=== PATIENT | male | born 1945 | race Caucasian/White ===

== ENCOUNTER 2022-11-05 20:01 | Emergency (ER) | payer MEDICARE, SELFPAY ==
[2022-11-05 20:06] VITALS: PULSE 82; RESP 18; TEMP 36.8; O2SAT 96; BMI 30.2
[2022-11-05 20:11] VITALS: BP 173/97; PULSE 68; RESP 18; O2SAT 99
[2022-11-05 20:16] VITALS: O2SAT 98
--- NOTE | 2022-11-05 20:16 | ECG_ITS ---
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
--- NOTE | 2022-11-05 20:23 | ED_ITS ---
Documented by User: RANDI Cotton 11/05/22 21:02 HPI - General Adult General Chief complaint: Abdominal Pain Stated complaint: INTESTINAL BLOCKAGE Time Seen by Provider: 11/05/22 20:11 Source: patient Mode of arrival: walk-in Limitations: no limitations History of Present Illness HPI narrative: Patient is a 77-year-old male presents to the Emergency Room with abrupt onset abdominal pain. 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 patient notes pain started tonight around 6:50pm lower abdomen similar to prior episodes. States he was able to have a small bowel movement. He has had nausea but no vomiting since. He denies any chest pain or shortness of breath. Related Data Allergies Allergy/AdvReac Type Severity Reaction Status Date / Time ketorolac [From Toradol] Allergy Verified 11/05/22 20:15 piperacillin [From Zosyn] Allergy turns Verified 11/05/22 20:15 purple tazobactam [From Zosyn] Allergy turns Verified 11/05/22 20:15 purple Review of Systems ROS Constitutional Denies: fever or chills Eyes Denies: change in vision or blurry vision Ears, nose, mouth, and throat Denies: throat pain Cardiovascular Denies: shortness of breath when lying down Respiratory Denies: shortness of breath Gastrointestinal Reports: abdominal pain, nausea and belching; Denies: vomiting or coffee grounds in vomit Genitourinary Denies: painful urination, urinary frequency or blood in urine Musculoskeletal Denies: back pain Integumentary/Breast Denies: rash Neurological Denies: headache Psychiatric Denies: anxiety Allergic/Immunologic Denies: hives Exam Narrative Exam Narrative: Nurses notes and vital signs reviewed and patient is not hypoxic. General: The patient appears well and in no apparent distress. noting pain lower abdomen. Skin: Warm, dry, no pallor noted.no evidence of rash, mild nonpitting edema in the lower legs Head: Normocephalic, atraumatic Neck: Supple, trachea mid-line, no tenderness, no lymphadenopathy Eye: Pupils are equal, round and reactive to light, EOMI Ears, Nose, Mouth, and Throat: external exam unremarkable Cardiovascular: Regular Rate and Rhythm Respiratory: Patient is in no distress, no accessory muscle use, lungs are clear to auscultation, no wheezing, rales or rhonchi. Chest Wall: no tenderness Back: non-tender, no CVA tenderness Musculoskeletal: normal ROM, no tenderness, no swelling GI: slightly hyperactive bowel sounds, tenderness lower abdomen, midline surgical incision well-healed with no obvious palpable hernia, no tenderness to palpationin the epigastric area no midline prominent pulsations., no masses appreciated. No rebound, guarding, or rigidity noted. Neurological: A&O x4 Psychiatric: Cooperative Constitutional Vital Signs - 24 hr 11/05/22 20:06 11/05/22 20:16 11/05/22 22:35 Temperature 98.2 F Pulse Rate Pulse Rate [Monitor] 82 Respiratory Rate 18 Blood Pressure Pulse Oximetry 96 98 98 Oxygen Delivery Method Room Air Room Air Room Air 11/05/22 20:11 Temperature Pulse Rate 68 Pulse Rate [Monitor] Respiratory Rate 18 Blood Pressure 173/97 H Pulse Oximetry 99 Oxygen Delivery Method Course Vital Signs Vital signs: Vital Signs Temperature 98.2 F 11/05/22 20:06 Pulse Rate 82 11/05/22 20:06 Respiratory Rate 18 11/05/22 20:06 Pulse Oximetry 96 11/05/22 20:06 Oxygen Delivery Method Room Air 11/05/22 20:06 Temperature 98.2 F 11/05/22 20:06 Pulse Rate 68 11/05/22 20:11 Respiratory Rate 18 11/05/22 20:11 Blood Pressure 173/97 H 11/05/22 20:11 Pulse Oximetry 98 11/05/22 22:35 Oxygen Delivery Method Room Air 11/05/22 22:35 Medical Decision Making MDM Narrative Medical decision making narrative: history of abdominal bowel resection and intermittent obstruction/ileus. Patient presents with acute onset symptoms this evening. Denies fevers or chills. States if he can relax his bowel symptoms sometimes resolve spontaneously. Patient medicated with Valium 2.5 mg, fentanyl 50 mg, Zofran 4 mg IV. Laboratory studies pending and plain-film x-rays obtained. Lab Data Labs: Lab Results 11/05/22 Range/Units 21:07 WBC 8.8 (4.0-11.0) 10^3/uL RBC 3.61 L (4.70-6.10) 10^6/uL Hgb 12.0 L (14.0-18.0) g/dL Hct 34.2 L (42.0-54.0) % MCV 94.7 H (80.0-94.0) fL MCH 33.2 (25.9-34.0) pg MCHC 35.1 (29.9-35.2) g/dL RDW 12.5 (11.0-15.0) % Plt Count 158 (150-450) 10^3/uL MPV 8.7 L (9.5-13.5) fL Neut % (Auto) 82.0 H (43.0-75.0) % Lymph % (Auto) 10.5 L (20.5-60.0) % [place] % (Auto) 5.1 (1.7-12.0) % Eos % (Auto) 1.7 (0.9-7.0) % Baso % (Auto) 0.2 (0.2-2.0) % Neut # (Auto) 7.2 H (1.4-6.5) 10^3/uL Lymph # (Auto) 0.9 L (1.2-3.8) 10^3/uL [place] # (Auto) 0.5 (0.3-0.8) 10^3/uL Eos # (Auto) 0.2 (0.0-0.7) 10^3/uL Baso # (Auto) 0.0 (0.0-0.1) 10^3/uL Sodium 140 (136-145) mmol/L Potassium 4.4 (3.5-5.1) mmol/L Chloride 107 (98-107) mmol/L Carbon Dioxide 21.4 (21.0-32.0) mmol/L Anion Gap 16.0 BUN 41.0 H (7.0-18.0) mg/dL Creatinine 3.18 H (0.70-1.30) mg/dL Est GFR ( Amer) 23 L (>=60) Est GFR (Non-Af Amer) 19 L (>=60) BUN/Creatinine Ratio 12.9 Glucose 178 H (74-106) mg/dL Lactate 1.4 (0.4-2.0) mmol/L Calcium 8.8 (8.5-10.1) mg/dL Total Bilirubin 0.4 (0.2-1.0) mg/dL AST 15 (15-37) U/L ALT 26 (16-63) U/L Troponin I High Sens 8.2 (4.0-76.1) pg/mL Total Protein 6.8 (6.4-8.2) g/dL Albumin 3.6 (3.4-5.0) g/dL Globulin 3.2 g/dL Albumin/Globulin Ratio 1.1 Lipase 47.0 L (73.0-393.0) U/L Discharge Plan Discharge Chief Complaint: Abdominal Pain Clinical Impression: Abdominal pain Instructions: Abdominal Pain (ED) Stand Alone Forms: Portal Instructions Referrals: TAURUS CHANG [Primary Care Provider] - 1 week Follow Up Appointments: follow up with your family doctor in next 2-3 days Documented by User: Paul Blas MD 11/05/22 23:33 HPI - General Adult General Chief complaint: Abdominal Pain Stated complaint: INTESTINAL BLOCKAGE Time Seen by Provider: 11/05/22 20:11 Related Data Allergies Allergy/AdvReac Type Severity Reaction Status Date / Time ketorolac [From Toradol] Allergy Verified 11/05/22 20:15 piperacillin [From Zosyn] Allergy turns Verified 11/05/22 20:15 purple tazobactam [From Zosyn] Allergy turns Verified 11/05/22 20:15 purple Exam Constitutional Vital Signs - 24 hr 11/05/22 20:06 11/05/22 20:16 11/05/22 22:35 Temperature 98.2 F Pulse Rate Pulse Rate [Monitor] 82 Respiratory Rate 18 Blood Pressure Pulse Oximetry 96 98 98 Oxygen Delivery Method Room Air Room Air Room Air 11/05/22 20:11 Temperature Pulse Rate 68 Pulse Rate [Monitor] Respiratory Rate 18 Blood Pressure 173/97 H Pulse Oximetry 99 Oxygen Delivery Method Course Vital Signs Vital signs: Vital Signs Temperature 98.2 F 11/05/22 20:06 Pulse Rate 82 11/05/22 20:06 Respiratory Rate 18 11/05/22 20:06 Pulse Oximetry 96 11/05/22 20:06 Oxygen Delivery Method Room Air 11/05/22 20:06 Temperature 98.2 F 11/05/22 20:06 Pulse Rate 68 11/05/22 20:11 Respiratory Rate 18 11/05/22 20:11 Blood Pressure 173/97 H 11/05/22 20:11 Pulse Oximetry 98 11/05/22 22:35 Oxygen Delivery Method Room Air 11/05/22 22:35 Medical Decision Making Medical Records Medical records narrative: care transferred at change of shift. Patient presented with abdominal pain. CT returned with findings of early vs partial SBO. Patient is feeling better at this time. he is passing gas and no longer has abdominal pain. His abdominal exam is normal and nontender. The problem seems to have resolved during his time in the department. He is discharged home to follow up with his doctor Lab Data Labs: Lab Results 11/05/22 Range/Units 21:07 WBC 8.8 (4.0-11.0) 10^3/uL RBC 3.61 L (4.70-6.10) 10^6/uL Hgb 12.0 L (14.0-18.0) g/dL Hct 34.2 L (42.0-54.0) % MCV 94.7 H (80.0-94.0) fL MCH 33.2 (25.9-34.0) pg MCHC 35.1 (29.9-35.2) g/dL RDW 12.5 (11.0-15.0) % Plt Count 158 (150-450) 10^3/uL MPV 8.7 L (9.5-13.5) fL Neut % (Auto) 82.0 H (43.0-75.0) % Lymph % (Auto) 10.5 L (20.5-60.0) % [place] % (Auto) 5.1 (1.7-12.0) % Eos % (Auto) 1.7 (0.9-7.0) % Baso % (Auto) 0.2 (0.2-2.0) % Neut # (Auto) 7.2 H (1.4-6.5) 10^3/uL Lymph # (Auto) 0.9 L (1.2-3.8) 10^3/uL [place] # (Auto) 0.5 (0.3-0.8) 10^3/uL Eos # (Auto) 0.2 (0.0-0.7) 10^3/uL Baso # (Auto) 0.0 (0.0-0.1) 10^3/uL Sodium 140 (136-145) mmol/L Potassium 4.4 (3.5-5.1) mmol/L Chloride 107 (98-107) mmol/L Carbon Dioxide 21.4 (21.0-32.0) mmol/L Anion Gap 16.0 BUN 41.0 H (7.0-18.0) mg/dL Creatinine 3.18 H (0.70-1.30) mg/dL Est GFR ( Amer) 23 L (>=60) Est GFR (Non-Af Amer) 19 L (>=60) BUN/Creatinine Ratio 12.9 Glucose 178 H (74-106) mg/dL Lactate 1.4 (0.4-2.0) mmol/L Calcium 8.8 (8.5-10.1) mg/dL Total Bilirubin 0.4 (0.2-1.0) mg/dL AST 15 (15-37) U/L ALT 26 (16-63) U/L Troponin I High Sens 8.2 (4.0-76.1) pg/mL Total Protein 6.8 (6.4-8.2) g/dL Albumin 3.6 (3.4-5.0) g/dL Globulin 3.2 g/dL Albumin/Globulin Ratio 1.1 Lipase 47.0 L (73.0-393.0) U/L Discharge Plan Discharge Chief Complaint: Abdominal Pain Clinical Impression: Abdominal pain Instructions: Abdominal Pain (ED) Stand Alone Forms: Portal Instructions Referrals: TAURUS CHANG [Primary Care Provider] - 1 week Follow Up Appointments: follow up with your family doctor in next 2-3 days
--- NOTE | 2022-11-05 21:06 | CT_ITS ---
The [address] [address] Patient Name: EUGENIO CREWS MRN: [id number] date: 1945 Sex: M Assigned Patient Location: ER Current Patient Location: .MAIN Accession/Order Number: [id number] Exam Date: 11/05/2022 21:30 Report Date: 11/05/2022 23:20 At the request of: POPEYE DE JESUS Procedure: CT abdomen pelvis wo con CT abdomen pelvis wo con: 11/05/2022 9:30 PM EDT CLINICAL HISTORY: 77 years old Male with abominable pain history of obstructions. TECHNIQUE: Axial CT images through the abdomen and pelvis are obtained without the intravenous administration of contrast. Coronal and sagittal reformations are also obtained. Dose reduction techniques were achieved by using automated exposure control and/or adjustment of mA and/or kV according to patient size and/or use of iterative reconstruction technique. COMPARISON: CT abdomen pelvis 05/10/2020. FINDINGS: The lung bases are clear with no dependent infiltrate or effusion. Without the use of IV or oral contrast the study is limited by incomplete evaluation of the blood vessels, solid visceral organs and bowel. The spleen and bilateral adrenal glands are unremarkable. Cholecystectomy clips are present with the gallbladder surgically absent. Mild dilatation of the common bile duct is again present 1.1 cm. Atrophic appearance of the pancreas with calcifications at the uncinate process persists, compatible with chronic pancreatitis. The bilateral kidneys are unremarkable with no renal calculi or hydronephrosis. Simple cyst of the right kidney measures 3.6 x 5.7 cm. The bilateral ureters demonstrate no gross abnormality or obstruction. The stomach is incompletely distended and grossly unremarkable. Small bowel anastomoses at the left upper abdomen is present with denervation dilatation with air-fluid leveling. The proximal small bowel demonstrates air-fluid leveling becoming abnormally dilated at the ileum measuring up to 3.7 cm. There is gradual tapering at the right abdomen with nondistention of the distal and terminal ileum. The appendix is visualized without inflammatory change. Colonic anastomoses at the transverse colon is present with mild denervation dilatation. Numerous diverticula of the sigmoid colon are present without focal inflammatory change. Trace free fluid is present in the pelvis. No free air. Fat-containing ventral abdominal wall hernia defect measuring 2 cm in transverse diameter. The bladder appears unremarkable. There is no evidence of aortic aneurysm. No enlarged lymph nodes are seen. The prostate gland is mildly enlarged at 3.5 x 5.4 cm in AP and transverse diameter. No acute compression fracture deformity or suspicious osseous abnormality. Discogenic degenerative change throughout the lumbar spine is present with numerous spinal canal or neural foraminal narrowings as well as facet arthropathy. Posterior disc herniation with severe narrowing at L4-L5 is of concern. Senescent changes of the hips are present with marginal spurrings. IMPRESSION: 1. Gradual abnormal distention of small bowel with air-fluid leveling measuring up to 3.7 cm with tapering at the mid to distal ileum in the right abdomen with nondistended distal and terminal ileum with similar distribution to the prior study, likely early complete versus partial small bowel obstruction. Trace free fluid, no free air. 2. Diverticulosis. 3. Small fat containing ventral hernia. 4. Simple renal cyst on the right. 5. Mild prostamegaly. Correlation with PSA is recommended. 6. Sequela of chronic pancreatitis with calcifications at the uncinate process. 7. Mild dilatation of the common bile duct unchanged likely secondary to cholecystectomy status. 8. Multilevel discogenic degenerative change of the spine with numerous neural foraminal and spinal canal narrowing with concern for herniation L4-L5 with severe spinal canal narrowing. Electronically authenticated by: KADIE KATHLEEN Date: 11/05/2022 23:20
[2022-11-05] MEDS: FENTANYL CITRATE/PF 100 MCG/2 ML VIAL 50 MCG IV (21:11)
[2022-11-05] MEDS: DICYCLOMINE HCL 20 MG/2 ML VIAL IM (21:12)
[2022-11-05] MEDS: ONDANSETRON PF 4 MG/2 ML VIAL IV (21:12)
[2022-11-05] MEDS: DIAZEPAM 5 MG/ML - 2 ML INJ SYRINGE 2.5 MG IV (21:12)
[2022-11-05] MEDS: 0.9 % SODIUM CHLORIDE 500 ML 999 ML IV (21:13)
[2022-11-05 21:17] LABS: Basophils Percent Auto 0.2 % (0.2-2.0); Eosinophils Absolute Auto 0.2 10^3/uL (0.0-0.7); Eosinophils Percent Auto 1.7 % (0.9-7.0); Hematocrit 34.2 % (42.0-54.0); Immature Granulocytes Abs Auto 0.04 10^3/uL (0.00-0.03); Immature Granulocytes Pct Auto 0.5 % (0.0-0.5); Lymphocytes Absolute Auto 0.9 10^3/uL (1.2-3.8); Lymphocytes Percent Auto 10.5 % (20.5-60.0); Mean Corpuscular HGB Conc 35.1 g/dL (29.9-35.2); Mean Corpuscular Hemoglobin 33.2 pg (25.9-34.0); Mean Corpuscular Volume 94.7 fL (80.0-94.0); Mean Platelet Volume 8.7 fL (9.5-13.5); Monocytes Absolute Auto 0.5 10^3/uL (0.3-0.8); Monocytes Percent Auto 5.1 % (1.7-12.0); Neutrophils Absolute Auto 7.2 10^3/uL (1.4-6.5); Platelet Count 158 10^3/uL (150-450); Red Blood Count 3.61 10^6/uL (4.70-6.10); Red Cell Distribution Width 12.5 % (11.0-15.0); White Blood Count 8.8 10^3/uL (4.0-11.0)
[2022-11-05 21:46] LABS: Lactate/Lactic Acid 1.4 mmol/L (0.4-2.0)
[2022-11-05 21:53] LABS: Alanine Aminotransferase 26 U/L (16-63); Albumin Globulin Ratio 1.1; Albumin Level 3.6 g/dL (3.4-5.0); Alkaline Phosphatase 111 U/L (46-116); Aspartate Amino Transferase 15 U/L (15-37); BUN Creatinine Ratio 12.9; Bilirubin Total 0.4 mg/dL (0.2-1.0); Calcium 8.8 mg/dL (8.5-10.1); Carbon Dioxide 21.4 mmol/L (21.0-32.0); Chloride 107 mmol/L (98-107); Estimated GFR (African America 23 (>=60); Estimated GFR (Non-African Ame 19 (>=60); Globulin 3.2 g/dL; Glucose 178 mg/dL (74-106); Potassium 4.4 mmol/L (3.5-5.1); Sodium 140 mmol/L (136-145); Total Protein 6.8 g/dL (6.4-8.2); Troponin I High Sensitivity 8.2 pg/mL (4.0-76.1)
[2022-11-05 22:35] VITALS: O2SAT 98
[2022-11-06] MEDS: HEPARIN SODIUM (PORCINE) PF LOCK FLUSH 500 UNIT/5 ML SYRINGE IV (00:15)
[2022-11-06 00:27] VITALS: O2SAT 99
--- NOTE | 2022-11-06 00:29 | PC.NURSE ---
Flushed with heparin before discontinued
[2022-11-06 00:30] VITALS: PULSE 76; RESP 16; O2SAT 99
== END 2022-11-06 00:32 | disposition home or self-care (01) ==
PROVIDERS: Personal Emergency Response Attendant; Emergency Provider Internal Medicine; PCP Internal Medicine
DX: R10.30 Lower abdominal pain, unspecified (principal)
CPT/HCPCS: 36415; 74176; 80053; 81001; 83605; 83690; 84484; 85025; 93005; 96372; 96374; 96375; 99285; J0500

== ENCOUNTER 2022-11-29 07:26 | Outpatient (OUT) | payer MEDICARE, SELFPAY ==
[2022-11-29 07:51] VITALS: BP 145/80; PULSE 80; RESP 20; TEMP 36.6; O2SAT 97
[2022-11-29] MEDS: HEPARIN SODIUM (PORCINE) PF LOCK FLUSH 500 UNIT/5 ML SYRINGE IV (08:20)
--- NOTE | 2022-11-29 08:51 | PC.NURSE ---
0751: Pt. to [facility] amb. per self. Seated in recliner. VSS. Using sterile technique, #19 gauge Flaherty needle used to access left ant. chest port. Flushes easily without redness or edema. Unable to aspirate blood after multiple saline flushes. 1 ml Heparin used and instilled into port. Allowed to dwell for approximately 3minutes. Unable to aspirate blood. Flaherty needle removed, port de-accessed. Using sterile technique, another #19 gauge Flaherty needle used to access port. Flushes easily, unable to aspirate blood. Pt. to supine position, left arm raised, head turned and instructed pt. to cough. No blood return with aspiration. Re-positioned needle under skin, no blood return with aspiration. Port de-accessed. No bleeding to site. Pt. relays leaving for vacation and will come back to try again in several weeks. Port site without edema. Slight bleeding to site. Covered with sterile 2x2. 0811: Pt d/c'd amb to home
== END 2022-11-29 07:27 | disposition home or self-care (01) ==
LOC: INF 07:28
PROVIDERS: PCP Internal Medicine; Visit Provider Internal Medicine
DX: Z45.2 Encounter for adjustment and management of vascular access device (principal)
CPT/HCPCS: G0463

== ENCOUNTER 2022-12-13 15:55 | Outpatient (OUT) | payer MEDICARE, SELFPAY ==
[2022-12-13] MEDS: HEPARIN SODIUM (PORCINE) PF LOCK FLUSH 500 UNIT/5 ML SYRINGE IV (16:00)
--- NOTE | 2022-12-13 16:23 | PC.NURSE ---
1553: Pt. to [facility] amb. for unscheduled port flush. Seated in recliner. Using sterile technique, #19 gauge Flaherty needle used to access left ant. chest port. Flushes easily with no visible edema, unable to aspirate blood after multiple flushes and re-positioning of Flaherty. Port de-accessed. Using sterile technique, #20 gauge Flaherty needle used to access port. Flushes easily, but unable to aspirate blood. 200 units Hepain instilled into port and allowed to dwell for 10minutes. 1615: Unable to aspirate blood. Port de-accessed. Trace bleeding from site. Covered with cottonball and tape. Pt. tolerated with minimal c/o. Informed pt. this RN will notify Dr. Chacon situation, pt relays understanding. Pt. d/c'd to home amb. 1616: Dr. Chacon's office notified of unable to aspirate from patient's port, speaker relays she will inform Dr. Chacon.
== END 2022-12-13 15:56 | disposition home or self-care (01) ==
LOC: INF 15:58
PROVIDERS: PCP Internal Medicine; Visit Provider Internal Medicine
DX: Z45.2 Encounter for adjustment and management of vascular access device (principal)
CPT/HCPCS: G0463

== ENCOUNTER 2023-03-02 10:50 | Outpatient (OUT) | payer MEDICARE, SELFPAY ==
[2023-03-02 11:11] LABS: SARS-CoV-2 Ag NEGATIVE (NEGATIVE)
[2023-03-02 15:54] LABS: SARS-CoV-2 NAA DETECTED (NOT DETECTE)
== END 2023-03-02 10:51 | disposition home or self-care (01) ==
LOC: LAB 10:53
PROVIDERS: PCP Internal Medicine; Visit Provider Internal Medicine
DX: U07.1 COVID-19 (principal)
CPT/HCPCS: 87635; 87811; U0003

== ENCOUNTER 2023-03-28 06:58 | Outpatient (OUT) | payer MEDICARE, SELFPAY ==
[2023-03-28 07:15] LABS: Basophils Percent Auto 0.3 % (0.2-2.0); Eosinophils Absolute Auto 0.2 10^3/uL (0.0-0.7); Eosinophils Percent Auto 2.8 % (0.9-7.0); Hematocrit 33.5 % (42.0-54.0); Hemoglobin 11.5 g/dL (14.0-18.0); Immature Granulocytes Abs Auto 0.02 10^3/uL (0.00-0.03); Immature Granulocytes Pct Auto 0.3 % (0.0-0.5); Lymphocytes Absolute Auto 1.2 10^3/uL (1.2-3.8); Lymphocytes Percent Auto 20.3 % (20.5-60.0); Mean Corpuscular HGB Conc 34.3 g/dL (29.9-35.2); Mean Corpuscular Hemoglobin 32.7 pg (25.9-34.0); Mean Corpuscular Volume 95.2 fL (80.0-94.0); Mean Platelet Volume 9.2 fL (9.5-13.5); Monocytes Absolute Auto 0.5 10^3/uL (0.3-0.8); Monocytes Percent Auto 9.2 % (1.7-12.0); Neutrophils Absolute Auto 3.9 10^3/uL (1.4-6.5); Neutrophils Percent Auto 67.1 % (43.0-75.0); Platelet Count 146 10^3/uL (150-450); Red Blood Count 3.52 10^6/uL (4.70-6.10); Red Cell Distribution Width 12.5 % (11.0-15.0); White Blood Count 5.8 10^3/uL (4.0-11.0)
[2023-03-28 08:09] LABS: Estimated Average Glucose 157 mg/dL; Glycohemoglobin A1C 7.1 % (4.5-6.2)
[2023-03-28 08:13] LABS: Anion Gap 15.9; BUN Creatinine Ratio 13.9; Calcium 8.1 mg/dL (8.5-10.1); Carbon Dioxide 21.2 mmol/L (21.0-32.0); Chloride 106 mmol/L (98-107); Chol HDL Ratio 3.1; Cholesterol 119 mg/dL (<=200); Estimated GFR (African America 24 (>=60); Estimated GFR (Non-African Ame 20 (>=60); Glucose 134 mg/dL (74-106); HDL Cholesterol 39 mg/dL (40-60); Potassium 4.1 mmol/L (3.5-5.1); Sodium 139 mmol/L (136-145); Triglycerides 165 mg/dL (<=150)
[2023-03-28 08:28] LABS: Prostate Specific Antigen Scrn 2.64 ng/mL (<=4.00)
== END 2023-03-28 06:59 | disposition home or self-care (01) ==
LOC: LAB 07:00
PROVIDERS: PCP Internal Medicine; Visit Provider Internal Medicine
DX: E78.2 Mixed hyperlipidemia (principal); I10 Essential (primary) hypertension; Z12.5 Encounter for screening for malignant neoplasm of prostate; D51.0 Vitamin B12 deficiency anemia due to intrinsic factor deficiency; E11.65 Type 2 diabetes mellitus with hyperglycemia
CPT/HCPCS: 36415; 80048; 80061; 83036; 85025; G0103

== ENCOUNTER 2023-08-06 08:00 | Outpatient (OUT) | payer MEDICARE, SELFPAY ==
--- OUTSIDE RECORDS SUMMARY | 2023-08-06 08:04 | XMS_ITS | CCD ---
Author Name Unknown Address [address] [place] [address] Organization [facility] Care Team Providers Care Clinical Transformation Specialist Name Role Phone Gerry Barton DO Primary Care Provider MARYJO KIDD Referring Unavailable GERRY BARTON Primary Care Unavailable KENDALL HONEYCUTT Attending Unavailable KINGS JOHNS Referring Unavailable GERRY BARTON Primary Care Unavailable YOLY DAVID Referring Unavailable GERRY BARTON Primary Care Unavailable GERRY BARTON Primary Care Physician [phone] MD Jenaro GUEVARA Attending Unavailable Ball, Gerry Unavailable BERNARDO, DR CONDON Primary Care Unavailable BALL, DR CONDON Consulting Unavailable BALL, DR CONDON Admitting Unavailable BALL, DR CONDON Attending Unavailable GRILLIS ., DR BLADIMIR Mann Attending Unavaila ble GRILLIS ., DR BLADIMIR Mann Admitting Unavaila ble GRILLIS ., DR BLADIMIR Mann Consulting Unavaila ble BALL, DR CONDON Primary Care Unavailable [place], DR ALONZO Hernandez Consulting Unavailable BALL, DR CONDON Primary Care Unavailable REQUEST, DR CHICAS LISTED Attending Unavaila ble BALL, DR CONDON Consulting Unavailable REQUEST, DR CHICAS LISTED Admitting Unavaila ble BALL, DR CONDON Consulting Unavailable BALL, DR CONDON Attending Unavailable BALL, DR CONDON Admitting Unavailable BALL, DR CONDON Primary Care Unavailable BALL, DR CONDON Consulting Unavailable BALL, DR CONDON Attending Unavailable BALL, DR CONDON Admitting Unavailable BALL, DR CONDON Primary Care Unavailable GRILLIS ., DR BLADIMIR Mann Attending Unavaila ble GRILLIS ., DR BLADIMIR Mann Admitting Unavaila ble BALL, DR CONDON Primary Care Unavailable BALL, DR CONDON Consulting Unavailable BALL, DR CONDON Admitting Unavailable BALL, DR CONDON Primary Care Unavailable BALL, DR CONDON Attending Unavailable BALL, DR CONDON Consulting Unavailable BALL, DR CONDON Admitting Unavailable BALL, DR CONDON Primary Care Unavailable BALL, DR CONDON Attending Unavailable BALL, DR CONDON Primary Care Unavailable BALL, DR CONDON Consulting Unavailable BALL, DR CONDON Admitting Unavailable BALL, DR CONDON Attending Unavailable BALL, DR CONDON Primary Care Unavailable GUEVARA ., DR DUCKWORTH Consulting Unavailable GUEVARA ., DR DUCKWORTH Attending Unavailable GUEVARA ., DR DUCKWORTH Admitting Unavailable BALL, DR CONDON Primary Care Unavailable WEST, DR ALONZO Hernandez Consulting Unavailable OLIVEROS, DR ALEXX Mann Attending Unavailable OLIVEROS, DR ALEXX Mann Admitting Unavailable OLIVEROS, DR ALEXX Mann Consulting Unavailable BALL, DR CONDON Consulting Unavailable BALL, DR CONDON Admitting Unavailable BALL, DR CONDON Attending Unavailable BALL, DR CONDON Primary Care Unavailable WEST, DR ALONZO Hernandez Consulting Unavailable HIGHLANDER, MARCELLA Araya Attending Unavailable HIGHLANDER, MARCELLA Araya Admitting Unavailable BALL, DR CONDON Primary Care Unavailable HIGHLANDER, MARCELLA Araya Consulting Unavailable BALL, DR CONDON Consulting Unavailable BALL, DR CONDON Attending Unavailable BALL, DR CONDON Admitting Unavailable BALL, DR CONDON Primary Care Unavailable GRILLIS ., DR BLADIMIR Mann Attending Unavaila ble GRILLIS ., DR BLADIMIR Mann Admitting Unavaila ble GRILLIS ., DR BLADIMIR Mann Consulting Unavaila ble BALL, DR CONDON Primary Care Unavailable MCCORNACK, QUIRINO Consulting Unavailable BALL, DR CONDON Consulting Unavailable BALL, DR CONDON Attending Unavailable BALL, DR CONDON Admitting Unavailable BALL, DR CONDON Primary Care Unavailable BALL, DR CONDON Admitting Unavailable BALL, DR CONDON Attending Unavailable BALL, DR CONDON Primary Care Unavailable BALL, DR CONDON Consulting Unavailable BALL, DR CONDON Attending Unavailable BALL, DR CONDON Admitting Unavailable BALL, DR CONDON Primary Care Unavailable BALL, DR CONDON Consulting Unavailable BALL, DR CONDON Admitting Unavailable BALL, DR CONDON Attending Unavailable BALL, DR CONDON Primary Care Unavailable PETITTTALIB Centeno Attending Unavailable DAVID, ROCKY Mann Attending Unavailable Allergies Allergy Classification Reported Allergen(s) Allergy Type Date of Onset Reaction(s) Facility (6 sources) Ketorolac; Translations: [KETOROLAC] Drug Allergy 09-24-19 21 Unknown, Unknown (qualifier value) [facility] (13 sources) Piperacillin / tazobactam; Translations: [PIPERACILLIN-TA ZOBACTAM] Drug Allergy 09-15-19 10 Rash [facility] (2 sources) Vorinostat; Translations: [vorinostat] Drug Allergy Unknown (qualifier value) [facility] (2 sources) Ketorolac; Translations: [Toradol] Drug Allergy [facility] Repository (1 source) Piperacillin / tazobactam Drug Allergy 01-15-20 16 [facility] (1 source) tazobactam Drug Allergy [facility] (3 sources) patient allergy list reviewed by nurse or physicia Propensity to adverse reactions 12-26-19 19 Comment:Done Takeacoder Other (3 sources) Allergies Reconciled Propensity to adverse reactions Unknown Takeacoder Other Medications Current Medications Medication Drug Class(es) Dates Sig (Normalized) Sig (Original) Aspir-81 81 MG (14 sources) take 1 tablet by mouth three times weekly Aspir-81 81 MG 1 tablet Orally THREE TIMES A WEEK for 30 day(s) Active aspirin 81 mg delayed release oral tablet (6 sources) Platelet Aggregation Inhibitor, Nonsteroidal Anti-inflammatory Drug Start: 07-25-2023 take 81 mg by mouth three times weekly Aspirin Active 81 MG PO 3 Times a week July 25, 2023 12:00am Start: 11-27-2019 aspirin Refill s(s) 0 Start Date: 11/27/19 Status: Ordered take 1 tablet by gonzalo once daily, then take 1 tablet by mouth every other day aspirin, enteric coated (ASPIRIN, ENTERIC COATED) 81 mg EC tablet Take 81 mg by mouth once daily. Takes every other day 0 Active Comment on above: Take 81 mg by mouth once daily. Takes every other day atorvastatin 10 mg oral tablet (15 sources) HMG-CoA Reductase Inhibitor Start: take 10 mg by mouth once daily at bedtime Atorvastatin Active 10 MG PO Daily at bedtime July 25, 2023 12:00am Start: 11-27-2019 atorvastatin O ral, Daily, Refills(s) 0 Start Date: 11/27/19 Status: Ordered Atorvastatin Stefan cium 10 MG TAKE 1 (ONE) TABLET DAILY IN EVENING Active Comment on above: Take 10 mg by mouth once daily. carvedilol 6.25 mg oral tablet (15 sources) alpha-Adrenergic Luli, beta-Adrenergic Luli Start: 07-25-2023 take 6.25 mg by mouth twice daily Carvedilol Active 6.25 MG PO Twice daily July 25, 2023 12:00am Start: 11-27-2019 carvedilol Ora l, Refills(s) 0 Start Date: 11/27/19 Status: Ordered Start: 06-15-2014 take 1 tablet by gonzalo th twice daily at mealtime carvedilol (COREG) 6.25 mg tablet Take 6.25 mg by mouth twice daily with meals. 0 06/15/2014 Active Comment on above: Take 6.25 mg by mout h twice daily with meals. Contour Next Test - (14 sources) Contour Next Charlee t - USE 1 STRIP TO TEST BLOOD SUGAR AT HOME 3 TIMES A DAY for 30 Active dutasteride 0.5 mg oral capsule (11 sources) 5-alpha Reductase Inhibitor take 1 capsule by mouth every twenty-four hours Avodart 0.5 MG 1 capsule Orally Once a day for 30 day(s) Active glimepiride 4 mg oral tablet (20 sources) Sulfonylurea Start: 4 take 4 mg by mouth once daily Glimepiride Active 4 MG PO Daily July 25, 2023 12:00am Start: 11-27-2019 glimepiride Or al, Daily, Refills(s) 0 Start Date: 11/27/19 Status: Ordered Start: 06-19-2012 take 1 tablet by gonzalo th twice daily at mealtime GLIMEPIRIDE 4 mg tablet Take 4 mg by mouth twice daily with meals. 0 06/19/2012 Active take 1 tablet by gonzalo th every twenty-four hours Glimepiride 4 MG 1 tablet Orally Once a day Active Glimepiride 4 MG TAKE 2 TABLETS BY MOUTH EVERY MORNING 30 MINUTES PRIOR TO BREAKFAST for 90 Active Comment on above: Take 4 mg by mouth t wice daily with meals. 3 ml insulin detemir 100 unt/ml pen injector (17 sources) Insulin Analog Start: 07-07-2022 Levemir FlexPen 100 UNIT/ML 12 units Subcutaneous Once daily Jul, Active Start: 11-27-2019 Levemir SubCut aneous, Refills(s) 0 Start Date: 11/27/19 Status: Ordered Start: 09-07-2015 LEVEMIR FLEXTO UCH 100 unit/mL (3 mL) inpn injection 12 Units. 0 09/07/2015 Active Comment on above: 12 Units. Levemir FlexPen 100 UNIT/ML (2 sources) Start: 3 Levemir FlexPen 100 UNIT/ML 12 units Subcutaneous Once daily for 90 days Jul, Active linagliptin 5 mg oral tablet (12 sources) Dipeptidyl Peptidase 4 Inhibitor Start: 4 take 1 tablet by mouth once daily Linagliptin (Tradjenta) 5 mg tablet Active 5 MG PO Daily July 25, 2023 12:00am Start: 11-27-2019 take 1 mg by mouth once daily Tradjenta mg, Oral, Daily, Refills(s) 0 Start Date: 11/27/19 Status: Ordered Start: 06-15-2013 take 1 tablet by gonzalo th once daily Tradjenta 5 mg oral tablet 30 EA, TAKE 1 TABLET BY MOUTH EVERY DAY, Refills(s) 0 Start Date: 04/03/22 Status: Ordered Comment on above: 5 mg once daily. lisinopril 2.5 mg oral tablet (15 sources) Angiotensin Converting Enzyme Inhibitor Start: 07-25-2023 take 2.5 mg by mouth once daily Lisinopril Active 2.5 MG PO Daily July 25, 2023 12:00am Start: 11-27-2019 lisinopril Ora l, Daily, Refills(s) 0 Start Date: 11/27/19 Status: Ordered take 1 tablet by gonzalo th once daily Lisinopril 2.5 MG TAKE 1 TABLET BY MOUTH EVERY DAY Active Comment on above: Take 2.5 mg by mouth once daily. Metformin & Diet Manage Prod 500 MG (11 sources) Metformin & Diet Manage Prod 500 MG as directed Orally TWICE DAILY Active molnupiravir 200 MG Oral Capsule [Lagevrio] (2 sources) Start: 3 take 4 capsules by mouth every twelve hours Molnupiravir 200 MG 4 capsules Orally every 12 hrs for 5 days Feb, Active Completed/Discontinued Medications Medication Drug Class(es) Dates Sig (Normalized) Sig (Original) B-12 - up to 1000 mcg (20 sources) Start: 07-03-2023 B-12 - up to 1000 mcg Jun, 1000 mcg Start: 03-13-2023 B-12 - up to 1 000 mcg Mar, 1000 mcg Start: 02-06-2023 B-12 - up to 1 000 mcg Feb, 1000 mcg Start: 01-01-2023 B-12 - up to 1 000 mcg Dec, 1000 mcg Start: 11-27-2022 B-12 - up to 1 000 mcg Nov, 1000 mcg Start: 08-28-2022 B-12 - up to 1 000 mcg Aug, 1000 mcg Start: 07-27-2022 B-12 - up to 1 000 mcg Jul, 1000 mcg Start: 06-26-2022 B-12 - up to 1 000 mcg Jun, 1000 mcg Problems Active Problems Problem Classification Problem Date Documented Date Episodic/Chronic Acquired foot deformities (8 sources) Acquired hammer toe of left foot; Translations: [Other hammer toe(s) (acquired), left foot] Chronic Acquired foot deformities (3 sources) Talipes planus; Translations: [Flat foot [pes 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), left foot] Episodic Acute bronchitis (4 sources) Acute bronchitis; Translations: [Acute bronchitis, unspecified] Onset: 02-23-2015 Episodic Anxiety disorders (6 sources) Posttraumatic stress disorder; Translations: [Posttraumatic stress disorder] Onset: 01-08-2017 Chronic Chronic kidney disease (7 sources) Chronic kidney disease, unspecified; Translations: [Chronic kidney disease stage 3] Onset: 12-17-2015 Chronic Chronic ulcer of skin (12 sources) Non-pressure chronic ulcer of unspecified part of right lower leg limited to breakdown of skin; Translations: [Chronic ulcer of foot] Onset: 09-09-2018 Resolved: 05-24-2020 Chronic Coagulation and hemorrhagic disorders (1 source) Blood coagulation disorder 12-01-2019 Chronic Complication of device; implant or graft (4 sources) Other specified complication of vascular prosthetic devices, implants and grafts, initial encounter; Translations: [OTH COMP VASC PROSTH DEV GRAFT INIT] Onset: 03-03-2022 Chronic Complication of device; implant or graft (6 sources) Blocked central line; Translations: [Other mechanical complication of infusion catheter, initial encounter] Onset: 02-21-2022 Episodic Deficiency and other anemia (4 sources) Acquired pancytopenia; Translations: [Other drug-induced pancytopenia] Onset: 09-07-2009 Chronic Deficiency and other anemia (16 sources) Pernicious anemia; Translations: [Vitamin B12 deficiency anemia due to intrinsic factor deficiency] 07-25-2023 Episodic Deficiency and other anemia (10 sources) Vitamin B12 deficiency anemia due to intrinsic factor deficiency; Translations: [Pernicious anemia] Episodic Diabetes mellitus with complications (20 sources) Type 2 diabetes mellitus with diabetic chronic kidney disease; Translations: [Hyperglycemia due to type 2 diabetes mellitus] Onset: 06-26-2016 Chronic Diabetes mellitus without complication (13 sources) Diabetes mellitus; Translations: [Type 2 diabetes mellitus without complications] Onset: 05-02-2019 05-05-2019 Chronic Diabetes mellitus without complication (1 source) Glycosuria 12-01-2019 Episodic Diseases of white blood cells (4 sources) Neutropenia; Translations: [Neutropenia, unspecified] Onset: 09-07-2009 Chronic Disorders of lipid metabolism (19 sources) Mixed hyperlipidemia; Translations: [Hyperlipidemia, unspecified] Onset: 11-23-2021 Chronic Essential hypertension (18 sources) Essential (primary) hypertension; Translations: [Essential hypertension] Onset: 11-23-2021 Chronic Genitourinary symptoms and ill-defined conditions (1 source) Proteinuria 12-01-2019 Episodic Hyperplasia of prostate (17 sources) Benign prostatic hyperplasia; Translations: [Benign prostatic hyperplasia without lower urinary tract symptoms] Onset: 09-21-2009 Chronic Hypertension with complications and secondary hypertension (1 source) Hypertensive chronic kidney disease with stage 1 through stage 4 chronic kidney disease, or unspecified chronic kidney disease; Translations: [HTN CKD W/STAGE 1-4 CKD/UNS CKD] Onset: 04-10-2022 Chronic Immunizations and screening for infectious disease (3 sources) Vaccination given; Translations: [Encounter for immunization] Episodic Intestinal obstruction without hernia (12 sources) Intestinal adhesions [bands], unspecified as to partial versus complete obstruction; Translations: [Intestinal adhesions [bands], with partial obstruction] Onset: 10-20-2016 Episodic Nausea and vomiting (9 sources) Nausea and vomiting; Translations: [Nausea & vomiting] Episodic Non-Hodgkin`s lymphoma (13 sources) Non-Hodgkin's lymphoma (clinical); Translations: [Non-Hodgkin lymphoma, unspecified, unspecified site] Onset: 08-27-2009 Chronic Osteoarthritis (7 sources) Arthritis; Translations: [Osteoarthritis] 12-01-2019 Chronic Other aftercare (5 sources) Encounter for adjustment and management of vascular access device; Translations: [ENC ADJUSTMENT AND MANAGEMENT VAD] Onset: 02-28-2022 Episodic Other aftercare (2 sources) Other machine long goods helper (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; Translations: [OTH SENIOR LIVING CURRENT DRUG THERAPY] Onset: 04-10-2022 Episodic Other aftercare (3 sources) Long-term current use of 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; Translations: [Other half-way (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] Episodic Other aftercare (4 sources) H/O: high risk medication; Translations: [Other machine long goods helper (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] Episodic Other connective tissue disease (1 source) Presence of unspecified orthopedic joint implant; Translations: [Presence of unspecified orthopedic joint implant] Chronic Other connective tissue disease (3 sources) H/O: musculoskeletal disease; Translations: [Personal history of other diseases of the musculoskeletal system and connective tissue] Episodic Other connective tissue disease (5 sources) History of osteomyelitis; Translations: [Personal history of other diseases of the musculoskeletal system and connective tissue] Episodic Other diseases of kidney and ureters (3 sources) Disorder of kidney and/or ureter; Translations: [Disorder of kidney and ureter, unspecified] Episodic Other diseases of veins and lymphatics (3 sources) Venous ulcer of lower extremity due to chronic peripheral venous hypertension; Translations: [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] Chronic Other diseases of veins and lymphatics (8 sources) Peripheral venous insufficiency; Translations: [Venous insufficiency (chronic) (peripheral)] 07-25-2023 Episodic Other diseases of veins and lymphatics (3 sources) Venous insufficiency (chronic) (peripheral); Translations: [Venous (peripheral) insufficiency, unspecified] Episodic Other injuries and conditions due to external causes (3 sources) History of fall; Translations: [History of falling] Episodic Other non-epithelial cancer of skin (20 sources) Basal cell carcinoma of skin of other part of trunk; Translations: [Carcinoma in situ of skin of scalp and neck] Onset: 11-23-2021 Episodic Other non-traumatic joint disorders (4 sources) Charcot's joint, left ankle and foot; Translations: [CHARCOTS JOINT LEFT ANKLE AND FO] Onset: 11-09-2021 Chronic Other non-traumatic joint disorders (11 sources) Arthropathy associated with a neurological disorder; Translations: [Charcot's joint, unspecified ankle and foot] Chronic Other nutritional; endocrine; and metabolic disorders (3 sources) Obese class I; Translations: [Body mass index 33.0-33.9, adult] Onset: 06-04-1959 Chronic Other nutritional; endocrine; and metabolic disorders (3 sources) Simple obesity ; Translations: [Other obesity due to excess calories] Onset: 06-04-1959 Chronic Other nutritional; endocrine; and metabolic disorders (3 sources) Obesity; Translations: [Obesity, unspecified] Chronic Other nutritional; endocrine; and metabolic disorders (10 sources) Body mass index 30+ - obesity; Translations: [Body mass index 30.0-30.9, adult] Onset: 06-04-1959 07-25-2023 Chronic Other nutritional; endocrine; and metabolic disorders (4 sources) Obesity caused by energy imbalance; Translations: [Other obesity due to excess calories] 07-25-2023 Chronic Other nutritional; endocrine; and metabolic disorders (1 source) Other obesity due to excess calories Chronic Other nutritional; endocrine; and metabolic disorders (1 source) Body mass index (BMI) 30.0-30.9, adult Chronic Other screening for suspected conditions (not mental disorders or infectious disease) (16 sources) Raised prostate specific antigen; Translations: [Elevated prostate specific antigen [PSA]] Onset: 03-03-2022 Episodic Other skin disorders (5 sources) Localized swelling, mass and lump, trunk; Translations: [LOCALIZD SWELLING MASS AND LUMP TRUNK] Onset: 02-07-2022 Episodic Other skin disorders (3 sources) Localized swelling, mass and lump, trunk; Translations: [Localized swelling, mass and lump, trunk] Episodic Other skin disorders (4 sources) Chest swelling; Translations: [Localized swelling, mass and lump, trunk] Episodic Peripheral and visceral atherosclerosis (3 sources) 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; Translations: [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, unspecified] Chronic Residual codes; unclassified (1 source) Other transplanted organ and tissue status; Translations: [OTH TRANSPLANTED ORGAN AND TISSUE STS] Onset: 05-18-2022 Chronic Residual codes; unclassified (1 source) Bone marrow transplant status; Translations: [BONE MARROW TRANSPLANT STATUS] Onset: 11-18-2021 Chronic Residual codes; unclassified (3 sources) Preventive procedure; Translations: [Encounter for other specified prophylactic measures] Episodic Unclassified (1 source) Asymptomatic microscopic hematuria 03-28-2021 Unclassified (3 sources) Long-term current use of 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; Translations: [Long-term (current) use of other medications] Onset: 12-06-2015 Past or Other Problems Problem Classification Problem Date Documented Da te Episodic/Chronic Deficiency and other anemia (3 sources) Anemia; Translations: [Anemia, unspecified] Resolved: 12-02-2019 Episodic Fever of unknown origin (4 sources) Fever; Translations: [Fever, unspecified] Onset: 09-07-2009 Episodic Neoplasms of unspecified nature or uncertain behavior (3 sources) Neoplasm of uncertain behavior of skin; Translations: [Neoplasm of uncertain behavior of skin] Onset: 12-25-2018 Episodic Non-Hodgkin`s lymphoma (4 sources) Personal history of non-Hodgkin lymphomas; Translations: [History of malignant lymphoma] Onset: 06-26-2016 Episodic Open wounds of head; neck; and trunk (3 sources) Laceration with foreign body of scalp, subsequent encounter; Translations: [Laceration with foreign body of scalp, subsequent encounter] Onset: 02-01-2018 Episodic Other aftercare (1 source) snf (current) use of oral hypoglycemic drugs; Translations: [WORKDAY MANAGER USE ORAL HYPOGLYCEMIC DX] Onset: 11-23-2021 Episodic Other connective tissue disease (3 sources) Pain in left foot; Translations: [Pain in left foot] Resolved: 05-24-2020 Episodic Other connective tissue disease (3 sources) Tear of right rotator cuff; Translations: [Unspecified rotator cuff tear or rupture of right shoulder, not specified as traumatic] Onset: 02-20-2017 Episodic Other eye disorders (3 sources) Vitreous degeneration; Translations: [Vitreous degeneration, unspecified eye] Resolved: 11-03-2020 Chronic Other non-traumatic joint disorders (3 sources) Arthralgia of the ankle and/or foot; Translations: [Pain in left ankle and joints of left foot] Resolved: 05-24-2020 Episodic Other non-traumatic joint disorders (3 sources) Shoulder joint pain; Translations: [Pain in joint, shoulder region] Onset: 02-09-2017 Episodic Other skin disorders (3 sources) Disorder of the skin and subcutaneous tissue, unspecified; Translations: [DISORDER SKIN AND SUBQ TISSUE UNS] Onset: 11-16-2021 Episodic Other upper respiratory infections (3 sources) Acute sinusitis; Translations: [Acute sinusitis, unspecified] Onset: 02-23-2015 Episodic Residual codes; unclassified (1 source) Acquired absence of other specified parts of digestive tract; Translations: [ACQ ABSENCE OTH PART DIGESTV TRACT] Onset: 11-23-2021 Episodic Viral infection (5 sources) COVID-19; Translations: [COVID-19] Onset: 05-17-2022 Results Test Name Value Interpretation Reference Range Facility [facility] 04-09-2022 Lab Reports [id number] Normal [facility] CBC AUTO DIFFon 04-05-2022 BASO # 0.0 103/ul Normal 0.0-0.[address] [facility] Comment on above: Performed By: #### C BC #### [facility] [address] [address] [address] Dave Duffy Basophils/100 WBC (Bld) 0.2 % Normal 0.2-2.[address] [facility] Comment on above: Performed By: #### C BC #### [facility] [address] [address] [address] Dave Duffy EO # 0.2 103/ul Normal 0.0-0.[address] [facility] Comment on above: Performed By: #### C BC #### [facility] [address] [address] [address] Dave Duffy Eosinophils/100 WBC (Bld) 2.5 % Normal 0.9-7.[address] [facility] Comment on above: Performed By: #### C BC #### [facility] [address] [address] [address] Dave Duffy Erythrocyte distribution width (RBC) [Ratio] 12.3 % Normal 11.0-15.[address] [facility] Comment on above: Performed By: #### C BC #### [facility] [address] [address] [address] Dave Duffy Hematocrit (Bld) [Volume fraction] 32.8 % Critically low 42.0-54.[address] [facility] Comment on above: Performed By: #### C BC #### [facility] [address] [address] [address] Dave Duffy Hemoglobin (Bld) [Mass/Vol] 11.4 g/dL Critically low 14.0-18.[address] [facility] Comment on above: Performed By: #### C BC #### [facility] [address] [place] [address] Dr. Dave Duffy IG # 0.03 10e3/ul Normal 0.00-0.[address] [facility] Comment on above: Performed By: #### C BC #### [facility] [address] [place] [address] Dr. Dave Duffy IG % 0.5 % Normal 0.0-0.[address] [facility] Comment on above: Performed By: #### C BC #### [facility] [address] [place] [address] Dr. Dave Duffy LYMPH # 1.2 103/ul Normal 1.2-3.[address] [facility] Comment on above: Performed By: #### C BC #### [facility] [facility] [address] [place] [address] Dr. Dave Duffy Lymphocytes/100 WBC (Bld) 18.9 % Critically low 20.5-60.[address] [facility] Comment on above: Performed By: #### C BC #### [facility] [address] [place] [address] Dr. Dave Duffy MANUAL DIFF REQ NO Normal [facility] Comment on above: Performed By: #### C BC #### [facility] [address] [place] [address] Dr. Dave Duffy MCH (RBC) [Entitic mass] 32.8 pg Normal 25.9-34.[address] [facility] Comment on above: Performed By: #### C BC #### [facility] [address] [place] [address] Dr. Dave Duffy MCHC (RBC) [Mass/Vol] 34.8 g/dL Normal 29.9-35.[address] [facility] Comment on above: Performed By: #### C BC #### [facility] [address] [place] [address] Dr. Dave Duffy MCV (RBC) [Entitic vol] 94.3 fL Critically high 80.0-94.[address] [facility] Comment on above: Performed By: #### C BC #### [facility] [address] [address] [address] Dave Duffy MONO # 0.5 103/ul Normal 0.3-0.8 [facility] Comment on above: Performed By: #### C BC #### [facility] [address] [address] [address] Dave Duffy Monocytes/100 WBC (Bld) 8.9 % Normal 1.7-12.[address] [facility] Comment on above: Performed By: #### C BC #### [facility] [address] [address] [address] Dave Duffy NEUT # 4.2 103/ul Normal 1.4-6.[address] [facility] Comment on above: Performed By: #### C BC #### [facility] [address] [address] [address] Dave Duffy Neutrophils/100 WBC (Bld) 69.0 % Normal 43.0-75.[address] [facility] Comment on above: Performed By: #### C BC #### [facility] [address] [address] [address] Dave Duffy Platelet mean volume (Bld) [Entitic vol] 8.7 fL Critically low 9.5-13.[address] [facility] Comment on above: Performed By: #### C BC #### [facility] [address] [address] [address] Dave Duffy PLT 166 103/ul Normal 150-450 [facility] Comment on above: Performed By: #### C BC #### [facility] [address] [address] [address] Dave Duffy RBC 3.48 106/ul Critically low 4.70-6.10 [facility] Comment on above: Performed By: #### C BC #### [facility] [address] [address] [address] Dave Duffy WBC 6.1 103/ul Normal 4.0-11.0 [facility] Comment on above: Performed By: #### C BC #### [facility] [address] [address] [address] Dave Duffy LIPID PROFILEon 04-05-2022 CHOL-HDL RATIO NORM SEE BELOW Normal [facility] Comment on above: Result Comment: 3.3 - 4.4 LOW RISK 4.4 - 7.1 AVERAGE RISK 7.1 - 11.0 MODERATE RISK >11.0 HIGH RISK Performed By: #### C MP, LIPID #### [facility] [address] [address] [address] Dave Duffy Cholesterol [Mass/Vol] 106 mg/dL Normal <=[address] [facility] Comment on above: Performed By: #### C MP, LIPID #### [facility] [address] [place] [address] Dr. Dave Duffy Cholesterol in HDL [Mass/Vol] 36 mg/dL Critically low 40-[address] [facility] Comment on above: Performed By: #### C MP, LIPID #### [facility] [address] [place] [address] Dr. Dave Duffy Cholesterol in LDL [Mass/Vol] 43.4 mg/dL Normal [facility] Comment on above: Performed By: #### C MP, LIPID #### [facility] [address] [place] [address] Dr. Dave Duffy Cholesterol.total/Cho lesterol in HDL [Mass ratio] 2.9 {ratio} Normal [facility] Comment on above: Performed By: #### C MP, LIPID #### [facility] [address] [place] [address] Dr. Dave Duffy HDL NORMAL > or = 60 mg/dl - LOW CARDIOVASCULAR RISK <40 mg/dl - HIGH CARDIOVASCULAR RISK Normal [facility] Comment on above: Performed By: #### C MP, LIPID #### [facility] [address] [place] [address] Dr. Dave Duffy LDL CALC NORMAL SEE BELOW Normal [facility] Comment on above: Result Comment: <100 mg/dl OPTIMAL 100 - 129 mg/dl NEAR OR ABOVE OPTIMAL 130 - 159 mg/dl BORDERLINE HIGH 160 - 189 mg/dl HIGH >190 mg/dl VERY HIGH Performed By: #### C MP, LIPID #### [facility] [address] [address] [address] Dave Duffy Triglyceride [Mass/Vol] 133 mg/dL Normal <=[address] [facility] Comment on above: Performed By: #### C MP, LIPID #### [facility] [address] [address] [address] Dave Duffy VLDL CALC 26.6 mg/dL Normal [facility] Comment on above: Performed By: #### C MP, LIPID #### [facility] [address] [place] [address] Dr. Dave Duffy MICROALBUMIN, RAND URon 11 mALB 19.6 mg/L Normal <=30.[address] [facility] Comment on above: Performed By: #### M ALBR #### [facility] [address] [place] [address] Dr. Dave Duffy PROF 14(COMP METB)on 022 Albumin [Mass/Vol] 3.6 g/dL Normal 3.4-5.0 [facility] Comment on above: Performed By: #### C MP, LIPID #### [facility] [address] [place] [address] Dr. Dave Duffy Albumin/Globulin [Mass ratio] 1.2 {ratio} Normal [facility] Comment on above: Performed By: #### C MP, LIPID #### [facility] [address] [place] [address] Dr. Dave Duffy ALP [Catalytic activity/Vol] 102 U/L Normal 46-[address] [facility] Comment on above: Performed By: #### C MP, LIPID #### [facility] [address] [place] [address] Dr. Dave Duffy ALT [Catalytic activity/Vol] 22 U/L Normal 16-[address] [facility] Comment on above: Performed By: #### C MP, LIPID #### [facility] [address] [place] [address] Dr. Dave Duffy Anion gap [Moles/Vol] 10.8 mmol/L Normal [facility] Comment on above: Performed By: #### C MP, LIPID #### [facility] [address] [address] [address] Dave Duffy AST [Catalytic activity/Vol] 13 U/L Critically low 15-[address] [facility] Comment on above: Performed By: #### C MP, LIPID #### [facility] [address] [address] [address] Dave Duffy Bilirubin [Mass/Vol] 0.5 mg/dL Normal 0.2-1.[address] [facility] Comment on above: Performed By: #### C MP, LIPID #### [facility] [address] [address] [address] Dave Duffy Calcium [Mass/Vol] 8.6 mg/dL Normal 8.5-10.1 [facility] Comment on above: Performed By: #### C MP, LIPID #### [facility] [address] [address] [address] Dave Duffy Chloride [Moles/Vol] 107 mmol/L Normal 98-[address] [facility] Comment on above: Performed By: #### C MP, LIPID #### [facility] [address] [address] [address] Dave Duffy CO2 [Moles/Vol] 25.7 mmol/L Normal 21.0-32.0 [facility] Comment on above: Performed By: #### C MP, LIPID #### [facility] [address] [address] [address] Dave Duffy Creatinine [Mass/Vol] 2.99 mg/dL Critically high 0.70-1.[address] [facility] Comment on above: Performed By: #### C MP, LIPID #### [facility] [address] [address] [address] Dave Duffy EGFR-AF TURKISH 25 mL/min/1.73m2 Critically low >=[address] [facility] Comment on above: Performed By: #### C MP, LIPID #### [facility] [address] [address] [address] Dave Duffy EGFR-NON AF TURKISH 21 mL/min/1.73m2 Critically low >=[address] [facility] Comment on above: Performed By: #### C MP, LIPID #### [facility] [address] [address] [address] Dave Duffy Globulin (S) [Mass/Vol] 3.1 g/dL Normal [facility] Comment on above: Performed By: #### C MP, LIPID #### [facility] [address] [address] [address] Dave Duffy Glucose [Mass/Vol] 106 mg/dL Normal 74-106 [facility] Comment on above: Performed By: #### C MP, LIPID #### [facility] [address] [address] [address] Dave Duffy Potassium [Moles/Vol] 4.5 mmol/L Normal 3.5-5.[address] [facility] Comment on above: Performed By: #### C MP, LIPID #### [facility] [address] [address] [address] Dave Duffy Protein [Mass/Vol] 6.7 g/dL Normal 6.4-8.2 [facility] Comment on above: Performed By: #### C MP, LIPID #### [facility] [address] [address] [address] Dave Duffy Sodium [Moles/Vol] 139 mmol/L Normal 136-145 [facility] Comment on above: Performed By: #### C MP, LIPID #### [facility] [address] [address] [address] Dave Duffy Urea nitrogen [Mass/Vol] 43.0 mg/dL Critically high 7.0-18.[address] [facility] Comment on above: Performed By: #### C MP, LIPID #### [facility] [address] [address] [address] Dave Duffy Urea nitrogen/Creatinine [Mass ratio] 14.4 mg/mg Normal [facility] Comment on above: Performed By: #### C MP, LIPID #### [facility] [address] [address] [address] Dave Duffy Ambulatory Visit Summaryon 1 Ambulatory Visit Summary EUGENIO CREWS :1945 Visit Date:04/03/2022 Ambulatory Visit Instructions Your Diagnosis BPH with urinary obstruction Elevated PSA Tests Performed Urnls Dip Stick Auto w/o Microscopy POC 71076 Your Care Team Attending Physician - Jenaro GUEVARA MD Primary Care Physician - GERYR BARTON DO This Is Your Medications List Contact prescribing physician if questions or concerns aspirin atorvastatin carvedilol glimepiride insulin detemir (Levemir) linagliptin (Tradjenta 5 mg oral tablet) linagliptin (Tradjenta) lisinopril Procedures Performed Cystoscopy (06/15/2014), Urodynamics (06/26/2012), Cystoscopy (06/14/2012), Cholecystectomy (2011), Colonoscopy, EGD - Esophagogastroduoden oscopy, Laparoscopy, Partial resection of colon, Total knee arthroplasty, Transurethral biopsy prostate, TURP - Transurethral resection of prostate. Discharge Vitals Heart Rate (Peripheral) 76 Respiratory Rate 16 Blood Pressure 140/82 Height 187 cm Height 74 in Weight 108 kg Weight 237.6 lb BMI 30.88 What to do next You Need to Schedule the Following Appointments Follow Up with JADE DOYLE, Jenaro Roberto, BERRY When: Only if needed Where: [facility] [address], [place] [address]- [phone] Medications What How Much When Instructions Unchanged aspirin Contact prescribing physician if questions or concerns Unchanged atorvastatin Every day Contact prescribing physician if questions or concerns Unchanged carvedilol Contact prescribing physician if questions or concerns Unchanged glimepiride Every day Contact prescribing physician if questions or concerns Unchanged insulin detemir (Levemir) Contact prescribing physician if questions or concerns Unchanged linagliptin (Tradjenta 5 mg oral tablet) 30 EA, TAKE 1 TABLET BY MOUTH EVERY DAY Contact prescribing physician if questions or concerns Unchanged linagliptin (Tradjenta) Every day Contact prescribing physician if questions or concerns Unchanged lisinopril Every day Contact prescribing physician if questions or concerns Test Results Urnls Dip Stick Auto w/o Microscopy POC 88512 (04/03/2022) Bilirubin Urine Dipstick - Negative Blood Urine Dipstick - Trace-intact Glucose Urine Dipstick - 2+ 500 mg/dl Ketones Urine Dipstick - Trace - 5 mg/dl Leukocytes Urine Dipstick - Negative Nitrite Urine Dipstick - Negative Protein Urine Dipstick - 2+ (100 mg/dl) Specific [place] Urine Dipstick - >=1.030 Urine Appearance Urine Dipstick - Clear Urine Color Urine Dipstick - Yellow Urobilinogen Urine Dipstick - Normal 0.2-1 EU/dl pH Urine Dipstick - 5 Allergies Toradol (Unknown) Zolinza (Unknown) Problems Ongoing - Any problem that you are currently receiving treatment for. Arthritis Asymptomatic microscopic hematuria Bleeding disorder BPH with urinary obstruction Diabetes Elevated PSA Glucosuria Lymphoma Protein in urine Education Materials Prostate-Specific Antigen Test Why am I having this test? The prostate-specific antigen (PSA) test is a screening test for prostate cancer. It can identify early signs of prostate cancer, which may allow for more effective treatment. Your health care provider may recommend that you have a PSA test starting at age 40 or that you have one earlier or later, depending on your risk factors for prostate cancer. You may also have a PSA test: ? To monitor treatment of prostate cancer. ? To check whether prostate cancer has returned after treatment. ? If you have signs of other conditions that can affect PSA levels, such as: ? An enlarged prostate that is not caused by cancer (benign prostatic hyperplasia, BPH). This condition is very common in older men. ? A prostate infection. What is being tested? This test measures the amount of PSA in your blood. PSA is a protein that is made in the prostate. The prostate naturally produces more PSA as you age, but very high levels may be a sign of a medical condition. What kind of sample is taken? A blood sample is required for this test. It is usually collected by inserting a needle into a blood vessel or by sticking a finger with a small needle. Blood for this test should be drawn before having an exam of the prostate. How do I prepare for this test? Do not ejaculate starting 24 hours before your test, or as long as told by your health care provider. Tell a health care provider about: ? Any allergies you have. ? All medicines you are taking, including vitamins, herbs, eye drops, creams, and yahl-vhu-bkyovnu medicines. This also includes: ? Medicines to assist with hair growth, such as finasteride. ? Any recent exposure to a medicine called diethylstilbestrol. ? Any blood disorders you have. ? Any recent procedures you have had, especially any procedures involving the prostate or rectum. ? Any medical conditions you have. ? An (more content not included)... Normal [facility] Patient Educationon 04-03-20 22 Patient Education Oncology Prostate-Specific Antigen Test Why am I having this test? The prostate-specific antigen (PSA) test is a screening test for prostate cancer. It can identify early signs of prostate cancer, which may allow for more effective treatment. Your health care provider may recommend that you have a PSA test starting at age 40 or that you have one earlier or later, depending on your risk factors for prostate cancer. You may also have a PSA test: ? To monitor treatment of prostate cancer. ? To check whether prostate cancer has returned after treatment. ? If you have signs of other conditions that can affect PSA levels, such as: ? An enlarged prostate that is not caused by cancer (benign prostatic hyperplasia, BPH). This condition is very common in older men. ? A prostate infection. What is being tested? This test measures the amount of PSA in your blood. PSA is a protein that is made in the prostate. The prostate naturally produces more PSA as you age, but very high levels may be a sign of a medical condition. What kind of sample is taken? A blood sample is required for this test. It is usually collected by inserting a needle into a blood vessel or by sticking a finger with a small needle. Blood for this test should be drawn before having an exam of the prostate. How do I prepare for this test? Do not ejaculate starting 24 hours before your test, or as long as told by your health care provider. Tell a health care provider about: ? Any allergies you have. ? All medicines you are taking, including vitamins, herbs, eye drops, creams, and ainz-tno-iokqvjg medicines. This also includes: ? Medicines to assist with hair growth, such as finasteride. ? Any recent exposure to a medicine called diethylstilbestrol. ? Any blood disorders you have. ? Any recent procedures you have had, especially any procedures involving the prostate or rectum. ? Any medical conditions you have. ? Any recent urinary tract infections (UTIs) you have had. How are the results reported? Your test results will be reported as a value that indicates how much PSA is in your blood. This will be given as nanograms of PSA per milliliter of blood (ng/mL). Your health care provider will compare your results to normal ranges that were established after testing a large group of people (reference ranges). Reference ranges may vary among labs and hospitals. PSA levels vary from person to person and generally increase with age. Because of this variation, there is no single PSA value that is considered normal for everyone. Instead, PSA reference ranges are used to describe whether your PSA levels are considered low or high (elevated). Common reference ranges are: ? Low: 0?2.5 ng/mL. ? Slightly to moderately elevated: 2.6?10.0 ng/mL. ? Moderately elevated: 10.0?19.9 ng/mL. ? Significantly elevated: 20 ng/mL or greater. Sometimes, the test results may report that a condition is present when it is not present (false-positive result). What do the results mean? A test result that is higher than 4 ng/mL may mean that you are at an increased risk for prostate cancer. However, a PSA test by itself is not enough to diagnose prostate cancer. High PSA levels may also be caused by the natural aging process, prostate infection, or BPH. PSA screening cannot tell you if your PSA is high due to cancer or a different cause. A prostate biopsy is the only way to diagnose prostate cancer. A risk of having the PSA test is diagnosing and treating prostate cancer that would never have caused any symptoms or problems (overdiagnosis and overtreatment). Talk with your health care provider about what your results mean. Questions to ask your health care provider Ask your health care provider, or the department that is doing the test: ? When will my results be ready? ? How will I get my results? ? What are my treatment options? ? What other tests do I need? ? What are my next steps? Summary ? The prostate-specific antigen (PSA) test is a screening test for prostate cancer. ? Your health care provider may recommend that you have a PSA test starting at age 40 or that you have one earlier or later, depending on your risk factors for prostate cancer. ? A test result that is higher than 4 ng/mL may mean that you are at an increased risk for prostate cancer. However, elevated levels can be caused by a number of conditions other than prostate cancer. ? Talk with your health care provider about what your results mean. This information is not intended to replace advice given to you by your health care provider. Make sure you discuss any questions you have with your health care provider. Document Released: 06/23/2005 Document Revised: 05/03/2018 Document Reviewed: 02/25/2018 [employer] Patient Education ? 2019 [employer]. 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 S/P TURP 08/2012 & NEG TRUS/BX in 2008. Current PSA done 03/03/22 is 2.93Pt denies all urinary complaints. Does get up at 2:30am every night to void. History of Present Illness reviewed medical history, UA, PSA no associated fever, chills, pain or blood. Review of Systems PHQ Score Initial Depression Screen Score: 0 ROS - Provider Constitutional: denies weight loss, denies hot flashes. Eyes: denies eye problems. Gastrointestinal: denies nausea, denies vomiting. Cardiovascular: denies chest pain or angina. Integumentary: no dryness Musculoskeletal: denies musculoskeletal symptoms. ENMT: denies otolaryngeal symptoms. Respiratory: no shortness of breath. Heme/Lymph: denies easy bleeding tendency, denies easy bruising tendency. Psychiatric: no confusion, no anxiety. Genitourinary: denies dysuria, denies hematuria, denies discharge, denies urinary frequency, denies urinary hesitancy, denies nocturia, denies incontinence, denies genital sores, denies decreased libido, and denies erectile dysfunction. Physical Exam Vitals & Measurements HR: 76(Peripheral) RR: 16 BP: 140/82 HT: 74 in HT: 187 cm WT: 108 kg WT: 237.6 lb BMI: 30.88 General Appearance: alert, no distress, well nourished, well developed male. Genitourinary: normal scrotum, normal testes, normal urethra, normal epididymis, normal vas deferens/spermatic cord. Flank Pain: none. Bladder: nonpalpable. Assessment/Plan 1. 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 Patient gets up 1x per night. good urinary stream and he's voiding well. Patient not currently on any BPH medications at this time. 2. Elevated PSA (R97.20: Elevated prostate specific antigen [PSA]) TRUS with biopsy negative done in 2008. Most recent PSA done 03-03-2022 2.93 Previous level of 2.02 done 02/04/21. Discussed with patient stopping annual PSA checks due to age and stability, Patient is in agreement with this plan. Patient will return PRN. Follow-up With When Contact Information JADE DOYLE, Jenaro Roberto, URL Only if needed [facility] [address], [place] [address] [phone] Additional Instructions: Patient Education Prostate-Specific Antigen Test I, Temi Cervantes, personally scribed for Dr. Guevara on 04/03/2022 13:31:35. . Documentation recorded by the scribe, Temi Cervantes, accurately reflects the services(s) I performed and decisions made by me. Authenticated by Dr. Guevara on 04/03/2022 13:39:59. Problem List/Past Medical History Ongoing Arthritis Asymptomatic microscopic hematuria Bleeding disorder BPH with urinary obstruction Diabetes Elevated PSA Glucosuria Lymphoma Protein in urine Historical No qualifying data Procedure/Surgical History Cystoscopy (06/15/2014), Urodynamics (06/26/2012), Cystoscopy (06/14/2012), Cholecystectomy (2011), Colonoscopy, EGD - Esophagogastroduoden oscopy, Laparoscopy, Partial resection of colon, Total knee arthroplasty, Transurethral biopsy prostate, TURP - Transurethral resection of prostate. Medications aspirin atorvastatin, Oral, Daily carvedilol, Oral glimepiride, Oral, Daily Levemir, SubCutaneous lisinopril, Oral, Daily Tradjenta, Oral, Daily Tradjenta 5 mg oral tablet Allergies Toradol (Unknown) Zolinza (Unknown) Social History Alcohol - Denies Alcohol Use, 11/27/2019 Tobacco - Denies Tobacco Use, 11/27/2019 Never (less than 100 in lifetime) Tobacco Use:. Cigarettes, 04/03/2022 Family History Diabetes mellitus type 2: Mother. Heart disease: Mother and Father. Liver disease: Father. Lab Results Ambulatory Point of Care Results Bilirubin Urine Dipstick: Negative (04/03/22 12:35:00) Blood Urine Dipstick: Trace-intact (04/03/22 12:35:00) Glucose Urine Dipstick: 2+ 500 mg/dl (04/03/22 12:35:00) Ketones Urine Dipstick: Trace - 5 mg/dl (04/03/22 12:35:00) Leukocytes Urine Dipstick: Negative (04/03/22 12:35:00) Nitrite Urine Dipstick: Negative (04/03/22 12:35:00) Protein Urine Dipstick: 2+ (100 mg/dl) (04/03/22 12:35:00) Specific [place] Urine Dipstick: >=1.030 (04/03/22 12:35:00) Urine Appearance Urine Dipstick: Clear (04/03/22 12:35:00) Urine Color Urine Dipstick: Yellow (04/03/22 12:35:00) Urobilinogen Urine Dipstick: Normal 0.2-1 EU/dl (04/03/22 12:35:00) pH Urine Dipstick: 5 (04/03/22 12:35:00) Normal [facility] Comment on above: Result Comment: Elec tronically Signed By: Jenaro GUEVARA MD\.br\Date and Time Signed: 04/03/22 13:40 EDT\.br\Electronically Co-Signed By: Temi Cervantes\.br\Date and Time Co-Signed: 04/03/22 13:31 EDT XR FLUORO < 1 HRon 2 XR FLUORO < 1 HR EXAMINATION: XR FLUORO < 1 HR HISTORY: Disorder of cardiovascular prostheses and implants COMPARISON: No relevant comparison available. FLUOROSCOPY TIME: Fluoro time measures 1.1 minutes of fluoroscopy and 5 images were obtained. TECHNIQUE: Standard level fluoroscopic mode of operation utilized. FINDINGS: Injection into the left Port-A-Cath demonstrates patency. There is slight irregularity of the lumen of the tubing just below the level of the clavicle as seen on image #6. Additional contrast was injected and images demonstrated small amount of contrast leakage site of the tubing at the site. IMPRESSION: Failure of the Port-A-Cath tubing just below the level of the clavicle Electronically authenticated by: ALONZO MADRIGAL Date: 2022-03-05 11:[address] [facility] CNPNon 02-24-2022 CNPN Telephone (HEMASA) EUGENIO CREWS ([id number]) 1945 TRN Date Time Provider Department 02/24/22 ROSELYN PAGE During your visit today, we recorded the following information about you: ARIELLE Fuentes 02/24/2022 12:09 PM Signed Patient appears on the First Time Treatment List for a non-oncology treatment. No psychosocial assessment is indicated. CAROLINA Fuentes Allergies As of Date: 02/24/2022 Noted Allergy Reaction PIPERACILLIN-TAZOBAC QUINN 09/14/2009 2 - Rash Comments: Pt developed severe rash after zosyn initiated KETOROLAC 09/23/2020 16 - Unknown Comments: kidney killer Date Reviewed: 02/24/2022 Reviewed by: Yoly David PA-C - Fully Assessed Reason for Visit: Social Work Services [507] Prescriptions as of 02/24/2022 - atorvastatin (LIPITOR) 10 mg tablet Take 10 mg by mouth once daily. - LEVEMIR FLEXTOUCH 100 unit/mL (3 mL) inpn injection 12 Units. - lisinopril 2.5 mg tablet Take 2.5 mg by mouth once daily. - aspirin, enteric coated (ASPIRIN, ENTERIC COATED) 81 mg EC tablet Take 81 mg by mouth once daily. Takes every other day - carvedilol (COREG) 6.25 mg tablet Take 6.25 mg by mouth twice daily with meals. - TRADJENTA 5 mg tab 5 mg once daily. - GLIMEPIRIDE 4 mg tablet Take 4 mg by mouth twice daily with meals. Meds Comments as of 09/01/2009: Patient states the dosage is 25 mg for the Thorazine. 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] 09/07/2009 Fever [R50.9] 09/07/2009 BPH (Benign Prostatic Hyperplasia) [N40.0] 09/21/2009 SBO (small bowel obstruction) (HCC) [K56.609] 05/02/2019 05/05/2019 Diabetes mellitus (HCC) [E11.9] 05/02/2019 Small bowel obstruction (HCC) [K56.609] 05/02/2019 05/05/2019 Central line clotted (HCC) [T82.594A] 02/21/2022 Encounter Status:Closed by ROSELYN PAGE on 02/24/22 [facility] Tele[facility] (HEMTSA) EUGENIO CREWS ([id number]) 1945 M TRN Date Time Provider Department 02/23/22 EAMON BUSTAMANTE During your visit today, we recorded the following information about you: Eamon Bustamante RN 02/23/2022 4:42 PM Signed Patient of Dr Kidd who is scheduled for cath vernell 02/27/22 per prior phone encounter, can you please place orders. Thanks! DARELL Parker PA-C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 11-27-2022 Nursing evaluation o f patient and report Gerry Barton [facility] Start: 10-18-2022 End: 10-18-[address] GERRY BARTON Facility:[facility] Start: 09-06-2022 End: 09-06-[address] GERRY BARTON Facility:[facility] Start: 09-04-2022 End: 09-04-2022 ambulatory Gerry Barton Other [employer] Other Start: 09-04-2022 Telephone encounter Gerry Bernardo [facility] Start: 08-28-2022 End: 08-28-2022 ambulatory Gerry Barton Other [employer] Other Start: 08-28-2022 Nursing evaluation o f patient and report Gerry Barton [facility] Start: 07-27-2022 End: 07-27-2022 ambulatory Gerry Barton Other [employer] Other Start: 07-27-2022 Nursing evaluation o f patient and report Gerry Barton [facility] Start: 07-26-2022 End: 07-26-[address] GERRY BARTON Facility:[facility] Start: 07-07-2022 End: 07-07-2022 ambulatory Gerry Barton Other [employer] Other Start: 07-07-2022 Telephone encounter Gerry Barton [facility] Start: 06-26-2022 End: 06-26-2022 ambulatory Gerry Barton Other [employer] Other Start: 06-26-2022 Nursing evaluation o f patient and report Gerry Barton [facility] Start: 06-14-2022 End: 06-14-[address] GERRY BARTON Facility:[facility] Start: 05-17-2022 End: 05-17-[address] GERRY BARTON Facility:[facility] Start: 05-03-2022 End: 05-03-[address] GERRY BARTON Facility:[facility] Start: 04-05-2022 End: 04-06-[address] GRERY BARTON Facility:[facility] Start: 04-03-2022 End: 04-04-2022 ambulatory MD Jenaro GUEVARA Facility:[facility] Start: 04-03-2022 End: 04-03-2022 Patient encounter procedure Jenaro GUEVARA [facility] Start: 03-27-2022 Adult health examination Gerry Barton Other [employer] Other Start: 03-27-2022 Pre-procedure evaluation check Gerry Barton Other [employer] Other Start: 03-22-[address] GERRY BARTON Facili ty:[facility] Start: 03-13-2022 Telephone encounter Kendall Alston gwendolyn [employer] Work Phone: Hematology/Oncology Comment on above: Lab Orders Start: 03-03-2022 End: 03-04-[address] BLADIMIR REYES . Facility:[facility] Start: 03-03-2022 End: 03-04-[address] GERRY BARTON Facility:[facility] Start: 02-27-2022 End: 02-28-2022 ambulatory Chair Ivory Morales Work Phone: Hematology/Oncology Comment on above: Obstruction of centr al line, initial encounter (HCC) (Primary Dx); Follicular lymphoma, unspecified follicular lymphoma type, unspecified body region (HCC) Start: 02-23-2022 Telephone encounter Eamon Bustamante RN Hematology/Oncology Comment on above: Treatment Planning Start: 02-21-2022 Telephone encounter Aileen Jenkins RN Hematology/Oncology Comment on above: port issues Start: 02-07-2022 End: 02-08-[address] GERRY BARTON Facility:[facility] Start: 02-07-2022 End: 02-09-[address] GERRY BARTON Facility:[facility] Start: 12-27-2021 End: 12-27-[address] GERRY BARTON Facility:[facility] Start: 11-17-2021 End: 11-17-[address] GERRY BARTON Facility:[facility] Start: 11-16-2021 End: 11-16-[address] BLADIMIR REYES . Facility:[facility] Start: 11-15-2021 End: 11-15-[address] GERRY BARTON Facility:[facility] Start: 11-12-[address] BLADIMIR ALEJANDRO . Facility:[facility] Start: 11-09-2021 End: 11-10-[address] ALONZO MADRIGAL Facility:[facility] Start: 03-23-2021 End: 03-23-2021 ambulatory [facility] Procedures Date Procedure Procedure Detail Performing Clinician Start: 03-03-[address] GERRY BARTON Comment on above: Performed By: #### PSAD #### [facility] [address] [place] [address] Dr. Dave Duffy Start: 11-25-2020 Adult depression screening assessment Aileen Jenkins RN Start: 09-23-2020 Colonoscopy Aileen Jenkins RN Start: 06-15-2014 Cystoscopy Jenarorussell GUEVARA Start: 06-26-2012 Urodynamic studies Jenaro GUEVARA Start: 06-14-2012 Cystoscopy Jenaro GUEVARA Start: 06-04-2011 Cholecystectomy Jenaro GUEVARA Colonoscopy Jenaro GUEVARA Depression screening Harjinderami n Bernardo Other Esophagogastroduodenoscopy P kaley GUEVARA H/O: artificial joint Benjam in [facility] Other H/O: artificial joint [facility] Other Laparoscopy Jenaro GUEVARA Partial resection of colon P atripuneet JADE Total knee replacement Zulay GUEVARA Transurethral biopsy prostate Jenarorussell GUEVARA Transurethral prostatectomy Jenarorussell GUEVARA Plan of Treatment Date Care Activity Detail Author Start: 03-23-2022 COLORECTAL CANCER SCREENING COLORECTAL CANCER SCREENING [facility] Start: 03-23-2022 FECAL OCCULT BLOOD FECAL OCCULT BLOO D [facility] Start: 03-13-2022 End: 05-13-2022 CBC W Auto Differential panel - Blood CBC + DIFF Lab Routine Non-Hodgkin's lymphoma, unspecified body region, unspecified non-Hodgkin lymphoma type (HCC) Expected: 03/13/2022, Expires: 05/13/2022 [facility] Work Phone: Comment on above: Expected: 03/13/2022 , Expires: 05/13/2022 Start: 03-13-2022 End: 05-13-2022 Comprehensive metabolic 2000 panel - Serum or Plasma COMP METABOLIC PANEL Lab Routine Non-Hodgkin's lymphoma, unspecified body region, unspecified non-Hodgkin lymphoma type (HCC) Expected: 03/13/2022, Expires: 05/13/2022 [facility] Work Phone: Comment on above: Expected: 03/13/2022 , Expires: 05/13/2022 Start: 03-13-2022 End: 05-13-2022 Lactate dehydrogenase [Enzymatic activity/volume] in Serum or Plasma LD LACTATE DEHYDRO Lab Routine Non-Hodgkin's lymphoma, unspecified body region, unspecified non-Hodgkin lymphoma type (HCC) Expected: 03/13/2022, Expires: 05/13/2022 [facility] Work Phone: Comment on above: Expected: 03/13/2022 , Expires: 05/13/2022 Start: 02-02-2022 Influenza vaccination INFLUENZA (#1) [facility] Start: 11-25-2021 Adult depression screening assessment DEPRESSION SCREENING [facility] Start: 09-23-2021 Colonoscopy COLONOSCOPY [facility] Start: 06-04-2021 ADVANCE DIRECTIVE DISCUSSION ADVANCE DIRECTIVE DISCUSSION [facility] Start: 06-04-2021 DEPRESSION ASSESSMENT DEPRESSION ASS ESSMENT [facility] Start: 04-11-2021 COVID-19 VACCINE (4 - Booster for Pfizer series) COVID-19 VACCINE (4 - Booster for Pfizer series) [facility] Start: 1992 COLOGUARD (FIT-DNA) COLOGUARD (FIT-D NA) [facility] Start: [address] COLONOGRAPHY [facility] Start: 1992 SIGMOIDOSCOPY SIGMOIDOSCOPY [facility] Start: 1966 Urine microalbumin profile DTAP,TDAP,TD (1 - Tdap) [facility] Start: 1965 ANNUAL PCP TEAM STUDENT SERVICES DEAN ALETHA DISEASE VISIT ANNUAL PCP TEAM CHRONIC DISEASE VISIT [facility] Start: 1965 Hepatitis B surface antibody level LDL CHOLESTEROL [facility] Start: 1965 HEPATITIS C SCREENING HEPATITIS C SC REENING [facility] Start: 1957 3 comp foot exam completed DIABETIC FOOT EXAM [facility] Start: 1957 Hepatitis C antibody , confirmatory test DILATED RETINAL EXAM [facility] Start: 1953 PNEUMOCOCCAL: 65+ (1 - PCV) PNEUMOCOCCAL: 65+ (1 - PCV) [facility] Start: 1952 Hemoglobin A1c/Hemoglobin.total in Blood HBA1C [facility] Immunizations Immunization Date Immunization Notes Care Provider Jose whalen 03-13-2023 COVID-19 Vaccine Pfi zer - Documentation Purposes Only Gerry Barton Other [facility] 03-13-2023 influenza virus vaccine, unspecified formulation [facility] 03-13-2023 influenza, high dose seasonal, preservative-free Gerry Barton Other [facility] [employer] Other 02-23-2022 influenza virus vaccine, split virus (incl. purified surface antigen) Gerry Barton Other [facility] [employer] Other 02-23-2022 influenza virus vaccine, unspecified formulation [facility] 02-25-2021 influenza virus vaccine, split virus (incl. purified surface antigen) Gerry Barton Other [facility] [employer] Other 02-25-2021 influenza virus vaccine, unspecified formulation [facility] 02-25-2021 Seasonal trivalent influenza vaccine, adjuvanted, preservative free Aileen Jenkins RN [facility] 07-28-2020 COVID-19 Vaccine Pfi zer - Documentation Purposes Only Gerry Barton Other [facility] 07-07-2020 COVID-19 Vaccine Pfi zer - Documentation Purposes Only Gerry Barton Other [facility] 02-05-2020 influenza, high-dose , quadrivalent vaccine (FLUZONE HIGH DOSE QUADRIVALENT) Aileen Jenkins RN [facility] 08-17-2019 zoster vaccine recombinant Aileen Jenkins RN [facility] 06-01-2019 zoster vaccine recombinant Aileen Jenkins RN [facility] 03-12-2019 influenza virus vaccine, split virus (incl. purified surface antigen) Gerry Barton Other [facility] [employer] Other 03-12-2019 influenza virus vaccine, unspecified formulation [facility] 03-26-2018 influenza virus vaccine, split virus (incl. purified surface antigen) Gerry Barton Other [facility] [employer] Other 03-26-2018 influenza virus vaccine, unspecified formulation [facility] 03-26-2018 Seasonal trivalent influenza vaccine, adjuvanted, preservative free Aileen Jenkins RN [facility] 11-16-2017 diphtheria, tetanus toxoids and acellular pertussis vaccine, unspecified formulation Gerry Barton Other [facility] 04-12-2017 influenza virus vaccine, split virus (incl. purified surface antigen) Gerry Barton Other [facility] [employer] Other 04-12-2017 influenza virus vaccine, unspecified formulation [facility] 04-12-2017 influenza, high dose seasonal, preservative-free Aileen Jenkins RN [facility] 03-15-2016 influenza virus vaccine, split virus (incl. purified surface antigen) Gerry Barton Other [facility] [employer] Other 03-15-2016 influenza virus vaccine, unspecified formulation [facility] 03-15-2016 influenza, high dose seasonal, preservative-free Aileen Jenkins RN [facility] 04-09-2015 pneumococcal conjuga te vaccine, 13 valent Gerry Barton Other [facility] 04-06-2015 influenza virus vaccine, split virus (incl. purified surface antigen) Gerry Barton Other [facility] [employer] Other 04-06-2015 influenza virus vaccine, unspecified formulation [facility] 04-06-2015 influenza, high dose seasonal, preservative-free Aileen Jenkins RN [facility] 03-16-2014 pneumococcal Conjuga te, unspecified formulation; Translations: [Need for prophylactic vaccination against Streptococcus pneumoniae (pneumococcus)] Gerry Barton Other [facility] [employer] Other 03-16-2014 pneumococcal polysaccharide vaccine, 23 valent Gerry Barton Other [facility] 03-16-2014 tetanus and diphther ia toxoids, adsorbed, preservative free, for adult use (5 Lf of tetanus toxoid and 2 Lf of diphtheria toxoid) Gerry Barton Other [facility] 04-10-2013 zoster vaccine, live Aileen Calvo [facility] 03-26-2002 diphtheria, tetanus toxoids and acellular pertussis vaccine, unspecified formulation Gerry Barton Other [facility] Payers Date Payer Category Payer Private Health Insurance [facility] SUPPLEMENT [id number] 2013-Present [phone] [address] [place] [address] Indemnity [id number] 2004 Medicare [id number] 1959 Medicare [id number] 1959 Self-pay 1959 Unknown [id number] 1947 Unknown [id number] 2.16.840.1.351765.3.579.2. 727 1947 Unknown [id number] 2.16.840.1.046324.3.579.2. 593 1947 Unknown [id number] 2.16.840.1.535897.3.579.2. 593 1947 Unknown [id number] 2.16.840.1.815999.3.579.2. 593 1947 Unknown [id number] 2.16.840.1.523306.3.579.2. 593 1947 Unknown [id number] 2.16.840.1.976916.3.579.2. 593 1947 Unknown [id number] 2.16.840.1.085909.3.579.2. 593 1947 Unknown [id number] 2.16.840.1.352571.3.579.2. 593 1947 Unknown [id number] 2.16.840.1.730038.3.579.2. 593 1947 Unknown [id number] 2.16.840.1.627945.3.579.2. 593 1947 Unknown [id number] 2.16.840.1.907504.3.579.2. 593 1947 Unknown [id number] 2.16.840.1.427215.3.579.2. 593 1947 Unknown [id number] 2.16.840.1.707840.3.579.2. 593 1947 Unknown [id number] 2.16.840.1.656330.3.579.2. 593 1947 Unknown [id number] 2.16.840.1.949281.3.579.2. 593 1947 Unknown [id number] 2.16.840.1.118855.3.579.2. 593 1947 Unknown [id number] 2.16.840.1.670288.3.579.2. 593 1947 Unknown [id number] 2.16.840.1.940520.3.579.2. 593 1947 Unknown [id number] 2.16.840.1.643548.3.579.2. 593 1947 Unknown [id number] 2.16.840.1.775607.3.579.2. 1259 1947 Unknown [id number] 2.16.840.1.781628.3.579.2. 1259 Medicare Medicare Outpatient [id number] Private Health Insurance [facility] [id number] Unknown [id number] 2.16.840.1.253282.3.579.2. 593 Social History Date Type Detail Facility Start: 07-15-2012 End: 07-25-2023 Tobacco smoking status NMIS Never smoked tobacco [facility] Start: 07-15-2012 Tobacco use and exposure Smokeless tobacco non-user [facility] Start: 03-23-2021 Alcohol intake Current non-dr rubber process hand of alcohol (finding) [facility] Start: 1945 Sex Assigned At Not on file [facility] Start: 02-11-2022 End: 02-27-2022 Exposure to SARS-CoV-2 (event) Not sure [facility] Sex Assigned At Male [facility] Start: 1945 Sex Assigned At Male [facility] Functional Status Date Assessment Result Facility 04-03-2022 Functional Status N/A [facility] Clinical Notes 05-02-2019 to 07-03-2023 Note Date & Type Note Facility 07-03-2023 Evaluation note Encounter Date Diagnosis Assessment Notes Jun, Pernicious anemia (ICD-10 - D51.0) [employer] Other 10-24-2023 Evaluation note* Encounter Date Diagnosis Assessment Notes Treatment Notes Treatment Clinical Notes Mar, Medicare annual wellness visit, subsequent (ICD-10 - Z00.00) Personalized health advice was given to the beneficiary including a written plan for screenings discussed and provided. Advanced care planning reviewed and/or information given as requested. Additional counseling was provided here today in regards to, [ ]. The above visit was performed by [ ], under direct supervision of [ ]. Document reviewed and amended by provider signed below. Mar, Type 2 diabetes mellitus with hyperglycemia, without long-term current use of insulin (ICD-10 - E11.65) This patient is following a comprehensive diabetic treatment plan. They are checking their feet daily for calluses and nonhealing ulcers. They are being seen for yearly dilated eye examinations. Goals: SBP less than 130, LDL less than 100, FBS less than 140, A1C less than 7%. They are checking their BS daily, will which are reviewed at the office visit. Continue regular routine monitoring of A1C,] Microalbumin, Dilated eye exam and Foot exam Mar, Type 2 diabetes mellitus with diabetic polyneuropathy (ICD-10 - E11.42) Inspect feet daily for cuts and calluses.Recommend diabetic shoes and inserts to prevent callus formation.Fall precautions. Mar, Primary hypertension (ICD-10 - I10) Mar, Hyperlipidemia, mixed (ICD-10 - E78.2) Instructed on diet and exercise with continued statin therapy.Discussed the beneficial effects of lowering cholesterol in reducing the risk for cerebrovascular and cardiovascular disease. Mar, Chronic venous insufficiency (ICD-10 - I87.2) Avoid salt and elevate lower extremities, support stockings, inspect legs and feet daily for blisters and ulcerations. Mar, Pernicious anemia (ICD-10 - D51.0) Continue replacement injections monthly Mar, Screening PSA (prostate specific antigen) (ICD-10 - Z12.5) Yearly PSA No change in symptoms, deferred MARIA INES Mar, Other obesity due to excess calories (ICD-10 - E66.09) This patient has been instructed on a low-fat, high-fiber diet. They are instructed to reduce calories, portion sizes and snacks. It is recommended that they exercise for 30 minutes, 3-5 times weekly. Mar, Body mass index [BMI] 30.0-30.9, adult (ICD-10 - Z68.30) [facility] Other 09-29-2023 Evaluation note* Encounter Date Diagnosis Assessment Notes Treatment Notes Treatment Clinical Notes Feb, Acute bronchitis due to other specified organisms (ICD-10 - J20.8) Instructed to use Robitussin or Mucinex for cough, saline or Flonase NS for congestion, Tylenol for pain and fever. Feb, COVID (ICD-10 - U07.1) Self isolate at home. - Cannot work - avoid contact with others - avoid pets - wipe counters, door knobs if touched - if can't avoid leaving home, must wear mask to protect others - need to stay isolated for 10 days from onset of symptoms - to discontinue isolation must be 5 days AND must be without fever for 24 hours AND symptoms must be improving. Always wear a mask in public places for complete 10 days [facility] Other 09-05-2023 Evaluation note* Encounter Date Diagnosis Assessment Notes Treatment Notes Treatment Clinical Notes Feb, Pernicious anemia (ICD-10 - D51.0) [facility] Other 07-31-2023 Evaluation note* Encounter Date Diagnosis Assessment Notes Treatment Notes Treatment Clinical Notes Dec, Pernicious anemia (ICD-10 - D51.0) [facility] Other 06-26-2023 Evaluation note* Encounter Date Diagnosis Assessment Notes Treatment Notes Treatment Clinical Notes Nov, Pernicious anemia (ICD-10 - D51.0) [employer] Other 03-27-2023 Evaluation note* Encounter Date Diagnosis Assessment Notes Treatment Notes Treatment Clinical Notes Aug, Pernicious anemia (ICD-10 - D51.0) [employer] Other 02-23-2023 Evaluation note* Encounter Date Diagnosis Assessment Notes Treatment Notes Treatment Clinical Notes Jul, Pernicious anemia (ICD-10 - D51.0) [employer] Other 01-23-2023 Evaluation note* Encounter Date Diagnosis Assessment Notes Treatment Notes Treatment Clinical Notes Jun, Pernicious anemia (ICD-10 - D51.0) [employer] Other 10-31-2022 Hospital Discharge instructions Patient Education 04/03/2022 13:28:44 Prostate-Specific Antigen Test Prostate-Specific Antigen Test Why am I having this test? The prostate-specific antigen (PSA) test is a screening test for prostate cancer. It can identify early signs of prostate cancer, which may allow for more effective treatment. Your health care provider may recommend that you have a PSA test starting at age 40 or that you have one earlier or later, depending on your risk factors for prostate cancer. You may also have a PSA test: To monitor treatment of prostate cancer. To check whether prostate cancer has returned after treatment. If you have signs of other conditions that can affect PSA levels, such as: ?An enlarged prostate that is not caused by cancer (benign prostatic hyperplasia, BPH). This condition is very common in older men. ?A prostate infection. What is being tested? This test measures the amount of PSA in your blood. PSA is a protein that is made in the prostate. The prostate naturally produces more PSA as you age, but very high levels may be a sign of a medicalcondition. What kind of sample is taken? A blood sample is required for this test. It is usually collected by inserting a needle into a blood vessel or by sticking a finger with a small needle. Blood for this test should be drawn before having an exam of the prostate. How do I prepare for this test? Do not ejaculate starting 24 hours before your test, or as long as told by your health care provider. Tell a health care provider about: Any allergies you have. All medicines you are taking, including vitamins, herbs, eye drops, creams, and ivhj-cgy-jlmboee medicines. This also includes: ?Medicines to assist with hair growth, such as finasteride. ?Any recent exposure to a medicine called diethylstilbestrol. Any blood disorders you have. Any recent procedures you have had, especially any procedures involving the prostate or rectum. Any medical conditions you have. Any recent urinary tract infections (UTIs) you have had. How are the results reported? Your test results will be reported as a value that indicates how much PSA is in your blood. This will be given as nanograms of PSA per milliliter of blood (ng/mL). Your health care provider will compare your results to normal ranges that were established after testing a large group of people (reference ranges). Reference ranges may vary among labs and hospitals. PSA levels vary from person to person and generally increase with age. Because of this variation, there is no single PSA value that is considered normal for everyone. Instead, PSA reference ranges are used to describe whether your PSA levels are considered low or high (elevated). Common reference ranges are: Low: 0 2.5 ng/mL. Slightly to moderately elevated: 2.6 10.0 ng/mL. Moderately elevated: 10.0 19.9 ng/mL. Significantly elevated: 20 ng/mL or greater. Sometimes, the test results may report that a condition is present when it is not present (false-positive result). What do the results mean? A test result that is higher than 4 ng/mL may mean that you are at an increased risk for prostate cancer. However, a PSA test by itself is not enough to diagnose prostate cancer. High PSA levels may also be caused by the natural aging process, prostate infection, or BPH. PSA screening cannot tell you if your PSA is high due to cancer or a different cause. A prostate biopsy is the only way to diagnose prostate cancer. A risk of having the PSA test is diagnosing and treating prostate cancer that would never have caused any symptoms or problems (overdiagnosis and overtreatment). Talk with your health care provider about what your results mean. Questions to ask your health care provider Ask your health care provider, or the department that is doing the test: When will my results be ready? How will I get my results? What are my treatment options? What other tests do I need? What are my next steps? Summary The prostate-specific antigen (PSA) test is a screening test for prostate cancer. Your health care provider may recommend that you have a PSA test starting at age 40 or that you have one earlier or later, depending on your risk factors for prostate cancer. A test result that is higher than 4 ng/mL may mean that you are at an increased risk for prostate cancer. However, elevated levels can be caused by a number of conditions other than prostate cancer. Talk with your health care provider about what your results mean. This information is not intended to replace advice given to you by your health care provider. Make sure you discuss any questions you have with your health care provider. Document Released: 06/23/2005 Document Revised: 05/03/2018 Document Reviewed: 02/25/2018 [employer] Patient Education 2020 [employer] Follow Up Care 03/28/2021 16:51:27 With:JADE DOYLE, Jenaro Roberto, URL Address: [facility] [address], [place] [address]- [phone] When: only if needed [facility] Kaylyn 10-10-2022 Miscellaneous Notes* Telephone Encounter - Irena Cabrera - 03/13/2022 2:48 PM EDT Per last note 03/2021 follow up with labs. Please add lab orders for Sunday03/22/22. Thanks. Irena Cabrera MA documented in this encounterUniversity Hospitals Geaug[facility]09-27-2022 NoteHNO ID: [id number] Author: Iona Cabrera RN Service: ? Author Type: Registered Nurse Type: Progress Notes Filed: 02/28/2022 2:28 PM Note Text: Report of findings called to Trisha VIDAL at Dr. Jasso' office. She states she will let Dr. Reyes know. Elisabeth Cabrera RNMemorial Health System09-26-2022 NoteHNO ID: [id number] Author: Iona Cabrera RN Service: ? Author Type: Registered Nurse Type: Progress Notes Filed: 02/27/2022 1:07 PM Note Text: Patient arrived at infusion center for possible activase for port without blood return. Upon access of port when flush with NS swelling noted above the port site. Patient denies any pain or burning with flush but visible swelling with flush above port site. Area where swelling appears marked with a marker so that patient can see where it is and Dr. Reyes can also evaluate when he sees the patient on Sunday03/01/22. Explained to patient why we could not proceed with activase due to port leaking, patient verbalized understanding will follow up with Dr. Reyes as scheduled on 03/01/22. Elisabeth Cabrera RNMemorial Health System09-26-2022 History of Present illness Narrative* Iona Cabrera RN - 02/27/2022 10:40 AM EDT Patient arrived at infusion center for possible activase for port without blood return. Upon accessof port when flush with NS swelling noted above the port site. Patient denies any pain or burning with flush but visible swelling with flush above port site. Area where swelling appears marked with amarker so that patient can see where it is and Dr. Reyes can also evaluate when he sees the patient on Sunday03/01/22. Explained to patient why we could not proceed with activase due to port leaking, patient verbalized understanding will follow up with Dr. Reyes as scheduled on 03/01/22. Elisabeth Cabrera RN documented in this encounterUniversity Hospitals Geauga [facility] Center09-23-2022 Miscellaneous Notes* Telephone Encounter - Yoly David PA-C - 02/24/2022 8:21 AM EDT Done Yoly David PA-C * Telephone Encounter - Eamon Bustamante RN - 02/23/2022 4:40 PM EDT Patient of Dr Kidd who is scheduled for cath vernell 02/27/22 per prior phone encounter, can you please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 ERCP 2011 Left Foot Surgery 2012 Cystoscopy/TURP 2012, Problem Status : Inactive, Surgical History 1: Problem Title : s urgical procedures, hx of, Problem Description : surgical procedures, hx of, Problem Comment : Tonsillectomy Left Knee Arthroscopy 1994 Right Knee Arthroscopy 2997 Left TKA 2002 Right TKA 2009 Laporoscopy 2005 Colonoscopy Surgical History 2: 2005, 2008, 2010 (repeat 2020) EGD 2008, 2010 Bowel Resection 2008 ERCP 2011 Left Foot Surgery 2011 Cystoscopy/TURP 2012 Left Hallux Longus Tendonopathy, Capsulotomy 08/2013 Cholecystecomty 2011 Manipulation under Anesthesia, Right Shoulder Surgical History 3: 06/2017 Debridemen t Left Foot Ulcer 09/2108, Problem Status : Active, [employer] Other History general Narrative - Reported* Type Description Date Medical History Presence of unspecified orthoped ic joint implant Medical History Charcots joint of foot, unspecif ied laterality Medical History History of osteomyelitis Medical History Squamous cell carcinoma of left upper extremity Medical History Pernicious anemia Medical History High risk medication use Medical History Benign prostatic hyp erplasia with lower urinary tract symptoms Medical History Charcot's joint arth ropathy in type 2 diabetes mellitus Medical History 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 Medical History Essential hypertension Medical History Hyperlipidemia, mixed Medical History Chest swelling Medical History Hammer toe of left foot Medical History Basal cell carcinoma of right lo wer extremity Medical History Chronic venous insufficiency Medical History Basal cell carcinoma of nose Surgical History COLONOSCOPY 09/23/2020 Surgical History HAMMERTOE REPAIR : left 2nd toe Surgical History Knee arthroscopy [id number] Surgical History OSTECTOMY OF TARSAL COALITION O F LEFT FOOT Surgical History Resection of Large Bowel Surgical History Debridement Left Foot Ulcer 2018 Hospitalization History see surgical history [employer] Other Progress note No data available for this section [facility] [place] Advance Directives Documents on File Type Date Recorded Patient Tomographic Tech Expl anation Advance Directive(s) 09/10/2009 10:04 PM Advance Directive Response Recorded Date/ Time Advance Directives No June 23, 2023 1:43pm Summary Purpose Family History Relationship Condition Age at Onset Recorded Date/T diogo Not Specified Heart disease Unknown sister Malignant neoplasm Unknown Chief Complaint and Reason for Visit Chief Complaint 4 Month Follow Up Reason for Visit Chronic venous insuf ficiency Diabetes mellitus with hyperglycemia Hyperlipidemia, mixed Pernicious anemia Primary hypertension Type 2 diabetes mellitus with diabetic polyneuropathy Additional Source Comments Source Comments (unrecognize d section and content) In the event this informatio n is protected by the Federal Confidentiality of Alcohol and Drug Abuse Patient Records regulations: The Federal rules restrict any use of the information to criminally investigate or prosecute any alcohol or drug abuse patient.[facility] the event this information is protected by the Federal Confidentiality of Alcohol and Drug Abuse Patient Records regulations: The Federal rules restrict any use of the information to criminally investigate or prosecute any alcohol or drug abuse patient.[facility] the event this information is protected by the [facility] Confidentiality of Alcohol and Drug Abuse Patient Records regulations: The Federal rules restrict any use of the information to criminally investigate or prosecute any alcohol or drug abuse patient.[facility] the event this information is protected by the Federal Confidentiality of Alcohol and Drug Abuse Patient Records regulations: The Federal rules restrict any use of the information to criminally investigate or prosecute any alcohol or drug abuse patient.[facility] Reason for Visit (unrecogniz ed section and content) Reason Comments port issues Reason Comments Treatment Planning Reason Comments Lab Orders Care Teams (unrecognized sec tion and content) Clinical Transformation Specialist Relationship Specialty Start Date End Date Gerry Barton, DO [address] [place] [id number] PCP - General 09/07/09 Clinical Transformation Specialist Relationship Specialty Start Date End Date Gerry Barton, DO [address] [place] [facility] [place] [address] PCP - General 09/07/09 Clinical Transformation Specialist Relationship Specialty Start Date End Date Gerry Barton, DO [address] [place] [address] PCP - General 09/07/09 Clinical Transformation Specialist Relationship Specialty Start Date End Date Gerry BartonDO [address] [place] [address] PCP - General 09/07/09 Team Status: Active Member Role Status Dates Gerry Barton DO Primary Care Provider Active Team Status: Active Member Role Status Dates Gerry Barton DO Primary Care Provide r, Attending Provider Active Start: July 27, 2023 Team Status: Inactive Member Role Status Dates Gerry Barton , Primary Care Provide r, Attending Provider Active Start: July 30, 2023 End: July 30, 2023 (unrecognized sect ion and content) No Status Records FoundNo Status Records FoundNo Status Records FoundNo Status Records Found INFORMATION SOURCE (unrecogn ized section and content) DATE CREATED AUTHOR 03/05/2022 [facility] DATE CREATED AUTHOR AUTHOR'S ORGANIZ ATION 04/09/2022 [facility] DATE CREATED AUTHOR AUTHOR'S ORGANIZ ATION 10/18/2022 [facility] DATE CREATED AUTHOR AUTHOR'S ORGANIZ ATION 08/01/2023 [facility] EPIC Goals (unrecognized section and content) Goals may be documented in a n alternate section FOR RECORDS PERTAINING TO PATIENTS WHO ARE OR HAVE BEEN ENROLLED IN A CHEMICAL DEPENDENCY/SUBSTANCEABUSE PROGRAM, SOME INFORMATION MAY BE OMITTED. This clinical summary was aggregated from multiple sources. Caution should be exercised in using it in the provision of clinical care. This summary normalizes information from multiple sources, and as a consequence, information in this document may materially change the coding, format and clinical context of patient data. In addition, data may be omitted in some cases. CLINICAL DECISIONS SHOULD BE BASED ON THE PRIMARY CLINICAL RECORDS. [facility] [employer] [facility]. provides no warranty or guarantee of the accuracy or completeness of information in this document.
[2023-08-06 10:09] LABS: Glycohemoglobin A1C 7.3 % (4.5-6.2)
[2023-08-06 10:10] LABS: Estimated Average Glucose 163 mg/dL
== END 2023-08-06 08:01 | disposition home or self-care (01) ==
LOC: LAB 08:02
PROVIDERS: PCP Internal Medicine; Visit Provider Internal Medicine
DX: Z79.4 Long term (current) use of insulin (principal); E11.42 Type 2 diabetes mellitus with diabetic polyneuropathy; E11.65 Type 2 diabetes mellitus with hyperglycemia
CPT/HCPCS: 36415; 83036

== ENCOUNTER 2023-12-19 07:14 | Outpatient (OUT) | payer MEDICARE, SELFPAY ==
--- OUTSIDE RECORDS SUMMARY | 2023-12-19 07:18 | XMS_ITS | CCD ---
Author Organization [facility] Care Team Providers Care Outpatient Admitting Clerk Name Role Phone Bernardo Gerry Primary Care Provider MARYJO KIDD Referring Unavailable GERRY BARTON Primary Care Unavailable KENDALL HONEYCUTT Attending Unavailable KINGS JOHNS Referring Unavailable GERRY BARTON Primary Care Unavailable YOLY DAVID Referring Unavailable GERRY BARTON Primary Care Unavailable GERRY BARTON Primary Care Physician [phone] MD Jenaro GUEVARA Attending Unavailable Bernardo, Gerry Unavailable BERNARDO, DR GARRETT Primary Care Unavailable BALL, DR GARRETT Consulting Unavailable BALL, DR GARRETT Admitting Unavailable BALL, DR GARRETT Attending Unavailable GRILLIS ., DR BLADIMIR Mann Attending Unavaila ble GRILLIS ., DR BLADIMIR Mann Admitting Unavaila ble GRILLIS ., DR BLADIMIR Mann Consulting Unavaila ble BALL, DR GARRETT Primary Care Unavailable COLLINS, DR ALONZO Hernandez Consulting Unavailable BALL, DR GARRETT Primary Care Unavailable REQUEST, DR CHICAS LISTED Attending Unavaila ble BALL, DR GARRETT Consulting Unavailable REQUEST, DR CHICAS LISTED Admitting Unavaila ble BALL, DR GARRETT Consulting Unavailable BALL, DR GARRETT Attending Unavailable BALL, DR GARRETT Admitting Unavailable BALL, DR GARRETT Primary Care Unavailable BALL, DR GARRETT Consulting Unavailable BALL, DR GARRETT Attending Unavailable BALL, DR GARRETT Admitting Unavailable BALL, DR GARRETT Primary Care Unavailable GRILLIS ., DR BLADIMIR Mann Attending Unavaila ble GRILLIS ., DR BLADIMIR Mann Admitting Unavaila ble BALL, DR GARRETT Primary Care Unavailable BALL, DR GARRETT Consulting Unavailable BALL, DR GARRETT Admitting Unavailable BALL, DR GARRETT Primary Care Unavailable BALL, DR GARRETT Attending Unavailable BALL, DR GARRETT Consulting Unavailable BALL, DR GARRETT Admitting Unavailable BALL, DR GARRETT Primary Care Unavailable BALL, DR GARRETT Attending Unavailable BALL, DR GARRETT Primary Care Unavailable BALL, DR GARRETT Consulting Unavailable BALL, DR GARRETT Admitting Unavailable BALL, DR GARRETT Attending Unavailable BALL, DR GARRETT Primary Care Unavailable GUEVARA ., DR DUCKWORTH Consulting Unavailable GUEVARA ., DR DUCKWORTH Attending Unavailable GUEVARA ., DR DUCKWORTH Admitting Unavailable BALL, DR GARRETT Primary Care Unavailable WEST, DR ALONZO Hernandez Consulting Unavailable OLIVEROS, DR ALEXX Mann Attending Unavailable OLIVEROS, DR ALEXX Mann Admitting Unavailable OLIVEROS, DR ALEXX Mann Consulting Unavailable BALL, DR GARRETT Consulting Unavailable BALL, DR GARRETT Admitting Unavailable BALL, DR GARRETT Attending Unavailable BALL, DR GARRETT Primary Care Unavailable WEST, DR ALONZO Hernandez Consulting Unavailable HIGHLANDER, MARCELLA Araya Attending Unavailable HIGHLANDER, MARCELLA Araya Admitting Unavailable BALL, DR GARRETT Primary Care Unavailable HIGHLANDER, MARCELLA Araya Consulting Unavailable BALL, DR GARRETT Consulting Unavailable BALL, DR GARRETT Attending Unavailable BALL, DR GARRETT Admitting Unavailable BALL, DR GARRETT Primary Care Unavailable GRILLIS ., DR BLADIMIR Mann Attending Unavaila ble GRILLIS ., DR BLADIMIR Mann Admitting Unavaila ble GRILLIS ., DR BLADIMIR Mann Consulting Unavaila ble BALL, DR GARRETT Primary Care Unavailable MCCORNACK, QUIRINO Consulting Unavailable BALL, DR GARRETT Consulting Unavailable BALL, DR GARRETT Attending Unavailable BALL, DR GARRETT Admitting Unavailable BALL, DR GARRETT Primary Care Unavailable BALL, DR GARRETT Admitting Unavailable BALL, DR GARRETT Attending Unavailable BALL, DR GARRETT Primary Care Unavailable BALL, DR GARRETT Consulting Unavailable BALL, DR GARRETT Attending Unavailable BALL, DR GARRETT Admitting Unavailable BALL, DR GARRETT Primary Care Unavailable BALL, DR GARRETT Consulting Unavailable BALL, DR GARRETT Admitting Unavailable BALL, DR GARRETT Attending Unavailable BALL, DR GARRETT Primary Care Unavailable Ball, DO Garrett Primary Care Provider Murcek, DO Garrett Attending Provider [phone] Murjorge, Gerry Attending Unavailable Ball, Gerry Primary Care Unavailable Murcek, Gerry Admitting Unavailable Murcek, Gerry Admitting Unavailable Murcek, Gerry Attending Unavailable Ball, Gerry Primary Care Unavailable PETITTI, TALIB Leon Attending Unavailable MURCEK, GERRY Booker Attending Unavailable PETITTI, TALIB A Referring Unavailable MURCEK, GERRY Booker Attending Unavailable MURCEK, GERRY Booker Attending Unavailable BALL, GERRY E Referring Unavailable MURCEK, GERRY Booker Attending Unavailable PETITTI, TALIB A Referring Unavailable MURCEK, GERRY Booker Attending Unavailable HERNANDEZ, ROCKY Mann Attending Unavailable Allergies Allergy Classification Reported Allergen(s) Allergy Type Date of Onset Reaction(s) Facility (6 sources) Ketorolac; Translations: [KETOROLAC] Drug Allergy 09-24-19 21 Unknown, Unknown (qualifier value) [facility] (13 sources) Piperacillin / tazobactam; Translations: [PIPERACILLIN-TA ZOBACTAM] Drug Allergy 09-15-19 10 Rash [facility] (2 sources) Vorinostat; Translations: [vorinostat] Drug Allergy Unknown (qualifier value) [facility] (2 sources) Ketorolac; Translations: [Toradol] Drug Allergy [facility] (1 source) Piperacillin / tazobactam Drug Allergy 01-15-20 16 [facility] (1 source) tazobactam Drug Allergy [facility] (3 sources) patient allergy list reviewed by nurse or physicia Propensity to adverse reactions 12-26-19 Comment:Done [facility] Other (3 sources) Allergies Reconciled Propensity to adverse reactions Unknown [facility] Other (1 source) Piperacillin Drug Allergy 08-22-19 24 [facility] Repository Medications Current Medications Medication Drug Class(es) Dates Sig (Normalized) Sig (Original) Aspir-81 81 MG (14 sources) take 1 tablet by mouth three times weekly Aspir-81 81 MG 1 tablet Orally THREE TIMES A WEEK for 30 day(s) Active aspirin 81 mg delayed release oral tablet (11 sources) Platelet Aggregation Inhibitor, Nonsteroidal Anti-inflammatory Drug Start: 07-25-2023 take 81 mg by mouth three times weekly Aspirin Active 81 MG PO 3 Times a week July 25, 2023 1:00am On Hold: Resume on 09/01/23. Start: 11-27-2019 aspirin Refill s(s) 0 Start Date: 11/27/19 Status: Ordered take 1 tablet by gonzalo th once daily, then take 1 tablet by mouth every other day aspirin, enteric coated (ASPIRIN, ENTERIC COATED) 81 mg EC tablet Take 81 mg by mouth once daily. Takes every other day 0 Active Comment on above: Take 81 mg by mouth once daily. Takes every other day atorvastatin 10 mg oral tablet (20 sources) HMG-CoA Reductase Inhibitor Start: take 1 tablet by mouth once daily in the evening Atorvastatin Active 0 .ROUTE .COMPLEX 90 October 17, 2023 1:21pm TAKE 1 TABLET BY MOUTH EVERY EVENING Start: 07-25-2023 End: 10-17-2023 take 10 mg by mouth once daily at bedtime Atorvastatin Discontinued 10 MG PO Daily at bedtime July 25, 2023 1:00am October 17, 2023 1:21pm Start: 11-27-2019 atorvastatin O ral, Daily, Refills(s) 0 Start Date: 11/27/19 Status: Ordered Atorvastatin Stefan cium 10 MG TAKE 1 (ONE) TABLET DAILY IN EVENING Active Comment on above: Take 10 mg by mouth once daily. carvedilol 6.25 mg oral tablet (20 sources) alpha-Adrenergic Luli, beta-Adrenergic Luli Start: 11-15-2023 take 1 tablet by mouth twice daily Carvedilol Active 0 .ROUTE .COMPLEX 180 November 15, 2023 12:59pm TAKE 1 TABLET BY MOUTH TWICE A DAY Start: 07-25-2023 End: 11-15-2023 take 6.25 mg by mouth twice daily Carvedilol Discontinued 6.25 MG PO Twice daily July 25, 2023 1:00am November 15, 2023 1:00pm Start: 11-27-2019 carvedilol Ora l, Refills(s) 0 [...] mg oral tablet (20 sources) Sulfonylurea Start: take 2 tablets by mouth once daily in the morning Glimepiride Active 0 .ROUTE .COMPLEX 180 November 19, 2023 12:44pm TAKE 2 TABLETS BY MOUTH EVERY MORNING 30 MINUTES PRIOR TO BREAKFAST Start: 07-25-2023 End: 11-19-2023 take 4 mg by mouth twice daily Glimepiride Discontinue d 4 MG PO Twice daily July 25, 2023 1:00am November 19, 2023 12:44pm Start: 07-25-2023 take 4 mg by mouth once daily [...] 09/07/2015 Active Comment on above: 12 Units. Insulin Detemir U-100 (Levemir Flexpen) 100 unit/mL (3 mL) insulin pen (5 sources) Start: 08-22-2023 Insulin Detemi r U-100 (Levemir Flexpen) 100 unit/mL (3 mL) insulin pen Active 12 UNIT SUBCUT Daily at bedtime August 22, 2023 12:00am Start: 08-22-2023 inject 10 [IU] by wisdom bcutaneous injection once daily at bedtime Insulin Detemir U-100 (Levemir Flexpen) 100 unit/mL (3 mL) insulin pen Active 10 UNIT SUBCUT Daily at bedtime August 22, 2023 12:00am Levemir FlexPen 100 UNIT/ML (2 sources) Start: 07-07-2022 Levemir FlexPe n 100 UNIT/ML 12 units Subcutaneous Once daily for 90 days Jul, Active linagliptin 5 mg oral tablet (17 sources) Dipeptidyl Peptidase 4 Inhibitor Start: 07-25-2023 take 1 tablet by mouth once daily in the morning Linagliptin (Tradjenta) 5 mg tablet Active 5 MG PO Every morning July 25, 2023 1:00am Start: 11-27-2019 take 1 mg by mouth once daily Tradjenta mg, Oral, Daily, Refills(s) 0 Start Date: 11/27/19 Status: Ordered Start: 06-15-2013 take 1 tablet by gonzalo th once daily Tradjenta 5 mg oral tablet 30 EA, TAKE 1 TABLET BY MOUTH EVERY DAY, Refills(s) 0 Start Date: 04/03/22 Status: Ordered Comment on above: 5 mg once daily. lisinopril 2.5 mg oral tablet (20 sources) Angiotensin Converting Enzyme Inhibitor Start: 09-18-2023 take 1 tablet by mouth once daily Lisinopril Active 0 .ROUTE .COMPLEX 90 September 18, 2023 1:24pm TAKE 1 TABLET BY MOUTH EVERY DAY Start: 07-25-2023 End: 09-18-2023 take 2.5 mg by mouth once daily at bedtime Lisinopril Discontinued 2.5 MG PO Daily at bedtime July 25, 2023 1:00am September 18, 2023 1:24pm Start: 11-27-2019 lisinopril Ora l, Daily, Refills(s) [...] 12 hrs for 5 days Feb, Active traMADol hydrochloride 50 mg oral tablet (3 sources) Opioid Agonist Start: 4 End: 4 take 50 mg by mouth twice daily Tramadol Active 50 MG PO Twice daily November 23, 2023 4:25pm Start: 11-15-2023 End: 11-22-2023 take 50 mg by mouth once daily at bedtime Tramadol Discontinued 50 MG PO Daily at bedtime 12 08November 15, 2023 12:00am November 22, 2023 6:10pm Completed/Discontinued Medications Medication Drug Class(es) Dates Sig [...] to 1 000 mcg Jun, 1000 mcg valACYclovir 1000 mg oral tablet (2 sources) Herpesvirus Nucleoside Analog DNA Polymerase Inhibitor, Herpes Simplex Virus Nucleoside Analog DNA Polymerase Inhibitor, Herpes Zoster Virus Nucleoside Analog DNA Polymerase Inhibitor Start: 11-02-2023 End: 11-28-2023 take 1000 mg by mouth three times daily Valacyclovir Discontinued 1000 MG PO Three times daily 22 12November 02, 2023 12:00am November 28, 2023 8:54am Problems Active Problems Problem Classification Problem Date [...] Onset: 09-07-2009 Chronic Deficiency and other anemia (20 sources) Pernicious anemia; Translations: [Vitamin B12 deficiency anemia due to intrinsic factor deficiency] 07-25-2023 Episodic Deficiency and other anemia (14 sources) Vitamin B12 deficiency anemia due to intrinsic factor deficiency; Translations: [Pernicious anemia] Episodic Diabetes mellitus with complications (20 sources) Type 2 diabetes mellitus with diabetic chronic kidney disease; Translations: [Hyperglycemia due to type 2 diabetes mellitus] Onset: 06-26-2016 Chronic Diabetes mellitus without complication (17 sources) Diabetes mellitus; Translations: [Type 2 diabetes mellitus without complications] Onset: 05-02-2019 05-05-2019 Chronic Diabetes mellitus without complication (1 source) Glycosuria 12-01-2019 Episodic Diseases of white blood cells (4 sources) Neutropenia; Translations: [Neutropenia, unspecified] Onset: 09-07-2009 Chronic Disorders of lipid metabolism (20 sources) Mixed hyperlipidemia; Translations: [Hyperlipidemia, unspecified] Onset: 11-23-2021 Chronic Essential hypertension (20 sources) Essential (primary) hypertension; Translations: [Essential hypertension] [...] 02-28-2022 Episodic Other aftercare (2 sources) 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; Translations: [OTH BRANCH MANAGER TRAINEE CURRENT DRUG THERAPY] Onset: 04-10-2022 Episodic Other aftercare (3 sources) Long-term current use of 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; Translations: [Other senior care (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] Episodic Other aftercare (4 sources) H/O: high risk medication; Translations: [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] Episodic Other connective tissue [...] Chronic Other diseases of veins and lymphatics (13 sources) Peripheral venous insufficiency; Translations: [Venous insufficiency (chronic) (peripheral)] 07-25-2023 Episodic Other diseases of veins and lymphatics (7 sources) Venous insufficiency (chronic) (peripheral); Translations: [Venous [...] Chronic Other nutritional; endocrine; and metabolic disorders (15 sources) Body mass index 30+ - obesity; Translations: [Body mass index 30.0-30.9, adult] Onset: 06-04-1957 07-25-2023 Chronic Other nutritional; endocrine; and metabolic disorders (9 sources) Obesity caused by energy imbalance; Translations: [...] and visceral atherosclerosis (3 sources) 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; Translations: [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, unspecified] Chronic Residual [...] (current) use of other medications] Onset: 12-06-2015 Viral infection (2 sources) Herpes zoster; Translations: [Zoster without complications] 11-02-2023 Episodic Past or Other Problems Problem Classification Problem [...] Onset: 02-01-2018 Episodic Other aftercare (1 source) 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 Glucose of more than 200 mg/dL in a nonstressed, ambulatory subject supports the diagnosis of Diabetes Mellitus. Glucose Poct Glucometerson 0 08-28-2023 Glucose [Mass/Vol] 101 mg/dL Normal [facility] Comment on above: Result Comment: [place] Glucose Reference Range is dependent on time and content of last meal. Glucose of more than 200 mg/dL in a nonstressed, ambulatory subject supports the diagnosis of Diabetes Mellitus. PERFORMED BY: [facility] [address] [place] [address] PATHOLOGIST SEAL MIXER AMANDA ZAMORA M.D. Performed By: #### G LULS #### Point of Care testing , Commemt1 Glu2: Cleaned Meter Normal [facility] Comment on above: Result Comment: PERF ORMED BY: [facility] [address] [place] [address] PATHOLOGIST SEAL MIXER AMANDA ZAMORA M.D. Performed By: #### G LULS #### Point of Care testing , Glucose [Mass/Vol] 147 mg/dL Normal [facility] Comment on above: Result Comment: [place] Glucose Reference Range is dependent on time and content of last meal. Glucose of more than 200 mg/dL in a nonstressed, ambulatory subject supports the diagnosis of Diabetes Mellitus. Performed By: #### G LULS #### Point of Care testing , Von 08-28-2023 L Specimen: Received: 08/28/23 Status: MANJIT Montiel Num: [id number] Spec Type: Surgical Subm Dr: Gerry Nelson DO Tissues: A Skin-Other than Cyst, tag, debridement or plastic repair (SCALP) Procedures: HE/7, Gross/Micro L4, Frozen Section, Froz Sec, Add/4, FS HE/10 Age/ Patient Sex Location Account Attending Physician Eugenio Crews 78/M [place] [id number] Gerry Nelson DO SPEC NUM: [id number] RECD: 08/28/23 STATUS: MANJIT MONTIEL NUM: [id number] ANJALI: 08/28/[address]: Gerry Nelson DO ENTERED: 08/28/23 [facility] DR: SPEC TYPE: Surgical DEPT: S ORDERED: HE/7, Gross/Micro L4, Frozen Section, Froz Sec, Add/4, FS HE/10 ORDERED: HE/7, Gross/Micro L4, Frozen Section, Lu Moulton, Add/4, FS Pathological Diagnosis Skin Lesion, Scalp, Excision: Squamous Cell Carcinoma, Moderately Differentiated. - Surgical Margins Are Negative For Malignancy. Clinical Information Skin cancer, margins only, knows it is squamous cell, 12:00 anterior equals long, 3:00 right lateral equals short Gross Description Received fresh labeled with the patient's name, date of and recurrent squamous cell carcinoma of scalp is a 3.2 x 3.0 x 0.7 cm circular excision of vega-white, hairbearing skin with a central 1.0 x 0.8 cm vega, crusted lesion. There is a long suture designating 12:00 anterior and a short suture designating 3:00 right lateral. The 12-3 o'clock margin is inked black, the 3-6 o'clock margin is inked yellow, the 6-9 o'clock margin is inked orange and the 9-12 o'clock margin is inked blue. The 12 the 3:00 margin is submitted en face for frozen section evaluation as FS A1. The 3-6 o'clock margin is submitted for frozen section evaluation en face as FS A2. The 6-9 o'clock margin is submitted for frozen section en face as FS A3. A central transverse section through the lesion is submitted for frozen section evaluation as FS A4. The 9-12 o'clock margin is submitted for frozen section evaluation as FSA 5. The remainder of the specimen is sectioned transversely from 12:00 to 6:00. Entirely submitted in 7 cassettes as follows: A1 - Frozen section remnant?FS A1 A2 - Frozen section remnant?FSA 2 Specimen: [id number] Received: 08/28/23 Status: MANJIT Montiel Num: [id number] Spec Type: Surgical Subm Dr: Gerry Nelson,DO Tissues: A Skin-Other than Cyst, tag, debridement or plastic repair (SCALP) Procedures: , Gross/Micro L4, Frozen Section, Froz Sec, Add, FS Patient: Eugenio Crews [id number] (Continued) Specimen: [id number] Received: 08/28/23 (Continued) Gross Description (Continued) Signed (signatur e on file) Mel Proctor MD 08/29/23 1356 Specimen: [id number] Received: 08/28/23 Status: MANJIT Montiel Num: [id number] Spec Type: Surgical Subm Dr: Gerry Nelson DO Tissues: A Skin-Other than Cyst, tag, debridement or plastic repair (SCALP) Procedures: , Gross/Micro L4, Frozen Section, Froz Sec, Add, FS Patient: Eugenio Crews [id number] (Continued) Specimen: [id number] Received: 08/28/23 (Continued) Gross Description (Continued) A3 - Frozen section remnant?FSA 3 A4 - Frozen section remnant?FSA 4 A5 - Frozen section remnant?FSA 5 A6 - 12:00 half of specimen A7 - 6:00 half of specimen Intraoperative Diagnosis A. Recurrent squamous cell carcinoma of scalp: - Margins are negative for malignancy. Reported by Dr. Proctor at 2:05 PM 08/28/2023 CPT Codes 28584, 57039, [id number] Specimen: [id number] Received: 08/28/23 Status: MANJIT Montiel Num: [id number] Spec Type: Surgical Subm Dr: Gerry Nelson,DO Tissues: A Skin-Other than Cyst, tag, debridement or plastic repair (SCALP) Procedures: HE/, Gross/Micro L4, Frozen Section, Lu Moulton, Add/, FS Patient: Eugenio Crews [id number] (Continued) Signed (signatur e on file)___ (more content not included)... Normal [facility] No Panel InformationOrdered By: Gerry Nelson on 08-28-2023 Bedside Glucose Comment Glu2: cleaned meter [facility] Basic Metabolic Panelon 08-03 Anion gap [Moles/Vol] 12.7 mmol/L Normal 6.0-15.0 [facility] Comment on above: Performed By: #### B MP, CBC #### [facility] [address] Calcium [Mass/Vol] 8.7 mg/dL Normal 8.6-10.3 [facility] Comment on above: Result Comment: PERF ORMED BY: [facility] [address] [place] [address] PATHOLOGIST SEAL MIXER AMANDA ZAMORA M.D. Performed By: #### B MP, CBC #### [facility] [address] [place] [id number] [place] Chloride [Moles/Vol] 109 mmol/L High 98-107 [facility] Comment on above: Performed By: #### B MP, CBC #### [facility] [address] [place] [address] [place] CO2 [Moles/Vol] 22.0 mmol/L Normal 21.0-31.0 [facility] Comment on above: Performed By: #### B MP, CBC #### [facility] [address] [place] [address] [place] Creatinine [Mass/Vol] 2.90 mg/dL High 0.70-1.30 [facility] Comment on above: Performed By: #### B MP, CBC #### [facility] [address] [place] [address] [place] GFR/1.73 sq M.predicted MDRD (S/P/Bld) [Vol rate/Area] 21.738 mL/min/{1.73_m2} Normal [facility] Comment on above: Performed By: #### B MP, CBC #### [facility] [address] [place] [address] [place] Glucose [Mass/Vol] 227 mg/dL High 70-100 [facility] Comment on above: Result Comment: [place] Glucose Reference Range is dependent on time and content of last meal. Glucose of more than 200 mg/dL in a nonstressed, ambulatory subject supports the diagnosis of Diabetes Mellitus. ADA recommended reference range Performed By: #### B MP, CBC #### [facility] [address] [place] [id number] [place] Potassium [Moles/Vol] 4.7 mmol/L Normal 3.5-5.1 [facility] Comment on above: Performed By: #### B MP, CBC #### [facility] [address] [place] [address] [place] Sodium [Moles/Vol] 139 mmol/L Normal 136-145 [facility] Comment on above: Performed By: #### B MP, CBC #### [facility] [address] [place] [address] [place] Urea nitrogen [Mass/Vol] 43 mg/dL High 7-25 [facility] Comment on above: Performed By: #### B MP, CBC #### [facility] [address] Basophils Auto (Bld) [#/Vol] Ordered By: Gerry Nelson on 08-22-2023 Basophils (Bld) [#/Vol] 0.0 10*3/uL 0.0-0.2 [facility] Basophils/100 WBC Auto (Bld) Ordered By: Gerry Nelson on 08-22-2023 Basophils/100 WBC (Bld) 0.4 % . F [facility] Calcium [Mass/volume] in Ser um or PlasmaOrdered By: Gerry Nelson on 08-22-2023 Calcium [Mass/Vol] 8.7 mg/dL 8.6-10.3 [facility] Carbon dioxide, total [Moles /volume] in Serum or PlasmaOrdered By: Gerry Nelson on 08-22-2023 CO2 [Moles/Vol] 22.0 mmol/L 21.0-31.0 [facility] Chloride [Moles/volume] in S hai or PlasmaOrdered By: Gerry Nelson on 08-22-2023 Chloride [Moles/Vol] 109 mmol/L 98-107 [facility] Complete Blood Count Auto Di ffon 08-22-2023 Basophils (Bld) [#/Vol] 0.0 10*3/uL Normal 0.0-0.2 [facility] Comment on above: Result Comment: PERF ORMED BY: [facility] [address] [place] [address] PATHOLOGIST SEAL MIXER AMANDA ZAMORA M.D. Performed By: #### B MP, CBC #### [facility] [address] Basophils/100 WBC (Bld) 0.4 % Normal . [facility] Comment on above: Performed By: #### B MP, CBC #### [facility] [address] [place] [address] [place] Eosinophils (Bld) [#/Vol] 0.1 10*3/uL Normal 0.0-0.45 [facility] Comment on above: Performed By: #### B MP, CBC #### [address] Eosinophils/100 WBC (Bld) 2.4 % Normal . [facility] Comment on above: Performed By: #### B MP, CBC #### [address] Erythrocyte distribution width (RBC) [Ratio] 12.7 % Normal 12.0-14.8 [facility] Comment on above: Performed By: #### B MP, CBC #### [address] Hematocrit (Bld) [Volume fraction] 33.6 % Low 38.8-50.0 [facility] Comment on above: Performed By: #### B MP, CBC #### [address] Hemoglobin (Bld) [Mass/Vol] 11.4 g/dL Low 13.0-17.0 [facility] Comment on above: Performed By: #### B MP, CBC #### [address] Lymphocytes (Bld) [#/Vol] 0.9 10*3/uL Low 1.00-4.8 [facility] Comment on above: Performed By: #### B MP, CBC #### [place] [address] [place] Lymphocytes/100 WBC (Bld) 14.3 % Normal . [facility] Comment on above: Performed By: #### B MP, CBC #### [address] MCH (RBC) [Entitic mass] 32.7 pg Normal 27.5-35.2 [facility] Comment on above: Performed By: #### B MP, CBC #### [address] MCV (RBC) [Entitic vol] 96.1 fL Normal 83.5-101 F [facility] Comment on above: Performed By: #### B MP, CBC #### [facility] [address] Mean Corpuscular HGB Conc 34.0 g/dL Normal 32.5-35.6 [facility] Comment on above: Performed By: #### B MP, CBC #### [place] [facility] [address] [place] [address] [place] Monocytes (Bld) [#/Vol] 0.5 10*3/uL Normal 0.0-0.8 [facility] Comment on above: Performed By: #### B MP, CBC #### [facility] [address] Monocytes/100 WBC (Bld) 7.4 % Normal . [facility] Comment on above: Performed By: #### B MP, CBC #### [facility] [address] Neutrophils (Bld) [#/Vol] 4.7 10*3/uL Normal 1.8-7.7 [facility] Comment on above: Performed By: #### B MP, CBC #### [facility] [address] Neutrophils/100 WBC (Bld) 75.5 % Normal . [facility] Comment on above: Performed By: #### B MP, CBC #### [facility] [address] [place] [address] [place] NRBC% 0.0 /100{WBC} Normal 0-0.5 [facility] Comment on above: Performed By: #### B MP, CBC #### [facility] [address] [place] [address] [place] Platelet mean volume (Bld) [Entitic vol] 7.2 fL Normal 6.6-10.1 [facility] Comment on above: Performed By: #### B MP, CBC #### [facility] [address] [place] [address] [place] Platelets (Bld) [#/Vol] 165 10*3/uL Normal 150-450 [facility] Comment on above: Performed By: #### B MP, CBC #### [facility] [address] RBC (Bld) [#/Vol] 3.50 10*6/uL Low 3.90-5.60 [facility] Comment on above: Performed By: #### B MP, CBC #### [facility] [address] WBC (Bld) [#/Vol] 6.2 10*3/uL Normal 4.1-10.5 [facility] Comment on above: Performed By: #### B MP, CBC #### [facility] [address] Creatinine [Mass/volume] in Serum or PlasmaOrdered By: Gerry Nelson on 08-22-2023 Creatinine [Mass/Vol] 2.90 mg/dL 0.70-1.30 [facility] ECG 12 lead ECGon 08-22-2023 ECG 12 lead ECG [facility] [address] [place] [address] [place] [address] Electrocardiograph Report Signed Patient: Eugenio Crews MR#: [id number] : 1945 Acct:[id number] Age/Sex: 78 / M ADM Date: 08/22/23 Loc: Room: Type: [facility] Attending Dr: Gerry Nelson DO Ordering Provider: Gerry Nelson DO Date of Service: 08/22/23 ECG/ECG 12 lead ECG: pst Copies to: Test Reason : Blood Pressure : / mmHG Vent. Rate : 074 BPM Atrial Rate : 074 BPM P-R Int : 236 ms QRS Dur : 102 ms QT Int : 370 ms P-R-T Axes : 070 -22 051 degrees QTc Int : 410 ms Sinus rhythm with 1st degree AV block Low voltage QRS Septal infarct , age undetermined Abnormal ECG No previous ECGs available Confirmed by Joni Marrero ([id number]) on 08/23/2023 11:21:57 AM Referred By: NOHEMI Electronically Signed By:Joni Marrero Transcribed By: MUS Signed By Joni Marrero MD 08/23/23 1122 Normal [facility] Eosinophils Auto (Bld) [#/Vo l]Ordered By: Gerry Nelson on 08-22-2023 Eosinophils (Bld) [#/Vol] 0.1 10*3/uL 0.0-0.45 [facility] Eosinophils/100 WBC Auto (Bl d)Ordered By: Gerry Nelson on 08-22-2023 Eosinophils/100 WBC (Bld) 2.4 % . [facility] Erythrocyte distribution wid th Auto (RBC) [Ratio]Ordered By: Gerry Nelson on 08-22-2023 Erythrocyte distribution width (RBC) [Ratio] 12.7 % 12.0-14.8 [facility] Glucose [Mass/volume] in Ser um or PlasmaOrdered By: Gerry Nelson on 08-22-2023 Glucose [Mass/Vol] 227 mg/dL 70-100 [facility] Comment on above: ADA recommended refe rence rangeRandom Glucose Reference Range is dependent on time and content of last meal. Glucose of more than 200 mg/dL in a nonstressed, ambulatory subject supports the diagnosis of Diabetes Mellitus. Hematocrit Auto (Bld) [Volum e fraction]Ordered By: Gerry Nelson on 08-22-2023 Hematocrit (Bld) [Volume fraction] 33.6 % 38.8-50.0 [facility] Hemoglobin [Mass/volume] in BloodOrdered By: Gerry Nelson on 08-22-2023 Hemoglobin (Bld) [Mass/Vol] 11.4 g/dL 13.0-17.0 [facility] Leukocytes [#/volume] correc yoseph for nucleated erythrocytes in Blood by Automated counOrdered By: Gerry Nelson on 08-22-2023 WBC corrected for nucl RBC Auto (Bld) [#/Vol] 6.2 10*3/uL 4.1-10.5 [facility] Lymphocytes Auto (Bld) [#/Vo l]Ordered By: Gerry Nelson on 08-22-2023 Lymphocytes (Bld) [#/Vol] 0.9 10*3/uL 1.00-4.8 [facility] Lymphocytes/100 WBC Auto (Bl d)Ordered By: Gerry Nelson on 08-22-2023 Lymphocytes/100 WBC (Bld) 14.3 % . [facility] MCH Auto (RBC) [Entitic mass ]Ordered By: Gerry Nelson on 08-22-2023 MCH (RBC) [Entitic mass] 32.7 pg 27.5-35.2 [facility] MCHC Auto (RBC) [Mass/Vol]Or dered By: Gerry Nelson on 08-22-2023 MCHC (RBC) [Mass/Vol] 34.0 g/dL 32.5-35.6 [facility] MCV Auto (RBC) [Entitic vol] Ordered By: Gerry Nelson on 08-22-2023 MCV (RBC) [Entitic vol] 96.1 fL 83.5-101 [facility] Monocytes Auto (Bld) [#/Vol] Ordered By: Gerry Nelson on 08-22-2023 Monocytes (Bld) [#/Vol] 0.5 10*3/uL 0.0-0.8 [facility] Monocytes/100 WBC Auto (Bld) Ordered By: Gerry Nelson on 08-22-2023 Monocytes/100 WBC (Bld) 7.4 % . [facility] Neutrophils Auto (Bld) [#/Vo l]Ordered By: Gerry Nelson on 08-22-2023 Neutrophils (Bld) [#/Vol] 4.7 10*3/uL 1.8-7.7 [facility] Neutrophils/100 WBC Auto (Bl d)Ordered By: Gerry Nelson on 08-22-2023 Neutrophils/100 WBC (Bld) 75.5 % . [facility] No Panel InformationOrdered By: Gerry Nelson on 08-22-2023 Estimated GFR (CKD-EPI) 21.738 mL/Min [facility] Creatinine Clearance (Chem N/A [facility] Nucleated erythrocytes [Pres ence] in Blood by Automated countOrdered By: Gerry Nelson on 08-22-2023 Nucleated RBC Auto Ql (Bld) 0.0 /100{WBC} 0-0.5 [facility] Platelet mean volume Auto (B ld) [Entitic vol]Ordered By: Gerry Nelson on 08-22-2023 Platelet mean volume (Bld) [Entitic vol] 7.2 fL 6.6-10.1 [facility] Platelets Auto (Bld) [#/Vol] Ordered By: Gerry Nelson on 08-22-2023 Platelets (Bld) [#/Vol] 165 10*3/uL 150-450 [facility] Potassium [Moles/volume] in Serum or PlasmaOrdered By: Gerry Nelson on 08-22-2023 Potassium [Moles/Vol] 4.7 mmol/L 3.5-5.1 [facility] RBC Auto (Bld) [#/Vol]Ordere d By: Gerry Nelson on 08-22-2023 RBC (Bld) [#/Vol] 3.50 10*6/uL 3.90-5.60 [facility] Serum or plasma anion gap de terminationOrdered By: Gerry Nelson on 08-22-2023 Anion gap [Moles/Vol] 12.7 mmol/L 6.0-15.0 [facility] Sodium [Moles/volume] in Ser um or PlasmaOrdered By: Gerry Nelson on 08-22-2023 Sodium [Moles/Vol] 139 mmol/L 136-145 [facility] Urea nitrogen [Mass/volume] in Serum or PlasmaOrdered By: Gerry Nelson on 08-22-2023 Urea nitrogen [Mass/Vol] 43 mg/dL 7-25 [facility] WBC Auto (Bld) [#/Vol]Ordere d By: Gerry Nelson on 08-22-2023 WBC (Bld) [#/Vol] 6.2 10*3/uL 4.1-10.5 [facility] Glucose mean value [Mass/vol ume] in Blood Estimated from glycated hemoglobinon 08-06-2023 Average glucose Estimated from glycated hemoglobin (Bld) [Mass/Vol] 163 mg/dL [facility] Laboratory - Hematology and Cell countson 08-06-2023 HbA1c (Bld) [Mass fraction] 7.3 % 4.5-6.2 [facility] Comment on above: ADA RECOMMENDED LIMI T 4.0 - 6.0ADA THERAPEUTIC TARGET < 7.0ACTION SUGGESTED> 7.0 Lab Reportson 04-09-2022 Lab Reports [id number] Normal [facility] CBC AUTO DIFFon 04-05-2022 BASO # 0.0 103/ul Normal 0.0-0.1 [facility] Comment on above: Performed By: #### C BC #### [facility] [address] [address] [address] Dave Duffy Basophils/100 WBC (Bld) 0.2 % Normal 0.2-2.0 [facility] Comment on above: Performed By: #### C BC #### [facility] [address] [place] [address] Dr. Dave Duffy EO # 0.2 103/ul Normal 0.0-0.7 [facility] Comment on above: Performed By: #### C BC #### [facility] [address] [place] [address] Dr. Dave Duffy Eosinophils/100 WBC (Bld) 2.5 % Normal 0.9-7.0 [facility] Comment on above: Performed By: #### C BC #### [facility] [address] [place] [address] Dr. Dave Duffy Erythrocyte distribution width (RBC) [Ratio] 12.3 % Normal 11.0-15.0 [facility] Comment on above: Performed By: #### C BC #### [facility] [address] [place] [address] Dr. Dave Duffy Hematocrit (Bld) [Volume fraction] 32.8 % Critically low 42.0-54.0 [facility] Comment on above: Performed By: #### C BC #### [facility] [address] [place] [address] Dr. Dave Duffy Hemoglobin (Bld) [Mass/Vol] 11.4 g/dL Critically low 14.0-18.0 [facility] Comment on above: Performed By: #### C BC #### [facility] [address] [place] [address] Dr. Dave Duffy IG # 0.03 10e3/ul Normal 0.00-0.03 [facility] Comment on above: Performed By: #### C BC #### [facility] [address] [place] [address] Dr. Dave Duffy IG % 0.5 % Normal 0.0-0.5 [facility] Comment on above: Performed By: #### C BC #### [facility] [address] [place] [address] Dr. Dave Duffy LYMPH # 1.2 103/ul Normal 1.2-3.8 [facility] Comment on above: Performed By: #### C BC #### [facility] [address] [place] [address] Dr. Dave Duffy Lymphocytes/100 WBC (Bld) 18.9 % Critically low 20.5-60.0 [facility] Comment on above: Performed By: #### C BC #### [facility] [address] [place] [address] Dr. Dave Duffy MANUAL DIFF REQ NO Normal [facility] Comment on above: Performed By: #### C BC #### [facility] [address] [place] [address] Dr. Dave Duffy MCH (RBC) [Entitic mass] 32.8 pg Normal 25.9-34.0 [facility] Comment on above: Performed By: #### C BC #### [facility] [address] [place] [address] Dr. Dave Duffy MCHC (RBC) [Mass/Vol] 34.8 g/dL Normal 29.9-35.2 [facility] Comment on above: Performed By: #### C BC #### [facility] [address] [place] [address] Dr. Dave Duffy MCV (RBC) [Entitic vol] 94.3 fL Critically high 80.0-94 .0 [facility] Comment on above: Performed By: #### C BC #### [facility] [address] [place] [address] Dr. Dave Duffy MONO # 0.5 103/ul Normal 0.3-0.8 [facility] Comment on above: Performed By: #### C BC #### [facility] [address] [place] [address] Dr. Dave Duffy Monocytes/100 WBC (Bld) 8.9 % Normal 1.7-12.0 [facility] Comment on above: Performed By: #### C BC #### [facility] [address] [address] [address] Dave Duffy NEUT # 4.2 103/ul Normal 1.4-6.5 [facility] Comment on above: Performed By: #### C BC #### [facility] [address] [place] [address] Dr. Dave Duffy Neutrophils/100 WBC (Bld) 69.0 % Normal 43.0-75.0 [facility] Comment on above: Performed By: #### C BC #### [facility] [address] [place] [address] Dr. Dave Duffy Platelet mean volume (Bld) [Entitic vol] 8.7 fL Critically low 9.5-13.5 [facility] Comment on above: Performed By: #### C BC #### [facility] [address] [place] [address] Dr. Dave Duffy PLT 166 103/ul Normal 150-450 [facility] Comment on above: Performed By: #### C BC #### [facility] [address] [place] [address] Dr. Dave Duffy RBC 3.48 106/ul Critically low 4.70-6.10 [facility] Comment on above: Performed By: #### C BC #### [facility] [address] [place] [address] Dr. Dave Duffy WBC 6.1 103/ul Normal 4.0-11.0 [facility] Comment on above: Performed By: #### C BC #### [facility] [address] [place] [address] Dr. Dave Duffy LIPID PROFILEon 04-05-2022 CHOL-HDL RATIO NORM SEE BELOW Normal [facility] Comment on above: Result Comment: 3.3 - 4.4 LOW RISK 4.4 - 7.1 AVERAGE RISK 7.1 - 11.0 MODERATE RISK >11.0 HIGH RISK Performed By: #### C MP, LIPID #### [facility] [address] [address] [address] Dave Duffy Cholesterol [Mass/Vol] 106 mg/dL Normal <=200 Th [facility] Comment on above: Performed By: #### C MP, LIPID #### [facility] [address] [address] [address] Dave Duffy Cholesterol in HDL [Mass/Vol] 36 mg/dL Critically low 40-60 [facility] Comment on above: Performed By: #### C MP, LIPID #### [facility] [address] [address] [address] Dave Duffy Cholesterol in LDL [Mass/Vol] 43.4 mg/dL Normal [facility] Comment on above: Performed By: #### C MP, LIPID #### [facility] [address] [address] [address] Dave Duffy Cholesterol.total/Choles terol in HDL [Mass ratio] 2.9 {ratio} Normal [facility] Comment on above: Performed By: #### C MP, LIPID #### [facility] [address] [address] [address] Dave Duffy HDL NORMAL > or = 60 mg/dl - LOW CARDIOVASCULAR RISK <40 mg/dl - HIGH CARDIOVASCULAR RISK Normal [facility] Comment on above: Performed By: #### C MP, LIPID #### [facility] [address] [address] [address] Dave Duffy LDL CALC NORMAL SEE BELOW Normal [facility] Comment on above: Result Comment: <100 mg/dl OPTIMAL 100 - 129 mg/dl NEAR OR ABOVE OPTIMAL 130 - 159 mg/dl BORDERLINE HIGH 160 - 189 mg/dl HIGH >190 mg/dl VERY HIGH Performed By: #### C MP, LIPID #### [facility] [address] [address] [address] Dave Duffy Triglyceride [Mass/Vol] 133 mg/dL Normal <=150 T [facility] Comment on above: Performed By: #### C MP, LIPID #### [facility] [address] [place] [address] Dr. Dave Duffy VLDL CALC 26.6 mg/dL Normal [facility] Comment on above: Performed By: #### C MP, LIPID #### [facility] [address] [place] [address] Dr. Dave Duffy MICROALBUMIN, RAND URon 11-0 mALB 19.6 mg/L Normal <=30.0 [facility] Comment on above: Performed By: #### M ALBR #### [facility] [address] [place] [address] Dr. Dave Duffy PROF 14(COMP METB)on 022 Albumin [Mass/Vol] 3.6 g/dL Normal 3.4-5.0 [facility] Comment on above: Performed By: #### C MP, LIPID #### [facility] [address] [place] [address] Dr. Dave Duffy Albumin/Globulin [Mass ratio] 1.2 {ratio} Normal [facility] Comment on above: Performed By: #### C MP, LIPID #### [facility] [address] [place] [address] Dr. Dave Duffy ALP [Catalytic activity/Vol] 102 U/L Normal 46-116 [facility] Comment on above: Performed By: #### C MP, LIPID #### [facility] [address] [place] [address] Dr. Dave Duffy ALT [Catalytic activity/Vol] 22 U/L Normal 16-63 [facility] Comment on above: Performed By: #### C MP, LIPID #### [facility] [address] [place] [address] Dr. Dave Duffy Anion gap [Moles/Vol] 10.8 mmol/L Normal [facility] Comment on above: Performed By: #### C MP, LIPID #### [facility] [address] [place] [address] Dr. Dave Duffy AST [Catalytic activity/Vol] 13 U/L Critically low 15-37 [facility] Comment on above: Performed By: #### C MP, LIPID #### [facility] [address] [place] [address] Dr. Dave Duffy Bilirubin [Mass/Vol] 0.5 mg/dL Normal 0.2-1.0 [facility] Comment on above: Performed By: #### C MP, LIPID #### [facility] [address] [place] [address] Dr. Dave Duffy Calcium [Mass/Vol] 8.6 mg/dL Normal 8.5-10.1 [facility] Comment on above: Performed By: #### C MP, LIPID #### [facility] [address] [place] [address] Dr. Dave Duffy Chloride [Moles/Vol] 107 mmol/L Normal 98-107 [facility] Comment on above: Performed By: #### C MP, LIPID #### [facility] [address] [place] [address] Dr. Dave Duffy CO2 [Moles/Vol] 25.7 mmol/L Normal 21.0-32.0 [facility] Comment on above: Performed By: #### C MP, LIPID #### [facility] [address] [place] [address] Dr. Dave Duffy Creatinine [Mass/Vol] 2.99 mg/dL Critically high 0.70-1.30 [facility] Comment on above: Performed By: #### C MP, LIPID #### [facility] [address] [place] [address] Dr. Dave Duffy EGFR-AF PALAUAN 25 mL/min/1.73m2 Critically low >=60 [facility] Comment on above: Performed By: #### C MP, LIPID #### [facility] [address] [place] [address] Dr. Dave Duffy EGFR-NON AF PALAUAN 21 mL/min/1.73m2 Critically low >=60 [facility] Comment on above: Performed By: #### C MP, LIPID #### [facility] [address] [place] [address] Dr. Dave Duffy Globulin (S) [Mass/Vol] 3.1 g/dL Normal T [facility] Comment on above: Performed By: #### C MP, LIPID #### [facility] [address] [address] [address] Dave Duffy Glucose [Mass/Vol] 106 mg/dL Normal 74-106 [facility] Comment on above: Performed By: #### C MP, LIPID #### [facility] [address] [place] [address] Dr. Dave Duffy Potassium [Moles/Vol] 4.5 mmol/L Normal 3.5-5.1 [facility] Comment on above: Performed By: #### C MP, LIPID #### [facility] [address] [place] [address] Dr. Dave Duffy Protein [Mass/Vol] 6.7 g/dL Normal 6.4-8.2 [facility] Comment on above: Performed By: #### C MP, LIPID #### [facility] [address] [place] [address] Dr. Dave Duffy Sodium [Moles/Vol] 139 mmol/L Normal 136-145 [facility] Comment on above: Performed By: #### C MP, LIPID #### [facility] [address] [place] [address] Dr. Dave Duffy Urea nitrogen [Mass/Vol] 43.0 mg/dL Critically high 7.0-18 .0 [facility] Comment on above: Performed By: #### C MP, LIPID #### [facility] [address] [place] [address] Dr. Dave Duffy Urea nitrogen/Creatinine [Mass ratio] 14.4 mg/mg Normal [facility] Comment on above: Performed By: #### C MP, LIPID #### [facility] [address] [place] [address] Dr. Dave Duffy Ambulatory Visit Summaryon 1 Ambulatory Visit Summary EUGENIO CREWS :1945 Visit Date:04/03/2022 Ambulatory Visit Instructions Your Diagnosis BPH with urinary obstruction Elevated PSA Tests Performed Urnls Dip Stick Auto w/o Microscopy POC 81435 Your Care Team Attending Physician - Jenaro GUEVARA MD Primary Care Physician - GERRY BARTON DO This Is Your Medications List Contact prescribing physician if questions or concerns aspirin atorvastatin carvedilol glimepiride insulin detemir (Levemir) linagliptin (Tradjenta 5 mg oral tablet) linagliptin (Tradjenta) lisinopril Procedures Performed Cystoscopy (06/15/2014), Urodynamics (06/26/2012), Cystoscopy (06/14/2012), Cholecystectomy (2011), Colonoscopy, EGD - Esophagogastroduode noscopy, Laparoscopy, Partial resection of colon, Total knee arthroplasty, Transurethral biopsy prostate, TURP - Transurethral resection of prostate. Discharge Vitals Heart Rate (Peripheral) 76 Respiratory Rate 16 Blood Pressure 140/82 Height 187 cm Height 74 in Weight 108 kg Weight 237.6 lb BMI 30.88 What to do next You Need to Schedule the Following Appointments Follow Up with JADE DOYLE, BERRY Gaspar When: Only if needed Where: [facility] [address], [place] [address]- [phone] Medications What How Much When Instructions Unchanged [...] Urnls Dip Stick Auto w/o Microscopy POC 86594 (04/03/2022) Bilirubin Urine Dipstick - Negative Blood Urine Dipstick - Trace-intact Glucose Urine Dipstick - 2+ 500 mg/dl Ketones Urine Dipstick - Trace - 5 mg/dl Leukocytes Urine Dipstick - Negative Nitrite Urine Dipstick - Negative Protein Urine Dipstick - 2+ (100 mg/dl) Specific [place] Urine Dipstick - >=1.030 Urine Appearance Urine [...] including vitamins, herbs, eye drops, creams, and wsof-jix-rerauhq medicines. This also includes: ? Medicines to assist with hair growth, such as finasteride. ? Any recent exposure to a medicine called diethylstilbestrol. ? Any blood disorders you have. ? Any recent procedures you have had, especially any procedures involving the prostate or rectum. ? Any medical conditions you have. ? An (more content not included)... Normal [facility] Patient Educationon -31-20 22 Patient Education Oncology Prostate-Specific Antigen Test [...] including vitamins, herbs, eye drops, creams, and zgxr-api-dowfraf medicines. This also includes: ? Medicines to [...] 06/23/2005 Document Revised: 05/03/2018 Document Reviewed: 02/25/2018 [employer] Patient Education ? 2019 [employer] Christian Bhatt [facility] Urology Office/Clinic Noteon 04-03-2022 Urology [...] [facility]rology [address], [place] [address]- [phone] Additional Instructions: Patient Education Prostate-Specific Antigen Test [...] Cystoscopy (06/14/2012), Cholecystectomy (2011), Colonoscopy, EGD - Esophagogastroduode noscopy, Laparoscopy, Partial resection of colon, Total knee [...] Dipstick: 2+ (100 mg/dl) (04/03/22 12:35:00) Specific [place] Urine Dipstick: >=1.030 (04/03/22 12:35:00) Urine Appearance Urine Dipstick: Clear (04/03/22 12:35:00) Urine Color Urine Dipstick: Yellow (04/03/22 12:35:00) Urobilinogen Urine Dipstick: Normal 0.2-1 EU/dl (04/03/22 12:35:00) pH Urine Dipstick: 5 (04/03/22 12:35:00) Normal [facility] Comment on above: Result Comment: Elec tronically Signed By: Jenaro GUEVRAA MD\.br\Date and Time Signed: 04/03/22 13:40 EDT\.br\Electronically [...] by: ALONZO MADRIGAL Date: 2022-03-05 11:26 Normal [facility] 02-24-2022 [facility] Telephone ([employer]) ---- EUGENIO CREWS ([id number]) 1945 M TRN Date Time Provider Department 02/24/22 ROSELYN PAGE During your visit today, we recorded the following information about you: ARIELLE Fuentes 02/24/2022 12:09 PM Signed Patient appears on the First Time Treatment List for a non-oncology treatment. No psychosocial assessment is indicated. NATE Fuentes-Steff Allergies As of Date: 02/24/2022 Noted Allergy Reaction PIPERACILLIN-TAZOBA CTAM 09/14/2009 2 - Rash Comments: Pt developed [...] Encounter Status:Closed by ROSELYN PAGE on 02/24/22 [facility] CNPN Telephone (HEMTSA) ---- EUGENIO CREWS ([id number]) 1945 [facility] Date Time Provider Department 02/23/22 EAMON BUSTAMANTE [...] As of Date: 02/23/2022 Noted Allergy Reaction PIPERACILLIN-TAZOBA CTAM 09/14/2009 2 - Rash Comments: Pt developed [...] Encounter Status:Closed by EAMON [facility]USTAMANTE [facility]02[facility]22 [facility] EUGENIO CREWS ([id number]) 1945 M TRN Date Time Provider Department 02/21/22 AILEEN JENKINS [...] accessed 2 days in a row at [facility] and there was swelling above port site. Dr. Reyes thought perhaps the nurse missed as they use a smaller port at [place] which is where he had it placed. Informed that if we have swelling while patient is here, we would not proceed. verbalized understanding. PSS: please call patient/ to schedule on infusion schedule for possible 2 doses of activase. Jamia: Can you get an xray that was taken of the port at [facility] recently. ( states they did one) Aileen Lee 02/21/2022 1:12 PM Signed Xray report scanned. Allyssa Rueda 02/21/2022 1:52 PM Signed Patient has been scheduled for activase on Sunday, 02/27. Called and spoke with regarding this appointment. Allyssa Rueda Allergies As of Date: 02/21/2022 Noted Allergy Reaction PIPERACILLIN-TAZOBA CTAM 09/14/2009 2 - Rash Comments: Pt developed severe rash after zosyn initiated KETOROLAC 09/23/2020 16 - Unknown Comments: kidney killer Date Reviewed: 02/21/2022 Reviewed by: Yoly David PA-C - Fully Assessed Reason for Visit: port issues [Other] Visit Diagnosis:Obstructi on of central line, initial encounter ([facility]) [T82.594A] Prescriptions as of 02/21/2022 - atorvastatin [...] Status:Closed by AILEEN JENKINS on 02/21/22 Normal [facility] GLYCOHEMOGLOBIN A1Con 2021 ADA RECOMMENDATION SEE BELOW Normal [facility] Comment on above: Result Comment: ADA RECOMMENDED LIMIT 4.0 - 6.0 ADA THERAPEUTIC TARGET < 7.0 ACTION SUGGESTED > 7.0 Performed By: #### D ATA1C #### [facility] [address] [address] [address] Dave Duffy Glucose [Mass/Vol] 166 mg/dL Normal [facility] Comment on above: Performed By: #### D ATA1C #### [facility] [address] [address] [address] Dave Duffy HbA1c (Bld) [Mass fraction] 7.4 % Critically high 4.5-6.2 [facility] Comment on above: Performed By: #### D ATA1C #### [facility] [address] [address] [address] Dave Duffy XR CHEST 2 Von [...] by: ALONZO MADRIGAL Date: 2022-02-07 12:00 Normal [facility] POINT OF CARE GLUCOSEon - Glucose [Mass/Vol] 163 mg/dL Critically high 74-[address] [facility] Comment on above: Performed By: #### P OCGLUC #### [facility] [address] [place] [address] Dr. Dave Zaidi 04-26-2021 CNPN Telephone (HEMASA) ---- EUGENIO CREWS ([id number]) 1945 [facility] Date Time Provider Department 04/26/21 ELIA BAL During your visit today, we recorded the following information about you: Elia Bal RN 04/26/2021 2:52 PM Signed Received call from [facility] at Dr Barton's office stating they needed to know what pt's port is being flushed with. [facility] informed pt is getting 20cc NS followed by 5cc Heparin. [facility] verbalizes understanding and denies further needs at this time. Elia Bal RN Allergies As of Date: 04/26/2021 Noted Allergy Reaction PIPERACILLIN-TAZOBA CTAM 09/14/2009 2 - Rash Comments: Pt developed severe rash after zosyn initiated KETOROLAC 09/23/2020 16 - Unknown Comments: kidney killer Date Reviewed: 03/25/2021 Reviewed by: Kendall Honeycutt APRN.TREASURY CONSULTANT - Fully Assessed Reason for Visit: Medication Question [5834] Prescriptions as of 04/26/2021 - atorvastatin (LIPITOR) [...] Encounter Status:Closed by ELIA BAL on 04/26/21 [facility] PINOOVSRob 03-23-2021 CNOVSP Visit (SP) Office (HEMASA) ---- EUGENIO CREWS ([id number]) 1945 M TRN Date Time Provider Department 03/23/21 1:30 PM KENDALL HONEYCUTT During your visit today, we recorded the following information about you: Temperature Pulse Respiration Blood pressure 97.4 degrees 81/minute 16/minute 141/54 Weight Height 105.9 kg 1.854 m Kendall Honeycutt APRN.CNP 03/25/2021 12:42 PM Signed Patient: Eugenio Crews Location: [facility] : 1945 Attending Physician: Dr. Kings Johns [...] colonoscopy in September with Dr. Reyes in [place]. He denies fevers, chills, night sweats and [...] mouth twice daily with meals. No current facility-administer ed medications for this visit. Allergies: No Known Allergies REVIEW OF SYSTEMS: Constitutional: No recent fevers, chills or sweats. Weight and appetite stable Cardiovascular: No chest pain, dyspnea, palpitations, orthopnea, PND, ankle edema. Pulmonary: No dyspnea, unexplained cough. GI: No dysphagia/odynophag ia, problematic reflux, constipation, diarrhea, changes in stool habits, hematochezia, melena. : No new reported symptoms. Neuro: No new balance problems, peripheral weakness/paresthesi as or numbness of concern. Musculoskeletal: No new [...] contact K (more content not included)... Normal [facility] Comp Metabolic Panelon 03-23 Albumin [Mass/Vol] 3.9 g/dL Normal 3.9-4.9 [facility] ALP [Catalytic activity/Vol] 126 U/L High 38-113 [facility] ALT [Catalytic activity/Vol] 13 U/L Normal 10-54 [facility] Anion gap [Moles/Vol] 7 mmol/L Low 9-18 [facility] AST [Catalytic activity/Vol] 12 U/L Low 14-40 [facility] Bilirubin [Mass/Vol] 0.3 mg/dL Normal 0.2-1.3 [facility] Calcium [Mass/Vol] 8.9 mg/dL Normal 8.5-10.2 [facility] Chloride [Moles/Vol] 107 mmol/L High 97-105 [facility] CO2 [Moles/Vol] 20 mmol/L Low 22-30 [facility] Creatinine [Mass/Vol] 2.54 mg/dL High 0.73-1.22 [facility] eGFR- Amer. 30 Normal [facility] eGFR-All Other Races 25 . Normal [facility] Comment on above: Result Comment: eGFR (Estimated [...] GFR. Glucose [Mass/Vol] 169 mg/dL High 74-99 [facility] Comment on above: Result Comment: The [place] [employer] Association (ADA) provides guidance for cutoff [...] Standards of Medical Care in Diabetes 2016, [place] [employer]. Diabetes Care. 2016.39(Suppl 1). Potassium [Moles/Vol] 4.7 mmol/L Normal 3.7-5.1 [facility] Protein [Mass/Vol] 6.2 g/dL Low 6.3-8.0 [facility] Sodium [Moles/Vol] 134 mmol/L Low 136-144 [facility] Urea nitrogen [Mass/Vol] 29 mg/dL High 9-24 [facility] EPOon 03-23-2021 EPO 18.4 mIU/mL Normal 2.6-18.5 [facility] Comment on above: Result Comment: Test analyzed by the [employer] DxI method. Performed By: #### E PO #### [facility] [address] [place], [place] [address] Fecal Occult Bld Tston 03-23 Immuno FOB Negative Normal Negative [facility] Comment on above: Result Comment: This test was developed and its performance characteristics determined by [facility]'s [facility] Pathology and Laboratory Medicine [place] ([facility]). It has not been cleared or approved by the FDA. [facility] is regulated under CLIA as qualified to perform high complexity testing. This test is used for clinical purposes. It should not be regarded as investigational or for research. Performed By: #### I FOBT #### [facility] [address] [place], [place] [address] Ferritinon 03-23-2021 Ferritin [Mass/Vol] 294.0 ng/mL Normal 30.3-565.7 [facility] Comment on above: Performed By: #### E PO #### [facility] [address] [address] Folate, Serumon 03-23-2021 Folate [Mass/Vol] 6.6 ng/mL Normal >4.7 [facility] Comment on above: Performed By: #### E PO #### [address] [address] [place] [address] Iron and TIBCon 03-23-2021 Iron [Mass/Vol] 70 ug/dL Normal 41-186 [facility] Comment on above: Performed By: #### E PO #### [place] [address] TIBC 223 ug/dL Low 232-386 [facility] Comment on above: Performed By: #### E PO #### [address] [address] [place] [address] Transferrin Saturatn 31 % Normal 15-57 [facility] Comment on above: Performed By: #### E PO #### [address] [place] [address] [place] [address] LDon 03-23-2021 LD 192 U/L Normal 135-225 [facility] Comment on above: Performed By: #### E PO #### [address] [address] [place] [address] Protein Electrophor.on 03-23 Albumin [Mass/Vol] 3.24 g/dL Low 3.37-4.23 [facility] Comment on above: Performed By: #### F ERR, B12, SEPG, IRON, TSH, TRANSF, SERFOL ####[facility] [phone] Alpha 1 Globulin 0.28 gm/dL Normal 0.18-0.31 [facility] Comment on above: Performed By: #### F ERR, B12, SEPG, IRON, TSH, TRANSF, SERFOL ####[place] [phone] Alpha 2 Globulin 0.75 gm/dL Normal 0.52-0.97 [facility] Comment on above: Performed By: #### F ERR, B12, SEPG, IRON, TSH, TRANSF, SERFOL ####[place] [phone] Beta Globulin 0.78 gm/dL Low 0.84-1.36 [facility] Comment on above: Performed By: #### F ERR, B12, SEPG, IRON, TSH, TRANSF, SERFOL ####[place] [phone] Gamma Globulin 0.65 gm/dL Low 0.70-1.44 [facility] Comment on above: Performed By: #### F ERR, B12, SEPG, IRON, TSH, TRANSF, SERFOL ####[place] [phone] Interpretation SEE COMMENT Normal [facility] Comment on above: Result Comment: No d efinitive M protein is identified on protein electrophoresis. Hypogammaglobulinemia is present, which can be seen in the setting of monoclonal gammopathy. If clinically indicated, monoclonal protein analysis and serum free light chain analysis are suggested to evaluate further for monoclonal gammopathy. Performed By: #### F ERR, B12, SEPG, IRON, TSH, TRANSF, SERFOL ####[place] [phone] M Protein Location N/A Normal [facility] Comment on above: Performed By: #### F ERR, B12, SEPG, IRON, TSH, TRANSF, SERFOL ####[facility] [place], [place] [phone] M Petar Concentratn 0.00 gm/dL Normal 0.00 [facility] Comment on above: Performed By: #### F ERR, B12, SEPG, IRON, TSH, TRANSF, SERFOL ####[facility] [place], [place] [phone] Protein [Mass/Vol] 5.7 g/dL Low 6.3-8.0 [facility] Comment on above: Performed By: #### F ERR, B12, SEPG, IRON, TSH, TRANSF, SERFOL ####[facility] [place], [place] [phone] SPE Staff Review Reviewed by Enrrique Chowdhury M.D., PhD ([id number]) Normal [facility] Comment on above: Performed By: #### F ERR, B12, SEPG, IRON, TSH, TRANSF, SERFOL ####[facility] [place], [place] [phone] Remote CBCDIF (for [facility] use o nly)on 03-23-2021 Abs Baso <0.03 Normal <0.11 [facility] Abs Crawford 0.37 k/uL Normal <0.87 [facility] Abs Neut 3.53 k/uL Normal 1.45-7.50 [facility] Absolute nRBC <0.01 Normal <0.01 [facility] Basophils/100 WBC (Bld) 0.4 % Normal C [facility] DTYPE Auto Diff Normal [facility] Eosinophils (Bld) [#/Vol] 0.09 10*3/uL Normal <0.46 [facility] Eosinophils/100 WBC (Bld) 1.7 % Normal [facility] Erythrocyte distribution width (RBC) [Ratio] 13.4 % Normal 11.5-15.0 [facility] Hematocrit (Bld) [Volume fraction] 29.3 % Low 39.0-51.0 [facility] Hemoglobin (Bld) [Mass/Vol] 10.0 g/dL Low 13.0-17.0 [facility] Lymphocytes (Bld) [#/Vol] 1.17 10*3/uL Normal 1.00-4.00 [facility] Lymphocytes/100 WBC (Bld) 22.5 % Normal [facility] MCH 31.7 pG Normal 26.0-34.0 [facility] MCHC (RBC) [Mass/Vol] 34.1 g/dL Normal 30.5-36.0 [facility] MCV (RBC) [Entitic vol] 93.0 fL Normal 80.0-100.0 C [facility] Monocytes/100 WBC (Bld) 7.1 % Normal C [facility] Neutrophils/100 WBC (Bld) 68.3 % Normal [facility] NRBCs 0.0 /100 WBC Normal 0 [facility] Platelet mean volume (Bld) [Entitic vol] 8.5 fL Low 9.0-12.7 [facility] Platelets (Bld) [#/Vol] 162 10*3/uL Normal 150-400 [facility] RBC (Bld) [#/Vol] 3.15 10*6/uL Low 4.20-6.00 [facility] WBC (Bld) [#/Vol] 5.20 10*3/uL Normal 3.70-11.00 [facility] Reticulocyteon 03-23-2021 Abs Retic 0.044 M/uL Normal 0.0180-0.1000 [facility] Comment on above: Performed By: #### E PO #### [facility] [address] [place], [place] [address] Retic% 1.4 % Normal 0.4-2.0 [facility] Comment on above: Performed By: #### E PO #### [facility] [address] [place], [place] [address] TSHon 03-23-2021 TSH Qn 2.350 m[IU]/L Normal 0.270-4.200 [facility] Comment on above: Performed By: #### E PO #### [facility] [address] [place], [place] [address] Transferrinon 03-23-2021 Transferrin [Mass/Vol] 181 mg/dL Low 200-360 [facility] Comment on above: Performed By: #### E PO #### [facility] [address] [place], [place] [address] Vitamin B12on 03-23-2021 Cobalamin (Vitamin B12) [Mass/Vol] 654 pg/mL Normal 232-1245 [facility] Comment on above: Performed By: #### E PO #### [facility] [address] [place], [place] [address] Vital Signs Date Time Vital Sign Value Performing Clinician Facility 11-28-2023 08:37-0400 Body height 182.88 cm [facility] 11-28-2023 08:37-0400 Body mass index (BMI) [Ratio] 29.6 kg/m2 [facility] 11-28-2023 08:37-0400 Body weight 99.05 kg [facility] 11-28-2023 08:37-0400 Diastolic blood pressure 80 mm[Hg] [facility] 11-28-2023 08:37-0400 Heart rate 75 /min [facility] 11-28-2023 08:37-0400 Respiratory rate 12 /min [facility] 11-28-2023 08:37-0400 Systolic blood pressure 139 mm[Hg] [facility] 11-02-2023 11:53-0400 Body height 182.88 cm [facility] 11-02-2023 11:53-0400 Body mass index (BMI) [Ratio] 31.1 kg/m2 [facility] 11-02-2023 11:53-0400 Body weight 104.01 kg [facility] 11-02-2023 11:53-0400 Diastolic blood pressure 74 mm[Hg] [facility] 11-02-2023 11:53-0400 Heart rate 60 /min [facility] 11-02-2023 11:53-0400 Respiratory rate 12 /min [facility] 11-02-2023 11:53-0400 Systolic blood pressure 110 mm[Hg] [facility] 08-28-2023 15:35-0400 Diastolic blood pressure 63 mm[Hg] DO Gerry Ball Work Phone: [facility] 08-28-2023 15:35-0400 Heart rate 61 /min DO Gerry Ball Work Phone: [facility] 08-28-2023 15:35-0400 Respiratory rate 14 /min DO Gerry Ball Work Phone: [facility] 08-28-2023 15:35-0400 SaO2% (BldA) [Mass fraction] 97 % DO Gerry Ball Work Phone: [facility] 08-28-2023 15:35-0400 Systolic blood pressure 102 mm[Hg] DO Gerry Ball Work Phone: [facility] 08-28-2023 14:48-0400 Body temperature 98 [degF] DO Gerry Ball Work Phone: [facility] 08-28-2023 14:23-0400 Inhaled oxygen flow rate 8 L/min DO Gerry Ball Work Phone: [facility] 08-28-2023 13:02-0400 Body mass index (BMI) [Ratio] 30.4 kg/m2 DO Gerry Ball Work Phone: [facility] 08-28-2023 12:21-0400 Body height 187.96 cm DO Gerry Ball Work Phone: [facility] 08-28-2023 12:21-0400 Body weight 107.5 kg DO Gerry Ball Work Phone: [facility] 07-30-2023 08:30-0500 Body height 185.42 cm [facility] 07-30-2023 08:30-0500 Body mass index (BMI) [Ratio] 31.6 kg/m2 [facility] 07-30-2023 08:30-0500 Body weight 108.86 kg [facility] 07-30-2023 08:30-0500 Diastolic blood pressure 75 mm[Hg] [facility] 07-30-2023 08:30-0500 Heart rate 80 /min [facility] 07-30-2023 08:30-0500 Respiratory rate 16 /min [facility] 07-30-2023 08:30-0500 Systolic blood pressure 157 mm[Hg] [facility] 03-27-2023 08:30-0400 Body height 185.42 cm Gerry Ball Other [facility] Other 03-27-2023 08:30-0400 Body mass index (BMI) [Ratio] 30.13 kg/m2 Gerry Ball Other [facility] Other 03-27-2023 08:30-0400 Body weight 103.6 kg Gerry Ball Other [facility] Other 03-27-2023 08:30-0400 Diastolic blood pressure 76 mm[Hg] Gerry Ball Other [facility] Other 03-27-2023 08:30-0400 Respiratory rate 12 /min Gerry Ball Other [employer] Other 03-27-2023 08:30-0400 Systolic blood pressure 139 mm[Hg] Gerry Ball Other [facility] Other 04-03-2022 12:40-0400 Blood Pressure Location Jenaro GUEVARA [facility] 04-03-2022 12:40-0400 Diastolic blood pressure 82 mm[Hg] Jenaro GUEVARA [facility] 04-03-2022 12:40-0400 Heart rate 76 /min Jenaro GUEVARA [facility] 04-03-2022 12:40-0400 Respiratory rate 16 /min Jenaro GUEVARA [facility] 04-03-2022 12:40-0400 Systolic blood pressure 140 mm[Hg] Jenaro GUEVARA [facility] Encounters Encounter Date Encounter Type Care Provider Facility Start: 11-28-2023 End: 11-28-2023 ambulatory [facility] Work Phone: Start: 11-28-2023 End: 11-28-2023 Patient encounter [facility] Work Phone: Start: 11-02-2023 End: 11-02-2023 ambulatory DO Gerry Ball Work Phone: [facility] Work Phone: Start: 11-02-2023 End: 11-02-2023 Patient encounter procedure DO Gerry Ball Work Phone: [facility] Physician [facility] Work Phone: Start: 10-31-2023 End: 10-31-2023 ambulatory GERRY W MURCEK Not Available Start: 09-19-2023 End: 09-19-2023 ambulatory GERRY W MURCEK Not Available Start: 09-12-2023 End: 09-12-2023 ambulatory DO Gerry Ball Work Phone: [facility] Work Phone: Start: 09-12-2023 End: 09-12-2023 Patient encounter procedure DO Gerry Ball Work Phone: [facility] Physician [facility] Work Phone: Start: 09-05-2023 End: 09-05-2023 ambulatory GERRY W MURCEK Not Available Start: 08-29-2023 End: 08-29-2023 ambulatory GERRY W MURCEK Not Available Start: 08-28-2023 End: 08-28-2023 ambulatory Gerry Murcek Facility:[facility] Start: 08-28-2023 End: 08-28-2023 Admission to same day surgery center DO Gerry Barton Work Phone: [facility] [place] Start: 08-28-2023 End: 08-28-2023 ambulatory DO Gerry Barton Work Phone: [facility] Work Phone: Start: 08-22-2023 End: 08-22-2023 ambulatory Gerry Nelson Facility:[facility] Start: 08-22-2023 Encounter for preprocedural laboratory examination Gerry Nelson [facility] Start: 08-22-2023 End: 08-22-2023 ambulatory DO Gerry Barton Work Phone: [facility] Work Phone: Start: 08-22-2023 End: 08-22-2023 Patient encounter procedure DO Gerry Barton Work Phone: [facility] Work Phone: Start: 08-10-2023 End: 08-10-2023 Patient encounter procedure DO Gerry Barton Work Phone: [facility] Work Phone: Start: 08-06-2023 Non-patient / Non-visit DO Hayes Barton Work Phone: [facility] Physician [facility] Work Phone: Start: 07-30-2023 End: 07-30-2023 ambulatory [facility] Work Phone: Start: 07-30-2023 End: 07-30-2023 Patient encounter procedure [facility] Work Phone: Start: 07-27-2023 Non-patient / Non-visit [facility] Work Phone: Start: 07-25-2023 End: 07-25-2023 ambulatory TALIB FRASER Not Available Start: 07-03-2023 End: 07-03-2023 ambulatory Gerry Barton Other [employer] Other Start: 07-03-2023 Nursing evaluation o f patient and report Gerry Barton [facility] Start: 05-22-2023 End: 05-22-2023 ambulatory ROCKY HERNANDEZ Not Available Start: 03-29-2023 End: 03-29-2023 ambulatory Gerry Ball Other [employer] Other Start: 03-29-2023 Telephone encounter Gerry Ball [facility] Start: 03-27-2023 End: 03-27-2023 ambulatory Gerry Ball Other [employer] Other Start: 03-27-2023 Patient encounter procedure Gerry Ball [facility] Start: 03-02-2023 End: 03-02-2023 ambulatory Gerry Ball Other [employer] Other Start: 03-02-2023 Office outpatient vi sit 15 minutes Gerry Ball [facility] Start: 03-02-2023 Telephone encounter Gerry Ball [facility] Start: 02-06-2023 End: 02-06-2023 ambulatory Gerry Ball Other [employer] Other Start: 02-06-2023 Nursing evaluation o f patient and report Gerry Ball [facility] Start: 02-06-2023 Telephone encounter Gerry Ball [facility] Start: 01-01-2023 End: 01-01-2023 ambulatory Gerry Ball Other [employer] Other Start: 01-01-2023 Nursing evaluation o f patient and report Gerry Ball [facility] Start: 11-27-2022 End: 11-27-2022 ambulatory Gerry Ball Other [employer] Other Start: 11-27-2022 Nursing evaluation o f patient and report Gerry Ball [facility] Start: 10-18-2022 End: 10-18-[address] GERRY BARTON Facility:[facility] Start: 09-06-2022 End: 09-06-[address] GERRY BARTON Facility:[facility] Start: 09-04-2022 End: 09-04-2022 ambulatory Gerry Barton Other [employer] Other Start: 09-04-2022 Telephone encounter Gerry Barton [facility] Start: 08-28-2022 End: 08-28-2022 ambulatory Gerry Barton Other [employer] Other Start: 08-28-2022 Nursing evaluation o f patient and report Gerry Barton [facility] Start: 07-27-2022 End: 07-27-2022 ambulatory Gerry Barton Other [employer] Other Start: 07-27-2022 Nursing evaluation o f patient and report Gerry Barton [facility] Start: 07-26-2022 End: 07-26-[address] GERRY BARTON Facility:[facility] Start: 07-07-2022 End: 07-07-2022 ambulatory Gerry Barton Other [employer] Other Start: 07-07-2022 Telephone encounter Gerry Barton [facility] Start: 06-26-2022 End: 06-26-2022 ambulatory Gerry Barton Other [employer] Other Start: 06-26-2022 Nursing evaluation o f patient and report Gerry Barton [facility] Start: 06-14-2022 End: 06-14-[address] GERRY BARTON Facility:[facility] Start: 05-17-2022 End: 05-17-[address] GERRY BARTON Facility:[facility] Start: 05-03-2022 End: 05-03-[address] GERRY BARTON Facility:[facility] Start: 04-05-2022 End: 04-06-[address] GERRY BARTON Facility:[facility] Start: 04-03-2022 End: 04-04-2022 ambulatory MD Jenaro GUEVARA Facility:[facility] Start: 04-03-2022 End: 04-03-2022 Patient encounter procedure Jenaro GUEVARA [facility] Start: 03-27-2022 Adult health examination Carlitos Barton Other [facility] Other Start: 03-27-2022 Pre-procedure evalua tion check Gerry Barton Other [facility] Other Start: 03-22-[address] GERRY BARTON Facili ty:H1 Start: 03-13-2022 Telephone encounter Kendall snow APRN.CNP Work Phone: Hematology/Oncology Comment on above: Lab [...] BARTON Facility:H1 Start: 11-12-[address] BLADIMIR REYES . Facility:[facility]1 Start: 11-09-2021 End: 11-10-[address] ALONZO MADRIGAL Facility:[facility]1 Start: 03-23-2021 End: 03-23-2021 ambulatory MARYJO ISAACSPATRICIA [facility] Procedures Date Procedure Procedure Detail Performing Clinician Start: 08-28-2023 Excision of lesion of cheek DO Gerry Barton Work Phone: Start: 03-03-[address] GERRY BARTON Comment on above: Performed By: #### PSAD #### [facility] [address] [place] [address] Dr. Dave Duffy Start: 11-25-2020 Adult depression screening assessment Aileen Jenkins RN Start: 09-23-2020 Colonoscopy Aileen Jenkins RN Start: 06-15-2014 Cystoscopy Jenarorussell GUEVARA Start: 06-26-2012 Urodynamic studies Jenaro GUEVARA Start: 06-14-2012 Cystoscopy Jenaro GUEVARA Start: 06-04-2011 Cholecystectomy Jenaro GUEVARA Colonoscopy Jenaro GUEVARA Depression screening Christi bonilla Bernardo Other Esophagogastroduodenoscopy P lolypuneet GUEVARA H/O: artificial joint Benjam in [place] Other H/O: artificial joint Benjam in [place] Other Laparoscopy Jenaro GUEVARA Partial resection of colon P atripuneet GUEVARA Total knee replacement Zulay GUEVARA Transurethral biopsy prostate Jenarorussell GUEVARA Transurethral prostatectomy Jenarorussell GUEVARA Plan of Treatment Date Care Activity Detail Author Start: 08-28-2023 [facility] Start: 08-28-2023 [facility] Start: 03-23-2022 COLORECTAL CANCER SCREENING COLORECTAL CANCER SCREENING [facility] Start: 03-23-2022 FECAL OCCULT BLOOD FECAL OCCULT BLOO D [facility] Start: 03-13-2022 End: 05-13-2022 CBC W Auto Differential panel - Blood CBC + DIFF Lab Routine Non-Hodgkin's lymphoma, unspecified body region, unspecified non-Hodgkin lymphoma type (HCC) Expected: 03/13/2022, Expires: 05/13/2022 [facility] Work Phone: Comment on above: Expected: 03/13/2022 , Expires: 05/13/2022 Start: 03-13-2022 End: 05-13-2022 Comprehensive metabolic 2000 panel - Serum or Plasma COMP METABOLIC PANEL Lab Routine Non-Hodgkin's lymphoma, unspecified body region, unspecified non-Hodgkin lymphoma type (HCC) Expected: 03/13/2022, Expires: 05/13/2022 [facility] Work Phone: Comment on above: Expected: 03/13/2022 , Expires: 05/13/2022 Start: 03-13-2022 End: 05-13-2022 Lactate dehydrogenase [Enzymatic activity/volume] in Serum or Plasma LD LACTATE DEHYDRO Lab Routine Non-Hodgkin's lymphoma, unspecified body region, unspecified non-Hodgkin lymphoma type (HCC) Expected: 03/13/2022, Expires: 05/13/2022 [facility] Work Phone: Comment on above: Expected: 03/13/2022 , Expires: 05/13/2022 Start: 02-02-2022 Influenza vaccination INFLUENZA (#1) [facility] Start: 11-25-2021 Adult depression screening assessment DEPRESSION SCREENING [facility] Start: 09-23-2021 Colonoscopy COLONOSCOPY [facility] Start: 06-04-2021 ADVANCE DIRECTIVE DISCUSSION ADVANCE DIRECTIVE DISCUSSION [facility] Start: 06-04-2021 DEPRESSION ASSESSMENT DEPRESSION ASS ESSMENT [facility] Start: 04-11-2021 COVID-19 VACCINE (4 - Booster for Pfizer series) COVID-19 VACCINE (4 - Booster for Pfizer series) [facility] Start: 1992 COLOGUARD (FIT-DNA) COLOGUARD (FIT-D NA) [facility] Start: [address] COLONOGRAPHY [facility] Start: 1992 SIGMOIDOSCOPY SIGMOIDOSCOPY [facility] Start: 1966 Urine microalbumin profile DTAP,TDAP,TD (1 - Tdap) [facility] Start: 1965 ANNUAL PCP TEAM AIR TWISTER WINDER ALETHA DISEASE VISIT ANNUAL PCP TEAM CHRONIC DISEASE VISIT [facility] Start: 1965 Hepatitis B surface antibody level LDL CHOLESTEROL [facility] Start: 1965 HEPATITIS C SCREENING HEPATITIS C SC REENING [facility] Start: 1957 3 comp foot exam completed DIABETIC FOOT EXAM [facility] Start: 1957 Hepatitis C antibody , confirmatory test DILATED RETINAL EXAM [facility] Start: 1953 PNEUMOCOCCAL: 65+ (1 - PCV) PNEUMOCOCCAL: 65+ (1 - PCV) [facility] Start: 1952 Hemoglobin A1c/Hemoglobin.total in Blood HBA1C [facility] Patient referral [facility] Phone[facility] Immunizations Immunization Date Immunization Notes Care Provider Fa cili 03-13-2023 COVID-19 Vaccine Pfi zer - Documentation Purposes Only Gerry Barton Other [facility] 03-13-2023 influenza virus vaccine, unspecified formulation [facility] 03-13-2023 influenza, high dose seasonal, preservative-free Gerry Barton Other [facility] Other 02-23-2022 influenza virus vaccine, split virus (incl. purified surface antigen) Gerry Barton Other [facility] Other 02-23-2022 influenza virus vaccine, unspecified formulation [facility] 02-25-2021 influenza virus vaccine, split virus (incl. purified surface antigen) Gerry Barton Other [facility] Other 02-25-2021 influenza virus vaccine, unspecified formulation [facility] 02-25-2021 Seasonal trivalent influenza vaccine, adjuvanted, preservative free Aileen Jenkins RN [facility] 07-28-2020 COVID-19 Vaccine Pfi zer - Documentation Purposes Only Gerry Barton Other [facility] 07-07-2020 COVID-19 Vaccine Pfi zer - Documentation Purposes Only Gerry Barton Other [facility] 02-05-2020 influenza, high-dose , quadrivalent vaccine (FLUZONE HIGH DOSE QUADRIVALENT) Aileen Jenkins RN [facility] 08-17-2019 zoster vaccine recombinant Aileen Jenkins RN [facility] 06-01-2019 zoster vaccine recombinant Aileen Jenkins RN [facility] 03-12-2019 influenza virus vaccine, split virus (incl. purified surface antigen) Gerry Barton Other [facility] Other 03-12-2019 influenza virus vaccine, unspecified formulation [facility] 03-26-2018 influenza virus vaccine, split virus (incl. purified surface antigen) Gerry Barton Other [facility] Other 03-26-2018 influenza virus vaccine, unspecified formulation [facility] 03-26-2018 Seasonal trivalent influenza vaccine, adjuvanted, preservative free Aileen Jenkins RN [facility] 11-16-2017 diphtheria, tetanus toxoids and acellular pertussis vaccine, unspecified formulation Gerry Barton Other [facility] 04-12-2017 influenza virus vaccine, split virus (incl. purified surface antigen) Gerry Barton Other [facility] Other 04-12-2017 influenza virus vaccine, unspecified formulation [facility] 04-12-2017 influenza, high dose seasonal, preservative-free Aileen Jenkins RN [facility] 03-15-2016 influenza virus vaccine, split virus (incl. purified surface antigen) Gerry Barton Other [facility] Other 03-15-2016 influenza virus vaccine, unspecified formulation [facility] 03-15-2016 influenza, high dose seasonal, preservative-free Aileen Jenkins RN [facility] 04-09-2015 pneumococcal conjuga te vaccine, 13 valent Gerry Barton Other [facility] 04-06-2015 influenza virus vaccine, split virus (incl. purified surface antigen) Gerry Barton Other [facility] Other 04-06-2015 influenza virus vaccine, unspecified formulation [facility] 04-06-2015 influenza, high dose seasonal, preservative-free Aileen Jenkins RN [facility] 03-16-2014 pneumococcal Conjuga te, unspecified formulation; Translations: [Need for prophylactic vaccination against Streptococcus pneumoniae (pneumococcus)] Gerry Barton Other [facility] Other 03-16-2014 pneumococcal polysaccharide vaccine, 23 valent Gerry Barton Other [facility] 03-16-2014 tetanus and diphther ia toxoids, adsorbed, preservative free, for adult use (5 Lf of tetanus toxoid and 2 Lf of diphtheria toxoid) Gerry Barton Other [facility] 04-10-2013 zoster vaccine, live Aileen Bonilla [facility] 03-26-2002 diphtheria, tetanus toxoids and acellular pertussis vaccine, unspecified formulation Gerry Barton Other [facility] Payers Date Payer Category Payer Private Health Insurance [employer] [id number] 2013-Present [phone] [address] [place] [address] Indemnity [id number] 2004 Medicare [id number]. [id number] 1959 Medicare [id number] 1959 Self-pay 1959 Unknown [id number] 1947 Unknown [id number] 2.16.840.1.017046.3.579.2. 727 1947 Unknown [id number] 2.16.840.1.038645.3.579.2. 593 1947 Unknown [id number] 2.16.840.1.877640.3.579.2. 593 1947 Unknown [id number] 2.16.840.1.172771.3.579.2. 593 1947 Unknown [id number] 2.16.840.1.887120.3.579.2. 593 1947 Unknown [id number] 2.16.840.1.919949.3.579.2. 593 1947 Unknown [id number] 2.16.840.1.254102.3.579.2. 593 1947 Unknown [id number] 2.16.840.1.906081.3.579.2. 593 1947 Unknown [id number] 2.16.840.1.610508.3.579.2. 593 1947 Unknown [id number] 2.16.840.1.382023.3.579.2. 593 1947 Unknown [id number] 2.16.840.1.480321.3.579.2. 593 1947 Unknown [id number] 2.16.840.1.743134.3.579.2. 593 1947 Unknown [id number] 2.16.840.1.233019.3.579.2. 593 1947 Unknown [id number] 2.16.840.1.089294.3.579.2. 593 1947 Unknown [id number] 2.16.840.1.248054.3.579.2. 593 1947 Unknown [id number] 2.16.840.1.233134.3.579.2. 593 1947 Unknown [id number] 2.16.840.1.538898.3.579.2. 593 1947 Unknown [id number] 2.16.840.1.949635.3.579.2. 593 1947 Unknown [id number] 2.16.840.1.401742.3.579.2. 593 1947 Unknown [id number] 2.16.840.1.876032.3.579.2. 1259 1947 Unknown [id number] 2.16.840.1.078620.3.579.2. 1259 1947 Unknown [id number] 2.16.840.1.664549.3.579.2. 1259 1947 Unknown [id number] 2.16.840.1.061703.3.579.2. 1259 1947 Unknown [id number] 2.16.840.1.658049.3.579.2. 1259 1947 Unknown [id number] 2.16.840.1.130236.3.579.2. 1259 1947 Unknown [id number] 2.16.840.1.902099.3.579.2. 1259 Medicare Medicare Outpatient [id number] Private Health Insurance [facility] [id number] Unknown [id number] 2.16.840.1.733160.3.579.2. 593 Unknown [id number] 2.16.840.1.921983.3.579.2. 531 Unknown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
[2023-12-19 09:12] LABS: Estimated Average Glucose 169 mg/dL; Glycohemoglobin A1C 7.5 % (4.5-6.2)
== END 2023-12-19 07:15 | disposition home or self-care (01) ==
LOC: LAB 07:15
PROVIDERS: PCP Internal Medicine; Visit Provider Internal Medicine
DX: E11.65 Type 2 diabetes mellitus with hyperglycemia (principal)
CPT/HCPCS: 36415; 83036

== ENCOUNTER 2024-04-01 07:14 | Outpatient (OUT) | payer MEDICARE, SELFPAY ==
--- OUTSIDE RECORDS SUMMARY | 2024-04-01 07:20 | XMS_ITS | CCD ---
Author Organization [facility] Care Team Providers Care Jig Builder Helper Name Role Phone Bernardo Gerry Primary Care Provider MARYJO KIDD Referring Unavailable GERRY CHANG Primary Care Unavailable KENDALL HONEYCUTT Attending Unavailable KINGS JONES Referring Unavailable GERRY CHANG Primary Care Unavailable YOLY BOSS Referring Unavailable GERRY CHANG Primary Care Unavailable GERRY CHANG Primary Care Physician [phone] MD Jenaro HANSEN Attending Unavailable Bernardo, Gerry Unavailable BERNARDO, DR GARRETT Primary Care Unavailable BALL, DR GARRETT Consulting Unavailable BALL, DR GARRETT Admitting Unavailable BALL, DR GARRETT Attending Unavailable GRILLIS ., DR BLADIMIR Mann Attending Unavaila ble GRILLIS ., DR BLADIMIR Mann Admitting Unavaila ble GRILLIS ., DR BLADIMIR Mann Consulting Unavaila ble BALL, DR GARRETT Primary Care Unavailable SCANDIA, DR ALONZO Hernandez Consulting Unavailable BALL, DR [...] Unavailable BALL, DR GARRETT Primary Care Unavailable HANSEN ., DR DUCKWORTH Consulting Unavailable HANSEN ., DR DUCKWORTH Attending Unavailable HANSEN ., DR DUCKWORTH Admitting Unavailable BALL, DR [...] BALL, DR GARRETT Admitting Unavailable BALL, DR GARERTT Primary Care Unavailable BALL, DR GARRETT Admitting [...] Unavailable Ball, DO Garrett Primary Care Provider DO Gerry Nelson Attending Provider [phone] Gerry Nelson Attending Unavailable Ball, Gerry Primary Care Unavailable Murcek, Gerry Admitting Unavailable Murcek, Gerry Admitting Unavailable Murcek, Gerry Attending Unavailable Ball, Gerry Primary Care Unavailable Ball Gerry DOYLE Primary Care Provider Talib Gant MD Unavailable [phone] Gerry Nelson DO Unavailable TALIB GANT Attending Unavailable MURCEK, GERRY Booker Attending Unavailable PETITTTaryn, TALIB Leon Referring Unavailable MURCEK, GERRY Booker Attending Unavailable MURCEK, GERRY Booker Attending Unavailable BALL, GERRY Mann Referring Unavailable MURCEK, GERRY Booker Attending Unavailable PETITTI, TALIB A Referring Unavailable MURCEK, GERRY Booker Attending Unavailable HERNANDEZROCKY Attending Unavailable ASHLEY MANZANO Attending Unavailable Allergies Allergy Classification Reported Allergen(s) Allergy Type Date of Onset Reaction(s) Facility (6 sources) Ketorolac; Translations: [KETOROLAC] Drug Allergy 09-24-19 21 Unknown, Unknown (qualifier value) [facility] (13 sources) Piperacillin / tazobactam; Translations: [PIPERACILLIN-TA ZOBACTAM] Drug Allergy 09-15-19 10 Rash [facility] (2 sources) Vorinostat; Translations: [vorinostat] Drug Allergy Unknown (qualifier value) [facility] (2 sources) Ketorolac; Translations: [Toradol] Drug Allergy [facility] Repository (1 source) Piperacillin / tazobactam Drug Allergy 01-15-[address] [facility] Repository (1 source) tazobactam Drug Allergy [facility] Repository (3 sources) patient allergy list reviewed by nurse or physicia Propensity to adverse reactions 12-26-19 19 Comment:Done [employer] Other (3 sources) Allergies Reconciled Propensity to adverse reactions Unknown [facility] [email or web address] Other (1 source) Piperacillin Drug Allergy 08-22-19 24 [facility] Repository (3 sources) Ketorolac Allergy to substance 09-24-19 21 Unknown [facility] Healthcare Work Phone: (3 sources) Ketorolac trometamol Allergy to substance 07-25-19 24 Unknown [facility] Healthcare (3 sources) Piperacillin Drug Allergy 08-22-19 24 [facility] (3 sources) Piperacillin / tazobactam Drug Allergy 09-15-19 10 Rash [facility] (3 sources) Vorinostat Drug Allergy 08-22-19 24 Unknown [facility] Healthcare Work Phone: (3 sources) Piperacillin Sod-Tazobactam So Drug Intolerance 04-10-20 13 Other [facility] Healthcare Medications Current Medications Medication Drug Class(es) Dates Sig (Normalized) Sig (Original) Aspir-81 81 MG (14 sources) take 1 tablet by mouth three times weekly Aspir-81 81 MG 1 tablet Orally THREE TIMES A WEEK for 30 day(s) Active aspirin 81 mg delayed release oral tablet (17 sources) Platelet Aggregation Inhibitor, Nonsteroidal Anti-inflammatory Drug [...] tablet (20 sources) HMG-CoA Reductase Inhibitor Start: 4 take 1 tablet by [...] Refills(s) 0 Start Date: 11/27/19 Status: Ordered Comment on above: Take 10 mg by mouth once daily. benazepril hydrochloride 10 mg oral tablet (3 sources) Angiotensin Converting Enzyme Inhibitor take 1 tablet by mouth in the morning benazepril (Lotensin) 10 MG tablet Take 10 mg by mouth in the morning. Active carvedilol 6.25 mg oral tablet (20 sources) alpha-Adrenergic Luli, beta-Adrenergic Luli Start: 4 take 1 tablet by mouth twice daily Carvedilol Active 0 .ROUTE .COMPLEX 180 November 15, 2023 12:59pm TAKE 1 TABLET BY MOUTH TWICE A DAY Start: 11-27-2019 carvedilol Ora l, Refills(s) 0 Start Date: 11/27/19 Status: Ordered Start: 06-15-2014 End: 11-15-2023 take 6.25 mg by mouth twice daily Carvedilol Discontinued 6.25 MG PO Twice daily July 25, 2023 1:00am November 15, 2023 1:00pm Comment on above: Take 6.25 mg by [...] 30 MINUTES PRIOR TO BREAKFAST Start: 07-25-2023 take 4 mg by mouth once daily Glimepiride Active 4 MG PO Daily July 25, 2023 12:00am Start: 11-27-2019 glimepiride Or al, Daily, Refills(s) 0 Start Date: 11/27/19 Status: Ordered Start: 06-19-2012 End: 11-19-2023 take 4 mg by mouth twice daily Glimepiride Discontinue d 4 MG PO Twice daily July 25, 2023 1:00am November 19, 2023 12:44pm Glimepiride 4 MG TAKE 2 TABLETS BY MOUTH EVERY MORNING 30 MINUTES PRIOR TO BREAKFAST for 90 Active Comment on above: Take 4 mg by mouth t wice daily with meals. 3 ml insulin detemir 100 unt/ml pen injector (20 sources) Insulin Analog Start: 07-07-2022 Levemir FlexPen 100 UNIT/ML 12 units Subcutaneous Once daily Jul, Active Start: 11-27-2019 Levemir SubCut aneous, Refills(s) 0 Start Date: 11/27/19 Status: Ordered Start: 09-07-2015 LEVEMIR FLEXTO UCH 100 unit/mL (3 mL) inpn injection 12 Units. 0 09/07/2015 Active inject 6 [IU] by sub cutaneous injection at bedtime insulin detemir (Levemir) 100 UNIT/ML injection Inject 6 Units under the skin at bedtime Active Comment on above: 12 Units. Insulin Detemir U-100 (Levemir Flexpen) 100 unit/mL (3 mL) insulin pen (8 sources) Start: 08-22-2023 Insulin Detemi r U-100 [...] Jul, Active linagliptin 5 mg oral tablet (20 sources) Dipeptidyl Peptidase 4 Inhibitor Start: 02-28-2024 End: 03-11-2024 take 1 tablet by mouth once daily Linagliptin (Tradjenta) 5 mg tablet Active 0 .ROUTE .COMPLEX March 11, 2024 5:20pm TAKE 1 TABLET BY MOUTH EVERY DAY Start: 11-27-2019 take 1 mg by mouth once daily Tradjenta mg, Oral, Daily, Refills(s) 0 Start Date: 11/27/19 Status: Ordered Start: 06-15-2013 End: 02-28-2024 take 1 tablet by mouth once daily in the morning Linagliptin (Tradjenta) 5 mg tablet Discontinued 5 MG PO Every morning July 25, 2023 1:00am February 28, 2024 2:23pm Comment on above: 5 mg once daily. lisinopril 2.5 mg oral tablet (20 sources) Angiotensin Converting Enzyme Inhibitor Start: 09-18-2023 take 1 tablet by mouth once daily Lisinopril Active 0 .ROUTE .COMPLEX September 18, 2023 1:24pm TAKE 1 TABLET BY MOUTH EVERY DAY Start: 07-25-2023 End: 09-18-2023 take 2.5 mg by mouth once daily at bedtime Lisinopril Discontinued 2.5 MG PO Daily at bedtime July 25, 2023 1:00am September 18, 2023 1:24pm Start: 11-27-2019 lisinopril Ora l, Daily, Refills(s) 0 Start Date: 11/27/19 Status: Ordered Comment on above: Take 2.5 mg by [...] Active traMADol hydrochloride 50 mg oral tablet (12 sources) Opioid Agonist Start: End: take 50 mg by mouth twice daily [...] 1000 mcg valACYclovir 1000 mg oral tablet (5 sources) Herpesvirus Nucleoside Analog DNA Polymerase Inhibitor, [...] Date Documented Date Episodic/Chronic Acquired foot deformities (11 sources) Acquired hammer toe of left foot; Translations: [Other hammer toe(s) (acquired), left foot] Onset: 08-22-2023 08-22-2023 Chronic Acute bronchitis (4 sources) Acute bronchitis; Translations: [Acute bronchitis, unspecified] Onset: 02-23-2015 Episodic Anxiety disorders (6 sources) Posttraumatic stress disorder; Translations: [Posttraumatic stress disorder] Onset: 01-08-2017 Chronic Chronic kidney disease (9 sources) Chronic kidney disease, unspecified; Translations: [Chronic kidney disease stage 3] Onset: 12-17-2015 03-31-2024 Chronic Chronic ulcer of skin (15 sources) Non-pressure chronic ulcer of unspecified part of right lower leg limited to breakdown of skin; Translations: [Chronic ulcer of foot] Onset: 09-09-2018 Resolved: 05-24-2020 08-22-2023 Chronic Coagulation and hemorrhagic disorders (1 source) Blood coagulation disorder 12-01-2019 Chronic Complication of device; implant or graft (4 sources) Other specified complication of vascular prosthetic devices, implants and grafts, initial encounter; Translations: [OTH COMP VASC PROSTH DEV GRAFT INIT] Onset: 03-03-2022 Chronic Deficiency and other anemia (7 sources) Acquired pancytopenia; Translations: [Other drug-induced pancytopenia] Onset: 09-07-2009 08-22-2023 Chronic Deficiency and other anemia (20 sources) Pernicious anemia; Translations: [Vitamin B12 deficiency anemia due to intrinsic factor deficiency] Onset: 09-05-2023 Resolved: 09-05-2023 07-25-2023 Episodic Deficiency and other anemia (17 sources) Vitamin B12 deficiency anemia due to intrinsic factor deficiency; Translations: [Pernicious anemia] Episodic Diabetes mellitus with complications (20 sources) Type 2 diabetes mellitus with diabetic chronic kidney disease; Translations: [Hyperglycemia due to type 2 diabetes mellitus] Onset: 06-26-2016 Chronic Diabetes mellitus without complication (20 sources) Diabetes mellitus; Translations: [Type 2 diabetes mellitus without complications] Onset: 05-02-2019 05-05-2019 Chronic Diseases of white blood cells (7 sources) Neutropenia; Translations: [Neutropenia, unspecified] Onset: 09-07-2009 08-22-2023 Chronic Disorders of lipid metabolism (20 sources) Mixed hyperlipidemia; Translations: [Hyperlipidemia, unspecified] Onset: 11-23-2021 Resolved: 09-05-2023 Chronic Essential hypertension (20 sources) Essential (primary) hypertension; Translations: [Essential hypertension] Onset: 11-23-2021 Resolved: 09-05-2023 Chronic Hyperplasia of prostate (20 sources) Benign prostatic hyperplasia; Translations: [Benign prostatic [...] Translations: [Nausea & vomiting] Episodic Non-Hodgkin`s lymphoma (19 sources) Non-Hodgkin's lymphoma (clinical); Translations: [Non-Hodgkin lymphoma, unspecified, unspecified site] Onset: 08-27-2009 Chronic Osteoarthritis (10 sources) Arthritis; Translations: [Osteoarthritis] Onset: 08-22-2023 12-01-2019 Chronic Other aftercare (5 sources) Encounter for adjustment and management of vascular access device; Translations: [ENC ADJUSTMENT AND MANAGEMENT VAD] Onset: 02-28-2022 Episodic Other aftercare (2 sources) Other skilled nursing (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; Translations: [OTH SKILLED NURSING CURRENT DRUG THERAPY] Onset: 04-10-2022 Episodic Other aftercare (3 sources) Long-term current use of 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; Translations: [Other skilled nursing (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] Episodic Other aftercare (4 sources) H/O: high risk medication; Translations: [Other skilled nursing (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] Episodic Other and unspecified benign neoplasm (2 sources) Melanocytic nevus of right upper limb; Translations: [Melanocytic nevi of right upper limb, including shoulder] 03-21-2024 Episodic Other and unspecified benign neoplasm (2 sources) Melanocytic nevus of left upper limb; Translations: [Melanocytic nevi of left upper limb, including shoulder] 03-21-2024 Episodic Other circulatory disease (2 sources) Spider nevus; Translations: [Nevus, non-neoplastic] 03-21-2024 Episodic Other connective tissue disease (1 source) Presence of unspecified orthopedic joint implant; Translations: [Presence of unspecified orthopedic joint implant] Chronic Other connective tissue disease (3 sources) Artificial knee joint present; Translations: [Presence of artificial knee joint, bilateral] Onset: 08-22-2023 08-22-2023 Chronic Other connective tissue disease (3 sources) [...] Chronic Other diseases of veins and lymphatics (19 sources) Peripheral venous insufficiency; Translations: [Venous insufficiency (chronic) (peripheral)] Onset: 09-05-2023 Resolved: 09-05-2023 07-25-2023 Episodic Other diseases of veins and lymphatics (10 sources) Venous insufficiency (chronic) (peripheral); Translations: [Venous (peripheral) insufficiency, unspecified] Episodic Other injuries and conditions due to external causes (3 sources) History of fall; Translations: [History of falling] Episodic Other nervous system disorders (3 sources) Chronic pain; Translations: [Other chronic pain] Onset: 08-22-2023 08-22-2023 Chronic Other non-epithelial cancer of skin (20 sources) Basal cell carcinoma of skin of other part of trunk; Translations: [Carcinoma in situ of skin of scalp and neck] Onset: 11-23-2021 03-21-2024 Episodic Other non-traumatic joint disorders (4 sources) Charcot's joint, left ankle and foot; Translations: [CHARCOTS JOINT LEFT ANKLE AND FO] Onset: 11-09-2021 Chronic Other non-traumatic joint disorders (11 sources) Arthropathy associated with a neurological disorder; Translations: [Charcot's joint, unspecified ankle and foot] Chronic Other non-traumatic joint disorders (3 sources) Joint ankylosis of the shoulder region; Translations: [Ankylosis, right shoulder] Onset: 08-22-2023 08-22-2023 Chronic Other nutritional; endocrine; and metabolic disorders (3 sources) Obese class I; Translations: [Body mass index 33.0-33.9, adult] Onset: [birth year]04-1959 Chronic Other nutritional; endocrine; and metabolic disorders (3 sources) Simple obesity ; Translations: [Other obesity due to excess calories] Onset: 06[birth year]04-1959 Chronic Other nutritional; endocrine; and metabolic disorders (4 sources) Obesity; Translations: [Obesity, unspecified] 03-31-2024 Chronic Other nutritional; endocrine; and metabolic disorders (1 source) Other obesity due to excess calories Chronic Other nutritional; endocrine; and metabolic disorders (1 source) Body mass index (BMI) 30.0-30.9, adult Chronic Other nutritional; endocrine; and metabolic disorders (1 source) Obesity, unspecified; Translations: [Obesity, unspecified] 03-31-2024 Chronic Other screening for suspected conditions (not mental disorders or infectious disease) (20 sources) Raised prostate specific antigen; Translations: [Elevated [...] and lump, trunk] Episodic Other skin disorders (2 sources) Seborrheic keratosis; Translations: [Other seborrheic keratosis] 03-21-2024 Episodic Other skin disorders (2 sources) Actinic keratosis; Translations: [Actinic keratosis] 03-21-2024 Episodic Peripheral and visceral atherosclerosis (3 sources) 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; Translations: [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, unspecified] Chronic Residual [...] of other medications] Onset: 12-06-2015 Viral infection (6 sources) Herpes zoster; Translations: [Zoster without complications] 11-02-2023 Episodic Past or Other Problems Problem Classification Problem Date Documented Da te Episodic/Chronic Acquired foot deformities (6 sources) Talipes planus; Translations: [Flat foot [pes 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), left foot] Onset: 4 08-22-2023 Episodic Coagulation and hemorrhagic disorders (3 sources) Blood coagulation disorder; Translations: [Hemorrhagic condition, unspecified] Onset: 4 08-22-2023 Episodic Complication of device; implant or graft (9 sources) Blocked central line; Translations: [Other mechanical complication of infusion catheter, initial encounter] Onset: 2 Episodic Deficiency and other anemia (3 sources) Anemia; Translations: [Anemia, unspecified] Resolved: 0 Episodic Diabetes mellitus without complication (4 sources) Glycosuria; Translations: [Glycosuria] Onset: 4 12-01-2019 Episodic Fever of unknown origin (7 sources) Fever; Translations: [Fever, unspecified] Onset: 0 08-22-2023 Episodic Gastrointestinal hemorrhage (3 sources) Gastrointestinal hemorrhage; Translations: [Gastrointestinal hemorrhage, unspecified] Onset: 1 08-22-2023 Episodic Genitourinary symptoms and ill-defined conditions (7 sources) Proteinuria; Translations: [Asymptomatic microscopic hematuria] Onset: 4 12-01-2019 Episodic Neoplasms of unspecified nature or uncertain behavior (3 sources) Neoplasm of uncertain behavior of skin; Translations: [Neoplasm of uncertain behavior of skin] Onset: 9 Episodic Non-Hodgkin`s lymphoma (4 sources) Personal history of non-Hodgkin lymphomas; Translations: [History of malignant lymphoma] Onset: 7 Episodic Open wounds of head; neck; and trunk (3 sources) Laceration with foreign body of scalp, subsequent encounter; Translations: [Laceration with foreign body of scalp, subsequent encounter] Onset: 8 Episodic Other aftercare (1 source) 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; Translations: [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 USE ORAL HYPOGLYCEMIC DX] Onset: 2 Episodic Other connective tissue disease (3 sources) Pain in left foot; Translations: [Pain in left foot] Resolved: 0 Episodic Other connective tissue disease (3 sources) Tear of right rotator cuff; Translations: [Unspecified rotator cuff tear or rupture of right shoulder, not specified as traumatic] Onset: 7 Episodic Other eye disorders (3 sources) Vitreous degeneration; Translations: [Vitreous degeneration, unspecified eye] Resolved: 1 Chronic Other non-traumatic joint disorders (3 sources) Arthralgia of the ankle and/or foot; Translations: [Pain in left ankle and joints of left foot] Resolved: 0 Episodic Other non-traumatic joint disorders (3 sources) Shoulder joint pain; Translations: [Pain in joint, shoulder region] Onset: 7 Episodic Other non-traumatic joint disorders (3 sources) Pain in right shoulder; Translations: [Pain in joint, shoulder region] Onset: 4 08-22-2023 Episodic Other nutritional; endocrine; and metabolic disorders (20 sources) Body mass index 30+ - obesity; Translations: [Body mass index 30.0-30.9, adult] Onset: 0 Resolved: 4 07-25-2023 Chronic Other nutritional; endocrine; and metabolic disorders (14 sources) Obesity caused by energy imbalance; Translations: [Other obesity due to excess calories] Onset: 4 Resolved: 4 07-25-2023 Chronic Other skin disorders (3 sources) Disorder of the skin and subcutaneous tissue, unspecified; Translations: [DISORDER SKIN AND SUBQ TISSUE UNS] Onset: 2 Episodic Other upper respiratory infections (3 sources) Acute sinusitis; Translations: [Acute sinusitis, unspecified] Onset: 5 Episodic Residual codes; unclassified (1 source) Acquired absence of other specified parts of digestive tract; Translations: [ACQ ABSENCE OTH PART DIGESTV TRACT] Onset: 2 Episodic Viral infection (5 sources) COVID-19; Translations: [COVID-19] Onset: 2 Results Test Name Value Interpretation Reference Range Facility No Panel Informationon 03-21 [facility] Glucose mean value [Mass/vol ume] in Blood Estimated from glycated hemoglobinon 12-19-2023 Average glucose Estimated from glycated hemoglobin (Bld) [Mass/Vol] 169 mg/dL [facility] - Hematology and Cell countson 12-19-2023 HbA1c (Bld) [Mass fraction] 7.5 % High 4.5-6.2 [facility] Comment on above: ADA RECOMMENDED LIMI T 4.0 - 6.0ADA THERAPEUTIC TARGET < 7.0ACTION SUGGESTED> 7.0 Glucose Glucometer (BldC) [M ass/Vol]Ordered By: Gerry Nelson on 08-28-2023 Glucose [Mass/Vol] 101 mg/dL [facility] Comment on above: Random Glucose Refer ence Range is dependent on time and content of last meal. Glucose of more than 200 mg/dL in a nonstressed, ambulatory subject supports the diagnosis of Diabetes Mellitus. Glucose Poct Glucometerson 0 08-28-2023 Glucose [Mass/Vol] 101 mg/dL Normal [facility] Comment on above: Result Comment: [place] Glucose Reference Range is dependent on time and content of last meal. Glucose of more than 200 mg/dL in a nonstressed, ambulatory subject supports the diagnosis of Diabetes Mellitus. PERFORMED BY: [facility] [place] [address] PATHOLOGIST DENTAL MOLD MAKER AMANDA ZAMORA M.D. Performed By: #### G LUVIRGILIO #### Point of Care testing , Commemt1 Glu2: Cleaned Meter Normal [facility] Comment on above: Result Comment: PERF ORMED BY: [facility] [place] [address] PATHOLOGIST DENTAL MOLD MAKER AMANDA ZAMORA M.D. Performed By: #### G LULS #### Point of Care testing , Glucose [Mass/Vol] 147 mg/dL Normal [facility] Comment on above: Result Comment: [facility] Glucose Reference Range is dependent on time and content of last meal. Glucose of more than 200 mg/dL in a nonstressed, ambulatory subject supports the diagnosis of Diabetes Mellitus. Performed By: #### G LULS #### Point of Care testing , Von 08-28-2023 L Specimen: Received: 08/28/23 Status: MANJIT Caballero Num: [id number] Spec Type: Surgical Subm Dr: Gerry Nelson DO Tissues: A Skin-Other than Cyst, tag, debridement or plastic repair (SCALP) Procedures: HE/7, Gross/Micro L4, Frozen Section, Froz Sec, Add/4, FS HE/10 Age/ Patient Sex Location Account Attending Physician Eugenio Crews 78/M [place] [id number] Gerry Nelson DO SPEC NUM: RECD: 08/28/23 STATUS: MANJIT CABALLERO NUM: [id number] ANJALI: 08/28/[address]: Gerry Nelson DO ENTERED: 08/28/[address] [facility] [address]: SPEC TYPE: Surgical DEPT: S ORDERED: HE/7, Gross/Micro L4, Frozen Section, Froz Sec, Add/4, FS HE/10 ORDERED: HE/7, Gross/Micro L4, Frozen Section, Froz Sec, Add/4, FS HE/10 Pathological Diagnosis Skin Lesion, Scalp, Excision: Squamous [...] A2 - Frozen section remnant?FSA 2 Specimen: [id number] Received: 08/28/23 Status: MANJIT Caballero Num: [id number] Spec Type: Surgical Subm Dr: Gerry Nelson,DO Tissues: A Skin-Other than Cyst, tag, debridement or plastic repair (SCALP) Procedures: , Gross/Micro L4, Frozen Section, Lu Moulton, Add/4, FS Patient: CrewsEugenio L [id number] (Continued) Specimen: [id number] Received: 08/28/23 (Continued) Gross Description (Continued) Signed (signatur e on file) Mel Proctro MD 08/29/23 1356 Specimen: Received: 08/28/23 Status: MANJIT Caballero Num: [id number] Spec Type: Surgical Subm Dr: Gerry Nelson DO Tissues: A Skin-Other than Cyst, tag, debridement or plastic repair (SCALP) Procedures: HE/7, Gross/Micro L4, Frozen Section, Lu Moulton, Add/4, FS Patient: Eugenio Crews [id number] (Continued) Specimen: [id number] Received: 08/28/23 (Continued) Gross Description (Continued) A3 - Frozen section remnant?FSA 3 A4 - Frozen section remnant?FSA 4 A5 - Frozen section remnant?FSA 5 A6 - 12:00 half of specimen A7 - 6:00 half of specimen Intraoperative Diagnosis A. Recurrent squamous cell carcinoma of scalp: - Margins are negative for malignancy. Reported by Dr. Proctor at 2:05 PM 08/28/2023 CPT Codes 16530, [id number], [id number] Specimen: [id number] Received: 08/28/23 Status: MANJIT Caballero Num: [id number] Spec Type: Surgical Subm Dr: Gerry Nelson DO Tissues: A Skin-Other than Cyst, tag, debridement or plastic repair (SCALP) Procedures: /, Gross/Micro L4, Frozen Section, Lu Moulton, Add/, FS Patient: Eugenio Crews [id number] (Continued) Signed (signatur e on file)___ (more content not included)... Normal [facility] No Panel InformationOrdered By: Gerry Nelson on 08-28-2023 Bedside Glucose Comment Glu2: cleaned meter [facility] Basic Metabolic Panelon 08-03 Anion gap [Moles/Vol] 12.7 mmol/L Normal 6.0-15.0 [facility] Comment on above: Performed By: #### B MP, CBC #### [facility] [address] [place] [address] [place] Calcium [Mass/Vol] 8.7 mg/dL Normal 8.6-10.3 [facility] Comment on above: Result Comment: PERF ORMED BY: [facility] [address] [place], [place] [id number] PATHOLOGIST DENTAL MOLD MAKER AMANDA ZAMORA M.D. Performed By: #### B MP, CBC #### [facility] [address] [place] [address] [place] Chloride [Moles/Vol] 109 mmol/L High 98-107 [facility] Comment on above: Performed By: #### B MP, CBC #### [facility] [address] [place] [address] [place] CO2 [Moles/Vol] 22.0 mmol/L Normal 21.0-31.0 [facility] Comment on above: Performed By: #### B MP, CBC #### [facility] [address] [place] [address] [place] Creatinine [Mass/Vol] 2.90 mg/dL High 0.70-1.30 [facility] Comment on above: Performed By: #### B MP, CBC #### [facility] [address] [place] [address] [place] GFR/1.73 sq M.predicted MDRD (S/P/Bld) [Vol rate/Area] 21.738 mL/min/{1.73_m2} Normal [facility] Comment on above: Performed By: #### B MP, CBC #### [facility] [address] Glucose [Mass/Vol] 227 mg/dL High 70-100 [facility] Comment on above: Result Comment: [place] Glucose Reference Range is dependent on time and content of last meal. Glucose of more than 200 mg/dL in a nonstressed, ambulatory subject supports the diagnosis of Diabetes Mellitus. ADA recommended reference range Performed By: #### B MP, CBC #### [facility] [address] [place] [address] [place] Potassium [Moles/Vol] 4.7 mmol/L Normal 3.5-5.1 [facility] Comment on above: Performed By: #### B MP, CBC #### [facility] [address] [place] [address] [place] Sodium [Moles/Vol] 139 mmol/L Normal 136-145 [facility] Comment on above: Performed By: #### B MP, CBC #### [facility] [address] [place] [id number] [place] Urea nitrogen [Mass/Vol] 43 mg/dL High 7-25 [facility] Comment on above: Performed By: #### B MP, CBC #### [facility] [address] [place] [address] [place] Basophils Auto (Bld) [#/Vol] Ordered By: Gerry Nelson on 08-22-2023 Basophils (Bld) [#/Vol] 0.0 10*3/uL 0.0-0.2 [facility] Basophils/100 WBC Auto (Bld) Ordered By: Gerry Nelson on 08-22-2023 Basophils/100 WBC (Bld) 0.4 % . [facility] Calcium [Mass/volume] in Ser um or PlasmaOrdered By: Gerry Nelson on 08-22-2023 Calcium [Mass/Vol] 8.7 mg/dL 8.6-10.3 [facility] Carbon dioxide, total [Moles /volume] in Serum or PlasmaOrdered By: Gerry Nelson on 08-22-2023 CO2 [Moles/Vol] 22.0 mmol/L 21.0-31.0 [facility] Chloride [Moles/volume] in S hai or PlasmaOrdered By: Gerry Nelson on 08-22-2023 Chloride [Moles/Vol] 109 mmol/L 98-107 [facility] Complete Blood Count Auto Di ffon 08-22-2023 Basophils (Bld) [#/Vol] 0.0 10*3/uL Normal 0.0-0.2 [facility] Comment on above: Result Comment: PERF ORMED BY: [place] [address] PATHOLOGIST DENTAL MOLD MAKER AMANDA ZAMORA M.D. Performed By: #### B MP, CBC #### [facility] [address] [place] [address] [place] Basophils/100 WBC (Bld) 0.4 % Normal . [facility] Comment on above: Performed By: #### B MP, CBC #### [facility] [address] [place] [address] [place] Eosinophils (Bld) [#/Vol] 0.1 10*3/uL Normal 0.0-0.45 [facility] Comment on above: Performed By: #### B MP, CBC #### [facility] [address] [place] [address] [place] Eosinophils/100 WBC (Bld) 2.4 % Normal . [facility] Comment on above: Performed By: #### B MP, CBC #### [facility] [address] Erythrocyte distribution width (RBC) [Ratio] 12.7 % Normal 12.0-14.8 [facility] Comment on above: Performed By: #### B MP, CBC #### [facility] [address] Hematocrit (Bld) [Volume fraction] 33.6 % Low 38.8-50.0 [facility] Comment on above: Performed By: #### B MP, CBC #### [facility] [address] Hemoglobin (Bld) [Mass/Vol] 11.4 g/dL Low 13.0-17.0 [facility] Comment on above: Performed By: #### B MP, CBC #### [address] Lymphocytes (Bld) [#/Vol] 0.9 10*3/uL Low 1.00-4.8 [facility] Comment on above: Performed By: #### B MP, CBC #### [address] Lymphocytes/100 WBC (Bld) 14.3 % Normal . [facility] Comment on above: Performed By: #### B MP, CBC #### [address] MCH (RBC) [Entitic mass] 32.7 pg Normal 27.5-35.2 [facility] Comment on above: Performed By: #### B MP, CBC #### [facility] [address] MCV (RBC) [Entitic vol] 96.1 fL Normal 83.5-[address] [facility] Comment on above: Performed By: #### B MP, CBC #### [facility] [address] Mean Corpuscular HGB Conc 34.0 g/dL Normal 32.5-35.6 [facility] Comment on above: Performed By: #### B MP, CBC #### [address] [place] [address] [place] Monocytes (Bld) [#/Vol] 0.5 10*3/uL Normal 0.0-0.8 [facility] Comment on above: Performed By: #### B MP, CBC #### [place] [address] [place] Monocytes/100 WBC (Bld) 7.4 % Normal . [facility] Comment on above: Performed By: #### B MP, CBC #### [address] Neutrophils (Bld) [#/Vol] 4.7 10*3/uL Normal 1.8-7.7 [facility] Comment on above: Performed By: #### B MP, CBC #### [address] Neutrophils/100 WBC (Bld) 75.5 % Normal . [facility] Comment on above: Performed By: #### B MP, CBC #### [address] NRBC% 0.0 /100{WBC} Normal 0-0.5 [facility] Comment on above: Performed By: #### B MP, CBC #### [address] Platelet mean volume (Bld) [Entitic vol] 7.2 fL Normal 6.6-10.1 [facility] Comment on above: Performed By: #### B MP, CBC #### [place] [address] [place] Platelets (Bld) [#/Vol] 165 10*3/uL Normal 150-450 [facility] Comment on above: Performed By: #### B MP, CBC #### [place] [address] [place] RBC (Bld) [#/Vol] 3.50 10*6/uL Low 3.90-5.60 [facility] Comment on above: Performed By: #### B MP, CBC #### [address] [place] [address] [place] WBC (Bld) [#/Vol] 6.2 10*3/uL Normal 4.1-10.5 [facility] Comment on above: Performed By: #### B MP, CBC #### [facility] [address] [place] [address] Creatinine [Mass/volume] in Serum or PlasmaOrdered By: Gerry Nelson on 08-22-2023 Creatinine [Mass/Vol] 2.90 mg/dL 0.70-1.30 [facility] ECG 12 lead ECGon 08-22-2023 ECG 12 lead ECG [facility] [place] [address] [place] [address] Electrocardiograph Report Signed Patient: Eugenio Crews MR#: [id number] : 1945 Acct:[id number] Age/Sex: 78 / M ADM Date: 08/22/23 Loc: Room: Type: [facility] Attending Dr: Gerry Nelson DO [...] previous ECGs available Confirmed by Joni Marrero ([id number]) on 08/23/2023 11:21:57 AM Referred By: NOHEMI Electronically Signed By:Joni Marrero Transcribed By: MUS Signed By Joni Marrero MD 08/23/23 1122 Normal [facility] Eosinophils Auto (Bld) [#/Vo l]Ordered By: Gerry Nelson on 08-22-2023 Eosinophils (Bld) [#/Vol] 0.1 10*3/uL 0.0-0.45 [facility] Eosinophils/100 WBC Auto (Bl d)Ordered By: Gerry Nelson on 08-22-2023 Eosinophils/100 WBC (Bld) 2.4 % . [facility] Erythrocyte distribution wid th Auto (RBC) [Ratio]Ordered By: Gerry Nelson on 08-22-2023 Erythrocyte distribution width (RBC) [Ratio] 12.7 % 12.0-14.8 [facility] Glucose [Mass/volume] in Ser um or PlasmaOrdered By: Gerry Nelson on 08-22-2023 Glucose [Mass/Vol] 227 mg/dL 70-100 [facility] Comment on above: ADA recommended refe rence rangeRandom Glucose Reference Range is dependent on time and content of last meal. Glucose of more than 200 mg/dL in a nonstressed, ambulatory subject supports the diagnosis of Diabetes Mellitus. Hematocrit Auto (Bld) [Volum e fraction]Ordered By: Gerry Nelson on 08-22-2023 Hematocrit (Bld) [Volume fraction] 33.6 % 38.8-50.0 [facility] Hemoglobin [Mass/volume] in BloodOrdered By: Gerry Nelson on 08-22-2023 Hemoglobin (Bld) [Mass/Vol] 11.4 g/dL 13.0-17.0 [facility] Leukocytes [#/volume] correc yoseph for nucleated erythrocytes in Blood by Automated counOrdered By: Gerry Nelson on 08-22-2023 WBC corrected for nucl RBC Auto (Bld) [#/Vol] 6.2 10*3/uL 4.1-10.5 [facility] Lymphocytes Auto (Bld) [#/Vo l]Ordered By: Gerry Nelson on 08-22-2023 Lymphocytes (Bld) [#/Vol] 0.9 10*3/uL 1.00-4.8 [facility] Lymphocytes/100 WBC Auto (Bl d)Ordered By: Gerry Nelson on 08-22-2023 Lymphocytes/100 WBC (Bld) 14.3 % . [facility] MCH Auto (RBC) [Entitic mass ]Ordered By: Gerry Nelson on 08-22-2023 MCH (RBC) [Entitic mass] 32.7 pg 27.5-35.2 [facility] MCHC Auto (RBC) [Mass/Vol]Or dered By: Gerry Nelson on 08-22-2023 MCHC (RBC) [Mass/Vol] 34.0 g/dL 32.5-35.6 [facility] MCV Auto (RBC) [Entitic vol] Ordered By: Gerry Nelson on 08-22-2023 MCV (RBC) [Entitic vol] 96.1 fL 83.5-[address] [facility] Monocytes Auto (Bld) [#/Vol] Ordered By: Gerry Nelson on 08-22-2023 Monocytes (Bld) [#/Vol] 0.5 10*3/uL 0.0-0.8 [facility] Monocytes/100 WBC Auto (Bld) Ordered By: Gerry Nelson on 08-22-2023 Monocytes/100 WBC (Bld) 7.4 % . [facility] Neutrophils Auto (Bld) [#/Vo l]Ordered By: Gerry Nelson on 08-22-2023 Neutrophils (Bld) [#/Vol] 4.7 10*3/uL 1.8-7.7 [facility] Neutrophils/100 WBC Auto (Bl d)Ordered By: Gerry Nelson on 08-22-2023 Neutrophils/100 WBC (Bld) 75.5 % . [facility] No Panel InformationOrdered By: Gerry Nelson on 08-22-2023 Estimated GFR (CKD-EPI) 21.738 mL/Min [facility] Creatinine Clearance (Chem N/A [facility] Nucleated erythrocytes [Pres ence] in Blood by Automated countOrdered By: Gerry Nelson on 08-22-2023 Nucleated RBC Auto Ql (Bld) 0.0 /100{WBC} 0-0.5 [facility] Platelet mean volume Auto (B ld) [Entitic vol]Ordered By: Gerry Nelson on 08-22-2023 Platelet mean volume (Bld) [Entitic vol] 7.2 fL 6.6-10.1 [facility] Platelets Auto (Bld) [#/Vol] Ordered By: Gerry Nelson on 08-22-2023 Platelets (Bld) [#/Vol] 165 10*3/uL 150-450 [facility] Potassium [Moles/volume] in Serum or PlasmaOrdered By: Gerry Nelson on 08-22-2023 Potassium [Moles/Vol] 4.7 mmol/L 3.5-5.1 [facility] RBC Auto (Bld) [#/Vol]Ordere d By: Gerry Nelson on 08-22-2023 RBC (Bld) [#/Vol] 3.50 10*6/uL 3.90-5.60 [facility] Serum or plasma anion gap de terminationOrdered By: Gerry Nelson on 08-22-2023 Anion gap [Moles/Vol] 12.7 mmol/L 6.0-15.0 [facility] Sodium [Moles/volume] in Ser um or PlasmaOrdered By: Gerry Nelson on 08-22-2023 Sodium [Moles/Vol] 139 mmol/L 136-145 [facility] Urea nitrogen [Mass/volume] in Serum or PlasmaOrdered By: Gerry Nelson on 08-22-2023 Urea nitrogen [Mass/Vol] 43 mg/dL 7-25 [facility] WBC Auto (Bld) [#/Vol]Ordere d By: Gerry Nelson on 08-22-2023 WBC (Bld) [#/Vol] 6.2 10*3/uL 4.1-10.5 [facility] Glucose mean value [Mass/vol ume] in Blood Estimated from glycated hemoglobinon 08-06-2023 Average glucose Estimated from glycated hemoglobin (Bld) [Mass/Vol] 163 mg/dL [facility] - Hematology and Cell countson 08-06-2023 HbA1c (Bld) [Mass fraction] 7.3 % 4.5-6.2 [facility] Comment on above: ADA RECOMMENDED LIMI T 4.0 - 6.0ADA THERAPEUTIC TARGET < 7.0ACTION SUGGESTED> 7.0 [facility] Report[facility] 04-09-2022 Lab Reports [id number] Normal [facility] CBC AUTO DIFFon 04-05-2022 BASO # 0.0 103/ul Normal 0.0-0.1 [facility] Comment on above: Performed By: #### C BC #### [facility] [address] [place] [address] [address] Dave Duffy Basophils/100 WBC (Bld) 0.2 % Normal 0.2-2.0 [facility] Comment on above: Performed By: #### C BC #### [facility] [address] [place] [address] Dr. Dave Duffy EO # 0.2 103/ul Normal 0.0-0.7 [facility] Comment on above: Performed By: #### C BC #### [facility] [address] [place] [address] Dr. Dave Duffy Eosinophils/100 WBC (Bld) 2.5 % Normal 0.9-7.0 [facility] Comment on above: Performed By: #### C BC #### [facility] [address] [place] [address] Dr. Dave Duffy Erythrocyte distribution width (RBC) [Ratio] 12.3 % Normal 11.0-15.0 [facility] Comment on above: Performed By: #### C BC #### [facility] [address] [place] [address] Dr. Dave Duffy Hematocrit (Bld) [Volume fraction] 32.8 % Critically low 42.0-54.0 [facility] Comment on above: Performed By: #### C BC #### [facility] [address] [place] [address] Dr. Dave Duffy Hemoglobin (Bld) [Mass/Vol] 11.4 g/dL Critically low 14.0-18.0 [facility] Comment on above: Performed By: #### C BC #### [facility] [address] [place] [address] Dr. Dave Duffy IG # 0.03 10e3/ul Normal 0.00-0.03 [facility] Comment on above: Performed By: #### C BC #### [facility] [address] [place] [address] Dr. Dave Duffy IG % 0.5 % Normal 0.0-0.5 [facility] Comment on above: Performed By: #### C BC #### [facility] [address] [place] [address] Dr. Dave Duffy LYMPH # 1.2 103/ul Normal 1.2-3.8 [facility] Comment on above: Performed By: #### C BC #### [facility] [address] [place] [address] Dr. Dave Duffy Lymphocytes/100 WBC (Bld) 18.9 % Critically low 20.5-60.0 [facility] Comment on above: Performed By: #### C BC #### [facility] [address] [place] [address] Dr. Dave Duffy MANUAL DIFF REQ NO Normal [facility] Comment on above: Performed By: #### C BC #### [facility] [address] [place] [address] Dr. Dave Duffy MCH (RBC) [Entitic mass] 32.8 pg Normal 25.9-34.0 [facility] Comment on above: Performed By: #### C BC #### [facility] [address] [place] [address] Dr. Dave Duffy MCHC (RBC) [Mass/Vol] 34.8 g/dL Normal 29.9-35.2 [facility] Comment on above: Performed By: #### C BC #### [facility] [address] [place] [address] Dr. Dave Duffy MCV (RBC) [Entitic vol] 94.3 fL Critically high 80.0-94 .0 [facility] Comment on above: Performed By: #### C BC #### [facility] [address] [place] [address] Dr. Dave Duffy MONO # 0.5 103/ul Normal 0.3-0.8 [facility] Comment on above: Performed By: #### C BC #### [facility] [address] [place] [address] Dr. Dave Duffy Monocytes/100 WBC (Bld) 8.9 % Normal 1.7-12.0 [facility] Comment on above: Performed By: #### C BC #### [facility] [address] [place] [address] [address] Dave Duffy NEUT # 4.2 103/ul Normal 1.4-6.5 [facility] Comment on above: Performed By: #### C BC #### [facility] [id number] Dave Duffy Neutrophils/100 WBC (Bld) 69.0 % Normal 43.0-75.0 [facility] Comment on above: Performed By: #### C BC #### [facility] [address] [place] [address] [address] Dave Duffy Platelet mean volume (Bld) [Entitic vol] 8.7 fL Critically low 9.5-13.5 [facility] Comment on above: Performed By: #### C BC #### [facility] [address] [place] [address] [address] Dave Duffy PLT 166 103/ul Normal 150-450 [facility] Comment on above: Performed By: #### C BC #### [facility] [address] [place] [address] [address] Dave Duffy RBC 3.48 106/ul Critically low 4.70-6.10 [facility] Comment on above: Performed By: #### C BC #### [facility] [address] [place] [address] [address] Dave Duffy WBC 6.1 103/ul Normal 4.0-11.0 [facility] Comment on above: Performed By: #### C BC #### [facility] [address] [place] [address] [address] Dave Duffy LIPID PROFILEon 04-05-2022 CHOL-HDL RATIO NORM SEE BELOW Normal [facility] Comment on above: Result Comment: 3.3 - 4.4 LOW RISK 4.4 - 7.1 AVERAGE RISK 7.1 - 11.0 MODERATE RISK >11.0 HIGH RISK Performed By: #### C MP, LIPID #### [facility] [address] [address] [address] Dave Duffy Cholesterol [Mass/Vol] 106 mg/dL Normal <=200 Th [facility] Comment on above: Performed By: #### C MP, LIPID #### [facility] [address] [address] [address] Dave Duffy Cholesterol in HDL [Mass/Vol] 36 mg/dL Critically low 40-60 [facility] Comment on above: Performed By: #### C MP, LIPID #### [facility] [address] [address] [address] Dave Duffy Cholesterol in LDL [Mass/Vol] 43.4 mg/dL Normal [facility] Comment on above: Performed By: #### C MP, LIPID #### [facility] [address] [address] [address] Dave Duffy Cholesterol.total/Choles terol in HDL [Mass ratio] 2.9 {ratio} Normal [facility] Comment on above: Performed By: #### C MP, LIPID #### [facility] [address] [place] [address] Dr. Dave Duffy HDL NORMAL > or = 60 mg/dl - LOW CARDIOVASCULAR RISK <40 mg/dl - HIGH CARDIOVASCULAR RISK Normal [facility] Comment on above: Performed By: #### C MP, LIPID #### [facility] [address] [place] [address] Dr. Dave Duffy LDL CALC NORMAL SEE BELOW Normal [facility] Comment on above: Result Comment: <100 mg/dl OPTIMAL 100 - 129 mg/dl NEAR OR ABOVE OPTIMAL 130 - 159 mg/dl BORDERLINE HIGH 160 - 189 mg/dl HIGH >190 mg/dl VERY HIGH Performed By: #### C MP, LIPID #### [facility] [address] [place] [address] Dr. Dave Duffy Triglyceride [Mass/Vol] 133 mg/dL Normal <=150 [facility] Comment on above: Performed By: #### C MP, LIPID #### [facility] [address] [place] [address] Dr. Dave Duffy VLDL CALC 26.6 mg/dL Normal [facility] Comment on above: Performed By: #### C MP, LIPID #### [facility] [address] [place] [address] Dr. Dave Duffy MICROALBUMIN, RAND URon 11-0 mALB 19.6 mg/L Normal <=30.0 [facility] Comment on above: Performed By: #### M ALBR #### [facility] [address] [place] [address] Dr. Dave Duffy PROF 14(COMP METB)on 022 Albumin [Mass/Vol] 3.6 g/dL Normal 3.4-5.0 [facility] Comment on above: Performed By: #### C MP, LIPID #### [facility] [address] [place] [address] Dr. Dave Duffy Albumin/Globulin [Mass ratio] 1.2 {ratio} Normal [facility] Comment on above: Performed By: #### C MP, LIPID #### [facility] [address] [place] [address] Dr. Dave Duffy ALP [Catalytic activity/Vol] 102 U/L Normal 46-116 [facility] Comment on above: Performed By: #### C MP, LIPID #### [facility] [address] [place] [address] Dr. Dave Duffy ALT [Catalytic activity/Vol] 22 U/L Normal 16-63 [facility] Comment on above: Performed By: #### C MP, LIPID #### [facility] [address] [place] [address] Dr. Dave Duffy Anion gap [Moles/Vol] 10.8 mmol/L Normal [facility] Comment on above: Performed By: #### C MP, LIPID #### [facility] [address] [place] [address] Dr. Dave Duffy AST [Catalytic activity/Vol] 13 U/L Critically low 15-37 [facility] Comment on above: Performed By: #### C MP, LIPID #### [facility] [address] [place] [address] Dr. Dave Duffy Bilirubin [Mass/Vol] 0.5 mg/dL Normal 0.2-1.0 [facility] Comment on above: Performed By: #### C MP, LIPID #### [facility] [address] [address] [address] Dave Duffy Calcium [Mass/Vol] 8.6 mg/dL Normal 8.5-10.1 [facility] Comment on above: Performed By: #### C MP, LIPID #### [facility] [address] [address] [address] Dave Duffy Chloride [Moles/Vol] 107 mmol/L Normal 98-107 [facility] Comment on above: Performed By: #### C MP, LIPID #### [facility] [address] [place] [address] Dr. Dave Duffy CO2 [Moles/Vol] 25.7 mmol/L Normal 21.0-32.0 [facility] Comment on above: Performed By: #### C MP, LIPID #### [facility] [address] [place] [address] Dr. Dave Duffy Creatinine [Mass/Vol] 2.99 mg/dL Critically high 0.70-1.30 [facility] Comment on above: Performed By: #### C MP, LIPID #### [facility] [address] [place] [address] Dr. Dave Duffy EGFR-AF AUSTRALIAN 25 mL/min/1.73m2 Critically low >=60 [facility] Comment on above: Performed By: #### C MP, LIPID #### [facility] [address] [place] [address] Dr. Dave Duffy EGFR-NON AF AUSTRALIAN 21 mL/min/1.73m2 Critically low >=60 [facility] Comment on above: Performed By: #### C MP, LIPID #### [facility] [address] [place] [address] Dr. Dave Duffy Globulin (S) [Mass/Vol] 3.1 g/dL Normal [facility] Comment on above: Performed By: #### C MP, LIPID #### [facility] [address] [place] [address] Dr. Dave Duffy Glucose [Mass/Vol] 106 mg/dL Normal 74-106 [facility] Comment on above: Performed By: #### C MP, LIPID #### [facility] [address] [address] [address] Dave Duffy Potassium [Moles/Vol] 4.5 mmol/L Normal 3.5-5.1 [facility] Comment on above: Performed By: #### C MP, LIPID #### [facility] [address] [address] [address] Dave Duffy Protein [Mass/Vol] 6.7 g/dL Normal 6.4-8.2 [facility] Comment on above: Performed By: #### C MP, LIPID #### [facility] [address] [address] [address] Dave Duffy Sodium [Moles/Vol] 139 mmol/L Normal 136-145 [facility] Comment on above: Performed By: #### C MP, LIPID #### [facility] [address] [address] [address] Dave Duffy Urea nitrogen [Mass/Vol] 43.0 mg/dL Critically high 7.0-18 .0 [facility] Comment on above: Performed By: #### C MP, LIPID #### [facility] [address] [address] [address] Dave Duffy Urea nitrogen/Creatinine [Mass ratio] 14.4 mg/mg Normal [facility] Comment on above: Performed By: #### C MP, LIPID #### [facility] [address] [address] [address] Dave Duffy Ambulatory Visit Summaryon 1 Ambulatory Visit Summary EUGENIO CREWS :1945 Visit Date:04/03/2022 Ambulatory Visit Instructions Your Diagnosis BPH with urinary obstruction Elevated PSA Tests Performed Urnls Dip Stick Auto w/o Microscopy POC [id number] Your Care Team Attending Physician - JADE DOYLE, Jenaro [facility] Primary Care Physician - GERRY CHANG DO This Is Your Medications List Contact [...] [facility] [address], [place] [address] [phone] Medications What How Much When Instructions Unchanged [...] Urnls Dip Stick Auto w/o Microscopy POC 55593 (04/03/2022) Bilirubin Urine Dipstick - Negative Blood Urine Dipstick - Trace-intact Glucose Urine Dipstick - 2+ 500 mg/dl Ketones Urine Dipstick - Trace - 5 mg/dl Leukocytes Urine Dipstick - Negative Nitrite Urine Dipstick - Negative Protein Urine Dipstick - 2+ (100 mg/dl) Specific [place] Urine Dipstick - >=1.030 Urine Appearance Urine [...] including vitamins, herbs, eye drops, creams, and bcxi-wfe-qwctfhn medicines. This also includes: ? Medicines to assist with hair growth, such as finasteride. ? Any recent exposure to a medicine called diethylstilbestrol. ? Any blood disorders you have. ? Any recent procedures you have had, especially any procedures involving the prostate or rectum. ? Any medical conditions you have. ? An (more content not included)... Normal [facility] Patient Educationon 04-03-20 22 Patient Education Oncology [...] including vitamins, herbs, eye drops, creams, and vhfm-hue-pnumsrt medicines. This also includes: ? Medicines to [...] 06/23/2005 Document Revised: 05/03/2018 Document Reviewed: 02/25/2018 [employer] Patient Education ? 2019 [employer]. Christian Bhatt [facility] Urology Office/Clinic Noteon 04-03-2022 Urology Office/Clinic Note [...] with lower urinary tract symptoms) s/p turp -2012. Patient gets up 1x per night. good [...] Only if needed [facility] [address] , [place] [address] [phone] Additional Instructions: Patient Education Prostate-Specific Antigen Test I, Temi Cervantes, personally scribed for Dr. Hansen on 04/03/2022 13:31:35. . Documentation recorded by the scribe, Temi Cervantes, accurately reflects the services(s) I performed and decisions made by me. Authenticated by Dr. Hansen on 04/03/2022 13:39:59. Problem List/Past Medical History [...] Dipstick: 2+ (100 mg/dl) (04/03/22 12:35:00) Specific [place] Urine Dipstick: >=1.030 (04/03/22 12:35:00) Urine Appearance Urine Dipstick: Clear (04/03/22 12:35:00) Urine Color Urine Dipstick: Yellow (04/03/22 12:35:00) Urobilinogen Urine Dipstick: Normal 0.2-1 EU/dl (04/03/22 12:35:00) pH Urine Dipstick: 5 (04/03/22 12:35:00) Normal [facility] Comment on above: Result Comment: Elec tronically Signed By: Jenaro HANSEN MD\.br\Date and Time Signed: 04/03/22 13:40 EDT\.br\Electronically [...] by: ALONZO MADRIGAL Date: 2022-03-05 11:26 Normal [facility] Dejuan 02-24-2022 CNPN Telephone ([employer]) ---- EUGENIO CREWS ([id number]) 1945 M TRN Date Time Provider Department 02/24/22 ROSELYN PAGE During your visit today, we recorded the following information about you: ARIELLE Fuentes 02/24/2022 12:09 PM Signed Patient appears on the First Time Treatment List for a non-oncology treatment. No psychosocial assessment is indicated. NATE Fuentes-S Allergies As of Date: 02/24/2022 Noted Allergy Reaction PIPERACILLIN-TAZOBA CTAM 09/14/2009 2 - Rash Comments: Pt developed severe rash after zosyn initiated KETOROLAC 09/23/2020 16 - Unknown Comments: kidney killer Date Reviewed: 02/24/2022 Reviewed by: Yoly Boss PA-C - Fully Assessed Reason for Visit: [...] Encounter Status:Closed by RO[facility]LYN PAGE [facility] ([facility]) ---- EUGENIO CREWS ([id number]) 1945 M TRN Date Time Provider Department 02/23/22 EAMON BISWAS During your visit today, we recorded the following information about you: Eamon Biswas RN 02/23/2022 4:42 PM Signed Patient of Dr Kidd who is scheduled for cath vernell 02/27/22 per prior phone encounter, can you please place orders. Thanks! DARELL Parker PA-C 02/24/2022 8:21 AM Signed Done Yoly Boss PA-C Allergies As of Date: 02/23/2022 Noted Allergy Reaction PIPERACILLIN-TAZOBA CTAM 09/14/2009 2 - Rash Comments: Pt developed severe rash after zosyn initiated KETOROLAC 09/23/2020 16 - Unknown Comments: kidney killer Date Reviewed: 02/21/2022 Reviewed by: Yoly Boss PA-C - Fully Assessed Reason for Visit: [...] (HCC) [T82.594A] 02/21/2022 Encounter Status:Closed by EAMON BISWAS on 03/02/22 [facility] Dejuan 02-21-2022 CNPN Telephone ([place]) ---- EUGENIO CREWS ([id number]) 1945 M TRN Date Time Provider Department [...] add patient to the treatment schedule. Yoly Boss PA-C 02/21/2022 11:32 AM Signed Orders placed TIMOTEO Stanley RN 02/21/2022 12:37 PM Signed Spoke with and informed her that the orders were placed. NSG: states that it was accessed 2 days in a row at [facility] and there was swelling above port site. Dr. Reyes thought perhaps the nurse missed as they use a smaller port at [place] which is where he had it placed. Informed that if we have swelling while patient is here, we would not proceed. verbalized understanding. PSS: please call patient/ to schedule on infusion schedule for possible 2 doses of activase. Jamia: Can you get an xray that was taken of the port at [facility] recently. ( states they did [...] killer Date Reviewed: 02/21/2022 Reviewed by: Yoly Boss PA-C - Fully Assessed Reason for Visit: port issues [Other] Visit Diagnosis:Obstructi on of central line, initial encounter ([facility]) [T82.594A] Prescriptions as of 02/21/2022 [...] AILEEN JENKINS on 02/21/22 Normal [facility] GLYCOHEMOGLOBIN A1Con 2021 ADA RECOMMENDATION SEE BELOW Normal [facility] [place]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 Phone: Comment on above: Expected: 03/13/2022 , Expires: 05/13/2022 Start: 03-13-2022 End: 05-13-2022 Comprehensive metabolic 2000 panel - Serum or Plasma COMP METABOLIC PANEL Lab Routine Non-Hodgkin's lymphoma, unspecified body region, unspecified non-Hodgkin lymphoma type (HCC) Expected: 03/13/2022, Expires: 05/13/2022 [facility] Work Phone: Comment on above: Expected: 03/13/2022 , Expires: 05/13/2022 Start: 03-13-2022 End: 05-13-2022 Lactate dehydrogenase [Enzymatic activity/volume] in Serum or Plasma LD LACTATE DEHYDRO Lab Routine Non-Hodgkin's lymphoma, unspecified body region, unspecified non-Hodgkin lymphoma type (HCC) Expected: 03/13/2022, Expires: 05/13/2022 [facility] Work Phone: Comment on above: Expected: 03/13/2022 , Expires: 05/13/2022 Start: 02-02-2022 Influenza vaccination INFLUENZA (#1) [facility] Start: 11-25-2021 Adult depression screening assessment DEPRESSION SCREENING [facility] Start: 09-23-2021 Colonoscopy COLONOSCOPY [facility] Start: 06-04-2021 ADVANCE DIRECTIVE DISCUSSION ADVANCE DIRECTIVE DISCUSSION [facility] Start: 06-04-2021 DEPRESSION ASSESSMENT DEPRESSION ASS ESSMENT [facility] Start: 04-11-2021 COVID-19 VACCINE (4 - Booster for Pfizer series) COVID-19 VACCINE (4 - Booster for Pfizer series) [facility] Start: 1992 COLOGUARD (FIT-DNA) COLOGUARD (FIT-D NA) [facility] Start: [address] COLONOGRAPHY [facility] Start: 1992 SIGMOIDOSCOPY SIGMOIDOSCOPY [facility] Start: 1966 Urine microalbumin profile DTAP,TDAP,TD (1 - Tdap) [facility] Start: 1965 ANNUAL PCP TEAM STEERER ALETHA DISEASE VISIT ANNUAL PCP TEAM CHRONIC DISEASE VISIT [facility] Start: 1965 Hepatitis B surface antibody level LDL CHOLESTEROL [facility] Start: 1965 HEPATIT[facility] Start: 1957 3 comp foot exam completed DIABETIC FOOT EXAM [facility] Start: 1957 Hepatitis C antibody , confirmatory test DILATED RETINAL EXAM [facility] Start: 1953 PNEUMOCOCCAL: 65+ (1 - PCV) PNEUMOCOCCAL: 65+ (1 - PCV) [facility] Start: 1952 Hemoglobin A1c/Hemoglobin.total in Blood HBA1C [facility] Comprehensive metabo lic 2000 panel - Serum or Plasma [facility] Patient referral [facility] Work Phone: [facility] Immunizations Immunization Date Immunization Notes Care Provider Jose whalen 02-13-2024 influenza virus vaccine, unspecified formulation Ashley Manzano 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 [employer]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 Work Phone: [facility] 03-13-2023 COVID-19 Vaccine Pfi zer - Documentation Purposes Only Gerry Chang Other [facility] 03-13-2023 influenza virus vaccine, unspecified formulation [facility] 03-13-2023 Influenza, Seasonal, Quadrivalent, Adjuvanted Ashley Manzano 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 [employer]RO[employer] LO[employer]ER Work Phone: [facility] 03-13-2023 influenza, high dose seasonal, preservative-free Gerry Chang Other [facility] [email or web address] Other 02-23-2022 influenza virus vaccine, split virus (incl. purified surface antigen) Gerry Chang Other [facility] [email or web address] Other 02-23-2022 influenza virus vaccine, unspecified formulation [facility] 02-23-2022 Influenza, Seasonal, Quadrivalent, Adjuvanted Ashley Manzano 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 [employer]RO[employer] LO[employer]ER Work Phone: [facility] 02-25-2021 influenza virus vaccine, split virus (incl. purified surface antigen) Gerry Chang Other [facility] [email or web address] Other 02-25-2021 influenza virus vaccine, unspecified formulation [facility] 02-25-2021 Seasonal trivalent influenza vaccine, adjuvanted, preservative free Aileen Jenkins RN [facility] 07-28-2020 COVID-19 Vaccine Pfi zer - Documentation Purposes Only Gerry Chang Other [facility] 07-07-2020 COVID-19 Vaccine Pfi zer - Documentation Purposes Only Gerry Chang Other [facility] 02-05-2020 influenza, high-dose , quadrivalent vaccine (FLUZONE HIGH DOSE QUADRIVALENT) Aileen Jenkins RN [facility] 08-17-2019 zoster vaccine recombinant Aileen Jenkins RN [facility] 06-01-2019 zoster vaccine recombinant Aileen Jenkins RN [facility] 03-12-2019 influenza virus vaccine, split virus (incl. purified surface antigen) Gerry Chang Other [facility] [email or web address] Other 03-12-2019 influenza virus vaccine, unspecified formulation [facility] 03-26-2018 influenza virus vaccine, split virus (incl. purified surface antigen) Gerry Chang Other [facility] [email or web address] Other 03-26-2018 influenza virus vaccine, unspecified formulation [facility] 03-26-2018 Seasonal trivalent influenza vaccine, adjuvanted, preservative free Aileen Jenkins RN [facility] 11-16-2017 diphtheria, tetanus toxoids and acellular pertussis vaccine, unspecified formulation Gerry Chang Other [facility] 04-12-2017 influenza virus vaccine, split virus (incl. purified surface antigen) Gerry Chang Other [facility] [email or web address] Other 04-12-2017 influenza virus vaccine, unspecified formulation [facility] 04-12-2017 influenza, high dose seasonal, preservative-free Aileen Jenkins RN [facility] 03-15-2016 influenza virus vaccine, split virus (incl. purified surface antigen) Gerry Chang Other [employer] Other 03-15-2016 influenza virus vaccine, unspecified formulation [facility] 03-15-2016 influenza, high dose seasonal, preservative-free Aileen Long RN [facility] 04-09-2015 pneumococcal conjuga te vaccine, 13 valent Gerry Chang Other [facility] 04-06-2015 influenza virus vaccine, split virus (incl. purified surface antigen) Gerry Chang Other [facility] [email or web address] Other 04-06-2015 influenza virus vaccine, unspecified formulation [facility] 04-06-2015 influenza, high dose seasonal, preservative-free Aileen Jenkins RN [facility] 03-16-2014 pneumococcal Conjuga te, unspecified formulation; Translations: [Need for prophylactic vaccination against Streptococcus pneumoniae (pneumococcus)] Gerry Chang Other [facility] [email or web address] Other 03-16-2014 pneumococcal polysaccharide vaccine, 23 valent Gerry Chang Other [facility] 03-16-2014 tetanus and diphther ia toxoids, adsorbed, preservative free, for adult use (5 Lf of tetanus toxoid and 2 Lf of diphtheria toxoid) Gerry Chang Other [facility] 04-10-2013 zoster vaccine, live Aileen Calvo [facility] 03-26-2002 diphtheria, tetanus toxoids and acellular pertussis vaccine, unspecified formulation Gerry Chang Other [facility] Payers Date Payer Category Payer Private Health Insurance [id number] 2004 Medicare [id number] 1959 Medicare [id number] 1959 Self-pay 1959 Unknown [id number] 1947 Unknown [id number] 2.16.840.1.875967.3.579.2. 727 1947 Unknown [id number] 2.16.840.1.329448.3.579.2. 593 1947 Unknown [id number] 2.16.840.1.459276.3.579.2. 593 1947 Unknown [id number] 2.16.840.1.829169.3.579.2. 593 1947 Unknown [id number] 2.16.840.1.861420.3.579.2. 593 1947 Unknown [id number] 2.16.840.1.358115.3.579.2. 593 1947 Unknown [id number] 2.16.840.1.646642.3.579.2. 593 1947 Unknown [id number] 2.16.840.1.539014.3.579.2. 593 1947 Unknown [id number] 2.16.840.1.771540.3.579.2. 593 1947 Unknown [id number] 2.16.840.1.456491.3.579.2. 593 1947 Unknown [id number] 2.16.840.1.303575.3.579.2. 593 1947 Unknown [id number] 2.16.840.1.095943.3.579.2. 593 1947 Unknown [id number] 2.16.840.1.796326.3.579.2. 593 1947 Unknown [id number] 2.16.840.1.665396.3.579.2. 593 1947 Unknown [id number] 2.16.840.1.548306.3.579.2. 593 1947 Unknown [id number] 2.16.840.1.232946.3.579.2. 593 1947 Unknown [id number] 2.16.840.1.312471.3.579.2. 593 1947 Unknown [id number] 2.16.840.1.178777.3.579.2. 593 1947 Unknown [id number] 2.16.840.1.992856.3.579.2. 593 1947 Unknown [id number] 2.16.840.1.174660.3.579.2. 1259 1947 Unknown [id number] 2.16.840.1.389460.3.579.2. 1259 1947 Unknown [id number] 2.16.840.1.905432.3.579.2. 1259 1947 Unknown [id number] 2.16.840.1.871172.3.579.2. 1259 1947 Unknown [id number] 2.16.840.1.553511.3.579.2. 1259 1947 Unknown [id number] 2.16.840.1.480218.3.579.2. 1259 1947 Unknown [id number] 2.16.840.1.306272.3.579.2. 125 1947 Unknown [id number] 2.16.840.1.748544.3.579.2. 1259 Medicare Medicare Outpatient [id number] Private Health Insurance [facility] [id number] Unknown [id number] 2.16.840.1.027825.3.579.2. 593 Unknown [id number] 2.16.840.1.204580.3.579.2. 531 Unknown [id number] 2.16.840.1.701514.3.579.2. 531 Social History Date Type Detail Facility Start: 07-15-2012 End: 08-28-2023 Tobacco smoking status NCIS Never smoked tobacco [facility] Start: 07-15-2012 End: 05-22-2023 Tobacco use and exposure Smokeless tobacco non-user [facility] Start: 03-23-2021 Alcohol intake Current non-dr ribbon inker of alcohol (finding) [facility] Start: 1945 Sex Assigned At Not on file [facility] Start: 02-11-2022 End: 02-27-2022 Exposure to SARS-CoV-2 (event) Not sure [facility] Start: 10-31-2023 End: 03-21-2024 Sex Assigned At Male [facility] Start: 1945 Sex Assigned At Male F [facility] Start: 10-31-2023 End: 03-21-2024 Alcoholic beverage intake Current drinker of alcohol (finding) [facility] Start: 10-31-2023 End: 03-21-2024 History of Social function [facility] Start: 03-06-2023 Alcohol Comment Monthly or less [facility] Medical Equipment Procedure Code Equipment Code Equipment Original Text Equi pment Identifier Dates 1 each by Other route if needed Goals Date Patient Goal Desired Activity /State Functional Status Date Assessment Result Facility 04-03-2022 Functional Status N/A [facility] Clinical Notes 05-02-2019 to 03-21-2024 Ashley Manzano, 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 General Exam: alert, oriented to person, place, and time, normal affect, well appearing Unaccompanied A complete skin exam was offered, pt declined. Areas not examined despite medical recommendation: From the waist down and Under shirt Scalp, Examined Head, Face Examined Neck Examined Chest Not examined Back Not examined Abdomen Not examined Right arm Examined Left arm Examined Hands Examined Digits,nails: Examined Lymphatics: Not examined 1. Melanocytic nevus of right upper extremity Right Arm Scattered benign appearing, regular brown to light brown melanocytic papules and macules with similar morphology Counseled regarding these benign growths. Rarely, a nevus can develop into malignant melanoma, so any changing nevi should be promptly re-evaluated. 2. Melanocytic nevus of left upper extremity Left Arm Scattered benign appearing, regular brown to light brown melanocytic papules and macules with similar morphology Counseled regarding these benign growths. Rarely, a nevus can develop into malignant melanoma, so any changing nevi should be promptly re-evaluated. 3. Seborrheic keratosis (3) Left Arm, Right Arm, Scalp Stuck on verrucous, vega-brown papules and plaques. Patient was counseled regarding these benign growths. Removal is normally not necessary, but they may be removed if they are symptomatic or for cosmetic reasons. 4. Actinic keratosis (11) Left Dorsal Hand, Left Forearm - Posterior, Left Frontal Scalp, Left Nasal Sidewall, Left Parotid Area, Right Buccal Cheek (2), Right Forearm - Anterior (2), Right Forearm - Posterior, Right Evangelical Erythematous scaly papules Patient was counseled regarding these sun-induced growths that can develop into squamous cell carcinoma if left untreated. Discussed treatment with cryotherapy. It was emphasized that any treated lesions that fail to resolve should be re-evaluated. Cryotherapy performed today; see procedure note Diagnosis: Actinic keratosis Indication: Precancerous Location: see skin exam Consent: Verbal consent was obtained and risks were discussed, including, but not limited to risks of scarring, darker or spray gun striper pigmentary changes, recurrence, incomplete removal and infection. Method: Liquid nitrogen was used to treat the lesion(s) with two 5-10 second freeze-thaw cycles. Number of lesions treated: 11 Post-procedure instructions: Instructions were given orally and in writing. The office will be contacted if the lesion fails to resolve despite treatment, or if a side effect develops such as abnormal crusting, scabbing, redness or tenderness Cryotherapy, skin lesion - Left Dorsal Hand, Left Forearm - Posterior, Left Frontal Scalp, Left Nasal Sidewall, Left Parotid Area, Right Buccal Cheek (2), Right Forearm - Anterior (2), Right Forearm - Posterior, Right Evangelical 5. Capillary angioma (2) Left Arm, Right Arm Scattered chambers-red papule(s). The patient was informed that angiomas are benign growths on the the skin. No treatment is necessary. 6. 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 The patient was counseled that scars from excisional sites of nonmelanoma skin cancers should be monitored closely for recurrence. The patient was instructed to contact the office for any new, changing, or symptomatic moles. The patient was also instructed to contact the office for any new lesions that develop within or around the previous surgery scar. Next Visit: 1 year, skin check documented in this encounter [facility] 07-03-2023 Evaluation note Encounter Date Diagnosis Assessment Notes Jun, Pernicious anemia (ICD-10 - D51.0) [employer] Other 10-24-2023 Evaluation note* Encounter Date Diagnosis [...] index [BMI] 30.0-30.9, adult (ICD-10 - Z68.30) [employer] Other 09-29-2023 Evaluation note* Encounter Date Diagnosis [...] in public places for complete 10 days [employer] Other 09-05-2023 Evaluation note* Encounter Date Diagnosis Assessment Notes Treatment Notes Treatment Clinical Notes Feb, Pernicious anemia (ICD-10 - D51.0) [employer] Other 07-31-2023 Evaluation note* Encounter Date Diagnosis Assessment Notes Treatment Notes Treatment Clinical Notes Dec, Pernicious anemia (ICD-10 - D51.0) [employer] Other 06-26-2023 Evaluation note* Encounter Date Diagnosis Assessment Notes Treatment Notes Treatment Clinical Notes Nov, Pernicious anemia (ICD-10 - D51.0) [employer] Other 03-27-2023 Evaluation note* Encounter Date Diagnosis Assessment Notes Treatment Notes Treatment Clinical Notes Aug, Pernicious anemia (ICD-10 - D51.0) [employer] Other 02-23-2023 Evaluation note* Encounter Date Diagnosis Assessment Notes Treatment Notes Treatment Clinical Notes Jul, Pernicious anemia (ICD-10 - D51.0) [employer] Other 01-23-2023 Evaluation note* Encounter Date Diagnosis Assessment Notes Treatment Notes Treatment Clinical Notes Jun, Pernicious anemia (ICD-10 - D51.0) [employer] Other 10-31-2022 Hospital Discharge instructions Patient Education [...] including vitamins, herbs, eye drops, creams, and bthp-ptu-fkcdixo medicines. This also includes: ?Medicines to assist [...] 06/23/2005 Document Revised: 05/03/2018 Document Reviewed: 02/25/2018 [employer] Patient Education [email or web address]. Follow Up Care 03/28/2021 16:51:27 With:JADE DOYLE, Jenaro Roberto, URL Address: [facility] [address] , [place] [address]- [phone] When: only if needed [facility] 10-10-2022 Miscellaneous Notes* Telephone Encounter - Irena Cabrera - 03/13/2022 2:48 PM EDT Per last note 03/2021 follow up with labs. Please add lab orders for Sunday03/22/22. Thanks. Irena Cabrera MA [facility] NoteHNO ID: [id number] Author: Iona Cabrera RN Service: ? Author Type: Registered Nurse Type: Progress Notes Filed: 02/28/2022 2:28 PM Note Text: Report of findings called to Trisha VIDAL at Dr. Jasso' office. She states she will let Dr. Reyes know. Elisabeth Cabrera RNUniversity [facility]als [facility]09-26-2022 NoteHNO ID: [id number] Author: Iona Cabrera RN Service: ? Author [...] scheduled on 03/01/22. Elisabeth Cabrera RNUniversity [facility]als [facility]09-26-2022 History of Present illness Narrative* Iona Cabrera [...] 03/01/22. Elisabeth Cabrera RN documented in this encounter[facility]-23-[facility]22 Miscellaneous Notes* Telephone Encounter - Yoly Boss PA-C - 02/24/2022 8:21 AM EDT Done Yoly Boss PA-C * Telephone Encounter - Eamon Biswas RN - 02/23/2022 4:40 PM EDT Patient of Dr Kidd who is scheduled for cath vernell 02/27/22 per prior phone encounter, can you please place orders. Thanks! Eamon Biswas RN documented in this encounterAv[facility]-20-2022 Miscellaneous Notes* Telephone Encounter - Allyssa Rueda [...] accessed 2 days in a row at [facility] and there was swelling above port site. Dr. Reyes thought perhaps the nurse missed as they use a smaller port at [place] which is where he had it placed. Informed that if we have swelling while patient is here, we would not proceed. verbalized understanding. PSS: please call patient/ to schedule on infusion schedule for possible 2 doses of activase. Jamia: Can you get an xray that was taken of the port at [facility] recently. ( states they did one) * Telephone Encounter - Yoly Boss PA-C - 02/21/2022 11:32 AM EDT Orders placed Yoly Boss PA-C * Telephone Encounter - Aileen Jenkins [...] to the treatment schedule. documented in this encounterAv[facility]06-08-2022 NotePROCEDURE: XR FOOT LT MIN 3 VIEWS [...] Electronically authenticated by: ALONZO MADRIGAL Date: 2021-11-09 17:01[facility]10-20-2021 NoteHNO ID: [id number] Author: Kendall Honeycutt APRN.CEMENT RAILROAD CAR LOADER Service: ? Author Type: Nurse Practitioner Type: Progress Notes Filed: 03/25/2021 12:42 PM Note Text: Patient: Eugenio Crews Location: [facility] : 1945 Attending Physician: Dr. Kings Jones Date: March 23, 2021 Progress Note Chief [...] autologous transplant in 2009. Followed by Dr. Jones previously. Eugenio Crews returns for follow-up. Since [...] colonoscopy in September with Dr. Reyes in [place]. He denies fevers, chills, night sweats and signs/symptoms of infection. No palpable lumps or bumps. He is scheduled to see his PCP, Dr. Chang this Sunday. He remains on monthly B12 [...] with any questions or concerns. Kendall Honeycutt APRN.CEMENT RAILROAD CAR LOADER March 23, 2021 I spent a total of 30 minutes on the date of the service which included preparing to see the patient, [id number]-[id number] patient care, completing clinical documentation, obtaining and/or reviewing separately obta (more content not included)...[facility]11-29-2019 History of Past illness Narrative* [...] of this encounter (statuses as of 02/21/2022) [facility] History of Past illness Narrative* Problem Noted [...] of this encounter (statuses as of 02/27/2022) [facility] History of Past illness Narrative* Problem Noted [...] of this encounter (statuses as of 03/02/2022) [facility] History of Past illness Narrative* Problem Noted [...] of this encounter (statuses as of 03/13/2022) [facility] [place] [facility] Plan note No data available for this section [facility] evaluation note* Diagnosis Obstruction of central line, initial encounter (HCC) documented in this encounter [facility] note* Diagnosis Obstruction of central line, initial encounter (HCC)- Primary Follicular lymphoma, unspecified follicular lymphoma type, unspecified body region (HCC) documented in this encounter [facility] note* Diagnosis Non-Hodgkin's lymphoma, unspecified body region, unspecified non-Hodgkin lymphoma type (HCC)- Primary documented in this encounter [facility] noteNo InformationNort Authorly Other Evaluation note* Diagnosis Onset Date Resolution Status Chronic venous insufficiency acute Diabetes mellitus with hyperglycemia acute Hyperlipidemia, mixed acute Pernicious anemia acute Primary hypertension acute 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 [facility] Work Phone: Evaluation noteNo assessment information available [facility] Work Phone: Evaluation note* Diagnosis Onset Date Resolution Status Herpes zoster acute Type 2 diabetes mellitus with hyperglycemia acute Chronic venous insufficiency acute Hyperlipidemia, mixed acute Pernicious anemia acute Primary hypertension acute 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 Type 2 diabetes mellitus with hyperglycemia acute [facility] Work Phone: Evaluation note* Diagnosis Onset Date Resolution Status Chronic venous insufficiency acute Hyperlipidemia, mixed acute Pernicious anemia acute Primary hypertension acute 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 Type 2 diabetes mellitus with hyperglycemia acute [facility] Work Phone: Evaluation note* Diagnosis Melanocytic nevus of right upper extremity Melanocytic nevus of left upper extremity Seborrheic keratosis Actinic keratosis Capillary angioma Nevus, non-neoplastic History of SCC (squamous cell carcinoma) of skin Personal history of other malignant neoplasm of skin [facility] Diagnosis Onset Date Resolution Status Chronic kidney disease acute Chronic venous insufficiency acute Hyperlipidemia, mixed acute Medicare annual wellness visit, subsequent acute Obesity acute Pernicious anemia acute Primary hypertension acute Screening PSA (prostate specific antigen) acute 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 Type 2 diabetes mellitus with hyperglycemia acute [facility] Work Phone: History general Narrative - Reported* Type Description Date Surgical History Problem Title : COLONOSCOPY (51 875), Problem Status : Active, Surgical History Problem Title : DAREN ERTOE REPAIR ([id number]), Problem Comment : left 2nd toe, Problem Status : Active, Surgical History Problem Title : Knee arthroscopy, Problem Comment : multiple 0094-2230, Problem Status : Inactive, Surgical History Problem Title : OSTE CTOMY OF TARSAL COALITION OF LEFT FOOT (83788), Problem Status : Active, Surgical History Problem [...] Foot Ulcer 09/2108, Problem Status : Active, [employer] Other History general Narrative - Reported* Type [...] Sitting balance~1/1^Arises~2/2^Attempts to arise~2/2^Immediate standing balance~2/2^Standing balance~1/1^Nudged~2/2^Eyes closed~1/1^360 degree turn~1/^Sitting down~2/2, Problem Status : Active,, Medical History Problem Title : Fall assessment-Gait score, Problem Description : Fall assessment-Gait score, Problem Comment : 05/15, Problem Status : Active,, Medical History Problem Title : Fall assessment-Gait score summary, Problem Description : Fall assessment-Gait score summary, Problem Comment : Initiation of gait~1/^Step length-left~1/1^Step height-left~1/1^Step length-right~1/1^Step height-right~1/1^Step symmetry~1/1^Step continuity~1/1^Path~2/2^Trunk~2/2^Walking stance~/, Problem Status : Active,, Medical History Problem [...] : Active,, Medical History Problem Title : [facility] Annual Wellness Exam, Problem Description : Medicare Annual Wellness Exam, Problem Comment : G0439, Problem Status : Active,, Medical History Problem Title : [facility] Part B,CMOD Checklist #1, Problem Description : [...] History Problem Title : DAREN ERTOE REPAIR ([id number]), Problem Comment : left 2nd toe, Problem Status : Active, Surgical History Problem Title : Knee arthroscopy, Problem Comment : multiple 1398-7074, Problem Status : Inactive, Surgical History Problem Title : OSTE CTOMY OF TARSAL COALITION OF LEFT FOOT (98913), Problem Status : Active, Surgical History Problem [...] Foot Ulcer 09/2108, Problem Status : Active, [employer] Other History general Narrative - Reported* Type [...] left 2nd toe Surgical History Knee arthroscopy [id number] Surgical History OSTECTOMY OF TARSAL COALITION O F LEFT FOOT Surgical History Resection of Large Bowel Surgical History Debridement Left Foot Ulcer 2018 Hospitalization History see surgical history [employer] Other Hospital Discharge instructions Additional Instructions 1. Sleep on 2 pillows 2. Small amount of Vaseline to sutures twice daily 3. You may shower late tomorrow afternoon, soap and water okay on wound 4. Tylenol or Motrin for discomfort 5 take antibiotic as prescribed 6. See Dr. 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 Advance Directive(s) 09/10/2009 10:04 PM [...] polyneuropathy Type 2 diabetes mellitus with hyperglycemia Chief Complaint shingles 4 month follow up B12 Shot Reason for Visit Herpes zoster Type 2 diabetes mellitus with hyperglycemia Chronic venous insufficiency Hyperlipidemia, mixed Pernicious anemia Primary hypertension Type 2 diabetes mellitus with diabetic polyneuropathy Type 2 diabetes mellitus with hyperglycemia Chief Complaint 4 month follow up B12 Shot B12 Shot Reason for Visit Chronic venous insuf ficiency Hyperlipidemia, mixed Pernicious anemia Primary hypertension Type 2 diabetes mellitus with diabetic polyneuropathy Type 2 diabetes mellitus with hyperglycemia Chief Complaint B12 Shot wellness Reason for Visit Chronic kidney disea se Chronic venous insufficiency Hyperlipidemia, mixed Medicare annual wellness visit, subsequent Obesity Pernicious anemia Primary hypertension Screening PSA (prostate specific antigen) Type 2 diabetes mellitus with diabetic polyneuropathy Type 2 diabetes mellitus with hyperglycemia Additional Source Comments Source Comments (unrecognize d section and content) In the event this informatio n is protected by the Federal Confidentiality of Alcohol and Drug Abuse Patient Records regulations: The Federal rules restrict any use of the information to criminally investigate or prosecute any alcohol or drug abuse patient.[facility] Hospital[facility] the event this information is protected by the Federal Confidentiality of Alcohol and Drug Abuse Patient Records regulations: The Federal rules restrict any use of the information to criminally investigate or prosecute any alcohol or drug abuse patient.[facility] HospitalIn the event this information is protected by the Federal Confidentiality of Alcohol and Drug Abuse Patient Records regulations: The Federal rules restrict any use of the information to criminally investigate or prosecute any alcohol or drug abuse patient.[facility] HospitalIn the event this information is protected by the Federal Confidentiality of Alcohol and Drug Abuse Patient Records regulations: The Federal rules restrict any use of the information to criminally investigate or prosecute any alcohol or drug abuse patient.[facility] Reason for Visit (unrecogniz ed section and content) Reason Comments port issues Reason Comments Treatment Planning Reason Comments Lab Orders Reason Comments Skin Check Care Teams (unrecognized sec tion and content) Team Status: Active Member Role Status Dates Gerry Chang DO Primary Care Provider Active Team Status: Inactive Member Role Status Dates Gerry Chang DO Primary Care Provide r, Attending Provider Active Start: September 12, 2023 End: September 12, 2023 Team Status: Inactive Member Role Status Dates Gerry Chang DO Primary Care Provide r, Attending Provider Active Start: November 02, 2023 End: November 02, 2023 Team Status: Inactive Member Role Status Dates Gerry Chang DO Primary Care Provide r, Attending Provider Active Start: November 28, 2023 End: November 28, 2023 Jig Builder Helper Relationship Specialty Start Date End Date Gerry Chang, DO [address] [facility] [place] [address] PCP - General 09/07/09 Jig Builder Helper Relationship Specialty Start Date End Date Gerry Chang, DO [address] [facility] [place] [address] PCP - General 09/07/09 Jig Builder Helper Relationship Specialty Start Date End Date Gerry Chang, DO [address] [facility] [place] [address] PCP - General 09/07/09 Jig Builder Helper Relationship Specialty Start Date End Date Gerry Chang, DO [address] [facility] [place] [address] PCP - General 09/07/09 Team Status: Active Member Role Status Freddy Chang DO Primary Care Provide r, Attending Provider Active Start: July 27, 2023 Team Status: Inactive Member Role Status Freddy Chang DO Primary Care Provide r, Attending Provider Active Start: July 30, 2023 End: July 30, 2023 Team Status: Active Member Role Status Freddy Chang DO Primary Care Provide r, Attending Provider Active Start: August 06, 2023 Team Status: Inactive Member Role Status Freddy Chang DO Primary Care Provide r, Attending Provider Active Start: August 10, 2023 End: August 10, 2023 Team Status: Inactive Member Role Status Freddy Chang DO Primary Care Provider Active Start: August 22, 2023 End: August 22, 2023 Gerry Nelson DO Attending Provider Active S tart: August 22, 2023 End: August 22, 2023 Team Status: Inactive Member Role Status Freddy Chang DO Primary Care Provider Active Start: August 28, 2023 End: August 28, 2023 Gerry Nelson DO Attending Provider Active S tart: August 28, 2023 End: August 28, 2023 Team Status: Active Member Role Status Dates Gerry Chang DO Primary Care Provide r, Attending Provider Active Start: December 19, 2023 Team Status: Inactive Member Role Status Dates Gerry Chang DO Primary Care Provide r, Attending Provider Active Start: December 31, 2023 End: December 31, 2023 Team Status: Inactive Member Role Status Dates Gerry Chang DO Primary Care Provide r, Attending Provider Active Start: February 05, 2024 End: February 05, 2024 Jig Builder Helper Relationship Specialty Start Date End Date Gerry Chang MD PCP - General Internal Medicine 08/04/23 Talib Gant MD [address] [place] [address] Referring Physician Dermatology 10/31/23 Gerry Nelson DO [address] [place] [address] Otolaryngology 10/31/23 Jig Builder Helper Relationship Specialty Start Date End Date Gerry Chang MD PCP - General Internal Medicine 08/04/23 Talib Gant MD [address] [place] [address] Referring Physician Dermatology 10/31/23 Gerry Nelson DO [address] [place] [address] Otolaryngology 10/31/23 Team Status: Inactive Member Role Status Dates Gerry Chang DO Primary Care Provide r, Attending Provider Active Start: March 31, 2024 End: March 31, 2024 (unrecognized sect ion and content) No Status Records FoundNo Status Records FoundNo Status Records FoundNo Status Records FoundNo Status Records Found INFORMATION SOURCE (unrecogn ized section and content) DATE CREATED AUTHOR 03/05/2022 [facility] DATE CREATED AUTHOR AUTHOR'S ORGANIZ ATION 04/09/2022 Bhatt Danny [facility] DATE CREATED AUTHOR AUTHOR'S ORGANIZ ATION 10/18/2022 [facility] [place] [facility] DATE CREATED AUTHOR AUTHOR'S ORGANIZ ATION 09/10/2023 [facility] DATE CREATED AUTHOR AUTHOR'S ORGANIZ ATION 03/23/2024 [facility] EPIC Goals (unrecognized section [...] BE BASED ON THE PRIMARY CLINICAL RECORDS. [employer] provides no warranty or guarantee of the accuracy or completeness of information in this document.
[2024-04-01 07:49] LABS: Basophils Percent Auto 0.3 % (0.2-2.0); Eosinophils Absolute Auto 0.2 10^3/uL (0.0-0.7); Eosinophils Percent Auto 2.2 % (0.9-7.0); Hematocrit 32.2 % (42.0-54.0); Hemoglobin 11.1 g/dL (14.0-18.0); Immature Granulocytes Abs Auto 0.02 10^3/uL (0.00-0.03); Immature Granulocytes Pct Auto 0.3 % (0.0-0.5); Lymphocytes Percent Auto 13.7 % (20.5-60.0); Mean Corpuscular HGB Conc 34.5 g/dL (29.9-35.2); Mean Corpuscular Hemoglobin 33.4 pg (25.9-34.0); Monocytes Absolute Auto 0.5 10^3/uL (0.3-0.8); Monocytes Percent Auto 7.6 % (1.7-12.0); Neutrophils Absolute Auto 5.3 10^3/uL (1.4-6.5); Neutrophils Percent Auto 75.9 % (43.0-75.0); Platelet Count 141 10^3/uL (150-450); Red Blood Count 3.32 10^6/uL (4.70-6.10); White Blood Count 6.9 10^3/uL (4.0-11.0)
[2024-04-01 08:45] LABS: Alanine Aminotransferase 14 U/L (16-63); Albumin Level 3.2 g/dL (3.4-5.0); Alkaline Phosphatase 92 U/L (46-116); Anion Gap 16.8; Aspartate Amino Transferase 12 U/L (15-37); BUN Creatinine Ratio 15.2; Bilirubin Total 0.4 mg/dL (0.2-1.0); Calcium 8.4 mg/dL (8.5-10.1); Carbon Dioxide 21.1 mmol/L (21.0-32.0); Chloride 109 mmol/L (98-107); Chol HDL Ratio 2.9; Cholesterol 103 mg/dL (<=200); Estimated GFR (African America 23 (>=60 mL/min/1.73m^2); Estimated GFR (Non-African Ame 19 (>=60 mL/min/1.73m^2); Globulin 3.3 g/dL; Glucose 151 mg/dL (74-106); HDL Cholesterol 36 mg/dL (40-60); Potassium 4.9 mmol/L (3.5-5.1); Sodium 142 mmol/L (136-145); Total Protein 6.5 g/dL (6.4-8.2); Triglycerides 170 mg/dL (<=150)
[2024-04-01 08:58] LABS: Creatinine Urine Random 103.93 mg/dL (20.00-300.00); Protein Creatinine Ratio Urine 0.91; Total Protein Urine Random 94.1 mg/dL (<=11.9)
[2024-04-01 08:59] LABS: Prostate Specific Antigen Scrn 5.63 ng/mL (<=4.00)
== END 2024-04-01 07:15 | disposition home or self-care (01) ==
LOC: LAB 07:17
PROVIDERS: PCP Internal Medicine; Visit Provider Internal Medicine
DX: E11.65 Type 2 diabetes mellitus with hyperglycemia (principal); I10 Essential (primary) hypertension; E78.2 Mixed hyperlipidemia; N18.9 Chronic kidney disease, unspecified; Z12.5 Encounter for screening for malignant neoplasm of prostate
CPT/HCPCS: 36415; 80053; 80061; 82570; 84156; 85025; G0103

== ENCOUNTER 2024-04-11 06:59 | Outpatient (OUT) | payer MEDICARE, SELFPAY ==
--- NOTE | 2024-04-11 07:02 | US_ITS ---
The [address] [address] Patient Name: EUGENIO CREWS MRN: [id number] date: 1945 Sex: M Assigned Patient Location: Current Patient Location: US Accession/Order Number: [id number] Exam Date: 04/11/2024 07:25 Report Date: 04/11/2024 10:39 At the request of: TAURUS CHANG Procedure: US renal BI EXAMINATION: US renal BI HISTORY: Chronic Kidney Disease COMPARISON: CT abdomen pelvis 11/05/2022 TECHNIQUE: Ultrasound examination was performed of the kidneys and urinary bladder. FINDINGS: RIGHT KIDNEY: Large fluid-filled collection within renal hilum without convincing dilation of all the calyces; this may represent a large cyst protruding into the hilum/parapelvic cyst. Nonobstructing 5 mm stone within the kidney. No significant cortical thinning, 1.4 cm in thickness. Color Doppler demonstrates blood flow within the kidney. Kidney: 11.0 x 7.4 x 5.7 cm LEFT KIDNEY: Contains a nonobstructing 8 mm stone. Normal parenchymal echogenicity. Mild cortical thinning, 1.1 cm in thickness. Color Doppler demonstrates blood flow within the kidney. Kidney: 11.4 x 5.2 x 5.6 cm US/US renal BI IMPRESSION: 1. Comparison to prior CT study suggests large right renal parapelvic cyst rather than dilated renal pelvis. CT abdomen without and with IV contrast (kidney protocol) would help clarify this finding. 2. Bilateral nonobstructing nephrolithiasis. 3. Mild cortical thinning/atrophy of left kidney; likely age related. Electronically authenticated by: QUIRINO TODD Date: 04/11/2024 10:39
--- OUTSIDE RECORDS SUMMARY | 2024-04-11 07:05 | XMS_ITS | CCD ---
Author Organization [facility] Inform ion 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 Role Phone Gerry Barton DO Primary Care Provider MARYJO KIDD Referring Unavailable GERRY BARTON Primary Care Unavailable KENDALL HONEYCUTT Attending Unavailable KINGS JOHNS Referring Unavailable GERRY BARTON Primary Care Unavailable YOLY DAVID Referring Unavailable GERRY BARTON Primary Care Unavailable GERRY BARTON Primary Care Physician Bernardo, Gerry Unavailable BERNARDO, DR GARRETT Primary Care Unavailable BALL, DR GARRETT Consulting Unavailable BALL, DR GARRETT Admitting Unavailable BALL, DR GARRETT Attending Unavailable GRILLIS ., DR BLADIMIR Mann Attending Unavaila ble GRILLIS ., DR BLADIMIR Mann Admitting Unavaila ble GRILLIS ., DR BLADIMIR Mann Consulting Unavaila ble BALL, DR GARRETT Primary Care Unavailable SEYMOUR, DR ALONZO Hernandez Consulting Unavailable BALL, DR [...] Unavailable Ball, DO Garrett Primary Care Provider [phone] DO Gerry Nelson Attending Provider Gerry Nelson Attending Unavailable Ball, Gerry Primary Care Unavailable Murcek, Gerry Admitting Unavailable Murcek, Gerry Admitting Unavailable Murcek, Gerry Attending Unavailable Ball, Gerry Primary Care Unavailable Gerry Barton MD Primary Care Provider Talib Fraser MD Unavailable Gerry Nelson DO Unavailable [phone] TALIB FRASER Attending Unavailable MURCEK, GERRY Booker Attending Unavailable PETITTTaryn, TALIB Leon Referring Unavailable MURCEK, GERRY Booker Attending Unavailable MURCEK, GERRY Booker Attending Unavailable BALL, GERRY Mann Referring Unavailable MURCEK, GERRY Booker Attending Unavailable PETITTI, TALIB A Referring Unavailable MURCEK, GERRY Booker Attending Unavailable HERNANDEZ, ROCKY Mann Attending Unavailable FELTER, ASHLEY A Attending Unavailable Jenaro HANSEN Attending Unavailable GERRY BARTON Referring Unavailable Allergies Allergy Classification Reported Allergen(s) Allergy Type Date of Onset Reaction(s) Facility (6 sources) Ketorolac; Translations: [KETOROLAC] Drug Allergy 09-24-19 21 Unknown, Unknown (qualifier value) [facility] (13 sources) Piperacillin / tazobactam; Translations: [PIPERACILLIN-TA ZOBACTAM] Drug Allergy 09-15-[address] [facility] (2 sources) Vorinostat; Translations: [vorinostat] Drug Allergy Unknown (qualifier value) [facility] (2 sources) Ketorolac; Translations: [Toradol] Drug Allergy [facility] (1 source) Piperacillin / tazobactam Drug Allergy 01-15-20 16 [facility] (1 source) tazobactam Drug Allergy [facility] (3 sources) patient allergy list reviewed by nurse or physicia Propensity to adverse reactions 12-26-19 19 Comment:Done [facility] Other (3 sources) Allergies Reconciled Propensity to adverse reactions Unknown [facility] Other (1 source) Piperacillin Drug Allergy 08-22-19 24 [facility] (3 sources) Ketorolac Allergy to substance 09-24-19 21 Unknown [facility] Work Phone: (3 sources) Ketorolac trometamol Allergy to substance 07-25-19 24 Unknown [facility] (3 sources) Piperacillin Drug Allergy 08-22-19 24 [facility] (3 sources) Piperacillin / tazobactam Drug Allergy 09-15-19 10 Rash [facility] (3 sources) Vorinostat Drug Allergy 08-22-19 24 Unknown [facility] Healthcare Work Phone: (3 sources) Piperacillin Sod-Tazobactam So Drug Intolerance 04-10-20 13 Other [facility] Medications Current Medications Medication Drug Class(es) [...] 02-28-2022 Episodic Other aftercare (2 sources) 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; Translations: [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] Onset: 04-10-2022 Episodic Other aftercare (3 sources) Long-term current use of 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; Translations: [Other skilled nursing (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] Episodic Other aftercare (4 sources) H/O: high risk medication; Translations: [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] Episodic Other and unspecified [...] and visceral atherosclerosis (3 sources) 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; Translations: [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, unspecified] Chronic Residual [...] Onset: 8 Episodic Other aftercare (1 source) 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; Translations: [RESIDENTIAL USE ORAL HYPOGLYCEMIC DX] Onset: 2 Episodic [...] Reference Range Facility No Panel Informationon 03-21 [facility] Glucose mean value [Mass/vol ume] in Blood Estimated from glycated hemoglobinon 12-19-2023 Average glucose Estimated from glycated hemoglobin (Bld) [Mass/Vol] 169 mg/dL [facility] - Hematology and Cell countson 12-19-2023 HbA1c (Bld) [Mass fraction] 7.5 % High 4.5-6.2 [facility] Comment on above: ADA RECOMMENDED LIMI T 4.0 - 6.0ADA THERAPEUTIC TARGET < 7.0ACTION SUGGESTED> 7.0 Glucose Glucometer (BldC) [M ass/Vol]Ordered By: Gerry Nelson on 08-28-2023 Glucose [Mass/Vol] 101 mg/dL [facility] Comment on above: Random Glucose Refer ence Range is dependent on time and content of last meal. Glucose of more than 200 mg/dL in a nonstressed, ambulatory subject supports the diagnosis of Diabetes Mellitus. Glucose Poct Glucometerson 0 08-28-2023 Glucose [Mass/Vol] 101 mg/dL Normal [facility] Comment on above: Result Comment: [place] om Glucose Reference Range is dependent on time and content of last meal. Glucose of more than 200 mg/dL in a nonstressed, ambulatory subject supports the diagnosis of Diabetes Mellitus. PERFORMED BY: [facility] [address] [place] [address] PATHOLOGIST 911 TELECOMMUNICATOR AMANDA ZAMORA M.D. Performed By: #### G LULS #### Point of Care testing , Commemt1 Glu2: Cleaned Meter Normal [facility] Comment on above: Result Comment: PERF ORMED BY: [facility] [place] [address] PATHOLOGIST 911 TELECOMMUNICATOR AMANDA ZAMORA M.D. Performed By: #### G LULS #### Point of Care testing , Glucose [Mass/Vol] 147 mg/dL Normal [facility] Comment on above: Result Comment: [place] Glucose Reference Range is dependent on time and content of last meal. Glucose of more than 200 mg/dL in a nonstressed, ambulatory subject supports the diagnosis of Diabetes Mellitus. Performed By: #### G LULS #### Point of Care testing , Von 08-28-2023 Specimen: [id number] Received: 08/28/23 Status: MANJIT Montiel Num: [id number] Spec Type: Surgical Subm Dr: Gerry Nelson DO Tissues: A Skin-Other than Cyst, tag, debridement or plastic repair (SCALP) Procedures: HE/7, Gross/Micro L4, Frozen Section, Froz Sec, Add/4, FS HE/10 Age/ Patient Sex Location Account Attending Physician Eugenio Crews 78/M [place] [id number] Gerry Nelson DO SPEC NUM: [id number] RECD: 08/28/23 STATUS: MANJIT MONTIEL NUM: [id number] ANJALI: 08/28/[address]: Gerry Nelson DO ENTERED: 08/28/[address] [facility] [address]: SPEC TYPE: Surgical DEPT: [...] A2 - Frozen section remnant?FSA 2 Specimen: [id number] Received: 08/28/23 Status: MANJIT Tiana Num: [id number] Spec Type: Surgical Subm Dr: Gerry Nelson, Tissues: A Skin-Other than Cyst, tag, debridement or plastic repair (SCALP) Procedures: , Gross/Micro L4, Frozen Section, Lu [place]oul[place], Add/, FS Patient: Eugenio Crews Cydney [id number] (Continued) Specimen: [id number] Received: 08/28/23 (Continued) Gross Description (Continued) Signed (signatur e on file) Mel Proctor MD 08/29/23 1356 Specimen: Received: 08/28/23 Status: MANJIT Montiel Num: [id number] Spec Type: Surgical Subm Dr: Gerry Nelson DO Tissues: A Skin-Other than Cyst, tag, debridement or plastic repair (SCALP) Procedures: HE/7, Gross/Micro L4, Frozen Section, Lu [place]oul[place], Add/4, FS /10 Patient: Eugenio Crews [id number] (Continued) Specimen: [id number] Received: 08/28/23 (Continued) Gross Description (Continued) A3 - Frozen section remnant?FSA 3 A4 - Frozen section remnant?FSA 4 A5 - Frozen section remnant?FSA 5 A6 - 12:00 half of specimen A7 - 6:00 half of specimen Intraoperative Diagnosis A. Recurrent squamous cell carcinoma of scalp: - Margins are negative for malignancy. Reported by Dr. Proctor at 2:05 PM 08/28/2023 CPT Codes 52128, 79095, 03210a2 Specimen: [id number] Received: 08/28/23 Status: MANJIT Montiel Num: [id number] Spec Type: Surgical Subm Dr: Gerry Nelson DO Tissues: A Skin-Other than Cyst, tag, debridement or plastic repair (SCALP) Procedures: HE/, Gross/Micro L4, Frozen Section, Lu Moul[place], Add/, FS Patient: Eugenio Crews [id number] (Continued) Signed (signatur e on file)___ (more content not included)... Normal [facility] No Panel InformationOrdered By: Gerry Nelson on 08-28-2023 Bedside Glucose Comment Glu2: cleaned meter [facility] Basic Metabolic Panelon 08-03 Anion gap [Moles/Vol] 12.7 mmol/L Normal 6.0-15.0 [facility] Comment on above: Performed By: #### B MP, CBC #### [facility] [address] [place] [address] [place] Calcium [Mass/Vol] 8.7 mg/dL Normal 8.6-10.3 [facility] Comment on above: Result Comment: PERF ORMED BY: [place] [address] PATHOLOGIST 911 TELECOMMUNICATOR AMANDA ZAMORA M.D. Performed By: #### B MP, CBC #### [facility] [address] [place] [address] [place] Chloride [Moles/Vol] 109 mmol/L High 98-107 [facility] Comment on above: Performed By: #### B MP, CBC #### [facility] [address] [place] [address] [place] CO2 [Moles/Vol] 22.0 mmol/L Normal 21.0-31.0 [facility] Comment on above: Performed By: #### B MP, CBC #### [facility] [address] [place] [address] [place] Creatinine [Mass/Vol] 2.90 mg/dL High 0.70-1.30 [facility] Comment on above: Performed By: #### B MP, CBC #### [facility] [address] [place] [address] [place] GFR/1.73 sq M.predicted MDRD (S/P/Bld) [Vol rate/Area] 21.738 mL/min/{1.73_m2} Normal [facility] Comment on above: Performed By: #### B MP, CBC #### [facility] [address] Glucose [Mass/Vol] 227 mg/dL High 70-100 [facility] Comment on above: Result Comment: [place] Glucose Reference Range is dependent on time and content of last meal. Glucose of more than 200 mg/dL in a nonstressed, ambulatory subject supports the diagnosis of Diabetes Mellitus. ADA recommended reference range Performed By: #### B MP, CBC #### [facility] [address] [place] [address] [place] Potassium [Moles/Vol] 4.7 mmol/L Normal 3.5-5.1 [facility] Comment on above: Performed By: #### B MP, CBC #### [facility] [address] [place] [address] [place] Sodium [Moles/Vol] 139 mmol/L Normal 136-145 [facility] Comment on above: Performed By: #### B MP, CBC #### [facility] [address] [place] [address] [place] Urea nitrogen [Mass/Vol] 43 mg/dL High 7-25 [facility] Comment on above: Performed By: #### B MP, CBC #### [facility] [address] [place] [address] [place] Basophils Auto (Bld) [#/Vol] Ordered By: Gerry Nelson on 08-22-2023 Basophils (Bld) [#/Vol] 0.0 10*3/uL 0.0-0.2 [facility] Basophils/100 WBC Auto (Bld) Ordered By: Gerry Nelson on 08-22-2023 Basophils/100 WBC (Bld) 0.4 % . [facility] Calcium [Mass/volume] in Ser um or PlasmaOrdered By: Gerry Nelson on 08-22-2023 Calcium [Mass/Vol] 8.7 mg/dL 8.6-10.3 [facility] Carbon dioxide, total [Moles /volume] in Serum or PlasmaOrdered By: Gerry Nelson on 08-22-2023 CO2 [Moles/Vol] 22.0 mmol/L 21.0-31.0 [facility] Chloride [Moles/volume] in S hai or PlasmaOrdered By: Gerry Nelson on 08-22-2023 Chloride [Moles/Vol] 109 mmol/L 98-107 [facility] Complete Blood Count Auto Di ffon 08-22-2023 Basophils (Bld) [#/Vol] 0.0 10*3/uL Normal 0.0-0.2 [facility] Comment on above: Result Comment: PERF ORMED BY: [place] [address] PATHOLOGIST 911 TELECOMMUNICATOR AMANDA ZAMORA M.D. Performed By: #### B MP, CBC #### [facility] [address] Basophils/100 WBC (Bld) 0.4 % Normal . [facility] Comment on above: Performed By: #### B MP, CBC #### [facility] [address] [place] [address] [place] Eosinophils (Bld) [#/Vol] 0.1 10*3/uL Normal 0.0-0.45 [facility] Comment on above: Performed By: #### B MP, CBC #### [facility] [address] [place] [address] [place] Eosinophils/100 WBC (Bld) 2.4 % Normal . [facility] Comment on above: Performed By: #### B MP, CBC #### [facility] [address] Erythrocyte distribution width (RBC) [Ratio] 12.7 % Normal 12.0-14.8 [facility] Comment on above: Performed By: #### B MP, CBC #### [facility] [address] Hematocrit (Bld) [Volume fraction] 33.6 % Low 38.8-50.0 [facility] Comment on above: Performed By: #### B MP, CBC #### [address] Hemoglobin (Bld) [Mass/Vol] 11.4 g/dL Low 13.0-17.0 [facility] Comment on above: Performed By: #### B MP, CBC #### [address] Lymphocytes (Bld) [#/Vol] 0.9 10*3/uL Low 1.00-4.8 [facility] Comment on above: Performed By: #### B MP, CBC #### [address] Lymphocytes/100 WBC (Bld) 14.3 % Normal . [facility] Comment on above: Performed By: #### B MP, CBC #### [address] MCH (RBC) [Entitic mass] 32.7 pg Normal 27.5-35.2 [facility] Comment on above: Performed By: #### B MP, CBC #### [facility] [address] MCV (RBC) [Entitic vol] 96.1 fL Normal 83.5-101 [facility] Comment on above: Performed By: #### B MP, CBC #### [facility] [address] Mean Corpuscular HGB Conc 34.0 g/dL Normal 32.5-35.6 [facility] Comment on above: Performed By: #### B MP, CBC #### [facility] [address] [place] [address] [place] Monocytes (Bld) [#/Vol] 0.5 10*3/uL Normal 0.0-0.8 [facility] Comment on above: Performed By: #### B MP, CBC #### [facility] [address] Monocytes/100 WBC (Bld) 7.4 % Normal . [facility] Comment on above: Performed By: #### B MP, CBC #### [facility] [address] Neutrophils (Bld) [#/Vol] 4.7 10*3/uL Normal 1.8-7.7 [facility] Comment on above: Performed By: #### B MP, CBC #### [address] Neutrophils/100 WBC (Bld) 75.5 % Normal . [facility] Comment on above: Performed By: #### B MP, CBC #### [address] NRBC% 0.0 /100{WBC} Normal 0-0.5 [facility] Comment on above: Performed By: #### B MP, CBC #### [facility] [address] Platelet mean volume (Bld) [Entitic vol] 7.2 fL Normal 6.6-10.1 [facility] Comment on above: Performed By: #### B MP, CBC #### [facility] [address] [place] [address] [place] Platelets (Bld) [#/Vol] 165 10*3/uL Normal 150-450 [facility] Comment on above: Performed By: #### B MP, CBC #### [place] [address] [place] RBC (Bld) [#/Vol] 3.50 10*6/uL Low 3.90-5.60 [facility] Comment on above: Performed By: #### B MP, CBC #### [facility] [address] WBC (Bld) [#/Vol] 6.2 10*3/uL Normal 4.1-10.5 [facility] Comment on above: Performed By: #### B MP, CBC #### [facility] [address] [place] [address] Creatinine [Mass/volume] in Serum or PlasmaOrdered By: Gerry Nelson on 08-22-2023 Creatinine [Mass/Vol] 2.90 mg/dL 0.70-1.30 [facility] ECG 12 lead ECGon 08-22-2023 ECG 12 lead ECG [facility] [place] [address] [place] [address] Electrocardiograph Report Signed Patient: Eugenio Crews MR#: [id number] : 1945 Acct:[id number] Age/Sex: 78 / M ADM Date: 08/22/23 Loc: Room: Type: [facility] CLI Attending Dr: Gerry Nelson DO Ordering Provider: [...] previous ECGs available Confirmed by Joni Marrero ([id number]) on 08/23/2023 11:21:57 AM Referred By: NOHEMI Electronically Signed By:Joni Marrero Transcribed By: MUS Signed By Joni Marrreo MD 08/23/23 1122 Normal [facility] Eosinophils Auto (Bld) [#/Vo l]Ordered By: Gerry Nelson on 08-22-2023 Eosinophils (Bld) [#/Vol] 0.1 10*3/uL 0.0-0.45 [facility] Eosinophils/100 WBC Auto (Bl d)Ordered By: Gerry Nelson on 08-22-2023 Eosinophils/100 WBC (Bld) 2.4 % . [facility] Erythrocyte distribution wid th Auto (RBC) [Ratio]Ordered By: Gerry Nelson on 08-22-2023 Erythrocyte distribution width (RBC) [Ratio] 12.7 % 12.0-14.8 [facility] Glucose [Mass/volume] in Ser um or PlasmaOrdered By: Gerry Nelson on 08-22-2023 Glucose [Mass/Vol] 227 mg/dL 70-100 [facility] Comment on above: ADA recommended refe rence rangeRandom Glucose Reference Range is dependent on time and content of last meal. Glucose of more than 200 mg/dL in a nonstressed, ambulatory subject supports the diagnosis of Diabetes Mellitus. Hematocrit Auto (Bld) [Volum e fraction]Ordered By: Gerry Nelson on 08-22-2023 Hematocrit (Bld) [Volume fraction] 33.6 % 38.8-50.0 [facility] Hemoglobin [Mass/volume] in BloodOrdered By: Gerry Nelson on 08-22-2023 Hemoglobin (Bld) [Mass/Vol] 11.4 g/dL 13.0-17.0 [facility] Leukocytes [#/volume] correc yoseph for nucleated erythrocytes in Blood by Automated counOrdered By: Gerry Nelson on 08-22-2023 WBC corrected for nucl RBC Auto (Bld) [#/Vol] 6.2 10*3/uL 4.1-10.5 [facility] Lymphocytes Auto (Bld) [#/Vo l]Ordered By: Gerry Nelson on 08-22-2023 Lymphocytes (Bld) [#/Vol] 0.9 10*3/uL 1.00-4.8 [facility] Lymphocytes/100 WBC Auto (Bl d)Ordered By: Gerry Nelson on 08-22-2023 Lymphocytes/100 WBC (Bld) 14.3 % . [facility] MCH Auto (RBC) [Entitic mass ]Ordered By: Gerry Nelson on 08-22-2023 MCH (RBC) [Entitic mass] 32.7 pg 27.5-35.2 [facility] MCHC Auto (RBC) [Mass/Vol]Or dered By: Gerry Nelson on 08-22-2023 MCHC (RBC) [Mass/Vol] 34.0 g/dL 32.5-35.6 [facility] MCV Auto (RBC) [Entitic vol] Ordered By: Gerry Nelson on 08-22-2023 MCV (RBC) [Entitic vol] 96.1 fL 83.5-101 [facility] Monocytes Auto (Bld) [#/Vol] Ordered By: Gerry Nelson on 08-22-2023 Monocytes (Bld) [#/Vol] 0.5 10*3/uL 0.0-0.8 [facility] Monocytes/100 WBC Auto (Bld) Ordered By: Gerry Nelson on 08-22-2023 Monocytes/100 WBC (Bld) 7.4 % . [facility] Neutrophils Auto (Bld) [#/Vo l]Ordered By: Gerry Nelson on 08-22-2023 Neutrophils (Bld) [#/Vol] 4.7 10*3/uL 1.8-7.7 [facility] Neutrophils/100 WBC Auto (Bl d)Ordered By: Gerry Nelson on 08-22-2023 Neutrophils/100 WBC (Bld) 75.5 % . [facility] No Panel InformationOrdered By: Gerry Nelson on 08-22-2023 Estimated GFR (CKD-EPI) 21.738 mL/Min [facility] Creatinine Clearance (Chem N/A [facility] Nucleated erythrocytes [Pres ence] in Blood by Automated countOrdered By: Gerry Nelson on 08-22-2023 Nucleated RBC Auto Ql (Bld) 0.0 /100{WBC} 0-0.5 [facility] Platelet mean volume Auto (B ld) [Entitic vol]Ordered By: Gerry Nelson on 08-22-2023 Platelet mean volume (Bld) [Entitic vol] 7.2 fL 6.6-10.1 [facility] Platelets Auto (Bld) [#/Vol] Ordered By: Gerry Nelson on 08-22-2023 Platelets (Bld) [#/Vol] 165 10*3/uL 150-450 [facility] Potassium [Moles/volume] in Serum or PlasmaOrdered By: Gerry Nelson on 08-22-2023 Potassium [Moles/Vol] 4.7 mmol/L 3.5-5.1 [facility] RBC Auto (Bld) [#/Vol]Ordere d By: Gerry Nelson on 08-22-2023 RBC (Bld) [#/Vol] 3.50 10*6/uL 3.90-5.60 [facility] Serum or plasma anion gap de terminationOrdered By: Gerry Nelson on 08-22-2023 Anion gap [Moles/Vol] 12.7 mmol/L 6.0-15.0 [facility] Sodium [Moles/volume] in Ser um or PlasmaOrdered By: Gerry Nelson on 08-22-2023 Sodium [Moles/Vol] 139 mmol/L 136-145 [facility] Urea nitrogen [Mass/volume] in Serum or PlasmaOrdered By: Gerry Nelson on 08-22-2023 Urea nitrogen [Mass/Vol] 43 mg/dL 7-25 [facility] WBC Auto (Bld) [#/Vol]Ordere d By: Gerry Nelson on 08-22-2023 WBC (Bld) [#/Vol] 6.2 10*3/uL 4.1-10.5 [facility] Glucose mean value [Mass/vol ume] in Blood Estimated from glycated hemoglobinon 08-06-2023 Average glucose Estimated from glycated hemoglobin (Bld) [Mass/Vol] 163 mg/dL [facility] - Hematology and Cell countson 08-06-2023 HbA1c (Bld) [Mass fraction] 7.3 % 4.5-6.2 [facility] Comment on above: ADA RECOMMENDED LIMI T 4.0 - 6.0ADA THERAPEUTIC TARGET < 7.0ACTION SUGGESTED> 7.0 CBC AUTO DIFFon 04-05-2022 BASO # 0.0 103/ul Normal 0.0-0.1 [facility] Comment on above: Performed By: #### C BC #### [facility] [address] [place] [address] Dr. Dave Duffy Basophils/100 WBC (Bld) 0.2 % Normal 0.2-2.0 [facility] Comment on above: Performed By: #### C BC #### [facility] [address] [place] [address] Dr. Dave Duffy EO # 0.2 103/ul Normal 0.0-0.7 [facility] Comment on above: Performed By: #### C BC #### [facility] [address] [place] [address] Dr. Dave Duffy Eosinophils/100 WBC (Bld) 2.5 % Normal 0.9-7.0 [facility] Comment on above: Performed By: #### C BC #### [facility] [address] [place] [address] Dr. Dave Duffy Erythrocyte distribution width (RBC) [Ratio] 12.3 % Normal 11.0-15.0 [facility] Comment on above: Performed By: #### C BC #### [facility] [address] [place] [address] Dr. Dave Duffy Hematocrit (Bld) [Volume fraction] 32.8 % Critically low 42.0-54.0 [facility] Comment on above: Performed By: #### C BC #### [facility] [address] [place] [address] Dr. Dave Duffy Hemoglobin (Bld) [Mass/Vol] 11.4 g/dL Critically low 14.0-18.0 [facility] Comment on above: Performed By: #### C BC #### [facility] [address] [place] [address] Dr. Dave Duffy IG # 0.03 10e3/ul Normal 0.00-0.03 [facility] Comment on above: Performed By: #### C BC #### [facility] [address] [place] [address] Dr. Dave Duffy IG % 0.5 % Normal 0.0-0.5 [facility] Comment on above: Performed By: #### C BC #### [facility] [address] [place] [address] Dr. Dave Duffy LYMPH # 1.2 103/ul Normal 1.2-3.8 [facility] Comment on above: Performed By: #### C BC #### [facility] [address] [place] [address] Dr. Dave Duffy Lymphocytes/100 WBC (Bld) 18.9 % Critically low 20.5-60.0 [facility] Comment on above: Performed By: #### C BC #### [facility] [address] [place] [address] Dr. Dave Duffy MANUAL DIFF REQ NO Normal [facility] Comment on above: Performed By: #### C BC #### [facility] [address] [place] [address] Dr. Dave Duffy MCH (RBC) [Entitic mass] 32.8 pg Normal 25.9-34.0 [facility] Comment on above: Performed By: #### C BC #### [facility] [address] [place] [address] Dr. Dave Duffy MCHC (RBC) [Mass/Vol] 34.8 g/dL Normal 29.9-35.2 [facility] Comment on above: Performed By: #### C BC #### [facility] [address] [place] [address] Dr. Dave Duffy MCV (RBC) [Entitic vol] 94.3 fL Critically high 80.0-94 .0 [facility] Comment on above: Performed By: #### C BC #### [facility] [address] [place] [address] Dr. Dave Duffy MONO # 0.5 103/ul Normal 0.3-0.8 [facility] Comment on above: Performed By: #### C BC #### [facility] [address] [place] [address] Dr. Dave Duffy Monocytes/100 WBC (Bld) 8.9 % Normal 1.7-12.0 [facility] Comment on above: Performed By: #### C BC #### [facility] [address] [place] [address] Dr. Dave Duffy NEUT # 4.2 103/ul Normal 1.4-6.5 [facility] Comment on above: Performed By: #### C BC #### [facility] [address] [address] [address] Dave Duffy Neutrophils/100 WBC (Bld) 69.0 % Normal 43.0-75.0 [facility] Comment on above: Performed By: #### C BC #### [facility] [address] [address] [address] Dave Duffy Platelet mean volume (Bld) [Entitic vol] 8.7 fL Critically low 9.5-13.5 [facility] Comment on above: Performed By: #### C BC #### [facility] [address] [place] [address] Dr. Dave Duffy PLT 166 103/ul Normal 150-450 [facility] Comment on above: Performed By: #### C BC #### [facility] [address] [place] [address] Dr. Dave Duffy RBC 3.48 106/ul Critically low 4.70-6.10 [facility] Comment on above: Performed By: #### C BC #### [facility] [address] [place] [address] Dr. Dave Duffy WBC 6.1 103/ul Normal 4.0-11.0 [facility] Comment on above: Performed By: #### C BC #### [facility] [address] [place] [address] Dr. Dave Duffy LIPID PROFILEon 04-05-2022 CHOL-HDL RATIO NORM SEE BELOW Normal [facility] Comment on above: Result Comment: 3.3 - 4.4 LOW RISK 4.4 - 7.1 AVERAGE RISK 7.1 - 11.0 MODERATE RISK >11.0 HIGH RISK Performed By: #### C MP, LIPID #### [facility] [address] [place] [address] Dr. Dave Duffy Cholesterol [Mass/Vol] 106 mg/dL Normal <=200 [facility] Comment on above: Performed By: #### C MP, LIPID #### [facility] [address] [place] [address] Dr. Dave Duffy Cholesterol in HDL [Mass/Vol] 36 mg/dL Critically low 40-60 [facility] Comment on above: Performed By: #### C MP, LIPID #### [facility] [address] [address] [address] Dave Duffy Cholesterol in LDL [Mass/Vol] 43.4 mg/dL Normal [facility] Comment on above: Performed By: #### C MP, LIPID #### [facility] [address] [address] [address] Dave Duffy Cholesterol.total/Choles terol in HDL [Mass ratio] 2.9 {ratio} Normal [facility] Comment on above: Performed By: #### C MP, LIPID #### [facility] [address] [place] [address] Dr. Dave Duffy HDL NORMAL > or = 60 mg/dl - LOW CARDIOVASCULAR RISK <40 mg/dl - HIGH CARDIOVASCULAR RISK Normal [facility] Comment on above: Performed By: #### C MP, LIPID #### [facility] [address] [place] [address] Dr. Dave Duffy LDL CALC NORMAL SEE BELOW Normal [facility] Comment on above: Result Comment: <100 mg/dl OPTIMAL 100 - 129 mg/dl NEAR OR ABOVE OPTIMAL 130 - 159 mg/dl BORDERLINE HIGH 160 - 189 mg/dl HIGH >190 mg/dl VERY HIGH Performed By: #### C MP, LIPID #### [facility] [address] [place] [address] Dr. Dave Duffy Triglyceride [Mass/Vol] 133 mg/dL Normal <=150 [facility] Comment on above: Performed By: #### C MP, LIPID #### [facility] [address] [place] [address] Dr. Dave Duffy VLDL CALC 26.6 mg/dL Normal [facility] Comment on above: Performed By: #### C MP, LIPID #### [facility] [address] [address] [address] Dave Duffy MICROALBUMIN, RAND URon 11-0 mALB 19.6 mg/L Normal <=30.0 [facility] Comment on above: Performed By: #### M ALBR #### [facility] [address] [address] [address] Dave Duffy PROF 14(COMP METB)on 022 Albumin [Mass/Vol] 3.6 g/dL Normal 3.4-5.0 [facility] Comment on above: Performed By: #### C MP, LIPID #### [facility] [address] [place] [address] Dr. Dave Duffy Albumin/Globulin [Mass ratio] 1.2 {ratio} Normal [facility] Comment on above: Performed By: #### C MP, LIPID #### [facility] [address] [place] [address] Dr. Dave Duffy ALP [Catalytic activity/Vol] 102 U/L Normal 46-116 [facility] Comment on above: Performed By: #### C MP, LIPID #### [facility] [address] [place] [address] Dr. Dave Duffy ALT [Catalytic activity/Vol] 22 U/L Normal 16-63 [facility] Comment on above: Performed By: #### C MP, LIPID #### [facility] [address] [place] [address] Dr. Dave Duffy Anion gap [Moles/Vol] 10.8 mmol/L Normal [facility] [place] [facility] Comment on above: Performed By: #### C MP, LIPID #### [facility] [address] [place] [address] Dr. Dave Duffy AST [Catalytic activity/Vol] 13 U/L Critically low 15-37 [facility] Comment on above: Performed By: #### C MP, LIPID #### [facility] [address] [address] [address] Dave Duffy Bilirubin [Mass/Vol] 0.5 mg/dL Normal 0.2-1.0 [facility] Comment on above: Performed By: #### C MP, LIPID #### [facility] [address] [address] [address] Dave Duffy Calcium [Mass/Vol] 8.6 mg/dL Normal 8.5-10.1 [facility] Comment on above: Performed By: #### C MP, LIPID #### [facility] [address] [place] [address] Dr. Dave Duffy Chloride [Moles/Vol] 107 mmol/L Normal 98-107 [facility] Comment on above: Performed By: #### C MP, LIPID #### [facility] [address] [place] [address] Dr. Dave Duffy CO2 [Moles/Vol] 25.7 mmol/L Normal 21.0-32.0 [facility] Comment on above: Performed By: #### C MP, LIPID #### [facility] [address] [place] [address] Dr. Dave Duffy Creatinine [Mass/Vol] 2.99 mg/dL Critically high 0.70-1.30 [facility] Comment on above: Performed By: #### C MP, LIPID #### [facility] [address] [place] [address] Dr. Dave Duffy EGFR-AF THAI 25 mL/min/1.73m2 Critically low >=60 [facility] Comment on above: Performed By: #### C MP, LIPID #### [facility] [address] [place] [address] Dr. Dave Duffy EGFR-NON AF THAI 21 mL/min/1.73m2 Critically low >=60 [facility] Comment on above: Performed By: #### C MP, LIPID #### [facility] [address] [place] [address] Dr. Dave Duffy Globulin (S) [Mass/Vol] 3.1 g/dL Normal [facility] Comment on above: Performed By: #### C MP, LIPID #### [facility] [address] [place] [address] Dr. Dave Duffy Glucose [Mass/Vol] 106 mg/dL Normal 74-106 [facility] Comment on above: Performed By: #### C MP, LIPID #### [facility] [address] [place] [address] Dr. Dave Duffy Potassium [Moles/Vol] 4.5 mmol/L Normal 3.5-5.1 [facility] Comment on above: Performed By: #### C MP, LIPID #### [facility] [address] [place] [address] Dr. Dave Duffy Protein [Mass/Vol] 6.7 g/dL Normal 6.4-8.2 [facility] Comment on above: Performed By: #### C MP, LIPID #### [facility] [address] [place] [address] Dr. Dave Duffy Sodium [Moles/Vol] 139 mmol/L Normal 136-145 [facility] Comment on above: Performed By: #### C MP, LIPID #### [facility] [address] [place] [address] Dr. Dave Duffy Urea nitrogen [Mass/Vol] 43.0 mg/dL Critically high 7.0-18 .0 [facility] Comment on above: Performed By: #### C MP, LIPID #### [facility] [address] [place] [address] Dr. Dave Duffy Urea nitrogen/Creatinine [Mass ratio] 14.4 mg/mg Normal [facility] Comment on above: Performed By: #### C MP, LIPID #### [facility] [address] [place] [address] Dr. Dave Duffy XR FLUORO < 1 HRon 2 XR [...] by: ALONZO MADRIGAL Date: 2022-03-05 11:26 Normal [facility] 02-24-2022 CNPN Telephone (HEMASA) ---- EUGENIO CREWS ([id number]) 1945 M TRN Date Time Provider Department [...] Encounter Status:Closed by ROSELYN PAGE on 02/24/[address] [facility] CNPNon 02-23-2022 CNPN Telephone (HEMTSA) ---- EUGENIO CREWS ([id number]) 1945 M TRN Date Time Provider Department [...] Encounter Status:Closed by EAMON BUSTAMANTE on 03/02/[address] [facility] EUGENIO CREWS ([id number]) 1945 M TRN Date Time Provider Department [...] accessed 2 days in a row at [facility] and there was swelling above port site. Dr. Reyes thought perhaps the nurse missed as they use a smaller port at [place] which is where he had it placed. Informed that if we have swelling while patient is here, we would not proceed. verbalized understanding. PSS: please call patient/ to schedule on infusion schedule for possible 2 doses of activase. Jamia: Can you get an xray that was taken of the port at [facility] recently. ( states they did one) [...] Diagnosis:Obstructi on of central line, initial encounter ([facility]) [T82.594A] Prescriptions as of 02/21/2022 [...] Status:Closed by AILEEN JENKINS on 02/21/22 Normal [facility] GLYCOHEMOGLOBIN A1Con 2021 ADA RECOMMENDATION SEE BELOW Normal [facility] Comment on above: Result Comment: ADA RECOMMENDED LIMIT 4.0 - 6.0 ADA THERAPEUTIC TARGET < 7.0 ACTION SUGGESTED > 7.0 Performed By: #### D ATA1C #### [facility] [address] [address] [address] Dave Duffy Glucose [Mass/Vol] 166 mg/dL Normal [facility] Comment on above: Performed By: #### D ATA1C #### [facility] [address] [place], [place] [address] Dr. Dave Duffy HbA1c (Bld) [Mass fraction] 7.4 % Critically high 4.5-6.2 [facility] Comment on above: Performed By: #### D ATA1C #### [facility] [address] [place], [place] [address] Dr. Dave Duffy XR CHEST 2 Von [...] by: ALONZO MADRIGAL Date: 2022-02-07 12:00 Normal [facility] POINT OF CARE GLUCOSEon 11-02 Glucose [Mass/Vol] 163 mg/dL Critically high 74-106 [facility] Comment on above: Performed By: #### P OCGLUC #### [facility] [address] [place], [place] [address] Dr. Dave Zadii 04-26-2021 CNPN Telephone (HEMASA) ---- EUGENIO CREWS ([id number]) 1945 M TRN Date Time Provider Department 04/26/21 ELIA BAL During your visit today, we recorded the following information about you: Elia Bal RN 04/26/2021 2:52 PM Signed Received call from [facility] at Dr Barton's office stating they needed to know what pt's port is being flushed with. [facility] informed pt is getting 20cc NS followed by 5cc Heparin. [facility] verbalizes understanding and denies further needs at this time. Elia Bal RN Allergies As of Date: 04/26/2021 Noted Allergy Reaction PIPERACILLIN-TAZOBA CTAM 09/14/2009 2 - Rash Comments: Pt developed severe rash after zosyn initiated KETOROLAC 09/23/2020 16 - Unknown Comments: kidney killer Date Reviewed: 03/25/2021 Reviewed by: Kendall Honeycutt APRN.GRANITE FABRICATOR - Fully Assessed Reason for Visit: Medication Question [8203] Prescriptions as of 04/26/2021 - atorvastatin (LIPITOR) [...] Encounter Status:Closed by [facility] BAL [facility] Office (HEMASA) ---- EUGENIO CREWS ([id number]) 1945 M TRN Date Time Provider Department 03/23/21 1:30 PM KENDALL HONEYCUTT During your visit today, we recorded the following information about you: Temperature Pulse Respiration Blood pressure 97.4 degrees 81/minute 16/minute 141/54 Weight Height 105.9 kg 1.854 m Kendall Honeycutt APRN.CNP 03/25/2021 12:42 PM Signed Patient: Eugenio Crews Location: [facility] : 1945 Attending Physician: Dr. Kings Johns [...] colonoscopy in September with Dr. Reyes in [place]. He denies fevers, chills, night sweats and [...] contact K (more content not included)... Normal [facility] Comp Metabolic Panelon 03-23 Albumin [Mass/Vol] 3.9 g/dL Normal 3.9-4.9 [facility] ALP [Catalytic activity/Vol] 126 U/L High 38-113 [facility] ALT [Catalytic activity/Vol] 13 U/L Normal 10-54 [facility] Anion gap [Moles/Vol] 7 mmol/L Low 9-18 [facility] AST [Catalytic activity/Vol] 12 U/L Low 14-40 [facility] Bilirubin [Mass/Vol] 0.3 mg/dL Normal 0.2-1.3 [facility] Calcium [Mass/Vol] 8.9 mg/dL Normal 8.5-10.2 [facility] Chloride [Moles/Vol] 107 mmol/L High 97-105 [facility] CO2 [Moles/Vol] 20 mmol/L Low 22-30 [facility] Creatinine [Mass/Vol] 2.54 mg/dL High 0.73-1.22 [facility] eGFR- Amer. 30 Normal [facility] eGFR-All Other Races 25 . Normal [facility] Comment on above: Result Comment: eGFR [...] GFR. Glucose [Mass/Vol] 169 mg/dL High 74-99 [facility] Comment on above: Result Comment: The [place] Diabetes Association (ADA) provides guidance for cutoff [...] Standards of Medical Care in Diabetes 2016, [place] [employer] Association. Diabetes Care. 2016.39(Suppl 1). Potassium [Moles/Vol] 4.7 mmol/L Normal 3.7-5.1 [facility] Protein [Mass/Vol] 6.2 g/dL Low 6.3-8.0 [facility] Sodium [Moles/Vol] 134 mmol/L Low 136-144 [facility] Urea nitrogen [Mass/Vol] 29 mg/dL High 9-24 [facility] EPOon 03-23-2021 EPO 18.4 mIU/mL Normal 2.6-18.5 [facility] Comment on above: Result Comment: Test analyzed by the Berny DxI method. Performed By: #### E PO #### [facility] [address] [place], [place] [address] Fecal Occult Bld Tston 03-23 Immuno FOB Negative Normal Negative [facility] Comment on above: Result Comment: This test was developed and its performance characteristics determined by [facility] ( [facility]). It has not been cleared or approved by the FDA. [facility] is regulated under CLIA as qualified to perform high complexity testing. This test is used for clinical purposes. It should not be regarded as investigational or for research. Performed By: #### I FOBT #### [facility] [address] [address] Ferritinon 03-23-2021 Ferritin [Mass/Vol] 294.0 ng/mL Normal 30.3-565.7 [facility] Comment on above: Performed By: #### E PO #### [address] [address] Folate, Serumon 03-23-2021 Folate [Mass/Vol] 6.6 ng/mL Normal >4.7 [facility] Comment on above: Performed By: #### E PO #### [address] [address] Iron and TIBCon 03-23-2021 Iron [Mass/Vol] 70 ug/dL Normal 41-186 [facility] Comment on above: Performed By: #### E PO #### [address] [address] TIBC 223 ug/dL Low 232-386 [facility] Comment on above: Performed By: #### E PO #### [address] [address] Transferrin Saturatn 31 % Normal 15-57 [facility] Comment on above: Performed By: #### E PO #### [address] [address] LDon 03-23-2021 LD 192 U/L Normal 135-225 [facility] Comment on above: Performed By: #### E PO #### [address] [address] Protein Electrophor.on 03-23 Albumin [Mass/Vol] 3.24 g/dL Low 3.37-4.23 [facility] Comment on above: Performed By: #### F ERR, B12, SEPG, IRON, TSH, TRANSF, SERFOL ####[facility] [phone] Alpha 1 Globulin 0.28 gm/dL Normal 0.18-0.31 [facility] [place] Comment on above: Performed By: #### F ERR, B12, SEPG, IRON, TSH, TRANSF, SERFOL ####[place] [address] [address] [phone] Alpha 2 Globulin 0.75 gm/dL Normal 0.52-0.97 [facility] [place] Comment on above: Performed By: #### F ERR, B12, SEPG, IRON, TSH, TRANSF, SERFOL ####[place] [address] [address] [phone] Beta Globulin 0.78 gm/dL Low 0.84-1.36 [facility] Comment on above: Performed By: #### F ERR, B12, SEPG, IRON, TSH, TRANSF, SERFOL ####[place] [address] [address] [phone] Gamma Globulin 0.65 gm/dL Low 0.70-1.44 [facility] Comment on above: Performed By: #### F ERR, B12, SEPG, IRON, TSH, TRANSF, SERFOL ####[place] [address] [address] [phone] Interpretation SEE COMMENT Normal [facility] Comment on above: Result Comment: No d efinitive M protein is identified on protein electrophoresis. Hypogammaglobulinemia is present, which can be seen in the setting of monoclonal gammopathy. If clinically indicated, monoclonal protein analysis and serum free light chain analysis are suggested to evaluate further for monoclonal gammopathy. Performed By: #### F ERR, B12, SEPG, IRON, TSH, TRANSF, SERFOL ####[facility] [phone] M Protein Location N/A Normal [facility] Comment on above: Performed By: #### F ERR, B12, SEPG, IRON, TSH, TRANSF, SERFOL ####[facility] [place], [place] [phone] M Petar Concentratn 0.00 gm/dL Normal 0.00 [facility] Comment on above: Performed By: #### F ERR, B12, SEPG, IRON, TSH, TRANSF, SERFOL ####[facility] [place], [place] [phone] Protein [Mass/Vol] 5.7 g/dL Low 6.3-8.0 [facility] Comment on above: Performed By: #### F ERR, B12, SEPG, IRON, TSH, TRANSF, SERFOL ####[id number] [place], [place] [phone] SPE Staff Review Reviewed by Enrrique Chowdhury M.D., PhD ([id number]) Normal [facility] Comment on above: Performed By: #### F ERR, B12, SEPG, IRON, TSH, TRANSF, SERFOL ####[id number] [place], [place] [phone] Remote CBCDIF (for [facility] use o nly)on 03-23-2021 Abs Baso <0.03 Normal <0.11 [facility] Abs [place] 0.37 k/uL Normal <0.87 [facility] Abs Neut 3.53 k/uL Normal 1.45-7.50 [facility] Absolute nRBC <0.01 Normal <0.01 [facility] Basophils/100 WBC (Bld) 0.4 % Normal C [facility] DTYPE Auto Diff Normal [facility] Eosinophils (Bld) [#/Vol] 0.09 10*3/uL Normal <0.46 [facility] Eosinophils/100 WBC (Bld) 1.7 % Normal [facility] Erythrocyte distribution width (RBC) [Ratio] 13.4 % Normal 11.5-15.0 [facility] Hematocrit (Bld) [Volume fraction] 29.3 % Low 39.0-51.0 [facility] Hemoglobin (Bld) [Mass/Vol] 10.0 g/dL Low 13.0-17.0 [facility] Lymphocytes (Bld) [#/Vol] 1.17 10*3/uL Normal 1.00-4.00 [facility] Lymphocytes/100 WBC (Bld) 22.5 % Normal [facility] MCH 31.7 pG Normal 26.0-34.0 [facility] MCHC (RBC) [Mass/Vol] 34.1 g/dL Normal 30.5-36.0 [facility] MCV (RBC) [Entitic vol] 93.0 fL Normal 80.0-100.0 C [facility] Monocytes/100 WBC (Bld) 7.1 % Normal C [facility] Neutrophils/100 WBC (Bld) 68.3 % Normal [facility] NRBCs 0.0 /100 WBC Normal 0 [facility] Platelet mean volume (Bld) [Entitic vol] 8.5 fL Low 9.0-12.7 [facility] Platelets (Bld) [#/Vol] 162 10*3/uL Normal 150-400 [facility] RBC (Bld) [#/Vol] 3.15 10*6/uL Low 4.20-6.00 [facility] WBC (Bld) [#/Vol] 5.20 10*3/uL Normal 3.70-11.00 [facility] Reticulocyteon 03-23-2021 Abs Retic 0.044 M/uL Normal 0.0180-0.1000 [facility] Comment on above: Performed By: #### E PO #### [facility] [address] [place], [place] [address] Retic% 1.4 % Normal 0.4-2.0 [facility] Comment on above: Performed By: #### E PO #### [facility] [address] [place], [place] [address] TSHon 03-23-2021 TSH Qn 2.350 m[IU]/L Normal 0.270-4.200 [facility] Comment on above: Performed By: #### E PO #### [facility] [address] [place], [place] [phone] Transferrinon 03-23-2021 Transferrin [Mass/Vol] 181 mg/dL Low 200-360 [facility] Comment on above: Performed By: #### E PO #### [facility] [address] [place], [place] [phone] Vitamin B12on 03-23-2021 Cobalamin (Vitamin B12) [Mass/Vol] 654 pg/mL Normal 232-1245 [facility] Comment on above: Performed By: #### E PO #### [facility] [address] [place], [place] [phone] Vital Signs Date Time Vital Sign Value Performing Clinician Facility 03-31-2024 08:30-0400 Body height 182.88 cm [facility] 03-31-2024 08:30-0400 Body mass index (BMI) [Ratio] 30.4 kg/m2 [facility] 03-31-2024 08:30-0400 Body weight 101.66 kg [facility] 03-31-2024 08:30-0400 Diastolic blood pressure 81 mm[Hg] [facility] 03-31-2024 08:30-0400 Heart rate 80 /min [facility] 03-31-2024 08:30-0400 Respiratory rate 12 /min [facility] 03-31-2024 08:30-0400 Systolic blood pressure 140 mm[Hg] [facility] 11-28-2023 08:37-0400 Body height 182.88 cm [facility] 11-28-2023 08:37-0400 Body mass index (BMI) [Ratio] 29.6 kg/m2 [facility] 11-28-2023 08:37-0400 Body weight 99.05 kg [facility] 11-28-2023 08:37-0400 Diastolic blood pressure 80 mm[Hg] [facility] 11-28-2023 08:37-0400 Heart rate 75 /min [facility] 11-28-2023 08:37-0400 Respiratory rate 12 /min [facility] 11-28-2023 08:37-0400 Systolic blood pressure 139 mm[Hg] [facility] 11-02-2023 11:53-0400 Body height 182.88 cm [facility] 11-02-2023 11:53-0400 Body mass index (BMI) [Ratio] 31.1 kg/m2 [facility] 11-02-2023 11:53-0400 Body weight 104.01 kg [facility] 11-02-2023 11:53-0400 Diastolic blood pressure 74 mm[Hg] [facility] 11-02-2023 11:53-0400 Heart rate 60 /min [facility] 11-02-2023 11:53-0400 Respiratory rate 12 /min [facility] 11-02-2023 11:53-0400 Systolic blood pressure 110 mm[Hg] [facility] 08-28-2023 15:35-0400 Diastolic blood pressure 63 mm[Hg] DO Gerry Ball Work Phone: [facility] 08-28-2023 15:35-0400 Heart rate 61 /min DO Gerry Ball Work Phone: [facility] 08-28-2023 15:35-0400 Respiratory rate 14 /min DO Gerry Ball Work Phone: [facility] 08-28-2023 15:35-0400 SaO2% (BldA) [Mass fraction] 97 % DO Gerry Ball Work Phone: [facility] 08-28-2023 15:35-0400 Systolic blood pressure 102 mm[Hg] DO Gerry Ball Work Phone: [facility] 08-28-2023 14:48-0400 Body temperature 98 [degF] DO Gerry Ball Work Phone: [facility] 08-28-2023 14:23-0400 Inhaled oxygen flow rate 8 L/min DO Gerry Ball Work Phone: [facility] 08-28-2023 13:02-0400 Body mass index (BMI) [Ratio] 30.4 kg/m2 DO Gerry Ball Work Phone: [facility] 08-28-2023 12:21-0400 Body height 187.96 cm DO Gerry Ball Work Phone: [facility] 08-28-2023 12:21-0400 Body weight 107.5 kg DO Gerry Ball Work Phone: [facility] 07-30-2023 08:30-0500 Body height 185.42 cm [facility] 07-30-2023 08:30-0500 Body mass index (BMI) [Ratio] 31.6 kg/m2 [facility] 07-30-2023 08:30-0500 Body weight 108.86 kg [facility] 07-30-2023 08:30-0500 Diastolic blood pressure 75 mm[Hg] [facility] 07-30-2023 08:30-0500 Heart rate 80 /min [facility] 07-30-2023 08:30-0500 Respiratory rate 16 /min [facility] 07-30-2023 08:30-0500 Systolic blood pressure 157 mm[Hg] [facility] 03-27-2023 08:30-0400 Body height 185.42 cm Gerry Ball Other [facility] Other 03-27-2023 08:30-0400 Body mass index (BMI) [Ratio] 30.13 kg/m2 Gerry Ball Other [facility] Other 03-27-2023 08:30-0400 Body weight 103.6 kg Gerry Ball Other [facility] Other 03-27-2023 08:30-0400 Diastolic blood pressure 76 mm[Hg] Gerry Ball Other [facility] Other 03-27-2023 08:30-0400 Respiratory rate 12 /min Gerry Ball Other [facility] Other 03-27-2023 08:30-0400 Systolic blood pressure 139 mm[Hg] Gerry Barton Other [facility] Other 04-03-2022 12:40-0400 Blood Pressure Location Jenaro HANSEN [facility] 04-03-2022 12:40-0400 Diastolic blood pressure 82 mm[Hg] Jenaro HANSEN [facility] 04-03-2022 12:40-0400 Heart rate 76 /min Jenaro HANSEN [facility] 04-03-2022 12:40-0400 Respiratory rate 16 /min Jenaro HANSEN [facility] 04-03-2022 12:40-0400 Systolic blood pressure 140 mm[Hg] Jenaro HANSEN [facility] Encounters Encounter Date Encounter Type Care Provider Facility Start: 04-14-2024 ambulatory Jenaro HANSEN Facili ty:[facility] Start: 03-31-2024 End: 03-31-2024 ambulatory [facility] Work Phone: Start: 03-31-2024 End: 03-31-2024 [facility] Start: 03-29-2024 Patient encounter procedure [facility] Start: 03-21-2024 End: 03-21-2024 Bamboo flowsheet Ashley Carpio COPY CHIEF-GRANITE FABRICATOR Work Phone: [facility] Start: 03-21-2024 End: 03-21-2024 Bamboo flowsheet Ashley Bergmaner COPY CHIEF-GRANITE FABRICATOR Work Phone: [facility] Start: 03-21-2024 End: 03-21-2024 Office outpatient visit 15 minutes Ashley Carpio COPY CHIEF-GRANITE FABRICATOR Work Phone: [facility] Comment on above: Melanocytic nevus of right upper extremity; Melanocytic nevus of left upper extremity; Seborrheic keratosis; Actinic keratosis; Capillary angioma; History of SCC (squamous cell carcinoma) of skin Start: 03-21-2024 End: 03-21-2024 ambulatory ASHLEY CARPIO Not Available Start: 02-05-2024 End: 02-05-2024 ambulatory [facility] Work Phone: Start: 02-05-2024 End: 02-05-2024 Patient encounter procedure [facility] Work Phone: Start: 12-31-2023 End: 12-31-2023 ambulatory [facility] Work Phone: Start: 12-31-2023 End: 12-31-2023 Patient encounter procedure [facility] Work Phone: Start: 12-19-2023 Non-patient / Non-visit [facility] Physician [facility] Work Phone: Start: 11-28-2023 End: 11-28-2023 ambulatory [facility] Work Phone: Start: 11-28-2023 End: 11-28-2023 Patient encounter procedure [facility] Work Phone: Start: 11-02-2023 End: 11-02-2023 ambulatory DO Gerry Barton [facility] Work Phone: Start: 11-02-2023 End: 11-02-2023 Patient encounter procedure DO Gerry Ball Work Phone: [facility] Work Phone: Start: 10-31-2023 End: 10-31-2023 ambulatory GERRY W MURCEK Not Available Start: 09-19-2023 End: 09-19-2023 ambulatory GERRY W PAULINAK Not Available Start: 09-12-2023 End: 09-12-2023 ambulatory DO Gerry Barton Work Phone: [facility] Work Phone: Start: 09-12-2023 End: 09-12-2023 Patient encounter procedure DO Gerry Barton Work Phone: [facility] Work Phone: Start: 09-05-2023 End: 09-05-2023 ambulatory GERRY W PAULINAK Not Available Start: 08-29-2023 End: 08-29-2023 ambulatory GERRY W PAULINAK Not Available Start: 08-28-2023 End: 08-28-2023 ambulatory Gerry Nelson Facility:[facility] Start: 08-28-2023 End: 08-28-2023 Admission to same day surgery center DO Gerry Barton Work Phone: [facility] Start: 08-28-2023 End: 08-28-2023 ambulatory DO Gerry Barton Work Phone: [facility] Work Phone: Start: 08-22-2023 End: 08-22-2023 ambulatory Gerry Nelson Facility:[facility] Start: 08-22-2023 Encounter for preprocedural laboratory examination Gerry Nelson [facility] Start: 08-22-2023 End: 08-22-2023 ambulatory DO Gerry Barton Work Phone: [facility] Work Phone: Start: 08-22-2023 End: 08-22-2023 Patient encounter procedure DO Gerry Barton Work Phone: [facility] Work Phone: Start: 08-22-2023 End: 08-22-2023 ambulatory GERRY W PAULINAK Not Available Start: 08-10-2023 End: 08-10-2023 Patient encounter procedure DO Gerry Bernardo Work Phone: [facility] Physician [facility] Work Phone: Start: 08-06-2023 Non-patient / Non-visit DO Hayes Barton Work Phone: [facility] Work Phone: Start: 07-30-2023 End: 07-30-2023 ambulatory [facility] Work Phone: Start: 07-30-2023 End: 07-30-2023 Patient encounter procedure [facility] Phys[facility] Work Phone: Start: 07-27-2023 Non-patient / Non-visit [facility] Phys[facility] Work Phone: Start: 07-25-2023 End: 07-25-2023 ambulatory TALIB FRASER Not Available Start: 07-03-2023 End: 07-03-2023 ambulatory Gerry Barton Other [facility] Other Start: 07-03-2023 Nursing evaluation o f patient and report Gerry Barton [facility] Start: 05-22-2023 End: 05-22-2023 ambulatory ROCKY HERNANDEZ Not Available Start: 03-29-2023 End: 03-29-2023 ambulatory Gerry Barton Other [facility] Other Start: 03-29-2023 Telephone encounter Gerry PICHARDO [facility] Start: 03-27-2023 End: 03-27-2023 ambulatory Gerry Barton Other [facility] Other Start: 03-27-2023 Patient encounter procedure Gerry Barton [facility] Start: 03-02-2023 End: 03-02-2023 ambulatory Gerry Barton Other [facility] Other Start: 03-02-2023 Office outpatient vi sit 15 minutes Gerry Barton [facility] Start: 03-02-2023 Telephone encounter Gerry Ball [facility] Start: 02-06-2023 End: 02-06-2023 ambulatory Gerry Barton Other [facility] Other Start: 02-06-2023 Nursing evaluation o f patient and report Gerry Barton [facility] Start: 02-06-2023 Telephone encounter Gerry Barton FP [facility] Start: 01-01-2023 End: 01-01-2023 ambulatory Gerry Barton Other [facility] Other Start: 01-01-2023 Nursing evaluation o f patient and report Gerry Barton [facility] Start: 11-27-2022 End: 11-27-2022 ambulatory Gerry Barton Other [facility] Other Start: 11-27-2022 Nursing evaluation o f patient and report Gerry Barton [facility] Start: 10-18-2022 End: 10-18-[address] GERRY BARTON Facility:[facility] Start: 09-06-2022 End: 09-06-[address] GERRY BARTON Facility:[facility] Start: 09-04-2022 End: 09-04-2022 ambulatory Gerry Barton Other [facility] Other Start: 09-04-2022 Telephone encounter Gerry PICHARDO [facility] Start: 08-28-2022 End: 08-28-2022 ambulatory Gerry Barton Other [facility] Other Start: 08-28-2022 Nursing evaluation o f patient and report Gerry Barton [facility] Start: 07-27-2022 End: 07-27-2022 ambulatory Gerry Barton Other [facility] Other Start: 07-27-2022 Nursing evaluation o f patient and report Gerry Barton [facility] Start: 07-26-2022 End: 07-26-[address] GERRY BARTON Facility:[facility] Start: 07-07-2022 End: 07-07-2022 ambulatory Gerry Barton Other [facility] Other Start: 07-07-2022 Telephone encounter Gerry PICHARDO G [facility] Start: 06-26-2022 End: 06-26-2022 ambulatory Gerry Barton Other [facility] Other Start: 06-26-2022 Nursing evaluation o f patient and report Gerry Barton [facility] Start: 06-14-2022 End: 06-14-[address] GERRY BARTON Facility:[facility] Start: 05-17-2022 End: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 CampusIn the event this information is protected by the Federal Confidentiality of Alcohol and Drug Abuse Patient Records regulations: The Federal rules restrict any use of the information to criminally investigate or prosecute any alcohol or drug abuse patient.[facility] CampusIn the event this information is protected by the Federal Confidentiality of Alcohol and Drug Abuse Patient Records regulations: The Federal rules restrict any use of the information to criminally investigate or prosecute any alcohol or drug abuse patient.[facility] CampusIn the event this information is protected by the Federal Confidentiality of Alcohol and Drug Abuse Patient Records regulations: The Federal rules restrict any use of the information to criminally investigate or prosecute any alcohol or drug abuse patient.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 Start Date End Date Gerry Barton, DO [address] [place] [facility] [place] [address] PCP - General 09/07/09 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 Start Date End Date Gerry Barton, DO [address] [place] [facility] [place] [address] PCP - General 09/07/09 Team Status: Active [...] 2023 End: August 22, 2023 Gerry Nelson , DO Attending Provider [...] February 05, 2024 End: February 05, 2024 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 Start Date End Date Gerry Barton MD PCP - General Internal Medicine 08/04/23 Talib Fraser MD [address] [place] [address] Referring Physician Dermatology 10/31/23 Gerry Nelson DO [address] [place] [address] Otolaryngology 10/31/23 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 Specialty Start Date End Date Gerry Barton MD PCP - General Internal Medicine 08/04/23 Talib Fraser MD [address] [place] [address] Referring Physician Dermatology 10/31/23 Gerry Nelson DO [address] [place] [address] Otolaryngology 10/31/23 Team Status: Inactive Member Role Status Dates Gerry Barton DO Primary Care Provide r, Attending Provider Active Start: March 31, 2024 End: March 31, 2024 (unrecognized sect ion and content) No Status Records FoundNo Status Records FoundNo Status Records FoundNo Status Records FoundNo Status Records Found INFORMATION SOURCE (unrecogn ized section and content) DATE CREATED AUTHOR 03/05/2022 [facility] DATE CREATED AUTHOR AUTHOR'S ORGANIZ ATION 10/18/2022 [facility] DATE CREATED AUTHOR AUTHOR'S ORGANIZ ATION 09/10/2023 [facility] DATE CREATED AUTHOR AUTHOR'S ORGANIZ ATION 03/23/2024 [facility] DATE CREATED AUTHOR AUTHOR'S ORGANIZ ATION 04/09/2024 [facility] Goals (unrecognized section and content) Goals may [...] BE BASED ON THE PRIMARY CLINICAL RECORDS. [employer] [facility]. provides no warranty or guarantee of the accuracy or completeness of information in this document.
[2024-04-11 08:47] LABS: Creatinine Urine Random 134.54 mg/dL (20.00-300.00); Protein Creatinine Ratio Urine 0.78; Total Protein Urine Random 104.8 mg/dL (<=11.9)
[2024-04-12 06:10] LABS: HBsAg Screen Negative (Negative); Hep B Core Ab, Tot Negative (Negative); Hepatitis B Surf Ab Quant <3.5 mIU/mL (Immunity>10)
[2024-04-15 15:11] LABS: Albumin 3.7 g/dL (2.9-4.4); Alpha-1-Globulin 0.3 g/dL (0.0-0.4); Alpha-2-Globulin 0.8 g/dL (0.4-1.0); Free Kappa Lt Chains,S 74.3 mg/L (3.3-19.4); Free Lambda Lt Chains,S 56.3 mg/L (5.7-26.3); Gamma Globulin 0.7 g/dL (0.4-1.8); Immunofixation Result, Serum Comment: (.); Immunoglobulin A, Qn, Serum 226 mg/dL (61-437); Immunoglobulin G, Qn, Serum 728 mg/dL (603-1613); Immunoglobulin M, Qn, Serum 93 mg/dL (15-143); Kappa/Lambda Ratio,S 1.32 (0.26-1.65); Protein, Total 6.5 g/dL (6.0-8.5)
== END 2024-04-11 07:00 | disposition home or self-care (01) ==
LOC: US 07:00
PROVIDERS: PCP Internal Medicine; Visit Provider Internal Medicine
DX: E11.65 Type 2 diabetes mellitus with hyperglycemia (principal); Z79.4 Long term (current) use of insulin; N18.4 Chronic kidney disease, stage 4 (severe); I87.2 Venous insufficiency (chronic) (peripheral); D64.9 Anemia, unspecified; N20.0 Calculus of kidney; I12.9 Hypertensive chronic kidney disease with stage 1 through stage 4 chronic kidney disease, or unspecified chronic kidney disease
CPT/HCPCS: 36415; 76775; 82306; 82570; 82784; 83521; 84155; 84156; 84165; 86317; 86704; 87340

== ENCOUNTER 2024-07-14 07:05 | Outpatient (OUT) | payer MEDICARE, SELFPAY ==
--- OUTSIDE RECORDS SUMMARY | 2024-07-14 07:10 | XMS_ITS | CCD ---
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 Role Phone Bernardo TEJADAGerry Primary Care Provider MARYJO KIDD Referring Unavailable BERNARDO, GERRY Mann Primary Care Unavailable KENDALL HONEYCUTT Attending Unavailable KINGS JONES Referring Unavailable BERNARDO, GERRY Mann Primary Care Unavailable YOLY BOSS Referring Unavailable GERRY CHANG Primary Care Unavailable GERRY CHANG Primary Care Physician Bernardo, Gerry Unavailable BERNARDO, DR GARRETT Primary Care Unavailable BALL, DR GARRETT Consulting Unavailable BALL, DR GARRETT Admitting Unavailable BALL, DR GARRETT Attending Unavailable GRILLIS ., DR BLADIMIR Mann Attending Unavaila ble GRILLIS ., DR BLADIMIR Mann Admitting Unavaila ble GRILLIS ., DR BLADIMIR Mann Consulting Unavaila ble BALL, DR GARRETT Primary Care Unavailable [place], DR ALONZO Hernandez Consulting Unavailable BALL, DR [...] Unavailable Ball, DO Garrett Primary Care Provider [phone] DO Gerry Nelson Attending Provider [phone] Gerry Nelson Attending Unavailable Ball, Gerry Primary Care Unavailable Murcek, Gerry Admitting Unavailable Murcek, Gerry Admitting Unavailable Murcek, Gerry Attending Unavailable Ball, Gerry Primary Care Unavailable Gerry Chang MD Primary Care Provider Talib Gant MD Unavailable Gerry Nelson DO Unavailable TALIB GANT Attending Unavailable MURCEK, GERRY Booker Attending Unavailable PETITTI, TALIB Leon Referring Unavailable MURCEK, GERRY Booker Attending Unavailable MURCEK, GERRY Booker Attending Unavailable BALL, GERRY Mann Referring Unavailable MURCEK, GERRY Booker Attending Unavailable PETITTI, TALIB Leon Referring Unavailable MURCEK, GERRY Booker Attending Unavailable HERNANDEZROCKY Attending Unavailable FELTDAQUAN, ASHLEY Leon Attending Unavailable Jenaro HANSEN Attending Unavailable GERRY CHANG Referring Unavailable Jenaro HANSEN Attending Unavailable Allergies Allergy Classification Reported Allergen(s) Allergy Type Date of Onset Reaction(s) Facility (7 sources) Ketorolac; Translations: [KETOROLAC] Drug Allergy 09-24-19 21 Unknown, Unknown (qualifier value) [facility] (13 sources) Piperacillin / tazobactam; Translations: [PIPERACILLIN-TA ZOBACTAM] Drug Allergy 09-15-19 10 Rash [facility] (3 sources) Vorinostat; Translations: [vorinostat] Drug Allergy Unknown (qualifier value) [facility] (2 sources) Ketorolac; Translations: [Toradol] Drug Allergy [facility] (1 source) Piperacillin / tazobactam Drug Allergy 01-15-20 16 [facility] (1 source) tazobactam Drug Allergy [facility] (3 sources) patient allergy list reviewed by nurse or physicia Propensity to adverse reactions 12-26-19 19 Comment:Done [facility] (3 sources) Allergies Reconciled Propensity to adverse reactions Unknown [facility] Other (1 source) Piperacillin Drug Allergy 08-22-19 24 [facility] (3 sources) Ketorolac Allergy to substance 09-24-19 21 Unknown [facility] Healthcare Work Phone: (3 sources) Ketorolac trometamol Allergy to substance 07-25-19 24 Unknown [facility] (3 sources) Piperacillin Drug Allergy 08-22-19 24 [facility] Healthcare (3 sources) Piperacillin / tazobactam Drug Allergy 09-15-19 10 Rash [facility] (3 sources) Vorinostat Drug Allergy 08-22-19 24 Unknown [facility] Healthcare Work Phone: (3 sources) Piperacillin Sod-Tazobactam So Drug Intolerance 04-10-20 13 Other [facility] Healthcare Medications Current Medications Medication Drug Class(es) Dates Sig (Normalized) Sig (Original) Aspir-81 81 MG (14 sources) take 1 tablet by mouth three times weekly Aspir-81 81 MG 1 tablet Orally THREE TIMES A WEEK for 30 day(s) Active aspirin 81 mg delayed release oral tablet (19 sources) Platelet Aggregation Inhibitor, Nonsteroidal Anti-inflammatory Drug Start: 07-25-2023 take 1 tablet by mouth three times weekly Aspirin 81 mg tablet,delayed release (DR/EC) Active 81 MG PO 3 Times a week July 25, 2023 12:00am On Hold: Resume on 09/01/23. Start: 11-27-2019 [...] mouth once daily in the evening Atorvastatin 10 mg tablet Active 0 .ROUTE .COMPLEX 90 October 17, 2023 12:21pm TAKE 1 TABLET BY MOUTH EVERY EVENING Start: 07-25-2023 End: 10-17-2023 take 1 tablet by mouth once daily at bedtime Atorvastatin 10 mg tablet Discontinued 10 MG PO Daily at bedtime July 25, 2023 12:00am October 17, 2023 12:21pm Start: 11-27-2019 atorvastatin O ral, Daily, Refills(s) 0 Start Date: 11/27/19 Status: Ordered Comment on above: Take 10 mg by mouth once daily. benazepril hydrochloride 10 mg oral tablet (3 sources) Angiotensin Converting Enzyme Inhibitor take 1 tablet by mouth in the morning benazepril (Lotensin) 10 MG tablet Take 10 mg by mouth in the morning. Active calcium carbonate 1500 mg oral tablet (1 source) Start: 4 take 1 tablet by mouth once daily Calcium Carbonate 600 mg calcium (1,500 mg) tablet Active 600 MG PO Daily May 05, 2024 12:00am carvedilol 6.25 mg oral tablet (20 sources) alpha-Adrenergic Luli, beta-Adrenergic Luli Start: 4 take 1 tablet by mouth twice daily Carvedilol 6.25 mg tablet Active 0 .ROUTE .COMPLEX 180 November 15, 2023 11:59am TAKE 1 TABLET BY MOUTH TWICE A DAY Start: 11-27-2019 carvedilol Ora l, Refills(s) 0 Start Date: 11/27/19 Status: Ordered Start: 06-15-2014 End: 11-15-2023 take 1 tablet by mouth twice daily Carvedilol 6.25 mg tablet Discontinued 6.25 MG PO Twice daily July 25, 2023 12:00am November 15, 2023 12:00pm Comment on above: Take 6.25 mg by [...] mouth once daily in the morning Glimepiride 4 mg tablet Active 0 .ROUTE .COMPLEX 180 November 19, 2023 11:44am TAKE 2 TABLETS BY MOUTH EVERY MORNING 30 MINUTES PRIOR TO BREAKFAST Start: 07-25-2023 take 4 mg by mouth once daily Glimepiride Active 4 MG PO Daily July 25, 2023 12:00am Start: 11-27-2019 glimepiride Or al, Daily, Refills(s) 0 Start Date: 11/27/19 Status: Ordered Start: 06-19-2012 End: 11-19-2023 take 1 tablet by mouth twice daily Glimepiride 4 mg tablet Discontinued 4 MG PO Twice daily July 25, 2023 12:00am November 19, 2023 11:44am Glimepiride 4 MG TAKE 2 TABLETS BY [...] bedtime Active Comment on above: 12 Units. 3 ml insulin glargine 100 unt/ml pen injector (1 source) Insulin Analog Start: 03-31-20 inject 8 [IU] by subcutaneous injection once daily in the evening as needed Insulin Glargine (Lantus Solostar U-100 Insulin) 100 unit/mL (3 mL) insulin pen Active 0 SUBCUT Every evening as needed for RBS > 180 08 31March 30, 2024 11:00pm 8 units subcutaneously every evening PRN; Levemir FlexPen 100 UNIT/ML (2 sources) Start: 07-07-19 Levemir FlexPen 100 UNIT/ML 12 units Subcutaneous Once daily for 90 days Jul, Active linagliptin 5 mg oral tablet (20 sources) Dipeptidyl Peptidase 4 Inhibitor Start: 02-28-20 24 End: 03-11-20 24 take 1 tablet by mouth once daily Linagliptin (Tradjenta) 5 mg tablet Active 0 .ROUTE .COMPLEX March 11, 2024 4:20pm TAKE 1 TABLET BY MOUTH EVERY DAY Start: 11-27-2019 take 1 mg by mouth once daily Tradjenta mg, Oral, Daily, Refills(s) 0 Start Date: 11/27/19 Status: Ordered Start: 06-15-2013 End: 02-28-2024 take 1 tablet by mouth once daily in the morning Linagliptin (Tradjenta) 5 mg tablet Discontinued 5 MG PO Every morning July 25, 2023 12:00am February 28, 2024 1:23pm Comment on above: 5 mg once daily. lisinopril 2.5 mg oral tablet (20 sources) Angiotensin Converting Enzyme Inhibitor Start: 09-18-2023 take 1 tablet by mouth once daily Lisinopril 2.5 mg tablet Active 0 .ROUTE .COMPLEX September 18, 2023 12:24pm TAKE 1 TABLET BY MOUTH EVERY DAY Start: 07-25-2023 End: 09-18-2023 take 1 tablet by mouth once daily at bedtime Lisinopril 2.5 mg tablet Discontinued 2.5 MG PO Daily at bedtime July 25, 2023 12:00am September 18, 2023 12:24pm Start: 11-27-2019 lisinopril Ora l, Daily, Refills(s) [...] to 1 000 mcg Jun, 1000 mcg Insulin Detemir U-100 (Levem ir Flexpen) 100 unit/mL (3 mL) insulin pen (9 sources) Start: 08-22-2023 End: 03-31-2024 Insulin Detemir U-100 (Levem ir Flexpen) 100 unit/mL (3 mL) insulin pen Discontinued 12 UNIT SUBCUT Daily at bedtime August 21, 2023 11:00pm March 31, 2024 9:04am Start: 08-22-2023 Insulin Detemi r U-100 (Levemir Flexpen) 100 unit/mL (3 mL) insulin pen Active 12 UNIT SUBCUT Daily at bedtime August 22, 2023 12:00am Start: 08-22-2023 inject 10 [IU] by wisdom bcutaneous injection once daily at bedtime Insulin Detemir U-100 (Levemir Flexpen) 100 unit/mL (3 mL) insulin pen Active 10 UNIT SUBCUT Daily at bedtime August 22, 2023 12:00am traMADol hydrochloride 50 mg oral tablet (15 sources) Opioid Agonist Start: 11-22-2023 End: 05-05-2024 take 1 tablet by mouth twice daily Tramadol 50 mg tablet Discontinued 50 MG PO Twice daily November 23, 2023 3:25pm May 05, 2024 2:51pm Start: 11-15-2023 End: 11-22-2023 take 1 tablet by mouth once daily at bedtime Tramadol 50 mg tablet Discontinued 50 MG PO Daily at bedtime 12 08November 14, 2023 11:00pm November 22, 2023 5:10pm valACYclovir 1000 mg oral tablet (6 sources) Herpesvirus Nucleoside Analog DNA Polymerase Inhibitor, Herpes Simplex Virus Nucleoside Analog DNA Polymerase Inhibitor, Herpes Zoster Virus Nucleoside Analog DNA Polymerase Inhibitor Start: 11-02-2023 End: 11-28-2023 Valacyclovir 1 gram tablet Discontinued 1000 MG PO Three times daily 22 12November 01, 2023 11:00pm November 28, 2023 7:54am Start: 11-02-2023 End: 11-28-2023 take 1000 mg by mouth three times daily Valacyclovir Discontinued 1000 MG PO Three times daily 22 12November 02, 2023 12:00am November 28, 2023 8:54am Problems Active Problems Problem Classification Problem Date Documented Date Episodic/Chronic Acquired foot deformities (11 sources) Acquired hammer toe of left foot; Translations: [Other hammer toe(s) (acquired), left foot] Onset: 4 08-22-2023 Chronic Acute bronchitis (4 sources) Acute bronchitis; Translations: [Acute bronchitis, unspecified] Onset: 5 Episodic Anxiety disorders (6 sources) Posttraumatic stress disorder; Translations: [Posttraumatic stress disorder] Onset: 7 Chronic Calculus of urinary tract (2 sources) Kidney stone; Translations: [Calculus of kidney] Onset: 4 Episodic Chronic kidney disease (15 sources) Chronic kidney disease, unspecified; Translations: [Chronic kidney disease stage 3] Onset: 6 03-31-2024 Chronic Chronic ulcer of skin (15 sources) Non-pressure chronic ulcer of unspecified part of right lower leg limited to breakdown of skin; Translations: [Chronic ulcer of foot] Onset: 9 Resolved: 0 08-22-2023 Chronic Coagulation and hemorrhagic disorders (2 sources) Blood coagulation disorder 12-01-2019 Chronic Complication of device; implant or graft (4 sources) Other specified complication of vascular prosthetic devices, implants and grafts, initial encounter; Translations: [OTH COMP VASC PROSTH DEV GRAFT INIT] Onset: 2 Chronic Deficiency and other anemia (7 sources) Acquired pancytopenia; Translations: [Other drug-induced pancytopenia] Onset: 0 08-22-2023 Chronic Deficiency and other anemia (20 sources) Pernicious anemia; Translations: [Vitamin B12 deficiency anemia due to intrinsic factor deficiency] Onset: 4 Resolved: 4 07-25-2023 Episodic Deficiency and other anemia (18 sources) Vitamin B12 deficiency anemia due to intrinsic factor deficiency; Translations: [Pernicious anemia] Episodic Deficiency and other anemia (4 sources) Anemia; Translations: [Anemia, unspecified] Resolved: 0 04-15-2024 Episodic Diabetes mellitus with complications (20 sources) Type 2 diabetes mellitus with diabetic chronic kidney disease; Translations: [Hyperglycemia due to type 2 diabetes mellitus] Onset: 7 Chronic Diabetes mellitus without complication (20 sources) Diabetes mellitus; Translations: [Type 2 diabetes mellitus without complications] Onset: 9 05-05-2019 Chronic Diabetes mellitus without complication (5 sources) Glycosuria; Translations: [Glycosuria] Onset: 4 12-01-2019 Episodic Diseases of white blood cells (7 sources) Neutropenia; Translations: [Neutropenia, unspecified] Onset: 0 08-22-2023 Chronic Disorders of lipid metabolism (20 sources) Mixed hyperlipidemia; Translations: [Hyperlipidemia, unspecified] Onset: 2 Resolved: 4 Chronic Essential hypertension (20 sources) Essential (primary) hypertension; Translations: [Essential hypertension] Onset: 2 Resolved: 4 Chronic Genitourinary symptoms and ill-defined conditions (8 sources) Proteinuria; Translations: [Asymptomatic microscopic hematuria] Onset: 4 12-01-2019 Episodic Hyperplasia of prostate (20 sources) Benign prostatic hyperplasia; Translations: [Benign prostatic hyperplasia without lower urinary tract symptoms] Onset: 0 Chronic Hypertension with complications and secondary hypertension (3 sources) Hypertensive chronic kidney disease with stage 1 through stage 4 chronic kidney disease, or unspecified chronic kidney disease; Translations: [Chronic kidney disease due to hypertension] Onset: 2 05-05-2024 Chronic Immunizations and screening for infectious disease (3 sources) Vaccination given; Translations: [Encounter for immunization] Episodic Intestinal obstruction without hernia (12 sources) Intestinal adhesions [bands], unspecified as to partial versus complete obstruction; Translations: [Intestinal adhesions [bands], with partial obstruction] Onset: 7 Episodic Nausea and vomiting (9 sources) Nausea and vomiting; Translations: [Nausea & vomiting] Episodic Nephritis; nephrosis; renal sclerosis (1 source) Atrophy of kidney; 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)] Onset: 4 Chronic Non-Hodgkin`s lymphoma (20 sources) Non-Hodgkin's lymphoma (clinical); Translations: [Non-Hodgkin lymphoma, unspecified, unspecified site] Onset: 0 Chronic Osteoarthritis (11 sources) Arthritis; Translations: [Osteoarthritis] Onset: 4 12-01-2019 Chronic Other aftercare (5 sources) Encounter for adjustment and management of vascular access device; Translations: [ENC ADJUSTMENT AND MANAGEMENT VAD] Onset: 2 Episodic Other aftercare (2 sources) Other longterm (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; Translations: [OTH SHORTS SIFTER CURRENT DRUG THERAPY] Onset: 2 Episodic Other aftercare (3 sources) Long-term current use of 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; Translations: [Other longterm (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] Episodic Other aftercare (4 sources) H/O: high risk medication; Translations: [Other barge captain (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] Episodic Other and unspecified [...] [Presence of artificial knee joint, bilateral] Onset: 4 08-22-2023 Chronic Other connective tissue disease (3 sources) H/O: musculoskeletal disease; Translations: [Personal history of other diseases of the musculoskeletal system and connective tissue] Episodic Other connective tissue disease (5 sources) History of osteomyelitis; Translations: [Personal history of other diseases of the musculoskeletal system and connective tissue] Episodic Other diseases of kidney and ureters (1 source) Secondary hyperparathyroidism; Translations: [Secondary hyperparathyroidism of renal origin] 05-05-2024 Chronic Other diseases of kidney and ureters (1 source) Secondary hyperparathyroidism of renal origin; Translations: [Secondary hyperparathyroidism (of renal origin)] 05-05-2024 Chronic Other diseases of kidney and ureters (3 sources) Disorder of kidney and/or ureter; Translations: [Disorder of kidney and ureter, unspecified] Episodic Other diseases of kidney and ureters (1 source) Acquired renal cyst without neoplastic change; Translations: [Cyst of kidney, acquired] Onset: 4 Episodic Other diseases of kidney and ureters (1 source) Cyst of kidney 04-14-2024 Episodic Other diseases of veins and lymphatics (3 sources) Venous ulcer of lower extremity due to chronic peripheral venous hypertension; Translations: [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] Chronic Other diseases of veins and lymphatics (20 sources) Peripheral venous insufficiency; Translations: [Venous insufficiency (chronic) (peripheral)] Onset: 4 Resolved: 4 07-25-2023 Episodic Other diseases of veins and lymphatics (11 sources) Venous insufficiency (chronic) (peripheral); Translations: [Venous (peripheral) insufficiency, unspecified] Episodic Other injuries and conditions due to external causes (3 sources) History of fall; Translations: [History of falling] Episodic Other nervous system disorders (3 sources) Chronic pain; Translations: [Other chronic pain] Onset: 4 08-22-2023 Chronic Other non-epithelial cancer of skin (20 sources) Basal cell carcinoma of skin of other part of trunk; Translations: [Carcinoma in situ of skin of scalp and neck] Onset: 2 03-21-2024 Episodic Other non-traumatic joint disorders (4 sources) Charcot's joint, left ankle and foot; Translations: [CHARCOTS JOINT LEFT ANKLE AND FO] Onset: 2 Chronic Other non-traumatic joint disorders (11 sources) Arthropathy associated with a neurological disorder; Translations: [Charcot's joint, unspecified ankle and foot] Chronic Other non-traumatic joint disorders (3 sources) Joint ankylosis of the shoulder region; Translations: [Ankylosis, right shoulder] Onset: 4 08-22-2023 Chronic Other nutritional; endocrine; and metabolic disorders (3 sources) Obese class I; Translations: [Body mass index 33.0-33.9, adult] Onset: 0 Chronic Other nutritional; endocrine; and metabolic disorders (3 sources) Simple obesity ; Translations: [Other obesity due to excess calories] Onset: 0 Chronic Other nutritional; endocrine; and metabolic disorders (5 sources) Obesity; Translations: [Obesity, unspecified] 03-31-2024 Chronic Other nutritional; endocrine; and metabolic disorders (1 source) Other obesity due to excess calories Chronic Other nutritional; endocrine; and metabolic disorders (1 source) Body mass index (BMI) 30.0-30.9, adult Chronic Other nutritional; endocrine; and metabolic disorders (2 sources) Obesity, unspecified; Translations: [Obesity, unspecified] 03-31-2024 Chronic Other screening for suspected conditions (not mental disorders or infectious disease) (20 sources) Raised prostate specific antigen; Translations: [Elevated prostate specific antigen [PSA]] Onset: 2 Episodic Comment on above: PSA: 2.93 - 02/2022, 2.64 - 03/2023, 5.63- 03/2024 Other skin disorders (5 sources) Localized swelling, mass and lump, trunk; Translations: [LOCALIZD SWELLING MASS AND LUMP TRUNK] Onset: 2 Episodic Other skin disorders (3 sources) Localized [...] and visceral atherosclerosis (3 sources) Atherosclerosis of [place] arteries of the extremities; Translations: [Atherosclerosis of [place] arteries of the extremities, unspecified] Chronic Residual codes; unclassified (1 source) Other transplanted organ and tissue status; Translations: [OTH TRANSPLANTED ORGAN AND TISSUE STS] Onset: 2 Chronic Residual codes; unclassified (1 source) Bone marrow transplant status; Translations: [BONE MARROW TRANSPLANT STATUS] Onset: 2 Chronic Residual codes; unclassified (3 sources) Preventive procedure; Translations: [Encounter for other specified prophylactic measures] Episodic Unclassified (2 sources) Asymptomatic microscopic hematuria 03-28-2021 Unclassified (3 sources) Long-term current use of 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; Translations: [Long-term (current) use of other medications] Onset: 6 Unclassified (1 source) Atrophy of left kidney 04-14-2024 Viral infection (7 sources) Herpes zoster; Translations: [Zoster without complications] [...] infusion catheter, initial encounter] Onset: 2 Episodic Fever of unknown origin (7 sources) Fever; Translations: [Fever, unspecified] Onset: 0 08-22-2023 Episodic Gastrointestinal hemorrhage (3 sources) Gastrointestinal hemorrhage; Translations: [Gastrointestinal hemorrhage, unspecified] Onset: 1 08-22-2023 Episodic Neoplasms of unspecified nature or uncertain [...] Onset: 8 Episodic Other aftercare (1 source) retirement (current) use of oral hypoglycemic drugs; Translations: [CORRECTION USE ORAL HYPOGLYCEMIC DX] Onset: 2 Episodic [...] Test Name Value Interpretation Reference Range Facility Albumin [Mass/volume] in Ser um or Plasmaon 04-11-2024 Albumin [Mass/Vol] Albumin [Mass/volume ] in Serum or Plasma 2.9-4.4 [facility] Hepatitis B virus surface Ab [Presence] in Serumon 04-11-2024 HBV surface Ab Ql (S) Hepatitis B virus surface Ab [Presence] in Serum Abnormal Immunity>10 [facility] Comment on above: Status of Immunity A nti-HBs Level Inconsistent with Immunity 0.0 - 10.0Consistent with Immunity >10.0 Hepatitis B virus surface Ag [Presence] in Serum or Plasma by Immunoassayon 04-11-2024 HBV surface Ag IA Ql Hepatitis B virus surface Ag [Presence] in Serum or Plasma by Immunoassay Negative [facility] IgA [Mass/volume] in Serum o r Plasmaon 04-11-2024 IgA [Mass/Vol] IgA [Mass/volume] in Serum or Plasma [phone] [facility] IgG [Mass/volume] in Serum o r Plasmaon 04-11-2024 IgG [Mass/Vol] IgG [Mass/volume] in Serum or Plasma [id number] [facility] IgM [Mass/volume] in Serum o r Plasmaon 04-11-2024 IgM [Mass/Vol] IgM [Mass/volume] in Serum or Plasma 15-143 [facility] Immunoglobulin light chains. kappa.free [Mass/volume] in Serumon 04-11-2024 Immunoglobulin light chains.kappa.free (S) [Mass/Vol] Immunoglobulin light chains.kappa.free [Mass/volume] in Serum Abnormal 3.3-19.4 [facility] Immunoglobulin light chains. kappa.free/Immunoglobulin light chains.lambda.free [Sean 04-11-2024 Immunoglobulin light chains.kappa.free/Immun oglobulin light chains.lambda.free (S) [Mass ratio] Immunoglobulin light chains.kappa.free/Immun oglobulin light chains.lambda.free [Mass 0.26-1.65 [facility] Comment on above: Performed at: [place], [place] [id number] Director: Karel Kaye PhD, Phone: [phone] Immunoglobulin light chains. lambda.free [Mass/volume] in Serum or Plasmaon 04-11-2024 Immunoglobulin light chains.lambda.free [Mass/Vol] Immunoglobulin light chains.lambda.free [Mass/volume] in Serum or Plasma Abnormal 5.7-26.3 [facility] Laboratory - Urinalysison Protein (U) [Mass/Vol] 104.8 mg/dL High <=11.9 [facility] No Panel Informationon 04-11 25-Hydroxy Vitamin D Total 36.9 ng/mL [facility] Comment on above: <20 ng/mL Vit D defi cient20-<30 ng/mL Vit D [id number] ng/mL Vit D sufficient>100 ng/mL Potential Toxicity Hepatitis B Core Total Antibody Negative Negative [facility] Comment on above: Performed at: [place], [place] [id number] Director: Karel Kaye PhD, Phone: [phone] Protein Electrophoresis M-Petar Not Observed g/dL Not Observed [facility] Protein Electrophoresis Note Comment . [facility] Comment on above: Protein electrophore sis scan will follow via computer,mail, or meat selector delivery. Urine Random Creatinine 134.54 mg/dL 20.0 0-300.0 0 [facility] Protein [Mass/volume] in Ser um or Plasmaon 04-11-2024 Protein [Mass/Vol] Protein [Mass/volume ] in Serum or Plasma 6.0-8.5 [facility] Serum globulin measurement ( mass/volume)on 04-11-2024 Globulin (S) [Mass/Vol] Serum globulin measurement (mass/volume) 2.2-3.9 [facility] Serum or plasma albumin/glob ulin mass ratioon 04-11-2024 Albumin/Globulin [Mass ratio] Serum or plasma albumin/globulin mass ratio 0.7-1.7 [facility] Serum or plasma alpha 1 glob ulin measurement by electrophoresis (mass/volume)on 04-11-2024 Alpha 1 globulin Elph [Mass/Vol] Serum or plasma alpha 1 globulin measurement by electrophoresis (mass/volume) 0.0-0.4 [facility] Serum or plasma alpha 2 glob ulin measurement by electrophoresis (mass/volume)on 04-11-2024 Alpha 2 globulin Elph [Mass/Vol] Serum or plasma alpha 2 globulin measurement by electrophoresis (mass/volume) 0.4-1.0 [facility] Serum or plasma beta globuli n measurement by electrophoresis (mass/volume)on 04-11-2024 Beta globulin Elph [Mass/Vol] Serum or plasma beta globulin measurement by electrophoresis (mass/volume) 0.7-1.3 [facility] Serum or plasma gamma globul in measurement by electrophoresis (mass/volume)on 04-11-2024 Gamma globulin Elph [Mass/Vol] Serum or plasma gamma globulin measurement by electrophoresis (mass/volume) 0.4-1.8 [facility] Serum or plasma immunoelectr ophoresis interpretationon 04-11-2024 Interpretation IEP [Interp] Serum or plasma immunoelectrophoresis interpretation . [facility] Comment on above: Presence of monoclon al protein is unclear at this time. Suggestrepeat in 3 to 6 months if clinically indicated. Urine protein/creatinine rat ioon 04-11-2024 Protein/Creatinine (U) [Ratio] Urine protein/creatinine ratio [facility] Basophils Auto (Bld) [#/Vol] on 04-01-2024 Basophils (Bld) [#/Vol] Automated basoph il count 0.0-0.1 [facility] Basophils/100 WBC Auto (Bld) on 04-01-2024 Basophils/100 WBC (Bld) Automated basophil % 0. 2-2.0 [facility] Cholesterol in LDL Calc [Mas s/Vol]on 04-01-2024 Cholesterol in LDL [Mass/Vol] Cholesterol in LDL [Mass/volume] in Serum or Plasma by calculation [facility] Comment on above: <100 mg/dl [id number] 0-129 mg/dl NEAR OR ABOVE [id number] mg/dl BORDERLINE [id number] mg/dl HIGH>190 mg/dl VERY HIGH Cholesterol in VLDL Calc [Ma ss/Vol]on 04-01-2024 Cholesterol in VLDL [Mass/Vol] Cholesterol in VLDL [Mass/volume] in Serum or Plasma by calculation [facility] Eosinophils/100 WBC Auto (Bl d)on 04-01-2024 Eosinophils/100 WBC (Bld) Automated eosinophil % 0.9-7.0 [facility] Erythrocyte distribution wid th Auto (RBC) [Ratio]on 04-01-2024 Erythrocyte distribution width (RBC) [Ratio] Erythrocyte distribution width [Ratio] by Automated count 11.0-15.0 [facility] Estimated glomerular filtrat ion rate (GFR) non- Americanon 04-01-2024 GFR/1.73 sq M.predicted among non-blacks MDRD (S/P/Bld) [Vol rate/Area] Estimated glomerular filtration rate (GFR) non- Low >=60 mL/min/1.73 m 2 [facility] Globulin Calc (S) [Mass/Vol] on 04-01-2024 Globulin (S) [Mass/Vol] Serum globulin measurement by calculation (mass/volume) [facility] Hematocrit Auto (Bld) [Volum e fraction]on 04-01-2024 Hematocrit (Bld) [Volume fraction] Hematocrit [Volume Fraction] of Blood by Automated count Low 42.0-54.0 [facility] Hemoglobin [Mass/volume] in Bloodon 04-01-2024 Hemoglobin (Bld) [Mass/Vol] Hemoglobin [Mass/volume] in Blood Low 14.0-18.0 [facility] Laboratory - Chemistry and C hemistry - challengeon 04-01-2024 Albumin [Mass/Vol] 3.2 g/dL Low 3.4-5.0 [facility] ALP [Catalytic activity/Vol] 92 U/L 46-116 [facility] ALT [Catalytic activity/Vol] 14 U/L Low 16-63 [facility] AST [Catalytic activity/Vol] 12 U/L Low 15-37 [facility] Bilirubin [Mass/Vol] 0.4 mg/dL 0.2-1.0 [facility] Calcium [Mass/Vol] 8.4 mg/dL Low 8.5-10.1 [facility] Chloride [Moles/Vol] 109 mmol/L High 98-107 [facility] Cholesterol [Mass/Vol] 103 mg/dL <=200 [facility] Cholesterol in HDL [Mass/Vol] 36 mg/dL Low 40-60 [facility] Comment on above: > or =60 mg/dl - LOW CARDIOVASCULAR RISK<40 mg/dl - HIGH CARDIOVASCULAR RISK CO2 [Moles/Vol] 21.1 mmol/L 21.0-32.0 [facility] Creatinine [Mass/Vol] 3.15 mg/dL High 0.70-1.30 [facility] GFR/1.73 sq M.predicted MDRD (S/P/Bld) [Vol rate/Area] 23 mL/min/{1.73_m2} Low >=60 mL/min/1.73 m 2 [facility] Glucose [Mass/Vol] 151 mg/dL High 74-106 [facility] Potassium [Moles/Vol] 4.9 mmol/L 3.5-5.1 [facility] Protein [Mass/Vol] 6.5 g/dL 6.4-8.2 [facility] Sodium [Moles/Vol] 142 mmol/L 136-145 [facility] Triglyceride [Mass/Vol] 170 mg/dL High <=150 [facility] Urea nitrogen [Mass/Vol] 48.0 mg/dL High 7.0-18.0 [facility] Urea nitrogen/Creatinine [Mass ratio] 15.2 mg/mg [facility] Laboratory - Hematology and Cell countson 04-01-2024 Immature granulocytes/100 WBC (Bld) 0.3 % 0.0-0.5 [facility] Laboratory - Urinalysison Protein (U) [Mass/Vol] 94.1 mg/dL High <=11.9 [facility] Leukocytes [#/volume] correc yoseph for nucleated erythrocytes in Blood by Automated counon 04-01-2024 WBC corrected for nucl RBC Auto (Bld) [#/Vol] Leukocytes [#/volume] corrected for nucleated erythrocytes in Blood by Automated coun 4.0-11.0 [facility] Lymphocytes Auto (Bld) [#/Vo l]on 04-01-2024 Lymphocytes (Bld) [#/Vol] Lymphocytes [#/volume] in Blood by Automated count Low 1.2-3.8 [facility] Lymphocytes/100 WBC Auto (Bl d)on 04-01-2024 Lymphocytes/100 WBC (Bld) Lymphocytes/100 leukocytes in Blood by Automated count Low 20.5-60.0 [facility] MCH Auto (RBC) [Entitic mass ]on 04-01-2024 MCH (RBC) [Entitic mass] MCH [Entitic mass] by Automated count 25.9-34.0 [facility] MCHC Auto (RBC) [Mass/Vol]on 04-01-2024 MCHC (RBC) [Mass/Vol] MCHC [Mass/volume] by Automated count 29.9-35.2 [facility] MCV Auto (RBC) [Entitic vol] on 04-01-2024 MCV (RBC) [Entitic vol] MCV [Entitic vol ume] by Automated count High 80.0-94.0 [facility] Monocytes Auto (Bld) [#/Vol] on 04-01-2024 Monocytes (Bld) [#/Vol] Automated blood monocyte count 0.3-0.8 [facility] Monocytes/100 WBC Auto (Bld) on 10-29-2024 Monocytes/100 WBC (Bld) Automated monocyte % 1. 7-12.0 [facility] Neutrophils Auto (Bld) [#/Vo l]on 04-01-2024 Neutrophils (Bld) [#/Vol] Neutrophils [#/volume] in Blood by Automated count 1.4-6.5 [facility] Neutrophils/100 WBC Auto (Bl d)on 04-01-2024 Neutrophils/100 WBC (Bld) Automated neutrophil % High 43.0-75.0 [facility] No Panel Informationon 04-01 Eosinophils # (Auto) 0.2 10 3/uL 0.0-0.7 [facility] Immature Granulocyte # (Auto) 0.02 10 3/uL 0.00-0.03 [facility] Prostate Specific Antigen Screen 5.63 ng/mL High <=4.00 [facility] Urine Random Creatinine 103.93 mg/dL 20.0 0-300.0 0 [facility] Platelet mean volume Auto (B ld) [Entitic vol]on 04-01-2024 Platelet mean volume (Bld) [Entitic vol] Platelet mean volume [Entitic volume] in Blood by Automated count Low 9.5-13.5 [facility] Platelets Auto (Bld) [#/Vol] on 04-01-2024 Platelets (Bld) [#/Vol] Platelets [#/vol ume] in Blood by Automated count Low 150-450 [facility] RBC Auto (Bld) [#/Vol]on RBC (Bld) [#/Vol] Erythrocytes [#/volu me] in Blood by Automated count Low 4.70-6.10 [facility] Serum or plasma albumin/glob ulin mass ratioon 04-01-2024 Albumin/Globulin [Mass ratio] Serum or plasma albumin/globulin mass ratio [facility] Serum or plasma anion gap de terminationon 04-01-2024 Anion gap [Moles/Vol] Serum or plasma an ion gap determination [facility] Serum or plasma total choles terol/high density lipoprotein (HDL) cholesterol mass tawanna 04-01-2024 Cholesterol.total/Bertha sterol in HDL [Mass ratio] Serum or plasma total cholesterol/high density lipoprotein (HDL) cholesterol mass rat [facility] Comment on above: 3.3 - 4.4 LOW RISK4. 4 - 7.1 AVERAGE RISK7.1 - 11.0 MODERATE RISK>11.0 HIGH RISK Urine protein/creatinine rat ioon 04-01-2024 Protein/Creatinine (U) [Ratio] Urine protein/creatinine ratio [facility] No Panel Informationon 03-21 [facility] Glucose mean value [Mass/vol ume] in Blood Estimated from glycated hemoglobinon 12-19-2023 Average glucose Estimated from glycated hemoglobin (Bld) [Mass/Vol] 169 mg/dL [facility] Laboratory - Hematology and Cell countson 12-19-2023 HbA1c (Bld) [Mass fraction] 7.5 % High 4.5-6.2 [facility] Comment on above: ADA RECOMMENDED LIMI T 4.0 - 6.0ADA THERAPEUTIC TARGET < 7.0ACTION SUGGESTED> 7.0 Glucose Glucometer (BldC) [M ass/Vol]Ordered By: Gerry Nelson on 08-28-2023 Glucose [Mass/Vol] 101 mg/dL [facility] Comment on above: Random Glucose Refer ence Range is dependent on time and content of last meal. Glucose of more than 200 mg/dL in a nonstressed, ambulatory subject supports the diagnosis of Diabetes Mellitus. Glucose Poct Glucometerson 0 08-28-2023 Glucose [Mass/Vol] 101 mg/dL Normal [facility] Comment on above: Result Comment: [place] om Glucose Reference Range is dependent on time and content of last meal. Glucose of more than 200 mg/dL in a nonstressed, ambulatory subject supports the diagnosis of Diabetes Mellitus. PERFORMED BY: [facility] [address] [place] [address] PATHOLOGIST PAPER MACHINE TENDER AMANAD ZAMORA M.D. Performed By: #### G LULS #### Point of Care testing , Commemt1 Glu2: Cleaned Meter Normal [facility] Comment on above: Result Comment: PERF ORMED BY: [facility] [address] [place] [address] PATHOLOGIST PAPER MACHINE TENDER AMANDA ZAMORA M.D. Performed By: #### G LULS #### Point of Care testing , Glucose [Mass/Vol] 147 mg/dL Normal [facility] Comment on above: Result Comment: [facility] Glucose Reference Range is dependent on time and content of last meal. Glucose of more than 200 mg/dL in a nonstressed, ambulatory subject supports the diagnosis of Diabetes Mellitus. Performed By: #### G SHAMEKA #### Point of Care testing , Von 08-28-2023 L Specimen: Received: 08/28/23 Status: MANJIT Caballero Num: [id number] Spec Type: Surgical Subm Dr: Gerry Nelson DO Tissues: A Skin-Other than Cyst, tag, debridement or plastic repair (SCALP) Procedures: HE/7, Gross/Micro L4, Frozen Section, Froz Sec, Add/4, FS HE/10 Age/ Patient Sex Location Account Attending Physician Eugenio Crews 78/M ID [id number] Gerry Nelson DO SPEC NUM: [id number] RECD: 08/28/23 STATUS: MANJIT CABALLERO NUM: [id number] ANJALI: 08/28/[address]: Gerry Nelson DO ENTERED: 08/28/[address] [facility] DR: SPEC TYPE: Surgical DEPT: S [...] A2 - Frozen section remnant?FSA 2 Specimen: [id number] Received: 08/28/23 Status: MANJIT Tiana Num: [id number] Spec Type: Surgical Subm Dr: Gerry Nelson DO Tissues: A Skin-Other than Cyst, tag, debridement or plastic repair (SCALP) Procedures: , Gross/Micro L4, Frozen SectionLu, Add/4, FS Patient: Eugenio Crews [id number] (Continued) Specimen: [id number] Received: 08/28/23 (Continued) Gross Description (Continued) Signed (signature on file) Mel Proctor MD 08/29/23 1356 Specimen: [id number] Received: 08/28/23 Status: MANJIT Caballero Num: [id number] Spec Type: Surgical Subm Dr: Gerry Nelson DO Tissues: A Skin-Other than Cyst, tag, debridement or plastic repair (SCALP) Procedures: HE/, Gross/Micro L4, Frozen Section, Lu [place], Add/4, FS Patient: Eugenio Crews [id number] (Continued) Specimen: [id number] Received: 08/28/23 (Continued) Gross Description (Continued) A3 - Frozen section remnant?FSA 3 A4 - Frozen section remnant?FSA 4 A5 - Frozen section remnant?FSA 5 A6 - 12:00 half of specimen A7 - 6:00 half of specimen Intraoperative Diagnosis A. Recurrent squamous cell carcinoma of scalp: - Margins are negative for malignancy. Reported by Dr. Proctor at 2:05 PM 08/28/2023 CPT Codes 83678, 11312, [id number] Specimen: [id number] Received: 08/28/23 Status: MANJIT Caballero Num: [id number] Spec Type: Surgical Subm Dr: Gerry Nelson DO Tissues: A Skin-Other than Cyst, tag, debridement or plastic repair (SCALP) Procedures: HE/, Gross/Micro L4, Frozen Section, Lu [place], Add/4, FS /10 Patient: Eugenio Crews [id number] (Continued) Signed (signature on file)___ (more content not included)... Normal [facility] No Panel InformationOrdered By: Gerry Nelson on 08-28-2023 Bedside Glucose Comment Glu2: cleaned meter [facility] Basic Metabolic Panelon 08-03 Anion gap [Moles/Vol] 12.7 mmol/L Normal 6.0-15.0 [facility] Comment on above: Performed By: #### B MP, CBC #### [facility] [address] [place] [address] [place] Calcium [Mass/Vol] 8.7 mg/dL Normal 8.6-10.3 [facility] Comment on above: Result Comment: PERF ORMED BY: [place] [address] PATHOLOGIST PAPER MACHINE TENDER AMANDA ZAMORA M.D. Performed By: #### B MP, CBC #### [facility] [address] [place] [address] [place] Chloride [Moles/Vol] 109 mmol/L High 98-107 [facility] Comment on above: Performed By: #### B MP, CBC #### [facility] [address] [place] [address] [place] CO2 [Moles/Vol] 22.0 mmol/L Normal 21.0-31.0 [facility] Comment on above: Performed By: #### B MP, CBC #### [facility] [address] [place] [address] [place] Creatinine [Mass/Vol] 2.90 mg/dL High 0.70-1.30 [facility] Comment on above: Performed By: #### B MP, CBC #### [facility] [address] [place] [address] [place] GFR/1.73 sq M.predicted MDRD (S/P/Bld) [Vol rate/Area] 21.738 mL/min/{1.73_m2} Normal [facility] Comment on above: Performed By: #### B MP, CBC #### [facility] [address] [place] [address] [place] Glucose [Mass/Vol] 227 mg/dL High 70-100 [facility] Comment on above: Result Comment: [facility] Glucose Reference Range is dependent on time and content of last meal. Glucose of more than 200 mg/dL in a nonstressed, ambulatory subject supports the diagnosis of Diabetes Mellitus. ADA recommended reference range Performed By: #### B MP, CBC #### [facility] [address] Potassium [Moles/Vol] 4.7 mmol/L Normal 3.5-5.1 [facility] Comment on above: Performed By: #### B MP, CBC #### [facility] [address] [place] [address] [place] Sodium [Moles/Vol] 139 mmol/L Normal 136-145 [facility] Comment on above: Performed By: #### B MP, CBC #### [facility] [address] [place] [address] [place] Urea nitrogen [Mass/Vol] 43 mg/dL High 7-25 [facility] Comment on above: Performed By: #### B MP, CBC #### [facility] [address] [place] [address] [place] Basophils Auto (Bld) [#/Vol] Ordered By: Gerry Nleson on 08-22-2023 Basophils (Bld) [#/Vol] 0.0 10*3/uL 0.0-0.2 [facility] Basophils/100 WBC Auto (Bld) Ordered By: Gerry Nelson on 08-22-2023 Basophils/100 WBC (Bld) 0.4 % . [facility] Calcium [Mass/volume] in Ser um or PlasmaOrdered By: Gerry Nelson on 08-22-2023 Calcium [Mass/Vol] 8.7 mg/dL 8.6-10.3 [facility] Carbon dioxide, total [Moles /volume] in Serum or PlasmaOrdered By: Gerry Nelson on 08-22-2023 CO2 [Moles/Vol] 22.0 mmol/L 21.0-31.0 [facility] Chloride [Moles/volume] in S hai or PlasmaOrdered By: Gerry Nelson on 08-22-2023 Chloride [Moles/Vol] 109 mmol/L 98-107 [facility] Complete Blood Count Auto Di ffon 08-22-2023 Basophils (Bld) [#/Vol] 0.0 10*3/uL Normal 0.0-0.2 [facility] Comment on above: Result Comment: PERF ORMED BY: [place] [address] PATHOLOGIST PAPER MACHINE TENDER AMANDA ZAMORA M.D. Performed By: #### B MP, CBC #### [address] Basophils/100 WBC (Bld) 0.4 % Normal . [facility] Comment on above: Performed By: #### B MP, CBC #### [address] Eosinophils (Bld) [#/Vol] 0.1 10*3/uL Normal 0.0-0.45 [facility] Comment on above: Performed By: #### B MP, CBC #### [address] Eosinophils/100 WBC (Bld) 2.4 % Normal . [facility] Comment on above: Performed By: #### B MP, CBC #### [address] Erythrocyte distribution width (RBC) [Ratio] 12.7 % Normal 12.0-14.8 [facility] Comment on above: Performed By: #### B MP, CBC #### [place] [address] [place] Hematocrit (Bld) [Volume fraction] 33.6 % Low 38.8-50.0 [facility] Comment on above: Performed By: #### B MP, CBC #### [address] Hemoglobin (Bld) [Mass/Vol] 11.4 g/dL Low 13.0-17.0 [facility] Comment on above: Performed By: #### B MP, CBC #### [address] Lymphocytes (Bld) [#/Vol] 0.9 10*3/uL Low 1.00-4.8 [facility] Comment on above: Performed By: #### B MP, CBC #### [address] Lymphocytes/100 WBC (Bld) 14.3 % Normal . [facility] Comment on above: Performed By: #### B MP, CBC #### [address] MCH (RBC) [Entitic mass] 32.7 pg Normal 27.5-35.2 [facility] Comment on above: Performed By: #### B MP, CBC #### [address] MCV (RBC) [Entitic vol] 96.1 fL Normal 83.5-101 [facility] Comment on above: Performed By: #### B MP, CBC #### [address] Mean Corpuscular HGB Conc 34.0 g/dL Normal 32.5-35.6 [facility] Comment on above: Performed By: #### B MP, CBC #### [address] Monocytes (Bld) [#/Vol] 0.5 10*3/uL Normal 0.0-0.8 [facility] Comment on above: Performed By: #### B MP, CBC #### [place] [address] [place] Monocytes/100 WBC (Bld) 7.4 % Normal . [facility] Comment on above: Performed By: #### B MP, CBC #### [facility] [address] Neutrophils (Bld) [#/Vol] 4.7 10*3/uL Normal 1.8-7.7 [facility] Comment on above: Performed By: #### B MP, CBC #### [facility] [address] Neutrophils/100 WBC (Bld) 75.5 % Normal . [facility] Comment on above: Performed By: #### B MP, CBC #### [facility] [address] NRBC% 0.0 /100{WBC} Normal 0-0.5 [facility] Comment on above: Performed By: #### B MP, CBC #### [facility] [address] Platelet mean volume (Bld) [Entitic vol] 7.2 fL Normal 6.6-10.1 [facility] Comment on above: Performed By: #### B MP, CBC #### [facility] [address] [place] [address] [place] Platelets (Bld) [#/Vol] 165 10*3/uL Normal 150-450 [facility] Comment on above: Performed By: #### B MP, CBC #### [facility] [address] [place] [address] [place] RBC (Bld) [#/Vol] 3.50 10*6/uL Low 3.90-5.60 [facility] Comment on above: Performed By: #### B MP, CBC #### [facility] [address] [place] [address] [place] WBC (Bld) [#/Vol] 6.2 10*3/uL Normal 4.1-10.5 [facility] Comment on above: Performed By: #### B MP, CBC #### [facility] [address] [place] [address] [place] Creatinine [Mass/volume] in Serum or PlasmaOrdered By: Gerry Nelson on 08-22-2023 Creatinine [Mass/Vol] 2.90 mg/dL 0.70-1.30 [facility] ECG 12 lead ECGon 08-22-2023 ECG 12 lead ECG [facility] [place] [address] Electrocardiograph Report Signed Patient: Eugenio Crews MR#: [id number] : 1945 Acct:[id number] Age/Sex: 78 / M ADM Date: 08/22/23 Loc: PS Room: Type: [facility] Attending Dr: Gerry Nelson DO Ordering Provider: [...] previous ECGs available Confirmed by Joni Marrero ([id number]) on 08/23/2023 11:21:57 AM Referred By: NOHEMI Electronically Signed By:Joni Marrero Transcribed By: MUS Signed By Joni Marrero MD 08/23/23 1122 Normal [facility] Eosinophils Auto (Bld) [#/Vo l]Ordered By: Gerry Nelson on 08-22-2023 Eosinophils (Bld) [#/Vol] 0.1 10*3/uL 0.0-0.45 [facility] Eosinophils/100 WBC Auto (Bl d)Ordered By: Gerry Nelson on 08-22-2023 Eosinophils/100 WBC (Bld) 2.4 % . [facility] Erythrocyte distribution wid th Auto (RBC) [Ratio]Ordered By: Gerry Nelson on 08-22-2023 Erythrocyte distribution width (RBC) [Ratio] 12.7 % 12.0-14.8 [facility] Glucose [Mass/volume] in Ser um or PlasmaOrdered By: Gerry Nelson on 08-22-2023 Glucose [Mass/Vol] 227 mg/dL 70-100 [facility] Comment on above: ADA recommended refe rence rangeRandom Glucose Reference Range is dependent on time and content of last meal. Glucose of more than 200 mg/dL in a nonstressed, ambulatory subject supports the diagnosis of Diabetes Mellitus. Hematocrit Auto (Bld) [Volum e fraction]Ordered By: Gerry Nelson on 08-22-2023 Hematocrit (Bld) [Volume fraction] 33.6 % 38.8-50.0 [facility] Hemoglobin [Mass/volume] in BloodOrdered By: Gerry Nelson on 08-22-2023 Hemoglobin (Bld) [Mass/Vol] 11.4 g/dL 13.0-17.0 [facility] Leukocytes [#/volume] correc yoseph for nucleated erythrocytes in Blood by Automated counOrdered By: Gerry Nelson on 08-22-2023 WBC corrected for nucl RBC Auto (Bld) [#/Vol] 6.2 10*3/uL 4.1-10.5 [facility] Lymphocytes Auto (Bld) [#/Vo l]Ordered By: Gerry Nelson on 08-22-2023 Lymphocytes (Bld) [#/Vol] 0.9 10*3/uL 1.00-4.8 [facility] Lymphocytes/100 WBC Auto (Bl d)Ordered By: Gerry Nelson on 08-22-2023 Lymphocytes/100 WBC (Bld) 14.3 % . [facility] MCH Auto (RBC) [Entitic mass ]Ordered By: Gerry Nelson on 08-22-2023 MCH (RBC) [Entitic mass] 32.7 pg 27.5-35.2 [facility] MCHC Auto (RBC) [Mass/Vol]Or dered By: Gerry Nelson on 08-22-2023 MCHC (RBC) [Mass/Vol] 34.0 g/dL 32.5-35.6 [facility] MCV Auto (RBC) [Entitic vol] Ordered By: Gerry Nelson on 08-22-2023 MCV (RBC) [Entitic vol] 96.1 fL 83.5-101 [facility] Monocytes Auto (Bld) [#/Vol] Ordered By: Gerry Nelson on 08-22-2023 Monocytes (Bld) [#/Vol] 0.5 10*3/uL 0.0-0.8 [facility] Monocytes/100 WBC Auto (Bld) Ordered By: Gerry Nelson on 08-22-2023 Monocytes/100 WBC (Bld) 7.4 % . [facility] Neutrophils Auto (Bld) [#/Vo l]Ordered By: Gerry Nelson on 08-22-2023 Neutrophils (Bld) [#/Vol] 4.7 10*3/uL 1.8-7.7 [facility] Neutrophils/100 WBC Auto (Bl d)Ordered By: Gerry Nelson on 08-22-2023 Neutrophils/100 WBC (Bld) 75.5 % . [facility] No Panel InformationOrdered By: Gerry Nelson on 08-22-2023 Estimated GFR (CKD-EPI) 21.738 mL/Min [facility] Creatinine Clearance (Chem N/A [facility] Nucleated erythrocytes [Pres ence] in Blood by Automated countOrdered By: Gerry Nelson on 08-22-2023 Nucleated RBC Auto Ql (Bld) 0.0 /100{WBC} 0-0.5 [facility] Platelet mean volume Auto (B ld) [Entitic vol]Ordered By: Gerry Nelson on 08-22-2023 Platelet mean volume (Bld) [Entitic vol] 7.2 fL 6.6-10.1 [facility] Platelets Auto (Bld) [#/Vol] Ordered By: Gerry Nelson on 08-22-2023 Platelets (Bld) [#/Vol] 165 10*3/uL 150-450 [facility] Potassium [Moles/volume] in Serum or PlasmaOrdered By: Gerry Nelson on 08-22-2023 Potassium [Moles/Vol] 4.7 mmol/L 3.5-5.1 [facility] RBC Auto (Bld) [#/Vol]Ordere d By: Gerry Nelson on 08-22-2023 RBC (Bld) [#/Vol] 3.50 10*6/uL 3.90-5.60 [facility] Serum or plasma anion gap de terminationOrdered By: Gerry Nelson on 08-22-2023 Anion gap [Moles/Vol] 12.7 mmol/L 6.0-15.0 [facility] Sodium [Moles/volume] in Ser um or PlasmaOrdered By: Gerry Nelson on 08-22-2023 Sodium [Moles/Vol] 139 mmol/L 136-145 [facility] Urea nitrogen [Mass/volume] in Serum or PlasmaOrdered By: Gerry Nelson on 08-22-2023 Urea nitrogen [Mass/Vol] 43 mg/dL 7-25 [facility] WBC Auto (Bld) [#/Vol]Ordere d By: Gerry Nelson on 08-22-2023 WBC (Bld) [#/Vol] 6.2 10*3/uL 4.1-10.5 [facility] Glucose mean value [Mass/vol ume] in Blood Estimated from glycated hemoglobinon 08-06-2023 Average glucose Estimated from glycated hemoglobin (Bld) [Mass/Vol] 163 mg/dL [facility] Laboratory - Hematology and Cell countson 08-06-2023 HbA1c (Bld) [Mass fraction] 7.3 % 4.5-6.2 [facility] Comment on above: ADA RECOMMENDED LIMI T 4.0 - 6.0ADA THERAPEUTIC TARGET < 7.0ACTION SUGGESTED> 7.0 CBC AUTO DIFFon 04-05-2022 BASO # 0.0 103/ul Normal 0.0-0.1 [facility] Comment on above: Performed By: #### C BC #### [facility] [address] [address] [address] Dave Duffy Basophils/100 WBC (Bld) 0.2 % Normal 0.2-2.0 [facility] Comment on above: Performed By: #### C BC #### [facility] [address] [address] [address] Dave Duffy EO # 0.2 103/ul Normal 0.0-0.7 [facility] Comment on above: Performed By: #### C BC #### [facility] [address] [place] [address] Dr. Dave Duffy Eosinophils/100 WBC (Bld) 2.5 % Normal 0.9-7.0 [facility] Comment on above: Performed By: #### C BC #### [facility] [address] [place] [address] Dr. Dave Duffy Erythrocyte distribution width (RBC) [Ratio] 12.3 % Normal 11.0-15.0 [facility] Comment on above: Performed By: #### C BC #### [facility] [address] [place] [address] Dr. Dave Duffy Hematocrit (Bld) [Volume fraction] 32.8 % Critically low 42.0-54.0 [facility] Comment on above: Performed By: #### C BC #### [facility] [address] [place] [address] Dr. Dave Duffy Hemoglobin (Bld) [Mass/Vol] 11.4 g/dL Critically low 14.0-18.0 [facility] Comment on above: Performed By: #### C BC #### [facility] [address] [place] [address] Dr. aDve Duffy IG # 0.03 10e3/ul Normal 0.00-0.03 [facility] Comment on above: Performed By: #### C BC #### [facility] [address] [place] [address] Dr. Dave Duffy IG % 0.5 % Normal 0.0-0.5 [facility] Comment on above: Performed By: #### C BC #### [facility] [address] [place] [address] Dr. Dave Duffy LYMPH # 1.2 103/ul Normal 1.2-3.8 [facility] Comment on above: Performed By: #### C BC #### [facility] [address] [place] [address] Dr. Dave Duffy Lymphocytes/100 WBC (Bld) 18.9 % Critically low 20.5-60.0 [facility] Comment on above: Performed By: #### C BC #### [facility] [address] [place] [address] Dr. Dave Duffy MANUAL DIFF REQ NO Normal [facility] Comment on above: Performed By: #### C BC #### [facility] [address] [place] [address] Dr. Dave Duffy MCH (RBC) [Entitic mass] 32.8 pg Normal 25.9-34.0 [facility] Comment on above: Performed By: #### C BC #### [facility] [address] [place] [address] Dr. Dave Duffy MCHC (RBC) [Mass/Vol] 34.8 g/dL Normal 29.9-35.2 [facility] Comment on above: Performed By: #### C BC #### [facility] [address] [place] [address] Dr. Dave Duffy MCV (RBC) [Entitic vol] 94.3 fL Critically high 80.0-94 .0 [facility] Comment on above: Performed By: #### C BC #### [facility] [address] [place] [address] Dr. Dave Duffy MONO # 0.5 103/ul Normal 0.3-0.8 [facility] Comment on above: Performed By: #### C BC #### [facility] [address] [place] [address] Dr. Dave Duffy Monocytes/100 WBC (Bld) 8.9 % Normal 1.7-12.0 [facility] Comment on above: Performed By: #### C BC #### [facility] [address] [place] [address] Dr. Dave Duffy NEUT # 4.2 103/ul Normal 1.4-6.5 [facility] Comment on above: Performed By: #### C BC #### [facility] [address] [place] [address] Dr. Dave Duffy Neutrophils/100 WBC (Bld) 69.0 % Normal 43.0-75.0 [facility] Comment on above: Performed By: #### C BC #### [facility] [address] [address] [address] Dave Duffy Platelet mean volume (Bld) [Entitic vol] 8.7 fL Critically low 9.5-13.5 [facility] Comment on above: Performed By: #### C BC #### [facility] [address] [address] [address] Dave Duffy PLT 166 103/ul Normal 150-450 [facility] Comment on above: Performed By: #### C BC #### [facility] [address] [address] [address] Dave Duffy RBC 3.48 106/ul Critically low 4.70-6.10 [facility] Comment on above: Performed By: #### C BC #### [facility] [address] [place] [address] Dr. Dave Duffy WBC 6.1 103/ul Normal 4.0-11.0 [facility] Comment on above: Performed By: #### C BC #### [facility] [address] [place] [address] Dr. Dave Duffy LIPID PROFILEon 04-05-2022 CHOL-HDL RATIO NORM SEE BELOW Normal [facility] Comment on above: Result Comment: 3.3 - 4.4 LOW RISK 4.4 -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 BYRDER Not Available Start: 02-05-2024 End: 02-05-[address] [facility] Work Phone: Start: 02-05-2024 End: 02-05-2024 Patient encounter procedure [facility] Work Phone: Start: 12-31-2023 End: 12-31-[address] [facility] Work Phone: Start: 12-31-2023 End: 12-31-2023 Patient encounter procedure [facility] Work Phone: Start: 12-19-2023 Non-patient / Non-visit [facility] Work Phone: Start: 11-28-2023 End: 11-28-[address] [facility] Work Phone: Start: 11-28-2023 End: 11-28-2023 Patient encounter procedure [facility] Work Phone: Start: 11-02-2023 End: 11-02-2023 ambulatory DO Gerry Ball Work Phone: [facility] Work Phone: Start: 11-02-2023 End: 11-02-2023 Patient encounter procedure DO Gerry Ball Work Phone: [facility] Work Phone: Start: 10-31-2023 End: 10-31-2023 ambulatory GERRY W MURCEK Not Available Start: 09-19-2023 End: 09-19-2023 ambulatory GERRY W MURCEK Not Available Start: 09-12-2023 End: 09-12-2023 ambulatory DO Gerry Ball Work Phone: [facility] Work Phone: Start: 09-12-2023 End: 09-12-2023 Patient encounter procedure DO Gerry Ball Work Phone: [facility] Work Phone: Start: 09-05-2023 End: 09-05-2023 ambulatory GERRY W MURCEK Not Available Start: 08-29-2023 End: 08-29-2023 ambulatory GERRY W MURCEK Not Available Start: 08-28-2023 End: 08-28-2023 ambulatory Gerry Murcek Facility:[facility] Start: 08-28-2023 End: 08-28-2023 Admission to same day surgery center DO Gerry Ball Work Phone: [facility] [place] Start: 08-28-2023 End: 08-28-2023 ambulatory DO Gerry Ball Work Phone: [facility] Work Phone: Start: 08-22-2023 End: 08-22-2023 ambulatory Gerry Nelson Facility:[facility] Start: 08-22-2023 Encounter for preprocedural laboratory examination Gerry Nelson [facility] Start: 08-22-2023 End: 08-22-2023 ambulatory DO Gerry Chang Work Phone: [facility] Work Phone: Start: 08-22-2023 End: 08-22-2023 Patient encounter procedure DO Gerry Chang Work Phone: [facility] Work Phone: Start: 08-22-2023 End: 08-22-2023 ambulatory GERRY NELSON Not Available Start: 08-10-2023 End: 08-10-2023 Patient encounter procedure DO Gerry Chang Work Phone: [facility] Work Phone: Start: 08-06-2023 Non-patient / Non-visit DO Hayes Chang Work Phone: [facility] Work Phone: Start: 07-30-2023 End: 07-30-[address] [facility] Work Phone: Start: 07-30-2023 End: 07-30-2023 Patient encounter procedure [facility] Work Phone: Start: 07-27-2023 Non-patient / Non-visit [facility] Work Phone: Start: 07-25-2023 End: 07-25-2023 ambulatory TALIB Leon BRIA Not Available Start: 07-03-2023 End: 07-03-2023 ambulatory Gerry Chang Other [facility] [employer] Other Start: 07-03-2023 Nursing evaluation o f patient and report [facility] Start: 05-22-2023 End: 05-22-2023 ambulatory ROCKY HERNANDEZ Not Available Start: 03-29-2023 End: 03-29-2023 ambulatory Gerry Chang Other [employer] Other Start: 03-29-2023 Telephone encounter Gerry [facility] Start: 03-27-2023 End: 03-27-2023 ambulatory Gerry Chang Other [employer] Other Start: 03-27-2023 Patient encounter procedure Gerry Chang [facility] Start: 03-02-2023 End: 03-02-2023 ambulatory Gerry Chang Other [employer] Other Start: 03-02-2023 Office outpatient vi sit 15 minutes Gerry Chang [facility] Start: 03-02-2023 Telephone encounter Gerry Chang [facility] Start: 02-06-2023 End: 02-06-2023 ambulatory Gerry Chang Other [employer] Other Start: 02-06-2023 Nursing evaluation o f patient and report Gerry Chang [facility] Start: 02-06-2023 Telephone encounter Gerry Chang [facility] Start: 01-01-2023 End: 01-01-2023 ambulatory Gerry Chang Other [employer] Other Start: 01-01-2023 Nursing evaluation o f patient and report Gerry Chang [facility] Start: 11-27-2022 End: 11-27-2022 ambulatory Gerry Chang Other [employer] Other Start: 11-27-2022 Nursing evaluation o f patient and report Gerry Chang [facility] Start: 10-18-2022 End: 10-18-[address] GERRY CHANG Facility:[facility] Start: 09-06-2022 End: 09-06-[address] GERRY CHANG Facility:[facility] Start: 09-04-2022 End: 09-04-2022 ambulatory Gerry Chang Other [employer] Other Start: 09-04-2022 Telephone encounter Gerry Chang [facility] Start: 08-28-2022 End: 08-28-2022 ambulatory Gerry Chang Other [employer] Other Start: 08-28-2022 Nursing evaluation o f patient and report Gerry Chang [facility] Start: 07-27-2022 End: 07-27-2022 ambulatory Gerry Chang Other [employer] Other Start: 07-27-2022 Nursing evaluation o f patient and report Gerry Chang [facility] Start: 07-26-2022 End: 07-26-[address] GERRY CHANG Facility:[facility] Start: 07-07-2022 End: 07-07-2022 ambulatory Gerry Chang Other [employer] Other Start: 07-07-2022 Telephone encounter Gerry PICHARDO [facility] Start: 06-26-2022 End: 06-26-2022 ambulatory Gerry Chang Other [employer] Other Start: 06-26-2022 Nursing evaluation o f patient and report Gerry Chang [facility] Start: 06-14-2022 End: 06-14-[address] GERRY CHANG Facility:[facility] Start: 05-17-2022 End: 05-17-[address] GERRY CHANG Facility:[facility] Start: 05-03-2022 End: 05-03-[address] GERRY CHANG Facility:[facility] Start: 04-05-2022 End: 04-06-[address] GERRY CHANG Facility:[facility] Start: 04-03-2022 End: 04-03-2022 Patient encounter procedure Jenaro HANSEN [facility] Start: 03-27-2022 Adult health examination Carlitos Chang Other [employer] Other Start: 03-27-2022 Pre-procedure evalua tion check Gerry Chang Other [facility] [employer] Other Start: 03-22-[address] GERRY CHANG Facili ty:[facility] Start: 03-13-2022 Telephone encounter Kendall Alston gwendolyn MEJIAS.FULL STACK JAVA DEVELOPER Work Phone: Hematology/Oncology Comment on above: Lab [...] Start: 03-23-2021 End: 03-23-2021 ambulatory MARYJO KIDD [facility] Procedures Date Procedure Procedure Detail Performing Clinician Start: 03-21-2024 CRYOTHERAPY SKIN LESION Ashley Manzano FREIGHT INSPECTOR-FULL STACK JAVA DEVELOPER Work Phone: Start: 08-28-2023 Excision of lesion of cheek DO Gerry Chang Work Phone: Start: 03-03-[address] GERRY CHANG Comment on above: Performed By: #### PSAD #### [facility] [address] [address] [address] Dave Duffy Start: 11-25-2020 Adult depression screening assessment Aileen Jenkins RN Start: 09-23-2020 Colonoscopy Aileen Jenkins RN Start: 06-15-2014 Cystoscopy Jenaro HANSEN Start: 06-26-2012 Urodynamic studies Jenaro HANSEN Start: 06-14-2012 Cystoscopy Jenaro HANSEN Start: 06-04-2011 Cholecystectomy Jenaro HANSEN Colonoscopy Jenaro HANSEN Depression screening Christi bonilla [facility] Other Esophagogastroduodenoscopy P kaley HANSEN H/O: artificial joint [facility] [place] Other H/O: artificial joint [facility] [place] Other Laparoscopy Jenaro HANSEN Partial resection of colon P kaley HANSEN Total knee replacement Patri puneet JADE Transurethral biopsy prostate Jenaro HANSEN Transurethral prostatectomy Jenaro HANSEN Plan of Treatment Date Care Activity Detail Author Start: 04-02-2025 End: 04-02-2025 Patient encounter procedure 04/02/2025 8:30 AM EDT Office Visit [facility] [address] [place] [address] Ashley Manzano, FREIGHT INSPECTOR-FULL STACK JAVA DEVELOPER [address] [place] [address] [facility] Start: 03-21-2024 End: 03-21-2024 Patient encounter procedure 03/21/2024 8:30 AM EDT Office Visit [facility] [address] [place] [phone] Ashley Manzano, FREIGHT INSPECTOR-FULL STACK JAVA DEVELOPER [address] [place] [address] Arrived [facility] Comment on above: Arrived Start: 02-03-2024 Influenza vaccination Influenza Vacc ine (#1) [facility] Start: 08-28-2023 [facility] Start: 08-28-2023 [facility] Start: 03-23-2022 COLORECTAL CANCER SCREENING COLORECTAL CANCER SCREENING [facility] Start: 03-23-2022 FECAL OCCULT BLOOD FECAL OCCULT BLOO D [facility] Start: 03-13-2022 End: 05-13-2022 CBC W Auto Differential panel - Blood CBC + DIFF Lab Routine Non-Hodgkin's lymphoma, unspecified body region, unspecified non-Hodgkin lymphoma type (HCC) Expected: 03/13/2022, Expires: 05/13/2022 [facility] Work Phone: Comment on above: Expected: 03/13/2022 , Expires: 05/13/2022 Start: 03-13-2022 End: 05-13-2022 Comprehensive metabolic 2000 panel - Serum or Plasma COMP METABOLIC PANEL Lab Routine Non-Hodgkin's lymphoma, unspecified body region, unspecified non-Hodgkin lymphoma type (HCC) Expected: 03/13/2022, Expires: 05/13/2022 [facility] Work Phone: Comment on above: Expected: 03/13/2022 , Expires: 05/13/2022 Start: 03-13-2022 End: 05-13-2022 Lactate dehydrogenase [Enzymatic activity/volume] in Serum or Plasma LD LACTATE DEHYDRO Lab Routine Non-Hodgkin's lymphoma, unspecified body region, unspecified non-Hodgkin lymphoma type (HCC) Expected: 03/13/2022, Expires: 05/13/2022 [facility] Work Phone: Comment on above: Expected: 03/13/2022 , Expires: 05/13/2022 Start: 02-02-2022 Influenza vaccination INFLUENZA (#1) [facility] Start: 11-25-2021 Adult depression screening assessment DEPRESSION SCREENING [facility] Start: 09-23-2021 Colonoscopy COLONOSCOPY [facility] Start: 06-04-2021 ADVANCE DIRECTIVE DISCUSSION ADVANCE DIRECTIVE DISCUSSION [facility] Start: 06-04-2021 DEPRESSION ASSESSMENT DEPRESSION ASS ESSMENT [facility] Start: 04-11-2021 COVID-19 VACCINE (4 - Booster for Pfizer series) COVID-19 VACCINE (4 - Booster for Pfizer series) [facility] Start: 1992 COLOGUARD (FIT-DNA) COLOGUARD (FIT-D NA) [facility] Start: [address] COLONOGRAPHY [facility] Start: 1992 SIGMOIDOSCOPY SIGMOIDOSCOPY [facility] Start: 1966 Urine microalbumin profile DTAP,TDAP,TD (1 - Tdap) [facility] Start: 1965 ANNUAL PCP TEAM ORNAMENTAL IRONWORKER ALETHA DISEASE VISIT ANNUAL PCP TEAM CHRONIC DISEASE VISIT [facility] Start: 1965 Hepatitis B surface antibody level LDL CHOLESTEROL [facility] Start: 1965 HEPATITIS C SCREENING HEPATITIS C SC REENING [facility] Start: 1957 3 comp foot exam completed DIABETIC FOOT EXAM [facility] Start: 1957 Hepatitis C antibody , confirmatory test DILATED RETINAL EXAM [facility] Start: 1953 PNEUMOCOCCAL: 65+ (1 - PCV) PNEUMOCOCCAL: 65+ (1 - PCV) [facility] Start: 1952 Hemoglobin A1c/Hemoglobin.total in Blood HBA1C [facility] Comprehensive metabo lic 1999 panel - Serum or Plasma [facility] Patient referral [facility] Work Phone: Renal function 1999 panel - Serum or Plasma [facility] Immunizations Immunization Date Immunization Notes Care Provider Fa cility 02-13-2024 influenza virus vaccine, unspecified formulation Ashley Manzano FREIGHT INSPECTOR-FULL STACK JAVA DEVELOPER Work Phone: [facility] 03-13-2023 COVID-19 Vaccine Pfi zer - Documentation Purposes Only Gerry Chang Other [facility] 03-13-2023 influenza virus vaccine, unspecified formulation [facility] 03-13-2023 Influenza, Seasonal, Quadrivalent, Adjuvanted Ashley Manzano FREIGHT INSPECTOR-FULL STACK JAVA DEVELOPER Work Phone: [facility] 03-13-2023 influenza, high dose seasonal, preservative-free Gerry Chang Other [employer] [facility] [employer] Other 02-23-2022 influenza virus vaccine, split virus (incl. purified surface antigen) Gerry Chang Other [facility] [employer] Other 02-23-2022 influenza virus vaccine, unspecified formulation [facility] 02-23-2022 Influenza, Seasonal, Quadrivalent, Adjuvanted Ashley Manzano FREIGHT INSPECTOR-FULL STACK JAVA DEVELOPER Work Phone: [facility] 02-23-2022 SARS-CoV-2 (COVID-19 ) [id number] Jenaro HANSEN [facility] 09-13-2021 SARS-CoV-2 mRNA (coekiicvjga-whqr-fwtco se) vaccine Jenaro HANSEN [facility] 02-25-2021 influenza virus vaccine, split virus (incl. purified surface antigen) Gerry Chang Other [employer] Other 02-25-2021 influenza virus vaccine, unspecified formulation [facility] 02-25-2021 Seasonal trivalent influenza vaccine, adjuvanted, preservative free Aileen Jenkins RN [facility] 01-17-2021 SARS-CoV-2 (COVID-19 ) mRNA BNT-162b2 vax Jenaro HANSEN [facility] Comment on above: Result Comment: 2023: [id number] 07-28-2020 COVID-19 Vaccine Pfi zer - Documentation Purposes Only Gerry Chang Other [facility] Comment on above: Result Comment: 2023: [id number] 07-07-2020 COVID-19 Vaccine Pfi zer - Documentation Purposes Only Gerry Chang Other [facility] Comment on above: Result Comment: 2023: [id number] 02-05-2020 influenza virus vaccine, unspecified formulation Jenaro HANSEN [facility] 02-05-2020 influenza, high-dose , quadrivalent vaccine (FLUZONE HIGH DOSE QUADRIVALENT) Aileen Jenkins RN [facility] 08-17-2019 zoster vaccine recombinant Aileen Jenkins RN [facility] 06-01-2019 zoster vaccine recombinant Aileen Jenkins RN [facility] 03-12-2019 influenza virus vaccine, split virus (incl. purified surface antigen) Gerry Chang Other [facility] [employer] Other 03-12-2019 influenza virus vaccine, unspecified formulation [facility] 03-26-2018 influenza virus vaccine, split virus (incl. purified surface antigen) Gerry Chang Other [facility] [employer] Other 03-26-2018 influenza virus vaccine, unspecified formulation [facility] 03-26-2018 Seasonal trivalent influenza vaccine, adjuvanted, preservative free Aileen Jenkins RN [facility] 11-16-2017 diphtheria, tetanus toxoids and acellular pertussis vaccine, unspecified formulation Gerry Chang Other [facility] 04-12-2017 influenza virus vaccine, split virus (incl. purified surface antigen) Gerry Chang Other [employer] [facility] [employer] Other 04-12-2017 influenza virus vaccine, unspecified formulation [facility] 04-12-2017 influenza, high dose seasonal, preservative-free Aileen Jenkins RN [facility] 03-15-2016 influenza virus vaccine, split virus (incl. purified surface antigen) Gerry Chang Other [facility] [employer] Other 03-15-2016 influenza virus vaccine, unspecified formulation [facility] 03-15-2016 influenza, high dose seasonal, preservative-free Aileen Jenkins RN [facility] 04-09-2015 pneumococcal conjuga te vaccine, 13 valent Gerry Chang Other [facility] 04-06-2015 influenza virus vaccine, split virus (incl. purified surface antigen) Gerry Chang Other [facility] [employer] Other 04-06-2015 influenza virus vaccine, unspecified formulation [facility] 04-06-2015 influenza, high dose seasonal, preservative-free Aileen Jenkins RN [facility] 03-16-2014 pneumococcal Conjuga te, unspecified formulation; Translations: [Need for prophylactic vaccination against Streptococcus pneumoniae (pneumococcus)] Gerry Chang Other [facility] [employer] Other 03-16-2014 pneumococcal polysaccharide vaccine, 23 valent Gerry Chang Other [facility] 03-16-2014 tetanus and diphther ia toxoids, adsorbed, preservative free, for adult use (5 Lf of tetanus toxoid and 2 Lf of diphtheria toxoid) Gerry Chang Other [facility] 04-10-2013 zoster vaccine, live Aileen Bonilla [facility] 03-26-2002 diphtheria, tetanus toxoids and acellular pertussis vaccine, unspecified formulation Gerry Chang Other [facility] Payers Date Payer Category Payer Private Health Insurance [id number] 2004 Medicare [id number] 1959 Medicare [id number] 1959 Self-pay 1959 Unknown [id number] 1947 Unknown [id number] 2.16.840.1.135215.3.579.2. 593 1947 Unknown [id number] 2.16.840.1.230809.3.579.2. 593 1947 Unknown [id number] 2.16.840.1.016029.3.579.2. 593 1947 Unknown [id number] 2.16.840.1.281948.3.579.2. 593 1947 Unknown [id number] 2.16.840.1.256260.3.579.2. 593 1947 Unknown [id number] 2.16.840.1.945569.3.579.2. 593 1947 Unknown [id number] 2.16.840.1.333527.3.579.2. 593 1947 Unknown [id number] 2.16.840.1.660909.3.579.2. 593 1947 Unknown [id number] 2.16.840.1.224968.3.579.2. 593 1947 Unknown [id number] 2.16.840.1.025145.3.579.2. 593 1947 Unknown [id number] 2.16.840.1.577035.3.579.2. 593 1947 Unknown [id number] 2.16.840.1.430799.3.579.2. 593 1947 Unknown [id number] 2.16.840.1.070004.3.579.2. 593 1947 Unknown [id number] 2.16.840.1.382071.3.579.2. 593 1947 Unknown [id number] 2.16.840.1.037303.3.579.2. 593 1947 Unknown [id number] 2.16.840.1.757244.3.579.2. 593 1947 Unknown [id number] 2.16.840.1.729747.3.579.2. 593 1947 Unknown [id number] 2.16.840.1.029628.3.579.2. 593 1947 Unknown [id number] 2.16.840.1.520300.3.579.2. 1259 1947 Unknown [id number] 2.16.840.1.452272.3.579.2. 1259 1947 Unknown [id number] 2.16.840.1.026337.3.579.2. 1259 1947 Unknown [id number] 2.16.840.1.660333.3.579.2. 1259 1947 Unknown [id number] 2.16.840.1.786394.3.579.2. 1259 1947 Unknown [id number] 2.16.840.1.700196.3.579.2. 1259 1947 Unknown [id number] 2.16.840.1.309240.3.579.2. 1259 1947 Unknown [id number] 2.16.840.1.780707.3.579.2. 1259 1947 Unknown [id number] 2.16.840.1.565874.3.579.2. 727 1947 Unknown [id number] 2.16.840.1.561586.3.579.2. 727 Medicare Medicare Outpatient [id number] Private Health Insurance [facility] [id number] Unknown [id number] 2.16.840.1.589687.3.579.2. 593 Unknown [id number] 2.16.840.1.470555.3.579.2. 531 Unknown [id number] 2.16.840.1.134676.3.579.2. 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) [facility] Start: 1945 Sex Assigned At Not on file [facility] Start: 02-11-2022 End: 02-27-2022 Exposure to SARS-CoV-2 (event) Not sure [facility] Start: 10-31-2023 End: 03-21-2024 Sex Assigned At Male [facility] Start: 1945 Sex Assigned At Male [facility] Start: 10-31-2023 End: 03-21-2024 Alcoholic beverage intake Current drinker of alcohol (finding) [facility] Start: 10-31-2023 End: 03-21-2024 History of Social function [facility] Start: 03-06-2023 Alcohol Comment Monthly or less [facility] Tobacco smoking status Never [facility] Start: 06-13-2024 Sex Male (finding) [facility] [place] [facility] Equipment Procedure Code Equipment Code Equipment Original Text Equi pment Identifier Dates 1 each by Other route if needed Goals Date Patient Goal Desired Activity /State Functional Status Date Assessment Result Facility 04-14-2024 Functional Status N/A [facility] 04-03-2022 Functional Status N/A [facility] Clinical Notes 05-02-2019 to 04-14-2024 Note Date & Type Note Facility 04-14-2024 Hospital Discharge instructions Patient Education 04/14/2024 12:36:08 Prostate Cancer Screening Prostate Cancer Screening Prostate cancer screening is testing that is done to check for the presence of prostate cancer in men. The prostate gland is a walnut-sized gland that is located below the bladder and in front of the rectum in males. The function of the prostate is to add fluid to semen during ejaculation. Prostate cancer is one of the most common types of cancer in men. Who should have prostate cancer screening? Screening recommendations vary based on age and other risk factors, as well as between the professional organizations who make the recommendations. In general, screening is recommended if: You are age 50 to 70 and have an average risk for prostate cancer. You should talk with your health care provider about your need for screening and how often screening should be done. Because most prostate cancers are slow growing and will not cause , screening in this age group is generally reserved for men who have a 10- to 15-year life expectancy. You are younger than age 50, and you have these risk factors: ?Having a father, brother, or uncle who has been diagnosed with prostate cancer. The risk is higher if your family member's cancer occurred at an early age or if you have multiple family members with prostate cancer at an early age. ?Being a male who is Black or is of Grupo or sub-Saharan descent. In general, screening is not recommended if: You are younger than age 40. You are between the ages of 40 and 49 and you have no risk factors. You are 70 years of age or older. At this age, the risks that screening can cause are greater than the benefits that it may provide. If you are at high risk for prostate cancer, your health care provider may recommend that you have screenings more often or that you start screening at a younger age. How is screening for prostate cancer done? The recommended prostate cancer screening test is a blood test called the prostate-specific antigen (PSA) test. PSA is a protein that is made in the prostate. As you age, your prostate naturally produces more PSA. Abnormally high PSA levels may be caused by: Prostate cancer. An enlarged prostate that is not caused by cancer (benign prostatic hyperplasia, or BPH). This condition is very common in older men. A prostate gland infection (prostatitis) or urinary tract infection. Certain medicines such as male hormones (like testosterone) or other medicines that raise testosterone levels. A rectal exam may be done as part of prostate cancer screening to help provide information about the size of your prostate gland. When a rectal exam is performed, it should be done after the PSA level is drawn to avoid any effect on the results. Depending on the PSA results, you may need more tests, such as: A physical exam to check the size of your prostate gland, if not done as part of screening. Blood and imaging tests. A procedure to remove tissue samples from your prostate gland for testing (biopsy). This is the only way to know for certain if you have prostate cancer. What are the benefits of prostate cancer screening? Screening can help to identify cancer at an early stage, before symptoms start and when the cancer can be treated more easily. There is a small chance that screening may lower your risk of dying from prostate cancer. The chance is small because prostate cancer is a slow-growing cancer, and most men with prostate cancer from a different cause. What are the risks of prostate cancer screening? The main risk of prostate cancer screening is diagnosing and treating prostate cancer that would never have caused any symptoms or problems. This is called overdiagnosisand overtreatment. PSA screening cannot tell you if your PSA is high due to cancer or a different cause. A prostate biopsy is the only procedure to diagnose prostate cancer. Even the results of a biopsy may not tell you if your cancer needs to be treated. Slow-growing prostate cancer may not need any treatment other than monitoring, so diagnosing and treating it may cause unnecessary stress or other side effects. Questions to ask your health care provider When should I start prostate cancer screening? What is my risk for prostate cancer? How often do I need screening? What type of screening tests do I need? How do I get my test results? What do my results mean? Do I need treatment? Where to find more information The [place] [employer]: www.cancer.org [place] [employer]: www.auanet.org Contact a health care provider if: You have difficulty urinating. You have pain when you urinate or ejaculate. You have blood in your urine or semen. You have pain in your back or in the area of your prostate. Summary Prostate cancer is a common type of cancer in men. The prostate gland is located below the bladder and in front of the rectum. This gland adds fluid to semen during ejaculation. Prostate cancer screening may identify cancer at an early stage, when the cancer can be treated more easily and is less likely to have spread to other areas of the body. The prostate-specific antigen (PSA) test is the recommended screening test for prostate cancer, but it has associated risks. Discuss the risks and benefits of prostate cancer screening with your health care provider. If you are age 70 or older, the risks that screening can cause are greater than the benefits that it may provide. This information is not intended to replace advice given to you by your health care provider. Make sure you discuss any questions you have with your health care provider. Document Revised: 11/14/2021 Document Reviewed: 11/14/2021 [employer] Patient Education 2023 [employer]. Follow Up Care 04/08/2024 11:27:26 With:JADE DOYLE, Jenaro Roberto, URL Address: [facility] [address], [place] [address]- [id number] When: Unknown Comments:6 mos w/ PSA [facility] 04-14-2024 Note Urology Office/Clini c Note Chief Complaint referral HPI Staff 78 yo male re-referred by Dr. Chang for elevated PSA. Last seen 04/03/22 and was to f/up PRN. Previous dx: BPH w/ LUTS & elevated PSA. PSA: 03/28/23 - 2.64 04/01/24 - 5.63 Renal US 04/11/24 (for CKD) [facility]. CMP 04/01/24 -Cr 3.15, eGFR 19 Dysuria: denies Incomplete bladder emptying: denies Hematuria: denies Frequency: 3-4x per day Urgency: denies Nocturia: 1x per night Stream: good stream Leaking: denies Post void dripping: denies Wearing pads/ Depends: denies Urge incontinence: denies Stress incontinence: denies Incontinence without Sensory Awareness: denies Abdominal pain: denies Flank pain: denies Sexual complaints: denies History of Present Illness Tests reviewed: reviewed UA, SHUKRI, CMP, PSA I have reviewed the previous health record information and history for this patient from Dr. Hansen and external providers. I have reviewed and verified the staff HPI to be accurate for this encounter. Review of Systems PHQ Score Initial Depression Screen Score: 0 SCORE ROS - Provider Constitutional: denies weight loss, denies hot flashes. Eyes: denies eye problems. Gastrointestinal: denies nausea, denies vomiting. Cardiovascular: denies chest pain or angina. Integumentary: no dryness Musculoskeletal: denies musculoskeletal symptoms. ENMT: denies otolaryngeal symptoms. Respiratory: no shortness of breath. Heme/Lymph: denies easy bleeding tendency, denies easy bruising tendency. Psychiatric: no confusion, no anxiety. Genitourinary: See HPI. Physical Exam Vitals & Measurements HR: 86(Peripheral) RR: 16 BP: 149/86 HT: 74 in HT: 187 cm WT: 101.0 kg WT: 222.667 lb BMI: 28.88 General Appearance: alert, no distress, well nourished, well developed male. Genitourinary: normal scrotum, normal testes, normal urethra, normal epididymis, normal vas deferens/spermatic cord. Flank Pain: none. Bladder: nonpalpable. Prostate: normal prostate, estimated weight 40 gms, no hard nodule observed. Assessment/Plan Re-referred by Dr. Chang for elevated PSA. Last seen in 2021. 1. Elevated PSA (R97.20: Elevated prostate specific antigen [PSA]) PSA 02/04/21 - 3.02 03/03/22 - 2.93 03/28/23 - 2.64 04/01/24 - 5.63 TRUS/bx 2009 - neg. MARIA INES: ~40g, no nodules PSA has more than doubled in the past year. Asx for infection. Advised pt an elevated PSA could indicate prostate cancer, prostate infection, prostate inflammation without infection, prostate manipulation, or benign prostate enlargement (BPH). Discussed options of repeating PSA in a few months vs prostate MRI which could lead to a biopsy vs prostate biopsy. Pt agrees to repeat level to confirm elevation. -Repeat PSA level in 6 mos -If level is still elevated, will proceed with prostate MRI 2. Kidney stones (N20.0: Calculus of kidney) SHUKRI 04/11/24 [facility] - Nonobstructing 5mm R renal stone and 8mm L renal stone. 3. Renal cyst (N28.1: Cyst of kidney, acquired) SHUKRI 04/11/24 [facility] - Large fluid-filled collection within R renal hilum wo convincing dilation of all the calyces, may represent a large cyst protruding into the hilum/parapelvic cyst. 4. BPH with urinary obstruction (N40.1: Benign prostatic hyperplasia with lower urinary tract symptoms) S/p TURP 08/2012. UA today shows trace-intact blood (clinically neg), neg for infection. Not currently taking any BPH meds. No bother with urination. 5. 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 CMP 04/01/24 - BUN 48, Cr 3.15, GFR 19. Dr. Chang referred pt to nephrology. Follow-up With When Contact Information JADE DOYLE, Jenaro Roberto, URL [facility] [address], [place] [address] [phone] Additional Instructions: 6 mos w/ PSA Patient Education Prostate Cancer Screening I, Rochelle Hightower, personally scribed for Dr. Hansen on 04/14/2024 12:42:10. . Documentation recorded by the scribe, Rochelle Hightower, accurately reflects the services(s) I performed and decisions made by me. Authenticated by Dr. Hansen on 04/14/2024 12:43:37. Problem List/Past Medical History Ongoing Arthritis Asymptomatic microscopic hematuria Bleeding disorder BPH with urinary obstruction Diabetes Elevated PSA Glucosuria Kidney stones Lymphoma Protein in urine Renal atrophy, left Renal cyst Historical No qualifying data Procedure/Surgical History Cystoscopy (06/15/2014), Urodynamics (06/26/2012), Cystoscopy (06/14/2012), Cholecystectomy (2011), Colonoscopy, EGD - Esophagogastroduodenoscopy, Laparoscopy, Partial resection of colon, Total knee arthroplasty, Transurethral biopsy prostate, TURP - Transurethral resection of prostate. Medications aspirin atorvastatin, Oral, Daily carvedilol, Oral glimepiride, Oral, Daily Levemir, SubCutaneous, Self Directed lisinopril, Oral, Daily Tradjenta, Oral, (more content not included)... [facility] Comment on above: Result Comment: Elec tronically Signed By: Jenaro HANSEN MD\.br\Date and Time Signed: 04/14/24 12:43 EST\.br\Electronically Co-Signed By: Rochelle Hightower\.br\Date and Time Co-Signed: 04/14/24 12:42 EST 04-14-2024 Note Patient Education Oncology Prostate Cancer Screening Prostate cancer screening is testing that is done to check for the presence of prostate cancer in men. The prostate gland is a walnut-sized gland that is located below the bladder and in front of the rectum in males. The function of the prostate is to add fluid to semen during ejaculation. Prostate cancer is one of the most common types of cancer in men. Who should have prostate cancer screening? Screening recommendations vary based on age and other risk factors, as well as between the professional organizations who make the recommendations. In general, screening is recommended if: ??? You are age 50 to 70 and have an average risk for prostate cancer. You should talk with your health care provider about your need for screening and how often screening should be done. Because most prostate cancers are slow growing and will not cause , screening in this age group is generally reserved for men who have a 10- to 15-year life expectancy. ??? You are younger than age 50, and you have these risk factors: ? Having a father, brother, or uncle who has been diagnosed with prostate cancer. The risk is higher if your family member's cancer occurred at an early age or if you have multiple family members with prostate cancer at an early age. ? Being a male who is Black or is of [place]upo or sub-Saharan descent. In general, screening is not recommended if: ??? You are younger than age 40. ??? You are between the ages of 40 and 49 and you have no risk factors. ??? You are 70 years of age or older. At this age, the risks that screening can cause are greater than the benefits that it may provide. If you are at high risk for prostate cancer, your health care provider may recommend that you have screenings more often or that you start screening at a younger age. How is screening for prostate cancer done? The recommended prostate cancer screening test is a blood test called the prostate-specific antigen (PSA) test. PSA is a protein that is made in the prostate. As you age, your prostate naturally produces more PSA. Abnormally high PSA levels may be caused by: ??? Prostate cancer. ??? An enlarged prostate that is not caused by cancer (benign prostatic hyperplasia, or BPH). This condition is very common in older men. ??? A prostate gland infection (prostatitis) or urinary tract infection. ??? Certain medicines such as male hormones (like testosterone) or other medicines that raise testosterone levels. A rectal exam may be done as part of prostate cancer screening to help provide information about the size of your prostate gland. When a rectal exam is performed, it should be done after the PSA level is drawn to avoid any effect on the results. Depending on the PSA results, you may need more tests, such as: ??? A physical exam to check the size of your prostate gland, if not done as part of screening. ??? Blood and imaging tests. ??? A procedure to remove tissue samples from your prostate gland for testing (biopsy). This is the only way to know for certain if you have prostate cancer. What are the benefits of prostate cancer screening? Screening can help to identify cancer at an early stage, before symptoms start and when the cancer can be treated more easily. ??? There is a small chance that screening may lower your risk of dying from prostate cancer. The chance is small because prostate cancer is a slow-growing cancer, and most men with prostate cancer from a different cause. What are the risks of prostate cancer screening? The main risk of prostate cancer screening is diagnosing and treating prostate cancer that would never have caused any symptoms or problems. This is called overdiagnosisand overtreatment. PSA screening cannot tell you if your PSA is high due to cancer or a different cause. A prostate biopsy is the only procedure to diagnose prostate cancer. Even the results of a biopsy may not tell you if your cancer needs to be treated. Slow-growing prostate cancer may not need any treatment other than monitoring, so diagnosing and treating it may cause unnecessary stress or other side effects. Questions to ask your health care provider ??? When should I start prostate cancer screening? What is my risk for prostate cancer? How often do I need screening? What type of screening tests do I need? How do I get my test results? What do my results mean? Do I need treatment? Where to find more information ??? The [place] [employer]: www.cancer.org ??? [place] [employer]: www.auanet.org Contact a health care provider if: ??? You have difficulty urinating. ??? You have pain when you urinate or ejaculate. ??? You have blood in your urine or semen. ??? You have pain in your back or in the area of your prostate. Summary ??? Prostate cancer is a common type of cancer in men. The prostate gland (more content not included)... [facility] 03-31-2024 Evaluation note Diagnosis Onset Date Resolution Chronic kidney disease acute Oc tob2023 8:14am Chronic venous insufficiency acute March 31, 2024 8:14am Hyperlipidemia, mixed acute Oct hai 2023 8:14am Medicare annual wellness visit, subsequent acute March 31, 2024 8:14am Obesity acute March 31, 2024 8:14am Pernicious anemia acute March 31, 2024 8:14am Primary hypertension acute Octo 2023 8:14am Screening PSA (prostate specific antigen) acute March 31, 2024 8:14am 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 March 31, 2024 8:14am Type 2 diabetes mellitus with hyperglycemia acute March 31, 2024 8:14am Anemia of renal disease acute D ec2023 2:29pm CKD (chronic kidney disease) stage 4, GFR 15-29 ml/min acute May 05, 2024 2:29pm Hyperlipidemia, mixed acute Dec emb2023 2:29pm Hypertensive chronic kidney disease with stage 1 through stage 4 chronic ki acute Decem 2023 2:29pm Secondary hyperparathyroidism acute May 2:29pm Type 2 diabetes mellitus with diabetic chronic kidney disease acute May 05, 2024 2:29pm [facility] Work Phone: 1(266) 440-514510-18-2024 History of Present illness Narrative* Ashley Manzano, FREIGHT INSPECTOR-FULL STACK JAVA DEVELOPER - 03/21/2024 8:30 AM EDT Skin Check Location: Patient requests a skin [...] Anterior (2), Right Forearm - Posterior, Right Mosque Erythematous scaly papules Patient was counseled regarding these sun-induced growths that can develop into squamous cell carcinoma if left untreated. Discussed treatment with cryotherapy. It was emphasized that any treated lesions that fail to resolve should be re- evaluated. Cryotherapy performed today; see procedure note Diagnosis: Actinic keratosis Indication: Precancerous Location: see skin exam Consent: Verbal consent was obtained and risks were discussed, including, but not limited to risks of scarring, darker or extrusion press adjuster pigmentary changes, recurrence, incomplete removal and infection. [...] Anterior (2), Right Forearm - Posterior, Right Mosque 5. Capillary angioma (2) Left Arm, Right [...] 1 year, skin check documented in [facility] encounterR[facility] [id number] Evaluation note* Encounter Date Diagnosis Assessment Notes Treatment Notes Treatment Clinical Notes Jun, Pernicious anemia (ICD-10 - D51.0) [facility] 10-24-2023 Evaluation note* Encounter Date Diagnosis [...] index [BMI] 30.0-30.9, adult (ICD-10 - Z68.30) [facility] 09-29-2023 Evaluation note* Encounter Date Diagnosis [...] in public places for complete 10 days [facility] 09-05-2023 Evaluation note* Encounter Date Diagnosis Assessment Notes Treatment Notes Treatment Clinical Notes Feb, Pernicious anemia (ICD-10 - D51.0) [facility] 07-31-2023 Evaluation note* Encounter Date Diagnosis Assessment Notes Treatment Notes Treatment Clinical Notes Dec, Pernicious anemia (ICD-10 - D51.0) [facility] 06-26-2023 Evaluation note* Encounter Date Diagnosis Assessment Notes Treatment Notes Treatment Clinical Notes Nov, Pernicious anemia (ICD-10 - D51.0) [facility] 03-27-2023 Evaluation note* Encounter Date Diagnosis Assessment Notes Treatment Notes Treatment Clinical Notes Aug, Pernicious anemia (ICD-10 - D51.0) [facility] 02-23-2023 Evaluation note* Encounter Date Diagnosis Assessment Notes Treatment Notes Treatment Clinical Notes Jul, Pernicious anemia (ICD-10 - D51.0) [facility] 01-23-2023 Evaluation note* Encounter Date Diagnosis Assessment Notes Treatment Notes Treatment Clinical Notes Jun, Pernicious anemia (ICD-10 - D51.0) [facility] 10-31-2022 Hospital Discharge instructions Patient Education [...] including vitamins, herbs, eye drops, creams, and ocbf-gxr-mzlwpna medicines. This also includes: ?Medicines to assist [...] 06/23/2005 Document Revised: 05/03/2018 Document Reviewed: 02/25/2018 [employer] Patient Education 2020 [employer]. Follow Up Care 03/28/2021 16:51:27 With:JADE DOYLE, Jenaro Roberto, URL Address: [facility] [address] , [place] [address]- [phone] When: only if needed [facility] 10-10-2022 Miscellaneous Notes* Telephone Encounter - Irena Cabrera - 03/13/2022 2:48 PM EDT Per last note 03/2021 follow up with labs. Please add lab orders for Sunday03/22/22. Thanks. Irena Cabrera MA [facility] NoteHNO ID: [id number] Author: Iona Cabrera RN Service: ? Author Type: Registered Nurse Type: Progress Notes Filed: 02/28/2022 2:28 PM Note Text: Report of findings called to Trisha VIDAL at Dr. Jasso' office. She states she will let Dr. Reyes know. [facility]abeth Cab[facility] NoteHNO ID: [id number] Author: Iona Cabrera RN Service: ? Author [...] Reyes as scheduled on 03/01/22. Elisabeth Cabrera [facility]NF[facility]09-26-2022 History of Present illness Narrative* Iona [...] 03/01/22. Elisabeth Cabrera RN documented in this encounter[facility]22 Miscellaneous Notes* Telephone Encounter - Yoly Boss PA-C - 02/24/2022 8:21 AM EDT Done Yoly Boss PA-C * Telephone Encounter - Eamon Biswas RN - 02/23/2022 4:40 PM EDT Patient of Dr Kidd who is scheduled for cath vernell 02/27/22 per prior phone encounter, can you please place orders. Thanks! Eamon Biswas RN documented in this encounterM[facility]-20-2022 Miscellaneous Notes* Telephone Encounter - Allyssa Rueda - 02/21/2022 1:51 PM EDT Patient has been scheduled for activase on Sunday, 02/27. Called and spoke with regarding this appointment. Allyssa Rueda * Telephone Encounter - Aileen Fish [facility] - 02/21/2022 1:12 PM EDT Xray report scanned. * Telephone Encounter - Aileen Jenkins RN - 02/21/2022 12:24 PM EDT Spoke with and informed her that the orders were placed. NSG: states that it was accessed 2 days in a row at [facility] and there was swelling above port site. Dr. Reyes thought perhaps the nurse missed as they use a smaller port at [place] which is where he had it placed. Informed that if we have swelling while patient is here, we would not proceed. verbalized understanding. PSS: please call patient/ to schedule on infusion schedule for possible 2 doses of activase. Jamia: Can you get an xray that was taken of the port at [facility] recently. ( states they did one) [...] to the treatment schedule. documented in this encounterM[facility]06-[facility]-2022 NotePROCEDURE: XR FOOT LT MIN 3 [...] Electronically authenticated by: ALONZO MADRIGAL Date: 2021-11-09 17:01[facility]10-20-[facility]21 NoteHNO ID: [id number] Author: Kendall Honeycutt APRN.FULL STACK JAVA DEVELOPER Service: ? Author Type: Nurse Practitioner Type: Progress Notes Filed: 03/25/2021 12:42 PM Note Text: Patient: Eugenio Crews Location: [facility] : 1945 Attending Physician: Dr. Kings Jones [...] colonoscopy in September with Dr. Reyes in [place]. He denies fevers, chills, night sweats and [...] with any questions or concerns. Kendall Honeycutt APRN.FULL STACK JAVA DEVELOPER March 23, 2021 I spent a total of 30 minutes on the date of the service which included preparing to see the patient, [id number]-[id number] patient care, completing clinical documentation, obtaining and/or reviewing separately obta (more content not included)...[facility] History of Past illness Narrative* Problem [...] of this encounter (statuses as of 02/21/2022) [facility] History of Past illness Narrative* Problem [...] of this encounter (statuses as of 02/27/2022) [facility] History of Past illness Narrative* Problem [...] of this encounter (statuses as of 03/02/2022) [facility] History of Past illness Narrative* Problem [...] of this encounter (statuses as of 03/13/2022) [facility] No data available for this section [facility] evaluation + Plan note Future Appointments Appointment Date:10/06/2024 08:45:00 AM Scheduled Provider:Jenaro HANSEN MD Location:[facility] Appointment Type:URO Office Visit Diagnostic Tests Pending * PSA Total 04/14/24 [facility] evaluation note* Diagnosis Obstruction of central line, initial encounter (HCC) documented in [facility]* Diagnosis Obstruction of central line, initial encounter (HCC)- Primary Follicular lymphoma, unspecified follicular lymphoma type, unspecified body region (HCC) documented in this encounter [facility]* Diagnosis Non-Hodgkin's lymphoma, unspecified body region, unspecified non-Hodgkin lymphoma type (HCC)- Primary documented in this encounter [facility] noteNo [address] [employer] Other Evaluation note* Diagnosis Onset Date Resolution Status Chronic venous insufficiency acute Diabetes mellitus with hyperglycemia acute Hyperlipidemia, mixed acute Pernicious anemia acute Primary hypertension acute 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 [facility] Work Phone: evaluicmms noteNo assessment information available [facility] Work Phone: evaluation note* Diagnosis Onset Date Resolution Status Herpes zoster acute Type 2 diabetes mellitus with hyperglycemia acute Chronic venous insufficiency acute Hyperlipidemia, mixed acute Pernicious anemia acute Primary hypertension acute 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 Type 2 diabetes mellitus with hyperglycemia acute [facility] Work Phone: evaluation note* Diagnosis Onset Date Resolution Status Chronic venous insufficiency acute Hyperlipidemia, mixed acute Pernicious anemia acute Primary hypertension acute 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 Type 2 diabetes mellitus with hyperglycemia acute [facility] Work Phone: evaluation note* Diagnosis Melanocytic nevus of right upper extremity Melanocytic nevus of left upper extremity Seborrheic keratosis Actinic keratosis Capillary angioma Nevus, non-neoplastic History of SCC (squamous cell carcinoma) of skin Personal history of other malignant neoplasm of skin documented in this encounter [facility] HealthcareEvaluation note* Diagnosis Onset Date Resolution Status Chronic kidney disease acute Chronic venous insufficiency acute Hyperlipidemia, mixed acute Medicare annual wellness visit, subsequent acute Obesity acute Pernicious anemia acute Primary hypertension acute Screening PSA (prostate specific antigen) acute 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 Type 2 diabetes mellitus with hyperglycemia acute [facility] Work Phone: History general Narrative - Reported* Type Description Date Surgical History Problem Title : COLONOSCOPY (01 378), Problem Status : Active, Surgical History Problem Title : DAREN ERTOE REPAIR ([id number]), Problem Comment : left 2nd toe, Problem Status : Active, Surgical History Problem Title : Knee arthroscopy, Problem Comment : multiple [id number], Problem Status : Inactive, Surgical History Problem Title : OSTE CTOMY OF TARSAL COALITION OF LEFT FOOT (90208), Problem Status : Active, Surgical History Problem [...] ERCP 2012 Left Foot Surgery 2012 Cystoscopy/TURP 2012, Problem [...] Foot Ulcer 09/2108, Problem Status : Active, [facility] Other History general Narrative - Reported* Type [...] gait~1/1^Step length-left~1/1^Step height-left~1/1^Step length-right~1/1^Step height-right~1/1^Step symmetry~1/1^Step continuity~1/1^Path~2/2^Trunk~2/2^Walking stance~1/1, Problem Status : Active,, Medical History Problem [...] : Active,, Medical History Problem Title : [facility] Annual Wellness Exam, Problem Description : Medicare Annual Wellness Exam, Problem Comment : G0439, Problem Status : Active,, Medical History Problem Title : [facility] Part B,CMOD Checklist #1, Problem Description [...] History Problem Title : DAREN ERTOE REPAIR ([id number]), Problem Comment : left 2nd toe, Problem Status : Active, Surgical History Problem Title : Knee arthroscopy, Problem Comment : multiple [id number], Problem Status : Inactive, Surgical History Problem Title : OSTE CTOMY OF TARSAL COALITION OF LEFT FOOT (04073), Problem Status : Active, Surgical History Problem [...] Arthroscopy 2997 Left TKA 2002 Right TKA 2008 Laporoscopy 2005 Colonoscopy Surgical History 2: 2005, 2008, 2010 (repeat 2020) EGD 2008, 2010 Bowel Resection 2008 ERCP 2011 Left Foot Surgery 2011 Cystoscopy/TURP 2012 Left Hallux Longus Tendonopathy, Capsulotomy 08/2013 Cholecystecomty 2012 Manipulation under Anesthesia, Right Shoulder Surgical History 3: 06/2017 Debridemen t Left Foot Ulcer 09/2108, Problem Status : Active, [facility] Other History general Narrative - Reported* Type [...] left 2nd toe Surgical History Knee arthroscopy 2117-3617 Surgical History OSTECTOMY OF TARSAL COALITION O F LEFT FOOT Surgical History Resection of Large Bowel Surgical History Debridement Left Foot Ulcer 2018 Hospitalization History see surgical history [facility] Other Hospital Discharge instructions Additional Instructions 1. Sleep on 2 pillows 2. Small amount of Vaseline to sutures twice daily 3. You may shower late tomorrow afternoon, soap and water okay on wound 4. Tylenol or Motrin for discomfort 5 take antibiotic as prescribed 6. [facility] Work [facility]: Progress note No data available for this section [facility] Advance Directives Documents on File Type Date Recorded Patient Blind Hooker Expl anation Advance Directive(s) 09/10/2009 10:04 PM Advance Directive Response Recorded Date/ Time Advance Directives No June 23, 2023 1:43pm Advance Directive Response Recorded Date/ Time Advance Directives No August 21 2:39pm Advance Directive Response Recorded Date/ Time Advance Directives No August 21 1:39pm Summary Purpose Family History Relationship Condition Age [...] 2 diabetes mellitus with hyperglycemia Chief Complaint Admit Date wellness March 31, 2024 8 :14am CC Adult Risk Stratification March 9:37am RENAL CKD 4 May 05, 2024 2 :29pm B12 shot May 13, 2024 8:38am B12 June 13, 2024 1 1:00am Reason for Visit Admit Date Chronic kidney disease March 31 8:14am Chronic venous insufficiency March 8:14am Hyperlipidemia, mixed March 31, 2024 8:14am Medicare annual wellness visit, subseque nt March 31, 2024 8:14am Obesity March 31, 2024 8 :14am Pernicious anemia March 31, 2024 8 :14am Primary hypertension March 31, 2024 8:14am Screening PSA (prostate specific antigen ) March 31, 2024 8:14am Type 2 diabetes mellitus with diabetic p olyneuropathy March 31, 2024 8:14am Type 2 diabetes mellitus with hyperglyce susie March 31, 2024 8:14am Anemia of renal disease May 05 2:29pm CKD (chronic kidney disease) stage 4, GF R 15-29 ml/min May 05, 2024 2:29pm Hyperlipidemia, mixed May 05, 2024 2:29pm Hypertensive chronic kidney disease with stage 1 through stage 4 chronic ki May 05, 2024 2:29pm Secondary hyperparathyroidism May 052023 2:29pm Type 2 diabetes mellitus wit h diabetic chronic kidney disease May 05, 2024 2:29pm Additional Source Comments Source Comments (unrecognize d section and content) In the event this informatio n is protected by the Federal Confidentiality of Alcohol and Drug Abuse Patient Records regulations: The Federal rules restrict any use of the information to criminally investigate or prosecute any alcohol or drug abuse patient.[facility] HospitalIn the event this information is protected by the Federal Confidentiality of Alcohol and Drug Abuse Patient Records regulations: The Federal rules restrict any use of the information to criminally investigate or prosecute any alcohol or drug abuse patient.[facility] HospitalIn the event this information is protected by the Federal Confidentiality of Alcohol and Drug Abuse Patient Records regulations: The Federal rules restrict any use of the information to criminally investigate or prosecute any alcohol or drug abuse patient.[facility] HospitalIn the event this information is protected by the Federal Confidentiality of Alcohol and Drug Abuse Patient Records regulations: The Federal rules restrict any use of the information to criminally investigate or prosecute any alcohol or drug abuse patient.[facility] Reason for Visit (unrecogniz ed section [...] November 28, 2023 End: November 28, 2023 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 Start Date End Date Gerry Chang, DO [address] [facility] [place] [address] PCP - General 09/07/09 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 Specialty Start Date End Date Gerry Chang, DO [address] [facility] [place] [address] PCP - General 09/07/09 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 Specialty Start Date End Date Gerry Chang, DO [address] [facility] [place] [address] PCP - General 09/07/09 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 Specialty Start Date End Date Gerry Chang, DO [address] [facility] [place] [address] PCP - General 09/07/09 Team Status: Active [...] Gerry Chang DO Primary Care Provider Active Start: August 22, 2023 End: August 22, 2023 Gerry Nelson DO Attending Provider Active S tart: August 22, 2023 End: August 22, 2023 Team Status: Inactive Member Role Status Dates Gerry Chang DO Primary Care Provider Active Start: [...] February 05, 2024 End: February 05, 2024 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 Specialty Start Date End Date Gerry Chang MD PCP - General Internal Medicine 08/04/23 Talib Gant MD [address] [place] [address] Referring Physician Dermatology 10/31/23 Gerry Nelson DO [address] [place] [address] Otolaryngology 10/31/23 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 Specialty Start Date End Date Gerry Chang MD PCP - General Internal Medicine 08/04/23 Talib Gant MD [address] [place] [address] Referring Physician Dermatology 10/31/23 Gerry Nelson DO [address] [place] [address] Otolaryngology 10/31/23 Team Status: Inactive Member Role Status Dates Gerry Chang DO Primary Care Provide r, Attending Provider Active Start: March 31, 2024 End: March 31, 2024 Team Status: Active Member Role Status Dates Gerry Chang , Primary Care Provide r, Attending Provider Active Start: April 01, 2024 Team Status: Active Member Role Status Dates Gerry Chang DO Primary Care Provide r, Attending Provider Active Start: April 02, 2024 Team Status: Active Member Role Status Dates Gerry Chang DO Primary Care Provide r, Attending Provider Active Start: April 11, 2024 Team Status: Inactive Member Role Status Dates Gerry Chang DO Primary Care Provide r, Referring Provider Active Start: May 05, 2024 End: May 05, 2024 Vaishali Howell MD Attending Provider Active Start : May 05, 2024 End: May 05, 2024 Team Status: Inactive Member Role Status Dates Gerry Chang DO Primary Care Provide r, Attending Provider Active Start: May 13, 2024 End: May 13, 2024 Team Status: Inactive Member Role Status Dates Gerry Chang , DO Primary Care Provide r, Attending Provider Active Start: June 13, 2024 End: June 13, 2024 (unrecognized sect ion and content) No Status Records FoundNo Status Records FoundNo Status Records FoundNo Status Records FoundNo Status Records Found INFORMATION SOURCE (unrecogn ized section and content) DATE CREATED AUTHOR 03/05/2022 [facility] DATE CREATED AUTHOR AUTHOR'S ORGANIZ ATION 10/18/2022 [facility] DATE CREATED AUTHOR AUTHOR'S ORGANIZ ATION 09/10/2023 [facility] DATE CREATED AUTHOR AUTHOR'S ORGANIZ ATION 03/23/2024 [facility] DATE CREATED AUTHOR AUTHOR'S ORGANIZ ATION 04/15/2024 [facility] Goals (unrecognized section and content) Goals [...] BE BASED ON THE PRIMARY CLINICAL RECORDS. [facility]. provides no warranty or guarantee of the accuracy or completeness of information in this document.
[2024-07-14 07:31] LABS: Hematocrit 34.9 % (42.0-54.0); Mean Corpuscular HGB Conc 34.4 g/dL (29.9-35.2); Mean Corpuscular Hemoglobin 32.9 pg (25.9-34.0); Mean Corpuscular Volume 95.6 fL (80.0-94.0); Mean Platelet Volume 8.7 fL (9.5-13.5); Platelet Count 141 10^3/uL (150-450); Red Blood Count 3.65 10^6/uL (4.70-6.10); Red Cell Distribution Width 12.1 % (11.0-15.0); White Blood Count 5.8 10^3/uL (4.0-11.0)
[2024-07-14 07:47] LABS: Bilirubin Urine NEGATIVE (NEGATIVE); Blood Urine TRACE-I (NEGATIVE); Clarity Urine CLEAR (CLEAR); Color Urine YELLOW (YELLOW); Glucose Urine UA 500 mg/dL (NEGATIVE); Ketones Urine NEGATIVE (NEGATIVE); Leukocyte Esterase Urine NEGATIVE (NEGATIVE); Nitrite Urine NEGATIVE (NEGATIVE); Protein Urine 100 mg/dL (NEG/TRACE); Specific Gravity Urine 1.025 (1.005-1.025); Urobilinogen Urine 0.2 EU/dL (0.2-1.0)
[2024-07-14 07:58] LABS: Bacteria Urine NONE SEEN #/HPF (NONE SEEN); Mucus Urine TRACE (NONE SEEN); RBC Urine 0-2 #/HPF (0-2); Squamous Epithelial Cell Urine FEW #/LPF (NONE/RARE); WBC Urine 0-2 #/HPF (NONE SEEN)
[2024-07-14 08:09] LABS: Protein Creatinine Ratio Urine 0.78; Total Protein Urine Random 101.7 mg/dL (<=11.9)
[2024-07-14 08:12] LABS: Percent Iron Saturation 29.4 %
[2024-07-14 08:30] LABS: Albumin Level 3.6 g/dL (3.4-5.0); Anion Gap 15.2; BUN Creatinine Ratio 14.1; Calcium 8.4 mg/dL (8.5-10.1); Carbon Dioxide 25.5 mmol/L (21.0-32.0); Chloride 106 mmol/L (98-107); Estimated GFR (African America 22 (>=60 mL/min/1.73m^2); Estimated GFR (Non-African Ame 18 (>=60 mL/min/1.73m^2); Glucose 141 mg/dL (74-106); Magnesium 1.7 mg/dL (1.8-2.4); Phosphorus 3.9 mg/dL (2.6-4.7); Potassium 4.7 mmol/L (3.5-5.1); Sodium 142 mmol/L (136-145); Uric Acid 5.4 mg/dL (3.5-7.2)
[2024-07-15 13:07] LABS: PTH, Intact 175 pg/mL (15-65)
== END 2024-07-14 07:06 | disposition home or self-care (01) ==
LOC: LAB 07:07
PROVIDERS: PCP Internal Medicine; Visit Provider Internal Medicine
DX: N25.81 Secondary hyperparathyroidism of renal origin (principal); N18.9 Chronic kidney disease, unspecified; D63.1 Anemia in chronic kidney disease; I12.9 Hypertensive chronic kidney disease with stage 1 through stage 4 chronic kidney disease, or unspecified chronic kidney disease; E11.22 Type 2 diabetes mellitus with diabetic chronic kidney disease; N18.4 Chronic kidney disease, stage 4 (severe)
CPT/HCPCS: 36415; 80069; 81001; 82306; 82570; 82728; 83540; 83550; 83735; 83970; 84156; 84550; 85027

== ENCOUNTER 2024-07-21 07:30 | Outpatient (OUT) | payer MEDICARE, SELFPAY ==
--- OUTSIDE RECORDS SUMMARY | 2024-07-21 07:35 | XMS_ITS | CCD ---
Author Organization [facility] Care Team Providers Care Guidance Services Coordinator Name Role Phone Bernardo TEJADAGerry Primary Care [...] ble BALL, DR GARRETT Primary Care Unavailable [place], DR ALONZO [employer] Unavailable BALL, DR GARRETT Primary Care [...] DR GARRETT Primary Care Unavailable BALL, DR AGRRETT Attending Unavailable BALL, DR GARRETT Primary Care [...] Unavailable Ball, DO Garrett Primary Care Provider [phone] DO Gerry Nelson Attending Provider [phone] Gerry Nelson Attending Unavailable Ball, Gerry Primary [...] Referring Unavailable MURCEK, GERRY Booker Attending Unavailable HERNANDEZORCKY Attending Unavailable FELTDAQUAN, ASHLEY Leon Attending Unavailable Jenaro HANSEN Attending Unavailable GERRY CHANG Referring Unavailable Jenaro HANSEN Attending Unavailable Allergies Allergy Classification Reported Allergen(s) Allergy Type Date of Onset Reaction(s) Facility (7 sources) Ketorolac; Translations: [KETOROLAC] Drug Allergy 09-24-19 21 Unknown, Unknown (qualifier value) [facility] (13 sources) Piperacillin / tazobactam; Translations: [PIPERACILLIN-TA ZOBACTAM] Drug Allergy 09-15-19 10 Rash [facility] (3 sources) Vorinostat; Translations: [vorinostat] Drug Allergy Unknown (qualifier value) [facility] (2 sources) Ketorolac; Translations: [Toradol] Drug Allergy [facility] (1 source) Piperacillin / tazobactam Drug Allergy 01-15-20 16 [facility] (1 source) tazobactam Drug Allergy [facility] (3 sources) patient allergy list reviewed by nurse or physicia Propensity to adverse reactions 12-26-19 19 Comment:Done [employer] Other (3 sources) Allergies Reconciled Propensity to adverse reactions Unknown [employer] [facility] [employer] Other (1 source) Piperacillin Drug Allergy 08-22-19 24 [facility] Repository (3 sources) Ketorolac Allergy to substance 09-24-19 21 Unknown [facility] Healthcare Work Phone: (3 sources) Ketorolac trometamol Allergy to substance 07-25-[address] [facility] Healthcare (3 sources) Piperacillin Drug Allergy 08-22-[address] [facility] Healthcare (3 sources) Piperacillin / tazobactam Drug Allergy 09-15-19 10 Rash [facility] (3 sources) Vorinostat Drug Allergy 08-22-[address] [facility] Healthcare Work Phone: (3 sources) Piperacillin Sod-Tazobactam So Drug Intolerance 04-10-[address] 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; Translations: [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, unspecified] Chronic Residual [...] Onset: 8 Episodic Other aftercare (1 source) detention (current) use of oral hypoglycemic drugs; Translations: [LONGTERM USE ORAL HYPOGLYCEMIC DX] Onset: 2 Episodic [...] [Mass/volume ] in Serum or Plasma 2.9-4.4 [facility] Hepatitis B virus surface Ab [Presence] in Serumon 04-11-2024 HBV surface Ab Ql (S) Hepatitis B virus surface Ab [Presence] in Serum Abnormal Immunity>10 [facility] Comment on above: Status of Immunity A nti-HBs Level Inconsistent with Immunity 0.0 - 10.0Consistent with Immunity >10.0 Hepatitis B virus surface Ag [Presence] in Serum or Plasma by Immunoassayon 04-11-2024 HBV surface Ag IA Ql Hepatitis B virus surface Ag [Presence] in Serum or Plasma by Immunoassay Negative [facility] IgA [Mass/volume] in Serum o r Plasmaon 04-11-2024 IgA [Mass/Vol] IgA [Mass/volume] in Serum or Plasma 61-437 [facility] IgG [Mass/volume] in Serum o r Plasmaon 04-11-2024 IgG [Mass/Vol] IgG [Mass/volume] in Serum or Plasma 603-1613 [facility] IgM [Mass/volume] in Serum o r Plasmaon 04-11-2024 IgM [Mass/Vol] IgM [Mass/volume] in Serum or Plasma 15-143 [facility] Immunoglobulin light chains. kappa.free [Mass/volume] in Serumon 04-11-2024 Immunoglobulin light chains.kappa.free (S) [Mass/Vol] Immunoglobulin light chains.kappa.free [Mass/volume] in Serum Abnormal 3.3-19.4 [facility] Immunoglobulin light chains. kappa.free/Immunoglobulin light chains.lambda.free [Sean 04-11-2024 Immunoglobulin light chains.kappa.free/Immun oglobulin light chains.lambda.free (S) [Mass ratio] Immunoglobulin light chains.kappa.free/Immun oglobulin light chains.lambda.free [Mass 0.26-1.65 [facility] Comment on above: Performed at: [address] [place], [place] [id number] Director: Karel Kaye PhD, Phone: [phone] Immunoglobulin light chains. lambda.free [Mass/volume] in Serum or Plasmaon 04-11-2024 Immunoglobulin light chains.lambda.free [Mass/Vol] Immunoglobulin light chains.lambda.free [Mass/volume] in Serum or Plasma Abnormal 5.7-26.3 [facility] Laboratory - Urinalysison Protein (U) [Mass/Vol] 104.8 mg/dL High <=11.9 [facility] No Panel Informationon 04-11 25-Hydroxy Vitamin D Total 36.9 ng/mL [facility] Comment on above: <20 ng/mL Vit D defi cient20-<30 ng/mL Vit D coeqqwfosffg90-586 ng/mL Vit D sufficient>100 ng/mL Potential Toxicity Hepatitis B Core Total Antibody Negative Negative [facility] Comment on above: Performed at: [address] [place], [place] [id number] Director: Karel Kaye PhD, Phone: [phone] Protein Electrophoresis M-Petar Not Observed g/dL Not Observed [facility] Protein Electrophoresis Note Comment . [facility] Comment on above: Protein electrophore sis scan will follow via computer,mail, or health aide delivery. Urine Random Creatinine 134.54 mg/dL 20.0 0-300.0 0 [facility] Protein [Mass/volume] in Ser um or Plasmaon 04-11-2024 Protein [Mass/Vol] Protein [Mass/volume ] in Serum or Plasma 6.0-8.5 [facility] Serum globulin measurement ( mass/volume)on 04-11-2024 Globulin (S) [Mass/Vol] Serum globulin measurement (mass/volume) 2.2-3.9 [facility] Serum or plasma albumin/glob ulin mass ratioon 04-11-2024 Albumin/Globulin [Mass ratio] Serum or plasma albumin/globulin mass ratio 0.7-1.7 [facility] Serum or plasma alpha 1 glob ulin measurement by electrophoresis (mass/volume)on 04-11-2024 Alpha 1 globulin Elph [Mass/Vol] Serum or plasma alpha 1 globulin measurement by electrophoresis (mass/volume) 0.0-0.4 [facility] Serum or plasma alpha 2 glob ulin measurement by electrophoresis (mass/volume)on 04-11-2024 Alpha 2 globulin Elph [Mass/Vol] Serum or plasma alpha 2 globulin measurement by electrophoresis (mass/volume) 0.4-1.0 [facility] Serum or plasma beta globuli n measurement by electrophoresis (mass/volume)on 04-11-2024 Beta globulin Elph [Mass/Vol] Serum or plasma beta globulin measurement by electrophoresis (mass/volume) 0.7-1.3 [facility] Serum or plasma gamma globul in measurement by electrophoresis (mass/volume)on 04-11-2024 Gamma globulin Elph [Mass/Vol] Serum or plasma gamma globulin measurement by electrophoresis (mass/volume) 0.4-1.8 [facility] Serum or plasma immunoelectr ophoresis interpretationon 04-11-2024 Interpretation IEP [Interp] Serum or plasma immunoelectrophoresis interpretation . [facility] Comment on above: Presence of monoclon al protein is unclear at this time. Suggestrepeat in 3 to 6 months if clinically indicated. Urine protein/creatinine rat ioon 04-11-2024 Protein/Creatinine (U) [Ratio] Urine protein/creatinine ratio [facility] Basophils Auto (Bld) [#/Vol] on 04-01-2024 Basophils (Bld) [#/Vol] Automated basoph il count 0.0-0.1 [facility] Basophils/100 WBC Auto (Bld) on 04-01-2024 Basophils/100 WBC (Bld) Automated basophil % 0. 2-2.0 [facility] Cholesterol in LDL Calc [Mas s/Vol]on 04-01-2024 Cholesterol in LDL [Mass/Vol] Cholesterol in LDL [Mass/volume] in Serum or Plasma by calculation [facility] Comment on above: <100 mg/dl [id number] 0-129 mg/dl NEAR OR ABOVE [id number] mg/dl BORDERLINE [id number] mg/dl HIGH>190 mg/dl VERY HIGH Cholesterol in VLDL Calc [Ma ss/Vol]on 04-01-2024 Cholesterol in VLDL [Mass/Vol] Cholesterol in VLDL [Mass/volume] in Serum or Plasma by calculation [facility] Eosinophils/100 WBC Auto (Bl d)on 04-01-2024 Eosinophils/100 WBC (Bld) Automated eosinophil % 0.9-7.0 [facility] Erythrocyte distribution wid th Auto (RBC) [Ratio]on 04-01-2024 Erythrocyte distribution width (RBC) [Ratio] Erythrocyte distribution width [Ratio] by Automated count 11.0-15.0 [facility] Estimated glomerular filtrat ion rate (GFR) non- Americanon 04-01-2024 GFR/1.73 sq M.predicted among non-blacks MDRD (S/P/Bld) [Vol rate/Area] Estimated glomerular filtration rate (GFR) non- Low >=60 mL/min/1.73 m 2 [facility] Globulin Calc (S) [Mass/Vol] on 04-01-2024 Globulin (S) [Mass/Vol] Serum globulin measurement by calculation (mass/volume) [facility] Hematocrit Auto (Bld) [Volum e fraction]on 04-01-2024 Hematocrit (Bld) [Volume fraction] Hematocrit [Volume Fraction] of Blood by Automated count Low 42.0-54.0 [facility] Hemoglobin [Mass/volume] in Bloodon 04-01-2024 Hemoglobin (Bld) [Mass/Vol] Hemoglobin [Mass/volume] in Blood Low 14.0-18.0 [facility] Laboratory - Chemistry and C hemistry - challengeon 04-01-2024 Albumin [Mass/Vol] 3.2 g/dL Low 3.4-5.0 [facility] ALP [Catalytic activity/Vol] 92 U/L 46-116 [facility] ALT [Catalytic activity/Vol] 14 U/L Low 16-63 [facility] AST [Catalytic activity/Vol] 12 U/L Low 15-37 [facility] Bilirubin [Mass/Vol] 0.4 mg/dL 0.2-1.[address] [facility] Calcium [Mass/Vol] 8.4 mg/dL Low 8.5-10.1 [facility] Chloride [Moles/Vol] 109 mmol/L High 98-[address] [facility] Cholesterol [Mass/Vol] 103 mg/dL <=200 [facility] Cholesterol in HDL [Mass/Vol] 36 mg/dL Low 40-60 [facility] Comment on above: > or =60 mg/dl - LOW CARDIOVASCULAR RISK<40 mg/dl - HIGH CARDIOVASCULAR RISK CO2 [Moles/Vol] 21.1 mmol/L 21.0-32.0 [facility] Creatinine [Mass/Vol] 3.15 mg/dL High 0.70-1.30 [facility] GFR/1.73 sq M.predicted MDRD (S/P/Bld) [Vol rate/Area] 23 mL/min/{1.73_m2} Low >=60 mL/min/1.73 m 2 [facility] Glucose [Mass/Vol] 151 mg/dL High 74-106 [facility] Potassium [Moles/Vol] 4.9 mmol/L 3.5-5.1 [facility] Protein [Mass/Vol] 6.5 g/dL 6.4-8.2 [facility] Sodium [Moles/Vol] 142 mmol/L 136-145 [facility] Triglyceride [Mass/Vol] 170 mg/dL High <=150 [facility] Urea nitrogen [Mass/Vol] 48.0 mg/dL High 7.0-18.0 [facility] Urea nitrogen/Creatinine [Mass ratio] 15.2 mg/mg [facility] Laboratory - Hematology and Cell countson 04-01-2024 Immature granulocytes/100 WBC (Bld) 0.3 % 0.0-0.5 [facility] Laboratory - Urinalysison Protein (U) [Mass/Vol] 94.1 mg/dL High <=11.9 [facility] Leukocytes [#/volume] correc yoseph for nucleated erythrocytes in Blood by Automated counon 04-01-2024 WBC corrected for nucl RBC Auto (Bld) [#/Vol] Leukocytes [#/volume] corrected for nucleated erythrocytes in Blood by Automated coun 4.0-11.0 [facility] Lymphocytes Auto (Bld) [#/Vo l]on 04-01-2024 Lymphocytes (Bld) [#/Vol] Lymphocytes [#/volume] in Blood by Automated count Low 1.2-3.8 [facility] Lymphocytes/100 WBC Auto (Bl d)on 04-01-2024 Lymphocytes/100 WBC (Bld) Lymphocytes/100 leukocytes in Blood by Automated count Low 20.5-60.0 [facility] MCH Auto (RBC) [Entitic mass ]on 04-01-2024 MCH (RBC) [Entitic mass] MCH [Entitic mass] by Automated count 25.9-34.0 [facility] MCHC Auto (RBC) [Mass/Vol]on 04-01-2024 MCHC (RBC) [Mass/Vol] MCHC [Mass/volume] by Automated count 29.9-35.2 [facility] MCV Auto (RBC) [Entitic vol] on 04-01-2024 MCV (RBC) [Entitic vol] MCV [Entitic vol ume] by Automated count High 80.0-94.0 [facility] Monocytes Auto (Bld) [#/Vol] on 04-01-2024 Monocytes (Bld) [#/Vol] Automated blood monocyte count 0.3-0.8 [facility] Monocytes/100 WBC Auto (Bld) on 10-29-2024 Monocytes/100 WBC (Bld) Automated monocyte % 1. 7-12.0 [facility] Neutrophils Auto (Bld) [#/Vo l]on 04-01-2024 Neutrophils (Bld) [#/Vol] Neutrophils [#/volume] in Blood by Automated count 1.4-6.5 [facility] Neutrophils/100 WBC Auto (Bl d)on 04-01-2024 Neutrophils/100 WBC (Bld) Automated neutrophil % High 43.0-75.0 [facility] No Panel Informationon 04-01 Eosinophils # (Auto) 0.2 10 3/uL 0.0-0.7 [facility] Immature Granulocyte # (Auto) 0.02 10 3/uL 0.00-0.03 [facility] Prostate Specific Antigen Screen 5.63 ng/mL High <=4.00 [facility] Urine Random Creatinine 103.93 mg/dL 20.0 0-300.0 0 [facility] Platelet mean volume Auto (B ld) [Entitic vol]on 04-01-2024 Platelet mean volume (Bld) [Entitic vol] Platelet mean volume [Entitic volume] in Blood by Automated count Low 9.5-13.5 [facility] Platelets Auto (Bld) [#/Vol] on 04-01-2024 Platelets (Bld) [#/Vol] Platelets [#/vol ume] in Blood by Automated count Low 150-450 [facility] RBC Auto (Bld) [#/Vol]on RBC (Bld) [#/Vol] Erythrocytes [#/volu me] in Blood by Automated count Low 4.70-6.10 [facility] Serum or plasma albumin/glob ulin mass ratioon 04-01-2024 Albumin/Globulin [Mass ratio] Serum or plasma albumin/globulin mass ratio [facility] Serum or plasma anion gap de terminationon 04-01-2024 Anion gap [Moles/Vol] Serum or plasma an ion gap determination [facility] Serum or plasma total choles terol/high density lipoprotein (HDL) cholesterol mass tawanna 04-01-2024 Cholesterol.total/Bertha sterol in HDL [Mass ratio] Serum or plasma total cholesterol/high density lipoprotein (HDL) cholesterol mass rat [facility] Comment on above: 3.3 - 4.4 LOW RISK4. 4 - 7.1 AVERAGE RISK7.1 - 11.0 MODERATE RISK>11.0 HIGH RISK Urine protein/creatinine rat ioon 04-01-2024 Protein/Creatinine (U) [Ratio] Urine protein/creatinine ratio [facility] No Panel Informationon 03-21 [facility] Glucose mean value [Mass/vol ume] in Blood Estimated from glycated hemoglobinon 12-19-2023 Average glucose Estimated from glycated hemoglobin (Bld) [Mass/Vol] 169 mg/dL [facility] Laboratory - Hematology and Cell countson 12-19-2023 HbA1c (Bld) [Mass fraction] 7.5 % High 4.5-6.2 [facility] Comment on above: ADA RECOMMENDED LIMI T 4.0 - 6.0ADA THERAPEUTIC TARGET < 7.0ACTION SUGGESTED> 7.0 Glucose Glucometer (BldC) [M ass/Vol]Ordered By: Gerry Nelson on 08-28-2023 Glucose [Mass/Vol] 101 mg/dL [facility] Comment on above: Random Glucose Refer ence Range is dependent on time and content of last meal. Glucose of more than 200 mg/dL in a nonstressed, ambulatory subject supports the diagnosis of Diabetes Mellitus. Glucose Poct Glucometerson 0 08-28-2023 Glucose [Mass/Vol] 101 mg/dL Normal [facility] Comment on above: Result Comment: [place] om Glucose Reference Range is dependent on time and content of last meal. Glucose of more than 200 mg/dL in a nonstressed, ambulatory subject supports the diagnosis of Diabetes Mellitus. PERFORMED BY: [facility] [address] [place] [address] PATHOLOGIST REGRINDER OPERATOR AMANDA ZAMORA M.D. Performed By: #### G LULS #### Point of Care testing , Commemt1 Glu2: Cleaned Meter Normal [facility] Comment on above: Result Comment: PERF ORMED BY: [facility] [address] [place] [address] PATHOLOGIST REGRINDER OPERATOR AMANDA ZAMORA M.D. Performed By: #### G LULS #### Point of Care testing , Glucose [Mass/Vol] 147 mg/dL Normal [facility] Comment on above: Result Comment: [facility] Glucose Reference Range is dependent on time and content of last meal. Glucose of more than 200 mg/dL in a nonstressed, ambulatory subject supports the diagnosis of Diabetes Mellitus. Performed By: #### G SHAMEKA #### Point of Care testing , Von 08-28-2023 L Specimen: Received: 08/28/23 Status: MANJIT Caballero Num: [id number] Spec Type: Surgical Subm Dr: Gerry Nelson DO Tissues: A Skin-Other than Cyst, tag, debridement or plastic repair (SCALP) Procedures: HE/7, Gross/Micro L4, Frozen Section, Froz Sec, Add/4, FS HE/10 Age/ Patient Sex Location Account Attending Physician Eugenio Crews 78/M [place] [id number] Gerry Nelson DO SPEC NUM: [id number] RECD: 08/28/23 STATUS: MANJIT CABALLERO NUM: [id number] ANJALI: 08/28/[address]: Gerry Nelson DO ENTERED: 08/28/[address] [facility] [address]: SPEC TYPE: Surgical DEPT: S [...] A2 - Frozen section remnant?FSA 2 Specimen: [id number] Received: 08/28/23 Status: MANJIT Tiana Num: [id number] Spec Type: Surgical Subm Dr: Gerry Nelson DO Tissues: A Skin-Other than Cyst, tag, debridement or plastic repair (SCALP) Procedures: , Gross/Micro L4, Frozen SectionLu, Add/4, FS Patient: Eugenio Crews [id number] (Continued) Specimen: [id number] Received: 08/28/23 (Continued) Gross Description (Continued) Signed (signature on file) Mel Proctor MD 08/29/23 1356 Specimen: [id number] Received: 08/28/23 Status: MANJIT Caballero Num: [id number] Spec Type: Surgical Subm Dr: Gerry Nelson DO Tissues: A Skin-Other than Cyst, tag, debridement or plastic repair (SCALP) Procedures: HE/, Gross/Micro L4, Frozen Section, Lu Moulton, Add/4, FS Patient: Eugenio Crews [id number] (Continued) Specimen: [id number] Received: 08/28/23 (Continued) Gross Description (Continued) A3 - Frozen section remnant?FSA 3 A4 - Frozen section remnant?FSA 4 A5 - Frozen section remnant?FSA 5 A6 - 12:00 half of specimen A7 - 6:00 half of specimen Intraoperative Diagnosis A. Recurrent squamous cell carcinoma of scalp: - Margins are negative for malignancy. Reported by Dr. Proctor at 2:05 PM 08/28/2023 CPT Codes 59107, 18509, 23048t5 Specimen: [id number] Received: 08/28/23 Status: MANJIT Caballero Num: [id number] Spec Type: Surgical Subm Dr: Gerry Nelson DO Tissues: A Skin-Other than Cyst, tag, debridement or plastic repair (SCALP) Procedures: HE/, Gross/Micro L4, Frozen Section, Lu Moulton, Add/4, FS /10 Patient: Eugenio Crews [id number] (Continued) Signed (signature on file)___ (more content not included)... Normal [facility] No Panel InformationOrdered By: Gerry Nelson on 08-28-2023 Bedside Glucose Comment Glu2: cleaned meter [facility] Basic Metabolic Panelon 08-03 Anion gap [Moles/Vol] 12.7 mmol/L Normal 6.0-15.0 [facility] Comment on above: Performed By: #### B MP, CBC #### [facility] [address] [place] [address] [place] Calcium [Mass/Vol] 8.7 mg/dL Normal 8.6-10.3 [facility] Comment on above: Result Comment: PERF ORMED BY: [place] [address] PATHOLOGIST REGRINDER OPERATOR AMANDA ZAMORA M.D. Performed By: #### B MP, CBC #### [facility] [address] [place] [address] [place] Chloride [Moles/Vol] 109 mmol/L High 98-[address] [facility] Comment on above: Performed By: #### B MP, CBC #### [facility] [address] [place] [address] [place] CO2 [Moles/Vol] 22.0 mmol/L Normal 21.0-31.0 [facility] Comment on above: Performed By: #### B MP, CBC #### [facility] [address] [place] [address] [place] Creatinine [Mass/Vol] 2.90 mg/dL High 0.70-1.30 [facility] Comment on above: Performed By: #### B MP, CBC #### [facility] [address] [place] [address] [place] GFR/1.73 sq M.predicted MDRD (S/P/Bld) [Vol rate/Area] 21.738 mL/min/{1.73_m2} Normal [facility] Comment on above: Performed By: #### B MP, CBC #### [facility] [address] [place] [address] [place] Glucose [Mass/Vol] 227 mg/dL High 70-100 [facility] Comment on above: Result Comment: [facility] Glucose Reference Range is dependent on time and content of last meal. Glucose of more than 200 mg/dL in a nonstressed, ambulatory subject supports the diagnosis of Diabetes Mellitus. ADA recommended reference range Performed By: #### B MP, CBC #### [facility] [address] Potassium [Moles/Vol] 4.7 mmol/L Normal 3.5-5.1 [facility] Comment on above: Performed By: #### B MP, CBC #### [facility] [address] [place] [address] [place] Sodium [Moles/Vol] 139 mmol/L Normal 136-145 [facility] Comment on above: Performed By: #### B MP, CBC #### [facility] [address] [place] [address] [place] Urea nitrogen [Mass/Vol] 43 mg/dL High 7-25 [facility] Comment on above: Performed By: #### B MP, CBC #### [facility] [address] [place] [address] [place] Basophils Auto (Bld) [#/Vol] Ordered By: Gerry Nelson on 08-22-2023 Basophils (Bld) [#/Vol] 0.0 10*3/uL 0.0-0.2 [facility] Basophils/100 WBC Auto (Bld) Ordered By: Gerry Nelson on 08-22-2023 Basophils/100 WBC (Bld) 0.4 % . [facility] Calcium [Mass/volume] in Ser um or PlasmaOrdered By: Gerry Nelson on 08-22-2023 Calcium [Mass/Vol] 8.7 mg/dL 8.6-10.3 [facility] Carbon dioxide, total [Moles /volume] in Serum or PlasmaOrdered By: Gerry Nelson on 08-22-2023 CO2 [Moles/Vol] 22.0 mmol/L 21.0-31.0 [facility] Chloride [Moles/volume] in S hai or PlasmaOrdered By: Gerry Nelson on 08-22-2023 Chloride [Moles/Vol] 109 mmol/L 98-[address] [facility] Complete Blood Count Auto Di ffon 08-22-2023 Basophils (Bld) [#/Vol] 0.0 10*3/uL Normal 0.0-0.2 [facility] Comment on above: Result Comment: PERF ORMED BY: [place] [id number] PATHOLOGIST REGRINDER OPERATOR AMANDA ZAMORA M.D. Performed By: #### B MP, CBC #### [address] Basophils/100 WBC (Bld) 0.4 % Normal . [facility] Comment on above: Performed By: #### B MP, CBC #### [address] Eosinophils (Bld) [#/Vol] 0.1 10*3/uL Normal 0.0-0.45 [facility] Comment on above: Performed By: #### B MP, CBC #### [address] Eosinophils/100 WBC (Bld) 2.4 % Normal . [facility] Comment on above: Performed By: #### B MP, CBC #### [address] Erythrocyte distribution width (RBC) [Ratio] 12.7 % Normal 12.0-14.8 [facility] Comment on above: Performed By: #### B MP, CBC #### [place] [address] [place] Hematocrit (Bld) [Volume fraction] 33.6 % Low 38.8-50.0 [facility] Comment on above: Performed By: #### B MP, CBC #### [address] Hemoglobin (Bld) [Mass/Vol] 11.4 g/dL Low 13.0-17.0 [facility] Comment on above: Performed By: #### B MP, CBC #### [address] Lymphocytes (Bld) [#/Vol] 0.9 10*3/uL Low 1.00-4.8 [facility] Comment on above: Performed By: #### B MP, CBC #### [address] Lymphocytes/100 WBC (Bld) 14.3 % Normal . [facility] Comment on above: Performed By: #### B MP, CBC #### [address] MCH (RBC) [Entitic mass] 32.7 pg Normal 27.5-35.2 [facility] Comment on above: Performed By: #### B MP, CBC #### [address] MCV (RBC) [Entitic vol] 96.1 fL Normal 83.5-101 [facility] Comment on above: Performed By: #### B MP, CBC #### [address] Mean Corpuscular HGB Conc 34.0 g/dL Normal 32.5-35.6 [facility] Comment on above: Performed By: #### B MP, CBC #### [address] Monocytes (Bld) [#/Vol] 0.5 10*3/uL Normal 0.0-0.8 [facility] Comment on above: Performed By: #### B MP, CBC #### [place] [address] [place] Monocytes/100 WBC (Bld) 7.4 % Normal . [facility] Comment on above: Performed By: #### B MP, CBC #### [facility] [address] Neutrophils (Bld) [#/Vol] 4.7 10*3/uL Normal 1.8-7.7 [facility] Comment on above: Performed By: #### B MP, CBC #### [facility] [address] Neutrophils/100 WBC (Bld) 75.5 % Normal . [facility] Comment on above: Performed By: #### B MP, CBC #### [facility] [address] NRBC% 0.0 /100{WBC} Normal 0-0.5 [facility] Comment on above: Performed By: #### B MP, CBC #### [facility] [address] Platelet mean volume (Bld) [Entitic vol] 7.2 fL Normal 6.6-10.1 [facility] Comment on above: Performed By: #### B MP, CBC #### [facility] [address] [place] [address] [place] Platelets (Bld) [#/Vol] 165 10*3/uL Normal 150-450 [facility] Comment on above: Performed By: #### B MP, CBC #### [facility] [address] [place] [address] [place] RBC (Bld) [#/Vol] 3.50 10*6/uL Low 3.90-5.60 [facility] Comment on above: Performed By: #### B MP, CBC #### [facility] [address] [place] [address] [place] WBC (Bld) [#/Vol] 6.2 10*3/uL Normal 4.1-10.5 [facility] Comment on above: Performed By: #### B MP, CBC #### [facility] [address] [place] [address] [place] Creatinine [Mass/volume] in Serum or PlasmaOrdered By: Gerry Nelson on 08-22-2023 Creatinine [Mass/Vol] 2.90 mg/dL 0.70-1.30 [facility] ECG 12 lead ECGon 08-22-2023 ECG 12 lead ECG [facility] [place] [address] Electrocardiograph Report Signed Patient: Eugenio Crews MR#: [id number] : 1945 Acct:[id number] Age/Sex: 78 / M ADM Date: 08/22/23 Loc: PS Room: Type: [facility] Attending Dr: Gerry Nelson DO Ordering [...] previous ECGs available Confirmed by Joni Marrero ([id number]) on 08/23/2023 11:21:57 AM Referred By: NOHEMI Electronically Signed By:Joni Marrero Transcribed By: MUS Signed By Joni Marrero MD 08/23/23 1122 Normal [facility] Eosinophils Auto (Bld) [#/Vo l]Ordered By: Gerry Nelson on 08-22-2023 Eosinophils (Bld) [#/Vol] 0.1 10*3/uL 0.0-0.45 [facility] Eosinophils/100 WBC Auto (Bl d)Ordered By: Gerry Nelson on 08-22-2023 Eosinophils/100 WBC (Bld) 2.4 % . [facility] Erythrocyte distribution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 Value Performing Clinician Facility 05-05-2024 14:43-0500 Body height 182.88 cm [facility] 05-05-2024 14:43-0500 Body mass index (BMI) [Ratio] 30.4 kg/m2 [facility] 05-05-2024 14:43-0500 Body temperature 97.7 [degF] [facility] 05-05-2024 14:43-0500 Body weight 101.6 kg [facility] 05-05-2024 14:43-0500 Diastolic blood pressure 82 mm[Hg] [facility] 05-05-2024 14:43-0500 Heart rate 83 /min [facility] 05-05-2024 14:43-0500 Respiratory rate 16 /min [facility] 05-05-2024 14:43-0500 SaO2% (BldA) [Mass fraction] 100 % [facility] 05-05-2024 14:43-0500 Systolic blood pressure 126 mm[Hg] [facility] 04-14-2024 11:48-0500 Blood Pressure Location Jenaro HANSEN [facility] 04-14-2024 11:48-0500 Diastolic blood pressure 86 mm[Hg] Jenaro HANSEN [facility] 04-14-2024 11:48-0500 Heart rate 86 /min Jenaro HANSEN [facility] 04-14-2024 11:48-0500 Respiratory rate 16 /min Jenaro HANSEN [facility] 04-14-2024 11:48-0500 Systolic blood pressure 149 mm[Hg] Jenaro HANSEN [facility] 03-31-2024 08:30-0400 Body height 182.88 cm [facility] 03-31-2024 08:30-0400 Body mass index (BMI) [Ratio] 30.4 kg/m2 [facility] 03-31-2024 08:30-0400 Body weight 101.66 kg [facility] 03-31-2024 08:30-0400 Diastolic blood pressure 81 mm[Hg] [facility] 03-31-2024 08:30-0400 Heart rate 80 /min [facility] 03-31-2024 08:30-0400 Respiratory rate 12 /min [facility] 03-31-2024 08:30-0400 Systolic blood pressure 140 mm[Hg] [facility] 11-28-2023 08:37-0400 Body height 182.88 cm [facility] 11-28-2023 08:37-0400 Body mass index (BMI) [Ratio] 29.6 kg/m2 [facility] 11-28-2023 08:37-0400 Body weight 99.05 kg [facility] 11-28-2023 08:37-0400 Diastolic blood pressure 80 mm[Hg] [facility] 11-28-2023 08:37-0400 Heart rate 75 /min [facility] 11-28-2023 08:37-0400 Respiratory rate 12 /min [facility] 11-28-2023 08:37-0400 Systolic blood pressure 139 mm[Hg] [facility] 11-02-2023 11:53-0400 Body height 182.88 cm [facility] 11-02-2023 11:53-0400 Body mass index (BMI) [Ratio] 31.1 kg/m2 [facility] 11-02-2023 11:53-0400 Body weight 104.01 kg [facility] 11-02-2023 11:53-0400 Diastolic blood pressure 74 mm[Hg] [facility] 11-02-2023 11:53-0400 Heart rate 60 /min [facility] 11-02-2023 11:53-0400 Respiratory rate 12 /min [facility] 11-02-2023 11:53-0400 Systolic blood pressure 110 mm[Hg] [facility] 08-28-2023 15:35-0400 Diastolic blood pressure 63 mm[Hg] DO Gerry Ball Work Phone: [facility] 08-28-2023 15:35-0400 Heart rate 61 /min DO Gerry Ball Work Phone: [facility] 08-28-2023 15:35-0400 Respiratory rate 14 /min DO Gerry Ball Work Phone: [facility] 08-28-2023 15:35-0400 SaO2% (BldA) [Mass fraction] 97 % DO Gerry Ball Work Phone: [facility] 08-28-2023 15:35-0400 Systolic blood pressure 102 mm[Hg] DO Gerry Ball Work Phone: [facility] 08-28-2023 14:48-0400 Body temperature 98 [degF] DO Gerry Ball Work Phone: [facility] 08-28-2023 14:23-0400 Inhaled oxygen flow rate 8 L/min DO Gerry Ball Work Phone: [facility] 08-28-2023 13:02-0400 Body mass index (BMI) [Ratio] 30.4 kg/m2 DO Gerry Ball Work Phone: [facility] 08-28-2023 12:21-0400 Body height 187.96 cm DO Gerry Ball Work Phone: [facility] 08-28-2023 12:21-0400 Body weight 107.5 kg DO Gerry Ball Work Phone: [facility] 07-30-2023 08:30-0500 Body height 185.42 cm [facility] 07-30-2023 08:30-0500 Body mass index (BMI) [Ratio] 31.6 kg/m2 [facility] 07-30-2023 08:30-0500 Body weight 108.86 kg [facility] 07-30-2023 08:30-0500 Diastolic blood pressure 75 mm[Hg] [facility] 07-30-2023 08:30-0500 Heart rate 80 /min [facility] 07-30-2023 08:30-0500 Respiratory rate 16 /min [facility] 07-30-2023 08:30-0500 Systolic blood pressure 157 mm[Hg] [facility] 03-27-2023 08:30-0400 Body height 185.42 cm Gerry Ball Other [facility] [employer] Other 03-27-2023 08:30-0400 Body mass index (BMI) [Ratio] 30.13 kg/m2 Gerry Ball Other [facility] [employer] Other 03-27-2023 08:30-0400 Body weight 103.6 kg Gerry Ball Other [facility] [employer] Other 03-27-2023 08:30-0400 Diastolic blood pressure 76 mm[Hg] Gerry Ball Other [facility] [employer] Other 03-27-2023 08:30-0400 Respiratory rate 12 /min Gerry Ball Other [facility] [employer] Other 03-27-2023 08:30-0400 Systolic blood pressure 139 mm[Hg] Gerry Ball Other [employer] Other 04-03-2022 12:40-0400 Blood Pressure Location Jenaro HANSEN [facility] 04-03-2022 12:40-0400 Diastolic blood pressure 82 mm[Hg] Jenaro HANSEN [facility] 04-03-2022 12:40-0400 Heart rate 76 /min Jenaro HANSEN [facility] 04-03-2022 12:40-0400 Respiratory rate 16 /min Jenaro HANSEN [facility] 04-03-2022 12:40-0400 Systolic blood pressure 140 mm[Hg] Jenaro HANSEN [facility] Encounters Encounter Date Encounter Type Care Provider Facility Start: 10-06-2024 ambulatory Jenaro HANSEN [facility] ty:[facility] Start: 06-13-2024 End: 06-13-2024 ambulatory [facility] Work Phone: Start: 06-13-2024 End: 06-13-2024 Patient encounter procedure [facility] Physician [facility] Work Phone: Start: 05-13-2024 End: 05-13-2024 Patient encounter procedure [facility] Physician [facility] Work Phone: Start: 05-05-2024 End: 05-05-2024 Patient encounter procedure [facility] Physician [facility] Work Phone: Start: 04-14-2024 End: 04-14-2024 ambulatory GERRY BERNARDO Facility:[facility] Start: 04-14-2024 End: 04-14-2024 Patient encounter procedure Jenaro HANSEN [facility] Start: 04-11-2024 Non-patient / Non-visit [facility] Physician [facility] [employer] Work Phone: Start: 04-02-2024 Non-patient / Non-visit [facility] Physician [facility] Work Phone: Start: 04-01-2024 Non-patient / Non-visit [facility] Physician [facility] Work Phone: Start: 03-31-2024 End: 03-31-2024 ambulatory [facility] Work Phone: Start: 03-31-2024 End: 03-31-2024 Patient encounter procedure [facility] Physician [facility] Work Phone: Start: 03-29-2024 Patient encounter procedure [facility] Start: 03-21-2024 End: 03-21-2024 [employer] Ashley Leon Felter VACCINE KEY CUSTOMER LEADER-SATELLITE TV TECHNICIAN INSTALLER Work Phone: [facility] Start: 03-21-2024 End: 03-21-2024 Bamboo flowsheet Ashley Leon Felter VACCINE KEY CUSTOMER LEADER-SATELLITE TV TECHNICIAN INSTALLER Work Phone: [facility] Start: 03-21-2024 End: 03-21-2024 Office outpatient visit 15 minutes Ashley Byrder VACCINE KEY CUSTOMER LEADER-SATELLITE TV TECHNICIAN INSTALLER Work Phone: [facility] Comment on above: Melanocytic nevus of right upper extremity; Melanocytic nevus of left upper extremity; Seborrheic keratosis; Actinic keratosis; Capillary angioma; History of SCC (squamous cell carcinoma) of skin Start: 03-21-2024 End: 03-21-2024 ambulatory ASHLEY BYRDER Not Available Start: 02-05-2024 End: 02-05-2024 ambulatory [facility] Work Phone: Start: 02-05-2024 End: 02-05-2024 Patient encounter procedure [facility] Physician [facility] Work Phone: Start: 12-31-2023 End: 12-31-2023 ambulatory [facility] Work Phone: Start: 12-31-2023 End: 12-31-2023 Patient encounter procedure [facility] Physician [facility] Work Phone: Start: 12-19-2023 Non-patient / Non-visit [facility] Physician [facility] Work Phone: Start: 11-28-2023 End: 11-28-2023 ambulatory [facility] Work Phone: Start: 11-28-2023 End: 11-28-2023 Patient encounter procedure [facility] Physician [facility] Work Phone: Start: 11-02-2023 End: 11-02-2023 ambulatory DO Gerry Ball Work Phone: [facility] Work Phone: Start: 11-02-2023 End: 11-02-2023 Patient encounter procedure DO Gerry Ball Work Phone: [facility] Physician [facility] Work Phone: Start: 10-31-2023 End: 10-31-2023 ambulatory GERRY W MURCEK Not Available Start: 09-19-2023 End: 09-19-2023 ambulatory GERRY W MURCEK Not Available Start: 09-12-2023 End: 09-12-2023 ambulatory DO Gerry Ball Work Phone: [facility] Work Phone: Start: 09-12-2023 End: 09-12-2023 Patient encounter procedure DO Gerry Ball Work Phone: [facility] Physician [facility] Work Phone: Start: 09-05-2023 End: 09-05-2023 ambulatory GERRY W MURCEK Not Available Start: 08-29-2023 End: 08-29-2023 ambulatory GERRY W MURCEK Not Available Start: 08-28-2023 End: 08-28-2023 ambulatory Gerry Murcek Facility:[facility] Start: 08-28-2023 End: 08-28-2023 Admission to same day surgery center DO Gerry Ball Work Phone: [facility] [place] Start: 08-28-2023 End: 08-28-2023 ambulatory DO Gerry Ball Work Phone: [facility] Work Phone: Start: 08-22-2023 End: 08-22-2023 ambulatory Gerry Nelson Facility:[facility] Start: 08-22-2023 Encounter for preprocedural laboratory examination Gerry Nelson [facility] Start: 08-22-2023 End: 08-22-2023 ambulatory DO Gerry Chang Work Phone: [facility] Work Phone: Start: 08-22-2023 End: 08-22-2023 Patient encounter procedure DO Gerry Chang Work Phone: [facility] [employer] Work Phone: Start: 08-22-2023 End: 08-22-2023 ambulatory GERRY NELSON Not Available Start: 08-10-2023 End: 08-10-2023 Patient encounter procedure DO Gerry Chang Work Phone: [facility] Physician [facility] Work Phone: Start: 08-06-2023 Non-patient / Non-visit DO Hayes Chang Work Phone: [facility] Physician [facility] [employer] Work Phone: Start: 07-30-2023 End: 07-30-2023 ambulatory [facility] Work Phone: Start: 07-30-2023 End: 07-30-2023 Patient encounter procedure [facility] Phys[facility] Work Phone: Start: 07-27-2023 Non-patient / Non-visit [facility] Physician [facility] Work Phone: Start: 07-25-2023 End: 07-25-2023 ambulatory TALIB Leon BRIA Not Available Start: 07-03-2023 End: 07-03-2023 ambulatory Gerry Chang Other [facility] [employer] Other Start: 07-03-2023 Nursing evaluation o f patient and report [facility] Start: 05-22-2023 End: 05-22-2023 ambulatory ROCKY HERNANDEZ Not Available Start: 03-29-2023 End: 03-29-2023 ambulatory Gerry Chang Other [employer] Other Start: 03-29-2023 Telephone encounter Gerry Chang [facility] Start: 03-27-2023 End: 03-27-2023 ambulatory Gerry Chang Other [employer] Other Start: 03-27-2023 Patient encounter procedure Gerry Chang [facility] Start: 03-02-2023 End: 03-02-2023 ambulatory Gerry Chang Other [employer] Other Start: 03-02-2023 Office outpatient vi sit 15 minutes Gerry Chang [facility] Start: 03-02-2023 Telephone encounter Gerry Chang [facility] Start: 02-06-2023 End: 02-06-2023 ambulatory Gerry Chang Other [employer] Other Start: 02-06-2023 Nursing evaluation o f patient and report Gerry Chang [facility] Start: 02-06-2023 Telephone encounter Gerry Chang [facility] Start: 01-01-2023 End: 01-01-2023 ambulatory Gerry Chang Other [employer] Other Start: 01-01-2023 Nursing evaluation o f patient and report Gerry Chang [facility] Start: 11-27-2022 End: 11-27-2022 ambulatory Gerry Chang Other [employer] Other Start: 11-27-2022 Nursing evaluation o f patient and report Gerry Chang [facility] Start: 10-18-2022 End: 10-18-[address] GERRY CHANG Facility:H1 Start: 09-06-2022 End: 09-06-[address] GERRY CHANG Facility:[facility]1 Start: 09-04-2022 End: 09-04-2022 ambulatory Gerry Chang Other [employer] Other Start: 09-04-2022 Telephone encounter Gerry Chang [facility] Start: 08-28-2022 End: 08-28-2022 ambulatory Gerry Chang Other [employer] Other Start: 08-28-2022 Nursing evaluation o f patient and report Gerry Chang [facility] Start: 07-27-2022 End: 07-27-2022 ambulatory Gerry Chang Other [employer] Other Start: 07-27-2022 Nursing evaluation o f patient and report Gerry Chang [facility] Start: 07-26-2022 End: 07-26-[address] GERRY CHANG Facility:[facility]1 Start: 07-07-2022 End: 07-07-2022 ambulatory Gerry Chang Other [employer] Other Start: 07-07-2022 Telephone encounter Gerry PICHARDO [facility] Start: 06-26-2022 End: 06-26-2022 ambulatory Gerry Chang Other [employer] Other Start: 06-26-2022 Nursing evaluation o f patient and report Gerry Chang [facility] Start: 06-14-2022 End: 06-14-[address] GERRY CHANG Facility:[facility]1 Start: 05-17-2022 End: 05-17-[address] GERRY CHANG Facility:[facility]1 Start: 05-03-2022 End: 05-03-[address] GERRY CHANG Facility:[facility]1 Start: 04-05-2022 End: 04-06-[address] GERRY CHANG Facility:[facility]1 Start: 04-03-2022 End: 04-03-2022 Patient encounter procedure Jenaro HANSEN [facility] Start: 03-27-2022 Adult health examination Carlitos Chang Other [employer] Other Start: 03-27-2022 Pre-procedure evalua tion check Gerry Chang Other [facility] [employer] Other Start: 03-22-[address] GERRY CHANG Facili ty:H1 Start: 03-13-2022 Telephone encounter Kendall Alston gwendolyn MEJIAS.SATELLITE TV TECHNICIAN INSTALLER Work Phone: Hematology/Oncology Comment on above: Lab [...] Start: 03-23-2021 End: 03-23-2021 ambulatory MARYJO KIDD [facility] Procedures Date Procedure Procedure Detail Performing Clinician Start: 03-21-2024 CRYOTHERAPY SKIN LESION Ashley Manzano VACCINE KEY CUSTOMER LEADER-SATELLITE TV TECHNICIAN INSTALLER Work Phone: Start: 08-28-2023 Excision of lesion of cheek DO Gerry Chang Work Phone: Start: 03-03-[address] GERRY CHANG Comment on above: Performed By: #### PSAD #### [facility] [address] [address] [address] Dave Duffy Start: 11-25-2020 Adult depression [...] [address] [place] [address] Ashley Manzano, VACCINE KEY CUSTOMER LEADER-SATELLITE TV TECHNICIAN INSTALLER [address] [place] [address] [facility] Start: 03-21-2024 End: 03-21-2024 Patient encounter procedure 03/21/2024 8:30 AM EDT Office Visit [facility] [address] [place] [id number] Ashley Manzano, VACCINE KEY CUSTOMER LEADER-SATELLITE TV TECHNICIAN INSTALLER [address] [place] [address] Arrived [facility] Comment on above: Arrived Start: 02-03-2024 Influenza vaccination Influenza Vacc ine (#1) [facility] Start: 08-28-2023 [facility] Start: 08-28-2023 [facility] Start: 03-23-2022 COLORECTAL CANCER SCREENING COLORECTAL CANCER SCREENING [facility] Start: 03-23-2022 FECAL OCCULT BLOOD FECAL OCCULT BLOO D [facility] Start: 03-13-2022 End: 05-13-2022 CBC W Auto Differential panel - Blood CBC + DIFF Lab Routine Non-Hodgkin's lymphoma, unspecified body region, unspecified non-Hodgkin lymphoma type (HCC) Expected: 03/13/2022, Expires: 05/13/2022 [facility] Work Phone: Comment on above: Expected: 03/13/2022 , Expires: 05/13/2022 Start: 03-13-2022 End: 05-13-2022 Comprehensive metabolic 2000 panel - Serum or Plasma COMP METABOLIC PANEL Lab Routine Non-Hodgkin's lymphoma, unspecified body region, unspecified non-Hodgkin lymphoma type (HCC) Expected: 03/13/2022, Expires: 05/13/2022 [facility] Work Phone: Comment on above: Expected: 03/13/2022 , Expires: 05/13/2022 Start: 03-13-2022 End: 05-13-2022 Lactate dehydrogenase [Enzymatic activity/volume] in Serum or Plasma LD LACTATE DEHYDRO Lab Routine Non-Hodgkin's lymphoma, unspecified body region, unspecified non-Hodgkin lymphoma type (HCC) Expected: 03/13/2022, Expires: 05/13/2022 [facility] Work Phone: Comment on above: Expected: 03/13/2022 , Expires: 05/13/2022 Start: 02-02-2022 Influenza vaccination INFLUENZA (#1) [facility] Start: 11-25-2021 Adult depression screening assessment DEPRESSION SCREENING [facility] Start: 09-23-2021 Colonoscopy COLONOSCOPY [facility] Start: 06-04-2021 ADVANCE DIRECTIVE DISCUSSION ADVANCE DIRECTIVE DISCUSSION [facility] Start: 06-04-2021 DEPRESSION ASSESSMENT DEPRESSION ASS ESSMENT [facility] Start: 04-11-2021 COVID-19 VACCINE (4 - Booster for Pfizer series) COVID-19 VACCINE (4 - Booster for Pfizer series) [facility] Start: 1992 COLOGUARD (FIT-DNA) COLOGUARD (FIT-D NA) [facility] Start: [address] [facility] Start: 1992 SIGMOIDOSCOPY SIGMOIDOSCOPY [facility] Start: 1966 Urine microalbumin profile DTAP,TDAP,TD (1 - Tdap) [facility] Start: 1965 ANNUAL PCP TEAM RN CLINICAL COORDINATOR ALETHA DISEASE VISIT ANNUAL PCP TEAM CHRONIC DISEASE VISIT [facility] Start: 1965 Hepatitis B surface antibody level LDL CHOLESTEROL [facility] Start: 1965 HEPATITIS C SCREENING HEPATITIS C SC REENING [facility] Start: 1957 3 comp foot exam completed DIABETIC FOOT EXAM [facility] Start: 1957 Hepatitis C antibody , confirmatory test DILATED RETINAL EXAM [facility] Start: 1953 PNEUMOCOCCAL: 65+ (1 - PCV) PNEUMOCOCCAL: 65+ (1 - PCV) [facility] Start: 1952 Hemoglobin A1c/Hemoglobin.total in Blood HBA1C [facility] Comprehensive metabo lic 1999 panel - Serum or Plasma [facility] Patient referral [facility] Work Phone: Renal function 1999 panel - Serum or Plasma [facility] Immunizations Immunization Date Immunization Notes Care Provider Fa cility 02-13-2024 influenza virus vaccine, unspecified formulation Ashley Manzano VACCINE KEY CUSTOMER LEADER-SATELLITE TV TECHNICIAN INSTALLER Work Phone: [facility] 03-13-2023 COVID-19 Vaccine Pfi zer - Documentation Purposes Only Gerry Chang Other [facility] 03-13-2023 influenza virus vaccine, unspecified formulation [facility] 03-13-2023 Influenza, Seasonal, Quadrivalent, Adjuvanted Ashley Manzano VACCINE KEY CUSTOMER LEADER-SATELLITE TV TECHNICIAN INSTALLER Work Phone: [facility] 03-13-2023 influenza, high dose seasonal, preservative-free Gerry Chang Other [facility] [employer] Other 02-23-2022 influenza virus vaccine, split virus (incl. purified surface antigen) Gerry Chang Other [facility] [employer] Other 02-23-2022 influenza virus vaccine, unspecified formulation [facility] 02-23-2022 Influenza, Seasonal, Quadrivalent, Adjuvanted Ashley Manzano VACCINE KEY CUSTOMER LEADER-SATELLITE TV TECHNICIAN INSTALLER Work Phone: [facility] 02-23-2022 SARS-CoV-2 (COVID-19 ) [id number] Jenaro HANSEN [facility] 09-13-2021 SARS-CoV-2 mRNA (lhwszgaiava-lnax-eehfw se) vaccine Jenaro HANSEN [facility] 02-25-2021 influenza virus vaccine, split virus (incl. purified surface antigen) Geryr Chang Other [employer] Other 02-25-2021 influenza virus vaccine, unspecified formulation [facility] 02-25-2021 Seasonal trivalent influenza vaccine, adjuvanted, preservative free Aileen Jenkins RN [facility] 01-17-2021 SARS-CoV-2 (COVID-19 ) mRNA BNT-162b2 vax Jenaro HANSEN [facility] Comment on above: Result Comment: 2023: [id number] 07-28-2020 COVID-19 Vaccine Pfi zer - Documentation Purposes Only Gerry Chang Other [facility] Comment on above: Result Comment: 2023: [id number] 07-07-2020 COVID-19 Vaccine Pfi zer - Documentation Purposes Only Gerry Chang Other [facility] Comment on above: Result Comment: 2023: [id number] 02-05-2020 influenza virus vaccine, unspecified formulation Jenaro HANSEN [facility] 02-05-2020 influenza, high-dose , quadrivalent vaccine (FLUZONE HIGH DOSE QUADRIVALENT) Aileen Jenkins RN [facility] 08-17-2019 zoster vaccine recombinant Aileen Jenkins RN [facility] 06-01-2019 zoster vaccine recombinant Aileen Jenkins RN [facility] 03-12-2019 influenza virus vaccine, split virus (incl. purified surface antigen) Gerry Chang Other [facility] [employer] Other 03-12-2019 influenza virus vaccine, unspecified formulation [facility] 03-26-2018 influenza virus vaccine, split virus (incl. purified surface antigen) Gerry Chang Other [facility] [employer] Other 03-26-2018 influenza virus vaccine, unspecified formulation [facility] 03-26-2018 Seasonal trivalent influenza vaccine, adjuvanted, preservative free Aileen Jenkins RN [facility] 11-16-2017 diphtheria, tetanus toxoids and acellular pertussis vaccine, unspecified formulation Gerry Chang Other [facility] 04-12-2017 influenza virus vaccine, split virus (incl. purified surface antigen) Gerry Chang Other [facility] [employer] Other 04-12-2017 influenza virus vaccine, unspecified formulation [facility] 04-12-2017 influenza, high dose seasonal, preservative-free Aileen Jenkins RN [facility] 03-15-2016 influenza virus vaccine, split virus (incl. purified surface antigen) Gerry Chang Other [facility] [employer] Other 03-15-2016 influenza virus vaccine, unspecified formulation [facility] 03-15-2016 influenza, high dose seasonal, preservative-free Aileen Jenkins RN [facility] 04-09-2015 pneumococcal conjuga te vaccine, 13 valent Gerry Chang Other [facility] 04-06-2015 influenza virus vaccine, split virus (incl. purified surface antigen) Gerry Chang Other [facility] [employer] Other 04-06-2015 influenza virus vaccine, unspecified formulation [facility] 04-06-2015 influenza, high dose seasonal, preservative-free Aileen Jenkins RN [facility] 03-16-2014 pneumococcal Conjuga te, unspecified formulation; Translations: [Need for prophylactic vaccination against Streptococcus pneumoniae (pneumococcus)] Gerry Chang Other [facility] [employer] Other 03-16-2014 pneumococcal polysaccharide vaccine, 23 valent Gerry Chang Other [facility] 03-16-2014 tetanus and diphther ia toxoids, adsorbed, preservative free, for adult use (5 Lf of tetanus toxoid and 2 Lf of diphtheria toxoid) Gerry Chang Other [facility] 04-10-2013 zoster vaccine, live Aileen Bonilla [facility] 03-26-2002 diphtheria, tetanus toxoids and acellular pertussis vaccine, unspecified formulation Gerry Chang Other [facility] Payers Date Payer Category Payer Private Health Insurance [id number] 2004 Medicare [id number] 1959 Medicare [id number] 1959 Self-pay 1959 Unknown [id number] 1947 Unknown [id number] 2.16.840.1.690834.3.579.2. 593 1947 Unknown [id number] 2.16.840.1.047771.3.579.2. 593 1947 Unknown [id number] 2.16.840.1.974958.3.579.2. 593 1947 Unknown [id number] 2.16.840.1.484470.3.579.2. 593 1947 Unknown [id number] 2.16.840.1.514636.3.579.2. 593 1947 Unknown [id number] 2.16.840.1.528932.3.579.2. 593 1947 Unknown [id number] 2.16.840.1.465807.3.579.2. 593 1947 Unknown [id number] 2.16.840.1.328423.3.579.2. 593 1947 Unknown [id number] 2.16.840.1.778865.3.579.2. 593 1947 Unknown [id number] 2.16.840.1.971246.3.579.2. 593 1947 Unknown [id number] 2.16.840.1.838381.3.579.2. 593 1947 Unknown [id number] 2.16.840.1.944045.3.579.2. 593 1947 Unknown [id number] 2.16.840.1.825831.3.579.2. 593 1947 Unknown [id number] 2.16.840.1.166882.3.579.2. 593 1947 Unknown [id number] 2.16.840.1.288128.3.579.2. 593 1947 Unknown [id number] 2.16.840.1.957842.3.579.2. 593 1947 Unknown [id number] 2.16.840.1.245514.3.579.2. 593 1947 Unknown [id number] 2.16.840.1.895177.3.579.2. 593 1947 Unknown [id number] 2.16.840.1.901645.3.579.2. 1259 1947 Unknown [id number] 2.16.840.1.380740.3.579.2. 1259 1947 Unknown [id number] 2.16.840.1.198041.3.579.2. 1259 1947 Unknown [id number] 2.16.840.1.373568.3.579.2. 1259 1947 Unknown [id number] 2.16.840.1.087234.3.579.2. 1259 1947 Unknown [id number] 2.16.840.1.215537.3.579.2. 1259 1947 Unknown [id number] 2.16.840.1.751062.3.579.2. 1259 1947 Unknown [id number] 2.16.840.1.256193.3.579.2. 1259 1947 Unknown [id number] 2.16.840.1.490918.3.579.2. 727 1947 Unknown [id number] 2.16.840.1.718965.3.579.2. 727 Medicare Medicare Outpatient [id number] Private Health Insurance [facility] [id number] Unknown [id number] 2.16.840.1.973383.3.579.2. 593 Unknown [id number] 2.16.840.1.572030.3.579.2. 531 Unknown [id number] 2.16.840.1.369149.3.579.2. 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 Start: 03-06-2023 Alcohol Comment Monthly or less [facility] Tobacco smoking status Never [facility] Start: 06-13-2024 Sex Male (finding) [facility] Medical Equipment Procedure Code Equipment Code Equipment Original Text Equi pment Identifier Dates 1 each by Other route if needed Goals Date Patient Goal Desired Activity /State Functional Status Date Assessment Result Facility 04-14-2024 Functional Status N/A [facility] 04-03-2022 Functional Status N/A [facility] Clinical Notes 05-02-2019 to 04-14-2024 Note Date [...] treatment? Where to find more information [employer] [place] [employer]: www.cancer.org [employer]: www.auanet.org Contact a health care [...] provider. Document Revised: 11/14/2021 Document Reviewed: 11/14/2021 [employer] Patient Education 2023 Fitfully. Follow Up Care 04/08/2024 11:27:26 With:AJDE DOYLE, Jenaro Roberto, URL Address: [facility] [address], [place] [address] [phone] When: Unknown Comments:6 mos w/ PSA [facility] 04-14-2024 Note Urology Office/Clini c Note Chief [...] Urology [address], [place] [address] [phone] Additional Instructions: 6 mos w/ PSA Patient [...] Daily Tradjenta, Oral, (more content not included)... [facility] Comment on above: Result Comment: Elec tronically [...] Where to find more information ??? [employer] [place] [employer]: www.cancer.org ??? [place]: www.auanet.org Contact a health care [...] The prostate gland (more content not included)... [facility] 03-31-2024 Evaluation note Diagnosis Onset Date Resolution [...] kidney disease acute May 05, 2024 2:29pm [facility] Work Phone: [phone]) 665-693510-18-2024 History of Present illness Narrative* Ashley Manzano, VACCINE KEY CUSTOMER LEADER-SATELLITE TV TECHNICIAN INSTALLER - 03/21/2024 8:30 AM EDT Skin Check [...] Anterior (2), Right Forearm - Posterior, Right Voodoo Erythematous scaly papules Patient was counseled regarding [...] limited to risks of scarring, darker or industrial safety and health manager pigmentary changes, recurrence, incomplete removal and infection. [...] Anterior (2), Right Forearm - Posterior, Right Voodoo 5. Capillary angioma (2) Left Arm, Right [...] 1 year, skin check documented [facility] [id number] Evaluation note* Encounter Date Diagnosis Assessment Notes Treatment Notes Treatment Clinical Notes Jun, Pernicious anemia (ICD-10 - D51.0) [employer] Other 10-24-2023 Evaluation note* Encounter Date Diagnosis [...] index [BMI] 30.0-30.9, adult (ICD-10 - Z68.30) [employer] Other 09-29-2023 Evaluation note* Encounter Date Diagnosis [...] in public places for complete 10 days [employer] Other 09-05-2023 Evaluation note* Encounter Date Diagnosis Assessment Notes Treatment Notes Treatment Clinical Notes Feb, Pernicious anemia (ICD-10 - D51.0) [employer] Other 07-31-2023 Evaluation note* Encounter Date Diagnosis Assessment Notes Treatment Notes Treatment Clinical Notes Dec, Pernicious anemia (ICD-10 - D51.0) [employer] Other 06-26-2023 Evaluation note* Encounter Date Diagnosis Assessment Notes Treatment Notes Treatment Clinical Notes Nov, Pernicious anemia (ICD-10 - D51.0) [employer] Other 03-27-2023 Evaluation note* Encounter Date Diagnosis Assessment Notes Treatment Notes Treatment Clinical Notes Aug, Pernicious anemia (ICD-10 - D51.0) [employer] Other 02-23-2023 Evaluation note* Encounter Date Diagnosis Assessment Notes Treatment Notes Treatment Clinical Notes Jul, Pernicious anemia (ICD-10 - D51.0) [employer] Other 01-23-2023 Evaluation note* Encounter Date Diagnosis Assessment Notes Treatment Notes Treatment Clinical Notes Jun, Pernicious anemia (ICD-10 - D51.0) [employer] Other 10-31-2022 Hospital Discharge instructions Patient Education [...] including vitamins, herbs, eye drops, creams, and bcrb-xeh-jnkvepk medicines. This also includes: ?Medicines to assist [...] 06/23/2005 Document Revised: 05/03/2018 Document Reviewed: 02/25/2018 [employer] Patient Education 2020 Fitfully. Follow Up Care 03/28/2021 16:51:27 With:JADE DOYLE, Jenaro Roberto, URL Address: [facility] [address] [place] [address]- [phone] When: only if needed [facility] 10-10-2022 Miscellaneous Notes* Telephone Encounter - Irena Cabrera - 03/13/2022 2:48 PM EDT Per last note 03/2021 follow up with labs. Please add lab orders for Sunday03/22/22. Thanks. Irena Cabrera MA documented in [facility]-27-2022 NoteHNO ID: [id number] Author: Iona Cabrera RN Service: ? Author Type: Registered Nurse Type: Progress Notes Filed: 02/28/2022 2:28 PM Note Text: Report of findings called to Trisha VIDAL at Dr. Jasso' office. She states she will let Dr. Reyes know. Elisabeth Cabrera RN[facility]-26-2022 NoteHNO ID: [id number] Author: Iona Cabrera RN Service: ? Author [...] Reyes as scheduled on 03/01/22. Elisabeth Cabrera RN[facility]09-26-2022 History of Present illness Narrative* Iona Cabrera [...] Elisabeth Cabrera RN documented in this encounterUc Health09-23-2022 Miscellaneous Notes* Telephone Encounter - Yoly Boss PA-C - 02/24/2022 8:21 AM EDT Done Yoly Boss PA-C * Telephone Encounter - Eamon Biswas RN - 02/23/2022 4:40 PM EDT Patient of Dr Kidd who is scheduled for cath vernell 02/27/22 per prior phone encounter, can you please place orders. Thanks! Eamon Biswas RN documented in this encounterUc Health09-20-2022 Miscellaneous Notes* Telephone Encounter - Allyssa Rueda - 02/21/2022 1:51 PM EDT Patient has been scheduled for activase on Sunday, 02/27. Called and spoke with regarding this appointment. Allyssa Rueda * Telephone Encounter - Aileen Fish [facility] - 02/21/2022 1:12 PM EDT Xray report scanned. * Telephone Encounter - Aileen Jenkins RN - 02/21/2022 12:24 PM EDT Spoke with and informed her that the orders were placed. NSG: states that it was accessed 2 days in a row at [facility] and there was swelling above port site. Dr. Reyes thought perhaps the nurse missed as they use a smaller port at [place] which is where he had it placed. Informed that if we have swelling while patient is here, we would not proceed. verbalized understanding. PSS: please call patient/ to schedule on infusion schedule for possible 2 doses of activase. Jamia: Can you get an xray that was taken of the port at [facility] recently. ( states they did one) * [...] the treatment schedule. documented in this encounterUc Health06-08-2022 NotePROCEDURE: XR FOOT LT MIN 3 VIEWS [...] Electronically authenticated by: ALONZO MADRIGAL Date: 2021-11-09 17:01[facility]10-20-2021 NoteHNO ID: [id number] Author: Kendall Honeycutt APRN.SATELLITE TV TECHNICIAN INSTALLER Service: ? Author Type: Nurse Practitioner Type: Progress Notes Filed: 03/25/2021 12:42 PM Note Text: Patient: Eugenio Crews Location: [facility] : 1945 Attending Physician: Dr. Kings Jones [...] in September with Dr. Reyes in [place]. He denies fevers, chills, night sweats and [...] with any questions or concerns. Kendall Honeycutt APRN.SATELLITE TV TECHNICIAN INSTALLER March 23, 2021 I spent a total of 30 minutes on the date of the service which included preparing to see the patient, nosg-sv-yeue patient care, completing clinical documentation, obtaining and/or reviewing separately obta (more content not included)...[facility]11-[facility] History of Past illness Narrative* Problem [...] this encounter (statuses as of 02/21/2022) [facility] History of Past illness Narrative* Problem Noted [...] this encounter (statuses as of 02/27/2022) [facility] History of Past illness Narrative* Problem Noted [...] this encounter (statuses as of 03/02/2022) [facility] History of Past illness Narrative* Problem Noted [...] this encounter (statuses as of 03/13/2022) [facility] No data available for this section [facility] evaluation + Plan note Future Appointments Appointment Date:10/06/2024 08:45:00 AM Scheduled Provider:Jenaro HANSEN MD Location:[facility] Appointment Type:URO Office Visit Diagnostic Tests Pending * PSA Total 04/14/24 [facility] evaluation note* Diagnosis Obstruction of central line, initial encounter (HCC) [facility] Diagnosis Obstruction of central line, initial encounter (HCC)- Primary Follicular lymphoma, unspecified follicular lymphoma type, unspecified body region (HCC) [facility]* Diagnosis Non-Hodgkin's lymphoma, unspecified body region, unspecified non-Hodgkin lymphoma type (HCC)- Primary documented in this encounter [facility] noteNo [employer] Other Evaluation note* Diagnosis Onset Date Resolution Status Chronic venous insufficiency acute Diabetes mellitus with hyperglycemia acute Hyperlipidemia, mixed acute Pernicious anemia acute Primary hypertension acute 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 [facility] Work Phone: [email or web address] noteNo assessment information available [facility] Work Phone: evaluation note* Diagnosis Onset Date Resolution Status Herpes zoster acute Type 2 diabetes mellitus with hyperglycemia acute Chronic venous insufficiency acute Hyperlipidemia, mixed acute Pernicious anemia acute Primary hypertension acute 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 Type 2 diabetes mellitus with hyperglycemia acute [facility] Work Phone: evaluation note* Diagnosis Onset Date Resolution Status Chronic venous insufficiency acute Hyperlipidemia, mixed acute Pernicious anemia acute Primary hypertension acute 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 Type 2 diabetes mellitus with hyperglycemia acute [facility] Work Phone: evaluation note* Diagnosis Melanocytic nevus of right upper extremity Melanocytic nevus of left upper extremity Seborrheic keratosis Actinic keratosis Capillary angioma Nevus, non-neoplastic History of SCC (squamous cell carcinoma) of skin Personal history of other malignant neoplasm of skin documented in this encounter [facility] HealthcareEvaluation note* Diagnosis Onset Date Resolution Status Chronic kidney disease acute Chronic venous insufficiency acute Hyperlipidemia, mixed acute Medicare annual wellness visit, subsequent acute Obesity acute Pernicious anemia acute Primary hypertension acute Screening PSA (prostate specific antigen) acute 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 Type 2 diabetes mellitus with hyperglycemia acute [facility] Work Phone: History general Narrative - Reported* Type Description Date Surgical History Problem Title : COLONOSCOPY (81 378), Problem Status : Active, Surgical History Problem Title : DAREN ERTOE REPAIR (03020), Problem Comment : left 2nd toe, Problem Status : Active, Surgical History Problem Title : Knee arthroscopy, Problem Comment : multiple [id number], Problem Status : Inactive, Surgical History Problem Title : OSTE CTOMY OF TARSAL COALITION OF LEFT FOOT (09007), Problem Status : Active, Surgical History Problem [...] Foot Ulcer 09/2108, Problem Status : Active, [employer] Other History general Narrative - Reported* Type [...] : Active,, Medical History Problem Title : [facility] Annual Wellness Exam, Problem Description : Medicare Annual Wellness Exam, Problem Comment : G0439, Problem Status : Active,, Medical History Problem Title : [facility] Part B,CMOD Checklist #1, Problem Description : [...] History Problem Title : DAREN ERTOE REPAIR (91970), Problem Comment : left 2nd toe, Problem Status : Active, Surgical History Problem Title : Knee arthroscopy, Problem Comment : multiple [id number], Problem Status : Inactive, Surgical History Problem Title : OSTE CTOMY OF TARSAL COALITION OF LEFT FOOT (94053), Problem Status : Active, Surgical History Problem [...] Foot Ulcer 09/2108, Problem Status : Active, [employer] Other History general Narrative - Reported* Type [...] left 2nd toe Surgical History Knee arthroscopy [id number] Surgical History OSTECTOMY OF TARSAL COALITION O F LEFT FOOT Surgical History Resection of Large Bowel Surgical History Debridement Left Foot Ulcer 2018 Hospitalization History see surgical history [employer] Other Hospital Discharge instructions Additional Instructions 1. Sleep on 2 pillows 2. Small amount of Vaseline to sutures twice daily 3. You may shower late tomorrow afternoon, soap and water okay on wound 4. Tylenol or Motrin for discomfort 5 take antibiotic as prescribed 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 Advance Directive(s) 09/10/2009 10:04 PM Advance Directive Response Recorded Date/ Time Advance Directives No June 23, 2023 1:43pm Advance Directive Response Recorded Date/ Time Advance Directives No August 21 2:39pm Advance Directive Response Recorded Date/ Time Advance Directives No August 21 1:39pm Summary Purpose Family History Relationship Condition Age at Onset Recorded Date/T dioog Not Specified Heart disease Unknown sister Malignant [...] prosecute any alcohol or drug abuse patient.[facility] the event this information is protected by the Federal Confidentiality of Alcohol and Drug Abuse Patient Records regulations: The Federal rules restrict any use of the information to criminally investigate or prosecute any alcohol or drug abuse patient.[facility] the event this information is protected by the Federal Confidentiality of Alcohol and Drug Abuse Patient Records regulations: The Federal rules restrict any use of the information to criminally investigate or prosecute any alcohol or drug abuse patient.[facility] Health[facility] the event this information is protected by the Federal Confidentiality of Alcohol and Drug Abuse Patient Records regulations: The Federal rules restrict any use of the information to criminally investigate or prosecute any alcohol or drug abuse patient.[facility] Reason for Visit (unrecogniz ed section and [...] November 28, 2023 End: November 28, 2023 Guidance Services Coordinator Relationship Specialty Start Date End Date Gerry Chang, DO [address] [place] [address] PCP - General 09/07/09 Guidance Services Coordinator Relationship Specialty Start Date End Date Gerry Chang, DO [address] [place] [address] PCP - General 09/07/09 Guidance Services Coordinator Relationship Specialty Start Date End Date Gerry Chang, DO [address] [place] [address] PCP - General 09/07/09 Guidance Services Coordinator Relationship Specialty Start Date End Date Gerry Chang, DO [address] [place] [address] PCP - General 09/07/09 Team Status: Active [...] February 05, 2024 End: February 05, 2024 Guidance Services Coordinator Relationship Specialty Start Date End Date Gerry Chang MD PCP - General Internal Medicine 08/04/23 Talib Gant MD [address] [place] [address] Referring Physician Dermatology 10/31/23 Gerry Nelson DO [address] [place] [address] Otolaryngology 10/31/23 Guidance Services Coordinator Relationship Specialty Start Date End Date Gerry Chang MD PCP - General Internal Medicine 08/04/23 Talib Gant MD [address] [place] [address] Referring Physician Dermatology 10/31/23 Gerry Nelson DO [address] [place] [address] Otolaryngology 10/31/23 Team Status: Inactive Member Role [...] section and content) DATE CREATED AUTHOR 03/05/2022 [facility] DATE CREATED AUTHOR AUTHOR'S ORGANIZ ATION 10/18/2022 [facility] DATE CREATED AUTHOR AUTHOR'S ORGANIZ ATION 09/10/2023 [facility] DATE CREATED AUTHOR AUTHOR'S ORGANIZ ATION 03/23/2024 [facility] DATE CREATED AUTHOR AUTHOR'S ORGANIZ ATION 04/15/2024 [facility] Goals (unrecognized section and content) Goals may [...] BE BASED ON THE PRIMARY CLINICAL RECORDS. [facility]. provides no warranty or guarantee of the accuracy or completeness of information in this document.
[2024-07-24 16:09] LABS: Albumin 3.4 g/dL (2.9-4.4); Alpha-1-Globulin 0.3 g/dL (0.0-0.4); Alpha-2-Globulin 0.7 g/dL (0.4-1.0); Free Kappa Lt Chains,S 54.4 mg/L (3.3-19.4); Free Lambda Lt Chains,S 45.5 mg/L (5.7-26.3); Gamma Globulin 0.7 g/dL (0.4-1.8); Immunofixation Result, Serum Comment: (.); Immunoglobulin A, Qn, Serum 214 mg/dL (61-437); Immunoglobulin G, Qn, Serum 663 mg/dL (603-1613); Immunoglobulin M, Qn, Serum 80 mg/dL (15-143)
== END 2024-07-21 07:31 | disposition home or self-care (01) ==
LOC: LAB 07:32
PROVIDERS: PCP Internal Medicine; Visit Provider Internal Medicine
DX: D47.2 Monoclonal gammopathy (principal)
CPT/HCPCS: 36415; 82784; 83521; 84155; 84165

== ENCOUNTER 2024-09-29 08:14 | Outpatient (OUT) | payer MEDICARE, SELFPAY ==
[2024-09-29 10:03] LABS: Prostate Specific Antigen Dx 3.51 ng/mL (<=4.00)
== END 2024-09-29 08:15 | disposition home or self-care (01) ==
LOC: LAB 08:16
PROVIDERS: PCP Internal Medicine; Visit Provider Urology
DX: R97.20 Elevated prostate specific antigen [PSA] (principal)
CPT/HCPCS: 36415; 84153

== ENCOUNTER 2024-10-08 07:44 | Outpatient (OUT) | payer MEDICARE, SELFPAY ==
--- NOTE | 2024-10-08 08:02 | XR_ITS ---
The [address] [address] Patient Name: EUGENIO CREWS MRN: [id number] date: 1945 Sex: M Assigned Patient Location: LAB Current Patient Location: LAB Accession/Order Number: [id number] Exam Date: 10/08/2024 09:29 Report Date: 10/08/2024 09:48 At the request of: DONITA HANSEN MD Procedure: XR abdomen 1V KUB: CLINICAL INFORMATION: Kidney stone follow-up COMPARISON: Renal ultrasound 04/11/2024 FINDINGS: No suspicious urinary tract calcification. Phleboliths are seen within the pelvis. No bowel obstruction or free air. Osseous structures demonstrate degenerative change. XR/XR abdomen 1V IMPRESSION: NO SUSPICIOUS URINARY TRACT CALCULUS. Impression dictated by: Abdelrahman Barroso Jr. [email or web address] 10/08/2024 9:48 AM Dictation Location: [place] [address] Electronically authenticated by: [id number] Y Date: 10/08/2024 09:48
[2024-10-08 09:13] LABS: Prostate Specific Antigen Dx 3.01 ng/mL (<=4.00)
== END 2024-10-08 07:45 | disposition home or self-care (01) ==
PROVIDERS: PCP Internal Medicine; Visit Provider Urology
DX: N20.0 Calculus of kidney (principal); R97.20 Elevated prostate specific antigen [PSA]
CPT/HCPCS: 36415; 74018; 84153

== ENCOUNTER 2024-10-20 08:52 | Outpatient (OUT) | payer MEDICARE, SELFPAY ==
[2024-10-20 09:27] LABS: Hematocrit 34.7 % (42.0-54.0); Hemoglobin 11.9 g/dL (14.0-18.0); Mean Corpuscular HGB Conc 34.3 g/dL (29.9-35.2); Mean Corpuscular Hemoglobin 33.1 pg (25.9-34.0); Mean Corpuscular Volume 96.4 fL (80.0-94.0); Mean Platelet Volume 8.9 fL (9.5-13.5); Platelet Count 157 10^3/uL (150-450); Red Cell Distribution Width 12.1 % (11.0-15.0); White Blood Count 10.9 10^3/uL (4.0-11.0)
[2024-10-20 10:00] LABS: Creatinine Urine Random 119.43 mg/dL (20.00-300.00); Protein Creatinine Ratio Urine 1.04; Total Protein Urine Random 124.3 mg/dL (<=11.9)
[2024-10-20 10:03] LABS: Albumin Level 3.5 g/dL (3.4-5.0); Anion Gap 14.4; BUN Creatinine Ratio 13.3; Calcium 8.9 mg/dL (8.5-10.1); Carbon Dioxide 24.1 mmol/L (21.0-32.0); Chloride 105 mmol/L (98-107); Estimated GFR (African America 21 (>=60 mL/min/1.73m^2); Estimated GFR (Non-African Ame 17 (>=60 mL/min/1.73m^2); Glucose 192 mg/dL (74-106); Phosphorus 3.7 mg/dL (2.6-4.7); Potassium 5.5 mmol/L (3.5-5.1); Sodium 138 mmol/L (136-145); Uric Acid 5.2 mg/dL (3.5-7.2)
[2024-10-20 10:21] LABS: Percent Iron Saturation 22.6 %
[2024-10-21 09:09] LABS: PTH, Intact 100 pg/mL (15-65)
== END 2024-10-20 08:53 | disposition home or self-care (01) ==
LOC: LAB 08:53
PROVIDERS: PCP Internal Medicine; Visit Provider Internal Medicine
DX: E83.42 Hypomagnesemia (principal); D69.6 Thrombocytopenia, unspecified; N25.81 Secondary hyperparathyroidism of renal origin; N18.9 Chronic kidney disease, unspecified; D63.1 Anemia in chronic kidney disease; I12.9 Hypertensive chronic kidney disease with stage 1 through stage 4 chronic kidney disease, or unspecified chronic kidney disease
CPT/HCPCS: 36415; 80069; 82306; 82570; 82728; 83540; 83550; 83735; 83970; 84156; 84550; 85027

== ENCOUNTER 2024-10-24 07:13 | Outpatient (OUT) | payer MEDICARE, SELFPAY ==
--- OUTSIDE RECORDS SUMMARY | 2024-10-16 08:46 | XMS_ITS ---
Author Name Auto Generated Organization [facility] Care Team Providers [facility] Director Name Role Phone Jenaro GUEVARA Admitting Unavailable GUEVARA, Jenaro Roberto Attending Unavailable GUEVARA, Jenaro Roberto Attending Unavailable MELISSA, DIANNA Mann Attending Unavailable GUEVARA, Jenaro Roberto Attending Unavailable TAURUS BARTON Referring Unavailable GUEVARA, Jenaro Roberto Attending Unavailable GUEVARA, Jenaro Roberto Admitting Unavailable MELISSA, DIANNA Mann Admitting Unavailable MELISSA, DIANNA Mann Attending Unavailable TAURUS SONG Attending Unavailable ASHLEY CARPIO Attending Unavailable PROBLEMS No Problem Records Found PROCEDURES No Procedure Records Found RESULTS PATIENT EDUCATION Observed: 10/16/2024 10:10 AM Status: F Source: [facility] Patient Education Urology Hematuria, Adult Hematuria is blood in the urine. Blood may be visible in the urine, or it may be identified with a test. This condition can be caused by infections of the bladder, urethra, kidney, or prostate. Other possible causes include: ??? Kidney stones. ??? Cancer of the urinary tract. ??? Too much calcium in the urine. ??? Conditions that are passed from parent to child (inherited conditions). ??? Exercise that requires a lot of energy. Infections can usually be treated with medicine, and a kidney stone usually will pass through your urine. If neither of these is the cause of your hematuria, more tests may be needed to identify the cause of your symptoms. It is very important to tell your health care provider about any blood in your urine, even if it is painless or the blood stops without treatment. Blood in the urine, when it happens and then stops and then happens again, can be a symptom of a very serious condition, including cancer. There is no pain in the initial stages of many urinary cancers. Follow these instructions at home: Medicines ??? Take tvfu-upm-liueoof and prescription medicines only as told by your health care provider. ??? If you were prescribed an antibiotic medicine, take it as told by your health care provider. Do not stop taking the antibiotic even if you start to feel better. Eating and drinking ??? Drink enough fluid to keep your urine pale yellow. It is recommended that you drink 3?4 quarts (2.8?3.8 L) a day. If you have been diagnosed with an infection, drinking cranberry juice in addition to large amounts of water is recommended. ??? Avoid caffeine, tea, and carbonated beverages. These tend to irritate the bladder. ??? Avoid alcohol because it may irritate the prostate (in males). General instructions ??? If you have been diagnosed with a kidney stone, follow your health care provider's instructions about straining your urine to catch the stone. ??? Empty your bladder often. Avoid holding urine for long periods of time. ??? If you are female: ? After a bowel movement, wipe from front to back and use each piece of toilet paper only once. ? Empty your bladder before and after sex. ??? Pay attention to any changes in your symptoms. Tell your health care provider about any changes or any new symptoms. ??? It is up to you to get the results of any tests. Ask your health care provider, or the department that is doing the test, when your results will be ready. ??? Keep all follow-up visits. This is important. Contact a health care provider if: ??? You develop back pain. ??? You have a fever or chills. ??? You have nausea or vomiting. ??? Your symptoms do not improve after 3 days. ??? Your symptoms get worse. Get help right away if: ??? You develop severe vomiting and are unable to take medicine without vomiting. ??? You develop severe pain in your back or abdomen even though you are taking medicine. ??? You pass a large amount of blood in your urine. ??? You pass blood clots in your urine. ??? You feel very weak or like you might faint. ??? You faint. Summary ??? Hematuria is blood in the urine. It has many possible causes. ??? It is very important that you tell your health care provider about any blood in your urine, even if it is painless or the blood stops without treatment. ??? Take sxvf-bjg-iyxsahy and prescription medicines only as told by your health care provider. ??? Drink enough fluid to keep your urine pale yellow. This information is not intended to replace advice given to you by your health care provider. Make sure you discuss any questions you have with your health care provider. Document Revised: 01/19/2021 Document Reviewed: 01/19/2021 [employer] Patient Education ? 2023 [employer]. URINE CYTOLOGY ([facility]) Collected: 10/16/2024 8:49 A M Status: F Source: [facility] TYPE CODE TESTS RESULT OUT OF RANGE REFERENCE UNITS LAB 88741-7([facility]) MICROSCOPIC EXAM:IMP:PT:URI NE:NOM:CYTOLOGY Diagnosis Info Unknown Result Comment: A:Urine,Domi n Catch:Bladder Wash Interpretation - Adequate cellularity for evaluation. CPT 35090 MicroScopic Description - Adequacy - Gross Description Site ID:A color Yellow fixative Alcohol Specimen designated Clean Catch received in alcohol preservative and labeled with the patient???s name, consists of 80ml slightly cloudy yellow fluid. Electronically signed by : on: 10/21/2024 13:22:38 LAB CD:[id number]( [facility]) Number of Jars 1 Unknown LAB CD:[id number]( [facility]) Type of Service Technical Only Normal LAB CD:[id number]( [facility]) Method of Extraction Bladder Urine Normal LAB CD:[id number]( [facility]) Specimen Clean Catch Normal Performed By: #### [id number] #### [facility] [address] [place] [address] UROLOGY OFFICE/CLINIC NOTE Observed: 8:06 AM Status: F Source: [facility] Urology Office/Clinic Note Chief Complaint discuss UA micro results HPI Staff 79 year old male her to discuss MICRO UA reults Previous dx: BPH with urinary obstruction, elevated PSA, kidney stones, renal cyst, renal atrophy, left. * no uro meds pt is not having any urinary issues today Review of Systems PHQ Score Initial Depression Screen Score: 0 SCORE No fever, chills, malaise, myalgia. No dysuria, pain w/ ejaculation, pain w/ BM. No visible blood in urine, ejaculate, or stool. No change in urgency/frequency, straining, stream changes. No discharge, odor, or change in color of urine. No perineal pain/pressure, scrotal pain, or suprapubic pain. Physical Exam Vitals & Measurements T: 36.7 ???C(Oral) HR: 74(Peripheral) RR: 16 BP: 142/80 HT: 187 cm HT: 74 in WT: 104.3 kg WT: 229.942 lb BMI: 29.83 General: nontoxic, NAD Mouth: moist mucosa Lungs: normal respiratory effort Cardio: regular rate, good distal perfusion Abdomen: nondistended Neurologic: Grossly normal Skin: No rashes or suspicious lesions Assessment/Plan 1. Asymptomatic microscopic hematuria (R31.21: Asymptomatic microscopic hematuria) Denies gross hematuria. However, 4-20 RBCs on UA from last ov. No infection sx. Discussed options. The patient is aware that a distinct etiology of the hematuria may not be clear upon conclusion of the workup. Will initiate hematuria workup to include upper urinary tract imaging, as well as evaluation of the urinary cells with urine cytology and possible a FISH test. A cystoscopy will be scheduled to rule out lower urinary tract pathology. The rationale for this workup has been discussed, and all questions have been answered. The risks and benefits for cystoscopy have been discussed. The risks include bleeding, infection, and irritation of the bladder and urinary channel, among others. The patient, after being informed of procedural details and after questions have been answered, wishes to proceed. Full informed consent has been obtained. Will order Local anesthesia. Ordered: Body Mass Index (BMI) documented 3008F BUN Creatinine CT Urogram Current tobacco non-user 1036F Depression Screening Negative 3352F E&M of Est. Patient Moderate 30-39 Min 57142 Influenza immunization status assessed 1030F Medication list documented in medical record 1159F Most recent diastolic blood pressure 80-89 mm Hg 3079F Most recent systolic blood pressure >= 140 mm Hg 3077F Patient screen for fall risk: no falls in last year or 1 fall with no injury in last year 1101F Review of all meds by a prescribing practitioner or clinical pharmacist documented in EHR 1160F Urine Cytology ([facility]) Urnls Dip Stick Auto w/o Microscopy POC 80089 Orders: ciprofloxacin, 500 mg = 1 tab(s), Oral, Daily, Take 1 tablet the day before the procedure and 1 tablet after the procedure, # 2 tab(s), Refills(s) 0, Pharmacy: [facility]/pharmacy #[id number], 187, cm, 10/16/24 8:21:00 EDT, Height/Length Dosing, 104.3, kg, 10/16/24 8:21:00 EDT,... Follow-up With When Contact Information [facility] Additional Instructions: For procedure as scheduled. Patient Education Hematuria, Adult Problem List/Past Medical History Ongoing Arthritis Asymptomatic microscopic hematuria Basal cell carcinoma Bleeding disorder BPH with urinary obstruction Diabetes Elevated PSA Glucosuria Hyperlipidemia Hypertension Kidney stones Lymphoma Non-Hodgkin's lymphoma (clinical) Protein in urine Renal atrophy, left Renal cyst Historical No qualifying data Procedure/Surgical History Cystoscopy (06/15/2014), Urodynamics (06/26/2012), Cystoscopy (06/14/2012), Cholecystectomy (2011), Colonoscopy, EGD - Esophagogastroduodenoscopy, Laparoscopy, Partial resection of colon, Total knee arthroplasty, Transurethral biopsy prostate, TURP - Transurethral resection of prostate. Medications aspirin, 81 mg, Oral, Daily atorvastatin, 10 mg, Oral, Daily Basaglar KwikPen 100 units/mL subcutaneous solution, 8 unit(s), SubCutaneous, Daily calcitriol 0.25 mcg Cap, 0.25 mcg= 1 cap(s), Oral, Daily calcium (as carbonate) 600 mg oral tablet, 600 mg= 1 tab(s), Oral, Daily carvedilol, 6.25 mg, Oral, BID Cipro 500 mg Tab, 500 mg= 1 tab(s), Oral, Daily glimepiride, 4 mg, Oral, BID Januvia 25 mg Tab, 25 mg= 1 tab(s), Oral, Daily lisinopril, 2.5 mg, Oral, Daily magnesium oxide 400 mg Tab, 400 mg= 1 tab(s), Oral, Daily Allergies Toradol (Unknown) Zolinza (Unknown) ketorolac (Unknown, Unknown) piperacillin-tazobactam (Unknown, Eruption) tazobactam (Unknown) vorinostat (Unknown) Social History Alcohol - Denies Alcohol Use, 11/27/2019 Never., 04/09/2024 Substance Abuse Never., 04/09/2024 Tobacco - Denies Tobacco Use, 11/27/2019 Never (less than 100 in lifetime) Tobacco Use:. Never Smokeless Tobacco Use:., 10/16/2024 Family History Diabetes mellitus type 2: Mother. Heart disease: Mother and Father. Liver disease: Father. Immunizations Vaccine Date Status Comments influenza virus vaccine, inactivated 02/13/2024 Recorded influenza virus vaccine, inactivated 03/13/2023 Recorded influenza virus vaccine, inactivated 02/23/2022 Recorded SARS-CoV-2 (COVID-19) mRNAMUL.ORD![id number] 02/23/2022 Recorded SARSCoV2 mRNA(ihumaxlho-fzub-osfohy) vac 09/13/2021 Recorded influenza virus vaccine, inactivated 02/25/2021 Recorded SARS-CoV-2 (COVID-19) mRNA BNT-162b2 vax 01/17/2021 Recorded 2024-04-14: TPV70 SARS-CoV-2 (COVID-19) mRNA BNT-162b2 vax 07/28/2020 Recorded 2024-04-14: TPV70 SARS-CoV-2 (COVID-19) mRNA BNT-162b2 vax 07/07/2020 Recorded 2024-04-14: TPV70 influenza virus vaccine, inactivated 02/05/2020 Recorded zoster vaccine, inactivated 08/17/2019 Recorded zoster vaccine, inactivated 06/01/2019 Recorded influenza virus vaccine, inactivated 03/26/2018 Recorded influenza virus vaccine, inactivated 04/12/2017 Recorded influenza virus vaccine, inactivated 03/15/2016 Recorded influenza virus vaccine, inactivated 04/06/2015 Recorded zoster vaccine live 04/10/2013 Recorded Lab Results Ambulatory Point of Care Results Bilirubin Urine Dipstick: Negative (10/16/24 08:16:00) Blood Urine Dipstick: Trace-intact (10/16/24 08:16:00) Glucose Urine Dipstick: 2+ 500 mg/dl (10/16/24 08:16:00) Ketones Urine Dipstick: Negative (10/16/24 08:16:00) Leukocytes Urine Dipstick: Negative (10/16/24 08:16:00) Nitrite Urine Dipstick: Negative (10/16/24 08:16:00) Protein Urine Dipstick: 2+ (100 mg/dl) (10/16/24 08:16:00) Specific [place] Urine Dipstick: >=1.030 (10/16/24 08:16:00) Urine Appearance Urine Dipstick: Clear (10/16/24 08:16:00) Urine Color Urine Dipstick: Yellow (10/16/24 08:16:00) Urobilinogen Urine Dipstick: Normal 0.2-1 EU/dl (10/16/24 08:16:00) pH Urine Dipstick: 5.5 (10/16/24 08:16:00) Result Comment: Electronical ly Signed By: DIANNA TORRES PA-C\Date and Time Signed: 10/16/24 10:11 EDT URINALYSIS WITH MICRO Collected: 2024 10:41 AM Status: F Source: [facility] TYPE CODE TESTS RESULT OUT OF RANGE REFERENCE UNITS LAB 9194-2([facility]) CLASS:TYPE:PT: URINE COLLECTION METHOD:NOM:* Random Urine Normal LAB 26978-5([facility]) OBSERVATION:CO YUN:PT:URINE:N OM:AUTOMATED Light-Yello w Normal Yellow Result Comment: Microscopic readings are only performed on those samples that meet specific criteria set forth by [facility]. LAB 75233-7([facility]) CLARITY:TYPE:P T:URINE:NOM: Clear Normal Clear LAB 5811-5([facility]) OBSERVATION:SP GRAV:PT:URINE: SEMIQN:TEST STRIP 1.017 Unknown 1.005-1.030 LAB 5803-2([facility]) PH:LSCNC:PT:UR INE:SEMIQN:[place] T STRIP 6.0 Unknown 5.0-9.0 LAB 04419-0([facility]) PROTEIN:PRTHR: PT:URINE:ORD:T EST STRIP 1+ Abnormal Negative mg/dL LAB 95487-4([facility]) GLUCOSE:PRTHR: PT:URINE:ORD:T EST STRIP 3+ Abnormal Negative mg/dL LAB 99767-7([facility]) KETONES:PRTHR: PT:URINE:ORD:T EST STRIP.AUTOMATE D Negative Normal Negative mg/dL LAB 91662-9([facility]) BILIRUBIN:PRTH R:PT:URINE:ORD :TEST STRIP.AUTOMATE D Negative Normal Negative mg/dL LAB 46657-8([facility]) HEMOGLOBIN:MCN C:PT:URINE:BECKY IQN:TEST STRIP.AUTOMATE D Trace Abnormal Negative mg/dL LAB 40680-0([facility]) NITRITE:PRTHR: PT:URINE:ORD:T EST STRIP.AUTOMATE D Negative Normal Negative mg/dL LAB 62772-8([facility]) UROBILINOGEN:M CNC:PT:URINE:S EMIQN:TEST STRIP Negative Normal Negative mg/dL LAB 40906-4([facility]) LEUKOCYTE ESTERASE:PRTHR :PT:URINE:ORD: TEST STRIP.AUTOMATE D Negative Normal Negative CD:35322 94236 LAB 91911-1([facility]) LEUKOCYTES:FIDELIA IC:PT:URINE SED:QN:AUTOMAT ED COUNT 0-5 Normal 0-5 CD:37223 32443 LAB 01670-3([facility]) ERYTHROCYTES:P RTHR:PT:URINE SED:ORD:MICROS COPY.LIGHT 4-20 Abnormal 0-3 CD:33975 67254 LAB 17516-1([facility]) EPITHELIAL CELLS.SQUAMOUS :NARIC:PT:URIN E SED:QN:AUTOMAT ED COUNT 0-2 Unknown CD:83326 25180 LAB 74345-3(LO[facility]) MUCUS:PRTHR:PT :URINE:ORD:AUT OMATED Trace Normal Negative CD:20467 29499 Performed By: #### [id number] #### [facility] [address] [place] [address] PATIENT EDUCATION Observed: 10/06/2024 9:07 AM Status: F Source: [facility] Patient Education Urology Hematuria, Adult Hematuria is blood in the urine. Blood may be visible in the urine, or it may be identified with a test. This condition can be caused by infections of the bladder, urethra, kidney, or prostate. Other possible causes include: ??? Kidney stones. ??? Cancer of the urinary tract. ??? Too much calcium in the urine. ??? Conditions that are passed from parent to child (inherited conditions). ??? Exercise that requires a lot of energy. Infections can usually be treated with medicine, and a kidney stone usually will pass through your urine. If neither of these is the cause of your hematuria, more tests may be needed to identify the cause of your symptoms. It is very important to tell your health care provider about any blood in your urine, even if it is painless or the blood stops without treatment. Blood in the urine, when it happens and then stops and then happens again, can be a symptom of a very serious condition, including cancer. There is no pain in the initial stages of many urinary cancers. Follow these instructions at home: Medicines ??? Take kouk-geu-wiwetpi and prescription medicines only as told by your health care provider. ??? If you were prescribed an antibiotic medicine, take it as told by your health care provider. Do not stop taking the antibiotic even if you start to feel better. Eating and drinking ??? Drink enough fluid to keep your urine pale yellow. It is recommended that you drink 3?4 quarts (2.8?3.8 L) a day. If you have been diagnosed with an infection, drinking cranberry juice in addition to large amounts of water is recommended. ??? Avoid caffeine, tea, and carbonated beverages. These tend to irritate the bladder. ??? Avoid alcohol because it may irritate the prostate (in males). General instructions ??? If you have been diagnosed with a kidney stone, follow your health care provider's instructions about straining your urine to catch the stone. ??? Empty your bladder often. Avoid holding urine for long periods of time. ??? If you are female: ? After a bowel movement, wipe from front to back and use each piece of toilet paper only once. ? Empty your bladder before and after sex. ??? Pay attention to any changes in your symptoms. Tell your health care provider about any changes or any new symptoms. ??? It is up to you to get the results of any tests. Ask your health care provider, or the department that is doing the test, when your results will be ready. ??? Keep all follow-up visits. This is important. Contact a health care provider if: ??? You develop back pain. ??? You have a fever or chills. ??? You have nausea or vomiting. ??? Your symptoms do not improve after 3 days. ??? Your symptoms get worse. Get help right away if: ??? You develop severe vomiting and are unable to take medicine without vomiting. ??? You develop severe pain in your back or abdomen even though you are taking medicine. ??? You pass a large amount of blood in your urine. ??? You pass blood clots in your urine. ??? You feel very weak or like you might faint. ??? You faint. Summary ??? Hematuria is blood in the urine. It has many possible causes. ??? It is very important that you tell your health care provider about any blood in your urine, even if it is painless or the blood stops without treatment. ??? Take nhnr-hdk-ggbzoyz and prescription medicines only as told by your health care provider. ??? Drink enough fluid to keep your urine pale yellow. This information is not intended to replace advice given to you by your health care provider. Make sure you discuss any questions you have with your health care provider. Document Revised: 01/19/2021 Document Reviewed: 01/19/2021 [employer] Patient Education ? 2023 [employer]. UROLOGY OFFICE/CLINIC NOTE Observed: 10/2024 8:33 AM Status: F Source: [facility] Urology Office/Clinic Note Chief Complaint 6 month follow up with PSA HPI Staff 79 year old male patient here for a 6 month follow up with PSA. Previous dx: BPH with urinary obstruction, elevated PSA, kidney stones, renal cyst, renal atrophy, left. * no uro meds PSA: 03/28/23 - 2.64 04/01/24 - 5.63 04.28.25- 3.51 IPSS: 2 Denies any urological issues History of Present Illness Tests reviewed: reviewed UA, PSA I have reviewed the previous health record information and history for this patient from Dr. Guevara. I have reviewed and verified the staff [...] See HPI. Physical Exam Vitals & Measurements T: 36.3 ???C(Temporal Artery) HR: 73(Peripheral) RR: 16 BP: 147/68 HT: 187 cm HT: 74 in WT: 104.5 kg WT: 230.383 lb BMI: 29.88 General Appearance: alert, no distress, well nourished, well developed male. Assessment/Plan 1. Elevated PSA (R97.20: Elevated prostate specific antigen [PSA]) PSA 02/04/21 - 3.02 03/03/22 - 2.93 03/28/23 - 2.64 04/01/24 - 5.63 09/29/24 - 3.51 TRUS/bx 2008 - neg. MARIA INES: ~40g, no nodules PSA has decreased from prior. No indication for further workup. Discussed fluctuation is likely secondary to subclinical prostatitis. Will cont to monitor. -PSA in 6 mos 2. Asymptomatic microscopic hematuria (R31.21: Asymptomatic microscopic hematuria) UA today shows small blood (trace-intact on prior UAs since 2021). Denies gross hematuria. Advised pt microscopic hematuria will need confirmed with further evaluation which may require workup. -Urine sample to be sent for microscopic evaluation. Will call pt w results. If >3 RBCs, will initiate hematuria workup. -Cont sx monitoring and routine UAs. Pt knows to notify the office if he were to experience gross hematuria or clots. 3. BPH with urinary obstruction (N40.1: Benign prostatic hyperplasia with lower urinary tract symptoms) S/p TURP 08/2012. [1] IPSS 2. Not taking any BPH meds. UA today negative for infection. Not voicing any urinary habit complaints. -Cont sx monitoring 4. Kidney stones (N20.0: Calculus of kidney) SHUKRI 04/11/24 [facility] - Nonobstructing 5mm R renal stone and 8mm L renal stone. [2] -KUB in 6 mos 5. Renal cyst (N28.1: Cyst of kidney, acquired) SHUKRI 04/11/24 [facility] - Large fluid-filled collection within R renal hilum wo convincing dilation of all the calyces, may represent a large cyst protruding into the hilum/parapelvic cyst. [3] 6. 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 CMP 04/01/24 - BUN 48, Cr 3.15, GFR 19. Dr. Barton referred pt to nephrology. [4] Follow-up With When Contact Information JADE DOYLE, Jenaro Roberto, URL [facility] [address], [place] [address] [phone] Additional Instructions: 6 mos w/ PSA and KUB Patient Education Hematuria, Adult I, Rochelle Hightower, personally scribed for Dr. Guevara on 10/06/2024 09:15:29. . Documentation recorded by the scribe, Rochelle Hightower, accurately reflects the services(s) I performed and decisions made by me. Authenticated by Dr. Guevara on 10/06/2024 09:17:15. Problem List/Past Medical History Ongoing Arthritis Asymptomatic microscopic hematuria Basal cell carcinoma Bleeding disorder BPH with urinary obstruction Diabetes Elevated PSA Glucosuria Hyperlipidemia Hypertension Kidney stones Lymphoma Non-Hodgkin's lymphoma (clinical) Protein in urine Renal atrophy, left Renal cyst Historical No qualifying data Procedure/Surgical History Cystoscopy (06/15/2014), Urodynamics (06/26/2012), Cystoscopy (06/14/2012), Cholecystectomy (2011), Colonoscopy, EGD - Esophagogastroduodenoscopy, Laparoscopy, Partial resection of colon, Total knee arthroplasty, Transurethral biopsy prostate, TURP - Transurethral resection of prostate. Medications aspirin, 81 mg, Oral, Daily atorvastatin, 10 mg, Oral, Daily Basaglar KwikPen 100 units/mL subcutaneous solution, 8 unit(s), SubCutaneous, Daily calcitriol 0.25 mcg Cap, 0.25 mcg= 1 cap(s), Oral, Daily calcium (as carbonate) 600 mg oral tablet, 600 mg= 1 tab(s), Oral, Daily carvedilol, 6.25 mg, Oral, BID glimepiride, 4 mg, Oral, BID Januvia 25 mg Tab, 25 mg= 1 tab(s), Oral, Daily lisinopril, 2.5 mg, Oral, Daily magnesium oxide 400 mg Tab, 400 mg= 1 tab(s), Oral, Daily Allergies Toradol (Unknown) Zolinza (Unknown) ketorolac (Unknown, Unknown) piperacillin-tazobactam (Unknown, Eruption) tazobactam (Unknown) vorinostat (Unknown) Social History Alcohol - Denies Alcohol Use, 11/27/2019 Never., 04/09/2024 Substance Abuse Never., 04/09/2024 Tobacco - Denies Tobacco Use, 11/27/2019 Never (less than 100 in lifetime) Tobacco Use:. Never Smokeless Tobacco Use:., 10/06/2024 Family History Diabetes mellitus type 2: Mother. Heart disease: Mother and Father. Liver disease: Father. Immunizations Vaccine Date Status Comments influenza virus vaccine, inactivated 02/13/2024 Recorded influenza virus vaccine, inactivated 03/13/2023 Recorded influenza virus vaccine, inactivated 02/23/2022 Recorded SARS-CoV-2 (COVID-19) mRNAMUL.ORD![id number] 02/23/2022 Recorded SARSCoV2 mRNA(eixlwnkjw-uzea-emiznp) vac 09/13/2021 Recorded influenza virus vaccine, inactivated 02/25/2021 Recorded SARS-CoV-2 (COVID-19) mRNA BNT-162b2 vax 01/17/2021 Recorded 2024-04-14: TPV70 SARS-CoV-2 (COVID-19) mRNA BNT-162b2 vax 07/28/2020 Recorded 2024-04-14: TPV70 SARS-CoV-2 (COVID-19) mRNA BNT-162b2 vax 07/07/2020 Recorded 2024-04-14: TPV70 influenza virus vaccine, inactivated 02/05/2020 Recorded zoster vaccine, inactivated 08/17/2019 Recorded zoster vaccine, inactivated 06/01/2019 Recorded influenza virus vaccine, inactivated 03/26/2018 Recorded influenza virus vaccine, inactivated 04/12/2017 Recorded influenza virus vaccine, inactivated 03/15/2016 Recorded influenza virus vaccine, inactivated 04/06/2015 Recorded zoster vaccine live 04/10/2013 Recorded Lab Results Ambulatory Point of Care Results Bilirubin Urine Dipstick: Negative (10/06/24 08:54:00) Blood Urine Dipstick: 1+ Small (10/06/24 08:54:00) Glucose Urine Dipstick: 1+ 250 mg/dl (10/06/24 08:54:00) Ketones Urine Dipstick: Negative (10/06/24 08:54:00) Leukocytes Urine Dipstick: Negative (10/06/24 08:54:00) Nitrite Urine Dipstick: Negative (10/06/24 08:54:00) Protein Urine Dipstick: 2+ (100 mg/dl) (10/06/24 08:54:00) Specific [place] Urine Dipstick: 1.025 (10/06/24 08:54:00) Urine Appearance Urine Dipstick: Clear (10/06/24 08:54:00) Urine Color Urine Dipstick: Yellow (10/06/24 08:54:00) Urobilinogen Urine Dipstick: Normal 0.2-1 EU/dl (10/06/24 08:54:00) pH Urine Dipstick: 6 (10/06/24 08:54:00) [1] URO- Re-referral for elevated PSA; Jenaro GUEVARA MD 04/14/2024 12:41 EST [2] URO- Re-referral for elevated PSA; Jenaro GUEVARA MD 04/14/2024 12:41 EST [3] URO- Re-referral for elevated PSA; Jenaro GUEVARA MD 04/14/2024 12:41 EST [4] URO- Re-referral for elevated PSA; Jenaro GUEVARA MD 04/14/2024 12:41 EST Result Comment: Electronical ly Signed By: Jenaro GUEVARA MD\.br\Date and Time Signed: 10/06/24 09:17 EDT\.br\Electronically Co-Signed By: Rochelle Hightower.br\Date and Time Co-Signed: 10/06/24 09:16 EDT AMBULATORY VISIT SUMMARY Observed: 10/06 8:33 AM Status: F Source: [facility] Ambulatory Visit Summary MARS EUGENIO L :1945 Visit Date:10/06/2024 Ambulatory Visit Instructions Your Diagnosis Elevated PSA Asymptomatic microscopic hematuria BPH with urinary obstruction Kidney stones Renal cyst Renal atrophy, left Tests Performed XR Abdomen 1 View -- Results Pending -- Please visit your patient portal for your results or contact your primary care physician. Your Care Team Attending Physician - Jenaro GUEVARA MD Primary Care Physician - TAURUS BARTON DO This Is Your Medications List Contact prescribing physician if questions or concerns aspirin atorvastatin calcitriol (calcitriol 0.25 mcg Cap) calcium carbonate (calcium (as carbonate) 600 mg oral tablet) carvedilol glimepiride insulin glargine (Basaglar KwikPen 100 units/mL subcutaneous solution) lisinopril magnesium oxide (magnesium oxide 400 mg Tab) sitagliptin (Januvia 25 mg Tab) Procedures Performed Cystoscopy (06/15/2014), Urodynamics (06/26/2012), Cystoscopy (06/14/2012), Cholecystectomy (2011), Colonoscopy, EGD - Esophagogastroduodenoscopy, Laparoscopy, Partial resection of colon, Total knee arthroplasty, Transurethral biopsy prostate, TURP - Transurethral resection of prostate. Discharge Vitals Temperature (Temporal Artery) 36.3 ???C Heart Rate (Peripheral) 73 Respiratory Rate 16 Blood Pressure 147/68 Height 74 in Height 187 cm Weight 230.383 lb Weight 104.5 kg BMI 29.88 What to do next You Need to Schedule the Following Appointments Follow Up with JADE DOYLE, Jenaro Roberto, URL When: Where: [facility] [address] , [place] [address] [phone] Medications What How Much When Instructions Unchanged aspirin 81 Milligram By Mouth Every day Contact prescribing physician if questions or concerns Unchanged atorvastatin 10 Milligram By Mouth Every day Contact prescribing physician if questions or concerns Unchanged calcitriol (calcitriol 0.25 mcg Cap) 1 Capsules By Mouth Every day Contact prescribing physician if questions or concerns Unchanged calcium carbonate (calcium (as carbonate) 600 mg oral tablet) 1 Tablets By Mouth Every day Contact prescribing physician if questions or concerns Unchanged carvedilol 6.25 Milligram By Mouth 2 times a day Contact prescribing physician if questions or concerns Unchanged glimepiride 4 Milligram By Mouth 2 times a day Contact prescribing physician if questions or concerns Unchanged insulin glargine (Basaglar KwikPen 100 units/ mL subcutaneous solution) 8 Units Subcutaneous Every day Contact prescribing physician if questions or concerns Unchanged lisinopril 2.5 Milligram By Mouth Every day Contact prescribing physician if questions or concerns Unchanged magnesium oxide (magnesium oxide 400 mg Tab) 1 Tablets By Mouth Every day Contact prescribing physician if questions or concerns Unchanged sitagliptin (Januvia 25 mg Tab) 1 Tablets By Mouth Every day Contact prescribing physician if questions or concerns Allergies Toradol (Unknown) Zolinza (Unknown) ketorolac (Unknown, Unknown) piperacillin-tazobactam (Unknown, Eruption) tazobactam (Unknown) vorinostat (Unknown) Problems Ongoing - Any problem that you are currently receiving treatment for. Arthritis Asymptomatic microscopic hematuria Basal cell carcinoma Bleeding disorder BPH with urinary obstruction Diabetes Elevated PSA Glucosuria Hyperlipidemia Hypertension Kidney stones Lymphoma Non-Hodgkin's lymphoma (clinical) Protein in urine Renal atrophy, left Renal cyst Patient Survey You may receive a survey via text or e-mail asking about your office visit. Please share your experience with us by completing your survey. We appreciate your feedback and thank you for choosing us for your care. Education Materials Hematuria, Adult Hematuria is blood in the urine. Blood may be visible in the urine, or it may be identified with a test. This condition can be caused by infections of the bladder, urethra, kidney, or prostate. Other possible causes include: ??? Kidney stones. ??? Cancer of the urinary tract. ??? Too much calcium in the urine. ??? Conditions that are passed from parent to child (inherited conditions). ??? Exercise that requires a lot of energy. Infections can usually be treated with medicine, and a kidney stone usually will pass through your urine. If neither of these is the cause of your hematuria, more tests may be needed to identify the cause of your symptoms. It is very important to tell your health care provider about any blood in your urine, even if it is painless or the blood stops without treatment. Blood in the urine, when it happens and then stops and then happens again, can be a symptom of a very serious condition, including cancer. There is no pain in the initial stages of many urinary cancers. Follow these instructions at home: Medicines ??? Take jhuc-iax-bkvktjj and prescription medicines only as told by your health care provider. ??? If you were prescribed an antibiotic medicine, take it as told by your health care provider. Do not stop taking the antibiotic even if you start to feel better. Eating and drinking ??? Drink enough fluid to keep your urine pale yellow. It is recommended that you drink 3???4 quarts (2.8???3.8 L) a day. If you have been diagnosed with an infection, drinking cranberry juice in addition to large amounts of water is recommended. ??? Avoid caffeine, tea, and carbonated beverages. These tend to irritate the bladder. ??? Avoid alcohol because it may irritate the prostate (in males). General instructions ??? If you have been diagnosed with a kidney stone, follow your health care provider's instructions about straining your urine to catch the stone. ??? Empty your bladder often. Avoid holding urine for long periods of time. ??? If you are female: ? After a bowel movement, wipe from front to back and use each piece of toilet paper only once. ? Empty your bladder before and after sex. ??? Pay attention to any changes in your symptoms. Tell your health care provider about any changes or any new symptoms. ??? It is up to you to get the results of any tests. Ask your health care provider, or the department that is doing the test, when your results will be ready. ??? Keep all follow-up visits. This is important. Contact a health care provider if: ??? You develop back pain. ??? You have a fever or chills. ??? You have nausea or vomiting. ??? Your symptoms do not improve after 3 days. ??? Your symptoms get worse. Get help right away if: ??? You develop severe vomiting and are unable to take medicine without vomiting. ??? You develop severe pain in your back or abdomen even though you are taking medicine. ??? You pass a large amount of blood in your urine. ??? You pass blood clots in your urine. ??? You feel very weak or like you might faint. ??? You faint. Summary ??? Hematuria is blood in the urine. It has many possible causes. ??? It is very important that you tell your health care provider about any blood in your urine, even if it is painless or the blood stops without treatment. ??? Take huvf-ojf-pnllzsc and prescription medicines only as told by your health care provider. ??? Drink enough fluid to keep your urine pale yellow. This information is not intended to replace advice given to you by your health care provider. Make sure you discuss any questions you have with your health care provider. Document Revised: 01/19/2021 Document Reviewed: 01/19/2021 [employer] Patient Education ??? 2023 [employer]. UROLOGY OFFICE/CLINIC NOTE Observed: 04/2024 12:41 PM Status: F Source: [facility] Urology Office/Clinic Note Chief Complaint referral HPI Staff 78 yo male re-referred by Dr. Barton for elevated PSA. Last seen 04/03/22 and [...] and history for this patient from Dr. Guevara and external providers. I have reviewed and [...] hard nodule observed. Assessment/Plan Re-referred by Dr. Barton for elevated PSA. Last seen in 2021. 1. Elevated PSA (R97.20: Elevated prostate specific antigen [PSA]) PSA 02/04/21 - 3.02 03/03/22 - 2.93 03/28/23 - 2.64 04/01/24 - 5.63 TRUS/bx 2008 - neg. MARIA INES: ~40g, no nodules [...] BUN 48, Cr 3.15, GFR 19. Dr. Barton referred pt to nephrology. Follow-up With When Contact Information JADE DOYLE, Jenaro Roberto, URL [facility] [address] , [place] [address]- [phone] Additional Instructions: 6 mos w/ PSA Patient Education Prostate Cancer Screening I, Rochelle Hightower, personally scribed for Dr. Guevara on 04/14/2024 12:42:10. . Documentation recorded by the scribe, Rochelle Hightower, accurately reflects the services(s) I performed and decisions made by me. Authenticated by Dr. Guevara on 04/14/2024 12:43:37. Problem List/Past Medical History [...] Self Directed lisinopril, Oral, Daily Tradjenta, Oral, Daily Tradjenta 5 mg oral tablet Allergies Toradol (Unknown) Zolinza (Unknown) Social History Alcohol - Denies Alcohol Use, 11/27/2019 Never., 04/09/2024 Substance Abuse Never., 04/09/2024 Tobacco - Denies Tobacco Use, 11/27/2019 Never (less than 100 in lifetime) Tobacco Use:. Never Smokeless Tobacco Use:., 04/14/2024 Family History Diabetes mellitus type 2: Mother. Heart disease: Mother and Father. Liver disease: Father. Immunizations Vaccine Date Status Comments influenza virus vaccine, inactivated 02/13/2024 Recorded influenza virus vaccine, inactivated 03/13/2023 Recorded influenza virus vaccine, inactivated 02/23/2022 Recorded SARS-CoV-2 (COVID-19) mRNAMUL.ORD![id number] 02/23/2022 Recorded SARSCoV2 mRNA(wwesqgdno-birr-wojcig) vac 09/13/2021 Recorded influenza virus vaccine, inactivated 02/25/2021 Recorded SARS-CoV-2 (COVID-19) mRNA BNT-162b2 vax 01/17/2021 Recorded 2024-04-14: TPV70 SARS-CoV-2 (COVID-19) mRNA BNT-162b2 vax 07/28/2020 Recorded 2024-04-14: TPV70 SARS-CoV-2 (COVID-19) mRNA BNT-162b2 vax 07/07/2020 Recorded 2024-04-14: TPV70 influenza virus vaccine, inactivated 02/05/2020 Recorded zoster vaccine, inactivated 08/17/2019 Recorded zoster vaccine, inactivated 06/01/2019 Recorded influenza virus vaccine, inactivated 03/26/2018 Recorded influenza virus vaccine, inactivated 04/12/2017 Recorded influenza virus vaccine, inactivated 03/15/2016 Recorded influenza virus vaccine, inactivated 04/06/2015 Recorded zoster vaccine live 04/10/2013 Recorded Lab Results Ambulatory Point of Care Results Bilirubin Urine Dipstick: Negative (04/14/24 11:53:00) Blood Urine Dipstick: Trace-intact (04/14/24 11:53:00) Glucose Urine Dipstick: 2+ 500 mg/dl (04/14/24 11:53:00) Ketones Urine Dipstick: Negative (04/14/24 11:53:00) Leukocytes Urine Dipstick: Negative (04/14/24 11:53:00) Nitrite Urine Dipstick: Negative (04/14/24 11:53:00) Protein Urine Dipstick: 2+ (100 mg/dl) (04/14/24 11:53:00) Specific [place] Urine Dipstick: 1.025 (04/14/24 11:53:00) Urine Appearance Urine Dipstick: Clear (04/14/24 11:53:00) Urine Color Urine Dipstick: Yellow (04/14/24 11:53:00) Urobilinogen Urine Dipstick: Normal 0.2-1 EU/dl (04/14/24 11:53:00) pH Urine Dipstick: 5.5 (04/14/24 11:53:00) Result Comment: Electronical ly Signed By: Jenaro GUEVARA MD.br\Date and Time Signed: 04/14/24 12:43 EST\.br\Electronically Co-Signed By: Rochelle Hightower.br\Date and Time Co-Signed: 04/14/24 12:42 EST PATIENT EDUCATION Observed: 04/14/2024 12:36 PM Status: F Source: [facility] Patient Education Oncology Prostate Cancer Screening Prostate [...] Where to find more information ??? The [place] [employer]: www.cancer.org ??? [place] [employer]: www.auanet.org Contact a health care [...] gland adds fluid to semen during ejaculation. ??? Prostate cancer screening may identify cancer at an early stage, when the cancer can be treated more easily and is less likely to have spread to other areas of the body. ??? The prostate-specific antigen (PSA) test is the recommended screening test for prostate cancer, but it has associated risks. ??? Discuss the risks and benefits of prostate [...] provider. Document Revised: 11/14/2021 Document Reviewed: 11/14/2021 [employer] Patient Education ? 2023 [employer] ALLERGIES DATE TYPE / CODE NAME / CODE REACTION SEVERITY SOURCE 08/21/2023 PITER( SNOMED CT) vorinostat [id number] [facility] 11/04/2022 PITER( SNOMED CT) tazobactam Unknown [facility] 09/22/2020 PITER( SNOMED CT) ketorolac unknown~[id number] [facility] 09/13/2009 PITER( SNOMED CT) piperacillin-tazoba ctam [id number]~Unknown [facility] PITER( SNOMED CT) No Known Allergies [facility] PITER( SNOMED CT) Toradol [id number] [facility] PITER( SNOMED CT) Zolinza [id number] [facility] ENCOUNTERS ADMIT/DISCHARGE ACCOUNT NUMBER ADMITTING ENCOUNTER CLASS LOCATION SOURCE 10/16/2024/10/17/19 25 [id number] DIANNA TORRES [facility] [facility] 10/16/2024/05/15 [id number] Ambulatory [place]:EU [place] [facility] 10/06/2024 [id number] Jenaro GUEVARA Ambulatory [facility]:FT LAB [facility] 10/06/2024/10/07/19 [id number] Jenaro GUEVARA Ambulatory [facility]:FT LAB [facility] 10/06/2024/10/07/19 [id number] Ambulatory [place]: Exam 1 [facility] 04/14/2024/04/14/20 24 [id number] Ambulatory EU [place]: Exam 4 [facility] 03/21/2024/03/21/20 24 [id number] Ambulatory Building:NO MS SWSDERM [facility] EPIC 10/31/2023/10/31/19 24 [id number] Ambulatory Building:NO MS SH ENT [facility] EPIC PAYERS ENCOUNTER GUARANTOR PAYER SUBSCRIBER SOURCE 10/16/2024 EUGENIO TAVAREZ: ALEM HALLTel: ~~(41 (HP) Primary Insurance:MEDICARE Policy Number: [id number] Date:5640-66-39TC [address] [place] [address]RL: EUGENIO ALLEN [facility] 10/16/2024 Secondary Insurance:AARPPoli cy Number: [id number] ve Date:4859-18-64YX [address]Z, [place] [address]KX: EUGENIOKEVIN ALLEN [facility] 10/16/2024 EUGENIO TAVAREZ: ALEM Westfall: ~~(41 (HP) Primary Insurance:MEDICARE Policy Number: [id number] Date:5550-75-59OT [address]ZDBVC, [place] [address]XY: EUGENIO ALLEN [facility] 10/16/2024 Secondary Insurance:Lola cy Number: [id number] ve Date:0071-81-23QX [address], [place] [address]PF: EUGENIO ALLEN [facility] 10/06/2024 EUGENIO CREWSB: ALEM HALLTel: ~~(41 (HP) Primary Insurance:MEDICARE Policy Number: [id number] Date:3431-25-13BS[address] [address]TE: EUGENIO ALLEN [facility] 10/06/2024 Secondary Insurance:Lola cy Number: [id number] ve Date:7784-51-96WQ [address], [place] [address]YZ: EUGENIO ALLEN [facility] 10/06/2024 EUGENIO CREWSB: ALEM Westfall: ~~(41 (HP) Primary Insurance:MEDICARE Policy Number: [id number] Date:1641-09-11EQ[address] [address]JB: EUGENIO ALLEN [facility] 10/06/2024 Secondary Insurance:Lola cy Number: [id number] ve Date:8201-04-34QB [address]YLBYQP, [place] [address]YT: EUGENIO ALLEN [facility] 04/14/2024 EUGENIO CREWSB: ALEM Westfall: ~~(41 (HP) Primary Insurance:MEDICARE Policy Number: [id number] Date:4395-61-22UG [address] [place] [address]OV: EUGENIO ALLEN [facility] 04/14/2024 Secondary Insurance:Lola cy Number: [id number] ve Date:8554-75-77DN [address]BV[place], [place] [address]XN: EUGENIO ALLEN [facility] 03/21/2024 EUGENIO L[place]B: [place] [address]Vuv: (HP) Primary Insurance:MEDICARE Policy Number: [id number] Date:9882-44-57Kpi n Name:Medicare EUGENIO LAYTONB: [id number] ALEM [place], [address] [facility] 03/21/2024 Secondary Insurance:MICHAELASADwarren cy Number: [id number] ve Date:2022-06-04 EUGENIO LAYTONB: [id number] ALEM [place], [address] [facility] 10/31/2023 EUGENIO [place]AYTONB: [place] [address]Awb: (HP) Primary Insurance:MEDICARE Policy Number: [id number] ve Date:2412-83-80Bjp n Name:Medicare EUGENIO LAYTONB: [id number] ALEM [place], [place] [phone] [facility] 10/31/2023 Secondary Insurance:AARPPoli cy Number: [id number] ve Date:2022-06-04 EUGENIO LAYTONB: [id number] [place], [address] [facility] EPIC
--- OUTSIDE RECORDS SUMMARY | 2024-10-24 07:16 | XMS_ITS | Encounter Summary ---
Author Organization [employer] Address [id number] [address] [place] [address] Care Team Providers Care Sound Engineering Technician Name Role Phone Gerry Barton DO Primary Care Provider [phone] Encounter Details Date Type Department Care Team (Late st Contact Info) Description 02/07/2022 Orders Only [facility] [address] [place] [phone] Transcribe, Orders Support User Pain (Primary Dx) Social History Tobacco Use Types Packs/Day Years Used Date Smoking Tobacco: Never Smokeless Tobacco: Never Alcohol Use Standard Drinks/Week Comments No 0 (1 standard drink = 0.6 oz pur e alcohol) Childcare Answer Date Recorded Childcare Unknown 11/13/2018 Employment Answer Date Recorded Employment Unknown 11/13/2018 Purpose - Life Answer Date Recorded Purpose and direction in life Unknown Sex and Gender Information Value Date Recorded Sex Assigned at Not on file Legal Sex Male 11:21 AM EDT Gender Identity Not on file Sexual Orientation Not on file documented as of this encounter Plan of Treatment Not on file documented as of this encounter Results * X-ray chest 2 views (02/07/2022 11:25 AM EDT) us Scanning Provider External IMG DIAGNOSTIC IMAGIN G ORDERABLES Final Result MANUALLY TRANSCRIBED RESULTS documented in this encounter Visit Diagnoses Diagnosis Pain- Primary Generalized pain documented in this encounter Care Teams Sound Engineering Technician Relationship Specialty Start Date End Date Gerry Barton DO [address] [place] [address] PCP - General Internal Medicine 03/20/22 documented as of this encounter
--- OUTSIDE RECORDS SUMMARY | 2024-10-24 07:16 | XMS_ITS | Clinical Summary ---
Author Organization [facility] Address [address] [place] [address] Care Team Providers Care Rn Physician Office Name Role Phone Gerry Barton DO Primary Care Provider [phone] Allergies Active Allergy Reactions Criticality Noted Date Comments Piperacillin Sod-Tazobactam So Other (See Comments) 04/10/2013 Skin turned purple and pealed off Medications fenofibrate 160 MG tablet Take 160 mg by mouth daily. Active glimepiride (AMARYL) 4 MG tablet Take 8 mg by mouth every morning (before breakfast). Active linagliptin (TRADJENTA) 5 MG tablet Take 5 mg by mouth daily. Active benazepril (LOTENSIN) 10 MG tablet Take 10 mg by mouth daily. Active aspirin 81 MG tablet Take 81 mg by mouth three times a week. Active ascorbic acid 500 MG/ML injection Inject 500 mg as directed every 30 days. Active Active Problems Problem Noted Date Diagnosed Date Claw toe, acquired 08/14/2013 Overview (08/14/2013): Left great toe Ulcer of other part of foot 04/10/2013 Overview (04/10/2013): Left great toe Family History Medical History Relation Name Comments Emphysema Father Relation Name Status Comments Father Mother Social History Tobacco Use Types Packs/Day Years Used Date Smoking Tobacco: Never Alcohol Use Standard Drinks/Week Comments No 0 (1 standard drink = 0.6 oz pur e alcohol) Sex and Gender Information Value Date Recorded Sex Assigned at Not on file Legal Sex Male 10:07 AM EST Gender Identity Not on file Sexual Orientation Not on file Last Filed Vital Signs Vital Sign Reading Time Taken Comments Blood Pressure 126/76 09/25/2013 8:57 AM EDT Pulse 84 09/25/2013 8:57 AM EDT Temperature 35.7 C (96.3 F) 09/25/2013 8:57 AM EDT Respiratory Rate 20 09/25/2013 8:57 AM EDT Oxygen Saturation 99% 08/15/2013 8:45 AM EDT Inhaled Oxygen Concentration - - Weight 112.5 kg (248 lb) 09/25/2013 8:57 AM EDT Height 188 cm (6' 2 ) 09/25/2013 8:57 AM EDT Body Mass Index 31.84 09/25/2013 8:57 AM EDT Plan of Treatment Not on file Care Teams Rn Physician Office Relationship Specialty Start Date End Date Gerry Barton DO [address] [place] [address] PCP - General 04/08/13
--- OUTSIDE RECORDS SUMMARY | 2024-10-24 07:16 | XMS_ITS | Clinical Summary ---
Author Organization [facility] tem Address [id number] [address] 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 Active carvedilol (COREG) 6.25 mg tablet Take 1 tablet (6.25 mg total) by mouth in the morning and 1 tablet (6.25 mg total) in the evening. Take with meals. Active glimepiride (AMARYL) 4 mg tablet Take 1 tablet (4 mg total) by mouth every morning before breakfast. Active linaGLIPtin (TRADJENTA) 5 mg tablet Take 1 tablet (5 mg total) by mouth in the morning. Active atorvastatin (LIPITOR) 10 mg tablet Take 1 tablet (10 mg total) by mouth in the morning. 01/30/2023 Active CONTOUR NEXT TEST STRIPS strip 1 strip by other route 3 (three) times a day. 02/02/2023 Active Active Problems No known active problems Family History Medical History Relation Name Comments COPD Father Heart failure Father Diabetes Mother Heart disease Mother Relation Name Status Comments Brother Daughter Alive Father Mother Sister 1 Alive Sister 2 Alive Sister 3 Son Alive Social History Tobacco Use Types Packs/Day Years Used Date Smoking Tobacco: Never Smokeless Tobacco: Never Tobacco Cessation:Counseling Given: Not Answered Alcohol Use Standard Drinks/Week Comments No 0 (1 standard drink = 0.6 oz pur e alcohol) Childcare Answer Date Recorded Childcare Unknown 11/13/2018 Employment Answer Date Recorded Employment Unknown 11/13/2018 Hunger Screening Answer Date Recorded Within the past 12 months we worried whether our food would run out before we got money to buy more. Never True 02/28/2023 Food Insecurity - Inability Not on file 02/03 Purpose - Life Answer Date Recorded Purpose and direction in life Unknown Sex and Gender Information Value Date Recorded Sex Assigned at Not on file Legal Sex Male 11:21 AM EDT Gender Identity Not on file Sexual Orientation Not on file Last Filed Vital Signs Vital Sign Reading Time Taken Comments Blood Pressure 152/81 02/28/2023 8:51 AM EDT Pulse 79 02/28/2023 8:51 AM EDT Temperature 36.2 C (97.1 F) 04/21/2022 9:24 AM EST Respiratory Rate 12 04/11/2022 1:00 PM EST Oxygen Saturation 99% 04/11/2022 1:00 PM EST Inhaled Oxygen Concentration - - Weight 105.1 kg (231 lb 9.6 oz) 02/28/2023 8:51 AM EDT Height 188 cm (6' 2 ) 02/28/2023 8:51 AM EDT Body Mass Index 29.74 02/28/2023 8:51 AM EDT Plan of Treatment Health Maintenance Due Date Last Done Comments Depression Screening 1957 DTaP,Tdap and Td Vaccines (1 - Tdap) 1966 Fall Risk Screening 2012 COVID-19 Vaccine (2023-2 5 season) 2024 02/23/2022, 09/13/2021, 01/17/2021, Additional history exists Tobacco Screening 02/29/2024 02/28/2023 Influenza Vaccine 02/02/2025 02/23/2022, , 02/05/2020, Additional history exists Zoster (Shingles) Vaccine Completed 2019, 06/01/2019, 04/10/2013 Medical Devices Implanted Type Area Parachute Supervisor Device Identifier Shelf Expiration Date Model / Serial / Lot Port Powerport Mri Argd 8fr [address] [facility] [address] Intmd Kt Cecille Jostin - Sna - [id number] Implanted:Qty: 1 on 04/11/2022 by Radames Chacon DO at [facility] Port N/A: Chest [employer] Peripheral Vascular 02/01/2023 [id number] / NA / [id number] Insurance MEDICARE [facility] Care Teams Traffic Control Technician Relationship Specialty Start Date End Date Gerry Barton DO [address] [place] [address] PCP - General Internal Medicine 03/20/22
--- OUTSIDE RECORDS SUMMARY | 2024-10-24 07:16 | XMS_ITS ---
Author Organization [facility] Address [address] [place] [address] Care Team Providers Care Merchant Miller Name Role Phone Gerry Barton Primary Care Provider [phone] Active Problems Problem Noted Date Diagnosed Date Central line clotted 02/21/2022 Diabetes mellitus 05/02/2019 Overview (05/02/2019): A/p: -Q6 Accuchecks -ISS BPH (benign prostatic hyperplasia) 09/21/2009 Neutropenic 09/07/2009 Drug-induced pancytopenia 09/07/2009 Overview (09/07/2009): chemotherapy Fever 09/07/2009 NHL (non-Hodgkin's lymphoma) 08/27/2009 Overview (09/22/2009): Day: Protocol(s): Preparative regimen: Bu/Cy/FRONT OFFICE SUPERVISOR Mobilization regimen: FRONT OFFICE SUPERVISOR/G Stem cell source: PSC CD34 cell dose (x10e6/kg): 3.64 Date of transplant: 09/29/09 Current Treatment and Therapy Plans No current plan information found. Past Treatment and Therapy Plans NON-CHEMO 1 Plan Name Start Date Discontinue Date Treatment Medications Discontinue Reason Plan Provider Cycles AMB HYDRATION - ONCE 02/21/2022 12/09/2022 No medications scheduled. Other Yoly David PA-C 2 of 2 cycles started HYDRATION - ONCE 10/28/2020 01/06/2022 No medications scheduled. Other Boni, Yamilka, CLERK OF WORKS.TECHNICAL TRAINING SPECIALIST 4 of 4 cycles started CENTRAL LINE FLUSH - Weekly x 24 weeks 2 01/06/2022 No medications scheduled. Treatment Complete Yamilka Plata, MAGALIE.TECHNICAL TRAINING SPECIALIST 1 of 1 cycle started Resolved Problems Problem Noted Date Diagnosed Date Resolved Date SBO (small bowel obstruction) 05/02/2019 05/05/2019 Overview (05/02/2019): Hx: A/p: -NPO -NGT -mIVF HSQ for DVT prophylaxis Assessment & Plan (05/04/2019 9:31 AM EST): Assessment: 73 year old male with a [...] RNF, dc planning if he tolerates GIS Assessment & Plan (05/03/2019 8:37 AM EST): Assessment: 73 year old male with a PMHx of lymphoma c/b multiple SBOs PLAN: - CT confirmed pSBO Neuro: Pain control with multimodal regimen CV: Home meds resumed, lipitor, carvedilol, asa 81 Pulm: O2 if needed Heme: No clinical evidence of bleeding FEN/GI: CLD, NGT is out, PO PPI Endo: SSI 1 : UOP monitored, trend creatinine ID/Abx: None PPx: SCDs, SQH D/c planning: RNF Assessment & Plan (05/02/2019 5:40 PM EST): Assessment: 73 year old male with a PMHx of lymphoma c/b multiple SBOs PLAN: - KUB to confirm NGT position - CT abd/pel with oral contrast - IVF Neuro: Pain control with IV meds while NGT is in CV: Home meds held, PRN hydralazine available Pulm: O2 if needed Heme: No clinical evidence of bleeding FEN/GI: NPO, NGT in place, IV PPI Endo: SSI 1 : UOP monitored, trend creatinine ID/Abx: None PPx: SCDs, SQH D/c planning: RNF Small bowel obstruction 05/02/201907/2018
--- OUTSIDE RECORDS SUMMARY | 2024-10-24 07:16 | XMS_ITS | Clinical Summary ---
Author Organization [facility] Address [address] [place] [address] Care Team Providers Care Continuous Process Rotary Drum Tanner Name Role Phone Gerry Barton DO Primary Care Provider [phone] Allergies Active Allergy Reactions Criticality Noted Date Comments Ketorolac Unknown 09/23/2020 kidney killer Piperacillin-Tazobactam Rash High 09/14/2009 Pt developed severe rash after zosyn initiated Medications GLIMEPIRIDE 4 mg tablet Take 4 mg by mouth twice daily with meals. 06/19/2012 Active TRADJENTA 5 mg tab 5 mg once daily. 06/15/2013 Active carvedilol (COREG) 6.25 mg tablet Take 6.25 mg by mouth twice daily with meals. 06/15/2014 Active lisinopril 2.5 mg tablet Take 2.5 mg by mouth once daily. Active aspirin, enteric coated (ASPIRIN, ENTERIC COATED) 81 mg EC tablet Take 81 mg by mouth once daily. Takes every other day Active LEVEMIR FLEXTOUCH 100 unit/mL (3 mL) inpn injection 12 Units. 09/07/2015 Active atorvastatin (LIPITOR) 10 mg tablet Take 10 mg by mouth once daily. Active Active Problems Problem Noted Date Diagnosed Date Central line clotted 02/21/2022 Diabetes mellitus 05/02/2019 Overview (05/02/2019): A/p: -Q6 Accuchecks -ISS BPH (benign prostatic hyperplasia) 09/21/2009 Neutropenic 09/07/2009 Drug-induced pancytopenia 09/07/2009 Overview (09/07/2009): chemotherapy Fever 09/07/2009 NHL (non-Hodgkin's lymphoma) 08/27/2009 Overview (09/22/2009): Day: Protocol(s): Preparative regimen: Bu/Cy/SCHOOL LUNCH MANAGER Mobilization regimen: SCHOOL LUNCH MANAGER/G Stem cell source: PSC CD34 cell dose (x10e6/kg): 3.64 Date of transplant: 09/29/09 Resolved Problems Problem Noted Date Diagnosed Date [...] D/c planning: RNF Small bowel obstruction 05/02/201907/2018 Immunizations Immunization Administration Dates Next Due influenza (HD-IIV3) vaccine, age 65+ yr, high dose, trivalent, PF (FLUZONE HIGH-DOSE) 04/12/2017,03/15/2016,04/06/2015 influenza (HD-IIV4) vaccine, age 65+ yr, high dose, quadrivalent, PF (FLUZONE HIGH-DOSE) 02/05/2020 influenza (aIIV3) vaccine, a ge 65+ yr, trivalent, PF (FLUAD) 02/25/2021,03/26/2018 zoster (RZV) vaccine, recomb inant (SHINGRIX) 08/17/2019,06/01/2019 zoster (ZVL) vaccine, live (ZOSTAVAX) 04/10/2013 Social History Tobacco Use Types Packs/Day Years Used Date Smoking Tobacco: Never Smokeless Tobacco: Never Alcohol Use Standard Drinks/Week Comments No 0 (1 standard drink = 0.6 oz pur e alcohol) PHQ-2 Answer Date Recorded PHQ-2 score 0 11/25/2020 Area Deprivation Index Answer Date Jimmie rded National Score (1-100), lower number is lower ri sk 74 2022 State Score (1-10), lower number is lower risk N ot on file 2022 Data from: https://www.neighborhoodatlas.medicine.[facility].edu/. Last address used for calculation [address] [address]22 Sex and Gender Information Value Date Recorded Sex Assigned at Not on file Legal Sex Male 8:27 AM EST Gender Identity Not on file Sexual Orientation Not on file Last Filed Vital Signs Vital Sign Reading Time Taken Comments Blood Pressure 141/54 03/23/2021 1:05 PM EDT Pulse 81 03/23/2021 1:05 PM EDT Temperature 36.3 C (97.4 F) 03/23/2021 1:05 PM EDT Respiratory Rate 16 03/23/2021 1:05 PM EDT Oxygen Saturation 99% 03/23/2021 1:05 PM EDT Inhaled Oxygen Concentration - - Weight 105.9 kg (233 lb 6.4 oz) 03/23/2021 1:05 PM EDT Height 185.4 cm (6' 0.99 ) 03/23/2021 1:05 PM ED T Body Mass Index 30.8 03/23/2021 1:05 PM EDT Plan of Treatment Health Maintenance Due Date Last Done Comments Anxiety Screening 1963 Depression Screening 1965 Hepatitis C Screening 1963 DTaP,Tdap,Td Vaccine (1 - Tdap) 1966 Pneumococcal Vaccine: 50+ (1 of 1 - PCV) 1997 RSV Vaccine (1 - 1-dose 75+ series) 2022 Covid-19 Vaccine ( - 2023-2 5 season) 2024 02/23/2022, 09/13/2021, 01/17/2021, Additional history exists Diabetes Screening 03/23/2024 03/23/2021, 1 07/03/2018, 05/02/2019, Additional history exists Advance Directive Discussion 06/04/2024 Influenza Vaccine (Season Ended) 2025 02/23/2022, 02/25/2021, 02/05/2020, Additional history exists Shingrix Vaccine Completed 08/17/2019, , 04/10/2013 Colonoscopy Discontinued 09/23/2020 Colorectal Cancer Screening Discontinued Fecal Occult Blood Discontinued 03/23/2021 CT Colonography Discontinued Cologuard (FIT-DNA) Discontinued Sigmoidoscopy Discontinued Procedures Procedure Name Priority Date/Time Associated Diagnosis Comments IMMUNOCHEMICAL FECAL OCCULT BLOOD TEST Routine 03/23/2021 1:57 PM EDT Non-Hodgkin's lymphoma, unspecified body region, unspecified non-Hodgkin lymphoma type (HCC) Anemia, unspecified type COMPREHENSIVE METABOLIC PANEL Routine 03/23/2021 1:05 PM EDT Follicular lymphoma, unspecified follicular lymphoma type, unspecified body region (HCC) from Last 3 Months or Most Recently Relevant to Health Maintenance Results * FECAL OCCULT BLOOD TEST (03/23/2021 1:57 PM EDT) Pathologist [facility] Occult Blood, Stool Negative Negative 04/04/2021 2:57 PM EDT [facility] Comment: This test was developed and its performance characteristics determined by [facility]'s Dany Cesar [facility] Pathology and Laboratory Medicine [place] ([facility]). It has not been cleared or approved by the FDA. [facility] is regulated under CLIA as qualified to perform high complexity testing. This test is used for clinical purposes. It should not be regarded as investigational or for research. Stool Random STOOL SPECIMEN / Unknown 03/23/2021 1:57 PM EDT 04/04/2021 2:57 PM EDT Yamilka Plata WEB PRESS OPERATOR ASSISTANT.[facility] Final Re sult [facility] [address] [address] [facility] [address] [place] [address] * (ABNORMAL) COMP METABOLIC PANEL (03/23/2021 1:05 PM EDT) [facility] Protein, Total 6.2(L) 6.3 - 8.0 g/dL 03/23/2021 1:42 PM EDT [facility] Albumin 3.9 3.9 - 4.9 g/dL 03/23/2021 1:42 PM EDT [facility] Calcium 8.9 8.5 - 10.2 mg/dL 03/23/2021 1:42 PM EDT [facility] Bilirubin, Total 0.3 0.2 - 1.3 mg/dL 03/23/2021 1:42 PM EDT [facility] Alkaline Phosphatase 126(H) 38 - 113 U/L 03/23/2021 1:42 PM EDT [facility] AST 12(L) 14 - 40 U/L 03/23/2021 1:42 PM EDT [facility] Glucose 169(H) 74 - 99 mg/dL 03/23/2021 1:42 PM EDT [facility] Comment: The [place] Diabetes Association (ADA) provides guidance for cutoff [...] Standards of Medical Care in Diabetes 2016, [place] Diabetes Association. Diabetes Care. 2016.39(Suppl 1). BUN 29(H) 9 - 24 mg/dL 03/23/2021 1:42 PM EDT [facility] Creatinine 2.54(H) 0.73 - 1.22 mg/dL 03/23/2021 1:42 PM EDT [facility] Sodium 134(L) 136 - 144 mmol/L 03/23/2021 1:42 PM EDT [facility] Potassium 4.7 3.7 - 5.1 mmol/L 03/23/2021 1:42 PM EDT [facility] Chloride 107(H) 97 - 105 mmol/L 03/23/2021 1:42 PM EDT [facility] CO2 20(L) 22 - 30 mmol/L 03/23/2021 1:42 PM EDT [facility] Anion Gap 7(L) 9 - 18 mmol/L 03/23/2021 1:42 PM EDT [facility] ALT 13 10 - 54 U/L 03/23/2021 1:42 PM EDT [facility] eGFR- 30 03/23/2021 1:42 PM EDT [facility] eGFR-All Other Races 25 . 03/23/2021 1:42 PM EDT [facility] Comment: eGFR (Estimated GFR) Units of measure: [...] eGFR may not accurately reflect actual GFR. Blood BLOOD SPECIMEN / Unknown 03/23/2021 1:05 PM EDT 03/23/2021 1:06 PM EDT us Paulo Kidd MD LABORATORY Final Result [facility] [address] [address] [facility] [address] from Last 3 Months or Most Recently Relevant to Health Maintenance Insurance [facility] MEDICARE MEDICARE [employer]RO[employer] Advance Directives Documents on File Type Date Recorded Patient Buccaro Expl anation Advance Directive(s) 09/10/2009 10:04 PM Care Teams Continuous Process Rotary Drum Tanner Relationship Specialty Start Date End Date Gerry Barton DO [address] [place] [address] PCP - General 09/07/09
--- OUTSIDE RECORDS SUMMARY | 2024-10-24 07:16 | XMS_ITS | Encounter Summary ---
[facility] Organization [facility] [place] [id number] [address] [place] [address] Care Team Providers Care Credit Rating Checker Name Role Phone Mick Gerry Mackenzie TEJADA Primary Care Provider [phone] Encounter Details Date Type Department Care Team (Late st Contact Info) Description 09/22/2020 Orders Only [facility] [address] [place] [id number] Ref Prov, [place] [address] Social History Tobacco Use Types Packs/Day Years [...] on file Sexual Orientation Not on file COVID-19 Exposure Response Date Recorded In the last month, have you been in contact with someone who was confirmed or suspected to have Coronavirus / COVID-19? No / Unsure 09/23/2020 6:37 AM EDT documented as of this encounter Plan of Treatment Not on file documented as of this encounter Procedures Procedure Name Priority Date/Time Associated Diagnosis Comments COLONOSCOPY Routine 07/20/2010 documented in this encounter Results * Colonoscopy (07/20/2010) us Not In System Ref Prov GI PROCEDURE ORDERABLES F inal Result [facility] EXTERNAL NON-INTERFACED REF LAB [address] [place] [address] documented in this encounter Visit Diagnoses Not on filedocumented in this encounter Care Teams Credit Rating Checker Relationship Specialty Start Date End Date Gerry Barton DO [address] [place] [address] PCP - General Internal Medicine 03/20/22 documented as of this encounter
--- OUTSIDE RECORDS SUMMARY | 2024-10-24 07:16 | XMS_ITS | Encounter Summary ---
Author Organization [facility] Address [address] [place] [address] Care Team Providers Care Registration Manager Name Role Phone Mick Gerry Mann DO Primary Care Provider [phone] Destiny Gant MD Unavailable [phone] Gerry Nelson DO Unavailable Encounter Details Date Type Department Care Team (Late st Contact Info) Description 08/22/2023 External Result Encounter [facility] External Department Unsolicited Gerry Nelson, DO [address] [place] [address] Social History Tobacco Use Types Packs/Day Years Used Date Smoking Tobacco: Never Smokeless Tobacco: Never Alcohol Use Standard Drinks/Week Comments Yes 0 (1 standard drink = 0.6 oz pur e alcohol) Monthly or less Sex and Gender Information Value Date Recorded Sex Assigned at Not on file Legal Sex Male 7:34 PM EDT Gender Identity Not on file Sexual Orientation Not on file documented as of this encounter Plan of Treatment Upcoming Encounters Date Type Department Care Team (Late st Contact Info) Description 04/02/2025 8:30 AM EDT Office Visit [facility] [address] [facility] [address] [place] [phone] Melody Manzano APRN-HIGINIO [address] [place] [address] documented as of this encounter Procedures Procedure Name Priority Date/Time Associated Diagnosis Comments ECG 12-LEAD 08/22/2023 3:05 PM EDT documented in this encounter Results * ECG 12 lead (08/22/2023 3:05 PM EDT) 08/22/2023 3:[address] [facility] - 08/23/2023 11:22 AM EDT [facility] [address] [place] [id number] Electrocardiograph Report Signed Patient: Emanuel Regalado MR#: [id number] : 1945 Acct:[id number] Age/Sex: 78 / M ADM Date: 08/22/23 Loc: PS Room: Type: DEP CLI Attending Dr: Gerry Nelson DO Ordering [...] previous ECGs available Confirmed by Joni Marrero ([id number]) on 08/23/2023 11:21:57 AM Referred By: NOHEMI Electronically Signed By:Joni Marrero Transcribed By: MUS Signed By Joni Marrero MD 08/23/23 1122 Procedure Note Emely Marrero MD - 08/23/[address] [address] Electrocardiograph Report Signed Patient: Emanuel Regalado LMR#: [id number] : 8Acct:[id number] Age/Sex: 78 / MADM Date: 08/22/23 Loc: PS Room:Type: DEP CLI Attending Dr: Gerry Nelson DO Ordering [...] previous ECGs available Confirmed by Joni Marrero ([id number]) on 08/23/2023 11:21:57 AM Referred By: NOHEMI Electronically Signed By:Joni Marrero Transcribed By: MUS Signed By Joni Marrero MD 08/23/23 1122 us Gerry Nelson DO ECG ORDERABLES Final Resul t [facility] [address] [place] [address], documented in this encounter Visit Diagnoses Not on filedocumented in this encounter Care Teams Registration Manager Relationship Specialty Start Date End Date Gerry Barton DO PCP - General Internal Medicine 08/04/23 Destiny Gant MD [address] [place] [address] Referring Physician Dermatology 10/31/23 Gerry Nelson DO [address] [place] [address] Otolaryngology 10/31/23 documented as of this encounter
[2024-10-24 07:33] LABS: Estimated GFR (African America 23 (>=60 mL/min/1.73m^2); Estimated GFR (Non-African Ame 19 (>=60 mL/min/1.73m^2)
== END 2024-10-24 07:14 | disposition home or self-care (01) ==
LOC: LAB 07:13
PROVIDERS: PCP Internal Medicine; Visit Provider Physician Assistant
DX: R31.21 Asymptomatic microscopic hematuria (principal)
CPT/HCPCS: 36415; 82565; 84520

== ENCOUNTER 2024-10-31 07:10 | Outpatient (OUT) | payer MEDICARE, SELFPAY ==
--- NOTE | 2024-10-31 07:13 | CT_ITS ---
The [address] [address] Patient Name: EUGENIO CREWS MRN: [id number] date: 1945 Sex: M Assigned Patient Location: CT Current Patient Location: CT Accession/Order Number: [id number] Exam Date: 10/31/2024 09:14 Report Date: 10/31/2024 09:27 At the request of: DONITA HANSEN MD Procedure: CT abdomen pelvis wo con CT ABDOMEN AND PELVIS WITHOUT CONTRAST COMPARISON: Microscopic hematuria COMPARISON: 11/05/2022 Spiral images were obtained through the abdomen and pelvis without intravenous contrast. She received oral contrast. This CT exam was performed using one or more following dose reduction techniques: Automated exposure control, adjustment of the mA and/or kV according to patient size, or use of iterative reconstruction technique. Limited cuts bases show minor atelectasis or scarring. Assessment of the intra-abdominal organs is slightly limited by the absence of contrast. The gallbladder is surgically absent. The common duct remains prominent however no common duct stones are noted. No intrahepatic masses are seen. The spleen and adrenal glands are unremarkable. There are pancreatic calcifications suggesting chronic pancreatitis. Mild bilateral perinephric fibrofatty stranding is noted. There is a parapelvic right renal cyst measuring approximately 5.8 cm in size that was also visualized on the comparison. No hydronephrosis is noted. No ureteral dilatation or stones are seen. There is mild atherosclerotic plaque at the aorta, iliac and some of the visceral arteries. There are small lymph nodes. No ascites is identified. A small right supraumbilical ventral hernia containing fat is again noted. The small bowel loops are not distended. There is a tiny duodenal diverticulum. There is anastomotic suture material at the distal transverse colon as well as adjacent small bowel. There is mild colonic stool. There are multilevel degenerative changes at the spine with associated stenosis, greatest at L3-4 and L4-5. Degenerative changes are also seen at the SI joints with partial ankylosis. Images through the pelvis show nondistended small bowel loops. No appendiceal inflammation is seen. There is mild stool at the distal colon. Distal descending and sigmoid diverticula are visualized, without associated active inflammation. The prostate is mildly prominent. The urinary bladder is not well-distended and there is apparent slight wall thickening. No intraluminal abnormalities are seen. There is no ascites. Degenerative changes are visualized at the hips. CT/CT abdomen pelvis wo con IMPRESSION: NO OBSTRUCTIVE UROPATHY OR STONE DISEASE. RIGHT RENAL CYST. UNDER DISTENDED URINARY BLADDER WITH APPARENT WALL THICKENING. FINDINGS SUGGESTING CHRONIC PANCREATITIS. MILD PROSTATE HYPERTROPHY. DIVERTICULOSIS. RIGHT SUPRA UMBILICAL HERNIA CONTAINING FAT. Impression dictated by: Heather Vicente M.D. 10/31/2024 9:27 AM Dictation Location: [place] [address] Electronically authenticated by: [id number] Y Date: 10/31/2024 09:27
--- OUTSIDE RECORDS SUMMARY | 2024-10-31 07:13 | XMS_ITS | CCD ---
Author Organization [facility] Care Team Providers Care Compliance Review Specialist Name Role Phone Bernardo Gerry Primary Care Provider MARYJO KIDD Referring Unavailable BERNARDO, GERRY Mann Primary Care Unavailable KENDALL HONEYCUTT Attending Unavailable KINGS JONES Referring Unavailable BERNARDO, GERRY Mann Primary Care Unavailable YOLY BOSS Referring Unavailable GERRY CHANG Primary Care Unavailable GERRY CHANG Primary Care Physician [phone] Bernardo, Gerry Unavailable BERNARDO, DR CONDON Primary Care Unavailable BALL, DR CONDON Consulting Unavailable BALL, DR CONDON Admitting Unavailable BALL, DR CONDON Attending Unavailable GRILLIS ., DR BLADIMIR Mann Attending Unavaila ble GRILLIS ., DR BLADIMIR Mann Admitting Unavaila ble GRILLIS ., DR BLADIMIR Mann Consulting Unavaila ble BALL, DR CONDON Primary Care Unavailable BELLEVILLE, DR ALONZO Hernandez Consulting Unavailable BALL, DR [...] DR CONDON Primary Care Unavailable BALL, DR CODNON Attending Unavailable BALL, DR CONDON Primary Care Unavailable BALL, DR CONDON Consulting Unavailable BALL, DR CONDON Admitting Unavailable BALL, DR CONDON Attending Unavailable BALL, DR CONDON Primary Care Unavailable HANSEN ., DR DUCKWORTH [...] Unavailable BALL, DR CONDON Primary Care Unavailable Ball, DO Gerry Primary Care Provider DO Gerry Nelson Attending Provider [phone] Gerry Nelson Attending Unavailable Ball, Gerry Primary Care Unavailable Murcek, Gerry Admitting Unavailable Murcek, Gerry Admitting Unavailable Murcek, Gerry Attending Unavailable Ball, Gerry Primary Care Unavailable Gerry Chang MD Primary Care Provider Talib Gant MD Unavailable Murjorge DOGerry Unavailable [phone] TALIB GANT Attending Unavailable MURCEK, GERRY Booker Attending Unavailable PETITTI, TALIB Leon Referring Unavailable MURCEK, GERRY Booker Attending Unavailable MURCEK, GERRY Booker Attending Unavailable BALL, GERRY Mann Referring Unavailable MURCEK, GERRY Booker Attending Unavailable PETITTI, TALIB A Referring Unavailable MURCEK, GERRY Booker Attending Unavailable HERNANDEZ, ROCKY Mann Attending Unavailable ASHLEY MANZANO Attending Unavailable HANSEN, Jenaro R Attending Unavailable HANSEN, Jenaro R Attending Unavailable HANSEN, Jenaro R Attending Unavailable GERRY CHANG Referring Unavailable HANSEN, Jenaro R Admitting Unavailable HANSEN, Jenaro R Attending Unavailable MLEISSA, AILEEN E Attending Unavailable MELISSA, AILEEN E Admitting Unavailable HANSEN, Jenaro R Admitting Unavailable HANSEN, Jenaro R Attending Unavailable HANSEN, Jenaro R Attending Unavailable MELISSA, AILEEN Mann Attending Unavailable Allergies Allergy Classification Reported Allergen(s) Allergy Type Date of Onset Reaction(s) Facility (15 sources) Ketorolac; Translations: [KETOROLAC] Drug Allergy 09-23-19 21 Unknown, Unknown (qualifier value) [facility] (18 sources) Piperacillin / tazobactam; Translations: [PIPERACILLIN-TA ZOBACTAM] Drug Allergy 09-14-19 10 Rash, Eruption of skin (disorder) [facility] (12 sources) Vorinostat; Translations: [vorinostat] Drug Allergy 08-21-19 24 Unknown (qualifier value) [facility] (3 sources) Ketorolac; Translations: [Toradol] Drug Allergy [facility] (1 source) Piperacillin / tazobactam Drug Allergy 01-15-20 16 [facility] (3 sources) tazobactam; Translations: [tazobactam] Drug Allergy 11-05-19 23 [facility] (3 sources) patient allergy list reviewed by nurse or physicia Propensity to adverse reactions 12-26-19 19 Comment:Done [employer] Other (3 sources) Allergies Reconciled Propensity to adverse reactions Unknown [employer] Other (1 source) Piperacillin Drug Allergy 08-22-19 24 [facility] (3 sources) Ketorolac Allergy to substance 09-24-19 21 Unknown [facility] Work Phone: (3 sources) Ketorolac trometamol Allergy to substance 07-25-19 24 Unknown [facility] (3 sources) Piperacillin Drug Allergy 08-22-19 24 [facility] (3 sources) Piperacillin / tazobactam Drug Allergy 09-15-19 10 Rash [facility] (3 sources) Vorinostat Drug Allergy 08-22-19 24 Unknown [facility] Work Phone: (3 sources) Piperacillin Sod-Tazobactam So Drug Intolerance 04-10-20 13 Other [facility] (3 sources) tazobactam; Translations: [tazobactam] Drug Allergy 11-05-19 23 Unknown [facility] Medications Current Medications Medication Drug Class(es) Dates Sig (Normalized) Sig (Original) Aspir-81 81 MG (14 sources) take 1 tablet by mouth three times weekly Aspir-81 81 MG 1 tablet Orally THREE TIMES A WEEK for 30 day(s) Active aspirin 81 mg delayed release oral tablet (20 sources) Platelet Aggregation Inhibitor, Nonsteroidal Anti-inflammatory Drug Start: 07-25-2023 take 1 tablet by mouth three times weekly Aspirin 81 mg tablet,delayed release (DR/EC) Active 81 MG PO 3 Times a week July 25, 2023 12:00am Start: 11-27-2019 take 81 mg by mouth once daily aspirin 81 mg, Oral, Daily, Refills(s) 0 Start Date: 11/27/19 Status: Ordered Repeat number: 1 Start: 11-27-2019 aspirin Refill s(s) 0 Start [...] 1 TABLET BY MOUTH EVERY EVENING Start: 11-27-2019 End: 10-17-2023 take 10 mg by mouth once daily atorvastatin 10 mg, Ora l, Daily, Refills(s) 0 Start Date: 11/27/19 Status: Ordered Repeat number: 1 Start: 11-27-2019 atorvastatin O ral, Daily, Refills(s) 0 Start Date: 11/27/19 Status: Ordered Comment on above: Take 10 mg by mouth once daily. benazepril hydrochloride 10 mg oral tablet (3 sources) Angiotensin Converting Enzyme Inhibitor take 1 tablet by mouth in the morning benazepril (Lotensin) 10 MG tablet Take 10 mg by mouth in the morning. Active calcitriol 0.62913 mg oral capsule (5 sources) Vitamin D3 Analog Start: take 1 capsule by mouth once daily calcitriol 0.25 mcg Cap 0.25 mcg = 1 cap(s), Oral, Daily Start Date: 10/06/24 Status: Ordered Repeat number: 1 Start: 07-21-2024 take [address] [facility] every week Calcitriol 0.25 mcg capsule Active 0.25 MCG PO 3 Times a week July 21, 2024 12:00am administer after dialysis on dialysis days calcium carbonate 1500 mg oral tablet (6 sources) Start: 10-06-2024 take 1 tablet by mouth once daily calcium (as carbonate) 600 mg oral tablet 600 mg = 1 tab(s), Oral, Daily Start Date: 10/06/24 Status: Ordered Repeat number: 1 Start: 05-05-2024 take 1 tablet by [facility] once daily Calcium Carbonate 600 mg calcium [...] take 6.25 mg by mouth twice daily carvedilol 6.25 mg, Oral, BID, Refills(s) 0 Start Date: 11/27/19 Status: Ordered Repeat number: 1 Comment on above: Take 6.25 mg by [...] Once a day for 30 day(s) Active gabapentin 100 mg oral capsule (1 source) Anti-epileptic Agent Start: 5 take 1 capsule by mouth once daily in the evening Gabapentin 100 mg capsule Active 100 MG PO Daily July 30, 2024 12:00am Take in evening daily glimepiride 4 mg oral tablet (20 sources) Sulfonylurea Start: 4 take 2 tablets by mouth once daily [...] take 4 mg by mouth twice daily glimepiride 4 mg, Oral, BID, Refills(s) 0 Start Date: 11/27/19 Status: Ordered Repeat number: 1 Glimepiride 4 MG TAKE 2 TABLETS BY [...] ml insulin glargine 100 unt/ml pen injector (6 sources) Insulin Analog Start: 10-06-2024 inject 8 [IU] by subcutaneous injection once daily Basaglar KwikPen 100 units/mL subcutaneous solution 8 unit(s), SubCutaneous, Daily Start Date: 10/06/24 Status: Ordered Repeat number: 1 Start: 03-31-2024 inject 8 [IU] by sub cutaneous injection once daily in the evening as needed Insulin Glargine (Lantus Solostar U-100 Insulin) 100 unit/mL (3 mL) insulin pen Active 0 SUBCUT Every evening as needed for RBS > 180 3 March 30, 2024 11:00pm 8 units subcutaneously every evening PRN; Levemir FlexPen 100 UNIT/ML (2 sources) Start: 07-07-2022 Levemir FlexPe n 100 UNIT/ML 12 units Subcutaneous Once daily for 90 days Jul, Active lisinopril 2.5 mg oral tablet (20 sources) Angiotensin Converting Enzyme Inhibitor Start: 09-18-2023 take 1 tablet by mouth once daily Lisinopril 2.5 mg tablet Active 0 .ROUTE .COMPLEX September 18, 2023 12:24pm TAKE 1 TABLET BY MOUTH EVERY DAY Start: 11-27-2019 End: 09-18-2023 take 2.5 mg by mouth once daily lisinopril 2.5 mg, Ora l, Daily, Refills(s) 0 Start Date: 11/27/19 Status: Ordered Repeat number: 1 Start: 11-27-2019 lisinopril Ora l, Daily, Refills(s) 0 Start Date: 11/27/19 Status: Ordered Comment on above: Take 2.5 mg by mouth once daily. Magnesium Aspart,Citrate,Oxide 400 mg magnesium capsule (1 source) Start: 5 Magnesium Aspart,Citrate,Oxide 400 mg magnesium capsule Active MG PO July 30, 2024 12:00am magnesium oxide 400 mg oral tablet (3 sources) Start: 5 take 1 tablet by mouth once daily magnesium oxide 400 mg Tab 400 mg = 1 tab(s), Oral, Daily Start Date: 10/06/24 Status: Ordered Repeat number: 1 Metformin & Diet Manage Prod 500 MG (11 sources) Metformin & Diet Manage Prod 500 MG as directed Orally TWICE DAILY Active molnupiravir 200 MG Oral Capsule [Lagevrio] (2 sources) Start: 3 take 4 capsules by mouth every twelve hours Molnupiravir 200 MG 4 capsules Orally every 12 hrs for 5 days Feb, Active SITagliptin 25 mg oral tablet (5 sources) Dipeptidyl Peptidase 4 Inhibitor Start: take 1 tablet by mouth once daily Januvia 25 mg Tab 25 mg = 1 tab(s), Oral, Daily Start Date: 10/06/24 Status: Ordered Repeat number: 1 Start: 07-07-2024 take 1 tablet by gonzalo th once daily Sitagliptin Phosphate (Januvia) 25 mg tablet Active 25 MG PO Daily July 07, 2024 12:00am Completed/Discontinued Medications Medication Drug Class(es) Dates Sig [...] to 1 000 mcg Jun, 1000 mcg ciprofloxacin 500 mg oral tablet (2 sources) Quinolone Antimicrobial Start: 10-16-2024 take 1 tablet by mouth once daily Cipro 500 mg Tab 500 mg = 1 tab(s), Oral, Daily, Take 1 tablet the day before the procedure and 1 tablet after the procedure, # 2 tab(s), Refills(s) 0, Pharmacy: [facility]/pharmacy #[id number], 187, cm, 10/16/24 8:21:00 EDT, Height/Length Dosing, 104.3, kg, 10/16/24 8:21:00 EDT, Weight Dosing Start Date: 10/16/24 Status: Ordered Quantity: 2.0 Unit: tab(s) Repeat number: 1 Insulin Detemir U-100 (Levemir Flexpen) 100 unit/mL (3 mL) insulin pen (11 sources) Start: 08-22-2023 End: 03-31-2024 Insulin Detemir U-100 (Levemir Flexpen) 100 unit/mL [...] Daily at bedtime August 22, 2023 12:00am linagliptin 5 mg oral tablet (20 sources) Dipeptidyl Peptidase 4 Inhibitor Start: 07-21-2024 End: 07-27-2024 take 1 tablet by mouth once daily Linagliptin (Tradjenta) 5 mg tablet Discontinued 5 MG PO Daily July 21, 2024 12:00am July 27, 2024 3:40pm Start: 02-28-2024 End: 07-07-2024 take 1 tablet by mouth once daily Linagliptin (Tradjenta) 5 mg tablet Discontinued 0 .ROUTE .COMPLEX March 11, 2024 4:20pm July 07, 2024 9:21am TAKE 1 TABLET BY MOUTH EVERY DAY [...] Comment on above: 5 mg once daily. traMADol hydrochloride 50 mg oral tablet (20 sources) Opioid Agonist Start: End: 12-02-202 4 take 1 tablet by mouth twice [...] 2023 5:10pm valACYclovir 1000 mg oral tablet (8 sources) Herpesvirus Nucleoside Analog DNA Polymerase Inhibitor, [...] Onset: 7 Chronic Calculus of urinary tract (5 sources) Kidney stone; Translations: [Calculus of kidney] Onset: 4 Episodic Chronic kidney disease (20 sources) Chronic kidney disease, unspecified; Translations: [Chronic kidney disease stage 3] Onset: 6 03-31-2024 Chronic Chronic ulcer of skin (15 sources) Non-pressure chronic ulcer of unspecified part of right lower leg limited to breakdown of skin; Translations: [Chronic ulcer of foot] Onset: 9 Resolved: 0 08-22-2023 Chronic Coagulation and hemorrhagic disorders (10 sources) Blood coagulation disorder; Translations: [Thrombocytopenic disorder] 12-01-2019 Chronic Complication of device; implant or [...] 4 07-25-2023 Episodic Deficiency and other anemia (19 sources) Vitamin B12 deficiency anemia due to intrinsic factor deficiency; Translations: [Pernicious anemia] Episodic Deficiency and other anemia (5 sources) Anemia; Translations: [Anemia, unspecified] Resolved: 0 04-15-2024 Episodic Diabetes mellitus with complications (20 sources) Type 2 diabetes mellitus with diabetic chronic kidney disease; Translations: [Hyperglycemia due to type 2 diabetes mellitus] Onset: 7 Chronic Diabetes mellitus without complication (20 sources) Diabetes mellitus; Translations: [Type 2 diabetes mellitus without complications] Onset: 9 05-05-2019 Chronic Diabetes mellitus without complication (8 sources) Glycosuria; Translations: [Glycosuria] Onset: 4 12-01-2019 Episodic Diseases of white blood cells (7 sources) Neutropenia; Translations: [Neutropenia, unspecified] Onset: 0 08-22-2023 Chronic Disorders of lipid metabolism (20 sources) Mixed hyperlipidemia; Translations: [Hyperlipidemia, unspecified] Onset: 2 Resolved: 4 Chronic Essential hypertension (20 sources) Essential (primary) hypertension; Translations: [Essential hypertension] Onset: 2 Resolved: 4 Chronic Genitourinary symptoms and ill-defined conditions (12 sources) Proteinuria; Translations: [Asymptomatic microscopic hematuria] Onset: 4 12-01-2019 Episodic Hyperplasia of prostate (20 sources) Benign prostatic hyperplasia; Translations: [Benign prostatic hyperplasia without lower urinary tract symptoms] Onset: 0 Chronic Hypertension with complications and secondary hypertension (9 sources) Hypertensive chronic kidney disease with stage [...] unspecified, unspecified site] Onset: 0 Chronic Osteoarthritis (14 sources) Arthritis; Translations: [Osteoarthritis] Onset: 4 12-01-2019 Chronic Other aftercare (5 sources) Encounter for adjustment and management of vascular access device; Translations: [ENC ADJUSTMENT AND MANAGEMENT VAD] Onset: 2 Episodic Other aftercare (2 sources) Other termite control servicer (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; Translations: [OTH SENIOR CARE CURRENT DRUG THERAPY] Onset: 2 Episodic Other aftercare (3 sources) Long-term current use of 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; Translations: [Other mcfp (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] Episodic Other aftercare (4 sources) H/O: high risk medication; Translations: [Other mcfp (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] Episodic Other and unspecified [...] diseases of kidney and ureters (3 sources) Secondary hyperparathyroidism; Translations: [Secondary hyperparathyroidism of renal origin] 05-05-2024 Chronic Other diseases of kidney and ureters (5 sources) Secondary hyperparathyroidism of renal origin; Translations: [Secondary hyperparathyroidism (of renal origin)] 05-05-2024 Chronic Other diseases of kidney and ureters (3 sources) Disorder of kidney and/or ureter; Translations: [Disorder of kidney and ureter, unspecified] Episodic Other diseases of kidney and ureters (1 source) Acquired renal cyst without neoplastic change; Translations: [Cyst of kidney, acquired] Onset: 4 Episodic Other diseases of kidney and ureters (4 sources) Cyst of kidney 04-14-2024 Episodic Other diseases [...] Episodic Other diseases of veins and lymphatics (12 sources) Venous insufficiency (chronic) (peripheral); Translations: [Venous [...] Chronic Other nutritional; endocrine; and metabolic disorders (7 sources) Obesity; Translations: [Obesity, unspecified] 03-31-2024 Chronic Other nutritional; endocrine; and metabolic disorders (1 source) Other obesity due to excess calories Chronic Other nutritional; endocrine; and metabolic disorders (1 source) Body mass index (BMI) 30.0-30.9, adult Chronic Other nutritional; endocrine; and metabolic disorders (3 sources) Obesity, unspecified; Translations: [Obesity, unspecified] 03-31-2024 Chronic Other nutritional; endocrine; and metabolic disorders (2 sources) Hypomagnesemia; Translations: [Hypomagnesemia] 07-21-2024 Chronic Other nutritional; endocrine; and metabolic disorders (2 sources) Hypomagnesemia; Translations: [Disorders of magnesium metabolism] 07-21-2024 Chronic Other screening for suspected conditions (not [...] and visceral atherosclerosis (3 sources) 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; Translations: [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, unspecified] Chronic Residual codes; unclassified (1 source) Other transplanted organ and tissue status; Translations: [OTH TRANSPLANTED ORGAN AND TISSUE STS] Onset: 2 Chronic Residual codes; unclassified (1 source) Bone marrow transplant status; Translations: [BONE MARROW TRANSPLANT STATUS] Onset: 2 Chronic Residual codes; unclassified (3 sources) Preventive procedure; Translations: [Encounter for other specified prophylactic measures] Episodic Unclassified (5 sources) Asymptomatic microscopic hematuria 03-28-2021 Unclassified (3 sources) Long-term current use of 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; Translations: [Long-term (current) use of other medications] Onset: 6 Unclassified (4 sources) Atrophy of left kidney 04-14-2024 Viral infection (11 sources) Herpes zoster; Translations: [Zoster without complications] [...] Onset: 8 Episodic Other aftercare (1 source) joint terminal attack controller (current) use of oral hypoglycemic drugs; Translations: [SENIOR CARE USE ORAL HYPOGLYCEMIC DX] Onset: 2 Episodic [...] index 30.0-30.9, adult] Onset: 0 Resolved: 4 02-21-2024 Chronic Other nutritional; endocrine; and metabolic disorders [...] Test Name Value Interpretation Reference Range Facility Urine Cytology ([facility])on 10-21-2024 Microscopic exam Cytology (U) [Interp] Diagnosis Info Invalid Interpretation Code [facility] Comment on above: Result Comment: A:Ur ine,Clean Catch:Bladder Wash Interpretation - Adequate cellularity for evaluation. CPT 95895 MicroScopic Description - Adequacy - Gross Description Site ID:A color Yellow fixative Alcohol Specimen designated Clean Catch received in alcohol preservative and labeled with the patient???s name, consists of 80ml slightly cloudy yellow fluid. Electronically signed by : on: 10/21/2024 13:22:38 Performed By: #### 1 [id number] #### [facility] [address] [place] [address] Urine Cytology ([facility])on 10-16-2024 UC Method of Extraction Bladder Urine Normal [facility] Comment on above: Performed By: #### 1 [id number] #### [facility] [address] [place] [address] Number of Jars 1 Invalid Interpretation Code [facility] Comment on above: Performed By: #### 1 [id number] #### [facility] [address] [place] [address] Specimen Clean Catch Normal [facility] Comment on above: Performed By: #### 1 [id number] #### [facility] [address] [place] [address] Type of Service Technical Only Normal [facility] Comment on above: Performed By: #### 1 [id number] #### [facility] [address] [place] [address] Urology Office/Clinic Noteon 10-16-2024 Urology Office/Clinic Note Urology Office/Clinic Note Chief Complaint discuss UA [...] E&M of Est. Patient Moderate 30-39 Min 11872 Influenza immunization status assessed 1030F Medication list [...] Urnls Dip Stick Auto w/o Microscopy POC 08495 Orders: ciprofloxacin, 500 mg = 1 tab(s), Oral, Daily, Take 1 tablet the day before the procedure and 1 tablet after the procedure, # 2 tab(s), Refills(s) 0, Pharmacy: [facility]/pharmacy #[id number], 187, cm, 10/16/24 8:21:00 EDT, Height/Length Dosing, 104.3, kg, 10/16/24 8:21:00 EDT,... Follow-up With When Contact Information [facility] Additional Instructions: For procedure as scheduled. Patient [...] Cystoscopy (06/14/2012), Cholecystectomy (2011), Colonoscopy, EGD - Esophagogastroduodenosc opy, Laparoscopy, Partial resection of colon, Total knee [...] mellitus type 2: Mother. Heart disease: Mother an (more content not included)... Normal [facility] Comment on above: Result Comment: Elec tronically Signed By: AILEEN TORRES PA-C\.scarlet\Date and Time Signed: 10/16/24 10:11 EDT Ambulatory Visit Summaryon 0 10-06-2024 Ambulatory Visit Summary Ambulatory Visit Summary MARS EGUENIO L :1945 Visit Date:10/06/2024 Ambulatory Visit Instructions Your Diagnosis Elevated PSA Asymptomatic microscopic hematuria BPH with urinary obstruction Kidney stones Renal cyst Renal atrophy, left Tests Performed XR Abdomen 1 View -- Results Pending -- Please visit your patient portal for your results or contact your primary care physician. Your Care Team Attending Physician - JADE [...] Cystoscopy (06/14/2012), Cholecystectomy (2011), Colonoscopy, EGD - Esophagogastroduodenosc opy, Laparoscopy, Partial resection of colon, Total knee [...] Up with JADE DOYLE, BERRY Gaspar When: Where: [facility] [address] , [place] [address]- [id number] Medications What How Much When Instructions Unchanged [...] urinary cancers. Follow these instructions at home: Medi (more content not included)... Normal [facility] URINALYSISOrdered By: SYSTEM SYSTEM on 10-06-2024 Bilirubin Ql (U) Negative Normal Negativemg/ dL [facility] UA Auto SS Clarity (U) Clear (10/06/24 10:41 AM) Normal Clear [facility] UA Auto SS Color (U) Light-Yellow 1 (10/06/24 10:41 AM) Normal Yellow [facility] UA Auto SS Comment on above: Interpretive Data: M icroscopic readings are only performed on those samples that meet specific criteria set forth by [facility]. Epithelial cells.squamous Auto (Urine sed) [#/Area] 0-2 graded/HPF Invalid Interpretation Code [facility] UA Auto SS Glucose Ql (U) 3+ mg/dL Invalid Interpretation Code Negativemg/ dL [facility] UA Auto SS Hemoglobin Auto test strip (U) [Mass/Vol] Trace mg/dL Invalid Interpretation Code Negativemg/ dL FT UA Auto SS Ketones Auto test strip Ql (U) Negative Normal Negativemg/ dL FT UA Auto SS Leukocyte esterase Auto test strip Ql (U) Negative Normal NegativeLeu /uL FT UA Auto SS Mucus Auto Ql (U) Trace graded/LPF Normal Negati vegra ded/LPF FT UA Auto SS Nitrite Auto test strip Ql (U) Negative Normal Negativemg/ dL FT UA Auto SS pH (U) 6.0 *NA* (10/06/24 10:41 AM) Invalid Interpretation Code 5.0 - 9.0 FT UA Auto SS Protein Ql (U) 1+ mg/dL Invalid Interpretation Code Negativemg/ dL FT UA Auto SS RBC Ql (U) 4-20 graded/HPF Invalid Interpretation Code 0-3graded/H PF FT UA Auto SS Specific gravity (U) [Rel density] 1.017 *NA* (10/06/24 10:41 AM) Invalid Interpretation Code 1.005 - 1.030 [facility] UA Auto SS Urobilinogen (U) [Mass/Vol] Negative Normal Negativemg/ dL [facility] UA Auto SS WBC Auto (Urine sed) [#/Area] 0-5 graded/HPF Normal 0-5graded/H PF FT UA Auto SS URINALYSISOrdered By: James Dao on 10-06-2024 UA Spec Desc Random Urine (10/06/24 10:41 AM) Normal [facility] UA Auto SS Urinalysis with Microon Bilirubin Ql (U) Negative Normal Negative [facility] Comment on above: Performed By: #### 4 [id number] #### [facility] [address] [place] [address] Clarity (U) Clear Normal Clear [facility] Comment on above: Performed By: #### 4 [id number] #### [facility] [address] [place] [address] Color (U) Light-Yellow Normal Yellow [facility] Comment on above: Result Comment: Micr oscopic readings are only performed on those samples that meet specific criteria set forth by [facility]. Performed By: #### 4 [id number] #### [facility] [address] [place] [address] Epithelial cells.squamous Auto (Urine sed) [#/Area] 0-2 Invalid Interpretation Code [facility] Comment on above: Performed By: #### 4 [id number] #### [facility] [address] [place] [address] Glucose Ql (U) 3+ mg/dL Abnormal Negative [facility] Comment on above: Performed By: #### 4 [id number] #### [facility] [address] [place] [address] Hemoglobin Auto test strip (U) [Mass/Vol] Trace Abnormal Negative [facility] Comment on above: Performed By: #### 4 [id number] #### [facility] [address] [place] [address] Ketones Auto test strip Ql (U) Negative Normal Negative [facility] Comment on above: Performed By: #### 4 [id number] #### [facility] [address] [place] [address] Leukocyte esterase Auto test strip Ql (U) Negative Normal Negative [facility] Comment on above: Performed By: #### 4 [id number] #### [facility] [address] [place] [address] Mucus Auto Ql (U) Trace Normal Negative [facility] Comment on above: Performed By: #### 4 [id number] #### [facility] [address] [place] [address] Nitrite Auto test strip Ql (U) Negative Normal Negative [facility] Comment on above: Performed By: #### 4 [id number] #### [facility] [address] [place] [address] pH (U) 6.0 [pH] Invalid Interpretation Code 5.0-9.0 [facility] Comment on above: Performed By: #### 4 [id number] #### [facility] [address] [place] [id number] Protein Ql (U) 1+ mg/dL Abnormal Negative [facility] Comment on above: Performed By: #### 4 [id number] #### [facility] [address] [place] [id number] RBC Ql (U) 4-20 Abnormal 0-3 [facility] Comment on above: Performed By: #### 4 [id number] #### [facility] [address] [place] [id number] Specific gravity (U) [Rel density] 1.017 Invalid Interpretation Code 1.005-1.030 [facility] Comment on above: Performed By: #### 4 [id number] #### [facility] [address] [place] [id number] Urobilinogen (U) [Mass/Vol] Negative Normal Negative [facility] Comment on above: Performed By: #### 4 [id number] #### [facility] [address] [place] [id number] WBC Auto (Urine sed) [#/Area] 0-5 Normal 0-5 [facility] Comment on above: Performed By: #### 4 [id number] #### [facility] [address] [place] [id number] Type of Urine collection method Random Urine Normal [facility] Comment on above: Performed By: #### 4 [id number] #### [facility] [address] [place] [id number] Urology Office/Clinic Noteon 10-06-2024 Urology Office/Clinic Note Urology Office/Clinic Note Chief Complaint 6 month [...] and history for this patient from Dr. Hansen. I have reviewed and verified the staff [...] 19. Dr. Chang referred pt to nephrology. [4] Follow-up With When Contact Information JADE DOYLE, Jenaro Roberto, [facility] [address], [place] [phone] Additional Instructions: 6 mos w/ PSA and KUB Patient Education Hematuria, Adult I, Rochelle Hightower, personally scribed for Dr. Hansen on 10/06/2024 09:15:29. . Documentation recorded by the scribe, Rochelle Hightower, accurately reflects the services(s) I performed and decisions made by me. Authenticated by Dr. Hansen on 10/06/2024 09:17:15. Problem List/Past Medical History Ongoing Arthritis Asymptomatic microscopic hematuria Basal cell carcinoma Bleeding disorder BPH with urinary obstruction Diabetes Elevated PSA Glucosuria Hyperlipidemia Hypertension Kidney stones Lymphoma Non-Hodgkin's lymphoma (clinical) Protein in urine Renal atrophy, left Renal cyst Historical No qualifying data Procedure/Surgical History Cystoscopy (06/15/2014), Urodynamics (06/26/2012), Cystoscopy (06/14/2012), Cholecystectomy (2011), Colonoscopy, EGD - Esophagogastroduodenosc opy, Laparoscopy, Partial resection of colon, Total knee [...] mg= 1 tab(s), Oral, Daily Allergies Toradol ( (more content not included)... Normal [facility] Comment on above: Result Comment: Elec tronically Signed By: Jenaro HANSEN MD\.br\Date and Time Signed: 10/06/24 09:17 EDT\.br\Electronically Co-Signed By: Rochelle Hightower\.br\Date and Time Co-Signed: 10/06/24 09:16 EDT Albumin [Mass/volume] in Ser um or Plasmaon 07-21-2024 Albumin [Mass/Vol] Albumin [Mass/volume ] in Serum or Plasma 2.9-4.4 [facility] IgA [Mass/volume] in Serum o r Plasmaon 07-21-2024 IgA [Mass/Vol] IgA [Mass/volume] in Serum or Plasma 61-437 [facility] IgG [Mass/volume] in Serum o r Plasmaon 07-21-2024 IgG [Mass/Vol] IgG [Mass/volume] in Serum or Plasma 603-1613 [facility] IgM [Mass/volume] in Serum o r Plasmaon 07-21-2024 IgM [Mass/Vol] IgM [Mass/volume] in Serum or Plasma 15-143 [facility] Immunoglobulin light chains. kappa.free [Mass/volume] in Serumon 07-21-2024 Immunoglobulin light chains.kappa.free (S) [Mass/Vol] Immunoglobulin light chains.kappa.free [Mass/volume] in Serum Abnormal 3.3-19.4 [facility] Immunoglobulin light chains. kappa.free/Immunoglobulin light chains.lambda.free [Sean 07-21-2024 Immunoglobulin light chains.kappa.free/Immun oglobulin light chains.lambda.free (S) [Mass ratio] Immunoglobulin light chains.kappa.free/Immun oglobulin light chains.lambda.free [Mass 0.26-1.65 [facility] Comment on above: Performed at: [address] [id number] Director: Karel Kaye PhD, Phone: [phone] Immunoglobulin light chains. lambda.free [Mass/volume] in Serum or Plasmaon 07-21-2024 Immunoglobulin light chains.lambda.free [Mass/Vol] Immunoglobulin light chains.lambda.free [Mass/volume] in Serum or Plasma Abnormal 5.7-26.3 [facility] No Panel Informationon 07-21 Protein Electrophoresis M-Petar Not Observed g/dL Not Observed [facility] Protein Electrophoresis Note Comment . [facility] Comment on above: Protein electrophore sis scan will follow via computer,mail, or pulling unit operator delivery. Protein [Mass/volume] in Ser um or Plasmaon 07-21-2024 Protein [Mass/Vol] Protein [Mass/volume ] in Serum or Plasma 6.0-8.5 [facility] Serum globulin measurement ( mass/volume)on 07-21-2024 Globulin (S) [Mass/Vol] Serum globulin measurement (mass/volume) 2.2-3.9 [facility] Serum or plasma albumin/glob ulin mass ratioon 07-21-2024 Albumin/Globulin [Mass ratio] Serum or plasma albumin/globulin mass ratio 0.7-1.7 [facility] Serum or plasma alpha 1 glob ulin measurement by electrophoresis (mass/volume)on 07-21-2024 Alpha 1 globulin Elph [Mass/Vol] Serum or plasma alpha 1 globulin measurement by electrophoresis (mass/volume) 0.0-0.4 [facility] Serum or plasma alpha 2 glob ulin measurement by electrophoresis (mass/volume)on 07-21-2024 Alpha 2 globulin Elph [Mass/Vol] Serum or plasma alpha 2 globulin measurement by electrophoresis (mass/volume) 0.4-1.0 [facility] Serum or plasma beta globuli n measurement by electrophoresis (mass/volume)on 07-21-2024 Beta globulin Elph [Mass/Vol] Serum or plasma beta globulin measurement by electrophoresis (mass/volume) 0.7-1.3 [facility] Serum or plasma gamma globul in measurement by electrophoresis (mass/volume)on 07-21-2024 Gamma globulin Elph [Mass/Vol] Serum or plasma gamma globulin measurement by electrophoresis (mass/volume) 0.4-1.8 [facility] Serum or plasma immunoelectr ophoresis interpretationon 07-21-2024 Interpretation IEP [Interp] Serum or plasma immunoelectrophoresis interpretation . [facility] Comment on above: Presence of monoclon al protein is unclear at this time. Suggestrepeat in 3 to 6 months if clinically indicated. Erythrocyte distribution wid th Auto (RBC) [Ratio]on 07-14-2024 Erythrocyte distribution width (RBC) [Ratio] Erythrocyte distribution width [Ratio] by Automated count 11.0-15.0 [facility] Estimated glomerular filtrat ion rate (GFR) non- Americanon 07-14-2024 GFR/1.73 sq M.predicted among non-blacks MDRD (S/P/Bld) [Vol rate/Area] Estimated glomerular filtration rate (GFR) non- Low >=60 mL/min/1.73 m 2 [facility] Hematocrit Auto (Bld) [Volum e fraction]on 07-14-2024 Hematocrit (Bld) [Volume fraction] Hematocrit [Volume Fraction] of Blood by Automated count Low 42.0-54.0 [facility] Hemoglobin [Mass/volume] in Bloodon 07-14-2024 Hemoglobin (Bld) [Mass/Vol] Hemoglobin [Mass/volume] in Blood Low 14.0-18.0 [facility] Iron binding capacity [Mass/ volume] in Serum or Plasmaon 07-14-2024 Iron binding capacity [Mass/Vol] Iron binding capacity [Mass/volume] in Serum or Plasma 250.0-450.0 [facility] Iron saturation [Mass Fracti on] in Serum or Plasmaon 07-14-2024 Iron saturation [Mass fraction] Iron saturation [Mass Fraction] in Serum or Plasma [facility] Laboratory - Chemistry and C hemistry - challengeon 07-14-2024 Bilirubin Ql (U) Negative NEGATIVE [facility] Glucose (U) [Mass/Vol] 500 mg/dL Abnormal NEGATIVE [facility] Ketones Ql (U) Negative NEGATIVE [facility] pH (U) 6.0 [pH] 5.0-9.0 [facility] Specific gravity (U) [Rel density] 1.025 1.005-1.025 [facility] Urobilinogen Qn (U) 0.2 {Bisi'U}/dL 0.2-1.0 [facility] Albumin [Mass/Vol] 3.6 g/dL 3.4-5.0 [facility] Calcium [Mass/Vol] 8.4 mg/dL Low 8.5-10.1 [facility] Chloride [Moles/Vol] 106 mmol/L 98-107 [facility] CO2 [Moles/Vol] 25.5 mmol/L 21.0-32.0 [facility] Creatinine [Mass/Vol] 3.27 mg/dL High 0.70-1.30 [facility] Ferritin [Mass/Vol] 230.0 ng/mL 26.0-388.0 [facility] GFR/1.73 sq M.predicted MDRD (S/P/Bld) [Vol rate/Area] 22 mL/min/{1.73_m2} Low >=60 mL/min/1.73 m 2 [facility] Glucose [Mass/Vol] 141 mg/dL High 74-106 [facility] Iron [Mass/Vol] 82.0 ug/dL 65.0-175.0 [facility] Magnesium [Mass/Vol] 1.7 mg/dL Low 1.8-2.4 [facility] Potassium [Moles/Vol] 4.7 mmol/L 3.5-5.1 [facility] Sodium [Moles/Vol] 142 mmol/L 136-145 [facility] Urate [Mass/Vol] 5.4 mg/dL 3.5-7.2 [facility] Urea nitrogen [Mass/Vol] 46.0 mg/dL High 7.0-18.0 [facility] Urea nitrogen/Creatinine [Mass ratio] 14.1 mg/mg [facility] Laboratory - Specimen inform ationon 07-14-2024 Appearance (U) CLEAR CLEAR [facility] Color (U) YELLOW YELLOW [facility] Laboratory - Urinalysison Leukocyte esterase Test strip Ql (U) Negative NEGATIVE [facility] Mucus Ql (Urine sed) TRACE Abnormal NONE SEEN [facility] Nitrite Ql (U) Negative NEGATIVE [facility] Protein (U) [Mass/Vol] 101.7 mg/dL High <=11.9 [facility] Protein Ql (U) 100 mg/dL Abnormal NEG/TRACE [facility] Leukocytes [#/volume] correc yoseph for nucleated erythrocytes in Blood by Automated counon 07-14-2024 WBC corrected for nucl RBC Auto (Bld) [#/Vol] Leukocytes [#/volume] corrected for nucleated erythrocytes in Blood by Automated coun 4.0-11.0 [facility] MCH Auto (RBC) [Entitic mass ]on 07-14-2024 MCH (RBC) [Entitic mass] MCH [Entitic mass] by Automated count 25.9-34.0 [facility] MCHC Auto (RBC) [Mass/Vol]on 07-14-2024 MCHC (RBC) [Mass/Vol] MCHC [Mass/volume] by Automated count 29.9-35.2 [facility] MCV Auto (RBC) [Entitic vol] on 07-14-2024 MCV (RBC) [Entitic vol] MCV [Entitic vol ume] by Automated count High 80.0-94.0 [facility] No Panel Informationon 07-14 Urine Bacteria NONE SEEN #/HPF NONE SEEN [facility] Urine Occult Blood TRACE-I NEGATIVE [facility] Urine Random Creatinine 129.70 mg/dL 20.0 0-300.0 0 [facility] Urine RBC 0-2 #/HPF 0-2 [facility] Urine Squamous Epithelial Cells FEW #/LPF Abnormal NONE/RARE [facility] Urine WBC 0-2 #/HPF Abnormal NONE SEEN [facility] 25-Hydroxy Vitamin D Total 35.2 ng/mL [facility] Comment on above: <20 ng/mL Vit D defi cient20-<30 ng/mL Vit D [id number] ng/mL Vit D sufficient>100 ng/mL Potential Toxicity Parathyroid Hormone (Intact) 175 pg/mL Abnormal 15-65 [facility] Comment on above: Performed at: - [facility] [employer] [address] [id number] Director: Karel Kaye PhD, Phone: [phone] Phosphorus Level 3.9 mg/dL 2.6-4.7 [facility] Platelet mean volume Auto (B ld) [Entitic vol]on 07-14-2024 Platelet mean volume (Bld) [Entitic vol] Platelet mean volume [Entitic volume] in Blood by Automated count Low 9.5-13.5 [facility] Platelets Auto (Bld) [#/Vol] on 07-14-2024 Platelets (Bld) [#/Vol] Platelets [#/vol ume] in Blood by Automated count Low 150-450 [facility] RBC Auto (Bld) [#/Vol]on RBC (Bld) [#/Vol] Erythrocytes [#/volu me] in Blood by Automated count Low 4.70-6.10 [facility] Serum or plasma anion gap de terminationon 07-14-2024 Anion gap [Moles/Vol] Serum or plasma an ion gap determination [facility] Urine protein/creatinine rat ioon 07-14-2024 Protein/Creatinine (U) [Ratio] Urine protein/creatinine ratio [facility] Albumin [Mass/volume] in Ser um or Plasmaon 04-11-2024 Albumin [Mass/Vol] Albumin [Mass/volume ] in Serum or Plasma 2.9-4.4 [facility] Hepatitis B virus surface Ab [Presence] in Serumon 04-11-2024 HBV surface Ab Ql (S) Hepatitis B virus surface Ab [Presence] in Serum Abnormal Immunity>10 [facility] Comment on above: Status of Immunity A nti-HBs Level Inconsistent with Immunity 0.0 - 10.0Consistent with Immunity >10.0 Hepatitis B virus surface Ag [Presence] in Serum or Plasma by Immunoassayon 04-11-2024 HBV surface Ag IA Ql Hepatitis B virus surface Ag [Presence] in Serum or Plasma by Immunoassay Negative [facility] IgA [Mass/volume] in Serum o r Plasmaon 04-11-2024 IgA [Mass/Vol] IgA [Mass/volume] in Serum or Plasma 61-437 [facility] IgG [Mass/volume] in Serum o r Plasmaon 04-11-2024 IgG [Mass/Vol] IgG [Mass/volume] in Serum or Plasma 603-1613 [facility] IgM [Mass/volume] in Serum o r Plasmaon 04-11-2024 IgM [Mass/Vol] IgM [Mass/volume] in Serum or Plasma 15-143 [facility] Immunoglobulin light chains. kappa.free [Mass/volume] in Serumon 04-11-2024 Immunoglobulin light chains.kappa.free (S) [Mass/Vol] Immunoglobulin light chains.kappa.free [Mass/volume] in Serum Abnormal 3.3-19.4 [facility] Immunoglobulin light chains. kappa.free/Immunoglobulin light chains.lambda.free [Sean 04-11-2024 Immunoglobulin light chains.kappa.free/Immun oglobulin light chains.lambda.free (S) [Mass ratio] Immunoglobulin light chains.kappa.free/Immun oglobulin light chains.lambda.free [Mass 0.26-1.65 [facility] Comment on above: Performed at: [place] [id number] Director: Karel Kaye PhD, Phone: [phone] Immunoglobulin light chains. lambda.free [Mass/volume] in Serum or Plasmaon 04-11-2024 Immunoglobulin light chains.lambda.free [Mass/Vol] Immunoglobulin light chains.lambda.free [Mass/volume] in Serum or Plasma Abnormal 5.7-26.3 [facility] Laboratory - Urinalysison Protein (U) [Mass/Vol] 104.8 mg/dL High <=11.9 [facility] No Panel Informationon 04-11 25-Hydroxy Vitamin D Total 36.9 ng/mL [facility] Comment on above: <20 ng/mL Vit D defi cient20-<30 ng/mL Vit D [id number] ng/mL Vit D sufficient>100 ng/mL Potential Toxicity Hepatitis B Core Total Antibody Negative Negative [facility] Comment on above: Performed at: CB - [facility] [employer] [address] [id number] Director: Karel Kaye PhD, Phone: [phone] Protein Electrophoresis M-Petar Not Observed g/dL Not Observed [facility] Protein Electrophoresis Note Comment . [facility] Comment on above: Protein electrophore sis scan will follow via computer,mail, or pulling unit operator delivery. Urine Random Creatinine 134.54 mg/dL 20.0 0-300.0 0 [facility] Protein [Mass/volume] in Ser um or Plasmaon 04-11-2024 Protein [Mass/Vol] Protein [Mass/volume ] in Serum or Plasma 6.0-8.5 [facility] Serum globulin measurement ( mass/volume)on 04-11-2024 Globulin (S) [Mass/Vol] Serum globulin measurement (mass/volume) 2.2-3.9 [facility] Serum or plasma albumin/glob ulin mass ratioon 04-11-2024 Albumin/Globulin [Mass ratio] Serum or plasma albumin/globulin mass ratio 0.7-1.7 [facility] Serum or plasma alpha 1 glob ulin measurement by electrophoresis (mass/volume)on 04-11-2024 Alpha 1 globulin Elph [Mass/Vol] Serum or plasma alpha 1 globulin measurement by electrophoresis (mass/volume) 0.0-0.4 [facility] Serum or plasma alpha 2 glob ulin measurement by electrophoresis (mass/volume)on 04-11-2024 Alpha 2 globulin Elph [Mass/Vol] Serum or plasma alpha 2 globulin measurement by electrophoresis (mass/volume) 0.4-1.0 [facility] Serum or plasma beta globuli n measurement by electrophoresis (mass/volume)on 04-11-2024 Beta globulin Elph [Mass/Vol] Serum or plasma beta globulin measurement by electrophoresis (mass/volume) 0.7-1.3 [facility] Serum or plasma gamma globul in measurement by electrophoresis (mass/volume)on 04-11-2024 Gamma globulin Elph [Mass/Vol] Serum or plasma gamma globulin measurement by electrophoresis (mass/volume) 0.4-1.8 [facility] Serum or plasma immunoelectr ophoresis interpretationon 04-11-2024 Interpretation IEP [Interp] Serum or plasma immunoelectrophoresis interpretation . [facility] Comment on above: Presence of monoclon al protein is unclear at this time. Suggestrepeat in 3 to 6 months if clinically indicated. Urine protein/creatinine rat ioon 04-11-2024 Protein/Creatinine (U) [Ratio] Urine protein/creatinine ratio [facility] Basophils Auto (Bld) [#/Vol] on 04-01-2024 Basophils (Bld) [#/Vol] Automated basoph il count 0.0-0.1 [facility] Basophils/100 WBC Auto (Bld) on 04-01-2024 Basophils/100 WBC (Bld) Automated basophil % 0. 2-2.0 [facility] Cholesterol in LDL Calc [Mas s/Vol]on 04-01-2024 Cholesterol in LDL [Mass/Vol] Cholesterol in LDL [Mass/volume] in Serum or Plasma by calculation [facility] Comment on above: <100 mg/dl [id number] 0-129 mg/dl NEAR OR ABOVE [id number] mg/dl BORDERLINE [id number] mg/dl HIGH>190 mg/dl VERY HIGH Cholesterol in VLDL Calc [Ma ss/Vol]on 04-01-2024 Cholesterol in VLDL [Mass/Vol] Cholesterol in VLDL [Mass/volume] in Serum or Plasma by calculation [facility] Eosinophils/100 WBC Auto (Bl d)on 04-01-2024 Eosinophils/100 WBC (Bld) Automated eosinophil % 0.9-7.0 [facility] Erythrocyte distribution wid th Auto (RBC) [Ratio]on 04-01-2024 Erythrocyte distribution width (RBC) [Ratio] Erythrocyte distribution width [Ratio] by Automated count 11.0-15.0 [facility] Estimated glomerular filtrat ion rate (GFR) non- Americanon 04-01-2024 GFR/1.73 sq M.predicted among non-blacks MDRD (S/P/Bld) [Vol rate/Area] Estimated glomerular filtration rate (GFR) non- Low >=60 mL/min/1.73 m 2 [facility] Globulin Calc (S) [Mass/Vol] on 04-01-2024 Globulin (S) [Mass/Vol] Serum globulin measurement by calculation (mass/volume) [facility] Hematocrit Auto (Bld) [Volum e fraction]on 04-01-2024 Hematocrit (Bld) [Volume fraction] Hematocrit [Volume Fraction] of Blood by Automated count Low 42.0-54.0 [facility] Hemoglobin [Mass/volume] in Bloodon 04-01-2024 Hemoglobin (Bld) [Mass/Vol] Hemoglobin [Mass/volume] in Blood Low 14.0-18.0 [facility] Laboratory - Chemistry and C hemistry - challengeon 04-01-2024 Albumin [Mass/Vol] 3.2 g/dL Low 3.4-5.0 [facility] ALP [Catalytic activity/Vol] 92 U/L 46-116 [facility] ALT [Catalytic activity/Vol] 14 U/L Low 16-63 [facility] AST [Catalytic activity/Vol] 12 U/L Low 15-37 [facility] Bilirubin [Mass/Vol] 0.4 mg/dL 0.2-1.0 [facility] Calcium [Mass/Vol] 8.4 mg/dL Low 8.5-10.1 [facility] Chloride [Moles/Vol] 109 mmol/L High 98-107 [facility] Cholesterol [Mass/Vol] 103 mg/dL <=200 [facility] Cholesterol in HDL [Mass/Vol] 36 mg/dL Low 40-60 [facility] Comment on above: > or =60 mg/dl - LOW CARDIOVASCULAR RISK<40 mg/dl - HIGH CARDIOVASCULAR RISK CO2 [Moles/Vol] 21.1 mmol/L 21.0-32.0 [facility] Creatinine [Mass/Vol] 3.15 mg/dL High 0.70-1.30 [facility] GFR/1.73 sq M.predicted MDRD (S/P/Bld) [Vol rate/Area] 23 mL/min/{1.73_m2} Low >=60 mL/min/1.73 m 2 [facility] Glucose [Mass/Vol] 151 mg/dL High 74-106 [facility] Potassium [Moles/Vol] 4.9 mmol/L 3.5-5.1 [facility] Protein [Mass/Vol] 6.5 g/dL 6.4-8.2 [facility] Sodium [Moles/Vol] 142 mmol/L 136-145 [facility] Triglyceride [Mass/Vol] 170 mg/dL High <=150 [facility] Urea nitrogen [Mass/Vol] 48.0 mg/dL High 7.0-18.0 [facility] Urea nitrogen/Creatinine [Mass ratio] 15.2 mg/mg [facility] Laboratory - Hematology and Cell countson 04-01-2024 Immature granulocytes/100 WBC (Bld) 0.3 % 0.0-0.5 [facility] Laboratory - Urinalysison Protein (U) [Mass/Vol] 94.1 mg/dL High <=11.9 [facility] Leukocytes [#/volume] correc yoseph for nucleated erythrocytes in Blood by Automated counon 04-01-2024 WBC corrected for nucl RBC Auto (Bld) [#/Vol] Leukocytes [#/volume] corrected for nucleated erythrocytes in Blood by Automated coun 4.0-11.0 [facility] Lymphocytes Auto (Bld) [#/Vo l]on 04-01-2024 Lymphocytes (Bld) [#/Vol] Lymphocytes [#/volume] in Blood by Automated count Low 1.2-3.8 [facility] Lymphocytes/100 WBC Auto (Bl d)on 04-01-2024 Lymphocytes/100 WBC (Bld) Lymphocytes/100 leukocytes in Blood by Automated count Low 20.5-60.0 [facility] MCH Auto (RBC) [Entitic mass ]on 04-01-2024 MCH (RBC) [Entitic mass] MCH [Entitic mass] by Automated count 25.9-34.0 [facility] MCHC Auto (RBC) [Mass/Vol]on 04-01-2024 MCHC (RBC) [Mass/Vol] MCHC [Mass/volume] by Automated count 29.9-35.2 [facility] MCV Auto (RBC) [Entitic vol] on 04-01-2024 MCV (RBC) [Entitic vol] MCV [Entitic vol ume] by Automated count High 80.0-94.0 [facility] Monocytes Auto (Bld) [#/Vol] on 04-01-2024 Monocytes (Bld) [#/Vol] Automated blood monocyte count 0.3-0.8 [facility] Monocytes/100 WBC Auto (Bld) on 04-01-2024 Monocytes/100 WBC (Bld) Automated monocyte % 1. 7-12.0 [facility] Neutrophils Auto (Bld) [#/Vo l]on 04-01-2024 Neutrophils (Bld) [#/Vol] Neutrophils [#/volume] in Blood by Automated count 1.4-6.5 [facility] Neutrophils/100 WBC Auto (Bl d)on 04-01-2024 Neutrophils/100 WBC (Bld) Automated neutrophil % High 43.0-75.0 [facility] No Panel Informationon 04-01 Eosinophils # (Auto) 0.2 10 3/uL 0.0-0.7 [facility] Immature Granulocyte # (Auto) 0.02 10 3/uL 0.00-0.03 [facility] Prostate Specific Antigen Screen 5.63 ng/mL High <=4.00 [facility] Urine Random Creatinine 103.93 mg/dL 20.0 0-300.0 0 [facility] Platelet mean volume Auto (B ld) [Entitic vol]on 04-01-2024 Platelet mean volume (Bld) [Entitic vol] Platelet mean volume [Entitic volume] in Blood by Automated count Low 9.5-13.5 [facility] Platelets Auto (Bld) [#/Vol] on 04-01-2024 Platelets (Bld) [#/Vol] Platelets [#/vol ume] in Blood by Automated count Low 150-450 [facility] RBC Auto (Bld) [#/Vol]on RBC (Bld) [#/Vol] Erythrocytes [#/volu me] in Blood by Automated count Low 4.70-6.10 [facility] Serum or plasma albumin/glob ulin mass ratioon 04-01-2024 Albumin/Globulin [Mass ratio] Serum or plasma albumin/globulin mass ratio [facility] Serum or plasma anion gap de terminationon 04-01-2024 Anion gap [Moles/Vol] Serum or plasma an ion gap determination [facility] Serum or plasma total choles terol/high density lipoprotein (HDL) cholesterol mass tawanna 04-01-2024 Cholesterol.total/Bertha sterol in HDL [Mass ratio] Serum or plasma total cholesterol/high density lipoprotein (HDL) cholesterol mass rat [facility] Comment on above: 3.3 - 4.4 LOW RISK4. 4 - 7.1 AVERAGE RISK7.1 - 11.0 MODERATE RISK>11.0 HIGH RISK Urine protein/creatinine rat ioon 04-01-2024 Protein/Creatinine (U) [Ratio] Urine protein/creatinine ratio [facility] No Panel Informationon 03-21 [facility] Glucose mean value [Mass/vol ume] in Blood Estimated from glycated hemoglobinon 12-19-2023 Average glucose Estimated from glycated hemoglobin (Bld) [Mass/Vol] 169 mg/dL [facility] Laboratory - Hematology and Cell countson 12-19-2023 HbA1c (Bld) [Mass fraction] 7.5 % High 4.5-6.2 [facility] Comment on above: ADA RECOMMENDED LIMI T 4.0 - 6.0ADA THERAPEUTIC TARGET < 7.0ACTION SUGGESTED> 7.0 Glucose Glucometer (BldC) [M ass/Vol]Ordered By: Gerry Nelson on 08-28-2023 Glucose [Mass/Vol] 101 mg/dL [facility] Comment on above: Random Glucose Refer ence Range is dependent on time and content of last meal. Glucose of more than 200 mg/dL in a nonstressed, ambulatory subject supports the diagnosis of Diabetes Mellitus. Glucose Poct Glucometerson 0 08-28-2023 Glucose [Mass/Vol] 101 mg/dL Normal [facility] Comment on above: Result Comment: [place] Glucose Reference Range is dependent on time and content of last meal. Glucose of more than 200 mg/dL in a nonstressed, ambulatory subject supports the diagnosis of Diabetes Mellitus. PERFORMED BY: [facility] [address] [place] [address] PATHOLOGIST DIELECTRIC PRESS OPERATOR AMANDA ZAMORA M.D. Performed By: #### G LULS #### Point of Care testing , Commemt1 Glu2: Cleaned Meter Normal [facility] Comment on above: Result Comment: PERF ORMED BY: [facility] [place] [address] PATHOLOGIST DIELECTRIC PRESS OPERATOR AMANDA ZAMORA M.D. Performed By: #### G LULS #### Point of Care testing , Glucose [Mass/Vol] 147 mg/dL Normal [facility] Comment on above: Result Comment: [facility] Glucose Reference Range is dependent on time and content of last meal. Glucose of more than 200 mg/dL in a nonstressed, ambulatory subject supports the diagnosis of Diabetes Mellitus. Performed By: #### G LULS #### Point of Care testing , Von 08-28-2023 L Specimen: Received: 08/28/23 Status: MANJIT Caballero Num: [id number] Spec Type: Surgical Subm Dr: Gerry Nelson DO Tissues: A Skin-Other than Cyst, tag, debridement or plastic repair (SCALP) Procedures: HE/7, Gross/Micro L4, Frozen Section, Froz Sec, Add/4, FS HE/10 Age/ Patient Sex Location Account Attending Physician Eugenio Crews 78/M OR [id number] Gerry Nelson DO SPEC NUM: [id number] RECD: 08/28/23 STATUS: MANJIT CABALLERO NUM: [id number] ANJALI: 08/28/[address]: Gerry Nelson DO ENTERED: 08/28/[address] [facility] DR: SPEC TYPE: Surgical DEPT: S ORDERED: [...] A2 - Frozen section remnant?FSA 2 Specimen: [id number] Received: 08/28/23 Status: MANJIT Caballero Num: [id number] Spec Type: Surgical Subm Dr: Gerry Nelson DO Tissues: A Skin-Other than Cyst, tag, debridement or plastic repair (SCALP) Procedures: , Gross/Micro L4, Frozen Section, Lu Moul[place], Add/4, FS Patient: Eugenio Crews [id number] (Continued) Specimen: [id number] Received: 08/28/23 (Continued) Gross Description (Continued) Signed (signature on file) Mel Proctor MD 08/29/23 1356 Specimen: Received: 08/28/23 Status: MANJIT Caballero Num: [id number] Spec Type: Surgical Subm Dr: Gerry Nelson DO Tissues: A Skin-Other than Cyst, tag, debridement or plastic repair (SCALP) Procedures: HE/7, Gross/Micro L4, Frozen Section, Lu Moul[place], Add/4, FS Patient: Eugenio Crews [id number] (Continued) Specimen: [id number] Received: 08/28/23 (Continued) Gross Description (Continued) A3 - Frozen section remnant?FSA 3 A4 - Frozen section remnant?FSA 4 A5 - Frozen section remnant?FSA 5 A6 - 12:00 half of specimen A7 - 6:00 half of specimen Intraoperative Diagnosis A. Recurrent squamous cell carcinoma of scalp: - Margins are negative for malignancy. Reported by Dr. Proctor at 2:05 PM 08/28/2023 CPT Codes 51750, [id number], [id number] Specimen: [id number] Received: 08/28/23 Status: MANJIT Caballero Num: [id number] Spec Type: Surgical Subm Dr: Gerry Nelson DO Tissues: A Skin-Other than Cyst, tag, debridement or plastic repair (SCALP) Procedures: HE/, Gross/Micro L4, Frozen Section, Lu Moulton, Add/, FS Patient: Eugenio Crews [id number] (Continued) Signed (signature on file)___ (more content not included)... Normal [facility] No Panel InformationOrdered By: Gerry Nelson on 08-28-2023 Bedside Glucose Comment Glu2: cleaned meter [facility] Basic Metabolic Panelon 08-03 Anion gap [Moles/Vol] 12.7 mmol/L Normal 6.0-15.0 [facility] Comment on above: Performed By: #### B MP, CBC #### [facility] [address] [place] [address] [place] Calcium [Mass/Vol] 8.7 mg/dL Normal 8.6-10.3 [facility] Comment on above: Result Comment: PERF ORMED BY: [facility] [address] [facility] [place] [address] PATHOLOGIST DIELECTRIC PRESS OPERATOR AMANDA ZAMORA M.D. Performed By: #### B MP, CBC #### [facility] [address] [place] [address] [place] Chloride [Moles/Vol] 109 mmol/L High 98-107 [facility] Comment on above: Performed By: #### B MP, CBC #### [facility] [address] [place] [address] [place] CO2 [Moles/Vol] 22.0 mmol/L Normal 21.0-31.0 [facility] Comment on above: Performed By: #### B MP, CBC #### [facility] [address] [place] [address] [place] Creatinine [Mass/Vol] 2.90 mg/dL High 0.70-1.30 [facility] Comment on above: Performed By: #### B MP, CBC #### [facility] [address] [place] [address] [place] GFR/1.73 sq M.predicted MDRD (S/P/Bld) [Vol rate/Area] 21.738 mL/min/{1.73_m2} Normal [facility] Comment on above: Performed By: #### B MP, CBC #### [facility] [address] Glucose [Mass/Vol] 227 mg/dL High 70-100 [facility] Comment on above: Result Comment: [place] Glucose Reference Range is dependent on time and content of last meal. Glucose of more than 200 mg/dL in a nonstressed, ambulatory subject supports the diagnosis of Diabetes Mellitus. ADA recommended reference range Performed By: #### B MP, CBC #### [facility] [address] Potassium [Moles/Vol] 4.7 mmol/L Normal 3.5-5.1 [facility] Comment on above: Performed By: #### B MP, CBC #### [facility] [address] [place] [address] [place] Sodium [Moles/Vol] 139 mmol/L Normal 136-145 [facility] Comment on above: Performed By: #### B MP, CBC #### [facility] [address] [place] [address] [place] Urea nitrogen [Mass/Vol] 43 mg/dL High 7-25 [facility] Comment on above: Performed By: #### B MP, CBC #### [facility] [address] [place] [address] [place] Basophils Auto (Bld) [#/Vol] Ordered By: Gerry Nelson on 08-22-2023 Basophils (Bld) [#/Vol] 0.0 10*3/uL 0.0-0.2 [facility] Basophils/100 WBC Auto (Bld) Ordered By: Gerry Nelson on 08-22-2023 Basophils/100 WBC (Bld) 0.4 % . [facility] Calcium [Mass/volume] in Ser um or PlasmaOrdered By: Gerry Nelson on 08-22-2023 Calcium [Mass/Vol] 8.7 mg/dL 8.6-10.3 [facility] Carbon dioxide, total [Moles /volume] in Serum or PlasmaOrdered By: Gerry Nelson on 08-22-2023 CO2 [Moles/Vol] 22.0 mmol/L 21.0-31.0 [facility] Chloride [Moles/volume] in S hai or PlasmaOrdered By: Gerry Nelson on 08-22-2023 Chloride [Moles/Vol] 109 mmol/L 98-107 [facility] Complete Blood Count Auto Di ffon 08-22-2023 Basophils (Bld) [#/Vol] 0.0 10*3/uL Normal 0.0-0.2 [facility] Comment on above: Result Comment: PERF ORMED BY: [place] [address] PATHOLOGIST DIELECTRIC PRESS OPERATOR AMANDA ZAMORA M.D. Performed By: #### B MP, CBC #### [address] Basophils/100 WBC (Bld) 0.4 % Normal . [facility] Comment on above: Performed By: #### B MP, CBC #### [facility] [address] [place] [address] [place] Eosinophils (Bld) [#/Vol] 0.1 10*3/uL Normal 0.0-0.45 [facility] Comment on above: Performed By: #### B MP, CBC #### [facility] [address] [place] [address] [place] Eosinophils/100 WBC (Bld) 2.4 % Normal . [facility] Comment on above: Performed By: #### B MP, CBC #### [facility] [address] [place] [address] [place] Erythrocyte distribution width (RBC) [Ratio] 12.7 % Normal 12.0-14.8 [facility] Comment on above: Performed By: #### B MP, CBC #### [address] Hematocrit (Bld) [Volume fraction] 33.6 % Low 38.8-50.0 [facility] Comment on above: Performed By: #### B MP, CBC #### [address] Hemoglobin (Bld) [Mass/Vol] 11.4 g/dL Low 13.0-17.0 [facility] Comment on above: Performed By: #### B MP, CBC #### [address] Lymphocytes (Bld) [#/Vol] 0.9 10*3/uL Low 1.00-4.8 [facility] Comment on above: Performed By: #### B MP, CBC #### [address] Lymphocytes/100 WBC (Bld) 14.3 % Normal . [facility] Comment on above: Performed By: #### B MP, CBC #### [address] MCH (RBC) [Entitic mass] 32.7 pg Normal 27.5-35.2 [facility] Comment on above: Performed By: #### B MP, CBC #### [address] MCV (RBC) [Entitic vol] 96.1 fL Normal 83.5-101 [facility] Comment on above: Performed By: #### B MP, CBC #### [address] Mean Corpuscular HGB Conc 34.0 g/dL Normal 32.5-35.6 [facility] Comment on above: Performed By: #### B MP, CBC #### [address] Monocytes (Bld) [#/Vol] 0.5 10*3/uL Normal 0.0-0.8 [facility] Comment on above: Performed By: #### B MP, CBC #### [facility] [address] Monocytes/100 WBC (Bld) 7.4 % Normal . [facility] Comment on above: Performed By: #### B MP, CBC #### [address] Neutrophils (Bld) [#/Vol] 4.7 10*3/uL Normal 1.8-7.7 [facility] Comment on above: Performed By: #### B MP, CBC #### [address] Neutrophils/100 WBC (Bld) 75.5 % Normal . [facility] Comment on above: Performed By: #### B MP, CBC #### [address] NRBC% 0.0 /100{WBC} Normal 0-0.5 [facility] Comment on above: Performed By: #### B MP, CBC #### [address] Platelet mean volume (Bld) [Entitic vol] 7.2 fL Normal 6.6-10.1 [facility] Comment on above: Performed By: #### B MP, CBC #### [place] [address] [place] Platelets (Bld) [#/Vol] 165 10*3/uL Normal 150-450 [facility] Comment on above: Performed By: #### B MP, CBC #### [place] [address] [place] RBC (Bld) [#/Vol] 3.50 10*6/uL Low 3.90-5.60 [facility] Comment on above: Performed By: #### B MP, CBC #### [place] [address] [place] WBC (Bld) [#/Vol] 6.2 10*3/uL Normal 4.1-10.5 [facility] Comment on above: Performed By: #### B MP, CBC #### [address] Creatinine [Mass/volume] in Serum or PlasmaOrdered By: Gerry Nelson on 08-22-2023 Creatinine [Mass/Vol] 2.90 mg/dL 0.70-1.30 [facility] ECG 12 lead ECGon 08-22-2023 ECG 12 lead ECG [facility] [place] [address] [place] [address] Electrocardiograph Report Signed Patient: Eugenio Crews MR#: [id number] : 1945 Acct:[id number] Age/Sex: 78 / M ADM Date: 08/22/23 Loc: Room: Type: [facility] Attending Dr: Gerry Nelson DO Ordering [...] previous ECGs available Confirmed by Joni Marrero ([id number]) on 08/23/2023 11:21:57 AM Referred By: LESLIE Electronically Signed By:Joni Marrero Transcribed By: MUS Signed By Joni Marrero MD 08/23/23 1122 Normal [facility] Eosinophils Auto (Bld) [#/Vo l]Ordered By: Gerry Nelson on 08-22-2023 Eosinophils (Bld) [#/Vol] 0.1 10*3/uL 0.0-0.45 [facility] Eosinophils/100 WBC Auto (Bl d)Ordered By: Gerry Nelson on 08-22-2023 Eosinophils/100 WBC (Bld) 2.4 % . [facility] Erythrocyte distribution wid th Auto (RBC) [Ratio]Ordered By: Gerry Nelson on 08-22-2023 Erythrocyte distribution width (RBC) [Ratio] 12.7 % 12.0-14.8 [facility] Glucose [Mass/volume] in Ser um or PlasmaOrdered By: Gerry Nelson on 08-22-2023 Glucose [Mass/Vol] 227 mg/dL 70-100 [facility] Comment on above: ADA recommended refe rence rangeRandom Glucose Reference Range is dependent on time and content of last meal. Glucose of more than 200 mg/dL in a nonstressed, ambulatory subject supports the diagnosis of Diabetes Mellitus. Hematocrit Auto (Bld) [Volum e fraction]Ordered By: Gerry Nelson on 08-22-2023 Hematocrit (Bld) [Volume fraction] 33.6 % 38.8-50.0 [facility] Hemoglobin [Mass/volume] in BloodOrdered By: Gerry Nelson on 08-22-2023 Hemoglobin (Bld) [Mass/Vol] 11.4 g/dL 13.0-17.0 [facility] Leukocytes [#/volume] correc yoseph for nucleated erythrocytes in Blood by Automated counOrdered By: Gerry Nelson on 08-22-2023 WBC corrected for nucl RBC Auto (Bld) [#/Vol] 6.2 10*3/uL 4.1-10.5 [facility] Lymphocytes Auto (Bld) [#/Vo l]Ordered By: Gerry Nelson on 08-22-2023 Lymphocytes (Bld) [#/Vol] 0.9 10*3/uL 1.00-4.8 [facility] Lymphocytes/100 WBC Auto (Bl d)Ordered By: Gerry Nelson on 08-22-2023 Lymphocytes/100 WBC (Bld) 14.3 % . [facility] MCH Auto (RBC) [Entitic mass ]Ordered By: Gerry Nelson on 08-22-2023 MCH (RBC) [Entitic mass] 32.7 pg 27.5-35.2 [facility] MCHC Auto (RBC) [Mass/Vol]Or dered By: Gerry Nleson on 08-22-2023 MCHC (RBC) [Mass/Vol] 34.0 g/dL 32.5-35.6 [facility] MCV Auto (RBC) [Entitic vol] Ordered By: Gerry Nelson on 08-22-2023 MCV (RBC) [Entitic vol] 96.1 fL 83.5-101 [facility] Monocytes Auto (Bld) [#/Vol] Ordered By: Gerry Nelson on 08-22-2023 Monocytes (Bld) [#/Vol] 0.5 10*3/uL 0.0-0.8 [facility] Monocytes/100 WBC Auto (Bld) Ordered By: Gerry Nelson on 08-22-2023 Monocytes/100 WBC (Bld) 7.4 % . [facility] Neutrophils Auto (Bld) [#/Vo l]Ordered By: Gerry Nelson on 08-22-2023 Neutrophils (Bld) [#/Vol] 4.7 10*3/uL 1.8-7.7 [facility] Neutrophils/100 WBC Auto (Bl d)Ordered By: Gerry Nelson on 08-22-2023 Neutrophils/100 WBC (Bld) 75.5 % . [facility] No Panel InformationOrdered By: Gerry Nelson on 08-22-2023 Estimated GFR (CKD-EPI) 21.738 mL/Min [facility] Creatinine Clearance (Chem N/A [facility] Nucleated erythrocytes [Pres ence] in Blood by Automated countOrdered By: Gerry Nelson on 08-22-2023 Nucleated RBC Auto Ql (Bld) 0.0 /100{WBC} 0-0.5 [facility] Platelet mean volume Auto (B ld) [Entitic vol]Ordered By: Gerry Nelson on 08-22-2023 Platelet mean volume (Bld) [Entitic vol] 7.2 fL 6.6-10.1 [facility] Platelets Auto (Bld) [#/Vol] Ordered By: Gerry Nelson on 08-22-2023 Platelets (Bld) [#/Vol] 165 10*3/uL 150-450 [facility] Potassium [Moles/volume] in Serum or PlasmaOrdered By: Gerry Nelson on 08-22-2023 Potassium [Moles/Vol] 4.7 mmol/L 3.5-5.1 [facility] RBC Auto (Bld) [#/Vol]Ordere d By: Gerry Nelson on 08-22-2023 RBC (Bld) [#/Vol] 3.50 10*6/uL 3.90-5.60 [facility] Serum or plasma anion gap de terminationOrdered By: Gerry Nelson on 08-22-2023 Anion gap [Moles/Vol] 12.7 mmol/L 6.0-15.0 [facility] Sodium [Moles/volume] in Ser um or PlasmaOrdered By: Gerry Nelson on 08-22-2023 Sodium [Moles/Vol] 139 mmol/L 136-145 [facility] Urea nitrogen [Mass/volume] in Serum or PlasmaOrdered By: Gerry Nelson on 08-22-2023 Urea nitrogen [Mass/Vol] 43 mg/dL 7-25 [facility] WBC Auto (Bld) [#/Vol]Ordere d By: Gerry Nelson on 08-22-2023 WBC (Bld) [#/Vol] 6.2 10*3/uL 4.1-10.5 [facility] Glucose mean value [Mass/vol ume] in Blood Estimated from glycated hemoglobinon 08-06-2023 Average glucose Estimated from glycated hemoglobin (Bld) [Mass/Vol] 163 mg/dL [facility] Laboratory - Hematology and Cell countson 08-06-2023 HbA1c (Bld) [Mass fraction] 7.3 % 4.5-6.2 [facility] Comment on above: ADA RECOMMENDED LIMI T 4.0 - 6.0ADA THERAPEUTIC TARGET < 7.0ACTION SUGGESTED> 7.0 CBC AUTO DIFFon 04-05-2022 BASO # 0.0 103/ul Normal 0.0-0.1 [facility] Comment on above: Performed By: #### C BC #### [facility] [address] [place] [address] [address] Dave Duffy Basophils/100 WBC (Bld) 0.2 % Normal 0.2-2.0 [facility] Comment on above: Performed By: #### C BC #### [facility] [address] [place] [address] Dr. Dave Duffy EO # 0.2 103/ul Normal 0.0-0.7 [facility] Comment on above: Performed By: #### C BC #### [facility] [address] [place] [address] Dr. Dave Duffy Eosinophils/100 WBC (Bld) 2.5 % Normal 0.9-7.0 [facility] Comment on above: Performed By: #### C BC #### [facility] [address] [place] [address] Dr. Dave Duffy Erythrocyte distribution width (RBC) [Ratio] 12.3 % Normal 11.0-15.0 [facility] Comment on above: Performed By: #### C BC #### [facility] [address] [place] [address] Dr. Dave Duffy Hematocrit (Bld) [Volume fraction] 32.8 % Critically low 42.0-54.0 [facility] Comment on above: Performed By: #### C BC #### [facility] [address] [place] [address] Dr. Dave Duffy Hemoglobin (Bld) [Mass/Vol] 11.4 g/dL Critically low 14.0-18.0 [facility] Comment on above: Performed By: #### C BC #### [facility] [address] [place] [address] Dr. Dave Duffy IG # 0.03 10e3/ul Normal 0.00-0.03 [facility] Comment on above: Performed By: #### C BC #### [facility] [address] [place] [address] Dr. Dave Duffy IG % 0.5 % Normal 0.0-0.5 [facility] Comment on above: Performed By: #### C BC #### [facility] [address] [place] [address] Dr. Dave Duffy LYMPH # 1.2 103/ul Normal 1.2-3.8 [facility] Comment on above: Performed By: #### C BC #### [facility] [address] [place] [address] Dr. Dave Duffy Lymphocytes/100 WBC (Bld) 18.9 % Critically low 20.5-60.0 [facility] Comment on above: Performed By: #### C BC #### [facility] [address] [place] [address] Dr. Dave Duffy MANUAL DIFF REQ NO Normal [facility] Comment on above: Performed By: #### C BC #### [facility] [address] [place] [address] Dr. Dave Duffy MCH (RBC) [Entitic mass] 32.8 pg Normal 25.9-34.0 [facility] Comment on above: Performed By: #### C BC #### [facility] [address] [place] [address] Dr. Dave Duffy MCHC (RBC) [Mass/Vol] 34.8 g/dL Normal 29.9-35.2 [facility] Comment on above: Performed By: #### C BC #### [facility] [address] [place] [address] Dr. Dave Duffy MCV (RBC) [Entitic vol] 94.3 fL Critically high 80.0-94 .0 [facility] Comment on above: Performed By: #### C BC #### [facility] [address] [place] [address] Dr. Dave Duffy MONO # 0.5 103/ul Normal 0.3-0.8 [facility] Comment on above: Performed By: #### C BC #### [facility] [address] [place] [address] Dr. Dave Duffy Monocytes/100 WBC (Bld) 8.9 % Normal 1.7-12.0 [facility] Comment on above: Performed By: #### C BC #### [facility] [address] [place] [address] Dr. Dave Duffy NEUT # 4.2 103/ul Normal 1.4-6.5 [facility] Comment on above: Performed By: #### C BC #### [facility] [address] [address] [address] Dave Duffy Neutrophils/100 WBC (Bld) 69.0 % Normal 43.0-75.0 [facility] Comment on above: Performed By: #### C BC #### [facility] [address] [address] [address] Dave Duffy Platelet mean volume (Bld) [Entitic vol] 8.7 fL Critically low 9.5-13.5 [facility] Comment on above: Performed By: #### C BC #### [facility] [address] [address] [address] Dave Duffy PLT 166 103/ul Normal 150-450 [facility] Comment on above: Performed By: #### C BC #### [facility] [address] [address] [address] Dave Duffy RBC 3.48 106/ul Critically low 4.70-6.10 [facility] Comment on above: Performed By: #### C BC #### [facility] [address] [place] [address] [address] Dave Duffy WBC 6.1 103/ul Normal 4.0-11.0 [facility] Comment on above: Performed By: #### C BC #### [facility] [address] [place] [address] Dr. Dave Duffy LIPID PROFILEon 04-05-2022 CHOL-HDL RATIO NORM SEE BELOW Normal [facility] Comment on above: Result Comment: 3.3 - 4.4 LOW RISK 4.4 - 7.1 AVERAGE RISK 7.1 - 11.0 MODERATE RISK >11.0 HIGH RISK Performed By: #### C MP, LIPID #### [facility] [address] [address] [address] Dave Duffy Cholesterol [Mass/Vol] 106 mg/dL Normal <=200 [facility] Comment on above: Performed By: #### C MP, LIPID #### [facility] [address] [address] [address] Dave Duffy Cholesterol in HDL [Mass/Vol] 36 mg/dL Critically low 40-60 [facility] Comment on above: Performed By: #### C MP, LIPID #### [facility] [address] [address] [address] Dave Duffy Cholesterol in LDL [Mass/Vol] 43.4 mg/dL Normal [facility] Comment on above: Performed By: #### C MP, LIPID #### [facility] [address] [address] [address] Dave Duffy Cholesterol.total/Bertha sterol in HDL [Mass ratio] 2.9 {ratio} Normal [facility] Comment on above: Performed By: #### C MP, LIPID #### [facility] [address] [place] [address] Dr. Dave Duffy HDL NORMAL > or = 60 mg/dl - LO W CARDIOVASCULAR RISK <40 mg/dl - HIGH CARDIOVASCULAR RISK Normal [facility] Comment on above: Performed By: #### C MP, LIPID #### [facility] [address] [place] [address] Dr. Dave Duffy LDL CALC NORMAL SEE BELOW Normal [facility] Comment on above: Result Comment: <100 mg/dl OPTIMAL 100 - 129 mg/dl NEAR OR ABOVE OPTIMAL 130 - 159 mg/dl BORDERLINE HIGH 160 - 189 mg/dl HIGH >190 mg/dl VERY HIGH Performed By: #### C MP, LIPID #### [facility] [address] [place] [address] Dr. Dave Duffy Triglyceride [Mass/Vol] 133 mg/dL Normal <=150 T [facility] Comment on above: Performed By: #### C MP, LIPID #### [facility] [address] [place] [address] Dr. Dave Duffy VLDL CALC 26.6 mg/dL Normal [facility] Comment on above: Performed By: #### C MP, LIPID #### [facility] [address] [place] [address] Dr. Dave Duffy MICROALBUMIN, RAND URon 11-0 mALB 19.6 mg/L Normal <=30.0 [facility] Comment on above: Performed By: #### M ALBR #### [facility] [address] [address] [address] Dave Duffy PROF 14(COMP METB)on 022 Albumin [Mass/Vol] 3.6 g/dL Normal 3.4-5.0 [facility] Comment on above: Performed By: #### C MP, LIPID #### [facility] [address] [place] [address] Dr. Dave Duffy Albumin/Globulin [Mass ratio] 1.2 {ratio} Normal [facility] Comment on above: Performed By: #### C MP, LIPID #### [facility] [address] [place] [address] Dr. Dave Duffy ALP [Catalytic activity/Vol] 102 U/L Normal 46-116 [facility] Comment on above: Performed By: #### C MP, LIPID #### [facility] [address] [place] [address] Dr. Dave Duffy ALT [Catalytic activity/Vol] 22 U/L Normal 16-63 [facility] Comment on above: Performed By: #### C MP, LIPID #### [facility] [address] [place] [address] Dr. Dave Duffy Anion gap [Moles/Vol] 10.8 mmol/L Normal [facility] Comment on above: Performed By: #### C MP, LIPID #### [facility] [address] [place] [address] Dr. Dave Duffy AST [Catalytic activity/Vol] 13 U/L Critically low 15-37 [facility] Comment on above: Performed By: #### C MP, LIPID #### [facility] [address] [place] [address] Dr. Dave Duffy Bilirubin [Mass/Vol] 0.5 mg/dL Normal 0.2-1.0 [facility] Comment on above: Performed By: #### C MP, LIPID #### [facility] [address] [place] [address] Dr. Dave Duffy Calcium [Mass/Vol] 8.6 mg/dL Normal 8.5-10.1 [facility] Comment on above: Performed By: #### C MP, LIPID #### [facility] [address] [address] [address] Dave Duffy Chloride [Moles/Vol] 107 mmol/L Normal 98-107 [facility] Comment on above: Performed By: #### C MP, LIPID #### [facility] [address] [address] [address] Dave Duffy CO2 [Moles/Vol] 25.7 mmol/L Normal 21.0-32.0 [facility] Comment on above: Performed By: #### C MP, LIPID #### [facility] [address] [address] [address] Dave Duffy Creatinine [Mass/Vol] 2.99 mg/dL Critically high 0.70-1.30 [facility] Comment on above: Performed By: #### C MP, LIPID #### [facility] [address] [place] [address] Dr. Dave Duffy EGFR-AF CYMRO 25 mL/min/1.73m2 Critically low >=60 [facility] Comment on above: Performed By: #### C MP, LIPID #### [facility] [address] [place] [address] Dr. Dave Duffy EGFR-NON AF CYMRO 21 mL/min/1.73m2 Critically low >=60 [facility] Comment on above: Performed By: #### C MP, LIPID #### [facility] [address] [place] [address] Dr. Dave Duffy Globulin (S) [Mass/Vol] 3.1 g/dL Normal [facility] Comment on above: Performed By: #### C MP, LIPID #### [facility] [address] [place] [address] Dr. Dave Duffy Glucose [Mass/Vol] 106 mg/dL Normal 74-106 [facility] Comment on above: Performed By: #### C MP, LIPID #### [facility] [address] [address] [address] Dave Duffy Potassium [Moles/Vol] 4.5 mmol/L Normal 3.5-5.1 [facility] Comment on above: Performed By: #### C MP, LIPID #### [facility] [address] [address] [address] Dave Duffy Protein [Mass/Vol] 6.7 g/dL Normal 6.4-8.2 [facility] Comment on above: Performed By: #### C MP, LIPID #### [facility] [address] [address] [address] Dave Duffy Sodium [Moles/Vol] 139 mmol/L Normal 136-145 [facility] Comment on above: Performed By: #### C MP, LIPID #### [facility] [address] [address] [address] Dave Duffy Urea nitrogen [Mass/Vol] 43.0 mg/dL Critically high 7.0-18.0 [facility] Comment on above: Performed By: #### C MP, LIPID #### [facility] [address] [place] [address] Dr. Dave Duffy Urea nitrogen/Creatinine [Mass ratio] 14.4 mg/mg Normal [facility] Comment on above: Performed By: #### C MP, LIPID #### [facility] [address] [place] [address] Dr. Dave Duffy XR FLUORO < 1 [...] by: ALONZO MADRIGAL Date: 2022-03-05 11:26 Normal [facility] ([employer]) EUGENIO CREWS ([id number]) 1945 M TRN Date Time Provider Department [...] Encounter Status:Closed by ROSELYN PAGE on 02/24/22 [facility] 02-23-2022 CNPN Telephone (HEMTSA) EUGENIO CREWS ([id number]) 1945 [facility] Date Time Provider Department 02/23/22 EAMON [...] Encounter Status:Closed by EAMON BISWAS on 03/02/22 [facility] EUGENIO CRE[facility] ([id number]) 1945 M TRN Date Time Provider Department [...] accessed 2 days in a row at [facility] and there was swelling above port site. Dr. Reyes thought perhaps the nurse missed as they use a smaller port at [place] which is where he had it placed. Informed that if we have swelling while patient is here, we would not proceed. verbalized understanding. PSS: please call patient/ to schedule on infusion schedule for possible 2 doses of activase. Jamia: Can you get an xray that was taken of the port at [facility] recently. ( states they did one) Aileen [...] Visit Diagnosis:Obstruction of central line, initial encounter ([facility] [...] Status:Closed by AILEEN JENKINS on 02/21/22 Normal [facility] GLYCOHEMOGLOBIN A1Con 2021 ADA RECOMMENDATION SEE BELOW Normal [facility] Comment on above: Result Comment: ADA RECOMMENDED LIMIT 4.0 - 6.0 ADA THERAPEUTIC TARGET < 7.0 ACTION SUGGESTED > 7.0 Performed By: #### D ATA1C #### [facility] [address] [place] [address] Dr. Dave Duffy Glucose [Mass/Vol] 166 mg/dL Normal [facility] Comment on above: Performed By: #### D ATA1C #### [facility] [address] [address] [address] Dave Duffy HbA1c (Bld) [Mass fraction] 7.4 % Critically high 4.5-6.2 [facility] Comment on above: Performed By: #### D ATA1C #### [facility] [address] [place], [place] [address] Dr. Dave Duffy XR CHEST 2 Von [...] by: ALONZO MADRIGAL Date: 2022-02-07 12:00 Normal [facility] POINT OF CARE GLUCOSEon 11-02 Glucose [Mass/Vol] 163 mg/dL Critically high 74-106 T [facility] Comment on above: Performed By: #### P OCGLUC #### [facility] [address] [id number] [facility] C[facility]N Telephone (HEMASA) EUGENIO CREWS ([id number]) 1945 [facility] Date Time Provider Department 04/26/21 ELIA BAL During your visit today, we recorded the following information about you: Elia Bal RN 04/26/2021 2:52 PM Signed Received call from [facility] at Dr Chang's office stating they needed to know what pt's port is being flushed with. [facility] informed pt is getting 20cc NS followed by 5cc Heparin. [facility] verbalizes understanding and denies further needs at this time. Elia Bal RN Allergies As of Date: 04/26/2021 Noted Allergy Reaction PIPERACILLIN-TAZOBACTAM 09/14/2009 2 - Rash Comments: Pt developed severe rash after zosyn initiated KETOROLAC 09/23/2020 16 - Unknown Comments: kidney killer Date Reviewed: 03/25/2021 Reviewed by: Kendall Honeycutt APRN.ENGINEERING INSPECTOR - Fully Assessed Reason for Visit: Medication Question [5845] Prescriptions as of 04/26/2021 - atorvastatin (LIPITOR) [...] Encounter Status:Closed by ELIA BAL on 04/26/21 [facility] Karissa 03-23-2021 CNOVSP Visit (SP) Office ([facility]) EUGENIO CREWS ([id number]) 1945 M TRN Date Time Provider Department 03/23/21 1:30 PM KENDALL HONEYCUTT During your visit today, we recorded the following information about you: Temperature Pulse Respiration Blood pressure 97.4 degrees 81/minute 16/minute 141/54 Weight Height 105.9 kg 1.854 m Kendall Honeycutt APRN.CNP 03/25/2021 12:42 PM Signed Patient: Eugenio Crews Location: [facility] : 1945 Attending Physician: Dr. Kings Jones [...] colonoscopy in September with Dr. Reyes in [place]. He denies fevers, chills, night sweats and [...] contact K (more content not included)... Normal [facility] Comp Metabolic Panelon 03-23 Albumin [Mass/Vol] 3.9 g/dL Normal 3.9-4.9 [facility] ALP [Catalytic activity/Vol] 126 U/L High 38-113 [facility] ALT [Catalytic activity/Vol] 13 U/L Normal 10-54 [facility] Anion gap [Moles/Vol] 7 mmol/L Low 9-18 [facility] AST [Catalytic activity/Vol] 12 U/L Low 14-40 [facility] Bilirubin [Mass/Vol] 0.3 mg/dL Normal 0.2-1.3 [facility] [place] Calcium [Mass/Vol] 8.9 mg/dL Normal 8.5-10.2 [facility] Chloride [Moles/Vol] 107 mmol/L High 97-105 [facility] [place] CO2 [Moles/Vol] 20 mmol/L Low 22-30 [facility] Creatinine [Mass/Vol] 2.54 mg/dL High 0.73-1.22 [facility] eGFR- Amer. 30 Normal [facility] eGFR-All Other Races 25 . Normal [facility] [place] Comment on above: Result Comment: eGFR (Estimated [...] GFR. Glucose [Mass/Vol] 169 mg/dL High 74-99 [facility] Comment on above: Result Comment: The Stateless Diabetes Association (ADA) provides guidance for cutoff [...] Standards of Medical Care in Diabetes 2016, Stateless Diabetes Association. Diabetes Care. 2016.39(Suppl 1). Potassium [Moles/Vol] 4.7 mmol/L Normal 3.7-5.1 [facility] Protein [Mass/Vol] 6.2 g/dL Low 6.3-8.0 [facility] Sodium [Moles/Vol] 134 mmol/L Low 136-144 [facility] Urea nitrogen [Mass/Vol] 29 mg/dL High 9-24 [facility] EPOon 03-23-2021 EPO 18.4 mIU/mL Normal 2.6-18.5 [facility] Comment on above: Result Comment: Test analyzed by the Berny DxI method. Performed By: #### E PO #### [facility] [address] [phone] Fecal Occult Bld Tston 03-23 Immuno FOB Negative Normal Negative [facility] Comment on above: Result Comment: This test was developed and its performance characteristics determined by [facility]'s [facility] ( [facility]). It has not been cleared or approved by the FDA. [facility] is regulated under CLIA as qualified to perform high complexity testing. This test is used for clinical purposes. It should not be regarded as investigational or for research. Performed By: #### I FOBT #### [facility] [address] [place], [place] [address] [phone] Ferritinon 03-23-2021 Ferritin [Mass/Vol] 294.0 ng/mL Normal 30.3-565.7 [facility] [place] Comment on above: Performed By: #### E PO #### [facility] [address] [place], [place] [address] Folate, Serumon 03-23-2021 Folate [Mass/Vol] 6.6 ng/mL Normal >4.7 [facility] Comment on above: Performed By: #### E PO #### [facility] [address] [place], [place] [address] Iron and TIBCon 03-23-2021 Iron [Mass/Vol] 70 ug/dL Normal 41-186 [facility] Comment on above: Performed By: #### E PO #### [facility] [address] [place], [place] [address] TIBC 223 ug/dL Low 232-386 [facility] Comment on above: Performed By: #### E PO #### [facility] [address] [place], [place] [address] Transferrin Saturatn 31 % Normal 15-57 [facility] [place] Comment on above: Performed By: #### E PO #### [facility] [address] [place], [place] [address] LDon 03-23-2021 LD 192 U/L Normal 135-225 [facility] Comment on above: Performed By: #### E PO #### [facility] [address] [place], [place] [address] Protein Electrophor.on 03-23 Albumin [Mass/Vol] 3.24 g/dL Low 3.37-4.23 [facility] Comment on above: Performed By: #### F ERR, B12, SEPG, IRON, TSH, TRANSF, SERFOL ####[facility] [place], [place] [phone] Alpha 1 Globulin 0.28 gm/dL Normal 0.18-0.31 [facility] Comment on above: Performed By: #### F ERR, B12, SEPG, IRON, TSH, TRANSF, SERFOL ####[address] [address] [address] [place] [phone] Alpha 2 Globulin 0.75 gm/dL Normal 0.52-0.97 [facility] Comment on above: Performed By: #### F ERR, B12, SEPG, IRON, TSH, TRANSF, SERFOL ####[address] [address] [address] [address] Beta Globulin 0.78 gm/dL Low 0.84-1.36 [facility] Comment on above: Performed By: #### F ERR, B12, SEPG, IRON, TSH, TRANSF, SERFOL ####[address] [address] Gamma Globulin 0.65 gm/dL Low 0.70-1.44 [facility] Comment on above: Performed By: #### F ERR, B12, SEPG, IRON, TSH, TRANSF, SERFOL ####[address] [address] Interpretation SEE COMMENT Normal [facility] Comment on above: Result Comment: No d efinitive M protein is identified on protein electrophoresis. Hypogammaglobulinemia is present, which can be seen in the setting of monoclonal gammopathy. If clinically indicated, monoclonal protein analysis and serum free light chain analysis are suggested to evaluate further for monoclonal gammopathy. Performed By: #### F ERR, B12, SEPG, IRON, TSH, TRANSF, SERFOL ####[address] [address] M Protein Location N/A Normal [facility] Comment on above: Performed By: #### F ERR, B12, SEPG, IRON, TSH, TRANSF, SERFOL ####[id number] [place], [place] [phone] M Petar Concentratn 0.00 gm/dL Normal 0.00 [facility] Comment on above: Performed By: #### F ERR, B12, SEPG, IRON, TSH, TRANSF, SERFOL ####[id number] [place], [place] [phone] Protein [Mass/Vol] 5.7 g/dL Low 6.3-8.0 [facility] Comment on above: Performed By: #### F ERR, B12, SEPG, IRON, TSH, TRANSF, SERFOL ####[address] [phone] SPE Staff Review Reviewed by Enrrique Chowdhury M.D., PhD ([id number]) Normal [facility] Comment on above: Performed By: #### F ERR, B12, SEPG, IRON, TSH, TRANSF, SERFOL ####[address] [phone] Remote CBCDIF (for [facility] use o nly)on 03-23-2021 Abs Baso <0.03 Normal <0.11 [facility] Abs Izard 0.37 k/uL Normal <0.87 [facility] Abs Neut 3.53 k/uL Normal 1.45-7.50 [facility] Absolute nRBC <0.01 Normal <0.01 [facility] Basophils/100 WBC (Bld) 0.4 % Normal [facility] DTYPE Auto Diff Normal [facility] Eosinophils (Bld) [#/Vol] 0.09 10*3/uL Normal <0.46 [facility] Eosinophils/100 WBC (Bld) 1.7 % Normal [facility] Erythrocyte distribution width (RBC) [Ratio] 13.4 % Normal 11.5-15.0 [facility] Hematocrit (Bld) [Volume fraction] 29.3 % Low 39.0-51.0 [facility] Hemoglobin (Bld) [Mass/Vol] 10.0 g/dL Low 13.0-17.0 [facility] Lymphocytes (Bld) [#/Vol] 1.17 10*3/uL Normal 1.00-4.00 [facility] Lymphocytes/100 WBC (Bld) 22.5 % Normal [facility] MCH 31.7 pG Normal 26.0-34.0 [facility] MCHC (RBC) [Mass/Vol] 34.1 g/dL Normal 30.5-36.0 [facility] MCV (RBC) [Entitic vol] 93.0 fL Normal 80.0-100.0 [facility] Monocytes/100 WBC (Bld) 7.1 % Normal [facility] Neutrophils/100 WBC (Bld) 68.3 % Normal [facility] NRBCs 0.0 /100 WBC Normal 0 [facility] Platelet mean volume (Bld) [Entitic vol] 8.5 fL Low 9.0-12.7 [facility] Platelets (Bld) [#/Vol] 162 10*3/uL Normal 150-400 [facility] RBC (Bld) [#/Vol] 3.15 10*6/uL Low 4.20-6.00 [facility] WBC (Bld) [#/Vol] 5.20 10*3/uL Normal 3.70-11.00 [facility] Reticulocyteon 03-23-2021 Abs Retic 0.044 M/uL Normal 0.0180-0.10 00 [facility] Comment on above: Performed By: #### E PO #### [facility] [address] [place], [place] [address] Retic% 1.4 % Normal 0.4-2.0 [facility] Comment on above: Performed By: #### E PO #### [facility] [address] [place], [place] [address] TSHon 03-23-2021 TSH Qn 2.350 m[IU]/L Normal 0.270-4.200 [facility] Comment on above: Performed By: #### E PO #### [facility] [employer] [place], [place] [address] Transferrinon 03-23-2021 Transferrin [Mass/Vol] 181 mg/dL Low 200-360 [facility] Comment on above: Performed By: #### E PO #### [facility] [address] [place], [place] [address] Vitamin B12on 03-23-2021 Cobalamin (Vitamin B12) [Mass/Vol] 654 pg/mL Normal 232-1245 [facility] Comment on above: Performed By: #### E PO #### [facility] [address] [place], [place] [address] Vital Signs Date Time Vital Sign Value Performing Clinician Facility 10-16-2024 08:23-0400 Diastolic blood pressure 80 mm[Hg] AILEEN MELISSA [facility] 10-16-2024 08:23-0400 Mean blood pressure 101 mm[Hg] AILEEN MELISSA [facility] 10-16-2024 08:23-0400 Systolic blood pressure 142 mm[Hg] AILEEN MELISSA [facility] 10-16-2024 08:10-0400 Blood Pressure Location AILEEN MELISSA [facility] 10-16-2024 08:10-0400 Body temperature 98.06 [degF] AILEEN MELISSA [facility] 10-16-2024 08:10-0400 Diastolic blood pressure 86 mm[Hg] AILEEN MELISSA [facility] 10-16-2024 08:10-0400 Heart rate 74 /min AILEEN MELISSA [facility] 10-16-2024 08:10-0400 Respiratory rate 16 /min AILEEN TORRES [facility] 10-16-2024 08:10-0400 Systolic blood pressure 152 mm[Hg] AILEEN TORRES [facility] 07-30-2024 08:30-0500 Body height 187.96 cm [facility] 07-30-2024 08:30-0500 Body mass index (BMI) [Ratio] 29.1 kg/m2 [facility] 07-30-2024 08:30-0500 Body weight 102.96 kg [facility] 07-30-2024 08:30-0500 Diastolic blood pressure 89 mm[Hg] [facility] 07-30-2024 08:30-0500 Heart rate 78 /min [facility] 07-30-2024 08:30-0500 Respiratory rate 12 /min [facility] 07-30-2024 08:30-0500 Systolic blood pressure 139 mm[Hg] [facility] 07-21-2024 14:37-0500 Body height 187.96 cm [facility] 07-21-2024 14:37-0500 Body mass index (BMI) [Ratio] 29.4 kg/m2 [facility] 07-21-2024 14:37-0500 Body weight 103.87 kg [facility] 07-21-2024 14:37-0500 Diastolic blood pressure 87 mm[Hg] [facility] 07-21-2024 14:37-0500 Heart rate 76 /min [facility] 07-21-2024 14:37-0500 Respiratory rate 16 /min [facility] 07-21-2024 14:37-0500 SaO2% (BldA) [Mass fraction] 98 % [facility] 07-21-2024 14:37-0500 Systolic blood pressure 138 mm[Hg] [facility] 05-05-2024 14:43-0500 Body height 182.88 cm [facility] 05-05-2024 14:43-0500 Body mass index (BMI) [Ratio] 30.4 kg/m2 [facility] 05-05-2024 14:43-0500 Body temperature 97.7 [degF] [facility] 05-05-2024 14:43-0500 Body weight 101.6 kg [facility] 05-05-2024 14:43-0500 Diastolic blood pressure 82 mm[Hg] [facility] 05-05-2024 14:43-0500 Heart rate 83 /min [facility] 05-05-2024 14:43-0500 Respiratory rate 16 /min [facility] 05-05-2024 14:43-0500 SaO2% (BldA) [Mass fraction] 100 % [facility] 05-05-2024 14:43-0500 Systolic blood pressure 126 mm[Hg] [facility] 04-14-2024 11:48-0500 Blood Pressure Location Jenaro HANSEN [facility] 04-14-2024 11:48-0500 Diastolic blood pressure 86 mm[Hg] Jenaro HANSEN [facility] 04-14-2024 11:48-0500 Heart rate 86 /min Jenaro HANSEN [facility] 04-14-2024 11:48-0500 Respiratory rate 16 /min Jenaro HANSEN [facility] 04-14-2024 11:48-0500 Systolic blood pressure 149 mm[Hg] Jenaro HANSEN [facility] 03-31-2024 08:30-0400 Body height 182.88 cm [facility] 03-31-2024 08:30-0400 Body mass index (BMI) [Ratio] 30.4 kg/m2 [facility] 03-31-2024 08:30-0400 Body weight 101.66 kg [facility] 03-31-2024 08:30-0400 Diastolic blood pressure 81 mm[Hg] [facility] 03-31-2024 08:30-0400 Heart rate 80 /min [facility] 03-31-2024 08:30-0400 Respiratory rate 12 /min [facility] 03-31-2024 08:30-0400 Systolic blood pressure 140 mm[Hg] [facility] 11-28-2023 08:37-0400 Body height 182.88 cm [facility] 11-28-2023 08:37-0400 Body mass index (BMI) [Ratio] 29.6 kg/m2 [facility] 11-28-2023 08:37-0400 Body weight 99.05 kg [facility] 11-28-2023 08:37-0400 Diastolic blood pressure 80 mm[Hg] [facility] 11-28-2023 08:37-0400 Heart rate 75 /min [facility] 11-28-2023 08:37-0400 Respiratory rate 12 /min [facility] 11-28-2023 08:37-0400 Systolic blood pressure 139 mm[Hg] [facility] 11-02-2023 11:53-0400 Body height 182.88 cm [facility] 11-02-2023 11:53-0400 Body mass index (BMI) [Ratio] 31.1 kg/m2 [facility] 11-02-2023 11:53-0400 Body weight 104.01 kg [facility] 11-02-2023 11:53-0400 Diastolic blood pressure 74 mm[Hg] [facility] 11-02-2023 11:53-0400 Heart rate 60 /min [facility] 11-02-2023 11:53-0400 Respiratory rate 12 /min [facility] 11-02-2023 11:53-0400 Systolic blood pressure 110 mm[Hg] [facility] 08-28-2023 15:35-0400 Diastolic blood pressure 63 mm[Hg] DO Gerry Ball Work Phone: [facility] 08-28-2023 15:35-0400 Heart rate 61 /min DO Gerry Ball Work Phone: [facility] 08-28-2023 15:35-0400 Respiratory rate 14 /min DO Gerry Ball Work Phone: [facility] 08-28-2023 15:35-0400 SaO2% (BldA) [Mass fraction] 97 % DO Gerry Ball Work Phone: [facility] 08-28-2023 15:35-0400 Systolic blood pressure 102 mm[Hg] DO Gerry Ball Work Phone: [facility] 08-28-2023 14:48-0400 Body temperature 98 [degF] DO Gerry Ball Work Phone: [facility] 08-28-2023 14:23-0400 Inhaled oxygen flow rate 8 L/min DO Gerry Ball Work Phone: [facility] 08-28-2023 13:02-0400 Body mass index (BMI) [Ratio] 30.4 kg/m2 DO Gerry Ball Work Phone: [facility] 08-28-2023 12:21-0400 Body height 187.96 cm DO Gerry Ball Work Phone: [facility] 08-28-2023 12:21-0400 Body weight 107.5 kg DO Gerry Ball Work Phone: [facility] 07-30-2023 08:30-0500 Body height 185.42 cm [facility] 07-30-2023 08:30-0500 Body mass index (BMI) [Ratio] 31.6 kg/m2 [facility] 07-30-2023 08:30-0500 Body weight 108.86 kg [facility] 07-30-2023 08:30-0500 Diastolic blood pressure 75 mm[Hg] [facility] 07-30-2023 08:30-0500 Heart rate 80 /min [facility] 07-30-2023 08:30-0500 Respiratory rate 16 /min [facility] 07-30-2023 08:30-0500 Systolic blood pressure 157 mm[Hg] [facility] 03-27-2023 08:30-0400 Body height 185.42 cm Gerry Ball Other [facility] [employer] Other 03-27-2023 08:30-0400 Body mass index (BMI) [Ratio] 30.13 kg/m2 Gerry Ball Other [facility] Other 03-27-2023 08:30-0400 Body weight 103.6 kg Gerry Ball Other [facility] Other 03-27-2023 08:30-0400 Diastolic blood pressure 76 mm[Hg] Gerry Ball Other [employer] Other 03-27-2023 08:30-0400 Respiratory rate 12 /min Gerry Ball Other [employer] Other 03-27-2023 08:30-0400 Systolic blood pressure 139 mm[Hg] Gerry Ball Other [facility] Other 04-03-2022 12:40-0400 Blood Pressure Location Jenaro HANSEN [facility] 04-03-2022 12:40-0400 Diastolic blood pressure 82 mm[Hg] Jenaro HANSEN [facility] 04-03-2022 12:40-0400 Heart rate 76 /min Jenaro HANSEN [facility] 04-03-2022 12:40-0400 Respiratory rate 16 /min Jenaro HANSEN [facility] 04-03-2022 12:40-0400 Systolic blood pressure 140 mm[Hg] Jenaro HANSEN [facility] Encounters Encounter Date Encounter Type Care Provider Facility Start: 04-20-2025 ambulatory Jenaro HANSEN Facili ty:[facility] Start: 11-04-2024 ambulatory Jenaro HANSEN Facili ty:[id number] Start: 10-16-2024 End: 10-16-2024 Lab Drop off AILEEN Mackenzie TORRES [facility] Start: 10-16-2024 End: 10-16-2024 ambulatory AILEEN MATTHEWRY Facility:[facility] Start: 10-16-2024 End: 10-16-2024 Patient encounter procedure AILEEN TORRES [facility] Start: 10-06-2024 End: 10-06-2024 ambulatory Jenaro HANSEN Facility:[facility] Start: 10-06-2024 End: 10-06-2024 Lab Drop off Jenaro HANSEN [facility] Start: 10-06-2024 End: 10-06-2024 ambulatory Jenaro HANSEN Facility:[facility] Start: 07-30-2024 End: 07-30-2024 ambulatory [facility] Work Phone: Start: 07-30-2024 End: 07-30-2024 Patient encounter procedure [facility] Work Phone: Start: 07-21-2024 End: 07-21-2024 ambulatory [facility] Work Phone: Start: 07-21-2024 End: 07-21-[address] [facility] Work Phone: Start: 07-14-2024 Non-patient / Non-visit [facility] Work Phone: Start: 06-13-2024 End: 06-13-2024 ambulatory [facility] Work Phone: Start: 06-13-2024 End: 06-13-2024 Patient encounter procedure [facility] Work Phone: Start: 05-13-2024 End: 05-13-2024 Patient encounter procedure [facility] Work Phone: Start: 05-05-2024 End: 05-05-2024 Patient encounter procedure [facility] Work Phone: Start: 04-14-2024 End: 04-14-2024 ambulatory Jenaro HANSEN Facility:[facility] Start: 04-14-2024 End: 04-14-2024 Patient encounter procedure Jenaro HANSEN [facility] Start: 04-11-2024 Non-patient / Non-visit [facility] Work Phone: Start: 04-02-2024 Non-patient / Non-visit [facility] Work Phone: Start: 04-01-2024 Non-patient / Non-visit [facility] Work Phone: Start: 03-31-2024 End: 03-31-2024 ambulatory [facility] Work Phone: Start: 03-31-2024 End: 03-31-2024 Patient encounter procedure [facility] Work Phone: Start: 03-29-2024 Patient encounter procedure [facility] Start: 03-21-2024 End: 03-21-2024 Austin Manzano INSTRUCTOR BUS TROLLEY AND TAXI-ENGINEERING INSPECTOR Work Phone: [facility] Start: 03-21-2024 End: 03-21-2024 Bamboo flowsheet Ashley Manzano INSTRUCTOR BUS TROLLEY AND TAXI-ENGINEERING INSPECTOR Work Phone: [facility] Start: 03-21-2024 End: 03-21-2024 Office outpatient visit 15 minutes Ashley Manzano INSTRUCTOR BUS TROLLEY AND TAXI-ENGINEERING INSPECTOR Work Phone: [facility] Comment on above: Melanocytic nevus of right upper extremity; Melanocytic nevus of left upper extremity; Seborrheic keratosis; Actinic keratosis; Capillary angioma; History of SCC (squamous cell carcinoma) of skin Start: 03-21-2024 End: 03-21-2024 ambulatory ASHLEY MANZANO Not Available Start: 02-05-2024 End: 02-05-2024 ambulatory [facility] Work Phone: Start: 02-05-2024 End: 02-05-2024 Patient encounter procedure [facility] Work Phone: Start: 12-31-2023 End: 12-31-2023 ambulatory [facility] Work Phone: Start: 12-31-2023 End: 12-31-2023 Patient encounter procedure [facility] Work Phone: Start: 12-19-2023 Non-patient / Non-visit [facility] Work Phone: Start: 11-28-2023 End: 11-28-2023 ambulatory [facility] Work Phone: Start: 11-28-2023 End: 11-28-2023 Patient encounter procedure [facility] Work Phone: Start: 11-02-2023 End: 11-02-2023 ambulatory DO [employer] Work Phone: [facility] Work Phone: Start: 11-02-2023 End: 11-02-2023 Patient encounter procedure DO [employer] Work Phone: [facility] Work Phone: Start: 10-31-2023 End: 10-31-2023 ambulatory GERRY W MURCEK Not Available Start: 09-19-2023 End: 09-19-2023 ambulatory GERRY W MURCEK Not Available Start: 09-12-2023 End: 09-12-2023 ambulatory DO Gerry Ball Work Phone: [facility] Work Phone: Start: 09-12-2023 End: 09-12-2023 Patient encounter procedure DO Gerry Ball Work Phone: [facility] Work Phone: Start: 09-05-2023 End: 09-05-2023 ambulatory GERRY W MURCEK Not Available Start: 08-29-2023 End: 08-29-2023 ambulatory GERRY W MURCEK Not Available Start: 08-28-2023 End: 08-28-2023 ambulatory Gerry Murcrystalk Facility:[facility] Start: 08-28-2023 End: 08-28-2023 Admission to same day surgery center DO Gerry Ball Work Phone: [facility] [place] Start: 08-28-2023 End: 08-28-2023 ambulatory DO Gerry Ball Work Phone: [facility] Work Phone: Start: 08-22-2023 End: 08-22-2023 ambulatory Gerry Murcek Facility:[facility] Start: 08-22-2023 Encounter for preprocedural laboratory examination Gerry Leslie [facility] Start: 08-22-2023 End: 08-22-2023 ambulatory DO Gerry Ball Work Phone: [facility] Work Phone: Start: 08-22-2023 End: 08-22-2023 Patient encounter procedure DO Gerry Ball Work Phone: [facility]Pre[facility]Surgical Testing Work Phone: Start: 08-22-2023 End: 08-22-2023 ambulatory GERRY NELSON Not Available Start: 08-10-2023 End: 08-10-2023 Patient encounter procedure DO Gerry Chang Work Phone: [facility] Work Phone: Start: 08-06-2023 Non-patient / Non-visit DO Hayes Chang Work Phone: [facility] Work Phone: Start: 07-30-2023 End: 07-30-2023 ambulatory [facility] Work Phone: Start: 07-30-2023 End: 07-30-2023 Patient encounter procedure [facility] Work Phone: Start: 07-27-2023 Non-patient / Non-visit [facility] Work Phone: Start: 07-25-2023 End: 07-25-2023 ambulatory TALIB Leon BRIA Not Available Start: 07-03-2023 End: 07-03-2023 ambulatory Gerry Chang Other [employer] Other Start: 07-03-2023 Nursing evaluation o f patient and report Gerry Chang [facility] Start: 05-22-2023 End: 05-22-2023 ambulatory ROCKY HERNANDEZ Not Available Start: 03-29-2023 End: 03-29-2023 ambulatory Gerry Chang Other [employer] Other Start: 03-29-2023 Telephone encounter Gerry Chang FP [facility] Start: 03-27-2023 End: 03-27-2023 ambulatory Gerry Chang Other [employer] Other Start: 03-27-2023 Patient encounter procedure Gerry Chang [facility] Start: 03-02-2023 End: 03-02-2023 ambulatory Gerry Chang Other [employer] Other Start: 03-02-2023 Office outpatient vi sit 15 minutes Gerry Chang [facility] Start: 03-02-2023 Telephone encounter Gerry Chang FP [facility] Start: 02-06-2023 End: 02-06-2023 ambulatory Gerry Chang Other [employer] Other Start: 02-06-2023 Nursing evaluation o f patient and report Gerry Chang [facility] Start: 02-06-2023 Telephone encounter Gerry PICHARDO [facility] Start: 01-01-2023 End: 01-01-2023 ambulatory Gerry Chang Other [employer] Other Start: 01-01-2023 Nursing evaluation o f patient and report Gerry Chang [facility] Start: 11-27-2022 End: 11-27-2022 ambulatory Gerry Chang Other [employer] Other Start: 11-27-2022 Nursing evaluation o f patient and report Gerry Chang [facility] Start: 10-18-2022 End: 10-18-[address] GERRY CHANG Facility:[facility] Start: 09-06-2022 End: 09-06-[address] GERRY CHANG Facility:[facility] Start: 09-04-2022 End: 09-04-2022 ambulatory Gerry Chang Other [employer] Other Start: 09-04-2022 Telephone encounter Gerry Chang FP [facility] Start: 08-28-2022 End: 08-28-2022 ambulatory Gerry Chang Other [employer] Other Start: 08-28-2022 Nursing evaluation o f patient and report Gerry Chang [facility] Start: 07-27-2022 End: 07-27-2022 ambulatory Gerry Chang Other [employer] Other Start: 07-27-2022 Nursing evaluation o f patient and report Gerry Chang [facility] Start: 07-26-2022 End: 07-26-[address] GERRY CHANG Facility:[facility] Start: 07-07-2022 End: 07-07-2022 ambulatory Gerry Chang Other [employer] Other Start: 07-07-2022 Telephone encounter Gerry PICHARDO G [facility] Start: 06-26-2022 End: 06-26-2022 ambulatory Gerry Chang Other [employer] Other Start: 06-26-2022 Nursing evaluation o f patient and report Gerry Chang [facility] Start: 06-14-2022 End: 06-14-[address] GERRY CHANG Facility:[facility] Start: 05-17-2022 End: 05-17-[address] GERRY CHANG Facility:[facility] Start: 05-03-2022 End: 05-03-[address] GERRY CHANG Facility:[facility] Start: 04-05-2022 End: 04-06-[address] GERRY CHANG Facility:[facility] Start: 04-03-2022 End: 04-03-2022 Patient encounter procedure Jenaro HANSEN [facility] Start: 03-27-2022 Adult health examination Carlitos Chang Other [employer] Other Start: 03-27-2022 Pre-procedure evalua tion check Gerry Chang Other [employer] Other Start: 03-22-[address] GERRY CHANG [...] Facility:[facility] Start: 02-07-2022 End: 02-09-[address] EGRRY CHANG Facility:[facility] Start: 12-27-2021 End: 12-27-[address] GERRY CHANG Facility:[facility] Start: 11-17-2021 End: 11-17-[address] GERRY CHANG Facility:[facility] Start: 11-16-2021 End: 11-16-[address] BLADIMIR REYES . Facility:[facility] Start: 11-15-2021 End: 11-15-[address] GERRY CHANG Facility:[facility] Start: 11-12-[address] BLADIMIR RYEES . Facility:[facility] Start: 11-09-2021 End: 11-10-[address] ALONZO MADRIGAL Facility:[facility] Start: 03-23-2021 End: 03-23-2021 [facility] Procedures Date Procedure Procedure Detail Performing Clinician Start: 03-21-2024 CRYOTHERAPY SKIN LESION Ashley Edward IGLESIAS Work Phone: Start: 08-28-2023 Excision of lesion of cheek DO Gerry Chang Work Phone: Start: 03-03-[address] GERRY CHANG Comment on above: Performed By: #### PSAD #### [facility] [address] [place] [address] Dr. Dave Duffy Start: 11-25-2020 Adult depression screening assessment Aileen Jenkins RN Start: 09-23-2020 Colonoscopy Aileen Jenkins RN Start: 06-15-2014 Cystoscopy Jenaro HANSEN Start: 06-26-2012 Urodynamic studies Jenaro HANSEN Start: 06-14-2012 Cystoscopy Jenaro HANSEN Start: 06-04-2011 Cholecystectomy Jenaro HANSEN Colonoscopy Jenaro HANSEN Depression screening Benjami n Bernardo Other Esophagogastroduodenoscopy P kaley HANSEN H/O: [...] 04/02/2025 8:30 AM EDT Office Visit [facility] [address] [place] [phone] Ashley Manzano, INSTRUCTOR BUS TROLLEY AND TAXI-ENGINEERING INSPECTOR [address] [place] [address] [facility] Start: 03-21-2024 End: 03-21-2024 Patient encounter procedure 03/21/2024 8:30 AM EDT Office [facility] [address] [place] [phone] Ashley Manzano, INSTRUCTOR BUS TROLLEY AND TAXI-ENGINEERING INSPECTOR [address] [place] [address] Arrived [facility] Comment on above: Arrived Start: 02-03-2024 Influenza vaccination Influenza Vacc ine (#1) [facility] Start: 08-28-2023 [facility] Start: 08-28-2023 [facility] Start: 03-23-2022 COLORECTAL CANCER SCREENING COLORECTAL CANCER SCREENING [facility] Start: 03-23-2022 FECAL OCCULT BLOOD FECAL OCCULT BLOO D [facility] Start: 03-13-2022 End: 05-13-2022 CBC W Auto Differential panel - Blood CBC + DIFF Lab Routine Non-Hodgkin's lymphoma, unspecified body region, unspecified non-Hodgkin lymphoma type (HCC) Expected: 03/13/2022, Expires: 05/13/2022 [facility] Work Phone: Comment on above: Expected: 03/13/2022 , Expires: 05/13/2022 Start: 03-13-2022 End: 05-13-2022 Comprehensive metabolic 2000 panel - Serum or Plasma COMP METABOLIC PANEL Lab Routine Non-Hodgkin's lymphoma, unspecified body region, unspecified non-Hodgkin lymphoma type (HCC) Expected: 03/13/2022, Expires: 05/13/2022 [facility] Work Phone: Comment on above: Expected: 03/13/2022 , Expires: 05/13/2022 Start: 03-13-2022 End: 05-13-2022 Lactate dehydrogenase [Enzymatic activity/volume] in Serum or Plasma LD LACTATE DEHYDRO Lab Routine Non-Hodgkin's lymphoma, unspecified body region, unspecified non-Hodgkin lymphoma type (HCC) Expected: 03/13/2022, Expires: 05/13/2022 [facility] Work Phone: Comment on above: Expected: 03/13/2022 , Expires: 05/13/2022 Start: 02-02-2022 Influenza vaccination INFLUENZA (#1) [facility] Start: 11-25-2021 Adult depression screening assessment DEPRESSION SCREENING [facility] Start: 09-23-2021 Colonoscopy COLONOSCOPY [facility] Start: 06-04-2021 ADVANCE DIRECTIVE DISCUSSION ADVANCE DIRECTIVE DISCUSSION [facility] Start: 06-04-2021 DEPRESSION ASSESSMENT DEPRESSION ASS ESSMENT [facility] Start: 04-11-2021 COVID-19 VACCINE (4 - Booster for Pfizer series) COVID-19 VACCINE (4 - Booster for Pfizer series) [facility] Start: 1992 COLOGUARD (FIT-DNA) COLOGUARD (FIT-D NA) [facility] Start: [address] COLONOGRAPHY [facility] Start: 1992 SIGMOIDOSCOPY SIGMOIDOSCOPY [facility] Start: 1966 Urine microalbumin profile DTAP,TDAP,TD (1 - Tdap) [facility] Start: 1965 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 ALETHA DISEASE VISIT ANNUAL PCP TEAM CHRONIC DISEASE VISIT [facility] Start: 1965 Hepatitis B surface antibody level LDL CHOLESTEROL [facility] Start: 1965 HEPATITIS C SCREENING HEPATITIS C SC REENING [facility] Start: 1957 3 comp foot exam completed DIABETIC FOOT EXAM [facility] Start: 1957 Hepatitis C antibody , confirmatory test DILATED RETINAL EXAM [facility] Start: 1953 PNEUMOCOCCAL: 65+ (1 - PCV) PNEUMOCOCCAL: 65+ (1 - PCV) [facility] Start: 1952 Hemoglobin A1c/Hemoglobin.total in Blood HBA1C [facility] Comprehensive metabo lic 1999 panel - Serum or Plasma [facility] Patient referral [facility] Work Phone: Renal function 1999 panel - Serum or Plasma [facility] Renal function 1999 panel - Serum or Plasma [facility] Immunizations Immunization Date Immunization Notes Care Provider Jose whalen 02-13-2024 influenza virus vaccine, unspecified formulation Ashley 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 03-13-2023 influenza, high dose seasonal, preservative-free Gerry Chang Other [employer] Other 02-23-2022 influenza virus vaccine, split virus (incl. purified surface antigen) Gerry Bernardo Other [employer] Other 02-23-2022 influenza virus vaccine, unspecified formulation [facility] 02-23-2022 Influenza, Seasonal, Quadrivalent, Adjuvanted Ashley Manzano APRN-ENGINEERING INSPECTOR Work Phone: [facility] 02-23-2022 SARS-CoV-2 (COVID-19 ) [id number] Jenaro HANSEN [facility] 09-13-2021 SARS-CoV-2 mRNA ([id number] se) vaccine Jenaro HANSEN [facility] 02-25-2021 influenza virus vaccine, split virus (incl. purified surface antigen) Gerry Chang Other [facility] [employer] Other 02-25-2021 influenza virus vaccine, unspecified formulation [facility] 02-25-2021 Seasonal trivalent influenza vaccine, adjuvanted, preservative free Aileen Jenkins RN [facility] 01-17-2021 SARS-CoV-2 (COVID-19 ) mRNA [id number] vax Jenaro HANSEN [facility] Comment on above: Result Comment: 2023: [id number] 07-28-2020 COVID-19 Vaccine Pfi zer - Documentation Purposes Only Gerry Chang Other [facility] Comment on above: Result Comment: 2023: [id number] 07-07-2020 COVID-19 Vaccine Pfi zer - Documentation Purposes Only Gerry Chang Other [facility] Comment on above: Result Comment: 2023: [id number] 02-05-2020 influenza virus vaccine, unspecified formulation Jenaro HANSEN [facility] 02-05-2020 influenza, high-dose , quadrivalent vaccine (FLUZONE HIGH DOSE QUADRIVALENT) Aileen Jenkins RN [facility] 08-17-2019 zoster vaccine recombinant Aileen Jenkins RN [facility] 06-01-2019 zoster vaccine recombinant Aileen Jenkins RN [facility] 03-12-2019 influenza virus vaccine, split virus (incl. purified surface antigen) Gerry Chang Other [facility] Other 03-12-2019 influenza virus vaccine, unspecified formulation [facility] 03-26-2018 influenza virus vaccine, split virus (incl. purified surface antigen) Gerry Chang Other [facility] [employer] Other 03-26-2018 influenza virus vaccine, unspecified formulation [facility] 03-26-2018 Seasonal trivalent influenza vaccine, adjuvanted, preservative free Aileen Jenkins RN [facility] 11-16-2017 diphtheria, tetanus toxoids and acellular pertussis vaccine, unspecified formulation Gerry Chang Other [facility] 04-12-2017 influenza virus vaccine, split virus (incl. purified surface antigen) Gerry Chang Other [facility] [employer] Other 04-12-2017 influenza virus vaccine, unspecified formulation [facility] 04-12-2017 influenza, high dose seasonal, preservative-free Aileen Jenkins RN [facility] 03-15-2016 influenza virus vaccine, split virus (incl. purified surface antigen) Gerry Chang Other [facility] [employer] Other 03-15-2016 influenza virus vaccine, unspecified formulation [facility] 03-15-2016 influenza, high dose seasonal, preservative-free Aileen Jenkins RN [facility] 04-09-2015 pneumococcal conjuga te vaccine, 13 valent Gerry Chang Other [facility] 04-06-2015 influenza virus vaccine, split virus (incl. purified surface antigen) Gerry Chang Other [facility] Other 04-06-2015 influenza virus vaccine, unspecified formulation [facility] 04-06-2015 influenza, high dose seasonal, preservative-free Aileen Jenkins RN [facility] 03-16-2014 pneumococcal Conjuga te, unspecified formulation; Translations: [Need for prophylactic vaccination against Streptococcus pneumoniae (pneumococcus)] Gerry Chang Other [facility] Other 03-16-2014 pneumococcal polysaccharide vaccine, 23 valent Gerry Chang Other [facility] 03-16-2014 tetanus and diphther ia toxoids, adsorbed, preservative free, for adult use (5 Lf of tetanus toxoid and 2 Lf of diphtheria toxoid) Gerry Chang Other [facility] 04-10-2013 zoster vaccine, live Aileen aClvo [facility] 03-26-2002 diphtheria, tetanus toxoids and acellular pertussis vaccine, unspecified formulation Gerry Chang Other [facility] Payers Date Payer Category Payer Private Health Insurance [id number] 2004 Medicare [id number] 1959 Medicare [id number] 1959 Self-pay 1959 Unknown [id number] 1947 Unknown [id number] 2.16.840.1.847461.3.579.2. 593 1947 Unknown [id number] 2.16.840.1.426327.3.579.2. 593 1947 Unknown [id number] 2.16.840.1.846200.3.579.2. 593 1947 Unknown [id number] 2.16.840.1.270401.3.579.2. 593 1947 Unknown [id number] 2.16.840.1.826412.3.579.2. 593 1947 Unknown [id number] 2.16.840.1.554997.3.579.2. 593 1947 Unknown [id number] 2.16.840.1.214794.3.579.2. 593 1947 Unknown [id number] 2.16.840.1.488807.3.579.2. 593 1947 Unknown [id number] 2.16.840.1.619570.3.579.2. 593 1947 Unknown [id number] 2.16.840.1.994446.3.579.2. 593 1947 Unknown [id number] 2.16.840.1.822979.3.579.2. 593 1947 Unknown [id number] 2.16.840.1.711792.3.579.2. 593 1947 Unknown [id number] 2.16.840.1.360853.3.579.2. 593 1947 Unknown [id number] 2.16.840.1.832962.3.579.2. 593 1947 Unknown [id number] 2.16.840.1.979878.3.579.2. 593 1947 Unknown [id number] 2.16.840.1.502681.3.579.2. 593 1947 Unknown [id number] 2.16.840.1.625784.3.579.2. 593 1947 Unknown [id number] 2.16.840.1.123763.3.579.2. 593 1947 Unknown [id number] 2.16.840.1.748971.3.579.2. 1259 1947 Unknown [id number] 2.16.840.1.741154.3.579.2. 1258 1947 Unknown [id number] 2.16.840.1.602368.3.579.2. 1258 1947 Unknown [id number] 2.16.840.1.720059.3.579.2. 1258 1947 Unknown [id number] 2.16.840.1.826774.3.579.2. 1258 1947 Unknown [id number] 2.16.840.1.099080.3.579.2. 1258 1947 Unknown [id number] 2.16.840.1.076206.3.579.2. 1258 1947 Unknown [id number] 2.16.840.1.254567.3.579.2. 1258 1947 Unknown [id number] 2.16.840.1.240836.3.579.2. 72 1947 Unknown [id number] 2.16.840.1.681299.3.579.2. 1947 Unknown [id number] 2.16.840.1.099666.3.579.2. 1947 Unknown [id number] 2.16.840.1.402568.3.579.2. 1947 Unknown [id number] 2.16.840.1.401366.3.579.2. 1945 Unknown [id number] 2.16.840.1.025840.3.579.2. 72 Medicare Medicare Outpatient [id number] 63 [id number] Private Health Insurance [facility] [id number] Unknown [id number] 2.16.840.1.707002.3.579.2. 593 Unknown [id number] 2.16.840.1.880376.3.579.2. 531 Unknown [id number] 2.16.840.1.034671.3.579.2. 531 Unknown [id number] Social History Date Type Detail Facility Start: 07-15-2012 End: 10-16-2024 Tobacco smoking status DCIS Never smoked tobacco [facility] Start: 07-15-2012 End: 05-22-2023 Tobacco use and exposure Smokeless tobacco non-user [facility] Start: 03-23-2021 Alcohol intake Current non-dr shrinker of alcohol (finding) [facility] Start: 1945 Sex Assigned At Not on file [facility] Start: 02-11-2022 End: 02-27-2022 Exposure to SARS-CoV-2 (event) Not sure [facility] Start: 10-31-2023 End: 03-21-2024 Sex Assigned At Male [facility] Start: 1945 Sex Assigned At Male [facility] Start: 10-31-2023 End: 03-21-2024 Alcoholic beverage intake Current drinker of alcohol (finding) [facility] Start: 10-31-2023 End: 03-21-2024 History of Social function [facility] Start: 03-06-2023 Alcohol Comment Monthly or less [facility] Tobacco smoking status Never [facility] [place] Start: 09-15-2009 End: 06-13-2024 Sex Male (finding) [facility] Sexual Orientation [facility] Medical Equipment Procedure Code Equipment Code Equipment Origin al Text Equipment Identifier Dates 1 each by Other route if needed Blood Sugar Diagnostic (Contour Next Test Strips) strip Start: 06-16-2024 Blood Sugar Diagnostic (Contour Next Test Strips) strip Start: 06-16-2024 End: 06-16-2024 Blood Sugar Diagnostic (Contour Next Test Strips) strip Start: 06-16-2024 Blood Sugar Diagnostic (Contour Next Test Strips) strip Start: 06-16-2024 End: 06-16-2024 Goals Date Patient Goal Desired Activity /State Functional Status Date Assessment Result Facility 10-16-2024 Functional Status N/A [facility] 04-14-2024 Functional Status N/A [facility] 04-03-2022 Functional Status N/A [facility] Clinical Notes 05-02-2019 to 10-16-2024 Note Date & Type Note Facility 10-16-2024 Hospital Discharg e instructions Patient Education 10/16/2024 10:10:05 Hematuria, Adult Hematuria, Adult Hematuria is blood in the urine. Blood may be visible in the urine, or it may be identified with a test. This condition can be caused by infections of the bladder, urethra, kidney, or prostate. Other possible causes include: Kidney stones. Cancer of the urinary tract. Too much calcium in the urine. Conditions that are passed from parent to child (inherited conditions). Exercise that requires a lot of energy. [...] cancers. Follow these instructions at home: Medicines Take bzlo-xxd-hftrauy and prescription medicines only as told by your health care provider. If you were prescribed an antibiotic medicine, take it as told by your health care provider. Do not stop taking the antibiotic even if you start to feel better. Eating and drinking Drink enough fluid to keep your urine pale yellow. It is recommended that you drink 3 4 quarts (2.8 3.8 L) a day. If you have been diagnosed with an infection, drinking cranberry juice in addition to large amounts of water is recommended. Avoid caffeine, tea, and carbonated beverages. These tend to irritate the bladder. Avoid alcohol because it may irritate the prostate (in males). General instructions If you have been diagnosed with a kidney stone, follow your health care provider's instructions about straining your urine to catch the stone. Empty your bladder often. Avoid holding urine for long periods of time. If you are female: ?After a bowel movement, wipe from front to back and use each piece of toilet paper only once. ?Empty your bladder before and after sex. Pay attention to any changes in your symptoms. Tell your health care provider about any changes or any new symptoms. It is up to you to get the results of any tests. Ask your health care provider, or the department that is doing the test, when your results will be ready. Keep all follow-up visits. This is important. Contact a health care provider if: You develop back pain. You have a fever or chills. You have nausea or vomiting. Your symptoms do not improve after 3 days. Your symptoms get worse. Get help right away if: You develop severe vomiting and are unable to take medicine without vomiting. You develop severe pain in your back or abdomen even though you are taking medicine. You pass a large amount of blood in your urine. You pass blood clots in your urine. You feel very weak or like you might faint. You faint. Summary Hematuria is blood in the urine. It has many possible causes. It is very important that you tell your health care provider about any blood in your urine, even if it is painless or the blood stops without treatment. Take lbol-lsx-dwuszfl and prescription medicines only as told by your health care provider. Drink enough fluid to keep your urine pale yellow. This information is not intended to replace advice given to you by your health care provider. Make sure you discuss any questions you have with your health care provider. Document Revised: 01/19/2021 Document Reviewed: 01/19/2021 Trendr Patient Education 2023 [employer]. Follow Up Care 10/08/2024 16:20:15 With:[facility] Address: When: Unknown Comments:For procedure as scheduled. [facility] Note Patient Education Urology Hematuria, Adult Hematuria is [...] these instructions at home: Medicines ??? Take onni-omv-nzxtnnt and prescription medicines only as told by [...] the blood stops without treatment. ??? Take oodl-idn-jvdioax and prescription medicines only as told by your health care provider. ??? Drink enough fluid to keep your urine pale yellow. This information is not intended to replace advice given to you by your health care provider. Make sure you discuss any questions you have with your health care provider. Document Revised: 01/19/2021 Document Reviewed: 01/19/2021 Trendr Patient Education ? 2023 [employer]. [facility] 10-06-2024 Note Patient Education Urology Hematuria, Adult Hematuria is [...] these instructions at home: Medicines ??? Take viyg-gdp-ikomjpx and prescription medicines only as told by [...] the blood stops without treatment. ??? Take aalv-qtt-iwlwljt and prescription medicines only as told by your health care provider. ??? Drink enough fluid to keep your urine pale yellow. This information is not intended to replace advice given to you by your health care provider. Make sure you discuss any questions you have with your health care provider. Document Revised: 01/19/2021 Document Reviewed: 01/19/2021 [employer]rendr Patient Education ? 2023 [employer]. [facility] 05-05-2024 Evaluation note Diagnosis Onset Date Resolution Anemia of renal disease acute D ec2023 2:29pm CKD (chronic kidney disease) stage 4, GFR 15-29 ml/min acute May 05, 2024 2:29pm Hyperlipidemia, mixed acute Dec ember 2023 2:29pm Hypertensive chronic kidney disease with stage 1 through stage 4 chronic ki acute Decem armani 2023 2:29pm Secondary hyperparathyroidism acute May 2:29pm Type 2 diabetes mellitus with diabetic chronic kidney disease acute May 05, 2024 2:29pm Anemia of renal disease acute F ebruary 2024 2:34pm CKD (chronic kidney disease) stage 4, GFR 15-29 ml/min acute July 21, 2024 2:34pm Hyperlipidemia, mixed acute Feb ruary 2024 2:34pm Hypertensive chronic kidney disease with stage 1 through stage 4 chronic ki acute Febru nguyễn 2024 2:34pm Hypomagnesemia acute July 052024 2:34pm Secondary hyperparathyroidism acute July 2:34pm Thrombocytopenia acute July 21, 2024 2:34pm Type 2 diabetes mellitus with diabetic chronic kidney disease acute July 21, 2024 2:34pm [facility] Work Phone: 1(709) 430-747412-02-2024 Evaluation note* Diagnosis Onset Date Resolution Status Admit Date Anemia of renal disease acute D ec2023 2:29pm CKD (chronic kidney disease) stage 4, GFR 15-29 ml/min acute May 2:29pm Hyperlipidemia, mixed acute Dec emb2023 2:29pm Hypertensive chronic kidney disease with stage 1 through stage 4 chronic ki acute May 05 2:29pm Secondary hyperparathyroidism acute May 05, 2024 2:29pm Type 2 diabetes mellitus wit h diabetic chronic kidney disease acute May 05, 2024 2:29pm Anemia of renal disease acute F ebruary 2024 2:34pm CKD (chronic kidney disease) stage 4, GFR 15-29 ml/min acute July 2:34pm Hyperlipidemia, mixed acute Feb ruary 2024 2:34pm Hypertensive chronic kidney disease with stage 1 through stage 4 chronic ki acute July 21, 025 2:34pm Hypomagnesemia acute July 052024 2:34pm Secondary hyperparathyroidism acute July 21, 2024 2:34pm Thrombocytopenia acute July 21, 2024 2:34pm Type 2 diabetes mellitus wit h diabetic chronic kidney disease acute July 21, 2024 2:34pm Chronic kidney disease acute Fe bruary 2024 8:13am Chronic venous insufficiency acute July 30, 2024 8:13am Elevated PSA acute July 8:13am Hyperlipidemia, mixed acute Feb ruary 2024 8:13am Obesity acute July 30, 2024 8:13am Pernicious anemia acute uar 2024 8:13am Post herpetic neuralgia acute F ebruary 2024 8:13am Primary hypertension acute uary 2024 8:13am Thrombocytopenia acute July 30, 2024 8:13am Type 2 diabetes mellitus wit h diabetic polyneuropathy acute July 30, 2024 8:13am Type 2 diabetes mellitus wit h hyperglycemia acute July 30, 025 8:13am [facility] Work Phone: 1(856) 217-169011-11-2024 Hospital Discharge instructions Patient Education 04/14/2024 12:36:08 Prostate Cancer Screening Prostate Cancer Screening Prostate cancer screening is testing that is done to check for the presence of prostate cancer in men. The prostate gland is a walnut-sized gland that is located below the bladder and in front of therectum in males. The function of the prostate is to add fluid to semen during ejaculation. Prostatecancer is one of the most common types of cancer in men. Who should have prostate cancer screening? Screening recommendations vary based on age and other risk factors, as well as between the professional organizations who make the recommendations. In general, screening is recommended if: You are age 50 to 70 and have an average risk for prostate cancer. You should talk with your healthcare provider about your need for screening and [...] diagnosed with prostate cancer. The risk is higherif your family member's cancer occurred at an early age or if you have multiple family members withprostate cancer at an early age. ?Being a [...] is a blood test called the prostate-specific antigen(PSA) test. PSA is a protein that is [...] treatment? Where to find more information The [employer] Cancer Society: www.cancer.org Stateless Urological Association: www.auanet.org Contact a health care [...] the recommended screening test for prostate cancer, butit has associated risks. Discuss the risks and [...] provider. Document Revised: 11/14/2021 Document Reviewed: 11/14/2021 Trendr Patient Education 2023 [employer]. Follow Up Care 04/08/2024 11:27:26 With:JADE DOYLE, Jenaro Roberto, URL Address: [facility] [address], [place] [address] [phone] When: Unknown Comments:6 mos w/ PSA [facility] 11-11-2024 NoteUrology Office/Clinic Note Chief Complaint referral HPI Staff [...] and history for this patient from Dr. Goldstein external providers. I have reviewed and verified [...] repeating PSA in a few months vs pr ostate MRI which could lead to a biopsy [...] R renal hilum wo convincing dilation of allthe calyces, may represent a large cyst protruding into the hilum/parapelvic cyst. 4. BPH with urinary obstruction (N40.1: Benign prostatic hyperplasia with lower urinary tract symptoms) S/p TURP 08/2012. UA today shows trace-intact blood (clinically neg), neg for infection. Not currently taking any BPHmeds. No bother with urination. 5. 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 CMP 04/01/24 - BUN 48, Cr 3.15, GFR 19. Dr. Chang referred pt to nephrology. Follow-up With When Contact Information Jenaro HANSEN MD, URL [facility] [address], [place] [address] [phone] Additional Instructions: 6 mos w/ PSA Patient [...] Cystoscopy (06/15/2014), Urodynamics (06/26/2012), Cystoscopy (06/14/2012), Cholecystectomy (2011),Colonoscopy, EGD - Esophagogastroduodenoscopy, Laparoscopy, Partial resection of colon, Total knee arthroplasty, Transurethral biopsy prostate, TURP - Transurethral resection of prostate. Medications aspirin atorvastatin, Oral, Daily carvedilol, Oral glimepiride, Oral, Daily Levemir, SubCutaneous, Self Directed lisinopril, Oral, Daily Tradjenta, Oral, (more content not included)...[facility] Comment on above:Result Comment: Electronically Signed By: Jenaro HANSEN MD\.br\Date and Time Signed: 04/14/24 12:43 EST\.br\Electronically Co-Signed By: Rochelle Hightower\.br\Date and Time Co-Signed: 04/14/24 12:42 [id number] Note Patient Education Oncology Prostate Cancer Screening Prostate cancer screening is testing that is done to check for the presence of prostate cancer in men. The prostate gland is a walnut-sized gland that is located below the bladder and in front of therectum in males. The function of the prostate is to add fluid to semen during ejaculation. Prostatecancer is one of the most common types [...] is a blood test called the prostate-specific antigen(PSA) test. PSA is a protein that is [...] prostate gland for testing (biopsy). This is theonly way to know for certain if you [...] Where to find more information ??? The [employer] Cancer Society: www.cancer.org ??? Stateless Urological Association: www.auanet.org Contact a health care [...] men. The prostate gland (more content not included)...[facility]10-28-2024 Evaluation note* Diagnosis Onset Date Resolution Status Admit Date Chronic kidney disease acute Oc tob2023 8:14am Chronic venous insufficiency acute March 31, 2024 8:14am Hyperlipidemia, mixed acute Oct hai 2023 8:14am Medicare annual wellness vis it, subsequent acute March 31 8:14am Obesity acute March 31, 2024 8:14am Pernicious anemia acute March 31, 2024 8:14am Primary hypertension acute Octo armani 2023 8:14am Screening PSA (prostate spec ific antigen) acute March 31 8:14am Type 2 diabetes mellitus wit h diabetic polyneuropathy acute March 31, 2024 8:14am Type 2 diabetes mellitus wit h hyperglycemia acute March 31 8:14am Anemia of renal disease acute D ec2023 2:29pm CKD (chronic kidney disease) stage 4, GFR 15-29 ml/min acute May 2:29pm Hyperlipidemia, mixed acute Dec 2023 2:29pm Hypertensive chronic kidney disease with stage 1 through stage 4 chronic ki acute May 05 2:29pm Secondary hyperparathyroidism acute May 05, 2024 2:29pm Type 2 diabetes mellitus wit h diabetic chronic kidney disease acute May 05, 2024 2:29pm [facility] Work Phone: 1(118) 479-328510-18-2024 History of Present illness Narrative* Ashley Manzano, 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 [...] Anterior (2), Right Forearm - Posterior, Right Muslim 5. Capillary angioma (2) Left Arm, Right [...] 1 year, skin check documented in this encounterTenet [facility]. [id number] Evaluation note* Encounter Date Diagnosis Assessment Notes Treatment Notes Treatment Clinical Notes Jun, Pernicious anemia (ICD-10 - D51.0) [employer] Other 10-24-2023 Evaluation note* Encounter Date Diagnosis [...] index [BMI] 30.0-30.9, adult (ICD-10 - Z68.30) [employer] Other 09-29-2023 Evaluation note* Encounter Date Diagnosis [...] in public places for complete 10 days [employer] Other 09-05-2023 Evaluation note* Encounter Date Diagnosis Assessment Notes Treatment Notes Treatment Clinical Notes Feb, Pernicious anemia (ICD-10 - D51.0) [employer] Other 07-31-2023 Evaluation note* Encounter Date Diagnosis Assessment Notes Treatment Notes Treatment Clinical Notes Dec, Pernicious anemia (ICD-10 - D51.0) [employer] Other 06-26-2023 Evaluation note* Encounter Date Diagnosis Assessment Notes Treatment Notes Treatment Clinical Notes Nov, Pernicious anemia (ICD-10 - D51.0) [employer] Other 03-27-2023 Evaluation note* Encounter Date Diagnosis Assessment Notes Treatment Notes Treatment Clinical Notes Aug, Pernicious anemia (ICD-10 - D51.0) [employer] Other 02-23-2023 Evaluation note* Encounter Date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
== END 2024-10-31 07:11 | disposition home or self-care (01) ==
LOC: CT 07:11
PROVIDERS: PCP Internal Medicine; Visit Provider Urology
DX: R31.21 Asymptomatic microscopic hematuria (principal); N28.1 Cyst of kidney, acquired; K57.90 Diverticulosis of intestine, part unspecified, without perforation or abscess without bleeding; K42.9 Umbilical hernia without obstruction or gangrene
CPT/HCPCS: 74176

== ENCOUNTER 2025-01-19 07:13 | Outpatient (OUT) | payer MEDICARE, SELFPAY ==
--- OUTSIDE RECORDS SUMMARY | 2025-01-19 07:19 | XMS_ITS | CCD ---
Author Organization [facility] Care Team Providers Care Foundry Helper Name Role Phone Bernardo Gerry Primary Care Provider MARYJO KIDD Referring Unavailable BERNARDO, GERRY Mann Primary Care Unavailable KENDALL HONEYCUTT Attending Unavailable IKNGS JONES Referring Unavailable BERNARDO, GERRY Mann Primary Care Unavailable YOLY BOSS Referring Unavailable BERNARDO, GERRY Mann Primary Care Unavailable GERRY CHANG Primary Care Physician [phone] Bernardo, Gerry Unavailable BERNARDO, DR CONDON Primary Care Unavailable BALL, DR CONDON Consulting Unavailable BALL, DR CONDON Admitting Unavailable BALL, DR CONDON Attending Unavailable GRILLIS ., DR BLADIMIR Mann Attending Unavaila ble GRILLIS ., DR BLADIMIR Mann Admitting Unavaila ble GRILLIS ., DR BLADIMIR Mann Consulting Unavaila ble BALL, DR CONDON Primary Care Unavailable MENDOTA, DR ALONZO Hernandez Consulting Unavailable BALL, DR [...] Primary Care Unavailable GRILLIS ., DR BLADIMIR Mnan Attending Unavaila ble GRILLIS ., DR BLADIMIR [...] BALL, DR CONDON Admitting Unavailable BALL, DR CNODON Primary Care Unavailable BALL, DR CONDON Admitting [...] Care Provider DO Gerry Nelson Attending Provider Gerry Nelson Attending Unavailable Ball, Gerry Primary Care Unavailable Murcek, Gerry Admitting Unavailable Murcek, Gerry Admitting Unavailable Murcek, Gerry Attending Unavailable Ball, Gerry Primary Care Unavailable Gerry Chang MD Primary Care Provider Talib Gant MD Unavailable [phone] MurGerry patel DO Unavailable TALIB GANT Attending Unavailable MURCEK, GERRY Booker Attending Unavailable PETITTI, TALIB Leon Referring Unavailable MURCEK, GERRY Booker Attending Unavailable MURCEK, GERRY Booker Attending Unavailable BALL, GERRY Mann Referring Unavailable MURCEK, GERRY Booker Attending Unavailable PETITTI, TALIB A Referring Unavailable MURCEK, GERRY Booker Attending Unavailable HERNANDEZROCKY Attending Unavailable FELTDAQUAN, ASHLEY Leon Attending Unavailable HANSEN, Jenaro R Attending Unavailable HANSEN, Jenaro R Attending Unavailable HANSEN, Jenaro R Attending Unavailable GERRY CHANG Referring Unavailable HANSEN, Jenaro R Admitting Unavailable HANSEN, Jenaro R Attending Unavailable TIMOTEO DUKES Attending Unavailab TIMOTEO Mendoza Admitting Unavailab le HANSEN, Jenaro R Admitting Unavailable HANSEN, Jenaro R Attending Unavailable HANSEN, Jenaro R Attending Unavailable TIMOTEO DUKES Attending Unavailab le Gerry Chang DO Primary Care Provider Jenaro Hansen MD Attending Provider [phone] Vaishali Howell MD Attending Provider [phone] Aileen Dukes PA-C Attending Provider Gerry Chang DO Attending Provider [phone] Gerry Chang DO Primary Care Provider [phone] Jenaro Hansen MD Attending Provider [phone] Allergies Allergy Classification Reported Allergen(s) Allergy Type Date of Onset Reaction(s) Facility (15 sources) Ketorolac; Translations: [KETOROLAC] Drug Allergy 09-23-19 21 Unknown, Unknown (qualifier value) [facility] (18 sources) Piperacillin / tazobactam; Translations: [PIPERACILLIN-TA ZOBACTAM] Drug Allergy 09-14-19 10 Rash, Eruption of skin (disorder) [facility] (12 sources) Vorinostat; Translations: [vorinostat] Drug Allergy 08-21-19 24 Unknown (qualifier value) [facility] (3 sources) Ketorolac; Translations: [Toradol] Drug Allergy [facility] (1 source) Piperacillin / tazobactam Drug Allergy 01-15-20 16 [facility] (3 sources) tazobactam; Translations: [tazobactam] Drug Allergy 11-05-19 23 [facility] (3 sources) patient allergy list reviewed by nurse or physicia Propensity to adverse reactions 12-26-19 19 Comment:Done [employer] Other (3 sources) Allergies Reconciled Propensity to adverse reactions Unknown [employer] Other (1 source) Piperacillin Drug Allergy 08-22-19 24 [facility] (3 sources) Ketorolac Allergy to substance 09-24-19 21 Unknown [facility] Work Phone: (3 sources) Ketorolac trometamol Allergy to substance 07-25-19 24 Unknown [facility] (3 sources) Piperacillin Drug Allergy 08-22-19 24 [facility] (3 sources) Piperacillin / tazobactam Drug Allergy 09-15-19 10 Rash [facility] (3 sources) Vorinostat Drug Allergy 08-22-19 24 Unknown [facility] Work Phone: (3 sources) Piperacillin Sod-Tazobactam So Drug Intolerance 04-10-20 13 Other [facility] (3 sources) tazobactam; Translations: [tazobactam] Drug Allergy 11-05-19 23 Unknown [facility] Medications Current Medications Medication Drug Class(es) Dates Sig (Normalized) Sig (Original) Aspir-81 81 MG (14 sources) take 1 tablet by mouth three times weekly Aspir-81 81 MG 1 tablet Orally THREE TIMES A WEEK for 30 day(s) Active aspirin 81 mg delayed release oral tablet (20 sources) Platelet Aggregation Inhibitor, Nonsteroidal Anti-inflammatory Drug Start: 07-25-2023 take 1 tablet by mouth three times weekly Start: 11-27-2019 take 81 mg by mouth [...] tablet (20 sources) HMG-CoA Reductase Inhibitor Start: 10-17-2023 End: 10-02-2024 take 1 tablet by mouth once daily in the evening Start: 11-27-2019 End: 10-17-2023 take 1 tablet by mouth [...] by mouth in the morning. Active calcitriol 0.33420 mg oral capsule (9 sources) Vitamin D3 Analog Start: Start: 10-06-2024 take 1 capsule by mo uth once daily calcitriol 0.25 mcg Cap 0.25 mcg = 1 cap(s), Oral, Daily Start Date: 10/06/24 Status: Ordered Repeat number: 1 Start: 07-21-2024 End: 12-29-2024 take 1 capsule by mouth every week Calcitriol 0.25 mcg capsule Discontinued 0.25 MCG PO 3 Times a week 40 July 21, 2024 1:00am December 29, 2024 10:28am administer after dialysis on dialysis days calcium carbonate 1500 mg oral tablet (9 sources) Start: 10-06-2024 take 1 tablet by mouth once daily calcium (as carbonate) 600 mg oral tablet 600 mg = 1 tab(s), Oral, Daily Start Date: 10/06/24 Status: Ordered Repeat number: 1 Start: 05-05-2024 take 1 tablet by mouth once da arpit carvedilol 6.25 mg oral tablet (20 sources) alpha-Adrenergic Luli, beta-Adrenergic Luli Start: 11-15-2023 End: 10-30-2024 take 1 tablet by mouth twice daily Start: 11-27-2019 carvedilol Ora l, Refills(s) 0 Start Date: 11/27/19 Status: Ordered Start: 06-15-2014 End: 11-15-2023 take 1 tablet by mouth twice daily Carvedilol 6.25 mg tablet Discontinued 6.25 MG PO Twice daily July 25, 2023 1:00am November 15, 2023 1:00pm Comment on above: Take 6.25 mg by mout h twice daily with meals. Contour Next Test - (14 sources) Contour Next Test - USE 1 STRIP TO TEST BLOOD SUGAR AT HOME 3 TIMES A DAY for 30 Active dutasteride 0.5 mg oral capsule (11 sources) 5-alpha Reductase Inhibitor take 1 capsule by mouth every twenty-four hours Avodart 0.5 MG 1 capsule Orally Once a day for 30 day(s) Active gabapentin 100 mg oral capsule (7 sources) Anti-epileptic Agent Start: 07-30-2024 End: 08-28-2024 take 1 capsule by mouth once daily in the evening glimepiride 4 mg oral tablet (20 sources) Sulfonylurea Start: 11-19-2023 End: 11-23-2024 take 2 tablets by mouth once daily in the morning Start: 07-25-2023 take 4 mg by mouth [...] wice daily with meals. 3 ml insulin glargine 100 unt/ml pen injector (9 sources) Insulin Analog Start: inject 8 [IU] by subcutaneous injection once daily Basaglar KwikPen 100 units/mL subcutaneous solution 8 unit(s), SubCutaneous, Daily Start Date: 10/06/24 Status: Ordered Repeat number: 1 Start: 03-31-2024 inject 8 [IU] by sub cutaneous injection once daily in the evening as needed Levemir FlexPen 100 UNIT/ML (2 sources) Start: 07-07-2022 Levemir FlexPe n 100 UNIT/ML 12 units Subcutaneous Once daily for 90 days Jul, Active lisinopril 2.5 mg oral tablet (20 sources) Angiotensin Converting Enzyme Inhibitor Start: 09-18-2023 End: 09-07-2024 take 1 tablet by mouth once daily Start: 11-27-2019 End: 09-18-2023 take 1 tablet by mouth once daily at bedtime Lisinopril 2.5 mg tablet Discontinued 2.5 MG PO Daily at bedtime July 25, 2023 1:00am September 18, 2023 1:24pm Start: 11-27-2019 lisinopril Ora l, Daily, Refills(s) 0 Start Date: 11/27/19 Status: Ordered Comment on above: Take 2.5 mg by mouth once daily. Magnesium Aspart,Citrate,Oxide 400 mg magnesium capsule (7 sources) Start: 10-29-2024 take 1 capsule by mouth once daily Start: 10-29-2024 take 1 capsule by mo uth once daily Magnesium Aspart,Citrate,Oxide 400 mg magnesium capsule Active 400 MG PO Daily October 29, 2024 9:15am Complies with 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 Start: 10-29-2024 take 1 capsule by mo uth once daily Magnesium Aspart,Citrate,Oxide 400 mg magnesium capsule Active 400 MG PO Daily October 29, 2024 9:15am Start: 07-30-2024 End: 10-29-2024 Magnesium Aspart,Citrate,Oxi de 400 mg magnesium capsule Discontinued MG PO July 30, 2024 1:00am October 29, 2024 9:15am Start: 07-30-2024 Magnesium Aspa rt,Citrate,Oxide 400 mg magnesium capsule Active MG PO July 30, 2024 12:00am magnesium oxide 400 mg oral tablet (3 sources) Start: 10-06-2024 take 1 tablet by mouth once daily magnesium oxide 400 mg Tab 400 mg = 1 tab(s), Oral, Daily Start Date: 10/06/24 Status: Ordered Repeat number: 1 Metformin & Diet Manage Prod 500 MG (11 sources) Metformin & Diet Manage Prod 500 MG as directed Orally TWICE DAILY Active molnupiravir 200 MG Oral Capsule [Lagevrio] (2 sources) Start: 03-02-2023 take 4 capsules by mouth every twelve hours Molnupiravir 200 MG 4 capsules Orally every 12 hrs for 5 days Feb, Active SITagliptin 25 mg oral tablet (8 sources) Dipeptidyl Peptidase 4 Inhibitor Start: 07-07-2024 take 1 tablet by mouth once daily Completed/Discontinued Medications Medication Drug Class(es) Dates Sig [...] procedure, # 2 tab(s), Refills(s) 0, Pharmacy: [facility]/pharmacy #[id number], 187, cm, 10/16/24 8:21:00 EDT, Height/Length Dosing, 104.3, kg, 10/16/24 8:21:00 EDT, Weight Dosing Start Date: 10/16/24 Status: Ordered Quantity: 2.0 Unit: tab(s) Repeat number: 1 3 ml insulin detemir 100 unt/ml pen injector (20 sources) Insulin Analog Start: 08-22-2023 End: 03-31-2024 Insulin Detemir U-100 (Levemir Flexpen) 100 unit/mL (3 mL) insulin pen Discontinued 12 UNIT SUBCUT Daily at bedtime August 22, 2023 12:00am March 31, 2024 10:04am Start: 07-07-2022 Levemir FlexPe n 100 UNIT/ML [...] Flexpen) 100 unit/mL (3 mL) insulin pen (12 sources) Start: 08-22-2023 End: 03-31-2024 Insulin Detemir U-100 (Levem ir Flexpen) 100 unit/mL (3 mL) insulin pen Discontinued 12 UNIT SUBCUT Daily at bedtime August 22, 2023 12:00am March 31, 2024 10:04am Start: 08-22-2023 End: 03-31-2024 Insulin Detemir U-100 [...] 5 MG PO Daily July 21, 2024 1:00am July 27, 2024 4:40pm Start: 02-28-2024 End: 07-07-2024 take 1 tablet by mouth once daily Linagliptin (Tradjenta) 5 mg tablet Discontinued 0 .ROUTE .COMPLEX March 11, 2024 5:20pm July 07, 2024 10:21am TAKE 1 TABLET BY MOUTH EVERY DAY [...] tablet (20 sources) Opioid Agonist Start: End: take 1 tablet by mouth twice daily Tramadol 50 mg tablet Discontinued 50 MG PO Twice daily November 23, 2023 4:25pm May 05, 2024 3:51pm Start: 11-15-2023 End: 11-22-2023 take 1 tablet by mouth once daily at bedtime Tramadol 50 mg tablet Discontinued 50 MG PO Daily at bedtime 12 08November 15, 2023 12:00am November 22, 2023 6:10pm valACYclovir 1000 mg oral tablet (11 sources) Herpesvirus Nucleoside Analog DNA Polymerase Inhibitor, Herpes Simplex Virus Nucleoside Analog DNA Polymerase Inhibitor, Herpes Zoster Virus Nucleoside Analog DNA Polymerase Inhibitor Start: 11-02-2023 End: 11-28-2023 Valacyclovir 1 gram tablet Discontinued 1000 MG PO Three times daily 22 12November 02, 2023 12:00am November 28, 2023 8:54am Start: 11-02-2023 End: 11-28-2023 take 1000 mg [...] 0 08-22-2023 Chronic Coagulation and hemorrhagic disorders (12 sources) Blood coagulation disorder; Translations: [Thrombocytopenic disorder] [...] [Essential hypertension] Onset: 2 Resolved: 4 Chronic Fluid and electrolyte disorders (4 sources) Hyperkalemia; Translations: [Hyperkalemia] 10-29-2024 Episodic Genitourinary symptoms and ill-defined conditions (15 sources) Proteinuria; Translations: [Asymptomatic microscopic hematuria] Onset: 4 12-01-2019 Episodic Hyperplasia of prostate (20 sources) Benign prostatic hyperplasia; Translations: [Benign prostatic hyperplasia without lower urinary tract symptoms] Onset: 0 Chronic Hypertension with complications and secondary hypertension (15 sources) Hypertensive chronic kidney disease with stage [...] 2 Episodic Other aftercare (2 sources) Other 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 (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; Translations: [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 DRUG THERAPY] Onset: 2 Episodic Other aftercare (3 sources) Long-term current use of 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; Translations: [Other fci (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] Episodic Other aftercare (4 sources) H/O: high risk medication; Translations: [Other 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 (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] Episodic Other and unspecified [...] Episodic Other diseases of kidney and ureters (8 sources) Secondary hyperparathyroidism; Translations: [Secondary hyperparathyroidism of renal origin] 05-05-2024 Chronic Other diseases of kidney and ureters (6 sources) Secondary hyperparathyroidism of renal origin; Translations: [...] of kidney 04-14-2024 Episodic Other diseases of kidney and ureters (4 sources) Acquired renal cystic disease; Translations: [Cyst of kidney, acquired] 11-25-2024 Episodic Comment on above: CT: 5.8cm renal cyst - 10/2024 Other diseases of veins and lymphatics (3 [...] Chronic Other nutritional; endocrine; and metabolic disorders (12 sources) Obesity; Translations: [Obesity, unspecified] 03-31-2024 Chronic Other nutritional; endocrine; and metabolic disorders (1 source) Other obesity due to excess calories Chronic Other nutritional; endocrine; and metabolic disorders (1 source) Body mass index (BMI) 30.0-30.9, adult Chronic Other nutritional; endocrine; and metabolic disorders (3 sources) Obesity, unspecified; Translations: [Obesity, unspecified] 03-31-2024 Chronic Other nutritional; endocrine; and metabolic disorders (7 sources) Hypomagnesemia; Translations: [Hypomagnesemia] 07-21-2024 Chronic Other nutritional; endocrine; and metabolic disorders (3 sources) Hypomagnesemia; Translations: [Disorders of magnesium metabolism] 07-21-2024 Chronic Other screening for suspected conditions (not mental disorders or infectious disease) (20 sources) Raised prostate specific antigen; Translations: [Elevated prostate specific antigen [PSA]] Onset: 2 Episodic Comment on above: PSA: 2.93 - 02/2022, 2.64 - 03/2023, 5.63- 03/2024 PSA: 2.93 - 02/2022, 2.64 - 03/2023, 5.63- 03/2024, 3.51 - 09/2024 PSA: 2.93 - 02/2022, 2.64 - 03/2023, 5.63- 03/2024, 3.01 - 09/2024 Other skin disorders (5 sources) Localized swelling, [...] and visceral atherosclerosis (3 sources) 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2 % [facility] Estimated glomerular filtrat ion rate (GFR) non- Americanon 10-24-2024 GFR/1.73 sq M.predicted among non-blacks MDRD (S/P/Bld) [Vol rate/Area] Estimated glomerular filtration rate (GFR) non- Low >=60 mL/min/1.73 m 2 [facility] GFR/1.73 sq M.predicted among non-blacks MDRD (S/P/Bld) [Vol rate/Area] 19 mL/min/{1.73_m2} Low >=60 mL/min/1.73 m 2 [facility] Laboratory - Chemistry and C hemistry - challengeon 10-24-2024 Creatinine [Mass/Vol] 3.25 mg/dL High 0.70-1.30 [facility] GFR/1.73 sq M.predicted MDRD (S/P/Bld) [Vol rate/Area] 23 mL/min/{1.73_m2} Low >=60 mL/min/1.73 m 2 [facility] Urea nitrogen [Mass/Vol] 45.0 mg/dL High 7.0-18.0 [facility] Urine Cytology ([facility])on 10-21-2024 Microscopic exam Cytology (U) [Interp] Diagnosis Info Invalid Interpretation Code [facility] Comment on above: Result Comment: A:Ur ine,Clean Catch:Bladder Wash Interpretation - Adequate cellularity for evaluation. CPT 49309 MicroScopic Description - Adequacy - Gross Description Site ID:A color Yellow fixative Alcohol Specimen designated Clean Catch received in alcohol preservative and labeled with the patient???s name, consists of 80ml slightly cloudy yellow fluid. Electronically signed by : on: 10/21/2024 13:22:38 Performed By: #### 1 [id number] #### [facility] [address] [place] [address] Erythrocyte distribution wid th Auto (RBC) [Ratio]on 10-20-2024 Erythrocyte distribution width (RBC) [Ratio] Erythrocyte distribution width [Ratio] by Automated count 11.0-15.0 [facility] Erythrocyte distribution width (RBC) [Ratio] 12.1 % 11.0-15.0 [facility] Estimated glomerular filtrat ion rate (GFR) non- Americanon 10-20-2024 GFR/1.73 sq M.predicted among non-blacks MDRD (S/P/Bld) [Vol rate/Area] Estimated glomerular filtration rate (GFR) non- Low >=60 mL/min/1.73 m 2 [facility] GFR/1.73 sq M.predicted among non-blacks MDRD (S/P/Bld) [Vol rate/Area] 17 mL/min/{1.73_m2} Low >=60 mL/min/1.73 m 2 [facility] Hematocrit Auto (Bld) [Volum e fraction]on 10-20-2024 Hematocrit (Bld) [Volume fraction] Hematocrit [Volume Fraction] of Blood by Automated count Low 42.0-54.0 [facility] Hematocrit (Bld) [Volume fraction] 34.7 % Low 42.0-54.0 [facility] Hemoglobin [Mass/volume] in Bloodon 10-20-2024 Hemoglobin (Bld) [Mass/Vol] Hemoglobin [Mass/volume] in Blood Low 14.0-18.0 [facility] Hemoglobin (Bld) [Mass/Vol] 11.9 g/dL Low 14.0-18.0 [facility] Iron binding capacity [Mass/ volume] in Serum or Plasmaon 10-20-2024 Iron binding capacity [Mass/Vol] Iron binding capacity [Mass/volume] in Serum or Plasma 250.0-450.0 [facility] Iron binding capacity [Mass/Vol] 257.0 ug/dL 250.0-450.0 [facility] Iron saturation [Mass Fracti on] in Serum or Plasmaon 10-20-2024 Iron saturation [Mass fraction] Iron saturation [Mass Fraction] in Serum or Plasma [facility] Iron saturation [Mass fraction] 22.6 % [facility] Laboratory - Chemistry and C hemistry - challengeon 10-20-2024 Albumin [Mass/Vol] 3.5 g/dL 3.4-5.0 [facility] Calcium [Mass/Vol] 8.9 mg/dL 8.5-10.1 [facility] Chloride [Moles/Vol] 105 mmol/L 98-107 [facility] CO2 [Moles/Vol] 24.1 mmol/L 21.0-32.0 [facility] Creatinine [Mass/Vol] 3.53 mg/dL High 0.70-1.30 [facility] Ferritin [Mass/Vol] 195.0 ng/mL 26.0-388.0 [facility] GFR/1.73 sq M.predicted MDRD (S/P/Bld) [Vol rate/Area] 21 mL/min/{1.73_m2} Low >=60 mL/min/1.73 m 2 [facility] Glucose [Mass/Vol] 192 mg/dL High 74-106 [facility] Iron [Mass/Vol] 58.0 ug/dL Low 65.0-175.0 [facility] Magnesium [Mass/Vol] 2.0 mg/dL 1.8-2.4 [facility] Potassium [Moles/Vol] 5.5 mmol/L High 3.5-5.1 [facility] Sodium [Moles/Vol] 138 mmol/L 136-145 [facility] Urate [Mass/Vol] 5.2 mg/dL 3.5-7.2 [facility] Urea nitrogen [Mass/Vol] 47.0 mg/dL High 7.0-18.0 [facility] Urea nitrogen/Creatinine [Mass ratio] 13.3 mg/mg [facility] Laboratory - Urinalysison Protein (U) [Mass/Vol] 124.3 mg/dL High <=11.9 [facility] Leukocytes [#/volume] correc yoseph for nucleated erythrocytes in Blood by Automated counon 10-20-2024 WBC corrected for nucl RBC Auto (Bld) [#/Vol] Leukocytes [#/volume] corrected for nucleated erythrocytes in Blood by Automated coun 4.0-11.0 [facility] WBC corrected for nucl RBC Auto (Bld) [#/Vol] 10.9 10 3/uL 4.0-11.0 [facility] MCH Auto (RBC) [Entitic mass ]on 10-20-2024 MCH (RBC) [Entitic mass] MCH [Entitic mass] by Automated count 25.9-34.0 [facility] MCH (RBC) [Entitic mass] 33.1 pg 25.9-34.0 [facility] MCHC Auto (RBC) [Mass/Vol]on 10-20-2024 MCHC (RBC) [Mass/Vol] MCHC [Mass/volume] by Automated count 29.9-35.2 [facility] MCHC (RBC) [Mass/Vol] 34.3 g/dL 29.9-35.2 [facility] MCV Auto (RBC) [Entitic vol] on 10-20-2024 MCV (RBC) [Entitic vol] MCV [Entitic vol ume] by Automated count High 80.0-94.0 [facility] MCV (RBC) [Entitic vol] 96.4 fL High 80.0-94.0 [facility] No Panel Informationon 10-20 25-Hydroxy Vitamin D Total 43.4 ng/mL [facility] Comment on above: <20 ng/mL Vit D defi cient20-<30 ng/mL Vit D [id number] ng/mL Vit D sufficient>100 ng/mL Potential Toxicity Parathyroid Hormone (Intact) 100 pg/mL Abnormal 15-65 [facility] Comment on above: Performed at: [facility] [employer] [address] [id number] Director: Karel Kaye PhD, Phone: [phone] Phosphorus Level 3.7 mg/dL 2.6-4.7 [facility] Urine Random Creatinine 119.43 mg/dL 20.0 0-300.0 0 [facility] Platelet mean volume Auto (B ld) [Entitic vol]on 10-20-2024 Platelet mean volume (Bld) [Entitic vol] Platelet mean volume [Entitic volume] in Blood by Automated count Low 9.5-13.5 [facility] Platelet mean volume (Bld) [Entitic vol] 8.9 fL Low 9.5-13.5 [facility] Platelets Auto (Bld) [#/Vol] on 10-20-2024 Platelets (Bld) [#/Vol] Platelets [#/vol ume] in Blood by Automated count 150-450 [facility] Platelets (d) [#/Vol] 157 10 3/uL 150-450 [facility] RBC Auto (Bld) [#/Vol]on RBC (Bld) [#/Vol] Erythrocytes [#/volu me] in Blood by Automated count Low 4.70-6.10 [facility] RBC (d) [#/Vol] 3.60 10 6/uL Low 4.70-6.10 [facility] Serum or plasma anion gap de terminationon 10-20-2024 Anion gap [Moles/Vol] Serum or plasma an ion gap determination [facility] Anion gap [Moles/Vol] 14.4 mmol/L [facility] Urine protein/creatinine rat ioon 10-20-2024 Protein/Creatinine (U) [Ratio] Urine protein/creatinine ratio [facility] Protein/Creatinine (U) [Ratio] 1.04 [facility] Urine Cytology ([facility])on 0 10-16-2024 Method of Extraction Bladder Urine Normal [facility] Comment on above: Performed By: #### 1 [id number] #### [facility] [address] Number of Jars 1 Invalid Interpretation Code [facility] Comment on above: Performed By: #### 1 [id number] #### [facility] [address] Specimen Clean Catch Normal [facility] Comment on above: Performed By: #### 1 [id number] #### [facility] [address] [place] [id number] Type of Service Technical Only Normal [facility] Comment on above: Performed By: #### 1 [id number] #### [facility] [address] [place] [address] Urology Office/Clinic Noteon 10-16-2024 Urology Office/Clinic Note [...] E&M of Est. Patient Moderate 30-39 Min 73167 Influenza immunization status assessed 1030F Medication list [...] Urnls Dip Stick Auto w/o Microscopy POC 80346 Orders: ciprofloxacin, 500 mg = 1 tab(s), Oral, Daily, Take 1 tablet the day before the procedure and 1 tablet after the procedure, # 2 tab(s), Refills(s) 0, Pharmacy: [facility]/pharmacy #[id number], 187, cm, 10/16/24 8:21:00 EDT, Height/Length Dosing, 104.3, kg, 10/16/24 8:21:00 EDT,... Follow-up With When Contact Information [facility] Additional Instructions: For procedure as scheduled. [...] Mother an (more content not included)... Normal [facility] Comment on above: Result Comment: Elec tronically Signed By: AILEEN DUKES PA-C\.br\Date and Time Signed: 10/16/24 10:11 EDT No Panel Informationon 10-08 Prostate Specific Antigen Total 3.01 ng/mL <=4.00 [facility] Ambulatory Visit Summaryon 0 10-06-2024 Ambulatory Visit Summary Ambulatory Visit Summary EUGENIO CREWS :1945 Visit Date:10/06/2024 Ambulatory Visit Instructions Your Diagnosis Elevated PSA Asymptomatic microscopic hematuria BPH with urinary obstruction Kidney stones Renal cyst Renal atrophy, left Tests Performed XR Abdomen 1 View -- Results Pending -- Please visit your patient portal for your results or contact your primary care physician. Your Care Team Attending Physician - Jenaro HANSEN MD Primary Care Physician - GERRY CHANG DO [...] [facility] [address] , [place] [phone] Medications What How Much When Instructions Unchanged [...] home: Medi (more content not included)... Normal [facility] URINALYSISOrdered By: SYSTEM SYSTEM on 10-06-2024 Bilirubin Ql (U) Negative Normal Negativemg/ dL [facility] UA Auto SS Clarity (U) Clear (10/06/24 10:41 AM) Normal Clear [facility] UA Auto SS Color (U) Light-Yellow 1 (10/06/24 10:41 AM) Normal Yellow [facility] UA Auto SS Comment on above: Interpretive Data: M icroscopic readings are only performed on those samples that meet specific criteria set forth by [facility]. Epithelial cells.squamous Auto (Urine sed) [#/Area] 0-2 graded/HPF Invalid Interpretation Code [facility] UA Auto SS Glucose Ql (U) 3+ mg/dL Invalid Interpretation Code Negativemg/ dL [facility] UA Auto SS Hemoglobin Auto test strip (U) [Mass/Vol] Trace mg/dL Invalid Interpretation Code Negativemg/ dL [facility] UA Auto SS Ketones Auto test strip Ql (U) Negative Normal Negativemg/ dL [facility] UA Auto SS Leukocyte esterase Auto test strip Ql (U) Negative Normal NegativeLeu /uL [facility] UA Auto SS Mucus Auto Ql (U) Trace graded/LPF Normal Negati vegra ded/LPF [facility] Auto SS Nitrite Auto test strip Ql (U) Negative Normal Negativemg/ dL [facility] UA Auto SS pH (U) 6.0 *NA* (10/06/24 10:41 AM) Invalid Interpretation Code 5.0 - 9.0 [facility] UA Auto SS Protein Ql (U) 1+ mg/dL Invalid Interpretation Code Negativemg/ dL [facility] UA Auto SS RBC Ql (U) 4-20 graded/HPF Invalid Interpretation Code 0-3graded/H PF [facility] UA Auto SS Specific gravity (U) [Rel density] 1.017 *NA* (10/06/24 10:41 AM) Invalid Interpretation Code 1.005 - 1.030 [facility] UA Auto SS Urobilinogen (U) [Mass/Vol] Negative Normal Negativemg/ dL [facility] UA Auto SS WBC Auto (Urine sed) [#/Area] 0-5 graded/HPF Normal 0-5graded/H PF [facility] UA Auto SS URINALYSISOrdered By: James Dao on 10-06-2024 UA Spec Desc Random Urine (10/06/24 10:41 AM) Normal [facility] UA Auto SS Urinalysis with Microon Bilirubin Ql (U) Negative Normal Negative [facility] Comment on above: Performed By: #### 4 [id number] #### [facility] [address] [place] [address] Clarity (U) Clear Normal Clear [facility] Comment on above: Performed By: #### 4 [id number] #### [facility] [address] [place] [address] Color (U) Light-Yellow Normal Yellow [facility] Comment on above: Result Comment: Micr oscopic readings are only performed on those samples that meet specific criteria set forth by [facility]. Performed By: #### 4 [id number] #### [facility] [address] [place] [address] Epithelial cells.squamous Auto (Urine sed) [#/Area] 0-2 Invalid Interpretation Code [facility] Comment on above: Performed By: #### 4 [id number] #### [facility] [address] [place] [address] Glucose Ql (U) 3+ mg/dL Abnormal Negative [facility] Comment on above: Performed By: #### 4 [id number] #### [facility] [address] [place] [address] Hemoglobin Auto test strip (U) [Mass/Vol] Trace Abnormal Negative [facility] Comment on above: Performed By: #### 4 [id number] #### [facility] [address] [place] [address] Ketones Auto test strip Ql (U) Negative Normal Negative [facility] Comment on above: Performed By: #### 4 [id number] #### [facility] [address] [place] [address] Leukocyte esterase Auto test strip Ql (U) Negative Normal Negative [facility] Comment on above: Performed By: #### 4 [id number] #### [facility] [address] [place] [address] Mucus Auto Ql (U) Trace Normal Negative [facility] Comment on above: Performed By: #### 4 [id number] #### [facility] [address] [place] [address] Nitrite Auto test strip Ql (U) Negative Normal Negative [facility] Comment on above: Performed By: #### 4 [id number] #### [facility] [address] [place] [address] pH (U) 6.0 [pH] Invalid Interpretation Code 5.0-9.0 [facility] Comment on above: Performed By: #### 4 [id number] #### [facility] [address] [place] [address] Protein Ql (U) 1+ mg/dL Abnormal Negative [facility] Comment on above: Performed By: #### 4 [id number] #### [facility] [address] [place] [address] RBC Ql (U) 4-20 Abnormal 0-3 [facility] Comment on above: Performed By: #### 4 [id number] #### [facility] [address] [place] [id number] Specific gravity (U) [Rel density] 1.017 Invalid Interpretation Code 1.005-1.030 [facility] Comment on above: Performed By: #### 4 [id number] #### [facility] [address] [place] [id number] Urobilinogen (U) [Mass/Vol] Negative Normal Negative [facility] Comment on above: Performed By: #### 4 [id number] #### [facility] [address] [place] [id number] WBC Auto (Urine sed) [#/Area] 0-5 Normal 0-5 [facility] Comment on above: Performed By: #### 4 [id number] #### [facility] [address] [place] [id number] Type of Urine collection method Random Urine Normal [facility] Comment on above: Performed By: #### 4 [id number] #### [facility] [address] [place] [id number] Urology Office/Clinic Noteon 10-06-2024 Urology Office/Clinic Note [...] URL [facility] [address], [place] [address] [phone] Additional Instructions: 6 mos w/ PSA and [...] Toradol ( (more content not included)... Normal [facility] Comment on above: Result Comment: Elec tronically Signed By: Jenaro HANSEN MD\.br\Date and Time Signed: 10/06/24 09:17 EDT\.br\Electronically Co-Signed By: Rochelle Hightower\.br\Date and Time Co-Signed: 10/06/24 09:16 EDT No Panel Informationon 09-29 Prostate Specific Antigen Total 3.51 ng/mL <=4.00 [facility] Albumin [Mass/volume] in Ser um or Plasmaon 07-21-2024 Albumin [Mass/Vol] Albumin [Mass/volume ] in Serum or Plasma 2.9-4.4 [facility] IgA [Mass/volume] in Serum o r Plasmaon 07-21-2024 IgA [Mass/Vol] IgA [Mass/volume] in Serum or Plasma 61-437 [facility] IgG [Mass/volume] in Serum o r Plasmaon 07-21-2024 IgG [Mass/Vol] IgG [Mass/volume] in Serum or Plasma 603-1613 [facility] IgM [Mass/volume] in Serum o r Plasmaon 07-21-2024 IgM [Mass/Vol] IgM [Mass/volume] in Serum or Plasma 15-143 [facility] Immunoglobulin light chains. kappa.free [Mass/volume] in Serumon 07-21-2024 Immunoglobulin light chains.kappa.free (S) [Mass/Vol] Immunoglobulin light chains.kappa.free [Mass/volume] in Serum Abnormal 3.3-19.4 [facility] Immunoglobulin light chains. kappa.free/Immunoglobulin light chains.lambda.free [Sean 07-21-2024 Immunoglobulin light chains.kappa.free/Immun oglobulin light chains.lambda.free (S) [Mass ratio] Immunoglobulin light chains.kappa.free/Immun oglobulin light chains.lambda.free [Mass 0.26-1.65 [facility] Comment on above: Performed at: [facility] [id number] [place], [place] [id number] Director: Karel Kaye PhD, Phone: [phone] Immunoglobulin light chains. lambda.free [Mass/volume] in Serum or Plasmaon 07-21-2024 Immunoglobulin light chains.lambda.free [Mass/Vol] Immunoglobulin light chains.lambda.free [Mass/volume] in Serum or Plasma Abnormal 5.7-26.3 [facility] No Panel Informationon 07-21 Protein Electrophoresis M-Petar Not Observed g/dL Not Observed [facility] Protein Electrophoresis Note Comment . [facility] Comment on above: Protein electrophore sis scan will follow via computer,mail, or retail loss prevention officer delivery. Protein [Mass/volume] in Ser um or Plasmaon 07-21-2024 Protein [Mass/Vol] Protein [Mass/volume ] in Serum or Plasma 6.0-8.5 [facility] Serum globulin measurement ( mass/volume)on 07-21-2024 Globulin (S) [Mass/Vol] Serum globulin measurement (mass/volume) 2.2-3.9 [facility] Serum or plasma albumin/glob ulin mass ratioon 07-21-2024 Albumin/Globulin [Mass ratio] Serum or plasma albumin/globulin mass ratio 0.7-1.7 [facility] Serum or plasma alpha 1 glob ulin measurement by electrophoresis (mass/volume)on 07-21-2024 Alpha 1 globulin Elph [Mass/Vol] Serum or plasma alpha 1 globulin measurement by electrophoresis (mass/volume) 0.0-0.4 [facility] Serum or plasma alpha 2 glob ulin measurement by electrophoresis (mass/volume)on 07-21-2024 Alpha 2 globulin Elph [Mass/Vol] Serum or plasma alpha 2 globulin measurement by electrophoresis (mass/volume) 0.4-1.0 [facility] Serum or plasma beta globuli n measurement by electrophoresis (mass/volume)on 07-21-2024 Beta globulin Elph [Mass/Vol] Serum or plasma beta globulin measurement by electrophoresis (mass/volume) 0.7-1.3 [facility] Serum or plasma gamma globul in measurement by electrophoresis (mass/volume)on 07-21-2024 Gamma globulin Elph [Mass/Vol] Serum or plasma gamma globulin measurement by electrophoresis (mass/volume) 0.4-1.8 [facility] Serum or plasma immunoelectr ophoresis interpretationon 07-21-2024 Interpretation IEP [Interp] Serum or plasma immunoelectrophoresis interpretation . [facility] Comment on above: Presence of monoclon al protein is unclear at this time. Suggestrepeat in 3 to 6 months if clinically indicated. Erythrocyte distribution wid th Auto (RBC) [Ratio]on 07-14-2024 Erythrocyte distribution width (RBC) [Ratio] Erythrocyte distribution width [Ratio] by Automated count 11.0-15.0 [facility] Estimated glomerular filtrat ion rate (GFR) non- Americanon 07-14-2024 GFR/1.73 sq M.predicted among non-blacks MDRD (S/P/Bld) [Vol rate/Area] Estimated glomerular filtration rate (GFR) non- Low >=60 mL/min/1.73 m 2 [facility] Hematocrit Auto (Bld) [Volum e fraction]on 07-14-2024 Hematocrit (Bld) [Volume fraction] Hematocrit [Volume Fraction] of Blood by Automated count Low 42.0-54.0 [facility] Hemoglobin [Mass/volume] in Bloodon 07-14-2024 Hemoglobin (Bld) [Mass/Vol] Hemoglobin [Mass/volume] in Blood Low 14.0-18.0 [facility] Iron binding capacity [Mass/ volume] in Serum or Plasmaon 07-14-2024 Iron binding capacity [Mass/Vol] Iron binding capacity [Mass/volume] in Serum or Plasma 250.0-450.0 [facility] Iron saturation [Mass Fracti on] in Serum or Plasmaon 07-14-2024 Iron saturation [Mass fraction] Iron saturation [Mass Fraction] in Serum or Plasma [facility] Laboratory - Chemistry and C hemistry - challengeon 07-14-2024 Bilirubin Ql (U) Negative NEGATIVE [facility] Glucose (U) [Mass/Vol] 500 mg/dL Abnormal NEGATIVE [facility] Ketones Ql (U) Negative NEGATIVE [facility] pH (U) 6.0 [pH] 5.0-9.0 [facility] Specific gravity (U) [Rel density] 1.025 1.005-1.025 [facility] Urobilinogen Qn (U) 0.2 {Bisi'U}/dL 0.2-1.0 [facility] Albumin [Mass/Vol] 3.6 g/dL 3.4-5.0 [facility] Calcium [Mass/Vol] 8.4 mg/dL Low 8.5-10.1 [facility] Chloride [Moles/Vol] 106 mmol/L 98-107 [facility] CO2 [Moles/Vol] 25.5 mmol/L 21.0-32.0 [facility] Creatinine [Mass/Vol] 3.27 mg/dL High 0.70-1.30 [facility] Ferritin [Mass/Vol] 230.0 ng/mL 26.0-388.0 [facility] GFR/1.73 sq M.predicted MDRD (S/P/Bld) [Vol rate/Area] 22 mL/min/{1.73_m2} Low >=60 mL/min/1.73 m 2 [facility] Glucose [Mass/Vol] 141 mg/dL High 74-106 [facility] Iron [Mass/Vol] 82.0 ug/dL 65.0-175.0 [facility] Magnesium [Mass/Vol] 1.7 mg/dL Low 1.8-2.4 [facility] Potassium [Moles/Vol] 4.7 mmol/L 3.5-5.1 [facility] Sodium [Moles/Vol] 142 mmol/L 136-145 [facility] Urate [Mass/Vol] 5.4 mg/dL 3.5-7.2 [facility] Urea nitrogen [Mass/Vol] 46.0 mg/dL High 7.0-18.0 [facility] Urea nitrogen/Creatinine [Mass ratio] 14.1 mg/mg [facility] Laboratory - Specimen inform ationon 07-14-2024 Appearance (U) CLEAR CLEAR [facility] Color (U) YELLOW YELLOW [facility] Laboratory - Urinalysison Leukocyte esterase Test strip Ql (U) Negative NEGATIVE [facility] Mucus Ql (Urine sed) TRACE Abnormal NONE SEEN [facility] Nitrite Ql (U) Negative NEGATIVE [facility] Protein (U) [Mass/Vol] 101.7 mg/dL High <=11.9 [facility] Protein Ql (U) 100 mg/dL Abnormal NEG/TRACE [facility] Leukocytes [#/volume] correc yoseph for nucleated erythrocytes in Blood by Automated counon 07-14-2024 WBC corrected for nucl RBC Auto (Bld) [#/Vol] Leukocytes [#/volume] corrected for nucleated erythrocytes in Blood by Automated coun 4.0-11.0 [facility] MCH Auto (RBC) [Entitic mass ]on 07-14-2024 MCH (RBC) [Entitic mass] MCH [Entitic mass] by Automated count 25.9-34.0 [facility] MCHC Auto (RBC) [Mass/Vol]on 07-14-2024 MCHC (RBC) [Mass/Vol] MCHC [Mass/volume] by Automated count 29.9-35.2 [facility] MCV Auto (RBC) [Entitic vol] on 07-14-2024 MCV (RBC) [Entitic vol] MCV [Entitic vol ume] by Automated count High 80.0-94.0 [facility] No Panel Informationon 07-14 Urine Bacteria NONE SEEN #/HPF NONE SEEN [facility] Urine Occult Blood TRACE-I NEGATIVE [facility] Urine Random Creatinine 129.70 mg/dL 20.0 0-300.0 0 [facility] Urine RBC 0-2 #/HPF 0-2 [facility] Urine Squamous Epithelial Cells FEW #/LPF Abnormal NONE/RARE [facility] Urine WBC 0-2 #/HPF Abnormal NONE SEEN [facility] 25-Hydroxy Vitamin D Total 35.2 ng/mL [facility] Comment on above: <20 ng/mL Vit D defi cient20-<30 ng/mL Vit D -499 ng/mL Vit D sufficient>100 ng/mL Potential Toxicity Parathyroid Hormone (Intact) 175 pg/mL Abnormal 15-65 [facility] Comment on above: Performed at: [address] [id number] Director: Karel Kaye PhD, Phone: [phone] Phosphorus Level 3.9 mg/dL 2.6-4.7 [facility] Platelet mean volume Auto (B ld) [Entitic vol]on 07-14-2024 Platelet mean volume (Bld) [Entitic vol] Platelet mean volume [Entitic volume] in Blood by Automated count Low 9.5-13.5 [facility] Platelets Auto (Bld) [#/Vol] on 07-14-2024 Platelets (Bld) [#/Vol] Platelets [#/vol ume] in Blood by Automated count Low 150-450 [facility] RBC Auto (Bld) [#/Vol]on RBC (Bld) [#/Vol] Erythrocytes [#/volu me] in Blood by Automated count Low 4.70-6.10 [facility] Serum or plasma anion gap de terminationon 07-14-2024 Anion gap [Moles/Vol] Serum or plasma an ion gap determination [facility] Urine protein/creatinine rat ioon 07-14-2024 Protein/Creatinine (U) [Ratio] Urine protein/creatinine ratio [facility] Albumin [Mass/volume] in Ser um or Plasmaon 04-11-2024 Albumin [Mass/Vol] Albumin [Mass/volume ] in Serum or Plasma 2.9-4.4 [facility] Hepatitis B virus surface Ab [Presence] in Serumon 04-11-2024 HBV surface Ab Ql (S) Hepatitis B virus surface Ab [Presence] in Serum Abnormal Immunity>10 [facility] Comment on above: Status of Immunity A nti-HBs Level Inconsistent with Immunity 0.0 - 10.0Consistent with Immunity >10.0 Hepatitis B virus surface Ag [Presence] in Serum or Plasma by Immunoassayon 04-11-2024 HBV surface Ag IA Ql Hepatitis B virus surface Ag [Presence] in Serum or Plasma by Immunoassay Negative [facility] IgA [Mass/volume] in Serum o r Plasmaon 04-11-2024 IgA [Mass/Vol] IgA [Mass/volume] in Serum or Plasma 61-437 [facility] IgG [Mass/volume] in Serum o r Plasmaon 04-11-2024 IgG [Mass/Vol] IgG [Mass/volume] in Serum or Plasma 603-1613 [facility] IgM [Mass/volume] in Serum o r Plasmaon 04-11-2024 IgM [Mass/Vol] IgM [Mass/volume] in Serum or Plasma 15-143 [facility] Immunoglobulin light chains. kappa.free [Mass/volume] in Serumon 04-11-2024 Immunoglobulin light chains.kappa.free (S) [Mass/Vol] Immunoglobulin light chains.kappa.free [Mass/volume] in Serum Abnormal 3.3-19.4 [facility] Immunoglobulin light chains. kappa.free/Immunoglobulin light chains.lambda.free [Sean 04-11-2024 Immunoglobulin light chains.kappa.free/Immun oglobulin light chains.lambda.free (S) [Mass ratio] Immunoglobulin light chains.kappa.free/Immun oglobulin light chains.lambda.free [Mass 0.26-1.65 [facility] Comment on above: Performed at: [email or web address] [place], [place] [id number] Director: Karel Kaye PhD, Phone: [phone] Immunoglobulin light chains. lambda.free [Mass/volume] in Serum or Plasmaon 04-11-2024 Immunoglobulin light chains.lambda.free [Mass/Vol] Immunoglobulin light chains.lambda.free [Mass/volume] in Serum or Plasma Abnormal 5.7-26.3 [facility] Laboratory - Urinalysison Protein (U) [Mass/Vol] 104.8 mg/dL High <=11.9 [facility] No Panel Informationon 04-11 25-Hydroxy Vitamin D Total 36.9 ng/mL [facility] Comment on above: <20 ng/mL Vit D defi cient20-<30 ng/mL Vit D [id number] ng/mL Vit D sufficient>100 ng/mL Potential Toxicity Hepatitis B Core Total Antibody Negative Negative [facility] Comment on above: Performed at: [email or web address] [place], [place] [id number] Director: Karel Kaye PhD, Phone: [phone] Protein Electrophoresis M-Petar Not Observed g/dL Not Observed [facility] Protein Electrophoresis Note Comment . [facility] Comment on above: Protein electrophore sis scan will follow via computer,mail, or retail loss prevention officer delivery. Urine Random Creatinine 134.54 mg/dL 20.0 0-300.0 0 [facility] Protein [Mass/volume] in Ser um or Plasmaon 04-11-2024 Protein [Mass/Vol] Protein [Mass/volume ] in Serum or Plasma 6.0-8.5 [facility] Serum globulin measurement ( mass/volume)on 04-11-2024 Globulin (S) [Mass/Vol] Serum globulin measurement (mass/volume) 2.2-3.9 [facility] Serum or plasma albumin/glob ulin mass ratioon 04-11-2024 Albumin/Globulin [Mass ratio] Serum or plasma albumin/globulin mass ratio 0.7-1.7 [facility] Serum or plasma alpha 1 glob ulin measurement by electrophoresis (mass/volume)on 04-11-2024 Alpha 1 globulin Elph [Mass/Vol] Serum or plasma alpha 1 globulin measurement by electrophoresis (mass/volume) 0.0-0.4 [facility] Serum or plasma alpha 2 glob ulin measurement by electrophoresis (mass/volume)on 04-11-2024 Alpha 2 globulin Elph [Mass/Vol] Serum or plasma alpha 2 globulin measurement by electrophoresis (mass/volume) 0.4-1.0 [facility] Serum or plasma beta globuli n measurement by electrophoresis (mass/volume)on 04-11-2024 Beta globulin Elph [Mass/Vol] Serum or plasma beta globulin measurement by electrophoresis (mass/volume) 0.7-1.3 [facility] Serum or plasma gamma globul in measurement by electrophoresis (mass/volume)on 04-11-2024 Gamma globulin Elph [Mass/Vol] Serum or plasma gamma globulin measurement by electrophoresis (mass/volume) 0.4-1.8 [facility] Serum or plasma immunoelectr ophoresis interpretationon 04-11-2024 Interpretation IEP [Interp] Serum or plasma immunoelectrophoresis interpretation . [facility] Comment on above: Presence of monoclon al protein is unclear at this time. Suggestrepeat in 3 to 6 months if clinically indicated. Urine protein/creatinine rat ioon 04-11-2024 Protein/Creatinine (U) [Ratio] Urine protein/creatinine ratio [facility] Basophils Auto (Bld) [#/Vol] on 04-01-2024 Basophils (Bld) [#/Vol] Automated basoph il count 0.0-0.1 [facility] Basophils/100 WBC Auto (Bld) on 04-01-2024 Basophils/100 WBC (Bld) Automated basophil % 0. 2-2.0 [facility] Cholesterol in LDL Calc [Mas s/Vol]on 04-01-2024 Cholesterol in LDL [Mass/Vol] Cholesterol in LDL [Mass/volume] in Serum or Plasma by calculation [facility] Comment on above: <100 mg/dl [id number] 0-129 mg/dl NEAR OR ABOVE [id number] mg/dl BORDERLINE [id number] mg/dl HIGH>190 mg/dl VERY HIGH Cholesterol in VLDL Calc [Ma ss/Vol]on 04-01-2024 Cholesterol in VLDL [Mass/Vol] Cholesterol in VLDL [Mass/volume] in Serum or Plasma by calculation [facility] Eosinophils/100 WBC Auto (Bl d)on 04-01-2024 Eosinophils/100 WBC (Bld) Automated eosinophil % 0.9-7.0 [facility] Erythrocyte distribution wid th Auto (RBC) [Ratio]on 04-01-2024 Erythrocyte distribution width (RBC) [Ratio] Erythrocyte distribution width [Ratio] by Automated count 11.0-15.0 [facility] Estimated glomerular filtrat ion rate (GFR) non- Americanon 04-01-2024 GFR/1.73 sq M.predicted among non-blacks MDRD (S/P/Bld) [Vol rate/Area] Estimated glomerular filtration rate (GFR) non- Low >=60 mL/min/1.73 m 2 [facility] Globulin Calc (S) [Mass/Vol] on 04-01-2024 Globulin (S) [Mass/Vol] Serum globulin measurement by calculation (mass/volume) [facility] Hematocrit Auto (Bld) [Volum e fraction]on 04-01-2024 Hematocrit (Bld) [Volume fraction] Hematocrit [Volume Fraction] of Blood by Automated count Low 42.0-54.0 [facility] Hemoglobin [Mass/volume] in Bloodon 04-01-2024 Hemoglobin (Bld) [Mass/Vol] Hemoglobin [Mass/volume] in Blood Low 14.0-18.0 [facility] Laboratory - Chemistry and C hemistry - challengeon 04-01-2024 Albumin [Mass/Vol] 3.2 g/dL Low 3.4-5.0 [facility] ALP [Catalytic activity/Vol] 92 U/L 46-116 [facility] ALT [Catalytic activity/Vol] 14 U/L Low 16-63 [facility] AST [Catalytic activity/Vol] 12 U/L Low 15-37 [facility] Bilirubin [Mass/Vol] 0.4 mg/dL 0.2-1.0 [facility] Calcium [Mass/Vol] 8.4 mg/dL Low 8.5-10.1 [facility] Chloride [Moles/Vol] 109 mmol/L High 98-107 [facility] Cholesterol [Mass/Vol] 103 mg/dL <=200 [facility] Cholesterol in HDL [Mass/Vol] 36 mg/dL Low 40-60 [facility] Comment on above: > or =60 mg/dl - LOW CARDIOVASCULAR RISK<40 mg/dl - HIGH CARDIOVASCULAR RISK CO2 [Moles/Vol] 21.1 mmol/L 21.0-32.0 [facility] Creatinine [Mass/Vol] 3.15 mg/dL High 0.70-1.30 [facility] GFR/1.73 sq M.predicted MDRD (S/P/Bld) [Vol rate/Area] 23 mL/min/{1.73_m2} Low >=60 mL/min/1.73 m 2 [facility] Glucose [Mass/Vol] 151 mg/dL High 74-106 [facility] Potassium [Moles/Vol] 4.9 mmol/L 3.5-5.1 [facility] Protein [Mass/Vol] 6.5 g/dL 6.4-8.2 [facility] Sodium [Moles/Vol] 142 mmol/L 136-145 [facility] Triglyceride [Mass/Vol] 170 mg/dL High <=150 [facility] Urea nitrogen [Mass/Vol] 48.0 mg/dL High 7.0-18.0 [facility] Urea nitrogen/Creatinine [Mass ratio] 15.2 mg/mg [facility] Laboratory - Hematology and Cell countson 04-01-2024 Immature granulocytes/100 WBC (Bld) 0.3 % 0.0-0.5 [facility] Laboratory - Urinalysison Protein (U) [Mass/Vol] 94.1 mg/dL High <=11.9 [facility] Leukocytes [#/volume] correc yoseph for nucleated erythrocytes in Blood by Automated counon 04-01-2024 WBC corrected for nucl RBC Auto (Bld) [#/Vol] Leukocytes [#/volume] corrected for nucleated erythrocytes in Blood by Automated coun 4.0-11.0 [facility] Lymphocytes Auto (Bld) [#/Vo l]on 04-01-2024 Lymphocytes (Bld) [#/Vol] Lymphocytes [#/volume] in Blood by Automated count Low 1.2-3.8 [facility] Lymphocytes/100 WBC Auto (Bl d)on 04-01-2024 Lymphocytes/100 WBC (Bld) Lymphocytes/100 leukocytes in Blood by Automated count Low 20.5-60.0 [facility] MCH Auto (RBC) [Entitic mass ]on 04-01-2024 MCH (RBC) [Entitic mass] MCH [Entitic mass] by Automated count 25.9-34.0 [facility] MCHC Auto (RBC) [Mass/Vol]on 04-01-2024 MCHC (RBC) [Mass/Vol] MCHC [Mass/volume] by Automated count 29.9-35.2 [facility] MCV Auto (RBC) [Entitic vol] on 04-01-2024 MCV (RBC) [Entitic vol] MCV [Entitic vol ume] by Automated count High 80.0-94.0 [facility] Monocytes Auto (Bld) [#/Vol] on 04-01-2024 Monocytes (Bld) [#/Vol] Automated blood monocyte count 0.3-0.8 [facility] Monocytes/100 WBC Auto (Bld) on 04-01-2024 Monocytes/100 WBC (Bld) Automated monocyte % 1. 7-12.0 [facility] Neutrophils Auto (Bld) [#/Vo l]on 04-01-2024 Neutrophils (Bld) [#/Vol] Neutrophils [#/volume] in Blood by Automated count 1.4-6.5 [facility] Neutrophils/100 WBC Auto (Bl d)on 04-01-2024 Neutrophils/100 WBC (Bld) Automated neutrophil % High 43.0-75.0 [facility] No Panel Informationon 04-01 Eosinophils # (Auto) 0.2 10 3/uL 0.0-0.7 [facility] Immature Granulocyte # (Auto) 0.02 10 3/uL 0.00-0.03 [facility] Prostate Specific Antigen Screen 5.63 ng/mL High <=4.00 [facility] Urine Random Creatinine 103.93 mg/dL 20.0 0-300.0 0 [facility] Platelet mean volume Auto (B ld) [Entitic vol]on 04-01-2024 Platelet mean volume (Bld) [Entitic vol] Platelet mean volume [Entitic volume] in Blood by Automated count Low 9.5-13.5 [facility] Platelets Auto (Bld) [#/Vol] on 04-01-2024 Platelets (Bld) [#/Vol] Platelets [#/vol ume] in Blood by Automated count Low 150-450 [facility] RBC Auto (Bld) [#/Vol]on RBC (Bld) [#/Vol] Erythrocytes [#/volu me] in Blood by Automated count Low 4.70-6.10 [facility] Serum or plasma albumin/glob ulin mass ratioon 04-01-2024 Albumin/Globulin [Mass ratio] Serum or plasma albumin/globulin mass ratio [facility] Serum or plasma anion gap de terminationon 04-01-2024 Anion gap [Moles/Vol] Serum or plasma an ion gap determination [facility] Serum or plasma total choles terol/high density lipoprotein (HDL) cholesterol mass tawanna 04-01-2024 Cholesterol.total/Bertha sterol in HDL [Mass ratio] Serum or plasma total cholesterol/high density lipoprotein (HDL) cholesterol mass rat [facility] Comment on above: 3.3 - 4.4 LOW RISK4. 4 - 7.1 AVERAGE RISK7.1 - 11.0 MODERATE RISK>11.0 HIGH RISK Urine protein/creatinine rat ioon 04-01-2024 Protein/Creatinine (U) [Ratio] Urine protein/creatinine ratio [facility] No Panel Informationon 03-21 [facility] Glucose mean value [Mass/vol ume] in Blood Estimated from glycated hemoglobinon 12-19-2023 Average glucose Estimated from glycated hemoglobin (Bld) [Mass/Vol] 169 mg/dL [facility] Laboratory - Hematology and Cell countson 12-19-2023 HbA1c (Bld) [Mass fraction] 7.5 % High 4.5-6.2 [facility] Comment on above: ADA RECOMMENDED [...] [facility] Comment on above: Result Comment: [place] Glucose Reference Range is dependent on time and content of last meal. Glucose of more than 200 mg/dL in a nonstressed, ambulatory subject supports the diagnosis of Diabetes Mellitus. PERFORMED BY: [facility] [address] [id number] PATHOLOGIST OUTER DIAMETER [employer] AMANDA ZAMORA M.D. Performed By: #### G LULS #### Point of Care testing , Commemt1 Glu2: Cleaned Meter Normal [facility] Comment on above: Result Comment: PERF ORMED BY: [facility] [address] [id number] PATHOLOGIST OUTER DIAMETER [employer] AMANDA ZAMORA M.D. Performed By: #### G LULS #### Point of Care testing , Glucose [Mass/Vol] 147 mg/dL Normal [facility] Comment on above: Result Comment: [place] Glucose Reference Range is dependent on time and content of last meal. Glucose of more than 200 mg/dL in a nonstressed, ambulatory subject supports the diagnosis of Diabetes Mellitus. Performed By: #### G LULS #### Point of Care testing , Von 08-28-2023 L Specimen: [id number] Received: 08/28/23 Status: SOUMiller Req Num: [id number] Spec Type: Surgical Subm Dr: Gerry Nelson DO Tissues: A Skin-Other than Cyst, tag, debridement or plastic repair (SCALP) Procedures: HE/7, Gross/Micro L4, Frozen Section, Froz Sec, Add/4, FS HE/10 Age/ Patient Sex Location Account Attending Physician Eugenio Crews 78/M [place] [id number] Gerry Nelson DO SPEC NUM: [id number] RECD: 08/28/23 STATUS: MANJIT WILSON NUM: [id number] ANJALI: 08/28/[address]: Gerry Nelson DO ENTERED: 08/28/23 [facility] DR: SPEC TYPE: Surgical DEPT: S [...] A2 - Frozen section remnant?FSA 2 Specimen: [id number] Received: 08/28/23 Status: MANJIT Tiana Num: [id number] Spec Type: Surgical Subm Dr: Gerry Nelson,DO Tissues: A Skin-Other than Cyst, tag, debridement or plastic repair (SCALP) Procedures: /, Gross/Micro L4, Frozen Section, Lu [place]oul[place], Add/4, FS Patient: Eugenio Crews [id number] (Continued) Specimen: [id number] Received: 08/28/23 (Continued) Gross Description (Continued) Signed (signature on file) Mel Proctor MD 08/29/23 1356 Specimen: [id number] Received: 08/28/23 Status: MANJIT Tiana Num: [id number] Spec Type: Surgical Subm Dr: Gerry Nelson DO Tissues: A Skin-Other than Cyst, tag, debridement or plastic repair (SCALP) Procedures: HE/, Gross/Micro L4, Frozen Section, Lu [place], Add/4, FS / Patient: Eugenio Crews [id number] (Continued) Specimen: [id number] Received: 08/28/23 (Continued) Gross Description (Continued) A3 - Frozen section remnant?FSA 3 A4 - Frozen section remnant?FSA 4 A5 - Frozen section remnant?FSA 5 A6 - 12:00 half of specimen A7 - 6:00 half of specimen Intraoperative Diagnosis A. Recurrent squamous cell carcinoma of scalp: - Margins are negative for malignancy. Reported by Dr. Proctor at 2:05 PM 08/28/2023 CPT Codes 14711, 73371, [id number] Specimen: [id number] Received: 08/28/23 Status: MANJIT Montiel Num: [id number] Spec Type: Surgical Subm Dr: Gerry Nelson DO Tissues: A Skin-Other than Cyst, tag, debridement or plastic repair (SCALP) Procedures: HE/, Gross/Micro L4, Frozen Section, Lu [place]oul[place], Add/, FS / Patient: Eugenio Crews [id number] (Continued) Signed (signature on file)___ (more content not included)... Normal [facility] No Panel InformationOrdered By: Gerry Nelson on 08-28-2023 Bedside Glucose Comment Glu2: cleaned meter [facility] Basic Metabolic Panelon 08-03 Anion gap [Moles/Vol] 12.7 mmol/L Normal 6.0-15.0 [facility] Comment on above: Performed By: #### B MP, CBC #### [facility] [address] Calcium [Mass/Vol] 8.7 mg/dL Normal 8.6-10.3 [facility] Comment on above: Result Comment: PERF ORMED BY: [place] [address] PATHOLOGIST OUTER DIAMETER [employer] AMANDA ZAMORA M.D. Performed By: #### B MP, CBC #### [facility] [address] [place] [address] [place] Chloride [Moles/Vol] 109 mmol/L High 98-107 [facility] Comment on above: Performed By: #### B MP, CBC #### [facility] [address] [place] [address] [place] CO2 [Moles/Vol] 22.0 mmol/L Normal 21.0-31.0 [facility] Comment on above: Performed By: #### B MP, CBC #### [facility] [address] [place] [address] [place] Creatinine [Mass/Vol] 2.90 mg/dL High 0.70-1.30 [facility] Comment on above: Performed By: #### B MP, CBC #### [facility] [address] [place] [address] [place] GFR/1.73 sq M.predicted MDRD (S/P/Bld) [Vol rate/Area] 21.738 mL/min/{1.73_m2} Normal [facility] Comment on above: Performed By: #### B MP, CBC #### [facility] [address] Glucose [Mass/Vol] 227 mg/dL High 70-100 [facility] Comment on above: Result Comment: [facility] Glucose Reference Range is dependent on time and content of last meal. Glucose of more than 200 mg/dL in a nonstressed, ambulatory subject supports the diagnosis of Diabetes Mellitus. ADA recommended reference range Performed By: #### B MP, CBC #### [facility] [address] [place] [address] [place] Potassium [Moles/Vol] 4.7 mmol/L Normal 3.5-5.1 [facility] Comment on above: Performed By: #### B MP, CBC #### [facility] [address] [place] [address] [place] Sodium [Moles/Vol] 139 mmol/L Normal 136-145 [facility] Comment on above: Performed By: #### B MP, CBC #### [facility] [address] [place] [address] [place] Urea nitrogen [Mass/Vol] 43 mg/dL High 7-25 [facility] Comment on above: Performed By: #### B MP, CBC #### [facility] [address] [place] [address] [place] Basophils Auto (Bld) [#/Vol] Ordered By: Gerry Nelson on 08-22-2023 Basophils (Bld) [#/Vol] 0.0 10*3/uL 0.0-0.2 [facility] Basophils/100 WBC Auto (Bld) Ordered By: Gerry Nelson on 08-22-2023 Basophils/100 WBC (Bld) 0.4 % . [facility] Calcium [Mass/volume] in Ser um or PlasmaOrdered By: Gerry Nelson on 08-22-2023 Calcium [Mass/Vol] 8.7 mg/dL 8.6-10.3 [facility] Carbon dioxide, total [Moles /volume] in Serum or PlasmaOrdered By: Gerry Nelson on 08-22-2023 CO2 [Moles/Vol] 22.0 mmol/L 21.0-31.0 [facility] Chloride [Moles/volume] in S hai or PlasmaOrdered By: Gerry Nelson on 08-22-2023 Chloride [Moles/Vol] 109 mmol/L 98-107 [facility] Complete Blood Count Auto Di ffon 08-22-2023 Basophils (Bld) [#/Vol] 0.0 10*3/uL Normal 0.0-0.2 [facility] Comment on above: Result Comment: PERF ORMED BY: [facility] [address] [place] [address] PATHOLOGIST OUTER DIAM[employer] AMANDA ZAMORA M.D. Performed By: #### B MP, CBC #### [facility] [address] [place] [address] [place] Basophils/100 WBC (Bld) 0.4 % Normal . [facility] Comment on above: Performed By: #### B MP, CBC #### [facility] [address] [place] [address] [place] Eosinophils (Bld) [#/Vol] 0.1 10*3/uL Normal 0.0-0.45 [facility] Comment on above: Performed By: #### B MP, CBC #### [facility] [address] [place] [address] [place] Eosinophils/100 WBC (Bld) 2.4 % Normal . [facility] Comment on above: Performed By: #### B MP, CBC #### [facility] [address] Erythrocyte distribution width (RBC) [Ratio] 12.7 % Normal 12.0-14.8 [facility] Comment on above: Performed By: #### B MP, CBC #### [facility] [address] Hematocrit (Bld) [Volume fraction] 33.6 % Low 38.8-50.0 [facility] Comment on above: Performed By: #### B MP, CBC #### [facility] [address] Hemoglobin (Bld) [Mass/Vol] 11.4 g/dL Low 13.0-17.0 [facility] Comment on above: Performed By: #### B MP, CBC #### [facility] [address] Lymphocytes (Bld) [#/Vol] 0.9 10*3/uL Low 1.00-4.8 [facility] Comment on above: Performed By: #### B MP, CBC #### [address] Lymphocytes/100 WBC (Bld) 14.3 % Normal . [facility] Comment on above: Performed By: #### B MP, CBC #### [address] MCH (RBC) [Entitic mass] 32.7 pg Normal 27.5-35.2 [facility] Comment on above: Performed By: #### B MP, CBC #### [address] MCV (RBC) [Entitic vol] 96.1 fL Normal 83.5-101 [facility] Comment on above: Performed By: #### B MP, CBC #### [address] Mean Corpuscular HGB Conc 34.0 g/dL Normal 32.5-35.6 [facility] Comment on above: Performed By: #### B MP, CBC #### [address] Monocytes (Bld) [#/Vol] 0.5 10*3/uL Normal 0.0-0.8 [facility] Comment on above: Performed By: #### B MP, CBC #### [facility] [address] [place] [address] [place] Monocytes/100 WBC (Bld) 7.4 % Normal . [facility] Comment on above: Performed By: #### B MP, CBC #### [facility] [address] Neutrophils (Bld) [#/Vol] 4.7 10*3/uL Normal 1.8-7.7 [facility] Comment on above: Performed By: #### B MP, CBC #### [facility] [address] Neutrophils/100 WBC (Bld) 75.5 % Normal . [facility] Comment on above: Performed By: #### B MP, CBC #### [facility] [address] NRBC% 0.0 /100{WBC} Normal 0-0.5 [facility] Comment on above: Performed By: #### B MP, CBC #### [facility] [address] Platelet mean volume (Bld) [Entitic vol] 7.2 fL Normal 6.6-10.1 [facility] Comment on above: Performed By: #### B MP, CBC #### [facility] [address] [place] [address] [place] Platelets (Bld) [#/Vol] 165 10*3/uL Normal 150-450 [facility] Comment on above: Performed By: #### B MP, CBC #### [facility] [address] [place] [address] [place] RBC (Bld) [#/Vol] 3.50 10*6/uL Low 3.90-5.60 [facility] Comment on above: Performed By: #### B MP, CBC #### [facility] [address] [place] [address] [place] WBC (Bld) [#/Vol] 6.2 10*3/uL Normal 4.1-10.5 [facility] Comment on above: Performed By: #### B MP, CBC #### [facility] [address] Creatinine [Mass/volume] in Serum or PlasmaOrdered By: Gerry Nelson on 08-22-2023 Creatinine [Mass/Vol] 2.90 mg/dL 0.70-1.30 [facility] ECG 12 lead ECGon 08-22-2023 ECG 12 lead ECG [facility] [address] [place] [address] Electrocardiograph Report Signed Patient: Eugenio Crews MR#: [id number] : 1945 Acct:[id number] Age/Sex: 78 / M ADM Date: 08/22/23 Loc: Room: Type: [facility] Attending Dr: Gerry Nelson DO [...] previous ECGs available Confirmed by Joni Marrero ([id number]) on 08/23/2023 11:21:57 AM Referred By: NOHEMI Electronically Signed By:Joni Marrero Transcribed By: ERNIE Signed By Joni Marrero MD 08/23/23 1122 Normal [facility] Eosinophils Auto (Bld) [#/Vo l]Ordered By: Gerry Nelson on 08-22-2023 Eosinophils (Bld) [#/Vol] 0.1 10*3/uL 0.0-0.45 [facility] Eosinophils/100 WBC Auto (Bl d)Ordered By: Gerry Nelson on 08-22-2023 Eosinophils/100 WBC (Bld) 2.4 % . [facility] Erythrocyte distribution wid th Auto (RBC) [Ratio]Ordered By: Gerry Nelson on 08-22-2023 Erythrocyte distribution width (RBC) [Ratio] 12.7 % 12.0-14.8 [facility] Glucose [Mass/volume] in Ser um [...] Hematocrit (Bld) [Volume fraction] 33.6 % 38.8-50.0 [facility] Hemoglobin [Mass/volume] in BloodOrdered By: Gerry Nelson on 08-22-2023 Hemoglobin (Bld) [Mass/Vol] 11.4 g/dL 13.0-17.0 [facility] Leukocytes [#/volume] correc yoseph for nucleated erythrocytes in Blood by Automated counOrdered By: Gerry Nelson on 08-22-2023 WBC corrected for nucl RBC Auto (Bld) [#/Vol] 6.2 10*3/uL 4.1-10.5 [facility] Lymphocytes Auto (Bld) [#/Vo l]Ordered By: Gerry Nelson on 08-22-2023 Lymphocytes (Bld) [#/Vol] 0.9 10*3/uL 1.00-4.8 [facility] Lymphocytes/100 WBC Auto (Bl d)Ordered By: Gerry Nelson on 08-22-2023 Lymphocytes/100 WBC (Bld) 14.3 % . [facility] MCH Auto (RBC) [Entitic mass ]Ordered By: Gerry Nelson on 08-22-2023 MCH (RBC) [Entitic mass] 32.7 pg 27.5-35.2 [facility] MCHC Auto (RBC) [Mass/Vol]Or dered By: Gerry Nelson on 08-22-2023 MCHC (RBC) [Mass/Vol] 34.0 g/dL 32.5-35.6 [facility] MCV Auto (RBC) [Entitic vol] Ordered By: Gerry Nelson on 08-22-2023 MCV (RBC) [Entitic vol] 96.1 fL 83.5-101 [facility] Monocytes Auto (Bld) [#/Vol] Ordered By: Gerry Nelson on 08-22-2023 Monocytes (Bld) [#/Vol] 0.5 10*3/uL 0.0-0.8 [facility] Monocytes/100 WBC Auto (Bld) Ordered By: Gerry Nelson on 08-22-2023 Monocytes/100 WBC (Bld) 7.4 % . [facility] Neutrophils Auto (Bld) [#/Vo l]Ordered By: Gerry Nelson on 08-22-2023 Neutrophils (Bld) [#/Vol] 4.7 10*3/uL 1.8-7.7 [facility] Neutrophils/100 WBC Auto (Bl d)Ordered By: Gerry Nelson on 08-22-2023 Neutrophils/100 WBC (Bld) 75.5 % . [facility] No Panel InformationOrdered By: Gerry Nelson on 08-22-2023 Estimated GFR (CKD-EPI) 21.738 mL/Min [facility] Creatinine Clearance (Chem N/A [facility] Nucleated erythrocytes [Pres ence] in Blood by Automated countOrdered By: Gerry Nelson on 08-22-2023 Nucleated RBC Auto Ql (Bld) 0.0 /100{WBC} 0-0.5 [facility] Platelet mean volume Auto (B ld) [Entitic vol]Ordered By: Gerry Nelson on 08-22-2023 Platelet mean volume (Bld) [Entitic vol] 7.2 fL 6.6-10.1 [facility] Platelets Auto (Bld) [#/Vol] Ordered By: Gerry Nelson on 08-22-2023 Platelets (Bld) [#/Vol] 165 10*3/uL 150-450 [facility] Potassium [Moles/volume] in Serum or PlasmaOrdered By: Gerry Nelson on 08-22-2023 Potassium [Moles/Vol] 4.7 mmol/L 3.5-5.1 [facility] RBC Auto (Bld) [#/Vol]Ordere d By: Gerry Nelson on 08-22-2023 RBC (Bld) [#/Vol] 3.50 10*6/uL 3.90-5.60 [facility] Serum or plasma anion gap de terminationOrdered By: Gerry Nelson on 08-22-2023 Anion gap [Moles/Vol] 12.7 mmol/L 6.0-15.0 [facility] Sodium [Moles/volume] in Ser um or PlasmaOrdered By: Gerry Nelson on 08-22-2023 Sodium [Moles/Vol] 139 mmol/L 136-145 [facility] Urea nitrogen [Mass/volume] in Serum or PlasmaOrdered By: Gerry Nelson on 08-22-2023 Urea nitrogen [Mass/Vol] 43 mg/dL 7-25 [facility] WBC Auto (Bld) [#/Vol]Ordere d By: Gerry Nelson on 08-22-2023 WBC (Bld) [#/Vol] 6.2 10*3/uL 4.1-10.5 [facility] Glucose mean value [Mass/vol ume] in Blood Estimated from glycated hemoglobinon 08-06-2023 Average glucose Estimated from glycated hemoglobin (Bld) [Mass/Vol] 163 mg/dL [facility] Laboratory - Hematology and Cell countson 08-06-2023 HbA1c (Bld) [Mass fraction] 7.3 % 4.5-6.2 [facility] Comment on above: ADA RECOMMENDED LIMI T 4.0 - 6.0ADA THERAPEUTIC TARGET < 7.0ACTION SUGGESTED> 7.0 CBC AUTO DIFFon 04-05-2022 BASO # 0.0 103/ul Normal 0.0-0.1 [facility] Comment on above: Performed By: #### C BC #### [facility] [address] [place] [address] Dr. Dave Duffy Basophils/100 WBC (Bld) 0.2 % Normal 0.2-2.0 [facility] Comment on above: Performed By: #### C BC #### [facility] [address] [place] [address] Dr. Dave Duffy EO # 0.2 103/ul Normal 0.0-0.7 [facility] Comment on above: Performed By: #### C BC #### [facility] [address] [place] [address] Dr. Dave Duffy Eosinophils/100 WBC (Bld) 2.5 % Normal 0.9-7.0 [facility] Comment on above: Performed By: #### C BC #### [facility] [address] [place] [address] Dr. Dave Duffy Erythrocyte distribution width (RBC) [Ratio] 12.3 % Normal 11.0-15.0 [facility] Comment on above: Performed By: #### C BC #### [facility] [address] [place] [address] Dr. Dave Duffy Hematocrit (Bld) [Volume fraction] 32.8 % Critically low 42.0-54.0 [facility] Comment on above: Performed By: #### C BC #### [facility] [address] [place] [address] Dr. Dave Duffy Hemoglobin (Bld) [Mass/Vol] 11.4 g/dL Critically low 14.0-18.0 [facility] Comment on above: Performed By: #### C BC #### [facility] [address] [place] [address] Dr. Dave Duffy IG # 0.03 10e3/ul Normal 0.00-0.03 [facility] Comment on above: Performed By: #### C BC #### [facility] [address] [place] [address] Dr. Dave Duffy IG % 0.5 % Normal 0.0-0.5 [facility] Comment on above: Performed By: #### C BC #### [facility] [address] [place] [address] Dr. Dave Duffy LYMPH # 1.2 103/ul Normal 1.2-3.8 [facility] Comment on above: Performed By: #### C BC #### [facility] [address] [place] [address] Dr. Dave Duffy Lymphocytes/100 WBC (Bld) 18.9 % Critically low 20.5-60.0 [facility] Comment on above: Performed By: #### C BC #### [facility] [address] [place] [address] Dr. Dave Duffy MANUAL DIFF REQ NO Normal [facility] Comment on above: Performed By: #### C BC #### [facility] [address] [place] [address] Dr. Dave Duffy MCH (RBC) [Entitic mass] 32.8 pg Normal 25.9-34.0 [facility] Comment on above: Performed By: #### C BC #### [facility] [address] [place] [address] Dr. Dave Duffy MCHC (RBC) [Mass/Vol] 34.8 g/dL Normal 29.9-35.2 [facility] Comment on above: Performed By: #### C BC #### [facility] [address] [place] [address] Dr. Dave Duffy MCV (RBC) [Entitic vol] 94.3 fL Critically high 80.0-94 .0 [facility] Comment on above: Performed By: #### C BC #### [facility] [address] [place] [address] Dr. Dave Duffy MONO # 0.5 103/ul Normal 0.3-0.8 [facility] Comment on above: Performed By: #### C BC #### [facility] [address] [place] [address] Dr. Dave Duffy Monocytes/100 WBC (Bld) 8.9 % Normal 1.7-12.0 [facility] Comment on above: Performed By: #### C BC #### [facility] [address] [place] [address] Dr. Dave Duffy NEUT # 4.2 103/ul Normal 1.4-6.5 [facility] Comment on above: Performed By: #### C BC #### [facility] [address] [place] [address] Dr. Dave Duffy Neutrophils/100 WBC (Bld) 69.0 % Normal 43.0-75.0 [facility] Comment on above: Performed By: #### C BC #### [facility] [address] [address] [address] Dave Duffy Platelet mean volume (Bld) [Entitic vol] 8.7 fL Critically low 9.5-13.5 [facility] Comment on above: Performed By: #### C BC #### [facility] [address] [address] [address] Dave Duffy PLT 166 103/ul Normal 150-450 [facility] Comment on above: Performed By: #### C BC #### [facility] [address] [address] [address] Dave Duffy RBC 3.48 106/ul Critically low 4.70-6.10 [facility] Comment on above: Performed By: #### C BC #### [facility] [address] [place] [address] Dr. Dave Duffy WBC 6.1 103/ul Normal 4.0-11.0 [facility] Comment on above: Performed By: #### C BC #### [facility] [address] [place] [address] Dr. Dave Duffy LIPID PROFILEon 04-05-2022 CHOL-HDL RATIO NORM SEE BELOW Normal [facility] Comment on above: Result Comment: 3.3 - 4.4 LOW RISK 4.4 - 7.1 AVERAGE RISK 7.1 - 11.0 MODERATE RISK >11.0 HIGH RISK Performed By: #### C MP, LIPID #### [facility] [address] [place] [address] Dr. Dave Duffy Cholesterol [Mass/Vol] 106 mg/dL Normal <=200 Th [facility] Comment on above: Performed By: #### C MP, LIPID #### [facility] [address] [place] [address] Dr. Dave Duffy Cholesterol in HDL [Mass/Vol] 36 mg/dL Critically low 40-60 [facility] Comment on above: Performed By: #### C MP, LIPID #### [facility] [address] [place] [address] Dr. Dave Duffy Cholesterol in LDL [Mass/Vol] 43.4 mg/dL Normal [facility] Comment on above: Performed By: #### C MP, LIPID #### [facility] [address] [address] [address] Dave Duffy Cholesterol.total/Bertha sterol in HDL [Mass ratio] 2.9 {ratio} Normal [facility] Comment on above: Performed By: #### C MP, LIPID #### [facility] [address] [address] [address] Dave Duffy HDL NORMAL > or = 60 mg/dl - LO W CARDIOVASCULAR RISK <40 mg/dl - HIGH CARDIOVASCULAR RISK Normal [facility] Comment on above: Performed By: #### C MP, LIPID #### [facility] [address] [place] [address] Dr. Dave Duffy LDL CALC NORMAL SEE BELOW Normal [facility] Comment on above: Result Comment: <100 mg/dl OPTIMAL 100 - 129 mg/dl NEAR OR ABOVE OPTIMAL 130 - 159 mg/dl BORDERLINE HIGH 160 - 189 mg/dl HIGH >190 mg/dl VERY HIGH Performed By: #### C MP, LIPID #### [facility] [address] [place] [address] Dr. Dave Duffy Triglyceride [Mass/Vol] 133 mg/dL Normal <=[address] [facility] Comment on above: Performed By: #### C MP, LIPID #### [facility] [address] [address] [address] Dave Duffy VLDL CALC 26.6 mg/dL Normal [facility] Comment on above: Performed By: #### C MP, LIPID #### [facility] [address] [address] [address] Dave Duffy MICROALBUMIN, RAND URon 11- mALB 19.6 mg/L Normal <=30.0 [facility] Comment on above: Performed By: #### M ALBR #### [facility] [address] [place] [address] Dr. Dave Duffy PROF 14(COMP METB)on 022 Albumin [Mass/Vol] 3.6 g/dL Normal 3.4-5.0 [facility] Comment on above: Performed By: #### C MP, LIPID #### [facility] [address] [place] [address] Dr. Dave Duffy Albumin/Globulin [Mass ratio] 1.2 {ratio} Normal [facility] Comment on above: Performed By: #### C MP, LIPID #### [facility] [address] [address] [address] Dave Duffy ALP [Catalytic activity/Vol] 102 U/L Normal 46-116 [facility] Comment on above: Performed By: #### C MP, LIPID #### [facility] [address] [place] [address] Dr. Dave Duffy ALT [Catalytic activity/Vol] 22 U/L Normal 16-63 [facility] Comment on above: Performed By: #### C MP, LIPID #### [facility] [address] [address] [address] Dave Duffy Anion gap [Moles/Vol] 10.8 mmol/L Normal [facility] Comment on above: Performed By: #### C MP, LIPID #### [facility] [address] [place] [address] Dr. Dave Duffy AST [Catalytic activity/Vol] 13 U/L Critically low 15-37 [facility] Comment on above: Performed By: #### C MP, LIPID #### [facility] [address] [address] [address] Dave Duffy Bilirubin [Mass/Vol] 0.5 mg/dL Normal 0.2-1.0 [facility] Comment on above: Performed By: #### C MP, LIPID #### [facility] [address] [address] [address] Dave Duffy Calcium [Mass/Vol] 8.6 mg/dL Normal 8.5-10.1 [facility] Comment on above: Performed By: #### C MP, LIPID #### [facility] [address] [address] [address] Dave Duffy Chloride [Moles/Vol] 107 mmol/L Normal 98-107 [facility] Comment on above: Performed By: #### C MP, LIPID #### [facility] [address] [address] [address] Dave Duffy CO2 [Moles/Vol] 25.7 mmol/L Normal 21.0-32.0 [facility] Comment on above: Performed By: #### C MP, LIPID #### [facility] [address] [place] [address] Dr. Dave Duffy Creatinine [Mass/Vol] 2.99 mg/dL Critically high 0.70-1.30 [facility] Comment on above: Performed By: #### C MP, LIPID #### [facility] [address] [place] [address] Dr. Dave Duffy EGFR-AF UZBEK 25 mL/min/1.73m2 Critically low >=60 [facility] Comment on above: Performed By: #### C MP, LIPID #### [facility] [address] [place] [address] Dr. Dave Duffy EGFR-NON AF UZBEK 21 mL/min/1.73m2 Critically low >=60 [facility] Comment on above: Performed By: #### C MP, LIPID #### [facility] [address] [place] [address] Dr. Dave Duffy Globulin (S) [Mass/Vol] 3.1 g/dL Normal [facility] Comment on above: Performed By: #### C MP, LIPID #### [facility] [address] [place] [address] Dr. Dave Duffy Glucose [Mass/Vol] 106 mg/dL Normal 74-106 [facility] Comment on above: Performed By: #### C MP, LIPID #### [facility] [address] [place] [address] Dr. Dave Duffy Potassium [Moles/Vol] 4.5 mmol/L Normal 3.5-5.1 [facility] Comment on above: Performed By: #### C MP, LIPID #### [facility] [address] [place] [address] Dr. Dave Duffy Protein [Mass/Vol] 6.7 g/dL Normal 6.4-8.2 [facility] Comment on above: Performed By: #### C MP, LIPID #### [facility] [address] [place] [address] Dr. Dave Duffy Sodium [Moles/Vol] 139 mmol/L Normal 136-145 [facility] Comment on above: Performed By: #### C MP, LIPID #### [facility] [address] [place] [address] Dr. Dave Duffy Urea nitrogen [Mass/Vol] 43.0 mg/dL Critically high 7.0-18.0 [facility] Comment on above: Performed By: #### C MP, LIPID #### [facility] [address] [place] [address] Dr. Dave Duffy Urea nitrogen/Creatinine [Mass ratio] 14.4 mg/mg Normal [facility] Comment on above: Performed By: #### C MP, LIPID #### [facility] [address] [place] [address] Dr. Dave Duffy XR FLUORO < 1 [...] by: ALONZO MADRIGAL Date: 2022-03-05 11:26 Normal [facility] Dejuan 02-24-2022 REENA Telephone ([employer]) EUGENIO CREWS ([id number]) 1945 M TRN Date Time Provider Department [...] Encounter Status:Closed by ROSELYN PAGE on 02/24/22 [facility] 02-23-2022 CNPN Telephone (HEMTSA) EUGENIO CREWS ([id number]) 1945 M TRN Date Time Provider Department [...] Encounter Status:Closed by EAMON BISWAS on 03/02/22 [facility] Dejuan 02-21-2022 CNPN Telephone (HEMVIVA) EUGENIO CREWS ([id number]) 1945 M TRN Date Time Provider Department [...] accessed 2 days in a row at [facility] and there was swelling above port site. Dr. Reyes thought perhaps the nurse missed as they use a smaller port at [place] which is where he had it placed. Informed that if we have swelling while patient is here, we would not proceed. verbalized understanding. PSS: please call patient/ to schedule on infusion schedule for possible 2 doses of activase. Jamia: Can you get an xray that was taken of the port at [facility] recently. ( states they did one) [...] Visit Diagnosis:Obstruction of central line, initial encounter ([facility] [T82.594A] Prescriptions as of [...] AILEEN JENKINS on 02/21/22 Normal [facility] GLYCOHEMOGLOBIN A1Con 2021 ADA RECOMMENDATION SEE BELOW Normal [facility] Comment on above: Result Comment: ADA RECOMMENDED LIMIT 4.0 - 6.0 ADA THERAPEUTIC TARGET < 7.0 ACTION SUGGESTED > 7.0 Performed By: #### D ATA1C #### [facility] [address] [address] [address] Dave Duffy Glucose [Mass/Vol] 166 mg/dL Normal [facility] Comment on above: Performed By: #### D ATA1C #### [facility] [address] [address] [address] Dave Duffy HbA1c (Bld) [Mass fraction] 7.4 % Critically high 4.5-6.2 [facility] Comment on above: Performed By: #### D ATA1C #### [facility] [address] [address] [address] Dave Duffy XR CHEST 2 Von [...] by: ALONZO MADRIGAL Date: 2022-02-07 12:00 Normal [facility] POINT OF CARE GLUCOSEon - Glucose [Mass/Vol] 163 mg/dL Critically high 74-[address] [facility] Comment on above: Performed By: #### P OCGLUC #### [facility] [address] [address] [address] Dave Zaidi 04-26-2021 REENA Telephone (HEMASA) EUGENIO CREWS ([id number]) 1945 [facility] Date Time Provider Department 04/26/21 ELIA BAL During your visit today, we recorded the following information about you: Elia Bal RN 04/26/2021 2:52 PM Signed Received call from [facility] at Dr Chang's office stating they needed to know what pt's port is being flushed with. [facility] informed pt is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 CHANG Facility:[facility] Start: 05-03-2022 End: 05-03-[address] GERRY CHANG Facility:[facility] Start: 04-05-2022 End: 04-06-[address] GERRY CHANG Facility:[facility] Start: 04-03-2022 End: 04-03-2022 Patient encounter procedure Jenaro Roberto JADE [facility] Start: 03-27-2022 Adult health examination Carlitos berna Chang Other [employer] Other Start: 03-27-2022 Pre-procedure evalua tion check Gerry Chang Other [employer] Other Start: 03-22-[address] GERRY CHANG [...] Start: 03-23-2021 End: 03-23-2021 ambulatory MARYJO KIDD [facility] Procedures Date Procedure Procedure Detail Performing Clinician Start: 03-21-2024 CRYOTHERAPY SKIN LESION Ashley Manzano MARKETING PROJECT LEAD-PLASTIC SURGEON Work Phone: Start: 08-28-2023 Excision of lesion of cheek DO Gerry Chang Work Phone: Start: 03-03-[address] GERRY CHANG Comment on above: Performed By: #### PSAD #### [facility] [address] [place] [address] Dr. Dave Duffy Start: 11-25-2020 Adult depression [...] [address] [place] [id number] Ashley Manzano, MARKETING PROJECT LEAD-PLASTIC SURGEON [address] [place] [address] [facility] Start: 03-21-2024 End: 03-21-2024 Patient encounter procedure 03/21/2024 8:30 AM EDT Office Visit [facility] [address] [place] [phone] Ashley Manzano, MARKETING PROJECT LEAD-PLASTIC SURGEON [address] [place] [address] Arrived [facility] Comment on above: Arrived Start: 02-03-2024 Influenza vaccination Influenza Vacc ine (#1) [facility] Start: 08-28-2023 [facility] Start: 08-28-2023 [facility] Start: 03-23-2022 COLORECTAL CANCER SCREENING COLORECTAL CANCER SCREENING [facility] Start: 03-23-2022 FECAL OCCULT BLOOD FECAL OCCULT BLOO D [facility] Start: 03-13-2022 End: 05-13-2022 CBC W Auto Differential panel - Blood CBC + DIFF Lab Routine Non-Hodgkin's lymphoma, unspecified body region, unspecified non-Hodgkin lymphoma type (HCC) Expected: 03/13/2022, Expires: 05/13/2022 [facility] Work Phone: Comment on above: Expected: 03/13/2022 , Expires: 05/13/2022 Start: 03-13-2022 End: 05-13-2022 Comprehensive metabolic 2000 panel - Serum or Plasma COMP METABOLIC PANEL Lab Routine Non-Hodgkin's lymphoma, unspecified body region, unspecified non-Hodgkin lymphoma type (HCC) Expected: 03/13/2022, Expires: 05/13/2022 [facility] Work Phone: Comment on above: Expected: 03/13/2022 , Expires: 05/13/2022 Start: 03-13-2022 End: 05-13-2022 Lactate dehydrogenase [Enzymatic activity/volume] in Serum or Plasma LD LACTATE DEHYDRO Lab Routine Non-Hodgkin's lymphoma, unspecified body region, unspecified non-Hodgkin lymphoma type (HCC) Expected: 03/13/2022, Expires: 05/13/2022 [facility] Work Phone: Comment on above: Expected: 03/13/2022 , Expires: 05/13/2022 Start: 02-02-2022 Influenza vaccination INFLUENZA (#1) [facility] Start: 11-25-2021 Adult depression screening assessment DEPRESSION SCREENING [facility] Start: 09-23-2021 Colonoscopy COLONOSCOPY [facility] Start: 06-04-2021 ADVANCE DIRECTIVE DISCUSSION ADVANCE DIRECTIVE DISCUSSION [facility] Start: 06-04-2021 DEPRESSION ASSESSMENT DEPRESSION ASS ESSMENT [facility] Start: 04-11-2021 COVID-19 VACCINE (4 - Booster for Pfizer series) COVID-19 VACCINE (4 - Booster for Pfizer series) [facility] Start: 1992 COLOGUARD (FIT-DNA) COLOGUARD (FIT-D NA) [facility] Start: [address] COLONOGRAPHY [facility] Start: 1992 SIGMOIDOSCOPY SIGMOIDOSCOPY [facility] Start: 1966 Urine microalbumin profile DTAP,TDAP,TD (1 - Tdap) [facility] Start: 1965 ANNUAL PCP TEAM WESTERN PHILOSOPHY PROFESSOR ALETHA DISEASE VISIT ANNUAL PCP TEAM CHRONIC DISEASE VISIT [facility] Start: 1965 Hepatitis B surface antibody level LDL CHOLESTEROL [facility] Start: 1965 HEPATITIS C SCREENING HEPATITIS C SC REENING [facility] Start: 1957 3 comp foot exam completed DIABETIC FOOT EXAM [facility] Start: 1957 Hepatitis C antibody , confirmatory test DILATED RETINAL EXAM [facility] Start: 1953 PNEUMOCOCCAL: 65+ (1 - PCV) PNEUMOCOCCAL: 65+ (1 - PCV) [facility] Start: 1952 Hemoglobin A1c/Hemoglobin.total in Blood HBA1C [facility] Comprehensive metabo lic 1999 panel - Serum or Plasma [facility] Patient referral [facility] Work Phone: Renal function 1999 panel - Serum or Plasma [facility] Renal function 1999 panel - Serum or Plasma [facility] Renal function 1999 panel - Serum or Plasma [facility] Immunizations Immunization Date Immunization Notes Care Provider Fa [facility] 02-13-2024 influenza virus vaccine, unspecified formulation Ashley Manzano MARKETING PROJECT LEAD-PLASTIC SURGEON Work Phone: [facility] 03-13-2023 COVID-19 Vaccine Pfi zer - Documentation Purposes Only Gerry Chang Other [facility] 03-13-2023 influenza virus vaccine, unspecified formulation [facility] 03-13-2023 Influenza, Seasonal, Quadrivalent, Adjuvanted Ashley Manzano MARKETING PROJECT LEAD-PLASTIC SURGEON Work Phone: [facility] [employer] 03-13-2023 influenza, high dose seasonal, preservative-free Gerry Chang Other [facility] [employer] Other 02-23-2022 influenza virus vaccine, split virus (incl. purified surface antigen) Gerry Chang Other [facility] [employer] Other 02-23-2022 influenza virus vaccine, unspecified formulation [facility] 02-23-2022 Influenza, Seasonal, Quadrivalent, Adjuvanted Ashley Manzano MARKETING PROJECT LEAD-PLASTIC SURGEON Work Phone: [facility] 02-23-2022 SARS-CoV-2 (COVID-19 ) [id number] Jenaro HANSEN [facility] 09-13-2021 SARS-CoV-2 mRNA (aifxuocftrt-dskl-bvnic se) vaccine Jenaro HANSEN [facility] 02-25-2021 influenza virus vaccine, split virus (incl. purified surface antigen) Gerry Chang Other [employer] Other 02-25-2021 influenza virus vaccine, unspecified formulation [facility] 02-25-2021 Seasonal trivalent influenza vaccine, adjuvanted, preservative free Aileen Jenkins RN [facility] 01-17-2021 SARS-CoV-2 (COVID-19 ) mRNA BNT-162b2 vax Jenaro HANSEN [facility] Comment on above: Result Comment: 2023: [id number] 07-28-2020 COVID-19 Vaccine Pfi zer - Documentation Purposes Only Gerry Chang Other [facility] Comment on above: Result Comment: 2023: [id number] 07-07-2020 COVID-19 Vaccine Pfi zer - Documentation Purposes Only Gerry Chang Other [facility] Comment on above: Result Comment: 2023: [id number] 02-05-2020 influenza virus vaccine, unspecified formulation Jenaro HANSEN [facility] 02-05-2020 influenza, high-dose , quadrivalent vaccine (FLUZONE HIGH DOSE QUADRIVALENT) Aileen Jenkins RN [facility] 08-17-2019 zoster vaccine recombinant Aileen Jenkins RN [facility] 06-01-2019 zoster vaccine recombinant Aileen Jenkins RN [facility] 03-12-2019 influenza virus vaccine, split virus (incl. purified surface antigen) Gerry Chang Other [facility] [employer] Other 03-12-2019 influenza virus vaccine, unspecified formulation [facility] 03-26-2018 influenza virus vaccine, split virus (incl. purified surface antigen) Gerry Chang Other [facility] [employer] Other 03-26-2018 influenza virus vaccine, unspecified formulation [facility] 03-26-2018 Seasonal trivalent influenza vaccine, adjuvanted, preservative free Aileen Jenkins RN [facility] 11-16-2017 diphtheria, tetanus toxoids and acellular pertussis vaccine, unspecified formulation Gerry Chang Other [facility] 04-12-2017 influenza virus vaccine, split virus (incl. purified surface antigen) Gerry Chang Other [facility] [employer] Other 04-12-2017 influenza virus vaccine, unspecified formulation [facility] 04-12-2017 influenza, high dose seasonal, preservative-free Aileen Jenkins RN [facility] 03-15-2016 influenza virus vaccine, split virus (incl. purified surface antigen) Gerry Chang Other [facility] [employer] Other 03-15-2016 influenza virus vaccine, unspecified formulation [facility] 03-15-2016 influenza, high dose seasonal, preservative-free Aileen Jenkins RN [facility] 04-09-2015 pneumococcal conjuga te vaccine, 13 valent Gerry Chang Other [facility] 04-06-2015 influenza virus vaccine, split virus (incl. purified surface antigen) Gerry Chang Other [facility] [employer] Other 04-06-2015 influenza virus vaccine, unspecified formulation [facility] 04-06-2015 influenza, high dose seasonal, preservative-free Aileen Jenkins RN [facility] 03-16-2014 pneumococcal Conjuga te, unspecified formulation; Translations: [Need for prophylactic vaccination against Streptococcus pneumoniae (pneumococcus)] Gerry Chang Other [facility] [employer] Other 03-16-2014 pneumococcal polysaccharide vaccine, 23 valent Gerry Chang Other [facility] 03-16-2014 tetanus and diphther ia toxoids, adsorbed, preservative free, for adult use (5 Lf of tetanus toxoid and 2 Lf of diphtheria toxoid) Gerry Chang Other [facility] 04-10-2013 zoster vaccine, live Aileen Roberto Umesh [facility] 03-26-2002 diphtheria, tetanus toxoids and acellular pertussis vaccine, unspecified formulation Gerry Bernardo Other [facility] Payers Date Payer Category Payer Private Health Insurance [id number] 2004 Medicare [id number] 1959 Medicare [id number] 1959 Self-pay 1959 Unknown [id number] 1947 Unknown [id number] 2.16.840.1.480270.3.579.2. 593 1947 Unknown [id number] 2.16.840.1.521937.3.579.2. 593 1947 Unknown [id number] 2.16.840.1.982444.3.579.2. 593 1947 Unknown [id number] 2.16.840.1.107397.3.579.2. 593 1947 Unknown [id number] 2.16.840.1.593563.3.579.2. 593 1947 Unknown [id number] 2.16.840.1.210016.3.579.2. 593 1947 Unknown [id number] 2.16.840.1.331590.3.579.2. 593 1947 Unknown [id number] 2.16.840.1.495757.3.579.2. 593 1947 Unknown [id number] 2.16.840.1.154257.3.579.2. 593 1947 Unknown [id number] 2.16.840.1.495447.3.579.2. 593 1947 Unknown [id number] 2.16.840.1.579092.3.579.2. 593 1947 Unknown [id number] 2.16.840.1.405108.3.579.2. 593 1947 Unknown [id number] 2.16.840.1.556318.3.579.2. 593 1947 Unknown [id number] 2.16.840.1.124450.3.579.2. 593 1947 Unknown [id number] 2.16.840.1.367284.3.579.2. 593 1947 Unknown [id number] 2.16.840.1.458152.3.579.2. 593 1947 Unknown [id number] 2.16.840.1.610157.3.579.2. 593 1947 Unknown [id number] 2.16.840.1.071617.3.579.2. 593 1947 Unknown [id number] 2.16.840.1.890731.3.579.2. 1259 1947 Unknown [id number] 2.16.840.1.487756.3.579.2. 1259 1947 Unknown [id number] 2.16.840.1.953863.3.579.2. 1259 1947 Unknown [id number] 2.16.840.1.824171.3.579.2. 1259 1947 Unknown [id number] 2.16.840.1.699613.3.579.2. 1259 1947 Unknown [id number] 2.16.840.1.281024.3.579.2. 1259 1947 Unknown [id number] 2.16.840.1.296492.3.579.2. 1259 1947 Unknown [id number] 2.16.840.1.853833.3.579.2. 1259 1947 Unknown [id number] 2.16.840.1.408741.3.579.2. 727 1947 Unknown [id number] 2.16.840.1.311320.3.579.2. 727 1947 Unknown [id number] 2.16.840.1.057408.3.579.2. 727 1947 Unknown [id number] 2.16.840.1.521086.3.579.2. 727 1947 Unknown [id number] 2.16.840.1.471113.3.579.2. 727 1947 Unknown [id number] 2.16.840.1.478786.3.579.2. 727 1947 Unknown [id number] 2.16.840.1.474162.3.579.2. 727 Medicare Medicare Outpatient [id number] Private Health Insurance [facility] [id number] Unknown [id number] 2.16.840.1.291333.3.579.2. 593 Unknown [id number] 2.16.840.1.086606.3.579.2. 531 Unknown [id number] 2.16840.1.324774.3.579.2. 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 (finding) [facility] Start: 1945 Sex Assigned At Not on file C [facility] Start: 02-11-2022 End: 02-27-2022 Exposure to SARS-CoV-2 (event) Not sure [facility] Start: 10-31-2023 End: 03-21-2024 Sex Assigned At Male [facility] Start: 1945 Sex Assigned At Male F [facility] Start: 10-31-2023 End: 03-21-2024 Alcoholic beverage intake Current drinker of alcohol (finding) [facility] Start: 10-31-2023 End: 03-21-2024 History of Social function [facility] Start: 03-06-2023 Alcohol Comment Monthly or less [facility] Tobacco smoking status Never [facility] Start: 06-13-2024 End: 10-29-2024 Sex Male (finding) [facility] Sexual Orientation [facility] Medical Equipment Procedure Code Equipment Code [...] Facility 10-16-2024 Functional Status N/A [facility] 04-14-2024 Functional Status N/A [facility] 04-03-2022 Functional Status N/A [facility] Clinical Notes 05-02-2019 to 10-29-2024 Note Date & Type Note Facility 10-29-2024 Evaluation note Diagnosis Onset Date Resolution Anemia of renal disease acute M ay 2024 9:07am CKD (chronic kidney disease) stage 4, GFR 15-29 ml/min acute October 29, 2024 9:07am Hyperkalemia acute October 29 9:07am Hyperlipidemia, mixed acute October 29, 2024 9:07am Hypertensive chronic kidney disease with stage 1 through stage 4 chronic ki acute October 032024 9:07am Hypomagnesemia acute October 29, 2024 9:07am Secondary hyperparathyroidism acute October 29 9:07am Type 2 diabetes mellitus with diabetic chronic kidney disease acute October 29, 2024 9:07am Chronic kidney disease acute Ju 2024 8:04am Chronic venous insufficiency acute November 28, 2024 8:04am Elevated PSA acute November 28, 2 025 8:04am Hyperlipidemia, mixed acute Nov 8:04am Obesity acute November 28 8:04am Pernicious anemia acute November 282024 8:04am Primary hypertension acute November 28, 2024 8:04am Renal cyst, acquired, right acute November 28, 2024 8:04am 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 November 28, 2024 8:04am Type 2 diabetes mellitus with hyperglycemia acute November 28 8:04am [facility] Work Phone: 1(553) 589-182705-28-2025 Evaluation note* Diagnosis Onset Date Resolution Status Admit Date Anemia of renal disease acute M ay 2024 9:07am CKD (chronic kidney disease) stage 4, GFR 15-29 ml/min acute October 29 9:07am Hyperkalemia acute October 29 9:07am Hyperlipidemia, mixed acute October 29, 2024 9:07am Hypertensive chronic kidney disease with stage 1 through stage 4 chronic ki acute October 29, 2024 9 :07am Hypomagnesemia acute October 29, 2024 9:07am Secondary hyperparathyroidism acute October 29, 2024 9:07am Type 2 diabetes mellitus wit h diabetic chronic kidney disease acute October 29, 2024 9:07am Chronic kidney disease acute 2024 8:04am Chronic venous insufficiency acute November 28, 2024 8:04am Elevated PSA acute November 28, 025 8:04am Hyperlipidemia, mixed acute Nov 8:04am Microscopic hematuria acute Nov 8:04am Obesity acute November 28 8:04am Pernicious anemia acute November 282024 8:04am Primary hypertension acute November 28, 2024 8:04am Renal cyst, acquired, right acute November 28, 2024 8:04am Type 2 diabetes mellitus wit h diabetic polyneuropathy acute November 8:04am Type 2 diabetes mellitus wit h hyperglycemia acute November 28, 2024 8:04am [facility] Work Phone: 1(375) 793-796905-15-2025 Hospital Discharge instructions Patient Education 10/16/2024 10:10:05 Hematuria, Adult Hematuria, Adult Hematuria is blood in the urine. Blood may be visible in the urine, or it may be identified with a test. This condition can be caused by infections of the bladder, urethra, kidney, or prostate. Otherpossible causes include: Kidney stones. Cancer of the [...] blood in your urine, even if it ispainless or the blood stops without treatment. Blood in the urine, when it happens and then stops and then happens again, can be a symptom of a very serious condition, including cancer. There is no pain in the initial stages of many urinary cancers. Follow these instructions at home: Medicines Take bmel-tix-qctlhvs and prescription medicines only as told by your health care provider. If you were prescribed an antibiotic medicine, take it as told by your health care provider. Do notstop taking the antibiotic even if you start to feel better. Eating and drinking Drink enough fluid to keep your urine pale yellow. It is recommended that you drink 3 4 quarts (2.83.8 L) a day. If you have been diagnosed with an infection, drinking cranberry juice in addition tolarge amounts of water is recommended. Avoid caffeine, [...] about any blood in your urine, even ifit is painless or the blood stops without treatment. Take egqo-off-puivtti and prescription medicines only as told by your health care provider. Drink enough fluid to keep your urine pale yellow. This information is not intended to replace advice given to you by your health care provider. Make sure you discuss any questions you have with your health care provider. Document Revised: 01/19/2021 Document Reviewed: 01/19/2021 [employer] Patient Education 2023 [employer]. Follow Up Care 10/08/2024 16:20:15 With:[facility] Address: When: Unknown Comments:For procedure as scheduled. [facility] 05-15-2025 NotePatient Education Urology Hematuria, Adult Hematuria is blood in the urine. Blood may be visible in the urine, or it may be identified with a test. This condition can be caused by infections of the bladder, urethra, kidney, or prostate. Otherpossible causes include: ??? Kidney stones. ??? Cancer [...] blood in your urine, even if it ispainless or the blood stops without treatment. Blood in the urine, when it happens and then stops and then happens again, can be a symptom of a very serious condition, including cancer. There is no pain in the initial stages of many urinary cancers. Follow these instructions at home: Medicines ??? Take nonv-lxp-pwyvwtt and prescription medicines only as told by your health care provider. ??? If you were prescribed an antibiotic medicine, take it as told by your health care provider. Donot stop taking the antibiotic even if you [...] kidney stone, follow your health care provider's instructionsabout straining your urine to catch the stone. [...] Tell your health care provider about any changesor any new symptoms. ??? It is up [...] the blood stops without treatment. ??? Take ewil-amc-yzalhtr and prescription medicines only as told by your health care provider. ??? Drink enough fluid to keep your urine pale yellow. This information is not intended to replace advice given to you by your health care provider. Make sure you discuss any questions you have with your health care provider. Document Revised: 01/19/2021 Document Reviewed: 01/19/2021 [employer] Patient Education ? 2023 [employer].[facility] 10-06-2024 NotePatient Education Urology Hematuria, Adult Hematuria is blood in the urine. Blood may be visible in the urine, or it may be identified with a test. This condition can be caused by infections of the bladder, urethra, kidney, or prostate. Otherpossible causes include: ??? Kidney stones. ??? Cancer [...] blood in your urine, even if it ispainless or the blood stops without treatment. Blood in the urine, when it happens and then stops and then happens again, can be a symptom of a very serious condition, including cancer. There is no pain in the initial stages of many urinary cancers. Follow these instructions at home: Medicines ??? Take vxqc-eyx-ljauzvd and prescription medicines only as told by your health care provider. ??? If you were prescribed an antibiotic medicine, take it as told by your health care provider. Donot stop taking the antibiotic even if you [...] kidney stone, follow your health care provider's instructionsabout straining your urine to catch the stone. [...] Tell your health care provider about any changesor any new symptoms. ??? It is up [...] the blood stops without treatment. ??? Take jjkm-ncm-bxsammc and prescription medicines only as told by your health care provider. ??? Drink enough fluid to keep your urine pale yellow. This information is not intended to replace advice given to you by your health care provider. Make sure you discuss any questions you have with your health care provider. Document Revised: 01/19/2021 Document Reviewed: 01/19/2021 [employer] Patient Education ? 2023 [employer] 05-05-2024 Evaluation note* Diagnosis Onset Date Resolution Status Admit Date Anemia of renal disease acute D ec2023 2:29pm CKD (chronic kidney disease) stage 4, GFR 15-29 ml/min acute May 2:29pm Hyperlipidemia, mixed acute Dec ember 2023 [...] stage 4 chronic ki acute July 21, 2 025 2:34pm Hypomagnesemia acute July 052024 2:34pm Secondary hyperparathyroidism acute July 21, 2024 2:34pm Thrombocytopenia acute July 21, 2024 2:34pm Type 2 diabetes mellitus wit h diabetic chronic kidney disease acute July 21, 2024 2:34pm [facility] Work Phone: 1(179) 558-245612-02-2024 Evaluation note* Diagnosis Onset Date Resolution Status [...] 2:29pm [facility] of [facility] disease [facility] 2:34pm CKD (chronic kidney disease) stage 4, GFR 15-29 ml/min acute July 2:34pm Hyperlipidemia, mixed acute Feb ruary 2024 2:34pm Hypertensive chronic kidney disease with stage 1 through stage 4 chronic ki acute July 21, 2 025 2:34pm Hypomagnesemia acute July 052024 2:34pm [...] July 30, 2024 8:13am Pernicious anemia acute Februar y 2024 8:13am Post herpetic neuralgia acute F ebruary 2024 8:13am Primary hypertension acute Febr uary 2024 8:13am Thrombocytopenia acute July 30, 2024 8:13am Type 2 diabetes mellitus wit h diabetic polyneuropathy acute July 30, 2024 8:13am Type 2 diabetes mellitus wit h hyperglycemia acute July 30, 025 8:13am [facility] Work Phone: 1(846) 762-920511-11-2024 Hospital Discharge instructions Patient Education 04/14/2024 12:36:08 [...] treatment? Where to find more information [employer]: www.cancer.org [place] [employer]: www.auanet.org Contact a health care [...] provider. Document Revised: 11/14/2021 Document Reviewed: 11/14/2021 [employer] Patient Education 2023 [employer]. Follow Up Care 04/08/2024 11:27:26 With:JADE DOYLE, Jenaro Roberto, URL Address: [facility] [address] [place] [address]- [phone] When: Unknown Comments:6 mos w/ PSA [facility] 11-11-2024 NoteUrology Office/Clinic Note Chief Complaint referral [...] [facility] [address], [place] [address] [phone] Additional Instructions: 6 mos w/ PSA Patient Education Prostate Cancer Screening Rochelle Centeno, personally scribed for Dr. Hansen on 04/14/2024 12:42:10. . Documentation recorded by the scribeRochelle, accurately reflects the services(s) I performed and [...] Oral, Daily Tradjenta, Oral, (more content not included)...[facility] Comment on above:Result Comment: Electronically Signed By: Jenaro HANSEN MD\.br\Date and Time Signed: 04/14/24 12:43 EST\.br\Electronically Co-Signed By: Rochelle Hightower\.br\Date and Time Co-Signed: 04/14/24 12:42 [id number] Note Patient Education Oncology Prostate Cancer Screening [...] Where to find more information ??? [employer] [place] [employer]: www.cancer.org ??? [employer]: www.auanet.org Contact a health care [...] men. The prostate gland (more content not included)...[facility]10-28-2024 Evaluation note* Diagnosis Onset Date Resolution Status Admit Date Chronic kidney disease acute Oc tob2023 8:14am Chronic venous insufficiency acute March 31, 2024 8:14am Hyperlipidemia, mixed acute Oct hai 2023 8:14am Medicare annual wellness vis it, subsequent acute March 31 8:14am Obesity acute March 31, 2024 8:14am Pernicious anemia acute March 31, 2024 8:14am Primary hypertension acute Octo 2023 8:14am Screening PSA (prostate spec ific [...] kidney disease acute May 05, 2024 2:29pm [facility] Work Phone: 1(187) 915-791310-18-2024 History of Present illness Narrative* Ashley Manzano, MARKETING PROJECT LEAD-PLASTIC SURGEON - 03/21/2024 8:30 AM EDT Skin Check [...] Anterior (2), Right Forearm - Posterior, Right [place] Erythematous scaly papules Patient was counseled regarding [...] limited to risks of scarring, darker or shelter supervisor pigmentary changes, recurrence, incomplete removal and infection. [...] Anterior (2), Right Forearm - Posterior, Right [place] 5. Capillary angioma (2) Left Arm, Right [...] 1 year, skin check documented [facility] HospitalMeoweruawc29-30-1298 Evaluation note* Encounter Date Diagnosis Assessment Notes Treatment Notes Treatment Clinical Notes Jun, Pernicious anemia (ICD-10 - D51.0) [employer] Other 10-24-2023 Evaluation note* Encounter Date Diagnosis [...] index [BMI] 30.0-30.9, adult (ICD-10 - Z68.30) [employer] Other 09-29-2023 Evaluation note* Encounter Date Diagnosis [...] in public places for complete 10 days [employer] Other 09-05-2023 Evaluation note* Encounter Date Diagnosis Assessment Notes Treatment Notes Treatment Clinical Notes Feb, Pernicious anemia (ICD-10 - D51.0) [employer] Other 07-31-2023 Evaluation note* Encounter Date Diagnosis Assessment Notes Treatment Notes Treatment Clinical Notes Dec, Pernicious anemia (ICD-10 - D51.0) [employer] Other 06-26-2023 Evaluation note* Encounter Date Diagnosis Assessment Notes Treatment Notes Treatment Clinical Notes Nov, Pernicious anemia (ICD-10 - D51.0) [employer] Other 03-27-2023 Evaluation note* Encounter Date Diagnosis Assessment Notes Treatment Notes Treatment Clinical Notes Aug, Pernicious anemia (ICD-10 - D51.0) [employer] Other 02-23-2023 Evaluation note* Encounter Date Diagnosis Assessment Notes Treatment Notes Treatment Clinical Notes Jul, Pernicious anemia (ICD-10 - D51.0) [employer] Other 01-23-2023 Evaluation note* Encounter Date Diagnosis Assessment Notes Treatment Notes Treatment Clinical Notes Jun, Pernicious anemia (ICD-10 - D51.0) [employer] Other 10-31-2022 Hospital Discharge instructions Patient Education [...] including vitamins, herbs, eye drops, creams, and [id number] medicines. This also includes: ?Medicines to assist [...] 06/23/2005 Document Revised: 05/03/2018 Document Reviewed: 02/25/2018 [employer] Patient Education 2020 [employer] Follow Up Care 03/28/2021 16:51:27 With:JADE DOYLE, Jenaro R, URL Address: [facility] [address] [place] [address] [phone] When: only if needed [facility] [place] 10-10-2022 Miscellaneous Notes* Telephone Encounter - Irena Cabrera - 03/13/2022 2:48 PM EDT Per last note 03/2021 follow up with labs. Please add lab orders for Sunday03/22/22. Thanks. Irena Cabrera MA documented [facility]-2022 NoteHNO ID: [id number] Author: Iona Cabrera RN Service: ? Author Type: Registered Nurse Type: Progress Notes Filed: 02/28/2022 2:28 PM Note Text: Report of findings called to Trisha VIDAL at Dr. Jasso' office. She states she will let Dr. Reyes know. Elisabeth Cabrera [facility]22 NoteHNO ID: [id number] Author: Iona Cabrera RN Service: ? Author [...] scheduled on 03/01/22. Elisabeth Cabrera RNK[facility]09-26-2022 History of Present illness Narrative* Iona Cabrera [...] 03/01/22. Elisabeth Cabrera RN documented in this encounterDoctors Hospital09-23-2022 Miscellaneous Notes* Telephone Encounter - Yoly Boss PA-C - 02/24/2022 8:21 AM EDT Done Yoly Boss PA-C * Telephone Encounter - Eamon Biswas RN - 02/23/2022 4:40 PM EDT Patient of Dr Kidd who is scheduled for cath vernell 02/27/22 per prior phone encounter, can you please place orders. Thanks! Eamon Biswas RN documented in this encounterDoctors Hospital09-20-2022 Miscellaneous Notes* Telephone Encounter - Allyssa Rueda - 02/21/2022 1:51 PM EDT Patient has been scheduled for activase on Sunday, 02/27. Called and spoke with regarding this appointment. Allyssa Rueda * Telephone Encounter - Aileen Fish [facility] - 02/21/2022 1:12 PM EDT Xray report scanned. * Telephone Encounter - Aileen Jenkins RN - 02/21/2022 12:24 PM EDT Spoke with and informed her that the orders were placed. NSG: states that it was accessed 2 days in a row at [facility] and there was swelling above port site. Dr. Reyes thought perhaps the nurse missed as they use a smaller port at [place] which is where he had it placed. Informed that if we have swelling while patient is here, we would not proceed. verbalized understanding. PSS: please call patient/ to schedule on infusion schedule for possible 2 doses of activase. Jamia: Can you get an xray that was taken of the port at [facility] recently. ( states they did one) [...] to the treatment schedule. documented in this encounterDoctors Hospital06-08-2022 NotePROCEDURE: XR FOOT LT MIN 3 [...] Electronically authenticated by: ALONZO MADRIGAL Date: 2021-11-09 17:01[facility]10-20-2021 NoteHNO ID: [id number] Author: Kendall Honeycutt APRN.PLASTIC SURGEON Service: ? Author Type: Nurse Practitioner Type: Progress Notes Filed: 03/25/2021 12:42 PM Note Text: Patient: Eugenio Crews Location: [facility] : 1945 Attending Physician: Dr. Kings [...] colonoscopy in September with Dr. Reyes in [place]. He denies fevers, chills, night sweats and [...] with any questions or concerns. Kendall Honeycutt APRN.PLASTIC SURGEON March 23, 2021 I spent a total of 30 minutes on the date of the service which included preparing to see the patient, [id number] patient care, completing clinical documentation, obtaining and/or reviewing separately obta (more content not included)...[facility]11-29-2019 History of Past illness Narrative* Problem Noted [...] of this encounter (statuses as of 02/21/2022) [facility] of Past illness Narrative* Problem [...] of this encounter (statuses as of 02/27/2022) [facility] of Past illness Narrative* Problem [...] of this encounter (statuses as of 03/02/2022) [facility] of Past illness Narrative* Problem [...] of this encounter (statuses as of 03/13/2022) [facility] No data available for this section [facility] evaluation + Plan note Future Appointments Appointment Date:10/06/2024 08:45:00 AM Scheduled Provider:Jenaro HANSEN MD Location:[facility] Appointment Type:URO Office Visit Diagnostic Tests Pending * PSA Total 04/14/24 [facility] evaluation + Plan note Future Appointments Appointment Date:04/20/2025 08:45:00 AM Scheduled Provider:Jenaro HANSEN MD Location:[facility] Appointment Type:URO Office Visit [facility] evaluation + Plan note Future Appointments Appointment Date:04/20/2025 08:45:00 AM Scheduled Provider:Jenaro HANSEN MD Location:[facility] Appointment Type:URO Office Visit Diagnostic Tests Pending * Creatinine 10/16/24 * BUN 10/16/24 [facility] evaluation + Plan note Future Appointments Appointment Date:04/20/2025 08:45:00 AM Scheduled Provider:Jenaro HANSEN MD Location:[facility] Appointment Type:URO Office Visit Diagnostic Tests Pending * Urine Cytology ([facility]) 10/16/24 [facility] evaluation note* Diagnosis Obstruction of central line, initial encounter (HCC) documented in this encounter [facility] note* Diagnosis Obstruction of central line, initial encounter (HCC)- Primary Follicular lymphoma, unspecified follicular lymphoma type, unspecified body region (HCC) documented [facility] this encounter [facility]* Diagnosis Non-Hodgkin's lymphoma, unspecified body region, unspecified non-Hodgkin lymphoma type (HCC)- Primary [facility] noteNo InformationNort [employer] Other evaluation note* Diagnosis Onset Date Resolution Status Chronic venous insufficiency acute Diabetes mellitus with hyperglycemia acute Hyperlipidemia, mixed acute Pernicious anemia acute Primary hypertension acute 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 [facility] Work Phone: Evaluation noteNo assessment information available [facility] Work Phone: evalurasuj note* Diagnosis Onset Date Resolution Status Herpes zoster acute Type 2 diabetes mellitus with hyperglycemia acute Chronic venous insufficiency acute Hyperlipidemia, mixed acute Pernicious anemia acute Primary hypertension acute 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 Type 2 diabetes mellitus with hyperglycemia acute [facility] Work Phone: Evaluation note* Diagnosis Onset Date Resolution Status Chronic venous insufficiency acute Hyperlipidemia, mixed acute Pernicious anemia acute Primary hypertension acute 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 Type 2 diabetes mellitus with hyperglycemia acute [facility] Work Phone: Evaluujlcx note* Diagnosis Melanocytic nevus of right upper extremity Melanocytic nevus of left upper extremity Seborrheic keratosis Actinic keratosis Capillary angioma Nevus, non-neoplastic History of SCC (squamous cell carcinoma) of skin Personal history of other malignant neoplasm of skin [facility] Diagnosis Onset Date Resolution Status Chronic kidney disease acute Chronic venous insufficiency acute Hyperlipidemia, mixed acute Medicare annual wellness visit, subsequent acute Obesity acute Pernicious anemia acute Primary hypertension acute Screening PSA (prostate specific antigen) acute 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 Type 2 diabetes mellitus with hyperglycemia acute [facility] Work Phone: Evaluation note* Diagnosis Onset Date Resolution Status Admit Date Anemia of renal disease acute M 2024 9:07am CKD (chronic kidney disease) stage 4, GFR 15-29 ml/min acute October 29 9:07am Hyperlipidemia, mixed acute October 29, 2024 9:07am Hypertensive chronic kidney disease with stage 1 through stage 4 chronic ki acute October 29, 2024 9 :07am Hypomagnesemia acute October 29, 2024 9:07am Secondary hyperparathyroidism acute October 29, 2024 9:07am Thrombocytopenia acute October 9:07am Type 2 diabetes mellitus wit h diabetic chronic kidney disease acute October 29, 2024 9:07am [facility] Work Phone: History general Narrative - Reported* Type Description Date Surgical History Problem Title : COLONOSCOPY (70 378), Problem Status : Active, Surgical History Problem Title : DAREN ERTOE REPAIR ([id number]), Problem Comment : left 2nd toe, Problem Status : Active, Surgical History Problem Title : Knee arthroscopy, Problem Comment : multiple 5408-4124, Problem Status : Inactive, Surgical History Problem Title : OSTE CTOMY OF TARSAL COALITION OF LEFT FOOT (63460), Problem Status : Active, Surgical History Problem [...] Foot Ulcer 09/2108, Problem Status : Active, [employer] Other History general Narrative - Reported* Type [...] : Active,, Medical History Problem Title : [facility] Annual Wellness Exam, Problem Description : Medicare Annual Wellness Exam, Problem Comment : G0439, Problem Status : Active,, Medical History Problem Title : [facility] Part B,CMOD Checklist #1, Problem Description : Medicare Part B,CMOD Checklist #1, Problem Comment : Yes, Problem Status : Active,, Medical History Problem Title : Ment al Status Exam summary of all, Problem Description : Mental Status Exam summary of all, Problem Comment : Orientation to Time~10/06^Orientation to Place~10/06^Registration~3^Attention/Calculation~10/06^Recall~3 ^Language-name 2 objects~2/2^Language-repeat~06/04^Language-follow 3-step command~08/04^Language-read and follow direction~06/04^Write a sentence~06/04^Copy [...] History Problem Title : DAREN ERTOE REPAIR ([id number]), Problem Comment : left 2nd toe, Problem Status : Active, Surgical History Problem Title : Knee arthroscopy, Problem Comment : multiple 0850-1419, Problem Status : Inactive, Surgical History Problem Title : OSTE CTOMY OF TARSAL COALITION OF LEFT FOOT (99604), Problem Status : Active, Surgical History Problem [...] Foot Ulcer 09/2108, Problem Status : Active, [employer] Other History general Narrative - Reported* Type [...] left 2nd toe Surgical History Knee arthroscopy 3445-5925 Surgical History OSTECTOMY OF TARSAL COALITION O F LEFT FOOT Surgical History Resection of Large Bowel Surgical History Debridement Left Foot Ulcer 2018 Hospitalization History see surgical history [employer] Other Hospital Discharge instructions Additional Instructions 1. Sleep on 2 pillows 2. Small amount of Vaseline to sutures twice daily 3. You may shower late tomorrow afternoon, soap and water okay on wound 4. Tylenol or Motrin for discomfort 5 take antibiotic as prescribed 6. [facility] Hospital Discharge instructions No data available for this section [facility] Progress note No data available for this section [facility] [place] reason for referral (narrative)No reason for referral [facility] Work Phone: Advance Directives Documents on File Type Date Recorded Patient Barber Instructor Expl anation Advance Directive(s) 09/10/2009 10:04 PM [...] 2:29pm Anemia of renal disease July 21, 2 025 2:34pm CKD (chronic kidney disease) [...] 2:29pm Anemia of renal disease July 21, 2 025 2:34pm CKD (chronic kidney disease) [...] with hyperglyce susie July 30, 2024 8:13am Chief Complaint Admit Date renal 3 month October 29, 2024 9:07a m Reason for Visit Admit Date Anemia of renal disease October 29, 2024 9 :07am CKD (chronic kidney disease) stage 4, GF R 15-29 ml/min October 29, 2024 9:07am Hyperlipidemia, mixed October 29, 2024 9:0 7am Hypertensive chronic kidney disease with stage 1 through stage 4 chronic ki October 29, 2024 9:07am Hypomagnesemia October 29, 2024 9:07a m Secondary hyperparathyroidism October 29, 2024 9:07am Thrombocytopenia October 29, 2024 9:07a m Type 2 diabetes mellitus with diabetic c hronic kidney disease October 29, 2024 9:07am Chief Complaint Admit Date renal 3 month October 29, 2024 9:07a m 4 month f/u November 28, 2024 8:04 am Reason for Visit Admit Date Anemia of renal disease October 29, 2024 9 :07am CKD (chronic kidney disease) stage 4, GF R 15-29 ml/min October 29, 2024 9:07am Hyperkalemia October 29, 2024 9:07a m Hyperlipidemia, mixed October 29, 2024 9:0 7am Hypertensive chronic kidney disease with stage 1 through stage 4 chronic ki October 29, 2024 9:07am Hypomagnesemia October 29, 2024 9:07a m Secondary hyperparathyroidism October 29, 2024 9:07am Type 2 diabetes mellitus with diabetic c hronic kidney disease October 29, 2024 9:07am Chronic kidney disease November 28, 2024 8 :04am Chronic venous insufficiency November 28, 2024 8:04am Elevated PSA November 28, 2024 8:04 am Hyperlipidemia, mixed November 28, 2024 8: 04am Obesity November 28, 2024 8:04 am Pernicious anemia November 28, 2024 8:04 am Primary hypertension November 28, 2024 8:0 4am Renal cyst, acquired, right November 28, 2 025 8:04am Type 2 diabetes mellitus with diabetic p olyneuropathy November 28, 2024 8:04am Type 2 diabetes mellitus with hyperglyce susie November 28, 2024 8:04am Chief Complaint Admit Date renal 3 month October 29, 2024 9:07a m 4 month f/u November 28, 2024 8:04 am B12 shot January 02, 2025 1:3 6pm Reason for Visit Admit Date Anemia of renal disease October 29, 2024 9 :07am CKD (chronic kidney disease) stage 4, GF R 15-29 ml/min October 29, 2024 9:07am Hyperkalemia October 29, 2024 9:07a m Hyperlipidemia, mixed October 29, 2024 9:0 7am Hypertensive chronic kidney disease with stage 1 through stage 4 chronic ki October 29, 2024 9:07am Hypomagnesemia October 29, 2024 9:07a m Secondary hyperparathyroidism October 29, 2024 9:07am Type 2 diabetes mellitus with diabetic c hronic kidney disease October 29, 2024 9:07am Chronic kidney disease November 28, 2024 8 :04am Chronic venous insufficiency November 28, 2024 8:04am Elevated PSA November 28, 2024 8:04 am Hyperlipidemia, mixed November 28, 2024 8: 04am Microscopic hematuria November 28, 2024 8: 04am Obesity November 28, 2024 8:04 am Pernicious anemia November 28, 2024 8:04 am Primary hypertension November 28, 2024 8:0 4am Renal cyst, acquired, right November 28, 2 025 8:04am Type 2 diabetes mellitus with diabetic p olyneuropathy November 28, 2024 8:04am Type 2 diabetes mellitus with hyperglyce susie November 28, 2024 8:04am Additional Source Comments Source Comments (unrecognize d section and content) In the event this informatio n is protected by the Federal Confidentiality of Alcohol and Drug Abuse Patient Records regulations: The Federal rules restrict any use of the information to criminally investigate or prosecute any alcohol or drug abuse patient.Do[facility] HospitalIn the event this information is protected by the Federal Confidentiality of Alcohol and Drug Abuse Patient Records regulations: The Federal rules restrict any use of the information to criminally investigate or prosecute any alcohol or drug abuse patient.Doctors HospitalIn the event this information is protected by the Federal Confidentiality of Alcohol and Drug Abuse Patient Records regulations: The Federal rules restrict any use of the information to criminally investigate or prosecute any alcohol or drug abuse patient.Doctors HospitalIn the event this information is protected by the Federal Confidentiality of Alcohol and Drug Abuse Patient Records regulations: The Federal rules restrict any use of the information to criminally investigate or prosecute any alcohol or drug abuse patient.[facility] Reason for Visit (unrecogniz ed section and content) Reason Comments port issues Reason Comments Treatment Planning Reason Comments Lab Orders Reason Comments Skin Check Care Teams (unrecognized sec tion and content) Team Status: Active Member Role Status Dates Gerry Chang , DO Primary Care Provider Active Team Status: Active Member Role Status Dates Gerry Chang DO Primary Care Provider Active Start: September 29, 2024 Jenaro Hansen MD Attending Provider Active St art: September 29, 2024 Team Status: Active Member Role Status Dates Gerry Chang DO Primary Care Provider Active Start: October 08, 2024 Jenaro Hansen MD Attending Provider Active St art: October 08, 2024 Team Status: Active Member Role Status Dates Gerry Chang DO Primary Care Provider Active Start: October 20, 2024 Vaishali Howell MD Attending Provider Active Start : October 20, 2024 Team Status: Active Member Role Status Dates Gerry Chang DO Primary Care Provider Active Start: October 24, 2024 Aileen Dukes PA-C Attending Provider Active Start: October 24, 2024 Team Status: Inactive Member Role Status Dates Gerry Chang DO Primary Care Provider Active Start: October 29, 2024 End: October 29, 2024 Vaishali Howell MD Attending Provider Active Start : October 29, 2024 End: October 29, 2024 Team Status: Inactive Member Role Status [...] November 28, 2023 End: November 28, 2023 Foundry Helper Relationship Specialty Start Date End Date Gerry Chang, DO [address] [place] [address] PCP - General 09/07/09 Foundry Helper Relationship Specialty Start Date End Date Gerry Chang, DO [address] [place] [address] PCP - General 09/07/09 Foundry Helper Relationship Specialty Start Date End Date Gerry Chang, DO [address] [place] [address] PCP - General 09/07/09 Foundry Helper Relationship Specialty Start Date End Date Gerry Chang, DO [address] [place] [address] PCP - General 09/07/09 Team Status: Active [...] February 05, 2024 End: February 05, 2024 Foundry Helper Relationship Specialty Start Date End Date Gerry Chang MD PCP - General Internal Medicine 08/04/23 Talib Gant MD [address] [place] [address] Referring Physician Dermatology 10/31/23 Gerry Nelson DO [address] [place] [address] Otolaryngology 10/31/23 Foundry Helper Relationship Specialty Start Date End Date Gerry Chang MD PCP - General Internal Medicine 08/04/23 Talib Gant MD [address] [place] [address] Referring Physician Dermatology 10/31/23 Gerry Nelson DO [address] [place] [address] Otolaryngology 10/31/23 Team Status: Inactive Member Role [...] 2024 Team Status: Active Member Role Status Freddy [...] 2024 Team Status: Inactive Member Role Status Freddy Chang DO Primary Care Provide r, Attending Provider Active Start: June 13, 2024 End: June 13, 2024 Team Status: Active Member Role Status Freddy Chang DO Primary Care Provider Active Start: July 14, 2024 Vaishali Howell MD Attending Provider Active Start : July 14, 2024 Team Status: Inactive Member Role Status Freddy Chang DO Primary Care Provider Active Start: July 21, 2024 End: July 21, 2024 Vaishali Howell MD Attending Provider Active Start : July 21, 2024 End: July 21, 2024 Team Status: Inactive Member Role Status Freddy Chang DO Primary Care Provide r, Attending Provider Active Start: July 30, 2024 End: July 30, 2024 Team Status: Inactive Member Role Status Freddy Chang DO Primary Care Provider Active Start: November 28, 2024 End: November 28, 2024 Gerry Chang DO Attending Provider Active Sta rt: November 28, 2024 End: November 28, 2024 Team Status: Inactive Member Role Status Freddy Chang DO Primary Care Provider Active Start: January 02, 2025 End: January 02, 2025 Gerry Chang DO Attending Provider Active Sta rt: January 02, 2025 End: January 02, 2025 (unrecognized sect ion and content) No Status Records FoundNo Status Records FoundNo Status Records FoundNo Status Records FoundNo Status Records FoundNo Status Records FoundNo Status Records Found INFORMATION SOURCE (unrecogn ized section and content) DATE CREATED AUTHOR 03/05/2022 [facility] DATE CREATED AUTHOR AUTHOR'S ORGANIZ ATION 10/18/2022 [facility] DATE CREATED AUTHOR AUTHOR'S ORGANIZ ATION 09/10/2023 [facility] DATE CREATED AUTHOR AUTHOR'S ORGANIZ ATION 03/23/2024 [facility] DATE CREATED AUTHOR AUTHOR'S ORGANIZ ATION 10/08/2024 [facility] DATE CREATED AUTHOR AUTHOR'S ORGANIZ ATION 10/23/2024 [facility] DATE CREATED AUTHOR AUTHOR'S ORGANIZ ATION 11/14/2024 [facility] Goals (unrecognized section and content) Goals [...] BE BASED ON THE PRIMARY CLINICAL RECORDS. [employer] [facility]. provides no warranty or guarantee of the accuracy or completeness of information in this document.
[2025-01-19 07:41] LABS: Hematocrit 32.9 % (42.0-54.0); Hemoglobin 11.5 g/dL (14.0-18.0); Mean Corpuscular HGB Conc 35.0 g/dL (29.9-35.2); Mean Corpuscular Hemoglobin 33.4 pg (25.9-34.0); Mean Corpuscular Volume 95.6 fL (80.0-94.0); Platelet Count 128 10^3/uL (150-450); Red Blood Count 3.44 10^6/uL (4.70-6.10); White Blood Count 5.7 10^3/uL (4.0-11.0)
[2025-01-19 07:56] LABS: Albumin Level 3.7 g/dL (3.4-5.0); Anion Gap 15.5; Blood Urea Nitrogen 44.0 mg/dL (7.0-18.0); Calcium 8.3 mg/dL (8.5-10.1); Carbon Dioxide 22.1 mmol/L (21.0-32.0); Chloride 108 mmol/L (98-107); Estimated GFR (African America 22 (>=60 mL/min/1.73m^2); Estimated GFR (Non-African Ame 18 (>=60 mL/min/1.73m^2); Glucose 131 mg/dL (74-106); Magnesium 1.9 mg/dL (1.8-2.4); Potassium 4.6 mmol/L (3.5-5.1); Sodium 141 mmol/L (136-145); Uric Acid 5.0 mg/dL (3.5-7.2)
[2025-01-19 08:48] LABS: Glucose Urine UA 250 mg/dL (NEGATIVE)
[2025-01-19 09:01] LABS: Protein Creatinine Ratio Urine 0.85; Total Protein Urine Random 137.6 mg/dL (<=11.9)
[2025-01-19 09:07] LABS: Cast Seen? NONE SEEN #/LPF (NONE SEEN); Crystals Seen? None Seen #/HPF (None Seen)
[2025-01-19 09:35] LABS: Iron 66.0 ug/dL (65.0-175.0); Percent Iron Saturation 26.6 %; Total Iron Binding Capacity 248.0 ug/dL (250.0-450.0)
[2025-01-19 10:58] LABS: Ferritin 199.0 ng/mL (26.0-388.0)
== END 2025-01-19 07:14 | disposition home or self-care (01) ==
LOC: LAB 07:15
PROVIDERS: PCP Internal Medicine; Visit Provider Internal Medicine
DX: E83.42 Hypomagnesemia (principal); D69.6 Thrombocytopenia, unspecified; N25.81 Secondary hyperparathyroidism of renal origin; N18.9 Chronic kidney disease, unspecified; D63.1 Anemia in chronic kidney disease; I12.9 Hypertensive chronic kidney disease with stage 1 through stage 4 chronic kidney disease, or unspecified chronic kidney disease
CPT/HCPCS: 36415; 80069; 81001; 82306; 82570; 82728; 83540; 83550; 83735; 83970; 84156; 84550; 85027

== ENCOUNTER 2025-03-23 19:32 | Emergency (ER) | payer MEDICARE, SELFPAY ==
[2025-03-23] VITALS (11 sets, daily range): BP systolic 146–165; BP diastolic 79–101; PULSE 74–81; TEMP 36.6; O2SAT 97–99; BMI 28.9
--- OUTSIDE RECORDS SUMMARY | 2025-03-23 20:08 | XMS_ITS | Encounter Summary ---
[facility] [id number] [address] [place] [address] Care Team Providers Care Yard Jockey Name Role Phone Mick Gerry Mackenzie TEJADA Primary Care Provider [phone] Encounter Details Date Type Department Care Team (Late st Contact Info) Description 09/22/2020 Orders Only [facility] [address] [place] [id number] Ref Prov, [place] [address] Social History Tobacco Use Types Packs/Day Years [...] Result [facility] EXTERNAL NON-INTERFACED REF LAB [address] [facility] [place] [address] documented in this encounter Visit Diagnoses Not on filedocumented in this encounter Care Teams Yard Jockey Relationship Specialty Start Date End Date Gerry Barton DO [address] [place] [address] PCP - General Internal Medicine 03/20/22 documented as of this encounter
--- OUTSIDE RECORDS SUMMARY | 2025-03-23 20:08 | XMS_ITS | Clinical Summary ---
Author Organization [facility] tem Address [id number] [address] [place] [address] Care Team Providers Care Binder Folder Operator Name Role Phone Gerry Barton Primary Care Provider [phone] Allergies Active Allergy Reactions Criticality Noted Date [...] Date Last Done Comments Depression Screening 1959 Tobacco Screening 1957 DTaP,Tdap and Td Vaccines (1 - Tdap) 1966 Fall Risk Screening 2012 COVID-19 Vaccine (2024-2 6 season) 2025 02/23/2022, 09/13/2021, 01/17/2021, Additional history exists Influenza Vaccine 02/02/2025 02/23/2022, , 02/05/2020, Additional history exists Zoster (Shingles) Vaccine Completed 2019, 06/01/2019, 04/10/2013 Medical Devices Implanted Type Area Grain Shipper Device Identifier Shelf Expiration Date Model / Serial / Lot Port Powerport Mri Argd 8fr [address] [facility] [address] Intmd Kt Cecille Jostin - Sna - [id number] Implanted:Qty: 1 on 04/11/2022 by Radames Chacon DO at [facility] Port N/A: Chest [employer] [facility]ipheral [facility] 02/01/2023 [id number] / NA / [id number] Insurance MEDICARE [facility] Care Teams Binder Folder Operator Relationship Specialty Start Date End Date Gerry Barton DO [address] [place] [address] PCP - General Internal Medicine 03/20/22
--- OUTSIDE RECORDS SUMMARY | 2025-03-23 20:08 | XMS_ITS ---
Author Organization [facility] Address [address] [place] [address] Care Team Providers Care Buffing Line Set Up Worker Name Role Phone Gerry Barton Primary Care Provider [phone] Active Problems Problem Noted Date Diagnosed Date Central line clotted 02/21/2022 Diabetes mellitus 05/02/2019 Overview (05/02/2019): A/p: -Q6 Accuchecks -ISS BPH (benign prostatic hyperplasia) 09/21/2009 Neutropenic 09/07/2009 Drug-induced pancytopenia 09/07/2009 Overview (09/07/2009): chemotherapy Fever 09/07/2009 NHL (non-Hodgkin's lymphoma) 08/27/2009 Overview (09/22/2009): Day: Protocol(s): Preparative regimen: Bu/Cy/SAFE AND VAULT SERVICE MECHANIC Mobilization regimen: SAFE AND VAULT SERVICE MECHANIC/G Stem cell source: PSC [id number] cell dose [...] 01/06/2022 No medications scheduled. Other Boni, Yamilka, SUPERVISOR CAP AND HAT PRODUCTION.CLUTCH SPECIALIST 4 of 4 cycles started CENTRAL LINE FLUSH - Weekly x 24 weeks 2 01/06/2022 No medications scheduled. Treatment Complete Yamilka Plata, MAGALIE.CLUTCH SPECIALIST 1 of 1 cycle started Resolved [...]
--- OUTSIDE RECORDS SUMMARY | 2025-03-23 20:08 | XMS_ITS | Clinical Summary ---
Author Organization [facility] Address [address] [facility] [place] [address] Care Team Providers Care Manager Completions Name Role Phone Unavailable Primary Care Provider Unavailabl e Source Comments The following information is NOT included in Care Everywhere downloads:Psychiatric notes, ECG results, Cardiac Rehab notes, Pulmonary Function notes, data from [employer] (includes but not limited toPregnancy data,audiograms, eye exams, pre-surgical evaluation notes, well-child exam data).[facility] Allergies Active Allergy Reactions Criticality Noted Date Comments Piperacillin-Tazobactam In D5w Other 11/22 Medications No known medications Active Problems Problem Noted Date Diagnosed Date Hemorrhage of gastrointestinal tract, unspecifie d 11/24/2010 Social History Tobacco Use Types Packs/Day Years Used Date Smoking Tobacco: Never Assessed Sex and Gender Information Value Date Recorded Sex Assigned at Not on file Legal Sex Male 1:16 PM EST Gender Identity Not on file Sexual Orientation Not on file Last Filed Vital Signs Vital Sign Reading Time Taken Comments Blood Pressure 111/75 11/24/2010 11:40 AM EDT Pulse 86 11/24/2010 11:40 AM EDT Temperature 36.8 C (98.2 F) 11/24/2010 11:40 AM EDT Respiratory Rate 6 11/24/2010 11:40 AM EDT Oxygen Saturation 95% 11/24/2010 11:40 AM EDT Inhaled Oxygen Concentration - - Weight 109.8 kg (242 lb) 11/22/2010 8:23 PM EDT Height 188 cm (6' 2 ) 11/22/2010 8:23 PM EDT Body Mass Index 31.07 11/22/2010 8:23 PM EDT Plan of Treatment Health Maintenance Due Date Last Done Comments Hepatitis C Antibody 1965 Tdap Booster 1965 Hepatitis A (HAV) Vaccine (optional start 19+ years) 0 1966 Tetanus (Td or Tdap) Booster 1966 Pneumococcal Vaccine(s) (50+ yrs) (1 of 1 - PCV) 06/20 Shingles (RZV) Vaccine (1 of 2) 1997 Hepatitis B (HBV) Vaccine (optional start 60+ years) 0 2007 Annual Wellness Visit (G0438) 06/04/2011 RSV vaccine (adult) (1 - 1-dose 75+ series) 2022 COVID-19 Vaccine ( - 2023- season) 2025 Influenza Vaccine (#1) 2025 Insurance MEDICARE - [place] Advance Directives * Full Code (Latest Code Status on File) Date Activated Date Inactivated Comments 11/22/2010 7:41 PM 11/23/2010 7:01 PM
--- OUTSIDE RECORDS SUMMARY | 2025-03-23 20:08 | XMS_ITS | Clinical Summary ---
Author Organization [facility] Address [address] [place] [address] Care Team Providers Care Machine Former Name Role Phone Gerry Barton DO Primary Care Provider [phone] Allergies Active Allergy Reactions Criticality Noted Date [...] 08/27/2009 Overview (09/22/2009): Day: Protocol(s): Preparative regimen: Bu/Cy/GEOPHYSICAL LABORATORY CHIEF Mobilization regimen: GEOPHYSICAL LABORATORY CHIEF/G Stem cell source: PSC CD34 cell dose [...] N ot on file 2022 Data from: https://www.neighborhoodatlas.medicine.[facility].edu/. Last address used for calculation [address] 2022 Sex and Gender Information [...] Vaccine (1 - 1-dose 75+ series) 2022 Diabetes Screening 03/23/2024 03/23/2021, 1 07/03/2018, 05/02/2019, Additional history exists Advance Directive Discussion 06/04/2024 Covid-19 Vaccine ( - 2024-2 6 season) 2025 02/23/2022, 09/13/2021, 01/17/2021, Additional history exists Influenza Vaccine (#1) 2025 , 02/25/2021, 02/05/2020, Additional history exists Shingrix Vaccine [...] TEST (03/23/2021 1:57 PM EDT) Pathologist [facility] Occult Blood, Stool Negative Negative 04/04/2021 2:57 PM EDT [facility] Comment: This test was developed and its performance characteristics determined by [facility]'s Dany Cesar [facility] Pathology and Laboratory Medicine [place] ([facility]). It has not been cleared or approved by the FDA. [facility] is regulated under CLIA as qualified to perform high complexity testing. This test is used for clinical purposes. It should not be regarded as investigational or for research. Stool Random STOOL SPECIMEN / Unknown 03/23/2021 1:57 PM EDT 04/04/2021 2:57 PM EDT Yamilka Plata LATHE OPERATOR.[facility] Final Re sult [facility] [address] [place] [address] [facility] [address] [place] [address] * (ABNORMAL) COMP METABOLIC PANEL (03/23/2021 1:05 PM EDT) [facility] Protein, Total 6.2(L) 6.3 - 8.0 g/dL [...] EDT [facility] Comment: The [place] Diabetes Association (ADA) provides guidance for cutoff [...] Standards of Medical Care in Diabetes 2016, [place] Diabetes Association. Diabetes Care. 2016.39(Suppl 1). BUN [...] Races 25 . 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
--- OUTSIDE RECORDS SUMMARY | 2025-03-23 20:08 | XMS_ITS | Encounter Summary ---
Author Organization [facility] Address [id number] [address] [place] [address] Care Team Providers Care Shingle Sawyer Name Role Phone Gerry Barton DO Primary Care Provider [phone] Encounter Details Date Type Department Care Team (Late st Contact Info) Description 02/07/2022 Orders Only [facility] [address] [place] [id number] Transcribe, Orders Support User Pain (Primary [...] pain documented in this encounter Care Teams Shingle Sawyer Relationship Specialty Start Date End Date Gerry Barton DO [address] [place] [address] PCP - General Internal Medicine 03/20/22 documented as of this encounter
--- OUTSIDE RECORDS SUMMARY | 2025-03-23 20:08 | XMS_ITS | Clinical Summary ---
Author Organization [facility] Address [address], [address] [place] [address] Care Team Providers Care Can Line Operator Name Role Phone Gerry Barton DO Primary Care Provider [phone] Allergies Active Allergy Reactions Criticality Noted Date [...] of Treatment Not on file Care Teams Can Line Operator Relationship Specialty Start Date End Date Gerry Barton DO [address] [place] [address] PCP - General 04/08/13
--- OUTSIDE RECORDS SUMMARY | 2025-03-23 20:09 | XMS_ITS | CCD ---
Author Organization [facility] Care Team Providers Care Intercell Connector Placer Name Role Phone Bernardo Gerry Primary Care Provider MARYJO KIDD Referring Unavailable BERNARDO, GERRY Mann Primary Care Unavailable KENDALL HONEYCUTT Attending Unavailable KINGS JONES Referring Unavailable BERNARDO, GERRY Mann Primary Care Unavailable YOLY BOSS Referring Unavailable BERNARDO, GERRY Mann Primary Care Unavailable GERRY CHANG Primary Care Physician [phone] Bernardo, Gerry Unavailable BERNARDO, DR CONDON Primary Care Unavailable BALL, DR CONDON Consulting Unavailable BALL, DR CONDON Admitting Unavailable BALL, DR CONDON Attending Unavailable GRILLIS ., DR BLADIMIR Mann Attending Unavaila ble GRILLIS ., DR BLADIMIR Mann Admitting Unavaila ble GRILLIS ., DR BLADIMIR Mann Consulting Unavaila ble BALL, DR CONDON Primary Care Unavailable [place], DR ALONZO Hernandez Consulting Unavailable BALL, DR [...] BALL, DR CONDON Consulting Unavailable BALL, DR CODNON Attending Unavailable BALL, DR CONDON Admitting Unavailable [...] Unavailable Ball, DO Gerry Primary Care Provider [phone] DO Gerry Nelson Attending Provider Gerry Nelson Attending Unavailable Ball, Gerry Primary Care Unavailable Murcek, Gerry Admitting Unavailable Murcek, Gerry Admitting Unavailable Murcek, Gerry Attending Unavailable Ball, Gerry Primary Care Unavailable Gerry Chang MD Primary Care Provider Talib Gant MD Unavailable MurGerry patel DO Unavailable TALIB GANT Attending Unavailable MURCEK, GERRY Booker Attending Unavailable PETITTI, TALIB Leon Referring Unavailable MURCEK, GERRY Booker Attending Unavailable MURCEK, GERRY Booker Attending Unavailable BALL, GERRY Mann Referring Unavailable MURCEK, GERRY Booker Attending Unavailable PETITTI, TALIB A Referring Unavailable MURCEK, GERRY Booker Attending Unavailable HERNANDEZROCKY Attending Unavailable FELTDAQUAN, ASHLEY Leon Attending Unavailable TIMOTEO DUKES Attending Unavailab TIMOTEO Mendoza Admitting Unavailab le JADE, Jenaro R Admitting Unavailable HANSEN, Jenaro R Attending Unavailable HANSEN, Jenaro R Attending Unavailable TIMOTEO DUKES Attending Unavailab le Gerry Chang DO Primary Care Provider Jenaro Hansen MD Attending Provider Vaishali Howell MD Attending Provider [phone] Aileen Dukes PA-C Attending Provider Bernardo TEJADA, Gerry Attending Provider Bernardo TEJADA, Gerry Primary Care Provider Jenaro Hansen MD Attending Provider Gerry Chang DO Primary Care Provider Vaishali Howell MD Attending Provider HANSEN, Jenaro R Attending Unavailable HANSEN, Jenaro R Attending Unavailable GERRY CHANG Referring Unavailable HANSEN, Jenaro R Attending Unavailable HANSEN, Jenaro R Attending Unavailable HANSEN, Jenaro R Admitting Unavailable HANSEN, Jenaro R Attending Unavailable Gerry Chang DO Primary Care Provider Vaishali Howell MD Attending Provider [phone] Gerry Chang DO Primary Care Provider Bernardo TEJADA, Gerry Attending Provider Allergies Allergy Classification Reported Allergen(s) Allergy Type Date of Onset Reaction(s) Facility (19 sources) Ketorolac; Translations: [KETOROLAC] Drug Allergy 09-23-19 21 Unknown, Unknown (qualifier value) [facility] (19 sources) Piperacillin / tazobactam; Translations: [PIPERACILLIN-TA ZOBACTAM] Drug Allergy 09-14-19 10 Rash, Eruption of skin (disorder) [facility] (14 sources) Vorinostat; Translations: [vorinostat] Drug Allergy 08-21-19 24 Unknown (qualifier value) [facility] (4 sources) Ketorolac; Translations: [Toradol] Drug Allergy [facility] (1 source) Piperacillin / tazobactam Drug Allergy 01-15-20 16 [facility] (4 sources) tazobactam; Translations: [tazobactam] Drug Allergy 11-05-19 23 [facility] (3 sources) patient allergy list reviewed by nurse or physicia Propensity to adverse reactions 12-26-19 19 Comment:Done [facility] Other (3 sources) Allergies Reconciled Propensity to adverse reactions Unknown [facility] Other (4 sources) Piperacillin Drug Allergy 08-22-19 24 Redness of Skin [facility] Repository Comment on above: turned purple (3 sources) Ketorolac Allergy to substance 09-24-19 21 Unknown [facility] Work Phone: (3 sources) Ketorolac trometamol Allergy to substance 07-25-19 24 Unknown [facility] (3 sources) Piperacillin Drug Allergy 08-22-19 24 [facility] (3 sources) Piperacillin / tazobactam Drug Allergy 09-15-19 10 Rash [facility] (3 sources) Vorinostat Drug Allergy 08-22-19 24 Unknown [facility] Work Phone: (3 sources) Piperacillin Sod-Tazobactam So Drug Intolerance 04-10-20 13 Other [facility] (3 sources) tazobactam; Translations: [tazobactam] Drug Allergy 11-05-19 23 Unknown [facility] Medications Current Medications Medication Drug Class(es) Dates [...] 11/27/19 Status: Ordered take 1 tablet by [facility] once daily, then take 1 tablet by [...] by mouth in the morning. Active calcitriol 0.81294 mg oral capsule (18 sources) Vitamin D3 Analog Start: take 1 capsule by mouth three times weekly Start: 12-29-2024 End: 01-26-2025 Calcitriol 0.25 mcg capsule Discontinued 0 .ROUTE .COMPLEX 36 December 29, 2024 10:27am January 26, 2025 1:39pm TAKE 1 CAPSLUE 3 TIMES A WEEK. ADMINISTER AFTER DIALYSIS ON DIALYSIS DAYS Start: 10-06-2024 take 1 capsule by [facility] once daily calcitriol 0.25 mcg Cap 0.25 [...] days calcium carbonate 1500 mg oral tablet (12 sources) Start: 10-06-2024 take 1 tablet by mouth once daily calcium (as carbonate) 600 mg oral tablet 600 mg = 1 tab(s), Oral, Daily Start Date: 10/06/24 Status: Ordered Repeat number: 1 Start: 05-05-2024 take 1 tablet by mouth once da arpit carvedilol 6.25 mg oral tablet (20 sources) alpha-Adrenergic Luli, beta-Adrenergic Luli Start: 01-26-2025 take 1 tablet by mouth twice daily Start: 11-15-2023 End: 01-26-2025 take 1 tablet by mouth twice daily Carvedilol 6.25 mg tablet Discontinued 0 .ROUTE .COMPLEX 180 3 October 30, 2024 7:23am January 26, 2025 1:39pm TAKE 1 TABLET BY MOUTH TWICE A [...] day(s) Active gabapentin 100 mg oral capsule (14 sources) Anti-epileptic Agent Start: 02-08-2025 take 1 capsule by mouth once daily in the evening Start: 07-30-2024 End: 02-08-2025 take 1 capsule by mouth once daily in the evening Gabapentin 100 mg capsule Discontinued 100 MG PO Daily August 28, 2024 5:03pm February 08, 2025 8:37am Take in evening daily glimepiride 4 mg oral tablet (20 sources) Sulfonylurea Start: 01-26-2025 take 1 tablet by gonzalo th twice daily Start: 11-19-2023 End: 01-26-2025 take 2 tablets by mouth once daily in the morning Glimepiride 4 mg tablet Discontinued 0 .ROUTE .COMPLEX 180 3 November 23, 2024 5:12pm January 26, 2025 1:39pm TAKE 2 TABLETS BY MOUTH EVERY MORNING [...] ml insulin glargine 100 unt/ml pen injector (12 sources) Insulin Analog Start: inject 8 [IU] [...] (20 sources) Angiotensin Converting Enzyme Inhibitor Start: 01-26-2025 take 1 tablet by mouth once daily Start: 09-18-2023 End: 01-26-2025 take 1 tablet by mouth once daily Lisinopril 2.5 mg tablet Discontinued 0 .ROUTE .COMPLEX 90 3 September 07, 2024 2:55pm January 26, 2025 1:39pm TAKE 1 TABLET BY MOUTH EVERY DAY Start: 11-27-2019 End: 09-18-2023 take 1 tablet by mouth once daily at bedtime Lisinopril 2.5 mg tablet Discontinued 2.5 MG PO Daily at bedtime July 25, 2023 1:00am September 18, 2023 1:24pm Start: 11-27-2019 lisinopril Ora l, Daily, Refills(s) 0 Start Date: 11/27/19 Status: Ordered Comment on above: Take 2.5 mg by mouth once daily. Magnesium Aspart,Citrate,Oxide 400 mg magnesium capsule (13 sources) Start: 10-29-2024 take 1 capsule by mouth once daily Start: 10-29-2024 take 1 capsule by mo ut once daily Magnesium Aspart,Citrate,Oxide 400 mg magnesium [...] Feb, Active SITagliptin 25 mg oral tablet (13 sources) Dipeptidyl Peptidase 4 Inhibitor Start: 02-02-2025 take 1 tablet by mouth once daily Start: 07-07-2024 End: 02-02-2025 take 1 tablet by mouth once daily Sitagliptin Phosphate (Januvia) 25 mg tablet Discontinued 25 MG PO Daily 30 30 5 July 07, 2024 1:00am February 02, 2025 4:35pm Completed/Discontinued Medications Medication Drug Class(es) Dates Sig [...] procedure, # 2 tab(s), Refills(s) 0, Pharmacy: [facility]/pharmacy #[id number], 187, cm, 10/16/24 8:21:00 EDT, Height/Length [...] 5 mg tablet Discontinued 0 .ROUTE .COMPLEX 30 March 11, 2024 5:20pm July 07, 2024 [...] tablet Discontinued 50 MG PO Twice daily 28 14 0 November 23, 2023 4:25pm May 05, 2024 3:51pm Herpes zoster Zoster with other complications Start: 11-15-2023 End: 11-22-2023 take 1 tablet by mouth once daily at bedtime Tramadol 50 mg tablet Discontinued 50 MG PO Daily at bedtime 7 7 0 November 15, 2023 12:00am November 22, 2023 6:10pm Herpes zoster Zoster with other complications valACYclovir 1000 mg oral tablet (14 sources) Herpesvirus Nucleoside Analog DNA Polymerase Inhibitor, Herpes Simplex Virus Nucleoside Analog DNA Polymerase Inhibitor, Herpes Zoster Virus Nucleoside Analog DNA Polymerase Inhibitor Start: 11-02-2023 End: 11-28-2023 Valacyclovir 1 gram tablet Discontinued 1000 MG PO Three times daily 21 7 0 November 02, 2023 12:00am November 28, 2023 8:54am Start: 11-02-2023 End: 11-28-2023 take 1000 mg by mouth three times daily Valacyclovir Discontinued 1000 MG PO Three times daily 21 7 November 02, 2023 12:00am November 28, 2023 8:54am [...] Resolved: 4 Chronic Fluid and electrolyte disorders (11 sources) Hyperkalemia; Translations: [Hyperkalemia] 10-29-2024 Episodic Genitourinary symptoms and ill-defined conditions (20 sources) Proteinuria; Translations: [Asymptomatic microscopic hematuria] Onset: 4 12-01-2019 Episodic Hyperplasia of prostate (20 sources) Benign prostatic hyperplasia; Translations: [Benign prostatic hyperplasia without lower urinary tract symptoms] Onset: 0 Chronic Hypertension with complications and secondary hypertension (20 sources) Hypertensive chronic kidney disease with stage [...] 2 Episodic Other aftercare (2 sources) Other [facility] (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; Translations: [OTH BAGGING SALVAGER CURRENT DRUG THERAPY] Onset: 2 Episodic Other aftercare (3 sources) Long-term current use of 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; Translations: [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] Episodic Other aftercare (4 sources) H/O: high risk medication; Translations: [Other [facility] (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] Episodic Other and unspecified [...] Episodic Other diseases of kidney and ureters (15 sources) Secondary hyperparathyroidism; Translations: [Secondary hyperparathyroidism of [...] Episodic Other diseases of kidney and ureters (9 sources) Acquired renal cystic disease; Translations: [Cyst [...] Chronic Other nutritional; endocrine; and metabolic disorders (17 sources) Obesity; Translations: [Obesity, unspecified] 03-31-2024 Chronic Other nutritional; endocrine; and metabolic disorders (1 source) Other obesity due to excess calories Chronic Other nutritional; endocrine; and metabolic disorders (1 source) Body mass index (BMI) 30.0-30.9, adult Chronic Other nutritional; endocrine; and metabolic disorders (3 sources) Obesity, unspecified; Translations: [Obesity, unspecified] 03-31-2024 Chronic Other nutritional; endocrine; and metabolic disorders (14 sources) Hypomagnesemia; Translations: [Hypomagnesemia] 07-21-2024 Chronic Other [...] and visceral atherosclerosis (3 sources) 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; Translations: [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, unspecified] Chronic Residual [...] Atrophy of left kidney 04-14-2024 Viral infection (20 sources) Herpes zoster; Translations: [Zoster without complications] [...] Onset: 8 Episodic Other aftercare (1 source) senior care (current) use of oral hypoglycemic drugs; Translations: [LONG-TERM USE ORAL HYPOGLYCEMIC DX] Onset: 2 Episodic [...] Test Name Value Interpretation Reference Range Facility Erythrocyte distribution wid th Auto (RBC) [Ratio]Ordered By: Vaishali Howell on 01-19-2025 Erythrocyte distribution width (RBC) [Ratio] 12.6 % 11.0-15.0 [facility] Glomerular filtration rate ( GFR) estimation in non- AmericanOrdered By: Vaishali Howell on 01-19-2025 GFR/1.73 sq M.predicted among non-blacks MDRD (S/P/Bld) [Vol rate/Area] 18 mL/min/{1.73_m2} Low >=60 mL/min/1.73 m 2 [facility] Hematocrit Auto (Bld) [Volum e fraction]Ordered By: Vaishali Howell on 01-19-2025 Hematocrit (Bld) [Volume fraction] 32.9 % Low 42.0-54.0 [facility] Hemoglobin [Mass/volume] in BloodOrdered By: Vaishali Howell on 01-19-2025 Hemoglobin (Bld) [Mass/Vol] 11.5 g/dL Low 14.0-18.0 [facility] Iron binding capacity [Mass/ volume] in Serum or PlasmaOrdered By: Vaishali Howell on 01-19-2025 Iron binding capacity [Mass/Vol] 248.0 ug/dL Low 250.0-450.0 [facility] Iron saturation [Mass Fracti on] in Serum or PlasmaOrdered By: Vaishali Howell on 01-19-2025 Iron saturation [Mass fraction] 26.6 % [facility] Laboratory - Chemistry and C hemistry - challengeOrdered By: Vaishali Howell on 01-19-2025 Bilirubin Ql (U) Negative NEGATIVE [facility] Glucose (U) [Mass/Vol] 250 mg/dL Abnormal NEGATIVE [facility] Ketones Ql (U) TRACE mg/dL Abnormal NEGATIVE [facility] pH (U) 6.0 [pH] 5.0-9.0 [facility] Specific gravity (U) [Rel density] 1.025 1.005-1.025 [facility] Urobilinogen Qn (U) 0.2 {Bisi'U}/dL 0.2-1.0 [facility] Albumin [Mass/Vol] 3.7 g/dL 3.4-5.0 [facility] Calcium [Mass/Vol] 8.3 mg/dL Low 8.5-10.1 [facility] Chloride [Moles/Vol] 108 mmol/L High 98-107 [facility] CO2 [Moles/Vol] 22.1 mmol/L 21.0-32.0 [facility] Creatinine [Mass/Vol] 3.38 mg/dL High 0.70-1.30 [facility] Ferritin [Mass/Vol] 199.0 ng/mL 26.0-388.0 [facility] GFR/1.73 sq M.predicted MDRD (S/P/Bld) [Vol rate/Area] 22 mL/min/{1.73_m2} Low >=60 mL/min/1.73 m 2 [facility] Glucose [Mass/Vol] 131 mg/dL High 74-106 [facility] Iron [Mass/Vol] 66.0 ug/dL 65.0-175.0 [facility] Magnesium [Mass/Vol] 1.9 mg/dL 1.8-2.4 [facility] Potassium [Moles/Vol] 4.6 mmol/L 3.5-5.1 [facility] Sodium [Moles/Vol] 141 mmol/L 136-145 [facility] Urate [Mass/Vol] 5.0 mg/dL 3.5-7.2 [facility] Urea nitrogen [Mass/Vol] 44.0 mg/dL High 7.0-18.0 [facility] Urea nitrogen/Creatinine [Mass ratio] 13.0 mg/mg [facility] Laboratory - Specimen inform ationOrdered By: Vaishali Howell on 01-19-2025 Appearance (U) CLEAR CLEAR [facility] Color (U) LT. YELLOW YELLOW [facility] Laboratory - UrinalysisOrder ed By: Vaishali Howell on 01-19-2025 Leukocyte esterase Test strip Ql (U) TRACE Abnormal NEGATIVE [facility] Mucus Ql (Urine sed) NONE SEEN NONE SEEN [facility] Nitrite Ql (U) Negative NEGATIVE [facility] Protein (U) [Mass/Vol] 137.6 mg/dL High <=11.9 [facility] Protein Ql (U) 100 mg/dL Abnormal NEG/TRACE [facility] Leukocytes [#/volume] correc yoseph for nucleated erythrocytes in Blood by Automated counOrdered By: Vaishali Howell on 01-19-2025 WBC corrected for nucl RBC Auto (Bld) [#/Vol] 5.7 10 3/uL 4.0-11.0 [facility] MCH Auto (RBC) [Entitic mass ]Ordered By: Vaishali Howell on 01-19-2025 MCH (RBC) [Entitic mass] 33.4 pg 25.9-34.0 [facility] MCHC Auto (RBC) [Mass/Vol]Or dered By: Vaishali Howell on 01-19-2025 MCHC (RBC) [Mass/Vol] 35.0 g/dL 29.9-35.2 [facility] MCV Auto (RBC) [Entitic vol] Ordered By: Vaishali Howell on 01-19-2025 MCV (RBC) [Entitic vol] 95.6 fL High 80.0-94.0 [facility] No Panel InformationOrdered By: Vaishali Howell on 01-19-2025 Urine Bacteria TRACE #/HPF Abnormal NONE SEEN [facility] Urine Occult Blood TRACE-I NEGATIVE [facility] Urine Other Casts NONE SEEN #/LPF NONE SEEN [facility] Urine Other Crystals None Seen #/HPF None Seen [facility] Urine Random Creatinine 161.73 mg/dL 20.0 0-300.0 0 [facility] Urine RBC 0-2 #/HPF 0-2 [facility] Urine Squamous Epithelial Cells FEW #/LPF Abnormal NONE/RARE [facility] Urine WBC 2-5 #/HPF Abnormal NONE SEEN [facility] 25-Hydroxy Vitamin D Total 44.9 ng/mL [facility] Comment on above: <20 ng/mL Vit D defi cient20-<30 ng/mL Vit D [id number] ng/mL Vit D sufficient>100 ng/mL Potential Toxicity Parathyroid Hormone (Intact) 160 pg/mL Abnormal 15-65 [facility] Comment on above: Performed at: [facility] [address] [id number] Director: Karel Kaye PhD, Phone: [phone] Phosphorus Level 3.6 mg/dL 2.6-4.7 [facility] Platelet mean volume Auto (B ld) [Entitic vol]Ordered By: Vaishali Howell on 01-19-2025 Platelet mean volume (Bld) [Entitic vol] 8.7 fL Low 9.5-13.5 [facility] Platelets Auto (Bld) [#/Vol] Ordered By: Vaishali Howell on 01-19-2025 Platelets (Bld) [#/Vol] 128 10 3/uL Low 150-450 [facility] RBC Auto (Bld) [#/Vol]Ordere d By: Vaishali Howell on 01-19-2025 RBC (Bld) [#/Vol] 3.44 10 6/uL Low 4.70-6.10 [facility] Serum or plasma anion gap de terminationOrdered By: Vaishali Howell on 01-19-2025 Anion gap [Moles/Vol] 15.5 mmol/L [facility] Urine protein/creatinine rat ioOrdered By: Vaishali Howell on 01-19-2025 Protein/Creatinine (U) [Ratio] 0.85 [facility] HbA1c HPLC (Bld) [Mass fract ion]Ordered By: Gerry Chang on 11-28-2024 HbA1c (Bld) [Mass fraction] 7.2 % [facility] Estimated glomerular filtrat ion rate (GFR) non- Americanon 10-24-2024 GFR/1.73 sq M.predicted among non-blacks MDRD (S/P/Bld) [Vol rate/Area] Estimated glomerular filtration rate (GFR) non- Low >=60 mL/min/1.73 m 2 [facility] GFR/1.73 sq M.predicted among non-blacks MDRD (S/P/Bld) [Vol rate/Area] 19 mL/min/{1.73_m2} Low >=60 mL/min/1.73 m 2 [facility] Laboratory - Chemistry and C hemistry - challengeon 10-24-2024 Creatinine [Mass/Vol] 3.25 mg/dL High 0.70-1.30 [facility] GFR/1.73 sq M.predicted MDRD (S/P/Bld) [Vol rate/Area] 23 mL/min/{1.73_m2} Low >=60 mL/min/1.73 m 2 [facility] Urea nitrogen [Mass/Vol] 45.0 mg/dL High 7.0-18.0 [facility] Urine Cytology ([facility])on 10-21-2024 Microscopic exam Cytology (U) [Interp] Diagnosis Info Invalid Interpretation Code [facility] Comment on above: Result Comment: A:Ur ine,Clean Catch:Bladder Wash Interpretation - Adequate cellularity for evaluation. CPT 86780 MicroScopic Description - Adequacy - Gross Description Site ID:A color Yellow fixative Alcohol Specimen designated Clean Catch received in alcohol preservative and labeled with the patient???s name, consists of 80ml slightly cloudy yellow fluid. Electronically signed by : on: 10/21/2024 13:22:38 Performed By: #### 1 [id number] #### [facility] [address] [place] [address] Erythrocyte distribution wid th Auto (RBC) [Ratio]on 10-20-2024 Erythrocyte distribution width (RBC) [Ratio] Erythrocyte distribution width [Ratio] by Automated count 11.0-15.0 [facility] Erythrocyte distribution width (RBC) [Ratio] 12.1 % 11.0-15.0 [facility] Estimated glomerular filtrat ion rate (GFR) non- Americanon 10-20-2024 GFR/1.73 sq M.predicted among non-blacks MDRD (S/P/Bld) [Vol rate/Area] Estimated glomerular filtration rate (GFR) non- Low >=60 mL/min/1.73 m 2 [facility] GFR/1.73 sq M.predicted among non-blacks MDRD (S/P/Bld) [Vol rate/Area] 17 mL/min/{1.73_m2} Low >=60 mL/min/1.73 m 2 [facility] Hematocrit Auto (Bld) [Volum e fraction]on 10-20-2024 Hematocrit (Bld) [Volume fraction] Hematocrit [Volume Fraction] of Blood by Automated count Low 42.0-54.0 [facility] Hematocrit (Bld) [Volume fraction] 34.7 % Low 42.0-54.0 [facility] Hemoglobin [Mass/volume] in Bloodon 10-20-2024 Hemoglobin (Bld) [Mass/Vol] Hemoglobin [Mass/volume] in Blood Low 14.0-18.0 [facility] Hemoglobin (Bld) [Mass/Vol] 11.9 g/dL Low 14.0-18.0 [facility] Iron binding capacity [Mass/ volume] in Serum or Plasmaon 10-20-2024 Iron binding capacity [Mass/Vol] Iron binding capacity [Mass/volume] in Serum or Plasma 250.0-450.0 [facility] Iron binding capacity [Mass/Vol] 257.0 ug/dL 250.0-450.0 [facility] Iron saturation [Mass Fracti on] in Serum or Plasmaon 10-20-2024 Iron saturation [Mass fraction] Iron saturation [Mass Fraction] in Serum or Plasma [facility] Iron saturation [Mass fraction] 22.6 % [facility] Laboratory - Chemistry and C hemistry - challengeon 10-20-2024 Albumin [Mass/Vol] 3.5 g/dL 3.4-5.0 [facility] Calcium [Mass/Vol] 8.9 mg/dL 8.5-10.1 [facility] Chloride [Moles/Vol] 105 mmol/L 98-107 [facility] CO2 [Moles/Vol] 24.1 mmol/L 21.0-32.0 [facility] Creatinine [Mass/Vol] 3.53 mg/dL High 0.70-1.30 [facility] Ferritin [Mass/Vol] 195.0 ng/mL 26.0-388.0 [facility] GFR/1.73 sq M.predicted MDRD (S/P/Bld) [Vol rate/Area] 21 mL/min/{1.73_m2} Low >=60 mL/min/1.73 m 2 [facility] Glucose [Mass/Vol] 192 mg/dL High 74-106 [facility] Iron [Mass/Vol] 58.0 ug/dL Low 65.0-175.0 [facility] Magnesium [Mass/Vol] 2.0 mg/dL 1.8-2.4 [facility] Potassium [Moles/Vol] 5.5 mmol/L High 3.5-5.1 [facility] Sodium [Moles/Vol] 138 mmol/L 136-145 [facility] Urate [Mass/Vol] 5.2 mg/dL 3.5-7.2 [facility] Urea nitrogen [Mass/Vol] 47.0 mg/dL High 7.0-18.0 [facility] Urea nitrogen/Creatinine [Mass ratio] 13.3 mg/mg [facility] Laboratory - Urinalysison Protein (U) [Mass/Vol] 124.3 mg/dL High <=11.9 [facility] Leukocytes [#/volume] correc yoseph for nucleated erythrocytes in Blood by Automated counon 10-20-2024 WBC corrected for nucl RBC Auto (Bld) [#/Vol] Leukocytes [#/volume] corrected for nucleated erythrocytes in Blood by Automated coun 4.0-11.0 [facility] WBC corrected for nucl RBC Auto (Bld) [#/Vol] 10.9 10 3/uL 4.0-11.0 [facility] MCH Auto (RBC) [Entitic mass ]on 10-20-2024 MCH (RBC) [Entitic mass] MCH [Entitic mass] by Automated count 25.9-34.0 [facility] MCH (RBC) [Entitic mass] 33.1 pg 25.9-34.0 [facility] MCHC Auto (RBC) [Mass/Vol]on 10-20-2024 MCHC (RBC) [Mass/Vol] MCHC [Mass/volume] by Automated count 29.9-35.2 [facility] MCHC (RBC) [Mass/Vol] 34.3 g/dL 29.9-35.2 [facility] MCV Auto (RBC) [Entitic vol] on 10-20-2024 MCV (RBC) [Entitic vol] MCV [Entitic vol ume] by Automated count High 80.0-94.0 [facility] MCV (RBC) [Entitic vol] 96.4 fL High 80.0-94.0 [facility] No Panel Informationon 10-20 25-Hydroxy Vitamin D Total 43.4 ng/mL [facility] Comment on above: <20 ng/mL Vit D defi cient20-<30 ng/mL Vit D [id number] ng/mL Vit D sufficient>100 ng/mL Potential Toxicity Parathyroid Hormone (Intact) 100 pg/mL Abnormal 15-65 [facility] Comment on above: Performed at: [facility] [place] [id number] Director: Karel Kaye PhD, Phone: [phone] Phosphorus Level 3.7 mg/dL 2.6-4.7 [facility] Urine Random Creatinine 119.43 mg/dL 20.0 0-300.0 0 [facility] Platelet mean volume Auto (B ld) [Entitic vol]on 10-20-2024 Platelet mean volume (Bld) [Entitic vol] Platelet mean volume [Entitic volume] in Blood by Automated count Low 9.5-13.5 [facility] Platelet mean volume (Bld) [Entitic vol] 8.9 fL Low 9.5-13.5 [facility] Platelets Auto (Bld) [#/Vol] on 10-20-2024 Platelets (Bld) [#/Vol] Platelets [#/vol ume] in Blood by Automated count 150-450 [facility] Platelets (Bld) [#/Vol] 157 10 3/uL 150-450 [facility] RBC Auto (Bld) [#/Vol]on RBC (Bld) [#/Vol] Erythrocytes [#/volu me] in Blood by Automated count Low 4.70-6.10 [facility] RBC (Bld) [#/Vol] 3.60 10 6/uL Low 4.70-6.10 [facility] Serum or plasma anion gap de terminationon 10-20-2024 Anion gap [Moles/Vol] Serum or plasma an ion gap determination [facility] Anion gap [Moles/Vol] 14.4 mmol/L Fi [facility] Urine protein/creatinine rat ioon 10-20-2024 Protein/Creatinine (U) [Ratio] Urine protein/creatinine ratio [facility] Protein/Creatinine (U) [Ratio] 1.04 [facility] Urine Cytology ([facility])on 0 10-16-2024 [facility] Method of Extraction Bladder Urine Normal [facility] Comment on above: Performed By: #### 1 [id number] #### [facility] [address] Number of Jars 1 Invalid Interpretation Code [facility] Comment on above: Performed By: #### 1 [id number] #### [facility] [address] Specimen Clean Catch Normal [facility] Comment on above: Performed By: #### 1 [id number] #### [facility] [address] Type of Service Technical Only Normal [facility] Comment on above: Performed By: #### 1 [id number] #### [facility] [address] [place] [address] Urology Office/Clinic Noteon 10-16-2024 Urology Office/Clinic Note [...] E&M of Est. Patient Moderate 30-39 Min 43761 Influenza immunization status assessed 1030F Medication list [...] Urnls Dip Stick Auto w/o Microscopy POC 40930 Orders: ciprofloxacin, 500 mg = 1 tab(s), Oral, Daily, Take 1 tablet the day before the procedure and 1 tablet after the procedure, # 2 tab(s), Refills(s) 0, Pharmacy: [facility]/pharmacy #[id number], 187, cm, 10/16/24 8:21:00 EDT, Height/Length Dosing, 104.3, kg, 10/16/24 8:21:00 EDT,... Follow-up With When Contact Information [facility] [place] Additional Instructions: For procedure as scheduled. Patient [...] disease: Mother an (more content not included)... [facility] Comment on above: Result Comment: Elec tronically Signed By: AILEEN DUKES PA-C\Date and Time Signed: 10/16/24 10:11 EDT No Panel Informationon 10-08 Prostate Specific Antigen Total 3.01 ng/mL <=4.00 [facility] Ambulatory Visit Summaryon 0 10-06-2024 Ambulatory Visit [...] with JADE DOYLE, Jenaro Roberto, BERRY When: Where: [facility] [address] , [place] [phone] Medications What How Much When Instructions Unchanged [...] home: Medi (more content not included)... [facility] URINALYSISOrdered By: SYSTEM SYSTEM on [...] that meet specific criteria set forth by [facility]. Epithelial cells.squamous Auto (Urine [...] (U) Trace graded/LPF Normal Negati vegra ded/LPF [facility] UA Auto SS Nitrite Auto test strip Ql (U) Negative Normal Negativemg/ dL [facility] UA Auto SS pH (U) 6.0 *NA* (10/06/24 10:41 AM) Invalid Interpretation Code 5.0 - 9.0 [facility] UA Auto SS Protein Ql (U) 1+ mg/dL Invalid Interpretation Code Negativemg/ dL [facility] UA Auto SS RBC Ql (U) 4-20 graded/HPF Invalid Interpretation Code 0-3graded/H PF [facility] UA Auto SS Specific gravity (U) [Rel density] 1.017 *NA* (10/06/24 10:41 AM) Invalid Interpretation Code 1.005 - 1.030 [facility] UA Auto SS Urobilinogen (U) [Mass/Vol] Negative Normal Negativemg/ dL [facility] UA Auto SS WBC Auto (Urine sed) [#/Area] 0-5 graded/HPF Normal 0-5graded/H PF [facility] UA Auto SS URINALYSISOrdered By: James Dao on 10-06-2024 UA Spec Desc Random Urine (10/06/24 10:41 AM) Normal [facility] UA Auto SS Urinalysis with Microon Bilirubin Ql (U) Negative Normal Negative [facility] Comment on above: Performed By: #### 4 [id number] #### [facility] [address] [place] [address] Clarity (U) Clear Normal Clear [facility] Comment on above: Performed By: #### 4 [id number] #### [facility] [address] [place] [address] Color (U) Light-Yellow Normal Yellow [facility] Comment on above: Result Comment: Micr oscopic readings are only performed on those samples that meet specific criteria set forth by [facility]. Performed By: #### 4 [id number] #### [facility] [address] [place] [address] Epithelial cells.squamous Auto (Urine sed) [#/Area] 0-2 Invalid Interpretation Code [facility] Comment on above: Performed By: #### 4 [id number] #### [facility] [address] [place] [address] Glucose Ql (U) 3+ mg/dL Abnormal Negative [facility] Comment on above: Performed By: #### 4 [id number] #### [facility] [address] [place] [address] Hemoglobin Auto test strip (U) [Mass/Vol] Trace Abnormal Negative [facility] Comment on above: Performed By: #### 4 [id number] #### [facility] [address] [place] [address] Ketones Auto test strip Ql (U) Negative Normal Negative [facility] Comment on above: Performed By: #### 4 [id number] #### [facility] [address] [place] [address] Leukocyte esterase Auto test strip Ql (U) Negative Normal Negative [facility] Comment on above: Performed By: #### 4 [id number] #### [facility] [address] [place] [address] Mucus Auto Ql (U) Trace Normal Negative [facility] Comment on above: Performed By: #### 4 [id number] #### [facility] [address] [place] [address] Nitrite Auto test strip Ql (U) Negative Normal Negative [facility] Comment on above: Performed By: #### 4 [id number] #### [facility] [address] [place] [address] pH (U) 6.0 [pH] Invalid Interpretation Code 5.0-9.0 [facility] Comment on above: Performed By: #### 4 [id number] #### [facility] [address] [place] [address] Protein Ql (U) 1+ mg/dL Abnormal Negative [facility] Comment on above: Performed By: #### 4 [id number] #### [facility] [address] [place] [address] RBC Ql (U) 4-20 Abnormal 0-3 [facility] Comment on above: Performed By: #### 4 [id number] #### [facility] [address] [place] [address] Specific gravity (U) [Rel density] 1.017 Invalid Interpretation Code 1.005-1.030 [facility] Comment on above: Performed By: #### 4 [id number] #### [facility] [address] [place] [address] Urobilinogen (U) [Mass/Vol] Negative Normal Negative [facility] Comment on above: Performed By: #### 4 [id number] #### [facility] [address] [place] [address] WBC Auto (Urine sed) [#/Area] 0-5 Normal 0-5 [facility] Comment on above: Performed By: #### 4 [id number] #### [facility] [address] [place] [address] Type of Urine collection method Random Urine Normal [facility] Comment on above: Performed By: #### 4 [id number] #### [facility] [address] [place] [address] Urology Office/Clinic Noteon 10-06-2024 Urology Office/Clinic Note [...] [facility] [address], [place] [phone] Additional Instructions: 6 mos w/ PSA and KUB Patient Education Hematuria, Adult I, Rochelle Hightower, personally scribed for Dr. Hansen on 10/06/2024 09:15:29. . Documentation recorded by the horaceibRochelle mann, accurately reflects the services(s) I performed and [...] Toradol ( (more content not included)... [facility] Comment on above: Result Comment: Elec tronically Signed By: Jenaro HANSEN MD\.br\Date and Time Signed: 10/06/24 09:17 EDT\.br\Electronically Co-Signed By: Rochelle Hightower\Date and Time Co-Signed: 10/06/24 09:16 EDT No Panel Informationon 09-29 Prostate Specific Antigen Total 3.51 ng/mL <=4.00 [facility] Albumin [Mass/volume] in Ser um or Plasmaon 07-21-2024 Albumin [Mass/Vol] Albumin [Mass/volume ] in Serum or Plasma 2.9-4.4 [facility] IgA [Mass/volume] in Serum o r Plasmaon 07-21-2024 IgA [Mass/Vol] IgA [Mass/volume] in Serum or Plasma 61-437 [facility] IgG [Mass/volume] in Serum o r Plasmaon 07-21-2024 IgG [Mass/Vol] IgG [Mass/volume] in Serum or Plasma 603-1613 [facility] IgM [Mass/volume] in Serum o r Plasmaon 07-21-2024 IgM [Mass/Vol] IgM [Mass/volume] in Serum or Plasma 15-143 [facility] Immunoglobulin light chains. kappa.free [Mass/volume] in Serumon 07-21-2024 Immunoglobulin light chains.kappa.free (S) [Mass/Vol] Immunoglobulin light chains.kappa.free [Mass/volume] in Serum Abnormal 3.3-19.4 [facility] Immunoglobulin light chains. kappa.free/Immunoglobulin light chains.lambda.free [Sean 07-21-2024 Immunoglobulin light chains.kappa.free/Immun oglobulin light chains.lambda.free (S) [Mass ratio] Immunoglobulin light chains.kappa.free/Immun oglobulin light chains.lambda.free [Mass 0.26-1.65 [facility] Comment on above: Performed at: [place] [id number] Director: Karel Kaye PhD, Phone: [phone] Immunoglobulin light chains. lambda.free [Mass/volume] in Serum or Plasmaon 07-21-2024 Immunoglobulin light chains.lambda.free [Mass/Vol] Immunoglobulin light chains.lambda.free [Mass/volume] in Serum or Plasma Abnormal 5.7-26.3 [facility] No Panel Informationon 07-21 Protein Electrophoresis M-Petar Not Observed g/dL Not Observed [facility] Protein Electrophoresis Note Comment . [facility] Comment on above: Protein electrophore sis scan will follow via computer,mail, or radiotelegraph operator servicer delivery. Protein [Mass/volume] in Ser um or Plasmaon 07-21-2024 Protein [Mass/Vol] Protein [Mass/volume ] in Serum or Plasma 6.0-8.5 [facility] Serum globulin measurement ( mass/volume)on 07-21-2024 Globulin (S) [Mass/Vol] Serum globulin measurement (mass/volume) 2.2-3.9 [facility] Serum or plasma albumin/glob ulin mass ratioon 07-21-2024 Albumin/Globulin [Mass ratio] Serum or plasma albumin/globulin mass ratio 0.7-1.7 [facility] Serum or plasma alpha 1 glob ulin measurement by electrophoresis (mass/volume)on 07-21-2024 Alpha 1 globulin Elph [Mass/Vol] Serum or plasma alpha 1 globulin measurement by electrophoresis (mass/volume) 0.0-0.4 [facility] Serum or plasma alpha 2 glob ulin measurement by electrophoresis (mass/volume)on 07-21-2024 Alpha 2 globulin Elph [Mass/Vol] Serum or plasma alpha 2 globulin measurement by electrophoresis (mass/volume) 0.4-1.0 [facility] Serum or plasma beta globuli n measurement by electrophoresis (mass/volume)on 07-21-2024 Beta globulin Elph [Mass/Vol] Serum or plasma beta globulin measurement by electrophoresis (mass/volume) 0.7-1.3 [facility] Serum or plasma gamma globul in measurement by electrophoresis (mass/volume)on 07-21-2024 Gamma globulin Elph [Mass/Vol] Serum or plasma gamma globulin measurement by electrophoresis (mass/volume) 0.4-1.8 [facility] Serum or plasma immunoelectr ophoresis interpretationon 07-21-2024 Interpretation IEP [Interp] Serum or plasma immunoelectrophoresis interpretation . [facility] Comment on above: Presence of monoclon al protein is unclear at this time. Suggestrepeat in 3 to 6 months if clinically indicated. Erythrocyte distribution wid th Auto (RBC) [Ratio]on 07-14-2024 Erythrocyte distribution width (RBC) [Ratio] Erythrocyte distribution width [Ratio] by Automated count 11.0-15.0 [facility] Estimated glomerular filtrat ion rate (GFR) non- Americanon 07-14-2024 GFR/1.73 sq M.predicted among non-blacks MDRD (S/P/Bld) [Vol rate/Area] Estimated glomerular filtration rate (GFR) non- Low >=60 mL/min/1.73 m 2 [facility] Hematocrit Auto (Bld) [Volum e fraction]on 07-14-2024 Hematocrit (Bld) [Volume fraction] Hematocrit [Volume Fraction] of Blood by Automated count Low 42.0-54.0 [facility] Hemoglobin [Mass/volume] in Bloodon 07-14-2024 Hemoglobin (Bld) [Mass/Vol] Hemoglobin [Mass/volume] in Blood Low 14.0-18.0 [facility] Iron binding capacity [Mass/ volume] in Serum or Plasmaon 07-14-2024 Iron binding capacity [Mass/Vol] Iron binding capacity [Mass/volume] in Serum or Plasma 250.0-450.0 [facility] Iron saturation [Mass Fracti on] in Serum or Plasmaon 07-14-2024 Iron saturation [Mass fraction] Iron saturation [Mass Fraction] in Serum or Plasma [facility] Laboratory - Chemistry and C hemistry - challengeon 07-14-2024 Bilirubin Ql (U) Negative NEGATIVE [facility] Glucose (U) [Mass/Vol] 500 mg/dL Abnormal NEGATIVE [facility] Ketones Ql (U) Negative NEGATIVE [facility] pH (U) 6.0 [pH] 5.0-9.0 [facility] Specific gravity (U) [Rel density] 1.025 1.005-1.025 [facility] Urobilinogen Qn (U) 0.2 {Bisi'U}/dL 0.2-1.0 [facility] Albumin [Mass/Vol] 3.6 g/dL 3.4-5.0 [facility] Calcium [Mass/Vol] 8.4 mg/dL Low 8.5-10.1 [facility] Chloride [Moles/Vol] 106 mmol/L 98-107 [facility] CO2 [Moles/Vol] 25.5 mmol/L 21.0-32.0 [facility] Creatinine [Mass/Vol] 3.27 mg/dL High 0.70-1.30 [facility] Ferritin [Mass/Vol] 230.0 ng/mL 26.0-388.0 [facility] GFR/1.73 sq M.predicted MDRD (S/P/Bld) [Vol rate/Area] 22 mL/min/{1.73_m2} Low >=60 mL/min/1.73 m 2 [facility] Glucose [Mass/Vol] 141 mg/dL High 74-106 [facility] Iron [Mass/Vol] 82.0 ug/dL 65.0-175.0 [facility] Magnesium [Mass/Vol] 1.7 mg/dL Low 1.8-2.4 [facility] Potassium [Moles/Vol] 4.7 mmol/L 3.5-5.1 [facility] Sodium [Moles/Vol] 142 mmol/L 136-145 [facility] Urate [Mass/Vol] 5.4 mg/dL 3.5-7.2 [facility] Urea nitrogen [Mass/Vol] 46.0 mg/dL High 7.0-18.0 [facility] Urea nitrogen/Creatinine [Mass ratio] 14.1 mg/mg [facility] Laboratory - Specimen inform ationon 07-14-2024 Appearance (U) CLEAR CLEAR [facility] Color (U) YELLOW YELLOW [facility] Laboratory - Urinalysison Leukocyte esterase Test strip Ql (U) Negative NEGATIVE [facility] Mucus Ql (Urine sed) TRACE Abnormal NONE SEEN [facility] Nitrite Ql (U) Negative NEGATIVE [facility] Protein (U) [Mass/Vol] 101.7 mg/dL High <=11.9 [facility] Protein Ql (U) 100 mg/dL Abnormal NEG/TRACE [facility] Leukocytes [#/volume] correc yoseph for nucleated erythrocytes in Blood by Automated counon 07-14-2024 WBC corrected for nucl RBC Auto (Bld) [#/Vol] Leukocytes [#/volume] corrected for nucleated erythrocytes in Blood by Automated coun 4.0-11.0 [facility] MCH Auto (RBC) [Entitic mass ]on 07-14-2024 MCH (RBC) [Entitic mass] MCH [Entitic mass] by Automated count 25.9-34.0 [facility] MCHC Auto (RBC) [Mass/Vol]on 07-14-2024 MCHC (RBC) [Mass/Vol] MCHC [Mass/volume] by Automated count 29.9-35.2 [facility] MCV Auto (RBC) [Entitic vol] on 07-14-2024 MCV (RBC) [Entitic vol] MCV [Entitic vol ume] by Automated count High 80.0-94.0 [facility] No Panel Informationon 07-14 Urine Bacteria NONE SEEN #/HPF NONE SEEN [facility] Urine Occult Blood TRACE-I NEGATIVE [facility] Urine Random Creatinine 129.70 mg/dL 20.0 0-300.0 0 [facility] Urine RBC 0-2 #/HPF 0-2 [facility] Urine Squamous Epithelial Cells FEW #/LPF Abnormal NONE/RARE [facility] Urine WBC 0-2 #/HPF Abnormal NONE SEEN [facility] 25-Hydroxy Vitamin D Total 35.2 ng/mL [facility] Comment on above: <20 ng/mL Vit D defi cient20-<30 ng/mL Vit D [id number] ng/mL Vit D sufficient>100 ng/mL Potential Toxicity Parathyroid Hormone (Intact) 175 pg/mL Abnormal 15-65 [facility] Comment on above: Performed at: [address] [id number] Director: Karel Kaye PhD, Phone: [phone] Phosphorus Level 3.9 mg/dL 2.6-4.7 [facility] Platelet mean volume Auto (B ld) [Entitic vol]on 07-14-2024 Platelet mean volume (Bld) [Entitic vol] Platelet mean volume [Entitic volume] in Blood by Automated count Low 9.5-13.5 [facility] Platelets Auto (Bld) [#/Vol] on 07-14-2024 Platelets (Bld) [#/Vol] Platelets [#/vol ume] in Blood by Automated count Low 150-450 [facility] RBC Auto (Bld) [#/Vol]on RBC (Bld) [#/Vol] Erythrocytes [#/volu me] in Blood by Automated count Low 4.70-6.10 [facility] Serum or plasma anion gap de terminationon 07-14-2024 Anion gap [Moles/Vol] Serum or plasma an ion gap determination [facility] Urine protein/creatinine rat ioon 07-14-2024 Protein/Creatinine (U) [Ratio] Urine protein/creatinine ratio [facility] Albumin [Mass/volume] in Ser um or Plasmaon 04-11-2024 Albumin [Mass/Vol] Albumin [Mass/volume ] in Serum or Plasma 2.9-4.4 [facility] Hepatitis B virus surface Ab [Presence] in Serumon 04-11-2024 HBV surface Ab Ql (S) Hepatitis B virus surface Ab [Presence] in Serum Abnormal Immunity>10 [facility] Comment on above: Status of Immunity A nti-HBs Level Inconsistent with Immunity 0.0 - 10.0Consistent with Immunity >10.0 Hepatitis B virus surface Ag [Presence] in Serum or Plasma by Immunoassayon 04-11-2024 HBV surface Ag IA Ql Hepatitis B virus surface Ag [Presence] in Serum or Plasma by Immunoassay Negative [facility] IgA [Mass/volume] in Serum o r Plasmaon 04-11-2024 IgA [Mass/Vol] IgA [Mass/volume] in Serum or Plasma 61-437 [facility] IgG [Mass/volume] in Serum o r Plasmaon 04-11-2024 IgG [Mass/Vol] IgG [Mass/volume] in Serum or Plasma [phone] [facility] IgM [Mass/volume] in Serum o r Plasmaon 04-11-2024 IgM [Mass/Vol] IgM [Mass/volume] in Serum or Plasma 15-143 [facility] Immunoglobulin light chains. kappa.free [Mass/volume] in Serumon 04-11-2024 Immunoglobulin light chains.kappa.free (S) [Mass/Vol] Immunoglobulin light chains.kappa.free [Mass/volume] in Serum Abnormal 3.3-19.4 [facility] Immunoglobulin light chains. kappa.free/Immunoglobulin light chains.lambda.free [Sean 04-11-2024 Immunoglobulin light chains.kappa.free/Immun oglobulin light chains.lambda.free (S) [Mass ratio] Immunoglobulin light chains.kappa.free/Immun oglobulin light chains.lambda.free [Mass 0.26-1.65 [facility] Comment on above: Performed at: [employer] [facility] [address] [id number] Director: Karel Kaye PhD, Phone: [phone] Immunoglobulin light chains. lambda.free [Mass/volume] in Serum or Plasmaon 04-11-2024 Immunoglobulin light chains.lambda.free [Mass/Vol] Immunoglobulin light chains.lambda.free [Mass/volume] in Serum or Plasma Abnormal 5.7-26.3 [facility] Laboratory - Urinalysison Protein (U) [Mass/Vol] 104.8 mg/dL High <=11.9 [facility] No Panel Informationon 04-11 25-Hydroxy Vitamin D Total 36.9 ng/mL [facility] Comment on above: <20 ng/mL Vit D defi cient20-<30 ng/mL Vit D [id number] ng/mL Vit D sufficient>100 ng/mL Potential Toxicity Hepatitis B Core Total Antibody Negative Negative [facility] Comment on above: Performed at: [facility] [address] [id number] Director: Karel Kaye PhD, Phone: [phone] Protein Electrophoresis M-Petar Not Observed g/dL Not Observed [facility] Protein Electrophoresis Note Comment . [facility] Comment on above: Protein electrophore sis scan will follow via computer,mail, or radiotelegraph operator servicer delivery. Urine Random Creatinine 134.54 mg/dL 20.0 0-300.0 0 [facility] Protein [Mass/volume] in Ser um or Plasmaon 04-11-2024 Protein [Mass/Vol] Protein [Mass/volume ] in Serum or Plasma 6.0-8.5 [facility] Serum globulin measurement ( mass/volume)on 04-11-2024 Globulin (S) [Mass/Vol] Serum globulin measurement (mass/volume) 2.2-3.9 [facility] Serum or plasma albumin/glob ulin mass ratioon 04-11-2024 Albumin/Globulin [Mass ratio] Serum or plasma albumin/globulin mass ratio 0.7-1.7 [facility] Serum or plasma alpha 1 glob ulin measurement by electrophoresis (mass/volume)on 04-11-2024 Alpha 1 globulin Elph [Mass/Vol] Serum or plasma alpha 1 globulin measurement by electrophoresis (mass/volume) 0.0-0.4 [facility] Serum or plasma alpha 2 glob ulin measurement by electrophoresis (mass/volume)on 04-11-2024 Alpha 2 globulin Elph [Mass/Vol] Serum or plasma alpha 2 globulin measurement by electrophoresis (mass/volume) 0.4-1.0 [facility] Serum or plasma beta globuli n measurement by electrophoresis (mass/volume)on 04-11-2024 Beta globulin Elph [Mass/Vol] Serum or plasma beta globulin measurement by electrophoresis (mass/volume) 0.7-1.3 [facility] Serum or plasma gamma globul in measurement by electrophoresis (mass/volume)on 04-11-2024 Gamma globulin Elph [Mass/Vol] Serum or plasma gamma globulin measurement by electrophoresis (mass/volume) 0.4-1.8 [facility] Serum or plasma immunoelectr ophoresis interpretationon 04-11-2024 Interpretation IEP [Interp] Serum or plasma immunoelectrophoresis interpretation . [facility] Comment on above: Presence of monoclon al protein is unclear at this time. Suggestrepeat in 3 to 6 months if clinically indicated. Urine protein/creatinine rat ioon 04-11-2024 Protein/Creatinine (U) [Ratio] Urine protein/creatinine ratio [facility] Basophils Auto (Bld) [#/Vol] on 04-01-2024 Basophils (Bld) [#/Vol] Automated basoph il count 0.0-0.1 [facility] Basophils/100 WBC Auto (Bld) on 04-01-2024 Basophils/100 WBC (Bld) Automated basophil % 0. 2-2.0 [facility] Cholesterol in LDL Calc [Mas s/Vol]on 04-01-2024 Cholesterol in LDL [Mass/Vol] Cholesterol in LDL [Mass/volume] in Serum or Plasma by calculation [facility] Comment on above: <100 mg/dl [id number] 0-129 mg/dl NEAR OR ABOVE [id number] mg/dl BORDERLINE [id number] mg/dl HIGH>190 mg/dl VERY HIGH Cholesterol in VLDL Calc [Ma ss/Vol]on 04-01-2024 Cholesterol in VLDL [Mass/Vol] Cholesterol in VLDL [Mass/volume] in Serum or Plasma by calculation [facility] Eosinophils/100 WBC Auto (Bl d)on 04-01-2024 Eosinophils/100 WBC (Bld) Automated eosinophil % 0.9-7.0 [facility] Erythrocyte distribution wid th Auto (RBC) [Ratio]on 04-01-2024 Erythrocyte distribution width (RBC) [Ratio] Erythrocyte distribution width [Ratio] by Automated count 11.0-15.0 [facility] Estimated glomerular filtrat ion rate (GFR) non- Americanon 04-01-2024 GFR/1.73 sq M.predicted among non-blacks MDRD (S/P/Bld) [Vol rate/Area] Estimated glomerular filtration rate (GFR) non- Low >=60 mL/min/1.73 m 2 [facility] Globulin Calc (S) [Mass/Vol] on 04-01-2024 Globulin (S) [Mass/Vol] Serum globulin measurement by calculation (mass/volume) [facility] Hematocrit Auto (Bld) [Volum e fraction]on 04-01-2024 Hematocrit (Bld) [Volume fraction] Hematocrit [Volume Fraction] of Blood by Automated count Low 42.0-54.0 [facility] Hemoglobin [Mass/volume] in Bloodon 04-01-2024 Hemoglobin (Bld) [Mass/Vol] Hemoglobin [Mass/volume] in Blood Low 14.0-18.0 [facility] Laboratory - Chemistry and C hemistry - challengeon 04-01-2024 Albumin [Mass/Vol] 3.2 g/dL Low 3.4-5.0 [facility] ALP [Catalytic activity/Vol] 92 U/L 46-116 [facility] ALT [Catalytic activity/Vol] 14 U/L Low 16-63 [facility] AST [Catalytic activity/Vol] 12 U/L Low 15-37 [facility] Bilirubin [Mass/Vol] 0.4 mg/dL 0.2-1.0 [facility] Calcium [Mass/Vol] 8.4 mg/dL Low 8.5-10.1 [facility] Chloride [Moles/Vol] 109 mmol/L High 98-107 [facility] Cholesterol [Mass/Vol] 103 mg/dL <=200 [facility] Cholesterol in HDL [Mass/Vol] 36 mg/dL Low 40-60 [facility] Comment on above: > or =60 mg/dl - LOW CARDIOVASCULAR RISK<40 mg/dl - HIGH CARDIOVASCULAR RISK CO2 [Moles/Vol] 21.1 mmol/L 21.0-32.0 [facility] Creatinine [Mass/Vol] 3.15 mg/dL High 0.70-1.30 [facility] GFR/1.73 sq M.predicted MDRD (S/P/Bld) [Vol rate/Area] 23 mL/min/{1.73_m2} Low >=60 mL/min/1.73 m 2 [facility] Glucose [Mass/Vol] 151 mg/dL High 74-106 [facility] Potassium [Moles/Vol] 4.9 mmol/L 3.5-5.1 [facility] Protein [Mass/Vol] 6.5 g/dL 6.4-8.2 [facility] Sodium [Moles/Vol] 142 mmol/L 136-145 [facility] Triglyceride [Mass/Vol] 170 mg/dL High <=150 [facility] Urea nitrogen [Mass/Vol] 48.0 mg/dL High 7.0-18.0 [facility] Urea nitrogen/Creatinine [Mass ratio] 15.2 mg/mg [facility] Laboratory - Hematology and Cell countson 04-01-2024 Immature granulocytes/100 WBC (Bld) 0.3 % 0.0-0.5 [facility] Laboratory - Urinalysison Protein (U) [Mass/Vol] 94.1 mg/dL High <=11.9 [facility] Leukocytes [#/volume] correc yoseph for nucleated erythrocytes in Blood by Automated counon 04-01-2024 WBC corrected for nucl RBC Auto (Bld) [#/Vol] Leukocytes [#/volume] corrected for nucleated erythrocytes in Blood by Automated coun 4.0-11.0 [facility] Lymphocytes Auto (Bld) [#/Vo l]on 04-01-2024 Lymphocytes (Bld) [#/Vol] Lymphocytes [#/volume] in Blood by Automated count Low 1.2-3.8 [facility] Lymphocytes/100 WBC Auto (Bl d)on 04-01-2024 Lymphocytes/100 WBC (Bld) Lymphocytes/100 leukocytes in Blood by Automated count Low 20.5-60.0 [facility] MCH Auto (RBC) [Entitic mass ]on 04-01-2024 MCH (RBC) [Entitic mass] MCH [Entitic mass] by Automated count 25.9-34.0 [facility] MCHC Auto (RBC) [Mass/Vol]on 04-01-2024 MCHC (RBC) [Mass/Vol] MCHC [Mass/volume] by Automated count 29.9-35.2 [facility] MCV Auto (RBC) [Entitic vol] on 04-01-2024 MCV (RBC) [Entitic vol] MCV [Entitic vol ume] by Automated count High 80.0-94.0 [facility] Monocytes Auto (Bld) [#/Vol] on 04-01-2024 Monocytes (Bld) [#/Vol] Automated blood monocyte count 0.3-0.8 [facility] Monocytes/100 WBC Auto (Bld) on 04-01-2024 Monocytes/100 WBC (Bld) Automated monocyte % 1. 7-12.0 [facility] Neutrophils Auto (Bld) [#/Vo l]on 04-01-2024 Neutrophils (Bld) [#/Vol] Neutrophils [#/volume] in Blood by Automated count 1.4-6.5 [facility] Neutrophils/100 WBC Auto (Bl d)on 04-01-2024 Neutrophils/100 WBC (Bld) Automated neutrophil % High 43.0-75.0 [facility] No Panel Informationon 04-01 Eosinophils # (Auto) 0.2 10 3/uL 0.0-0.7 [facility] Immature Granulocyte # (Auto) 0.02 10 3/uL 0.00-0.03 [facility] Prostate Specific Antigen Screen 5.63 ng/mL High <=4.00 [facility] Urine Random Creatinine 103.93 mg/dL 20.0 0-300.0 0 [facility] Platelet mean volume Auto (B ld) [Entitic vol]on 04-01-2024 Platelet mean volume (Bld) [Entitic vol] Platelet mean volume [Entitic volume] in Blood by Automated count Low 9.5-13.5 [facility] Platelets Auto (Bld) [#/Vol] on 04-01-2024 Platelets (Bld) [#/Vol] Platelets [#/vol ume] in Blood by Automated count Low 150-450 [facility] RBC Auto (Bld) [#/Vol]on RBC (Bld) [#/Vol] Erythrocytes [#/volu me] in Blood by Automated count Low 4.70-6.10 [facility] Serum or plasma albumin/glob ulin mass ratioon 04-01-2024 Albumin/Globulin [Mass ratio] Serum or plasma albumin/globulin mass ratio [facility] Serum or plasma anion gap de terminationon 04-01-2024 Anion gap [Moles/Vol] Serum or plasma an ion gap determination [facility] Serum or plasma total choles terol/high density lipoprotein (HDL) cholesterol mass tawanna 04-01-2024 Cholesterol.total/Bertha sterol in HDL [Mass ratio] Serum or plasma total cholesterol/high density lipoprotein (HDL) cholesterol mass rat [facility] Comment on above: 3.3 - 4.4 LOW RISK4. 4 - 7.1 AVERAGE RISK7.1 - 11.0 MODERATE RISK>11.0 HIGH RISK Urine protein/creatinine rat ioon 04-01-2024 Protein/Creatinine (U) [Ratio] Urine protein/creatinine ratio [facility] No Panel Informationon 03-21 [facility] Glucose mean value [Mass/vol ume] in Blood Estimated from glycated hemoglobinon 12-19-2023 Average glucose Estimated from glycated hemoglobin (Bld) [Mass/Vol] 169 mg/dL [facility] Laboratory - Hematology and Cell countson 12-19-2023 HbA1c (Bld) [Mass fraction] 7.5 % High 4.5-6.2 [facility] Comment on above: ADA RECOMMENDED LIMI T 4.0 - 6.0ADA THERAPEUTIC TARGET < 7.0ACTION SUGGESTED> 7.0 Glucose Glucometer (BldC) [M ass/Vol]Ordered By: Gerry Nelson on 08-28-2023 Glucose [Mass/Vol] 101 mg/dL [facility] Comment on above: Random Glucose Refer ence Range is dependent on time and content of last meal. Glucose of more than 200 mg/dL in a nonstressed, ambulatory subject supports the diagnosis of Diabetes Mellitus. Glucose Poct Glucometerson 0 08-28-2023 Glucose [Mass/Vol] 101 mg/dL Normal [facility] Comment on above: Result Comment: [facility] Glucose Reference Range is dependent on time and content of last meal. Glucose of more than 200 mg/dL in a nonstressed, ambulatory subject supports the diagnosis of Diabetes Mellitus. PERFORMED BY: [facility] [address] [place] [address] PATHOLOGIST [employer] AMANDA ZAMORA M.D. Performed By: #### G LULS #### Point of Care testing , Commemt1 Glu2: Cleaned Meter Normal [facility] Comment on above: Result Comment: PERF ORMED BY: [facility] [address] [place] [address] PATHOLOGIST [employer] AMANDA ZAMORA M.D. Performed By: #### G LULS #### Point of Care testing , Glucose [Mass/Vol] 147 mg/dL Normal [facility] Comment on above: Result Comment: [place] Glucose Reference Range is dependent on time and content of last meal. Glucose of more than 200 mg/dL in a nonstressed, ambulatory subject supports the diagnosis of Diabetes Mellitus. Performed By: #### G LULS #### Point of Care testing , Von 08-28-2023 L Specimen: [id number] Received: 08/28/23 Status: [facility] Num: [id number] Spec Type: Surgical Subm Dr: Gerry Nelson,DO Tissues: A Skin-Other than Cyst, tag, debridement or plastic repair (SCALP) Procedures: HE/7, Gross/Micro L4, Frozen Section, Froz Sec, Add/4, FS HE/10 Age/ Patient Sex Location Account Attending Physician MarsEugenio 78/M [place] [id number] Gerry Nelson DO SPEC NUM: [id number] RECD: 08/28/23 STATUS: [facility] NUM: [id number] ANJALI: 08/28/23 [facility] DR: Gerry Nelson DO ENTERED: 08/28/23 [facility] DR: CHELITA TYPE: Surgical DEPT: S ORDERED: HE/7, Gross/Micro [...] A2 - Frozen section remnant?FSA 2 Specimen: [id number] Received: 08/28/23 Status: MANJ[facility] Caballero Num: [id number] Spec Type: Surgical Subm Dr: Gerry Nelson DO Tissues: A Skin-Other than Cyst, tag, debridement or plastic repair (SCALP) Procedures: /, Gross/Micro L4, Frozen Section, Lu Moul[place], Add/, FS / Patient: Eugenio Crews [id number] (Continued) Specimen: Received: 08/28/23 (Continued) Gross Description (Continued) Signed (signature on file) Mel Proctor MD 08/29/23 1356 Specimen: [id number] Received: 08/28/23 Status: MANJ[facility] Caballero Num: [id number] Spec Type: Surgical Subm Dr: Gerry Nelson DO Tissues: A Skin-Other than Cyst, tag, debridement or plastic repair (SCALP) Procedures: HE/, Gross/Micro L4, Frozen Section, Lu [place]oul[place], Add/, FS Patient: Eugenio Crews [id number] (Continued) Specimen: [id number] Received: 08/28/23 (Continued) Gross Description (Continued) A3 - Frozen section remnant?FSA 3 A4 - Frozen section remnant?FSA 4 A5 - Frozen section remnant?FSA 5 A6 - 12:00 half of specimen A7 - 6:00 half of specimen Intraoperative Diagnosis A. Recurrent squamous cell carcinoma of scalp: - Margins are negative for malignancy. Reported by Dr. Proctor at 2:05 PM 08/28/2023 CPT Codes 82258, 75290, 75489h5 Specimen: [id number] Received: 08/28/23 Status: [facility] [place] Num: [id number] Spec Type: Surgical Subm Dr: Gerry Nelson DO Tissues: A Skin-Other than Cyst, tag, debridement or plastic repair (SCALP) Procedures: HE/, Gross/Micro L4, Frozen Section, Lu Moul[place], Add/4, FS Patient: Eugenio Crews [id number] (Continued) Signed (signature on file)___ (more content not included)... Normal [facility] No Panel InformationOrdered By: Gerry Nelson on 08-28-2023 Bedside Glucose Comment Glu2: cleaned meter [facility] Basic Metabolic Panelon 03-2 Anion gap [Moles/Vol] 12.7 mmol/L Normal 6.0-15.0 [facility] Comment on above: Performed By: #### B MP, CBC #### [facility] [address] Calcium [Mass/Vol] 8.7 mg/dL Normal 8.6-10.3 [facility] Comment on above: Result Comment: PERF ORMED BY: [place] [address] PATHOLOGIST [employer] AMANDA ZAMORA M.D. Performed By: #### B MP, CBC #### [facility] [address] [place] [address] [place] Chloride [Moles/Vol] 109 mmol/L High 98-107 [facility] Comment on above: Performed By: #### B MP, CBC #### [facility] [address] [place] [address] [place] CO2 [Moles/Vol] 22.0 mmol/L Normal 21.0-31.0 [facility] Comment on above: Performed By: #### B MP, CBC #### [facility] [address] [place] [address] [place] Creatinine [Mass/Vol] 2.90 mg/dL High 0.70-1.30 [facility] Comment on above: Performed By: #### B MP, CBC #### [facility] [address] [place] [address] [place] GFR/1.73 sq M.predicted MDRD (S/P/Bld) [Vol rate/Area] 21.738 mL/min/{1.73_m2} Normal [facility] Comment on above: Performed By: #### B MP, CBC #### [place] [address] [place] Glucose [Mass/Vol] 227 mg/dL High 70-100 [facility] Comment on above: Result Comment: [facility] Glucose Reference Range is dependent on time and content of last meal. Glucose of more than 200 mg/dL in a nonstressed, ambulatory subject supports the diagnosis of Diabetes Mellitus. ADA recommended reference range Performed By: #### B MP, CBC #### [facility] [address] Potassium [Moles/Vol] 4.7 mmol/L Normal 3.5-5.1 [facility] Comment on above: Performed By: #### B MP, CBC #### [facility] [address] Sodium [Moles/Vol] 139 mmol/L Normal 136-145 [facility] Comment on above: Performed By: #### B MP, CBC #### [facility] [address] Urea nitrogen [Mass/Vol] 43 mg/dL High 7-25 [facility] Comment on above: Performed By: #### B MP, CBC #### [facility] [address] Basophils Auto (Bld) [#/Vol] Ordered By: Gerry Nelson on 08-22-2023 Basophils (Bld) [#/Vol] 0.0 10*3/uL 0.0-0.2 [facility] Basophils/100 WBC Auto (Bld) Ordered By: Gerry Nelson on 08-22-2023 Basophils/100 WBC (Bld) 0.4 % . [facility] Calcium [Mass/volume] in Ser um or PlasmaOrdered By: Gerry Nelson on 08-22-2023 Calcium [Mass/Vol] 8.7 mg/dL 8.6-10.3 [facility] Carbon dioxide, total [Moles /volume] in Serum or PlasmaOrdered By: Gerry Nelson on 08-22-2023 CO2 [Moles/Vol] 22.0 mmol/L 21.0-31.0 [facility] Chloride [Moles/volume] in S hai or PlasmaOrdered By: Gerry Nelson on 08-22-2023 Chloride [Moles/Vol] 109 mmol/L 98-107 [facility] Complete Blood Count Auto Di ffon 08-22-2023 Basophils (Bld) [#/Vol] 0.0 10*3/uL Normal 0.0-0.2 [facility] Comment on above: Result Comment: PERF ORMED BY: [place] [address] PATHOLOGIST [employer] AMANDA ZAMORA M.D. Performed By: #### B MP, CBC #### [facility] [address] [place] [address] [place] Basophils/100 WBC (Bld) 0.4 % Normal . [facility] Comment on above: Performed By: #### B MP, CBC #### [facility] [address] [place] [address] [place] Eosinophils (Bld) [#/Vol] 0.1 10*3/uL Normal 0.0-0.45 [facility] Comment on above: Performed By: #### B MP, CBC #### [address] Eosinophils/100 WBC (Bld) 2.4 % Normal . [facility] Comment on above: Performed By: #### B MP, CBC #### [facility] [address] [place] [address] [place] Erythrocyte distribution width (RBC) [Ratio] 12.7 % Normal 12.0-14.8 [facility] Comment on above: Performed By: #### B MP, CBC #### [facility] [address] [place] [address] Hematocrit (Bld) [Volume fraction] 33.6 % Low 38.8-50.0 [facility] Comment on above: Performed By: #### B MP, CBC #### [facility] [address] [place] [address] [place] Hemoglobin (Bld) [Mass/Vol] 11.4 g/dL Low 13.0-17.0 [facility] Comment on above: Performed By: #### B MP, CBC #### [facility] [address] [place] [address] [place] Lymphocytes (Bld) [#/Vol] 0.9 10*3/uL Low 1.00-4.8 [facility] Comment on above: Performed By: #### B MP, CBC #### [facility] [address] Lymphocytes/100 WBC (Bld) 14.3 % Normal . [facility] Comment on above: Performed By: #### B MP, CBC #### [facility] [address] MCH (RBC) [Entitic mass] 32.7 pg Normal 27.5-35.2 [facility] Comment on above: Performed By: #### B MP, CBC #### [facility] [address] MCV (RBC) [Entitic vol] 96.1 fL Normal 83.5-101 [facility] Comment on above: Performed By: #### B MP, CBC #### [address] Mean Corpuscular HGB Conc 34.0 g/dL Normal 32.5-35.6 [facility] Comment on above: Performed By: #### B MP, CBC #### [place] [address] [place] Monocytes (Bld) [#/Vol] 0.5 10*3/uL Normal 0.0-0.8 [facility] Comment on above: Performed By: #### B MP, CBC #### [place] [address] [place] Monocytes/100 WBC (Bld) 7.4 % Normal . [facility] Comment on above: Performed By: #### B MP, CBC #### [facility] [address] [place] [address] [place] Neutrophils (Bld) [#/Vol] 4.7 10*3/uL Normal 1.8-7.7 [facility] Comment on above: Performed By: #### B MP, CBC #### [address] Neutrophils/100 WBC (Bld) 75.5 % Normal . [facility] Comment on above: Performed By: #### B MP, CBC #### [facility] [address] NRBC% 0.0 /100{WBC} Normal 0-0.5 [facility] Comment on above: Performed By: #### B MP, CBC #### [facility] [address] Platelet mean volume (Bld) [Entitic vol] 7.2 fL Normal 6.6-10.1 [facility] Comment on above: Performed By: #### B MP, CBC #### [address] Platelets (Bld) [#/Vol] 165 10*3/uL Normal 150-450 [facility] Comment on above: Performed By: #### B MP, CBC #### [address] RBC (Bld) [#/Vol] 3.50 10*6/uL Low 3.90-5.60 [facility] Comment on above: Performed By: #### B MP, CBC #### [address] WBC (Bld) [#/Vol] 6.2 10*3/uL Normal 4.1-10.5 [facility] Comment on above: Performed By: #### B MP, CBC #### [address] Creatinine [Mass/volume] in Serum or PlasmaOrdered By: Gerry Nelson on 08-22-2023 Creatinine [Mass/Vol] 2.90 mg/dL 0.70-1.30 [facility] ECG 12 lead ECGon 08-22-2023 ECG 12 lead ECG [facility] [place] [address] [place] [address] Electrocardiograph Report Signed Patient: Eugenio Crews MR#: [id number] : 1945 Acct:[id number] Age/Sex: 78 / M ADM Date: 08/22/23 Loc: PS Room: Type: [facility] CLI Attending Dr: Gerry Nelson DO Ordering [...] previous ECGs available Confirmed by Joni Marrero ([id number]) on 08/23/2023 11:21:57 AM Referred By: NOHEMI Electronically Signed By:Joni Marrero Transcribed By: ERNIE Signed By Joni Marrero MD 08/23/23 1122 Normal [facility] Eosinophils Auto (Bld) [#/Vo l]Ordered By: Gerry Nelson on 08-22-2023 Eosinophils (Bld) [#/Vol] 0.1 10*3/uL 0.0-0.45 [facility] Eosinophils/100 WBC Auto (Bl d)Ordered By: Gerry Nelson on 08-22-2023 Eosinophils/100 WBC (Bld) 2.4 % . [facility] Erythrocyte distribution wid th Auto (RBC) [Ratio]Ordered By: Gerry Nelson on 08-22-2023 Erythrocyte distribution width (RBC) [Ratio] 12.7 % 12.0-14.8 [facility] Glucose [Mass/volume] in Ser um or PlasmaOrdered By: Gerry Nelson on 08-22-2023 Glucose [Mass/Vol] 227 mg/dL 70-100 [facility] Comment on above: ADA recommended refe rence rangeRandom Glucose Reference Range is dependent on time and content of last meal. Glucose of more than 200 mg/dL in a nonstressed, ambulatory subject supports the diagnosis of Diabetes Mellitus. Hematocrit Auto (Bld) [Volum e fraction]Ordered By: Gerry Nelson on 08-22-2023 Hematocrit (Bld) [Volume fraction] 33.6 % 38.8-50.0 [facility] Hemoglobin [Mass/volume] in BloodOrdered By: Gerry Nelson on 08-22-2023 Hemoglobin (Bld) [Mass/Vol] 11.4 g/dL 13.0-17.0 [facility] Leukocytes [#/volume] correc yoseph for nucleated erythrocytes in Blood by Automated counOrdered By: Gerry Nelson on 08-22-2023 WBC corrected for nucl RBC Auto (Bld) [#/Vol] 6.2 10*3/uL 4.1-10.5 [facility] Lymphocytes Auto (Bld) [#/Vo l]Ordered By: Gerry Nelson on 08-22-2023 Lymphocytes (Bld) [#/Vol] 0.9 10*3/uL 1.00-4.8 [facility] Lymphocytes/100 WBC Auto (Bl d)Ordered By: Gerry Nelson on 08-22-2023 Lymphocytes/100 WBC (Bld) 14.3 % . [facility] MCH Auto (RBC) [Entitic mass ]Ordered By: Gerry Nelson on 08-22-2023 MCH (RBC) [Entitic mass] 32.7 pg 27.5-35.2 [facility] MCHC Auto (RBC) [Mass/Vol]Or dered By: Gerry Nelson on 08-22-2023 MCHC (RBC) [Mass/Vol] 34.0 g/dL 32.5-35.6 [facility] MCV Auto (RBC) [Entitic vol] Ordered By: Gerry Nelson on 08-22-2023 MCV (RBC) [Entitic vol] 96.1 fL 83.5-101 [facility] Monocytes Auto (Bld) [#/Vol] Ordered By: Gerry Nelson on 08-22-2023 Monocytes (Bld) [#/Vol] 0.5 10*3/uL 0.0-0.8 [facility] Monocytes/100 WBC Auto (Bld) Ordered By: Gerry Nelson on 08-22-2023 Monocytes/100 WBC (Bld) 7.4 % . [facility] Neutrophils Auto (Bld) [#/Vo l]Ordered By: Gerry Nelson on 08-22-2023 Neutrophils (Bld) [#/Vol] 4.7 10*3/uL 1.8-7.7 [facility] Neutrophils/100 WBC Auto (Bl d)Ordered By: Gerry Nelson on 08-22-2023 Neutrophils/100 WBC (Bld) 75.5 % . [facility] No Panel InformationOrdered By: Gerry Nelson on 08-22-2023 Estimated GFR (CKD-EPI) 21.738 mL/Min [facility] Creatinine Clearance (Chem N/A [facility] Nucleated erythrocytes [Pres ence] in Blood by Automated countOrdered By: Gerry Nelson on 08-22-2023 Nucleated RBC Auto Ql (Bld) 0.0 /100{WBC} 0-0.5 [facility] Platelet mean volume Auto (B ld) [Entitic vol]Ordered By: Gerry Nelson on 08-22-2023 Platelet mean volume (Bld) [Entitic vol] 7.2 fL 6.6-10.1 [facility] Platelets Auto (Bld) [#/Vol] Ordered By: Gerry Nelson on 08-22-2023 Platelets (Bld) [#/Vol] 165 10*3/uL 150-450 [facility] Potassium [Moles/volume] in Serum or PlasmaOrdered By: Gerry Nelson on 08-22-2023 Potassium [Moles/Vol] 4.7 mmol/L 3.5-5.1 [facility] RBC Auto (Bld) [#/Vol]Ordere d By: Gerry Nelson on 08-22-2023 RBC (Bld) [#/Vol] 3.50 10*6/uL 3.90-5.60 [facility] Serum or plasma anion gap de terminationOrdered By: Gerry Nelson on 08-22-2023 Anion gap [Moles/Vol] 12.7 mmol/L 6.0-15.0 [facility] Sodium [Moles/volume] in Ser um or PlasmaOrdered By: Gerry Nelson on 08-22-2023 Sodium [Moles/Vol] 139 mmol/L 136-145 [facility] Urea nitrogen [Mass/volume] in Serum or PlasmaOrdered By: Gerry Nelson on 08-22-2023 Urea nitrogen [Mass/Vol] 43 mg/dL 7-25 [facility] WBC Auto (Bld) [#/Vol]Ordere d By: Gerry Nelson on 08-22-2023 WBC (Bld) [#/Vol] 6.2 10*3/uL 4.1-10.5 [facility] Glucose mean value [Mass/vol ume] in Blood Estimated from glycated hemoglobinon 08-06-2023 Average glucose Estimated from glycated hemoglobin (Bld) [Mass/Vol] 163 mg/dL [facility] Laboratory - Hematology and Cell countson 08-06-2023 HbA1c (Bld) [Mass fraction] 7.3 % 4.5-6.2 [facility] Comment on above: ADA RECOMMENDED LIMI T 4.0 - 6.0ADA THERAPEUTIC TARGET < 7.0ACTION SUGGESTED> 7.0 CBC AUTO DIFFon 04-05-2022 BASO # 0.0 103/ul Normal 0.0-0.1 [facility] Comment on above: Performed By: #### C BC #### [facility] [address] [place] [address] Dr. Dave Duffy Basophils/100 WBC (Bld) 0.2 % Normal 0.2-2.0 [facility] Comment on above: Performed By: #### C BC #### [facility] [address] [place] [address] Dr. Dave Duffy EO # 0.2 103/ul Normal 0.0-0.7 [facility] Comment on above: Performed By: #### C BC #### [facility] [address] [place] [address] Dr. Dave Duffy Eosinophils/100 WBC (Bld) 2.5 % Normal 0.9-7.0 [facility] Comment on above: Performed By: #### C BC #### [facility] [address] [place] [address] Dr. Dave Duffy Erythrocyte distribution width (RBC) [Ratio] 12.3 % Normal 11.0-15.0 [facility] Comment on above: Performed By: #### C BC #### [facility] [address] [place] [address] Dr. Dave Duffy Hematocrit (Bld) [Volume fraction] 32.8 % Critically low 42.0-54.0 [facility] Comment on above: Performed By: #### C BC #### [facility] [address] [place] [address] Dr. Dave Duffy Hemoglobin (Bld) [Mass/Vol] 11.4 g/dL Critically low 14.0-18.0 [facility] Comment on above: Performed By: #### C BC #### [facility] [address] [place] [address] Dr. Dave Duffy IG # 0.03 10e3/ul Normal 0.00-0.03 [facility] Comment on above: Performed By: #### C BC #### [facility] [address] [place] [address] Dr. Dave Duffy IG % 0.5 % Normal 0.0-0.5 [facility] Comment on above: Performed By: #### C BC #### [facility] [address] [place] [address] Dr. Dave Duffy LYMPH # 1.2 103/ul Normal 1.2-3.8 [facility] Comment on above: Performed By: #### C BC #### [facility] [address] [place] [address] Dr. Dave Duffy Lymphocytes/100 WBC (Bld) 18.9 % Critically low 20.5-60.0 [facility] Comment on above: Performed By: #### C BC #### [facility] [address] [place] [address] Dr. Dave Duffy MANUAL DIFF REQ NO Normal [facility] Comment on above: Performed By: #### C BC #### [facility] [address] [place] [address] Dr. Dave Duffy MCH (RBC) [Entitic mass] 32.8 pg Normal 25.9-34.0 [facility] Comment on above: Performed By: #### C BC #### [facility] [address] [place] [address] Dr. Dave Duffy MCHC (RBC) [Mass/Vol] 34.8 g/dL Normal 29.9-35.2 [facility] Comment on above: Performed By: #### C BC #### [facility] [address] [place] [address] Dr. Dave Duffy MCV (RBC) [Entitic vol] 94.3 fL Critically high 80.0-94 .0 [facility] Comment on above: Performed By: #### C BC #### [facility] [address] [place] [address] Dr. Dave Duffy MONO # 0.5 103/ul Normal 0.3-0.8 [facility] Comment on above: Performed By: #### C BC #### [facility] [address] [place] [address] Dr. Dave Duffy Monocytes/100 WBC (Bld) 8.9 % Normal 1.7-12.0 [facility] Comment on above: Performed By: #### C BC #### [facility] [address] [place] [address] Dr. Dave Duffy NEUT # 4.2 103/ul Normal 1.4-6.5 [facility] Comment on above: Performed By: #### C BC #### [facility] [address] [place] [address] Dr. Dave Duffy Neutrophils/100 WBC (Bld) 69.0 % Normal 43.0-75.0 [facility] Comment on above: Performed By: #### C BC #### [facility] [address] [place] [address] Dr. Dave Duffy Platelet mean volume (Bld) [Entitic vol] 8.7 fL Critically low 9.5-13.5 [facility] Comment on above: Performed By: #### C BC #### [facility] [address] [place] [address] Dr. Dave Duffy PLT 166 103/ul Normal 150-450 [facility] Comment on above: Performed By: #### C BC #### [facility] [address] [place], [place] [id number] Dr. Dave Duffy RBC 3.48 106/ul Critically low 4.70-6.10 [facility] Comment on above: Performed By: #### C BC #### [facility] [address] [address] [address] Dave Duffy WBC 6.1 103/ul Normal 4.0-11.0 [facility] Comment on above: Performed By: #### C BC #### [facility] [address] [address] [address] Dave Duffy LIPID PROFILEon 04-05-2022 CHOL-HDL RATIO NORM SEE BELOW Normal [facility] Comment on above: Result Comment: 3.3 - 4.4 LOW RISK 4.4 - 7.1 AVERAGE RISK 7.1 - 11.0 MODERATE RISK >11.0 HIGH RISK Performed By: #### C MP, LIPID #### [facility] [address] [place] [address] Dr. Dave Duffy Cholesterol [Mass/Vol] 106 mg/dL Normal <=200 [facility] Comment on above: Performed By: #### C MP, LIPID #### [facility] [address] [place] [address] Dr. Dave Duffy Cholesterol in HDL [Mass/Vol] 36 mg/dL Critically low 40-60 [facility] Comment on above: Performed By: #### C MP, LIPID #### [facility] [address] [place] [address] Dr. Dave Duffy Cholesterol in LDL [Mass/Vol] 43.4 mg/dL Normal [facility] Comment on above: Performed By: #### C MP, LIPID #### [facility] [address] [place] [address] Dr. Dave Duffy Cholesterol.total/Bertha sterol in HDL [Mass ratio] 2.9 {ratio} Normal [facility] Comment on above: Performed By: #### C MP, LIPID #### [facility] [address] [place] [address] Dr. Dave Duffy HDL NORMAL > or = 60 mg/dl - LO W CARDIOVASCULAR RISK <40 mg/dl - HIGH CARDIOVASCULAR RISK Normal [facility] Comment on above: Performed By: #### C MP, LIPID #### [facility] [address] [place] [address] Dr. Dave Duffy LDL CALC NORMAL SEE BELOW Normal [facility] Comment on above: Result Comment: <100 mg/dl OPTIMAL 100 - 129 mg/dl NEAR OR ABOVE OPTIMAL 130 - 159 mg/dl BORDERLINE HIGH 160 - 189 mg/dl HIGH >190 mg/dl VERY HIGH Performed By: #### C MP, LIPID #### [facility] [address] [place] [address] Dr. Dave Duffy Triglyceride [Mass/Vol] 133 mg/dL Normal <=150 [facility] Comment on above: Performed By: #### C MP, LIPID #### [facility] [address] [place] [address] Dr. Dave Duffy VLDL CALC 26.6 mg/dL Normal [facility] Comment on above: Performed By: #### C MP, LIPID #### [facility] [address] [place] [address] Dr. Dave Duffy MICROALBUMIN, RAND URon 11-0 mALB 19.6 mg/L Normal <=30.0 [facility] Comment on above: Performed By: #### M ALBR #### [facility] [address] [place] [address] Dr. Dave Duffy PROF 14(COMP METB)on 022 Albumin [Mass/Vol] 3.6 g/dL Normal 3.4-5.0 [facility] Comment on above: Performed By: #### C MP, LIPID #### [facility] [address] [place] [address] Dr. Dave Duffy Albumin/Globulin [Mass ratio] 1.2 {ratio} Normal [facility] Comment on above: Performed By: #### C MP, LIPID #### [facility] [address] [place] [address] Dr. Dave Duffy ALP [Catalytic activity/Vol] 102 U/L Normal 46-116 [facility] Comment on above: Performed By: #### C MP, LIPID #### [facility] [address] [place] [address] Dr. Dave Duffy ALT [Catalytic activity/Vol] 22 U/L Normal 16-63 [facility] Comment on above: Performed By: #### C MP, LIPID #### [facility] [address] [place] [address] Dr. Dave Duffy Anion gap [Moles/Vol] 10.8 mmol/L Normal [facility] Comment on above: Performed By: #### C MP, LIPID #### [facility] [address] [place] [address] Dr. Dave Duffy AST [Catalytic activity/Vol] 13 U/L Critically low 15-37 [facility] Comment on above: Performed By: #### C MP, LIPID #### [facility] [address] [place] [address] Dr. Dave Duffy Bilirubin [Mass/Vol] 0.5 mg/dL Normal 0.2-1.0 [facility] Comment on above: Performed By: #### C MP, LIPID #### [facility] [address] [place] [address] Dr. Dave Duffy Calcium [Mass/Vol] 8.6 mg/dL Normal 8.5-10.1 [facility] Comment on above: Performed By: #### C MP, LIPID #### [facility] [address] [place] [address] Dr. Dave Duffy Chloride [Moles/Vol] 107 mmol/L Normal 98-107 [facility] Comment on above: Performed By: #### C MP, LIPID #### [facility] [address] [place] [address] Dr. Dave Duffy CO2 [Moles/Vol] 25.7 mmol/L Normal 21.0-32.0 [facility] Comment on above: Performed By: #### C MP, LIPID #### [facility] [address] [place] [address] Dr. Dave Duffy Creatinine [Mass/Vol] 2.99 mg/dL Critically high 0.70-1.30 [facility] Comment on above: Performed By: #### C MP, LIPID #### [facility] [address] [place] [address] Dr. Dave Duffy EGFR-AF J[place] 25 mL/min/1.73m2 Critically low >=60 [facility] Comment on above: Performed By: #### C MP, LIPID #### [facility] [address] [address] [address] Dave Duffy EGFR-NON AF [place] 21 mL/min/1.73m2 Critically low >=60 [facility] Comment on above: Performed By: #### C MP, LIPID #### [facility] [address] [address] [address] Dave Duffy Globulin (S) [Mass/Vol] 3.1 g/dL Normal [facility] Comment on above: Performed By: #### C MP, LIPID #### [facility] [address] [address] [address] Dave Duffy Glucose [Mass/Vol] 106 mg/dL Normal 74-106 [facility] Comment on above: Performed By: #### C MP, LIPID #### [facility] [address] [address] [address] Dave Duffy Potassium [Moles/Vol] 4.5 mmol/L Normal 3.5-5.1 [facility] Comment on above: Performed By: #### C MP, LIPID #### [facility] [address] [place] [address] Dr. Dave Duffy Protein [Mass/Vol] 6.7 g/dL Normal 6.4-8.2 [facility] Comment on above: Performed By: #### C MP, LIPID #### [facility] [address] [place] [address] Dr. Dave Duffy Sodium [Moles/Vol] 139 mmol/L Normal 136-145 [facility] Comment on above: Performed By: #### C MP, LIPID #### [facility] [address] [address] [address] Dave Duffy Urea nitrogen [Mass/Vol] 43.0 mg/dL Critically high 7.0-18.0 [facility] Comment on above: Performed By: #### C MP, LIPID #### [facility] [address] [place] [address] Dr. Dave Duffy Urea nitrogen/Creatinine [Mass ratio] 14.4 mg/mg Normal [facility] Comment on above: Performed By: #### C MP, LIPID #### [facility] [address] [address] [address] Dave Duffy XR FLUORO < 1 [...] Date: 2022-03-05 11:26 Normal [facility]24-2022 [facility] Telephone (HEMASA) EUGENIO CREWS ([id number]) 1945 [facility] Date Time Provider Department 02/24/22 ROSELYN PAGE [...] Encounter Status:Closed by ROSELYN PAGE on 02/24/22 [facility] Dejuan 02-23-2022 CNPN Telephone (HEMA) EUGENIO [id number]) 1945 M TRN Date Time Provider Department [...] Encounter Status:Closed by EAMON BISWAS on 03/02/22 [facility] CNPCassandra 02-21-2022 CNPN Telephone (HEMTSA) EUGENIO CREWS ([id number]) 1945 M [facility] Date Time Provider Department 02/21/22 AILEEN [...] accessed 2 days in a row at [facility] and there was swelling above port site. Dr. Reyes thought perhaps the nurse missed as they use a smaller port at [place] which is where he had it placed. Informed that if we have swelling while patient is here, we would not proceed. verbalized understanding. PSS: please call patient/ to schedule on infusion schedule for possible 2 doses of activase. Jamia: Can you get an xray that was taken of the port at [facility] recently. ( states they did one) Aileen Lee 02/21/2022 1:12 PM Signed Xray report scanned. 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] 09/21/2009 SBO (small bowel obstruction) ([facility]) [K56.609] 05/02/2019 05/05/2019 Diabetes mellitus (HCC) [E11.9] 05/02/2019 Small bowel obstruction (HCC) [K56.609] 05/02/2019 05/05/2019 Central line clotted (HCC) [T82.594A] 02/21/2022 Encounter Status:Closed by AILEEN JENKINS on 02/21/22 Normal [facility] GLYCOHEMOGLOBIN A1Con 2021 ADA RECOMMENDATION SEE BELOW Normal [facility] Comment on above: Result Comment: ADA RECOMMENDED LIMIT 4.0 - 6.0 ADA THERAPEUTIC TARGET < 7.0 ACTION SUGGESTED > 7.0 Performed By: #### D ATA1C #### [facility] [address] [address] [address] Dave Duffy Glucose [Mass/Vol] 166 mg/dL Normal [facility] Comment on above: Performed By: #### D ATA1C #### [facility] [address] [address] [address] Dave Duffy HbA1c (Bld) [Mass fraction] 7.4 % Critically high 4.5-6.2 [facility] Comment on above: Performed By: #### D ATA1C #### [facility] [address] [address] [address] Dave Duffy XR CHEST 2 Von [...] [facility] POINT OF CARE GLUCOSEon 11-02 Glucose [Mass/Vol] 163 mg/dL Critically high 74-106 [facility] Comment on above: Performed By: #### P OCGLUC #### [facility] [address] [address] [address] Dave Zaidi 04-26-2021 [facility] Telephone (HEMASA) MARSEUGENIO Lamas ([id number]) 1945 M TRN Date Time Provider Department 04/26/21 ELIA BAL During your visit today, we recorded the following information about you: Elia Bal RN 04/26/2021 2:52 PM Signed Received call from [facility] at Dr Chang's office stating they needed to know what pt's port is being flushed with. [facility] informed pt is getting 20cc NS followed by 5cc Heparin. [facility] verbalizes understanding and denies further needs at this time. Elia Bal RN Allergies As of Date: 04/26/2021 Noted Allergy Reaction PIPERACILLIN-TAZOBACTAM 09/14/2009 2 - Rash Comments: Pt developed severe rash after zosyn initiated KETOROLAC 09/23/2020 16 - Unknown Comments: kidney killer Date Reviewed: 03/25/2021 Reviewed by: Kendall Honeycutt APRN.ENVIRONMENTAL LAWYER - Fully Assessed Reason for Visit: Medication Question [6201] Prescriptions as of 04/26/2021 - atorvastatin (LIPITOR) [...] Encounter Status:Closed by ELIA BAL on 04/26/21 [facility] CNOVSPon 03-23-2021 CNOVSP Visit (SP) Office (HEMASA) EUGENIO CREWS ([id number]) 1945 M TRN Date Time Provider Department 03/23/21 1:30 PM KENADLL HONEYCUTT During your visit today, we recorded the following information about you: Temperature Pulse Respiration Blood pressure 97.4 degrees 81/minute 16/minute 141/54 Weight Height 105.9 kg 1.854 m Kendall Honeycutt APRN.CNP 03/25/2021 12:42 PM Signed Patient: Eugenio Crews Location: [facility] : 1945 Attending Physician: Dr. Kings [...] colonoscopy in September with Dr. Reyes in [place]. He denies fevers, chills, night sweats and [...] contact K (more content not included)... Normal [facility] Comp Metabolic Panelon 03-23 Albumin [Mass/Vol] 3.9 g/dL Normal 3.9-4.9 [facility] ALP [Catalytic activity/Vol] 126 U/L High 38-113 [facility] ALT [Catalytic activity/Vol] 13 U/L Normal 10-54 [facility] Anion gap [Moles/Vol] 7 mmol/L Low 9-18 [facility] AST [Catalytic activity/Vol] 12 U/L Low 14-40 [facility] Bilirubin [Mass/Vol] 0.3 mg/dL Normal 0.2-1.3 [facility] Calcium [Mass/Vol] 8.9 mg/dL Normal 8.5-10.2 [facility] Chloride [Moles/Vol] 107 mmol/L High 97-105 [facility] CO2 [Moles/Vol] 20 mmol/L Low 22-30 [facility] Creatinine [Mass/Vol] 2.54 mg/dL High 0.73-1.22 [facility] eGFR- Amer. 30 Normal [facility] eGFR-All Other Races 25 . Normal [facility] Comment on above: Result Comment: eGFR [...] Glucose [Mass/Vol] 169 mg/dL High 74-99 [facility] Comment on above: Result Comment: The [place] Diabetes Association (ADA) provides guidance for cutoff [...] Standards of Medical Care in Diabetes 2016, [place] Diabetes Association. Diabetes Care. 2016.39(Suppl 1). Potassium [Moles/Vol] 4.7 mmol/L Normal 3.7-5.1 [facility] Protein [Mass/Vol] 6.2 g/dL Low 6.3-8.0 [facility] Sodium [Moles/Vol] 134 mmol/L Low 136-144 [facility] Urea nitrogen [Mass/Vol] 29 mg/dL High 9-24 [facility] EPOon 03-23-2021 EPO 18.4 mIU/mL Normal 2.6-18.5 [facility] Comment on above: Result Comment: Test analyzed by the Berny DxI method. Performed By: #### E PO #### [address] [place] [address] Fecal Occult Bld Tston 03-23 Immuno FOB Negative Normal Negative [facility] Comment on above: Result Comment: This test was developed and its performance characteristics determined by [facility]'s Dany Arsenio [facility]ology [facility] [place] ([facility]). It has not been cleared or approved by the FDA. [facility] is regulated under CLIA as qualified to perform high complexity testing. This test is used for clinical purposes. It should not be regarded as investigational or for research. Performed By: #### I FOBT #### [address] [place] [address] Ferritinon 03-23-2021 Ferritin [Mass/Vol] 294.0 ng/mL Normal 30.3-565.7 [facility] Comment on above: Performed By: #### E PO #### [facility] Periscope [facility] [place], [place] [address] Folate, Serumon 03-23-2021 Folate [Mass/Vol] 6.6 ng/mL Normal >4.7 [facility] Comment on above: Performed By: #### E PO #### [facility] Periscope [facility] [address] [address] Iron and TIBCon 03-23-2021 Iron [Mass/Vol] 70 ug/dL Normal 41-186 [facility] Comment on above: Performed By: #### E PO #### [address] [place], [place] [address] TIBC 223 ug/dL Low 232-386 [facility] Comment on above: Performed By: #### E PO #### [facility] [address] [place], [place] [address] Transferrin Saturatn 31 % Normal 15-57 [facility] Comment on above: Performed By: #### E PO #### [address] [place] [address] LDon 03-23-2021 LD 192 U/L Normal 135-225 [facility] Comment on above: Performed By: #### E PO #### [id number] Protein Electrophor.on 03-23 Albumin [Mass/Vol] 3.24 g/dL Low 3.37-4.23 [facility] Comment on above: Performed By: #### F ERR, B12, SEPG, IRON, TSH, TRANSF, SERFOL ####[address] [phone] Alpha 1 Globulin 0.28 gm/dL Normal 0.18-0.31 [facility] [place] Comment on above: Performed By: #### F ERR, B12, SEPG, IRON, TSH, TRANSF, SERFOL ####[address] [phone] Alpha 2 Globulin 0.75 gm/dL Normal 0.52-0.97 [facility] [place] Comment on above: Performed By: #### F ERR, B12, SEPG, IRON, TSH, TRANSF, SERFOL ####[address] [phone] Beta Globulin 0.78 gm/dL Low 0.84-1.36 [facility] Comment on above: Performed By: #### F ERR, B12, SEPG, IRON, TSH, TRANSF, SERFOL ####[address] [phone] Gamma Globulin 0.65 gm/dL Low 0.70-1.44 [facility] Comment on above: Performed By: #### F ERR, B12, SEPG, IRON, TSH, TRANSF, SERFOL ####[address] [phone] Interpretation SEE COMMENT Normal [facility] Comment on above: Result Comment: No d efinitive M protein is identified on protein electrophoresis. Hypogammaglobulinemia is present, which can be seen in the setting of monoclonal gammopathy. If clinically indicated, monoclonal protein analysis and serum free light chain analysis are suggested to evaluate further for monoclonal gammopathy. Performed By: #### F ERR, B12, SEPG, IRON, TSH, TRANSF, SERFOL ####[address] [phone] M Protein Location N/A Normal [facility] Comment on above: Performed By: #### F ERR, B12, SEPG, IRON, TSH, TRANSF, SERFOL ####[address] [phone] M Petar Concentratn 0.00 gm/dL Normal 0.00 [facility] Comment on above: Performed By: #### F ERR, B12, SEPG, IRON, TSH, TRANSF, SERFOL ####[address] [phone] Protein [Mass/Vol] 5.7 g/dL Low 6.3-8.0 [facility] Comment on above: Performed By: #### F ERR, B12, SEPG, IRON, TSH, TRANSF, SERFOL ####[address] [phone] SPE Staff Review Reviewed by Enrrique Chowdhury M.D., PhD ([id number]) Normal [facility] Comment on above: Performed By: #### F ERR, B12, SEPG, IRON, TSH, TRANSF, SERFOL ####[facility] [id number] [place], [place] [phone] Remote CBCDIF (for [facility] use o nly)on 03-23-2021 Abs Baso <0.03 Normal <0.11 [facility] Abs [place] 0.37 k/uL Normal <0.87 [facility] Abs Neut 3.53 k/uL Normal 1.45-7.50 [facility] Absolute nRBC <0.01 Normal <0.01 [facility] Basophils/100 WBC (Bld) 0.4 % Normal C [facility] DTYPE Auto Diff Normal [facility] Eosinophils (Bld) [#/Vol] 0.09 10*3/uL Normal <0.46 [facility] Eosinophils/100 WBC (Bld) 1.7 % Normal [facility] Erythrocyte distribution width (RBC) [Ratio] 13.4 % Normal 11.5-15.0 [facility] Hematocrit (Bld) [Volume fraction] 29.3 % Low 39.0-51.0 [facility] Hemoglobin (Bld) [Mass/Vol] 10.0 g/dL Low 13.0-17.0 [facility] Lymphocytes (Bld) [#/Vol] 1.17 10*3/uL Normal 1.00-4.00 [facility] Lymphocytes/100 WBC (Bld) 22.5 % Normal [facility] MCH 31.7 pG Normal 26.0-34.0 [facility] MCHC (RBC) [Mass/Vol] 34.1 g/dL Normal 30.5-36.0 [facility] MCV (RBC) [Entitic vol] 93.0 fL Normal 80.0-100.0 C [facility] Monocytes/100 WBC (Bld) 7.1 % Normal C [facility] Neutrophils/100 WBC (Bld) 68.3 % Normal [facility] NRBCs 0.0 /100 WBC Normal 0 [facility] Platelet mean volume (Bld) [Entitic vol] 8.5 fL Low 9.0-12.7 [facility] Hospital Platelets (Bld) [#/Vol] 162 10*3/uL Normal 150-400 [facility] RBC (Bld) [#/Vol] 3.15 10*6/uL Low 4.20-6.00 [facility] WBC (Bld) [#/Vol] 5.20 10*3/uL Normal 3.70-11.00 [facility] Reticulocyteon 03-23-2021 Abs Retic 0.044 M/uL Normal 0.0180-0.10 00 [facility] Comment on above: Performed By: #### E PO #### [place] [id number] [place] [id number] Retic% 1.4 % Normal 0.4-2.0 [facility] Comment on above: Performed By: #### E PO #### [place] [id number] TSHon 03-23-2021 TSH Qn 2.350 m[IU]/L Normal 0.270-4.200 [facility] Comment on above: Performed By: #### E PO #### [facility] [address] [place] [address] Transferrinon 03-23-2021 Transferrin [Mass/Vol] 181 mg/dL Low 200-360 Cl [facility] Comment on above: Performed By: #### E PO #### [facility] [address] [place] [address] Vitamin B12on 03-23-2021 Cobalamin (Vitamin B12) [Mass/Vol] 654 pg/mL Normal 232-1245 [facility] Comment on above: Performed By: #### E PO #### [facility] [address] [place], [place] [id number] Vital Signs Date Time Vital Sign Value Performing Clinician Facility 01-26-2025 13:35-0400 Body height 187.96 cm Gerry Chang DO Work Phone: [facility] 01-26-2025 13:35-0400 Body mass index (BMI) [Ratio] 29.3 kg/m2 Gerry Ball DO Work Phone: [facility] 01-26-2025 13:35-0400 Body temperature 97.7 [degF] Gerry Ball DO Work Phone: [facility] 01-26-2025 13:35-0400 Body weight 103.58 kg Gerry Ball DO Work Phone: [facility] 01-26-2025 13:35-0400 Diastolic blood pressure 76 mm[Hg] Gerry Ball DO Work Phone: [facility] 01-26-2025 13:35-0400 Heart rate 77 /min Gerry Ball DO Work Phone: [facility] 01-26-2025 13:35-0400 Respiratory rate 18 /min Gerry Ball DO Work Phone: [facility] 01-26-2025 13:35-0400 SaO2% (BldA) [Mass fraction] 100 % Gerry Ball DO Work Phone: [facility] 01-26-2025 13:35-0400 Systolic blood pressure 138 mm[Hg] Gerry Ball DO Work Phone: [facility] 11-28-2024 08:37-0400 Body height 187.96 cm Gerry Ball DO Work Phone: [facility] 11-28-2024 08:37-0400 Body mass index (BMI) [Ratio] 28.9 kg/m2 Gerry Ball DO Work Phone: [facility] 11-28-2024 08:37-0400 Body weight 102.11 kg Gerry Ball DO Work Phone: [facility] 11-28-2024 08:37-0400 Diastolic blood pressure 88 mm[Hg] Gerry Ball DO Work Phone: [facility] 11-28-2024 08:37-0400 Heart rate 73 /min Gerry Ball DO Work Phone: [facility] 11-28-2024 08:37-0400 Respiratory rate 12 /min Gerry Ball DO Work Phone: [facility] 11-28-2024 08:37-0400 Systolic blood pressure 155 mm[Hg] Gerry Ball DO Work Phone: [facility] 10-29-2024 09:13-0400 Body height 187.96 cm [facility] 10-29-2024 09:13-0400 Body mass index (BMI) [Ratio] 29.2 kg/m2 [facility] 10-29-2024 09:13-0400 Body weight 103.41 kg [facility] 10-29-2024 09:13-0400 Diastolic blood pressure 80 mm[Hg] [facility] 10-29-2024 09:13-0400 Heart rate 64 /min [facility] 10-29-2024 09:13-0400 Respiratory rate 16 /min [facility] 10-29-2024 09:13-0400 SaO2% (BldA) [Mass fraction] 100 % [facility] 10-29-2024 09:13-0400 Systolic blood pressure 146 mm[Hg] [facility] 10-16-2024 08:23-0400 Diastolic blood pressure 80 mm[Hg] AILEEN MELISSA [facility] 10-16-2024 08:23-0400 Mean blood pressure 101 mm[Hg] AILEEN MELISSA [facility] 10-16-2024 08:23-0400 Systolic blood pressure 142 mm[Hg] AILEEN MELISSA [facility] 10-16-2024 08:10-0400 Blood Pressure Location AILEEN MELISSA [facility] 10-16-2024 08:10-0400 Body temperature 98.06 [degF] AILEEN MELISSA [facility] 10-16-2024 08:10-0400 Diastolic blood pressure 86 mm[Hg] AILEEN MELISSA [facility] 10-16-2024 08:10-0400 Heart rate 74 /min AILEEN MELISSA [facility] 10-16-2024 08:10-0400 Respiratory rate 16 /min AILEEN MELISSA [facility] 10-16-2024 08:10-0400 Systolic blood pressure 152 mm[Hg] AILEEN MELISSA [facility] 07-30-2024 08:30-0500 Body height 187.96 cm [facility] 07-30-2024 08:30-0500 Body mass index (BMI) [Ratio] 29.1 kg/m2 [facility] 07-30-2024 08:30-0500 Body weight 102.96 kg [facility] 07-30-2024 08:30-0500 Diastolic blood pressure 89 mm[Hg] [facility] 07-30-2024 08:30-0500 Heart rate 78 /min [facility] 07-30-2024 08:30-0500 Respiratory rate 12 /min [facility] 07-30-2024 08:30-0500 Systolic blood pressure 139 mm[Hg] [facility] 07-21-2024 14:37-0500 Body height 187.96 cm [facility] 07-21-2024 14:37-0500 Body mass index (BMI) [Ratio] 29.4 kg/m2 [facility] 07-21-2024 14:37-0500 Body weight 103.87 kg [facility] 07-21-2024 14:37-0500 Diastolic blood pressure 87 mm[Hg] [facility] 02-17-2025 14:37-0500 Heart rate 76 /min [facility] 07-21-2024 14:37-0500 Respiratory rate 16 /min [facility] 07-21-2024 14:37-0500 SaO2% (BldA) [Mass fraction] 98 % [facility] 07-21-2024 14:37-0500 Systolic blood pressure 138 mm[Hg] [facility] 05-05-2024 14:43-0500 Body height 182.88 cm [facility] 05-05-2024 14:43-0500 Body mass index (BMI) [Ratio] 30.4 kg/m2 [facility] 05-05-2024 14:43-0500 Body temperature 97.7 [degF] [facility] 05-05-2024 14:43-0500 Body weight 101.6 kg [facility] 05-05-2024 14:43-0500 Diastolic blood pressure 82 mm[Hg] [facility] 05-05-2024 14:43-0500 Heart rate 83 /min [facility] 05-05-2024 14:43-0500 Respiratory rate 16 /min [facility] 05-05-2024 14:43-0500 SaO2% (BldA) [Mass fraction] 100 % [facility] 05-05-2024 14:43-0500 Systolic blood pressure 126 mm[Hg] [facility] 04-14-2024 11:48-0500 Blood Pressure Location Jenaro HANSEN [facility] 04-14-2024 11:48-0500 Diastolic blood pressure 86 mm[Hg] Jenaro HANSEN [facility] 04-14-2024 11:48-0500 Heart rate 86 /min Jenaro HANSEN [facility] 04-14-2024 11:48-0500 Respiratory rate 16 /min Jenaro HANSEN [facility] 04-14-2024 11:48-0500 Systolic blood pressure 149 mm[Hg] Jenaro HANSEN [facility] 03-31-2024 08:30-0400 Body height 182.88 cm [facility] 03-31-2024 08:30-0400 Body mass index (BMI) [Ratio] 30.4 kg/m2 [facility] 03-31-2024 08:30-0400 Body weight 101.66 kg [facility] 03-31-2024 08:30-0400 Diastolic blood pressure 81 mm[Hg] [facility] 03-31-2024 08:30-0400 Heart rate 80 /min [facility] 03-31-2024 08:30-0400 Respiratory rate 12 /min [facility] 03-31-2024 08:30-0400 Systolic blood pressure 140 mm[Hg] [facility] 11-28-2023 08:37-0400 Body height 182.88 cm [facility] 11-28-2023 08:37-0400 Body mass index (BMI) [Ratio] 29.6 kg/m2 [facility] 11-28-2023 08:37-0400 Body weight 99.05 kg [facility] 11-28-2023 08:37-0400 Diastolic blood pressure 80 mm[Hg] [facility] 11-28-2023 08:37-0400 Heart rate 75 /min [facility] 11-28-2023 08:37-0400 Respiratory rate 12 /min [facility] 11-28-2023 08:37-0400 Systolic blood pressure 139 mm[Hg] [facility] 11-02-2023 11:53-0400 Body height 182.88 cm [facility] 11-02-2023 11:53-0400 Body mass index (BMI) [Ratio] 31.1 kg/m2 [facility] 11-02-2023 11:53-0400 Body weight 104.01 kg [facility] 11-02-2023 11:53-0400 Diastolic blood pressure 74 mm[Hg] [facility] 11-02-2023 11:53-0400 Heart rate 60 /min [facility] 11-02-2023 11:53-0400 Respiratory rate 12 /min [facility] 11-02-2023 11:53-0400 Systolic blood pressure 110 mm[Hg] [facility] 08-28-2023 15:35-0400 Diastolic blood pressure 63 mm[Hg] DO Gerry Ball Work Phone: [facility] 08-28-2023 15:35-0400 Heart rate 61 /min DO Gerry Ball Work Phone: [facility] 08-28-2023 15:35-0400 Respiratory rate 14 /min DO Gerry Ball Work Phone: [facility] 08-28-2023 15:35-0400 SaO2% (BldA) [Mass fraction] 97 % DO Gerry Ball Work Phone: [facility] 08-28-2023 15:35-0400 Systolic blood pressure 102 mm[Hg] DO Gerry Ball Work Phone: [facility] 08-28-2023 14:48-0400 Body temperature 98 [degF] DO Gerry Ball Work Phone: [facility] 08-28-2023 14:23-0400 Inhaled oxygen flow rate 8 L/min DO Gerry Ball Work Phone: [facility] 08-28-2023 13:02-0400 Body mass index (BMI) [Ratio] 30.4 kg/m2 DO Gerry Ball Work Phone: [facility] 08-28-2023 12:21-0400 Body height 187.96 cm DO Gerry Ball Work Phone: [facility] 08-28-2023 12:21-0400 Body weight 107.5 kg DO Gerry Ball Work Phone: [facility] 07-30-2023 08:30-0500 Body height 185.42 cm [facility] 07-30-2023 08:30-0500 Body mass index (BMI) [Ratio] 31.6 kg/m2 [facility] 07-30-2023 08:30-0500 Body weight 108.86 kg [facility] 07-30-2023 08:30-0500 Diastolic blood pressure 75 mm[Hg] [facility] 07-30-2023 08:30-0500 Heart rate 80 /min [facility] 07-30-2023 08:30-0500 Respiratory rate 16 /min [facility] 07-30-2023 08:30-0500 Systolic blood pressure 157 mm[Hg] [facility] 03-27-2023 08:30-0400 Body height 185.42 cm Gerry Ball Other [facility] [employer] Other 03-27-2023 08:30-0400 Body mass index (BMI) [Ratio] 30.13 kg/m2 Gerry Ball Other [facility] [employer] Other 03-27-2023 08:30-0400 Body weight 103.6 kg Gerry Ball Other [facility] [employer] Other 03-27-2023 08:30-0400 Diastolic blood pressure 76 mm[Hg] Gerry Ball Other [facility] [employer] Other 03-27-2023 08:30-0400 Respiratory rate 12 /min Gerry Ball Other [facility] [employer] Other 03-27-2023 08:30-0400 Systolic blood pressure 139 mm[Hg] Gerry Ball Other [facility] [employer] Other 04-03-2022 12:40-0400 Blood Pressure Location Jenaro HANSEN [facility] 04-03-2022 12:40-0400 Diastolic blood pressure 82 mm[Hg] Jenaro HANSEN [facility] 04-03-2022 12:40-0400 Heart rate 76 /min Jenaro HANSEN [facility] 04-03-2022 12:40-0400 Respiratory rate 16 /min Jenaro HANSEN [facility] 04-03-2022 12:40-0400 Systolic blood pressure 140 mm[Hg] Jenaro HANSEN [facility] Encounters Encounter Date Encounter Type Care Provider Facility Start: 04-17-2025 ambulatory Jenaro Felisa HANSEN Facili ty:[facility] Start: 04-10-2025 ambulatory Jenaro HANSEN Facili ty:[facility] Start: 03-20-2025 End: 03-20-2025 ambulatory Gerry Chang DO Work Phone: -[facility] Start: 03-20-2025 End: 03-20-2025 Patient encounter procedure Gerry Ball DO -[facility] Work Phone: Start: 02-05-2025 End: 02-05-2025 ambulatory Gerry Ball DO Work Phone: [facility] Work Phone: Start: 02-05-2025 End: 02-05-2025 Patient encounter procedure Gerry Chang DO -[facility] Work Phone: Start: 01-26-2025 End: 01-26-2025 ambulatory Gerry Ball DO Work Phone: [facility] Work Phone: Start: 01-26-2025 End: 01-26-2025 Patient encounter procedure Vaishali Howell MD -[facility] Work Phone: Start: 01-19-2025 Non-patient / Non-visit Vaishali Howell MD -[facility] Work Phone: Start: 01-02-2025 End: 01-02-2025 ambulatory Gerry Chang DO Work Phone: [facility] Work Phone: Start: 01-02-2025 End: 01-02-2025 Patient encounter procedure Gerry Chang DO -[facility] Work Phone: Start: 11-28-2024 End: 11-28-2024 ambulatory Gerry Chang DO Work Phone: [facility] Work Phone: Start: 11-28-2024 End: 11-28-2024 Patient encounter procedure Gerry Chang DO -[facility] Work Phone: Start: 11-04-2024 End: 11-04-2024 ambulatory Jenaro Roberto HANSEN Facility:[id number] Start: 10-29-2024 End: 10-29-2024 ambulatory [facility] Work Phone: Start: 10-29-2024 End: 10-29-2024 [facility] encounter procedure [facility] Work Phone: Start: 10-24-2024 Non-patient / Non-visit [facility] Work Phone: Start: 10-20-2024 Non-patient / Non-visit [facility] Work Phone: Start: 10-16-2024 End: 10-16-2024 Lab Drop off AILEEN DUKES [facility] Start: 10-16-2024 End: 10-16-2024 ambulatory PA-C AILEEN DUKES Facility:[facility] Start: 10-16-2024 End: 10-16-2024 Patient encounter procedure AILEEN DUKES [facility] [place] Start: 10-08-2024 Non-patient / Non-visit [facility] Work Phone: Start: 10-06-2024 End: 10-06-2024 ambulatory Jenaro HANSEN Facility:[facility] Start: 10-06-2024 End: 10-06-2024 Lab Drop off Jenaro HANSEN [facility] Start: 10-06-2024 End: 10-06-2024 ambulatory Jenaro HANSEN Facility:[facility] Start: 09-29-2024 Non-patient / Non-visit [facility] Work Phone: Start: 07-30-2024 End: 07-30-2024 ambulatory [facility] Work Phone: Start: 07-30-2024 End: 07-30-2024 Patient encounter procedure [facility] Work Phone: Start: 07-21-2024 End: 07-21-2024 ambulatory [facility] Work Phone: Start: 07-21-2024 End: 07-21-2024 Patient encounter procedure [facility] Work Phone: Start: 07-14-2024 Non-patient / Non-visit [facility] Work Phone: Start: 06-13-2024 End: 06-13-2024 ambulatory [facility] Work Phone: Start: 06-13-2024 End: 06-13-2024 Patient encounter procedure [facility] Work Phone: Start: 05-13-2024 End: 05-13-2024 Patient encounter procedure [facility] Work Phone: Start: 05-05-2024 End: 05-05-2024 Patient encounter procedure [facility] Work Phone: Start: 04-14-2024 End: 04-14-2024 ambulatory [facility] Facility:[facility] [place] Start: 04-14-2024 End: 04-14-2024 Patient encounter procedure Jenaro Roberto JADE [facility] Start: 04-11-2024 Non-patient / Non-visit [facility] Work Phone: Start: 04-02-2024 Non-patient / Non-visit [facility] Work Phone: Start: 04-01-2024 Non-patient / Non-visit [facility] Work Phone: Start: 03-31-2024 End: 03-31-2024 ambulatory [facility] Work Phone: Start: 03-31-2024 End: 03-31-2024 Patient encounter procedure [facility] Work Phone: Start: 03-29-2024 Patient encounter procedure [facility] Start: 03-21-2024 End: 03-21-2024 Bamboo flowsheet Ashley A Madalyner ENDOCRINOLOGY PHYSICIAN-ENVIRONMENTAL LAWYER Work Phone: [facility] Start: 03-21-2024 End: 03-21-2024 Bamboo flowsheet Ashley A Felter ENDOCRINOLOGY PHYSICIAN-ENVIRONMENTAL LAWYER Work Phone: [facility] Start: 03-21-2024 End: 03-21-2024 Office outpatient visit 15 minutes Ashley A Madalyner ENDOCRINOLOGY PHYSICIAN-ENVIRONMENTAL LAWYER Work Phone: [facility] Comment on above: Melanocytic nevus of right upper extremity; Melanocytic nevus of left upper extremity; Seborrheic keratosis; Actinic keratosis; Capillary angioma; History of SCC (squamous cell carcinoma) of skin Start: 03-21-2024 End: 03-21-2024 ambulatory ASHLEY A FELTER Not Available Start: 02-05-2024 End: 02-05-2024 [facility] Work Phone: Start: 02-05-2024 End: 02-05-2024 Patient encounter procedure [facility] Work Phone: Start: 12-31-2023 End: 12-31-2023 ambulatory [facility] Work Phone: Start: 12-31-2023 End: 12-31-2023 Patient encounter procedure [facility] Work Phone: Start: 12-19-2023 Non-patient / Non-visit [facility] Work Phone: Start: 11-28-2023 End: 11-28-2023 ambulatory [facility] Work Phone: Start: 11-28-2023 End: 11-28-2023 Patient encounter procedure [facility] Work Phone: Start: 11-02-2023 End: 11-02-2023 ambulatory DO Gerry Ball Work Phone: [facility] Work Phone: Start: 11-02-2023 End: 11-02-2023 Patient encounter procedure DO Gerry Ball Work Phone: [facility] Work Phone: Start: 10-31-2023 End: 10-31-2023 ambulatory GERRY W MURCEK Not Available Start: 09-19-2023 End: 09-19-2023 ambulatory GERRY W MURCEK Not Available Start: 09-12-2023 End: 09-12-2023 ambulatory DO Gerry Ball Work Phone: [facility] Work Phone: Start: 09-12-2023 End: 09-12-2023 Patient encounter procedure DO Gerry Ball Work Phone: [facility] Work Phone: Start: 09-05-2023 End: 09-05-2023 ambulatory GERRY W NOHEMI Not Available Start: 08-29-2023 End: 08-29-2023 ambulatory GERRY W PAULINAK Not Available Start: 08-28-2023 End: 08-28-2023 ambulatory Gerry Nelson Facility:[facility] Start: 08-28-2023 End: 08-28-2023 Admission to same day surgery center DO Gerry Chang Work Phone: [facility] [place] Start: 08-28-2023 End: 08-28-2023 ambulatory DO Gerry Chang Work Phone: [facility] Work Phone: Start: 08-22-2023 End: 08-22-2023 ambulatory Gerry Nelson Facility:[facility] Start: 08-22-2023 Encounter for preprocedural laboratory examination Gerry Nelson [facility] Start: 08-22-2023 End: 08-22-2023 ambulatory DO Gerry Chang Work Phone: [facility] Work Phone: Start: 08-22-2023 End: 08-22-2023 Patient encounter procedure DO Gerry Chang Work Phone: [facility] Work Phone: Start: 08-22-2023 End: 08-22-2023 ambulatory GERRY NELSON Not Available Start: 08-10-2023 End: 08-10-2023 Patient encounter procedure DO Gerry Chang Work Phone: [facility] Work Phone: Start: 08-06-2023 Non-patient / Non-visit DO Hayes Chang Work Phone: [facility] Work Phone: Start: 07-30-2023 End: 07-30-2023 ambulatory [facility] Work Phone: Start: 07-30-2023 End: 07-30-2023 Patient encounter procedure [facility] Work Phone: Start: 07-27-2023 Non-patient / Non-visit [facility] [employer] Work Phone: Start: 07-25-2023 End: 07-25-2023 ambulatory TALIB GANT Not Available Start: 07-03-2023 End: 07-03-2023 ambulatory Gerry Chang Other [employer] Other Start: 07-03-2023 Nursing evaluation o f patient and report Gerry Chang [facility] Start: 05-22-2023 End: 05-22-2023 ambulatory ROCKY Mann HERNANDEZ Not Available Start: 03-29-2023 End: 03-29-2023 ambulatory Gerry Chang Other [employer] Other Start: 03-29-2023 Telephone encounter Gerry PICHARDO [facility] Start: 03-27-2023 End: 03-27-2023 ambulatory Gerry Chang Other [employer] Other Start: 03-27-2023 Patient encounter procedure Gerry Chang [facility] Start: 03-02-2023 End: 03-02-2023 ambulatory Gerry Chang Other [employer] Other Start: 03-02-2023 Office outpatient vi sit 15 minutes Gerry Chang [facility] Start: 03-02-2023 Telephone encounter Gerry Chang [facility] Start: 02-06-2023 End: 02-06-2023 ambulatory Gerry Chang Other [employer] Other Start: 02-06-2023 Nursing evaluation o f patient and report Gerry Chang [facility] Start: 02-06-2023 Telephone encounter Gerry Chang [facility] Start: 01-01-2023 End: 01-01-2023 ambulatory Gerry Chang Other [employer] Other Start: 01-01-2023 Nursing evaluation o f patient and report Gerry Bernardo [facility] Start: 11-27-2022 End: 11-27-2022 ambulatory Gerry Chang Other [employer] Other Start: 11-27-2022 Nursing evaluation o f patient and report Gerry Chang [facility] Start: 10-18-2022 End: 10-18-[address] GERRY CHANG Facility:[facility] Start: 09-06-2022 End: 09-06-[address] GERRY CHANG Facility:[facility] Start: 09-04-2022 End: 09-04-2022 ambulatory Gerry Chang Other [employer] Other Start: 09-04-2022 Telephone encounter Gerry Chang FP G [facility] Start: 08-28-2022 End: 08-28-2022 ambulatory Gerry Chang Other [employer] Other Start: 08-28-2022 Nursing evaluation o f patient and report Gerry Bernardo [facility] Start: 07-27-2022 End: 07-27-2022 ambulatory Gerry Chang Other [employer] Other Start: 07-27-2022 Nursing evaluation o f patient and report Gerry Chang [facility] Start: 07-26-2022 End: 07-26-[address] GERRY CHANG Facility:[facility] Start: 07-07-2022 End: 07-07-2022 ambulatory Gerry Chang Other [employer] Other Start: 07-07-2022 Telephone encounter Gerry Chang FP [facility] Start: 06-26-2022 End: 06-26-2022 ambulatory Gerry Chang Other [employer] Other Start: 06-26-2022 Nursing evaluation o f patient and report Gerry Chang [facility] Start: 06-14-2022 End: 06-14-[address] GERRY CHANG Facility:[facility]1 Start: 05-17-2022 End: 05-17-[address] GERRY CHANG Facility:[facility]1 Start: 05-03-2022 End: 05-03-[address] GERRY CHANG Facility:[facility]1 Start: 04-05-2022 End: 04-06-[address] GERRY CHANG Facility:[facility]1 Start: 04-03-2022 End: 04-03-2022 Patient encounter procedure Jenaro HANSEN [facility] Start: 03-27-2022 Adult health examination Carlitos Chang Other [employer] Other Start: 03-27-2022 Pre-procedure evalua tion check Gerry Chang Other [employer] Other Start: 03-22-[address] GERRY CHANG Facili ty:H1 Start: 03-13-2022 Telephone encounter Kendall snwo APRN.ENVIRONMENTAL LAWYER Work Phone: Hematology/Oncology Comment on above: Lab Orders Start: 03-03-2022 End: 03-04-[address] BLADIMIR REYES . Facility:[facility]1 Start: 03-03-2022 End: 03-04-[address] GERRY CHANG Facility:[facility]1 Start: 02-27-2022 End: 02-28-2022 amb[address] Work Phone: Hematology/Oncology Comment on above: Obstruction [...] MADRIGAL Facility:H1 Start: 03-23-2021 End: 03-23-2021 ambulatory MARYJORA ISAACSPATRICIA [facility] Procedures Date Procedure Procedure Detail Performing Clinician Start: 03-21-2024 CRYOTHERAPY SKIN LESION Ashley Manzano ENDOCRINOLOGY PHYSICIAN-ENVIRONMENTAL LAWYER Work Phone: Start: 08-28-2023 Excision of lesion of cheek DO Gerry Chang Work Phone: Start: 03-03-[address] GERRY CHANG Comment on above: Performed By: #### PSAD #### [facility] [address] [place] [address] Dr. Dave Duffy Start: 11-25-2020 Adult depression [...] 04/02/2025 8:30 AM EDT Office Visit [facility] [address] [place] [address] Ashley Manzano, ENDOCRINOLOGY PHYSICIAN-ENVIRONMENTAL LAWYER [address] [place] [address] [facility] Start: 03-21-2024 End: 03-21-2024 Patient encounter procedure 03/21/2024 8:30 AM EDT Office Visit [facility] [address] [place] [address] Ashley Manzano, ENDOCRINOLOGY PHYSICIAN-ENVIRONMENTAL LAWYER [address] [place] [address] Arrived [facility] Comment on above: Arrived Start: 02-03-2024 Influenza vaccination Influenza Vacc ine (#1) [facility] Start: 08-28-2023 [facility] Start: 08-28-2023 [facility] Start: 03-23-2022 COLORECTAL CANCER SCREENING COLORECTAL CANCER SCREENING [facility] Start: 03-23-2022 FECAL OCCULT BLOOD FECAL OCCULT BLOO D [facility] Start: 03-13-2022 End: 05-13-2022 CBC W Auto Differential panel - Blood CBC + DIFF Lab Routine Non-Hodgkin's lymphoma, unspecified body region, unspecified non-Hodgkin lymphoma type (HCC) Expected: 03/13/2022, Expires: 05/13/[address] [facility] Work Phone: Comment on above: Expected: 03/13/2022 , Expires: 05/13/2022 Start: 03-13-2022 End: 05-13-2022 Comprehensive metabolic 2000 panel - Serum or Plasma COMP METABOLIC PANEL Lab Routine Non-Hodgkin's lymphoma, unspecified body region, unspecified non-Hodgkin lymphoma type (HCC) Expected: 03/13/2022, Expires: 05/13/[address] [facility] Work Phone: Comment on above: Expected: 03/13/2022 , Expires: 05/13/2022 Start: 03-13-2022 End: 05-13-2022 Lactate dehydrogenase [Enzymatic activity/volume] in Serum or Plasma LD LACTATE DEHYDRO Lab Routine Non-Hodgkin's lymphoma, unspecified body region, unspecified non-Hodgkin lymphoma type (HCC) Expected: 03/13/2022, Expires: 05/13/[address] [facility] Work Phone: Comment on above: Expected: 03/13/2022 , Expires: 05/13/2022 Start: 02-02-2022 Influenza vaccination INFLUENZA (#1) [facility] Start: 11-25-2021 Adult depression screening assessment DEPRESSION SCREENING [facility] Start: 09-23-2021 Colonoscopy COLONOSCOPY [facility] Start: 06-04-2021 ADVANCE DIRECTIVE DISCUSSION ADVANCE DIRECTIVE DISCUSSION [facility] Start: 06-04-2021 DEPRESSION ASSESSMENT DEPRESSION ASS ESSMENT [facility] Start: 04-11-2021 COVID-19 VACCINE (4 - Booster for Pfizer series) COVID-19 VACCINE (4 - Booster for Pfizer series) [facility] Start: 1992 COLOGUARD (FIT-DNA) COLOGUARD (FIT-D NA) [facility] Start: [address] COLONOGRAPHY [facility] Start: 1992 SIGMOIDOSCOPY SIGMOIDOSCOPY [facility] Start: 1966 Urine microalbumin profile DTAP,TDAP,TD (1 - Tdap) [facility] Start: 1965 ANNUAL PCP TEAM BURLAP SPREADER ALETHA DISEASE VISIT ANNUAL PCP TEAM CHRONIC DISEASE VISIT [facility] Start: 1965 Hepatitis B surface antibody level LDL CHOLESTEROL [facility] Start: 1965 HEPATITIS C SCREENING HEPATITIS C SC LEV [facility] Start: 1957 3 comp foot exam completed DIABETIC FOOT EXAM [facility] Start: 1957 Hepatitis C antibody , confirmatory test DILATED RETINAL EXAM [facility] Start: 1953 PNEUMOCOCCAL: 65+ (1 - PCV) PNEUMOCOCCAL: 65+ (1 - PCV) [facility] Start: 1952 Hemoglobin A1c/Hemoglobin.total in Blood HBA1C [facility] Comprehensive metabo lic 1999 panel - Serum or Plasma [facility] Patient referral [facility] Work Phone: Renal function 1999 panel - Serum or Plasma [facility] Renal function 1999 panel - Serum or Plasma [facility] Renal function 1999 panel - Serum or Plasma [facility] Renal function 1999 panel - Serum or Plasma [facility] Immunizations Immunization Date Immunization Notes Care Provider [facility] 02-13-2024 influenza virus vaccine, unspecified formulation Ashley Manzano ENDOCRINOLOGY PHYSICIAN-ENVIRONMENTAL LAWYER Work Phone: [facility] 03-13-2023 COVID-19 Vaccine Pfi zer - Documentation Purposes Only Gerry Chang Other [facility] 03-13-2023 influenza virus vaccine, unspecified formulation [facility] 03-13-2023 Influenza, Seasonal, Quadrivalent, Adjuvanted Ashley Manzano ENDOCRINOLOGY PHYSICIAN-ENVIRONMENTAL LAWYER Work Phone: [facility] [employer] 03-13-2023 influenza, high dose seasonal, preservative-free Gerry Chang Other [employer] [facility] [employer] Other 02-23-2022 influenza virus vaccine, split virus (incl. purified surface antigen) Gerry Chang Other [employer] Other 02-23-2022 influenza virus vaccine, unspecified formulation [facility] 02-23-2022 Influenza, Seasonal, Quadrivalent, Adjuvanted Ashley Manzano ENDOCRINOLOGY PHYSICIAN-ENVIRONMENTAL LAWYER Work Phone: [facility] 02-23-2022 SARS-CoV-2 (COVID-19 ) [id number] Jenaro HANSEN [facility] 09-13-2021 SARS-CoV-2 mRNA (awdfegbtflo-qtko-bguyx se) vaccine Jenaro HANSEN [facility] 02-25-2021 influenza virus vaccine, split virus (incl. purified surface antigen) Gerry Chang Other [employer] Other 02-25-2021 influenza virus vaccine, unspecified formulation [facility] 02-25-2021 Seasonal trivalent influenza vaccine, adjuvanted, preservative free Aileen Jenkins RN [facility] 01-17-2021 SARS-CoV-2 (COVID-19 ) mRNA BNT-162b2 vax Jenaro HANSEN [facility] Comment on above: Result Comment: 2023: [id number] 07-28-2020 COVID-19 Vaccine Pfi zer - Documentation Purposes Only Gerry Chang Other [facility] Comment on above: Result Comment: 2023: [id number] 07-07-2020 COVID-19 Vaccine Pfi zer - Documentation Purposes Only Gerry Chang Other [facility] Comment on above: Result Comment: 2023: [id number] 02-05-2020 influenza virus vaccine, unspecified formulation Jenaro HANSEN [facility] 02-05-2020 influenza, high-dose , quadrivalent vaccine (FLUZONE HIGH DOSE QUADRIVALENT) Aileen Jenkins RN [facility] 08-17-2019 zoster vaccine recombinant Aileen Jenkins RN [facility] 06-01-2019 zoster vaccine recombinant Aileen Jenkins RN [facility] 03-12-2019 influenza virus vaccine, split virus (incl. purified surface antigen) eGrry Chang Other [facility] [employer] Other 03-12-2019 influenza virus vaccine, unspecified formulation [facility] 03-26-2018 influenza virus vaccine, split virus (incl. purified surface antigen) Gerry Chang Other [facility] [employer] Other 03-26-2018 influenza virus vaccine, unspecified formulation [facility] 03-26-2018 Seasonal trivalent influenza vaccine, adjuvanted, preservative free Aileen Jenkins RN [facility] 11-16-2017 diphtheria, tetanus toxoids and acellular pertussis vaccine, unspecified formulation Gerry Chang Other [facility] 04-12-2017 influenza virus vaccine, split virus (incl. purified surface antigen) Gerry Chang Other [facility] [employer] Other 04-12-2017 influenza virus vaccine, unspecified formulation [facility] 04-12-2017 influenza, high dose seasonal, preservative-free Aileen Jenkins RN [facility] 03-15-2016 influenza virus vaccine, split virus (incl. purified surface antigen) Gerry Chang Other [facility] [employer] Other 03-15-2016 influenza virus vaccine, unspecified formulation [facility] 03-15-2016 influenza, high dose seasonal, preservative-free Aileen Jenkins RN [facility] 04-09-2015 pneumococcal conjuga te vaccine, 13 valent Gerry Chang Other [facility] 04-06-2015 influenza virus vaccine, split virus (incl. purified surface antigen) Gerry Chang Other [facility] [employer] Other 04-06-2015 influenza virus vaccine, unspecified formulation [facility] 04-06-2015 influenza, high dose seasonal, preservative-free Aileen Jenkins RN [facility] 03-16-2014 pneumococcal Conjuga te, unspecified formulation; Translations: [Need for prophylactic vaccination against Streptococcus pneumoniae (pneumococcus)] Gerry Chang Other [facility] [employer] Other 03-16-2014 pneumococcal polysaccharide vaccine, 23 valent Gerry Chang Other [facility] 03-16-2014 tetanus and diphther ia toxoids, adsorbed, preservative free, for adult use (5 Lf of tetanus toxoid and 2 Lf of diphtheria toxoid) Gerry Chang Other [facility] 04-10-2013 zoster vaccine, live Aileen Roberto Umesh [facility] 03-26-2002 diphtheria, tetanus toxoids and acellular pertussis vaccine, unspecified formulation Gerry Bernardo Other [facility] Payers Date Payer Category Payer Private Health Insurance [id number] 2004 Medicare [id number] 1959 Medicare [id number] 1959 Self-pay 1959 Unknown [id number] 1947 Unknown [id number] 2.16.840.1.342003.3.579.2. 593 1947 Unknown [id number] 2.16.840.1.790224.3.579.2. 593 1947 Unknown [id number] 2.16.840.1.953606.3.579.2. 593 1947 Unknown [id number] 2.16.840.1.717764.3.579.2. 593 1947 Unknown [id number] 2.16.840.1.463679.3.579.2. 593 1947 Unknown [id number] 2.16.840.1.936016.3.579.2. 593 1947 Unknown [id number] 2.16.840.1.714119.3.579.2. 593 1947 Unknown [id number] 2.16.840.1.925063.3.579.2. 593 1947 Unknown [id number] 2.16.840.1.987153.3.579.2. 593 1947 Unknown [id number] 2.16.840.1.445911.3.579.2. 593 1947 Unknown [id number] 2.16.840.1.251058.3.579.2. 593 1947 Unknown [id number] 2.16.840.1.020823.3.579.2. 593 1947 Unknown [id number] 2.16.840.1.821956.3.579.2. 593 1947 Unknown [id number] 2.16.840.1.173153.3.579.2. 593 1947 Unknown [id number] 2.16.840.1.891846.3.579.2. 593 1947 Unknown [id number] 2.16.840.1.531915.3.579.2. 593 1947 Unknown [id number] 2.16.840.1.915143.3.579.2. 593 1947 Unknown [id number] 2.16.840.1.552463.3.579.2. 593 1947 Unknown [id number] 2.16.840.1.230373.3.579.2. 1259 1947 Unknown [id number] 2.16.840.1.885832.3.579.2. 1259 1947 Unknown [id number] 2.16.840.1.502869.3.579.2. 1259 1947 Unknown [id number] 2.16.840.1.607635.3.579.2. 1259 1947 Unknown [id number] 2.16.840.1.817395.3.579.2. 1259 1947 Unknown [id number] 2.16.840.1.935233.3.579.2. 1259 1947 Unknown [id number] 2.16.840.1.485338.3.579.2. 1259 1947 Unknown [id number] 2.16.840.1.176858.3.579.2. 1259 1947 Unknown [id number] 2.16.840.1.597249.3.579.2. 72 1947 Unknown [id number] 2.16.840.1.895429.3.579.2. 72 1947 Unknown [id number] 2.16.840.1.699957.3.579.2. 72 1947 Unknown [id number] 2.16.840.1.404558.3.579.2. 72 1947 Unknown [id number] 2.16.840.1.562662.3.579.2. 72 1947 Unknown [id number] 2.16.840.1.277799.3.579.2. 72 1947 Unknown [id number] 2.16.840.1.742069.3.579.2. 72 1947 Unknown [id number] 2.16.840.1.716413.3.579.2. 72 Medicare [id number] Private Health Insurance [facility] [id number] Unknown [id number] 2.16.840.1.096430.3.579.2. 593 Unknown [id number] 2.16.840.1.210625.3.579.2. 531 Unknown [id number] 2.16.840.1.806243.3.579.2. 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 Start: 02-11-2022 End: 02-27-2022 Exposure to SARS-CoV-2 (event) Not sure [facility] Start: 10-31-2023 End: 03-21-2024 Sex Assigned At Male [facility] Start: 1945 Sex Assigned At Male F [facility] Start: 10-31-2023 End: 03-21-2024 Alcoholic beverage intake Current drinker of alcohol (finding) [facility] Start: 10-31-2023 End: 03-21-2024 History of Social function [facility] Start: 03-06-2023 Alcohol Comment Monthly or less [facility] Tobacco smoking status Never [facility] Start: 06-13-2024 End: 10-29-2024 Sex Male (finding) [facility] Sexual Orientation [facility] Medical Equipment Procedure Code Equipment Code [...] Diagnostic (Contour Next Test Strips) strip Start: 02-19-2025 Blood Sugar Diagnostic (Contour Next Test Strips) strip Start: 06-16-2024 End: 06-16-2024 Blood Sugar Diagnostic (Contour Next Test Strips) strip Start: 06-16-2024 End: 02-19-2025 Goals Date Patient Goal Desired Activity /State Functional Status Date Assessment Result Facility 10-16-2024 Functional Status N/A [facility] 04-14-2024 Functional Status N/A [facility] 04-03-2022 Functional Status N/A [facility] Clinical Notes 05-02-2019 to 01-26-2025 Note Date & Type Note Facility 01-26-2025 Evaluation note Diagnosis Onset Date Resolution Anemia of renal disease acute A ugust 2024 1:30pm CKD (chronic kidney disease) stage 4, GFR 15-29 ml/min acute January 26 1:30pm Hyperkalemia acute January 26, 2025 1:30pm Hyperlipidemia, mixed acute Jan us2024 1:30pm Hypertensive chronic kidney disease with stage 1 through stage 4 chronic ki acute 2024 1:30pm Hypomagnesemia acute January 1:30pm Secondary hyperparathyroidism acute January 26, 2025 1:30pm Type 2 diabetes mellitus with diabetic chronic kidney disease acute January 26 1:30pm [facility] Work Phone: 1(165) 989-444006-27-2025 Evaluation note* Diagnosis Onset Date Resolution Status Admit Date Chronic kidney disease acute Ju 2024 8:04am [...] h hyperglycemia acute November 28, 2024 8:04am Anemia of renal disease acute A 2024 1:30pm CKD (chronic kidney disease) stage 4, GFR 15-29 ml/min acute January 26, 2025 1:30pm Hyperkalemia acute January 26, 2025 1:30pm Hyperlipidemia, mixed acute Jan 1:30pm Hypertensive chronic kidney disease with stage 1 through stage 4 chronic ki acute January 26 1:30pm Hypomagnesemia acute January 1:30pm Secondary hyperparathyroidism acute January 26, 2025 1:30pm Type 2 diabetes mellitus wit h diabetic chronic kidney disease acute January 26, 2025 1:30pm [facility] Work Phone: 1(717) 899-598005-28-2025 Evaluation note* Diagnosis Onset Date Resolution Status [...] h diabetic chronic kidney disease acute May 28th, 2025 9:07am Chronic kidney disease acute Ju 2024 [...] h hyperglycemia acute November 28, 2024 8:04am [facility] Work Phone: 1(940) 502-151905-28-2025 Evaluation note* Diagnosis Onset Date Resolution Status [...] h hyperglycemia acute November 28, 2024 8:04am [facility] Work Phone: 1(260) 483-603905-28-2025 Evaluation note* Diagnosis Onset Date Resolution Status [...] h hyperglycemia acute November 28, 2024 8:04am Anemia of renal disease acute A ug2024 1:30pm CKD (chronic kidney disease) stage 4, GFR 15-29 ml/min acute January 26, 2025 1:30pm Hyperkalemia acute January 26, 2025 1:30pm Hyperlipidemia, mixed acute Jan 1:30pm Hypertensive chronic kidney disease with stage 1 through stage 4 chronic ki acute January 26 1:30pm Hypomagnesemia acute January 1:30pm Secondary hyperparathyroidism acute January 26, 2025 1:30pm Type 2 diabetes mellitus wit h diabetic chronic kidney disease acute January 26, 2025 1:30pm [facility] Work Phone: 1(575) 711-742405-15-2025 Hospital Discharge instructions Patient Education 10/16/2024 10:10:05 [...] Follow these instructions at home: Medicines Take mblj-qqn-csmtjuw and prescription medicines only as told by [...] or the blood stops without treatment. Take suea-wew-qzvzibk and prescription medicines only as told by your health care provider. Drink enough fluid to keep your urine pale yellow. This information is not intended to replace advice given to you by your health care provider. Make sure you discuss any questions you have with your health care provider. Document Revised: 01/19/2021 Document Reviewed: 01/19/2021 [employer] Patient Education 2023 [employer]. Follow Up Care 10/08/2024 16:20:15 With:[facility] Address: When: Unknown Comments:[facility] as scheduled. [facility] NotePatient Education Urology Hematuria, Adult Hematuria [...] these instructions at home: Medicines ??? Take tqcm-sxt-iewauyl and prescription medicines only as told by [...] the blood stops without treatment. ??? Take hwvm-niq-rcrqjkt and prescription medicines only as told by your health care provider. ??? Drink enough fluid to keep your urine pale yellow. This information is not intended to replace advice given to you by your health care provider. Make sure you discuss any questions you have with your health care provider. Document Revised: 01/19/2021 Document Reviewed: 01/19/2021 [employer] Patient Education ? 2023 [employer] 10-06-2024 NotePatient Education Urology Hematuria, Adult Hematuria [...] these instructions at home: Medicines ??? Take cigp-rij-kzjghnu and prescription medicines only as told by [...] the blood stops without treatment. ??? Take cyvh-uzk-khfifzx and prescription medicines only as told by your health care provider. ??? Drink enough fluid to keep your urine pale yellow. This information is not intended to replace advice given to you by your health care provider. Make sure you discuss any questions you have with your health care provider. Document Revised: 01/19/2021 Document Reviewed: 01/19/2021 [employer] Patient Education ? 2023 [employer] [facility] 05-05-2024 Evaluation note* Diagnosis Onset Date Resolution [...] stage 4 chronic ki acute July 21, 2:34pm Hypomagnesemia acute July 052024 2:34pm Secondary hyperparathyroidism acute July 21, 2024 2:34pm Thrombocytopenia acute July 21, 2024 2:34pm Type 2 diabetes mellitus wit h diabetic chronic kidney disease acute July 21, 2024 2:34pm [facility] Work Phone: 1(343) 762-622412-02-2024 Evaluation note* Diagnosis Onset Date Resolution Status [...] mellitus wit h hyperglycemia acute July 30, 8:13am [facility] Work Phone: 1(790) 647-623111-11-2024 Hospital Discharge instructions Patient Education 04/14/2024 12:36:08 [...] treatment? Where to find more information The [place] [employer]: www.cancer.org [place] [employer]: www.auanet.org Contact a health care [...] provider. Document Revised: 11/14/2021 Document Reviewed: 11/14/2021 [employer] Patient Education 2023 [employer]. Follow Up Care 04/08/2024 11:27:26 With:JADE DOYLE, Jenaro Roberto, URL Address: [facility] [address] [place] [address]- [phone] When: Unknown Comments:6 mos w/ PSA [facility] 11-11-2024 NoteUrology Office/Clinic Note Chief Complaint referral [...] [facility] [address] [place] [address] [phone] Additional Instructions: 6 mos w/ PSA Patient Education Prostate Cancer Screening I, Rochelle Hightower, personally scribed for Dr. Hansen on 04/14/2024 12:42:10. . Documentation recorded by the scribe, Rochelle Hightoewr, accurately reflects the services(s) I performed and [...] Oral, Daily Tradjenta, Oral, (more content not included)...[facility] Comment on above:Result Comment: Electronically Signed By: Jenaro HANSEN MD\.br\Date and Time Signed: 04/14/24 12:43 EST\.br\Electronically Co-Signed By: Rochelle Hightower\.br\Date and Time Co-Signed: 04/14/24 12:42 [id number] Note Patient Education Oncology Prostate Cancer Screening [...] Where to find more information ??? The [place] [employer]: www.cancer.org ??? [place] [employer]: www.auanet.org Contact a health care [...] men. The prostate gland (more content not included)...[facility] Evaluation note* Diagnosis Onset Date [...] acute May 05, 2024 2:29pm [facility] Work Phone: 1(317) 498-303810-18-2024 History of Present illness Narrative* Ashley Manzano, ENDOCRINOLOGY PHYSICIAN-ENVIRONMENTAL LAWYER - 03/21/2024 8:30 AM EDT Skin Check [...] Anterior (2), Right Forearm - Posterior, Right Oriental [employer] Erythematous scaly papules Patient was counseled regarding [...] limited to risks of scarring, darker or school library media specialist pigmentary changes, recurrence, incomplete removal and infection. [...] Anterior (2), Right Forearm - Posterior, Right [employer] 5. Capillary angioma (2) Left Arm, Right [...] 1 year, skin check documented in this encounterThe [facility] [id number] Evaluation note* Encounter Date Diagnosis Assessment Notes Treatment Notes Treatment Clinical Notes Jun, Pernicious anemia (ICD-10 - D51.0) [employer] Other 10-24-2023 Evaluation note* Encounter Date Diagnosis [...] index [BMI] 30.0-30.9, adult (ICD-10 - Z68.30) [facility] Other 09-29-2023 Evaluation note* Encounter Date Diagnosis [...] in public places for complete 10 days [facility] Other 09-05-2023 Evaluation note* Encounter Date Diagnosis Assessment Notes Treatment Notes Treatment Clinical Notes Feb, Pernicious anemia (ICD-10 - D51.0) [facility] Other 07-31-2023 Evaluation note* Encounter Date Diagnosis Assessment Notes Treatment Notes Treatment Clinical Notes Dec, Pernicious anemia (ICD-10 - D51.0) [facility] 06-26-2023 Evaluation note* Encounter Date Diagnosis Assessment Notes Treatment Notes Treatment Clinical Notes Nov, Pernicious anemia (ICD-10 - D51.0) [facility] 03-27-2023 Evaluation note* Encounter Date Diagnosis Assessment Notes Treatment Notes Treatment Clinical Notes Aug, Pernicious anemia (ICD-10 - D51.0) [facility] 02-23-2023 Evaluation note* Encounter Date Diagnosis Assessment Notes Treatment Notes Treatment Clinical Notes Jul, Pernicious anemia (ICD-10 - D51.0) [facility] 01-23-2023 Evaluation note* Encounter Date Diagnosis Assessment Notes Treatment Notes Treatment Clinical Notes Jun, Pernicious anemia (ICD-10 - D51.0) [facility] Other 10-31-2022 Hospital Discharge instructions Patient Education [...] including vitamins, herbs, eye drops, creams, and [id number] medicines. This also includes: ?Medicines to assist [...] 06/23/2005 Document Revised: 05/03/2018 Document Reviewed: 02/25/2018 [employer] Patient Education 2020 [employer]. Follow Up Care 03/28/2021 16:51:27 With:JADE DOYLE, Jenaro Roberto, URL Address: [facility] [address] , [place] [address]- [phone] When: only if needed [facility] 10-10-2022 Miscellaneous Notes* Telephone Encounter - Irena Cabrera - 03/13/2022 2:48 PM EDT Per last note 03/2021 follow up with labs. Please add lab orders for Sunday03/22/22. Thanks. Irena Cabrera MA documented in this encounterOhio [facility]-2022 NoteHNO ID: [id number] Author: Iona Cabrera RN Service: ? Author Type: Registered Nurse Type: Progress Notes Filed: 02/28/2022 2:28 PM Note Text: Report of findings called to Trisha VIDAL at Dr. Jasso' office. She states she will let Dr. Reyes know. Elisabeth Cabrera [facility]09-26-2022 NoteHNO ID: [id number] Author: Iona Cabrera RN Service: ? Author Type: Registered Nurse Type: Progress Notes Filed: 02/27/2022 1:07 PM Note Text: Patient arrived at [facility] for possible activase for port without [...] Reyes as scheduled on 03/01/22. Elisabeth Cabrera [facility]09-26-2022 History of Present illness Narrative* Iona [...] 03/01/22. Elisabeth Cabrera RN documented in this encounterOhio State University [facility]09-23-2022 Miscellaneous Notes* Telephone Encounter - Yoly Boss PA-C - 02/24/2022 8:21 AM EDT Done Yoly Boss PA-C * Telephone Encounter - Eamon Biswas RN - 02/23/2022 4:40 PM EDT Patient of Dr Kidd who is scheduled for cath vernell 02/27/22 per prior phone encounter, can you please place orders. Thanks! Eamon Biswas RN documented in this encounterOhio [facility]09-20-2022 Miscellaneous Notes* Telephone Encounter - Allyssa Rueda - 02/21/2022 1:51 PM EDT Patient has been scheduled for activase on Sunday, 02/27. Called and spoke with regarding this appointment. Allyssachristi Rueda * Telephone Encounter - Aileen Fish [facility] - 02/21/2022 1:12 PM EDT Xray report scanned. * Telephone Encounter - Aileen Jenkins RN - 02/21/2022 12:24 PM EDT Spoke with and informed her that the orders were placed. NSG: states that it was accessed 2 days in a row at [facility] and there was swelling above port site. Dr. Reyes thought perhaps the nurse missed as they use a smaller port at [facility] which is where he had it placed. Informed that if we have swelling while patient is here, we would not proceed. verbalized understanding. PSS: please call patient/ to schedule on infusion schedule for possible 2 doses of activase. Jamia: Can you get an xray that was taken of the port at [facility] recently. ( states they did one) [...] to the treatment schedule. documented in this encounterOhio State University [facility]06-08-2022 NotePROCEDURE: XR FOOT LT MIN [...] Date: 2021-11-09 17:01[facility]10-20-2021 NoteHNO ID: [id number] Author: Kendall Honeycutt APRN.ENVIRONMENTAL LAWYER Service: ? Author Type: Nurse Practitioner Type: [place] Notes Filed: 03/25/2021 12:42 PM Note Text: Patient: Eugenio Crews Location: [facility] : 1945 Attending Physician: Dr. Kings [...] colonoscopy in September with Dr. Reyes in [place]. He denies fevers, chills, night sweats and [...] with any questions or concerns. Kendall Honeycutt APRN.ENVIRONMENTAL LAWYER March 23, 2021 I spent a total of 30 minutes on the date of the service which included preparing to see the patient, [id number] patient care, completing clinical documentation, obtaining and/or reviewing separately obta (more content not included)...[facility]11-29-2019 History of Past illness Narrative* Problem [...] of this encounter (statuses as of 02/21/2022) [facility] History of Past illness Narrative* [...] of this encounter (statuses as of 02/27/2022) [facility] History of Past illness Narrative* [...] of this encounter (statuses as of 03/02/2022) [facility] History of Past illness Narrative* [...] of this encounter (statuses as of 03/13/2022) [facility] Center[facility] Plan note No data available for this section [facility] evaluation + Plan note Future Appointments Appointment Date:10/06/2024 08:45:00 AM Scheduled Provider:Jenaro HANSEN MD Location:[facility] Appointment Type:URO Office Visit Diagnostic Tests Pending * PSA Total 04/14/24 [facility] evaluation + Plan note Future Appointments Appointment Date:04/20/2025 08:45:00 AM Scheduled Provider:Jenaro HANSEN MD Location:[facility] Appointment Type:URO Office Visit [facility] Evaluation + Plan note Future Appointments Appointment Date:04/20/2025 08:45:00 AM Scheduled Provider:Jenaro HANSEN MD Location:[facility] Appointment Type:URO Office Visit Diagnostic Tests Pending * Creatinine 10/16/24 * BUN 10/16/24 [facility] evaluation + Plan note Future Appointments Appointment Date:04/20/2025 08:45:00 AM Scheduled Provider:Jenaro HANSEN MD Location:[facility] Appointment Type:URO Office Visit Diagnostic Tests Pending * Urine Cytology ([facility]) 10/16/24 [facility] evaluation note* Diagnosis Obstruction of central line, initial encounter (HCC) documented in this encounter [facility] note* Diagnosis Obstruction of central line, initial encounter (HCC)- Primary Follicular lymphoma, unspecified follicular lymphoma type, unspecified body region (HCC) documented in this encounter [facility] note* Diagnosis Non-Hodgkin's lymphoma, unspecified body region, unspecified non-Hodgkin lymphoma type (HCC)- Primary documented in this encounter [facility] noteNo InformationNoray [facility] memorial hospital [employer] Other evaluation note* Diagnosis Onset Date Resolution Status Chronic venous insufficiency acute Diabetes mellitus with hyperglycemia acute Hyperlipidemia, mixed acute Pernicious anemia acute Primary hypertension acute Type 2 diabetes mellitus with diabetic polyneuropathy [facility] Work Phone: evaluation noteNo assessment information available [facility] Work Phone: evalufnsxf note* Diagnosis Onset Date Resolution Status Herpes zoster acute Type 2 diabetes mellitus with hyperglycemia acute Chronic venous insufficiency acute Hyperlipidemia, mixed acute Pernicious anemia acute Primary hypertension acute 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 Type 2 diabetes mellitus with hyperglycemia acute [facility] Work Phone: evaluation note* Diagnosis Onset Date Resolution Status Chronic venous insufficiency acute Hyperlipidemia, mixed acute Pernicious anemia acute Primary hypertension acute 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 Type 2 diabetes mellitus with hyperglycemia acute [facility] Work Phone: Evaluation note* Diagnosis Melanocytic [...] diabetes mellitus with hyperglycemia acute [facility] Work Phone: Evaluation note* Diagnosis Onset [...] kidney disease acute October 29, 2024 9:07am [facility] Work Phone: History general Narrative - Reported* Type Description Date Surgical History Problem Title : COLONOSCOPY (28 378), Problem Status : Active, Surgical History Problem Title : DAREN ERTOE REPAIR ([id number]), Problem Comment : left 2nd toe, Problem Status : Active, Surgical History Problem Title : Knee arthroscopy, Problem Comment : multiple 2484-9925, Problem Status : Inactive, Surgical History Problem Title : OSTE CTOMY OF TARSAL COALITION OF LEFT FOOT (46916), Problem Status : Active, Surgical History Problem [...] Foot Ulcer 09/2108, Problem Status : Active, [facility] Other [facility] general Narrative - Reported* Type Description Date [...] assessment-Balance score summary, Problem Comment : Sitting balance~1/^Arises~2/2^Attempts to arise~2/2^Immediate standing balance~2/2^Standing balance~06/04^Nudged~2/2^Eyes closed~06/04^360 degree turn~06/04^Sitting down~2/2, Problem Status : Active,, Medical History Problem Title : Fall assessment-Gait score, Problem Description : Fall assessment-Gait score, Problem Comment : 05/15, Problem Status : Active,, Medical History Problem Title : Fall assessment-Gait score summary, Problem Description : Fall assessment-Gait score summary, Problem Comment : Initiation of gait~06/04^Step length-left~06/04^Step height-left~06/04^Step length-right~06/04^Step height-right~06/04^Step symmetry~06/04^Step continuity~06/04^Path~2/2^Trunk~2/2^Walking stance~06/04, Problem Status [...] : Active,, Medical History Problem Title : [facility] Annual Wellness Exam, Problem Description : Medicare Annual Wellness Exam, Problem Comment : [id number], Problem Status : Active,, Medical History Problem Title : [facility] Part B,CMOD Checklist #1, Problem Description : [...] ski Surgical History Problem Title : COLONOSCOPY (01 378), Problem Status : Active, Surgical History Problem Title : DAREN ERTOE REPAIR ([id number]), Problem Comment : left 2nd toe, Problem Status : Active, Surgical History Problem Title : Knee arthroscopy, Problem Comment : multiple 4095-2551, Problem Status : Inactive, Surgical History Problem Title : OSTE CTOMY OF TARSAL COALITION OF LEFT FOOT (32269), Problem Status : Active, Surgical History Problem Title : past surgical history reviewed, Problem Description : past surgical history reviewed, Problem Comment : reviewed - no changes required, Problem Status : Inactive, Surgical History Problem Title : Rese ction of Large Bowel, Problem Status : Inactive, Surgical History 2: 2005, 2008, 2010 EGD 2008, 2010 Bowel Resection 2008 ERCP 2012 Left Foot Surgery 2011 Cystoscopy/TURP 2012 Left [...] Foot Ulcer 09/2108, Problem Status : Active, [facility] Other History general Narrative - Reported* Type [...] left 2nd toe Surgical History Knee arthroscopy 0265-0842 Surgical History OSTECTOMY OF TARSAL COALITION O F LEFT FOOT Surgical History Resection of Large Bowel Surgical History Debridement Left Foot Ulcer 2018 Hospitalization History see surgical history [facility] Other Hospital Discharge instructions Additional Instructions 1. Sleep on 2 pillows 2. Small amount of Vaseline to sutures twice daily 3. You may shower late tomorrow afternoon, soap and water okay on wound 4. Tylenol or Motrin for discomfort 5 take antibiotic as prescribed 6. 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 Advance Directive(s) 09/10/2009 10:04 PM [...] 2:29pm Chief Complaint Admit Date RENAL CKD 4 May 05, 2024 2 [...] 2:34pm Chief Complaint Admit Date RENAL CKD 4 May 05, 2024 2 [...] 2:29pm Anemia of renal disease July 21, 025 2:34pm CKD (chronic kidney disease) stage [...] 2024 8:13am Post herpetic neuralgia July 30, 2 025 8:13am Primary hypertension July 30, 2024 [...] B12 shot January 02, 2025 1:3 6pm RENAL 3 MONTH F/U January 26, 2025 1: 30pm Reason for Visit Admit Date Anemia of [...] mellitus wit h diabetic chronic kidney disease October 29, 2024 9:07am Chronic [...] with hyperglyce susie November 28, 2024 8:04am Anemia of renal disease January 26 1:30pm CKD (chronic kidney disease) stage 4, GF R 15-29 ml/min January 26, 2025 1:30pm Hyperkalemia January 26, 2025 1: 30pm Hyperlipidemia, mixed January 26, 2025 1:30pm Hypertensive chronic kidney disease with stage 1 through stage 4 chronic ki January 26, 2025 1:30pm Hypomagnesemia January 26, 2025 1: 30pm Secondary hyperparathyroidism January 1:30pm Type 2 diabetes mellitus wit h diabetic chronic kidney disease January 26, 2025 1:30pm Chief Complaint Admit Date 4 month f/u November 28, 2024 8:04 am B12 shot January 02, 2025 1:3 6pm RENAL 3 MONTH F/U January 26, 2025 1: 30pm B12 Shot February 05, 2025 11:06am Reason for Visit Admit Date Chronic kidney disease November 28, 2024 8 [...] with hyperglyce susie November 28, 2024 8:04am Anemia of renal disease January 26 1:30pm CKD (chronic kidney disease) stage 4, GF R 15-29 ml/min January 26, 2025 1:30pm Hyperkalemia January 26, 2025 1: 30pm Hyperlipidemia, mixed January 26, 2025 1:30pm Hypertensive chronic kidney disease with stage 1 through stage 4 chronic ki January 26, 2025 1:30pm Hypomagnesemia January 26, 2025 1: 30pm Secondary hyperparathyroidism January 1:30pm Type 2 diabetes mellitus wit h diabetic chronic kidney disease January 26, 2025 1:30pm Chief Complaint Admit Date B12 shot January 02, 2025 1:3 6pm RENAL 3 MONTH F/U January 26, 2025 1: 30pm B12 Shot February 05, 2025 11:06am B12 Shot March 20, 2025 2 :17pm Reason for Visit Admit Date Anemia of renal disease January 26 1:30pm CKD (chronic kidney disease) stage 4, GF R 15-29 ml/min January 26, 2025 1:30pm Hyperkalemia January 26, 2025 1: 30pm Hyperlipidemia, mixed January 26, 2025 1:30pm Hypertensive chronic kidney disease with stage 1 through stage 4 chronic ki January 26, 2025 1:30pm Hypomagnesemia January 26, 2025 1: 30pm Secondary hyperparathyroidism January 1:30pm Type 2 diabetes mellitus wit h diabetic chronic kidney disease January 26, 2025 1:30pm Additional Source Comments Source Comments (unrecognize d section and content) In the event this informatio n is protected by the Federal Confidentiality of Alcohol and Drug Abuse Patient Records regulations: The Federal rules restrict any use of the information to criminally investigate or prosecute any alcohol or drug abuse patient.[facility] CenterIn the event this information is protected by the Federal Confidentiality of Alcohol and Drug Abuse Patient Records regulations: The Federal rules restrict any use of the information to criminally investigate or prosecute any alcohol or drug abuse patient.[facility] CenterIn the event this information is protected by the Federal Confidentiality of Alcohol and Drug Abuse Patient Records regulations: The Federal rules restrict any use of the information to criminally investigate or prosecute any alcohol or drug abuse patient.[facility] CenterIn the event this information is protected by the Federal Confidentiality of Alcohol and Drug Abuse Patient Records regulations: The Federal rules restrict any use of the information to criminally investigate or prosecute any alcohol or drug abuse patient.[facility] Reason for Visit (unrecogniz ed [...] January 02, 2025 End: January 02, 2025 Team Status: Active Member Role Status Freddy Chang DO Primary Care Provider Active Start: January 19, 2025 Vaishali Howell MD Attending Provider Active Start : January 19, 2025 Team Status: Inactive Member Role Status Freddy Chang DO Primary Care Provider Active Start: January 26, 2025 End: January 26, 2025 Vaishali Howell MD Attending Provider Active Start : January 26, 2025 End: January 26, 2025 Team Status: Active Member Role Status Freddy [...] November 28, 2023 End: November 28, 2023 Intercell Connector Placer Relationship Specialty Start Date End Date Gerry Chang DO [address] [place] [address] PCP - General 09/07/09 [employer] Connector Placer Relationship Specialty Start Date End Date Gerry Chang, DO [address] [place] [address] PCP - General 09/07/09 [employer]cell Connector Placer Relationship Specialty Start Date End Date Gerry Chang, DO [address] [place] [address] PCP - General 09/07/09 [employer]cell Connector Placer Relationship Specialty Start Date End Date Gerry Chang, DO [address] [place] [address] PCP - General 09/07/09 Team Status: Active [...] Team Status: Active Member Role Status Freddy Chnag DO Primary Care Provide r, Attending Provider Active Start: December 19, 2023 Team Status: Inactive Member Role Status Freddy Chang DO Primary Care Provide r, Attending Provider Active Start: December 31, 2023 End: December 31, 2023 Team Status: Inactive Member Role Status Dates Gerry Chang DO Primary Care Provide r, Attending Provider Active Start: February 05, 2024 End: February 05, 2024 [employer] Connector Placer Relationship Specialty Start Date End Date Gerry Chang MD PCP - General Internal Medicine 08/04/23 Talib Gant MD [address] [place] [address] Referring Physician Dermatology 10/31/23 Gerry Nelson DO [address] [place] [address] Otolaryngology 10/31/23 [employer] Connector Placer Relationship Specialty Start Date End Date Gerry Chang MD PCP - General Internal Medicine 08/04/23 Talib Gant MD [address] [place] [address] Referring Physician Dermatology 10/31/23 Gerry Nelson DO [address] [place] [address] Otolaryngology 10/31/23 Team Status: Inactive Member Role [...] Chang DO Primary Care Provider Active Start: February 05, 2025 End: February 05, 2025 Gerry Chang DO Attending Provider Active Sta rt: February 05, 2025 End: February 05, 2025 Team Status: Active Member Role/Relationship Status Freddy Chang DO Primary Care Provider Active Team Status: Inactive Member Role/Relationship Status Dates Gerry Chang DO Primary Care Provider Active Start: January 02, 2025 End: January 02, 2025 Gerry Chang DO Attending Provider Active Sta rt: January 02, 2025 End: January 02, 2025 Team Status: Active Member Role/Relationship Status Dates Gerry Chang DO Primary Care Provider Active Start: January 19, 2025 Vaishali Howell MD Attending Provider Active Start : January 19, 2025 Team Status: Inactive Member Role/Relationship Status Dates Gerry Chang DO Primary Care Provider Active Start: January 26, 2025 End: January 26, 2025 Vaishali Howell MD Attending Provider Active Start : January 26, 2025 End: January 26, 2025 Team Status: Inactive Member Role/Relationship Status Freddy Chang DO Primary Care Provider Active Start: February 05, 2025 End: February 05, 2025 Gerry Chang DO Attending Provider Active Sta rt: February 05, 2025 End: February 05, 2025 Team Status: Inactive Member Role/Relationship Status Dates Gerry Chang DO Primary Care Provider Active Start: March 20, 2025 End: March 20, 2025 Gerry Chang DO Attending Provider Active Sta rt: March 20, 2025 End: March 20, 2025 (unrecognized sect ion and content) No Status Records FoundNo Status Records FoundNo Status Records FoundNo Status Records FoundNo Status Records FoundNo Status Records FoundNo Status Records Found INFORMATION SOURCE (unrecogn ized section and content) DATE CREATED AUTHOR 03/05/2022 [facility] DATE CREATED AUTHOR AUTHOR'S ORGANIZ ATION [facility]2022 [facility] DATE CREATED AUTHOR AUTHOR'S ORGANIZ ATION 09/10/2023 [facility] DATE CREATED AUTHOR AUTHOR'S ORGANIZ ATION 03/23/2024 [facility] dical [facility] DATE CREATED AUTHOR AUTHOR'S ORGANIZ ATION 11/14/[address] [facility] DATE CREATED AUTHOR AUTHOR'S ORGANIZ ATION 01/28/[address] [facility] DATE CREATED AUTHOR AUTHOR'S ORGANIZ ATION 01/29/2025 [facility] Goals (unrecognized section and content) [...] BE BASED ON THE PRIMARY CLINICAL RECORDS. [employer] provides no warranty or guarantee of the accuracy or completeness of information in this document.
--- NOTE | 2025-03-23 20:42 | ECG_ITS ---
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
--- NOTE | 2025-03-23 20:42 | CT_ITS ---
The [address] [address] Patient Name: EUGENIO CREWS MRN: [id number] date: 1945 Sex: M Assigned Patient Location: ER Current Patient Location: ER Accession/Order Number: [id number] Exam Date: 03/23/2025 22:10 Report Date: 03/23/2025 22:57 At the request of: JESUS CHAMPAGNE MD Procedure: CT abdomen pelvis wo con CT ABDOMEN AND PELVIS WITHOUT INTRAVENOUS CONTRAST: CLINICAL HISTORY: Possible bowel obstruction, pain COMPARISON: 10/31/2024 TECHNIQUE: Spiral images were obtained through the abdomen and pelvis without intravenous contrast. This CT exam was performed using one or more following dose reduction techniques: Automated exposure control, adjustment of the mA and/or kV according to patient size, or use of iterative reconstruction technique. FINDINGS: Lung Bases: [Minimal interstitial thickening and scarring.] Organs:Cholecystectomy. Otherwise the liver, spleen, adrenals, left kidney, unremarkable. Right-sided pelviectasis. Otherwise kidneys symmetric in size. There are pancreatic calcifications noted which can BE seen with chronic pancreatitis. GI: Dilated loops of small bowel with prominent air-fluid levels. Fecalized contents within the ileal loops right lower quadrant suggestive of delayed transit time. Congested mesentery involving the small bowel loops noted terminal ileum normal caliber/decompressed. Colonic loops are mostly decompressed. Distal colonic diverticulosis noted. Small fat-containing hernia ventral abdominal wall periumbilical region[ Pelvis:[Bladder collapsed. Prostate unremarkable.] Peritoneum/Retroperitoneum:Aortic vascular calcification. Aorta is not aneurysmal. Small amount of free fluid fluid. No free air.[ Abd wall/Bones:Multilevel degenerative change.[ CT/CT abdomen pelvis wo con IMPRESSION: Small bowel obstruction with transition point suspected within the right lower quadrant. Impression dictated by: Gio Nye M.D. 03/23/2025 10:57 PM Dictation Location: [place] [address] Electronically authenticated by: [id number] Y Date: 03/23/2025 22:57
--- NOTE | 2025-03-23 20:47 | ED.GENADUL1 ---
HPI HPI - General Adult General Chief complaint: Abdominal Pain Stated complaint: BOWEL BLOCKAGE Time Seen by Provider: 03/23/25 20:41 Source: patient Mode of arrival: Wheelchair Limitations: no limitations History of Present Illness HPI narrative: 79-year-old male presents to the emergency department for abdominal pain. He thinks he has a bowel obstruction. He had bowel resection in 2008 and states he has had 15 bowel obstructions since then. 2008 was the last time he had surgery. He has been nauseous and vomited. The pain is severe and continuous. Related Data Home Medications ?Medication ?Instructions ?Recorded ?Confirmed atorvastatin 10 mg tablet mg 03/23/25 blood sugar diagnostic (Contour 03/23/25 03/23/25 Next Test Strips) calcitriol 0.25 mcg capsule mcg 03/23/25 carvedilol 6.25 mg tablet mg 03/23/25 gabapentin 100 mg capsule mg 03/23/25 glimepiride 4 mg tablet mg 03/23/25 lisinopril 2.5 mg tablet mg 03/23/25 sitagliptin phosphate 25 mg tablet mg 03/23/25 (Januvia) Allergies Allergy/AdvReac Type Severity Reaction Status Date / Time ketorolac (From Toradol) Allergy uknown Verified 03/23/25 19:42 piperacillin (From Zosyn) Allergy turns Verified 03/23/25 19:41 purple tazobactam (From Zosyn) Allergy turns Verified 03/23/25 19:41 purple Opioid HPI Opioid Management Most Recent Opioid Data: Last Pain Scale 7 Today, 22:52 Last MAR Pain Assessment Today, 21:11 Review of Systems ROS Narrative A ten point review of systems is negative except as noted above. Exam Narrative Exam Narrative: Nurses note and vital signs reviewed General:The patient appears uncomfortable Skin:Warm, dry, no pallor noted.There is no rash noted. Head:Normocephalic, atraumatic Eye: Normal conjunctiva, no drainage Ears, Nose, Mouth, and Throat: oral mucosa is moist. Nares patent. Cardiovascular:Regular Rate and Rhythm Respiratory:Patient is in no distress, no accessory muscle use, lungs are clear to auscultation, no wheezing, rales or rhonchi Back:non-tender GI: Mildly distended. Hyperactive bowel sounds present Musculoskeletal: The patient has no evidence of calf tenderness, no pitting edema, symmetrical pulses noted bilaterally Neurological:A&O, normal speech Psychiatric:Cooperative Constitutional Vital Signs, click to edit/add: Last Vital Signs Temp 97.9 F 03/23/25 19:38 Pulse 81 03/23/25 19:38 Resp 18 03/23/25 19:38 BP 165/101 H 03/23/25 19:38 Pulse Ox 98 03/23/25 19:38 O2 Del Method Room Air 03/23/25 19:38 Course Vital Signs Vital signs: Vital Signs Temperature 97.9 F 03/23/25 19:38 Pulse Rate 81 03/23/25 19:38 Respiratory Rate 18 03/23/25 19:38 Blood Pressure 165/101 H 03/23/25 19:38 Pulse Oximetry 98 03/23/25 19:38 Oxygen Delivery Method Room Air 03/23/25 19:38 Temperature 97.9 F 03/23/25 19:38 Pulse Rate 81 03/23/25 19:38 Respiratory Rate 18 03/23/25 19:38 Blood Pressure 165/101 H 03/23/25 19:38 Pulse Oximetry 98 03/23/25 19:38 Oxygen Delivery Method Room Air 03/23/25 19:38 Medical Decision Making MDM Narrative Medical decision making narrative: Small bowel obstruction is identified on the CAT scan per radiologist. NG tube is ordered and the patient was given pain medication. I have spoken to Dr. Peña, general surgeon at [facility], as well as Dr. Walker, hospitalist and they accept the patient. The patient is agreeable and stable for transfer and findings were discussed thoroughly with the patient and his family. Differential Diagnosis Differential Diagnosis: Small bowel obstruction, constipation, nonspecific abdominal pain Lab Data Lab results reviewed: Yes I reviewed the patient's lab results Labs: Lab Results 03/23/25 03/23/25 03/23/25 Range/Units 20:30 20:40 22:10 WBC 12.1 H (4.0-11.0) 10^3/uL RBC 4.03 L (4.70-6.10) 10^6/uL Hgb 13.3 L (14.0-18.0) g/dL Hct 38.3 L (42.0-54.0) % MCV 95.0 H (80.0-94.0) fL MCH 33.0 (25.9-34.0) pg MCHC 34.7 (29.9-35.2) g/dL RDW 12.1 (11.0-15.0) % Plt Count 178 (150-450) 10^3/uL MPV 9.2 L (9.5-13.5) fL Neut % (Auto) 83.5 H (43.0-75.0) % Lymph % (Auto) 8.1 L (20.5-60.0) % Cloud % (Auto) 6.5 (1.7-12.0) % Eos % (Auto) 1.1 (0.9-7.0) % Baso % (Auto) 0.3 (0.2-2.0) % Neut # (Auto) 10.1 H (1.4-6.5) 10^3/uL Lymph # (Auto) 1.0 L (1.2-3.8) 10^3/uL Cloud # (Auto) 0.8 (0.3-0.8) 10^3/uL Eos # (Auto) 0.1 (0.0-0.7) 10^3/uL Baso # (Auto) 0.0 (0.0-0.1) 10^3/uL Abs Immat Gran (auto) 0.06 H (0.00-0.03) 10^3/uL Imm/Tot Granulo (auto) 0.5 (0.0-0.5) % Sodium 137 (136-145) mmol/L Potassium 4.9 (3.5-5.1) mmol/L Chloride 103 (98-107) mmol/L Carbon Dioxide 19.1 L (21.0-32.0) mmol/L Anion Gap 19.8 BUN 44.0 H (7.0-18.0) mg/dL Creatinine 3.39 H (0.70-1.30) mg/dL Est GFR ( Amer) 22 L (>=60 mL/min/1.73m^2) Est GFR (Non-Af Amer) 18 L (>=60 mL/min/1.73m^2) BUN/Creatinine Ratio 13.0 Glucose 157 H (74-106) mg/dL Calcium 9.2 (8.5-10.1) mg/dL Total Bilirubin 0.6 (0.2-1.0) mg/dL Direct Bilirubin 0.1 (0.0-0.2) mg/dL AST 11 L (15-37) U/L ALT 21 (16-63) U/L Alkaline Phosphatase 105 (46-116) U/L Troponin I High Sens 10.8 (4.0-76.1) pg/mL Total Protein 7.5 (6.4-8.2) g/dL Albumin 4.1 (3.4-5.0) g/dL Globulin 3.4 g/dL Albumin/Globulin Ratio 1.2 Amylase 24 L (25-115) U/L Lipase 18.0 (16.0-77.0) U/L Urine Color Lt. yellow (YELLOW) Urine Clarity Clear (CLEAR) Urine pH 5.5 (5.0-9.0) Ur Specific [place] 1.020 (1.005-1.025) Urine Protein 100 A (NEG/TRACE) mg/dL Urine Glucose (UA) 250 A (NEGATIVE) mg/dL Urine Ketones Trace A (NEGATIVE) mg/dL Urine Occult Blood Trace-i (NEGATIVE) Urine Nitrite Negative (NEGATIVE) Urine Bilirubin Negative (NEGATIVE) Urine Urobilinogen 0.2 (0.2-1.0) EU/dL Ur Leukocyte Esterase Negative (NEGATIVE) Urine RBC 0-2 (0-2) #/HPF Urine WBC 5-10 A (NONE SEEN) #/HPF Ur Squamous Epith Cells None seen (NONE/RARE) #/LPF Ur Transition Epith Cell Rare A (NONE SEEN) #/LPF Urine Crystals None seen (None Seen) #/HPF Urine Bacteria None seen (NONE SEEN) #/HPF Urine Casts Seen A (NONE SEEN) #/LPF Coarse Granular Casts Few Urine Mucus None seen (NONE SEEN) Ur Culture Indicated? Yes-[facility] POC Glucose 143 H (74-106) mg/dL Imaging Data CT scan - abdomen: Radiologist's impression: ITS Impressions Abdomen/Pelvis CT 03/23/25 20:42 IMPRESSION: Small bowel obstruction with transition point suspected within the right lower quadrant. Impression dictated by: Gio Nye M.D. 03/23/2025 10:57 PM Dictation Location: [place] [address] Electronically authenticated by: [id number] Y Date: 03/23/2025 22:57 ECG Data Attestation: I personally reviewed and interpreted this ECG as follows: (EKG on my interpretation shows sinus rhythm with rate of 75 and a first-degree block.) Discharge Plan Discharge Chief Complaint: Abdominal Pain Clinical Impression: Small bowel obstruction Patient Disposition: [facility] Time of Disposition Decision: 23:45 Discharge Location: [facility] [place] Condition: Fair Mode of Transportation: EMS
[2025-03-23] MEDS: MORPHINE SULFATE 4 MG/ML VIAL IV ×2 (21:11→22:52)
[2025-03-23] MEDS: DIAZEPAM 10 MG/2 ML SYRINGE 2.5 MG IV (21:12)
[2025-03-23 21:40] LABS: Hematocrit 38.3 % (42.0-54.0); Hemoglobin 13.3 g/dL (14.0-18.0); Immature Granulocytes Abs Auto 0.06 10^3/uL (0.00-0.03); Immature Granulocytes Pct Auto 0.5 % (0.0-0.5); Lymphocytes Absolute Auto 1.0 10^3/uL (1.2-3.8); Mean Corpuscular HGB Conc 34.7 g/dL (29.9-35.2); Mean Corpuscular Hemoglobin 33.0 pg (25.9-34.0); Mean Corpuscular Volume 95.0 fL (80.0-94.0); Platelet Count 178 10^3/uL (150-450); Red Blood Count 4.03 10^6/uL (4.70-6.10); White Blood Count 12.1 10^3/uL (4.0-11.0)
[2025-03-23 21:59] LABS: Alanine Aminotransferase 21 U/L (16-63); Albumin Globulin Ratio 1.2; Albumin Level 4.1 g/dL (3.4-5.0); Alkaline Phosphatase 105 U/L (46-116); Anion Gap 19.8; Aspartate Amino Transferase 11 U/L (15-37); Blood Urea Nitrogen 44.0 mg/dL (7.0-18.0); Calcium 9.2 mg/dL (8.5-10.1); Carbon Dioxide 19.1 mmol/L (21.0-32.0); Chloride 103 mmol/L (98-107); Estimated GFR (African America 22 (>=60 mL/min/1.73m^2); Estimated GFR (Non-African Ame 18 (>=60 mL/min/1.73m^2); Globulin 3.4 g/dL; Glucose 157 mg/dL (74-106); Potassium 4.9 mmol/L (3.5-5.1); Sodium 137 mmol/L (136-145); Total Protein 7.5 g/dL (6.4-8.2)
[2025-03-23 22:01] LABS: Amylase 24 U/L (25-115); Lipase 18.0 U/L (16.0-77.0)
[2025-03-23 22:17] LABS: Glucose Urine UA 250 mg/dL (NEGATIVE)
[2025-03-23 22:25] LABS: Cast Seen? SEEN #/LPF (NONE SEEN); Crystals Seen? None Seen #/HPF (None Seen); Urine Culture Indicated YES-FRMC
[2025-03-23] MEDS: 0.9 % SODIUM CHLORIDE 1,000 ML 125 ML IV (22:55)
[2025-03-24] VITALS (9 sets, daily range): BP systolic 168; BP diastolic 87; PULSE 78; TEMP 36.8; O2SAT 98–100
--- NOTE | 2025-03-24 01:05 | PC.NURSE ---
# 16 Fr NG placed to the L nare at 50 cm x 1 attempt. Air bolus heard over epigastrium. Aspirations of green fluid
[2025-03-24] MEDS: MORPHINE SULFATE 4 MG/ML VIAL IV (01:32)
== END 2025-03-24 02:20 | disposition short-term general hospital (02) ==
PROVIDERS: Emergency Provider Emergency Medicine; PCP Internal Medicine
DX: K56.609 Unspecified intestinal obstruction, unspecified as to partial versus complete obstruction (principal); Z90.49 Acquired absence of other specified parts of digestive tract
CPT/HCPCS: 36415; 74176; 80048; 80076; 81001; 82150; 83690; 84484; 85025; 87086; 93005; 96361; 96374; 96375; 96376; 99285; J2270; J2405; J3360

== ENCOUNTER 2025-04-06 08:24 | Outpatient (OUT) | payer MEDICARE, SELFPAY ==
--- OUTSIDE RECORDS SUMMARY | 2016-01-05 06:13 | XMS_ITS | Continuity of Care Document ---
Author Organization [facility] Address [address] [facility] [employer] [facility] [address] [place] [id number] Phone Care Team Providers Care Rn Clinical Review Name Role Phone Marin DOYLE, Shawn MINER Unavailable Unavailab le Procedures Procedure Date INITIAL HOSPITAL CARE HOSPITAL DISCHARGE DAY Advance Directives Directive Yes / No Effective Date File Name No Information Encounters Encounter Description Practice Location Reason(s) For Visit Diagnoses Date Provider Providers Copied on Encounter INITIAL HOSPITAL CARE [facility], [address], [id number], tel:[phone] [facility] Inpatient No Information 6 Marin Escobar. [address], [place], [facility], . tel:[phone] HOSPITAL DISCHARGE DAY [facility], [address], [id number], tel:[phone] [facility] Inpatient No Information 6 Raul Cottrell. [address], [address], [place], [id number], [place]. tel:[phone] Family History Family Member Type Diagnosis Age At Onset No Information Payers Payer name Insurance type Covered constitution party ID Authoriza tirylan(s) [employer] Medicare MB [id number] [facility] Supplement CI [id number] Social History Type Description Quantity Date Captured Comments Sex Male Smoking Status No Information Chief Complaint And Reason For Visit No Information Reason For Referral Reason For Referral No Information History Of Present Illness Encounter Date Complaint History Of Prese nt Illness No Information Functional Status Date Functional Assessmen t No Information Instructions Date Instruction Additional Infor mation No Information Assessments Type Assessment Date No Information Patient Care Teams Name Effective Dates (start - stop) Status Members No Information
--- OUTSIDE RECORDS SUMMARY | 2025-04-02 07:35 | XMS_ITS | Encounter Summary ---
Author Organization [facility] Address [address] [place] [address] Care Team Providers Care Summer School Coordinator Name Role Phone Gerry Barton DO Primary Care Provider [phone] Destiny Gant MD Unavailable [phone] Gerry Nelson DO Unavailable [phone] Reason for Visit * ReasonCommentsSkin Check Encounter Details DateTypeDepartmentCare Team (Latest Contact Info)Wfiqkvcjlnt36/30/2025 8:35 AM EDTOffice Visit [facility] [address] [facility] [address] [place] [address] Melody Manzano APRN-CNP [address] [facility] [address] [place] [address] Actinic keratosis; Seborrheic keratosis; Melanocytic [...] InformationValueDate RecordedSex Assigned at BirthNot on fileLegal BhhGrad1208/16/2022 7:34 PM EDTGender IdentityNot on file Sexual [...] limited to risks of scarring, darker or refrigeration technician pigmentary changes, recurrence, incomplete removal and infection. [...] x 0.9 cm Left tip of Nose [place] papule - Lesion biopsy Type of biopsy: [...] Plan of Treatment DateTypeDepartmentCare Team (Latest Contact Info)Stbadjlbysg13/30/2026 8:35 AM EDTOffice Visit [facility] [address] [place] [phone] Melody Manzano APRN-CNP [address] [place] [address] NameTypePriorityAssociated DiagnosesOrder ScheduleDermatopathology examPathology and CytologyTimed Neoplasm of unspecified behavior of bone, soft tissue, and skin Release Upon Ordering for 1 Occurrences starting 04/02/2025documented as of this encounter Procedures Procedure NamePriorityDate/TimeAssociated DiagnosisCommentsSKIN / NAIL BIOPSY Gafufds4204/02/2025 8:27 AM EDT Neoplasm of unspecified behavior of bone, soft tissue, and skin SKIN / NAIL SUVJZQOrsslnb63/30/2025 8:26 AM EDT Neoplasm of unspecified behavior of bone, soft tissue, and skin CRYOTHERAPY SKIN CIQSTYJdrooqu15/30/2025 8:25 AM EDT Actinic keratosis documented in this encounter Results * Lesion [...] cc Authorizing ProviderResult TypeResult StatusNatalie A Felter POLITICAL ANTHROPOLOGIST-CNPDERM PROCEDURE ORDERABLESFinal Result * Lesion biopsy (04/02/2025 [...] used: 0.3 cc Authorizing ProviderResult TypeResult StatusNatalie Edward Felter POLITICAL ANTHROPOLOGIST-CNPDERM PROCEDURE ORDERABLESFinal Result * Cryotherapy, skin lesion (04/02/2025 8:25 AM EDT) Narrative Authorizing ProviderResult TypeResult StatusNatalie A Felter POLITICAL ANTHROPOLOGIST-CNPDERM PROCEDURE ORDERABLESFinal Result documented in this encounter Visit Diagnoses Diagnosis [...] DateEnd Date Gerry Barton DO [address] [place] [address] PCP - GeneralInternal Medicine3/2/24 Destiny Gant MD [address] [place] [address] Referring PhysicianDermatology10/31/23 Gerry Nelson DO [address] [place] [address] Otolaryngology10/31/23documented as of this encounter
--- OUTSIDE RECORDS SUMMARY | 2025-04-03 04:11 | XMS_ITS | Continuity of Care Document ---
Author Organization [facility] Address [address] [place] [address] Phone Care Team Providers Care Primary Teaching Assistant Name Role Phone Gerry Barton DO Primary Care Provider Lyn Howell Attending Provider Gerry Barton DO Attending Provider Guillermo Masterson DO Attending Provider Moise Walker MD Admit Provider Bryon Aguilar MD Attending Provider Cynthia Dasilva CMA Attending Provider [facility] Care Teams Patient Care Team Team Status: Active Member Role/Relationship Status Dates Gerry Barton DO Primary Care Provider Active Visit Care Team Team Status: Active Member Role/Relationship Status Dates Gerry Barton DO Primary Care Provider Active Start: January 19, 2025 Joseline Perez ProviderActiveStart: January 19, 2025 Visit Care Team Team Status: Inactive Member Role/Relationship Status Dates Gerry Barton DO Primary Care Provider Active Start: January 26, 2025 End: January 26Joseline Mcdermott ProviderActiveStart: January 26, 2025 End: January 26, 2025 Visit Care Team Team Status: Inactive Member Role/Relationship Status Dates Gerry Barton DO Primary Care Provider Active Start: February 05, 2025 End: February 05paco Barton DOAttending ProviderActiveStart: February 05, 2025 End: February 05, 2025 Visit Care Team Team Status: Inactive Member Role/Relationship Status Dates Gerry Barton DO Primary Care Provider Active Start: March 20, 2025 End: March 20paco Barton DOAttending ProviderActiveStart: March 20, 2025 End: March 20, 2025 Visit Care Team Team Status: Active Member Role/Relationship Status Dates Gerry Barton DO Primary Care Provider Active Start: March 23, 2025 Guillermo Masterson DOAttending ProviderActiveStart: March 23, 2025 Visit Care Team Team Status: Inactive Member Role/Relationship Status Dates Guillermo Masterson DO Attending Provider Active S tart: March 23, 2025 End: March 23, 2025 Visit Care Team Team Status: Inactive Member Role/Relationship Status Dates Gerry Barton DO Primary Care Provider Active Start: March 24, 2025 End: March 25, 2025Joseph Luna ProviderActiveStart: March 24, 2025 End: March 25ndhernan Aguilar MDAttvish ProviderActiveStart: March 24, 2025 End: March 25, 2025 Visit Care Team Team Status: Active Member Role/Relationship Status Dates Gerry Barton DO Primary Care Provider Active Start: March 25, 2025 Cynthia Dasilva CMAAttvish ProviderActiveStart: March 25, 2025 Patient Care Team Team Status: Inactive Member Role/Relationship Status Dates Gerry Barton DO Primary Care Provider Active Start: April 03, 2025 End: April 03enkamini Barton DOAttending ProviderActiveStart: April 03, 2025 End: April 03, 2025 Chief Complaint and Reason for Visit Chief Complaint Admit Date RENAL 3 MONTH F/U January 26, 2025 1: 30pm B12 Shot February 05, 2025 11:06am B12 Shot March 20, 2025 2 :17pm Unknown March 23, 2025 1 0:10pm SBO March 24, 2025 2 :52am Amb Documentation March 25, 2025 2 :18pm Wellness/[facility] f/u April 03, 2025 8 :08am Reason for Visit Admit Date Anemia of [...] chronic kidney disease January 26, 2025 1:30pm Leukocytosis March 24, 2025 2 :52am Small bowel obstruction March 24 2:52am UTI (urinary tract infection) March 242024 2:52am Chronic kidney disease April 03 8:08am Chronic venous insufficiency March 8:08am Elevated PSA April 03, 2025 8 :08am Hyperlipidemia, mixed April 03, 2025 8:08am Medicare annual wellness visit, subseque nt April 03, 2025 8:08am Microscopic hematuria April 03, 2025 8:08am Obesity April 03, 2025 8 :08am Pernicious anemia April 03, 2025 8 :08am Primary hypertension April 03, 2025 8:08am Renal cyst, acquired, right March 8:08am Type 2 diabetes mellitus with diabetic p olyneuropathy April 03, 2025 8:08am Type 2 diabetes mellitus with hyperglyce susie April 03, 2025 8:08am Reason for Referral Type Reason(s) Provider Provider Contact Information P emerson Address Start Date Post discharge follow upPost discharge follow upSujatha Ruff Phone: [phone] [facility] [id number] Allergies, Adverse Reactions, Alerts Allergen Type Severity Reaction Last Updated Verified Status Comments piperacillin Allergy Unknown Redness of Skin April 03, 2025 8:16am Yes Active turned purple ketorolac Allergy Unknown kidney issues April 03, 2025 8:16am Yes Active Social History Smoking Status Status Start Date End Date Date of Observa tion Never smoked tobacco (finding) March 24, 2025 5:30pm Observation Status Observation Response Date of Response Legal Sex Male (finding) Sex Assigned At BirthMaleJanuary 1945 Family History Relationship Condition Age at Onset Recorded Date/T diogo mother Heart disease Unknown History of heart surgeryUnknownType 2 diabetes mellitusUnknownsisterMalignant neoplasmUnknownMalignant neoplasm of lungUnknownsisterCerebrovascular accident (CVA)UnknownAtrial fibrillationUnknown Problems Active Problems Problem Diagnosis/Recorded Date Onset Date Status C omments Elevated PSA April 03, 2024 8:32pm Unknown Active Medicare annual wellness visit, subsequentOctober 2023 7:43amUnknownActive Screening PSA (prostate specific antigen)March 29, 2024 7:45amUnknownActive PSA: 2.93 - 02/2022, 2.64 - 03/2023, 5.63- 03/2024, 3.01 - 4Type 2 diabetes mellitus with diabetic chronic kidney diseaseDecember 2023 9:18amUnknown ActiveType 2 diabetes mellitus with hyperglycemiaMay 2023 6:23pmUnknown ActiveType 2 diabetes mellitus with diabetic polyneuropathyFebruary 2023 4:53pmUnknownActiveRenal cyst, acquired, rightJune 2024 7:12amUnknown ActiveCT: 5.8cm renal cyst - 10/2024Secondary hyperparathyroidismDecember 2023 9:18amUnknownActiveCKD (chronic kidney disease) stage 4, GFR 15-29 ml/min May 05, 2024 9:18amUnknownActivePernicious anemiaFebruary 2023 4:53pmUnknownActiveHypertensive chronic kidney disease with stage 1 through stage 4 chronic kidney disease, or unspecified chronic kidney diseaseDecember 2023 9:18amUnknownActiveHyperlipidemia, mixedFebruary 2023 4:53pm UnknownActiveMicroscopic hematuriaJune 2024 9:04amUnknownActiveChronic kidney diseaseOctober 2023 9:02amUnknownActivePrimary hypertensionFebruary 2023 4:53pmUnknownActiveChronic venous insufficiencyFebruary 2023 4:53pmUnknownActiveAnemia of renal diseaseDecember 2023 9:18amUnknownActive ObesityOctober 2023 7:44amUnknownActiveHyperkalemiaMay 2024 10:17am UnknownActiveHypomagnesemiaFebruary 2024 4:04pmUnknownActive Inactive/Resolved Problems Problem Diagnosis/Recorded Date Onset Date Status C omments UTI (urinary tract infection) March 24, 2025 3:32am Un known Resolved Herpes zosterMay 2023 6:23pmUnknownResolvedLeukocytosisOctober 2024 3:32amUnknownResolvedPost herpetic neuralgiaFebruary 2024 10:12amUnknown ResolvedSmall bowel obstructionOctober 2024 3:32amUnknownResolved Medications Medication Status Dose Units Route Directions Qty Days Refills S tart Date Stop Date End Date Reason(s) Instructions Adherence Lisinopril 2.5 mg tablet Discontinued 0 .ROUTE.ZMLAJLY877Iitig 2023 1:24pmApril 2024 2:56pmTAKE 1 TABLET BY MOUTH EVERY DAYAtorvastatin 10 mg tabletDiscontinued0.ROUTE.PAQNOVD569Xys 2023 1:21pmMay 2024 7:43amTAKE 1 TABLET BY MOUTH EVERY EVENINGValacyclovir 1 gram tnjjcgDtyeuzghxmjq1963WASOUbrav times cqdee3742Hha 2023 12:00amJune 2023 8:54amCarvedilol 6.25 mg tabletDiscontinued0.ROUTE.WMJSJFY2069Dvxv 2023 12:59pmMay 2024 7:23amTAKE 1 TABLET BY MOUTH TWICE A DAY Tramadol 50 mg yckbtdHomwvlgnneur63CLPEThyzp at ncvsdir559Chfl 13th, 2024 12:00amJune 2023 6:10pmHerpes zoster Zoster with other complicationsGlimepiride 4 mg tabletDiscontinued0.ROUTE .GOGGDMK9152Tkkf 2023 12:44pmJune 2024 5:13pmTAKE 2 TABLETS BY MOUTH EVERY MORNING 30 MINUTES PRIOR TO BREAKFASTTramadol 50 mg dpxpudTizqmtuilffp70BC POTwice poajl30978Qkut 2023 6:09pmJune 2023 4:25pmHerpes zoster Zoster with other complicationsTramadol 50 mg jvtohxNqktdvqxwiha15EPQYUzgra gnnqc78784Mghf 2023 4:25pmDecember 2023 3:51pmHerpes zoster Zoster with other complicationsLinagliptin (Tradjenta) 5 mg tabletDiscontinued0 .ROUTE.SAZSKUP4599Dtvasuwaw 2023 2:23pmOctober 2023 5:20pmTAKE 1 TABLET BY MOUTH EVERY DAYLinagliptin (Tradjenta) 5 mg tabletDiscontinued0.ROUTE .WBGMZZM7214Ivjgolm 2023 5:20pmFebruary 2024 10:21amTAKE 1 TABLET BY MOUTH EVERY DAYBlood Sugar Diagnostic (Contour Next Test Strips) strip Discontinued0.Orevo1290Krlkiud 2024 1:00amJanuary 2024 8:33amType 2 diabetes mellitus with hyperglycemia Type 2 diabetes mellitus with hyperglycemia snf (current) use of insulinUse to test home BS qdBlood Sugar Diagnostic (Contour Next Test Strips) stripDiscontinued0.ROUTE.PSGZFYI9383Ierehkh 2024 8:33amSeptember 2024 6:48pmType 2 diabetes mellitus with hyperglycemia Type 2 diabetes mellitus with hyperglycemia medical terminologist (current) use of insulinUSE TO TEST BLOOD SUGAR 3 TIMES A DAY *E11.65* Sitagliptin Phosphate (Januvia) 25 mg pvbefsNgbdgiidfxru62UBUIFggtf32876Pmspvukp 2024 1:00amSeptember 2024 4:35pmGabapentin 100 mg capsuleDiscontinued 256ODXGLgxcq62725Opwjv 2024 5:03pmSeptember 2024 8:37amTake in evening dailyLisinopril 2.5 mg tabletDiscontinued0.ROUTE.OMWMLHY755Fwkpn 2024 2:55pmAugust 2024 1:39pmTAKE 1 TABLET BY MOUTH EVERY DAYAtorvastatin 10 mg tabletActive0.ROUTE.NQVJMRM068Mls 2024 7:43amTAKE 1 TABLET BY MOUTH EVERY EVENINGComplies with 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Carvedilol 6.25 mg tabletDiscontinued0 .ROUTE.ZHZBCZS7979Dyk 2024 7:23amAugust 2024 1:39pmTAKE 1 TABLET BY MOUTH TWICE A DAYGlimepiride 4 mg tabletDiscontinued0.ROUTE.QOOIIJX5156Pugo 2024 5:12pmAugust 2024 1:39pmTAKE 2 TABLETS BY MOUTH EVERY MORNING 30 MINUTES PRIOR TO BREAKFASTCalcitriol 0.25 mcg capsuleDiscontinued0.ROUTE .WCHXTMX018Awwn 2024 10:27amAugu2024 1:39pmTAKE 1 CAPSLUE 3 TIMES A WEEK. ADMINISTER AFTER DIALYSIS ON DIALYSIS DAYSSitagliptin Phosphate (Januvia) 25 mg tabletActive0.ROUTE.IKFCFLL471Lfjwnowfe 1st, 2025 4:35pmTAKE 1 TABLET BY MOUTH EVERY DAYComplies with 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Gabapentin 100 mg capsule Active0.ROUTE.GLLATED934Uilxzjhlw 7th, 2025 8:37amTAKE 1 CAPSULE BY MOUTH EVERY EVENINGComplies with 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Blood Sugar Diagnostic (Contour Next Test Strips) stripActive0.ROUTE.IYTBWKK5023Lodvbrrwr 2024 6:47pmType 2 diabetes mellitus with hyperglycemia Type 2 diabetes mellitus with hyperglycemia medical terminologist (current) use of insulinUSE TO TEST BLOOD SUGAR 3 TIMES A DAYInsulin Detemir U-100 (Levemir Flexpen) 100 unit/mL (3 mL) insulin vgsWdgzbxmtsagd23BMFG SUBCUTDaily at bedtimeMarch 2023 12:00amOctober 2023 10:04amAspirin 81 mg tablet,delayed release (DR/EC)Zsmqae89ILYP4 Times a weekFebruary 2023 1:00amComplies with 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Atorvastatin 10 mg iykiaiFxfjhphglizf70LLEA Daily at bedtimeFebruary 2023 1:00amMay 2023 1:21pmCarvedilol 6.25 mg tabletDiscontinued6.25MGPOTwice dailyFebruary 2023 1:00amJune 2023 1:00pmGlimepiride 4 mg ftnfpbNjlrtenseorp9JQUNYtyow dailyFebruary 2023 1:00amJune 2023 12:44pmLisinopril 2.5 mg tabletDiscontinued2.5MGPO Daily at bedtimeFebruary 2023 1:00amApril 2023 1:24pmLinagliptin (Tradjenta) 5 mg wyjglgVyhitrfhntuz2KNLTVqqaw morningFebruary 2023 1:00am February 28, 2024 2:23pmMagnesium Aspart,Citrate,Oxide 400 mg magnesium capsuleDiscontinuedMGPOFebruary 2024 1:00amMay 2024 9:15amGabapentin 100 mg qizgsxcWxtqaujbelpt098XDZIVkbxe26836Nopbkigw 2024 1:00amMarch 2024 5:03pmTake in evening dailyMagnesium Aspart,Citrate,Oxide 400 mg magnesium hajekmqEsojgk166MAHHRpumhBfq 2024 9:15amComplies with 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 Carvedilol 6.25 mg tabletActive6.25MGPOTwice dailyHospital Corporation Of Americat 2024 1:37pm Complies with 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Glimepiride 4 mg anjqrnWtqufs1YHZOXszxk dailyHospital Corporation Of Americat 2024 1:38pmComplies with 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Lisinopril 2.5 mg tabletActive2.5MGPO DailyHospital Corporation Of Americat 2024 1:38pmComplies with 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Calcitriol 0.25 mcg capsuleActive0.38QPDEJ5 Times a weekHospital Corporation Of Americat 2024 1:39pmComplies with 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Insulin Glargine (Lantus Solostar U-100 Insulin) 100 unit/mL (3 mL) insulin ghuFbghwz1ABWPXRGpskm evening as needed for RBS > 1583668Gpkderv 2023 12:00amType 2 diabetes mellitus with hyperglycemia Type 2 diabetes mellitus with hyperglycemia8 units subcutaneously every evening PRN;Complies with 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Calcium Carbonate 600 mg calcium (1,500 mg) tablet Tatijy660XNNLZrppeGlntqucj 2023 1:00amComplies with 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Linagliptin (Tradjenta) 5 mg nuzpsdYmcrlxyelvte6GJGYLkszdXyykzxyf 2024 1:00amFebruary 2024 4:40pmCalcitriol 0.25 mcg capsuleDiscontinued0.01QVWXG2 Times a week 401February 2024 1:00amJuly 2024 10:28amadminister after dialysis on dialysis days Immunizations Immunization Event Date Not Given Reason Dose Number [employer] Lot Number Reason(s) Given Vaccine Information Statement (VIS) Detail Administration Location COVID-19 mRNA, Comirnaty (Pfizer) July 07, 2020 COVID-19 mRNA, Comirnaty (Pfizer)July 28OVID-19 ([employer]) 12Y and olderOctober , Tap, unspecifiedOctober , 2001DTap, unspecifiedJune , 2017influenza, unspecified formulationNovember 2014 influenza, unspecified formulationOctober , 2015influenza, unspecified formulationNovember , 2016influenza, unspecified formulationOctober , 2017influenza, unspecified formulationOctober , 2018influenza, unspecified formulationSeptember , 2020influenza, unspecified formulationSeptember , 2021influenza, unspecified formulationOctober , neumococcal Conjugate Vaccine, 13 valentNovember 2014Pneumococcal Polysacc. Vaccine, 23 valent March 16, 2014Tetanus, Diphtheria adult, 5 Lf pres free absOctober 2013 Procedures Procedure Date Performed Status XR abdomen min 2V March 24, 2025 8:17am comp leted XR abdomen min 2V March 25, 2025 5:00am comp leted Urine Culture March 23, 2025 completed Relevant Diagnostic Tests and/or Laboratory Data Laboratory Results Test Collection Date/Time Result Date/Time Result Interpretation Reference Range Result Comment Performing Site Parathyroi d Hormone (Intact) January 19, 2025 7:30am January 19, 2025 7:30am 160 pg/mL Abnormal (applies to non-numeric results) 15-65 Performed at: [address] [id number] b Director: Krael Kaye PhD, Phone: [phone] 25-Hydroxy Vitamin D TotalAugust 2024 7:302024 7:30am44.9 ng/mL<20 ng/mL Vit D -<30 ng/mL Vit D wugqhuocxcyu54-295 ng/mL Vit D sufficient>100 ng/mL Potential ToxicityFerritinA2024 7:302024 7:41ws409.0 ng/mL26.0-388.0Iron [facility]urationAulovel[facility]2024 7:30am January 19, 2025 7:30am26.6 %Magnesium LevelAulovelace rehabilitation hospitalt 2024 7:302024 7:30am1.9 mg/dL1.8-2.4Uric AcidAulovelace rehabilitation hospital2024 7:302024 7:30am5.0 mg/dL3.5-7.2Anion GapAulovelace rehabilitation hospital2024 7:302024 7:30am15.5HematocritAulovelace rehabilitation hospitalt 2024 7:302024 7:30am32.9 %Below low yxmjdk27.0-54.0Urine Other [facility]2024 8:15amNONE SEEN #/LPFNONE SEENUrine Random CreatinineAulovelace rehabilitation hospitalt 2024 8:152024 8:15am 161.73 mg/dL20.00-300.00LipaseOct2024 8:40pmMarch 23, 2025 8:40pm 18.0 U/L16.0-77.0Amylase LevelOct2024 8:40pmMarch 23, 2025 8:40pm 24 U/LBelow low eyhhrn78-978Qohatsiw I High SensitivityOct2024 8:40pm March 23, 2025 8:40pm10.8 pg/mL4.0-76.1CUT-OFF POINTS HAVE BEEN ESTABLISHED BASED ON THE FOURTHUNIVERSAL DEFINITION OF MYOCARDIAL INFARCTION. THE UPPERREFERENCE LIMIT (URL) OF TROPONIN, DEFINED THE 99THPERCENTILE OF cTnI DISTRIBUTION IN A REFERENCE POPULATION,HAS BEEN CONFIRMED THE DECISION THRESHOLD FOR MIDIAGNOSIS.99TH PERCENTILE = 76.2 PG/MLNOTE: HIGH-SENSITIVITY TROPONIN ASSAY IS NOT INTENDED TO BEUSED IN ISOLATION BUT SHOULD BE INTERPRETED IN CONJUNCTIONWITH OTHER DIAGNOSTIC AND CLINICAL INFORMATION.Anion GapOctober 2024 8:40pm19.8Albumin/Globulin RatioOct2024 8:40pm1.2Basophils # (Auto)March 23, 2025 8:40pmOct2024 8:40pm0.0 10 3/uL0.0-0.1 Urine Culture ReflexedOct2024 10:10pmYES-FRMCIron LevelAugust 2024 7:30amAugu2024 7:30am66.0 ug/dL65.0-175.0AlbuminAugust 2024 7:30amAugu2024 7:30am3.7 g/dL3.4-5.0HemoglobinAugust 2024 7:30am January 19, 2025 7:30am11.5 g/dLBelow low bcayfj59.0-18.0Urine Other Crystals January 19, 2025 8:15amNone Seen #/HPFNone SeenUrine Protein/Creatinine Ratio January 19, 2025 8:15amAugu2024 8:15am0.85BUN/Creatinine RatioOct2024 8:40pm13.0AlbuminOctober 2024 8:40pm4.1 g/dL3.4-5.0Basophils (%) (Auto)March 23, 2025 8:40pmOctober 2024 8:40pm0.3 %0.2-2.0Urine Other CastsOctober 2024 10:10pmSEEN #/LPFAbnormal (applies to non-numeric results)NONE SEENTotal Iron Binding CapacityAugust 2024 7:30amAugu2024 7:17nj896.0 ug/dLBelow low yzhccx604.0-450.0BUN/Creatinine RatioAugus2024 7:30amAugu2024 7:30am13.0Mean Corpuscular HemoglobinAugust 2024 7:30amAugust 2024 7:30am33.4 pg25.9-34.0Urine BacteriaAugust 2024 8:15amTRACE #/HPFAbnormal (applies to non-numeric results)NONE SEEN Urine Random Total ProteinAugust 2024 8:15amAugust 2024 8:52jp422.6 mg/dLAbove high normal<=11.9Blood Urea NitrogenOctober 2024 8:40pm44.0 mg/dLAbove high normal7.0-18.0Alkaline PhosphataseOctober 2024 8:42iw402 U/V68-797Ocupbwctboi # (Auto)March 23, 2025 8:40pmOctober 2024 8:40pm 0.1 10 3/uL0.0-0.7Urine Other CrystalsOctober 2024 10:10pmNone Seen #/HPF None SeenBlood Urea NitrogenAugust 2024 7:30amAugust 2024 7:30am44.0 mg/dLAbove high normal7.0-18.0Mean Corpuscular Hemoglobin ConcentAugust 2024 7:30amAugu2024 7:30am35.0 g/dL29.9-35.2Urine BilirubinAugust 2024 8:15amNEGATIVENEGATIVECalcium LevelOctober 2024 8:40pm9.2 mg/dL 8.5-10.1Alanine Aminotransferase (ALT/SGPT)March 23, 2025 8:40pm21 U/L16-63 Eosinophils (%) (Auto)March 23, 2025 8:40pmOctober 2024 8:40pm1.1 % 0.9-7.0Urine BacteriaOctober 2024 10:10pmNONE SEEN #/HPFNONE SEENCalcium LevelAugust 2024 7:30amAugust 2024 7:30am8.3 mg/dLBelow low normal 8.5-10.1Mean Corpuscular VolumeAugust 2024 7:30amAugust 2024 7:30am 95.6 fLAbove high orfyjh30.0-94.0Urine Occult BloodAugust 2024 8:15am TRACE-INEGATIVEChloride LevelOctober 2024 8:51up238 mmol/A21-925Keyvphfkf Amino Transf (AST/SGOT)March 23, 2025 8:40pm11 U/LBelow low -37 HematocritOctober 2024 8:40pmOctober 2024 8:40pm38.3 %Below low vpalfv38.0-54.0Urine BilirubinOctober 2024 10:10pmNEGATIVENEGATIVEChloride LevelAugust 2024 7:30amA2024 7:51id928 mmol/LAbove high normal 98-107Mean Platelet VolumeAugust 2024 7:30amA2024 7:30am8.7 fL Below low normal9.5-13.5Urine AppearanceAugust 2024 8:15amCLEARCLEARCarbon Dioxide LevelOctober 2024 8:40pm19.1 mmol/LBelow low .0-32.0Direct BilirubinOctober 2024 8:40pm0.1 mg/dL0.0-0.2HemoglobinOctober 2024 8:40pmOctober 2024 8:40pm13.3 g/dLBelow low mvmrqi11.0-18.0Urine Occult BloodOctober 2024 10:10pmTRACE-INEGATIVECarbon Dioxide LevelAugust 2024 7:30amAugust 2024 7:30am22.1 mmol/L21.0-32.0Platelet CountAugust 2024 7:30amA2024 7:46ul950 10 3/uLBelow low -112Gcavh ColorAugust 2024 8:15amLT. YELLOWYELLOWCreatinineOctober 2024 8:40pm 3.39 mg/dLAbove high normal0.70-1.30GlobulinOctober 2024 8:40pm3.4 g/dL Immature Granulocyte # (Auto)March 23, 2025 8:40pmOctober 2024 8:40pm 0.06 10 3/uLAbove high normal0.00-0.03Urine Coarse Granular CastsOctober 2024 10:10pmFEWCreatinineAugu2024 7:30amAugu2024 7:30am3.38 mg/dLAbove high normal0.70-1.30Red Blood CountAugust 2024 7:30amAugu2024 7:30am3.44 10 6/uLBelow low normal4.70-6.10Urine Glucose (UA)January 19, 2025 8:86bk866 mg/dLAbnormal (applies to non-numeric results)NEGATIVE Estimated GFR ()March 23, 2025 8:77ig54Mifzm low normal>=60 mL/min/1.73m 2Total BilirubinOct2024 8:40pm0.6 mg/dL0.2-1.0Immature Granulocyte % (Auto)March 23, 2025 8:40pmOctober 2024 8:40pm0.5 % 0.0-0.5Urine AppearanceOct2024 10:10pmCLEARCLEAREstimated GFR ()January 19, 2025 7:30amA2024 7:26on81Osgtp low normal>=60 mL/min/1.73m 2Red Cell Distribution WidthAugust 2024 7:30am January 19, 2025 7:30am12.6 %11.0-15.0Urine KetonesA2024 8:15am TRACE mg/dLAbnormal (applies to non-numeric results)NEGATIVEEstimated GFR (Non- AmericanOct2024 8:82rt57Lsoyf low normal>=60 mL/min/1.73m 2 Total ProteinOct2024 8:40pm7.5 g/dL6.4-8.2Lymphocytes # (Auto)March 23, 2025 8:40pmOctober 2024 8:40pm1.0 10 3/uLBelow low normal1.2-3.8 Urine ColorOctober 2024 10:10pmLT. YELLOWYELLOWEstimated GFR (Non- AmericanAugust 2024 7:30amA2024 7:61am59Zetex low normal>=60 mL/min/1.73m 2Corrected White Blood CountAugust 2024 7:30amAugu2024 7:30am5.7 10 3/uL4.0-11.0Urine Leukocyte EsteraseAugust 2024 8:15am TRACEAbnormal (applies to non-numeric results)NEGATIVEGlucose LevelOctober 2024 8:26al299 mg/dLAbove high dsqaiw11-081Dklnrgwdygx (%) (Auto)March 23, 2025 8:40pmOctober 2024 8:40pm8.1 %Below low ehsfjv35.5-60.0Urine Glucose (UA)March 23, 2025 10:86tw292 mg/dLAbnormal (applies to non-numeric results) NEGATIVEGlucose LevelAugust 2024 7:30amAugu2024 7:04se248 mg/dL Above high dpddly34-724Nzdio MucusAugust 2024 8:15amNONE SEENNONE SEEN Potassium LevelOctober 2024 8:40pm4.9 mmol/L3.5-5.1Mean Corpuscular HemoglobinOctober 2024 8:40pmOctober 2024 8:40pm33.0 pg25.9-34.0 Urine KetonesOctober 2024 10:10pmTRACE mg/dLAbnormal (applies to non- numeric results)NEGATIVEPotassium LevelAugust 2024 7:30amAugu2024 7:30am4.6 mmol/L3.5-5.1Urine NitriteAugust 2024 8:15amNEGATIVENEGATIVE Sodium LevelOctober 2024 8:63rz926 mmol/U528-483Ybap Corpuscular Hemoglobin ConcentOctober 2024 8:40pmOctober 2024 8:40pm34.7 g/dL 29.9-35.2Urine Leukocyte EsteraseOct2024 10:10pmNEGATIVENEGATIVE Sodium LevelAugust 2024 7:30amAugust 2024 7:34fs784 mmol/Q177-306 Urine pHAugust 2024 8:15am6.05.0-9.0Mean Corpuscular VolumeOct2024 8:40pmOctober 2024 8:40pm95.0 fLAbove high qsemjk09.0-94.0Urine Mucus March 23, 2025 10:10pmNONE SEENNONE SEENPhosphorus LevelAugust 2024 7:30amAugust 2024 7:30am3.6 mg/dL2.6-4.7Urine ProteinAugust 2024 8:76qo095 mg/dLAbnormal (applies to non-numeric results)NEG/TRACEMonocytes # (Auto)March 23, 2025 8:40pmOctober 2024 8:40pm0.8 10 3/uL0.3-0.8Urine NitriteOct2024 10:10pmNEGATIVENEGATIVEUrine RBCAugust 2024 8:40ah4-4 #/HPF0-2Monocytes (%) (Auto)March 23, 2025 8:40pmOctober 2024 8:40pm6.5 %1.7-12.0Urine pHOctober 2024 10:10pm5.55.0-9.0Urine Specific GravityAugust 2024 8:15am1.0251.005-1.025Mean Platelet Volume March 23, 2025 8:40pmOctober 2024 8:40pm9.2 fLBelow low normal9.5-13.5 Urine ProteinOctober 2024 10:96os740 mg/dLAbnormal (applies to non-numeric results)NEG/TRACEUrine Squamous Epithelial CellsAugust 2024 8:15amFEW #/LPFAbnormal (applies to non-numeric results)NONE/RARENeutrophils # (Auto) March 23, 2025 8:40pmOctober 2024 8:40pm10.1 10 3/uLAbove high normal 1.4-6.5Urine RBCOct2024 10:35hv2-2 #/HPF0-2Urine UrobilinogenAugust 2024 8:15am0.2 EU/dL0.2-1.0Neutrophils (%) (Auto)March 23, 2025 8:40pm March 23, 2025 8:40pm83.5 %Above high vufrbm70.0-75.0Urine Specific [place] March 23, 2025 10:10pm1.0201.005-1.025Urine WBCAugust 2024 8:08tj6-4 #/HPFAbnormal (applies to non-numeric results)NONE SEENPlatelet CountOct2024 8:40pmOct2024 8:76qk468 10 3/yP949-096Zwtml Squamous Epithelial CellsOct2024 10:10pmNONE SEEN #/LPFNONE/RARERed Blood CountOct2024 8:40pmOctober 2024 8:40pm4.03 10 6/uLBelow low normal4.70-6.10Urine Transitional Epithelial CellsOct2024 10:10pmRARE #/LPFAbnormal (applies to non-numeric results)NONE SEENRed Cell Distribution WidthOct2024 8:40pmOct2024 8:40pm12.1 %11.0-15.0Urine UrobilinogenOctober 2024 10:10pm0.2 EU/dL0.2-1.0Corrected White Blood CountOctober 2024 8:40pmOctober 2024 8:40pm12.1 10 3/uLAbove high normal4.0-11.0Urine WBCOctober 2024 10:21jh3-09 #/HPFAbnormal (applies to non-numeric results)NONE SEENCorrected White Blood CountOctober 2024 5:34amOctober 2024 6:10am7.1 10*3/uL4.1-10.5FVeterans Health Administration [id number] [address] [place] [address]Ehfewnkkulv WBC CountOctober 2024 5:34amOctober 2024 6:10am7.1 10*3/uL4.1-10.5FMercy [facility] [id number] [address] [facility] [address]Ovd Blood CountOctober 2024 5:34amOctober 2024 6:10am3.54 10*6/uLBelow low normal3.90-5.60[facility] [id number] [address] [facility] [address]OglorpgsuyUqhejuc 2024 5:34amOctober 2024 6:10am 11.8 g/dLBelow low ppnqiw68.0-17.0[facility] [id number] [address] [facility] [address]WrvnftpbcvLrdukyo 2024 5:34amOctober 2024 6:10am 33.7 %Below low abxmlg60.8-50.0[facility] [id number] [address] [facility] [id number] Corpuscular VolumeOctober 2024 5:34amOctober 2024 6:10am95.0 fL83.5-101[facility] [id number] 1111 [facility] [address]286Fzas Corpuscular HemoglobinOctober 2024 5:34amOctober 2024 6:10am33.3 pg27.5-35.2FMer[facility] [id number] 1111 [facility] [address]4861Gxxq Corpuscular Hemoglobin ConcentOctober 2024 5:34am October 2024 6:10am35.0 g/dL32.5-35.6FMercy [facility] [id number] 1111 [facility] [address]28Aue Cell Distribution WidthOctober 2024 5:34amOctober 2024 6:10am12.8 %12.0-14.8[facility] [id number] 1111 [facility] 70758Pwvxecej CountOctober 2024 5:34amOctober 2024 6:72wt550 10*3/uQ856-135[facility]fk[facility]bk[facility] [id number] 1111 [facility] [address]Vayc Platelet VolumeOctober 2024 5:34amOctober 2024 6:10am7.1 fL6.6-10.1FMercy [facility] [id number] 1111 [facility] 48396Zcsripcsbiw (%) (Auto)March 25, 2025 5:34amOctober 2024 6:10am76.6 %.[facility] [id number] 1111 [facility] [address]Suwdaeqatqx (%) (Auto)March 25, 2025 5:34amOctober 2024 6:10am12.4 %.[facility] [id number] 1111 [facility] 92805Qnxorjmdt (%) (Auto)March 25, 2025 5:34amOctober 2024 6:10am9.0 %.[facility] [id number] 1111 [facility] [address]2296Fwgofzjwzsi (%) (Auto)March 25, 2025 5:34amOctober 2024 6:10am1.8 %.[facility] [id number] 1111 [facility] 49761Qbztvihwd (%) (Auto)March 25, 2025 5:34amOctober 2024 6:10am0.2 %.[facility] [id number] 1111 [facility] [address]Fjojgpujl RBC Relative Count (auto)March 25, 2025 5:34am March 25, 2025 6:10am0.1 /100{WBC}0-0.5FMer[facility] [id number] 1111 [facility] [address]76[address]Xxalddydyyr # (Auto)March 25, 2025 5:34amOctober 2024 6:10am5.5 10*3/uL1.8-7.7FMer[facility] [id number] 1111 [facility] 16754Xvvtveizydf # (Auto)March 25, 2025 5:34amOctober 2024 6:10am0.9 10*3/uLBelow low normal1.00-4.8[facility] [id number] 1111 [facility] [address]Jgoxnyibb # (Auto)March 25, 2025 5:34amOctober 2024 6:10am0.6 10*3/uL0.0-0.8[facility] [id number] 1111 [facility] 280[address]Oexxgisjyuh # (Auto)March 25, 2025 5:34amOctober 2024 6:10am0.1 10*3/uL0.0-0.45[facility] [id number] 1111 [facility] 94[address]Jkzuejlao # (Auto)March 25, 2025 5:34amOctober 2024 6:10am0.0 10*3/uL0.0-0.2FMercy [facility] [id number] 1111 [facility] [address]85[address]Eopcoph LevelOctober 2024 5:34amOctober 2024 7:05am 116 mg/dLAbove high wksyop89-201Djmze: 216 on 03/24/25-0510ADA recommended reference rangeRandom Glucose Reference Range is dependent on time and content of last meal. Glucose of more than 200 mg/dL in a nonstressed, ambulatory subj ect supports the diagnosis of Diabetes Mellitus.[facility] [id number] 1111 [facility] 68158Mqgyz Urea NitrogenOctober 2024 5:34amOctober 2024 7:05am39 mg/dLAbove high normal7-25[facility] [id number] 1111 [facility] 84967HacdodqiocAvxjedr 2024 5:34amOctober 2024 7:05am 2.93 mg/dLAbove high normal0.70-1.30[facility] [id number] 1111 [facility] [address]53Vuvxmefdw GFR (CKD-EPI)March 25, 2025 5:34amOct2024 7:05am21.338 mL/MinMem[facility] [id number] 1111 [facility] 11469Byuzqm LevelOctober 2024 5:34amOctober 2024 7:05am 137 mmol/D668-855YlycewpcrMemorial Health System [facility] [id number] 1111 [facility] 24698Aibsbixag LevelOctober 2024 5:34amOctober 2024 7:05am4.5 mmol/L3.5-5.1FMercy [facility] [id number] 1111 [facility] 65808Lirhagit LevelOctober 2024 5:34amOctober 2024 7:09hm842 mmol/Z68-868DfrvmclorMemorial Health System [facility] [id number] 1111 [facility] 67640Idzkzu Dioxide LevelOctober 2024 5:34amOctober 2024 7:05am26.4 mmol/L21.0-31.0[facility] [id number] 1111 [facility] [address]Rahuw GapOct2024 5:34amOct2024 7:05am10.1 mEq/L6.0-15.0[facility] [id number] 1111 [facility] 16699Mnvwmut LevelOctober 2024 5:34amOct2024 7:05am 8.3 mg/dLBelow low normal8.6-10.3FMercy [facility] [id number] 1111 [facility] 96331Frbjydtp Creatinine Clearance (ChemOctober 2024 5:34am March 25, 2025 7:05am27.06[facility] [id number] 1111 [facility] 44752Gewaqxm GlucoseOctober 2024 11:56amOctober 2024 11:08bf374 mg/dLRandom Glucose Reference Range is dependent on time and content of last meal. Glucose of more than 200 mg/dL in a nonstressed, ambulatory subject supports the diagnosis of Diabetes Mellitus.Point of Care testing Microbiology Results Procedure Source Result Collection Date/Time Result Date/Time Result Comment Performing Site Urine Culture Urine, Not Otherwise Specified 2 Days March 23, 2025 10:10pm March 26, 2025 1:23pm [facility] [id number] [address] [place] [address] Diagnostic Imaging Reports Author Alonzo Kennedy [facility] HospitalAuthoredOctober 2024 11:24amReport Dictated Date/TimeDictated ByStatusRadiology ReportOctober 2024 11:24am Alonzo Kennedy II MDcompOhio[facility] [place] [address] [place], [place] [address] XRay Report Signed Patient: Emanuel Regalado MR#: [id number] : 1945 Acct:[id number] Age/Sex: 79 / M ADM Date: 5 Loc: Room: [address] [place] [address] Type: ADM IN Attending Dr: Bryon Aguilar MD Copies to: MD Arya Torres DO~ Ordering Provider: Arya Peña DO Date of Service: 03/24/25 XR/XR abdomen min 2V: SBO XR abdomen min 2V 03/24/2025 9:32 AM SIGNS AND SYMPTOMS: ^SBO PROTOCOL: Frontal radiographs of the abdomen and pelvis COMPARISON: 03/23/2025 FINDINGS: Mildly prominent air-filled loops of small bowel are noted with air-fluid levels consistent with a history of bowel obstruction. There is evidence of prior cholecystectomy. No radiographic evidence of free air. An enteric tube is in satisfactory position. Degenerative changes are noted in the thoracolumbar spine. [] XR/XR abdomen min 2V IMPRESSION: Similar dilated loops of small bowel consistent with small bowel obstruction. The enteric tube is in satisfactory position. Impression dictated by: Alonzo Kennedy M.D. 03/24/2025 11:25 AM Dictation Location: [place] [address] Transcribed By: [facility] 03/24/25 1125 Dictated By: Alonzo Kennedy II, MD 03/24/251123 Signed By: <Electronically signed by Alonzo Kennedy II, MD in OV> 03/24/25 1125 Author Guillermo Salazar [facility] HospitalAuthoredOctspring view hospital 2024 8:45amReportDictated Date/TimeDictated ByStatusRadiology ReportOctober 2024 8:45amJeTapan SinghGuernsey Memorial Hospital [facility] [place] [address] [place] [address] XRay Report Signed Patient: Emanuel Regalado MR#: [id number] : 1945 Acct:[id number] Age/Sex: 79 / M ADM Date: 5 Loc: N Room: [address] [place] [address] Type: ADM IN Attending Dr: Bryon Aguilar MD Copies to: MD Arya Torres DO~ Ordering Provider: Arya Peña DO Date of Service: 03/25/25 XR/XR abdomen min 2V: Small bowel obstruction 2 views abdomen COMPARISON: 03/24/2025 HISTORY: Follow-up assessment for small bowel obstruction. NG tube in the stomach. Cholecystectomy. Mild improvement of moderate gaseous intestinal distention. No free subdiaphragmatic air. Atherosclerosis. Degenerative change. XR/XR abdomen min 2V IMPRESSION: Mild decrease of moderate gaseous intestinal distention. No free air. Impression dictated by: Guillermo Salazar M.D. 03/25/2025 8:46 AM Dictation Location: [place] [address] Transcribed By: [facility] 03/25/2546 Dictated By: Guillermo Salazar DO 03/25/25 0845 Signed By: <Electronically signed by Guillermo Salazar DO in OV> 03/25/25 0846 Vital Signs Vital Reading Result Reference Range Collection Date/Time Height 74 [in_i] January 26, 2025 1:01vgYgqofs984.58 kgAugust 2024 1:35pmBody Temperature 97.7 [degF]97.6-99.0August 2024 1:35pmHeart Rate77 /udj51-234Mbaagb 2024 1:35pmRespiratory rate18 /iij56-91Rjoeas 2024 1:35pmOxygen saturation by Pulse dwxsilav617 %95-100August 2024 1:35pmBP Mmjkcjtl249 mm[Hg] 100-140August 2024 1:35pmBP Zhvyjhtzu09 mm[Hg]60-100August 2024 1:35pmBMI (Body Mass Index)29.3 kg/h3Zredrz 2024 1:29qiPbvykt19 [in_i] March 24, 2025 2:94txVifbnf634.20 kgOctspring view hospital 2024 6:07amBody Ruywvjgpoaw34.6 [degF]97.6-99.0Octspring view hospital 2024 11:15amHeart Rate76 /pig01-574 March 25, 2025 11:15amRespiratory rate17 /dyo89-79Czclegw 22nd, 2025 11:15am Oxygen saturation by Pulse %95-100[facility] 2024 11:15amBP Cizbsecw242 mm[Hg]100-140Oct2024 11:15amBP Ngqybipje77 mm[Hg]60-100 March 25, 2025 11:72bkQjwwix82 [in_i]April 03, 2025 8:23ldCdzvrr434.41 kgHarbor Beach Community Hospital 2024 8:11amBody Rfkjjntztgu14.5 [degF]97.6-99.0Octspring view hospital 2024 8:11amHeart Rate83 /bxl45-827YczoejiApril 03, 2025 8:11amRespiratory rate18 /rgs91-63Sfymhpz 2024 8:11amOxygen saturation by Pulse tujzrvnw87 %95-100 April 03, 2025 8:11amBP Bccprrgu087 mm[Hg]100-140April 03, 2025 8:11amBP Podnapouk08 mm[Hg]60-100Oct2024 8:11amBMI (Body Mass Index)29.2 kg/i6Kaybymy 2024 8:11am Advance Directives Advance Directive Response Recorded Date/ Time Advance Directives No August 21, 024 2:39pm Insurance Providers Guarantor Emanuel Regalado Address [address] [place] [address]Ffdyahr Info.Home Phone: Coverage Status Update:2025 Payer Group Member ID Coverage Type Subscriber Relationship to Subscriber Effective Date Expiration Date Medicare [id number] L Miller Id: [id number] [address] [place] [address] Home Phone: Email: [email or web address] [employer] InteractiveSelfMedicare [employer] PGBA [id number] L Miller Id: [id number] [address] [place] [place] [address] Home Phone: Email: [email or web address] InteractiveSelfMedicare Outpatient [id number] Cydney Fabricio Id: [id number] [address] [place] [address] Home Phone: Email: [email or web address] SafariCOMSelf Encounters Encounter Location(s) Arrival/Admit Date Discharge/Departure Date Discharge/Departure Disposition Provider(s) Non-patient / Non-visit -[facility] ugust 2024 7:30am SABRINA Perezeparted Physician/Provider Office Visit-[facility] 2024 1:30pmAugust 2024 1:49pmDischarged to home care or self care (routine discharge)Clarita Perezed Physician/Provider [facility] 11:06amSeptember 2024 11:26amDischarged to home care or self care (routine discharge)Toro Ruff [facility] 2:17pmOctober 2024 2:25pmDischarged to home care or self care (routine discharge)Dusty Ruff-patient / [facility]October 2024 8:40pmMarshal Chambers DODeparted Referred- [facility] 10:10pmOctober 2024 10:11pm Discharged to home care or self care (routine discharge)Marshal Chambers DO [facility] 2:52amOctober 2024 1:29pmDischarged to home care or self care (routine discharge)Bryon Aguilar MDNon-patient / Ntg-ijdac-PCRAultman HospitalOctober 2024 2:18pm Cynthia Dasilva CMADeparted Physician/Provider [facility] 8:08amOctober 2024 9:10amDischarged to home care or self care (routine discharge)Gerry Barton DO Recent Diagnosis Onset Date Admit Date Anemia of renal disease Unknown January 032024 1:30pm CKD (chronic kidney disease) stage 4, GFR 15-29 ml/min Unknown January 26, 2025 1:30pm Hyperkalemia Unknown January 26 1:30pm Hyperlipidemia, mixed Unknown January 1:30pm Hypertensive chronic kidney disease with stage 1 through stage 4 chronic ki Unknown January 26, 2025 1:30pm Hypomagnesemia Unknown January 26 1:30pm Secondary hyperparathyroidism Unknown Au 2024 1:30pm Type 2 diabetes mellitus wit h diabetic chronic kidney disease Unknown January 26, 2025 1:30pm Leukocytosis Unknown March 24 2:52am Small bowel obstruction Unknown March 24, 2025 2:52am UTI (urinary tract infection) Unknown Oc tober 2024 2:52am Chronic kidney disease Unknown March 062024 8:08am Chronic venous insufficiency Unknown Oct hai2024 8:08am Elevated PSA Unknown April 03 8:08am Hyperlipidemia, mixed Unknown April 032024 8:08am Medicare annual wellness visit, subsequent Unkno wn April 03, 2025 8:08am Microscopic hematuria Unknown April 032024 8:08am Obesity Unknown April 03 8:08am Pernicious anemia Unknown April 03, 2025 8:08am Primary hypertension Unknown March 8:08am Renal cyst, acquired, right Unknown Octo 2024 8:08am Type 2 diabetes mellitus wit h diabetic polyneuropathy Unknown April 03, 2025 8:08am Type 2 diabetes mellitus with hyperglycemia Unkn own April 03, 2025 8:08am Functional Status Observation Response Date Recorded Dressing Patient at Baseline March 1:28pm Eating Patient at Baseline March 1:28pm Bathing Patient at Baseline March 1:28pm Disability Status Patient at Baseline March 252024 1:28pm Mental Status Observation Response Date Recorded Cognitive Status Patient at Baseline March 1:28pm Cognitive/Mental Status Assessments Assessments Diagnosis Onset Date Resolution Status Admit Date Anemia of renal disease acuteAugust 2024 1:30pmCKD (chronic kidney disease) stage 4, GFR 15-29 ml/minacuteAugus2024 1:30pmHyperkalemiaacuteAugus2024 1:30pm Hyperlipidemia, mixedacuteAugust 2024 1:30pmHypertensive chronic kidney disease with stage 1 through stage 4 chronic kiacuteAugust 2024 1:30pm HypomagnesemiaacuteAugus2024 1:30pmSecondary hyperparathyroidismacute January 26, 2025 1:30pmType 2 diabetes mellitus with diabetic chronic kidney diseaseacuteAugust 2024 1:30pmLeukocytosisresolvedOct2024 2:52amSmall bowel obstructionresolvedOct2024 2:52amUTI (urinary tract infection)resolvedOct2024 2:52amChronic kidney diseaseacuteOctober 2024 8:08amChronic venous insufficiencyacuteOctober 2024 8:08am Elevated PSAacuteOctober 2024 8:08amHyperlipidemia, mixedacuteMarober 2024 8:08amMedicare annual wellness visit, subsequentacuteMarober 2024 8:08amMicroscopic hematuriaacuteOctober 2024 8:08amObesityacute April 03, 2025 8:08amPernicious anemiaacuteOctober 2024 8:08amPrimary hypertensionacuteOctober 2024 8:08amRenal cyst, acquired, rightacute April 03, 2025 8: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October 2024 8:08amType 2 diabetes mellitus with hyperglycemiaacute April 03, 2025 8:08am Plan of Treatment Author Vaishali Lynda [facility] 4:33pmHe has CKD due to longstanding DM with HTN. His most recent serum creatinine is 3.3 mg/dL. He subnephrotic range proteinuria likely due to the diabetic kidney disease. He has normal serum free light chain ratio with no evidence of a monoclonal protein on SPEP, serum immunofixation. Renal transplant showed large right renal parapelvic cyst, bilateral nephrolithiasis and mild cortical atrophy of the left kidney. He had attended kidney smart class and is interested in PD. No need to initiate dialysis now. Advised him to call office if he develops uremic symptoms and provide information about it. Advised him to continue to follow with PCP for DM management. He has a subnephrotic range proteinuria likely due to the diabetic kidney disease. Continue lisinopril for renal protection. Blood pressure is controlled and he appears to be euvolemic. Continue current dose of the carvedilol and lisinopril. His hemoglobin is within the goal and ahas adequate iron stores. He had unremarkable workup for paraproteinemia. He has secondary hyperparathyroidism due to the hypocalcemia but his phosphorus and vitamin D are within normal. Continue calcitriol 3 times a week. Continue oral calcium. He had hypomagnesemia possibly due to the poor oral intake. He denies any use of PPI or diuretics. Advised him to take oral magnesium 400 g daily. He has hyperkalemia due to the CKD and lisinopril. I have advised him to take low potassium diet and provide information about it. Will Continue statins. Advised him continue to follow with PCP for monitoring of LFTs and lipid profile. Author Gerry Barton [facility] HospitalAuthoredOctspring view hospital 2024 9:08amI have instructed this patient to consume a healthy, low-fat, low-salt diet. I have also encouraged them to continue exercise with weight loss to achieve/maintain a BMI < 30. I have instructed this patient on the correct procedure for obtaining home BP measurements:? - rest for 5 minutes w/o talking. - positioned w/ feet on floor and arms supported. - average best 2/3 readings w/ goal < 135/85. - update office w/ home readings in 2 weeks. Continue Carvedilol and Lisinopril without interruption I have instructed this patient to follow a comprehensive diabetic treatment plan. I have also instructed them to check their feet daily for calluses and nonhealing ulcers. I have instructed them to have a yearly dilated eye examination. I have reviewed their treatment goals: SBP less than 130, LDL less than 100, FBS less than 140, A1C less than 7%. I have instructed them to maintain a home BS log and bring the results to each of their office visits for review. I have explained the importance of routine monitoring of their A1C, Microalbumin and Lipids. I have explained the benefits of well controlled diabetes in preventing micro and macrovascular complications. A1C 6.8% March 2024, 7.2% November 2024 Consider SGLT2? Continue Lantus, Januvia and Glimepiride without interruption Holding basal insulin and LEGER at times when evening BS < 140 I have instructed the patient to inspect their feet daily for cuts and calluses. I have recommended shoes and inserts to prevent callus formation. I have reviewed fall precautions. I instructed this patient on the benefits of adequate control of hypertension and diabetes, if appropriate. I have also instructed them to avoid use of NSAIDs due to the adverse effects on renal function. I instructed them on adequate fluid balance and to consume at least 48 oz of fluids daily. I also instructed them to monitor for an unexplained increase in weight and lower extremity edema. They have been instructed to notify the office for any changes or concerns. Secondary to HTN and DM Re-established w/ Dr. Howell No changes f/u Nephrology I have instructed this patient on a low fat, high fiber diet and exercise. I have discussed the primary and secondary prevention benefits attributed to lowering LDL cholesterol. I have also discussed the medical treatment of elevated cholesterol, which is based on the 10 year ASCVD risk. Continue Atorvastatin without interruption Completed referral to Urology - discussed closely monitoring PSA, MRI and TRUS/Bx PSA: 5.63 - 03/2024, 3.01 - 10/2024 f/u Urology I have instructed this patient to avoid salt and elevate their lower extremities. I have also recommended use of support stockings. I instructed them to inspect their legs and feet daily for blisters and ulcerations. I have instructed this patient on a low-fat, high-fiber diet.?? I have also instructed them to reduce calories, portions sizes, sweet drinks and snacks.?? I have also recommended they exercise for 30 minutes, 3-5 times weekly. They are aware of the comorbid conditions associated with excessive weight: Diabetes, HTN, Hyperlipidemia, CAD and arthritis. CT: 5.8cm right renal cyst Continue to monitor for stability Monitor CBC yearly Continue B12 injections monthly. Completed evaluation w/ Urology CT abd/pelvis w/o renal mass, stones or bladder tumor - 11/2024 Cystoscopy w/o lesions - 11/2024 I have instructed this patient on the recommended lifestyle changes, which includes a low fat, high fiber diet along with a regular exercise routine. I have also reviewed the recommended age-appropriate preventive testing for this patient. I have also reviewed the recommended vaccines for their age and risk factors. Future Tests Future scheduled test information is unavailable Pending Tests Test Name Ordered Date Scheduled Date Renal Function Panel January 26, 2025 1:46pm 3 Months Future Visits Future appointment information is unavailable Future Procedures Procedure Name Ordered Date Scheduled Date Admit Status Order March 24, 2025 3:18am Oct hai 2024 3:18am Discharge Order March 25, 2025 12:47pm Octob er 2024 12:47pm Hemogram CBC Without Diff January 26, 2025 1:46 pm 3 Months Iron and TIBC Profile January 26, 2025 1:46pm 3 Months Ferritin January 26, 2025 1:46pm 3 Month s Magnesium January 26, 2025 1:46pm 3 Month s Parathyroid Hormone Intact January 26, 2025 1:4 6pm 3 Months Uric Acid January 26, 2025 1:46pm 3 Month s Vitamin D 25 Hydroxy Total January 26, 2025 1:4 6pm 3 Months A1C with Estimated Average Glu April 03 9:04am MicroAlb Creat Ratio,UOctober 2024 9:04am Future Medications Future medication information is unavailable Patient Instructions Instruction Admit Date Know your Meds March 24, 2025 2 :52am Goals Preferences Type Detail Treatment Intervention Code Status: Full Code
--- OUTSIDE RECORDS SUMMARY | 2025-04-06 08:29 | XMS_ITS | Encounter Summary ---
Author Organization [facility] Address [address] [place] [address] Care Team Providers Care Lens Generator Name Role Phone Mick Gerry Mann DO Primary Care Provider [phone] Destiny Gant MD Unavailable [phone] Gerry Nelson DO Unavailable [phone] Encounter Details DateTypeDepartmentCare Team (Latest Contact Info)Svfwqifjrax08/22/2025External Result Encounter [facility] External Department Unsolicited Arya Peña, DO [address] [facility] [address] [place] [address] Social History Tobacco UseTypesPacks/DayYears UsedDateSmoking Tobacco: NeverSmokeless Tobacco: NeverAlcohol UseStandard Drinks/WeekCommentsYes0 (1 standard drink = 0.6 oz pure alcohol)Monthly or lessSex and Gender InformationValueDate RecordedSex Assigned at BirthNot on fileLegal YdsQaql6208/16/2022 7:34 PM EDTGender IdentityNot on file Sexual OrientationNot on filedocumented as of this encounter Plan of Treatment DateTypeDepartmentCare Team (Latest Contact Info)Mgqwulwpbzj21/30/2026 8:35 AM EDTOffice Visit [facility] [address] [facility] [address] [place] [address] Melody Manzano, LOSS PREVENTION AND SAFETY MANAGER-LEAD INSPECTOR [address] [facility] [address] [place] [address] documented as of this encounter Procedures Procedure NamePriorityDate/TimeAssociated DiagnosisCommentsXR ABDOMEN 2 VIEW 03/25/2025 8:45 AM EDT documented in this encounter Results * XR ABDOMEN 2 VIEW (03/25/2025 8:45 AM EDT)Anatomical RegionLateralityModality AbdomenRadiographic ImagingSpecimen (Source)Anatomical Location / Laterality Collection Method / VolumeCollection TimeReceived Time03/25/2025 8:45 AM EDT Impressions 03/25/2025 8:49 AM EDT Mild decrease of moderate gaseous intestinal distention. No free air. ?? Impression dictated by: Guillermo Salazar M.D. ??03/25/2025 8:46 AM ? Dictation Location: RADIO-PC-16 ? Transcribed By: ? PWS ?03/25/25845 ? Dictated By: ?Guillermo Salazar DO ?03/25/2545 ? Signed By: <Electronically signed by Guillermo Salazar, DO in OV> ? 03/25/25845 Narrative 03/25/2025 8:49 AM EDT [facility] ?[facility] [address] [place] ?[address] ? [place] [address] ?XRay Report ? Signed ? Patient: Regalado,Emanuel L ?MR#: [id number] ?? 675 ? : 1945 ?Acct:[id number] ? Age/Sex: 79 / M ?ADM Date: 10/21/25 ? Loc: 4N ?Room: ??5K8490-4 ?Type: ADM IN ?? Attending Dr: Bryon Aguilar MD ?? Copies to: Bryon Aguilar MD ?? Arya Peña DO ? Ordering Provider: Arya Peña DO ?? Date of Service: 03/25/25 ?? XR/XR abdomen min 2V: Small bowel obstruction ? 2 views abdomen ? COMPARISON: 03/24/2025 ? HISTORY: Follow-up assessment for small bowel obstruction. ? NG tube in the stomach. ??Cholecystectomy. ??Mild improvement of moderate gaseous intestinal distention. ??No free subdiaphragmatic air. ??Atherosclerosis. ??Degenerative change. ? XR/XR abdomen min 2V ?? Procedure Note Radiology, Radiologist, - 03/25/2025 [facility] Main [place] [address] [place] [address] XRay Report Signed Patient: Emanuel Regalado LMR#: [id number] 675 : 8Acct:[id number] Age/Sex: 79 / MADM Date: 03/24/25 Loc: Room: 1Z4916-4Jkfr: ADM IN Attending Dr: Bryon Aguilar MD Copies to: MD Arya Torres DO Ordering Provider: Arya Peña DO Date of Service: 03/25/25 XR/XR abdomen min 2V: Small bowel obstruction 2 views abdomen COMPARISON: 03/24/2025 HISTORY: Follow-up assessment for small bowel obstruction. NG tube in the stomach. Cholecystectomy. Mild improvement of moderategaseous intestinal distention. No free subdiaphragmatic air. Atherosclerosis. Degenerativechange. XR/XR abdomen min 2V IMPRESSION: Mild decrease of moderate gaseous intestinal distention. No free air. Impression dictated by: Guillermo Salazar M.D. 03/25/2025 8:46 AM Dictation Location: [facility]--16 Transcribed By: [facility] 03/25/25845 Dictated By: Guillermo Salazar DO 03/25/25844 Signed By: <Electronically signed by Guillermo Salazar DO in OV> 03/25/25845 Authorizing ProviderResult TypeResult StatusFredric H Itzkowitz DOIMG XR PROCEDURESFinal Result documented in this encounter Visit Diagnoses Not on filedocumented in this encounter Care Teams Team MemberRelationshipSpecialtyStart DateEnd Date Gerry Barton DO [address] [place] [facility] [place] [address] PCP - GeneralInternal Medicine08/04/23 Destiny Gant MD [address] [facility] [address] [place] [address] Referring PhysicianDermatology10/31/23 Gerry Nelson DO [address] [place] [address] Otolaryngology10/31/23documented as of this encounter
--- OUTSIDE RECORDS SUMMARY | 2025-04-06 08:29 | XMS_ITS | Clinical Summary ---
Author Organization [employer] [facility] tem Address [id number] [address] [place] [address] Care Team Providers Care Terrapin Fisher Name Role Phone Gerry Barton Primary Care Provider [phone] Allergies Active AllergyReactionsCriticalityNoted DateCommentsPiperacillin-TazobactamRash High09/14/2009 Pt states he turned purple then shed all his skin weeks later Pt developed severe rash after zosyn initiated Trmwwqbia52/22/2021 kidney killer Medications MedicationSigDispense QuantityRefillsLast FilledStart DateEnd DateStatus lisinopril (PRINIVIL,ZESTRIL) 2.5 mg tablet Take 1 tablet (2.5 mg total) by mouth in the morning.Active carvedilol (COREG) 6.25 mg tablet Take 1 tablet (6.25 mg total) by mouth in the morning and 1 tablet (6.25 mg total) in the evening. Take with meals.Active glimepiride (AMARYL) 4 mg tablet Take 1 tablet (4 mg total) by mouth every morning before breakfast.Active linaGLIPtin (TRADJENTA) 5 mg tablet Take 1 tablet (5 mg total) by mouth in the morning.Active atorvastatin (LIPITOR) 10 mg tablet Take 1 tablet (10 mg total) by mouth in the morning.01/30/2023ctive CONTOUR NEXT TEST STRIPS strip 1 strip by other route 3 (three) times a day.02/02/2023ctive Active Problems No known active problems Family History Medical HistoryRelationNameCommentsCOPDFatherHeart failureFatherDiabetesMother Heart diseaseMotherRelationNameStatusCommentsBrotherDeceasedDaughterAliveFather DeceasedMotherDeceasedSister 1AliveSister 2AliveSister 3DeceasedSonAlive Social History Tobacco UseTypesPacks/DayYears UsedDateSmoking Tobacco: NeverSmokeless Tobacco: Never Tobacco Cessation:Counseling Given: Not Answered Alcohol UseStandard Drinks/WeekCommentsNo0 (1 standard drink = 0.6 oz pure alcohol)ChildcareAnswerDate HkxzzaqhGkulyugllUamzacz14/12/2019EmploymentAnswer Date XxqouysdCaeqvsvsogNitndhs30/12/2019Hunger ScreeningAnswerDate Recorded Within the past 12 months we worried whether our food would run out before we got money to buy more.Never True02/28/2023Food Insecurity - InabilityNot on file 02/28/2023urpose - LifeAnswerDate RecordedPurpose and direction in lifeUnknown 07/15/2020ex and Gender InformationValueDate RecordedSex Assigned at BirthNot on fileLegal SciAlkf0001/07/2015 11:21 AM EDTGender IdentityNot on fileSexual OrientationNot on file Last Filed Vital Signs Vital SignReadingTime TakenCommentsBlood Vsxibzfm416/8102/28/2023 8:51 AM EDT Vcmnm442102/28/2023 8:51 AM KHYVartiknxlbs04.2 ??C (97.1 ??F)04/21/2022 9:24 AM ESTRespiratory Somu689206/11/2021 1:00 PM ESTOxygen Daersuqnok88%04/11/2022 1:00 PM ESTInhaled Oxygen Concentration--Jssfqu169.1 kg (231 lb 9.6 oz)02/28/2023 8:51 AM YSEYlqpck517 cm (6' 2 )02/28/2023 8:51 AM EDTBody Mass Index29.74 02/28/2023 8:51 AM EDT Plan of Treatment Health MaintenanceDue DateLast DoneCommentsDepression Mgkdrzpmy72/17/1960Tobacco Ktrzaqjps84/17/1960DTaP,Tdap and Td Vaccines (1 - Tdap)1966Fall Risk Tomxorryt89/17/2013RSV ( or age 60+ yrs) (1 - 1-dose 75+ series) 3COVID-19 Vaccine ( season)509/, 09/13/2021, 01/17/2021, Additional history existsInfluenza Swirtmk50/01/026350/, 02/25/2021, 02/05/2020, Additional history existsZoster (Shingles) Vaccine Xmofkckpp32/15/2020, 06/01/2019, 04/10/2013 Medical Devices ImplantedTypeAreaManufacturerDevice IdentifierShelf Expiration DateModel / Serial / LotPort Powerport Mri Argd 8fr [address] [facility] [address] Intmd Kt Cecille Jostin - Sna - [id number] Implanted:Qty: 1 on 04/11/2022 by Radames Chacon DO [facility] DIVISIONTPortN/A: ChestBard Peripheral Xnjwprbw97/31/[id number] / NA / [id number] Insurance Care Teams Team MemberRelationshipSpecialtyStart DateEnd Date Gerry Barton DO [address] [place] [address] PCP - GeneralInternal Sluwkiqz86/17/22
--- OUTSIDE RECORDS SUMMARY | 2025-04-06 08:29 | XMS_ITS ---
Author Organization [facility] Address [address] [place] [address] Care Team Providers Care Financial Sales Professional Name Role Phone Gerry Barton DO Primary Care Provider [phone] Active Problems ProblemNoted DateDiagnosed DateCentral line shvzecs92/20/2022Diabetes mellitus 05/02/2019 Overview (05/02/2019): A/p: -Q6 Accuchecks -ISS BPH (benign prostatic hyperplasia)09/21/20094581Vpyxuyhraug58/06/2010Drug-induced tmvxdvfhfxwo82/06/2010 Overview (09/07/2009): chemotherapy Fever09/07/2009NHL (non-Hodgkin's lymphoma)08/27/2009 Overview (09/22/2009): Day: Protocol(s): Preparative regimen: Bu/Cy/RESTAURANT OPERATIONS MANAGER Mobilization regimen: RESTAURANT OPERATIONS MANAGER/G Stem cell source: PSC CD34 cell dose (x10e6/kg): 3.64 Date of transplant: 09/29/09 Current Treatment and Therapy Plans No current plan information found. Past Treatment and Therapy Plans Plan NameStart DateDiscontinue DateTreatment MedicationsDiscontinue ReasonPlan ProviderCyclesAMB HYDRATION - ONCE/01/2023No medications scheduled. Yoly De Luna PA-C2 of 2 cycles startedHYDRATION - ONCE/10/2021 No medications scheduled.Yamilka Joshua APRN.CNP4 of 4 cycles started CENTRAL LINE FLUSH - Weekly x 24 weeksNo medications scheduled.Treatment Yamilka Jhaveri APRN.CNP1 of 1 cycle started Resolved Problems ProblemNoted DateDiagnosed DateResolved DateSBO (small bowel obstruction) Overview (05/02/2019): Hx: A/p: -NPO -NGT -mIVF [...] SCDs, SQH D/c planning: RNF Small bowel kazbcnrcbix27
--- OUTSIDE RECORDS SUMMARY | 2025-04-06 08:29 | XMS_ITS | Clinical Summary ---
Author Organization [facility] Address [address] [facility], [address] [place] [address] Care Team Providers Care Egg Candler Name Role Phone Gerry Barton DO Primary Care Provider [phone] Allergies Active AllergyReactionsCriticalityNoted DateCommentsPiperacillin Sod-Tazobactam SoOther (See Comments)04/10/2013 Skin turned purple and pealed off Medications MedicationSigDispense QuantityRefillsLast FilledStart DateEnd DateStatus fenofibrate 160 MG tablet Take 160 mg by mouth daily.Active glimepiride (AMARYL) 4 MG tablet Take 8 mg by mouth every morning (before breakfast).Active linagliptin (TRADJENTA) 5 MG tablet Take 5 mg by mouth daily.Active benazepril (LOTENSIN) 10 MG tablet Take 10 mg by mouth daily.Active aspirin 81 MG tablet Take 81 mg by mouth three times a week.Active ascorbic acid 500 MG/ML injection Inject 500 mg as directed every 30 days.Active Active Problems ProblemNoted DateDiagnosed DateClaw toe, mrshynov88/13/2014 Overview (08/14/2013): Left great toe Ulcer of other part of foot04/10/2013 Overview (04/10/2013): Left great toe Family History Medical HistoryRelationNameCommentsEmphysemaFatherRelationNameStatusComments FatherDeceasedMotherDeceased Social History Tobacco UseTypesPacks/DayYears UsedDateSmoking Tobacco: NeverAlcohol UseStandard Drinks/WeekCommentsNo0 (1 standard drink = 0.6 oz pure alcohol)Sex and Gender InformationValueDate RecordedSex Assigned at BirthNot on fileLegal SexMale 07/14/2012 10:07 AM ESTGender IdentityNot on fileSexual OrientationNot on file Last Filed Vital Signs Vital SignReadingTime TakenCommentsBlood Ugfhfqgd039/76009/25/2013 8:57 AM EDT Ilwwh523909/25/2013 8:57 AM XDSPpextlgtvan39.7 ??C (96.3 ??F)09/25/2013 8:57 AM EDTRespiratory Etnu553509/25/2013 8:57 AM EDTOxygen Kiaaqyethe07%08/15/2013 8:45 AM EDTInhaled Oxygen Concentration--Wqeaja609.5 kg (248 lb)09/25/2013 8:57 AM ZNHOzkhlf108 cm (6' 2 )09/25/2013 8:57 AM EDTBody Mass Index31.8409/25/2013 8:57 AM EDT Plan of Treatment Not on file Care Teams Team MemberRelationshipSpecialtyStart DateEnd Date Gerry Barton DO [address] [place] [phone] [facility] - Cymmafj82/5/13
--- OUTSIDE RECORDS SUMMARY | 2025-04-06 08:29 | XMS_ITS | Clinical Summary ---
Author Organization [facility] Address [address] [place] [address] Care Team Providers Care Printing Gray Cloth Tender Name Role Phone Gerry Barton DO Primary Care Provider [phone] Destiny Gant MD Unavailable Gerry Nelson DO Unavailable Allergies Active AllergyReactionsCriticalityNoted PqkgVekhytjjSabgjavgoNanbvde03/22/2021 kidney killer Ketorolac PduaycfxnloiLlzmsyo95/21/4088Qazdxqqqlgvu71/20/2024 Other Reaction(s): Redness of Skin Piperacillin Sod-Tazobactam DnKfmlr5604/10/2013 Other Reaction(s): TURNED PURPLE Skin turned purple and pealed off Piperacillin-Tazobactam In IemHnniGuuw79/13/2010 Pt states he turned purple then shed all his skin weeks later Pt developed severe rash after zosyn initiated Pt developed severe rash after zosyn initiated ItuatcwsbfEjsigif46/20/2024 Medications MedicationSigDispense QuantityRefillsLast FilledStart DateEnd DateStatus aspirin 81 MG EC tablet Take 81 mg by mouth in the morning. 3 times a week.Active atorvastatin (Lipitor) 10 MG tablet Take 10 mg by mouth in the morning.Active benazepril (Lotensin) 10 MG tablet Take 10 mg by mouth in the morning.Active carvedilol (Coreg) 6.25 MG tablet Take 6.25 mg by mouth in the morning and 6.25 mg in the evening. Take with meals.Active glimepiride (Amaryl) 4 MG tablet Take 4 mg by mouth in the morning. Take before meals.Active Contour Next Test test strip 1 each by Other route if neededActive insulin detemir (Levemir) 100 UNIT/ML injection Inject 6 Units under the skin at bedtimeActive linaGLIPtin (Tradjenta) 5 MG tablet Take 5 mg by mouth in the morning.Active lisinopril 2.5 MG tablet Take 2.5 mg by mouth in the morning.Active Active Problems ProblemNoted DateDiagnosed DateAnkylosis, right wasiehnv24/20/2024rthritis 08/22/2023symptomatic microscopic gqpelyfzk63/20/2024leeding disorder 08/22/2023PH with urinary yngeycdqlyl51/20/2024Elevated PSA08/22/2023Glucosuria 08/22/2023Hammertoe of left foot08/22/20235563Jzkdmseb13/20/2024Other chronic pain 08/22/2023ain in right /20/2024resence of both artificial knee fnxdfp9708/22/2023rotein in urine08/22/2023Skin ulcer of toe of left foot with fat layer rgrabhs6108/22/2023Type 2 diabetes mellitus with neurological fkuoxroszoizl92/20/2024entral line xkehbdr67/20/2022Diabetes zihrdjgy51/29/2019 Overview (08/22/2023): A/p: -Q6 Accuchecks -ISS Claw toe, zazihaue23/13/2014 Overview (08/22/2023): Left great toe Hemorrhage of gastrointestinal tract11/24/2010PH (benign prostatic hyperplasia) 09/21/2009Drug-induced mkvjixwkyfpv48/06/2010 Overview (08/22/2023): chemotherapy Fever09/07/20099364Bqsjfchtynt80/06/2010NHL (non-Hodgkin's lymphoma)08/27/2009 Overview (08/22/2023): Day: Protocol(s): Preparative regimen: Bu/Cy/TRIMMING MACHINE SET UP OPERATOR Mobilization regimen: TRIMMING MACHINE SET UP OPERATOR/G Stem cell source: PSC CD34 cell dose (x10e6/kg): 3.64 Date of transplant: 09/29/09 Resolved Problems ProblemNoted DateDiagnosed DateResolved DatePrimary mlaoalwcfxpm90/03/2024 09/05/2023ernicious feyizc04Other obesity due to excess qmszsfmo30Hyperlipidemia, mixedody mass index (BMI) 30.0-30.9, adulthronic venous insufficiency Encounters DateTypeDepartmentCare ZaspAewijppwsym86/30/2025 8:35 AM EDTOffice Visit [facility] [address] [place] [address] Melody Manzano MANAGER PEOPLE-HIGINIO Actinic keratosis; Seborrheic keratosis; Melanocytic nevus of right upper extremity; Melanocytic nevus of left upper extremity; Capillary angioma; Lentigines; History of SCC (squamous cell carcinoma) of skin; Neoplasm of unspecified behavior of bone, soft tissue, and skin04/02/2025amboo flowsheet [facility] [address] [place] [address] Melody Manzano APRN-CNP 04/02/20255386Fyyzgu85/22/2025External Result Encounter [facility] External Department Unsolicited Arya Peña DO 03/24/2025External Result Encounter [facility] External Department Unsolicited Arya Peña DO from Last 3 Months Immunizations ImmunizationAdministration DatesNext DueDTaP, Eoqnjhdkmls16/15/2018,03/26/2002 Influenza, High Dose Seasonal, Preservative Free04/12/2017,03/15/2016,04/06/2015 Influenza, High-dose Seasonal, Quadrivalent, Preservative Free02/05/2020 Influenza, Seasonal, Quadrivalent, Ulvfrnrkti51/10/2023,02/23/2022Influenza, Ycknamsyjzs62/09/2019Influenza, trivalent, vcvrosaljm13/24/2021,03/26/2018 Pneumococcal Conjugate PCV 13106/09/2014Pneumococcal Polysaccharide PPSV23 03/16/2014Td (adult), 5 Lf tetanus toxoid, preservative free, fhgnidqc74/13/2014 Zoster, Jgqpanunnmu07/15/2020,06/01/2019Zoster, live04/10/2013 Family History Medical HistoryRelationNameCommentsCancerDaughterHeart diseaseDaughter HypertensionDaughterKidney diseaseDaughterKidney diseaseFatherDiabetesMother Heart diseaseMotherHypertensionMotherStrokeMotherRelationNameStatusComments DaughterFatherDeceasedMotherDeceased Social History Tobacco UseTypesPacks/DayYears UsedDateSmoking Tobacco: NeverSmokeless Tobacco: Never Tobacco Cessation:Counseling Given: Not Answered Alcohol UseStandard Drinks/WeekCommentsYes0 (1 standard drink = 0.6 oz pure alcohol)Monthly or lessSex and Gender InformationValueDate RecordedSex Assigned at BirthNot on fileLegal KnmEebp4208/16/2022 7:34 PM EDTGender IdentityNot on file Sexual OrientationNot on file Last Filed Vital Signs Vital SignReadingTime TakenCommentsBlood Utzgtrdz678/8405/22/2023 9:37 AM EST Pulse--Temperature--Respiratory Rate--Oxygen Saturation--Inhaled Oxygen Concentration--Arjezk836 kg (230 lb)10/31/2023 3:20 PM INMOremwj919 cm (6' 2 ) 10/31/2023 3:20 PM EDTBody Mass Index29.53010/31/2023 3:20 PM EDT Plan of Treatment DateTypeDepartmentCare Team (Latest Contact Info)Ynxxteethgz90/30/2026 8:35 AM EDTOffice Visit [facility] [address] [place] [phone] Melody Manzano APRN-[employer] [address] [place] [address] Health MaintenanceDue DateLast DoneCommentsCOVID-19 Vaccine ( season) 5002/18/2025, 02/13/2024, 03/13/2023, Additional history exists DTaP/Tdap/Td Vaccines (4 - Tdap)8011/16/2017, 03/16/2014, 03/26/2002 Pneumococcal Vaccine: 65+ BqxsoRaieodwsp15/06/2015, 03/16/2014Colorectal Cancer UhetmagclWjypuzwzzqsgOEITlapgrmzmbkv27/20/2021Influenza VaccineCompleted 02/04/2025, 02/13/2024, 03/13/2023, Additional history existsCT Colonography DiscontinuedColonoscopyDiscontinuedFIT-DNADiscontinuedFOBTDiscontinuedHIB VaccinesAged OutNo longer eligible based on patient's age to complete this topic HPV VaccinesAged OutNo longer eligible based on patient's age to complete this topicHepatitis A VaccinesAged OutNo longer eligible based on patient's age to complete this topicHepatitis B VaccinesAged OutNo longer eligible based on patient's age to complete this topicIPV VaccinesAged OutNo longer eligible based on patient's age to complete this topicMeningococcal B VaccineAged OutNo longer eligible based on patient's age to complete this topicMeningococcal VaccineAged OutNo longer eligible based on patient's age to complete this topicRotavirus VaccinesAged OutNo longer eligible based on patient's age to complete this topic SigmoidoscopyDiscontinued Procedures Procedure NamePriorityDate/TimeAssociated DiagnosisCommentsSKIN / NAIL BIOPSY Ihxawhn8904/02/2025 8:27 AM EDT Neoplasm of unspecified behavior of bone, soft tissue, and skin SKIN / NAIL POUHGLKvzwvpm17/30/2025 8:26 AM EDT Neoplasm of unspecified behavior of bone, soft tissue, and skin CRYOTHERAPY SKIN MYYGENEfclqzp61/30/2025 8:25 AM EDT Actinic keratosis XR ABDOMEN 2 VIEW03/25/2025 8:45 AM EDT XR ABDOMEN 2 VIEW03/24/2025 11:24 AM EDT from Last 3 Months Results * Lesion biopsy (04/02/2025 8:27 AM [...] used: 0.5 cc Authorizing ProviderResult TypeResult StatusNatalie Edward Manzano MANAGER PEOPLE-CNPDERM PROCEDURE ORDERABLESFinal Result * Lesion biopsy (04/02/2025 [...] cc Authorizing ProviderResult TypeResult StatusNatalie A Felter MANAGER PEOPLE-CNPDERM PROCEDURE ORDERABLESFinal Result * Cryotherapy, skin lesion (04/02/2025 8:25 AM EDT) Narrative Authorizing ProviderResult TypeResult StatusNatalie A Felter MANAGER PEOPLE-CNPDERM PROCEDURE ORDERABLESFinal Result * XR ABDOMEN 2 VIEW (03/25/2025 8:45 AM EDT) Only the most recent of2 resultswithin the time period is included. Anatomical RegionLateralityModalityAbdomenRadiographic ImagingSpecimen (Source) Anatomical Location / LateralityCollection Method / VolumeCollection Time Received Time03/25/2025 8:45 AM EDT Impressions 03/25/2025 8:49 AM EDT Mild decrease of moderate gaseous intestinal distention. No free air. ?? Impression dictated by: Guillermo Salazar M.D. ??03/25/2025 8:46 AM ? Dictation Location: RADIO-PC-16 ? Transcribed By: ? PWS ?03/25/2546 ? Dictated By: ?Guillermo Salazar DO ?03/25/2545 ? Signed By: <Electronically signed by Guillermo Salazar, DO in OV> ? //25 0846 Narrative 03/25/2025 8:49 AM EDT [facility] ?[facility] [address] [place] ?[address] ? [place] [address] ?XRay Report ? Signed ? Patient: Regalado,Emanuel L ?MR#: [id number] ?? 675 ? : 1945 ?Acct:[id number] ? Age/Sex: 79 / M ?ADM Date: 03/24/25 ? Loc: 4N ?Room: ??8R3112-5 ?Type: ADM IN ?? Attending Dr: Bryon Aguilar MD ?? Copies to: Bryon Aguilar MD ?? Arya Peña, ? Ordering Provider: Arya Peña DO ?? [...] ?? Procedure Note Radiology, Radiologist, - 03/25/2025 [facility] [place] [address] XRay Report Signed Patient: Emanuel Regalado LMR#: [id number] 675 : 8Acct:[id number] Age/Sex: 79 / MADM Date: 03/24/25 Loc: 4N Room: 3N2303-5Rtpd: ADM IN Attending Dr: Bryon Aguilar MD [...] Salazar M.D. 03/25/2025 8:46 AM Dictation Location: [facility]16 Transcribed By: FAREED 03/25/25 0846 Dictated By: Guillermo Salazar DO 03/25/2545 Signed By: <Electronically signed by Guillermo Salazar DO in OV> 03/25/25 0846 Authorizing ProviderResult TypeResult StatusFredric H Mariana DOIMG XR PROCEDURESFinal Result from Last 3 [place] [address] [place] [address] Care Teams Team MemberRelationshipSpecialtyStart DateEnd Date Gerry Barton DO [address] [facility] [place] [address] PCP - GeneralInternal Medicine08/04/23 Destiny Gant MD [address] [facility] [address] [place] [address] Referring PhysicianDermatology10/31/23 Gerry Nelson DO [address] [place] [address] Otolaryngology10/31/23
--- OUTSIDE RECORDS SUMMARY | 2025-04-06 08:29 | XMS_ITS | Encounter Summary ---
Author Organization [facility] Address [address] [place] [address] Care Team Providers Care Advertising Representative Name Role Phone Mick Gerry Mann DO Primary Care Provider Destiny Gant MD Unavailable [phone] Gerry Nelson DO Unavailable [phone] Encounter Details DateTypeDepartmentCare Team (Latest Contact Info)Jweimvhnlfx21/21/2025External Result Encounter [facility] External Department Unsolicited Arya Peña, DO [address] [facility] [address] [place] [address] Social History Tobacco UseTypesPacks/DayYears UsedDateSmoking Tobacco: NeverSmokeless Tobacco: NeverAlcohol UseStandard Drinks/WeekCommentsYes0 (1 standard drink = 0.6 oz pure alcohol)Monthly or lessSex and Gender InformationValueDate RecordedSex Assigned at BirthNot on fileLegal FysLyxt0008/16/2022 7:34 PM EDTGender IdentityNot on file Sexual OrientationNot on filedocumented as of this encounter Plan of Treatment DateTypeDepartmentCare Team (Latest Contact Info)Gibwlvrrleh92/30/2026 8:35 AM EDTOffice Visit [facility] [address] [facility] [address] [place] [address] Melody Manzano, DRAFTER ELECTRICAL-ERP PROJECT MANAGER [address] [facility] [address] [place] [address] documented as of this encounter Procedures Procedure NamePriorityDate/TimeAssociated DiagnosisCommentsXR ABDOMEN 2 VIEW 03/24/2025 11:24 AM EDT documented in this encounter Results * XR ABDOMEN 2 VIEW (03/24/2025 11:24 AM EDT)Anatomical RegionLateralityModality AbdomenRadiographic ImagingSpecimen (Source)Anatomical Location / Laterality Collection Method / VolumeCollection TimeReceived Time03/24/2025 11:24 AM EDT Impressions 03/24/2025 11:27 AM EDT Similar dilated loops of small bowel consistent with small bowel obstruction. ? The enteric tube is in satisfactory position. ? Impression dictated by: Alonzo Kennedy M.D. ??03/24/2025 11:25 AM ? Dictation Location: RADIO-PC-27 ? Transcribed By: ? PWS ?03/24/251124 ? Dictated By: ?Alonzo Kennedy II, MD ?03/24/254 ? Signed By: <Electronically signed by Alonzo Kennedy II, MD in OV> ? 03/24/25 1125 Narrative 03/24/2025 11:27 AM EDT [facility] ?[facility] Main [place] ?[address] ? [place] [address] ?XRay Report ? Signed ? Patient: Regalado,Emanuel L ?MR#: [id number] ?? [id number] ? : 1945 ?Acct:[id number] ? Age/Sex: 79 / M ?ADM Date: 10/21/25 ? Loc: 4N ?Room: ??6O6314-8 ?Type: ADM IN ?? Attending Dr: Bryon Aguilar MD ?? Copies to: Bryon Aguilar MD ?? Arya Peña DO ? Ordering Provider: Arya Peña DO ?? Date of Service: 03/24/25 ?? XR/XR abdomen min 2V: SBO ? XR abdomen min 2V ??03/24/2025 9:32 AM ? SIGNS AND SYMPTOMS: ?? SBO ? PROTOCOL: Frontal radiographs of the abdomen and pelvis ? COMPARISON: 03/23/2025 ? FINDINGS: ? Mildly prominent air-filled loops of small bowel are noted with air-fluid levels consistent with a history of bowel obstruction. ??There is evidence of prior cholecystectomy. ??No radiographic evidence of free air. ??An enteric tube is in satisfactory position. ??Degenerative changes are noted in the thoracolumbar spine. ??[] ? XR/XR abdomen min 2V ?? Procedure Note Alonzo Kennedy MD - 03/24/[address] [facility] Main [place] [address] [place] [address] XRay Report Signed Patient: Emanuel Regalado LMR#: [id number] : 8Acct:[id number] Age/Sex: 79 / MADM Date: 03/24/25 Loc: 4N Room: 4P1846-8Ykpt: ADM IN Attending Dr: Bryon Aguilar MD Copies to: MD Arya Torres DO Ordering Provider: Arya Peña DO Date of Service: 03/24/25 XR/XR abdomen min 2V: SBO XR abdomen min 2V 03/24/2025 9:32 AM SIGNS AND SYMPTOMS: SBO PROTOCOL: Frontal radiographs of the abdomen and pelvis COMPARISON: 03/23/2025 FINDINGS: Mildly prominent air-filled loops of small bowel are noted with air-fluidlevels consistent with a history of bowel obstruction. There is evidence of prior cholecystectomy.No radiographic evidence of free air. An enteric tube is in satisfactory position. Degenerativechanges are noted in the thoracolumbar spine. [] XR/XR abdomen min 2V IMPRESSION: Similar dilated loops of small bowel consistent with small bowelobstruction. The enteric tube is in satisfactory position. Impression dictated by: Alonzo Kennedy M.D. 03/24/2025 11:25 AM Dictation Location: [facility]- Transcribed By: [facility] 03/24/25 1125 Dictated By: Alonzo Kennedy II, MD 03/24/25 1124 Signed By: <Electronically signed by Alonzo Kennedy II, MD inOV> 03/24/25 1125 Authorizing ProviderResult TypeResult StatusFredric Iraj Peña DOIMG XR PROCEDURESFinal Result documented in this encounter Visit Diagnoses Not on filedocumented in this encounter Care Teams Team MemberRelationshipSpecialtyStart DateEnd Date Gerry Barton DO [address] [place] [address] PCP - GeneralInternal Medicine08/04/23 Destiny Gant MD [address] [facility] [address] [place] [address] Referring PhysicianDermatology10/31/23 Gerry Nelson DO [address] [place] [address] Otolaryngology10/31/23documented as of this encounter
--- OUTSIDE RECORDS SUMMARY | 2025-04-06 08:29 | XMS_ITS | Encounter Summary ---
Author Organization [facility] Address [address] [place] [address] Care Team Providers Care Automatic Machines Supervisor Name Role Phone Gerry Barton DO Primary Care Provider [phone] Destiny Gant MD Unavailable [phone] Gerry Nelson DO Unavailable [phone] Encounter Details DateTypeDepartmentCare Team (Latest Contact Info)Gwtsbnalcpi47/30/2025amboo flowsheet [facility] [address] [place] [address] Melody Manzano, SMOG TECHNICIAN-TEST RACK OPERATOR [address] [place] [address] Social History Tobacco UseTypesPacks/DayYears UsedDateSmoking Tobacco: NeverSmokeless Tobacco: NeverAlcohol UseStandard Drinks/WeekCommentsYes0 (1 standard drink = 0.6 oz pure alcohol)Monthly or lessSex and Gender InformationValueDate RecordedSex Assigned at BirthNot on fileLegal TtvKmgh3408/16/2022 7:34 PM EDTGender IdentityNot on file Sexual OrientationNot on filedocumented as of this encounter Plan of Treatment DateTypeDepartmentCare Team (Latest Contact Info)Tioudaoeqnx67/30/2026 8:35 AM EDTOffice Visit [facility] [address] [place] [place] [address] Melody Manzano, SMOG TECHNICIAN-TEST RACK OPERATOR [address] [place] [place] [address] documented as of this encounter Visit Diagnoses Not on filedocumented in this encounter Care Teams Team MemberRelationshipSpecialtyStart DateEnd Date Gerry Barton DO [address] [place] [address] PCP - GeneralInternal Medicine08/04/23 Destiny Gant MD [address] [facility] [address] [place] [address] Referring PhysicianDermatology10/31/23 Gerry Nelson DO [address] [place] [address] Otolaryngology10/31/23documented as of this encounter
--- OUTSIDE RECORDS SUMMARY | 2025-04-06 08:29 | XMS_ITS | Encounter Summary ---
Author Organization [facility] Address [address] [place] [address] Care Team Providers Care Ship Washer Name Role Phone Gerry Barton DO Primary Care Provider [phone] Destiny Gant MD Unavailable [phone] Gerry Nelson DO Unavailable [phone] Encounter Details DateTypeDepartmentCare Team (Latest Contact Info)Dabfabysxst81/30/2025Travel Social History Tobacco UseTypesPacks/DayYears UsedDateSmoking Tobacco: NeverSmokeless Tobacco: NeverAlcohol UseStandard Drinks/WeekCommentsYes0 (1 standard drink = 0.6 oz pure alcohol)Monthly or lessSex and Gender InformationValueDate RecordedSex Assigned at BirthNot on fileLegal DedEemk1808/16/2022 7:34 PM EDTGender IdentityNot on file Sexual OrientationNot on filedocumented as of this encounter Plan of Treatment DateTypeDepartmentCare Team (Latest Contact Info)Xfthgbsalev22/30/2026 8:35 AM EDTOffice Visit [facility] [address] [facility] [place] [place] [address] Melody Manzano, VACUUM FORMING MACHINE OPERATOR-MORTGAGE COORDINATOR [address] [place] [address] documented as of this encounter Visit Diagnoses Not on filedocumented in this encounter Care Teams Team MemberRelationshipSpecialtyStart DateEnd Date Gerry Barton DO [address] [facility] [place] [address] PCP - GeneralInternal Medicine08/04/23 Destiny Gant MD [address] [place] [address] Referring PhysicianDermatology10/31/23 Gerry Nelson DO [address] [place] [address] Otolaryngology10/31/23documented as of this encounter
--- OUTSIDE RECORDS SUMMARY | 2025-04-06 08:29 | XMS_ITS | Clinical Summary ---
Author Organization [facility] Address [address] [facility] [address] Care Team Providers Care Subsea Engineer Name Role Phone Unavailable Primary Care Provider Unavailabl e Source Comments The following information is NOT included in Care Everywhere downloads:Psychiatric notes, ECG results, Cardiac Rehab notes, Pulmonary Function notes, data from [employer] (includes but not limited toPregnancy data,audiograms, eye exams, pre-surgical evaluation notes, well-child exam data).[facility] Allergies Active AllergyReactionsCriticalityNoted DateCommentsPiperacillin-Tazobactam In L9bIezeq75/21/2011 Medications No known medications Active Problems ProblemNoted DateDiagnosed DateHemorrhage of gastrointestinal tract, unspecified 11/24/2010 Social History Tobacco UseTypesPacks/DayYears UsedDateSmoking Tobacco: Never AssessedSex and Gender InformationValueDate RecordedSex Assigned at BirthNot on fileLegal Sex Male04/07/2012 1:16 PM ESTGender IdentityNot on fileSexual OrientationNot on file Last Filed Vital Signs Vital SignReadingTime TakenCommentsBlood Kpbexvry010/7506 11:40 AM EDT Ffyjk278711/24/2010 11:40 AM AOTTnrvtdimsej45.8 ??C (98.2 ??F)11/24/2010 11:40 AM EDTRespiratory Gxvq88511/24/2010 11:40 AM EDTOxygen Tltkvfdiuv62%11/24/2010 11:40 AM EDTInhaled Oxygen Concentration--Sfflya622.8 kg (242 lb)11/22/2010 8:23 PM GYSXsompi675 cm (6' 2 )11/22/2010 8:23 PM EDTBody Mass Index31.0711/22/2010 8:23 PM EDT Plan of Treatment Health MaintenanceDue DateLast DoneCommentsHepatitis C Uudwtfmc39/17/1966Tdap Iopipbm8406/20/1965Hepatitis A (HAV) Vaccine (optional start 19+ years)1966 Tetanus (Td or Tdap) Myzwmhk3306/20/1966Pneumococcal Vaccine(s) (50+ yrs) (1 of 1 - PCV)1997Shingles (RZV) Vaccine (1 of 2)1997Hepatitis B (HBV) Vaccine (optional start 60+ years)2007nnual Wellness Visit (G0438) 06/04/2011RSV vaccine (adult) (1 - 1-dose 75+ series)2022OVID-19 Vaccine (1 - 2024-26 season)2025Influenza Vaccine (#1)2025 [place] [address] [place] [address] Advance Directives * Full Code (Latest Code Status on File) Date ActivatedDate InactivatedComments11/22/2010 7:41 PM11/23/2010 7:01 PM
--- OUTSIDE RECORDS SUMMARY | 2025-04-06 08:30 | XMS_ITS | Clinical Summary ---
Author Organization [facility] Address [address] [place] [address] Care Team Providers Care Emergency Room Clerk Name Role Phone Gerry Barton DO Primary Care Provider [phone] Allergies Active AllergyReactionsCriticalityNoted UhbrAlphmpjiAfbaxvodsUvychnx15/22/2021 kidney killer Piperacillin-IxbnojvfljGwtgSwit54/13/2010 Pt developed severe rash after zosyn initiated Medications MedicationSigDispense QuantityRefillsLast FilledStart DateEnd DateStatus GLIMEPIRIDE 4 mg tablet Take 4 mg by mouth twice daily with meals.06/19/2012ctive TRADJENTA 5 mg tab 5 mg once daily.06/15/2013ctive carvedilol (COREG) 6.25 mg tablet Take 6.25 mg by mouth twice daily with meals.06/15/2014ctive lisinopril 2.5 mg tablet Take 2.5 mg by mouth once daily.Active aspirin, enteric coated (ASPIRIN, ENTERIC COATED) 81 mg EC tablet Take 81 mg by mouth once daily. Takes every other dayActive LEVEMIR FLEXTOUCH 100 unit/mL (3 mL) inpn injection 12 Units. 09/07/2015Active atorvastatin (LIPITOR) 10 mg tablet Take 10 mg by mouth once daily.Active Active Problems ProblemNoted DateDiagnosed DateCentral line mbryfmv33/20/2022Diabetes mellitus 05/02/2019 Overview (05/02/2019): A/p: -Q6 Accuchecks -ISS BPH (benign prostatic hyperplasia)09/21/20092227Hasvveikvui19/06/2010Drug-induced cgghlkxgcylx01/06/2010 Overview (09/07/2009): chemotherapy Fever09/07/2009NHL (non-Hodgkin's lymphoma)08/27/2009 Overview (09/22/2009): Day: Protocol(s): Preparative regimen: Bu/Cy/BALANCE RECESSER Mobilization regimen: BALANCE RECESSER/G Stem cell source: PSC CD34 cell dose (x10e6/kg): 3.64 Date of transplant: 09/29/09 Resolved Problems ProblemNoted DateDiagnosed DateResolved DateSBO (small [...] SCDs, SQH D/c planning: RNF Small bowel yttwzdmjnhm37 Immunizations ImmunizationAdministration DatesNext Dueinfluenza (HD-IIV3) vaccine, age 65+ yr, high dose, trivalent, PF (FLUZONE HIGH-DOSE)04/12/2017,03/15/2016,04/06/2015 influenza (HD-IIV4) vaccine, age 65+ yr, high dose, quadrivalent, PF (FLUZONE HIGH-DOSE)02/05/2020influenza (aIIV3) vaccine, age 65+ yr, trivalent, PF (FLUAD) 02/25/2021,03/26/2018zoster (RZV) vaccine, recombinant (SHINGRIX)08/17/2019, 06/01/2019zoster (ZVL) vaccine, live (ZOSTAVAX)04/10/2013 Social History Tobacco UseTypesPacks/DayYears UsedDateSmoking Tobacco: NeverSmokeless Tobacco: NeverAlcohol UseStandard Drinks/WeekCommentsNo0 (1 standard drink = 0.6 oz pure alcohol)PHQ-2AnswerDate RecordedPHQ-2 flmjx2481Area Deprivation Index AnswerDate RecordedNational Score (1-100), lower number is lower risk74 2022State Score (1-10), lower number is lower riskNot on file2022 Data from: https://www.neighborhoodatlas.medicine.[place].edu/. Last address used for uvfkjzhxyqm[address]Sex and Gender InformationValueDate RecordedSex Assigned at BirthNot on fileLegal MybGkzs48/02/2012 8:27 AM EST Gender IdentityNot on fileSexual OrientationNot on file Last Filed Vital Signs Vital SignReadingTime TakenCommentsBlood Dzcxyzsr141/5403/23/2021 1:05 PM EDT Jepev044003/23/2021 1:05 PM RQIQgpstziutzp92.3 ??C (97.4 ??F)03/23/2021 1:05 PM EDTRespiratory Fzba2824 1:05 PM EDTOxygen Fvgbejbypb78%03/23/2021 1:05 PM EDTInhaled Oxygen Concentration--Zonctv427.9 kg (233 lb 6.4 oz)03/23/2021 1:05 PM ZIBCkwyni419.4 cm (6' 0.99 )03/23/2021 1:05 PM EDTBody Mass Index30.8 03/23/2021 1:05 PM EDT Plan of Treatment Health MaintenanceDue DateLast DoneCommentsAnxiety Skfzoskrh74/17/1966Depression Rygixzjep90/17/1966Hepatitis C Bdhhkqsgt33/17/1966DTaP,Tdap,Td Vaccine (1 - Tdap)1966Pneumococcal Vaccine: 50+ (1 of 1 - PCV)1997RSV Vaccine (1 - 1-dose 75+ series)3Diabetes Mlnqzrreh17/20/130455, 05/03/2019, 05/02/2019, Additional history existsAdvance Directive Discussion 5Covid-19 Vaccine ( season)5002/23/2022, 09/13/2021, 01/17/2021, Additional history existsInfluenza Vaccine (#1)509/, 02/25/2021, 02/05/2020, Additional history existsShingrix VaccineCompleted 08/17/2019, 06/01/2019, 04/10/20139943JjnlqadqwqnDovddaqwoyuf79/22/2021Colorectal Cancer ScreeningDiscontinuedFecal Occult PavkaOjnoldpvdtim62/20/2021T ColonographyDiscontinuedCologuard (FIT-DNA)DiscontinuedSigmoidoscopyDiscontinued Procedures Procedure NamePriorityDate/TimeAssociated DiagnosisCommentsIMMUNOCHEMICAL FECAL OCCULT BLOOD UQAIRwfzcyb2021 1:57 PM EDT Non-Hodgkin's lymphoma, unspecified body region, unspecified non-Hodgkin lymphoma type (HCC) Anemia, unspecified type COMPREHENSIVE METABOLIC ZQWIMAqhxfde28/20/2021 1:05 PM EDT Follicular lymphoma, unspecified follicular lymphoma type, unspecified body region (HCC) from Last 3 Months or Most Recently Relevant to Health Maintenance Results * FECAL OCCULT BLOOD TEST (03/23/2021 1:57 PM EDT)ComponentValueRef RangeTest MethodAnalysis TimePerformed AtPathologist SignatureOccult Blood, Stool KjqjhstgKocfcsut25/01/2021 2:57 PM EDTCChillicothe VA Medical Center LaboratoriesComment: This test was developed and its performance characteristics determined by [facility]'s [facility] [place] ([facility]). It has not been cleared or approved by the FDA. [facility] is regulated under CLIA as qualified to perform high complexity testing. This test is used for clinical purposes. It should not be regarded as investigational or for research. Specimen (Source)Anatomical Location / LateralityCollection Method / Volume Collection TimeReceived TimeStool RandomSTOOL SPECIMEN / Xjcvhqw5403/23/2021 1:57 PM EDT106/04/2020 2:57 PM EDT Narrative Authorizing ProviderResult TypeResult StatusHolly Boni MESAN.CNPLABORATORY Final ResultPerforming OrganizationAddressCity/State/ZIP CodePhone Number [facility] [address] [place] [address] [facility] [address] [place] [address] * (ABNORMAL) COMP METABOLIC PANEL (03/23/2021 1:05 PM EDT)ComponentValueRef RangeTest MethodAnalysis TimePerformed AtPathologist SignatureProtein, Total 6.2(L)6.3 - 8.0 g/dL03/23/2021 1:42 PM EDTCSelect Medical [facility] Cancer CareAlbumin3.93.9 - 4.9 g/dL03/23/2021 1:42 PM [facility] Cancer CareCalcium8.98.5 - 10.2 mg/dL03/23/2021 1:42 PM [facility] Cancer CareBilirubin, Total0.30.2 - 1.3 mg/dL03/23/2021 1:42 PM [facility] CareAlkaline Dxnaugxlyei921(H)38 - 113 U/L1 1:42 PM [facility] Cancer JyezQXU84(L)14 - 40 U/L1 1:42 PM [facility] Cancer FdtkAsacnsa946 (H)74 - 99 mg/dL03/23/2021 1:42 PM [facility] Care Comment: The [place] Diabetes Association (ADA) provides guidance for cutoff [...] Standards of Medical Care in Diabetes 2016, [place] Diabetes Association. Diabetes Care. 2016.39(Suppl 1). BUN29(H)9 - 24 mg/dL03/23/2021 1:42 PM [facility] Cancer CareCreatinine2.54(H)0.73 - 1.22 mg/dL03/23/2021 1:42 PM [facility] Cancer InubNczbnp957(L)136 - 144 mmol/L1 1:42 PM [facility] Cancer CarePotassium4.73.7 - 5.1 mmol/L1 1:42 PM [facility] Cancer NikyDqabxoaf510(H)97 - 105 mmol/L 03/23/2021 1:42 PM EDTCSelect [facility] Cancer CpgcCX033(L)22 - 30 mmol/L1 1:42 PM [facility] Cancer CareAnion Gap7 (L)9 - 18 mmol/L1 1:42 PM [facility] HTG0106 - 54 U/L1 1:42 PM [facility] eGFR- Ubbsygws8064/20/2021 1:42 PM [facility] Cancer CareeGFR-All Other Races25.03/23/2021 1:42 PM [facility] HealthComment: eGFR (Estimated GFR) Units of measure: mL/min/1.73 [...] eGFR may not accurately reflect actual GFR. Specimen (Source)Anatomical Location / LateralityCollection Method / Volume Collection TimeReceived TimeBloodBLOOD SPECIMEN / Vkxbbtc5203/23/2021 1:05 PM EDT 03/23/2021 1:06 PM EDT Narrative Authorizing ProviderResult TypeResult StatusPaulo Kidd MDLABORATORYFinal ResultPerforming OrganizationAddressCity/State/ZIP CodePhone Number [facility] [address] [place] [address] [facility] [address] [place], [place] from Last 3 Months or Most Recently Relevant to Health Maintenance Insurance Advance Directives TypeDate RecordedPatient RepresentativeExplanationAdvance Directive(s)09/10/2009 10:04 PM Care Teams Team MemberRelationshipSpecialtyStart DateEnd Gerry Barton DO [address] [place] [address] PCP - [facility]09/07/09
--- OUTSIDE RECORDS SUMMARY | 2025-04-06 08:35 | XMS_ITS | CCD ---
Author Organization [facility] Care Team Providers Care Windows System Admin Name Role Phone Bernardo Gerry Primary Care Provider MARYJO KIDD Referring Unavailable BERNARDO, GERRY Mann Primary Care Unavailable KENDALL HONEYCUTT Attending Unavailable KINGS JONES Referring Unavailable BERNARDO, GERRY Mann Primary Care Unavailable YOLY BOSS Referring Unavailable BERNARDO, GERRY Mann Primary Care Unavailable GERRY CHANG Primary Care Physician Bernardo, Gerry Unavailable BERNARDO, DR CONDON Primary Care Unavailable BALL, DR CONDON Consulting Unavailable BALL, DR CONDON Admitting Unavailable BALL, DR CONDON Attending Unavailable GRILLIS ., DR BLADIMIR Mann Attending Unavaila ble GRILLIS ., DR BLADIMIR Mann Admitting Unavaila ble GRILLIS ., DR BLADIMIR Mann Consulting Unavaila ble BALL, DR CONDON Primary Care Unavailable ALGOMA, DR ALONZO Hernandez Consulting Unavailable BALL, DR [...] Unavailable BALL, DR CONDON Primary Care Unavailable DO Gerry Chang Primary Care Provider [phone] DO Gerry Nelson Attending Provider Gerry Chang MD Primary Care Provider Alfreda DOYLE, Destiny Leon Unavailable Gerry Nelson DO Unavailable [phone] TIMOTEO DUKES Attending Unavailab TIMOTEO Mendoza Admitting Unavailab Jenaro Arboleda Admitting Unavailable JADE, Jenaro Roberto Attending Unavailable JADE, Jenaro Roberto Attending Unavailable TIMOTEO DUKES Attending Unavailab le Gerry Chang DO Primary Care Provider [phone] Jenaro Hansen MD Attending Provider [phone] Vaishali Howell MD Attending Provider [phone] Aileen Dukes PA-C Attending Provider Bernardo , Gerry Attending Provider Bernardo TEJADA, Gerry Primary Care Provider Jenaro Hansen MD Attending Provider Bernardo DO, Gerry Primary Care Provider Vaishali Howell MD Attending Provider JADE, Jenaro R Attending Unavailable JADE, Jenaro R Attending Unavailable GERRY CHANG Referring Unavailable JADE, Jenaro R Attending Unavailable HANSEN, Jenaro R Attending Unavailable HANSEN, Jenaro R Admitting Unavailable JADE, Jenaro R Attending Unavailable Bernardo TEJADA, Gerry Primary Care Provider Lynda DOYLE, Vaishali Attending Provider [phone] Bernardo , Gerry Primary Care Provider Bernardo TEJADA, Gerry Attending Provider Guillermo Masterson DO Attending Provider Moise Walker MD Admit Provider Arya Peña DO Other Provider Nathan Jones MD Other Provider Damaso Arellano DO Other Provider Bryon Aguilar MD Attending Provider Guilelrmo Masterson Attending Unavailable Guillermo Masterson Admitting Unavailable Moise Walker Admitting Unavailable Bryon Aguilar Attending Unavailable Arya Peña Consulting Unavailable Bernardo Gerry Primary [facility] Unavailable Nathan Jones Consulting Unavailable Damaso Arellano Consulting Unavailable Gerry Chang DO E Primary Care Provider Bernardo TEJADA, Gerry Primary Care Provider Bernardo TEJADA, Gerry Attending Provider Cynthia Dasilva CMA Attending Provider UnavailASHLEY Moody Attending Unavailable Allergies Allergy ClassificationReported Allergen(s)Allergy TypeDate of OnsetReaction(s) Facility (20 sources)Ketorolac; Translations: [KETOROLAC]Drug Xqkhust83-31-7205Gcvwzpd, Unknown (qualifier value)[facility] (19 sources)Piperacillin / tazobactam; Translations: [PIPERACILLIN-TAZOBACTAM] Drug Dtuxzuu75-15-4388Hjyv, Eruption of skin (disorder)[facility] (14 sources)Vorinostat; Translations: [vorinostat]Drug Vbhnilr47-77-4317Ufwoans (qualifier value)[facility] (4 sources)Ketorolac; Translations: [Toradol][facility]ergyThe [facility] ([facility] source)Piperacillin / tazobactamDrug Xoiwnro04-39-4371[facility] (4 sources)tazobactam; Translations: [tazobactam]Drug Hboqvve77-54-2878[facility] (3 sources)patient allergy list reviewed by nurse or physiciaPropensity to adverse kuyevoshj31-39-1710Exzixrn:[employer] Other (3 sources)Allergies ReconciledPropensity to adverse reactionsIndiana University Health Bloomington HospitalConversion Sound Other (5 sources)KetorolacAllergy to ifcygkyat55-92-0910XyvwbjlHIYU Healthcare Work Phone: (5 sources)Ketorolac trometamolAllergy to dqjphmjki23-65-3597IlpchbeJNQN Healthcare (11 sources)PiperacillinDrug Gxkedgq93-88-5458Ckrpljh of SkinNOVT [facility] Comment on above:turned purple (5 sources)Piperacillin / tazobactamDrug Myqmyxo16-25-2750ZnqiYQZY Healthcare (5 sources)VorinostatDrug Olazxcb64-11-8349BrsotvoARHI [facility] Work Phone: (5 sources)Piperacillin Sod-Tazobactam SoDrug Nebfgmzlims34-26-3815JfjyvOWOR Healthcare (3 sources)tazobactam; Translations: [tazobactam]Drug Rbmmrdn25-89-4994Winsehm [facility] (1 source)KetorolacDrug Qdgcfnk58-54-4074YarmtncwcK[facility] (1 source)PiperacillinDrug Viwrzwd23-74-6795FxnbstzjgKettering Health [facility] Medications Current Medications MedicationDrug Class(es)DatesSig (Normalized)Sig (Original)Aspir-81 81 MG (14 sources)take 1 tablet by mouth three times weeklyAspir-81 81 MG 1 tablet Orally THREE TIMES A WEEK for 30 day(s) Activeaspirin 81 mg delayed release oral tablet (20 sources)Platelet Aggregation Inhibitor, Nonsteroidal Anti-inflammatory Drug Start: 57-87-1385tamk 1 tablet by mouth three times weeklyAspirin 81 mg tablet,delayed release (DR/EC) Active 81 MG PO 3 Times a week July 25, 2023 1:00am Complies with 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Start: 95-47-7989nmfj 81 mg by mouth once dailyaspirin 81 mg, Oral, Daily, Refills(s) 0 Start Date: 11/27/19 Status: Ordered Repeat number: 1Start: 03-68-7731rogqimj Refills(s) 0 Start Date: 11/27/19 Status: Orderedtake 1 tablet by mouth once daily, then take 1 tablet by mouth every other dayaspirin, enteric coated (ASPIRIN, ENTERIC COATED) 81 mg EC tablet Take 81 mg by mouth once daily. Takes every other day 0 ActiveComment on above:Take 81 mg by mouth once daily. Takes every other dayatorvastatin 10 mg oral tablet (20 sources)HMG-CoA Reductase InhibitorStart: 10-17-2023 End: 55-13-8811wgud 1 tablet by mouth once daily in the eveningAtorvastatin 10 mg tablet Active 0 .ROUTE .COMPLEX 90 3 October 02, 2024 7:43am TAKE 1 TABLET BY MOUTHEVERY EVENING Complies with 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Start: 11-27-2019 End: 69-61-0123gvwj 1 tablet by mouth once daily at bedtimeAtorvastatin 10 mg tablet Discontinued 10 MG PO Daily at bedtime July 25, 2023 1:00am October 17, 2023 1:21pmStart: 99-85-4143gkckezgmwmdg Oral, Daily, Refills(s) 0 Start Date: 11/27/19 Status: OrderedComment on above:Take 10 mg by mouth once daily. benazepril hydrochloride 10 mg oral tablet (5 sources)Angiotensin Converting Enzyme Inhibitortake 1 tablet by mouth in the morningbenazepril (Lotensin) 10 MG tablet Take 10 mg by mouth in the morning. Activecalcitriol 0.61782 mg oral capsule (20 sources)Vitamin D3 AnalogStart: 41-69-4359sxpd 1 capsule by mouth three times weeklyCalcitriol 0.25 mcg capsule Active 0.25 MCG PO 3 Times a week January 26, 2025 1:39pm Complies with 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Start: 12-29-2024 End: 27-21-5419Gyagjcisxq 0.25 mcg capsule Discontinued 0 .ROUTE .COMPLEX 36 1 December 29, 2024 10:27am January 26, 2025 1:39pm TAKE 1 CAPSLUE 3 TIMES A WEEK. ADMINISTER AFTER DIALYSIS ON DIALYSIS DAYSStart: 82-46-5129ekod 1 capsule by mouth once dailycalcitriol 0.25 mcg Cap 0.25 mcg = 1 cap(s), Oral, Daily Start Date: 10/06/24 Status: Ordered Repeat number: 1Start: 07-21-2024 End: 15-49-1754uhgi 1 capsule by mouth every weekCalcitriol 0.25 mcg capsule Discontinued 0.25 MCG PO 3 Times a week 40 1 July 21, 2024 1:00amJuly 2024 10:28am administer after dialysis on dialysis dayscalcium carbonate 1500 mg oral tablet (15 sources)Start: 23-30-4681yiya 1 tablet by mouth once dailycalcium (as carbonate) 600 mg oral tablet 600 mg = 1 tab(s), Oral, Daily Start Date: 10/06/24 Status:Ordered Repeat number: 1Start: 10-50-9908qpsb 1 tablet by mouth once dailyCalcium Carbonate 600 mg calcium (1,500 mg) tablet Active 600 MG PO Daily May 05, 2024 1:00amComplies with 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carvedilol 6.25 mg oral tablet (20 sources)alpha-Adrenergic Shira, beta-Adrenergic BlockerStart: 01-26-2025 take 1 tablet by mouth twice dailyCarvedilol 6.25 mg tablet Active 6.25 MG PO Twice daily January 26, 2025 1:37pm Complies with drugtherapyStart: 11-15-2023 End: 35-67-7855mixb 1 tablet by mouth twice dailyCarvedilol 6.25 mg tablet Discontinued 0 .ROUTE .COMPLEX 180 October 30, 2024 7:23am January 26, 2025 1:39pm TAKE 1 TABLET BY MOUTH TWICE A DAYStart: 21-57-3938gndexcrtsd Oral, Refills(s) 0 Start Date: 11/27/19 Status: OrderedStart: 06-15-2014 End: 88-64-0404uydy 1 tablet by mouth twice dailyCarvedilol 6.25 mg tablet Discontinued 6.25 MG PO Twice daily July 25, 2023 1:00am November 1:00pmComment on above:Take 6.25 mg by mouth twice daily with meals.Contour Next Test - (14 sources)Contour Next Test - USE 1 STRIP TO TEST BLOOD SUGAR AT HOME 3 TIMES A DAY for 30 Activedutasteride 0.5 mg oral capsule (11 sources)5-alpha Reductase Inhibitortake 1 capsule by mouth every twenty-four hoursAvodart 0.5 MG 1 capsule Orally Once a day for 30 day(s) Activegabapentin 100 mg oral capsule (20 sources)Anti-epileptic AgentStart: 50-50-4950irnl 1 capsule by mouth once daily in the eveningGabapentin 100 mg capsule Active 0 .ROUTE .COMPLEX 30 5 February 08, 2025 8:37am TAKE 1 CAPSULE BY MOUTH EVERY EVENING Complies with 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Start: 07-30-2024 End: 85-38-5658aqnb 1 capsule by mouth once daily in the eveningGabapentin 100 mg capsule Discontinued 100 MG PO Daily 30 30 5 August 28, 2024 5:03pm February 08, 2025 8:37am Take in evening dailyglimepiride 4 mg oral tablet (20 sources)SulfonylureaStart: 00-04-5122stfh 1 tablet by mouth twice daily Glimepiride 4 mg tablet Active 4 MG PO Twice daily January 26, 2025 1:38pm Complies with 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Start: 11-19-2023 End: 36-07-3918brya 2 tablets by mouth once daily in the morningGlimepiride 4 mg tablet Discontinued 0 .ROUTE .COMPLEX 180 3 November 23, 2024 5:12pm January 26, 2025 1:39pm TAKE 2 TABLETS BY MOUTH EVERY MORNING 30 MINUTES PRIOR TO BREAKFAST Start: 36-39-9942cnrx 4 mg by mouth once dailyGlimepiride Active 4 MG PO Daily July 25, 2023 12:00amStart: 51-78-0822koribdkjoud Oral, Daily, Refills(s) 0 Start Date: 11/27/19 Status: OrderedStart: 06-19-2012 End: 39-52-9926lsrk 1 tablet by mouth twice dailyGlimepiride 4 mg tablet Discontinued 4 MG PO Twice daily July 25, 2023 1:00am November 19, 2023 12:44pmGlimepiride 4 MG TAKE 2 TABLETS BY MOUTH EVERY MORNING 30 MINUTES PRIOR TO BREAKFAST for 90 ActiveComment on above:Take 4 mg by mouth twice daily with meals.3 ml insulin glargine 100 unt/ml pen injector (15 sources)Insulin AnalogStart: 68-00-7726ludzer 8 [IU] by subcutaneous injection once dailyBasaglar KwikPen 100 units/mL subcutaneous solution 8 unit(s), SubCutaneous, Daily Start Date: 10/06/24 Status: Ordered Repeat number: 1 Start: 68-27-6161fslkru 8 [IU] by subcutaneous injection once daily in the evening as neededInsulin Glargine (Lantus Solostar U-100 Insulin) 100 unit/mL (3 mL) insulin pen Active 0 SUBCUT Every evening as needed for RBS > 180 March 31, 2024 12:00am Type 2 diabetes mellitus with hyperglycemia Type 2 diabetes mellitus with hyperglycemia 8 units subcutaneously every evening PRN; Complies with 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Levemir FlexPen 100 UNIT/ML (2 sources)Start: 05-42-0958Oiyvwlt FlexPen 100 UNIT/ML 12 units Subcutaneous Once daily for 90 days Jul, Activelisinopril 2.5 mg oral tablet (20 sources)Angiotensin Converting Enzyme InhibitorStart: 92-54-2253whdp 1 tablet by mouth once dailyLisinopril 2.5 mg tablet Active 2.5 MG PO Daily January 26, 2025 1:38pm Complies with 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Start: 09-18-2023 End: 52-25-6745thzo 1 tablet by mouth once dailyLisinopril 2.5 mg tablet Discontinued 0 .ROUTE .COMPLEX 90 3 September 07, 2024 2:55pm January 26, 2025 1:39pm TAKE 1 TABLET BY MOUTH EVERY DAYStart: 11-27-2019 End: 98-60-7759wioy 1 tablet by mouth once daily at bedtimeLisinopril 2.5 mg tablet Discontinued 2.5 MG PO Daily at bedtime July 25, 2023 1:00am September 18, 2023 1:24pmStart: 29-71-5577lupvqljerj Oral, Daily, Refills(s) 0 Start Date: 11/27/19 Status: OrderedComment on above:Take 2.5 mg by mouth once daily. Magnesium Aspart,Citrate,Oxide 400 mg magnesium capsule (19 sources)Start: 74-22-5359sayv 1 capsule by mouth once dailyStart: 10-29-2024 take 1 capsule by mouth once dailyMagnesium Aspart,Citrate,Oxide 400 mg magnesium capsule Active 400 MG PO Daily October 29, 2024 9:15am Complies with 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Start: 83-15-7042phvo 1 capsule by mouth once dailyMagnesium Aspart,Citrate,Oxide 400 mg magnesium capsule Active 400 MG PO Daily October 29, 2024 9:15amStart: 07-30-2024 End: 61-57-7423Gkzvmwlio Aspart,Citrate,Oxide 400 mg magnesium capsule Discontinued MG PO July 30, 2024 1:00am October 29, 2024 9:15amStart: 90-76-0917Oybdoldhn Aspart,Citrate,Oxide 400 mg magnesium capsule Active MG PO July 30, 2024 12:00ammagnesium oxide 400 mg oral tablet (3 sources)Start: 47-10-7810xvax 1 tablet by mouth once dailymagnesium oxide 400 mg Tab 400 mg = 1 tab(s), Oral, Daily Start Date: 10/06/24 Status: Ordered Repeat number: 1Metformin & Diet Manage Prod 500 MG (11 sources)Metformin & Diet Manage Prod 500 MG as directed Orally TWICE DAILY Activemolnupiravir 200 MG Oral Capsule [Lagevrio] (2 sources)Start: 57-95-2853xpau 4 capsules by mouth every twelve hours Molnupiravir 200 MG 4 capsules Orally every 12 hrs for 5 days Feb, ActiveSITagliptin 25 mg oral tablet (19 sources)Dipeptidyl Peptidase 4 InhibitorStart: 47-67-4725diqz 1 tablet by mouth once dailySitagliptin Phosphate (Januvia) 25 mg tablet Active 0 .ROUTE .COMPLEX 30 February 02, 2025 4:35pm TAKE 1 TABLET BY MOUTH EVERY DAY Complies with 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Start: 07-07-2024 End: 48-03-7314udfl 1 tablet by mouth once dailySitagliptin Phosphate (Januvia) 25 mg tablet Discontinued 25 MG PO Daily July 07, 01654:00am February 02, 2025 4:35pm Completed/Discontinued Medications MedicationDrug Class(es)DatesSig (Normalized)Sig (Original)B-12 - up to 1000 mcg (20 sources)Start: 46-48-1818A-12 - up to 1000 mcg Jun, 1000 mcgStart: 66-08-4606K-12 - up to 1000 mcg Mar, 1000 mcgStart: 81-01-0808P-12 - up to 1000 mcg Feb, 1000 mcgStart: 11-65-7899M-12 - up to 1000 mcg Dec, 1000 mcgStart: 86-50-2856H-12 - up to 1000 mcg Nov, 1000 mcgStart: 78-68-0001X-12 - up to 1000 mcg Aug, 1000 mcgStart: 14-56-9915F-12 - up to 1000 mcg Jul, 1000 mcgStart: 83-91-4687E-12 - up to 1000 mcg Jun, 1000 mcgciprofloxacin 500 mg oral tablet (2 sources)Quinolone AntimicrobialStart: 77-30-2045nhgd 1 tablet by mouth once dailyCipro 500 mg Tab 500 mg = 1 tab(s), Oral, Daily, Take 1 tablet the day before the procedure and 1 tablet after the procedure, # 2 tab(s), Refills(s) 0, Pharmacy: [facility]/pharmacy #[id number], 187, cm, 258:21:00 EDT, Height/Length Dosing, 104.3, kg, 10/16/24 8:21:00 EDT, Weight Dosing Start Date: 10/16/24 Status: Ordered Quantity: 2.0 Unit: tab(s) Repeat number: 13 ml insulin detemir 100 unt/ml pen injector (20 sources)Insulin AnalogStart: 08-22-2023 End: 60-46-1851Zdrjkej Detemir U-100 (Levemir Flexpen) 100 unit/mL (3 mL) insulin pen Discontinued 12 UNIT SUBCUT Daily at bedtime August 22, 2023 12:00am March 31, 2024 10:04amStart: 40-46-7689Wdiuerq FlexPen 100 UNIT/ML 12 units Subcutaneous Once daily Jul, ActiveStart: 43-66-0629Podasyt SubCutaneous, Refills(s) 0 Start Date: 11/27/19 Status: OrderedStart: 09-07-2015 LEVEMIR FLEXTOUCH 100 unit/mL (3 mL) inpn injection 12 Units. 0 09/07/2015 Activeinject 6 [IU] by subcutaneous injection at bedtimeinsulin detemir (Levemir) 100 UNIT/ML injection Inject 6 Units under the skin at bedtime Active Comment on above:12 Units. Insulin Detemir U-100 (Levemir Flexpen) 100 unit/mL (3 mL) insulin pen (12 sources)Start: 08-22-2023 End: 99-67-8171Efgtwol Detemir U-100 (Levemir Flexpen) 100 unit/mL (3 mL) insulin pen Discontinued 12 UNIT SUBCUT Daily at bedtime August 22, 2023 12:00am March 31, 2024 10:04amStart: 08-22-2023 End: 81-15-8542Kvljcuq Detemir U-100 (Levemir Flexpen) 100 unit/mL (3 mL) insulin pen Discontinued 12 UNIT SUBCUT Daily at bedtime August 21, 2023 11:00pm March 31, 2024 9:04amStart: 29-72-4897Zvaswtf Detemir U-100 (Levemir Flexpen) 100 unit/mL (3 mL) insulin pen Active 12 UNIT SUBCUT Daily at bedtime August 22, 2023 12:00amStart: 00-28-8962fveqgc 10 [IU] by subcutaneous injection once daily at bedtimeInsulin Detemir U-100 (Levemir Flexpen) 100 unit/mL (3 mL) insulin pen Active 10 UNIT SUBCUT Daily at bedtime August 22, 2023 12:00amlinagliptin 5 mg oral tablet (20 sources)Dipeptidyl Peptidase 4 InhibitorStart: 07-21-2024 End: 85-43-1417kuhu 1 tablet by mouth once dailyLinagliptin (Tradjenta) 5 mg tablet Discontinued 5 MG PO Daily July 21, 2024 1:00am July 27, 2024 4:40pmStart: 02-28-2024 End: 96-68-0638jgef 1 tablet by mouth once dailyLinagliptin (Tradjenta) 5 mg tablet Discontinued 0 .ROUTE .COMPLEX 30 11 March 11, 2024 5:20pm July 07, 2024 10:21am TAKE 1 TABLET BY MOUTH EVERY DAYStart: 29-07-8674hfka 1 mg by mouth once dailyTradjenta mg, Oral, Daily, Refills(s) 0 Start Date: 11/27/19 Status: OrderedStart: 06-15-2013 End: 35-37-7895dsdv 1 tablet by mouth once daily in the morningLinagliptin (Tradjenta) 5 mg tablet Discontinued 5 MG PO Every morning July 25, 2023 1:00am February 28, 2024 2:23pmComment on above:5 mg once daily.traMADol hydrochloride 50 mg oral tablet (20 sources)Opioid AgonistStart: 11-22-2023 End: 91-73-1075xunm 1 tablet by mouth twice dailyTramadol 50 mg tablet Discontinued 50 MG PO Twice daily 28 14 0 November 23, 2023 4:25pm May 05, 2024 3:51pm Herpes zoster Zoster with other complicationsStart: 11-15-2023 End: 25-98-0096ynsb 1 tablet by mouth once daily at bedtimeTramadol 50 mg tablet Discontinued 50 MG PO Daily at bedtime 7 7 0 November 15, 2023 12:00am November 22, 2023 6:10pm Herpes zoster Zoster with other complicationsvalACYclovir 1000 mg oral tablet (17 sources)Herpesvirus Nucleoside Analog DNA Polymerase Inhibitor, Herpes Simplex Virus Nucleoside Analog DNA Polymerase Inhibitor, Herpes Zoster Virus Nucleoside Analog DNA Polymerase InhibitorStart: 11-02-2023 End: 22-79-2427Bxflcqkiuegj 1 gram tablet Discontinued 1000 MG PO Three times daily 21 7 0 November 02, 2023 12:00am November 28, 2023 8:54amStart: 11-02-2023 End: 44-95-3686hzsp 1000 mg by mouth three times dailyValacyclovir Discontinued 1000 MG PO Three times daily 21 7 November 02, 2023 12:00am November 28, 2023 8:54am Problems Active Problems Problem ClassificationProblemDateDocumented DateEpisodic/ChronicAcquired foot deformities (13 sources)Acquired hammer toe of left foot; Translations: [Other hammer toe(s) (acquired), left foot]Onset: 069495-66-7749ZbrqcppJybzr bronchitis (4 sources)Acute bronchitis; Translations: [Acute bronchitis, unspecified]Onset: 70-12-5908MhzvrskaVlfiblq disorders (6 sources)Posttraumatic stress disorder; Translations: [Posttraumatic stress disorder]Onset: 63-07-9194JekkelkZhgppqge of urinary tract (5 sources)Kidney stone; Translations: [Calculus of kidney]Onset: 04-14-2024 EpisodicChronic kidney disease (20 sources)Chronic kidney disease, unspecified; Translations: [Chronic kidney disease stage 3]Onset: 490109-77-7105GnvshgmHlhggtj ulcer of skin (17 sources)Non-pressure chronic ulcer of unspecified part of right lower leg limited to breakdown of skin; Translations: [Chronic ulcer of foot]Onset: 09-09-2018 Resolved: 944002-44-7322WqgchquOpbdmvgxnxy and hemorrhagic disorders (12 sources)Blood coagulation disorder; Translations: [Thrombocytopenic disorder]54-35-6226MajgeacDrucjayyurzz of device; implant or graft (4 sources)Other specified complication of vascular prosthetic devices, implants and grafts, initial encounter; Translations: [OTH COMP VASC PROSTH DEV GRAFT INIT]Onset: 99-92-1178QqtwdceUlatmujnmr and other anemia (9 sources)Acquired pancytopenia; Translations: [Other drug-induced pancytopenia]Onset: 373793-62-1317OywemakOukmgrjdrf and other anemia (20 sources)Pernicious anemia; Translations: [Vitamin B12 deficiency anemia due to intrinsic factor deficiency]Onset: 09-05-2023 Resolved: 176140-29-0644ArwrojcyVlmvfbqtys and other anemia (19 sources)Vitamin B12 deficiency anemia due to intrinsic factor deficiency; Translations: [Pernicious anemia]EpisodicDeficiency and other anemia (5 sources)Anemia; Translations: [Anemia, unspecified] Resolved: 373764-76-9189JnbgudozAqnrgcpz mellitus with complications (20 sources)Type 2 diabetes mellitus with diabetic chronic kidney disease; Translations: [Hyperglycemia due to type 2 diabetes mellitus]Onset: 06-26-2016 ChronicDiabetes mellitus without complication (20 sources)Diabetes mellitus; Translations: [Type 2 diabetes mellitus without complications]Onset: 416259-85-8609DcnavurUrtahmhm of white blood cells (16 sources)Neutropenia; Translations: [Neutropenia, unspecified]Onset: 780286-74-5256OsvdspbKnxohrziw of lipid metabolism (20 sources)Mixed hyperlipidemia; Translations: [Hyperlipidemia, unspecified] Onset: 11-23-2021 Resolved: 92-22-1013DoycixlGtqkilrqm hypertension (20 sources)Essential (primary) hypertension; Translations: [Essential hypertension]Onset: 11-23-2021 Resolved: 55-31-2995LnmauuhGecup and electrolyte disorders (17 sources)Hyperkalemia; Translations: [Hyperkalemia]16-45-1882Lhukotag Genitourinary symptoms and ill-defined conditions (20 sources)Proteinuria; Translations: [Asymptomatic microscopic hematuria] Onset: 279455-73-0193AksunuqpOoendomping of prostate (20 sources)Benign prostatic hyperplasia; Translations: [Benign prostatic hyperplasia without lower urinary tract symptoms]Onset: 41-02-8081Wcckhgw Hypertension with complications and secondary hypertension (20 sources)Hypertensive chronic kidney disease with stage 1 through stage 4 chronic kidney disease, or unspecified chronic kidney disease; Translations: [Chronic kidney disease due to hypertension]Onset: 573594-70-0061Hjpaoik Immunizations and screening for infectious disease (3 sources)Vaccination given; Translations: [Encounter for immunization]Episodic Intestinal obstruction without hernia (19 sources)Intestinal adhesions [bands], unspecified as to partial versus complete obstruction; Translations: [Intestinal adhesions [bands], with partial obstruction]Onset: 561945-59-9520DujpfaxiGirsis and vomiting (9 sources)Nausea and vomiting; Translations: [Nausea & vomiting]Episodic Neoplasms of unspecified nature or uncertain behavior (4 sources)Neoplasm of uncertain behavior of skin; Translations: [Neoplasm of uncertain behavior of skin]Onset: 631614-26-6939CpfchupeCfunecmxe; nephrosis; renal sclerosis (1 source)Atrophy of kidney; 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)]Onset: 93-01-8132UtfsphaXxb-Hodgkin`s lymphoma (20 sources)Non-Hodgkin's lymphoma (clinical); Translations: [Non-Hodgkin lymphoma, unspecified, unspecified site]Onset: 79-14-0773JujytilMbacnxxzocnlol (16 sources)Arthritis; Translations: [Osteoarthritis]Onset: ChronicOther aftercare (5 sources)Encounter for adjustment and management of vascular access device; Translations: [ENC ADJUSTMENT AND MANAGEMENT VAD]Onset: 94-98-3269BiuqzqgfDobnl aftercare (2 sources)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; Translations: [OTH 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 ROLL PRESS OPERATOR CURRENT DRUG THERAPY]Onset: 63-45-3005DtizkfwiVqmum aftercare (3 sources)Long-term current use of 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; Translations: [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]EpisodicOther aftercare (4 sources)H/O: high risk medication; Translations: [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]EpisodicOther and unspecified benign neoplasm (3 sources)Melanocytic nevus of right upper limb; Translations: [Melanocytic nevi of right upper limb, including shoulder]28-30-6026PfjnnssiZcoik and unspecified benign neoplasm (3 sources)Melanocytic nevus of left upper limb; Translations: [Melanocytic nevi of left upper limb, includingshoulder]81-66-9451OopjbcgeOpizv circulatory disease (3 sources)Spider nevus; Translations: [Nevus, non-neoplastic]06-38-5215Fipbbzwx Other connective tissue disease (1 source)Presence of unspecified orthopedic joint implant; Translations: [Presence of unspecified orthopedicjoint implant]ChronicOther connective tissue disease (5 sources)Artificial knee joint present; Translations: [Presence of artificial knee joint, bilateral]Onset: [id number] connective tissue disease (3 sources)H/O: musculoskeletal disease; Translations: [Personal history of other diseases of the musculoskeletal system and connective tissue]EpisodicOther connective tissue disease (5 sources)History of osteomyelitis; Translations: [Personal history of other diseases of the musculoskeletal system and connective tissue]EpisodicOther diseases of kidney and ureters (20 sources)Secondary hyperparathyroidism; Translations: [Secondary hyperparathyroidism of renal origin]82-75-3119UdpbujtExpwx diseases of kidney and ureters (6 sources)Secondary hyperparathyroidism of renal origin; Translations: [Secondary hyperparathyroidism (of renal origin)]62-99-2489YdcrvszDsoyd diseases of kidney and ureters (3 sources)Disorder of kidney and/or ureter; Translations: [Disorder of kidney and ureter, unspecified]EpisodicOther diseases of kidney and ureters (1 source)Acquired renal cyst without neoplastic change; Translations: [Cyst of kidney, acquired]Onset: 42-97-6145MkqhksgjWikja diseases of kidney and ureters (4 sources)Cyst of yoknav40-18-1516FzuxkhkgBttis diseases of kidney and ureters (13 sources)Acquired renal cystic disease; Translations: [Cyst of kidney, acquired]50-17-5101XltctxveBprxjtb on above:CT: 5.8cm renal cyst - 10/2024Other diseases of veins and lymphatics (3 sources)Venous ulcer of lower extremity due to chronic peripheral venous hypertension; Translations: [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]ChronicOther diseases of veins and lymphatics (20 sources)Peripheral venous insufficiency; Translations: [Venous insufficiency (chronic) (peripheral)]Onset: 09-05-2023 Resolved: 914892-36-7813CcgfonduHjbsm diseases of veins and lymphatics (12 sources)Venous insufficiency (chronic) (peripheral); Translations: [Venous (peripheral) insufficiency, unspecified]EpisodicOther injuries and conditions due to external causes (3 sources)History of fall; Translations: [History of falling]EpisodicOther nervous system disorders (5 sources)Chronic pain; Translations: [Other chronic pain]Onset: 08-22-2023 46-71-7347KohsfjqHpyvb non-epithelial cancer of skin (20 sources)Basal cell carcinoma of skin of other part of trunk; Translations: [Carcinoma in situ of skin of scalp and neck]Onset: 049486-95-0569Caacefqs Other non-traumatic joint disorders (4 sources)Charcot's joint, left ankle and foot; Translations: [CHARCOTS JOINT LEFT ANKLE AND FO]Onset: 00-27-1784OdwtvpoFgqcw non-traumatic joint disorders (11 sources)Arthropathy associated with a neurological disorder; Translations: [Charcot's joint, unspecified ankle and foot]ChronicOther non-traumatic joint disorders (5 sources)Joint ankylosis of the shoulder region; Translations: [Ankylosis, right shoulder]Onset: 368391-32-5209ZcbxcxvUrybr nutritional; endocrine; and metabolic disorders (3 sources)Obese class I; Translations: [Body mass index 33.0-33.9, adult]Onset: 72-49-0522YegzeatKljwy nutritional; endocrine; and metabolic disorders (3 sources)Simple obesity ; Translations: [Other obesity due to excess calories] Onset: 35-89-5278MdflbihImgfv nutritional; endocrine; and metabolic disorders (20 sources)Obesity; Translations: [Obesity, unspecified]43-54-5510HbwhklbWjdwh nutritional; endocrine; and metabolic disorders (1 source)Other obesity due to excess caloriesChronicOther nutritional; endocrine; and metabolic disorders (1 source)Body mass index (BMI) 30.0-30.9, adultChronicOther nutritional; endocrine; and metabolic disorders (3 sources)Obesity, unspecified; Translations: [Obesity, unspecified]03-31-2024 ChronicOther nutritional; endocrine; and metabolic disorders (20 sources)Hypomagnesemia; Translations: [Hypomagnesemia]18-18-3394OmdbsqzFqqvd nutritional; endocrine; and metabolic disorders (3 sources)Hypomagnesemia; Translations: [Disorders of magnesium metabolism] 88-71-8414KrxaphsNokof screening for suspected conditions (not mental disorders or infectious disease) (20 sources)Raised prostate specific antigen; Translations: [Elevated prostate specific antigen [PSA]]Onset: 05-57-6821YkneobixImsqupa on above:PSA: 2.93 - 02/2022, 2.64 - 03/2023, .63- SA: 2.93 - 02/2022, 2.64 - 03/2023, .63- 03/2024, 3.51 - 09/2024PSA: 2.93 - 02/2022, 2.64 - 03/2023, .63- 03/2024, 3.01 - 09/2024Other skin disorders (5 sources)Localized swelling, mass and lump, trunk; Translations: [LOCALIZD SWELLING MASS AND LUMP TRUNK]Onset: 76-24-1544AewhamuuGpjdl skin disorders (3 sources)Localized swelling, mass and lump, trunk; Translations: [Localized swelling, mass and lump, trunk]EpisodicOther skin disorders (4 sources)Chest swelling; Translations: [Localized swelling, mass and lump, trunk]EpisodicOther skin disorders (3 sources)Seborrheic keratosis; Translations: [Other seborrheic keratosis] 42-28-8489NrnoidccHtwsz skin disorders (3 sources)Actinic keratosis; Translations: [Actinic keratosis]03-21-2024 EpisodicOther skin disorders (1 source)Lentiginosis; Translations: [Other melanin hyperpigmentation] 86-60-3031CgjgacvwRubhdrukyh and visceral atherosclerosis (3 sources)Atherosclerosis of [place] arteries of the extremities; Translations: [Atherosclerosis of [place] arteries of the extremities, unspecified]Chronic Residual codes; unclassified (1 source)Other transplanted organ and tissue status; Translations: [[facility] TRANSPLANTED ORGAN AND TISSUE STS]Onset: 16-50-0417IekxtjtUlsrbfxd codes; unclassified (1 source)Bone marrow transplant status; Translations: [BONE MARROW TRANSPLANT STATUS]Onset: 73-87-1908PwjcdffLousacqr codes; unclassified (3 sources)Preventive procedure; Translations: [Encounter for other specified prophylactic measures]EpisodicUnclassified (5 sources)Asymptomatic microscopic gxhsiltrb89-27-1256Llzjfdptizek (3 sources)Long-term current use of 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; Translations: [Long-term (current) use of other medications]Onset: 42-98-3615Ruytxsfnzdxa (4 sources)Atrophy of left -83-9261Dorsnqjhwkmw (4 sources)Post discharge follow upUrinary tract infections (7 sources)Urinary tract infectious disease; Translations: [Urinary tract infection, site not specified]Onset: 314513-98-7550YpcdyrwfDbbll infection (20 sources)Herpes zoster; Translations: [Zoster without complications] 21-18-3556Gkvrvcyx Past or Other Problems Problem ClassificationProblemDateDocumented DateEpisodic/ChronicAcquired foot deformities (8 sources)Talipes planus; Translations: [Flat foot [pes 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), left foot]Onset: 519065-60-7356XpcvcztrClmloukyszf and hemorrhagic disorders (5 sources)Blood coagulation disorder; Translations: [Hemorrhagic condition, unspecified]Onset: 124067-68-4703AmsxzqdgWywqeuikhnms of device; implant or graft (11 sources)Blocked central line; Translations: [Other mechanical complication of infusion catheter, initial encounter]Onset: 62-61-7030CkukelixQvkdqgbq mellitus without complication (10 sources)Glycosuria; Translations: [Glycosuria]Onset: EpisodicFever of unknown origin (9 sources)Fever; Translations: [Fever, unspecified]Onset: EpisodicGastrointestinal hemorrhage (5 sources)Gastrointestinal hemorrhage; Translations: [Gastrointestinal hemorrhage, unspecified]Onset: 293791-11-6435RjpsdcbmWni-Xolqesv`s lymphoma (4 sources)Personal history of non-Hodgkin lymphomas; Translations: [History of malignant lymphoma]Onset: 72-21-4559FkaczabpCrdh wounds of head; neck; and trunk (3 sources)Laceration with foreign body of scalp, subsequent encounter; Translations: [Laceration with foreignbody of scalp, subsequent encounter]Onset: 90-73-3052MpwibkhoEmiyw aftercare (1 source)halfway (current) use of oral hypoglycemic drugs; Translations: [[employer] USE ORAL HYPOGLYCEMIC DX]Onset: 03-77-1410PwcbhivcVhfkq connective tissue disease (3 sources)Pain in left foot; Translations: [Pain in left foot] Resolved: 31-98-7805OjdounraAjidq connective tissue disease (3 sources)Tear of right rotator cuff; Translations: [Unspecified rotator cuff tear or rupture of right shoulder, not specified as traumatic]Onset: 02-20-2017 EpisodicOther eye disorders (3 sources)Vitreous degeneration; Translations: [Vitreous degeneration, unspecified eye] Resolved: 79-05-0335WragsvhJotpk non-traumatic joint disorders (3 sources)Arthralgia of the ankle and/or foot; Translations: [Pain in left ankle and joints of left foot] Resolved: 48-06-8748YnywioqsYonlk non-traumatic joint disorders (3 sources)Shoulder joint pain; Translations: [Pain in joint, shoulder region] Onset: 03-15-8860AenbebhbXemaf non-traumatic joint disorders (5 sources)Pain in right shoulder; Translations: [Pain in joint, shoulder region]Onset: 148243-56-5516SnedyjnlEmyks nutritional; endocrine; and metabolic disorders (20 sources)Body mass index 30+ - obesity; Translations: [Body mass index 30.0- 30.9, adult]Onset: 06-04-1957 Resolved: 942475-92-1240SwxuumzLzntk nutritional; endocrine; and metabolic disorders (16 sources)Obesity caused by energy imbalance; Translations: [Other obesity due to excess calories]Onset: 09-05-2023 Resolved: 467372-86-5821OdnrznoTpvhw skin disorders (3 sources)Disorder of the skin and subcutaneous tissue, unspecified; Translations: [DISORDER SKIN AND SUBQ TISSUE UNS]Onset: 40-94-9896AzgrwppxJkrez upper respiratory infections (3 sources)Acute sinusitis; Translations: [Acute sinusitis, unspecified]Onset: 25-09-0473MbfccdrwYbasmyjk codes; unclassified (1 source)Acquired absence of other specified parts of digestive tract; Translations: [ACQ ABSENCE OTH PART DIGESTV TRACT]Onset: 03-27-7553UvclgmhnRacoc infection (5 sources)COVID-19; Translations: [COVID-19]Onset: 05-17-2022 Results Test NameValueInterpretationReference RangeFacilityCryotherapy, skin lesionon 28-85-2647FEZB HealthcareLesion biopsyon 05-62-8018Hrnr of biopsy: tangential Informed consent: discussed and [...] Photo taken Amount of lidocaine used: 0.5 [facility]Type of biopsy: tangential Informed consent: discussed and [...] Photo taken Amount of lidocaine used: 0.3 [facility]burgBasic Metabolic Panelon 94-70-8219Bozwnghnpw Clr Calc Gmcovkgl45.06NormLarkin Community Hospital Physician GroupComment on above:Result Comment: PERFORMED BY: [place] [address] PATHOLOGIST ROTOR CASTING MACHINE OPERATOR HERMILO FOLEY M.D.Performed By: #### CUU #### [place] [address] USAGFR/1.73 sq M.predicted MDRD (S/P/Bld) [Vol rate/Area] 21.338 mL/min/{1.73_m2}NormalThe [facility]osher Memorial Hospital Physician GroupComment on above: Performed By: #### CUU #### [place] [id number] USABasophils [#/volume] in Blood by Automated countOrdered By: Moise Walker on 57-47-0686Mjcokntsq (Bld) [#/Vol]0.0 10*3/uL0.0-0.2 [facility] MemorialComment on above:Result Comment: PERFORMED BY: [address] [place] [address] PATHOLOGIST ROTOR CASTING MACHINE OPERATOR HERMILO FOLEY M.D.Performed By: #### CUU #### [facility] [address] [place] [address] USABasophils/100 leukocytes in Blood by Automated count Ordered By: Moise Walker on 05-22-8793Uxxzggcuc/100 WBC (Bld)0.2 %. [facility] MemorialComment on above:Performed By: #### CUU #### [facility] [address] [place] [address] USACalcium [Mass/volume] in Serum or PlasmaOrdered By: Moise Walker on 15-90-5500Psbomtw [Mass/Vol]8.3 mg/dLLow8.6-10.3FFostoria City HospitalComment on above:Performed By: #### CUU #### [place] [address] USACapillary blood glucose measurement by glucometer (mass/volume)Ordered By: Bryon Aguilar on 98-98-0665Bxkdbqw [Mass/Vol]217 mg/dL [facility] MemorialComment on above:Random Glucose Reference Range is dependent on time and content of last meal. Glucose of more than 200 mg/dL in a nonstressed, ambulatory subject supports the diagnosis of Diabetes Mellitus.Result Comment: Random Glucose Reference Range is dependent on time and content of last meal. Glucose of more than 200 mg/dL in a nonstressed, ambulatory subject supports the diagnosis of Diabetes Mellitus. PERFORMED BY: [address] [address] PATHOLOGIST ROTOR CASTING MACHINE OPERATOR HERMILO FOLEY M.D.Performed By: #### GLULS #### Point of Care testing ,Carbon dioxide, total [Moles/volume] in Serum or PlasmaOrdered By: Moise Walker on 35-98-0905DI0 [Moles/Vol]26.4 mmol/L21.0-31.0[facility] MemorialComment on above:Performed By: #### CUU #### [place] [address] USAChloride [Moles/volume] in Serum or PlasmaOrdered By: Moise Walker on 62-30-2907Hipbwsbm [Moles/Vol]105 mmol/K95-754RnhlutsenKettering Health Greene MemorialComment on above:Performed By: #### CUU #### [place] [address] USAComplete Blood Count Auto Diffon 39-09-9125Glvj Corpuscular HGB Conc35.0 g/oPVntcwv65.5-35.6The [facility] Physician GroupComment on above:Performed By: #### CUU #### [place] [address] USANRBC%0.1 /100{WBC}Normal0-0.5[facility] Comment on above:Performed By: #### CUU #### [place] [address] USAWhite Blood Count7.1 [CFU]/mLNormal4.1-10.5The [facility] Physician GroupComment on above:Performed By: #### CUU #### [place] [address] USACreatinine [Mass/volume] in Serum or PlasmaOrdered By: Moise Walker on 92-63-2933Nhzkmmxlxs [Mass/Vol]2.93 mg/dLHigh0.70-1.30 [facility] MemorialComment on above:Performed By: #### CUU #### [place] [address] USAEosinophils [#/volume] in Blood by Automated countOrdered By: Moise Walker on 86-74-6083Myzwdpnfjar (Bld) [#/Vol]0.1 10*3/uL0.0-0.45 [facility] MemorialComment on above:Performed By: #### CUU #### [place] [address] USAEosinophils/100 leukocytes in Blood by Automated count Ordered By: Moise Walker on 70-94-6273Aqnqjsyormt/100 WBC (Bld)1.8 %. [facility] MemorialComment on above:Performed By: #### CUU #### [place] [address] USAErythrocyte distribution width [Ratio] by Automated count Ordered By: Moise Walker on 11-37-9612Rnbaybvxjhw distribution width (RBC) [Ratio]12.8 %12.0-14.8[facility] MemorialComment on above: Performed By: #### CUU #### [place] [address] USAErythrocytes [#/volume] in Blood by Automated countOrdered By: Moise Walker on 87-06-4953VVW (Bld) [#/Vol]3.54 10*6/uLLow3.90-5.60 [facility] MemorialComment on above:Performed By: #### CUU #### [place] [address] USAGlomerular filtration rate [Volume Rate/Area] in Serum, Plasma or Blood by CreatinineOrdered By: Moise Walker on 03-25-2025 Glomerular filtration rate [Volume Rate/Area] in Serum, Plasma or Blood by Gmdmopszxz01.338 mL/MinKettering Health Greene MemorialGlucose Poct Glucometers on 79-07-6684Rrmnpvj [Mass/Vol]118 mg/dLNoAtrium Health Harrisburg Physician Group Comment on above:Result Comment: Random Glucose Reference Range is dependent on time and content of last meal. Glucose of more than 200 mg/dL in a nonstressed, ambulatory subject supports the diagnosis of Diabetes Mellitus. PERFORMED BY: [place] [address] PATHOLOGIST ROTOR CASTING MACHINE OPERATOR HERMILO FOLEY M.D.Performed By: #### CUU #### [facility] [address] [place] [address] USAGlucose [Mass/Vol]142 mg/dLNoAtrium Health Harrisburg Physician GroupComment on above:Result Comment: Random Glucose Reference Range is dependent on time and content of last meal. Glucose of more than 200 mg/dL in a nonstressed, ambulatory subject supports the diagnosis of Diabetes Mellitus. PERFORMED BY: [place] [address] PATHOLOGIST ROTOR CASTING MACHINE OPERATOR HERMILO FOLEY M.D.Performed By: #### GLULS #### Point of Care testing ,Glucose [Mass/volume] in Serum or PlasmaOrdered By: Moise Walker on 43-27-8120Vbrdkda [Mass/Vol]116 mg/kSShtg35-721FlgcheslhKettering Health Greene Memorial Comment on above:Delta: 216 on 03/24/25-0510ADA recommended reference rangeRandom Glucose Reference Range is dependent on time and content of last meal. Glucose of more than 200 mg/dL in a nonstressed, ambulatory subject supports the diagnosis of Diabetes Mellitus.Result Comment: Random Glucose Reference Range is dependent on time and content of last meal. Glucose of more than 200 mg/dL in a nonstressed, ambulatory subject supports the diagnosis of Diabetes Mellitus. ADA recommended reference rangePerformed By: #### CUU #### [place] [address] USAHematocrit [Volume Fraction] of Blood by Automated count Ordered By: Moise Walker on 33-53-5607Ijxuohxsqm (Bld) [Volume fraction] 33.7 %Low38.8-50.0[facility] MemorialComment on above:Performed By: #### CUU #### [place] [address] USAHemoglobin [Mass/volume] in BloodOrdered By: Moise Walker on 44-72-8776Rqzcqxrdvd (Bld) [Mass/Vol]11.8 g/dLLow13.0-17.0 [facility] MemorialComment on above:Performed By: #### CUU #### [place] [address] USALeukocytes [#/volume] corrected for nucleated erythrocytes in Blood by Automated counOrdered By: Moise Walker on 12-91-8202NXX corrected for nucl RBC Auto (Bld) [#/Vol]7.1 10*3/uL4.1-10.5FFostoria City HospitalLeukocytes [#/volume] in Blood by Automated countOrdered By: Moise Walker on 42-82-9295VRV (Bld) [#/Vol]7.1 10*3/uL4.1-10.5FFostoria City HospitalComment on above:Performed By: #### CUU #### [facility] [address] [place] [address] USALymphocytes [#/volume] in Blood by Automated countOrdered By: Moise Walker on 02-06-2663Opsmozebyog (Bld) [#/Vol]0.9 10*3/uLLow 1.00-4.8[facility] MemorialComment on above:Performed By: #### CUU #### [facility] [address] [place] [address] USALymphocytes/100 leukocytes in Blood by Automated count Ordered By: Moise Walker on 77-72-2009Couacumarhu/100 WBC (Bld)12.4 %. [facility] MemorialComment on above:Performed By: #### CUU #### [facility] [address] [Entitic mass] by Automated countOrdered By: Moise Walker on 88-68-0751PSG (RBC) [Entitic mass]33.3 pg27.5-35.2FFostoria City HospitalComment on above:Performed By: #### CUU #### [facility] [address] Auto (RBC) [Mass/Vol]Ordered By: Moise Walker on 75-93-9895TEVP (RBC) [Mass/Vol]35.0 g/dL32.5-35.6FFostoria City HospitalMCV [Entitic volume] by Automated countOrdered By: Moise Walker on 94-92-7374OCU (RBC) [Entitic vol]95.0 fL83.5-101[facility] MemorialComment on above:Performed By: #### CUU #### [facility] [address] [place] [address] USAMonocytes [#/volume] in Blood by Automated countOrdered By: Moise Walker on 77-24-1538Yrwgmffhk (Bld) [#/Vol]0.6 10*3/uL0.0-0.8 [facility] MemorialComment on above:Performed By: #### CUU #### [place] [address] USAMonocytes/100 leukocytes in Blood by Automated count Ordered By: Moise Walker on 76-15-8488Kijletmum/100 WBC (Bld)9.0 %. [facility] MemorialComment on above:Performed By: #### CUU #### [place] [address] USANeutrophils [#/volume] in Blood by Automated countOrdered By: Moise Walker on 00-09-0858Ezuzdssrpbr (Bld) [#/Vol]5.5 10*3/uL1.8-7.7 [facility] MemorialComment on above:Performed By: #### CUU #### [place] [address] USANeutrophils/100 leukocytes in Blood by Automated count Ordered By: Moise Walker on 03-04-0515Ogpzbccfinz/100 WBC (Bld)76.6 %. [facility] MemorialComment on above:Performed By: #### CUU #### [place] [address] USANo Panel InformationOrdered By: Moise Walker on 95-95-8721Efojoesj Creatinine Clearance (Chem27.06[facility] MemorialNucleated erythrocytes [Presence] in Blood by Automated countOrdered By: Moise Walker on 81-87-9026Qlvvfvsiz RBC Auto Ql (Bld)0.1 /100{WBC}0-0.5 [facility] MemorialPlatelet mean volume [Entitic volume] in Blood by Automated countOrdered By: Moise Walker on 01-89-6752Ejfedsgy mean volume (Bld) [Entitic vol]7.1 fL6.6-10.1FFostoria City HospitalComment on above:Performed By: #### CUU #### [facility] [address] [place] [address] USAPlatelets [#/volume] in Blood by Automated countOrdered By: Moise Walker on 33-51-2883Oobeghscg (Bld) [#/Vol]150 10*3/bI533-837 [facility] MemorialComment on above:Performed By: #### CUU #### [place] [address] USAPotassium [Moles/volume] in Serum or PlasmaOrdered By: Moise Walker on 76-65-8140Hjxypkrpw [Moles/Vol]4.5 mmol/L3.5-5.1FFostoria City HospitalComment on above:Performed By: #### CUU #### [facility] [address] [place] [address] USASerum or plasma anion gap determinationOrdered By: Moise Walker on 63-76-2084Doiic gap [Moles/Vol]10.1 mmol/L6.0-15.0[facility] MemorialComment on above:Performed By: #### CUU #### [facility] [address] [place] [address] USASodium [Moles/volume] in Serum or PlasmaOrdered By: Moise Walker on 69-25-0654Kkjczv [Moles/Vol]137 mmol/N497-911CwazylueeKettering Health Greene MemorialComment on above:Performed By: #### CUU #### [facility] [address] [place] [address] USAUrea nitrogen [Mass/volume] in Serum or PlasmaOrdered By: Moise Walker on 67-81-4631Eqkv nitrogen [Mass/Vol]39 mg/dLHigh7-25Firelands Regional Medical CenterComment on above:Performed By: #### CUU #### [place] [id number] USAX-ray reportOrdered By: Guillermo Salazar on 59-53-0147Muscj reportPREMIER HEALTH ATR[facility]UM [place] [address] XRay Report Signed Patient: Eugenio Crews MR#: [id number] : 1945 Acct:[id number] Age/Sex: 79 / M ADM Date: 5 Loc: 4N Room: [address] [place] [address] Type: ADM IN Attending Dr: Bryon Aguilar [...] Salazar M.D. 03/25/2025 8:46 AM Dictation Location: [place] [address] Transcribed By: [facility] 03/25/2546 Dictated By: Guillermo Salazar DO 03/25/25 0845 Signed By: 03/25/25 0846 [facility] MemorialXR abdomen min 2Von 98-11-6766YE abdomen min 2V [facility] Main [place] [address] [place], [place] [id number] XRay Report Signed Patient: Eugenio Crews MR#: [id number] : 1945 Acct:[id number] Age/Sex: 79 / M ADM Date: 03/24/25 Loc: 4N Room: [address] [place] [address] Type: ADM IN Attending Dr: Bryon Aguilar [...] Salazar M.D. 03/25/2025 8:46 AM Dictation Location: [facility]--16 Transcribed By: [facility] 03/25/2546 Dictated By: Guillermo Salazar DO 03/25/2545 Signed By: 03/25/2546[facility] Physician GroupBasic Metabolic Panelon 41-75-0653Hzbuflxtau Clr Calc Oathkjnj86.37NoAtrium Health [facility]burg Physician Group Comment on above:Result Comment: PERFORMED BY: [place] [address] PATHOLOGIST ROTOR CASTING MACHINE OPERATOR HERMILO FOLEY M.D.Performed By: #### BMP #### [facility] [address] [place] [address] USAGFR/1.73 sq M.predicted MDRD (S/P/Bld) [Vol rate/Area] 17.912 mL/min/{1.73_m2}NormalThe [facility] Hospital Physician GroupComment on above: Performed By: #### BMP #### [facility] [address] [place] [address] USACalcium [Mass/volume] in Serum or PlasmaOrdered By: Moise Walker on 55-76-2568Mfoxjjf [Mass/Vol]8.3 mg/dLLow8.6-10.3FFostoria City HospitalComment on above:Performed By: #### BMP #### [facility] [address] [place], [place] [address] USACapillary blood glucose measurement by glucometer (mass/volume)Ordered By: Bryon Aguilar on 82-68-7112Dencclk [Mass/Vol]204 mg/dL NormalKettering Health Greene MemorialComment on above:Random Glucose Reference Range is dependent on time and content of last meal. Glucose of more than 200 mg/dL in a nonstressed, ambulatory subject supports the diagnosis of Diabetes Mellitus.Result Comment: Random Glucose Reference Range is dependent on time and content of last meal. Glucose of more than 200 mg/dL in a nonstressed, ambulatory subject supports the diagnosis of Diabetes Mellitus. PERFORMED BY: [place] [address] PATHOLOGIST ROTOR CASTING MACHINE OPERATOR HERMILO FOLEY M.D.Performed By: #### GLULS #### Point of Care testing ,Carbon dioxide, total [Moles/volume] in Serum or PlasmaOrdered By: Moise Walker on 26-86-8739XW2 [Moles/Vol]22.2 mmol/MCpviqw78.0-31.0[facility] MemorialComment on above:Performed By: #### BMP #### [facility] [address] [place] [address] USAChloride [Moles/volume] in Serum or PlasmaOrdered By: Moise Walker on 55-27-2541Szqlbsrs [Moles/Vol]105 mmol/BOagqzf30-833 [facility] MemorialComment on above:Performed By: #### BMP #### [facility] [address] [place], [place] [address] USACreatinine [Mass/volume] in Serum or PlasmaOrdered By: Moise Walker on 40-64-8392Lughgvxsvb [Mass/Vol]3.39 mg/dLHigh0.70-1.30 [facility] MemorialComment on above:Performed By: #### BMP #### [facility] [address] [place] [address] USAGlomerular filtration rate [Volume Rate/Area] in Serum, Plasma or Blood by CreatinineOrdered By: Moise Walker on 03-24-2025 Glomerular filtration rate [Volume Rate/Area] in Serum, Plasma or Blood by Knhwavudwu63.912 mL/MinKettering Health Greene MemorialGlucose Poct Glucometers on 69-90-9732Mrxxsxb [Mass/Vol]157 mg/dLAdventHealth Orlando Physician Group Comment on above:Result Comment: Random Glucose Reference Range is dependent on time and content of last meal. Glucose of more than 200 mg/dL in a nonstressed, ambulatory subject supports the diagnosis of Diabetes Mellitus. PERFORMED BY: [place] [id number] PATHOLOGIST ROTOR CASTING MACHINE OPERATOR HERMILO FOLEY M.D.Performed By: #### GLULS #### Point of Care testing ,Glucose [Mass/Vol]136 mg/dLNoAtrium Health Harrisburg Physician GroupComment on above: Result Comment: Random Glucose Reference Range is dependent on time and content of last meal. Glucose of more than 200 mg/dL in a nonstressed, ambulatory subject supports the diagnosis of Diabetes Mellitus. PERFORMED BY: [address] [address] PATHOLOGIST ROTOR CASTING MACHINE OPERATOR HERMILO FOLEY M.D.Performed By: #### GLULS #### Point of Care testing ,Glucose [Mass/Vol]178 mg/dLAdventHealth Orlando Physician GroupComment on above: Result Comment: Random Glucose Reference Range is dependent on time and content of last meal. Glucose of more than 200 mg/dL in a nonstressed, ambulatory subject supports the diagnosis of Diabetes Mellitus. PERFORMED BY: [address] [address] PATHOLOGIST ROTOR CASTING MACHINE OPERATOR HERMILO FOLEY M.D.Performed By: #### GLULS #### Point of Care testing ,Glucose [Mass/Vol]223 mg/dLAdventHealth Orlando Physician GroupComment on above: Result Comment: Random Glucose Reference Range is dependent on time and content of last meal. Glucose of more than 200 mg/dL in a nonstressed, ambulatory subject supports the diagnosis of Diabetes Mellitus. PERFORMED BY: [address] [address] PATHOLOGIST ROTOR CASTING MACHINE OPERATOR HERMILO FOLEY M.D.Performed By: #### GLULS #### Point of Care testing ,Glucose [Mass/volume] in Serum or PlasmaOrdered By: Moise Walker on 77-92-1057Fujtkyo [Mass/Vol]216 mg/qYJpkz68-589LgcghqdnvKettering Health Greene Memorial Comment on above:ADA recommended reference rangeRandom Glucose Reference Range is dependent on time and content of last meal. Glucose of more than 200 mg/dL in a nonstressed, ambulatory subject supports the diagnosisof Diabetes Mellitus. Result Comment: Random Glucose Reference Range is dependent on time and content of last meal. Glucose of more than 200 mg/dL in a nonstressed, ambulatory subject supports the diagnosis of Diabetes Mellitus. ADA recommended reference rangePerformed By: #### BMP #### [facility] [address] [place] [address] USANo Panel InformationOrdered By: Moise Walker on 78-99-5006Gjncyvzf Creatinine Clearance (Chem23.37[facility] MemorialPotassium [Moles/volume] in Serum or PlasmaOrdered By: Moise Walker on 23-48-2733Spjktjfcx [Moles/Vol]5.8 mmol/LHigh3.5-5.1FFostoria City HospitalComment on above:Performed By: #### BMP #### [facility] [address] [place] [address] USASerum or plasma anion gap determinationOrdered By: Moise Walker on 96-58-2262Rntqw gap [Moles/Vol]12.6 mmol/LNormal6.0-15.0[facility] MemorialComment on above:Performed By: #### BMP #### [facility] [address] [place] [id number] USASodium [Moles/volume] in Serum or PlasmaOrdered By: Moise Walker on 77-04-7362Tpdxur [Moles/Vol]134 mmol/JBgt957-275EbuttgqjzKettering Health Greene MemorialComment on above:Performed By: #### BMP #### [facility] [address] [place] [id number] USAUrea nitrogen [Mass/volume] in Serum or PlasmaOrdered By: Moise Walker on 21-03-2303Pvom nitrogen [Mass/Vol]43 mg/dLHigh7-25[facility] MemorialComment on above:Performed By: #### BMP #### [place] [id number] USAX-ray reportOrdered By: Alonzo Kennedy on 84-90-4744Yzudt reportPREMIER HEALTH A[facility] [place] [address] XRay Report Signed Patient: Eugenio Crews MR#: [id number] : 1945 Acct:[id number] Age/Sex: 79 / M ADM Date: 5 Loc: 4N Room: [address] [place] [address] Type: ADM IN Attending Dr: Bryon Aguilar MD Copies to: MD Arya Torres DO~ Ordering Provider: Arya Peña DO Date of Service: 03/24/25 XR/XR abdomen min 2V: SBO XR abdomen min 2V 03/24/2025 9:32 AM SIGNS AND SYMPTOMS: ^SBO PROTOCOL: Frontal radiographs of the abdomen and pelvis COMPARISON: 03/23/2025 FINDINGS: Mildly prominent air-filled loops of small bowel are noted with air-fluid levelsconsistent with a history of bowel obstruction. There is evidence of prior cholecystectomy. No radiographic evidence offree air. An enteric tube is in satisfactory position. Degenerative changes are noted in the thoracolumbar spine. [] XR/XR abdomen min 2V IMPRESSION: Similar dilated loops of small bowel consistent with small bowel obstruction. The enteric tube is in satisfactory position. Impression dictated by: Alonzo Kennedy M.D. 03/24/2025 11:25 AM Dictation Location: [facility] Transcribed By: [facility] 03/24/251124 Dictated By: Alonzo Kennedy II, MD 03/24/251123 Signed By: 03/24/251124 [facility] Work Phone: XR abdomen min 2Von 23-61-5040NM abdomen min 2V [facility] Main [address] [address] XRay Report Signed Patient: Eugenio Crews MR#: [id number] : 1945 Acct:[id number] Age/Sex: 79 / M ADM Date: 03/24/25 Loc: 4N Room: [address] [place] [address] Type: ADM IN Attending Dr: Bryon Aguilar [...] Kennedy M.D. 03/24/2025 11:25 AM Dictation Location: [place] [address] Transcribed By: [facility] 03/24/251124 Dictated By: Alonzo Kennedy II, MD 03/24/251123 Signed By: 03/24/25 1125Ad[facility] Orlando Physician GroupBasophils Auto (Bld) [#/Vol] Ordered By: Guillermo Masterson on 34-49-1225Vdwmqhemj (Bld) [#/Vol]0.0 10 3/uL0.0-0.1 [facility] MemorialBasophils/100 WBC Auto (Bld)Ordered By: Guillermo Masterson on 46-07-5234Mfusvezrk/100 WBC (Bld)0.3 %0.2-2.0[facility] MemorialCoarse granular casts count in urine sediment by microscopy low power field (number/aOrdered By: Guillermo Masterson on 76-49-4625Iowtzn Granular Casts LM.LPF (Urine sed) [#/Area][facility] Eosinophils/100 WBC Auto (Bld)Ordered By: Guillermo Masterson on 03-23-2025 Eosinophils/100 WBC (Bld)1.1 %0.9-7.0[facility] Erythrocyte distribution width Auto (RBC) [Ratio]Ordered By: Guillermo Masterson on 78-71-1637Kahattudmsq distribution width (RBC) [Ratio]12.1 %11.0-15.0[facility] MemorialGlobulin Calc (S) [Mass/Vol]Ordered By: Guillermo Masterson on 62-88-4479Xdedwszs (S) [Mass/Vol]3.4 g/dLKettering Health Greene Memorial Glomerular filtration rate (GFR) estimation in non- AmericanOrdered By: Guillermo Masterson on 62-26-1324SRB/1.73 sq M.predicted among non-blacks MDRD (S/P/Bld) [Vol rate/Area]18 mL/min/{1.73_m2}Low>=60 mL/min/1.73m 2FFostoria City HospitalHematocrit Auto (Bld) [Volume fraction]Ordered By: Guillermo Masterson on 68-72-7277Vetseqhile (Bld) [Volume fraction]38.3 %Low42.0-54.0 [facility] MemorialHemoglobin [Mass/volume] in BloodOrdered By: Guillermo Masterson on 95-28-9444Jqqqjqpbhg (Bld) [Mass/Vol]13.3 g/dLLow14.0-18.0 [facility] MemorialLaboratory - Chemistry and Chemistry - challengeOrdered By: Guillermo Masterson on 29-01-3142Kqlltidpw Ql (U)NegativeNEGATIVE [facility] MemorialGlucose (U) [Mass/Vol]250 mg/dLAbnormalNEGATIVE [facility] MemorialKetones Ql (U)TRACE mg/dLAbnormalNEGATIVE [facility] MemorialpH (U)5.5 [pH]5.0-9.0[facility]uff[facility] Hospitalpecific gravity (U) [Rel density]1.0201.005-1.025[facility] MemorialUrobilinogen Qn (U)0.2 {Bisi'U}/dL0.2-1.0[facility] MemorialAlbumin [Mass/Vol]4.1 g/dL3.4-5.0[facility] ALP [Catalytic activity/Vol]105 U/W85-205GdhjbvjjpKettering Health Greene MemorialALT [Catalytic activity/Vol]21 U/S35-93ShjkwkjpbKettering Health Greene MemorialAmylase [Catalytic activity/Vol]24 U/GZrf86-511UaehwgiccKettering Health Greene MemorialAST [Catalytic activity/Vol]11 U/FIye36-93YorjfnzmdKettering Health Greene MemorialBilirubin [Mass/Vol]0.6 mg/dL0.2-1.0[facility] MemorialBilirubin.direct [Mass/Vol]0.1 mg/dL0.0-0.2FFostoria City HospitalCalcium [Mass/Vol]9.2 mg/dL8.5-10.1FFostoria City HospitalChloride [Moles/Vol]103 mmol/L 98-107[facility] MemorialCO2 [Moles/Vol]19.1 mmol/LLow21.0-32.0 [facility] MemorialCreatinine [Mass/Vol]3.39 mg/dLHigh0.70-1.30 [facility] MemorialGFR/1.73 sq M.predicted MDRD (S/P/Bld) [Vol rate/Area]22 mL/min/{1.73_m2}Low>=60 mL/min/1.73m 2FFostoria City HospitalGlucose [Mass/Vol]157 mg/bKGdjj74-920MymgtmatcK[facility]tering Health [facility] Memorial Lipase [Catalytic activity/Vol]18.0 U/L16.0-77.0[facility] MemorialPotassium [Moles/Vol]4.9 mmol/L3.5-5.1FFostoria City Hospital Protein [Mass/Vol]7.5 g/dL6.4-8.2FMemorial Health Systemodium [Moles/Vol]137 mmol/K420-899YqndmcnatKettering Health Greene MemorialUrea nitrogen [Mass/Vol]44.0 mg/dLHigh7.0-18.0[facility] MemorialUrea nitrogen/Creatinine [Mass ratio]13.0 mg/mgKettering Health [facility] Memorial Laboratory - Hematology and Cell countsOrdered By: Guillermo Masterson on 03-23-2025 Immature granulocytes/100 WBC (Bld)0.5 %0.0-0.5FFostoria City Hospital Laboratory - Specimen informationOrdered By: Guillermo Masterson on 03-23-2025 Appearance (U)CLEARCLEARFFostoria City HospitalColor (U)LT. YELLOW YELLOWKettering Health Greene MemorialLaboratory - UrinalysisOrdered By: Guillermo Masterson on 77-93-5045Vqacccnty esterase Test strip Ql (U)NegativeNEGATIVE [facility] MemorialMucus Ql (Urine sed)NONE SEENNONE SEENKettering Health Greene MemorialNitrite Ql (U)NegativeNEGATIVEK[facility]tering Health [facility] MemorialProtein Ql (U)100 mg/dLAbnormalNEG/TRACEKettering Health Greene Memorial Leukocytes [#/volume] corrected for nucleated erythrocytes in Blood by Automated counOrdered By: Guillermo Masterson on 23-55-0096HQB corrected for nucl RBC Auto (Bld) [#/Vol]12.1 10 3/uLHigh4.0-11.0[facility] Lymphocytes Auto (Bld) [#/Vol]Ordered By: Guillermo Masterson on 42-31-8345Cirvxggwdzl (Bld) [#/Vol]1.0 10 3/uLLow1.2-3.8[facility] Lymphocytes/100 WBC Auto (Bld)Ordered By: Guillermo Masterson on 03-23-2025 Lymphocytes/100 WBC (Bld)8.1 %Low20.5-60.0[facility] Auto (RBC) [Entitic mass]Ordered By: Guillermo Masterson on 41-81-2206YRK (RBC) [Entitic mass]33.0 pg25.9-34.0[facility] MemorialMCHC Auto (RBC) [Mass/Vol]Ordered By: Guillermo Masterson on 14-32-8290XVLK (RBC) [Mass/Vol]34.7 g/dL 29.9-35.2FFostoria City HospitalMCV Auto (RBC) [Entitic vol]Ordered By: Guillermo Masterson on 90-62-1285TXD (RBC) [Entitic vol]95.0 aXDtla50.0-94.0 [facility] MemorialMonocytes Auto (Bld) [#/Vol]Ordered By: Guillermo Masterson on 50-99-4799Dogghjwik (Bld) [#/Vol]0.8 10 3/uL0.3-0.8[facility] MemorialMonocytes/100 WBC Auto (Bld)Ordered By: Guillermo Masterson on 83-82-1242Ntpgtbcvb/100 WBC (Bld)6.5 %1.7-12.0[facility] Neutrophils Auto (Bld) [#/Vol]Ordered By: Guillermo Masterson on 48-08-2540Gzpezdttsfv (Bld) [#/Vol]10.1 10 3/uLHigh1.4-6.5FFostoria City Hospital Neutrophils/100 WBC Auto (Bld)Ordered By: Guillermo Masterson on 03-23-2025 Neutrophils/100 WBC (Bld)83.5 %High43.0-75.0[facility] MemorialNo Panel InformationOrdered By: Guillermo Masterson on 60-59-3868Hkdwr BacteriaNONE SEEN #/HPFNONE SEENKettering Health Greene MemorialUrine Culture ReflexedYES-[facility], AvonUrine Occult BloodTRACE-INEGATIVEKettering Health Greene MemorialUrine Other CastsSEEN #/LPFAbnormalNONE SEENKettering Health Greene MemorialUrine Other CrystalsNone Seen #/HPFNone [facility] HospitalUrine RBC0-2 #/HPF0-2FFostoria City Hospital Urine Squamous Epithelial CellsNONE SEEN #/LPFNONE/RAREKettering Health Greene MemorialUrine Transitional Epithelial CellsRARE #/LPFAbnormalNONE SEEN [facility] MemorialUrine WBC5-10 #/HPFAbnormalNONE SEENKettering Health Greene MemorialEosinophils # (Auto)0.1 10 3/uL0.0-0.7FFostoria City HospitalImmature Granulocyte # (Auto)0.06 10 3/uLHigh0.00-0.03[facility] MemorialTroponin I High Dfbeohwcefw20.8 pg/mL4.0-76.1FFostoria City HospitalComment on above:CUT-OFF POINTS HAVE BEEN ESTABLISHED BASED ON THE FOURTHUNIVERSAL DEFINITION OF MYOCARDIAL INFARCTION. THE UPPERREFERENCE LIMIT (URL) OF TROPONIN, DEFINED THE 99THPERCENTILE OF cTnI DISTRIBUTION IN A REFERENCE POPULATION,HAS BEEN CONFIRMED THE DECISION THRESHOLD FOR MIDIAGNOSIS.99TH PERCENTILE = 76.2 PG/MLNOTE: HIGH-SENSITIVITY TROPONIN ASSAY IS NOT INTENDED TO BEUSED IN ISOLATION BUT SHOULD BE INTERPRETED IN CONJUNCTIONWITH OTHER DIAGNOSTIC AND CLINICAL INFORMATION.Platelet mean volume Auto (Bld) [Entitic vol]Ordered By: Guillermo Masterson on 26-55-2305Xqqpjnqk mean volume (Bld) [Entitic vol]9.2 fLLow9.5-13.5FFostoria City HospitalPlatelets Auto (Bld) [#/Vol]Ordered By: Guillermo Masterson on 03-23-2025 Platelets (Bld) [#/Vol]178 10 3/lC370-941LzjuurimwKettering Health Greene MemorialRBC Auto (Bld) [#/Vol]Ordered By: Guillermo Masterson on 89-69-4544MFM (Bld) [#/Vol]4.03 10 6/uLLow4.70-6.10[facility]uffton Hospitalerum or plasma albumin/globulin mass ratioOrdered By: Guillermo Masterson on 03-23-2025 Albumin/Globulin [Mass ratio]1.2 {ratio}[facility] Bluffton Hospitalerum or plasma anion gap determinationOrdered By: Guillermo Masterson on 69-49-5966Nudvd gap [Moles/Vol]19.8 mmol/LFFostoria City HospitalUrine Cultureon 32-42-0230Sipxqyyg identified Cx Nom (U)<9,000 colonies/ml mixed bacterial skin contaminants 2 Days PERFORMED BY: [place] [address] PATHOLOGIST ROTOR CASTING MACHINE OPERATOR HERMILO FOLEY M.D.NormalThe Dosher Memorial Hospital Physician GroupComment on above: Performed By: #### CUU #### [place] [address] USAUrine cultureOrdered By: Guillermo Masterson on 03-23-2025 Bacteria identified Cx Nom (U)2 DaysKettering Health Greene MemorialErythrocyte distribution width Auto (RBC) [Ratio]Ordered By: Vaishali Howell on 01-19-2025 Erythrocyte distribution width (RBC) [Ratio]12.6 %11.0-15.0[facility] MemorialGlomerular filtration rate (GFR) estimation in non- AmericanOrdered By: Vaishali Howell on 28-49-6379NHO/1.73 sq M.predicted among non- blacks MDRD (S/P/Bld) [Vol rate/Area]18 mL/min/{1.73_m2}Low>=60 mL/min/1.73m 2 [facility] MemorialHematocrit Auto (Bld) [Volume fraction]Ordered By: Vaishali Howell on 28-10-6129Ohizdoglbs (Bld) [Volume fraction]32.9 %Low 42.0-54.0[facility] MemorialHemoglobin [Mass/volume] in Blood Ordered By: Vaishali Howell on 56-03-1003Bnhfntpdps (Bld) [Mass/Vol]11.5 g/dLLow 14.0-18.0[facility] MemorialIron binding capacity [Mass/volume] in Serum or PlasmaOrdered By: Vaishali Howell on 31-52-3113Zrve binding capacity [Mass/Vol]248.0 ug/rTIao650.0-450.0[facility] MemorialIron saturation [Mass Fraction] in Serum or PlasmaOrdered By: Vaishali Howell on 00-39-8726Nctg saturation [Mass fraction]26.6 %[facility] Laboratory - Chemistry and Chemistry - challengeOrdered By: Vaishali Howell on 28-61-8889Nmvncqnqe Ql (U)NegativeNEGATIVEK[facility]tering Health [facility] Memorial Glucose (U) [Mass/Vol]250 mg/dLAbnormalNEGATIVEK[facility]tering Health [facility] Memorial Ketones Ql (U)TRACE mg/dLAbnormalNEGATIVEKettering Health Greene MemorialpH (U) 6.0 [pH]5.0-9.0[facility]uffton Hospitalpecific gravity (U) [Rel density]1.0251.005-1.025[facility] MemorialUrobilinogen Qn (U)0.2 {Bisi'U}/dL0.2-1.0[facility] MemorialAlbumin [Mass/Vol]3.7 g/dL 3.4-5.0[facility] MemorialCalcium [Mass/Vol]8.3 mg/dLLow8.5-10.1 [facility] MemorialChloride [Moles/Vol]108 mmol/DMqlb77-719 [facility] MemorialCO2 [Moles/Vol]22.1 mmol/L21.0-32.0[facility] MemorialCreatinine [Mass/Vol]3.38 mg/dLHigh0.70-1.30[facility] MemorialFerritin [Mass/Vol]199.0 ng/mL26.0-388.0[facility] MemorialGFR/1.73 sq M.predicted MDRD (S/P/Bld) [Vol rate/Area]22 mL/min/{1.73_m2}Low>=60 mL/min/1.73m 2FFostoria City HospitalGlucose [Mass/Vol]131 mg/pSDguv70-576SfhggobxtKettering Health Greene MemorialIron [Mass/Vol] 66.0 ug/dL65.0-175.0[facility] MemorialMagnesium [Mass/Vol]1.9 mg/dL1.8-2.4FFostoria City HospitalPotassium [Moles/Vol]4.6 mmol/L 3.5-5.1FMemorial Health Systemodium [Moles/Vol]141 mmol/E396-570 [facility] MemorialUrate [Mass/Vol]5.0 mg/dL3.5-7.2FFostoria City HospitalUrea nitrogen [Mass/Vol]44.0 mg/dLHigh7.0-18.0[facility] MemorialUrea nitrogen/Creatinine [Mass ratio]13.0 mg/mgKettering Health Greene MemorialLaboratory - Specimen informationOrdered By: Vaishali Howell on 68-18-6632Tehzykktep (U)CLEARCLEARFFostoria City HospitalColor (U) LT. YELLOWYELLOWKettering Health Greene MemorialLaboratory - UrinalysisOrdered By: Vaishali Howell on 89-09-4304Aalbchkog esterase Test strip Ql (U)TRACEAbnormal NEGATIVEKettering Health Greene MemorialMucus Ql (Urine sed)NONE SEENNONE SEEN [facility] MemorialNitrite Ql (U)NegativeNEGATIVEKettering Health [facility] MemorialProtein (U) [Mass/Vol]137.6 mg/dLHigh<=11.9[facility] MemorialProtein Ql (U)100 mg/dLAbnormalNEG/TRACEKettering Health Greene MemorialLeukocytes [#/volume] corrected for nucleated erythrocytes in Blood by Automated counOrdered By: Vaishali Howell on 45-41-8359LHE corrected for nucl RBC Auto (Bld) [#/Vol]5.7 10 3/uL4.0-11.0[facility] HospitalH Auto (RBC) [Entitic mass]Ordered By: Vaishali Howell on 01-19-2025 MCH (RBC) [Entitic mass]33.4 pg25.9-34.0[facility] HospitalHC Auto (RBC) [Mass/Vol]Ordered By: Vaishali Howell on 69-89-0801HZPX (RBC) [Mass/Vol] 35.0 g/dL29.9-35.2FFostoria City HospitalMCV Auto (RBC) [Entitic vol] Ordered By: Vaishali Howell on 19-34-8344UYQ (RBC) [Entitic vol]95.6 iGBblo53.0-94.0 [facility] MemorialNo Panel InformationOrdered By: Vaishali Howell on 15-41-2609Biyvz BacteriaTRACE #/HPFAbnormalNONE [facility] CenterUrine Occult BloodTRACE-INEGATIVEKettering Health Greene MemorialUrine Other CastsNONE SEEN #/LPFNONE [facility] CenterUrine Other CrystalsNone Seen #/HPFNone [facility] HospitalUrine Random Psijlovpsp764.73 mg/dL20.00-300.00[facility] MemorialUrine RBC0-2 #/HPF0-2FFostoria City HospitalUrine Squamous Epithelial CellsFEW #/LPFAbnormalNONE/RAREKettering Health Greene MemorialUrine WBC2-5 #/HPF AbnormalNONE [facility]25-Hydroxy Vitamin D Total44.9 ng/mLKettering Health Greene MemorialComment on above:<20 ng/mL Vit D daoetohgw09-<30 ng/mL Vit D myztqiwvyawp68-618 ng/mL Vit D sufficient>100 ng/mL Potential ToxicityParathyroid Hormone (Intact)160 pg/uSJpgrjuja27-98LkrpsonsuKettering Health Greene MemorialComment on above:Performed at: [place] [facility] [id number] Director: Karel Kaye PhD, Phone: [phone] Level3.6 mg/dL2.6-4.7FFostoria City Hospital Platelet mean volume Auto (Bld) [Entitic vol]Ordered By: Vaishali Howell on 51-84-9644Nrbuuhzl mean volume (Bld) [Entitic vol]8.7 fLLow9.5-13.5FFostoria City HospitalPlatelets Auto (Bld) [#/Vol]Ordered By: Vaishali Howell on 88-60-4830Uodbdrtll (Bld) [#/Vol]128 10 3/lCWez903-280IukndeqfmKettering Health Greene MemorialRBC Auto (Bld) [#/Vol]Ordered By: Vaishali Howell on 53-85-6625SSS (Bld) [#/Vol]3.44 10 6/uLLow4.70-6.10[facility]uffton Hospitalerum or plasma anion gap determinationOrdered By: Vaishali Howell on 81-56-9036Jwsvy gap [Moles/Vol]15.5 mmol/LFFostoria City HospitalUrine protein/creatinine ratioOrdered By: Vaishali Howell on 11-39-6411Kyxaaqu/Creatinine (U) [Ratio]0.85 [facility] MemorialHbA1c HPLC (Bld) [Mass fraction]Ordered By: Gerry Chang on 59-65-1458WnM6g (Bld) [Mass fraction]7.2 %[facility] MemorialEstimated glomerular filtration rate (GFR) non- Americanon 08-20-4089YFM/1.73 sq M.predicted among non-blacks MDRD (S/P/Bld) [Vol rate/Area]Estimated glomerular filtration rate (GFR) non- AmericanLow>=60 mL/min/1.73m 2FFostoria City HospitalGFR/1.73 sq M.predicted among non-blacks MDRD (S/P/Bld) [Vol rate/Area]19 mL/min/{1.73_m2}Low>=60 mL/min/1.[address]m [address] [place], [place] [address]Laboratory - Chemistry and Chemistry - challengeon 29-75-1458Uacgrbuzja [Mass/Vol]3.25 mg/dLHigh0.70-1.30[facility] MemorialGFR/1.73 sq M.predicted MDRD (S/P/Bld) [Vol rate/Area]23 mL/min/{1.73_m2}Low>=60 mL/min/1.[address]m [address] [place], [place] [address]Urea nitrogen [Mass/Vol]45.0 mg/dLHigh7.0-18.0[facility] MemorialUrine Cytology ([facility])on 21-89-2378Ytrqyvgejii exam Cytology (U) [Interp]Diagnosis InfoInvalid Interpretation CodeAtrium Healther [facility] St. Joseph Medical CenterComment on above: Result Comment: A:Urine,Clean Catch:Bladder Wash Interpretation - Adequate cellularity for evaluation. CPT 95286 MicroScopic Description - Adequacy - Gross Description Site ID:A color Yellow fixative Alcohol Specimen designated Clean Catch received in alcohol preservative and labeled with the patient???s name, consists of 80ml slightly cloudy yellow fluid. Electronically signed by : on: 10/21/2024 13:22:38Performed By: #### [id number] #### [facility] [address] [place] [address]Braykemudqd distribution width Auto (RBC) [Ratio]on 10-20-2024 Erythrocyte distribution width (RBC) [Ratio]Erythrocyte distribution width [Ratio] by Automated count11.0-15.0[facility] MemorialErythrocyte distribution width (RBC) [Ratio]12.1 %11.0-15.0[facility] Estimated glomerular filtration rate (GFR) non- Americanon 10-20-2024 GFR/1.73 sq M.predicted among non-blacks MDRD (S/P/Bld) [Vol rate/Area]Estimated glomerular filtration rate (GFR) non- AmericanLow>=60 mL/min/1.73m 2 [facility] MemorialGFR/1.73 sq M.predicted among non-blacks MDRD (S/P/Bld) [Vol rate/Area]17 mL/min/{1.73_m2}Low>=60 mL/min/1.73m 2FFostoria City HospitalHematocrit Auto (Bld) [Volume fraction]on 10-20-2024 Hematocrit (Bld) [Volume fraction]Hematocrit [Volume Fraction] of Blood by Automated keguqLcf28.0-54.0[facility] MemorialHematocrit (Bld) [Volume fraction]34.7 %Low42.0-54.0[facility] MemorialHemoglobin [Mass/volume] in Bloodon 68-56-3978Congkktzee (Bld) [Mass/Vol]Hemoglobin [Mass/volume] in YtrovQec57.0-18.0[facility] MemorialHemoglobin (Bld) [Mass/Vol]11.9 g/dLLow14.0-18.0[facility] MemorialIron binding capacity [Mass/volume] in Serum or Plasmaon 98-62-0306Lgqq binding capacity [Mass/Vol]Iron binding capacity [Mass/volume] in Serum or Plasma 250.0-450.0[facility] MemorialIron binding capacity [Mass/Vol] 257.0 ug/dL250.0-450.0[facility] MemorialIron saturation [Mass Fraction] in Serum or Plasmaon 21-40-7793Ekbi saturation [Mass fraction]Iron saturation [Mass Fraction] in Serum or PlasmaKettering Health Greene Memorial Iron saturation [Mass fraction]22.6 %[facility] MemorialLaboratory - Chemistry and Chemistry - challengeon 32-43-3278Lddzadx [Mass/Vol]3.5 g/dL 3.4-5.0[facility] MemorialCalcium [Mass/Vol]8.9 mg/dL8.5-10.1 [facility] MemorialChloride [Moles/Vol]105 mmol/H41-403GwpepvvrwKettering Health Greene MemorialCO2 [Moles/Vol]24.1 mmol/L21.0-32.0[facility] MemorialCreatinine [Mass/Vol]3.53 mg/dLHigh0.70-1.30[facility] MemorialFerritin [Mass/Vol]195.0 ng/mL26.0-388.0[facility] MemorialGFR/1.73 sq M.predicted MDRD (S/P/Bld) [Vol rate/Area]21 mL/min/{1.73_m2} Low>=60 mL/min/1.73m 2FFostoria City HospitalGlucose [Mass/Vol]192 mg/uZUqcb75-661ChrkmynayKettering Health Greene MemorialIron [Mass/Vol]58.0 ug/dLLow 65.0-175.0[facility] MemorialMagnesium [Mass/Vol]2.0 mg/dL1.8-2.4 [facility] MemorialPotassium [Moles/Vol]5.5 mmol/LHigh3.5-5.1 [facility]uffton Hospitalodium [Moles/Vol]138 mmol/Q416-074KrtxtegwgKettering Health Greene MemorialUrate [Mass/Vol]5.2 mg/dL3.5-7.2FFostoria City HospitalUrea nitrogen [Mass/Vol]47.0 mg/dLHigh7.0-18.0[facility] MemorialUrea nitrogen/Creatinine [Mass ratio]13.3 mg/mgKettering Health Greene MemorialLaboratory - Urinalysison 49-62-9200Qauttib (U) [Mass/Vol]124.3 mg/dLHigh<=11.9[facility] MemorialLeukocytes [#/volume] corrected for nucleated erythrocytes in Blood by Automated counon 01-09-4782ORN corrected for nucl RBC Auto (Bld) [#/Vol]Leukocytes [#/volume] corrected for nucleated erythrocytes in Blood by Automated coun4.0-11.0[facility] WBC corrected for nucl RBC Auto (Bld) [#/Vol]10.9 10 3/uL4.0-11.0[facility] Auto (RBC) [Entitic mass]on 30-78-2272TRR (RBC) [Entitic mass]MCH [Entitic mass] by Automated count25.9-34.0[facility] (RBC) [Entitic mass]33.1 pg25.9-34.0[facility] Auto (RBC) [Mass/Vol]on 28-63-6292VWTS (RBC) [Mass/Vol]MCHC [Mass/volume] by Automated count29.9-35.2FFostoria City HospitalMCHC (RBC) [Mass/Vol]34.3 g/dL29.9-35.2FUniversity Hospitals Geauga Medical CenterV Auto (RBC) [Entitic vol]on 73-23-3959CRI (RBC) [Entitic vol]MCV [Entitic volume] by Automated zhxozXibh47.0-94.0[facility] HospitalV (RBC) [Entitic vol]96.4 vVYyji85.0-94.0[facility] MemorialNo Panel Informationon 418026-Beeoqyg Vitamin D Total43.4 ng/mLK[facility]tering Health [facility] Memorial Comment on above:<20 ng/mL Vit D tnoxdwdmp26-<30 ng/mL Vit D qxwiyktyghgj20-584 ng/mL Vit D sufficient>100 ng/mL Potential ToxicityParathyroid Hormone (Intact) 100 pg/mFGocrjicf63-68HjhaixnxnKettering Health Greene MemorialComment on above: Performed at: [facility] [address] [id number] Director: Karel Kaye PhD, Phone: [phone] Level3.7 mg/dL 2.6-4.7FFostoria City HospitalUrine Random Flasvwxxlu213.43 mg/dL 20.00-300.00[facility] MemorialPlatelet mean volume Auto (Bld) [Entitic vol]on 27-15-5141Vzxktuxt mean volume (Bld) [Entitic vol]Platelet mean volume [Entitic volume] in Blood by Automated countLow9.5-13.5FFostoria City HospitalPlatelet mean volume (Bld) [Entitic vol]8.9 fLLow9.5-13.5FFostoria City HospitalPlatelets Auto (Bld) [#/Vol]on 56-23-8540Xrbhpewjc (Bld) [#/Vol]Platelets [#/volume] in Blood by Automated qjydd138-131NycanyrcfKettering Health Greene MemorialPlatelets (Bld) [#/Vol]157 10 3/tE680-015UdtdpnysoK[facility]tering Health [facility] MemorialRBC Auto (Bld) [#/Vol]on 45-63-3669VDM (d) [#/Vol]Erythrocytes [#/volume] in Blood by Automated countLow4.70-6.10[facility] MemorialRB ([facility]) [#/Vol]3.60 10 6/uLLow4.70-6.10[facility] Serum or plasma anion gap determinationon 05-83-3950Vlyoe gap [Moles/Vol]Serum or plasma anion gap determinationKettering Health Greene MemorialAnion gap [Moles/Vol]14.4 mmol/LFFostoria City HospitalUrine protein/creatinine ratioon 99-23-3958Pmtmrue/Creatinine (U) [Ratio]Urine protein/creatinine ratio [facility] MemorialProtein/Creatinine (U) [Ratio]1.04[facility] MemorialUrine Cytology ( Labs)on 35-62-7082TF Method of ExtractionBladder UrineNoCity HospitalComment on above: Performed By: #### [id number] #### [facility] [address], [place] [address]GO Number of Hzvj6Rlxwgky Interpretation [facility]CMC Healthcare SystemComment on above:Performed By: #### [id number] #### [facility] [address], [place] [address]SN SpecimenClean CatchNoCity HospitalComment on above:Performed By: #### [id number] #### [facility] [address], [place] [address]RS Type of ServiceTechnical OnlyBluffton HospitalComment on above:Performed By: #### [id number] #### [facility] [address], [place] [address]Rucouvo Office/Clinic Noteon 81-27-5544Mdplxfa Office/Clinic NoteUrology Office/Clinic Note Chief Complaint discuss UA micro [...] among others. The patient, after being informed ofprocedural details and after questions have been answered, wishes to proceed. Full informed consenthas been obtained. Will order Local anesthesia. Ordered: Body Mass Index (BMI) documented 3008F BUN Creatinine CT Urogram Current tobacco non-user 1036F Depression Screening Negative 3352F E&M of Est. Patient Moderate 30-39 Min 91205 Influenza immunization status assessed 1030F Medication list [...] Urnls Dip Stick Auto w/o Microscopy POC 46030 Orders: ciprofloxacin, 500 mg = 1 tab(s), Oral, Daily, Take 1 tablet the day before the procedure and 1 tablet after the procedure, # 2 tab(s), Refills(s) 0, Pharmacy: [facility]/pharmacy #[id number], 187, cm, 10/16/24 8:21:00 EDT, Height/Length Dosing, 104.3, kg, 10/16/24 8:21:00 EDT,... Follow-up With When Contact Information [facility] Additional Instructions: For procedure as scheduled. Patient [...] Heart disease: Mother an (more content not included)...Bluffton HospitalComment on above:Result Comment: Electronically Signed By: AILEEN DUKES PA-C\.br\Date and Time Signed: 10/16/2509:11 EDTNo Panel Information on 83-36-3309Glsrtgbj Specific Antigen Total3.01 ng/mL<=4.00[facility] MemorialAmbulatory Visit Summaryon 98-05-4981Yqblifiyub Visit Summary Ambulatory Visit Summary EUGENIO CREWS [...] DOYLE, Jenaro Roberto Primary Care Physician - BERNARDO TEJADA, GERRY This Is Your Medications List Contact prescribing [...] [facility] [address] , [place] [address] [phone] Medications What How Much When Instructions Unchanged [...] times a day Contact prescribing physician if questionsor concerns Unchanged insulin glargine (Basaglar KwikPen 100 units/ mL subcutaneous solution) 8 Units Subcutaneous Every day Contact prescribing physician if questions or concerns Unchanged lisinopril 2.5 Milligram By Mouth Every day Contact prescribing physician if questions orconcerns Unchanged magnesium oxide (magnesium oxide 400 mg [...] instructions at home: Medi (more content not included)...NormalTrinity Health System Twin City Medical CenterURINALYSIS Ordered By: SYSTEM SYSTEM on 70-92-2460Kegorasyu Ql (U)NegativeNormal Negativemg/dLFTMC UA Auto SSClarity (U)Clear (10/06/24 10:41 AM)NormalClearFC UA Auto SSColor (U)Light-Yellow 1 (10/06/24 10:41 AM)NormalYellowFT UA Auto SSComment on above:Interpretive Data: Microscopic readings are only performed on those samples that meet specific criteria set forth by [facility].Epithelial cells.squamous Auto (Urine sed) [#/Area]0-2 graded/HPFInvalid Interpretation CodeFT UA Auto SSGlucose Ql (U)3+ mg/dLInvalid Interpretation Code Negativemg/dLFTMC UA Auto SSHemoglobin Auto test strip (U) [Mass/Vol]Trace mg/dL Invalid Interpretation CodeNegativemg/dLFTMC UA Auto SSKetones Auto test strip Ql (U)NegativeNormalNegativemg/dLFTMC UA Auto SSLeukocyte esterase Auto test strip Ql (U)NegativeNormalNegativeLeu/uLFTMC UA Auto SSMucus Auto Ql (U)Trace graded/LPFNormalNegativegraded/LPFFTMC UA Auto SSNitrite Auto test strip Ql (U) NegativeNormalNegativemg/dLOK [facility] [place] [facility] UA Auto SSpH (U)6.0 *NA* (10/06/24 10:41 AM)Invalid Interpretation Code5.0 - 9.0[facility] [place] UA Auto SSProtein Ql (U)1+ mg/dLInvalid Interpretation CodeNegativemg/dLOK [facility] [place] [facility] UA Auto SSRBC Ql (U)4-20 graded/HPFInvalid Interpretation Code0-3graded/HPFOK [facility] [place] UA Auto SSSpecific gravity (U) [Rel density]1.017 *NA* (10/06/24 10:41 AM)Invalid Interpretation Code1.005 - 1.030[facility] [place] UA Auto SS Urobilinogen (U) [Mass/Vol]NegativeNormalNegativemg/dLOK [facility] [place] UA Auto SSWBC Auto (Urine sed) [#/Area]0-5 graded/HPFNormal0-5graded/HPFOK [facility] [place] UA Auto SSURINALYSIS Ordered By: Aileen Dao on 57-54-2943CB Spec DescRandom Urine (10/06/24 10:41 AM)NormalOK [facility] [place] UA Auto SSUrinalysis with Microon 10-06-2024 Bilirubin Ql (U)NegativeNormalNegativeTrinity Health System Twin City Medical CenterComment on above:Performed By: #### [id number] #### [facility] [address] [place] [address]Fvjkqri (U)ClearNormalClearTrinity Health System Twin City Medical CenterComment on above:Performed By: #### [id number] #### [facility] [address], [place] [address]Jmynu (U)Light-YellowNormalYellowTrinity [facility] Comment on above:Result Comment: Microscopic readings are only performed on those samples that meet specific criteria set forth by [facility].Performed By: #### [id number] #### [facility] [address], [place] [address]Ifuwefzjzw cells.squamous Auto (Urine sed) [#/Area]0-2Invalid Interpretation CodeTrinity Health System Twin City Medical CenterComment on above:Performed By: #### [id number] #### [facility] [address], [place] [address]Ojhzqov Ql (U)3+ mg/dLAbnormalNegativeTrinity Health System Twin City Medical CenterComment on above:Performed By: #### [id number] #### [facility] [address], [place] [address]Egqfgplfqe Auto test strip (U) [Mass/Vol]TraceAbnormalNegative [facility] CenterComment on above:Performed By: #### [id number] #### [facility] [address], [place] [address]Vtjcjxw Auto test strip Ql (U)NegativeNormalNegativeTrinity Health System Twin City Medical CenterComment on above:Performed By: #### [id number] #### [facility] [address], [place] [address]Vmgxmqoeh esterase Auto test strip Ql (U)NegativeNormalNegative [facility] CenterComment on above:Performed By: #### [id number] #### [facility] [address], [place] [address]Kppiq Auto Ql (U)TraceNormalNegKeenan Private Hospital Comment on above:Performed By: #### [id number] #### [facility] [address], [place] [address]Aecygri Auto test strip Ql (U)NegativeNormalNegativeTrinity Health System [facility] City Medical CenterComment on above:Performed By: #### [id number] #### [facility] [address], [place] [address]sP (U)6.0 [pH]Invalid Interpretation Code5.0-9.0[facility] Medical CenterComment on above:Performed By: #### [id number] #### [facility] [address], [place] [address]Ngvjkcy Ql (U)1+ mg/dLAbnormalNegKeenan Private HospitalComment on above:Performed By: #### [id number] #### [facility] [address] [place] [address]HHC Ql (U)5-41Hgmlwblz0-0EisodvTrinity Health SystemComment on above:Performed By: #### [id number] #### [facility] [address] [place] [address]Onimccjo gravity (U) [Rel density]1.017Invalid Interpretation Code1.005-1.030[facility] Medical CenterComment on above:Performed By: #### [id number] #### [facility] [address] [place] [address]Vzrsmijsebum (U) [Mass/Vol]NegativeNormalNegativeTrinity Health System Twin City Medical CenterComment on above:Performed By: #### [id number] #### [facility] [address] [place] [address]GLK Auto (Urine sed) [#/Area]0-1Zcizru5-1LiyduiTrinity Health SystemComment on above:Performed By: #### [id number] #### [facility] [address] [place] [address]Bcmd of Urine collection methodRandom UrineNormalTrinity Health System Twin City Medical CenterComment on above:Performed By: #### [id number] #### [facility] [address] [place] [address]Usslapa Office/Clinic Noteon 01-02-5158Smhmgbp Office/Clinic NoteUrology Office/Clinic Note Chief Complaint 6 month follow [...] When Contact Information JADE DOYLE, Jenaro Roberto, [facility] [address], [place] [phone] Additional Instructions: 6 mos w/ PSA and [...] Daily Allergies Toradol ( (more content not included)...[facility]uffton HospitalComment on above:Result Comment: Electronically Signed By: Jenaro HANSEN MD\.br\Date and Time Signed: 10/06/24 09:17 EDT\.br\Electronically Co-Signed By: Rochelle Hightower\.br\Date and Time Co-Signed: 10/06/24 09:16 EDTNo Panel Informationon 13-83-2799Ettwhmug Specific Antigen Total3.51 ng/mL<=4.00[facility] MemorialAlbumin [Mass/volume] in Serum or Plasmaon 07-21-2024 Albumin [Mass/Vol]Albumin [Mass/volume] in Serum or Plasma2.9-4.4FFostoria City HospitalIgA [Mass/volume] in Serum or Plasmaon 53-97-4970PhI [Mass/Vol]IgA [Mass/volume] in Serum or Lqyswl88-778JmrdngzcnKettering Health Greene MemorialIgG [Mass/volume] in Serum or Plasmaon 88-86-0558LcO [Mass/Vol]IgG [Mass/volume] in Serum or Gxnpqs058-1944XeejnclhfKettering Health Greene MemorialIgM [Mass/volume] in Serum or Plasmaon 34-21-1025UtS [Mass/Vol]IgM [Mass/volume] in Serum or Cqengj82-220LhajlbcwhKettering Health Greene MemorialImmunoglobulin light chains.kappa.free [Mass/volume] in Serumon 93-97-9153Ryenalkywyeyvs light chains.kappa.free (S) [Mass/Vol]Immunoglobulin light chains.kappa.free [Mass/volume] in SerumAbnormal3.3-19.4FFostoria City Hospital Immunoglobulin light chains.kappa.free/Immunoglobulin light chains.lambda.free [Sean 66-67-8235Erawxwzftrhqdt light chains.kappa.free/Immunoglobulin light chains.lambda.free (S) [Mass ratio]Immunoglobulin light chains.kappa.free/Immunoglobulin light chains.lambda.free [Mass0.26-1.65 [facility] MemorialComment on above:Performed at: [place] [facility] CenterNghalv[address] [place], [place] [id number] Director: Karel Kaye PhD, Phone: [phone] light chains.lambda.free [Mass/volume] in Serum or Plasmaon 09-36-4221Heheskaomuykxj light chains.lambda.free [Mass/Vol] Immunoglobulin light chains.lambda.free [Mass/volume] in Serum or PlasmaAbnormal 5.7-26.3FFostoria City HospitalNo Panel Informationon 07-21-2024 Protein Electrophoresis M-SpikeNot Observed g/dLNot ObservedKettering Health Greene MemorialProtein Electrophoresis NoteComment.[facility] MemorialComment on above:Protein electrophoresis scan will follow via computer,mail, or ceramics instructor delivery.Protein [Mass/volume] in Serum or Plasmaon 68-99-8765Ewhrscd [Mass/Vol]Protein [Mass/volume] in Serum or Plasma6.0-8.5 [facility] Bluffton Hospitalerum globulin measurement (mass/volume)on 24-36-3508Ytbourqs (S) [Mass/Vol]Serum globulin measurement (mass/volume)2.2-3.9 [facility]uffton Hospitalerum or plasma albumin/globulin mass ratioon 11-56-9715Jysfuqi/Globulin [Mass ratio]Serum or plasma albumin/globulin mass ratio0.7-1.7FMemorial Health Systemerum or plasma alpha 1 globulin measurement by electrophoresis (mass/volume)on 85-45-1437Iijhr 1 globulin Elph [Mass/Vol]Serum or plasma alpha 1 globulin measurement by electrophoresis (mass/volume)0.0-0.4FMemorial Health Systemerum or plasma alpha 2 globulin measurement by electrophoresis (mass/volume)on 32-29-8468Hvoqp 2 globulin Elph [Mass/Vol]Serum or plasma alpha 2 globulin measurement by electrophoresis (mass/volume)0.4-1.0[facility]uff[facility] Hospitalerum or plasma beta globulin measurement by electrophoresis (mass/volume)on 07-21-2024 Beta globulin Elph [Mass/Vol]Serum or plasma beta globulin measurement by electrophoresis (mass/volume)0.7-1.3FMemorial Health Systemerum or plasma gamma globulin measurement by electrophoresis (mass/volume)on 07-21-2024 Gamma globulin Elph [Mass/Vol]Serum or plasma gamma globulin measurement by electrophoresis (mass/volume)0.4-1.8[facility] Bluffton Hospitalerum or plasma immunoelectrophoresis interpretationon 66-16-1329Puppldircihfgm IEP [Interp]Serum or plasma immunoelectrophoresis interpretation.[facility] MemorialComment on above:Presence of monoclonal protein is unclear at this time. Suggestrepeat in 3 to 6 months if clinically indicated.Erythrocyte distribution width Auto (RBC) [Ratio]on 77-12-4044Saaizjayqyc distribution width (RBC) [Ratio]Erythrocyte distribution width [Ratio] by Automated count11.0-15.0 [facility] MemorialEstimated glomerular filtration rate (GFR) non- Americanon 81-88-8641MDR/1.73 sq M.predicted among non-blacks MDRD (S/P/Bld) [Vol rate/Area]Estimated glomerular filtration rate (GFR) non- AmericanLow>=60 mL/min/1.73m 2FFostoria City HospitalHematocrit Auto (Bld) [Volume fraction]on 82-38-1041Nlccwpraqi (Bld) [Volume fraction]Hematocrit [Volume Fraction] of Blood by Automated wveldBbo49.0-54.0[facility] MemorialHemoglobin [Mass/volume] in Bloodon 97-52-8364Jqjexywebf (Bld) [Mass/Vol]Hemoglobin [Mass/volume] in EpyxzMek72.0-18.0[facility] MemorialIron binding capacity [Mass/volume] in Serum or Plasmaon 86-22-8468Sfab binding capacity [Mass/Vol]Iron binding capacity [Mass/volume] in Serum or Jeywxx901.0-450.0[facility] MemorialIron saturation [Mass Fraction] in Serum or Plasmaon 04-87-0911Gnlu saturation [Mass fraction] Iron saturation [Mass Fraction] in Serum or PlasmaKettering Health Greene MemorialLaboratory - Chemistry and Chemistry - challengeon 67-19-3268Vrbmhypul Ql (U)NegativeNEGATIVEKettering Health Greene MemorialGlucose (U) [Mass/Vol]500 mg/dLAbnormalNEGATIVEKettering Health Greene MemorialKetones Ql (U)Negative NEGATIVEKettering Health Greene MemorialpH (U)6.0 [pH]5.0-9.0[facility] Bluffton Hospitalpecific gravity (U) [Rel density]1.0251.005-1.025[facility] MemorialUrobilinogen Qn (U)0.2 {Bisi'U}/dL0.2-1.0[facility] MemorialAlbumin [Mass/Vol]3.6 g/dL3.4-5.0[facility] MemorialCalcium [Mass/Vol]8.4 mg/dLLow8.5-10.1FFostoria City HospitalChloride [Moles/Vol]106 mmol/U12-271XcupfuitdKettering Health Greene MemorialCO2 [Moles/Vol]25.5 mmol/L21.0-32.0[facility] MemorialCreatinine [Mass/Vol]3.27 mg/dLHigh0.70-1.30[facility] MemorialFerritin [Mass/Vol]230.0 ng/mL26.0-388.0[facility] MemorialGFR/1.73 sq M.predicted MDRD (S/P/Bld) [Vol rate/Area]22 mL/min/{1.73_m2}Low>=60 mL/min/1.73m 2FFostoria City HospitalGlucose [Mass/Vol]141 mg/dLHigh 74-106[facility] MemorialIron [Mass/Vol]82.0 ug/dL65.0-175.0 [facility] MemorialMagnesium [Mass/Vol]1.7 mg/dLLow1.8-2.4 [facility] MemorialPotassium [Moles/Vol]4.7 mmol/L3.5-5.1FMemorial Health Systemodium [Moles/Vol]142 mmol/G329-675TozyotrbnKettering Health Greene MemorialUrate [Mass/Vol]5.4 mg/dL3.5-7.2FFostoria City Hospital Urea nitrogen [Mass/Vol]46.0 mg/dLHigh7.0-18.0[facility] Urea nitrogen/Creatinine [Mass ratio]14.1 mg/mgKettering Health Greene Memorial Laboratory - Specimen informationon 57-79-1031Qtqqedxnbb (U)CLEARCLEARFFostoria City HospitalColor (U)YELLOWYELLOWKettering Health Greene Memorial Laboratory - Urinalysison 88-07-2886Efdwqnmzz esterase Test strip Ql (U)Negative NEGATIVEKettering Health Greene MemorialMucus Ql (Urine sed)TRACEAbnormalNONE [facility] Medical CenterNitrite Ql (U)NegativeNEGATIVEKettering Health Greene MemorialProtein (U) [Mass/Vol]101.7 mg/dLHigh<=11.9[facility] MemorialProtein Ql (U)100 mg/dLAbnormalNEG/TRACEKettering Health Greene MemorialLeukocytes [#/volume] corrected for nucleated erythrocytes in Blood by Automated counon 71-39-6661UPL corrected for nucl RBC Auto (Bld) [#/Vol]Leukocytes [#/volume] corrected for nucleated erythrocytes in Blood by Automated coun4.0-11.0[facility]ding [facility] HospitalH Auto (RBC) [Entitic mass]on 65-91-1035OIE (RBC) [Entitic mass]MCH [Entitic mass] by Automated count25.9-34.0[facility]ding County HospitalHC Auto (RBC) [Mass/Vol]on 66-27-2085NFRU (RBC) [Mass/Vol]MCHC [Mass/volume] by Automated count29.9-35.2FUniversity Hospitals Geauga Medical CenterV Auto (RBC) [Entitic vol]on 49-76-3686CHI (RBC) [Entitic vol]MCV [Entitic volume] by Automated countHigh 80.0-94.0[facility] MemorialNo Panel Informationon 57-49-1651Fzhpx BacteriaNONE SEEN #/HPFNONE [facility] Medical CenterUrine Occult BloodTRACE-INEGATIVEKettering Health Greene MemorialUrine Random Creatinine 129.70 mg/dL20.00-300.00[facility] MemorialUrine RBC0-2 #/HPF0-2 [facility] MemorialUrine Squamous Epithelial CellsFEW #/LPF AbnormalNONE/RAREKettering Health Greene MemorialUrine WBC0-2 #/HPFAbnormalNONE SEENKettering Health Greene Memorial25-Hydroxy Vitamin D Total35.2 ng/mL [facility] MemorialComment on above:<20 ng/mL Vit D gimkuoglr59- <30 ng/mL Vit D dxwaaoqqnciy01-196 ng/mL Vit D sufficient>100 ng/mL Potential ToxicityParathyroid Hormone (Intact)175 pg/iJYxedrcio59-01JdhgifvdvKettering Health Greene MemorialComment on above:Performed at: [facility] [id number] Director: Karel Kaye PhD, Phone: [phone] Phosphorus Level3.9 mg/dL2.6-4.7FFostoria City HospitalPlatelet mean volume Auto (Bld) [Entitic vol]on 99-45-3293Brzusbtg mean volume (Bld) [Entitic vol]Platelet mean volume [Entitic volume] in Blood by Automated countLow9.5-13.5 [facility] MemorialPlatelets Auto (Bld) [#/Vol]on 07-14-2024 Platelets (Bld) [#/Vol]Platelets [#/volume] in Blood by Automated countLow 150-450K[facility] MemorialRBC Auto (Bld) [#/Vol]on 47-45-4359JEF (Bld) [#/Vol]Erythrocytes [#/volume] in Blood by Automated countLow4.70-6.10 [facility]uffton Hospitalerum or plasma anion gap determinationon 51-66-3253Mjoyi gap [Moles/Vol]Serum or plasma anion gap determinationKettering Health Greene MemorialUrine protein/creatinine ratioon 07-14-2024 Protein/Creatinine (U) [Ratio]Urine protein/creatinine ratioKettering Health Greene MemorialAlbumin [Mass/volume] in Serum or Plasmaon 99-98-9424Ntnafip [Mass/Vol]Albumin [Mass/volume] in Serum or Plasma2.9-4.4FFostoria City HospitalHepatitis B virus surface Ab [Presence] in Serumon 12-33-1842ZYZ surface Ab Ql (S)Hepatitis B virus surface Ab [Presence] in SerumAbnormal Immunity>10[facility] MemorialComment on above:Status of Immunity Anti-HBs Level Inconsistent with Immunity 0.0 - 10.0Consistent with Immunity >10.0Hepatitis B virus surface Ag [Presence] in Serum or Plasma by Immunoassayon 35-56-3417IIO surface Ag IA QlHepatitis B virus surface Ag [Presence] in Serum or Plasma by ImmunoassayNegativeKettering Health Greene MemorialIgA [Mass/volume] in Serum or Plasmaon 21-03-2221KgR [Mass/Vol]IgA [Mass/volume] in Serum or Gsjhew73-891WgdpdootcKettering Health Greene MemorialIgG [Mass/volume] in Serum or Plasmaon 49-05-1431VcL [Mass/Vol]IgG [Mass/volume] in Serum or Hiymxl003-9054AxfkiofmdKettering Health Greene MemorialIgM [Mass/volume] in Serum or Plasmaon 34-19-2790ObH [Mass/Vol]IgM [Mass/volume] in Serum or Dakawj95-375FungibixqKettering Health Greene MemorialImmunoglobulin light chains.kappa.free [Mass/volume] in Serumon 78-25-2277Dmqjgpmlanmzfs light chains.kappa.free (S) [Mass/Vol]Immunoglobulin light chains.kappa.free [Mass/volume] in SerumAbnormal3.3-19.4FFostoria City Hospital Immunoglobulin light chains.kappa.free/Immunoglobulin light chains.lambda.free [Sean 19-18-7534Vcdjcansarcgeq light chains.kappa.free/Immunoglobulin light chains.lambda.free (S) [Mass ratio]Immunoglobulin light chains.kappa.free/Immunoglobulin light chains.lambda.free [Mass0.26-1.65 [facility] MemorialComment on above:Performed at: [facility] [id number] Director: Karel Kaye PhD, Phone: [phone] light chains.lambda.free [Mass/volume] in Serum or Plasmaon 57-18-9785Cfipsvxclzjxxr light chains.lambda.free [Mass/Vol] Immunoglobulin light chains.lambda.free [Mass/volume] in Serum or PlasmaAbnormal 5.7-26.3FFostoria City HospitalLaboratory - Urinalysison 04-11-2024 Protein (U) [Mass/Vol]104.8 mg/dLHigh<=11.9[facility] MemorialNo Panel Informationon 73-86-405353104701-Ceykgud Vitamin D Total36.9 ng/mLKettering Health Greene MemorialComment on above:<20 ng/mL Vit D xmstcebdu63-<30 ng/mL Vit D kkkahioecfor38-019 ng/mL Vit D sufficient>100 ng/mL Potential Toxicity Hepatitis B Core Total AntibodyNegativeNegativeK[facility]tering Health [facility] Memorial Comment on above:Performed at: [place] [facility] [id number] Director: Karel Kaye PhD, Phone: [phone] Electrophoresis M-SpikeNot Observed g/dLNot ObservedKettering Health Greene MemorialProtein Electrophoresis NoteComment.[facility] Comment on above:Protein electrophoresis scan will follow via computer,mail, or ceramics instructor delivery.Urine Random Gaaadtgphb954.54 mg/dL20.00-300.00[facility] MemorialProtein [Mass/volume] in Serum or Plasmaon 04-11-2024 Protein [Mass/Vol]Protein [Mass/volume] in Serum or Plasma6.0-8.5FMemorial Health Systemerum globulin measurement (mass/volume)on 04-11-2024 Globulin (S) [Mass/Vol]Serum globulin measurement (mass/volume)2.2-3.9[facility] Hospitalerum or plasma albumin/globulin mass ratioon 04-11-2024 Albumin/Globulin [Mass ratio]Serum or plasma albumin/globulin mass ratio0.7-1.7 [facility] Hospitalerum or plasma alpha 1 globulin measurement by electrophoresis (mass/volume)on 87-50-4343Zdjpz 1 globulin Elph [Mass/Vol]Serum or plasma alpha 1 globulin measurement by electrophoresis (mass/volume)0.0-0.4 [facility] Hospitalerum or plasma alpha 2 globulin measurement by electrophoresis (mass/volume)on 27-86-4361Wyfas 2 globulin Elph [Mass/Vol]Serum or plasma alpha 2 globulin measurement by electrophoresis (mass/volume)0.4-1.0 [facility] Hospitalerum or plasma beta globulin measurement by electrophoresis (mass/volume)on 54-96-8740Tfii globulin Elph [Mass/Vol]Serum or plasma beta globulin measurement by electrophoresis (mass/volume)0.7-1.3 [facility] Hospitalerum or plasma gamma globulin measurement by electrophoresis (mass/volume)on 69-54-7958Lrvsg globulin Elph [Mass/Vol]Serum or plasma gamma globulin measurement by electrophoresis (mass/volume)0.4-1.8 [facility] Hospitalerum or plasma immunoelectrophoresis interpretationon 34-53-2559Msxxddgawjnyey IEP [Interp]Serum or plasma immunoelectrophoresis interpretation.[facility] MemorialComment on above:Presence of monoclonal protein is unclear at this time. Suggestrepeat in 3 to 6 months if clinically indicated.Urine protein/creatinine ratioon 86-78-9395Mywveen/Creatinine (U) [Ratio]Urine protein/creatinine ratioKettering Health Greene MemorialBasophils Auto (Bld) [#/Vol]on 64-83-3007Ceaqkciff (Bld) [#/Vol]Automated basophil count0.0-0.1FFostoria City Hospital Basophils/100 WBC Auto (Bld)on 39-47-9063Kgdjfghjb/100 WBC (Bld)Automated basophil %0.2-2.0[facility] MemorialCholesterol in LDL Calc [Mass/Vol]on 83-01-5869Etnmpynmkki in LDL [Mass/Vol]Cholesterol in LDL [Mass/volume] in Serum or Plasma by calculationKettering Health Greene Memorial Comment on above:<100 mg/dl OYYWWQU184-177 mg/dl NEAR OR ABOVE VICTTMQ409-525 mg/dl BORDERLINE LJIC345-882 mg/dl HIGH>190 mg/dl VERY HIGHCholesterol in VLDL Calc [Mass/Vol]on 92-69-6378Lkqpefqmphl in VLDL [Mass/Vol]Cholesterol in VLDL [Mass/volume] in Serum or Plasma by calculationKettering Health Greene Memorial Eosinophils/100 WBC Auto (Bld)on 25-23-1798Jytusvptgbh/100 WBC (Bld)Automated eosinophil %0.9-7.0[facility] MemorialErythrocyte distribution width Auto (RBC) [Ratio]on 61-08-0185Pjjqoqdtszm distribution width (RBC) [Ratio]Erythrocyte distribution width [Ratio] by Automated count11.0-15.0 [facility] MemorialEstimated glomerular filtration rate (GFR) non- Americanon 94-69-3560OKH/1.73 sq M.predicted among non-blacks MDRD (S/P/Bld) [Vol rate/Area]Estimated glomerular filtration rate (GFR) non- AmericanLow>=60 mL/min/1.73m 2FFostoria City HospitalGlobulin Calc (S) [Mass/Vol]on 42-84-4190Xsqbqgnj (S) [Mass/Vol]Serum globulin measurement by calculation (mass/volume)[facility] MemorialHematocrit Auto (Bld) [Volume fraction]on 96-15-9510Wbozcfdfba (Bld) [Volume fraction]Hematocrit [Volume Fraction] of Blood by Automated cavzpKan60.0-54.0[facility] MemorialHemoglobin [Mass/volume] in Bloodon 64-89-6376Cdfrnjffhs (Bld) [Mass/Vol]Hemoglobin [Mass/volume] in KedljQjf07.0-18.0[facility] MemorialLaboratory - Chemistry and Chemistry - challengeon 04-01-2024 Albumin [Mass/Vol]3.2 g/dLLow3.4-5.0[facility] MemorialALP [Catalytic activity/Vol]92 U/O74-078TamndqkfaKettering Health Greene MemorialALT [Catalytic activity/Vol]14 U/LQhu21-63JivptotokKettering Health Greene MemorialAST [Catalytic activity/Vol]12 U/AVrd41-13KmkbvnuuhKettering Health Greene MemorialBilirubin [Mass/Vol]0.4 mg/dL0.2-1.0[facility] MemorialCalcium [Mass/Vol]8.4 mg/dLLow8.5-10.1FFostoria City HospitalChloride [Moles/Vol]109 mmol/L Mift98-096KpxzyzvagKettering Health Greene MemorialCholesterol [Mass/Vol]103 mg/dL<=200 [facility] MemorialCholesterol in HDL [Mass/Vol]36 mg/xGItr81-34 [facility] MemorialComment on above:> or =60 mg/dl - LOW CARDIOVASCULAR RISK<40 mg/dl - HIGH CARDIOVASCULAR RISKCO2 [Moles/Vol]21.1 mmol/L21.0-32.0[facility] MemorialCreatinine [Mass/Vol]3.15 mg/dL High0.70-1.30[facility] MemorialGFR/1.73 sq M.predicted MDRD (S/P/Bld) [Vol rate/Area]23 mL/min/{1.73_m2}Low>=60 mL/min/1.73m 2FFostoria City HospitalGlucose [Mass/Vol]151 mg/wIVkui55-989SybmvelktKettering Health Greene MemorialPotassium [Moles/Vol]4.9 mmol/L3.5-5.1FFostoria City HospitalProtein [Mass/Vol]6.5 g/dL6.4-8.2FMemorial Health Systemodium [Moles/Vol]142 mmol/D872-068AudeiifiqKettering Health Greene MemorialTriglyceride [Mass/Vol]170 mg/dLHigh<=150[facility] MemorialUrea nitrogen [Mass/Vol]48.0 mg/dLHigh7.0-18.0[facility] MemorialUrea nitrogen/Creatinine [Mass ratio]15.2 mg/mgKettering Health Greene Memorial Laboratory - Hematology and Cell countson 84-98-6426Anmrvvem granulocytes/100 WBC (Bld)0.3 %0.0-0.5FFostoria City HospitalLaboratory - Urinalysison 75-13-8070Xzwkcsr (U) [Mass/Vol]94.1 mg/dLHigh<=11.9[facility] MemorialLeukocytes [#/volume] corrected for nucleated erythrocytes in Blood by Automated counon 25-23-4012MLT corrected for nucl RBC Auto (Bld) [#/Vol] Leukocytes [#/volume] corrected for nucleated erythrocytes in Blood by Automated coun4.0-11.0[facility] MemorialLymphocytes Auto (Bld) [#/Vol]on 65-18-7645Bwuiegpnjgd (Bld) [#/Vol]Lymphocytes [#/volume] in Blood by Automated countLow1.2-3.8[facility] MemorialLymphocytes/100 WBC Auto (Bld)on 70-62-7385Dpqgclbnirw/100 WBC (Bld)Lymphocytes/100 leukocytes in Blood by Automated yazbzWvc82.5-60.0[facility] HospitalH Auto (RBC) [Entitic mass]on 63-13-4208TRG (RBC) [Entitic mass]MCH [Entitic mass] by Automated count25.9-34.0[facility] MemorialMCHC Auto (RBC) [Mass/Vol]on 42-44-0412AYOX (RBC) [Mass/Vol]MCHC [Mass/volume] by Automated count29.9-35.2FFostoria City HospitalMCV Auto (RBC) [Entitic vol]on 68-74-7813QWY (RBC) [Entitic vol]MCV [Entitic volume] by Automated countHigh 80.0-94.0[facility] MemorialMonocytes Auto (Bld) [#/Vol]on 93-61-4473Dubmdjtwj (Bld) [#/Vol]Automated blood monocyte count0.3-0.8[facility] MemorialMonocytes/100 WBC Auto (Bld)on 65-38-5201Hwhqbblyn/100 WBC (Bld)Automated monocyte %1.7-12.0[facility] Neutrophils Auto (Bld) [#/Vol]on 52-43-2379Frerydcbhlv (Bld) [#/Vol]Neutrophils [#/volume] in Blood by Automated count1.4-6.5FFostoria City Hospital Neutrophils/100 WBC Auto (Bld)on 67-13-7831Xfztbelvqdg/100 WBC (Bld)Automated neutrophil %High43.0-75.0[facility] MemorialNo Panel Informationon 92-78-5180Yberavlbwqa # (Auto)0.2 10 3/uL0.0-0.7FFostoria City HospitalImmature Granulocyte # (Auto)0.02 10 3/uL0.00-0.03[facility] MemorialProstate Specific Antigen Screen5.63 ng/mLHigh<=4.00[facility] MemorialUrine Random Jczoeizfzd820.93 mg/dL20.00-300.00[facility] MemorialPlatelet mean volume Auto (Bld) [Entitic vol]on 41-81-6532Owxzwqem mean volume (Bld) [Entitic vol]Platelet mean volume [Entitic volume] in Blood by Automated countLow9.5-13.5FFostoria City Hospital Platelets Auto (Bld) [#/Vol]on 73-14-4528Avrktxyni (Bld) [#/Vol]Platelets [#/volume] in Blood by Automated qnnftZnj842-495ShfbhvshhKettering Health Greene MemorialRBC Auto (Bld) [#/Vol]on 10-81-8523QOS (Bld) [#/Vol]Erythrocytes [#/volume] in Blood by Automated countLow4.70-6.10[facility] Hospitalerum or plasma albumin/globulin mass ratioon 94-05-1775Yhhgctd/Globulin [Mass ratio]Serum or plasma albumin/globulin mass ratioBlanchard Valley Health System Bluffton Hospitalerum or plasma anion gap determinationon 84-09-4410Lsgyk gap [Moles/Vol]Serum or plasma anion gap determinationBlanchard Valley Health System Bluffton Hospitalerum or plasma total cholesterol/high density lipoprotein (HDL) cholesterol mass tawanna 57-71-1959Uzewgtryerm.total/Cholesterol in HDL [Mass ratio]Serum or plasma total cholesterol/high density lipoprotein (HDL) cholesterol mass ratKettering Health Greene MemorialComment on above:3.3 - 4.4 LOW RISK4.4 - 7.1 AVERAGE RISK7.1 - 11.0 MODERATE RISK>11.0 HIGH RISKUrine protein/creatinine ratioon 22-74-2594Kcwvhiv/Creatinine (U) [Ratio]Urine protein/creatinine ratioKettering Health Greene MemorialNo Panel Informationon 39-20-5390UQVD HealthcareGlucose mean value [Mass/volume] in Blood Estimated from glycated hemoglobinon 82-78-3876Fysajzp glucose Estimated from glycated hemoglobin (Bld) [Mass/Vol]169 mg/dLKettering Health Greene MemorialLaboratory - Hematology and Cell countson 36-86-1435LbB8r (Bld) [Mass fraction]7.5 %High 4.5-6.2FFostoria City HospitalComment on above:ADA RECOMMENDED LIMIT 4.0 - 6.0ADA THERAPEUTIC TARGET < 7.0ACTION SUGGESTED> 7.0Glucose Glucometer (BldC) [Mass/Vol]Ordered By: Gerry Nelson on 41-14-2017Bmdjvun [Mass/Vol]101 mg/dLKettering Health Greene MemorialComment on above:Random Glucose Reference Range is dependent on time and content of last meal. Glucose of more than 200 mg/dL in a nonstressed, ambulatory subject supports the diagnosis of Diabetes Mellitus.No Panel InformationOrdered By: Gerry Nelson on 55-31-1387Ijiavhx Glucose CommentGlu2: cleaned meterKettering Health Greene MemorialBasophils Auto (Bld) [#/Vol]Ordered By: Gerry Nelson on 62-15-2919Derxmgcaa (Bld) [#/Vol]0.0 10*3/uL0.0-0.2FFostoria City HospitalBasophils/100 WBC Auto (Bld)Ordered By: Gerry Nelson on 00-37-9648Bpeamrbma/100 WBC (Bld)0.4 %. [facility] MemorialCalcium [Mass/volume] in Serum or PlasmaOrdered By: Gerry Nelson on 85-42-8079Yqjohds [Mass/Vol]8.7 mg/dL8.6-10.3FFostoria City HospitalCarbon dioxide, total [Moles/volume] in Serum or Plasma Ordered By: Gerry Nelson on 31-33-8879WT3 [Moles/Vol]22.0 mmol/L21.0-31.0 [facility] MemorialChloride [Moles/volume] in Serum or Plasma Ordered By: Gerry Nelson on 76-82-2181Ihaojhux [Moles/Vol]109 mmol/L98-107 [facility] MemorialCreatinine [Mass/volume] in Serum or Plasma Ordered By: Gerry Nelson on 07-93-8616Djdmezdtsq [Mass/Vol]2.90 mg/dL 0.70-1.30[facility] MemorialEosinophils Auto (Bld) [#/Vol]Ordered By: Gerry Nelson on 94-13-1002Olyusjcfwbs (Bld) [#/Vol]0.1 10*3/uL0.0-0.45 [facility] MemorialEosinophils/100 WBC Auto (Bld)Ordered By: Gerry Nelson on 46-27-1627Igoandwfpbq/100 WBC (Bld)2.4 %.[facility] MemorialErythrocyte distribution width Auto (RBC) [Ratio]Ordered By: Gerry Nelson on 33-92-7947Liaolwvytfr distribution width (RBC) [Ratio]12.7 % 12.0-14.8[facility] MemorialGlucose [Mass/volume] in Serum or PlasmaOrdered By: Gerry Nelson on 69-46-0081Ifwocye [Mass/Vol]227 mg/aL32-190 [facility] MemorialComment on above:ADA recommended reference rangeRandom Glucose Reference Range is dependent on time and content of last meal. Glucose of more than 200 mg/dL in a nonstressed, ambulatory subject supports the diagnosisof Diabetes Mellitus.Hematocrit Auto (Bld) [Volume fraction]Ordered By: Gerry Nelson on 05-71-7119Vjzewvzuwl (Bld) [Volume fraction]33.6 %38.8-50.0[facility] MemorialHemoglobin [Mass/volume] in BloodOrdered By: Gerry Nelson on 53-66-0688Gwpopyejjb (Bld) [Mass/Vol]11.4 g/dL13.0-17.0[facility] MemorialLeukocytes [#/volume] corrected for nucleated erythrocytes in Blood by Automated coun Ordered By: Gerry Nelson on 07-21-0986OBS corrected for nucl RBC Auto (Bld) [#/Vol]6.2 10*3/uL4.1-10.5FFostoria City HospitalLymphocytes Auto (Bld) [#/Vol]Ordered By: Gerry Nelson on 37-09-1068Whhcbqxwidn (Bld) [#/Vol] 0.9 10*3/uL1.00-4.8[facility] MemorialLymphocytes/100 WBC Auto (Bld)Ordered By: Gerry Nelson on 26-33-7233Tkgookevnnn/100 WBC (Bld)14.3 %. [facility] Auto (RBC) [Entitic mass]Ordered By: Gerry Nelson on 85-48-1570QKT (RBC) [Entitic mass]32.7 pg27.5-35.2FThe [facility] Auto (RBC) [Mass/Vol]Ordered By: Gerry Nelson on 53-43-3890MYEE (RBC) [Mass/Vol]34.0 g/dL32.5-35.6FFostoria City HospitalMCV Auto (RBC) [Entitic vol]Ordered By: Gerry Nelson on 05-00-3937EZT (RBC) [Entitic vol]96.1 fL83.5-101[facility] MemorialMonocytes Auto (Bld) [#/Vol]Ordered By: Gerry eNlson on 71-47-0356Hhdpblkvj (Bld) [#/Vol]0.5 10*3/uL0.0-0.8[facility] MemorialMonocytes/100 WBC Auto (Bld)Ordered By: Gerry Nelson on 13-66-1813Pqgityevg/100 WBC (Bld)7.4 %. [facility] MemorialNeutrophils Auto (Bld) [#/Vol]Ordered By: Gerry Nelson on 61-27-4733Rnlwwilagge (Bld) [#/Vol]4.7 10*3/uL1.8-7.7 [facility] MemorialNeutrophils/100 WBC Auto (Bld)Ordered By: Gerry Nelson on 01-10-0467Sclqmhneyzr/100 WBC (Bld)75.5 %.[facility] MemorialNo Panel InformationOrdered By: Gerry Nelson on 08-22-2023 Estimated GFR (CKD-EPI)21.738 mL/MinKettering Health Greene MemorialPharmacy Creatinine Clearance (ChemN/AFFostoria City HospitalNucleated erythrocytes [Presence] in Blood by Automated countOrdered By: Gerry Nelson on 15-51-6364Ogdsmjzjt RBC Auto Ql (Bld)0.0 /100{WBC}0-0.5FFostoria City HospitalPlatelet mean volume Auto (Bld) [Entitic vol]Ordered By: Gerry Nelson on 56-39-9939Biztuqiu mean volume (Bld) [Entitic vol]7.2 fL6.6-10.1 [facility] MemorialPlatelets Auto (Bld) [#/Vol]Ordered By: Gerry Nelson on 48-01-2900Kjipjrljh (Bld) [#/Vol]165 10*3/wD274-420ShrzrxztuKettering Health Greene MemorialPotassium [Moles/volume] in Serum or PlasmaOrdered By: Gerry Nelson on 77-32-6692Fkdilbhup [Moles/Vol]4.7 mmol/L3.5-5.1FFostoria City HospitalRBC Auto (Bld) [#/Vol]Ordered By: Gerry Nelson on 29-57-7399SKC (Bld) [#/Vol]3.50 10*6/uL3.90-5.60[facility] Hospitalerum or plasma anion gap determinationOrdered By: Gerry Nelson on 48-21-3823Zimmz gap [Moles/Vol]12.7 mmol/L6.0-15.0[facility] Hospitalodium [Moles/volume] in Serum or PlasmaOrdered By: Gerry Nelson on 81-71-4280Zrnygr [Moles/Vol]139 mmol/C804-776DririxbcfKettering Health [facility] Memorial Urea nitrogen [Mass/volume] in Serum or PlasmaOrdered By: Gerry Nelson on 55-68-9688Laki nitrogen [Mass/Vol]43 mg/dL7-25[facility] WBC Auto (Bld) [#/Vol]Ordered By: Gerry Nelson on 89-61-3758MIX (Bld) [#/Vol] 6.2 10*3/uL4.1-10.5FFostoria City HospitalGlucose mean value [Mass/volume] in Blood Estimated from glycated hemoglobinon 36-34-5500Fluthpa glucose Estimated from glycated hemoglobin (Bld) [Mass/Vol]163 mg/dLKettering Health Greene MemorialLaboratory - Hematology and Cell countson 56-60-9629UgC6c (Bld) [Mass fraction]7.3 %4.5-6.2FFostoria City HospitalComment on above:ADA RECOMMENDED LIMIT 4.0 - 6.0ADA THERAPEUTIC TARGET < 7.0ACTION SUGGESTED> 7.0CBC AUTO DIFFon 96-36-3061JRSJ #0.0 103/ulNormal0.0-0.1The [facility]zer HospitalComment on above:Performed By: #### CBC #### [facility] [address] [address] [address] Dave DuffyBasophils/100 WBC (Bld)0.2 %Normal0.2-2.0[facility] Comment on above:Performed By: #### CBC #### [facility] [address] [place] [address] Dr. Dave Reynolds #0.2 103/ulNormal0.0-0.7The [facility] HospitalComment on above: Performed By: #### CBC #### [facility] [address] [place] [address] Dr. Dave Clancyosinophils/100 WBC (Bld)2.5 %Normal0.9-7.0[facility] Comment on above:Performed By: #### CBC #### [facility] [address] [place] [address] Dr. Dave Clancyrythrocyte distribution width (RBC) [Ratio]12.3 %Kiaioz85.0-15.0 The [facility] HospitalComment on above:Performed By: #### CBC #### [facility] [address] [place] [address] Dr. Dave DuffyHematocrit (Bld) [Volume fraction]32.8 %Critically low42.0-54.0 The [facility] HospitalComment on above:Performed By: #### CBC #### [facility] [address] [place] [address] Dr. Dave DuffyHemoglobin (Bld) [Mass/Vol]11.4 g/dLCritically low14.0-18.0The [facility] HospitalComment on above:Performed By: #### CBC #### [facility] [address] [place] [address] Dr. Dave Mccormick #0.03 10e3/ulNormal0.00-0.03The [facility] HospitalComment on above:Performed By: #### CBC #### [facility] [address] [place] [address] Dr. Dave Mccormick %0.5 %Normal0.0-0.5The [facility] HospitalComment on above: Performed By: #### CBC #### [facility] [address] [address] [address] aDve Lopez #1.2 103/ulNormal1.2-3.8The [facility] HospitalComment on above:Performed By: #### CBC #### [facility] [address] [address] [address] Dave Casasmphocytes/100 WBC (Bld)18.9 %Critically low20.5-60.0The [facility] HospitalComment on above:Performed By: #### CBC #### [facility] [address] [address] [address] Dave Quezada DIFF REQNONormalThe [facility]zer HospitalComment on above: Performed By: #### CBC #### [facility] [address] [place] [address] Dr. Dave Marrero (RBC) [Entitic mass]32.8 kgMrmafr73.9-34.0The [facility] HospitalComment on above:Performed By: #### CBC #### [facility] [address] [place] [address] Dr. Dave Marrero (RBC) [Mass/Vol]34.8 g/oQTdzgws58.9-35.2The [facility] HospitalComment on above:Performed By: #### CBC #### [facility] [address] [place] [address] Dr. Dave Marrero (RBC) [Entitic vol]94.3 fLCritically high80.0-94.0The [facility] HospitalComment on above:Performed By: #### CBC #### [facility] [address] [place] [address] Dr. Dave Estrada #0.5 103/ulNormal0.3-0.8The [facility] Hospitalment on above:Performed By: #### CBC #### [facility] [address] [place] [address] Dr. Dave Mayberryocytes/100 WBC (Bld)8.9 %Normal1.7-12.0[facility] Comment on above:Performed By: #### CBC #### [facility] [address] [address] [address] Dave Cochran #4.2 103/ulNormal1.4-6.5The [facility] HospitalComment on above:Performed By: #### CBC #### [facility] [address] [address] [address] Dave Mcadamsutrophils/100 WBC (Bld)69.0 %Cqzmkn87.0-75.0The [facility] HospitalComment on above:Performed By: #### CBC #### [facility] [address] [address] [address] Dave Caselet mean volume (Bld) [Entitic vol]8.7 fLCritically low 9.5-13.5The [facility] HospitalComment on above:Performed By: #### CBC #### [facility] [address] [place] [address] Dr. Dave DuffyPLT166 103/muBthrym956-114Lpl [facility] HospitalComment on above: Performed By: #### CBC #### [facility] [address] [place] [address] Dr. Dave DuffyRBC3.48 106/ulCritically low4.70-6.10The [facility] HospitalComment on above:Performed By: #### CBC #### [facility] [address] [place] [address] Dr. Dave DuffyWBC6.1 103/ulNormal4.0-11.0The [facility] HospitalComment on above: Performed By: #### CBC #### [facility] [address] [place] [address] Dr. Dave DuffyLIPID PROFILEon 83-63-8938QCYZ-HDL RATIO NORMSEE [facility] HospitalComment on above:Result Comment: 3.3 - 4.4 LOW RISK 4.4 - 7.1 AVERAGE RISK 7.1 - 11.0 MODERATE RISK >11.0 HIGH RISKPerformed By: #### CMP, LIPID #### [facility] [address] [place], [place] [id number] Dr. Dave DuffyCholesterol [Mass/Vol]106 mg/dLNormal<=200[facility] Comment on above:Performed By: #### CMP, LIPID #### [facility] [address] [address] [address] Dave DuffyCholesterol in HDL [Mass/Vol]36 mg/dLCritically kwm27-17Lhu [facility] HospitalComment on above:Performed By: #### CMP, LIPID #### [facility] [address] [address] [address] Dave DuffyCholesterol in LDL [Mass/Vol]43.4 mg/dLSelect Medical Specialty Hospital - Columbus SouthComment on above:Performed By: #### CMP, LIPID #### [facility] [address] [place] [address] Dr. Dave Sheffieldestertoni.total/Cholesterol in HDL [Mass ratio]2.9 {ratio} NormalParkview Health Bryan HospitalComment on above:Performed By: #### CMP, LIPID #### [facility] [address] [place] [address] Dr. Dave Albert NORMAL> or = 60 mg/dl - LOW CARDIOVASCULAR RISK <40 mg/dl - HIGH CARDIOVASCULAR RISKSelect Medical Specialty Hospital - Columbus SouthComment on above:Performed By: #### CMP, LIPID #### [facility] [address] [place] [address] Dr. Dave Miranda CALC NORMALSEE BELOWSelect Medical Specialty Hospital - Columbus SouthComment on above:Result Comment: <100 mg/dl OPTIMAL 100 - 129 mg/dl NEAR OR ABOVE OPTIMAL 130 - 159 mg/dl BORDERLINE HIGH 160 - 189 mg/dl HIGH >190 mg/dl VERY HIGH Performed By: #### CMP, LIPID #### [facility] [address] [place] [address] Dr. Dave DuffyTriglyceride [Mass/Vol]133 mg/dLNormal<=150[facility] Comment on above:Performed By: #### CMP, LIPID #### [facility] [address] [place] [address] Dr. Dave DuffyVLDL CALC26.6 mg/dLNormalThe [facility] HospitalComment on above: Performed By: #### CMP, LIPID #### [facility] [address] [address] [address] Dave Camilo, RAND URon 99-85-6338vKQY50.6 mg/LNormal<=30.0The [facility] HospitalComment on above:Performed By: #### MALBR #### [facility] [address] [place] [address] Dr. Dave DuffyPROF 14(COMP METB)on 39-38-6262Kpkhzfq [Mass/Vol]3.6 g/dLNormal 3.4-5.0The [facility] HospitalComment on above:Performed By: #### CMP, LIPID #### [facility] [address] [place] [address] Dr. Dave DuffyAlbumin/Globulin [Mass ratio]1.2 {ratio}NormalThe [facility] HospitalComment on above:Performed By: #### CMP, LIPID #### [facility] Laboratory [address] [place] [address] [Catalytic activity/Vol]102 U/IUzfnkp33-091Wvc [facility] HospitalComment on above:Performed By: #### CMP, LIPID #### [facility] [address] [place] [address] Dr. Dave Hernandez [Catalytic activity/Vol]22 U/CQtmifk33-37Qtn [facility] HospitalComment on above:Performed By: #### CMP, LIPID #### [facility] [address] [place] [address] Dr. Dave Ng gap [Moles/Vol]10.8 mmol/LNormalThe [facility] Comment on above:Performed By: #### CMP, LIPID #### [facility] [address] [place] [address] Dr. Dave Armendariz [Catalytic activity/Vol]13 U/LCritically osg72-16Fpn [facility] HospitalComment on above:Performed By: #### CMP, LIPID #### [facility] [address] [place] [address] Dr. Dave DuffyBilirubin [Mass/Vol]0.5 mg/dLNormal0.2-1.0[facility] Comment on above:Performed By: #### CMP, LIPID #### [facility] [address] [address] [address] Dave DuffyCalcium [Mass/Vol]8.6 mg/dLNormal8.5-10.1[facility] Comment on above:Performed By: #### CMP, LIPID #### [facility] [address] [address] [address] Dave DuffyChloride [Moles/Vol]107 mmol/GIszavm89-104Kui [facility] Comment on above:Performed By: #### CMP, LIPID #### [facility] [address] [place] [address] Dr. Dvae DuffyCO2 [Moles/Vol]25.7 mmol/TYlkdhm43.0-32.0[facility] Comment on above:Performed By: #### CMP, LIPID #### [facility] [address] [place] [address] Dr. Dave DuffyCreatinine [Mass/Vol]2.99 mg/dLCritically high0.70-1.30The [facility] HospitalComment on above:Performed By: #### CMP, LIPID #### [facility] [address] [place] [address] Dr. Dave ClancyGFR-AF FRLPOXTI37 mL/min/1.21v2Gvhnhzisql low>=60The [facility] HospitalComment on above:Performed By: #### CMP, LIPID #### [facility] [address] [place] [address] Dr. Dave ClancyGFR-NON AF LWAZYXHY51 mL/min/1.15s8Hwyxjtggzj low>=60The [facility] HospitalComment on above:Performed By: #### CMP, LIPID #### [facility] [address] [address] [address] Dave DuffyGlobulin (S) [Mass/Vol]3.1 g/dLNormalThe [facility] HospitalComment on above:Performed By: #### CMP, LIPID #### [facility] [address] [address] [address] Dave DuffyGlucose [Mass/Vol]106 mg/yAOfadfo17-539IsxParkview Health Bryan Hospital Comment on above:Performed By: #### CMP, LIPID #### [facility] [address] [address] [address] Dave DuffyPotassium [Moles/Vol]4.5 mmol/LNormal3.5-5.1[facility] Comment on above:Performed By: #### CMP, LIPID #### [facility] [address] [place] [address] Dr. Dave DuffyProtein [Mass/Vol]6.7 g/dLNormal6.4-8.2[facility] Comment on above:Performed By: #### CMP, LIPID #### [facility] [address] [place] [address] Dr. Dave DuffySodium [Moles/Vol]139 mmol/GDkefdh627-625Cgq [facility] Comment on above:Performed By: #### CMP, LIPID #### [facility] [address] [place] [address] Dr. Dave DuffyUrea nitrogen [Mass/Vol]43.0 mg/dLCritically high7.0-18.0[facility] HospitalComment on above:Performed By: #### CMP, LIPID #### [facility] [address] [place] [address] Dr. Dave DuffyUrea nitrogen/Creatinine [Mass ratio]14.4 mg/mgNormalThe [facility]zer HospitalComment on above:Performed By: #### CMP, LIPID #### [facility] [address] [place] [address] Dr. Dave DuffyXR FLUORO < 1 HRon [id number] FLUORO < 1 HREXAMINATION: XR FLUORO < 1 HR HISTORY: Disorder [...] Electronically authenticated by: ALONZO MADRIGAL Date: 2022-03-05 11:26[facility] [place] SouthCNPNon [id number] (HEMASA) EUGENIO CREWS ([id number]) 1945 M [facility] Date Time Provider Department 02/24/22 ROSELYN PAGE [...] 02/21/2022 Encounter Status:Closed by ROSELYN PAGE on 02/24/22NoGlenbeigh HospitalDejuan [id number] (HEMTSA) EUGENIO CREWS ([id number]) 1945 M TRN Date Time Provider Department [...] 02/21/2022 Encounter Status:Closed by EAMON BISWAS on 03/02/22NoUniversity Hospitals Beachwood Medical CenterPNon [id number] (HEMTSA) EUGENIO CREWS ([id number]) 1945 M TRN Date Time Provider Department [...] accessed 2 days in a row at [facility] and there was swelling above port site. Dr. Reyes thought perhaps the nurse missed as they use a smaller port at [facility] which is where he had it placed. Informed that if we have swelling while patient is here, we would not proceed. verbalized understanding. PSS: please call patient/ to schedule on infusion schedule for possible 2 doses of activase. Jamia: Can you get an xray that was taken of the port at [facility] recently. ( states they did [...] Visit Diagnosis:Obstruction of central line, initial encounter (HCC) [T82.594A] Prescriptions as of 02/21/2022 - atorvastatin [...] 02/21/2022 Encounter Status:Closed by AILEEN JENKINS on 02/21/22NoGlenbeigh HospitalGLYCOHEMOGLOBIN A1Con 81-26-2007LVB RECOMMENDATIONSEE [facility] Union HospitalComment on above:Result Comment: ADA RECOMMENDED LIMIT 4.0 - 6.0 ADA THERAPEUTIC TARGET < 7.0 ACTION SUGGESTED > 7.0Performed By: #### DATA1C #### [facility] [address] [place] [address] Dr. Dave DuffyGlucose [Mass/Vol]166 mg/dLSelect Medical Specialty Hospital - [place] SouthComment on above:Performed By: #### DATA1C #### [facility] [address] [place] [address] Dr. Dave DuffyHbA1c (Bld) [Mass fraction]7.4 %Critically high4.5-6.2The [facility]zer HospitalComment on above:Performed By: #### DATA1C #### [facility] [address] [place] [address] Dr. Dave DuffyXR CHEST 2 Von [id number] CHEST 2 VEXAMINATION: XR CHEST 2 V HISTORY: Mass of [...] Electronically authenticated by: ALONZO MADRIGAL Date: 2022-02-07 12:00[facility] [place] SouthPOINT OF CARE GLUCOSEon [id number] [Mass/Vol]163 mg/dL Critically xxyw83-955Xjs [facility] HospitalComment on above:Performed By: #### POCGLUC #### [facility] [address] [place] [address] Dr. Dave DuffyCNPNon [id number] (HEMASA) EUGENIO CREWS ([id number]) 1945 M TRN Date Time Provider Department 04/26/21 ELIA BAL During your visit today, we recorded the following information about you: Elia Bal RN 04/26/2021 2:52 PM Signed Received call from [facility] at Dr Chang's office stating they needed to know what pt's port is being flushed with. [facility] informed pt is getting 20cc NS followed by 5cc Heparin. [facility] verbalizes understanding and denies further needs at this time. 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 HospitalCNOVSPon [id number] ([place]) Office (HEMASA) EUGENIO CREWS ([id number]) 1945 M TRN Date Time Provider Department 03/23/21 1:30 PM KENDALL HONEYCUTT During your visit today, we recorded the following information about you: Temperature Pulse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 Start: 49-47-8127Qte-patient / Non-visitFirelands Physician Group-[facility] Work Phone: Start: 28-49-7683Wnz-patient / Non-visitFirelands Physician Group-[facility] Work Phone: Start: 03-31-2024 End: 53-68-8554ntbdnzqwfzWyhcmjqpkLima Memorial Hospital Work Phone: Start: 03-31-2024 End: 26-61-6087Fffbsxl encounter procedureDosher Memorial Hospital Physician Group-[facility] Work Phone: Start: 36-74-9330Gevaxol encounter procedureBlanchard Valley Health [facility] Bluffton Hospitaltart: 03-21-2024 End: 53-86-8412Trvfzd flowsheetNatalie A Felter BURIAL VAULT MAKER-MINCING MACHINE OPERATOR Work Phone: noms SWS DERMStart: 03-21-2024 End: 27-66-6734Smpwxm flowsheetNatalie A Felter BURIAL VAULT MAKER-MINCING MACHINE OPERATOR Work Phone: noms SWS DERMStart: 03-21-2024 End: 44-27-5384Lhaspi outpatient visit 15 minutesNatalie A Felter BURIAL VAULT MAKER-MINCING MACHINE OPERATOR Work Phone: noms SWS DERMComment on above:Melanocytic nevus of right upper extremity; Melanocytic nevus of left upper extremity; Seborrheic keratosis; Actinic keratosis; Capillary angioma; History of SCC (squamous cell carcinoma) of skinStart: 02-05-2024 End: 33-99-2201wgqrcrvhnlHsohwiwfnGrant Hospital Work Phone: Start: 02-05-2024 End: 71-82-8134Azlclvj encounter procedureDosher Memorial Hospital Physician Group-[facility] Work Phone: Start: 12-31-2023 End: 91-17-7960xzyvxazizrXxoqqhzhsGrant Hospital Work Phone: Start: 12-31-2023 End: 54-98-7967Jahlwsh encounter procedureDosher Memorial Hospital Physician Group-[facility] Work Phone: Start: 27-42-1219Opp-patient / Non-visitFirsentara [facility] Physician [facility] Work Phone: Start: 11-28-2023 End: 68-10-0876rugnxvckwyXnpdzpmtcGrant Hospital Work Phone: Start: 11-28-2023 End: 41-46-3944Hiqrsbk encounter procedureFirelands Physician Group-[facility] Work Phone: Start: 11-02-2023 End: 41-13-0197dlgigursmuLQ Gerry Chang Work Phone: [facility] Work Phone: Start: 11-02-2023 End: 19-11-3582Qfjoohq encounter procedureDO Gerry Chang Work Phone: [facility] Work Phone: Start: 09-12-2023 End: 52-14-7694oaonqlloyjVR Gerry Chang Work Phone: [facility] Work Phone: Start: 09-12-2023 End: 60-19-7356Cnndkjv encounter procedureDO Gerry Chang Work Phone: [facility] Work Phone: Start: 08-28-2023 End: 37-21-4147Tejmewdbd to same day surgery centerDO Gerry Chang Work Phone: [facility] CompanyStart: 08-28-2023 End: 80-96-1267xgcimflgpeRS Gerry Chang Work Phone: [facility] Work Phone: start: 08-22-2023 End: 76-24-4503nkgdmozkbxFZ Gerry Chang Work Phone: [facility] Work Phone: Start: 08-22-2023 End: 90-49-4826Acycktc encounter procedureDO Gerry Chang Work Phone: [facility] Work Phone: start: 08-10-2023 End: 50-28-9656Evtmbjm encounter procedureDO Gerry Chang Work Phone: [facility] Work Phone: start: 15-17-0481Ilq-patient / Non-visitDO Gerry Chang Work Phone: firsent[facility] Phys[facility] Work Phone: Start: 07-30-2023 End: 08-02-2107vaaqqlwcqtMzlznymzeLima Memorial Hospital Work Phone: Start: 07-30-2023 End: 82-12-5880Fmswoik encounter procedureDosher Memorial Hospital Physician Group-[facility] Work Phone: Start: 14-35-1934Hfs-patient / Non-visitFirsentara [facility] Physician [facility] Work Phone: Start: 07-03-2023 End: 46-66-4895cxftdhnpeuPgvtvbdc Ball Other [employer] Other Start: 88-01-3443Kwniqbo evaluation of patient and reportBenkamini Helm [facility] ClinicStart: 03-29-2023 End: 95-00-1441zfqvmhdwasBaqxiznk Ball Other [employer] Other Start: 45-45-7371Tnrqimslj encounterBenkamini Chang Medical ClinicStart: 03-27-2023 End: 21-97-3623mjwmtrggkuMstnswvi Ball Other [employer] Other Start: 34-90-8556Meryndk encounter procedureBenkamini SwartzG [facility] ClinicStart: 03-02-2023 End: 05-03-4968ukghdghkgvCebdyubo Ball Other [employer] Other Start: 57-47-4887Dgbevv outpatient visit 15 minutes Gerry Alicja [facility] ClinicStart: 08-00-7966Woktkueyg encounterBenjamin MaximeG [facility] ClinicStart: 02-06-2023 End: 50-81-9786elwnzoifyxTfxdtihq Ball Other [employer] Other Start: 89-10-5824Qdwqbnu evaluation of patient and reportBenjamin BallFPG [facility] ClinicStart: 14-27-6011Aldsbefxh encounter Gerry BallFPG [facility] ClinicStart: 01-01-2023 End: 44-90-2148vgokzpiroxQxsdzlda Ball Other [employer] Other Start: 72-61-6194Kghnbtc evaluation of patient and reportBenjamin BallFPG [facility] ClinicStart: 11-27-2022 End: 11-64-2670wpjasrlgvyGofihaje Ball Other [employer] Other Start: 53-25-5314Knlkycg evaluation of patient and reportBenjamin BallFPG [facility] ClinicStart: 10-18-2022 End: 34-69-3707qsdtfzhegcQE GERRY BALLFacility:H0Brzdp: 09-06-2022 End: 90-55-4924bfhrekoffaQI GERRY BALLFacility:V9Ilrqz: 09-04-2022 End: 94-59-0575etjmjrzxoqVtikmufp Ball Other [employer] Other Start: 84-15-2373Wasqpzcnm encounterBenjamin BallFPG [facility] ClinicStart: 08-28-2022 End: 26-81-1203tczgtfskfqQwoupkow Ball Other [employer] Other Start: 94-15-9624Brrivly evaluation of patient and reportBenjamin BallFPG [facility] ClinicStart: 07-27-2022 End: 28-96-7591yeaoztkrjwRagpltmw Ball Other [employer] Other Start: 65-47-5111Omlrsdj evaluation of patient and reportBejonathan Chang Medical ClinicStart: 07-26-2022 End: 13-49-0574kmtfuxylohIQ GERRY BALLFacility:X1Fwnyj: 07-07-2022 End: 97-25-6766kqbdgbusblXkpdowfb Ball Other [employer] Other Start: 99-17-3268Elzawprcr encounterBejonathan Chang Medical ClinicStart: 06-26-2022 End: 83-71-9199gfyqsgsiftFlmibrsh Ball Other [facility] [employer] Other Start: 19-07-2428Ayfoadc evaluation of patient and reportGerry Chang Medical ClinicStart: 06-14-2022 End: 97-40-6430snuegjismnCY GERRY BALLFacility:O4Gglpx: 05-17-2022 End: 47-16-7793lvsmlikuemPJ GERRY BALLFacility:O8Pescx: 05-03-2022 End: 13-81-6685gemfzwsocbSX GERRY BALLFacility:J7Wxxbr: 04-05-2022 End: 72-35-3977sflqxgfhsdFJ GERRY BALLFacility:H9Udeuo: 04-03-2022 End: 28-91-3927Kemnbhy encounter procedureJenaro HANSEN [facility] start: 06-86-9085Gvtbs health examinationBejonathan Chang Other [facility] [employer] Other Start: 57-96-1341Mzl-procedure evaluation check Gerry Chang Other [employer] Other Start: 31-51-1404shuahcdzcxGB GERRY BALLFacility:H1 Start: 48-70-0759Phtgppqlg encounterKendall Honeycutt APRN.CNP Work Phone: Hematology/OncologyComment on above:Lab OrdersStart: 03-03-2022 End: 22-42-3133rnapllwcsrZS MICHAEL E GRILLIS .Facility:Y9Qwjpc: 03-03-2022 End: 53-59-6423ugkhiiixriOZ BENJAMIN BALLFacility:O4Jufvz: 02-27-2022 End: 13-26-5526lywnaemdfuMpopp [address] [place] Work Phone: Hematology/OncologyComment on above:Obstruction of central line, initial encounter (HCC) (Primary Dx); Follicular lymphoma, unspecified follicular lymphoma type, unspecified body region (HCC)Start: 50-75-3459Fsurtqwlb encounterFeagustina Biswas shipyard painting supervisor/OncologyComment on above:Treatment PlanningStart: 04-18-0477Yekkdnymo encounterAileen Jenkins RNHematology/OncologyComment on above:port issuesStart: 02-07-2022 End: 64-29-5889jpxwdznanyDU BENJAMIN BALLFacility:D7Xfouv: 02-07-2022 End: 67-36-0607briatzxqiyKO BENJAMIN BALLFacility:T8Nrobj: 12-27-2021 End: 87-48-5334tlhmnedodbBZ BENJAMIN BALLFacility:N8Slufe: 11-17-2021 End: 36-14-2624wqvecxmbhyJO BENJAMIN BALLFacility:G7Ljplj: 11-16-2021 End: 30-98-5913cyprhbubphII MICHAEL E GRILLIS .Facility:E2Aqoju: 11-15-2021 End: 76-83-9032ysxdceuqokAU BENJAMIN BALLFacility:Z0Pcdjg: 55-88-3422mhpcyiiena DR BLADIMIR REYES .Facility:X8Geofs: 11-09-2021 End: 76-07-1347azzdlpxajnOQ DAVID V WESTFacility:Z5Jbqkc: 03-23-2021 End: 67-81-9102gzmmjnxkaxJXQCU KARAMLOHenry County Hospitalveland Procedures DateProcedureProcedure DetailPerforming ClinicianStart: 04-02-2025 End: 77-41-0527FKUO / NAIL BIOPSYNatalie A Felter BURIAL VAULT MAKER-MINCING MACHINE OPERATOR Work Phone: Start: 64-59-5370XMSTXNHPKDB SKIN LESIONNatalie A Felter BURIAL VAULT MAKER-MINCING MACHINE OPERATOR Work Phone: Start: 26-10-7151Vbyze X-ray abdomenBenjamin Ball DO Work Phone: Start: 60-40-2050Jpzas X-ray abdomenBenjamin Ball DO Work Phone: Start: 46-74-1451Wipgl cultureBenjamin Ball DO Work Phone: Start: 00-62-0358DLHUAPMEPDU SKIN LESIONNatalie A Felter BURIAL VAULT MAKER-MINCING MACHINE OPERATOR Work Phone: Start: 59-42-9729Sevtkqfi of lesion of cheekDO Gerry Chang Work Phone: Start: 57-55-9962ODB screeningDR GERRY BERNARDOComment on above:Performed By: #### PSAD #### [facility] [address] [place] [address] Dr. Dave DuffyStart: 02-04-1985Zxptm depression screening assessmentAileen Jenkins RNStart: 15-59-8873NdhxualszueAximjoys Long RNStart: 13-65-2231Aeewycskxo Jenaro datango Start: 24-64-5926Ufgcimzbyp studiesPaDownloadperu.comkindra datango Start: 64-53-0698NcllkqitooMcragpx HANSEN Start: 96-58-6745DedojpjbacmgbrrBnkequt HANSEN ColonoscopyPatrick datango Depression screeningBenjamin Ball Other EsophagogastroduodenoscopyPaDownloadperu.comk datango H/O: artificial jointBenjamin Ball Other H/O: artificial jointBenjamin Ball Other LaparoscopyPatrick JADE Partial resection of colonPatrick JADE Total knee replacementPatrick JADE Transurethral biopsy prostatePacarlos HANSEN Transurethral prostatectomyPacarlos HANSEN Plan of Treatment DateCare ActivityDetailAuthorStart: 22-60-1835YGzS/Tdap/Td Vaccines (4 - Tdap) DTaP/Tdap/Td Vaccines (4 - Tdap)[facility] HealthcareStart: 10-01-2025 End: 21-92-3211Jnkehri encounter veiictwma07/30/2026 8:35 AM EDT Office Visit [facility] [address] [place] [address] Ashley Manzano, BURIAL VAULT MAKER-MINCING MACHINE OPERATOR [address] [place] [address] [facility] DermatologyStart: 80-68-6307OHVSJ-19 Vaccine ( season)COVID-19 Vaccine ( season)[facility] HealthcareStart: 40-53-3817OjrfurjoyBlanchard Valley Health System Bluffton Hospitaltart: 04-02-2025 End: 13-10-4414Vbikfec encounter procedureNOMS SWS DERMComment on above:Arrived Start: 65-48-6247IspithvknMadison Health CenterStart: 95-09-9009ZfsapxropBlanchard Valley Health System Bluffton Hospitaltart: 88-34-5411MubqnbdgoMadison Health CenterStart: 83-43-7965FvmtrphulMadison Health CenterStart: 24-97-2492XtrecmypeMadison Health CenterStart: 65-42-3648AbguhbphsMadison Health CenterStart: 88-71-6442UngkibjocMadison Health CenterStart: 95-01-2755YhegbuacvBlanchard Valley Health System Bluffton Hospitaltart: 05-30-3758Mnyof X-ray abdomenXR abdomen min 2VBlanchard Valley Health System Bluffton Hospitaltart: 03-25-2025 End: 47-99-4896MtbbyepwuBlanchard Valley Health System Bluffton Hospitaltart: 67-04-1861Vigqszws admissionBlanchard Valley Health System Bluff[facility] Hospitaltart: 46-70-7484Vszhmvue to general surgeonBlanchard Valley Health System Bluffton Hospitaltart: 27-31-6604FlnkakxcrBlanchard Valley Health System Bluffton Hospitaltart: 03-23-2025 End: 56-26-6652Mfagr cultureBlanchard Valley Health System Bluffton Hospitaltart: 03-23-2025 Bacteria identified in Urine by CultureUrine CultureBlanchard Valley Health System Bluffton Hospitaltart: 03-21-2024 End: 85-94-4119Zzexxwa encounter jonrwdzan03/18/2024 8:30 AM EDT [facility] [address] [place] [phone] Ashley Manzano APRN-MINCING MACHINE OPERATOR [address] [place] [address] ArrivedNOMS [facility] DERMComment on above: ArrivedStart: 45-88-6739Ijlhcwnqk vaccinationInfluenza Vaccine (#1)[facility] HealthcareStart: 52-91-7923ZfeccoepsBlanchard Valley Health System Bluff[facility] Hospitaltart: 08-28-2023 [facility]tart: 32-90-7590SRNZVGPTST CANCER SCREENING COLORECTAL CANCER SCREENINGNewark Hospitaltart: 88-76-1297SYNWO OCCULT BLOOD FECAL OCCULT BLOODNewark Hospitaltart: 03-13-2022 End: 01-06-8651QEJ W Auto Differential panel - BloodCBC + DIFF Lab Routine Non- Hodgkin's lymphoma, unspecified body region, unspecified non-Hodgkin lymphoma type (HCC) Expected: 03/13/2022, Expires: 05/13/2022[facility] Work Phone: Comment on above:Expected: 03/13/2022, Expires: 05/13/2022tart: 03-13-2022 End: 21-35-4477Rkgiuhexuxazg metabolic 2000 panel - Serum or PlasmaCOMP METABOLIC PANEL Lab Routine Non-Hodgkin's lymphoma, unspecified body region, unspecified non-Hodgkin lymphoma type (HCC) Expected: 03/13/2022, Expires: 05/13/2022[facility] Work Phone: Comment on above:Expected: 03/13/2022, Expires: 05/13/2022tart: 03-13-2022 End: 26-13-6292Cienxdd dehydrogenase [Enzymatic activity/volume] in Serum or PlasmaLD LACTATE DEHYDRO Lab Routine Non-Hodgkin's lymphoma, unspecified body region, unspecified non-Hodgkin lymphoma type (HCC) Expected: 03/13/2022, Expires: 05/13/2022[facility] Work Phone: Comment on above:Expected: 03/13/2022, Expires: 05/13/2022tart: 02-38-4096Nxhgldvyg vaccinationINFLUENZA (#1)[facility] Start: 60-49-1338Muevn depression screening assessmentDEPRESSION SCREENING [facility] Hospitaltart: 27-07-7478GabbnisjdkrMLEADMWFMPWLfyjcjewf ClinicStart: 83-18-5723CEPQNRH DIRECTIVE DISCUSSIONADVANCE DIRECTIVE DISCUSSIONNewark Hospitaltart: 68-32-8561OPIWBKXCVE ASSESSMENTDEPRESSION ASSESSMENTNewark Hospitaltart: 26-72-4305LHENV-19 VACCINE (4 - Booster for Pfizer series)COVID-19 VACCINE (4 - Booster for Pfizer series)[facility]: 1992 COLOGUARD (FIT-DNA)COLOGUARD (FIT-DNA)[facility]: 22-08-6500GS COLONOGRAPHYCT COLONOGRAPHYNewark Hospitaltart: 26-43-3561YEAQLQPUVECFI SIGMOIDOSCOPYNewark Hospitaltart: 19-45-7212Szcrb microalbumin profile DTAP,TDAP,TD (1 - Tdap)[facility]: 17-75-6088PJPDVX PCP TEAM CHRONIC DISEASE VISITANNUAL PCP TEAM CHRONIC DISEASE VISITNewark Hospitaltart: 61-31-3573Fhaxcaets B surface antibody levelLDL CHOLESTEROLTrihealth Start: 08-17-8950ULXRIRDDL C SCREENINGHEPATITIS C SCREENINGTrihealth Start: comp foot exam completedDIABETIC FOOT EXAMTrihealth Start: 44-22-6104Ssmdbgksf C antibody, confirmatory testDILATED RETINAL EXAM [facility]: 65-05-0000SXLJLSWTTXRC: 65+ (1 - PCV)PNEUMOCOCCAL: 65+ (1 - PCV)[facility]: 03-94-6231Fhpcaboaat A1c/Hemoglobin.total in Blood OBO4LQdbdqrwig ClinicAnion gap measurementKettering Health [facility] Memorial Basophils [#/volume] in Blood by Automated [facility] CenterBasophils/100 leukocytes in Blood by Automated [facility] CenterComprehensive metabolic 2000 panel - Serum or PlasmaKettering Health Greene MemorialDermatopathology examDermatopathology exam Pathology and Cytology Timed Neoplasm of unspecified behavior of bone, soft tissue, and skin Release Upon Ordering for 1 Occurrences starting 04/02/2025[facility] Work Phone: comment on above:Release Upon Ordering for 1 Occurrences starting 04/02/2025Eosinophils/100 leukocytes in Blood by Automated [facility] Medical CenterErythrocyte distribution width [Ratio] by Automated [facility] CenterErythrocytes [#/volume] in Blood [facility] MemorialGlomerular filtration rate [Volume Rate/Area] in Serum, Plasma or Blood by CreatinineKettering Health [facility] Memorial Hematocrit [Volume Fraction] of [facility] HospitalHemoglobin [Mass/volume] in [facility] HospitalLeukocytes [#/volume] corrected for nucleated erythrocytes in Blood by Automated counKettering Health Greene MemorialLeukocytes [#/volume] in BloodKettering Health Greene MemorialLymphocytes [#/volume] in Blood by Automated [facility] CenterLymphocytes/100 leukocytes in Blood by Automated [facility] CenterMCH [Entitic mass] by Automated [facility] CenterMCHC [Mass/volume] by Automated [facility] CenterMCV [Entitic volume] by Automated [facility] Monocytes [#/volume] in Blood by Automated [facility] CenterMonocytes/100 leukocytes in Blood by Automated [facility] CenterNeutrophils [#/volume] in Blood by Automated [facility] CenterNeutrophils/100 leukocytes in Blood by Automated count [facility] MemorialNucleated erythrocytes [Presence] in Blood by Automated [facility] CenterPatient EducationKnow your Meds [facility] Work Phone: Patient referralMadison Health Ctr Work Phone: Platelet mean volume [Entitic volume] in Blood by Automated countKettering Health Greene MemorialPlatelets [#/volume] in Blood [facility] MemorialRenal function 1999 panel - Serum or Plasma [facility] MemorialRenal function 1999 panel - Serum or Plasma [facility] MemorialRenal function 1999 panel - Serum or Plasma [facility] MemorialRenal function 1999 panel - Serum or Plasma [facility] Immunizations Immunization DateImmunizationNotesCare WzzvsozjPxueucxx52-27-7710lmsvcwmvq virus vaccine, unspecified formulationNatalie Felter B[employer]IAL [employer] MAKER-MINCING MACHINE OPERATOR Work Phone: [facility]10-10-2023COVID-19 Vaccine Pfizer - Documentation Purposes OnlyGerry Chang Other [facility]10-10-2023influenza virus vaccine, unspecified formulationK[facility]tering Health [facility] Memorial 58-68-6416Qrqenqfqp, Seasonal, Quadrivalent, AdjuvantedNatalie Felter B[employer] MAKER-MINCING MACHINE OPERATOR Work Phone: [facility] LawnOpapgbzvbd49-10-3765iwchlkkqg, high dose seasonal, preservative-freeGerry Chang Other [employer] Other [id number] virus vaccine, split virus (incl. purified surface antigen)Gerry Chang Other [employer] Other [id number] virus vaccine, unspecified formulationK[facility]09-22-2022Influenza, Seasonal, Quadrivalent, AdjuvantedNatalie Felter B[employer]IAL VA[employer] MAKER-MINCING MACHINE OPERATOR Work Phone: [facility] LawnYxdjzrdzix43-51-2794GPSR-EhD-3 (COVID-19) mRNAMUL.ORD![id number] HANSEN [facility]04-12-2022SARS-CoV-2 mRNA (azeyaembqta-tdsb-kebajrs) vaccineDerma Sciences [facility]09-24-2021influenza virus vaccine, split virus (incl. purified surface antigen)Gerry Chang Other [place] [employer] Other [id number] virus vaccine, unspecified formulationK[facility]tering Health [facility] Memorial09-24-2021Seasonal trivalent influenza vaccine, adjuvanted, preservative freeAileen Jenkins [facility] 87-03-8189RPNR-CoV-2 (COVID-19) mRNA BNT-162b2 vaxJenaro HANSEN [facility]Comment on above:Result Comment: 2024-04-14: [id number]-16 Vaccine Pfizer - Documentation Purposes OnlyGerry Chang Other [facility] MemorialComment on above: Result Comment: 2024-04-14: VBS3929-06-2718WAAFX-37 Vaccine Pfizer - Documentation Purposes OnlyGerry Chang Other [facility] MemorialComment on above: Result Comment: 2024-04-14: KSN7048-31-7300udkpygara virus vaccine, unspecified formulationKyPrecision Repair Network [facility]09-03-2020influenza, high-dose, quadrivalent vaccine (FLUZONE HIGH DOSE QUADRIVALENT)Aileen Jenkins [facility] CampusAmferz92-84-3488csdify vaccine Vladimir Jenkins [facility] CampusHlxnvv56-57-3196igczdg vaccine recombinant Aileen Jenkins [facility] CampusFehghw06-01-4477ccfgcbxib virus vaccine, split virus (incl. purified surface antigen)Gerry Chang Other [employer] [employer] Other [id number] virus vaccine, unspecified formulationK[facility]10-23-2018influenza virus vaccine, split virus (incl. purified surface antigen)Gerry Chang Other [place] [employer] Other [id number] virus vaccine, unspecified formulationK[facility]10-23-2018Seasonal trivalent influenza vaccine, adjuvanted, preservative freeAileen [facility] 85-92-1099qipkkynbum, tetanus toxoids and acellular pertussis vaccine, unspecified formulationGerry Chang Other [facility]11-09-2017influenza virus vaccine, split virus (incl. purified surface antigen)Gerry Chang Other [facility] [employer] Other 11992029-25-3401zuooaltma virus vaccine, unspecified formulationK[facility]11-09-2017influenza, high dose seasonal, preservative-freeRomannnifer [facility] HospitalWemkac26-86-6673nolrqroji virus vaccine, split virus (incl. purified surface antigen)Gerry Chang Other [facility] [employer] Other [id number] virus vaccine, unspecified formulationK[facility]10-12-2016influenza, high dose seasonal, preservative-freeRomannnifer [facility]11-06-2015 pneumococcal conjugate vaccine, 13 valentBejonathan Chang Other [facility]11-03-2015influenza virus vaccine, split virus (incl. purified surface antigen)Gerry Chang Other [facility] [employer] Other 11-303384-84-7071vhykciina virus vaccine, unspecified formulationK[facility]11-03-2015influenza, high dose seasonal, preservative-freeAileen Jenkins [facility]10-13-2014 pneumococcal Conjugate, unspecified formulation; Translations: [Need for prophylactic vaccination against Streptococcus pneumoniae (pneumococcus)] Gerry Chang Other [place] [employer] Other 193147-33-4614ixfdjflywewe polysaccharide vaccine, 23 valentBenmatteoberna Chang Other [facility]10-13-2014tetanus and diphtheria toxoids, adsorbed, preservative free, for adult use (5 Lf of tetanus toxoid and 2 Lf of diphtheria toxoid)Gerry Chang Other [facility]11-07-2013zoster vaccine, liveAileen Jenkins [facility] CampusLdtoxh99-01-9776pazaxznxcv, tetanus toxoids and acellular pertussis vaccine, unspecified formulationGerry Bernardo Other [facility] Payers DatePayer CategoryPayerPolicy [id number] Health Insurance [id number] 2004Medicare [id number] [id number] 1960 [id number] 2.16.840.1.737879.3.57[id number] 2..840.1.927729.3.57[id number] 2.16.840.1.205409.3.57[id number] 2.16.840.1.528718.3.57[id number] 2.840.1.911570.3.57[id number] 2.840.1.710652.3.57[id number] 2.840.1.110710.3.57[id number] 2.840.1.190095.3.579.2.92251-54-8807Rbsncao7972803 2.840.1.744608.3.579.2.48400-98-4849Rkufdso5871468 2.840.1.688745.3.579.[id number] 2.840.1.549285.3.579.[id number] 2.840.1.999770.3.579.[id number] 2.840.1.510507.3.579.[id number] 2.840.1.737236.3.579.2.65901-09-0233Tcdrgvh0228153 2.840.1.626876.3.57[id number] 2.840.1.337455.3.579.2.[id number] 2.840.1.757346.3.579.[id number] 2.840.1.923185.3.579.2.[id number] 2.840.1.136730.3.57[id number] 2.840.1.991572.3.579.2.[id number] 2.0.1.353103.3.57[id number] 2.0.1.045585.3.579.[id number] 2..1.604806.3.579.[id number] 2..1.026458.3.579.2.[id number] 2..1.483807.3.579.2.12673-19-9081Erpybei31383487 2..1.827654.3.579.[id number] 2..1.881[id number] 8639lf8l-1a46-1hys-99b8-20t8521e4c88IldzxrcDodge County [id number] s5872o06-63bz-9bc3-ohs2-[id number] 2..1.079993.3.579.2.367Asxykmsk007d7q2-z16p-4915-be29-04wo10972448Ilwpbga [id number] 2.840.1.559811.3.579.2.422Duguhej84385897 2..1.531624.3.579.2.531 Social History DateTypeDetailFacilityStart: 07-15-2012 End: 54-68-1103Tfzxuwi smoking status NHISNever smoked tobaccoTrihealth Start: 07-15-2012 End: 90-10-8238Gobyfbr use and exposureSmokeless tobacco non-userNewark Hospitaltart: 57-90-6842Ppibctp intakeCurrent non-drinker of alcohol (finding) [facility]: 87-34-4163Baz Assigned At BirthNot on fileNewark Hospitaltart: 02-11-2022 End: 89-35-3237Civsljhb to SARS-CoV-2 (event)Not sureNewark Hospitaltart: 10-31-2023 End: 45-54-0010Pbr [facility]igned At [facility] Campustart: 32-20-9024Hgj [facility]igned At [facility]: 10-31-2023 End: 34-23-9362Dvdmbifpm beverage intakeCurrent drinker of alcohol (finding)[facility] HealthcareStart: 10-31-2023 End: 57-96-6082Xbkinoq of Social functionNOMS HealthcareStart: 14-60-2548Imzitjb CommentMonthly or lessNOMS HealthcareStart: 77-14-4500Zsethha smoking status NeverExecutive [facility] of [facility] BellevueStart: 06-13-2024 End: 49-26-4114BumXkww (finding)[facility] Medical Equipment Procedure CodeEquipment CodeEquipment Original TextEquipment IdentifierDates1 each by Other route if neededBlood Sugar Diagnostic (Contour Next Test Strips) stripStart: 24-80-2015Mffks Sugar Diagnostic (Contour Next Test Strips) strip Start: 06-16-2024 End: 93-28-5631Byzxl Sugar Diagnostic (Contour Next Test Strips) stripStart: 81-75-7301Efhzt Sugar Diagnostic (Contour Next Test Strips) stripStart: 06-16-2024 End: 41-18-0735Eckml Sugar Diagnostic (Contour Next Test Strips) stripStart: 18-64-3898Eqzkv Sugar Diagnostic (Contour Next Test Strips) stripStart: 06-16-2024 End: 80-14-3519Wnndt Sugar Diagnostic (Contour Next Test Strips) stripStart: 17-75-3872Vtzvf Sugar Diagnostic (Contour Next Test Strips) stripStart: 06-16-2024 End: 15-18-4048Rpehp Sugar Diagnostic (Contour Next Test Strips) stripStart: 41-02-0304Csvdo Sugar Diagnostic (Contour Next Test Strips) stripStart: 06-16-2024 End: 67-88-5348Zkrhv Sugar Diagnostic (Contour Next Test Strips) stripStart: 80-07-6318Lzstp Sugar Diagnostic (Contour Next Test Strips) stripStart: 06-16-2024 End: 46-00-6414Zhxyq Sugar Diagnostic (Contour Next Test Strips) stripStart: 92-57-4812Gyvmq Sugar Diagnostic (Contour Next Test Strips) stripStart: 06-16-2024 End: 53-99-2290Zgidn Sugar Diagnostic (Contour Next Test Strips) stripStart: 37-99-4271Kwmfn Sugar Diagnostic (Contour Next Test Strips) stripStart: 06-16-2024 End: 24-65-8910Kqpgk Sugar Diagnostic (Contour Next Test Strips) stripStart: 06-16-2024 End: 61-81-4731Xqper Sugar Diagnostic (Contour Next Test Strips) stripStart: 59-52-6115Rikyw Sugar Diagnostic (Contour Next Test Strips) stripStart: 06-16-2024 End: 26-24-5322Morkp Sugar Diagnostic (Contour Next Test Strips) stripStart: 06-16-2024 End: 75-65-2291Egtor Sugar Diagnostic (Contour Next Test Strips) stripStart: 00-34-4963Bwszt Sugar Diagnostic (Contour Next Test Strips) stripStart: 06-16-2024 End: 96-25-6639Wrgkz Sugar Diagnostic (Contour Next Test Strips) stripStart: 06-16-2024 End: 51-86-0128Veasd Sugar Diagnostic (Contour Next Test Strips) stripStart: 17-62-4355Vnkbb Sugar Diagnostic (Contour Next Test Strips) stripStart: 06-16-2024 End: 81-07-0037Xyyaa Sugar Diagnostic (Contour Next Test Strips) stripStart: 06-16-2024 End: 02-19-2025 Goals DatePatient GoalDesired Activity/State Functional Status WdwbYtbzipkdqlFcpxfwLxmxuado49-49-8366Wglkpzjece statusPatient at Baseline [facility] Work Phone: [phone] 845-431410589569-52-5540Clwcoygjes statusPatient at Baseline [facility] Work Phone: [phone]) 206-335105219084-03-3769Avegpqetck StatusN/AExec[facility]11-11-2024Functional StatusN/AExec[facility]10-31-2022Functional StatusN/A [facility] Mental Status ZrjgSbqlfzxwaaKstzgkDtbrxryi02-42-8745Ekjbclhyz functionCognitive Status Patient at [facility] Work Phone: [phone]) [phone]ewwolp functionCognitive Status Patient at [facility] Work Phone: Clinical Notes 05-02-2019 to 04-02-2025 Note Date & YwhyEtgrDeechhpj25-91-4040 History of Present illness Narrative* 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 [...] x 0.9 cm Left tip of Nose Fairchilds papule - Lesion biopsy Type of biopsy: [...] 6 months skin check documented in this encounterCox Walnut LawnRpwqqdafzu38-82-4469 [place] [address] General Surgery Progress Note Signed Patient: Eugenio Crews MR#: [id number] : 1945 Acct:[id number] Age/Sex: 79 / M Adm Date: 5 Loc: Room: [address] [place] [address] Type: ADM IN Attending Dr: Bryon Aguilar MD Copies to: ~ Date of Service: 03/25/2025 Subjective Subjective Patient reports: no new complaints, feels better, tolerating liquids well, tolerating a regular diet, bowel movement and afebrile HPI: Hospital Stay day 2. Mr. Crews was able to tolerate his liquid diet and has nothad any episodes ofemesis or nausea. Patient has also had two bowel movements since yesterday. He describes thee firstone earlier today as watery but his second bowel movement was well formed. Pt states he feels well and has no new complaints and is wanting to be discharged soon. Allergies & Medications Medications and Allergies Allergies piperacillin (Zosyn) Allergy (Unknown, Verified 03/24/25 03:13) Redness of Skin ketorolac (From Toradol) Allergy (Verified 03/24/25 03:13) kidney issues Home Medications aspirin 81 mg tablet,delayed release 81 mg PO 3XW 07/25/23 [History Confirmed 03/24/25] insulin glargine 100 unit/mL (3 mL) subcutaneous pen (Lantus Solostar U-100 Insulin) See Rx Instructions subcut QPM PRN RBS > 180 30 days #3 mL 03/31/24 [Rx Confirmed 03/24/25] calcium carbonate 600 mg PO DAILY 05/05/24 [History Confirmed 03/24/25] atorvastatin 10 mg tablet See Rx Instructions .Route .COMPLEX #90 tabs 10/02/24 [Rx Confirmed 03/24/25] magnesium aspart,citrate,oxide 400 mg PO DAILY 10/29/24 [History Confirmed 03/24/25] calcitriol 0.25 mcg capsule 0.25 mcg PO 3XW 01/26/25 [History Confirmed 03/24/25] carvedilol 6.25 mg tablet 6.25 mg PO BID 01/26/25 [History Confirmed 03/24/25] glimepiride 4 mg tablet 4 mg PO BID 01/26/25 [History Confirmed 03/24/25] lisinopril 2.5 mg tablet 2.5 mg PO DAILY 01/26/25 [History Confirmed 03/24/25] sitagliptin phosphate 25 mg tablet (Januvia) See Rx Instructions .Route .COMPLEX#30 tabs 02/02/25 [Rx Confirmed 03/24/25] gabapentin 100 mg capsule See Rx Instructions .Route .COMPLEX #30 caps 02/08/25 [Rx Confirmed 03/24/25] blood sugar diagnostic (Contour Next Test Strips) #100 strips 02/19/25 [Rx] Active Medications Dextrose (Dextrose 50% In Water 25 Gm/50 Ml Syringe) 0 gm IV-PUSH PRN PRN PRN Reason: Hypoglycemia Stop: 03/24/26 03:23 Glucose (Dextrose 40% Gel 15 Gm Tube) 0 gm PO PRN PRN PRN Reason: Hypoglycemia Stop: 03/24/26 03:23 Heparin Sodium (Porcine) (Heparin 5,000 Unit/Ml Vial) 5,000 unit SUBCUT Q8HR ISELA Stop: 03/24/26 13:59 Last Admin: 03/25/25 06:08 Dose: 5,000 unit Hydromorphone HCl (Hydromorphone 0.5 Mg/0.5 Ml Syringe) 0.4 mg IV-PUSH Q2HR PRN PRN Reason: Pain Scale 8 - 10 Ceftriaxone Sodium (Rocephin) 1 gm in 50 mls @ 100 mls/hr IV Q24H [facility] Last Admin: 03/25/25 04:31 Dose: 100 mls/hr Sodium Bicarbonate 100 meq/ (Dextrose) 1,100 mls @ 100 mls/hr IV .Q11H [facility] Stop: 03/24/26 12:59 Last Admin: 03/25/25 02:47 Dose: 100 mls/hr Insulin Aspart (Insulin Aspart 300 Units/3 Ml) 0 units SUBCUT Q6HR [facility]; Protocol Stop: 03/24/26 05:59 Last Admin: 03/25/25 06:08 Dose: Not Given Insulin Glargine (Insulin Glargine 300 Units/3 Ml Insuln.Pen) 8 units SUBCUT Q24H [facility] Stop: 03/24/26 11:59 Last Admin: 03/24/25 15:13 Dose: 8 units Metoprolol Tartrate (Metoprolol Tartrate 5 Mg/5 Ml Vial) 2.5 mg IV-PUSH Q6H [facility] Stop: 03/24/26 11:45 Last Admin: 03/25/25 08:38 Dose: 2.5 mg Ondansetron HCl (Ondansetron 4 Mg/2 Ml Vial) 4 mg IV-PUSH Q4H PRN PRN Reason: Nausea And Vomiting Stop: 03/24/26 03:17 Exam Physical Exam Vital Signs: Temp Pulse Resp BP Pulse Ox O2 Del Method 97.6 F 76 17 138/72 98 Room Air 03/25/25 11:15 03/25/25 11:15 03/25/25 11:15 03/25/25 11:15 03/25/25 11:15 03/25/25 11:15 Narrative: Pt is a well appearing 79 year old male on day 2 of his inpatient stay. Pt was originally transferred to [facility] for a suspected SBO. Patient has frequent SBOs and his last episode was over 4 years ago.Pt is alert and oriented x3/3 and is walking around well without assistance. Vital signs WNL. Abdomen non-distended and non-tender in all four quadrants. Heart rate regular rate and rhythm. Lung sounds clear to auscultation bilaterally. Const General: cooperative, healthy appearing, comfortable and no acute distress Nutritional Appearance: overweight Orientation: alert, awake and oriented x3 Limitations: altered mental status Resp Effort & Inspection: normal respiratory effort, able to speak in complete sentences and symmetric chest movement Auscultation: clear to auscultation bilaterally Cardio Jugular venous pressure: no JVD Rate: regular rate Rhythm: regular rhythm Heart Sounds: S1 normal and S2 normal GI Inspection: normal to inspection and non-distended Palpation: soft Auscultation: normal bowel sounds Neuro Speech: speech normal Psych Appearance: grossly normal Mental Status: mental status grossly normal Affect: normal affect Attitude: cooperative Thought Process: normal Objective Intake & Output 24 hour I&O: Intake & Output 03/24/25 03/25/25 03/25/25 23:59 07:59 15:59 Intake Total 1200 / 1200 Output Total 175 / 225 950 / 950 Balance -175 / -175 250 / 250 Weight 103.2 kg Labs 03/25/25 05:34 03/25/25 05:34 Laboratory Results - Last 48 hrs. 03/25/25 06:06: POC Glucose 118 03/25/25 05:34: Corrected WBC 7.1, Uncorrected WBC Count 7.1, RBC 3.54 L, Hgb 11.8 L, Hct 33.7 L, MCV 95.0, MCH 33.3, MCHC 35.0, RDW 12.8, Plt Count 150, MPV 7.1, Neut % (Auto) 76.6, Lymph % (Auto) 12.4, [place] % (Auto) 9.0, Eos % (Auto) 1.8, Baso % (Auto) 0.2, Nucleat RBC Rel Count 0.1, Neut # (Auto) 5.5, Lymph # (Auto) 0.9 L, [place] # (Auto) 0.6, Eos # (Auto) 0.1, Baso # (Auto) 0.0, PHA Creatinine Clear 27.06, Sodium 137, Potassium 4.5, Chloride 105, Carbon Dioxide 26.4, Anion Gap 10.1, BUN 39 H,Creatinine 2.93 H, Est GFR (CKD-EPI) 21.338, Glucose 116 H D, Calcium 8.3 L 03/25/25 00:56: POC Glucose 142 03/24/25 21:18: POC Glucose 204 10/21/25 17:23: POC Glucose 157 03/24/25 11:18: POC Glucose 136 03/24/25 08:09: POC Glucose 178 03/24/25 05:10: PHA Creatinine Clear 23.37, Sodium 134 L, Potassium 5.8 H, Chloride 105, Carbon Dioxide 22.2, Anion Gap 12.6, BUN 43 H, Creatinine 3.39 H, Est GFR (CKD-EPI) 17.912, Glucose 216 H, Calcium 8.3 L 03/24/25 04:52: POC Glucose 223 A&P - General Surgery Assessment/Plan (1) Small bowel obstruction: Plan I have personally seen and examined the patient on this date of the encounter. I have performed thekey parts of the physical examination, as well as review of the history, and pertinent tests. I have formulated the plan of care and made appropriate entries into the patient's chart. From a surgicalstandpoint Eugenio is doing much better he is tolerating his diet and has had bowel movements. He denies any abdominal pain his abdominal x-ray is significantly improved. Examination his abdomen is benign. I DC'd his NG tube and placed him on a GI soft diet. From a surgical standpoint he is cleared for discharge home. He has dealt with this problem for many years he knows how to take care of himself. There is no need for surgical follow-up, he can follow-up with his primary care doctor. I will sign off the case at this time, thank you Documented By: Arya Peña DO 03/25/25 11 36 Signed By: 03/25/25 1151 [facility]10-22-2025 [place] [address] General Surgery Consult Note Signed Patient: Eugenio Crews MR#: [id number] : 1945 Acct:[id number] Age/Sex: 79 / M Adm Date: 5 Loc: 4N Room: [address] [place] [address] Type: ADM IN Attending Dr: Bryon Aguilar MD Copies to: MD Gerry Torres,DO Arya Peña DO~ History of Present Illness Date of consult: 03/24/2025 Reason for consult: abdominal pain Requesting/Attending Provider: Bryon Aguilar MD History of present illness: Pt is a well appearing 79 year old male who presents to [facility] at 0300 this morning for abdominal cramping and pain from [facility] ED. At 5pm last night, pt presented to the ED for abdominal cramping that reminded him of his previous episodes of SBO. Pt has a medical history of B-Cell lymphoma and has had a small bowel resection by Dr. Reyes in 2009. Pt states that he has had many episodes (up to 15) of SBO but has not had one in over 4 years. When patient was transferred to [facility] at 0300, pt had a large emesis episode which seemed to have relieved his abdominal pain. Pt states that hehas been able to have a normal bowel movement since then. Pt does not currently have any complaints. Review of Systems Review of Systems All other systems reviewed & are negative unless noted below or in HPI Constitutional Constitutional: Reports system reviewed and no additional complaints, except as documented, Reportsas per HPI, Denies chills, Denies fever(s), Denies headache(s) and Denies poor appetite Eyes Eyes: Reports system reviewed and no additional complaints, except as documented Cardiovascular Cardiovascular: Reports system reviewed and no additional complaints, except as documented, Reportsas per HPI, Denies chest pain, Denies dyspnea on exertion, Denies leg edema and Denies lightheadedness Respiratory Respiratory: Reports system reviewed and no additional complaints, except as documented, Denies cough, Denies dyspnea, Denies hemoptysis and Denies wheezing Gastrointestinal Gastrointestinal: Reports system reviewed and no additional complaints, except as documented, Denies change in stool character, Denies constipation, Denies cramping, Denies diarrhea and Denies hematochezia Genitourinary Genitourinary: Reports system reviewed and no additional complaints, except as documented, Denies difficulty urinating, Denies dysuria and Denies hematuria Musculoskeletal Musculoskeletal: Reports system reviewed and no additional complaints, except asdocumented Integumentary/Breasts Skin/Breast: Reports system reviewed and no additional complaints, except as documented Neurologic Neurologic: Reports system reviewed and no additional complaints, except as documented Psychiatric Psychiatric: Reports system reviewed and no additional complaints, except as documented Endocrine Endocrine: Reports system reviewed and no additional complaints, except as documented Hematologic/Lymphatic Hematologic/Lymphatic: Reports system reviewed and no additional complaints, except as documented PMFSH Source: Old Records Reviewed and Other (From Pt) Medical History Microscopic hematuria Renal cyst, acquired, right CT: 5.8cm renal cyst - 10/2024 Post herpetic neuralgia Elevated PSA Chronic kidney disease Screening PSA (prostate specific antigen) PSA: 2.93 - 02/2022, 2.64 - 03/2023, 5.63- 03/2024, 3.01 - 09/2024 Obesity Medicare annual wellness visit, subsequent Type 2 diabetes mellitus with hyperglycemia 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 Primary hypertension Presence of unspecified orthopedic joint implant Pernicious anemia Hyperlipidemia, mixed History of osteomyelitis High risk medication use Hammer toe of left foot Essential hypertension Chronic venous insufficiency Chest swelling Charcot's joint of foot 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 Benign prostatic hyperplasia with lower urinary tract symptoms Basal cell carcinoma of right lower extremity Basal cell carcinoma of nose Surgical History H/O cystoscopy (~11/2024) History of tonsillectomy History of cholecystectomy History of appendectomy History of resection of large bowel chemo, radiation, stem cell replacement History of hammertoe correction Left 2nd Toe History of total knee arthroplasty 1983, 2008, bilateral H/O colonoscopy (~09/23/20) History of surgery 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, Debridement left foot ulcer- 09/2018 Family History Mother Heart disease History of heart surgery Diabetes mellitus, type 2 Sister Cancer Legacy FamHx Problem: Diagnosed with Cancer Lung cancer Sister Stroke A-fib Social History Marital Status: Household Members: spouse Housing: house Smoking Status: Never smoker Substance Use Type: None Allergies & Medications Medications and Allergies Allergies piperacillin (Zosyn) Allergy (Unknown, Verified 03/24/25 03:13) Redness of Skin ketorolac (From Toradol) Allergy (Verified 03/24/25 03:13) kidney issues Home Medications aspirin 81 mg tablet,delayed release 81 mg PO 3XW 07/25/23 [History Confirmed 03/24/25] insulin glargine 100 unit/mL (3 mL) subcutaneous pen (Lantus Solostar U-100 Insulin) See Rx Instructions subcut QPM PRN RBS > 180 30 days #3 mL 03/31/24 [Rx Confirmed 03/24/25] calcium carbonate 600 mg PO DAILY 05/05/24 [History Confirmed 03/24/25] atorvastatin 10 mg tablet See Rx Instructions .Route .COMPLEX #90 tabs 10/02/24 [Rx Confirmed 03/24/25] magnesium aspart,citrate,oxide 400 mg PO DAILY 10/29/24 [History Confirmed 03/24/25] calcitriol 0.25 mcg capsule 0.25 mcg PO 3XW 01/26/25 [History Confirmed 03/24/25] carvedilol 6.25 mg tablet 6.25 mg PO BID 01/26/25 [History Confirmed 03/24/25] glimepiride 4 mg tablet 4 mg PO BID 01/26/25 [History Confirmed 03/24/25] lisinopril 2.5 mg tablet 2.5 mg PO DAILY 01/26/25 [History Confirmed 03/24/25] sitagliptin phosphate 25 mg tablet (Januvia) See Rx Instructions .Route .COMPLEX#30 tabs 02/02/25 [Rx Confirmed 03/24/25] gabapentin 100 mg capsule See Rx Instructions .Route .COMPLEX #30 caps 02/08/25 [Rx Confirmed 03/24/25] blood sugar diagnostic (Contour Next Test Strips) #100 strips 02/19/25 [Rx] Active Medications Dextrose (Dextrose 50% In Water 25 Gm/50 Ml Syringe) 0 gm IV-PUSH PRN PRN PRN Reason: Hypoglycemia Stop: 03/24/26 03:23 Glucose (Dextrose 40% Gel 15 Gm Tube) 0 gm PO PRN PRN PRN Reason: Hypoglycemia Stop: 03/24/26 03:23 Heparin Sodium (Porcine) (Heparin 5,000 Unit/Ml Vial) 5,000 unit SUBCUT Q8HR ISELA Stop: 03/24/26 13:59 Last Admin: 03/24/25 15:13 Dose: 5,000 unit Hydromorphone HCl (Hydromorphone 0.5 Mg/0.5 Ml Syringe) 0.4 mg IV-PUSH Q2HR PRN PRN Reason: Pain Scale 8 - 10 Ceftriaxone Sodium (Rocephin) 1 gm in 50 mls @ 100 mls/hr IV Q24H [facility] Last Admin: 03/24/25 04:07 Dose: 100 mls/hr Sodium Bicarbonate 100 meq/ (Dextrose) 1,100 mls @ 100 mls/hr IV .Q11H [facility] Stop: 03/24/26 12:59 Last Admin: 03/24/25 15:13 Dose: 100 mls/hr Insulin Aspart (Insulin Aspart 300 Units/3 Ml) 0 units SUBCUT Q6HR [facility]; Protocol Stop: 03/24/26 05:59 Last Admin: 03/24/25 13:21 Dose: Not Given Insulin Glargine (Insulin Glargine 300 Units/3 Ml Insuln.Pen) 8 units SUBCUT Q24H [facility] Stop: 03/24/26 11:59 Last Admin: 03/24/25 15:13 Dose: 8 units Metoprolol Tartrate (Metoprolol Tartrate 5 Mg/5 Ml Vial) 2.5 mg IV-PUSH Q6H [facility] Stop: 03/24/26 11:45 Last Admin: 03/24/25 13:20 Dose: Not Given Ondansetron HCl (Ondansetron 4 Mg/2 Ml Vial) 4 mg IV-PUSH Q4H PRN PRN Reason: Nausea And Vomiting Stop: 03/24/26 03:17 Exam Physical Exam Vital Signs: Temp Pulse Resp BP Pulse Ox O2 Del Method 97.8 F 87 20 136/80 97 Room Air 03/24/25 15:37 03/24/25 15:37 03/24/25 15:37 03/24/25 15:37 03/24/25 15:37 03/24/25 15:37 Const General: cooperative, comfortable and no acute distress Nutritional Appearance: well nourished and overweight Orientation: alert, awake and oriented x3 HEENT Ears: hearing grossly normal bilaterally Nose: external nose normal Eyes General: appearance normal, both eyes and all related structures Resp Effort & Inspection: normal respiratory effort and able to speak in complete sentences Auscultation: clear to auscultation bilaterally Cardio Palpation: normal PMI Rate: regular rate Rhythm: regular rhythm Heart Sounds: S1 normal and S2 normal GI Inspection: non-distended Palpation: soft, not firm, no guarding and nontender Auscultation: normal bowel sounds and no high pitched sounds Skin General: no rashes or lesions noted Neuro General: patient alert, patient awake and patient oriented x3 Cognition: normal cognition Speech: speech normal Extrem General: normal to inspection Psych Appearance: grossly normal Mental Status: mental status grossly normal Mood: congruent mood Affect: normal affect Speech and Movement: speech and movement normal Attitude: cooperative Thought Process: normal Thought Content: normal Insight: insight good Judgment: judgment good Results - Gen. Surgery Intake and Output 24 hour I&O: Intake & Output 03/24/25 03/24/25 03/24/25 07:59 15:59 23:59 Intake Total 0 / 0 Output Total 50 / 50 Balance -50 / -50 Weight 103.1 kg Labs 03/25/25 05:34 03/25/25 05:34 Laboratory Results - last 72 hr 03/24/25 11:18: POC Glucose 136 03/24/25 08:09: POC Glucose 178 03/24/25 05:10: PHA Creatinine Clear 23.37, Sodium 134 L, Potassium 5.8 H, Chloride 105, Carbon Dioxide 22.2, Anion Gap 12.6, BUN 43 H, Creatinine 3.39 H, Est GFR (CKD-EPI) 17.912, Glucose 216 H, Calcium 8.3 L 03/24/25 04:52: POC Glucose 223 A&P - General Surgery (1) Small bowel obstruction: (2) Leukocytosis: (3) UTI (urinary tract infection): Plan: I have personally seen and examined the patient on this date of the encounter. I have performed thekey parts of the physical examination, as well as review of the history, and pertinent tests. I have formulated the plan of care and made appropriate entries into the patient's chart. Eugenio is a 79-year-old male who states that he has had multiple episodes of small bowel obstructions following an initial surgery for lymphoma. The small bowel obstructions typically resolve by themselves after fewhours. This time he developed abdominal pain and he did not seem to be resolving. He went to the [facility] emergency room where he was diagnosed with a bowel obstruction based on CT findings and physical exam. The the ER doc called and asked if we would accept Eugenio in transfer with surgical consultation for bowel obstruction. He was subsequently transferred to [facility]. An NG tube was placed and the patient states that he is feeling much better. His obstruction in his opinion has cleared as it typically did. He had no abdominal pain and was passing flatus. The plan was to place him on clear liquid diet and see how he tolerates it. The NG tube will be clamped overnight. Plan Pt able to pass flatulence and has had a bowel movement since his acute episode. He has not vomitedsince 0400 this morning. Pt has no current complaints. 1. Clamp NG tube 2. Clear Liquid Diet 3. Admit to Hospital for Observation Documented By: Arya Peña, 03/24/25 17 16 Signed By: 03/25/25 1149 [facility]10-21-2025 Progress note Author Bryon Aguilar [facility] Date/TimeOctober 2024 3:11pm [place] [address] Hospitalist Progress Note Signed Patient: Eugenio Crews MR#: [id number] : 1945 Acct:[id number] Age/Sex: 79 / M Adm Date: 5 Loc: Room: [address] [place] [address] Type: ADM IN Attending Dr: Bryon Aguilar MD Copies to: ~ Date of Service: 03/24/2025 Subjective Subjective Narrative: Patient is feeling better. He is passing small amounts of gas. No abdominal pain Abdomen is completely benign on exam. He has decreased bowel sounds Heart regular Lungs clear Neurological nonfocal Exam Physical Exam Vital Signs: Temp Pulse Resp BP Pulse Ox O2 Del Method 97.8 F 71 20 158/84 H 100 Room Air 03/24/25 12:00 03/24/25 12:00 03/24/25 12:00 03/24/25 12:00 03/24/25 12:00 03/24/25 12:00 Objective Lab Results 03/24/25 05:10 Meds Allergies and Active Meds Allergies piperacillin (Zosyn) Allergy (Unknown, Verified 03/24/25 03:13) Redness of Skin ketorolac (From Toradol) Allergy (Verified 03/24/25 03:13) kidney issues Active Meds: Active Medications Generic Name Dose Route Start Last Admin Trade Name Freq PRN Reason Stop Dose Admin Dextrose 0 gm 03/24/25 03:24 Dextrose 50% In Water 25 Gm/50 Ml Syringe IV-PUSH 03/24/26 03:23 PRN PRN Hypoglycemia Glucose 0 gm 03/24/25 03:24 Dextrose 40% Gel 15 Gm Tube PO 03/24/26 03:23 PRN PRN Hypoglycemia Heparin Sodium (Porcine) 5,000 unit 03/24/25 14:00 Heparin 5,000 Unit/Ml Vial SUBCUT 03/24/26 13:59 Q8HR ISELA Hydromorphone HCl 0.4 mg 03/24/25 11:50 Hydromorphone 0.5 Mg/0.5 Ml Syringe IV-PUSH Q2HR PRN Pain Scale 8 - 10 Ceftriaxone Sodium 1 gm in 50 mls @ 100 mls/hr 03/24/25 04:30 03/24/25 04:07 Rocephin IV 100 mls/hr Q24H ISELA Administration Sodium Bicarbonate 100 meq/ 1,100 mls @ 100 mls/hr 03/24/25 13:00 Dextrose IV 03/24/26 12:59 .Q11H [facility] Insulin Aspart 0 units 03/24/25 06:00 03/24/25 13:21 Insulin Aspart 300 Units/3 Ml SUBCUT 03/24/26 05:59 Not Given Q6HR [facility] Protocol Insulin Glargine 8 units 03/24/25 12:00 Insulin Glargine 300 Units/3 Ml Insuln.Pen SUBCUT 03/24/26 11:59 Q24H [facility] Metoprolol Tartrate 2.5 mg 03/24/25 11:50 03/24/25 13:20 Metoprolol Tartrate 5 Mg/5 Ml Vial IV-PUSH 03/24/26 11:45 Not Given Q6H [facility] Ondansetron HCl 4 mg 03/24/25 11:50 Ondansetron 4 Mg/2 Ml Vial IV-PUSH 03/24/26 03:17 Q4H PRN Nausea And Vomiting A&P - Hospitalist Assessment/Plan (1) Small bowel obstruction: (2) Leukocytosis: (3) UTI (urinary tract infection): Plan 1. small bowel obstruction- history of the same Continue conservative management. Will allow ice chips and water. Awaiting surgery consult. 2. UTI On empiric ceftriaxone. Other chronic problems include Hypertension dyslipidemia Diabetes type 2 Documented By: Bryon Aguilar MD 03/24/251509 Signed By: <Electronically signed by Bryon Aguilar MD> 03/24/25 1511 [facility] Work Phone: 1(233) 186-374110-21-2025 [place] [id number] Hospitalist Progress Note Signed Patient: Eugenio Crews MR#: [id number] : 1945 Acct:[id number] Age/Sex: 79 / M Adm Date: 5 Loc: Room: [address] [place] [address] Type: ADM IN Attending Dr: Bryon Aguilar MD Copies to: ~ Date of Service: 03/24/2025 Subjective Subjective Narrative: Patient is feeling better. He is passing small amounts of gas. No abdominal pain Abdomen is completely benign on exam. He has decreased bowel sounds Heart regular Lungs clear Neurological nonfocal Exam Physical Exam Vital Signs: Temp Pulse Resp BP Pulse Ox O2 Del Method 97.8 F 71 20 158/84 H 100 Room Air 03/24/25 12:00 03/24/25 12:00 03/24/25 12:00 03/24/25 12:00 03/24/25 12:00 03/24/25 12:00 Objective Lab Results 03/24/25 05:10 Meds Allergies and Active Meds Allergies piperacillin (Zosyn) Allergy (Unknown, Verified 03/24/25 03:13) Redness of Skin ketorolac (From Toradol) Allergy (Verified 03/24/25 03:13) kidney issues Active Meds: Active Medications Generic Name Dose Route Start Last Admin Trade Name Freq PRN Reason Stop Dose Admin Dextrose 0 gm 03/24/25 03:24 Dextrose 50% In Water 25 Gm/50 Ml Syringe IV-PUSH 03/24/26 03:23 PRN PRN Hypoglycemia Glucose 0 gm 03/24/25 03:24 Dextrose 40% Gel 15 Gm Tube PO 03/24/26 03:23 PRN PRN Hypoglycemia Heparin Sodium (Porcine) 5,000 unit 03/24/25 14:00 Heparin 5,000 Unit/Ml Vial SUBCUT 03/24/26 13:59 Q8HR ISELA Hydromorphone HCl 0.4 mg 03/24/25 11:50 Hydromorphone 0.5 Mg/0.5 Ml Syringe IV-PUSH Q2HR PRN Pain Scale 8 - 10 Ceftriaxone Sodium 1 gm in 50 mls @ 100 mls/hr 03/24/25 04:30 03/24/25 04:07 Rocephin IV 100 mls/hr Q24H ISELA Administration Sodium Bicarbonate 100 meq/ 1,100 mls @ 100 mls/hr 03/24/25 13:00 Dextrose IV 03/24/26 12:59 .Q11H ISE[facility] Insulin Aspart 0 units 03/24/25 06:00 03/24/25 13:21 Insulin Aspart 300 Units/3 Ml SUBCUT 03/24/26 05:59 Not Given Q6HR [facility] Protocol Insulin Glargine 8 units 03/24/25 12:00 Insulin Glargine 300 Units/3 Ml Insuln.Pen SUBCUT 03/24/26 11:59 Q24H [facility] Metoprolol Tartrate 2.5 mg 03/24/25 11:50 03/24/25 13:20 Metoprolol Tartrate 5 Mg/5 Ml Vial IV-PUSH 03/24/26 11:45 Not Given Q6H [facility] Ondansetron HCl 4 mg 03/24/25 11:50 Ondansetron 4 Mg/2 Ml Vial IV-PUSH 03/24/26 03:17 Q4H PRN Nausea And Vomiting A&P - Hospitalist Assessment/Plan (1) Small bowel obstruction: (2) Leukocytosis: (3) UTI (urinary tract infection): Plan 1. small bowel obstruction- history of the same Continue conservative management. Will allow ice chips and water. Awaiting surgery consult. 2. UTI On empiric ceftriaxone. Other chronic problems include Hypertension dyslipidemia Diabetes type 2 Documented By: Bryon Aguilar MD 03/24/251509 Signed By: 03/24/25 1511 [facility]10-21-2025 History and physical note Author Moise Walker [facility] Date/TimeOctober 2024 3:36am [place] [id number] Hospitalist H&P Signed Patient: Eugenio Crews MR#: [id number] : 1945 Acct:[id number] Age/Sex: 79 / M Adm Date: 5 Loc: 4N Room: 8R9416-1 Type: ADM IN Attending Dr: Moise Walker MD Copies to: DO Moise Ruff MD~ [facility] DATE OF EXAMINATION: 03/24/25 CHIEF COMPLAINT: abdominal pain/distention, nausea/vomiting HISTORY OF PRESENT ILLNESS: 79 year old man with 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 pt denies fever chills chest pain dyspnea. symptoms similar tothat of previous bowel obstructions pt presented to the ED for evaluation, vital signs on arrival were WNL. labs with WBC 12k, serum creatinine at baseline, UA with 5-10 WBC/hpf. CT abdomen/pelvis with small bowel obstruction with transition point in the RLQ. NGT was placed, pt transferred here for further evaluation on interview pt still feels much improved, passing gas, no pain or nausea currently ROS: 10 systems reviewed and were negative except as noted in the [facility] Medical History Microscopic hematuria Renal cyst, acquired, right CT: 5.8cm renal cyst - 10/2024 Post herpetic neuralgia Elevated PSA Chronic kidney disease Screening PSA (prostate specific antigen) PSA: 2.93 - 02/2022, 2.64 - 03/2023, 5.63- 03/2024, 3.01 - 09/2024 Obesity Medicare annual wellness visit, subsequent Type 2 diabetes mellitus with hyperglycemia 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 Primary hypertension Presence of unspecified orthopedic joint implant Pernicious anemia Hyperlipidemia, mixed History of osteomyelitis High risk medication use Hammer toe of left foot Essential hypertension Chronic venous insufficiency Chest swelling Charcot's joint of foot 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 Benign prostatic hyperplasia with lower urinary tract symptoms Basal cell carcinoma of right lower extremity Basal cell carcinoma of nose Surgical History H/O cystoscopy (~11/2024) History of tonsillectomy History of cholecystectomy History of appendectomy History of resection of large bowel chemo, radiation, stem cell replacement History of hammertoe correction Left 2nd Toe History of total knee arthroplasty 1983, 2008, bilateral H/O colonoscopy (~09/23/20) History of surgery 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, Debridement left foot ulcer- 09/2018 Family History Mother Heart disease History of heart surgery Diabetes mellitus, type 2 Sister Cancer Legacy FamHx Problem: Diagnosed with Cancer Lung cancer Sister Stroke A-fib Social History Smoking Status: Never smoker Substance Use Type: None Meds Medications and Allergies Allergies piperacillin (Zosyn) Allergy (Unknown, Verified 03/24/25 03:13) Redness of Skin ketorolac (From Toradol) Allergy (Verified 03/24/25 03:13) kidney issues Home Medications aspirin 81 mg tablet,delayed release 81 mg PO 3XW 07/25/23 [History Confirmed 03/24/25] insulin glargine 100 unit/mL (3 mL) subcutaneous pen (Lantus Solostar U-100 Insulin) See Rx Instructions subcut QPM PRN RBS > 180 30 days #3 mL 03/31/24 [Rx Confirmed 03/24/25] calcium carbonate 600 mg PO DAILY 05/05/24 [History Confirmed 03/24/25] atorvastatin 10 mg tablet See Rx Instructions .Route .COMPLEX #90 tabs 10/02/24 [Rx Confirmed 03/24/25] magnesium aspart,citrate,oxide 400 mg PO DAILY 10/29/24 [History Confirmed 03/24/25] calcitriol 0.25 mcg capsule 0.25 mcg PO 3XW 01/26/25 [History Confirmed 03/24/25] carvedilol 6.25 mg tablet 6.25 mg PO BID 01/26/25 [History Confirmed 03/24/25] glimepiride 4 mg tablet 4 mg PO BID 01/26/25 [History Confirmed 03/24/25] lisinopril 2.5 mg tablet 2.5 mg PO DAILY 01/26/25 [History Confirmed 03/24/25] sitagliptin phosphate 25 mg tablet (Januvia) See Rx Instructions .Route .COMPLEX#30 tabs 02/02/25 [Rx Confirmed 03/24/25] gabapentin 100 mg capsule See Rx Instructions .Route .COMPLEX #30 caps 02/08/25 [Rx Confirmed 03/24/25] blood sugar diagnostic (Contour Next Test Strips) #100 strips 02/19/25 [Rx] Exam Physical Exam Vital Signs: Temp Pulse Resp BP Pulse Ox O2 Del Method 97.6 F 67 16 151/82 H 100 Room Air 03/24/25 02:58 03/24/25 02:58 03/24/25 02:58 03/24/25 02:58 03/24/25 02:58 03/24/25 02:58 Const General: cooperative, no acute distress and well developed HEENT Head: normal to inspection Ears: external ears normal Nose: external nose normal Face and sinus: normal facial exam Mouth: oral mucosae normal Throat: posterior oropharynx normal Eyes General: appearance normal, both eyes and all related structures Visual Cameron: normal visual cameron by confrontation Sclera: sclerae normal Pupils: PERRL and accommodation normal Neck Neck: normal visual inspection, no lymphadenopathy and supple Thyroid: thyroid normal Lymphatic: no lymphadenopathy noted Chest Chest palpation & inspection: normal inspection of the chest Resp Effort & Inspection: normal respiratory effort, able to speak in complete sentences and symmetric chest movement Auscultation: clear to auscultation bilaterally Cardio Palpation: normal PMI Rate: regular rate Rhythm: regular rhythm Heart Sounds: S1 normal and S2 normal GI Inspection: distended Palpation: soft Auscultation: hypoactive bowel sounds Other: soft distended nontender hypoactive bowel sounds no palpable masses/organomegaly General: bladder normal to palpation Musc Cervical Spine: cervical ROM normal Thoracic/Lumbar Spine: thoracic and lumbar spine normal to inspection Skin General: no rashes or lesions noted and turgor normal Neuro General: patient alert, patient awake and patient oriented x3 Speech: speech normal Extrem General: normal to inspection and full ROM Psych Appearance: grossly normal Mental Status: mental status grossly normal Affect: normal affect Speech and Movement: speech and movement normal Attitude: cooperative Assessment & Plan Assessment/Plan (1) Small bowel obstruction: (2) Leukocytosis: (3) UTI (urinary tract infection): Plan 1. small bowel obstruction- history of the same refer for observation services NPO serial abdominal exams NGT to [facility] pain control- dilaudid antiemesis- zofran general surgery was contacted by [facility] and agreed to consult- appreciate input 2. UTI Leukocytosis no evidence of sepsis empiric ceftriaxone f/u urine culture monitor for sepsis HTN- hold home meds while NPO. IV beta shira scheduled. hydralazine PRN DM2- hold oral hypoglycemic medications, accucheck q6h, SSI, hypoglycemia protocol VTE prophylaxis- SQ heparin FULL CODE IP vs OBS Justification Based on differential dx, clinical care plan, and risk of adverse events, if untreated, in my clinical judgement this patient requires an acute care setting as: INPATIENT because of an expectation ofan over 2 midnight stay. Estimated length of stay (# of days): 2 Documented By: Moise Walker MD 03/24/25325 Signed By: <Electronically signed by Moise Walker MD> 03/24/25 0336 [facility] Work Phone: 1(936) 212-726410-21-2025 [place] [address] Hospitalist H&P Signed Patient: Eugenio Crews MR#: [id number] : 1945 Acct:[id number] Age/Sex: 79 / M Adm Date: 5 Loc: Room: [address] [place] [address] Type: ADM IN Attending Dr: Moise Walker MD Copies to: DO Moise Ruff MD~ HPI DATE OF EXAMINATION: 03/24/25 CHIEF COMPLAINT: abdominal pain/distention, nausea/vomiting HISTORY OF PRESENT ILLNESS: 79 year old man with 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 pt denies fever chills chest pain dyspnea. symptoms similar tothat of previous bowel obstructions pt presented to the ED for evaluation, vital signs on arrival were WNL. labs with WBC 12k, serum creatinine at baseline, UA with 5-10 WBC/hpf. CT abdomen/pelvis with small bowel obstruction with transition point in the RLQ. NGT was placed, pt transferred here for further evaluation on interview pt still feels much improved, passing gas, no pain or nausea currently ROS: 10 systems reviewed and were negative except as noted in the [facility] Medical History Microscopic hematuria Renal cyst, acquired, right CT: 5.8cm renal cyst - 10/2024 Post herpetic neuralgia Elevated PSA Chronic kidney disease Screening PSA (prostate specific antigen) PSA: 2.93 - 02/2022, 2.64 - 03/2023, 5.63- 03/2024, 3.01 - 09/2024 Obesity Medicare annual wellness visit, subsequent Type 2 diabetes mellitus with hyperglycemia 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 Primary hypertension Presence of unspecified orthopedic joint implant Pernicious anemia Hyperlipidemia, mixed History of osteomyelitis High risk medication use Hammer toe of left foot Essential hypertension Chronic venous insufficiency Chest swelling Charcot's joint of foot 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 Benign prostatic hyperplasia with lower urinary tract symptoms Basal cell carcinoma of right lower extremity Basal cell carcinoma of nose Surgical History H/O cystoscopy (~11/2024) History of tonsillectomy History of cholecystectomy History of appendectomy History of resection of large bowel chemo, radiation, stem cell replacement History of hammertoe correction Left 2nd Toe History of total knee arthroplasty 1983, 2008, bilateral H/O colonoscopy (~09/23/20) History of surgery 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, Debridement left foot ulcer- 09/2018 Family History Mother Heart disease History of heart surgery Diabetes mellitus, type 2 Sister Cancer Legacy FamHx Problem: Diagnosed with Cancer Lung cancer Sister Stroke A-fib Social History Smoking Status: Never smoker Substance Use Type: None Meds Medications and Allergies Allergies piperacillin (Zosyn) Allergy (Unknown, Verified 03/24/25 03:13) Redness of Skin ketorolac (From Toradol) Allergy (Verified 03/24/25 03:13) kidney issues Home Medications aspirin 81 mg tablet,delayed release 81 mg PO 3XW 07/25/23 [History Confirmed 03/24/25] insulin glargine 100 unit/mL (3 mL) subcutaneous pen (Lantus Solostar U-100 Insulin) See Rx Instructions subcut QPM PRN RBS > 180 30 days #3 mL 03/31/24 [Rx Confirmed 03/24/25] calcium carbonate 600 mg PO DAILY 05/05/24 [History Confirmed 03/24/25] atorvastatin 10 mg tablet See Rx Instructions .Route .COMPLEX #90 tabs 10/02/24 [Rx Confirmed 03/24/25] magnesium aspart,citrate,oxide 400 mg PO DAILY 10/29/24 [History Confirmed 03/24/25] calcitriol 0.25 mcg capsule 0.25 mcg PO 3XW 01/26/25 [History Confirmed 03/24/25] carvedilol 6.25 mg tablet 6.25 mg PO BID 01/26/25 [History Confirmed 03/24/25] glimepiride 4 mg tablet 4 mg PO BID 01/26/25 [History Confirmed 03/24/25] lisinopril 2.5 mg tablet 2.5 mg PO DAILY 01/26/25 [History Confirmed 03/24/25] sitagliptin phosphate 25 mg tablet (Januvia) See Rx Instructions .Route .COMPLEX#30 tabs 02/02/25 [Rx Confirmed 03/24/25] gabapentin 100 mg capsule See Rx Instructions .Route .COMPLEX #30 caps 02/08/25 [Rx Confirmed 03/24/25] blood sugar diagnostic (Contour Next Test Strips) #100 strips 02/19/25 [Rx] Exam Physical Exam Vital Signs: Temp Pulse Resp BP Pulse Ox O2 Del Method 97.6 F 67 16 151/82 H 100 Room Air 03/24/25 02:58 03/24/25 02:58 03/24/25 02:58 03/24/25 02:58 03/24/25 02:58 03/24/25 02:58 Const General: cooperative, no acute distress and well developed HEENT Head: normal to inspection Ears: external ears normal Nose: external nose normal Face and sinus: normal facial exam Mouth: oral mucosae normal Throat: posterior oropharynx normal Eyes General: appearance normal, both eyes and all related structures Visual Cameron: normal visual cameron by confrontation Sclera: sclerae normal Pupils: PERRL and accommodation normal Neck Neck: normal visual inspection, no lymphadenopathy and supple Thyroid: thyroid normal Lymphatic: no lymphadenopathy noted Chest Chest palpation & inspection: normal inspection of the chest Resp Effort & Inspection: normal respiratory effort, able to speak in complete sentences and symmetric chest movement Auscultation: clear to auscultation bilaterally Cardio Palpation: normal PMI Rate: regular rate Rhythm: regular rhythm Heart Sounds: S1 normal and S2 normal GI Inspection: distended Palpation: soft Auscultation: hypoactive bowel sounds Other: soft distended nontender hypoactive bowel sounds no palpable masses/organomegaly General: bladder normal to palpation Musc Cervical Spine: cervical ROM normal Thoracic/Lumbar Spine: thoracic and lumbar spine normal to inspection Skin General: no rashes or lesions noted and turgor normal Neuro General: patient alert, patient awake and patient oriented x3 Speech: speech normal Extrem General: normal to inspection and full ROM Psych Appearance: grossly normal Mental Status: mental status grossly normal Affect: normal affect Speech and Movement: speech and movement normal Attitude: cooperative Assessment & Plan Assessment/Plan (1) Small bowel obstruction: (2) Leukocytosis: (3) UTI (urinary tract infection): Plan 1. small bowel obstruction- history of the same refer for observation services NPO serial abdominal exams NGT to [place] pain control- dilaudid antiemesis- zofran general surgery was contacted by [place] [facility] and agreed to consult- appreciate input 2. UTI Leukocytosis no evidence of sepsis empiric ceftriaxone f/u urine culture monitor for sepsis HTN- hold home meds while NPO. IV beta shira scheduled. hydralazine PRN DM2- hold oral hypoglycemic medications, accucheck q6h, SSI, hypoglycemia protocol VTE prophylaxis- SQ heparin FULL CODE IP vs OBS Justification Based on differential dx, clinical care plan, and risk of adverse events, if untreated, in my clinical judgement this patient requires an acute care setting as: INPATIENT because of an expectation ofan over 2 midnight stay. Estimated length of stay (# of days): 2 Documented By: Moise Walker MD 03/24/25325 Signed By: 03/24/25335 [facility]08-25-2025 Evaluation note* Diagnosis Onset Date Resolution Status Admit Date Anemia of renal disease acuteAugust 2024 1:30pmCKD (chronic kidney disease) stage 4, GFR 15-29 ml/minacuteAugust 2024 1:30pmHyperkalemiaacuteAugust 2024 1:30pm Hyperlipidemia, mixedacuteAugust 2024 1:30pmHypertensive chronic kidney disease with stage 1 through stage 4 chronic kiacuteAugust 2024 1:30pm HypomagnesemiaacuteAugust 2024 1:30pmSecondary hyperparathyroidismacute January 26, 2025 1:30pmType 2 diabetes mellitus with diabetic chronic kidney diseaseacuteAugust 2024 1:30pm [facility] Work Phone: 1(477) 408-939408-25-2025 Evaluation note* Diagnosis Onset Date Resolution Status Admit Date Anemia of renal disease acuteAu2024 1:30pmCKD (chronic kidney disease) stage 4, GFR 15-29 ml/minacuteAugust 2024 1:30pmHyperkalemiaacuteAugust 2024 1:30pm Hyperlipidemia, mixedacuteAugust 2024 1:30pmHypertensive chronic kidney disease with stage 1 through stage 4 chronic kiacuteAugust 2024 1:30pm HypomagnesemiaacuteAugust 2024 1:30pmSecondary hyperparathyroidismacute January 26, 2025 1:30pmType 2 diabetes mellitus with diabetic chronic kidney diseaseacuteAugust 2024 1:30pmLeukocytosisacuteOctober 2024 2:52am Small bowel obstructionacuteOctober 2024 2:52amUTI (urinary tract infection)acuteOctober 2024 2:52am [facility] Work Phone: 1(153) 730-932808-25-2025 Evaluation note* Diagnosis Onset Date Resolution Status Admit Date Anemia of renal disease acuteAugust 2024 1:30pmCKD (chronic kidney disease) stage 4, GFR 15-29 ml/minacuteAugust 2024 1:30pmHyperkalemiaacuteAugust 2024 1:30pm Hyperlipidemia, mixedacuteAugust 2024 1:30pmHypertensive chronic kidney disease with stage 1 through stage 4 chronic kiacuteAugust 2024 1:30pm HypomagnesemiaacuteAugus2024 1:30pmSecondary hyperparathyroidismacute January 26, 2025 1:30pmType 2 diabetes mellitus with diabetic chronic kidney diseaseacuteAugus2024 1:30pmLeukocytosisresolvedOctober 2024 2:52amSmall bowel obstructionresolvedOctober 2024 2:52amUTI (urinary tract infection)resolvedOctober 2024 2:52amChronic kidney diseaseacuteOctober 2024 8:08amChronic venous insufficiencyacuteOctober 2024 8:08am Elevated PSAacuteOctober 2024 8:08amHyperlipidemia, mixedacuteOctober 2024 8:08amMedicare annual wellness visit, subsequentacuteOctober 2024 8:08amMicroscopic hematuriaacuteOctober 2024 8:08amObesityacute April 03, 2025 8:08amPernicious anemiaacuteOctober 2024 8:08amPrimary hypertensionacuteOctober 2024 8:08amRenal cyst, acquired, rightacute April 03, 2025 8: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October 2024 8:08amType 2 diabetes mellitus with hyperglycemiaacute April 03, 2025 8:08am [facility] Work Phone: 1(881) 513-351306-27-2025 Evaluation note* Diagnosis Onset Date Resolution Status Admit Date Chronic kidney disease acuteJune 2024 8:04amChronic venous insufficiencyacuteJune 2024 8:04amElevated PSAacuteJune 2024 8:04amHyperlipidemia, mixedacuteJune 2024 8:04amMicroscopic hematuriaacuteJune 2024 8:04amObesityacute November 28, 2024 8:04amPernicious anemiaacuteJune 2024 8:04amPrimary hypertensionacuteJune 2024 8:04amRenal cyst, acquired, rightacuteJune 2024 8:04amType 2 diabetes mellitus with diabetic polyneuropathyacuteJune 2024 8:04amType 2 diabetes mellitus with hyperglycemiaacuteJune 2024 8:04amAnemia of renal diseaseacuteAugust 2024 1:30pmCKD (chronic kidney disease) stage 4, GFR 15-29 ml/minacuteAugust 2024 1:30pmHyperkalemiaacute January 26, 2025 1:30pmHyperlipidemia, mixedacuteAugust 2024 1:30pm Hypertensive chronic kidney disease with stage 1 through stage 4 chronic [place] January 26, 2025 1:30pmHypomagnesemiaacuteAugust 2024 1:30pmSecondary hyperparathyroidismacuteAugust 2024 1:30pmType 2 diabetes mellitus with diabetic chronic kidney diseaseacuteAugust 2024 1:30pm [facility] Work Phone: 1(164) 994-388305-28-2025 Evaluation note* Diagnosis Onset Date Resolution Status Admit Date Anemia of renal disease acuteMay 2024 9:07amCKD (chronic kidney disease) stage 4, GFR 15-29 ml/min acuteMay 2024 9:07amHyperkalemiaacuteMay 2024 9:07amHyperlipidemia, mixedacuteMay 2024 9:07amHypertensive chronic kidney disease with stage 1 through stage 4 chronic kiacuteMay 2024 9:07amHypomagnesemiaacuteMay 2024 9:07amSecondary hyperparathyroidismacuteMay 2024 9:07amType 2 diabetes mellitus with diabetic chronic kidney diseaseacuteMay 2024 9:07am Chronic kidney diseaseacuteJune 2024 8:04amChronic venous insufficiency acuteJune 2024 8:04amElevated PSAacuteJune 2024 8:04am Hyperlipidemia, mixedacuteJune 2024 8:04amObesityacuteJune 2024 8:04amPernicious anemiaacuteJune 2024 8:04amPrimary hypertensionacuteJune 2024 8:04amRenal cyst, acquired, rightacuteJune 2024 8:04amType 2 diabetes mellitus with diabetic polyneuropathyacuteJune 2024 8:04amType 2 diabetes mellitus with hyperglycemiaacuteJune 2024 8:04am [facility] Work Phone: 1(873) 565-841505-28-2025 Evaluation note* Diagnosis Onset Date Resolution Status Admit Date Anemia of renal disease acuteMay 2024 9:07amCKD (chronic kidney disease) stage 4, GFR 15-29 ml/min acuteMay 2024 9:07amHyperkalemiaacuteMay 2024 9:07amHyperlipidemia, mixedacuteMay 2024 9:07amHypertensive chronic kidney disease with stage 1 through stage 4 chronic kiacuteMay 2024 9:07amHypomagnesemiaacuteMay 2024 9:07amSecondary hyperparathyroidismacuteMay 2024 9:07amType 2 diabetes mellitus with diabetic chronic kidney diseaseacuteMay 2024 9:07am Chronic kidney diseaseacuteJune 2024 8:04amChronic venous insufficiency acuteJune 2024 8:04amElevated PSAacuteJune 2024 8:04am Hyperlipidemia, mixedacuteJune 2024 8:04amMicroscopic hematuriaacuteJune 2024 8:04amObesityacuteJune 2024 8:04amPernicious anemiaacuteJune 2024 8:04amPrimary hypertensionacuteJune 2024 8:04amRenal cyst, acquired, rightacuteJune 2024 8:04amType 2 diabetes mellitus with diabetic polyneuropathyacuteJune 2024 8:04amType 2 diabetes mellitus with hyperglycemiaacuteJune 2024 8:04am [facility] Work Phone: 1(475) 676-581305-28-2025 Evaluation note* Diagnosis Onset Date Resolution Status Admit Date Anemia of renal disease acuteMay 2024 9:07amCKD (chronic kidney disease) stage 4, GFR 15-29 ml/min acuteMay 2024 9:07amHyperkalemiaacuteMay 2024 9:07amHyperlipidemia, mixedacuteMay 2024 9:07amHypertensive chronic kidney disease with stage 1 through stage 4 chronic kiacuteMay 2024 9:07amHypomagnesemiaacuteMay 2024 9:07amSecondary hyperparathyroidismacuteMay 2024 9:07amType 2 diabetes mellitus with diabetic chronic kidney diseaseacuteMay 2024 9:07am Chronic kidney diseaseacuteJune 2024 8:04amChronic venous insufficiency acuteJune 2024 8:04amElevated PSAacuteJune 2024 8:04am Hyperlipidemia, mixedacuteJune 2024 8:04amMicroscopic hematuriaacuteJune 2024 8:04amObesityacuteJune 2024 8:04amPernicious anemiaacuteJune 2024 8:04amPrimary hypertensionacuteJune 2024 8:04amRenal cyst, acquired, rightacuteJune 2024 8:04amType 2 diabetes mellitus with diabetic polyneuropathyacuteJune 2024 8:04amType 2 diabetes mellitus with hyperglycemiaacuteJune 2024 8:04amAnemia of renal diseaseacuteAugust 2024 1:30pmCKD (chronic kidney disease) stage 4, GFR 15-29 ml/minacuteAugust 2024 1:30pmHyperkalemiaacuteAugust 2024 1:30pmHyperlipidemia, mixed acuteAugust 2024 1:30pmHypertensive chronic kidney disease with stage 1 through stage 4 chronic kiacuteAugust 2024 1:30pmHypomagnesemiaacuteAugust 2024 1:30pmSecondary hyperparathyroidismacuteAugust 2024 1:30pmType 2 diabetes mellitus with diabetic chronic kidney diseaseacuteAugust 2024 1:30pm [facility] Work Phone: 1(311) 838-850805-15-2025 Hospital Discharge instructions Patient Education 10/16/2024 10:10:05 [...] Follow these instructions at home: Medicines Take wlpb-rql-bgfuljj and prescription medicines only as told by [...] or the blood stops without treatment. Take paim-sql-ffkjshp and prescription medicines only as told by your health care provider. Drink enough fluid to keep your urine pale yellow. This information is not intended to replace advice given to you by your health care provider. Make sure you discuss any questions you have with your health care provider. Document Revised: 01/19/2021 Document Reviewed: 01/19/2021 [employer] Patient Education 2023 [employer]. Follow Up Care 10/08/2024 16:20:15 With:[facility] Address: When: Unknown Comments:For procedure as scheduled. [facility] 05-15-2025 NotePatient Education Urology Hematuria, Adult Hematuria [...] these instructions at home: Medicines ??? Take gzeb-bod-pwnqaok and prescription medicines only as told by [...] the blood stops without treatment. ??? Take gvao-ehq-jqqxbbk and prescription medicines only as told by your health care provider. ??? Drink enough fluid to keep your urine pale yellow. This information is not intended to replace advice given to you by your health care provider. Make sure you discuss any questions you have with your health care provider. Document Revised: 01/19/2021 Document Reviewed: 01/19/2021 [employer] Patient Education ? 2023 [employer].[facility] 10-06-2024 NotePatient Education Urology Hematuria, [...] these instructions at home: Medicines ??? Take xwav-rac-pdjjvsg and prescription medicines only as told by [...] the blood stops without treatment. ??? Take fwnd-bjz-txxbddx and prescription medicines only as told by your health care provider. ??? Drink enough fluid to keep your urine pale yellow. This information is not intended to replace advice given to you by your health care provider. Make sure you discuss any questions you have with your health care provider. Document Revised: 01/19/2021 Document Reviewed: 01/19/2021 Elsevier Patient Education ? 2023 [employer] Monitoring [facility] 05-05-2024 Evaluation note* Diagnosis Onset Date Resolution Status Admit Date Anemia of renal disease acuteDecember 2023 2:29pmCKD (chronic kidney disease) stage 4, GFR 15-29 ml/minacuteDecember 2023 2:29pmHyperlipidemia, mixedacuteDecember 2023 2:29pmHypertensive chronic kidney disease with stage 1 through stage 4 chronic kiacuteDecember 2023 2:29pmSecondary hyperparathyroidismacuteDecember 2023 2:29pmType 2 diabetes mellitus with diabetic chronic kidney diseaseacute May 05, 2024 2:29pmAnemia of renal diseaseacuteFebruary 2024 2:34pm CKD (chronic kidney disease) stage 4, GFR 15-29 ml/minacuteFebruary 2024 2:34pmHyperlipidemia, mixedacuteFebruary 2024 2:34pmHypertensive chronic kidney disease with stage 1 through stage 4 chronic kiacuteFebruary 2024 2:34pmHypomagnesemiaacuteFebruary 2024 2:34pmSecondary hyperparathyroidism acuteFebruary 2024 2:34pmThrombocytopeniaacuteFebruary 2024 2:34pm Type 2 diabetes mellitus with diabetic chronic kidney diseaseacuteFebruary 2024 2:34pm [facility] Work Phone: 1(766) 851-583212-02-2024 Evaluation note* Diagnosis Onset Date Resolution Status Admit Date Anemia of renal disease acuteDecember 2023 2:29pmCKD (chronic kidney disease) stage 4, GFR 15-29 ml/minacuteDecember 2023 2:29pmHyperlipidemia, mixedacuteDecember 2023 2:29pmHypertensive chronic kidney disease with stage 1 through stage 4 chronic kiacuteDecember 2023 2:29pmSecondary hyperparathyroidismacuteDecember 2023 2:29pmType 2 diabetes mellitus with diabetic chronic kidney diseaseacute May 05, 2024 2:29pmAnemia of renal diseaseacuteFebruary 2024 2:34pm CKD (chronic kidney disease) stage 4, GFR 15-29 ml/minacuteFebruary 2024 2:34pmHyperlipidemia, mixedacuteFebruary 2024 2:34pmHypertensive chronic kidney disease with stage 1 through stage 4 chronic kiacuteFebruary 2024 2:34pmHypomagnesemiaacuteFebruary 2024 2:34pmSecondary hyperparathyroidism acuteFebruary 2024 2:34pmThrombocytopeniaacuteFebruary 2024 2:34pm Type 2 diabetes mellitus with diabetic chronic kidney diseaseacuteFebruary 2024 2:34pmChronic kidney diseaseacuteFebruary 2024 8:13amChronic venous insufficiencyacuteFebruary 2024 8:13amElevated PSAacuteFebruary 2024 8:13amHyperlipidemia, mixedacuteFebruary 2024 8:13amObesityacuteFebruary 2024 8:13amPernicious anemiaacuteFebruary 2024 8:13amPost herpetic neuralgiaacuteFebruary 2024 8:13amPrimary hypertensionacuteFebruary 2024 8:13amThrombocytopeniaacuteFebruary 2024 8:13amType 2 diabetes mellitus with diabetic polyneuropathyacuteFebruary 2024 8:13amType 2 diabetes mellitus with hyperglycemiaacuteFebruary 2024 8:13am [facility] Work Phone: 1(193) 515-989911-11-2024 Hospital Discharge instructions Patient Education 04/14/2024 12:36:08 [...] treatment? Where to find more information [employer] [place] [employer]: www.cancer.org [place] [employer]: www.auanet.org Contact a health care [...] provider. Document Revised: 11/14/2021 Document Reviewed: 11/14/2021 [employer] Patient Education 2023 [employer]. Follow Up Care 04/08/2024 11:27:26 With:JADE DOYLE, Jenaro Roberto, URL Address: [facility] [address] [place] [address]- [phone] When: Unknown Comments:6 mos w/ PSA [facility] 11-11-2024 NoteUrology Office/Clinic Note Chief Complaint referral [...] [facility] [address], [place] [address] [phone] Additional Instructions: 6 mos w/ PSA Patient [...] Oral, Daily Tradjenta, Oral, (more content not included)...[facility] Comment on above:Result Comment: Electronically Signed By: Jenaro HANSEN MD\.br\Date and Time Signed: 04/14/24 12:43 EST\.br\Electronically Co-Signed By: Rochelle Hightower\.br\Date and Time Co-Signed: 04/14/24 12:42 [id number] Note Patient Education Oncology Prostate Cancer Screening [...] Where to find more information ??? [employer] [place] [employer]: www.cancer.org ??? [place] [employer]: www.auanet.org Contact a health care [...] men. The prostate gland (more content not included)...[facility]10-28-2024 Evaluation note* Diagnosis Onset Date Resolution Status Admit Date Chronic kidney disease acuteOctober 2023 8:14amChronic venous insufficiencyacuteOctober 2023 8:14amHyperlipidemia, mixedacuteOctober 2023 8:14amMedicare annual wellness visit, subsequentacuteOctober 2023 8:14amObesityacuteOctober 2023 8:14amPernicious anemiaacuteOctober 2023 8:14amPrimary hypertensionacuteOctober 2023 8:14amScreening PSA (prostate specific antigen)acuteOctober 2023 8:14amType 2 diabetes mellitus with diabetic polyneuropathyacuteOctober 2023 8:14amType 2 diabetes mellitus with hyperglycemiaacuteOctober 2023 8:14amAnemia of renal diseaseacuteDeceer 2023 2:29pmCKD (chronic kidney disease) stage 4, GFR 15-29 ml/minacute May 05, 2024 2:29pmHyperlipidemia, mixedacuteDeceer 2023 2:29pm Hypertensive chronic kidney disease with stage 1 through stage 4 chronic kiacute May 05, 2024 2:29pmSecondary hyperparathyroidismacuteDecember 2023 2:29pmType 2 diabetes mellitus with diabetic chronic kidney diseaseacuteDece2023 2:29pm [facility] Work Phone: 1(620) 645-280910-18-2024 History of Present illness Narrative* Ashley Manzano, [employer]ING MACHINE OPERATOR - 03/21/2024 8:30 AM EDT Skin Check [...] Anterior (2), Right Forearm - Posterior, Right [place] Erythematous scaly papules Patient was counseled regarding [...] limited to risks of scarring, darker or circus roustabout pigmentary changes, recurrence, incomplete removal and infection. [...] Anterior (2), Right Forearm - Posterior, Right [place] 5. Capillary angioma (2) Left Arm, Right [...] 1 year, skin check documented in this encounterCox Walnut [id number] Evaluation note* Encounter Date Diagnosis Assessment Notes Treatment Notes Treatment Clinical Notes Jun, Pernicious anemia (ICD-10 - D51. 0) [facility] Other 10-24-2023 Evaluation note* Encounter Date Diagnosis [...] reviewed and amended by provider signed below. Mar,Type 2 diabetes mellitus with hyperglycemia, without long-term current use of insulin (ICD-10 - E11.65)This patient is following a comprehensive diabetic treatment [...] Microalbumin, Dilated eye exam and Foot exam Mar,Type 2 diabetes mellitus with diabetic polyneuropathy (ICD-10 - E11.42)Inspect feet daily for cuts and calluses.Recommend diabetic shoes and inserts to prevent callus formation.Fall precautions. Mar,rimary hypertension (ICD-10 - I10) Mar,Hyperlipidemia, mixed (ICD-10 - E78.2)Instructed on diet and exercise with continued statin therapy.Discussed the beneficial effects of lo wering cholesterol in reducing the risk for cerebrovascular and cardiovascular disease. Mar,hronic venous insufficiency (ICD-10 - I87.2)Avoid salt and elevate lower extremities, support stockings, inspect legs and feet daily for blisters and ulcerations. Mar,ernicious anemia (ICD-10 - D51.0)Continue replacement injections monthly Mar,Screening PSA (prostate specific antigen) (ICD-10 - Z12.5)Yearly PSA No change in symptoms, deferred MARIA INES Mar,Other obesity due to excess calories (ICD-10 - E66.09)This patient has been instructed on a low-fat, high-fiber diet. They are instructed to reduce calories, portion sizes and snacks. It is recommended that they exercise for 30 minutes, 3-5 times weekly. Mar,ody mass index [BMI] 30.0-30.9, adult (ICD-10 - Z68.30) [facility] Other 09-29-2023 Evaluation note* Encounter Date Diagnosis Assessment Notes Treatment Notes Treatment Clinical Notes Feb, Acute bronchitis due to other sp ecified organisms (ICD-10 - J20.8) Instructed to use Robitussin or Mucinex for cough, saline or Flonase NS for congestion, Tylenol forpain and fever. Feb,OVID (ICD-10 - U07.1)Self isolate at home. - Cannot work - avoid contact with others - avoid pets - wipe counters, door knobs if touched - if can't avoid leaving home, must wear mask to protect others - need to stay isola yoseph for 10 days from onset of symptoms - to discontinue isolation must be 5 days AND must be without fever for 24 hours AND symptoms must be improving. Always wear a mask in public places for complete 10 days [facility] Other 09-05-2023 Evaluation note* Encounter Date Diagnosis Assessment Notes Treatment Notes Treatment Clinical Notes Feb, Pernicious anemia (ICD-10 - D51. 0) [facility] Other 07-31-2023 Evaluation note* Encounter Date Diagnosis Assessment Notes Treatment Notes Treatment Clinical Notes Dec, Pernicious anemia (ICD-10 - D51. 0) [facility] Other 06-26-2023 Evaluation note* Encounter Date Diagnosis Assessment Notes Treatment Notes Treatment Clinical Notes Nov, Pernicious anemia (ICD-10 - D51. 0) [facility] Other 03-27-2023 Evaluation note* Encounter Date Diagnosis Assessment Notes Treatment Notes Treatment Clinical Notes Aug, Pernicious anemia (ICD-10 - D51. 0) [facility] Other 02-23-2023 Evaluation note* Encounter Date Diagnosis Assessment Notes Treatment Notes Treatment Clinical Notes Jul, Pernicious anemia (ICD-10 - D51. 0) [facility] Other 01-23-2023 Evaluation note* Encounter Date Diagnosis Assessment Notes Treatment Notes Treatment Clinical Notes Jun, Pernicious anemia (ICD-10 - D51. 0) [facility] Other 10-31-2022 Hospital Discharge instructions Patient Education [...] including vitamins, herbs, eye drops, creams, and jhlx-nkh-drffbdk medicines. This also includes: ?Medicines to assist [...] 06/23/2005 Document Revised: 05/03/2018 Document Reviewed: 02/25/2018 [employer] Monitoring Patient Education 2020 [employer]. Follow Up Care 03/28/2021 16:51:27 With:JADE DOYLE, Jenaro R, URL Address: [facility] [address], [place] [phone] When: only if needed [facility] 10-10-2022 Miscellaneous Notes* Telephone Encounter - Irena Cabrera - 03/13/2022 2:48 PM EDT Per last note 03/2021 follow up with labs. Please add lab orders for Sunday03/22/22. Thanks. Irena Cabrera MA documented in this encounterTrihealth09-27-2022 NoteHNO ID: [id number] Author: Iona Cabrera RN Service: ? Author Type: Registered Nurse Type: Progress Notes Filed: 02/28/2022 2:28 PM Note Text: Report of findings called to Trisha VIDAL at Dr. Jasso' office. She states she will let Dr. Reyes know. Elisabeth Cabrera [facility]-2022 NoteHNO ID: [id number] Author: Iona Cabrera RN Service: ? Author [...] Reyes as scheduled on 03/01/22. Elisabeth Cabrera [facility]NM[facility]09-26-2022 History of Present illness Narrative* Iona [...] 03/01/22. Elisabeth Cabrera RN documented in this encounterTrihealth09-23-2022 Miscellaneous Notes* Telephone Encounter - Yoly Boss PA-C - 02/24/2022 8:21 AM EDT Done Yoly Boss PA-C * Telephone Encounter - Eamon Biswas RN - 02/23/2022 4:40 PM EDT Patient of Dr Kidd who is scheduled for cath vernell 02/27/22 per prior phone encounter, can you please place orders. Thanks! Eamon Biswas RN documented in this encounterTrihealth09-20-2022 Miscellaneous Notes* Telephone Encounter - Allyssa Rueda - 02/21/2022 1:51 PM EDT Patient has been scheduled for activase on Sunday, 02/27. Called and spoke with regarding this appointment. Allyssa Rueda * Telephone Encounter - Aileen Fish [facility] - 02/21/2022 1:12 PM EDT Xray report scanned. * Telephone Encounter - Aileen Jenkins RN - 02/21/2022 12:24 PM EDT Spoke with and informed her that the orders were placed. NSG: states that it was accessed 2 days in a row at [facility] and there was swelling above port site. Dr. Reyes thought perhaps the nurse missed as they use a smaller port at [facility] which is where he had it placed. Informed that if we have swelling while patient is here, we would not proceed. verbalized understanding. PSS: please call patient/ to schedule on infusion schedule for possible 2 doses of activase. Jamia: Can you get an xray that was taken of the port at [facility] recently. ( states they did [...] to the treatment schedule. documented in this encounterTrihealth06-08-2022 NotePROCEDURE: XR FOOT LT MIN 3 VIEWS [...] Electronically authenticated by: ALONZO MADRIGAL Date: 2021-11-09 17:01[facility]10-20-2021 NoteHNO ID: [id number] Author: Kendall Honeycutt APRN.MINCING MACHINE OPERATOR Service: ? Author Type: Nurse Practitioner Type: Progress Notes Filed: 03/25/2021 12:42 PM Note Text: Patient: Eugenio Crews Location: [facility] : 1945 Attending Physician: Dr. Kings [...] colonoscopy in September with Dr. Reyes in [place]. He denies fevers, chills, night sweats and [...] with any questions or concerns. Kendall Honeycutt APRN.MINCING MACHINE OPERATOR March 23, 2021 I spent a total of 30 minutes on the date of the service which included preparing to see the patient, xvlt-ug-yfte patient care, completing clinical documentation, obtaining and/or reviewing separately obta (more content not included)...[facility]11-29-2019 History of Past illness Narrative* ProblemNoted DateResolved DateSBO (small bowel obstruction)05/02/2019 05/05/2019 Overview: Hx: A/p: -NPO -NGT -mIVF HSQ [...] planning if he tolerates GIS Small bowel hnssotfydgc56documented as of this encounter (statuses as of 02/21/2022) [facility]11-29-2019 History of Past illness Narrative* ProblemNoted Date Resolved DateSBO (small bowel obstruction) Overview: Hx: A/p: -NPO -NGT -mIVF HSQ [...] planning if he tolerates GIS Small bowel gglazdzlmha18documented as of this encounter (statuses as of 02/27/2022) [facility]11-29-2019 History of Past illness Narrative* ProblemNoted Date Resolved DateSBO (small bowel obstruction) Overview: Hx: A/p: -NPO -NGT -mIVF HSQ [...] planning if he tolerates GIS Small bowel ptpgqzwukma06documented as of this encounter (statuses as of 03/02/2022) [facility]11-29-2019 History of Past illness Narrative* ProblemNoted Date Resolved DateSBO (small bowel obstruction) Overview: Hx: A/p: -NPO -NGT -mIVF HSQ [...] planning if he tolerates GIS Small bowel lmyxaofbrod27documented as of this encounter (statuses as of 03/13/2022) TrihealthConsult note Author Arya Peña [facility] MemorialNote Date/TimeOctober 2024 11:49am [place] [address] General Surgery Consult Note Signed Patient: Eugenio Crews MR#: [id number] : 1945 Acct:[id number] Age/Sex: 79 / M Adm Date: 5 Loc: 4N Room: [address] [place] [address] Type: ADM IN Attending Dr: Bryon Aguilar MD Copies to: MD Gerry Torres DO Fredric Itzkowitz, DO~ History of Present Illness Date of consult: 03/24/2025 Reason for consult: abdominal pain Requesting/Attending Provider: Bryon Aguilar MD History of present illness: Pt is a well appearing 79 year old male who presents to [facility] at 0300 this morning for abdominal cramping and pain from [facility] ED. At 5pm last night, pt presented to the ED for abdominal cramping that reminded him of his previous episodes of SBO. Pt has a medical history of B-Cell lymphoma and has had a small bowel resection by Dr. Reyes in 2009. Pt states that he has had many episodes (up to 15) of SBO but has not had one in over 4 years. When patient was transferred to [facility] at 0300, pt had a large emesis episode which seemed to have relieved his abdominal pain. Pt states that hehas been able to have a normal bowel movement since then. Pt does not currently have any complaints. Review of Systems Review of Systems All other systems reviewed & are negative unless noted below or in HPI Constitutional Constitutional: Reports system reviewed and no additional complaints, except as documented, Reportsas per HPI, Denies chills, Denies fever(s), Denies headache(s) and Denies poor appetite Eyes Eyes: Reports system reviewed and no additional complaints, except as documented Cardiovascular Cardiovascular: Reports system reviewed and no additional complaints, except as documented, Reportsas per HPI, Denies chest pain, Denies dyspnea on exertion, Denies leg edema and Denies lightheadedness Respiratory Respiratory: Reports system reviewed and no additional complaints, except as documented, Denies cough, Denies dyspnea, Denies hemoptysis and Denies wheezing Gastrointestinal Gastrointestinal: Reports system reviewed and no additional complaints, except as documented, Denies change in stool character, Denies constipation, Denies cramping, Denies diarrhea and Denies hematochezia Genitourinary Genitourinary: Reports system reviewed and no additional complaints, except as documented, Denies difficulty urinating, Denies dysuria and Denies hematuria Musculoskeletal Musculoskeletal: Reports system reviewed and no additional complaints, except asdocumented Integumentary/Breasts Skin/Breast: Reports system reviewed and no additional complaints, except as documented Neurologic Neurologic: Reports system reviewed and no additional complaints, except as documented Psychiatric Psychiatric: Reports system reviewed and no additional complaints, except as documented Endocrine Endocrine: Reports system reviewed and no additional complaints, except as documented Hematologic/Lymphatic Hematologic/Lymphatic: Reports system reviewed and no additional complaints, except as documented PMFSH Source: Old Records Reviewed and Other (From Pt) Medical History Microscopic hematuria Renal cyst, acquired, right CT: 5.8cm renal cyst - 10/2024 Post herpetic neuralgia Elevated PSA Chronic kidney disease Screening PSA (prostate specific antigen) PSA: 2.93 - 02/2022, 2.64 - 03/2023, 5.63- 03/2024, 3.01 - 09/2024 Obesity Medicare annual wellness visit, subsequent Type 2 diabetes mellitus with hyperglycemia 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 Primary hypertension Presence of unspecified orthopedic joint implant Pernicious anemia Hyperlipidemia, mixed History of osteomyelitis High risk medication use Hammer toe of left foot Essential hypertension Chronic venous insufficiency Chest swelling Charcot's joint of foot 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 Benign prostatic hyperplasia with lower urinary tract symptoms Basal cell carcinoma of right lower extremity Basal cell carcinoma of nose Surgical History H/O cystoscopy (~11/2024) History of tonsillectomy History of cholecystectomy History of appendectomy History of resection of large bowel chemo, radiation, stem cell replacement History of hammertoe correction Left 2nd Toe History of total knee arthroplasty 1983, 2008, bilateral H/O colonoscopy (~09/23/20) History of surgery 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, Debridement left foot ulcer- 09/2018 Family History Mother Heart disease History of heart surgery Diabetes mellitus, type 2 Sister Cancer Legacy FamHx Problem: Diagnosed with Cancer Lung cancer Sister Stroke A-fib Social History Marital Status: Household Members: spouse Housing: house Smoking Status: Never smoker Substance Use Type: None Allergies & Medications Medications and Allergies Allergies piperacillin (Zosyn) Allergy (Unknown, Verified 03/24/25 03:13) Redness of Skin ketorolac (From Toradol) Allergy (Verified 03/24/25 03:13) kidney issues Home Medications aspirin 81 mg tablet,delayed release 81 mg PO 3XW 07/25/23 [History Confirmed 03/24/25] insulin glargine 100 unit/mL (3 mL) subcutaneous pen (Lantus Solostar U-100 Insulin) See Rx Instructions subcut QPM PRN RBS > 180 30 days #3 mL 03/31/24 [Rx Confirmed 03/24/25] calcium carbonate 600 mg PO DAILY 05/05/24 [History Confirmed 03/24/25] atorvastatin 10 mg tablet See Rx Instructions .Route .COMPLEX #90 tabs 10/02/24 [Rx Confirmed 03/24/25] magnesium aspart,citrate,oxide 400 mg PO DAILY 10/29/24 [History Confirmed 03/24/25] calcitriol 0.25 mcg capsule 0.25 mcg PO 3XW 01/26/25 [History Confirmed 03/24/25] carvedilol 6.25 mg tablet 6.25 mg PO BID 01/26/25 [History Confirmed 03/24/25] glimepiride 4 mg tablet 4 mg PO BID 01/26/25 [History Confirmed 03/24/25] lisinopril 2.5 mg tablet 2.5 mg PO DAILY 01/26/25 [History Confirmed 03/24/25] sitagliptin phosphate 25 mg tablet (Januvia) See Rx Instructions .Route .COMPLEX#30 tabs 02/02/25 [Rx Confirmed 03/24/25] gabapentin 100 mg capsule See Rx Instructions .Route .COMPLEX #30 caps 02/08/25 [Rx Confirmed 03/24/25] blood sugar diagnostic (Contour Next Test Strips) #100 strips 02/19/25 [Rx] Active Medications Dextrose (Dextrose 50% In Water 25 Gm/50 Ml Syringe) 0 gm IV-PUSH PRN PRN PRN Reason: Hypoglycemia Stop: 03/24/26 03:23 Glucose (Dextrose 40% Gel 15 Gm Tube) 0 gm PO PRN PRN PRN Reason: Hypoglycemia Stop: 03/24/26 03:23 Heparin Sodium (Porcine) (Heparin 5,000 Unit/Ml Vial) 5,000 unit SUBCUT Q8HR [facility] Stop: 03/24/26 13:59 Last Admin: 03/24/25 15:13 Dose: 5,000 unit Hydromorphone HCl (Hydromorphone 0.5 Mg/0.5 Ml Syringe) 0.4 mg IV-PUSH Q2HR PRN PRN Reason: Pain Scale 8 - 10 Ceftriaxone Sodium (Rocephin) 1 gm in 50 mls @ 100 mls/hr IV Q24H [facility] Last Admin: 03/24/25 04:07 Dose: 100 mls/hr Sodium Bicarbonate 100 meq/ (Dextrose) 1,100 mls @ 100 mls/hr IV .Q11H [facility] Stop: 03/24/26 12:59 Last Admin: 03/24/25 15:13 Dose: 100 mls/hr Insulin Aspart (Insulin Aspart 300 Units/3 Ml) 0 units SUBCUT Q6HR [facility]; Protocol Stop: 03/24/26 05:59 Last Admin: 03/24/25 13:21 Dose: Not Given Insulin Glargine (Insulin Glargine 300 Units/3 Ml Insuln.Pen) 8 units SUBCUT Q24H [facility] Stop: 03/24/26 11:59 Last Admin: 03/24/25 15:13 Dose: 8 units Metoprolol Tartrate (Metoprolol Tartrate 5 Mg/5 Ml Vial) 2.5 mg IV-PUSH Q6H [facility] Stop: 03/24/26 11:45 Last Admin: 03/24/25 13:20 Dose: Not Given Ondansetron HCl (Ondansetron 4 Mg/2 Ml Vial) 4 mg IV-PUSH Q4H PRN PRN Reason: Nausea And Vomiting Stop: 03/24/26 03:17 Exam Physical Exam Vital Signs: Temp Pulse Resp BP Pulse Ox O2 Del Method 97.8 F 87 20 136/80 97 Room Air 03/24/25 15:37 03/24/25 15:37 03/24/25 15:37 03/24/25 15:37 03/24/25 15:37 03/24/25 15:37 Const General: cooperative, comfortable and no acute distress Nutritional Appearance: well nourished and overweight Orientation: alert, awake and oriented x3 HEENT Ears: hearing grossly normal bilaterally Nose: external nose normal Eyes General: appearance normal, both eyes and all related structures Resp Effort & Inspection: normal respiratory effort and able to speak in complete sentences Auscultation: clear to auscultation bilaterally Cardio Palpation: normal PMI Rate: regular rate Rhythm: regular rhythm Heart Sounds: S1 normal and S2 normal GI Inspection: non-distended Palpation: soft, not firm, no guarding and nontender Auscultation: normal bowel sounds and no high pitched sounds Skin General: no rashes or lesions noted Neuro General: patient alert, patient awake and patient oriented x3 Cognition: normal cognition Speech: speech normal Extrem General: normal to inspection Psych Appearance: grossly normal Mental Status: mental status grossly normal Mood: congruent mood Affect: normal affect Speech and Movement: speech and movement normal Attitude: cooperative Thought Process: normal Thought Content: normal Insight: insight good Judgment: judgment good Results - Gen. Surgery Intake and Output 24 hour I&O: Intake & Output 03/24/25 03/24/25 03/24/25 07:59 15:59 23:59 Intake Total 0 / 0 Output Total 50 / 50 Balance -50 / -50 Weight 103.1 kg Labs 03/25/25 05:34 03/25/25 05:34 Laboratory Results - last 72 hr 03/24/25 11:18: POC Glucose 136 03/24/25 08:09: POC Glucose 178 03/24/25 05:10: PHA Creatinine Clear 23.37, Sodium 134 L, Potassium 5.8 H, Chloride 105, Carbon Dioxide 22.2, Anion Gap 12.6, BUN 43 H, Creatinine 3.39 H, Est GFR (CKD-EPI) 17.912, Glucose 216 H, Calcium 8.3 L 03/24/25 04:52: POC Glucose 223 A&P - General Surgery (1) Small bowel obstruction: (2) Leukocytosis: (3) UTI (urinary tract infection): Plan: I have personally seen and examined the patient on this date of the encounter. I have performed thekey parts of the physical examination, as well as review of the history, and pertinent tests. I have formulated the plan of care and made appropriate entries into the patient's chart. Eugenio is a 79-year-old male who states that he has had multiple episodes of small bowel obstructions following an initial surgery for lymphoma. The small bowel obstructions typically resolve by themselves after fewhours. This time he developed abdominal pain and he did not seem to be resolving. He went to the [facility] emergency room where he was diagnosed with a bowel obstruction based on CT findings and physical exam. The the ER doc called and asked if we would accept Eugenio in transfer with surgical consultation for bowel obstruction. He was subsequently transferred to [facility]. An NG tube was placed and the patient states that he is feeling much better. His obstruction in his opinion has cleared as it typically did. He had no abdominal pain and was passing flatus. The plan was to place him on clear liquid diet and see how he tolerates it. The NG tube will be clamped overnight. Plan Pt able to pass flatulence and has had a bowel movement since his acute episode. He has not vomitedsince 0400 this morning. Pt has no current complaints. 1. Clamp NG tube 2. Clear Liquid Diet 3. Admit to Hospital for Observation Documented By: Arya Peña DO 03/24/25 17 16 Signed By: <Electronically signed by Arya Peña DO> 03/25/25 1145 [facility] Work Phone: Evaluation + Plan note No data available for this section [facility] evaluation + Plan note Future Appointments Appointment Date:10/06/2024 08:45:00 AM Scheduled Provider:Jenaro HANSEN MD Location:[facility] Appointment Type:URO Office Visit Diagnostic Tests Pending * PSA Total 04/14/24 [facility] evaluation + Plan note Future Appointments Appointment Date:04/20/2025 08:45:00 AM Scheduled Provider:[facility]ANSEN [facility] Office Visit [facility] Evaluation + Plan note Future Appointments Appointment Date:04/20/2025 08:45:00 AM Scheduled Provider:Jenaro HANSEN MD Location:[facility] Appointment Type:URO Office Visit Diagnostic Tests Pending * Creatinine 10/16/24 * BUN 10/16/24 [facility] evaluation + Plan note Future Appointments Appointment Date:04/20/2025 08:45:00 AM Scheduled Provider:Jenaro HANSEN MD Location:[facility] Appointment Type:URO Office Visit Diagnostic Tests Pending * Urine Cytology ([facility]) 10/16/24 [facility] Evaluation note* Diagnosis Obstruction of central line, initial encounter (HCC) [facility] [place] [facility]* Diagnosis Obstruction of central line, initial encounter (HCC)- Primary Follicular lymphoma, unspecified follicular lymphoma type, unspecified body region (HCC) documented in this encounter [facility] note* Diagnosis Non-Hodgkin's lymphoma, unspecified body region, unspecified non-Hodgkin lymphoma type (HCC)- Primary [facility] [place] [facility]No [facility] Other evaluation note* Diagnosis Onset Date Resolution Status Chronic venous insufficiency acuteDiabetes mellitus with hyperglycemiaacuteHyperlipidemia, mixedacute Pernicious anemiaacutePrimary hypertensionacuteType 2 diabetes mellitus with diabetic polyneuropathyacute [facility] Work Phone: evaluation noteNo assessment information available [facility] Work Phone: evaluation note* Diagnosis Onset Date Resolution Status Herpes zoster acuteType 2 diabetes mellitus with hyperglycemiaacuteChronic venous insufficiencyacuteHyperlipidemia, mixedacutePernicious anemiaacutePrimary hypertensionacuteType 2 diabetes mellitus with diabetic polyneuropathyacuteType 2 diabetes mellitus with hyperglycemiaacute [facility] Work Phone: Evaluation note* Diagnosis Onset Date Resolution Status Chronic venous insufficiency acuteHyperlipidemia, mixedacutePernicious anemiaacutePrimary hypertensionacute Type 2 diabetes mellitus with diabetic polyneuropathyacuteType 2 diabetes mellitus with hyperglycemiaacute [facility] Work Phone: Evaluation note* Diagnosis Melanocytic nevus of right upper extremity Melanocytic nevus of left upper extremity Seborrheic keratosis Actinic keratosis Capillary angioma Nevus, non-neoplastic History of SCC (squamous cell carcinoma) of skin Personal history of other malignant neoplasm of skin [facility] Diagnosis Onset Date Resolution Status Chronic kidney disease acuteChronic venous insufficiencyacuteHyperlipidemia, mixedacuteMedicare annual wellness visit, subsequentacuteObesityacutePernicious anemiaacutePrimary hypertensionacuteScreening PSA (prostate specific antigen)acuteType 2 diabetes mellitus with diabetic polyneuropathyacuteType 2 diabetes mellitus with hyperglycemiaacute [facility] Work Phone: Evaluation note* Diagnosis Onset Date Resolution Status Admit Date Anemia of renal disease acuteMa2024 9:07amCKD (chronic kidney disease) stage 4, GFR 15-29 ml/min acuteMa2024 9:07amHyperlipidemia, mixedacuteMay 2024 9:07am Hypertensive chronic kidney disease with stage 1 through stage 4 chronic [place] May 2024 9:07amHypomagnesemiaacuteMay 2024 9:07amSecondary hyperparathyroidismacuteMa2024 9:07amThrombocytopeniaacutey 2024 9:07amType 2 diabetes mellitus with diabetic chronic kidney diseaseacuteMa2024 9:07am [facility] Work Phone: Evaluation note* Diagnosis Actinic keratosis Seborrheic keratosis Melanocytic nevus of right upper extremity Melanocytic nevus of left upper extremity Capillary angioma Nevus, non-neoplastic Lentigines History of SCC (squamous cell carcinoma) of skin Personal history of other malignant neoplasm of skin Neoplasm of unspecified behavior of bone, soft tissue, and skin documented in this encounter [facility] HealthcareHistory general Narrative - Reported* Type Description Date Surgical History Problem Title : COLONOSCOPY (98 [id number]), Problem Status : Active, Surgical HistoryProblem Title : HAMMERTOE REPAIR (30873), Problem Comment : left 2nd toe, Problem Status : Active,Surgical HistoryProblem Title : Knee arthroscopy, Problem Comment : multiple [id number], Problem Status : Inactive, Surgical HistoryProblem Title : OSTECTOMY OF TARSAL COALITION OF LEFT FOOT (96632), Problem Status : Active,Surgical HistoryProblem Title : past surgical history reviewed, Problem Description : past surgical history reviewed, Problem Comment : reviewed - no changes required, Problem Status : Inactive,Surgical HistoryProblem Title : Resection of Large Bowel, Problem Status : Inactive, Surgical History2: 2006, 2008, 2010 EGD 2008, 2010 Bowel Resection 2009 ERCP 2012 Left Foot Surgery 2012 Cystoscopy/TURP 2013 Left Hallux Longus Tendonopathy, Capsulotomy 08/2013 Cholecystecomty 2011 Manipulation under Anesthesia, Right Shoulder 06/2017Surgical History3: Debridement Left Foot Ulcer 09/2108, Problem Status : Inactive,Surgical History2: 2005, 2008, 2010 EGD 2008, 2010 Bowel Resection 2009 ERCP 2011 Left Foot Surgery 2012 Cystoscopy/TURP 2013 Left Hallux Longus Tendonopathy, Capsulotomy 08/2013 Cholecystecomty 2011 Manipulation under Anesthesia, Right Shoulder 06/2017, ProblemSurgical History3: Status : Inactive,Surgical History2: 2005, 2008, 2010 EGD 2008, 2010 Bowel Resection 2008 ERCP 2011 Left Foot Surgery 2011 Cystoscopy/TURP 2012 Left Hallux Longus Tendonopathy, Capsulotomy 08/2013 Cholecystecomty 2011, Problem Status : Inactive,Surgical History2: 2005, 2008, 2010 EGD 2008, 2010 Bowel Resection 2009 ERCP 2011 Left Foot Surgery 2011 Cystoscopy/TURP 2012 Left Hallux Longus Tendonopathy, Capsulotomy 08/2013, Problem Status : Inactive,Surgical History2: 2005, 2008, 2010 EGD 2008, 2010 Bowel Resection 2009 ERCP 2011 Left Foot Surgery 2012 Cystoscopy/TURP 2012, Problem Status : Inactive,Surgical History1: Problem Title : surgical procedures, hx of, Problem Description : surgical procedures, hx of, Problem Comment : Tonsillectomy Left Knee Arthroscopy 1994 Right Knee Arthroscopy 2997 Left TKA 2002 Right TKA 2009 Laporoscopy 2006 Colonoscopy Surgical History2: 2005, 2008, 2010 (repeat 2020) EGD 2008, 2010 Bowel Resection 2008 ERCP 2011 Left Foot Surgery 2011 Cystoscopy/TURP 2012 Left Hallux Longus Tendonopathy, Capsulotomy 08/2013 Cholecystecomty 2011 Manipulation under Anesthesia, Right ShoulderSurgical History3: 06/2017 Debridement Left Foot Ulcer 09/2108, Problem Status : Active, [employer] Other History general Narrative - Reported* Type Description Date Medical History Problem Title : ADL Summary, Problem Description : ADL Summary, Problem Comment : Bathing~independent^Dressing~independent^Eating~independent^Toil eting~independent^Transferring~independent^Continence~independen t, Problem Status : Active,, Medical HistoryProblem Title : Adult BMI between 22 kg/m2 and 30 kg/m2, Problem Description : Adult BMI between 22kg/m2 and 30 kg/m2, Problem Comment : 1~1~0, Problem Status : Active,,Medical HistoryProblem Title : Adult BMI greater than or equal to 30 kg/m2, Problem Description : Adult BMI greater than or equal to 30 kg/m2, Problem Comment : 1~1~0, Problem Status : Active,,Medical History Problem Title : Adult BMI less than 22 kg/m2, Problem Description : Adult BMI less than 22 kg/m2, Problem Comment : 1~1~0, Problem Status : Active,,Medical HistoryProblem Title : alcohol counseling, Problem Description : alcohol counseling, Problem Comment : no,Problem Status : Active,,Medical HistoryProblem Title : Child BMI less than 18.5 kg/m2, Problem Description : Child BMI less than 18.5 kg/m2, Problem Comment : 1~1~0, Problem Status : Active,,Medical HistoryProblem Title : compliance with medical treatment, Problem Description : compliance with medical treatment, Problem Comment : Done, Problem Status : Active,,Medical HistoryProblem Title : Contusion of right shoulder, initial encounter, Problem Description : Contusion of right shoulder, initial encounter, Problem Comment : Contusion of right shoulder, initial encounter,Problem Status : Inactive,,Medical HistoryProblem Title : Contusion of right shoulder, initial encounter [], Problem Description : Contusion of right shoulder, initial encounter [], Problem Comment : Contusion of right shoulder, initial encounter, Problem Status : Active,,Medical HistoryProblem Title : Depression Screening, Problem Description : Depression Screening, Problem Comment :Negative, Problem Status : Active,,Medical HistoryProblem Title : Depression: Baseline PHQ-9 total score?, Problem Description : Depression: BaselinePHQ-9 total score?, Problem Comment : 0, Problem Status : Active,,Medical HistoryProblem Title : Diabetes Mellitus, Problem Description : Diabetes Mellitus, Problem Comment : Yes, P roblem Status : Active,,Medical HistoryProblem Title : Essential (primary) hypertension [], Problem Description : Essential (primary) hypertension [], Problem Comment : Essential (primary) hypertension, Problem Status : Active,, Medical HistoryProblem Title : Fall assessment-Balance score, Problem Description : Fall assessment-Balance score,Problem Comment : , Problem Status : Active,,Medical HistoryProblem Title : Fall assessment-Balance score summary, Problem Description : Fall assessment-Balance score summary, Problem Comment : Sitting balance~1/^Arises~2/2^Attempts to arise~2/2^Immediate sta nding balance~2/2^Standing balance~1/1^Nudged~2/2^Eyes closed~/^360 degree turn~/^Sitting down~2/2, Problem Status : Active,,Medical HistoryProblem Title : Fall assessment-Gait score, Problem Description : Fall assessment-Gait score, Problem Comment : 05/15, Problem Status : Active,,Medical HistoryProblem Title : Fall assessment-Gait score summary, Problem Description : Fall assessment-Gait score summary, Problem Comment : Initiation of gait~1/^Step length- left~1/1^Step height-left~1/1^Step length-right~1/1^Step height-right~1/1^Step symmetry~1/^Step continuity~/^Path~2/2^Trunk~2/2^Walking stance~06/04, Problem Status : Active,,Medical HistoryProblem Title : Fall assessment-Total score, Problem Description : Fall assessment-Total score, Problem Comment : , Problem Status : Active,,Medical HistoryProblem Title : Fall Risk Assessment: I am worried about falling, Problem Description : Fall Risk Assessment: I am worried about falling, Problem Comment : No, Problem Status : Active,,Medical HistoryProblem Title : Fall Risk Assessment: Sometimes I feel unsteady when I am walking, Problem Description : Fall Risk Assessment: Sometimes I feel unsteady when I am walking, Problem Comment : No, Problem Status : Active,,Medical HistoryProblem Title : falls in the last twelve months, Problem Description : falls in the last twelve months, Problem Comment : No, Problem Status : Active,, Medical HistoryProblem Title : Falls: Risk Assessment - Patient screened for falls, fall risk, Problem Description: Falls: Risk Assessment - Patient screened for falls, fall risk, Problem Comment : Done, Problem Status : Active,,Medical HistoryProblem Title : get up and go (mobility test), Problem Description : get up and go (mobility test),Problem Comment : 1, Problem Status : Active,,Medical HistoryProblem Title : IADL Summary, Problem Description : IADL Summary, Problem Comment : Transportation~independent^Meal/Food Preparation~independent^Shopping Errands~independent^Housekeeping/Chores~independent^Money Management/Finances~independent^Medication Management~independent^Ability to Use Telephone~independent^Laundry~independent, Problem Status : Active,,Medical HistoryProblem Title : In the past 3 months, has anyone annoyed you by telling you to cut down or stop using drugs? (CAGE substance use question #2), Problem Description : In the past 3 months, has anyone annoyed you by telling you to cut down or stop using drugs? (CAGE substance use question #2), ProblemComment : N, Problem Status : Active,,Medical HistoryProblem Title : In the past 3 months, have you been waking up wanting to use drugs? (CAGE substanceuse question #4), Problem Description : In the past 3 months, have you been waking up wanting to use drugs? (CAGE substance use question #4), Problem Comment : N, Problem Status : Active,,Medical HistoryProblem Title : In the past 3 months, have you felt guilty or bad about using drugs? (CAGE substance use question #3), Problem Description : In the past 3 months, have you felt guilty or bad about using drugs? (CAGE substance use question #3), Problem Comment : N, Problem Status : Active,,Medical HistoryProblem Title : In the past 3 months, have you felt you should cut down or stop using drugs?(CAGE substance use question #1), Problem Description : In the past 3 months, have you felt you should cut down or stop using drugs?(CAGE substance use question #1), Problem Comment : N, Problem Status : Active,,Medical HistoryProblem Title : Injury sustained from fall(s)?, Problem Description : Injury sustained from fall(s)?, Problem Comment : No, Problem Status : Active,,Medical HistoryProblem Title : Intestinal adhesions [bands], with partial obstruction, Problem Description : Intestinal adhesions [bands], with partial obstruction, Problem Comment : Intestinal adhesions [bands], with partial obstruction, Problem Status : Inactive,,Medical History Problem Title : Intestinal adhesions [bands], with partial obstruction [], Problem Description : Intestinal adhesions [bands], with partial obstruction [], Problem Comment : Intestinal adhesions [bands], with partial obstruction, Problem Status : Active,,Medical HistoryProblem Title : Is Patient on Medicare. Used for Residency Programs to evaluate precepting guidelines from Medicare, Problem Description : Is Patient on Medicare. Used for Residency Programs to evaluate precepting guidelines from Medicare, Problem Comment : Yes, Problem Status : Active,,Medical HistoryProblem Title : Lymphoma, Problem Comment : 2005, Problem Status : Active,,Medical HistoryProblem Title : Medicare Annual Wellness Exam, Problem Description : Medicare Annual Wellness Exam,Problem Comment : [id number], Problem Status : Active,,Medical HistoryProblem Title : Medicare Part B,CMOD Checklist #1, Problem Description : Medicare Part B,CMOD Checklist #1, Problem Comment : Yes, Problem Status : Active,,Medical History Problem Title : Mental Status Exam summary of all, Problem Description : Mental Status Exam summaryof all, Problem Comment : Orientation to Time~10/06^Orientation to Place~10/06^Registration~08/04^Attention/Calculation~10/06^Recall~08/04^Language-name 2 objects~2/2^Language-repeat~06/04^Language-follow 3-stepcommand~3^Language- read and follow direction~06/04^Write a sentence~06/04^Copy design~06/04, Problem Sta tus : Active,,Medical HistoryProblem Title : Mental Status Exam total score, Problem Description : Mental Status Exam total score, Problem Comment : , Problem Status : Active,,Medical HistoryProblem Title : mini mental status exam, score, Problem Description : mini mental status exam, score, Problem CMedical HistorySquamous cell carcinoma - skiSurgical HistoryProblem Title : COLONOSCOPY (66904), Problem Status : Active,Surgical HistoryProblem Title : HAMMERTOE REPAIR (00433), Problem Comment : left 2nd toe, Problem Status : Active,Surgical HistoryProblem Title : Knee arthroscopy, Problem Comment : multiple [id number], Problem Status : Inactive,Surgical HistoryProblem Title : OSTECTOMY OF TARSAL COALITION OF LEFT FOOT (46974), Problem Status : Active,Surgical HistoryProblem Title : past surgical history reviewed, Problem Description : past surgical history reviewed, Problem Comment : reviewed - no changes required, Problem Status : Inactive,Surgical HistoryProblem Title : Resection of Large Bowel, Problem Status : Inactive,Surgical History2: 2006, 2008, 2010 EGD 2008, 2010 Bowel Resection 2009 ERCP 2012 Left Foot Surgery 2012 Cystoscopy/TURP 2013 Left Hallux Longus Tendonopathy, Capsulotomy 08/2013 Cholecystecomty 2011 Manipulation under Anesthesia, Right Shoulder 06/2017Surgical History3: Debridement Left Foot Ulcer 09/2108, Problem Status : Inactive,Surgical History2: 2005, 2008, 2010 EGD 2008, 2010 Bowel Resection 2009 ERCP 2011 Left Foot Surgery 2012 Cystoscopy/TURP 2013 Left Hallux Longus Tendonopathy, Capsulotomy 08/2013 Cholecystecomty 2011 Manipulation under Anesthesia, Right Shoulder 06/2017, ProblemSurgical History3: Status : Inactive,Surgical History2: 2005, 2008, 2010 EGD 2008, 2010 Bowel Resection 2009 ERCP 2012 Left Foot Surgery 2012 Cystoscopy/TURP 2013 Left Hallux Longus Tendonopathy, Capsulotomy 08/2013 Cholecystecomty 2011, Problem Status : Inactive,Surgical History2: 2005, 2008, 2010 EGD 2008, 2010 Bowel Resection 2008 ERCP 2011 Left Foot Surgery 2012 Cystoscopy/TURP 2013 Left Hallux Longus Tendonopathy, Capsulotomy 08/2013, Problem Status : Inactive,Surgical History2: 2005, 2008, 2010 EGD 2008, 2010 Bowel Resection 2008 ERCP 2011 Left Foot Surgery 2011 Cystoscopy/TURP 2012, Problem Status : Inactive,Surgical History1: Problem Title : surgical procedures, hx of, Problem Description : surgical procedures, hx of, Problem Comment : Tonsillectomy Left Knee Arthroscopy 1993 Right Knee Arthroscopy 2997 Left TKA 2002 Right TKA 2009 Laporoscopy 2006 Colonoscopy Surgical History2: 2005, 2008, 2010 (repeat 2020) EGD 2008, 2010 Bowel Resection 2008 ERCP 2011 Left Foot Surgery 2011 Cystoscopy/TURP 2012 Left Hallux Longus Tendonopathy, Capsulotomy 08/2013 Cholecystecomty 2011 Manipulation under Anesthesia, Right ShoulderSurgical History3: 06/2017 Debridement Left Foot Ulcer 09/2108, Problem Status : Active, [employer] Other History general Narrative - Reported* Type Description Date Medical History Presence of unspecified orthoped ic joint implant Medical HistoryCharcots joint of foot, unspecified lateralityMedical History History of osteomyelitisMedical HistorySquamous cell carcinoma of left upper extremityMedical HistoryPernicious anemiaMedical HistoryHigh risk medication use Medical HistoryBenign prostatic hyperplasia with lower urinary tract symptoms Medical History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Medical HistoryType 2 diabetes mellitus with diabetic polyneuropathyMedical History Essential hypertensionMedical HistoryHyperlipidemia, mixedMedical HistoryChest swellingMedical HistoryHammer toe of left footMedical HistoryBasal cell carcinoma of right lower extremityMedical HistoryChronic venous insufficiency Medical HistoryBasal cell carcinoma of noseSurgical [id number]/22/2021 Surgical HistoryHAMMERTOE REPAIR : left 2nd toeSurgical HistoryKnee arthroscopy 1983-2008Surgical HistoryOSTECTOMY OF TARSAL COALITION OF LEFT FOOTSurgical HistoryResection of Large BowelSurgical HistoryDebridement Left Foot Ulcer 09/2018Hospitalization Historysee surgical history [employer] Other Hospital Discharge instructions Additional Instructions 1. Sleep on 2 pillows 2. Small amount of Vaseline to sutures twice daily 3. You may shower late tomorrow afternoon, soap and water okay on wound 4. Tylenol or Motrin for discomfort 5 take antibiotic as prescribed 6. [facility] Discharge instructions No data available for this section [facility] Hospital Discharge instructionsAdditional Instructions Continue to monitor glucose levels as beforeMad[facility] Work Phone: Progress note No data available for this section [facility] progress note Author Arya Peña [facility] MemorialNote Date/TimeOctober 2024 11:51am [address] [address] General Surgery Progress Note Signed Patient: Eugenio Crews MR#: [id number] : 1945 Acct:[id number] Age/Sex: 79 / M Adm Date: 5 Loc: 4N Room: 3X7420-0 Type: ADM IN Attending Dr: Bryon Aguilar MD Copies to: ~ Date of Service: 03/25/2025 Subjective Subjective Patient reports: no new complaints, feels better, tolerating liquids well, tolerating a regular diet, bowel movement and afebrile HPI: Hospital Stay day 2. Mr. Crews was able to tolerate his liquid diet and has nothad any episodes ofemesis or nausea. Patient has also had two bowel movements since yesterday. He describes thee firstone earlier today as watery but his second bowel movement was well formed. Pt states he feels well and has no new complaints and is wanting to be discharged soon. Allergies & Medications Medications and Allergies Allergies piperacillin (Zosyn) Allergy (Unknown, Verified 03/24/25 03:13) Redness of Skin ketorolac (From Toradol) Allergy (Verified 03/24/25 03:13) kidney issues Home Medications aspirin 81 mg tablet,delayed release 81 mg PO 3XW 07/25/23 [History Confirmed 03/24/25] insulin glargine 100 unit/mL (3 mL) subcutaneous pen (Lantus Solostar U-100 Insulin) See Rx Instructions subcut QPM PRN RBS > 180 30 days #3 mL 03/31/24 [Rx Confirmed 03/24/25] calcium carbonate 600 mg PO DAILY 05/05/24 [History Confirmed 03/24/25] atorvastatin 10 mg tablet See Rx Instructions .Route .COMPLEX #90 tabs 10/02/24 [Rx Confirmed 03/24/25] magnesium aspart,citrate,oxide 400 mg PO DAILY 10/29/24 [History Confirmed 03/24/25] calcitriol 0.25 mcg capsule 0.25 mcg PO 3XW 01/26/25 [History Confirmed 03/24/25] carvedilol 6.25 mg tablet 6.25 mg PO BID 01/26/25 [History Confirmed 03/24/25] glimepiride 4 mg tablet 4 mg PO BID 01/26/25 [History Confirmed 03/24/25] lisinopril 2.5 mg tablet 2.5 mg PO DAILY 01/26/25 [History Confirmed 03/24/25] sitagliptin phosphate 25 mg tablet (Januvia) See Rx Instructions .Route .COMPLEX#30 tabs 02/02/25 [Rx Confirmed 03/24/25] gabapentin 100 mg capsule See Rx Instructions .Route .COMPLEX #30 caps 02/08/25 [Rx Confirmed 03/24/25] blood sugar diagnostic (Contour Next Test Strips) #100 strips 02/19/25 [Rx] Active Medications Dextrose (Dextrose 50% In Water 25 Gm/50 Ml Syringe) 0 gm IV-PUSH PRN PRN PRN Reason: Hypoglycemia Stop: 03/24/26 03:23 Glucose (Dextrose 40% Gel 15 Gm Tube) 0 gm PO PRN PRN PRN Reason: Hypoglycemia Stop: 03/24/26 03:23 Heparin Sodium (Porcine) (Heparin 5,000 Unit/Ml Vial) 5,000 unit SUBCUT Q8HR [facility] Stop: 03/24/26 13:59 Last Admin: 03/25/25 06:08 Dose: 5,000 unit Hydromorphone HCl (Hydromorphone 0.5 Mg/0.5 Ml Syringe) 0.4 mg IV-PUSH Q2HR PRN PRN Reason: Pain Scale 8 - 10 Ceftriaxone Sodium (Rocephin) 1 gm in 50 mls @ 100 mls/hr IV Q24H [facility] Last Admin: 03/25/25 04:31 Dose: 100 mls/hr Sodium Bicarbonate 100 meq/ (Dextrose) 1,100 mls @ 100 mls/hr IV .Q11H [facility] Stop: 03/24/26 12:59 Last Admin: 03/25/25 02:47 Dose: 100 mls/hr Insulin Aspart (Insulin Aspart 300 Units/3 Ml) 0 units SUBCUT Q6HR [facility]; Protocol Stop: 03/24/26 05:59 Last Admin: 03/25/25 06:08 Dose: Not Given Insulin Glargine (Insulin Glargine 300 Units/3 Ml Insuln.Pen) 8 units SUBCUT Q24H [facility] Stop: 03/24/26 11:59 Last Admin: 03/24/25 15:13 Dose: 8 units Metoprolol Tartrate (Metoprolol Tartrate 5 Mg/5 Ml Vial) 2.5 mg IV-PUSH Q6H [facility] Stop: 03/24/26 11:45 Last Admin: 03/25/25 08:38 Dose: 2.5 mg Ondansetron HCl (Ondansetron 4 Mg/2 Ml Vial) 4 mg IV-PUSH Q4H PRN PRN Reason: Nausea And Vomiting Stop: 03/24/26 03:17 Exam Physical Exam Vital Signs: Temp Pulse Resp BP Pulse Ox O2 Del Method 97.6 F 76 17 138/72 98 Room Air 03/25/25 11:15 03/25/25 11:15 03/25/25 11:15 03/25/25 11:15 03/25/25 11:15 03/25/25 11:15 Narrative: Pt is a well appearing 79 year old male on day 2 of his inpatient stay. Pt was originally transferred to [facility] for a suspected SBO. Patient has frequent SBOs and his last episode was over 4 years ago.Pt is alert and oriented x3/3 and is walking around well without assistance. Vital signs WNL. Abdomen non-distended and non-tender in all four quadrants. Heart rate regular rate and rhythm. Lung sounds clear to auscultation bilaterally. Const General: cooperative, healthy appearing, comfortable and no acute distress Nutritional Appearance: overweight Orientation: alert, awake and oriented x3 Limitations: altered mental status Resp Effort & Inspection: normal respiratory effort, able to speak in complete sentences and symmetric chest movement Auscultation: clear to auscultation bilaterally Cardio Jugular venous pressure: no JVD Rate: regular rate Rhythm: regular rhythm Heart Sounds: S1 normal and S2 normal GI Inspection: normal to inspection and non-distended Palpation: soft Auscultation: normal bowel sounds Neuro Speech: speech normal Psych Appearance: grossly normal Mental Status: mental status grossly normal Affect: normal affect Attitude: cooperative Thought Process: normal Objective Intake & Output 24 hour I&O: Intake & Output 03/24/25 03/25/25 03/25/25 23:59 07:59 15:59 Intake Total 1200 / 1200 Output Total 175 / 225 950 / 950 Balance -175 / -175 250 / 250 Weight 103.2 kg Labs 03/25/25 05:34 03/25/25 05:34 Laboratory Results - Last 48 hrs. 03/25/25 06:06: POC Glucose 118 03/25/25 05:34: Corrected WBC 7.1, Uncorrected WBC Count 7.1, RBC 3.54 L, Hgb 11.8 L, Hct 33.7 L, MCV 95.0, MCH 33.3, MCHC 35.0, RDW 12.8, Plt Count 150, MPV 7.1, Neut % (Auto) 76.6, Lymph % (Auto) 12.4, [place] % (Auto) 9.0, Eos % (Auto) 1.8, Baso % (Auto) 0.2, Nucleat RBC Rel Count 0.1, Neut # (Auto) 5.5, Lymph # (Auto) 0.9 L, [place] # (Auto) 0.6, Eos # (Auto) 0.1, Baso # (Auto) 0.0, PHA Creatinine Clear 27.06, Sodium 137, Potassium 4.5, Chloride 105, Carbon Dioxide 26.4, Anion Gap 10.1, BUN 39 H,Creatinine 2.93 H, Est GFR (CKD-EPI) 21.338, Glucose 116 H D, Calcium 8.3 L 03/25/25 00:56: POC Glucose 142 03/24/25 21:18: POC Glucose 204 03/24/25 17:23: POC Glucose 157 03/24/25 11:18: POC Glucose 136 03/24/25 08:09: POC Glucose 178 03/24/25 05:10: PHA Creatinine Clear 23.37, Sodium 134 L, Potassium 5.8 H, Chloride 105, Carbon Dioxide 22.2, Anion Gap 12.6, BUN 43 H, Creatinine 3.39 H, Est GFR (CKD-EPI) 17.912, Glucose 216 H, Calcium 8.3 L 03/24/25 04:52: POC Glucose 223 A&P - General Surgery Assessment/Plan (1) Small bowel obstruction: Plan I have personally seen and examined the patient on this date of the encounter. I have performed thekey parts of the physical examination, as well as review of the history, and pertinent tests. I have formulated the plan of care and made appropriate entries into the patient's chart. From a surgicalstandpoint Eugenio is doing much better he is tolerating his diet and has had bowel movements. He denies any abdominal pain his abdominal x-ray is significantly improved. Examination his abdomen is benign. I DC'd his NG tube and placed him on a GI soft diet. From a surgical standpoint he is cleared for discharge home. He has dealt with this problem for many years he knows how to take care of himself. There is no need for surgical follow-up, he can follow-up with his primary care doctor. I will sign off the case at this time, thank you Documented By: Arya Peña DO 03/25/25 11 36 Signed By: <Electronically signed by Arya Peña, > 03/25/25 1151 [facility] Work Phone: Reason for referral (narrative)No reason for referral information availableAkron [facility] Work Phone: Advance Directives No Advanced Directives Records FoundDocuments on File TypeDate RecordedPatient RepresentativeExplanationAdvance Directive(s)09/10/2009 10:04 PM Advance Directive Response Recorded Date/ Time Advance Directives No June 23, 2023 1:43pm Advance Directive Response Recorded Date/ Time Advance Directives No August 21 2:39pm Advance Directive Response Recorded Date/ Time Advance Directives No August 21 1:39pm Summary Purpose Family History No Family History Records Found Relationship Condition Age at Onset Recorded Date/T diogo Not Specified Heart disease Unknown sisterMalignant neoplasmUnknown Relationship Condition Age at Onset Recorded Date/T diogo Not Specified Heart disease Unknown History of heart surgeryUnknownType 2 diabetes mellitusUnknownsisterMalignant neoplasmUnknownMalignant neoplasm of lungUnknownsisterCerebrovascular accident (CVA)UnknownAtrial fibrillationUnknown Relationship Condition Age at Onset Recorded Date/T diogo mother Heart disease Unknown History of heart surgeryUnknownType 2 diabetes mellitusUnknownsisterMalignant neoplasmUnknownMalignant neoplasm of lungUnknownsisterCerebrovascular accident (CVA)UnknownAtrial fibrillationUnknown Chief Complaint and Reason for Visit Chief Complaint 4 Month Follow Up Reason for Visit Chronic venous insuf ficiency Diabetes mellitus with hyperglycemia Hyperlipidemia, mixed Pernicious anemia Primary hypertension Type 2 diabetes mellitus with diabetic polyneuropathy Chief Complaint 4 Month Follow Up 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Reason for VisitChronic venous insufficiency Diabetes mellitus with hyperglycemia Hyperlipidemia, mixed Pernicious anemia Primary hypertension Type 2 diabetes mellitus with diabetic polyneuropathy Chief Complaint 4 Month Follow Up 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Reason for VisitChronic venous insufficiency Diabetes mellitus with hyperglycemia Hyperlipidemia, mixed Pernicious anemia Primary hypertension Type 2 diabetes mellitus with diabetic polyneuropathy Chief Complaint 4 Month Follow Up 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 B-12 SHOTReason for VisitChronic venous insufficiency Diabetes mellitus with hyperglycemia Hyperlipidemia, mixed Pernicious anemia Primary hypertension Type 2 diabetes mellitus with diabetic polyneuropathy Chief Complaint 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 B-12 SHOT shingles Chief Complaint B-12 SHOT shingles 4 month follow upReason for VisitHerpes zoster Type 2 diabetes mellitus with hyperglycemia Chronic venous insufficiency Hyperlipidemia, mixed Pernicious anemia Primary hypertension Type 2 diabetes mellitus with diabetic polyneuropathy Type 2 diabetes mellitus with hyperglycemia Chief Complaint shingles 4 month follow up B12 ShotReason for VisitHerpes zoster Type 2 diabetes mellitus with hyperglycemia Chronic venous insufficiency Hyperlipidemia, mixed Pernicious anemia Primary hypertension Type 2 diabetes mellitus with diabetic polyneuropathy Type 2 diabetes mellitus with hyperglycemia Chief Complaint 4 month follow up B12 Shot B12 ShotReason for VisitChronic venous insufficiency Hyperlipidemia, mixed Pernicious anemia Primary hypertension Type 2 diabetes mellitus with diabetic polyneuropathy Type 2 diabetes mellitus with hyperglycemia Chief Complaint B12 Shot wellnessReason for VisitChronic kidney disease Chronic venous insufficiency Hyperlipidemia, mixed Medicare annual [...] 2:29pm Anemia of renal disease July 21 025 2:34pm CKD (chronic kidney disease) stage [...] 0:10pm SBO March 24, 2025 2 :52am Reason for Visit Admit Date Anemia of [...] UTI (urinary tract infection) March 242024 2:52am Chief Complaint Admit Date RENAL 3 MONTH F/U January 26, 2025 1: 30pm B12 Shot February 05, 2025 11:06am B12 Shot March 20, 2025 2 :17pm Unknown March 23, 2025 1 0:10pm SBO March 24, 2025 2 :52am Amb Documentation March 25, 2025 2 :18pm Wellness/[facility] f/u April 03, 2025 8 :08am Reason [...] with hyperglyce susie April 03, 2025 8:08am Additional Source Comments Source Comments (unrecognize d section and content) In the event this informatio n is protected by the Federal Confidentiality of Alcohol and Drug Abuse Patient Records regulations: The Federal rules restrict any use of the information to criminally investigate or prosecute any alcohol or drug abuse patient.TrihealthIn the event this information is protected by the Federal Confidentiality of Alcohol and Drug Abuse Patient Records regulations: The Federal rules restrict any use of the information to criminally investigate or prosecute any alcohol or drug abuse patient.TrihealthIn the event this information is protected by the Federal Confidentiality of Alcohol and Drug Abuse Patient Records regulations: The Federal rules restrict any use of the information to criminally investigate or prosecute any alcohol or drug abuse patient.TrihealthIn the event this information is protected by the Federal Confidentiality of Alcohol and Drug Abuse Patient Records regulations: The Federal rules restrict any use of the information to criminally investigate or prosecute any alcohol or drug abuse patient.[facility] Reason for Visit (unrecogniz ed section and content) ReasonCommentsport issuesReasonCommentsTreatment PlanningReasonCommentsLab OrdersReasonCommentsSkin Check Care Teams (unrecognized sec tion and content) Team Status: Active Member Role Status Freddy Chang DO Primary Care Provider Active Team Status: Inactive Member Role Status Freddy Chang DO Primary Care Provider Active Start: October 29, 2024 End: October 29lance Lynda , MDAttending ProviderActiveStart: October 29, 2024 End: October 29, 2024 Team Status: Inactive Member Role Status Freddy Chang DO Primary Care Provider Active Start: November 28, 2024 End: November 28paco Chang DOAttending ProviderActiveStart: November 28, 2024 End: November 28, 2024 Team Status: Inactive Member Role Status Freddy Chang DO Primary Care Provider Active Start: January 02, 2025 End: January 02paco Chang DOAttending ProviderActiveStart: January 02, 2025 End: January 02, 2025 Team Status: Active Member Role Status Freddy Chang DO Primary Care Provider Active Start: January 19, 2025 Vaishali Howell MDAttending ProviderActiveStart: January 19, 2025 Team Status: Inactive Member Role Status Freddy Chang DO Primary Care Provider Active Start: January 26, 2025 End: January 26lance Howell MDAttending ProviderActiveStart: January 26, 2025 End: January 26, 2025 Team Status: Active Member Role Status Freddy Chang DO Primary Care Provider Active Start: September 29, 2024 Joseline Barry ProviderActiveStart: September 29, 2024 Team Status: Active Member Role Status Freddy Chang DO Primary Care Provider Active Start: October 08, 2024 Joseline Barry ProviderActiveStart: October 08, 2024 Team Status: Active Member Role Status Freddy Chang DO Primary Care Provider Active Start: October 20, 2024 Vaishali Howell MDAttending ProviderActiveStart: October 20, 2024 Team Status: Active Member Role Status Freddy Chang DO Primary Care Provider Active Start: October 24, 2024 RANDI [facility] ProviderActiveStart: October 24, 2024 Team Status: Inactive Member [...] Start: November 28, 2023 End: November 28, 2023Team MemberRelationshipSpecialtyStart DateEnd Date Gerry Chang, DO [address] [place] [address] PCP - General09/07/09Team MemberRelationshipSpecialtyStart DateEnd Date Gerry Chang, DO [address] [place] [address] PCP - General09/07/09Team MemberRelationshipSpecialtyStart DateEnd Date Gerry Chang, DO [address] [place] [address] PCP - General09/07/09Team MemberRelationshipSpecialtyStart DateEnd Date Gerry Chang, DO [address] [place] [address] PCP - General09/07/09 Team Status: Active Member Role Status Freddy [...] Active Start: August 22, 2023 End: August 21paco Nelson DOAttending ProviderActiveStart: August 22, 2023 End: August 22, 2023 Team Status: Inactive Member Role Status Dates Gerry Chang DO Primary Care Provider Active Start: August 28, 2023 End: August 27paco Nelson , DOAttending ProviderActiveStart: August 28, 2023 End: August 28, 2023 [...] Start: February 05, 2024 End: February 05, 2024Team MemberRelationshipSpecialtyStart DateEnd Date Gerry Chang MD PCP - GeneralInternal Medicine08/04/23 Destiny Gant MD [address] [place] [address] Referring PhysicianDermatology10/31/23 Gerry Nelson DO [address] [place] [address] Otolaryngology10/31/23Team MemberRelationshipSpecialtyStart DateEnd Date Gerry Chang MD PCP - GeneralInternal Medicine08/04/23 Destiny Gant MD [address] [place] [address] Referring PhysicianDermatology10/31/23 Gerry Nelson, DO [address] [place] [address] Otolaryngology10/31/23 Team Status: Inactive Member Role Status Dates [...] Freddy Chang DO Primary Care Provide r, Referring Provider Active Start: May 05, 2024 End: May 05bdul Lynda , MDAttending ProviderActiveStart: May 05, 2024 End: May 05, 2024 [...] Provider Active Start: July 14, 2024 Vaishali Lynda MDAttending ProviderActiveStart: July 14, 2024 Team Status: Inactive Member Role Status Dates Gerry Chang DO Primary Care Provider Active Start: July 21, 2024 End: July 21bdtomy Milligandir MDAttending ProviderActiveStart: July 21, 2024 End: July 21, 2024 Team Status: Inactive Member Role Status Freddy Chang DO Primary Care Provide r, Attending Provider Active Start: July 30, 2024 End: July 30, 2024 Team Status: Inactive Member Role Status Freddy Chang DO Primary Care Provider Active Start: February 05, 2025 End: February 05paco Bernardo , DOAttending ProviderActiveStart: February 05, 2025 End: February 05, 2025 Team Status: Active Member Role/Relationship Status Dates Gerry Chang DO Primary Care Provider Active Team Status: Inactive Member Role/Relationship Status Dates Gerry Chang DO Primary Care Provider Active Start: January 02, 2025 End: January 02enmatteoberna Bernardo , DOAttending ProviderActiveStart: January 02, 2025 End: January 02, 2025 Team Status: Active Member Role/Relationship Status Dates Gerry Chang DO Primary Care Provider Active Start: January 19, 2025 Vaishali Lynda , MDAttending ProviderActiveStart: January 19, 2025 Team Status: Inactive Member Role/Relationship Status Dates Gerry Chang DO Primary Care Provider Active Start: January 26, 2025 End: January 26bdul Lynda , MDAttending ProviderActiveStart: January 26, 2025 End: January 26, 2025 Team Status: Inactive Member Role/Relationship Status Dates Gerry Chang DO Primary Care Provider Active Start: February 05, 2025 End: February 05enkamini Chang , DOAttending ProviderActiveStart: February 05, 2025 End: February 05, 2025 Team Status: Inactive Member Role/Relationship Status Dates Gerry Chang DO Primary Care Provider Active Start: March 20, 2025 End: March 20enkamini Chang , DOAttending ProviderActiveStart: March 20, 2025 End: March 20, 2025 Team Status: Active Member Role/Relationship Status Dates Gerry Chang DO Primary Care Provider Active Start: March 23, 2025 Guillermo Masterson DOAttending ProviderActiveStart: March 23, 2025 Team Status: Inactive Member Role/Relationship Status Dates Guillermo Masterson DO Attending Provider Active S tart: March 23, 2025 End: March 23, 2025 Team Status: Active Member Role/Relationship Status Dates Gerry Chang DO Primary Care Provider Active Start: March 24, 2025 Moise Walker MDAdmit ProviderActiveStart: March 24, 2025 Arya Peña , DOOther ProviderActiveStart: March 24, 2025 Nathan Jones MDOther ProviderActiveStart: March 24, 2025 Damaso Arellano DOOther ProviderActiveStart: March 24, 2025 Bryon Anyi Aguilarvish ProviderActiveStart: March 24, 2025 Team Status: Inactive Member Role/Relationship Status Dates Gerry Chang DO Primary Care Provider Active Start: March 24, 2025 End: March 25, 2025Dagilles Gabby Aaron DARIdmit ProviderActiveStart: March 24, 2025 End: March 25ndhernan Aguilar MDAttending ProviderActiveStart: March 24, 2025 End: March 25, 2025Team MemberRelationshipSpecialtyStart DateEnd Date Gerry Chang DO [address] [place] [id number] PCP - GeneralInternal Medicine08/04/23 Destiny Gant MD [address] [place] [address] Referring PhysicianDermatology10/31/23 Gerry Nelson DO [address] [place] [address] Otolaryngology10/31/23Team MemberRelationshipSpecialtyStart DateEnd Date Gerry Chang DO [address] [place] [id number] PCP - GeneralInternal Medicine08/04/23 Destiny Gant MD [address] [place] [address] Referring PhysicianDermatology10/31/23 Gerry Nelson DO [address] [place] [address] Otolaryngology10/31/23 Team Status: Active Member Role/Relationship Status Dates Gerry Chang DO Primary Care Provider Active Start: January 19, 2025 Vaishalitomy Howell MDAttending ProviderActiveStart: January 19, 2025 Team Status: Inactive Member Role/Relationship Status Dates Gerry Chang DO Primary Care Provider Active Start: January 26, 2025 End: January 26bdtomy Howell , MDAttending ProviderActiveStart: January 26, 2025 End: January 26, 2025 Team Status: Inactive Member Role/Relationship Status Dates Gerry Chang DO Primary Care Provider Active Start: February 05, 2025 End: February 05paco Chang DOAttending ProviderActiveStart: February 05, 2025 End: February 05, 2025 Team Status: Inactive Member Role/Relationship Status Dates Gerry Chagn DO Primary Care Provider Active Start: March 20, 2025 End: March 20paco Chang DOAttending ProviderActiveStart: March 20, 2025 End: March 20, 2025 Team Status: Active Member Role/Relationship Status Dates Gerry Chang DO Primary Care Provider Active Start: March 23, 2025 Guillermo Masterson DOAttending ProviderActiveStart: March 23, 2025 Team Status: Inactive Member Role/Relationship Status Dates Guillermo Masterson DO Attending Provider Active S tart: March 23, 2025 End: March 23, 2025 Team Status: Inactive Member Role/Relationship Status Dates Gerry Chang DO Primary Care Provider Active Start: March 24, 2025 End: March 25, 2025Joseph Luna ProviderActiveStart: March 24, 2025 End: March 25ndhernan Aguilar MDAttending ProviderActiveStart: March 24, 2025 End: March 25, 2025 Team Status: Active Member Role/Relationship Status Dates Gerry Chang DO Primary Care Provider Active Start: March 25, 2025 Cynthia Dasilva CMAAttending ProviderActiveStart: March 25, 2025 Team Status: Inactive Member Role/Relationship Status Dates Gerry Chang DO Primary Care Provider Active Start: April 03, 2025 End: April 03enkamini Chang DOAttending ProviderActiveStart: April 03, 2025 End: April 03, 2025 (unrecognized sect ion and content) No Status Records FoundNo Status Records FoundNo Status Records FoundNo Status Records FoundNo Status Records FoundNo Status Records FoundNo Status Records Found INFORMATION SOURCE (unrecogn ized section and content) DATE CREATED AUTHOR 03/05/[address] [facility] DATE CREATED AUTHOR AUTHOR'S ORGANIZ ATION 10/18/2022 [facility] DATE CREATED AUTHOR AUTHOR'S ORGANIZ ATION 11/14/2024 [facility] DATE CREATED AUTHOR AUTHOR'S ORGANIZ ATION 01/28/2025 [facility] DATE CREATED AUTHOR AUTHOR'S ORGANIZ ATION 01/29/2025 [facility] DATE CREATED AUTHOR AUTHOR'S ORGANIZ ATION 03/28/2025 [facility] DATE CREATED AUTHOR AUTHOR'S ORGANIZ ATION 04/03/2025 [facility] EPIC Goals (unrecognized section and content) Type Treatment Intervention Code Status: Full Code Goals may be documented in an alternate section FOR RECORDS PERTAINING TO PATIENTS [...] BE BASED ON THE PRIMARY CLINICAL RECORDS. [email or web address] [email or web address]. provides no warranty or guarantee of the accuracy or completeness of information in this document.
[2025-04-06 09:24] LABS: Microalbum Creatinine Ratio Ur 119.3 mg/g (0.0-29.9)
== END 2025-04-06 08:25 | disposition home or self-care (01) ==
LOC: LAB 08:26
PROVIDERS: PCP Internal Medicine; Visit Provider Internal Medicine
DX: E11.65 Type 2 diabetes mellitus with hyperglycemia (principal); Z79.4 Long term (current) use of insulin
CPT/HCPCS: 36415; 82043; 82570; 83036

== ENCOUNTER 2025-04-10 08:46 | Outpatient (OUT) | payer MEDICARE, SELFPAY ==
--- OUTSIDE RECORDS SUMMARY | 2025-04-02 07:35 | XMS_ITS | Encounter Summary ---
Author Organization [facility] Address [address] [place] [address] Care Team Providers Care Canine Enforcement Officer Name Role Phone Gerry Barton DO Primary Care Provider [phone] Destiny Gant MD Unavailable [phone] Gerry Nelson DO Unavailable [phone] Reason for Visit * ReasonCommentsSkin Check Encounter Details DateTypeDepartmentCare Team (Latest Contact Info)Atbswhzlkiu67/30/2025 8:35 AM EDTOffice Visit [facility] [address] [facility] [address] [place] [phone] Melody Manzano APRN-CNP [address] [facility] [address] [place] [address] Actinic keratosis; Seborrheic keratosis; Melanocytic nevus of right upper extremity; Melanocytic nevus of left upper extremity; Capillary angioma; Lentigines; History of SCC (squamous cell carcinoma) of skin; Neoplasm of unspecified behavior of bone, soft tissue, and skin Social History Tobacco UseTypesPacks/DayYears UsedDateSmoking Tobacco: NeverSmokeless Tobacco: NeverAlcohol UseStandard Drinks/WeekCommentsYes0 (1 standard drink = 0.6 oz pure alcohol)Monthly or lessSex and Gender InformationValueDate RecordedSex Assigned at BirthNot on fileLegal AbuEurz4008/16/2022 7:34 PM EDTGender IdentityNot on file Sexual OrientationNot on filedocumented as of this encounter Progress Notes * KELSIE Cade - 04/02/2025 8:35 AM EDT Images from the original note were not included. Skin Check Location: Patient requests a skin examination from the waist up Dermatologic history: history of Actinic Keratosis, history [...] despite medical recommendation: From the waist down Scalp, Examined , exam limited by hair Head, Face Examined Neck Not examined Chest Not examined Back Not examined Abdomen Not examined Right arm Examined Left arm Examined Hands Examined Digits,nails: Examined Lymphatics: Not examined Skin Exam 1. ACTINIC KERATOSIS (14) Left Dorsal Hand (2), Left Frontal Scalp, Left Parietal Scalp, Left Parotid Area, Mid Frontal Scalp(2), Mid Parietal Scalp (3), Right Eyebrow, Right Forearm - Posterior, Right Temporal Scalp, Right Zygomatic Area Erythematous scaly papules Patient was counseled regarding [...] limited to risks of scarring, darker or supervisor capacitor processing pigmentary changes, recurrence, incomplete removal and infection. Method: Liquid nitrogen was used to treat the lesion(s) with two 5-10 second freeze-thaw cycles. Number of lesions treated: 14 Post-procedure instructions: Instructions were given orally and in writing. The office will be contacted if the lesion fails to resolve despite treatment, or if a side effect develops such as abnormal crusting, scabbing, redness or tenderness - Cryotherapy, skin lesion - Left Dorsal Hand (2), Left Frontal Scalp, Left Parietal Scalp, Left Parotid Area, Mid Frontal Scalp (2), Mid Parietal Scalp (3), Right Eyebrow, Right Forearm - Posterior,Right Temporal Scalp, Right Zygomatic Area 2. SEBORRHEIC KERATOSIS (3) Left Arm, Right Arm, Scalp Stuck on verrucous, vega-brown papules and plaques. Patient was counseled regarding these benign growths. Removal is normally not necessary, but they may be removed if they are symptomatic or for cosmetic reasons. 3. MELANOCYTIC NEVUS OF RIGHT UPPER EXTREMITY Right Arm Scattered benign appearing, regular brown to light brown melanocytic papules and macules with similar morphology Counseled regarding these benign growths. Rarely, a nevus can develop into malignant melanoma, so any changing nevi should be promptly re-evaluated. 4. MELANOCYTIC NEVUS OF LEFT UPPER EXTREMITY Left Arm Scattered benign appearing, regular brown to light brown melanocytic papules and macules with similar morphology Counseled regarding these benign growths. Rarely, a nevus can develop into malignant melanoma, so any changing nevi should be promptly re-evaluated. 5. CAPILLARY ANGIOMA (2) Left Arm, Right Arm Scattered chambers-red papule(s). The patient was informed that angiomas are benign growths on the the skin. No treatment is necessary. 6. LENTIGINES (3) Head - Anterior (Face), Left Arm, Right Arm Scattered vega macules in sun-exposed areas. The patient was informed that lentigines are benign pigmented lesions that occur on sun-exposed andsun-damaged skin. No treatment is necessary. Recommended regular use of broad spectrum sunscreen SPF 30 or higher 7. HISTORY OF SCC (SQUAMOUS CELL CARCINOMA) OF SKIN Mid Parietal Scalp No evidence of recurrence [...] within or around the previous surgery scar. 8. NEOPLASM OF UNSPECIFIED BEHAVIOR OF BONE, SOFT TISSUE, AND SKIN (2) Mid Parietal Scalp Hyperkeratotic papule - Lesion biopsy Type of biopsy: tangential Informed consent: discussed and consent obtained Informed consent comment: The risks and benefits of the biopsy were discussed. Risks include but are not limited to bleeding, infection, scarring, pain, and nerve damage. An opportunity to ask questions prior to the procedure was permitted and all questions were answered. Patient was prepped and draped in usual sterile fashion: area cleansed with alcohol. Anesthesia: the lesion was anesthetized in a standard fashion Anesthetic: 1% lidocaine w/ epinephrine 1-100,000 buffered w/ 8.4% NaHCO3 Instrument used: DermaBlade Hemostasis achieved with: electrodesiccation Outcome: patient tolerated procedure well Outcome comment: The specimen was placed in a prelabeled formalin container to be sent for pathology Post-procedure details: sterile dressing applied and wound care instructions given Post-procedure details comment: Emphasized need to contact clinic for any signs of infection, uncontrollable bleeding, or complications. Dressing type: bandage Additional details: Photo taken Amount of lidocaine used: 0.3 cc Specimen A - Dermatopathology exam Differential Diagnosis: AK vs SCC Check Margins: No Size of lesion: 1.1 x 0.9 cm Left tip of Nose Keenes papule - Lesion biopsy Type of biopsy: tangential Informed consent: discussed and consent obtained Informed consent comment: The risks and benefits of the biopsy were discussed. Risks include but are not limited to bleeding, infection, scarring, pain, and nerve damage. An opportunity to ask questions prior to the procedure was permitted and all questions were answered. Patient was prepped and draped in usual sterile fashion: area cleansed with alcohol. Anesthesia: the lesion was anesthetized in a standard fashion Anesthetic: 1% lidocaine w/ epinephrine 1-100,000 buffered w/ 8.4% NaHCO3 Instrument used: DermaBlade Hemostasis achieved with: electrodesiccation Outcome: patient tolerated procedure well Outcome comment: The specimen was placed in a prelabeled formalin container to be sent for pathology Post-procedure details: sterile dressing applied and wound care instructions given Post-procedure details comment: Emphasized need to contact clinic for any signs of infection, uncontrollable bleeding, or complications. Dressing type: bandage Additional details: Photo taken Amount of lidocaine used: 0.5 cc Specimen B - Dermatopathology exam Differential Diagnosis: BCC vs SCC Check Margins: No Size of lesion: 0.4 x 0.4 cm Next Visit: 6 months skin check documented in this encounter Plan of Treatment DateTypeDepartmentCare Team (Latest Contact Info)Myengvofima13/30/2026 8:35 AM EDTOffice Visit [facility] [address] [place] [phone] Melody Manzano APRN-CNP [address] [place] [address] documented as of this encounter Procedures Procedure NamePriorityDate/TimeAssociated DiagnosisCommentsSKIN / NAIL BIOPSY Egkgymt5304/02/2025 8:27 AM EDT Neoplasm of unspecified behavior of bone, soft tissue, and skin SKIN / NAIL PHFPDSBdqvqfs26/30/2025 8:26 AM EDT Neoplasm of unspecified behavior of bone, soft tissue, and skin CRYOTHERAPY SKIN JQMZAPLcyofng83/30/2025 8:25 AM EDT Actinic keratosis ZZDERMATOPATHOLOGY EXAM CBBJLQAJAPOKineuuf36/30/2025 12:00 AM EDT Actinic keratosis Neoplasm of unspecified behavior of bone, soft tissue, and skin DERMATOPATHOLOGY WIBQBozmbet19/30/2025 12:00 AM EDT Neoplasm of unspecified behavior of bone, soft tissue, and skin documented in this encounter Results * Lesion biopsy (04/02/2025 8:27 AM EDT) Narrative Coco Manzano MA - 04/02/2025 8:27 AM EDT Type of biopsy: tangential Informed consent: discussed and consent obtained ?? Informed consent comment: ??The risks and benefits of the biopsy were discussed. Risks include but are not limited to bleeding, infection, scarring, pain, and nerve damage. An opportunity to ask questions prior to the procedure was permitted and all questions were answered. Patient was prepped and draped in usual sterile fashion: area cleansed with alcohol. Anesthesia: the lesion was anesthetized in a standard fashion ?? Anesthetic: ??1% lidocaine w/ epinephrine 1-100,000 buffered w/ 8.4% NaHCO3 Instrument used: DermaBlade ?? Hemostasis achieved with: electrodesiccation ?? Outcome: patient tolerated procedure well ?? Outcome comment: ??The specimen was placed in a prelabeled formalin container to be sent for pathology Post-procedure details: sterile dressing applied and wound care instructions given ?? Post-procedure details comment: ??Emphasized need to contact clinic for any signs of infection, uncontrollable bleeding, or complications. Dressing type: bandage ?? Additional details: ??Photo taken Amount of lidocaine used: 0.5 cc Authorizing ProviderResult TypeResult StatusNatalie A Felter AEGIS OPERATIONS SPECIALIST-CNPDERM PROCEDURE ORDERABLESFinal Result * Lesion biopsy (04/02/2025 8:26 AM EDT) Narrative Coco Manzano MA - 04/02/2025 8:26 AM EDT Type of biopsy: tangential Informed consent: discussed and consent obtained ?? Informed consent comment: ??The risks and benefits of the biopsy were discussed. Risks include but are not limited to bleeding, infection, scarring, pain, and nerve damage. An opportunity to ask questions prior to the procedure was permitted and all questions were answered. Patient was prepped and draped in usual sterile fashion: area cleansed with alcohol. Anesthesia: the lesion was anesthetized in a standard fashion ?? Anesthetic: ??1% lidocaine w/ epinephrine 1-100,000 buffered w/ 8.4% NaHCO3 Instrument used: DermaBlade ?? Hemostasis achieved with: electrodesiccation ?? Outcome: patient tolerated procedure well ?? Outcome comment: ??The specimen was placed in a prelabeled formalin container to be sent for pathology Post-procedure details: sterile dressing applied and wound care instructions given ?? Post-procedure details comment: ??Emphasized need to contact clinic for any signs of infection, uncontrollable bleeding, or complications. Dressing type: bandage ?? Additional details: ??Photo taken Amount of lidocaine used: 0.3 cc Authorizing ProviderResult TypeResult StatusNatalie A Felter AEGIS OPERATIONS SPECIALIST-CNPDERM PROCEDURE ORDERABLESFinal Result * Cryotherapy, skin lesion (04/02/2025 8:25 AM EDT) Narrative Authorizing ProviderResult TypeResult StatusNatalie A Felter AEGIS OPERATIONS SPECIALIST-CNPDERM PROCEDURE ORDERABLESFinal Result * Dermatopathology exam (04/02/2025 12:00 AM EDT)ComponentValueRef RangeTest MethodAnalysis TimePerformed AtPathologist SignatureSPECIMEN TYPE SPECIMEN: MID PARIETAL SCALP VIVIENNE [id number] Code C44.42AURORA DIAGNOSTICSPROTOCOLFF - FLAT, FRAGMENTAURORA DIAGNOSTICSFinal DiagnosisSQUAMOUS CELL CARCINOMA, WELL DIFFERENTIATED, SUPERFICIAL ASPECTS (SEE COMMENT). COMMENT: The tumor is broadly transected across the base and a subjacent invasive component cannot be excluded. VIVIENNE DIAGNOSTICSGross Text fragments ranging in size from largest to smallest; measuring 0.4x0.4x0.1cm to 0.1x0.1x0.1cm (eb/ni) (04/07/25) bx stuck in lid VIVIENNE DIAGNOSTICSMicroscopic DescriptionMicroscopic examination performed. VIVIENNE DIAGNOSTICSSPECIMEN TYPE SPECIMEN: LEFT TIP OF NOSE VIVIENNE [id number] CodeL57.0AURORA DIAGNOSTICSPROTOCOLF - FLATAURORA DIAGNOSTICSFinal DiagnosisACTINIC KERATOSIS.VIVIENNE DIAGNOSTICSGross TextAURORA DIAGNOSTICSMicroscopic DescriptionMicroscopic examination performed.VIVIENNE [id number]*2AURORA DIAGNOSTICSSpecimen (Source)Anatomical Location / LateralityCollection Method / VolumeCollection TimeReceived TimeSkin (tissue) specimen (specimen)Topography unknown / Dawjkyv9704/02/2025 8:26 AM EDTComment: Differential Diagnosis: AK vs SCC Check Margins: No Size of lesion: 1.1 x 0.9 cm Skin (tissue) specimen (specimen)Topography unknown / Gkczpcc3104/02/2025 8:27 AM EDTComment:Differential Diagnosis: BCC vs SCC Check Margins: No Size of lesion: 0.4 x 0.4 cm Narrative Authorizing ProviderResult TypeResult StatusNatalie Edward Manzano AEGIS OPERATIONS SPECIALIST-CNPLAB PATHOLOGY ORDERABLESFinal ResultPerforming OrganizationAddressCity/State/ZIP CodePhone Number [facility] documented in this encounter Visit Diagnoses Diagnosis Actinic keratosis Seborrheic keratosis Melanocytic nevus of right upper extremity Melanocytic nevus of left upper extremity Capillary angioma Nevus, non-neoplastic Lentigines History of SCC (squamous cell carcinoma) of skin Personal history of other malignant neoplasm of skin Neoplasm of unspecified behavior of bone, soft tissue, and skin documented in this encounter Care Teams Team MemberRelationshipSpecialtyStart DateEnd Date Gerry Barton DO [address] [place] [address] PCP - GeneralInternal Medicine08/04/23 Destiny Gant MD [address] [facility] [address] [place] [address] Referring PhysicianDermatology10/31/23 Gerry Nelson DO [address] [place] [address] Otolaryngology10/31/23documented as of this encounter
--- OUTSIDE RECORDS SUMMARY | 2025-04-10 08:54 | XMS_ITS | Encounter Summary ---
Author Organization [facility] Address [address] [address] Care Team Providers Care Countersinker Name Role Phone Gerry Barton DO Primary Care Provider [phone] Destiny Gant MD Unavailable [phone] Gerry Nelson DO Unavailable [phone] Encounter Details DateTypeDepartmentCare Team (Latest Contact Info)Gglbtnpuyuc04/30/2025amboo flowsheet [facility] [address] [place] [address] Melody Manzano, LOCOMOTIVE OILER-STEAMING CABINET TENDER [address] [place] [address] Social History Tobacco UseTypesPacks/DayYears UsedDateSmoking Tobacco: NeverSmokeless Tobacco: NeverAlcohol UseStandard Drinks/WeekCommentsYes0 (1 standard drink = 0.6 oz pure alcohol)Monthly or lessSex and Gender InformationValueDate RecordedSex Assigned at BirthNot on fileLegal UzqGysr1308/16/2022 7:34 PM EDTGender IdentityNot on file Sexual OrientationNot on filedocumented as of this encounter Plan of Treatment DateTypeDepartmentCare Team (Latest Contact Info)Erxfsmhvjoz64/30/2026 8:35 AM EDTOffice Visit [facility] [address] [place] [address] Melody Manzano, LOCOMOTIVE OILER-STEAMING CABINET TENDER [address] [place] [address] documented as of this encounter Visit Diagnoses Not on filedocumented in this encounter Care Teams Team MemberRelationshipSpecialtyStart DateEnd Date Gerry Barton DO [address] [facility] [place] [address] PCP - GeneralInternal Medicine08/04/23 Destiny Gant MD [address] [address] [place] [address] Referring PhysicianDermatology10/31/23 Gerry Nelson DO [address] [place] [address] Otolaryngology10/31/23documented as of this encounter
--- OUTSIDE RECORDS SUMMARY | 2025-04-10 08:54 | XMS_ITS | Clinical Summary ---
Author Organization [facility] tem Address [id number] [place] [address] Care Team Providers Care Fabric Sourcer Name Role Phone Gerry Barton Primary Care Provider [phone] Allergies Active AllergyReactionsCriticalityNoted DateCommentsPiperacillin-TazobactamRash High09/14/2009 Pt states he turned purple then shed all his skin weeks later Pt developed severe rash after zosyn initiated Bzwwoyire15/22/2021 kidney killer Medications MedicationSigDispense QuantityRefillsLast FilledStart DateEnd [...] standard drink = 0.6 oz pure alcohol)ChildcareAnswerDate AwpfqnmhWockeoeyjHdctjan53/12/2019EmploymentAnswer Date YzkzczhqTdtdyvqzjbGyofvle56/12/2019Hunger ScreeningAnswerDate Recorded Within the past 12 months we worried whether our food would run out before we got money to buy more.Never True02/28/2023Food Insecurity - InabilityNot on file 02/28/2023urpose - LifeAnswerDate RecordedPurpose and direction in lifeUnknown 07/15/2020ex and Gender InformationValueDate RecordedSex Assigned at BirthNot on fileLegal DzoQhuc8801/07/2015 11:21 AM EDTGender IdentityNot on fileSexual OrientationNot on file Last Filed Vital Signs Vital SignReadingTime TakenCommentsBlood Qrudmopd200/8102/28/2023 8:51 AM EDT Yrwkv777502/28/2023 8:51 AM CUDGdfsiregzno26.2 ??C (97.1 ??F)04/21/2022 9:24 AM ESTRespiratory Zyni348606/11/2021 1:00 PM ESTOxygen Mwvjuzzbfp68%04/11/2022 1:00 PM ESTInhaled Oxygen Concentration--Vwwipf990.1 kg (231 lb 9.6 oz)02/28/2023 8:51 AM HMOIemily225 cm (6' 2 )02/28/2023 8:51 AM EDTBody Mass Index29.74 02/28/2023 8:51 AM EDT Plan of Treatment Health MaintenanceDue DateLast DoneCommentsDepression Mqziihfma40/17/1960Tobacco Ecmszrkct94/17/1960DTaP,Tdap and Td Vaccines (1 - Tdap)1966Fall Risk Igqohnhou56/17/2013RSV ( or age 60+ yrs) (1 - 1-dose 75+ series) 3COVID-19 Vaccine ( season)509/, 09/13/2021, 01/17/2021, Additional history existsInfluenza Fdqfgwl87/01/401801/, 02/25/2021, 02/05/2020, Additional history existsZoster (Shingles) Vaccine Tiuofpplq23/15/2020, 06/01/2019, 04/10/2013 Medical Devices ImplantedTypeAreaManufacturerDevice IdentifierShelf Expiration DateModel / Serial / LotPort Powerport Mri Argd 8fr [address] [facility] [facility] [address] Intmd Kt Cecille Jostin - Sna - [id number] Implanted:Qty: 1 on 04/11/2022 by Radames [facility]acon [facility]ALTPortN/A: ChestBard Peripheral Cshvfrtw05/31/[id number] / NA / [id number] Insurance Care Teams Team MemberRelationshipSpecialtyStart DateEnd Date Gerry Barton DO [address] [place] [address] PCP - GeneralInternal Twlbfjsu02/17/22
--- OUTSIDE RECORDS SUMMARY | 2025-04-10 08:54 | XMS_ITS ---
Author Organization [facility] Address [address] [place] [address] Care Team Providers Care Churn Driller Name Role Phone Gerry Barton DO Primary Care Provider [phone] Active Problems ProblemNoted DateDiagnosed DateCentral line xhqzvyv99/20/2022Diabetes mellitus 05/02/2019 Overview (05/02/2019): A/p: -Q6 Accuchecks -ISS BPH (benign prostatic hyperplasia)09/21/20093329Xnylmtgncyg19/06/2010Drug-induced /06/2010 Overview (09/07/2009): chemotherapy Fever09/07/2009NHL (non-Hodgkin's lymphoma)08/27/2009 Overview (09/22/2009): Day: Protocol(s): Preparative regimen: Bu/Cy/ACCOUNT EXECUTIVE Mobilization regimen: ACCOUNT EXECUTIVE/G Stem cell source: PSC CD34 cell dose [...] SCDs, SQH D/c planning: RNF Small bowel oftbrgzdsaq02
--- OUTSIDE RECORDS SUMMARY | 2025-04-10 08:54 | XMS_ITS | Clinical Summary ---
Author Organization [facility] Healthcare Address [address] [place] [address] Care Team Providers Care Group Dynamics Instructor Name Role Phone Gerry Barton DO Primary Care Provider [phone] Destiny Gant MD Unavailable [phone] Gerry Nelson DO Unavailable [phone] Allergies Active AllergyReactionsCriticalityNoted YsxrXdmhhugsOupgldrttIusstat12/22/2021 kidney killer Ketorolac VugtwknkgtcjXrcoxwb16/21/2896Yvmzokzkptqp49/20/2024 Other Reaction(s): Redness of Skin Piperacillin Sod-Tazobactam BgTljuy2404/10/2013 Other Reaction(s): TURNED PURPLE Skin turned purple and pealed off Piperacillin-Tazobactam In OqoKpecGxwx84/13/2010 Pt states he turned purple then shed all his skin weeks later Pt developed severe rash after zosyn initiated Pt developed severe rash after zosyn initiated TvbkpebjqyUwrugdc41/20/2024 Medications MedicationSigDispense QuantityRefillsLast FilledStart DateEnd DateStatus aspirin [...] morning.Active Active Problems ProblemNoted DateDiagnosed DateAnkylosis, right xbtkdeov78/20/2024rthritis 08/22/2023symptomatic microscopic igkmngnoq49/20/2024leeding disorder 08/22/2023PH with urinary jlnxipcirze66/20/2024Elevated PSA08/22/2023Glucosuria 08/22/2023Hammertoe of left foot08/22/20237961Leuyrezt65/20/2024Other chronic pain 08/22/2023ain in right rihzynsu85/20/2024resence of both artificial knee ltnsoz8608/22/2023rotein in urine08/22/2023Skin ulcer of toe of left foot with fat layer ddjneyn7208/22/2023Type 2 diabetes mellitus with neurological ncxexzxeeuwtj79/20/2024entral line ihmdgsx19/20/2022Diabetes joauvofm52/29/2019 Overview (08/22/2023): A/p: -Q6 Accuchecks -ISS Claw toe, garqaart05/13/2014 Overview (08/22/2023): Left great toe Hemorrhage of gastrointestinal tract11/24/2010PH (benign prostatic hyperplasia) 09/21/2009Drug-induced lhuazwwhvyep00/06/2010 Overview (08/22/2023): chemotherapy Fever09/07/20098572Qlofcnnsaaf49/06/2010NHL (non-Hodgkin's lymphoma)08/27/2009 Overview (08/22/2023): Day: Protocol(s): Preparative regimen: Bu/Cy/SUPERVISOR SAMPLE Mobilization regimen: SUPERVISOR SAMPLE/G Stem cell source: PSC CD34 cell dose (x10e6/kg): 3.64 Date of transplant: 09/29/09 Resolved Problems ProblemNoted DateDiagnosed DateResolved DatePrimary xprzubirlwjp33/03/2024 09/05/2023ernicious edmqfa25Other obesity due to excess iwkynifl90Hyperlipidemia, mixedody mass index (BMI) 30.0-30.9, adulthronic venous insufficiency Encounters DateTypeDepartmentCare HphyAenzijagndn60/06/2025Results Follow-Up [facility] [place] [facility] [address] [place] [address] Melody Manzano EMERGENCY VEHICLE DRIVER-HIGINIO Dermatopathology exam04/02/2025 8:35 AM EDTOffice Visit [facility] [place] [facility] [address] [place] [address] Melody Manzano EMERGENCY VEHICLE DRIVER-PIE CHEF Actinic keratosis; Seborrheic keratosis; Melanocytic nevus of right upper extremity; Melanocytic nevus of left upper extremity; Capillary angioma; Lentigines; History of SCC (squamous cell carcinoma) of skin; Neoplasm of unspecified behavior of bone, soft tissue, and skin04/02/2025amboo flowsheet [facility] [address] [place] [address] Melody Manzano EMERGENCY VEHICLE DRIVER-PIE CHEF 04/02/20253819Wehlom00/22/2025External Result Encounter [facility] Unsolicited Arya Peña DO 03/24/2025External Result Encounter [facility] External [facility] Unsolicited Arya Peña DO from Last 3 Months Immunizations ImmunizationAdministration DatesNext DueDTaP, Inrqkqrlayj23/15/2018,03/26/2002 Influenza, High Dose Seasonal, Preservative Free04/12/2017,03/15/2016,04/06/2015 Influenza, High-dose Seasonal, Quadrivalent, Preservative Free02/05/2020 Influenza, Seasonal, Quadrivalent, Jhgkkwbxpp00/10/2023,02/23/2022Influenza, Nsqqhfscizt92/09/2019Influenza, trivalent, kyskfaudlf20/24/2021,03/26/2018 Pneumococcal Conjugate PCV 13106/09/2014Pneumococcal Polysaccharide PPSV23 03/16/2014Td (adult), 5 Lf tetanus toxoid, preservative free, aleptnve06/13/2014 Zoster, Ejwjolktaok02/15/2020,06/01/2019Zoster, live04/10/2013 Family History Medical HistoryRelationNameCommentsCancerDaughterHeart diseaseDaughter HypertensionDaughterKidney diseaseDaughterKidney diseaseFatherDiabetesMother Heart diseaseMotherHypertensionMotherStrokeMotherRelationNameStatusComments DaughterFatherDeceasedMotherDeceased Social History Tobacco UseTypesPacks/DayYears UsedDateSmoking Tobacco: NeverSmokeless Tobacco: Never Tobacco Cessation:Counseling Given: Not Answered Alcohol UseStandard Drinks/WeekCommentsYes0 (1 standard drink = 0.6 oz pure alcohol)Monthly or lessSex and Gender InformationValueDate RecordedSex Assigned at BirthNot on fileLegal XfwTukf1108/16/2022 7:34 PM EDTGender IdentityNot on file Sexual OrientationNot on file Last Filed Vital Signs Vital SignReadingTime TakenCommentsBlood Gfzuynyw623/8405/22/2023 9:37 AM EST Pulse--Temperature--Respiratory Rate--Oxygen Saturation--Inhaled Oxygen Concentration--Yeifdg588 kg (230 lb)10/31/2023 3:20 PM ZSEQnjwnu344 cm (6' 2 ) 10/31/2023 3:20 PM EDTBody Mass Index29.53010/31/2023 3:20 PM EDT Plan of Treatment DateTypeDepartmentCare Team (Latest Contact Info)Zymyeuiuluw43/30/2026 8:35 AM EDTOffice Visit [facility] [place] [facility] [address] [place] [address] Melody Manzano, EMERGENCY VEHICLE DRIVER-PIE CHEF [address] [place] [address] Health MaintenanceDue DateLast DoneCommentsCOVID-19 Vaccine (2024- season) 5002/18/2025, 02/13/2024, 03/13/2023, Additional history exists Pneumococcal Vaccine: 65+ AyixlXwjjcodbr08/06/2015, 03/16/2014Colorectal Cancer CtpayadruAbawyblgguwhUCGDbtjczzmkvti66/20/2021Influenza VaccineCompleted 02/04/2025, 02/13/2024, 03/13/2023, Additional history existsCT Colonography DiscontinuedColonoscopyDiscontinuedFIT-DNADiscontinuedFOBTDiscontinued SigmoidoscopyDiscontinued Procedures Procedure NamePriorityDate/TimeAssociated DiagnosisCommentsSKIN / NAIL BIOPSY Iwkoiby2704/02/2025 8:27 AM EDT Neoplasm of unspecified behavior of bone, soft tissue, and skin SKIN / NAIL LXBHFATdphbsa24/30/2025 8:26 AM EDT Neoplasm of unspecified behavior of bone, soft tissue, and skin CRYOTHERAPY SKIN FFYBZJFfbtwjj26/30/2025 8:25 AM EDT Actinic keratosis ZZDERMATOPATHOLOGY EXAM QEANYGCMFHBMezyuag84/30/2025 12:00 AM EDT Actinic keratosis Neoplasm of unspecified behavior of bone, soft tissue, and skin DERMATOPATHOLOGY FJSYOjehnur02/30/2025 12:00 AM EDT Neoplasm of unspecified behavior of bone, soft tissue, and skin XR ABDOMEN 2 VIEW03/25/2025 8:45 AM EDT XR ABDOMEN 2 VIEW03/24/2025 11:24 AM EDT from Last 3 Months Results * Lesion biopsy (04/02/2025 8:27 AM EDT) Coco Díaz MA - 04/02/2025 8:27 AM EDT Type [...] lidocaine used: 0.5 cc Authorizing ProviderResult TypeResult StatusNatalifranca Manzano EMERGENCY VEHICLE DRIVER-CNPDERM PROCEDURE ORDERABLESFinal Result * Lesion biopsy (04/02/2025 8:26 AM EDT) Coco Díaz MA - 04/02/2025 8:26 AM EDT Type [...] cc Authorizing ProviderResult TypeResult StatusNatalie A Felter EMERGENCY VEHICLE DRIVER-CNPDERM PROCEDURE ORDERABLESFinal Result * Cryotherapy, skin lesion (04/02/2025 8:25 AM EDT) Narrative Authorizing ProviderResult TypeResult StatusNatalie A Felter EMERGENCY VEHICLE DRIVER-CNPDERM PROCEDURE ORDERABLESFinal Result * Dermatopathology exam (04/02/2025 12:00 AM EDT)ComponentValueRef RangeTest MethodAnalysis TimePerformed AtPathologist SignatureSPECIMEN TYPE SPECIMEN: MID PARIETAL SCALP VIVIENNE WTZAFWNSUDWNCA72 Code C44.42AURORA DIAGNOSTICSPROTOCOLFF - FLAT, FRAGMENTAURORA DIAGNOSTICSFinal [...] TYPE SPECIMEN: LEFT TIP OF NOSE VIVIENNE HLATNIGRNTILPV52 CodeL57.0AURORA DIAGNOSTICSPROTOCOLF - FLATAURORA DIAGNOSTICSFinal DiagnosisACTINIC KERATOSIS.VIVIENNE DIAGNOSTICSGross TextAURORA DIAGNOSTICSMicroscopic DescriptionMicroscopic examination performed.VIVIENNE MFNVQDVWBNXBVP70914*2AURORA DIAGNOSTICSSpecimen (Source)Anatomical Location / LateralityCollection Method / VolumeCollection TimeReceived TimeSkin (tissue) specimen (specimen)Topography unknown / Gtzhxal3404/02/2025 8:26 AM EDTComment: Differential Diagnosis: AK vs SCC Check Margins: No Size of lesion: 1.1 x 0.9 cm Skin (tissue) specimen (specimen)Topography unknown / Zzdpyka8004/02/2025 8:27 AM EDTComment:Differential Diagnosis: BCC vs SCC Check Margins: No Size of lesion: 0.4 x 0.4 cm Narrative Authorizing ProviderResult TypeResult StatusNatalie Edward Manzano EMERGENCY VEHICLE DRIVER-[facility] PATHOLOGY ORDERABLESFinal ResultPerforming OrganizationAddressCity/State/ZIP CodePhone Number [facility] * XR ABDOMEN 2 VIEW (03/25/2025 8:45 [...] by Guillermo Salazar, DO in OV> ? 03/25/25 0846 Narrative 03/25/2025 8:49 AM EDT [facility] ?[facility] [place] ?[address] ? [place] [address] ?XRay Report ? Signed ? Patient: Regalado,Emanuel L ?MR#: [id number] ?? [id number] ? : 1945 ?Acct:[id number] ? Age/Sex: 79 / M ?ADM Date: 03/24/25 ? Loc: 4N ?Room: ??9Q7624-2 ?Type: ADM IN ?? Attending Dr: Bryon [...] abdomen min 2V ?? Procedure Note Radiology, RadiologistMD - 03/25/2025 [facility] [place] [address] XRay Report Signed Patient: Emanuel Regalado LMR#: [id number] : 8Acct:[id number] Age/Sex: 79 / MADM Date: 03/24/25 Loc: Room: 5I6147-8Hfqs: ADM IN Attending Dr: Bryon Aguilar MD [...] Salazar M.D. 03/25/2025 8:46 AM Dictation Location: [facility]16 Transcribed By: [facility] 03/25/25 0846 Dictated By: Guillermo Salazar DO 03/25/25 0845 Signed By: <Electronically signed by Guillermo Salazar DO in OV> 03/25/25 0846 Authorizing ProviderResult TypeResult StatusFredric Iraj Peña DOIMG XR PROCEDURESFinal Result from Last 3 [place] [address] Care Teams Team MemberRelationshipSpecialtyStart DateEnd Date Gerry Barton DO [address] [facility] [place] [address] PCP - GeneralInternal Medicine08/04/23 Destiny Gant MD [address] [facility] [address] [place] [address] Referring PhysicianDermatology10/31/23 Gerry Nelson DO [address] [place] [address] Otolaryngology10/31/23
--- OUTSIDE RECORDS SUMMARY | 2025-04-10 08:54 | XMS_ITS | Clinical Summary ---
Author Organization [facility] Address [address], [address] [place] [address] Care Team Providers Care Pouncing Lathe Operator Name Role Phone Gerry Barton DO Primary Care Provider [phone] Allergies Active AllergyReactionsCriticalityNoted DateCommentsPiperacillin Sod-Tazobactam SoOther (See [...] days.Active Active Problems ProblemNoted DateDiagnosed DateClaw toe, xxvynwfs68/13/2014 Overview (08/14/2013): Left great toe Ulcer of [...] Last Filed Vital Signs Vital SignReadingTime TakenCommentsBlood Syyofwxb283/76009/25/2013 8:57 AM EDT Ztrql055309/25/2013 8:57 AM WQXQdlhsdcvmdq45.7 ??C (96.3 ??F)09/25/2013 8:57 AM EDTRespiratory Owcj390009/25/2013 8:57 AM EDTOxygen Latptyqxcp39%08/15/2013 8:45 AM EDTInhaled Oxygen Concentration--Jcdeyp088.5 kg (248 lb)09/25/2013 8:57 AM DRFIafztg582 cm (6' 2 )09/25/2013 8:57 AM EDTBody Mass Index31.8409/25/2013 8:57 AM EDT Plan of Treatment Not on file Care Teams Team MemberRelationshipSpecialtyStart DateEnd Date Gerry Barton DO [address] [place] [address] [facility] - Qqpkswb21/5/13
--- OUTSIDE RECORDS SUMMARY | 2025-04-10 08:54 | XMS_ITS | Encounter Summary ---
Author Organization [facility] Address [address] [place] [address] Care Team Providers Care Sales Engineer Engineered Products Name Role Phone Gerry Barton DO Primary Care Provider [phone] Destiny Gant MD Unavailable [phone] Gerry Nelson DO Unavailable [phone] Encounter Details DateTypeDepartmentCare Team (Latest Contact Info)Ggsashygiko34/30/2025Travel Social History Tobacco UseTypesPacks/DayYears UsedDateSmoking Tobacco: NeverSmokeless Tobacco: NeverAlcohol UseStandard Drinks/WeekCommentsYes0 (1 standard drink = 0.6 oz pure alcohol)Monthly or lessSex and Gender InformationValueDate RecordedSex Assigned at BirthNot on fileLegal PmiNuvg9508/16/2022 7:34 PM EDTGender IdentityNot on file Sexual OrientationNot on filedocumented as of this encounter Plan of Treatment DateTypeDepartmentCare Team (Latest Contact Info)Dhoqxedwoxn34/30/2026 8:35 AM EDTOffice Visit [facility] [address] [facility] [place] [address] Melody Manzano, SENIOR ASP NET DEVELOPER-SLICE PLUG CUTTER OPERATOR HELPER [address] [place] [address] documented as of this encounter Visit Diagnoses Not on filedocumented in this encounter Care Teams Team MemberRelationshipSpecialtyStart DateEnd Date Gerry Barton DO [address] [facility] [place] [address] PCP - GeneralInternal Medicine08/04/23 Destiny Gant MD [address] [place] [address] Referring PhysicianDermatology10/31/23 Gerry Nelson DO [address] [place] [address] Otolaryngology10/31/23documented as of this encounter
--- OUTSIDE RECORDS SUMMARY | 2025-04-10 08:54 | XMS_ITS | Clinical Summary ---
Author Organization [facility] Address [address] [place] [address] Care Team Providers Care Customs Compliance Director Name Role Phone Gerry Barton DO Primary Care Provider [phone] Allergies Active AllergyReactionsCriticalityNoted HgnaKxbxrywwNfajtxlnkRgksuxq30/22/2021 kidney killer Piperacillin-LuojiyqvnlZroaZadi10/13/2010 Pt developed severe rash after zosyn initiated [...] daily.Active Active Problems ProblemNoted DateDiagnosed DateCentral line hahxnlg30/20/2022Diabetes mellitus 05/02/2019 Overview (05/02/2019): A/p: -Q6 Accuchecks -ISS BPH (benign prostatic hyperplasia)09/21/20094133Lscrhzecouq52/06/2010Drug-induced vmcetvobjgaa51/06/2010 Overview (09/07/2009): chemotherapy Fever09/07/2009NHL (non-Hodgkin's lymphoma)08/27/2009 Overview (09/22/2009): Day: Protocol(s): Preparative regimen: Bu/Cy/ENGRAVER TIRE MOLD Mobilization regimen: ENGRAVER TIRE MOLD/G Stem cell source: PSC CD34 cell dose [...] SCDs, SQH D/c planning: RNF Small bowel scbdxoehbwz35 Immunizations ImmunizationAdministration DatesNext Dueinfluenza (HD-IIV3) vaccine, age [...] drink = 0.6 oz pure alcohol)PHQ-2AnswerDate RecordedPHQ-2 bspjn5791Area Deprivation Index AnswerDate RecordedNational Score (1-100), lower number is lower risk74 2022State Score (1-10), lower number is lower riskNot on file2022 Data from: https://www.neighborhoodatlas.medicine.[facility].edu/. Last address used for [address]22Sex and Gender InformationValueDate RecordedSex Assigned at BirthNot on fileLegal WcvBrng71/02/2012 8:27 AM EST Gender IdentityNot on fileSexual OrientationNot on file Last Filed Vital Signs Vital SignReadingTime TakenCommentsBlood Ozhbvexy019/5403/23/2021 1:05 PM EDT Qlghp390403/23/2021 1:05 PM HFOHzifkcyivtp87.3 ??C (97.4 ??F)03/23/2021 1:05 PM EDTRespiratory Sgja3423 1:05 PM EDTOxygen Enougrvnkg20%03/23/2021 1:05 PM EDTInhaled Oxygen Concentration--Ljfufo199.9 kg (233 lb 6.4 oz)03/23/2021 1:05 PM DFIXrplod242.4 cm (6' 0.99 )03/23/2021 1:05 PM EDTBody Mass Index30.8 03/23/2021 1:05 PM EDT Plan of Treatment Health MaintenanceDue DateLast DoneCommentsAnxiety Baneqbojk18/17/1966Depression Phcedexvl07/17/1966Hepatitis C Bfokulltc54/17/1966DTaP,Tdap,Td Vaccine (1 - Tdap)1966Pneumococcal Vaccine: 50+ (1 of 1 - PCV)1997RSV Vaccine (1 - 1-dose 75+ series)3Diabetes Lglmnoajo34/20/456588, 05/03/2019, 05/02/2019, Additional history existsAdvance Directive Discussion 5Covid-19 Vaccine ( season)5002/23/2022, 09/13/2021, 01/17/2021, Additional history existsInfluenza Vaccine (#1)509/, 02/25/2021, 02/05/2020, Additional history existsShingrix VaccineCompleted 08/17/2019, 06/01/2019, 04/10/20132026VfevcqktcpnMafacmgduekr49/22/2021Colorectal Cancer ScreeningDiscontinuedFecal Occult EbtdkCphrwgskvild89/20/2021T ColonographyDiscontinuedCologuard (FIT-DNA)DiscontinuedSigmoidoscopyDiscontinued Procedures Procedure NamePriorityDate/TimeAssociated DiagnosisCommentsIMMUNOCHEMICAL FECAL OCCULT BLOOD VQTBUwcfffi62/20/2021 1:57 PM EDT Non-Hodgkin's lymphoma, unspecified body region, unspecified non-Hodgkin lymphoma type (HCC) Anemia, unspecified type COMPREHENSIVE METABOLIC IKNUYOozdffb57/20/2021 1:05 PM EDT Follicular lymphoma, unspecified follicular lymphoma type, unspecified body region (HCC) from Last 3 Months or Most Recently Relevant to Health Maintenance Results * FECAL OCCULT BLOOD TEST (03/23/2021 1:57 PM EDT)ComponentValueRef RangeTest MethodAnalysis TimePerformed AtPathologist SignatureOccult Blood, Stool OnlrocrwBmvwelmk36/01/2021 2:57 PM EDTCOhioHealth Grove City Methodist Hospital LaboratoriesComment: This test was developed and its performance characteristics determined by [facility] [place] ([facility]). It has not been cleared or approved by the FDA. [facility] is regulated under CLIA as qualified to perform high complexity testing. This test is used for clinical purposes. It should not be regarded as investigational or for research. Specimen (Source)Anatomical Location / LateralityCollection Method / Volume Collection TimeReceived TimeStool RandomSTOOL SPECIMEN / Uvgdipa9703/23/2021 1:57 PM EDT106/04/2020 2:57 PM EDT Narrative Authorizing ProviderResult TypeResult StatusHolly Boni MESAN.CNPLABORATORY Final ResultPerforming OrganizationAddressCity/State/ZIP CodePhone Number [facility] [address] [place] [address] [facility] [address] [place] [address] * (ABNORMAL) COMP METABOLIC PANEL (03/23/2021 1:05 PM EDT)ComponentValueRef RangeTest MethodAnalysis TimePerformed AtPathologist SignatureProtein, Total 6.2(L)6.3 - 8.0 g/dL03/23/2021 1:42 PM EDTCMiami Valley Hospital Cancer CareAlbumin3.93.9 - 4.9 g/dL03/23/2021 1:42 PM [facility] Cancer CareCalcium8.98.5 - 10.2 mg/dL03/23/2021 1:42 PM [facility] Cancer CareBilirubin, Total0.30.2 - 1.3 mg/dL03/23/2021 1:42 PM [facility] CareAlkaline Rkjvivdxqpy685(H)38 - 113 U/L1 1:42 PM [facility] Cancer LmyiYFL95(L)14 - 40 U/L1 1:42 PM [facility] Cancer RzeqHqfrbeu267 (H)74 - 99 mg/dL03/23/2021 1:42 PM [facility] Cancer Care Comment: The [place] Diabetes Association (ADA) provides guidance for cutoff [...] Standards of Medical Care in Diabetes 2016, [place] [employer] Association. Diabetes Care. 2016.39(Suppl 1). BUN29(H)9 - 24 mg/dL03/23/2021 1:42 PM [facility] Cancer CareCreatinine2.54(H)0.73 - 1.22 mg/dL03/23/2021 1:42 PM [facility] Cancer UpabDhwhvs042(L)136 - 144 mmol/L1 1:42 PM T [facility] Cancer CarePotassium4.73.7 - 5.1 mmol/L1 1:42 PM [facility] Cancer WokzLwbzujfw833(H)97 - 105 mmol/L 03/23/2021 1:42 PM EDTCMiami Valley Hospital Cancer JeteUW059(L)22 - 30 mmol/L1 1:42 PM [facility] Cancer CareAnion Gap7 (L)9 - 18 mmol/L1 1:42 PM [facility] Cancer [facility] CYB4502 - 54 U/L1 1:42 PM [facility] Cancer [facility] eGFR- Llpciwus2555/20/2021 1:42 PM [facility] Cancer CareeGFR-All Other Races25.03/23/2021 1:42 PM [facility] Cancer [facility] HospitalComment: eGFR (Estimated GFR) Units of measure: mL/min/1.73 [...] / Volume Collection TimeReceived TimeBloodBLOOD SPECIMEN / Bhqdzxf2103/23/2021 1:05 PM EDT 03/23/2021 1:06 PM EDT Narrative Authorizing ProviderResult TypeResult StatusPaulo Kidd MDLABORATORYFinal ResultPerforming OrganizationAddressCity/State/ZIP CodePhone Number [facility] [address] [place] [address] [facility] Cancer [facility] [address] [place], [place] from Last 3 Months or Most Recently Relevant to Health Maintenance Insurance Advance Directives TypeDate RecordedPatient RepresentativeExplanationAdvance Directive(s)09/10/2009 10:04 PM Care Teams Team MemberRelationshipSpecialtyStart DateEnd Date Gerry Barton DO [address] [place] [address] [facility] - [facility]09/07/09
--- OUTSIDE RECORDS SUMMARY | 2025-04-10 08:54 | XMS_ITS | Encounter Summary ---
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 [address] [place] [address] Dermatopathology exam Social History Tobacco UseTypesPacks/DayYears UsedDateSmoking Tobacco: NeverSmokeless Tobacco: NeverAlcohol UseStandard Drinks/WeekCommentsYes0 (1 standard drink = 0.6 oz pure alcohol)Monthly or lessSex and Gender InformationValueDate RecordedSex Assigned at BirthNot on fileLegal QolZjwc0808/16/2022 7:34 PM EDTGender IdentityNot on file Sexual OrientationNot on filedocumented as of this encounter Plan of Treatment DateTypeDepartmentCare Team (Latest Contact Info)Fznsdtjjvqy77/30/2026 8:35 AM EDTOffice Visit [facility] [address] [place] [address] Melody Manzano, HIGH PRESSURE OPERATOR-ACCOUNT 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
--- OUTSIDE RECORDS SUMMARY | 2025-04-10 08:54 | XMS_ITS | Clinical Summary ---
Author Organization [facility] Address [address] [facility] [address] [place] [address] Care Team Providers Care Day Habilitation Specialist Name Role Phone Unavailable Primary Care Provider Unavailabl e Source Comments The following information is NOT included in Care Everywhere downloads:Psychiatric notes, ECG results, Cardiac Rehab notes, Pulmonary Function notes, data from [employer] (includes but not limited toPregnancy data,audiograms, eye exams, pre-surgical evaluation notes, well-child exam data).[facility] Allergies Active AllergyReactionsCriticalityNoted DateCommentsPiperacillin-Tazobactam In L1cZxtps24/21/2011 Medications No known medications Active Problems ProblemNoted DateDiagnosed DateHemorrhage of gastrointestinal tract, unspecified 11/24/2010 Social History Tobacco UseTypesPacks/DayYears UsedDateSmoking Tobacco: Never AssessedSex and Gender InformationValueDate RecordedSex Assigned at BirthNot on fileLegal Sex Male04/07/2012 1:16 PM ESTGender IdentityNot on fileSexual OrientationNot on file Last Filed Vital Signs Vital SignReadingTime TakenCommentsBlood Phznktba055/7506 11:40 AM EDT Ykpaf005811/24/2010 11:40 AM WLSObfaazyveoo72.8 ??C (98.2 ??F)11/24/2010 11:40 AM EDTRespiratory Yvym08011/24/2010 11:40 AM EDTOxygen Zxznmyoopu75%11/24/2010 11:40 AM EDTInhaled Oxygen Concentration--Tamxqy099.8 kg (242 lb)11/22/2010 8:23 PM AUWFgzpus187 cm (6' 2 )11/22/2010 8:23 PM EDTBody Mass Index31.0711/22/2010 8:23 PM EDT Plan of Treatment Health MaintenanceDue DateLast DoneCommentsHepatitis C Gvyxpuga66/17/1966Tdap Zruigka1206/20/1965Hepatitis A (HAV) Vaccine (optional start 19+ years)1966 Tetanus (Td or Tdap) Yzfcfwf2406/20/1966Pneumococcal Vaccine(s) (50+ yrs) (1 of 1 - PCV)1997Shingles (RZV) Vaccine (1 of 2)1997Hepatitis B (HBV) Vaccine (optional start 60+ years)2007nnual Wellness Visit (G0438) 06/04/2011RSV vaccine (adult) (1 - 1-dose 75+ series)2022OVID-19 Vaccine (1 - 2024-26 season)2025Influenza Vaccine (#1)2025 [place] [address] Advance Directives * Full Code (Latest Code Status on File) Date ActivatedDate InactivatedComments11/22/2010 7:41 PM11/23/2010 7:01 PM
--- OUTSIDE RECORDS SUMMARY | 2025-04-10 08:55 | XMS_ITS | CCD ---
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 Name Role Phone Bernardo Gerry Primary Care [...] ble BALL, DR CONDON Primary Care Unavailable HAYS, DR ALONZO Hernandez Consulting Unavailable BALL, DR [...] DR ALEXX Mann Attending Unavailable OLIVEROS, DR LAEXX Mann Admitting Unavailable OLIVEROS, DR ALEXX Mann [...] Unavailable DO Gerry Chang Primary Care Provider [phone] DO Gerry Nelson Attending Provider [phone] Gerry Chang MD Primary Care Provider Alfreda DOYLE, Destiny Leon Unavailable Gerry Nelson DO Unavailable TIMOTEO DUKES Attending Unavailab TIMOTEO Mendoza Admitting Unavailab Jenaro Arboleda Admitting Unavailable JADE, Jenaro Roberto Attending Unavailable JADE, Jenaro Roberto Attending Unavailable TIMOTEO DUKES Attending Unavailab le Gerry Chang DO Primary Care Provider Jenaro Hansen MD Attending Provider Vaishali Howell MD Attending Provider [phone] Aileen Dukes PA-C Attending Provider Bernardo , Gerry Attending Provider Bernardo TEJADA, Gerry Primary Care Provider Jenaro Hansen MD Attending Provider Bernardo DO, Gerry Primary Care Provider Vaishali Howell MD Attending Provider [phone] JADE, Jenaro R Attending Unavailable JADE, Jenaro R Attending Unavailable GERRY CHANG Referring Unavailable JADE, Jenaro R Attending Unavailable HANSEN, Jenaro R Attending Unavailable HANSEN, Jenaro R Admitting Unavailable JADE, Jenaro R Attending Unavailable Bernardo TEJADA, Gerry Primary Care Provider Lynda DOYLE, Vaishali Attending Provider Bernardo , Gerry Primary Care Provider Bernardo TEJADA, Gerry Attending Provider [phone] Guillermo Masterson DO Attending Provider [phone] Moise Walker MD Admit Provider Arya Peña DO Other Provider Nathan Jones MD Other Provider Damaso Arellano DO Other Provider Bryon Aguilar MD Attending Provider [phone] Guillermo Masterson Attending Unavailable Guillermo Masterson Admitting Unavailable Moise Walker Admitting Unavailable Bryon Aguilar Attending Unavailable Arya Peña Consulting Unavailable Bernardo Gerry Primary [facility] Unavailable Nathan Jones Consulting Unavailable Damaso Arellano Consulting Unavailable Gerry Chang DO E Primary Care Provider Bernardo TEJADA, Gerry Primary Care Provider Bernardo TEJADA, Gerry Attending Provider Cynthia Dasilva CMA Attending Provider UnavailASHLEY Moody Attending Unavailable Allergies Allergy ClassificationReported Allergen(s)Allergy TypeDate of OnsetReaction(s) Facility (20 sources)Ketorolac; Translations: [KETOROLAC]Drug Sjhxazw59-78-9421Xwqukiy, Unknown (qualifier value)[facility] (19 sources)Piperacillin / tazobactam; Translations: [PIPERACILLIN-TAZOBACTAM] Drug Cynspsi74-40-1107Cdho, Eruption of skin (disorder)[facility] (14 sources)Vorinostat; Translations: [vorinostat]Drug Rkqxfuo42-55-1358Xprbclg (qualifier value)[facility] (4 sources)Ketorolac; Translations: [Toradol][facility] AllergyThe [facility] (1 source)Piperacillin / tazobactamDrug Kphkcjb72-53-7984Lwf [facility] (4 sources)tazobactam; Translations: [tazobactam]Drug Dehirqd66-17-2019Qjg [facility] (3 sources)patient allergy list reviewed by nurse or physiciaPropensity to adverse eoavvqqlk35-61-1759Sznapcu:[facility] Other (3 sources)Allergies ReconciledPropensity to adverse reactionsWabash County HospitalCineCoup Other (5 sources)KetorolacAllergy to znddxnivw84-67-9205XwikcivBMIC Healthcare Work Phone: (5 sources)Ketorolac trometamolAllergy to xaoxevzzc69-88-9052FgovzzwUDMV Healthcare (11 sources)PiperacillinDrug Rwbhfsp17-35-4405Dxzncql of SkinNOME Healthcare Comment on above:turned purple (5 sources)Piperacillin / tazobactamDrug Lzggflu72-77-4898HvfmGTJR Healthcare (5 sources)VorinostatDrug Buvspxy05-30-0464HnjovemHBSG Healthcare Work Phone: (5 sources)Piperacillin Sod-Tazobactam SoDrug Oluaanyznpz51-98-9270DbzqxELEA Healthcare (3 sources)tazobactam; Translations: [tazobactam]Drug Gglgsqq30-03-6621Npfcmrx [facility] (1 source)KetorolacDrug Oxnohwd08-64-5170DdnlgbxhlSum[facility] (1 source)PiperacillinDrug Naqrujy12-84-5518UayifmxycSumma [facility] Medications Current Medications MedicationDrug Class(es)DatesSig (Normalized)Sig (Original)Aspir-81 81 MG (14 sources)take 1 tablet by mouth three times weeklyAspir-81 81 MG 1 tablet Orally THREE TIMES A WEEK for 30 day(s) Activeaspirin 81 mg delayed release oral tablet (20 sources)Platelet Aggregation Inhibitor, Nonsteroidal Anti-inflammatory Drug Start: 26-46-4786besf 1 tablet by mouth three times weeklyAspirin 81 mg tablet,delayed release (DR/EC) Active 81 MG PO 3 Times a week July 25, 2023 1:00am Complies with 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Start: 46-29-1542pnvn 81 mg by mouth once dailyaspirin 81 mg, Oral, Daily, Refills(s) 0 Start Date: 11/27/19 Status: Ordered Repeat number: 1Start: 61-87-9530foyywcb Refills(s) 0 Start Date: 11/27/19 Status: Orderedtake [...] tablet (20 sources)HMG-CoA Reductase InhibitorStart: 10-17-2023 End: 68-40-4872dmwz 1 tablet by mouth once daily in the eveningAtorvastatin 10 mg tablet Active 0 .ROUTE .COMPLEX 90 3 October 02, 2024 7:43am TAKE 1 TABLET BY MOUTHEVERY EVENING Complies with 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Start: 11-27-2019 End: 78-65-9612iijy 1 tablet by mouth once daily at bedtimeAtorvastatin 10 mg tablet Discontinued 10 MG PO Daily at bedtime July 25, 2023 1:00am October 17, 2023 1:21pmStart: 48-40-8417npfowthyenar Oral, Daily, Refills(s) 0 Start Date: 11/27/19 Status: OrderedComment on above:Take 10 mg by mouth once daily. benazepril hydrochloride 10 mg oral tablet (5 sources)Angiotensin Converting Enzyme Inhibitortake 1 tablet by mouth in the morningbenazepril (Lotensin) 10 MG tablet Take 10 mg by mouth in the morning. Activecalcitriol 0.33276 mg oral capsule (20 sources)Vitamin D3 AnalogStart: 59-28-7667nmta 1 capsule by mouth three times weeklyCalcitriol 0.25 mcg capsule Active 0.25 MCG PO 3 Times a week January 26, 2025 1:39pm Complies with 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Start: 12-29-2024 End: 50-35-0313Jpypqgynil 0.25 mcg capsule Discontinued 0 .ROUTE .COMPLEX 36 1 December 29, 2024 10:27am January 26, 2025 1:39pm TAKE 1 CAPSLUE 3 TIMES A WEEK. ADMINISTER AFTER DIALYSIS ON DIALYSIS DAYSStart: 10-65-3000htim 1 capsule by mouth once dailycalcitriol 0.25 mcg Cap 0.25 mcg = 1 cap(s), Oral, Daily Start Date: 10/06/24 Status: Ordered Repeat number: 1Start: 07-21-2024 End: 01-98-2858ajju 1 capsule by mouth every weekCalcitriol 0.25 mcg capsule Discontinued 0.25 MCG PO 3 Times a week 40 1 July 21, 2024 1:00amJuly 2024 10:28am administer after dialysis on dialysis dayscalcium carbonate 1500 mg oral tablet (15 sources)Start: 41-04-1178uhzt 1 tablet by mouth once dailycalcium (as carbonate) 600 mg oral tablet 600 mg = 1 tab(s), Oral, Daily Start Date: 10/06/24 Status:Ordered Repeat number: 1Start: 74-35-2299amne 1 tablet by mouth once dailyCalcium Carbonate 600 mg calcium (1,500 mg) tablet Active 600 MG PO Daily May 05, 2024 1:00amComplies with 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carvedilol 6.25 mg oral tablet (20 sources)alpha-Adrenergic Shira, beta-Adrenergic BlockerStart: 01-26-2025 take 1 tablet by mouth twice dailyCarvedilol 6.25 mg tablet Active 6.25 MG PO Twice daily January 26, 2025 1:37pm Complies with drugtherapyStart: 11-15-2023 End: 58-09-5914jchg 1 tablet by mouth twice dailyCarvedilol 6.25 mg tablet Discontinued 0 .ROUTE .COMPLEX 180 October 30, 2024 7:23am January 26, 2025 1:39pm TAKE 1 TABLET BY MOUTH TWICE A DAYStart: 10-07-8407cfwxsvftkj Oral, Refills(s) 0 Start Date: 11/27/19 Status: OrderedStart: 06-15-2014 End: 59-16-7046lcrn 1 tablet by mouth twice dailyCarvedilol 6.25 [...] 100 mg oral capsule (20 sources)Anti-epileptic AgentStart: 37-17-4918owbq 1 capsule by mouth once daily in the eveningGabapentin 100 mg capsule Active 0 .ROUTE .COMPLEX 30 5 February 08, 2025 8:37am TAKE 1 CAPSULE BY MOUTH EVERY EVENING Complies with 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Start: 07-30-2024 End: 80-36-1083knte 1 capsule by mouth once daily in the eveningGabapentin 100 mg capsule Discontinued 100 MG PO Daily 30 30 5 August 28, 2024 5:03pm February 08, 2025 8:37am Take in evening dailyglimepiride 4 mg oral tablet (20 sources)SulfonylureaStart: 23-05-6986ucjb 1 tablet by mouth twice daily Glimepiride 4 mg tablet Active 4 MG PO Twice daily January 26, 2025 1:38pm Complies with 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Start: 11-19-2023 End: 91-44-4805vhgi 2 tablets by mouth once daily in the morningGlimepiride 4 mg tablet Discontinued 0 .ROUTE .COMPLEX 180 3 November 23, 2024 5:12pm January 26, 2025 1:39pm TAKE 2 TABLETS BY MOUTH EVERY MORNING 30 MINUTES PRIOR TO BREAKFAST Start: 67-79-7580qozw 4 mg by mouth once dailyGlimepiride Active 4 MG PO Daily July 25, 2023 12:00amStart: 47-83-9585excdwovgexo Oral, Daily, Refills(s) 0 Start Date: 11/27/19 Status: OrderedStart: 06-19-2012 End: 47-00-2528kkmf 1 tablet by mouth twice dailyGlimepiride 4 mg tablet Discontinued 4 MG PO Twice daily July 25, 2023 1:00am November 19, 2023 12:44pmGlimepiride 4 MG TAKE 2 TABLETS BY MOUTH EVERY MORNING 30 MINUTES PRIOR TO BREAKFAST for 90 ActiveComment on above:Take 4 mg by mouth twice daily with meals.3 ml insulin glargine 100 unt/ml pen injector (15 sources)Insulin AnalogStart: 68-85-3312anjqbh 8 [IU] by subcutaneous injection once dailyBasaglar KwikPen 100 units/mL subcutaneous solution 8 unit(s), SubCutaneous, Daily Start Date: 10/06/24 Status: Ordered Repeat number: 1 Start: 22-02-2454evjnku 8 [IU] by subcutaneous injection once daily [...] 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Levemir FlexPen 100 UNIT/ML (2 sources)Start: 99-31-8292Ipewypp FlexPen 100 UNIT/ML 12 units Subcutaneous Once daily for 90 days Jul, Activelisinopril 2.5 mg oral tablet (20 sources)Angiotensin Converting Enzyme InhibitorStart: 44-08-8222kzfq 1 tablet by mouth once dailyLisinopril 2.5 mg tablet Active 2.5 MG PO Daily January 26, 2025 1:38pm Complies with 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Start: 09-18-2023 End: 13-54-2213wced 1 tablet by mouth once dailyLisinopril 2.5 mg tablet Discontinued 0 .ROUTE .COMPLEX 90 3 September 07, 2024 2:55pm January 26, 2025 1:39pm TAKE 1 TABLET BY MOUTH EVERY DAYStart: 11-27-2019 End: 05-00-7976eboc 1 tablet by mouth once daily at bedtimeLisinopril 2.5 mg tablet Discontinued 2.5 MG PO Daily at bedtime July 25, 2023 1:00am September 18, 2023 1:24pmStart: 84-64-8830barednorlz Oral, Daily, Refills(s) 0 Start Date: 11/27/19 Status: OrderedComment on above:Take 2.5 mg by mouth once daily. Magnesium Aspart,Citrate,Oxide 400 mg magnesium capsule (19 sources)Start: 81-72-2808fyql 1 capsule by mouth once dailyStart: 10-29-2024 take 1 capsule by mouth once dailyMagnesium Aspart,Citrate,Oxide 400 mg magnesium capsule Active 400 MG PO Daily October 29, 2024 9:15am Complies with 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Start: 68-17-6135wwop 1 capsule by mouth once dailyMagnesium Aspart,Citrate,Oxide 400 mg magnesium capsule Active 400 MG PO Daily October 29, 2024 9:15amStart: 07-30-2024 End: 65-32-5765Ihmlxhyfc Aspart,Citrate,Oxide 400 mg magnesium capsule Discontinued MG PO July 30, 2024 1:00am October 29, 2024 9:15amStart: 08-75-3239Esvqgaxpj Aspart,Citrate,Oxide 400 mg magnesium capsule Active MG PO July 30, 2024 12:00ammagnesium oxide 400 mg oral tablet (3 sources)Start: 07-92-7420osaf 1 tablet by mouth once dailymagnesium oxide 400 mg Tab 400 mg = 1 tab(s), Oral, Daily Start Date: 10/06/24 Status: Ordered Repeat number: 1Metformin & Diet Manage Prod 500 MG (11 sources)Metformin & Diet Manage Prod 500 MG as directed Orally TWICE DAILY Activemolnupiravir 200 MG Oral Capsule [Lagevrio] (2 sources)Start: 69-55-9022twzr 4 capsules by mouth every twelve hours Molnupiravir 200 MG 4 capsules Orally every 12 hrs for 5 days Feb, ActiveSITagliptin 25 mg oral tablet (19 sources)Dipeptidyl Peptidase 4 InhibitorStart: 55-09-8224zoff 1 tablet by mouth once dailySitagliptin Phosphate (Januvia) 25 mg tablet Active 0 .ROUTE .COMPLEX 30 February 02, 2025 4:35pm TAKE 1 TABLET BY MOUTH EVERY DAY Complies with 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Start: 07-07-2024 End: 10-63-2332qlmm 1 tablet by mouth once dailySitagliptin Phosphate (Januvia) 25 mg tablet Discontinued 25 MG PO Daily July 07, 33024:00am February 02, 2025 4:35pm Completed/Discontinued Medications MedicationDrug Class(es)DatesSig (Normalized)Sig (Original)B-12 - up to 1000 mcg (20 sources)Start: 11-51-8260W-12 - up to 1000 mcg Jun, 1000 mcgStart: 58-08-2990Z-12 - up to 1000 mcg Mar, 1000 mcgStart: 17-38-0108G-12 - up to 1000 mcg Feb, 1000 mcgStart: 14-98-6684X-12 - up to 1000 mcg Dec, 1000 mcgStart: 51-73-3008O-12 - up to 1000 mcg Nov, 1000 mcgStart: 98-96-0658N-12 - up to 1000 mcg Aug, 1000 mcgStart: 12-99-9700M-12 - up to 1000 mcg Jul, 1000 mcgStart: 11-58-8651X-12 - up to 1000 mcg Jun, 1000 mcgciprofloxacin 500 mg oral tablet (2 sources)Quinolone AntimicrobialStart: 11-77-1814mmsh 1 tablet by mouth once dailyCipro 500 mg Tab 500 mg = 1 tab(s), Oral, Daily, Take 1 tablet the day before the procedure and 1 tablet after the procedure, # 2 tab(s), Refills(s) 0, Pharmacy: [facility]/pharmacy #[id number], 187, cm, 258:21:00 EDT, Height/Length Dosing, 104.3, kg, 10/16/24 8:21:00 EDT, Weight Dosing Start Date: 10/16/24 Status: Ordered Quantity: 2.0 Unit: tab(s) Repeat number: 13 ml insulin detemir 100 unt/ml pen injector (20 sources)Insulin AnalogStart: 08-22-2023 End: 73-91-1543Gpdesyw Detemir U-100 (Levemir Flexpen) 100 unit/mL (3 mL) insulin pen Discontinued 12 UNIT SUBCUT Daily at bedtime August 22, 2023 12:00am March 31, 2024 10:04amStart: 51-26-6068Dhvruzj FlexPen 100 UNIT/ML 12 units Subcutaneous Once daily Jul, ActiveStart: 75-66-8182Djvoqam SubCutaneous, Refills(s) 0 Start Date: 11/27/19 Status: OrderedStart: 09-07-2015 LEVEMIR FLEXTOUCH 100 unit/mL (3 mL) inpn injection 12 Units. 0 09/07/2015 Activeinject 6 [IU] by subcutaneous injection at bedtimeinsulin detemir (Levemir) 100 UNIT/ML injection Inject 6 Units under the skin at bedtime Active Comment on above:12 Units. Insulin Detemir U-100 (Levemir Flexpen) 100 unit/mL (3 mL) insulin pen (12 sources)Start: 08-22-2023 End: 33-26-3783Buxldvo Detemir U-100 (Levemir Flexpen) 100 unit/mL (3 mL) insulin pen Discontinued 12 UNIT SUBCUT Daily at bedtime August 22, 2023 12:00am March 31, 2024 10:04amStart: 08-22-2023 End: 20-39-4153Xxymnyc Detemir U-100 (Levemir Flexpen) 100 unit/mL (3 mL) insulin pen Discontinued 12 UNIT SUBCUT Daily at bedtime August 21, 2023 11:00pm March 31, 2024 9:04amStart: 83-47-8707Wmfolik Detemir U-100 (Levemir Flexpen) 100 unit/mL (3 mL) insulin pen Active 12 UNIT SUBCUT Daily at bedtime August 22, 2023 12:00amStart: 52-73-2269euvwgv 10 [IU] by subcutaneous injection once daily at bedtimeInsulin Detemir U-100 (Levemir Flexpen) 100 unit/mL (3 mL) insulin pen Active 10 UNIT SUBCUT Daily at bedtime August 22, 2023 12:00amlinagliptin 5 mg oral tablet (20 sources)Dipeptidyl Peptidase 4 InhibitorStart: 07-21-2024 End: 96-84-7523woix 1 tablet by mouth once dailyLinagliptin (Tradjenta) 5 mg tablet Discontinued 5 MG PO Daily July 21, 2024 1:00am July 27, 2024 4:40pmStart: 02-28-2024 End: 84-82-4746vuec 1 tablet by mouth once dailyLinagliptin (Tradjenta) 5 mg tablet Discontinued 0 .ROUTE .COMPLEX 30 11 March 11, 2024 5:20pm July 07, 2024 10:21am TAKE 1 TABLET BY MOUTH EVERY DAYStart: 40-54-0347jsyq 1 mg by mouth once dailyTradjenta mg, Oral, Daily, Refills(s) 0 Start Date: 11/27/19 Status: OrderedStart: 06-15-2013 End: 84-25-3540nhgq 1 tablet by mouth once daily in the morningLinagliptin (Tradjenta) 5 mg tablet Discontinued 5 MG PO Every morning July 25, 2023 1:00am February 28, 2024 2:23pmComment on above:5 mg once daily.traMADol hydrochloride 50 mg oral tablet (20 sources)Opioid AgonistStart: 11-22-2023 End: 09-80-6006attf 1 tablet by mouth twice dailyTramadol 50 mg tablet Discontinued 50 MG PO Twice daily 28 14 0 November 23, 2023 4:25pm May 05, 2024 3:51pm Herpes zoster Zoster with other complicationsStart: 11-15-2023 End: 57-38-4021fhsu 1 tablet by mouth once daily at [...] Nucleoside Analog DNA Polymerase InhibitorStart: 11-02-2023 End: 42-07-9011Klattcwncnql 1 gram tablet Discontinued 1000 MG PO Three times daily 21 7 0 November 02, 2023 12:00am November 28, 2023 8:54amStart: 11-02-2023 End: 24-04-1217qurn 1000 mg by mouth three times dailyValacyclovir Discontinued 1000 MG PO Three times daily 21 7 November 02, 2023 12:00am November 28, 2023 8:54am Problems Active Problems Problem ClassificationProblemDateDocumented DateEpisodic/ChronicAcquired foot deformities (13 sources)Acquired hammer toe of left foot; Translations: [Other hammer toe(s) (acquired), left foot]Onset: 830058-71-2440ElwsoqtBgjus bronchitis (4 sources)Acute bronchitis; Translations: [Acute bronchitis, unspecified]Onset: 10-79-3583PxtvyxjmQtljhju disorders (6 sources)Posttraumatic stress disorder; Translations: [Posttraumatic stress disorder]Onset: 33-58-3667HzhciatVsixftax of urinary tract (5 sources)Kidney stone; Translations: [Calculus of kidney]Onset: 04-14-2024 EpisodicChronic kidney disease (20 sources)Chronic kidney disease, unspecified; Translations: [Chronic kidney disease stage 3]Onset: 533097-90-9753UkkgxmcOpoxbfx ulcer of skin (17 sources)Non-pressure chronic ulcer of unspecified part of right lower leg limited to breakdown of skin; Translations: [Chronic ulcer of foot]Onset: 09-09-2018 Resolved: 431666-32-3876VjjebcuBgmpkuyjlle and hemorrhagic disorders (12 sources)Blood coagulation disorder; Translations: [Thrombocytopenic disorder]53-15-7554MfvkvyaRruzitmvjfap of device; implant or graft (4 sources)Other specified complication of vascular prosthetic devices, implants and grafts, initial encounter; Translations: [OTH COMP VASC PROSTH DEV GRAFT INIT]Onset: 91-39-4175EyoznxgCxyhwbgtnh and other anemia (9 sources)Acquired pancytopenia; Translations: [Other drug-induced pancytopenia]Onset: 298267-19-7585HvrfbuvUblvonmcoq and other anemia (20 sources)Pernicious anemia; Translations: [Vitamin B12 deficiency anemia due to intrinsic factor deficiency]Onset: 09-05-2023 Resolved: 191091-04-9117VztyoplsTouddtoubj and other anemia (19 sources)Vitamin B12 deficiency anemia due to intrinsic factor deficiency; Translations: [Pernicious anemia]EpisodicDeficiency and other anemia (5 sources)Anemia; Translations: [Anemia, unspecified] Resolved: 382369-64-2850TvqgmbtdIknlrbbi mellitus with complications (20 sources)Type 2 diabetes mellitus with diabetic chronic kidney disease; Translations: [Hyperglycemia due to type 2 diabetes mellitus]Onset: 06-26-2016 ChronicDiabetes mellitus without complication (20 sources)Diabetes mellitus; Translations: [Type 2 diabetes mellitus without complications]Onset: 841912-21-9894XweosruFjiincpj of white blood cells (16 sources)Neutropenia; Translations: [Neutropenia, unspecified]Onset: 262199-61-9576GmuahmrNjxugthhs of lipid metabolism (20 sources)Mixed hyperlipidemia; Translations: [Hyperlipidemia, unspecified] Onset: 11-23-2021 Resolved: 85-10-7909CdhbqaxDzbbvrgof hypertension (20 sources)Essential (primary) hypertension; Translations: [Essential hypertension]Onset: 11-23-2021 Resolved: 92-44-1461VirccfkMxtjp and electrolyte disorders (17 sources)Hyperkalemia; Translations: [Hyperkalemia]23-76-3978Vmmkbfuo Genitourinary symptoms and ill-defined conditions (20 sources)Proteinuria; Translations: [Asymptomatic microscopic hematuria] Onset: 041574-50-3194SztsvlqvTrmvtlmrgyr of prostate (20 sources)Benign prostatic hyperplasia; Translations: [Benign prostatic hyperplasia without lower urinary tract symptoms]Onset: 99-07-6381Xhnrnov Hypertension with complications and secondary hypertension (20 sources)Hypertensive chronic kidney disease with stage 1 through stage 4 chronic kidney disease, or unspecified chronic kidney disease; Translations: [Chronic kidney disease due to hypertension]Onset: 032172-76-2767Rpdaiqf Immunizations and screening for infectious disease (3 sources)Vaccination given; Translations: [Encounter for immunization]Episodic Intestinal obstruction without hernia (19 sources)Intestinal adhesions [bands], unspecified as to partial versus complete obstruction; Translations: [Intestinal adhesions [bands], with partial obstruction]Onset: 527779-48-5775LjjfqlxoYrsoul and vomiting (9 sources)Nausea and vomiting; Translations: [Nausea & vomiting]Episodic Neoplasms of unspecified nature or uncertain behavior (4 sources)Neoplasm of uncertain behavior of skin; Translations: [Neoplasm of uncertain behavior of skin]Onset: 857885-79-6590HlhsvgitJpkjaipvy; nephrosis; renal sclerosis (1 source)Atrophy of kidney; 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)]Onset: 27-26-9453FbnmgkuXdt-Hodgkin`s lymphoma (20 sources)Non-Hodgkin's lymphoma (clinical); Translations: [Non-Hodgkin lymphoma, unspecified, unspecified site]Onset: 64-99-4677RqvaptaFlgfghdzqfpdas (16 sources)Arthritis; Translations: [Osteoarthritis]Onset: ChronicOther aftercare (5 sources)Encounter for adjustment and management of vascular access device; Translations: [ENC ADJUSTMENT AND MANAGEMENT VAD]Onset: 10-84-7740IrukqaxyMrtmv aftercare (2 sources)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; Translations: [OTH FISHER PURSE SEINE CURRENT DRUG THERAPY]Onset: 79-48-5429DsgdglgtIilwn aftercare (3 sources)Long-term current use of 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; Translations: [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]EpisodicOther aftercare (4 sources)H/O: high risk medication; Translations: [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]EpisodicOther and unspecified benign neoplasm (3 sources)Melanocytic nevus of right upper limb; Translations: [Melanocytic nevi of right upper limb, including shoulder]85-17-8295OlnvathaMvzpg and unspecified benign neoplasm (3 sources)Melanocytic nevus of left upper limb; Translations: [Melanocytic nevi of left upper limb, includingshoulder]26-09-3022FimjthioGwvdd circulatory disease (3 sources)Spider nevus; Translations: [Nevus, non-neoplastic]59-15-4007Oeqdjlbd Other connective tissue disease (1 source)Presence of unspecified orthopedic joint implant; Translations: [Presence of unspecified orthopedicjoint implant]ChronicOther connective tissue disease (5 sources)Artificial knee joint present; Translations: [Presence of artificial knee joint, bilateral]Onset: 165092-70-9263WqibdfuFbgsy connective tissue disease (3 sources)H/O: musculoskeletal disease; Translations: [Personal history of other diseases of the musculoskeletal system and connective tissue]EpisodicOther connective tissue disease (5 sources)History of osteomyelitis; Translations: [Personal history of other diseases of the musculoskeletal system and connective tissue]EpisodicOther diseases of kidney and ureters (20 sources)Secondary hyperparathyroidism; Translations: [Secondary hyperparathyroidism of renal origin]27-38-8355NowmjyqKiqrh diseases of kidney and ureters (6 sources)Secondary hyperparathyroidism of renal origin; Translations: [Secondary hyperparathyroidism (of renal origin)]34-76-1423RxnwpnxLyzks diseases of kidney and ureters (3 sources)Disorder of kidney and/or ureter; Translations: [Disorder of kidney and ureter, unspecified]EpisodicOther diseases of kidney and ureters (1 source)Acquired renal cyst without neoplastic change; Translations: [Cyst of kidney, acquired]Onset: 89-48-1801VpvljaafXkuvd diseases of kidney and ureters (4 sources)Cyst of eleiyx93-38-0251ZfhfbyvxYnrbc diseases of kidney and ureters (13 sources)Acquired renal cystic disease; Translations: [Cyst of kidney, acquired]16-42-8200VzictdbnXmzdnqz on above:CT: 5.8cm renal cyst - 10/2024Other diseases of veins and lymphatics (3 sources)Venous ulcer of lower extremity due to chronic peripheral venous hypertension; Translations: [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]ChronicOther diseases of veins and lymphatics (20 sources)Peripheral venous insufficiency; Translations: [Venous insufficiency (chronic) (peripheral)]Onset: 09-05-2023 Resolved: 963800-36-4665HkxzjqqkZasnd diseases of veins and lymphatics (12 sources)Venous insufficiency (chronic) (peripheral); Translations: [Venous (peripheral) insufficiency, unspecified]EpisodicOther injuries and conditions due to external causes (3 sources)History of fall; Translations: [History of falling]EpisodicOther nervous system disorders (5 sources)Chronic pain; Translations: [Other chronic pain]Onset: 08-22-2023 80-36-3586YeagnrjUdsup non-epithelial cancer of skin (20 sources)Basal cell carcinoma of skin of other part of trunk; Translations: [Carcinoma in situ of skin of scalp and neck]Onset: 996397-02-4189Shaztjss Other non-traumatic joint disorders (4 sources)Charcot's joint, left ankle and foot; Translations: [CHARCOTS JOINT LEFT ANKLE AND FO]Onset: 71-77-8555VledbdjQtewj non-traumatic joint disorders (11 sources)Arthropathy associated with a neurological disorder; Translations: [Charcot's joint, unspecified ankle and foot]ChronicOther non-traumatic joint disorders (5 sources)Joint ankylosis of the shoulder region; Translations: [Ankylosis, right shoulder]Onset: 219313-41-7812VwrqhwaRdnph nutritional; endocrine; and metabolic disorders (3 sources)Obese class I; Translations: [Body mass index 33.0-33.9, adult]Onset: 46-59-3252EnrtlxpBtveo nutritional; endocrine; and metabolic disorders (3 sources)Simple obesity ; Translations: [Other obesity due to excess calories] Onset: 81-80-4119XihojiwFhphb nutritional; endocrine; and metabolic disorders (20 sources)Obesity; Translations: [Obesity, unspecified]35-09-3268SycgewySfytz nutritional; endocrine; and metabolic disorders (1 source)Other obesity due to excess caloriesChronicOther nutritional; endocrine; and metabolic disorders (1 source)Body mass index (BMI) 30.0-30.9, adultChronicOther nutritional; endocrine; and metabolic disorders (3 sources)Obesity, unspecified; Translations: [Obesity, unspecified]03-31-2024 ChronicOther nutritional; endocrine; and metabolic disorders (20 sources)Hypomagnesemia; Translations: [Hypomagnesemia]49-72-2437OftcehnRrxzv nutritional; endocrine; and metabolic disorders (3 sources)Hypomagnesemia; Translations: [Disorders of magnesium metabolism] 47-12-0362AubfkymMrseu screening for suspected conditions (not mental disorders or infectious disease) (20 sources)Raised prostate specific antigen; Translations: [Elevated prostate specific antigen [PSA]]Onset: 65-12-0236OccqaihfBwfiubz on above:PSA: 2.93 - 02/2022, 2.64 - 03/2023, .63- SA: 2.93 - 02/2022, 2.64 - 03/2023, .63- 03/2024, 3.51 - 09/2024PSA: 2.93 - 02/2022, 2.64 - 03/2023, .63- 03/2024, 3.01 - 09/2024Other skin disorders (5 sources)Localized swelling, mass and lump, trunk; Translations: [LOCALIZD SWELLING MASS AND LUMP TRUNK]Onset: 87-96-3683EwgukcttEucuf skin disorders (3 sources)Localized swelling, mass and lump, trunk; Translations: [Localized swelling, mass and lump, trunk]EpisodicOther skin disorders (4 sources)Chest swelling; Translations: [Localized swelling, mass and lump, trunk]EpisodicOther skin disorders (3 sources)Seborrheic keratosis; Translations: [Other seborrheic keratosis] 88-23-8968HgftuigmFcqdb skin disorders (3 sources)Actinic keratosis; Translations: [Actinic keratosis]03-21-2024 EpisodicOther skin disorders (1 source)Lentiginosis; Translations: [Other melanin hyperpigmentation] 22-15-5256YapmqmftHyczdshkgp and visceral atherosclerosis (3 sources)Atherosclerosis of [place] arteries of the extremities; Translations: [Atherosclerosis of [place] arteries of the extremities, unspecified]Chronic Residual codes; unclassified (1 source)Other transplanted organ and tissue status; Translations: [[facility] TRANSPLANTED ORGAN AND TISSUE STS]Onset: 18-12-6323NukmlxdYdpnplvz codes; unclassified (1 source)Bone marrow transplant status; Translations: [BONE MARROW TRANSPLANT STATUS]Onset: 51-01-5497VmeqguoJyehufak codes; unclassified (3 sources)Preventive procedure; Translations: [Encounter for other specified prophylactic measures]EpisodicUnclassified (5 sources)Asymptomatic microscopic qichvmqoi41-75-8833Kortwpcbnsym (3 sources)Long-term current use of 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; Translations: [Long-term (current) use of other medications]Onset: 99-24-9394Ohmcarafkwui (4 sources)Atrophy of left nceuei32-84-1034Mwlswmgubzga (4 sources)Post discharge follow upUrinary tract infections (7 sources)Urinary tract infectious disease; Translations: [Urinary tract infection, site not specified]Onset: 192323-35-7141XakhoxpxQgmxa infection (20 sources)Herpes zoster; Translations: [Zoster without complications] 70-36-9347Piwdqwjt Past or Other Problems Problem ClassificationProblemDateDocumented DateEpisodic/ChronicAcquired foot deformities (8 sources)Talipes planus; Translations: [Flat 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), left foot]Onset: 190507-49-7636KbpadeyqFzqjkslevee and hemorrhagic disorders (5 sources)Blood coagulation disorder; Translations: [Hemorrhagic condition, unspecified]Onset: 945620-54-1410SyoforrxMyneenudlqmd of device; implant or graft (11 sources)Blocked central line; Translations: [Other mechanical complication of infusion catheter, initial encounter]Onset: 77-84-6698JmtglqdgIvrmpavr mellitus without complication (10 sources)Glycosuria; Translations: [Glycosuria]Onset: EpisodicFever of unknown origin (9 sources)Fever; Translations: [Fever, unspecified]Onset: EpisodicGastrointestinal hemorrhage (5 sources)Gastrointestinal hemorrhage; Translations: [Gastrointestinal hemorrhage, unspecified]Onset: 734266-85-8370OhyiwdkfHqr-Pllznlt`s lymphoma (4 sources)Personal history of non-Hodgkin lymphomas; Translations: [History of malignant lymphoma]Onset: 07-09-7241ZkebvoslVvjy wounds of head; neck; and trunk (3 sources)Laceration with foreign body of scalp, subsequent encounter; Translations: [Laceration with foreignbody of scalp, subsequent encounter]Onset: 00-23-7705UyxyfyceAwkri aftercare (1 source)intermediate (current) use of oral hypoglycemic drugs; Translations: [FISHER PURSE SEINE USE ORAL HYPOGLYCEMIC DX]Onset: 07-39-4828YtticotxStnrl connective tissue disease (3 sources)Pain in left foot; Translations: [Pain in left foot] Resolved: 21-63-4901CtmvasjpRiulm connective tissue disease (3 sources)Tear of right rotator cuff; Translations: [Unspecified rotator cuff tear or rupture of right shoulder, not specified as traumatic]Onset: 02-20-2017 EpisodicOther eye disorders (3 sources)Vitreous degeneration; Translations: [Vitreous degeneration, unspecified eye] Resolved: 47-22-8435TawccobBpxaa non-traumatic joint disorders (3 sources)Arthralgia of the ankle and/or foot; Translations: [Pain in left ankle and joints of left foot] Resolved: 74-84-2209ZdffykzjKsuej non-traumatic joint disorders (3 sources)Shoulder joint pain; Translations: [Pain in joint, shoulder region] Onset: 98-97-1787TjrdiselJewks non-traumatic joint disorders (5 sources)Pain in right shoulder; Translations: [Pain in joint, shoulder region]Onset: 400812-36-0115BswgfgvaJyvgc nutritional; endocrine; and metabolic disorders (20 sources)Body mass index 30+ - obesity; Translations: [Body mass index 30.0- 30.9, adult]Onset: 06-04-1957 Resolved: 323455-56-8979NftvyamIsttq nutritional; endocrine; and metabolic disorders (16 sources)Obesity caused by energy imbalance; Translations: [Other obesity due to excess calories]Onset: 09-05-2023 Resolved: 201994-69-6194EnscazeRgiwr skin disorders (3 sources)Disorder of the skin and subcutaneous tissue, unspecified; Translations: [DISORDER SKIN AND SUBQ TISSUE UNS]Onset: 83-20-2424PwtefzgiJtdtp upper respiratory infections (3 sources)Acute sinusitis; Translations: [Acute sinusitis, unspecified]Onset: 56-40-9621YtrmvqgvUcvlwzul codes; unclassified (1 source)Acquired absence of other specified parts of digestive tract; Translations: [ACQ ABSENCE OTH PART DIGESTV TRACT]Onset: 73-75-1198DxxehyknMwlez infection (5 sources)COVID-19; Translations: [COVID-19]Onset: 05-17-2022 Results Test NameValueInterpretationReference RangeFacilityCryotherapy, skin lesionon 64-71-2471RILS HealthcareLesion biopsyon 47-52-5933Abrc of biopsy: tangential Informed consent: discussed and [...] Photo taken [facility]oc[facility]: [facility].5 [facility]Type [facility] Informed consent: discussed and [...] Photo taken Amount of lidocaine used: 0.3 [facility] HospitalBasic Metabolic Panelon 12-59-0101Bmptlgzuez Clr Calc Cufzwcqd13.06NormKindred Hospital Bay Area-St. Petersburg Physician GroupComment on above:Result Comment: PERFORMED BY: [place] [address] PATHOLOGIST CHEMICAL ETCHING PROCESSOR HERMILO FOLEY M.D.Performed By: #### CUU #### [place] [address] USAGFR/1.73 sq M.predicted MDRD (S/P/Bld) [Vol rate/Area] 21.338 mL/min/{1.73_m2}NormalThe [facility] Physician GroupComment on above: Performed By: #### CUU #### [place] [id number] USABasophils [#/volume] in Blood by Automated countOrdered By: Moise Walker on 09-38-9320Wcyytfwcu (Bld) [#/Vol]0.0 10*3/uL0.0-0.2 [facility] CampusComment on above:Result Comment: PERFORMED BY: [address] [place] [address] PATHOLOGIST CHEMICAL ETCHING PROCESSOR HERMILO FOLEY M.D.Performed By: #### CUU #### [facility] [address] [place] [address] USABasophils/100 leukocytes in Blood by Automated count Ordered By: Moise Walker on 85-48-9267Azzujcdrn/100 WBC (Bld)0.2 %. [facility] CampusComment on above:Performed By: #### CUU #### [facility] [address] [place] [address] USACalcium [Mass/volume] in Serum or PlasmaOrdered By: Moise Walker on 46-45-8166Mhstbrn [Mass/Vol]8.3 mg/dLLow8.6-10.3FMercy Health Springfield Regional Medical CenterComment on above:Performed By: #### CUU #### [place] [address] USACapillary blood glucose measurement by glucometer (mass/volume)Ordered By: Bryon Aguilar on 75-03-2462Dtrurxi [Mass/Vol]217 mg/dL [facility] CampusComment on above:Random Glucose Reference Range is dependent [...] the diagnosis of Diabetes Mellitus. PERFORMED BY: [address] [place] [address] PATHOLOGIST CHEMICAL ETCHING PROCESSOR HERMILO FOLEY M.D.Performed By: #### GLULS #### Point of Care testing ,Carbon dioxide, total [Moles/volume] in Serum or PlasmaOrdered By: Moise Walker on 50-68-2089SC8 [Moles/Vol]26.4 mmol/L21.0-31.0[facility] CampusComment on above:Performed By: #### CUU #### [place] [address] USAChloride [Moles/volume] in Serum or PlasmaOrdered By: Moise Walker on 93-69-2883Tcsyxaae [Moles/Vol]105 mmol/V65-125DswztepwgSumma Health Barberton CampusComment on above:Performed By: #### CUU #### [place] [address] USAComplete Blood Count Auto Diffon 84-92-0732Zxhi Corpuscular HGB Conc35.0 g/hSKupwgo68.5-35.6The [facility] Physician GroupComment on above:Performed By: #### CUU #### [place] [address] USANRBC%0.1 /100{WBC}Normal0-0.5The [facility] Comment on above:Performed By: #### CUU #### [place] [address] USAWhite Blood Count7.1 [CFU]/mLNormal4.1-10.5The [facility] Physician GroupComment on above:Performed By: #### CUU #### [place] [address] USACreatinine [Mass/volume] in Serum or PlasmaOrdered By: Moise Walker on 41-79-5242Pqvpfleiac [Mass/Vol]2.93 mg/dLHigh0.70-1.30 [facility] CampusComment on above:Performed By: #### CUU #### [place] [address] USAEosinophils [#/volume] in Blood by Automated countOrdered By: Moise Walker on 82-32-5441Xrdbyadgqdz (Bld) [#/Vol]0.1 10*3/uL0.0-0.45 [facility] CampusComment on above:Performed By: #### CUU #### [place] [address] USAEosinophils/100 leukocytes in Blood by Automated count Ordered By: Moise Walker on 44-40-1264Iakvsonyufq/100 WBC (Bld)1.8 %. [facility] CampusComment on above:Performed By: #### CUU #### [place] [address] USAErythrocyte distribution width [Ratio] by Automated count Ordered By: Moise Walker on 70-03-0939Hydzrppaesm distribution width (RBC) [Ratio]12.8 %12.0-14.8[facility] CampusComment on above: Performed By: #### CUU #### [place] [address] USAErythrocytes [#/volume] in Blood by Automated countOrdered By: Moise Walker on 86-41-3197IVM (Bld) [#/Vol]3.54 10*6/uLLow3.90-5.60 [facility] CampusComment on above:Performed By: #### CUU #### [place] [address] USAGlomerular filtration rate [Volume Rate/Area] in Serum, Plasma or Blood by CreatinineOrdered By: Moise Walker on 03-25-2025 Glomerular filtration rate [Volume Rate/Area] in Serum, Plasma or Blood by Cbqrgpcuzj68.338 mL/MinSumma Health Barberton CampusGlucose Poct Glucometers on 10-70-0189Ksfiozm [Mass/Vol]118 mg/dLNoUNC Health Physician Group Comment on above:Result Comment: Random Glucose Reference Range is dependent on time and content of last meal. Glucose of more than 200 mg/dL in a nonstressed, ambulatory subject supports the diagnosis of Diabetes Mellitus. PERFORMED BY: [place] [address] PATHOLOGIST CHEMICAL ETCHING PROCESSOR HERMILO FOLEY M.D.Performed By: #### CUU #### [facility] [address] [place] [address] USAGlucose [Mass/Vol]142 mg/dLNoUNC Health Physician GroupComment on above:Result Comment: Random Glucose Reference Range is dependent on time and content of last meal. Glucose of more than 200 mg/dL in a nonstressed, ambulatory subject supports the diagnosis of Diabetes Mellitus. PERFORMED BY: [place] [address] PATHOLOGIST CHEMICAL ETCHING PROCESSOR HERMILO FOLEY M.D.Performed By: #### GLULS #### Point of Care testing ,Glucose [Mass/volume] in Serum or PlasmaOrdered By: Moise Walker on 87-05-4139Yuckelj [Mass/Vol]116 mg/pTNqhj30-125HeryibcjwSumma Health Barberton Campus Comment on above:Delta: 216 on 03/24/25-0510ADA recommended [...] recommended reference rangePerformed By: #### CUU #### [place] [address] USAHematocrit [Volume Fraction] of Blood by Automated count Ordered By: Moise Walker on 26-74-4473Stzvdixixf (Bld) [Volume fraction] 33.7 %Low38.8-50.0[facility] CampusComment on above:Performed By: #### CUU #### [place] [address] USAHemoglobin [Mass/volume] in BloodOrdered By: Moise Walker on 52-59-0309Aostsksoyb (Bld) [Mass/Vol]11.8 g/dLLow13.0-17.0 [facility] CampusComment on above:Performed By: #### CUU #### [place] [address] USALeukocytes [#/volume] corrected for nucleated erythrocytes in Blood by Automated counOrdered By: Moise Walker on 42-23-5484LIU corrected for nucl RBC Auto (Bld) [#/Vol]7.1 10*3/uL4.1-10.5FMercy Health Springfield Regional Medical CenterLeukocytes [#/volume] in Blood by Automated countOrdered By: Moise Walker on 16-72-2911JRI (Bld) [#/Vol]7.1 10*3/uL4.1-10.5FMercy Health Springfield Regional Medical CenterComment on above:Performed By: #### CUU #### [facility] [address] [place] [address] USALymphocytes [#/volume] in Blood by Automated countOrdered By: Moise Walker on 00-68-0438Eclcetewbjx (Bld) [#/Vol]0.9 10*3/uLLow 1.00-4.8[facility] CampusComment on above:Performed By: #### CUU #### [facility] [address] [place] [address] USALymphocytes/100 leukocytes in Blood by Automated count Ordered By: Moise Walker on 83-22-0629Uxuobteteaq/100 WBC (Bld)12.4 %. [facility] CampusComment on above:Performed By: #### CUU #### [facility] [address] [Entitic mass] by Automated countOrdered By: Moise Walker on 16-50-7905WTL (RBC) [Entitic mass]33.3 pg27.5-35.2FMercy Health Springfield Regional Medical CenterComment on above:Performed By: #### CUU #### [facility] [address] Auto (RBC) [Mass/Vol]Ordered By: Moise Walker on 54-27-5070VTHY (RBC) [Mass/Vol]35.0 g/dL32.5-35.6FMercy Health Springfield Regional Medical CenterMCV [Entitic volume] by Automated countOrdered By: Moise Walker on 60-99-4924PXM (RBC) [Entitic vol]95.0 fL83.5-101[facility] CampusComment on above:Performed By: #### CUU #### [facility] [address] [place] [address] USAMonocytes [#/volume] in Blood by Automated countOrdered By: Moise Walker on 63-05-1436Grfyyxetd (Bld) [#/Vol]0.6 10*3/uL0.0-0.8 [facility] CampusComment on above:Performed By: #### CUU #### [place] [address] USAMonocytes/100 leukocytes in Blood by Automated count Ordered By: Moise Walker on 99-25-1570Cseyaassm/100 WBC (Bld)9.0 %. [facility] CampusComment on above:Performed By: #### CUU #### [place] [address] USANeutrophils [#/volume] in Blood by Automated countOrdered By: Moise Walker on 58-83-3318Yzbsxpvcjda (Bld) [#/Vol]5.5 10*3/uL1.8-7.7 [facility] CampusComment on above:Performed By: #### CUU #### [place] [address] USANeutrophils/100 leukocytes in Blood by Automated count Ordered By: Moise Walker on 95-45-2741Hqmahlmyizi/100 WBC (Bld)76.6 %. [facility] CampusComment on above:Performed By: #### CUU #### [place] [address] USANo Panel InformationOrdered By: Moise Walker on 24-30-5002Npegmqoa Creatinine Clearance (Chem27.06[facility] CampusNucleated erythrocytes [Presence] in Blood by Automated countOrdered By: Moise Walker on 17-18-8254Qvnoxtekr RBC Auto Ql (Bld)0.1 /100{WBC}0-0.5 [facility] CampusPlatelet mean volume [Entitic volume] in Blood by Automated countOrdered By: Moise Walker on 07-45-7169Mqhqvlxt mean volume (Bld) [Entitic vol]7.1 fL6.6-10.1FMercy Health Springfield Regional Medical CenterComment on above:Performed By: #### CUU #### [facility] [address] [place] [address] USAPlatelets [#/volume] in Blood by Automated countOrdered By: Moise Walker on 08-93-1572Hqmiafoai (Bld) [#/Vol]150 10*3/bI480-803 [facility] CampusComment on above:Performed By: #### CUU #### [place] [address] USAPotassium [Moles/volume] in Serum or PlasmaOrdered By: Moise Walker on 81-26-7812Vlhbdbxwv [Moles/Vol]4.5 mmol/L3.5-5.1FMercy Health Springfield Regional Medical CenterComment on above:Performed By: #### CUU #### [facility] [address] [place] [address] USASerum or plasma anion gap determinationOrdered By: Moise Walker on 61-02-5631Dkare gap [Moles/Vol]10.1 mmol/L6.0-15.0[facility] CampusComment on above:Performed By: #### CUU #### [facility] [address] [place] [address] USASodium [Moles/volume] in Serum or PlasmaOrdered By: Moise Walker on 42-49-9915Lmagwt [Moles/Vol]137 mmol/R867-834ZirzjbuzpSumma Health Barberton CampusComment on above:Performed By: #### CUU #### [facility] [address] [place] [address] USAUrea nitrogen [Mass/volume] in Serum or PlasmaOrdered By: Moise Walker on 58-71-2460Aqwp nitrogen [Mass/Vol]39 mg/dLHigh7-25Firelands Regional Medical CenterComment on above:Performed By: #### CUU #### [place] [id number] USAX-ray reportOrdered By: Guillermo Salazar on 70-00-7213Njwkc reportUNIVERSITY HOSPITALS [place] [address] XRay Report Signed Patient: Eugenio Crews MR#: [id number] : 1945 Acct:[id number] Age/Sex: 79 / M ADM Date: 5 Loc: 4N Room: [address] [place] [address] Type: ADM IN Attending Dr: Bryon Aguilar [...] Salazar M.D. 03/25/2025 8:46 AM Dictation Location: [place] [address] Transcribed By: [facility] 03/25/2546 Dictated By: Guillermo Salazar DO 03/25/25 0845 Signed By: 03/25/25 0846 [facility] CampusXR abdomen min 2Von 11-35-0084AI abdomen min 2V [facility] [place] [address] [place], [place] [address] XRay Report Signed Patient: Eugenio Crews MR#: [id number] : 1945 Acct:[id number] Age/Sex: 79 / M ADM Date: 03/24/25 Loc: 4N Room: [address] [place] [address] Type: ADM IN Attending Dr: Bryon Aguilar [...] Salazar M.D. 03/25/2025 8:46 AM Dictation Location: [facility]--16 Transcribed By: [facility] 03/25/2546 Dictated By: Guillermo Salazar DO 03/25/2545 Signed By: 03/25/2546[facility] Physician GroupBasic Metabolic Panelon 49-14-1993Rnzlrajbmr Clr Calc Reylqamy42.37NoUNC Health [facility] Comment on above:Result Comment: PERFORMED BY: [place] [address] PATHOLOGIST CHEMICAL ETCHING PROCESSOR HERMILO FOLEY M.D.Performed By: #### BMP #### [facility] [address] [place] [address] USAGFR/1.73 sq M.predicted MDRD (S/P/Bld) [Vol rate/Area] 17.912 mL/min/{1.73_m2}NormalThe [facility] Physician GroupComment on above: Performed By: #### BMP #### [facility] [address] [place] [address] USACalcium [Mass/volume] in Serum or PlasmaOrdered By: Moise Walker on 80-30-0031Vdlpmrp [Mass/Vol]8.3 mg/dLLow8.6-10.3FMercy Health Springfield Regional Medical CenterComment on above:Performed By: #### BMP #### [facility] [address] [place], [place] [address] USACapillary blood glucose measurement by glucometer (mass/volume)Ordered By: Bryon Aguilar on 24-44-4353Nuutjtg [Mass/Vol]204 mg/dL NormalSumma Health Barberton CampusComment on above:Random Glucose Reference Range is dependent [...] the diagnosis of Diabetes Mellitus. PERFORMED BY: [place] [address] PATHOLOGIST CHEMICAL ETCHING PROCESSOR HERMILO FOLEY M.D.Performed By: #### GLULS #### Point of Care testing ,Carbon dioxide, total [Moles/volume] in Serum or PlasmaOrdered By: Moise Walker on 54-70-4472BZ7 [Moles/Vol]22.2 mmol/UHdfwnp40.0-31.0[facility] CampusComment on above:Performed By: #### BMP #### [facility] [address] [place] [address] USAChloride [Moles/volume] in Serum or PlasmaOrdered By: Moise Walker on 89-49-3648Htkrqccy [Moles/Vol]105 mmol/ZKjvhsu68-982 [facility] CampusComment on above:Performed By: #### BMP #### [facility] [address] [place], [place] [address] USACreatinine [Mass/volume] in Serum or PlasmaOrdered By: Moise Walker on 72-31-5537Hnyvmrwofn [Mass/Vol]3.39 mg/dLHigh0.70-1.30 [facility] CampusComment on above:Performed By: #### BMP #### [facility] [address] [place] [address] USAGlomerular filtration rate [Volume Rate/Area] in Serum, Plasma or Blood by CreatinineOrdered By: Moise Walker on 03-24-2025 Glomerular filtration rate [Volume Rate/Area] in Serum, Plasma or Blood by Vifeimjvzg20.912 mL/MinSumma Health Barberton CampusGlucose Poct Glucometers on 84-16-5155Kctpjdn [Mass/Vol]157 mg/dLHCA Florida Highlands Hospital Physician Group Comment on above:Result Comment: Random Glucose Reference Range is dependent on time and content of last meal. Glucose of more than 200 mg/dL in a nonstressed, ambulatory subject supports the diagnosis of Diabetes Mellitus. PERFORMED BY: [place] [id number] PATHOLOGIST CHEMICAL ETCHING PROCESSOR HERMILO FOLEY M.D.Performed By: #### GLULS #### Point of Care testing ,Glucose [Mass/Vol]136 mg/dLNoUNC Health Physician GroupComment on above: Result Comment: Random Glucose Reference Range is dependent on time and content of last meal. Glucose of more than 200 mg/dL in a nonstressed, ambulatory subject supports the diagnosis of Diabetes Mellitus. PERFORMED BY: [address] [address] PATHOLOGIST CHEMICAL ETCHING PROCESSOR HERMILO FOLEY M.D.Performed By: #### GLULS #### Point of Care testing ,Glucose [Mass/Vol]178 mg/dLHCA Florida Highlands Hospital Physician GroupComment on above: Result Comment: Random Glucose Reference Range is dependent on time and content of last meal. Glucose of more than 200 mg/dL in a nonstressed, ambulatory subject supports the diagnosis of Diabetes Mellitus. PERFORMED BY: [address] [address] PATHOLOGIST CHEMICAL ETCHING PROCESSOR HERMILO FOLEY M.D.Performed By: #### GLULS #### Point of Care testing ,Glucose [Mass/Vol]223 mg/dLHCA Florida Highlands Hospital Physician GroupComment on above: Result Comment: Random Glucose Reference Range is dependent on time and content of last meal. Glucose of more than 200 mg/dL in a nonstressed, ambulatory subject supports the diagnosis of Diabetes Mellitus. PERFORMED BY: [address] [address] PATHOLOGIST CHEMICAL ETCHING PROCESSOR HERMILO FOLEY M.D.Performed By: #### GLULS #### Point of Care testing ,Glucose [Mass/volume] in Serum or PlasmaOrdered By: Moise Walker on 15-46-8415Bdjnize [Mass/Vol]216 mg/vTGjzc18-264EwvgtneckSumma Health Barberton Campus Comment on above:ADA recommended reference rangeRandom Glucose [...] recommended reference rangePerformed By: #### BMP #### [facility] [address] [place] [address] USANo Panel InformationOrdered By: Moise Walker on 99-84-6779Odljmpnk Creatinine Clearance (Chem23.37[facility] CampusPotassium [Moles/volume] in Serum or PlasmaOrdered By: Moise Walker on 95-93-5338Dxjrmclmi [Moles/Vol]5.8 mmol/LHigh3.5-5.1FMercy Health Springfield Regional Medical CenterComment on above:Performed By: #### BMP #### [facility] [address] [place] [address] USASerum or plasma anion gap determinationOrdered By: Moise Walker on 46-38-7171Iheiw gap [Moles/Vol]12.6 mmol/LNormal6.0-15.0[facility] CampusComment on above:Performed By: #### BMP #### [facility] [address] [place] [id number] USASodium [Moles/volume] in Serum or PlasmaOrdered By: Moise Walker on 99-36-4311Fjqekb [Moles/Vol]134 mmol/FIuq127-709JqcfdzykmSumma Health Barberton CampusComment on above:Performed By: #### BMP #### [facility] [address] [place] [address] USAUrea nitrogen [Mass/volume] in Serum or PlasmaOrdered By: Moise Walker on 23-21-4988Lsse nitrogen [Mass/Vol]43 mg/dLHigh7-25Sum[facility] Barberton CampusComment on above:Performed By: #### BMP #### [place] [id number] USAX-ray reportOrdered By: Alonzo Kennedy on 43-29-0230Srezh reportUNIVERSITY HOSPITALS [place] [address] XRay Report Signed Patient: Eugenio Crews MR#: [id number] : 1945 Acct:[id number] Age/Sex: 79 / M ADM Date: 5 Loc: 4N Room: [address] [place] [address] Type: ADM IN Attending Dr: Bryon Aguilar [...] Kennedy M.D. 03/24/2025 11:25 AM Dictation Location: [facility]-Search to Phone Transcribed By: [facility] 03/24/251124 Dictated By: Alonzo Kennedy II, MD 03/24/251123 Signed By: 03/24/251124 [facility] Work Phone: XR abdomen min 2Von 57-50-9222FV abdomen min 2V [facility] Main [address] [address] XRay Report Signed Patient: Eugenio Crews MR#: [id number] : 1945 Acct:[id number] Age/Sex: 79 / M ADM Date: 03/24/25 Loc: 4N Room: [address] [place] [address] Type: ADM IN Attending Dr: Bryon Aguilar [...] Kennedy M.D. 03/24/2025 11:25 AM Dictation Location: [place] [address] Transcribed By: [facility] 03/24/251124 Dictated By: Alonzo Kennedy II, MD 03/24/251123 Signed By: 03/24/25 1125[facility] Physician GroupBasophils Auto (Bld) [#/Vol] Ordered By: Guillermo Masterson on 66-72-5706Jnboyywfh (Bld) [#/Vol]0.0 10 3/uL0.0-0.1 [facility] CampusBasophils/100 WBC Auto (Bld)Ordered By: Guillermo Masterson on 09-99-9790Wpcehgegs/100 WBC (Bld)0.3 %0.2-2.0[facility] CampusCoarse granular casts count in urine sediment by microscopy low power field (number/aOrdered By: Guillermo Masterson on 28-25-6725Fcayhl Granular Casts LM.LPF (Urine sed) [#/Area][facility] Eosinophils/100 WBC Auto (Bld)Ordered By: Guillermo Masterson on 03-23-2025 Eosinophils/100 WBC (Bld)1.1 %0.9-7.0[facility] Erythrocyte distribution width Auto (RBC) [Ratio]Ordered By: Guillermo Masterson on 97-97-8980Geyvihaadew distribution width (RBC) [Ratio]12.1 %11.0-15.0[facility] CampusGlobulin Calc (S) [Mass/Vol]Ordered By: Guillermo Masterson on 83-84-3295Hybbspji (S) [Mass/Vol]3.4 g/dLSumma Health Barberton Campus Glomerular filtration rate (GFR) estimation in non- AmericanOrdered By: Guillermo Masterson on 55-68-4297WGX/1.73 sq M.predicted among non-blacks MDRD (S/P/Bld) [Vol rate/Area]18 mL/min/{1.73_m2}Low>=60 mL/min/1.73m 2FMercy Health Springfield Regional Medical CenterHematocrit Auto (Bld) [Volume fraction]Ordered By: Guillermo Masterson on 19-24-8899Liegjombkl (Bld) [Volume fraction]38.3 %Low42.0-54.0 [facility] CampusHemoglobin [Mass/volume] in BloodOrdered By: Guillermo Masterson on 84-83-6341Tunhgoznbf (Bld) [Mass/Vol]13.3 g/dLLow14.0-18.0 [facility] CampusLaboratory - Chemistry and Chemistry - challengeOrdered By: Guillermo Masterson on 14-52-4316Xunjyrlta Ql (U)NegativeNEGATIVE [facility] CampusGlucose (U) [Mass/Vol]250 mg/dLAbnormalNEGATIVE [facility] CampusKetones Ql (U)TRACE mg/dLAbnormalNEGATIVE [facility] CampuspH (U)5.5 [pH]5.0-9.0[facility] Medical Centerpecific gravity (U) [Rel density]1.0201.005-1.025[facility] CampusUrobilinogen Qn (U)0.2 {Bisi'U}/dL0.2-1.0[facility] CampusAlbumin [Mass/Vol]4.1 g/dL3.4-5.0[facility] ALP [Catalytic activity/Vol]105 U/H50-760DelgieeqsSumma Health Barberton CampusALT [Catalytic activity/Vol]21 U/K49-06OecbzwpohSumma Health Barberton CampusAmylase [Catalytic activity/Vol]24 U/NNxx84-277RwjfnxbmdSumma Health Barberton CampusAST [Catalytic activity/Vol]11 U/LHiz15-18QqeqtieluSumma Health Barberton CampusBilirubin [Mass/Vol]0.6 mg/dL0.2-1.0[facility] CampusBilirubin.direct [Mass/Vol]0.1 mg/dL0.0-0.2FMercy Health Springfield Regional Medical CenterCalcium [Mass/Vol]9.2 mg/dL8.5-10.1FMercy Health Springfield Regional Medical CenterChloride [Moles/Vol]103 mmol/L 98-107[facility] CampusCO2 [Moles/Vol]19.1 mmol/LLow21.0-32.0 [facility] CampusCreatinine [Mass/Vol]3.39 mg/dLHigh0.70-1.30 [facility] CampusGFR/1.73 sq M.predicted MDRD (S/P/Bld) [Vol rate/Area]22 mL/min/{1.73_m2}Low>=60 mL/min/1.73m 2FMercy Health Springfield Regional Medical CenterGlucose [Mass/Vol]157 mg/hMJdyg04-465TtassejitSumma Health Barberton Campus Lipase [Catalytic activity/Vol]18.0 U/L16.0-77.0[facility] CampusPotassium [Moles/Vol]4.9 mmol/L3.5-5.1FMercy Health Springfield Regional Medical Center Protein [Mass/Vol]7.5 g/dL6.4-8.2FSouthview Medical Centerodium [Moles/Vol]137 mmol/A331-428UnematstzSumma Health Barberton CampusUrea nitrogen [Mass/Vol]44.0 mg/dLHigh7.0-18.0[facility] CampusUrea nitrogen/Creatinine [Mass ratio]13.0 mg/mgSumma Health Barberton Campus Laboratory - Hematology and Cell countsOrdered By: Guillermo Masterson on 03-23-2025 Immature granulocytes/100 WBC (Bld)0.5 %0.0-0.5FMercy Health Springfield Regional Medical Center Laboratory - Specimen informationOrdered By: Guillermo Masterson on 03-23-2025 Appearance (U)CLEARCLEARFMercy Health Springfield Regional Medical CenterColor (U)LT. YELLOW YELLOWSumma Health Barberton CampusLaboratory - UrinalysisOrdered By: Guillermo Masterson on 06-53-3454Ffhldlenh esterase Test strip Ql (U)NegativeNEGATIVE [facility] CampusMucus Ql (Urine sed)NONE SEENNONE SEENSumma Health Barberton CampusNitrite Ql (U)NegativeNEGATIVESumma Health Barberton CampusProtein Ql (U)100 mg/dLAbnormalNEG/TRACESumma Health Barberton Campus Leukocytes [#/volume] corrected for nucleated erythrocytes in Blood by Automated counOrdered By: Guillermo Masterson on 93-84-3123NDT corrected for nucl RBC Auto (Bld) [#/Vol]12.1 10 3/uLHigh4.0-11.0[facility] Lymphocytes Auto (Bld) [#/Vol]Ordered By: Guillermo Masterson on 39-56-8089Xwxertjghfv (Bld) [#/Vol]1.0 10 3/uLLow1.2-3.8[facility] Lymphocytes/100 WBC Auto (Bld)Ordered By: Guillermo Masterson on 03-23-2025 Lymphocytes/100 WBC (Bld)8.1 %Low20.5-60.0[facility] Auto (RBC) [Entitic mass]Ordered By: Guillermo Masterson on 38-33-8659JHR (RBC) [Entitic mass]33.0 pg25.9-34.0[facility] CampusMCHC Auto (RBC) [Mass/Vol]Ordered By: Guillermo Masterson on 38-72-2556SSXD (RBC) [Mass/Vol]34.7 g/dL 29.9-35.2FMercy Health Springfield Regional Medical CenterMCV Auto (RBC) [Entitic vol]Ordered By: Guillermo Masterson on 10-22-9064CLL (RBC) [Entitic vol]95.0 eGYnzm38.0-94.0 [facility] CampusMonocytes Auto (Bld) [#/Vol]Ordered By: Guillermo Masterson on 18-24-6697Wvunjuwor (Bld) [#/Vol]0.8 10 3/uL0.3-0.8[facility] CampusMonocytes/100 WBC Auto (Bld)Ordered By: Guillermo Masterson on 53-22-7843Olqxxoasb/100 WBC (Bld)6.5 %1.7-12.0[facility] Neutrophils Auto (Bld) [#/Vol]Ordered By: Guillermo Masterson on 52-71-3806Bgzoadcgqah (Bld) [#/Vol]10.1 10 3/uLHigh1.4-6.5FMercy Health Springfield Regional Medical Center Neutrophils/100 WBC Auto (Bld)Ordered By: Guillermo Masterson on 03-23-2025 Neutrophils/100 WBC (Bld)83.5 %High43.0-75.0[facility] CampusNo Panel InformationOrdered By: Guillermo Masterson on 29-97-8268Rqryi BacteriaNONE SEEN #/HPFNONE SEENSumma Health Barberton CampusUrine Culture ReflexedYES-[facility] Medical CenterUrine Occult BloodTRACE-INEGATIVESumma Health Barberton CampusUrine Other CastsSEEN #/LPFAbnormalNONE SEENSumma Health Barberton CampusUrine Other CrystalsNone Seen #/HPFNone [facility] HospitalUrine RBC0-2 #/HPF0-2FMercy Health Springfield Regional Medical Center Urine Squamous Epithelial CellsNONE SEEN #/LPFNONE/RARESumma Health Barberton CampusUrine Transitional Epithelial CellsRARE #/LPFAbnormalNONE SEEN [facility] CampusUrine WBC5-10 #/HPFAbnormalNONE SEENSumma Health Barberton CampusEosinophils # (Auto)0.1 10 3/uL0.0-0.7FMercy Health Springfield Regional Medical CenterImmature Granulocyte # (Auto)0.06 10 3/uLHigh0.00-0.03[facility] CampusTroponin I High Aeboatosnff90.8 pg/mL4.0-76.1FMercy Health Springfield Regional Medical CenterComment on above:CUT-OFF POINTS HAVE BEEN ESTABLISHED BASED [...] (Bld) [Entitic vol]Ordered By: Guillermo Masterson on 72-34-1092Lsbndkfh mean volume (Bld) [Entitic vol]9.2 fLLow9.5-13.5FMercy Health Springfield Regional Medical CenterPlatelets Auto (Bld) [#/Vol]Ordered By: Guillermo Masterson on 03-23-2025 Platelets (Bld) [#/Vol]178 10 3/tJ093-287IzrwmfwtfSumma Health Barberton CampusRBC Auto (Bld) [#/Vol]Ordered By: Guillermo Masterson on 59-00-4166NHX (Bld) [#/Vol]4.03 10 6/uLLow4.70-6.10[facility] Regional Medical Centererum or plasma albumin/globulin mass ratioOrdered By: Guillermo Masterson on 03-23-2025 Albumin/Globulin [Mass ratio]1.2 {ratio}[facility] Medical Centererum or plasma anion gap determinationOrdered By: Guillermo Masterson on 83-98-8662Lhyfh gap [Moles/Vol]19.8 mmol/LFMercy Health Springfield Regional Medical CenterUrine Cultureon 17-64-6312Yocmummr identified Cx Nom (U)<9,000 colonies/ml mixed bacterial skin contaminants 2 Days PERFORMED BY: [place] [address] PATHOLOGIST CHEMICAL ETCHING PROCESSOR HERMILO FOLEY M.D.NormalThe [facility] Physician GroupComment on above: Performed By: #### CUU #### [place] [address] USAUrine cultureOrdered By: Guillermo Masterson on 03-23-2025 Bacteria identified Cx Nom (U)2 DaysSumma Health Barberton CampusErythrocyte distribution width Auto (RBC) [Ratio]Ordered By: Vaishali Howell on 01-19-2025 Erythrocyte distribution width (RBC) [Ratio]12.6 %11.0-15.0[facility] CampusGlomerular filtration rate (GFR) estimation in non- AmericanOrdered By: Vaishali Howell on 41-92-3471QDD/1.73 sq M.predicted among non- blacks MDRD (S/P/Bld) [Vol rate/Area]18 mL/min/{1.73_m2}Low>=60 mL/min/1.73m 2 [facility] CampusHematocrit Auto (Bld) [Volume fraction]Ordered By: Vaishali Howell on 79-02-3610Qnzobhnimp (Bld) [Volume fraction]32.9 %Low 42.0-54.0[facility] CampusHemoglobin [Mass/volume] in Blood Ordered By: Vaishali Howell on 87-15-3149Ymddbolugq (Bld) [Mass/Vol]11.5 g/dLLow 14.0-18.0[facility] CampusIron binding capacity [Mass/volume] in Serum or PlasmaOrdered By: Vaishali Howell on 07-06-1931Nhme binding capacity [Mass/Vol]248.0 ug/zGVuk523.0-450.0[facility] CampusIron saturation [Mass Fraction] in Serum or PlasmaOrdered By: Vaishali Howell on 21-40-8848Iwra saturation [Mass fraction]26.6 %[facility] Laboratory - Chemistry and Chemistry - challengeOrdered By: Vaishali Howell on 40-25-5191Cvefoomlv Ql (U)NegativeNEGATIVESumma Health Barberton Campus Glucose (U) [Mass/Vol]250 mg/dLAbnormalNEGATIVESumma Health [facility] Campus Ketones Ql (U)TRACE mg/dLAbnormalNEGATIVESumma Health Barberton CampuspH (U) 6.0 [pH]5.0-9.0[facility] Medical Centerpecific gravity (U) [Rel density]1.0251.005-1.025[facility] CampusUrobilinogen Qn (U)0.2 {Bisi'U}/dL0.2-1.0[facility] CampusAlbumin [Mass/Vol]3.7 g/dL 3.4-5.0[facility] CampusCalcium [Mass/Vol]8.3 mg/dLLow8.5-10.1 [facility] CampusChloride [Moles/Vol]108 mmol/PBqqf85-456 [facility] CampusCO2 [Moles/Vol]22.1 mmol/L21.0-32.0[facility] CampusCreatinine [Mass/Vol]3.38 mg/dLHigh0.70-1.30[facility] CampusFerritin [Mass/Vol]199.0 ng/mL26.0-388.0[facility] CampusGFR/1.73 sq M.predicted MDRD (S/P/Bld) [Vol rate/Area]22 mL/min/{1.73_m2}Low>=60 mL/min/1.73m 2FMercy Health Springfield Regional Medical CenterGlucose [Mass/Vol]131 mg/lDNinw45-817ToeqmhphbSumma Health Barberton CampusIron [Mass/Vol] 66.0 ug/dL65.0-175.0[facility] CampusMagnesium [Mass/Vol]1.9 mg/dL1.8-2.4FMercy Health Springfield Regional Medical CenterPotassium [Moles/Vol]4.6 mmol/L 3.5-5.1FSouthview Medical Centerodium [Moles/Vol]141 mmol/C813-168 [facility] CampusUrate [Mass/Vol]5.0 mg/dL3.5-7.2FMercy Health Springfield Regional Medical CenterUrea nitrogen [Mass/Vol]44.0 mg/dLHigh7.0-18.0[facility] CampusUrea nitrogen/Creatinine [Mass ratio]13.0 mg/mgSumma Health Barberton CampusLaboratory - Specimen informationOrdered By: Vaishali Howell on 51-81-9352Hnnlobstsb (U)CLEARCLEARFMercy Health Springfield Regional Medical CenterColor (U) LT. YELLOWYELLOWSumma Health Barberton CampusLaboratory - UrinalysisOrdered By: Vaishali Howell on 14-36-2503Tytwykkbs esterase Test strip Ql (U)TRACEAbnormal NEGATIVESumma Health Barberton CampusMucus Ql (Urine sed)NONE SEENNONE SEEN [facility] CampusNitrite Ql (U)NegativeNEGATIVESumma Health Barberton CampusProtein (U) [Mass/Vol]137.6 mg/dLHigh<=11.9[facility] CampusProtein Ql (U)100 mg/dLAbnormalNEG/TRACESumma Health Barberton CampusLeukocytes [#/volume] corrected for nucleated erythrocytes in Blood by Automated counOrdered By: Vaishali Howell on 21-86-9306IMJ corrected for nucl RBC Auto (Bld) [#/Vol]5.7 10 3/uL4.0-11.0[facility] HospitalH Auto (RBC) [Entitic mass]Ordered By: Vaishali Howell on 01-19-2025 MCH (RBC) [Entitic mass]33.4 pg25.9-34.0[facility] Memorial HospitalHC Auto (RBC) [Mass/Vol]Ordered By: Vaishali Howell on 53-43-5212LVDL (RBC) [Mass/Vol] 35.0 g/dL29.9-35.2FMercy Health Springfield Regional Medical CenterMCV Auto (RBC) [Entitic vol] Ordered By: Vaishali Howell on 49-88-2045BOE (RBC) [Entitic vol]95.6 jVYghz60.0-94.0 [facility] CampusNo Panel InformationOrdered By: Vaishali Howell on 14-65-1519Vtrlv BacteriaTRACE #/HPFAbnormalNONE [facility] HospitalUrine Occult BloodTRACE-INEGATIVESumma Health Barberton CampusUrine Other CastsNONE SEEN #/LPFNONE [facility] HospitalUrine Other CrystalsNone Seen #/HPFNone [facility] HospitalUrine Random Expwcxctdr205.73 mg/dL20.00-300.00[facility] CampusUrine RBC0-2 #/HPF0-2FMercy Health Springfield Regional Medical CenterUrine Squamous Epithelial CellsFEW #/LPFAbnormalNONE/RARESumma Health Barberton CampusUrine WBC2-5 #/HPF AbnormalNONE [facility]25-Hydroxy Vitamin D Total44.9 ng/mLSumma Health Barberton CampusComment on above:<20 ng/mL Vit D lnywzmjll83-<30 ng/mL Vit D uwalpgbnqcdk95-845 ng/mL Vit D sufficient>100 ng/mL Potential ToxicityParathyroid Hormone (Intact)160 pg/jCLteoeojx43-52DwolhpgyaSumma Health Barberton CampusComment on above:Performed at: [employer] [facility] [id number] Director: Karel Kaye PhD, Phone: [phone] Level3.6 mg/dL2.6-4.7FMercy Health Springfield Regional Medical Center Platelet mean volume Auto (Bld) [Entitic vol]Ordered By: Vaishali Howell on 11-82-2670Ywippqnu mean volume (Bld) [Entitic vol]8.7 fLLow9.5-13.5FMercy Health Springfield Regional Medical CenterPlatelets Auto (Bld) [#/Vol]Ordered By: Vaishali Howell on 84-03-1121Ijgznrcvr (Bld) [#/Vol]128 10 3/cOQuu631-844RhwhafokjSumma Health Barberton CampusRBC Auto (Bld) [#/Vol]Ordered By: Vaishali Howell on 26-72-5887HPI (Bld) [#/Vol]3.44 10 6/uLLow4.70-6.10[facility] Medical Centererum or plasma anion gap determinationOrdered By: Vaishali Howell on 93-43-0627Heihz gap [Moles/Vol]15.5 mmol/LFMercy Health Springfield Regional Medical CenterUrine protein/creatinine ratioOrdered By: Vaishali Howell on 33-93-7006Hgxkxlc/Creatinine (U) [Ratio]0.85 [facility] CampusHbA1c HPLC (Bld) [Mass fraction]Ordered By: Gerry Chang on 05-29-2726TaW4k (Bld) [Mass fraction]7.2 %[facility] CampusEstimated glomerular filtration rate (GFR) non- Americanon 60-05-3251GNU/1.73 sq M.predicted among non-blacks MDRD (S/P/Bld) [Vol rate/Area]Estimated glomerular filtration rate (GFR) non- AmericanLow>=60 mL/min/1.73m 2FMercy Health Springfield Regional Medical CenterGFR/1.73 sq M.predicted among non-blacks MDRD (S/P/Bld) [Vol rate/Area]19 mL/min/{1.73_m2}Low>=60 mL/min/1.[address]m [address] [place], [place] [address]Laboratory - Chemistry and Chemistry - challengeon 29-10-4288Crxescjacc [Mass/Vol]3.25 mg/dLHigh0.70-1.30[facility] CampusGFR/1.73 sq M.predicted MDRD (S/P/Bld) [Vol rate/Area]23 mL/min/{1.73_m2}Low>=60 mL/min/1.[address]m [address] [place], [place] [address]Urea nitrogen [Mass/Vol]45.0 mg/dLHigh7.0-18.0[facility] CampusUrine Cytology ([facility])on 21-11-3038Beacbsrdvwx exam Cytology (U) [Interp]Diagnosis InfoInvalid Interpretation CodeLake Norman Regional Medical Centerer Upmc Western MarylandComment on above: Result Comment: A:Urine,Clean Catch:Bladder Wash Interpretation - Adequate cellularity for evaluation. CPT 41703 MicroScopic Description - Adequacy - Gross Description Site ID:A color Yellow fixative Alcohol Specimen designated Clean Catch received in alcohol preservative and labeled with the patient???s name, consists of 80ml slightly cloudy yellow fluid. Electronically signed by : on: 10/21/2024 13:22:38Performed By: #### [id number] #### [facility] [address] [place] [address]Xjamsekcjwo distribution width Auto (RBC) [Ratio]on 10-20-2024 Erythrocyte distribution width (RBC) [Ratio]Erythrocyte distribution width [Ratio] by Automated count11.0-15.0[facility] CampusErythrocyte distribution width (RBC) [Ratio]12.1 %11.0-15.0[facility] Estimated glomerular filtration rate (GFR) non- Americanon 10-20-2024 GFR/1.73 sq M.predicted among non-blacks MDRD (S/P/Bld) [Vol rate/Area]Estimated glomerular filtration rate (GFR) non- AmericanLow>=60 mL/min/1.73m 2 [facility] CampusGFR/1.73 sq M.predicted among non-blacks MDRD (S/P/Bld) [Vol rate/Area]17 mL/min/{1.73_m2}Low>=60 mL/min/1.73m 2FMercy Health Springfield Regional Medical CenterHematocrit Auto (Bld) [Volume fraction]on 10-20-2024 Hematocrit (Bld) [Volume fraction]Hematocrit [Volume Fraction] of Blood by Automated hitqeQjo30.0-54.0[facility] CampusHematocrit (Bld) [Volume fraction]34.7 %Low42.0-54.0[facility] CampusHemoglobin [Mass/volume] in Bloodon 81-26-1749Hewbcsgzww (Bld) [Mass/Vol]Hemoglobin [Mass/volume] in AabblJur54.0-18.0[facility] CampusHemoglobin (Bld) [Mass/Vol]11.9 g/dLLow14.0-18.0[facility] CampusIron binding capacity [Mass/volume] in Serum or Plasmaon 07-51-2979Lchh binding capacity [Mass/Vol]Iron binding capacity [Mass/volume] in Serum or Plasma 250.0-450.0[facility] CampusIron binding capacity [Mass/Vol] 257.0 ug/dL250.0-450.0[facility] CampusIron saturation [Mass Fraction] in Serum or Plasmaon 40-47-4161Pqcz saturation [Mass fraction]Iron saturation [Mass Fraction] in Serum or PlasmaSumma Health Barberton Campus Iron saturation [Mass fraction]22.6 %[facility] CampusLaboratory - Chemistry and Chemistry - challengeon 11-57-8467Ybhngtd [Mass/Vol]3.5 g/dL 3.4-5.0[facility] CampusCalcium [Mass/Vol]8.9 mg/dL8.5-10.1 [facility] CampusChloride [Moles/Vol]105 mmol/G99-462JjnwyuhtcSumma Health Barberton CampusCO2 [Moles/Vol]24.1 mmol/L21.0-32.0[facility] CampusCreatinine [Mass/Vol]3.53 mg/dLHigh0.70-1.30[facility] CampusFerritin [Mass/Vol]195.0 ng/mL26.0-388.0[facility] CampusGFR/1.73 sq M.predicted MDRD (S/P/Bld) [Vol rate/Area]21 mL/min/{1.73_m2} Low>=60 mL/min/1.73m 2FMercy Health Springfield Regional Medical CenterGlucose [Mass/Vol]192 mg/tFPgjn41-158BnrmtkqdmSumma Health Barberton CampusIron [Mass/Vol]58.0 ug/dLLow 65.0-175.0[facility] CampusMagnesium [Mass/Vol]2.0 mg/dL1.8-2.4 [facility] CampusPotassium [Moles/Vol]5.5 mmol/LHigh3.5-5.1 [facility] Centerodium [Moles/Vol]138 mmol/O855-227LrdnkalizSumma Health Barberton CampusUrate [Mass/Vol]5.2 mg/dL3.5-7.2FMercy Health Springfield Regional Medical CenterUrea nitrogen [Mass/Vol]47.0 mg/dLHigh7.0-18.0[facility] CampusUrea nitrogen/Creatinine [Mass ratio]13.3 mg/mgSumma Health Barberton CampusLaboratory - Urinalysison 67-28-1200Lgfinpt (U) [Mass/Vol]124.3 mg/dLHigh<=11.9[facility] CampusLeukocytes [#/volume] corrected for nucleated erythrocytes in Blood by Automated counon 15-78-3113DFH corrected for nucl RBC Auto (Bld) [#/Vol]Leukocytes [#/volume] corrected for nucleated erythrocytes in Blood by Automated coun4.0-11.0[facility] WBC corrected for nucl RBC Auto (Bld) [#/Vol]10.9 10 3/uL4.0-11.0[facility] Auto (RBC) [Entitic mass]on 92-74-4546YTH (RBC) [Entitic mass]MCH [Entitic mass] by Automated count25.9-34.0[facility] (RBC) [Entitic mass]33.1 pg25.9-34.0[facility] Auto (RBC) [Mass/Vol]on 67-30-1478ASFL (RBC) [Mass/Vol]MCHC [Mass/volume] by Automated count29.9-35.2FMercy Health Springfield Regional Medical CenterMCHC (RBC) [Mass/Vol]34.3 g/dL29.9-35.2FElyria Memorial HospitalV Auto (RBC) [Entitic vol]on 87-55-1108UJK (RBC) [Entitic vol]MCV [Entitic volume] by Automated lajpsUaju03.0-94.0[facility] HospitalV (RBC) [Entitic vol]96.4 yBHzqm28.0-94.0[facility] CampusNo Panel Informationon [id number] Vitamin D Total43.4 ng/mLSumma Health Barberton Campus Comment on above:<20 ng/mL Vit D qgsunjjei34-<30 ng/mL Vit D rvikhvyqceye86-975 ng/mL Vit D sufficient>100 ng/mL Potential ToxicityParathyroid Hormone (Intact) 100 pg/zFXgxldvgi44-63MbogcdjmaSumma Health Barberton CampusComment on above: Performed at: [employer] [address] [id number] Director: Karel Kaye PhD, Phone: [phone] Level3.7 mg/dL 2.6-4.7FMercy Health Springfield Regional Medical CenterUrine Random Urpkwfjxaq157.43 mg/dL 20.00-300.00[facility] CampusPlatelet mean volume Auto (Bld) [Entitic vol]on 30-54-7371Byxcpbze mean volume (Bld) [Entitic vol]Platelet mean volume [Entitic volume] in Blood by Automated countLow9.5-13.5FMercy Health Springfield Regional Medical CenterPlatelet mean volume (Bld) [Entitic vol]8.9 fLLow9.5-13.5FMercy Health Springfield Regional Medical CenterPlatelets Auto (Bld) [#/Vol]on 85-74-5996Hynyxbtru (Bld) [#/Vol]Platelets [#/volume] in Blood by Automated -726ZrrqaydfxSumma Health Barberton CampusPlatelets (Bld) [#/Vol]157 10 3/dL032-644VzgmjrrwhSumma Health Barberton CampusRBC Auto (Bld) [#/Vol]on 72-01-8205RTL (d) [#/Vol]Erythrocytes [#/volume] in Blood by Automated countLow4.70-6.10[facility] CampusRB ([facility]) [#/Vol]3.60 10 6/uLLow4.70-6.10[facility] Serum or plasma anion gap determinationon 22-81-8814Yflcw gap [Moles/Vol]Serum or plasma anion gap determinationSumma Health Barberton CampusAnion gap [Moles/Vol]14.4 mmol/LFMercy Health Springfield Regional Medical CenterUrine protein/creatinine ratioon 42-04-2726Zeyjcxd/Creatinine (U) [Ratio]Urine protein/creatinine ratio [facility] CampusProtein/Creatinine (U) [Ratio]1.04[facility] CampusUrine Cytology ( Labs)on 84-76-7650JD Method of ExtractionBladder UrineNoLima Memorial HospitalComment on above: Performed By: #### [id number] #### [facility] [address], [place] [address]WE Number of Pyjn0Ymrpeig Interpretation [facility] Methodist HospitalComment on above:Performed By: #### [id number] #### [facility] [address], [place] [address]AD SpecimenClean CatchNoLima Memorial HospitalComment on above:Performed By: #### [id number] #### [facility] [address], [place] [address]HL Type of ServiceTechnical OnlyMcKitrick HospitalComment on above:Performed By: #### [id number] #### [facility] [address], [place] [address]Zjaxfdc Office/Clinic Noteon [phone] Office/Clinic NoteUrology Office/Clinic Note Chief Complaint discuss [...] E&M of Est. Patient Moderate 30-39 Min 45107 Influenza immunization status assessed 1030F Medication list [...] Urnls Dip Stick Auto w/o Microscopy POC 68663 Orders: ciprofloxacin, 500 mg = 1 tab(s), Oral, Daily, Take 1 tablet the day before the procedure and 1 tablet after the procedure, # 2 tab(s), Refills(s) 0, Pharmacy: [facility]/pharmacy #[id number], 187, cm, 10/16/24 8:21:00 EDT, Height/Length Dosing, 104.3, kg, 10/16/24 8:21:00 EDT,... Follow-up With When Contact Information [facility] Additional Instructions: For procedure as scheduled. [...] Heart disease: Mother an (more content not included)...McKitrick HospitalComment on above:Result Comment: Electronically Signed By: AILEEN DUKES PA-C\.br\Date and Time Signed: 10/16/2509:11 EDTNo Panel Information on 36-12-8700Cvpnpwic Specific Antigen Total3.01 ng/mL<=4.00[facility] CampusAmbulatory Visit Summaryon 03-29-8450Swxgfyjnms Visit Summary Ambulatory Visit Summary EUGENIO CREWS [...] Urology [address] , [place] [phone] Medications What How Much When Instructions Unchanged [...] instructions at home: Medi (more content not included)...NormalAdams County HospitalURINALYSIS Ordered By: SYSTEM SYSTEM on 28-35-1621Fefdsyski Ql (U)NegativeNormal Negativemg/dLFTMC UA Auto SSClarity (U)Clear (10/06/24 10:41 AM)NormalClearFC UA Auto SSColor (U)Light-Yellow 1 (10/06/24 10:41 AM)NormalYellowFT UA Auto SSComment on above:Interpretive Data: Microscopic readings are only performed on those samples that meet specific criteria set forth by [facility].Epithelial cells.squamous Auto (Urine sed) [#/Area]0-2 graded/HPFInvalid Interpretation CodeFT UA Auto SSGlucose Ql (U)3+ mg/dLInvalid Interpretation Code Negativemg/dLFTMC UA Auto SSHemoglobin Auto test strip (U) [Mass/Vol]Trace mg/dL Invalid Interpretation CodeNegativemg/dLFTMC UA Auto SSKetones Auto test strip Ql (U)NegativeNormalNegativemg/dLFTMC UA Auto SSLeukocyte esterase Auto test strip Ql (U)NegativeNormalNegativeLeu/uLFTMC UA Auto SSMucus Auto Ql (U)Trace graded/LPFNormalNegativegraded/LPFFTMC UA Auto SSNitrite Auto test strip Ql (U) NegativeNormalNegativemg/dLJACK[facility] U[facility] Auto SSpH (U)6.0 *NA* (10/06/24 10:41 AM)Invalid Interpretation Code5.0 - 9.0[facility] UA Auto SSProtein Ql (U)1+ mg/dLInvalid Interpretation CodeNegativemg/dLJACKSON [facility] UA Auto SSRBC Ql (U)4-20 graded/HPFInvalid Interpretation Code0-3graded/HPFJACKSON [facility] UA Auto SSSpecific gravity (U) [Rel density]1.017 *NA* (10/06/24 10:41 AM)Invalid Interpretation Code1.005 - 1.030[facility] UA Auto SS Urobilinogen (U) [Mass/Vol]NegativeNormalNegativemg/dLJACKSON [facility] UA Auto SSWBC Auto (Urine sed) [#/Area]0-5 graded/HPFNormal0-5graded/HPFJACKSON [facility] UA Auto SSURINALYSIS Ordered By: Aileen Dao on 95-74-2796FY Spec DescRandom Urine (10/06/24 10:41 AM)NormalJACKSON [facility] UA Auto SSUrinalysis with Microon 10-06-2024 Bilirubin Ql (U)NegativeNormalNegativeAdams County HospitalComment on above:Performed By: #### [id number] #### [facility] [address] [place] [address]Sdfklxi (U)ClearNormalClearAdams County HospitalComment on above:Performed By: #### [id number] #### [facility] [address], [place] [address]Ffxbw (U)Light-YellowNormalYellowAdams County Hospital Comment on above:Result Comment: Microscopic readings are only performed on those samples that meet specific criteria set forth by [facility].Performed By: #### [id number] #### [facility] [address], [place] [address]Kzmtmtzvbt cells.squamous Auto (Urine sed) [#/Area]0-2Invalid Interpretation CodeAdams County HospitalComment on above:Performed By: #### [id number] #### [facility] [address], [place] [address]Tmhgwvq Ql (U)3+ mg/dLAbnormalNegativeAdams County HospitalComment on above:Performed By: #### [id number] #### [facility] [address], [place] [address]Qcyjlojeab Auto test strip (U) [Mass/Vol]TraceAbnormalNegative [facility] HospitalComment on above:Performed By: #### [id number] #### [facility] [address], [place] [address]Bsupsgy Auto test strip Ql (U)NegativeNormalNegativeAdams County HospitalComment on above:Performed By: #### [id number] #### [facility] [address], [place] [address]Ptqrwxqdx esterase Auto test strip Ql (U)NegativeNormalNegative [facility] HospitalComment on above:Performed By: #### [id number] #### [facility] [address], [place] [address]Pgrtv Auto Ql (U)TraceNormalNegFairfield Medical Center Comment on above:Performed By: #### [id number] #### [facility] [address], [place] [address]Rjqijip Auto test strip Ql (U)NegativeNormalNegativeAdams County HospitalComment on above:Performed By: #### [id number] #### [facility] [address], [place] [address]nA (U)6.0 [pH]Invalid Interpretation Code5.0-9.0[facility] HospitalComment on above:Performed By: #### [id number] #### [facility] [address], [place] [address]Lqlzhwm Ql (U)1+ mg/dLAbnormalNegFairfield Medical CenterComment on above:Performed By: #### [id number] #### [facility] [address] [place] [address]YGO Ql (U)4-45Cntkbsgp0-6RumrejLakeHealth TriPoint Medical CenterComment on above:Performed By: #### [id number] #### [facility] [address] [place] [address]Jvdbrxcq gravity (U) [Rel density]1.017Invalid Interpretation Code1.005-1.030[facility] HospitalComment on above:Performed By: #### [id number] #### [facility] [address] [place] [address]Jweetkcenbva (U) [Mass/Vol]NegativeNormalNegativeAdams County HospitalComment on above:Performed By: #### [id number] #### [facility] [address] [place] [address]NNL Auto (Urine sed) [#/Area]4-0Zoetkc7-1QwhfqaLakeHealth TriPoint Medical CenterComment on above:Performed By: #### [id number] #### [facility] [address] [place] [address]Djgk of Urine collection methodRandom UrineNormalAdams County HospitalComment on above:Performed By: #### [id number] #### [facility] [address] [place] [address]Bqbtiyd Office/Clinic Noteon 08-51-7497Baqseqj Office/Clinic NoteUrology Office/Clinic Note Chief Complaint 6 [...] When Contact Information JADE DOYLE, Jenaro Roberto, [facility] [address], [place] [phone] Additional Instructions: 6 mos w/ PSA and [...] Daily Allergies Toradol ( (more content not included)...McKitrick HospitalComment on above:Result Comment: Electronically Signed By: Jenaro HANSEN MD\.br\Date and Time Signed: 10/06/24 09:17 EDT\.br\Electronically Co-Signed By: Rochelle Hightower\.br\Date and Time Co-Signed: 10/06/24 09:16 EDTNo Panel Informationon 57-87-7941Mhboldqn Specific Antigen Total3.51 ng/mL<=4.00[facility] CampusAlbumin [Mass/volume] in Serum or Plasmaon 07-21-2024 Albumin [Mass/Vol]Albumin [Mass/volume] in Serum or Plasma2.9-4.4FMercy Health Springfield Regional Medical CenterIgA [Mass/volume] in Serum or Plasmaon 14-77-4327ZsI [Mass/Vol]IgA [Mass/volume] in Serum or Gvgukf53-110KoukgxmjwSumma Health Barberton CampusIgG [Mass/volume] in Serum or Plasmaon 38-81-3112KqW [Mass/Vol]IgG [Mass/volume] in Serum or Dpekkt201-4008UvrfmvummSumma Health Barberton CampusIgM [Mass/volume] in Serum or Plasmaon 61-36-3021TeY [Mass/Vol]IgM [Mass/volume] in Serum or Nfkrky17-377MrmrhophtSumma Health Barberton CampusImmunoglobulin light chains.kappa.free [Mass/volume] in Serumon 78-05-7722Tdlllddhowchrz light chains.kappa.free (S) [Mass/Vol]Immunoglobulin light chains.kappa.free [Mass/volume] in SerumAbnormal3.3-19.4FMercy Health Springfield Regional Medical Center Immunoglobulin light chains.kappa.free/Immunoglobulin light chains.lambda.free [Sean 22-52-6484Hopbmbyuwyvgyp light chains.kappa.free/Immunoglobulin light chains.lambda.free (S) [Mass ratio]Immunoglobulin light chains.kappa.free/Immunoglobulin light chains.lambda.free [Mass0.26-1.65 [facility] CampusComment on above:Performed at: [employer] [id number] [place], [place] [id number] Director: Karel Kaye PhD, Phone: [phone] light chains.lambda.free [Mass/volume] in Serum or Plasmaon 18-41-5799Dadcbjndfkdwrq light chains.lambda.free [Mass/Vol] Immunoglobulin light chains.lambda.free [Mass/volume] in Serum or PlasmaAbnormal 5.7-26.3FMercy Health Springfield Regional Medical CenterNo Panel Informationon 07-21-2024 Protein Electrophoresis M-SpikeNot Observed g/dLNot ObservedSumma Health Barberton CampusProtein Electrophoresis NoteComment.[facility] CampusComment on above:Protein electrophoresis scan will follow via computer,mail, or tipple greaser delivery.Protein [Mass/volume] in Serum or Plasmaon 82-50-6351Ciujqgi [Mass/Vol]Protein [Mass/volume] in Serum or Plasma6.0-8.5 [facility] Centererum globulin measurement (mass/volume)on 52-69-8886Tnfqmpby (S) [Mass/Vol]Serum globulin measurement (mass/volume)2.2-3.9 [facility] Centererum or plasma albumin/globulin mass ratioon 97-24-9459Olcekbk/Globulin [Mass ratio]Serum or plasma albumin/globulin mass ratio0.7-1.7FSouthview Medical Centererum or plasma alpha 1 globulin measurement by electrophoresis (mass/volume)on 95-11-0716Girkd 1 globulin Elph [Mass/Vol]Serum or plasma alpha 1 globulin measurement by electrophoresis (mass/volume)0.0-0.4FSouthview Medical Centererum or plasma alpha 2 globulin measurement by electrophoresis (mass/volume)on 32-73-3613Kutnt 2 globulin Elph [Mass/Vol]Serum or plasma alpha 2 globulin measurement by electrophoresis (mass/volume)0.4-1.0[facility] Centererum or plasma beta globulin measurement by electrophoresis (mass/volume)on 07-21-2024 Beta globulin Elph [Mass/Vol]Serum or plasma beta globulin measurement by electrophoresis (mass/volume)0.7-1.3FSouthview Medical Centererum or plasma gamma globulin measurement by electrophoresis (mass/volume)on 07-21-2024 Gamma globulin Elph [Mass/Vol]Serum or plasma gamma globulin measurement by electrophoresis (mass/volume)0.4-1.8[facility] Centererum or plasma immunoelectrophoresis interpretationon 10-44-3743Aktouhvlyphcem IEP [Interp]Serum or plasma immunoelectrophoresis interpretation.[facility] CampusComment on above:Presence of monoclonal protein is unclear at this time. Suggestrepeat in 3 to 6 months if clinically indicated.Erythrocyte distribution width Auto (RBC) [Ratio]on 81-10-9590Yylwgxqvnwg distribution width (RBC) [Ratio]Erythrocyte distribution width [Ratio] by Automated count11.0-15.0 [facility] CampusEstimated glomerular filtration rate (GFR) non- Americanon 89-20-8169NMI/1.73 sq M.predicted among non-blacks MDRD (S/P/Bld) [Vol rate/Area]Estimated glomerular filtration rate (GFR) non- AmericanLow>=60 mL/min/1.73m 2FMercy Health Springfield Regional Medical CenterHematocrit Auto (Bld) [Volume fraction]on 26-62-2567Occafvkbyk (Bld) [Volume fraction]Hematocrit [Volume Fraction] of Blood by Automated tpvjtRwt57.0-54.0[facility] CampusHemoglobin [Mass/volume] in Bloodon 96-96-1193Mibspzzhlp (Bld) [Mass/Vol]Hemoglobin [Mass/volume] in HzdtnLmo89.0-18.0[facility] CampusIron binding capacity [Mass/volume] in Serum or Plasmaon 27-38-7763Hmcq binding capacity [Mass/Vol]Iron binding capacity [Mass/volume] in Serum or Lapkku568.0-450.0[facility] CampusIron saturation [Mass Fraction] in Serum or Plasmaon 53-40-4334Brbf saturation [Mass fraction] Iron saturation [Mass Fraction] in Serum or PlasmaSumma Health Barberton CampusLaboratory - Chemistry and Chemistry - challengeon 94-85-5893Ulbymcoqh Ql (U)NegativeNEGATIVESumma Health Barberton CampusGlucose (U) [Mass/Vol]500 mg/dLAbnormalNEGATIVESumma Health Barberton CampusKetones Ql (U)Negative NEGATIVESumma Health Barberton CampuspH (U)6.0 [pH]5.0-9.0[facility] Medical Centerpecific gravity (U) [Rel density]1.0251.005-1.025[facility] CampusUrobilinogen Qn (U)0.2 {Bisi'U}/dL0.2-1.0[facility] CampusAlbumin [Mass/Vol]3.6 g/dL3.4-5.0[facility] CampusCalcium [Mass/Vol]8.4 mg/dLLow8.5-10.1FMercy Health Springfield Regional Medical CenterChloride [Moles/Vol]106 mmol/W31-950RsazajahmSumma Health Barberton CampusCO2 [Moles/Vol]25.5 mmol/L21.0-32.0[facility] CampusCreatinine [Mass/Vol]3.27 mg/dLHigh0.70-1.30[facility] CampusFerritin [Mass/Vol]230.0 ng/mL26.0-388.0[facility] CampusGFR/1.73 sq M.predicted MDRD (S/P/Bld) [Vol rate/Area]22 mL/min/{1.73_m2}Low>=60 mL/min/1.73m 2FMercy Health Springfield Regional Medical CenterGlucose [Mass/Vol]141 mg/dLHigh 74-106Sum[facility] CampusIron [Mass/Vol]82.0 ug/dL65.0-175.0 [facility] CampusMagnesium [Mass/Vol]1.7 mg/dLLow1.8-2.4 [facility] CampusPotassium [Moles/Vol]4.7 mmol/L3.5-5.1FSouthview Medical Centerodium [Moles/Vol]142 mmol/F415-433TfnddugooSumma Health Barberton CampusUrate [Mass/Vol]5.4 mg/dL3.5-7.2FMercy Health Springfield Regional Medical Center Urea nitrogen [Mass/Vol]46.0 mg/dLHigh7.0-18.0[facility] Urea nitrogen/Creatinine [Mass ratio]14.1 mg/mgSumma Health Barberton Campus Laboratory - Specimen informationon 07-62-1028Iktcugwurc (U)CLEARCLEARFMercy Health Springfield Regional Medical CenterColor (U)YELLOWYELLOWSumma Health Barberton Campus Laboratory - Urinalysison 54-46-4423Orqwpccsz esterase Test strip Ql (U)Negative NEGATIVESumma Health Barberton CampusMucus Ql (Urine sed)TRACEAbnormalNONE [facility]ultman HospitalNitrite Ql (U)NegativeNEGATIVESumma Health Barberton CampusProtein (U) [Mass/Vol]101.7 mg/dLHigh<=11.9[facility] CampusProtein Ql (U)100 mg/dLAbnormalNEG/TRACESumma Health Barberton CampusLeukocytes [#/volume] corrected for nucleated erythrocytes in Blood by Automated counon 33-60-5164VJA corrected for nucl RBC Auto (Bld) [#/Vol]Leukocytes [#/volume] corrected for nucleated erythrocytes in Blood by Automated coun4.0-11.0Tr[facility]ull Memorial HospitalH Auto (RBC) [Entitic mass]on 83-97-5395YOG (RBC) [Entitic mass]MCH [Entitic mass] by Automated count25.9-34.0[facility] HospitalHC Auto (RBC) [Mass/Vol]on 74-02-8223UJFT (RBC) [Mass/Vol]MCHC [Mass/volume] by Automated count29.9-35.2FElyria Memorial HospitalV Auto (RBC) [Entitic vol]on 80-27-5855AAN (RBC) [Entitic vol]MCV [Entitic volume] by Automated countHigh 80.0-94.0[facility] CampusNo Panel Informationon 41-81-7619Tpvra BacteriaNONE SEEN #/HPFNONE [facility]ult[facility] HospitalUrine Occult BloodTRACE-INEGATIVESumma Health Barberton CampusUrine Random Creatinine 129.70 mg/dL20.00-300.00[facility] CampusUrine RBC0-2 #/HPF0-2 [facility] CampusUrine Squamous Epithelial CellsFEW #/LPF AbnormalNONE/RARESumma Health Barberton CampusUrine WBC0-2 #/HPFAbnormalNONE SEENSumma Health Barberton Campus25-Hydroxy Vitamin D Total35.2 ng/mL [facility] CampusComment on above:<20 ng/mL Vit D kakbusmsr80- <30 ng/mL Vit D ozkllkhehynp67-025 ng/mL Vit D sufficient>100 ng/mL Potential ToxicityParathyroid Hormone (Intact)175 pg/zUJfdsiswx00-23AgemmusotSumma Health Barberton CampusComment on above:Performed at: [employer] [facility]AdNear[address] [id number] Director: Karel Kaye PhD, Phone: [phone] Phosphorus Level3.9 mg/dL2.6-4.7FMercy Health Springfield Regional Medical CenterPlatelet mean volume Auto (Bld) [Entitic vol]on 80-57-8334Opgbacth mean volume (Bld) [Entitic vol]Platelet mean volume [Entitic volume] in Blood by Automated countLow9.5-13.5 [facility] CampusPlatelets Auto (Bld) [#/Vol]on 07-14-2024 Platelets (Bld) [#/Vol]Platelets [#/volume] in Blood by Automated countLow 150-450Sum[facility] Barber[facility] CampusRBC Auto (Bld) [#/Vol]on 70-17-0260BOT (Bld) [#/Vol]Erythrocytes [#/volume] in Blood by Automated countLow4.70-6.10 [facility] Centererum or plasma anion gap determinationon 34-20-4612Yulax gap [Moles/Vol]Serum or plasma anion gap determinationSumma Health Barberton CampusUrine protein/creatinine ratioon 07-14-2024 Protein/Creatinine (U) [Ratio]Urine protein/creatinine ratioSumma Health Barberton CampusAlbumin [Mass/volume] in Serum or Plasmaon 89-51-6558Vmdraar [Mass/Vol]Albumin [Mass/volume] in Serum or Plasma2.9-4.4FMercy Health Springfield Regional Medical CenterHepatitis B virus surface Ab [Presence] in Serumon 99-30-6114YGI surface Ab Ql (S)Hepatitis B virus surface Ab [Presence] in SerumAbnormal Immunity>10[facility] CampusComment on above:Status of Immunity Anti-HBs Level Inconsistent with Immunity 0.0 - 10.0Consistent with Immunity >10.0Hepatitis B virus surface Ag [Presence] in Serum or Plasma by Immunoassayon 90-72-9110YGN surface Ag IA QlHepatitis B virus surface Ag [Presence] in Serum or Plasma by ImmunoassayNegativeSumma Health Barberton CampusIgA [Mass/volume] in Serum or Plasmaon 56-75-1355FtX [Mass/Vol]IgA [Mass/volume] in Serum or Folput92-725RozsntrnvSumma Health Barberton CampusIgG [Mass/volume] in Serum or Plasmaon 94-16-1537FzK [Mass/Vol]IgG [Mass/volume] in Serum or Cxihan887-8141EjlxgbmsgSumma Health Barberton CampusIgM [Mass/volume] in Serum or Plasmaon 34-03-5512GdL [Mass/Vol]IgM [Mass/volume] in Serum or Nkzscq64-722QgnsfqfjpSumma Health Barberton CampusImmunoglobulin light chains.kappa.free [Mass/volume] in Serumon 82-77-1579Fuvuqupseepvha light chains.kappa.free (S) [Mass/Vol]Immunoglobulin light chains.kappa.free [Mass/volume] in SerumAbnormal3.3-19.4FMercy Health Springfield Regional Medical Center Immunoglobulin light chains.kappa.free/Immunoglobulin light chains.lambda.free [Sean 94-95-8143Kwztkffjvkiwow light chains.kappa.free/Immunoglobulin light chains.lambda.free (S) [Mass ratio]Immunoglobulin light chains.kappa.free/Immunoglobulin light chains.lambda.free [Mass0.26-1.65 [facility] CampusComment on above:Performed at: [employer] [id number] Director: Karel Kaye PhD, Phone: [phone] light chains.lambda.free [Mass/volume] in Serum or Plasmaon 67-35-8533Zyqpgwokmclhmr light chains.lambda.free [Mass/Vol] Immunoglobulin light chains.lambda.free [Mass/volume] in Serum or PlasmaAbnormal 5.7-26.3FMercy Health Springfield Regional Medical CenterLaboratory - Urinalysison 04-11-2024 Protein (U) [Mass/Vol]104.8 mg/dLHigh<=11.9[facility] CampusNo Panel Informationon 55-73-047113549984-Zormjyk Vitamin D Total36.9 ng/mLSumma Health Barberton CampusComment on above:<20 ng/mL Vit D ejnbrgspy33-<30 ng/mL Vit D ijuvtdcysvkp91-960 ng/mL Vit D sufficient>100 ng/mL Potential Toxicity Hepatitis B Core Total AntibodyNegativeNegativeSumma Health Barberton Campus Comment on above:Performed at: [employer] [facility] [id number] Director: Karel Kaye PhD, Phone: [phone] Electrophoresis M-SpikeNot Observed g/dLNot ObservedSumma Health Barberton CampusProtein Electrophoresis NoteComment.[facility] Comment on above:Protein electrophoresis scan will follow via computer,mail, or tipple greaser delivery.Urine Random Fwdoaylzwj978.54 mg/dL20.00-300.00[facility] CampusProtein [Mass/volume] in Serum or Plasmaon 04-11-2024 Protein [Mass/Vol]Protein [Mass/volume] in Serum or Plasma6.0-8.5FSouthview Medical Centererum globulin measurement (mass/volume)on 04-11-2024 Globulin (S) [Mass/Vol]Serum globulin measurement (mass/volume)2.2-3.9[facility] Centererum or plasma albumin/globulin mass ratioon 04-11-2024 Albumin/Globulin [Mass ratio]Serum or plasma albumin/globulin mass ratio0.7-1.7 [facility] Centererum or plasma alpha 1 globulin measurement by electrophoresis (mass/volume)on 82-92-1965Jkcha 1 globulin Elph [Mass/Vol]Serum or plasma alpha 1 globulin measurement by electrophoresis (mass/volume)0.0-0.4 [facility] Centererum or plasma alpha 2 globulin measurement by electrophoresis (mass/volume)on 15-37-6176Hyeei 2 globulin Elph [Mass/Vol]Serum or plasma alpha 2 globulin measurement by electrophoresis (mass/volume)0.4-1.0 [facility] Centererum or plasma beta globulin measurement by electrophoresis (mass/volume)on 69-32-6664Qcml globulin Elph [Mass/Vol]Serum or plasma beta globulin measurement by electrophoresis (mass/volume)0.7-1.3 [facility] Centererum or plasma gamma globulin measurement by electrophoresis (mass/volume)on 86-14-7554Mixff globulin Elph [Mass/Vol]Serum or plasma gamma globulin measurement by electrophoresis (mass/volume)0.4-1.8 [facility] Centererum or plasma immunoelectrophoresis interpretationon 58-98-3043Miltohoukvvqfh IEP [Interp]Serum or plasma immunoelectrophoresis interpretation.[facility] CampusComment on above:Presence of monoclonal protein is unclear at this time. Suggestrepeat in 3 to 6 months if clinically indicated.Urine protein/creatinine ratioon 81-93-3752Xrudhfj/Creatinine (U) [Ratio]Urine protein/creatinine ratioSumma Health Barberton CampusBasophils Auto (Bld) [#/Vol]on 19-98-1964Lkkupfkmi (Bld) [#/Vol]Automated basophil count0.0-0.1FMercy Health Springfield Regional Medical Center Basophils/100 WBC Auto (Bld)on 99-85-0533Kzogdhehx/100 WBC (Bld)Automated basophil %0.2-2.0[facility] CampusCholesterol in LDL Calc [Mass/Vol]on 60-24-1649Ysiswikegbp in LDL [Mass/Vol]Cholesterol in LDL [Mass/volume] in Serum or Plasma by calculationSumma Health Barberton Campus Comment on above:<100 mg/dl JSHKGPK744-859 mg/dl NEAR OR ABOVE GGVFSOL174-275 mg/dl BORDERLINE SFSD911-150 mg/dl HIGH>190 mg/dl VERY HIGHCholesterol in VLDL Calc [Mass/Vol]on 41-62-7962Ajxxonkznir in VLDL [Mass/Vol]Cholesterol in VLDL [Mass/volume] in Serum or Plasma by calculationSumma Health Barberton Campus Eosinophils/100 WBC Auto (Bld)on 38-81-3540Otgfmipyefn/100 WBC (Bld)Automated eosinophil %0.9-7.0[facility] CampusErythrocyte distribution width Auto (RBC) [Ratio]on 57-21-7326Vednvsztwjc distribution width (RBC) [Ratio]Erythrocyte distribution width [Ratio] by Automated count11.0-15.0 [facility] CampusEstimated glomerular filtration rate (GFR) non- Americanon 56-47-9497EFP/1.73 sq M.predicted among non-blacks MDRD (S/P/Bld) [Vol rate/Area]Estimated glomerular filtration rate (GFR) non- AmericanLow>=60 mL/min/1.73m 2FMercy Health Springfield Regional Medical CenterGlobulin Calc (S) [Mass/Vol]on 43-79-7098Uprlcdyq (S) [Mass/Vol]Serum globulin measurement by calculation (mass/volume)[facility] CampusHematocrit Auto (Bld) [Volume fraction]on 91-85-6599Kjjeorgqwf (Bld) [Volume fraction]Hematocrit [Volume Fraction] of Blood by Automated nwyzwFkj86.0-54.0[facility] CampusHemoglobin [Mass/volume] in Bloodon 55-82-1346Psnqtulpqw (Bld) [Mass/Vol]Hemoglobin [Mass/volume] in CwkyjTnh55.0-18.0[facility] CampusLaboratory - Chemistry and Chemistry - challengeon 04-01-2024 Albumin [Mass/Vol]3.2 g/dLLow3.4-5.0[facility] CampusALP [Catalytic activity/Vol]92 U/X42-849XxgnmefjjSumma Health Barberton CampusALT [Catalytic activity/Vol]14 U/AIvn20-75RuyqeltssSumma Health Barberton CampusAST [Catalytic activity/Vol]12 U/ZIqb40-21CeguixxihSumma Health Barberton CampusBilirubin [Mass/Vol]0.4 mg/dL0.2-1.0[facility] CampusCalcium [Mass/Vol]8.4 mg/dLLow8.5-10.1FMercy Health Springfield Regional Medical CenterChloride [Moles/Vol]109 mmol/L Fjie95-637CbcpahquuSumma Health Barberton CampusCholesterol [Mass/Vol]103 mg/dL<=200 [facility] CampusCholesterol in HDL [Mass/Vol]36 mg/cEVhq95-50 [facility] CampusComment on above:> or =60 mg/dl - LOW CARDIOVASCULAR RISK<40 mg/dl - HIGH CARDIOVASCULAR RISKCO2 [Moles/Vol]21.1 mmol/L21.0-32.0[facility] CampusCreatinine [Mass/Vol]3.15 mg/dL High0.70-1.30[facility] CampusGFR/1.73 sq M.predicted MDRD (S/P/Bld) [Vol rate/Area]23 mL/min/{1.73_m2}Low>=60 mL/min/1.73m 2FMercy Health Springfield Regional Medical CenterGlucose [Mass/Vol]151 mg/xHNllr12-693NgfjptapjSumma Health [facility]ton CampusPotassium [Moles/Vol]4.9 mmol/L3.5-5.1FMercy Health Springfield Regional Medical CenterProtein [Mass/Vol]6.5 g/dL6.4-8.2FSouthview Medical Centerodium [Moles/Vol]142 mmol/J914-447WsogroukiSumma Health Barberton CampusTriglyceride [Mass/Vol]170 mg/dLHigh<=150[facility] CampusUrea nitrogen [Mass/Vol]48.0 mg/dLHigh7.0-18.0[facility] CampusUrea nitrogen/Creatinine [Mass ratio]15.2 mg/mgSumma Health Barber[facility] Campus Laboratory - Hematology and Cell countson 36-28-5094Cgwfdfeb granulocytes/100 WBC (Bld)0.3 %0.0-0.5FMercy Health Springfield Regional Medical CenterLaboratory - Urinalysison 71-00-8498Jcawjac (U) [Mass/Vol]94.1 mg/dLHigh<=11.9[facility] CampusLeukocytes [#/volume] corrected for nucleated erythrocytes in Blood by Automated counon 49-00-9169PWD corrected for nucl RBC Auto (Bld) [#/Vol] Leukocytes [#/volume] corrected for nucleated erythrocytes in Blood by Automated coun4.0-11.0[facility] CampusLymphocytes Auto (Bld) [#/Vol]on 53-25-7552Ynyfefnluje (Bld) [#/Vol]Lymphocytes [#/volume] in Blood by Automated countLow1.2-3.8[facility] CampusLymphocytes/100 WBC Auto (Bld)on 07-76-3447Ueuasadhawf/100 WBC (Bld)Lymphocytes/100 leukocytes in Blood by Automated qtgfkMgc79.5-60.0[facility] HospitalH Auto (RBC) [Entitic mass]on 97-28-7375LVC (RBC) [Entitic mass]MCH [Entitic mass] by Automated count25.9-34.0[facility] CampusMCHC Auto (RBC) [Mass/Vol]on 32-76-2684DMYP (RBC) [Mass/Vol]MCHC [Mass/volume] by Automated count29.9-35.2FMercy Health Springfield Regional Medical CenterMCV Auto (RBC) [Entitic vol]on 15-17-6022JYT (RBC) [Entitic vol]MCV [Entitic volume] by Automated countHigh 80.0-94.0[facility] CampusMonocytes Auto (Bld) [#/Vol]on 73-77-7807Ybbpsbbym (Bld) [#/Vol]Automated blood monocyte count0.3-0.8[facility] CampusMonocytes/100 WBC Auto (Bld)on 24-19-9615Mpfniinoo/100 WBC (Bld)Automated monocyte %1.7-12.0[facility] Neutrophils Auto (Bld) [#/Vol]on 77-12-9186Gygjefocwpo (Bld) [#/Vol]Neutrophils [#/volume] in Blood by Automated count1.4-6.5FMercy Health Springfield Regional Medical Center Neutrophils/100 WBC Auto (Bld)on 10-71-9687Gdibvjzytia/100 WBC (Bld)Automated neutrophil %High43.0-75.0[facility] CampusNo Panel Informationon 63-40-3120Mkxbtrynbke # (Auto)0.2 10 3/uL0.0-0.7FMercy Health Springfield Regional Medical CenterImmature Granulocyte # (Auto)0.02 10 3/uL0.00-0.03[facility] CampusProstate Specific Antigen Screen5.63 ng/mLHigh<=4.00[facility] CampusUrine Random Llcnxcboeb041.93 mg/dL20.00-300.00[facility] CampusPlatelet mean volume Auto (Bld) [Entitic vol]on 74-18-6149Xbgzdnji mean volume (Bld) [Entitic vol]Platelet mean volume [Entitic volume] in Blood by Automated countLow9.5-13.5FMercy Health Springfield Regional Medical Center Platelets Auto (Bld) [#/Vol]on 27-95-0475Heaymtlrt (Bld) [#/Vol]Platelets [#/volume] in Blood by Automated avquoVgc989-631NmxcicffwSumma Health Barberton CampusRBC Auto (Bld) [#/Vol]on 34-62-4295BOY (Bld) [#/Vol]Erythrocytes [#/volume] in Blood by Automated countLow4.70-6.10[facility] Medical Centererum or plasma albumin/globulin mass ratioon 40-66-6814Bajwemi/Globulin [Mass ratio]Serum or plasma albumin/globulin mass ratioTrumbull Regional Medical Centererum or plasma anion gap determinationon 38-46-4087Dihts gap [Moles/Vol]Serum or plasma anion gap determinationTrumbull Regional Medical Centererum or plasma total cholesterol/high density lipoprotein (HDL) cholesterol mass tawanna 40-90-7982Iajdkezcjse.total/Cholesterol in HDL [Mass ratio]Serum or plasma total cholesterol/high density lipoprotein (HDL) cholesterol mass ratSumma Health Barberton CampusComment on above:3.3 - 4.4 LOW RISK4.4 - 7.1 AVERAGE RISK7.1 - 11.0 MODERATE RISK>11.0 HIGH RISKUrine protein/creatinine ratioon 60-87-6934Xsnktpn/Creatinine (U)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 SEPG, IRON, TSH, TRANSF, SERFOL ####[facility] [place] [phone] [Mass/Vol]5.7 g/dLLow6.3-8.0[facility] on above:Performed By: #### FERR, B12, SEPG, IRON, TSH, TRANSF, SERFOL ####[facility] [place] [phone] Staff ReviewReviewed by Enrrique Chowdhury M.D., PhD ([id number])NormalSamaritan Hospital on above: Performed By: #### FERR, B12, SEPG, IRON, TSH, TRANSF, SERFOL ####[facility] [place] [phone] CBCDIF (for [facility] use only)on 69-78-3834Whj Baso<0.03Normal<0.11CProtestant HospitalAbs Mono0.37 k/uLNormal<0.87[facility] Neut3.53 k/uL Normal1.45-7.50[facility] ClevelandAbsolute nRBC<0.01Normal<0.01[facility] HospitalBasophils/100 WBC (Bld)0.4 %NormalThe Christ Hospital DTYPEAuto DiffNormalCProtestant HospitalEosinophils (Bld) [#/Vol]0.09 10*3/uLNormal<0.46[facility] HospitalEosinophils/100 WBC (Bld)1.7 %Normal [facility] HospitalErythrocyte distribution width (RBC) [Ratio]13.4 % Dbjlry31.5-15.0The Christ HospitalHematocrit (Bld) [Volume fraction]29.3 %Low39.0-51.0[facility] HospitalHemoglobin (Bld) [Mass/Vol]10.0 g/dLLow 13.0-17.0[facility] HospitalLymphocytes (Bld) [#/Vol]1.17 10*3/uLNormal 1.00-4.00[facility] HospitalLymphocytes/100 WBC (Bld)22.5 %Normal [facility] HospitalMCH31.7 jHFznnmv91.0-34.0[facility] MCHC (RBC) [Mass/Vol]34.1 g/aLQiiwue61.5-36.0[facility] HospitalMCV (RBC) [Entitic vol]93.0 uBHaxtye47.0-100.0[facility] HospitalMonocytes/100 WBC (Bld)7.1 %NormalThe Christ HospitalNeutrophils/100 WBC (Bld)68.3 %Normal [facility] Christ HospitalNRBCs0.0 /100 FYCEedxox6GevynajfaThe Christ Hospital Platelet mean volume (Bld) [Entitic vol]8.5 fLLow9.0-12.7CProtestant HospitalPlatelets (Bld) [#/Vol]162 10*3/qNMzakga761-651Rpscvljrf Clinic Cletrumbull memorial hospitalRBC (Bld) [#/Vol]3.15 10*6/uLLow4.20-6.00The Christ HospitalWBC (Bld) [#/Vol]5.20 10*3/uLNormal3.70-11.00The Christ HospitalReticulocyte on 37-78-2489Dfj Retic0.044 M/uLNormal0.0180-0.1000[facility] Comment on above:Performed By: #### EPO #### [place] [address] [place] [address] Kmwcs%1.4 %Normal0.4-2.0The Christ HospitalComment on above: Performed By: #### EPO #### [place] [address] NQEkl 48-83-1611OBE Qn2.350 m[IU]/LNormal0.270-4.200The Christ HospitalComment on above:Performed By: #### EPO #### [place] [address] Yyleaawaxipqr 67-87-1427Lsqtuxipeqk [Mass/Vol]181 mg/eKJvb531-407 The Christ HospitalComment on above:Performed By: #### EPO #### [place] [address] Muttzpn B12on 74-48-3467Qjfklvdcm (Vitamin B12) [Mass/Vol]654 pg/mL Mppftd175-3361QtfjeazpqProtestant HospitalComment on above:Performed By: #### EPO #### [place] [address] Vital Signs Date TimeVital SignValuePerforming RjzyhbzhlQyimvvhc57-57-4021 08:110400Body paitec085.96 cmBenjamin Ball DO Work Phone: [facility]10-31-2025 08:11-0400 Body mass index (BMI) [Ratio]29.2 kg/e4Jjxnlyng Ball DO Work Phone: [facility]10-31-2025 08:11-0400 Body graowlanivr83.5 [degF]Gerry Ball DO Work Phone: [phone] [place], [place] 9541510-31-2025 08:11-0400 Body fqsgge852.41 kgBenjamin Ball DO Work Phone: [phone] [place], [place] 9541510-31-2025 08:11-0400 Diastolic blood mm[Hg]Gerry Ball DO Work Phone: [phone] [place], [place] 9541510-31-2025 08:11-0400 Heart rate83 /minBenjamin Ball DO Work Phone: [phone] [place], [place] 954[address]10-31-2025 08:11-0400 Respiratory rate18 /minBenjamin Ball DO Work Phone: [phone] [place], [place] 9541510-31-2025 08:11-0400 SaO2% (BldA) [Mass fraction]96 %Gerry Ball DO Work Phone: [phone] [place], [place] 9541510-31-2025 08:11-0400 Systolic blood qhidnqli755 mm[Hg]Gerry Ball DO Work Phone: [phone] [place], [place] 9541510-22-2025 11:15-0400 Body usmwjsvdjel21.6 [degF]Gerry Ball DO Work Phone: [phone] [place], [place] 9541510-22-2025 11:15-0400 Diastolic blood vmihsitz96 mm[Hg]Gerry Ball DO Work Phone: [phone] [place], [place] 9541510-22-2025 11:15-0400 Heart rate76 /minBenjamin Ball DO Work Phone: [phone] [place], [place] 954[address]10-22-2025 11:15-0400 Respiratory rate17 /minBenjamin Ball DO Work Phone: [phone] [place], [place] 954[address]10-22-2025 11:15-0400 SaO2% (BldA) [Mass fraction]98 %Gerry Ball DO Work Phone: [phone] [place], [place] 954[address]10-22-2025 11:15-0400 Systolic blood nkzawlja627 mm[Hg]Gerry Ball DO Work Phone: [phone] [place], [place] 954[address]10-22-2025 06:07-0400 Body frhjue293.2 kgBenjamin Ball DO Work Phone: [phone] [place], [place] 954[address]10-21-2025 20:18-0400 Body twypcewfaox27.5 [degF]Gerry Ball DO Work Phone: [phone] [place], [place] 9541510-21-2025 20:18-0400 Diastolic blood jldislts93 mm[Hg]Gerry Ball DO Work Phone: [phone] [place], [place] 9541510-21-2025 20:18-0400 Heart rate80 /minBenjamin Ball DO Work Phone: [phone] [place], [place] 9541510-21-2025 20:18-0400 Respiratory rate18 /minBenjamin Ball DO Work Phone: [phone] [place], [place] 9541510-21-2025 20:18-0400 SaO2% (BldA) [Mass fraction]99 %Gerry Ball DO Work Phone: [phone] [place], [place] 9541510-21-2025 20:18-0400 Systolic blood mm[Hg]Gerry Ball DO Work Phone: [phone] [place], [place] 9541510-21-2025 02:58-0400 Body viqseb096.96 cmBenjamin Ball DO Work Phone: [phone] [place], [place] 9541510-21-2025 02:58-0400 Body .1 kgBenjamin Ball DO Work Phone: [phone])[address] [place], [place] 9541508-25-2025 13:35-0400 Body .96 cmBenjamin Ball DO Work Phone: [phone])[address] [place], [place] 9541508-25-2025 13:35-0400 Body mass index (BMI) [Ratio]29.3 kg/r3Udzgkaml Ball DO Work Phone: [phone])[address] [place], [place] 9541508-25-2025 13:35-0400 Body viowzvgxjfp42.7 [degF]Gerry Ball DO Work Phone: [phone] [place], [place] 9541508-25-2025 13:35-0400 Body uuuxzm875.58 kgBenjamin Ball DO Work Phone: [phone] [place], [place] 9541508-25-2025 13:35-0400 Diastolic blood fopdrokx76 mm[Hg]Gerry Ball DO Work Phone: [phone])[address] [place], [place] 9541508-25-2025 13:35-0400 Heart rate77 /minBenjamin Ball DO Work Phone: [phone])[address] [place], [place] 9541508-25-2025 13:35-0400 Respiratory rate18 /minBenjamin Ball DO Work Phone: [phone] [place], [place] 9541508-25-2025 13:35-0400 SaO2% (BldA) [Mass fraction]100 %Gerry Ball DO Work Phone: [phone])[address] [place], [place] 9541508-25-2025 13:35-0400 Systolic blood sslpexbj384 mm[Hg]Gerry Ball DO Work Phone: [phone])[address] [place], [place] 9541506-27-2025 08:37-0400 Body uefznr735.96 cmBenjamin Ball DO Work Phone: [phone])[address] [place], [place] 9541506-27-2025 08:37-0400 Body mass index (BMI) [Ratio]28.9 kg/e5Wwxibmvh Ball DO Work Phone: 1(318)[address] [place], [place] 9541506-27-2025 08:37-0400 Body moicqm762.11 kgBenjamin Ball DO Work Phone: [phone])[address] [place], [place] 9541506-27-2025 08:37-0400 Diastolic blood pvprpopl21 mm[Hg]Gerry Ball DO Work Phone: [phone])[address] [place], [place] 9541506-27-2025 08:37-0400 Heart rate73 /minBenjamin Ball DO Work Phone: [phone])[address] [place], [place] 954[address]06-27-2025 08:37-0400 Respiratory rate12 /minBenjamin Ball DO Work Phone: [facility]06-27-2025 08:37-0400 Systolic blood ztwefzzl535 mm[Hg]Gerry Ball DO Work Phone: [facility]05-28-2025 09:13-0400 Body imrqxl817.96 cmSum[facility]05-28-2025 09:13-0400Body mass index (BMI) [Ratio]29.2 kg/h9EytzsieuvSumma Health [facility] Campus05-28-2025 09:13-0400Body ymmmcu840.41 kgSumma Health [facility]05-28-2025 09:13-0400Diastolic blood onlizaii88 mm[Hg][facility] 10-29-2024 09:13-0400Heart rate64 /[facility] 10-29-2024 09:13-0400Respiratory rate16 /[facility] 10-29-2024 09:13-7908BeI3% (BldA) [Mass fraction]100 %[facility]05-28-2025 09:13-0400Systolic blood snnreise587 mm[Hg][facility]05-15-2025 08:23-0400Diastolic blood jmoooqnu14 mm[Hg]AILEEN MELISSA [facility]05-15-2025 08:23-0400Mean blood mm[Hg]AILEEN MELISSA [facility]05-15-2025 08:23-0400Systolic blood djekjkcv373 mm[Hg]AILEEN MELISSA [facility]05-15-2025 08:10-0400Blood Pressure LocationJENNIFER MELISSA [facility]05-15-2025 08:10-0400Body qtvxxhaahmi68.06 [degF]AILEEN MELISSA [facility]05-15-2025 08:10-0400Diastolic blood ultrqcnr99 mm[Hg]AILEEN DUKES [facility]05-15-2025 08:10-0400Heart rate74 /minJENNIFER MELISSA [facility]05-15-2025 08:10-0400Respiratory rate16 /minJENNIFER MELISSA [facility]05-15-2025 08:10-0400Systolic blood nrarutye612 mm[Hg]AILEEN DUKES [facility]02-26-2025 08:30-0500Body srcrdu106.96 cmSum[facility]02-26-2025 08:30-0500Body mass index (BMI) [Ratio]29.1 kg/x6PfjjkrkqpSum[facility] Health [facility]02-26-2025 08:30-0500Body fvuhjq281.96 kgSumma Health [facility]02-26-2025 08:30-0500Diastolic blood cqvfodlb07 mm[Hg] [facility]02-26-2025 08:30-0500Heart rate78 /[facility]02-26-2025 08:30-0500Respiratory rate12 /[facility]02-26-2025 08:30-0500Systolic blood kemxpwep980 mm[Hg] [facility]02-17-2025 14:37-0500Body zspydo217.96 cm [facility]02-17-2025 14:37-0500Body mass index (BMI) [Ratio]29.4 kg/g2QcfklwbmvSumma Health [facility]ton Campus02-17-2025 14:37-0500Body ulybcw247.87 kgSumma Health [facility]02-17-2025 14:37-0500Diastolic blood omwjfmcj61 mm[Hg][facility]02-17-2025 14:37-0500 Heart rate76 /[facility]02-17-2025 14:37-0500 Respiratory rate16 /[facility]02-17-2025 14:37-0500 SaO2% (BldA) [Mass fraction]98 %[facility]02-17-2025 14:37-0500Systolic blood zswmvqbu293 mm[Hg][facility] 05-05-2024 14:43-0500Body .88 cmSum[facility] 05-05-2024 14:43-0500Body mass index (BMI) [Ratio]30.4 kg/a8SosbxrtthSumma Health [facility] Campus12-02-2024 14:43-0500Body ktjoibpifdu29.7 [degF][facility]12-02-2024 14:43-0500Body luqorx999.6 kgSumma Health [facility]12-02-2024 14:43-0500Diastolic blood lzifpnnr80 mm[Hg][facility]12-02-2024 14:43-0500Heart rate83 /[facility]12-02-2024 14:43-0500Respiratory rate16 /[facility]12-02-2024 14:43-8256TpT8% (BldA) [Mass fraction]100 %[facility]12-02-2024 14:43-0500Systolic blood aieybbwg679 mm[Hg] [facility]11-11-2024 11:48-0500Blood Pressure Location Jenaro HANSEN [facility]11-11-2024 11:48-0500Diastolic blood ewkcbdqi73 mm[Hg]Jenaro HANSEN [facility]11-11-2024 11:48-0500Heart rate86 /Alona HANSEN [facility]11-11-2024 11:48-0500Respiratory rate16 /Alona HANSEN [facility]11-11-2024 11:48-0500Systolic blood yhknhnss547 mm[Hg]Jenaro HANSEN [facility]10-28-2024 08:30-0400Body szicdh753.88 cmSumma Health [facility]10-28-2024 08:30-0400Body mass index (BMI) [Ratio]30.4 kg/p8KuatsrqynSumma Health Barberton Campus10-28-2024 08:30-0400Body cycuap270.66 kgSumma Health [facility] Campus10-28-2024 08:30-0400Diastolic blood ovwdmgau74 mm[Hg] [facility]10-28-2024 08:30-0400Heart rate80 /[facility]10-28-2024 08:30-0400Respiratory rate12 /[facility]10-28-2024 08:30-0400Systolic blood fqucqtec737 mm[Hg] [facility]06-26-2024 08:37-0400Body .88 cm [facility]06-26-2024 08:37-0400Body mass index (BMI) [Ratio]29.6 kg/t0ZweejfmnySumma Health [facility]ton Campus06-26-2024 08:37-0400Body mvixky79.05 kgSumma Health [facility] Campus06-26-2024 08:37-0400Diastolic blood czaegusc90 mm[Hg][facility]06-26-2024 08:37-0400 Heart rate75 /[facility]06-26-2024 08:37-0400 Respiratory rate12 /[facility]06-26-2024 08:37-0400 Systolic blood erkytokg585 mm[Hg][facility]05-31-2024 11:53-0400Body .88 cmSum[facility]05-31-2024 11:53-0400Body mass index (BMI) [Ratio]31.1 kg/x0LgenmtinhSumma Health [facility] Campus05-31-2024 11:53-0400Body jtqfow971.01 kgSumma Health [facility] 11-02-2023 11:53-0400Diastolic blood lzovkfjg49 mm[Hg][facility]05-31-2024 11:53-0400Heart rate60 /[facility] 11-02-2023 11:53-0400Respiratory rate12 /[facility] 11-02-2023 11:53-0400Systolic blood urxqriue519 mm[Hg][facility]03-26-2024 15:35-0400Diastolic blood mm[Hg]DO Gerry [employer] Work Phone: [phone]03-26-2024 15:35-0400 Heart rate61 /minDO Gerry Ball Work Phone: [phone](675)958-[address] [place], [place] 6206303-26-2024 15:35-0400 Respiratory rate14 /minDO Gerry Ball Work Phone: 1([phone])694-[address] [place], [place] 6206303-26-2024 15:35-0400 SaO2% (BldA) [Mass fraction]97 %DO Gerry Ball Work Phone: [phone]03-26-2024 15:35-0400 Systolic blood bagybdkv644 mm[Hg]DO Gerry Ball Work Phone: [phone]03-26-2024 14:48-0400 Body xnsiofcsxrl24 [degF]DO Gerry Ball Work Phone: [phone])068-[address] [place], [place] 6206303-26-2024 14:23-0400 Inhaled oxygen flow rate8 L/minDO Gerry Ball Work Phone: [phone] [place], [place] 6206303-26-2024 13:02-0400 Body mass index (BMI) [Ratio]30.4 kg/m2DO Gerry Ball Work Phone: [phone]03-26-2024 12:21-0400 Body .96 cmDO Gerry Ball Work Phone: [facility]03-26-2024 12:21-0400 Body irmpyn995.5 kgDO Gerry Ball Work Phone: [facility]02-26-2024 08:30-0500 Body uoywxw081.42 cmSumma [facility]02-26-2024 08:30-0500Body mass index (BMI) [Ratio]31.6 kg/a4BjvwaimnySumma Health [facility] Campus02-26-2024 08:30-0500Body rltuhk882.86 kgSumma Health [facility]02-26-2024 08:30-0500Diastolic blood kihofmmh24 mm[Hg][facility] 07-30-2023 08:30-0500Heart rate80 /minSumma Health Barberton Campus 07-30-2023 08:30-0500Respiratory rate16 /[facility] 07-30-2023 08:30-0500Systolic blood owpbqgih649 mm[Hg][facility]10-24-2023 08:30-0400Body tufvbm516.42 cmBenjamin Ball Other [facility] [employer] Other [phone] 08:30-0400Body mass index (BMI) [Ratio] 30.13 kg/s5Mqheogfj Ball Other [facility] Other 10-24-2023 08:30-0400Body .6 kgBenjamin Ball Other [employer] Other 10-24-2023 08:30-0400Diastolic blood lryuqwzy74 mm[Hg] Gerry Ball Other [employer] Other 10-24-2023 08:30-0400Respiratory rate12 /minBenjamin Ball Other [facility]Data[employer] Other 10-24-2023 08:30-0400Systolic blood mm[Hg] Gerry Chang Other [facility] [employer] Other [phone] 12:40-0400Blood Pressure LocationPatrickindra HANSEN [facility]10-31-2022 12:40-0400Diastolic blood owletcpv08 mm[Hg]Jenarorussell HANSEN [facility]10-31-2022 12:40-0400Heart rate76 /minPatrick HANSEN [facility]10-31-2022 12:40-0400Respiratory rate16 /minPatrick JADE [facility]10-31-2022 12:40-0400Systolic blood czxvgcwu391 mm[Hg]Jenaro HANSEN [facility] Encounters Encounter DateEncounter TypeCare ProviderFacilityStart: [id number] Jenaro HANSENFacility:[facility]: [id number] R WATERS [facility]: 04-03-2025 End: 88-91-8785gkbbkqjvtxHujksibm Ball DO Work Phone: -[facility] ClinicStart: 04-03-2025 End: 64-59-8961Kcashvm encounter procedureBenmatteoberna Ball DO-[facility] Work Phone: Start: 04-02-2025 End: 14-26-7106Ecbrkz flowsheetNatalie A Felter SITE LEADER-PERSONNEL TECHNICIAN Work Phone: [facility]ermatologyStart: 04-02-2025 End: 80-16-1118Dblphl flowsheetNatalie A Felter SITE LEADER-PERSONNEL TECHNICIAN Work Phone: [facility] [place] DermatologyStart: 04-02-2025 End: 84-55-8405Ltlvrw outpatient visit 15 minutesNatzaynab Edward Bergmanto SITE LEADER-PERSONNEL TECHNICIAN Work Phone: noms Nanette DermatologyComment on above:Actinic keratosis; Seborrheic keratosis; Melanocytic nevus of right upper extremity; Melanocytic nevus of left upper extremity; Capillary angioma; Lentigines; History of SCC (squamous cell carcinoma) of skin; Neoplasm of unspecified behavior of bone, soft tissue, and skinStart: 04-02-2025 End: 19-75-6565ezpnezsdygFRSJDQC A FELTERNot AvailableStart: 81-74-8995Yix- patient / Non-visitCatherine Brown SUPPLY CHAIN SPECIALIST-[facility] Work Phone: Start: 03-24-2025 End: 34-28-0114Tebbygpuui and management of inpatientAndrei Jeff DOYLE-4 [facility] Work Phone: Start: 03-23-2025 End: 54-96-7200kbttwdwxqkZmpcuiqk Bernardo DO Work Phone: -[facility] [place] [facility]ospStart: 03-23-2025 End: 77-77-7540Tlsevtwk ReferredGuillermo Araya DO-[facility] Start: 43-01-1047Fgw-patient / Non-visitGuillermo Araya DO-[facility] Work Phone: Start: 03-20-2025 End: 50-49-0303dkgbnksmmjLxlfkuto Bernardo DO Work Phone: -[facility] Medical ClinicStart: 03-20-2025 End: 96-52-8486Cugvxkh encounter procedureBenjamin Ball DO-[facility] Work Phone: Start: 02-05-2025 End: 95-42-7497uonbcqnsreJjtlfqfh Ball DO Work Phone: [facility] Work Phone: Start: 02-05-2025 End: 42-21-4475Ikqewjr encounter procedureBenkamini Chang DO-[facility] Work Phone: Start: 01-26-2025 End: 75-64-0135rstjakclcmCkcuhaoc Ball DO Work Phone: [facility] Work Phone: Start: 01-26-2025 End: 13-52-3034Dfjtpaj encounter procedureVaishali Howell MD-[facility] Work Phone: Start: 68-71-9631Ijl-patient / Non-visitVaishali Howell MD -[facility] Work Phone: Start: 01-02-2025 End: 70-75-9452kbflpkkholEuvusocz Ball DO Work Phone: [facility] Work Phone: Start: 01-02-2025 End: 73-22-4327Xctfspk encounter procedureBenmatteomin Bernardo DO-[facility] Work Phone: Start: 11-28-2024 End: 69-12-1507ztcblusfsrKbacgrcv Ball DO Work Phone: [facility] Work Phone: Start: 11-28-2024 End: 68-12-6090Rypiehj encounter procedureBenkamini Chang DO-[facility] Work Phone: Start: 11-04-2024 End: 48-41-9867oeioccendoTwjnhmd R WATERSFacility:CD:[id number]: 10-29-2024 End: 30-73-5187govczexqvdBjhhpxoeh [facility] Work Phone: Start: 10-29-2024 End: 96-37-0325Yrpbtir encounter procedureMargarita Physician Group-[facility] Work Phone: Start: 09-18-8272Wfo-patient / Non-visitMargarita Physician Group-[facility] Work Phone: Start: 60-87-8366Tmi-patient / Non-visitFirelands Physician GroupFormerly [facility] Work Phone: Start: 10-16-2024 End: 52-23-8347Igc Drop offJENNIFER Mackenzie MELISSA [facility] Start: 10-16-2024 End: 74-69-8480gkepgzszloZW-C AILEEN DUKESFacility:FTMCStart: 10-16-2024 End: 90-85-4870Nlojnuv encounter procedureJELIZ Mann MELISSA [facility] Kay[facility] start: 42-78-7294Cxu-patient / Non-visitFirbutlers Physician [facility] Work Phone: Start: 10-06-2024 End: 56-02-6820aaenzsqhepYqfdqdd R WATERSFacility:FTMCStart: 10-06-2024 End: 48-97-8834Qos Drop offPacarlos HANSEN [facility] Start: 10-06-2024 End: 06-19-5060zlqsrsrdtpNheipgv R WATERSFacility:EU BellevueStart: 09-29-2024 Non-patient / Non-visitFirbutlers Physician [facility] Work Phone: Start: 07-30-2024 End: 63-09-7518pkpylgqykpFqobemhcdMarietta Memorial Hospital Work Phone: Start: 07-30-2024 End: 87-51-4938Hjpzxnv encounter procedureScotland Memorial Hospitals Physician GroupFostoria City [facility] Work Phone: Start: 07-21-2024 End: 13-77-6200almoxfddhjUspywhiilMarietta Memorial Hospital Work Phone: Start: 07-21-2024 End: 79-48-4391Tbxrovc encounter procedureFircarilion [facility] Physician [facility] Work Phone: Start: 55-18-7781Wjd-patient / Non-visitFirelands Physician Group-[facility] Work Phone: Start: 06-13-2024 End: 58-62-6032wzdndtlmyqFdidhfeebMarietta Memorial Hospital Work Phone: Start: 06-13-2024 End: 20-44-3098Pplnsyb encounter procedureFircarilion roanoke community hospital Physician Group-[facility] Work Phone: Start: 05-13-2024 End: 54-42-6620Vhdvfrb encounter procedureNov[facility] Phys[facility] Work Phone: Start: 05-05-2024 End: 84-21-5868Vduhoij encounter procedureNovant Health [facility] Physician [facility] Work Phone: Start: 04-14-2024 End: 55-05-8579xumbflmwmnLNLFPQPC BERNARDOFacility:EU BellevueStart: 04-14-2024 End: 51-42-7273Utfnfmk encounter procedurePacarlos HANSEN [facility] [place] start: 17-87-5629Njn-patient / Non-visitFirelands Physician Group-[facility] Work Phone: Start: 76-99-6596Yxg-patient / Non-visitFirelands Physician Group-[facility] Work Phone: Start: 96-65-6363Zdy-patient / Non-visitFirelands Physician Group-[facility] Work Phone: Start: 03-31-2024 End: 65-99-4229egrdekrrfgXzecndgdgMarietta Memorial Hospital Work Phone: Start: 03-31-2024 End: 99-65-0858Qmzshyi encounter procedureNovant Health [facility] Physician [facility] Work Phone: Start: 70-09-8633Xmrshvx encounter procedureTrumbull Regional Medical Centertart: 03-21-2024 End: 61-24-6188Czpqoi flowsheetNatalie A Felter SITE LEADER-PERSONNEL TECHNICIAN Work Phone: noms SWS DERMStart: 03-21-2024 End: 89-45-2517Kvzmsu flowsheetNatalie A Felter SITE LEADER-PERSONNEL TECHNICIAN Work Phone: noms SWS DERMStart: 03-21-2024 End: 93-60-8841Cmiaon outpatient visit 15 minutesNatalie A Felter SITE LEADER-PERSONNEL TECHNICIAN Work Phone: noms SWS DERMComment on above:Melanocytic nevus of right upper extremity; Melanocytic nevus of left upper extremity; Seborrheic keratosis; Actinic keratosis; Capillary angioma; History of SCC (squamous cell carcinoma) of skinStart: 02-05-2024 End: 09-81-6941ddbfzqemddUemghmgepRegency Hospital [facility] Work Phone: Start: 02-05-2024 End: 53-09-4008Yxuavpv encounter procedureNov[facility] Health [facility] Physician [facility] Work Phone: Start: 12-31-2023 End: 82-47-8772guwjrbfwzgIwrzyfgxcRegency Hospital [facility] Work Phone: Start: 12-31-2023 End: 27-50-1161Typkvqm encounter procedureNovant Health [facility] Physician Group-[facility] Work Phone: Start: 81-34-9105Aku-patient / Non-visitFircarilion ro[facility] community hospital Physician Group-[facility] Work Phone: Start: 11-28-2023 End: 48-99-7121aftnqteiryEwdqqpnahRegency Hospital [facility] Work Phone: Start: 11-28-2023 End: 61-54-8848Ysrnmtk encounter procedureFirelands Physician Group-[facility] Work Phone: Start: 11-02-2023 End: 34-59-4890wcvnsfxkxwYK Gerry Chang Work Phone: [facility] Work Phone: Start: 11-02-2023 End: 02-08-0520Ytertrx encounter procedureDO Gerry Chang Work Phone: [facility] Physician Group-[facility] Work Phone: Start: 09-12-2023 End: 76-76-9669mdqxwaviqpRL Gerry Chang Work Phone: [facility] Work Phone: Start: 09-12-2023 End: 53-61-5180Ywexzvs encounter procedureDO Gerry Chang Work Phone: [facility] Physician Group-[facility] Work Phone: Start: 08-28-2023 End: 44-80-8407Trmvzawzu to same day surgery centerDO Gerry Chang Work Phone: [facility] HealthStart: 08-28-2023 End: 19-23-2636gdiuktuotpAN Gerry Chang Work Phone: [facility] Work Phone: start: 08-22-2023 End: 68-60-1719ucfjghzjqpHJ Gerry Chang Work Phone: [facility] Work Phone: Start: 08-22-2023 End: 63-15-1400Vmuzisc encounter procedureDO Gerry Chang Work Phone: [facility] Oft-[employer]os-Wmdglwvo Testing Work Phone: start: 08-10-2023 End: 15-09-3639Swlrwlw encounter procedureDO Gerry Chang Work Phone: [facility] Physician Group-[facility] Work Phone: start: 80-99-3821Trl-patient / Non-visitDO Gerry Chang Work Phone: [facility] Physician Group-[facility] Work Phone: Start: 07-30-2023 End: 67-72-4655yvkieenztqXicwzrifxMarietta Memorial Hospital Work Phone: Start: 07-30-2023 End: 38-54-5381Zndlrrs encounter procedureNov[facility] Health [facility] Physician Group-[facility] Work Phone: Start: 90-99-8588Whk-patient / Non-visitFircarilion [facility] community hospital Physician Group-[facility] Work Phone: Start: 07-03-2023 End: 71-54-1673xolakquwtiBovdufou Ball Other [employer] Other Start: 78-29-2556Gsmulto evaluation of patient and reportBenkamini Helm [facility] ClinicStart: 03-29-2023 End: 92-89-3050xydumhhppcOedkikpi Ball Other [employer] Other Start: 77-26-4115Poqmnjqke encounterBenkamini Chang Medical ClinicStart: 03-27-2023 End: 57-44-2768sgfvethoxgEvcgehby Ball Other [employer] Other Start: 41-10-4536Wtuxiog encounter procedureBenkamini SwartzG [facility] ClinicStart: 03-02-2023 End: 92-60-4792yonvuhkgyaYdtmcnqt Ball Other [employer] Other Start: 81-71-1621Clzift outpatient visit 15 minutes Gerry Alicja [facility] Medical ClinicStart: 76-76-8532Jfuxyerms encounterBenjamin MaximeG [facility] ClinicStart: 02-06-2023 End: 15-91-2194clrswascphYumjdhtq Ball Other [employer] Other Start: 72-34-7323Gnghkrh evaluation of patient and reportBenjamin BallFPG [facility] ClinicStart: 70-45-7661Pktaiwqhq encounter Gerry BallFP[facility] ClinicStart: 01-01-2023 End: 27-05-4411kacfmwdaeeSxspkddi Ball Other [employer] Other Start: 85-72-2955Tmqqoni evaluation of patient and reportBenjamin BallFP[facility] ClinicStart: 11-27-2022 End: 16-53-0539ehoqndmdkkKopogjcs Ball Other [employer] Other Start: 07-40-6922Swjomcw evaluation of patient and reportBenjamin BallFPG [facility] ClinicStart: 10-18-2022 End: 34-92-8517mwnqkltypqPW GERRY BALLFacility:W0Najsy: 09-06-2022 End: 67-06-2451ciqsaxqbosLG GERRY BALLFacility:K1Juqjm: 09-04-2022 End: 82-29-6869vrtfeguigwUkltgvrs Ball Other [employer] Other Start: 82-87-6138Sxjwocpvq encounterBenjamin BallFPG [facility] ClinicStart: 08-28-2022 End: 58-07-9597dkdxzlbhqbJejuyhmh Ball Other [employer] Other Start: 94-20-6645Tmgrcxb evaluation of patient and reportBenjamin BallFPG [facility] ClinicStart: 07-27-2022 End: 36-47-3352gehtoeapzmOxdhguxb Ball Other [employer] Other Start: 12-23-9737Kywfvzr evaluation of patient and reportBejonathan Chang Medical ClinicStart: 07-26-2022 End: 90-23-1712irtedbjjkxUP GERRY BALLFacility:S4Nqaje: 07-07-2022 End: 16-69-1536lrcauxlwouKtdmzlkg Ball Other noIn[employer]ative [employer]s [employer] Other Start: 62-76-5948Plustpgyq encounterBejonathan Chang Medical ClinicStart: 06-26-2022 End: 45-16-3660clrbjrhzmxNelmichq Ball Other no[facility]ign[facility] Other Start: 40-10-4594Kyadbic evaluation of patient and reportGerry Chang Medical ClinicStart: 06-14-2022 End: 61-76-5344faauxwfprlPF GERRY BALLFacility:A2Slrfa: 05-17-2022 End: 81-20-6963kyyhmlqtaiYA GERRY BALLFacility:X8Kubyc: 05-03-2022 End: 00-70-3750yixurxvsxzSS GERRY BALLFacility:P3Djqzb: 04-05-2022 End: 34-45-3974vzdbctcaxbMP GERRY BALLFacility:J7Gzpnt: 04-03-2022 End: 38-46-1139Wvsywak encounter procedureJenaro HANSEN [facility] start: 78-86-3486Bdbgu health examinationBejonathan Chang Other nofulton state hospital [employer]ign[facility] Other Start: 02-48-4083Seu-procedure evaluation check Gerry Chang Other [employer] Other Start: 87-31-3858zrepohxtjxDP GERRY BALLFacility:H1 Start: 57-77-3804Zrlhzzaqo encounterKendall Honeycutt APRN.CNP Work Phone: Hematology/OncologyComment on above:Lab OrdersStart: 03-03-2022 End: 17-33-6948rlmzinnxuvKX MICHAEL E GRILLIS .Facility:M2Zpdko: 03-03-2022 End: 95-61-1846pgdbrgjrtmKA BENJAMIN BALLFacility:S6Mmvmj: 02-27-2022 End: 62-46-3140kiobcbsozpNymrs [address] [place] Work Phone: Hematology/OncologyComment on above:Obstruction of central line, initial encounter (HCC) (Primary Dx); Follicular lymphoma, unspecified follicular lymphoma type, unspecified body region (HCC)Start: 81-17-1705Hndnosynx encounterFeagustina Biswas english language learner teacher/OncologyComment on above:Treatment PlanningStart: 43-10-6571Laydqvjaw encounterAileen Jenkins RNHematology/OncologyComment on above:port issuesStart: 02-07-2022 End: 06-47-7594nsmkuairurWN BENJAMIN BALLFacility:I4Psbzy: 02-07-2022 End: 88-40-2723awfvcrmusaZH BENJAMIN BALLFacility:W4Taphw: 12-27-2021 End: 21-68-5339eixrgkbqsbOX BENJAMIN BALLFacility:P4Gzlda: 11-17-2021 End: 78-95-7274xsqohfuvnlGS BENJAMIN BALLFacility:O6Tqfmp: 11-16-2021 End: 30-31-3805zbisyriubuUZ MICHAEL E GRILLIS .Facility:Q4Djodz: 11-15-2021 End: 89-72-3450matpsnawkoGH BENJAMIN BALLFacility:X9Ilyia: 24-23-2701ianiinirni DR BLADIMIR REYES .Facility:A2Knram: 11-09-2021 End: 34-57-2619lwfeiwjnscOW DAVID V WESTFacility:Z1Jeljb: 03-23-2021 End: 30-84-1353jplnwvikgpCVUEH KARAMLORegency Hospital Cleveland Westveland Procedures DateProcedureProcedure DetailPerforming ClinicianStart: 04-02-2025 End: 58-72-8002BLIS / NAIL BIOPSYNatalie A Felter SITE LEADER-PERSONNEL TECHNICIAN Work Phone: Start: 70-27-3588WVJYILUHFBL SKIN LESIONNatalie A Felter SITE LEADER-PERSONNEL TECHNICIAN Work Phone: Start: 58-80-2341Bejlw X-ray abdomenBenjamin Ball DO Work Phone: Start: 41-25-9505Uivtg X-ray abdomenBenjamin Ball DO Work Phone: Start: 22-09-1088Uguve cultureBenjamin Ball DO Work Phone: Start: 57-97-4118DVXESRCLNJZ SKIN LESIONNatalie A Felter SITE LEADER-PERSONNEL TECHNICIAN Work Phone: Start: 36-85-4488Plexiovp of lesion of cheekDO Gerry Chang Work Phone: Start: 65-24-3300SYW screeningDR GERRY BERNARDOComment on above:Performed By: #### PSAD #### [facility] [address] [place] [address] Dr. Dave DuffyStart: 44-03-2682Djhfa depression screening assessmentAileen Jenkins RNStart: 59-34-9347SniyhparyzjDzayvtep Long RNStart: 12-85-8007Dvybdgkbxg Jenaro ArthaYantra Start: 77-09-1915Kbutpifddf studiesPaRange Fuelskindra ArthaYantra Start: 93-02-4427QmgehjoidsGdqupip HANSEN Start: 60-14-1505YdadesymvvgagvbVknajex HANSEN ColonoscopyPatrick ArthaYantra Depression screeningBenjamin Ball Other EsophagogastroduodenoscopyPaRange Fuelsk ArthaYantra H/O: artificial jointBenjamin Ball Other H/O: artificial jointBenjamin Ball Other LaparoscopyPatrick JADE Partial resection of colonPatrick JADE Total knee replacementPatrick JADE Transurethral biopsy prostatePacarlos HANSEN Transurethral prostatectomyPacarlos HANSEN Plan of Treatment DateCare ActivityDetailAuthorStart: 96-81-2075FZsM/Tdap/Td Vaccines (4 - Tdap) DTaP/Tdap/Td Vaccines (4 - Tdap)NOM HealthcareStart: 10-01-2025 End: 74-29-2626Ohtuuvb encounter mlktzbihd98/30/2026 8:35 AM EDT Office Visit [facility] [address] [place] [address] Ashley Manzano, SITE LEADER-PERSONNEL TECHNICIAN [address] [place] [address] ROBERTO Morales DermatologyStart: 89-38-8967NAQHD-19 Vaccine ( season)COVID-19 Vaccine ( season)NOM HealthcareStart: 76-44-1329FdmzowancTrumbull Regional Medical Centertart: 04-02-2025 End: 36-16-7612Bjaktdv encounter procedureNOMS SWS DERMComment on above:Arrived Start: 58-64-5622JwjyoxswpKing'S [facility] CenterStart: 17-52-4348ApbwritndTrumbull Regional Medical Centertart: 93-24-2616GduwsqevxKing'S Daughters Medical [facility] CenterStart: 60-94-8190KldxugdezKing'S Daughters [facility] CenterStart: 01-99-8141UndstcepyKing'S Daughters [facility] CenterStart: 32-39-1354TdlcguewiKing'S Daughters Medical [facility] CenterStart: 00-61-7569QpgosctgoKing'S Daughters Medical [facility] CenterStart: 73-28-1524UatfezaraTrumbull Regional Medical Centertart: 84-70-2290Hupoj X-ray abdomenXR abdomen min 2VTrumbull Regional Medical Centertart: 03-25-2025 End: 37-38-2580AnwuejexfTrumbull Regional Medical Centertart: 83-32-4296Yavmlblf admissionTrumbull Regional Medical Centertart: 09-93-9803Wodztpad to general surgeonTrumbull Regional Medical Centertart: 70-48-2823JokgfcaerTrumbull Regional Medical Centertart: 03-23-2025 End: 08-61-9571Fcnhi cultureTrumbull Regional Medical Centertart: 03-23-2025 Bacteria identified in Urine by CultureUrine CultureTrumbull Regional Medical Centertart: 03-21-2024 End: 58-28-5124Conqtqk encounter fjkaqpgrm97/18/2024 8:30 AM EDT [facility] [address] [place] [phone] Ashley Manzano APRN-PERSONNEL TECHNICIAN [address] [place] [address] ArrivedNOMS [facility] DERMComment on above: ArrivedStart: 59-52-6924Zbnewfkqp vaccinationInfluenza Vaccine (#1)NOMS HealthcareStart: 62-29-6724EghwrnxnjTrumbull Regional Medical Centertart: 08-28-2023 [facility] Centertart: 11-68-5061HBDYASCOVM CANCER SCREENING COLORECTAL CANCER SCREENINGMercy Health Springfield Regional Medical Centertart: 57-52-5168RTOCJ OCCULT BLOOD FECAL OCCULT BLOODMercy Health Springfield Regional Medical Centertart: 03-13-2022 End: 66-24-0946CUJ W Auto Differential panel - BloodCBC + DIFF Lab Routine Non- Hodgkin's lymphoma, unspecified body region, unspecified non-Hodgkin lymphoma type (HCC) Expected: 03/13/2022, Expires: [facility]/2022[facility] Work Phone: Comment on above:Expected: 03/13/2022, Expires: 05/13/2022tart: 03-13-2022 End: 65-79-9656Baffzcdmqetzb metabolic 2000 panel - Serum or PlasmaCOMP METABOLIC PANEL Lab Routine Non-Hodgkin's lymphoma, unspecified body region, unspecified non-Hodgkin lymphoma type (HCC) Expected: 03/13/2022, Expires: 05/13/2022[facility] Work Phone: Comment on above:Expected: 03/13/2022, Expires: 05/13/2022tart: 03-13-2022 End: 79-52-1775Ccznwis dehydrogenase [Enzymatic activity/volume] in Serum or PlasmaLD LACTATE DEHYDRO Lab Routine Non-Hodgkin's lymphoma, unspecified body region, unspecified non-Hodgkin lymphoma type (HCC) Expected: 03/13/2022, Expires: 05/13/2022[facility] Work Phone: Comment on above:Expected: 03/13/2022, Expires: 05/13/2022tart: 45-99-4664Jvpiqpbci vaccinationINFLUENZA (#1)[facility] Start: 96-16-9686Aiujg depression screening assessmentDEPRESSION SCREENING [facility] Centertart: 67-04-3154HurrtqtvpuyEDPYWKOBKIVRezegiieg ClinicStart: 03-67-5049TGWYELO DIRECTIVE DISCUSSIONADVANCE DIRECTIVE DISCUSSIONMercy Health Springfield Regional Medical Centertart: 28-82-4581ZWPISPYPHI ASSESSMENTDEPRESSION ASSESSMENTMercy Health [facility] Regional Medical Centertart: 29-26-0446JXPAN-19 VACCINE (4 - Booster for Pfizer series)COVID-19 VACCINE (4 - Booster for Pfizer series)[facility] Centertart: 1992 COLOGUARD (FIT-DNA)COLOGUARD (FIT-DNA)[facility] Centertart: 06-50-1174SO COLONOGRAPHYCT COLONOGRAPHYMercy Health Springfield Regional Medical Centertart: 63-60-9421HKXVKKIDBXWNT SIGMOIDOSCOPYMercy Health [facility] Medical Centertart: 35-97-6044Xgzux microalbumin profile DTAP,TDAP,TD (1 - Tdap)[facility] Centertart: 12-37-0489BWZMEL PCP TEAM CHRONIC DISEASE VISITANNUAL PCP TEAM CHRONIC DISEASE VISITMercy Health Springfield Regional Medical Centertart: 86-54-5541Levtnljuu B surface antibody levelLDL CHOLESTEROLTrihealth Mccullough-Hy[facility] Memorial Hospital Start: 01-62-9181MXMPXVPIS C SCREENINGHEPATITIS C SCREENINGTrihealth Mccullough-[facility] Start: comp foot exam completedDIABETIC FOOT EXAMTrihealth Mccullough-[facility] Start: 20-09-8220Ibbhofmpd C antibody, confirmatory testDILATED RETINAL EXAM [facility] Centertart: 65-31-1413LPTDDAWIFZYC: 65+ (1 - PCV)PNEUMOCOCCAL: 65+ (1 - PCV)[facility] Centertart: 36-26-0818Bseavdlzam A1c/Hemoglobin.total in Blood EOY9LAqqezfqlw ClinicAnion gap measurementSumma Health Barberton Campus Basophils [#/volume] in Blood by Automated [facility] EastBasophils/100 leukocytes in Blood by Automated [facility] EastComprehensive metabolic 2000 panel - Serum or PlasmaSumma Health Barberton CampusDermatopathology examDermatopathology exam Pathology and Cytology Timed Neoplasm of unspecified behavior of bone, soft tissue, and skin Release Upon Ordering for 1 Occurrences starting 04/02/2025[facility] Work Phone: comment on above:Release Upon Ordering for 1 Occurrences starting 04/02/2025Eosinophils/100 leukocytes in Blood by Automated [facility] EastErythrocyte distribution width [Ratio] by Automated [facility] EastErythrocytes [#/volume] in Blood [facility] Barber[facility] CampusGlomerular filtration rate [Volume Rate/Area] in Serum, Plasma or Blood by CreatinineSumma Health Barberton Campus Hematocrit [Volume Fraction] of [facility] Children[facility] HospitalHemoglobin [Mass/volume] in [facility]'s HospitalLeukocytes [#/volume] corrected for nucleated erythrocytes in Blood by Automated counSumma Health Barberton CampusLeukocytes [#/volume] in BloodSumma Health Barberton CampusLymphocytes [#/volume] in Blood by Automated [facility] EastLymphocytes/100 leukocytes in Blood by Automated [facility] EastMCH [Entitic mass] by Automated [facility] EastMCHC [Mass/volume] by Automated [facility] EastMCV [Entitic volume] by Automated [facility] Monocytes [#/volume] in Blood by Automated [facility] EastMonocytes/100 leukocytes in Blood by Automated [facility] EastNeutrophils [#/volume] in Blood by Automated [facility] EastNeutrophils/100 leukocytes in Blood by Automated count [facility] CampusNucleated erythrocytes [Presence] in Blood by Automated [facility] EastPatient EducationKnow your Meds [facility] Work Phone: Patient referralKing'S Daughters [facility] Work Phone: Platelet mean volume [Entitic volume] in Blood by Automated countSumma Health Barberton CampusPlatelets [#/volume] in Blood [facility] CampusRenal function 1999 panel - Serum or Plasma [facility] CampusRenal function 1999 panel - Serum or Plasma [facility] CampusRenal function 1999 panel - Serum or Plasma [facility] CampusRenal function 1999 panel - Serum or Plasma [facility] Immunizations Immunization DateImmunizationNotesCare DgtyurbzFtogkeih33-29-7600kjlwnvmhj virus vaccine, unspecified formulationNatalie Felter SITE LEADER-PERSONNEL TECHNICIAN Work Phone: [facility]10-10-2023COVID-19 Vaccine Pfizer - Documentation Purposes OnlyGerry Chang Other [facility]10-10-2023influenza virus vaccine, unspecified formulationSumma Health Barberton Campus 35-48-5394Tlxmzikmb, Seasonal, Quadrivalent, AdjuvantedNatalie Felter SITE LEADER-PERSONNEL TECHNICIAN Work Phone: [facility] HealthYcbbuzggnw40-48-6506llihdbzuw, high dose seasonal, preservative-freeGerry Chang Other [employer] Other [id number] virus vaccine, split virus (incl. purified surface antigen)Gerry Chang Other [employer] Other [id number] virus vaccine, unspecified formulationSumma Health Barberton Campus09-22-2022Influenza, Seasonal, Quadrivalent, AdjuvantedNatalie Felter SITE LEADER-PERSONNEL TECHNICIAN Work Phone: [facility] HealthWqnyxthqdy96-82-2297NBXL-TdU-8 (COVID-19) mRNAMUL.ORD![id number] HANSEN [facility]04-12-2022SARS-CoV-2 mRNA (mhubhzdlolq-dqeb-gaipobw) vaccineReclutec [facility]09-24-2021influenza virus vaccine, split virus (incl. purified surface antigen)Gerry Chang Other [place] [employer] Other [id number] virus vaccine, unspecified formulationSum[facility]09-24-2021Seasonal trivalent influenza vaccine, adjuvanted, preservative freeAileen Jenkins [facility] 53-04-5484WTEK-CoV-2 (COVID-19) mRNA BNT-162b2 vaxJenaro HANSEN [facility] HospitalComment on above:Result Comment: 2024-04-14: [id number]-29 Vaccine Pfizer - Documentation Purposes OnlyGerry Chang Other [facility] CampusComment on above: Result Comment: 2024-04-14: [id number]-31 Vaccine Pfizer - Documentation Purposes OnlyGerry Chang Other [facility] CampusComment on above: Result Comment: 2024-04-14: HJL2705-81-1168lcofayblf virus vaccine, unspecified formulationNeDo It Original [facility]09-03-2020influenza, high-dose, quadrivalent vaccine (FLUZONE HIGH DOSE QUADRIVALENT)Aileen Jenkins [facility] HospitalNoquwm14-98-6547ojexqe vaccine Vladimir Jenkins [facility] HospitalUbeoxj38-73-4001mjprmn vaccine recombinant Aileen Jenkins [facility] HospitalSvpxnj07-65-6211hnaxkthco virus vaccine, split virus (incl. purified surface antigen)Gerry Chang Other [facility] Other [id number] virus vaccine, unspecified formulationSum[facility] Health [facility]10-23-2018influenza virus vaccine, split virus (incl. purified surface antigen)Gerry Chang Other [place] [employer] Other [id number] virus vaccine, unspecified formulationSum[facility] Health [facility]10-23-2018Seasonal trivalent influenza vaccine, adjuvanted, preservative freeAileen [facility] 29-66-7845ysizdjzrvj, tetanus toxoids and acellular pertussis vaccine, unspecified formulationGerry Chang Other [facility]11-09-2017influenza virus vaccine, split virus (incl. purified surface antigen)Gerry Chang Other [facility] [employer] Other [id number] virus vaccine, unspecified formulationSum[facility] Health [facility]11-09-2017influenza, high dose seasonal, preservative-freeRomannnifer [facility] HealthNcyoed70-17-9677idwondytd virus vaccine, split virus (incl. purified surface antigen)Gerry Chang Other [facility] [employer] Other [id number] virus vaccine, unspecified formulationSum[facility]10-12-2016influenza, high dose seasonal, preservative-freeRomannnifer [facility]11-06-2015 pneumococcal conjugate vaccine, 13 valentBejonathan Chang Other [facility]11-03-2015influenza virus vaccine, split virus (incl. purified surface antigen)Gerry Chang Other [facility] Other [id number] virus vaccine, unspecified formulationSum[facility] Health [facility]11-03-2015influenza, high dose seasonal, preservative-freeAileen Jenkins [facility]10-13-2014 pneumococcal Conjugate, unspecified formulation; Translations: [Need for prophylactic vaccination against Streptococcus pneumoniae (pneumococcus)] Gerry Chang Other [place] [employer] Other 150185-80-1843immebelirxpw polysaccharide vaccine, 23 valentBenmatteoberna Chang Other [facility]10-13-2014tetanus and diphtheria toxoids, adsorbed, preservative free, for adult use (5 Lf of tetanus toxoid and 2 Lf of diphtheria toxoid)Gerry Chang Other [facility]11-07-2013zoster vaccine, liveAileen Jenkins [facility] HospitalHlsjbr52-95-5866efbgpsglrq, tetanus toxoids and acellular pertussis vaccine, unspecified formulationGerry Bernardo Other [facility] Payers DatePayer CategoryPayerPolicy [id number] Health Insurance [id number] 2004Medicare [id number] [id number] 1960 Bhmk-[id number] 2.16.840.1.354080.3.57[id number] 2..840.1.574466.3.57[id number] 2.16.840.1.053113.3.57[id number] 2.16.840.1.093474.3.57[id number] 2.840.1.434678.3.579.2.34460-31-6725Uogfesl5893031 2.840.1.297365.3.579.[id number] 2.840.1.281619.3.57[id number] 2.840.1.012479.3.57[id number] 2.840.1.491900.3.579.[id number] 2.840.1.966289.3.579.2.56203-37-7816Lugdyth6458087 2.840.1.459760.3.579.2.80287-71-3634Cngucvt1082417 2.840.1.362275.3.579.2.94902-50-4579Moacihg4886035 2.840.1.372849.3.579.[id number] 2.840.1.968301.3.579.2.94596-33-5693Lujjkxm9034181 2.840.1.950196.3.579.2.56509-79-4039Ddizken7352404 2.840.1.635613.3.579.2.60300-74-6119Uaqazkm0031400 2.840.1.588233.3.57[id number] 2.840.1.065400.3.57[id number] 2.840.1.602353.3.579.2.[id number] 2.840.1.439889.3.579.2.[id number] 2.0.1.384304.3.57[id number] 2.0.1.217275.3.57[id number] 2..1.538191.3.579.2.61192-04-5591Rzgaaae53780340 2..1.088599.3.579.2.98816-58-0862Tcjvrsd81784907 2..1.427149.3.579.2.35688-93-6656Mvnizow37749800 2..1.621553.3.579.2.03278-08-3756Bzgxknn32592599 2..1.4956[id number]-[id number]-[id number]e County [id number] t1211i50-47up-6bw0-nkr8-t2396le1jbf0Acjvhhb9691997 2..1.319970.3.579.2.010Qzgjmeik146b0l6-g31i-8444-cm73-49ru34705951Vytewly [id number] 2.840.1.670329.3.579.2.621Wzmjgdm59391516 2..1.977497.3.579.2.531 Social History DateTypeDetailFacilityStart: 07-15-2012 End: 45-42-2125Lfacumd smoking status NHISNever smoked tobaccoTrihealth Mccull[facility] Start: 07-15-2012 End: 90-15-2201Aqamowq use and exposureSmokeless tobacco non-userMercy Health Springfield Regional Medical Centertart: 43-47-8041Mjtulix intakeCurrent non-drinker of alcohol (finding) [facility] Centertart: 27-13-9492Vfn Assigned At BirthNot on fileMercy Health Springfield Regional Medical Centertart: 02-11-2022 End: 24-74-5010Uqjibuyt to SARS-CoV-2 (event)Not sureMercy Health Springfield Regional Medical Centertart: 10-31-2023 End: 55-15-8708Ond Assigned At [facility] Hospitaltart: 98-67-1038Xre [facility]igned [facility]: 10-31-2023 End: 80-40-3408Tbadmyoep beverage intakeCurrent drinker of alcohol (finding)[facility] HealthcareStart: 10-31-2023 End: 83-18-0794Iowboqy of Social functionNOMS HealthcareStart: 59-66-3569Bdwbpcf CommentMonthly or lessNOMS HealthcareStart: 55-07-7569Gqypojn smoking status NeverExecutive Urology of St[facility] BellevueStart: 06-13-2024 End: 49-21-7866IkjPtwi (finding)[facility] Medical Equipment Procedure CodeEquipment CodeEquipment Original TextEquipment IdentifierDates1 each by Other route if neededBlood Sugar Diagnostic (Contour Next Test Strips) stripStart: 73-41-6259Yhrat Sugar Diagnostic (Contour Next Test Strips) strip Start: 06-16-2024 End: 96-87-3846Aunzk Sugar Diagnostic (Contour Next Test Strips) stripStart: 94-65-6604Xynnd Sugar Diagnostic (Contour Next Test Strips) stripStart: 06-16-2024 End: 02-37-0142Bwrsq Sugar Diagnostic (Contour Next Test Strips) stripStart: 27-82-3309Tkenv Sugar Diagnostic (Contour Next Test Strips) stripStart: 06-16-2024 End: 43-03-0163Qyzke Sugar Diagnostic (Contour Next Test Strips) stripStart: 66-16-2496Qpqhl Sugar Diagnostic (Contour Next Test Strips) stripStart: 06-16-2024 End: 14-00-9986Bucfw Sugar Diagnostic (Contour Next Test Strips) stripStart: 31-20-5232Pgbue Sugar Diagnostic (Contour Next Test Strips) stripStart: 06-16-2024 End: 28-52-0730Ujbiw Sugar Diagnostic (Contour Next Test Strips) stripStart: 99-69-3757Yriwd Sugar Diagnostic (Contour Next Test Strips) stripStart: 06-16-2024 End: 01-40-2464Ndwbd Sugar Diagnostic (Contour Next Test Strips) stripStart: 96-63-3136Ifktb Sugar Diagnostic (Contour Next Test Strips) stripStart: 06-16-2024 End: 04-84-2096Aeark Sugar Diagnostic (Contour Next Test Strips) stripStart: 46-10-0069Dohhb Sugar Diagnostic (Contour Next Test Strips) stripStart: 06-16-2024 End: 37-71-5347Imkwf Sugar Diagnostic (Contour Next Test Strips) stripStart: 06-16-2024 End: 70-17-9675Jitvu Sugar Diagnostic (Contour Next Test Strips) stripStart: 33-28-4643Seqbr Sugar Diagnostic (Contour Next Test Strips) stripStart: 06-16-2024 End: 46-12-8401Nxkzc Sugar Diagnostic (Contour Next Test Strips) stripStart: 06-16-2024 End: 32-81-0789Qdwns Sugar Diagnostic (Contour Next Test Strips) stripStart: 14-32-0810Rkmtf Sugar Diagnostic (Contour Next Test Strips) stripStart: 06-16-2024 End: 58-90-7815Uvxnv Sugar Diagnostic (Contour Next Test Strips) stripStart: 06-16-2024 End: 62-50-4106Qbuxa Sugar Diagnostic (Contour Next Test Strips) stripStart: 36-10-4854Ktcnz Sugar Diagnostic (Contour Next Test Strips) stripStart: 06-16-2024 End: 82-84-4500Wnlrh Sugar Diagnostic (Contour Next Test Strips) stripStart: 06-16-2024 End: 02-19-2025 Goals DatePatient GoalDesired Activity/State Functional Status XkwyUekzqwwfaiOlknpkMuhnntat67-51-3198Loychmmbgy statusPatient at Baseline [facility] Work Phone: 1(151) 183-450210372280-66-4082Fbxrdcbzua statusPatient at Baseline [facility] Work Phone: 1(533) 408-705205233825-71-0902Zrdgfmdihe StatusN/AExec[facility]11-11-2024Functional StatusN/A[facility]10-31-2022Functional StatusN/A [facility] Mental Status KhbkCrtirudpngYnzbhqNhyjjrjh43-47-8395Nghfcttux functionCognitive Status Patient at [facility] Work Phone: 1(862) 833-302710394616-07-1035Fcjjhjftw functionCognitive Status Patient at [facility] Work Phone: Clinical Notes 05-02-2019 to 04-02-2025 Note Date & AvrsJxkgGkadcrxr02-60-9468 History of Present illness Narrative* Ashley Manzano, SITE LEADER-PERSONNEL TECHNICIAN - 04/02/2025 8:35 AM EDT Images from [...] limited to risks of scarring, darker or prosthetics assistant pigmentary changes, recurrence, incomplete removal and infection. [...] x 0.9 cm Left tip of Nose Mckay papule - Lesion biopsy Type of biopsy: [...] 6 months skin check documented in this encounterCarondelet HealthHsuwbjduyq91-94-8485 [place] [address] General Surgery Progress Note Signed Patient: Eugenio Crews MR#: [id number] : 1945 Acct:[id number] Age/Sex: 79 / M Adm Date: 5 Loc: Room: [address] [place] [address] Type: ADM IN Attending Dr: Bryon Aguilar [...] 50 mls @ 100 mls/hr IV Q24H [facility] Last Admin: 03/25/25 04:31 Dose: 100 mls/hr Sodium Bicarbonate 100 meq/ (Dextrose) 1,100 mls @ 100 mls/hr IV .Q11H [facility] Stop: 03/24/26 12:59 Last Admin: 03/25/25 02:47 Dose: 100 mls/hr Insulin Aspart (Insulin Aspart 300 Units/3 Ml) 0 units SUBCUT Q6HR [facility]; Protocol Stop: 03/24/26 05:59 Last Admin: 03/25/25 06:08 Dose: Not Given Insulin Glargine (Insulin Glargine 300 Units/3 Ml Insuln.Pen) 8 units SUBCUT Q24H [facility] Stop: 03/24/26 11:59 Last Admin: 03/24/25 15:13 Dose: 8 units Metoprolol Tartrate (Metoprolol Tartrate 5 Mg/5 Ml Vial) 2.5 mg IV-PUSH Q6H [facility] Stop: 03/24/26 11:45 Last Admin: 03/25/25 08:38 [...] inpatient stay. Pt was originally transferred to [facility] for a suspected SBO. Patient has frequent [...] % (Auto) 76.6, Lymph % (Auto) 12.4, Waller % (Auto) 9.0, Eos % (Auto) 1.8, Baso % (Auto) 0.2, Nucleat RBC Rel Count 0.1, Neut # (Auto) 5.5, Lymph # (Auto) 0.9 L, Waller # (Auto) 0.6, Eos # (Auto) 0.1, [...] 03/25/25 11 36 Signed By: 03/25/25 1151 [facility]10-22-2025 [place] [address] General Surgery Consult Note Signed Patient: Eugenio Crews MR#: [id number] : 1945 Acct:[id number] Age/Sex: 79 / M Adm Date: 5 Loc: 4N Room: [address] [place] [address] Type: ADM IN Attending Dr: Bryon Aguilar MD Copies to: MD Gerry Torres,DO Arya Peña DO~ History of Present Illness Date of consult: 03/24/2025 Reason for consult: abdominal pain Requesting/Attending Provider: Bryon Aguilar MD History of present illness: Pt is a well appearing 79 year old male who presents to [facility] at 0300 this morning for abdominal cramping and pain from [facility] ED. At 5pm last night, pt [...] 4 years. When patient was transferred to [facility] at 0300, pt had a large emesis [...] 50 mls @ 100 mls/hr IV Q24H [facility] Last Admin: 03/24/25 04:07 Dose: 100 mls/hr Sodium Bicarbonate 100 meq/ (Dextrose) 1,100 mls @ 100 mls/hr IV .Q11H [facility] Stop: 03/24/26 12:59 Last Admin: 03/24/25 15:13 Dose: 100 mls/hr Insulin Aspart (Insulin Aspart 300 Units/3 Ml) 0 units SUBCUT Q6HR [facility]; Protocol Stop: 03/24/26 05:59 Last Admin: 03/24/25 13:21 Dose: Not Given Insulin Glargine (Insulin Glargine 300 Units/3 Ml Insuln.Pen) 8 units SUBCUT Q24H [facility] Stop: 03/24/26 11:59 Last Admin: 03/24/25 15:13 Dose: 8 units Metoprolol Tartrate (Metoprolol Tartrate 5 Mg/5 Ml Vial) 2.5 mg IV-PUSH Q6H [facility] Stop: 03/24/26 11:45 Last Admin: 03/24/25 13:20 [...] to be resolving. He went to the [facility] emergency room where he was diagnosed with a bowel obstruction based on CT findings and physical exam. The the ER doc called and asked if we would accept Eugenio in transfer with surgical consultation for bowel obstruction. He was subsequently transferred to [facility]. An NG tube was placed and the [...] 03/24/25 17 16 Signed By: 03/25/25 1149 [facility]10-21-2025 Progress note Author Bryon Aguilar [facility] CampusNote Date/TimeOctober 2024 3:11pm [place] [address] Hospitalist Progress Note Signed Patient: Eugenio Crews MR#: [id number] : 1945 Acct:[id number] Age/Sex: 79 / M Adm Date: 5 Loc: Room: [address] [place] [address] Type: ADM IN Attending Dr: Bryon Aguilar [...] 03/24/25 13:00 Dextrose IV 03/24/26 12:59 .Q11H [facility] Insulin Aspart 0 units 03/24/25 06:00 03/24/25 13:21 Insulin Aspart 300 Units/3 Ml SUBCUT 03/24/26 05:59 Not Given Q6HR [facility] Protocol Insulin Glargine 8 units 03/24/25 12:00 Insulin Glargine 300 Units/3 Ml Insuln.Pen SUBCUT 03/24/26 11:59 Q24H [facility] Metoprolol Tartrate 2.5 mg 03/24/25 11:50 03/24/25 13:20 Metoprolol Tartrate 5 Mg/5 Ml Vial IV-PUSH 03/24/26 11:45 Not Given Q6H [facility] Ondansetron HCl 4 mg 03/24/25 11:50 Ondansetron [...] signed by Bryon Aguilar MD> 03/24/25 1511 [facility] Work Phone: 1(952) 560-129410-21-2025 Progress noteSamantha V[place] [id number] Hospitalist Progress Note Signed Patient: Eugenio Crews MR#: [id number] : 1945 Acct:[id number] Age/Sex: 79 / M Adm Date: 5 Loc: Room: [address] [place] [address] Type: ADM IN Attending Dr: Bryon Aguilar [...] Ml SUBCUT 03/24/26 05:59 Not Given Q6HR [facility] Protocol Insulin Glargine 8 units 03/24/25 12:00 Insulin Glargine 300 Units/3 Ml Insuln.Pen SUBCUT 03/24/26 11:59 Q24H [facility] Metoprolol Tartrate 2.5 mg 03/24/25 11:50 03/24/25 [...] Aguilar MD 03/24/251509 Signed By: 03/24/25 1511 [facility]10-21-2025 History and physical note Author Moise Walker [facility] CampusNote Date/TimeOctober 2024 3:36am [place] [id number] Hospitalist H&P Signed Patient: Eugenio Crews MR#: [id number] : 1945 Acct:[id number] Age/Sex: 79 / M Adm Date: 5 Loc: 4N Room: 2K1922-0 Type: ADM IN Attending Dr: Moise Walker MD Copies to: DO Moise Ruff MD~ [facility] DATE OF EXAMINATION: 03/24/25 CHIEF COMPLAINT: abdominal pain/distention, nausea/vomiting HISTORY OF PRESENT ILLNESS: 79 year old man with 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, recurrent SBO, HTN, DLD, NIDDM2 who presented to [place] ED complaining of abdominal pain nausea and [...] were negative except as noted in the [facility] Medical History Microscopic hematuria Renal cyst, acquired, [...] antiemesis- zofran general surgery was contacted by [place] ED and agreed to consult- appreciate input [...] signed by Moise Walker MD> 03/24/25 0336 [facility] Work Phone: 1(246) 595-104210-21-2025 [place] [address] Hospitalist H&P Signed Patient: Eugenio Crews MR#: [id number] : 1945 Acct:[id number] Age/Sex: 79 / M Adm Date: 5 Loc: Room: [address] [place] [address] Type: ADM IN Attending Dr: Moise Walker MD Copies to: DO Moise Ruff MD~ HPI DATE OF EXAMINATION: 03/24/25 CHIEF COMPLAINT: abdominal pain/distention, nausea/vomiting HISTORY OF PRESENT ILLNESS: 79 year old man with 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, recurrent SBO, HTN, DLD, NIDDM2 who presented to [place] ED complaining of abdominal pain nausea and [...] were negative except as noted in the [facility] Medical History Microscopic hematuria Renal cyst, acquired, [...] Moise Walker MD 03/24/25325 Signed By: 03/24/25335 [facility]08-25-2025 Evaluation note* Diagnosis Onset Date Resolution Status Admit Date Anemia of renal disease acuteAugust 2024 1:30pmCKD (chronic kidney disease) stage 4, GFR 15-29 ml/minacuteAugust 2024 1:30pmHyperkalemiaacuteAugust 2024 1:30pm Hyperlipidemia, mixedacuteAugust 2024 1:30pmHypertensive chronic kidney disease with stage 1 through stage 4 chronic kiacuteAugust 2024 1:30pm HypomagnesemiaacuteAugust 2024 1:30pmSecondary hyperparathyroidismacute January 26, 2025 1:30pmType 2 diabetes mellitus with diabetic chronic kidney diseaseacuteAugust 2024 1:30pm [facility] Work Phone: 1([phone]) 454-359208-25-2025 Evaluation note* Diagnosis Onset Date Resolution Status [...] 2024 2:52amUTI (urinary tract infection)acuteOctober 2024 2:52am [facility] Work Phone: 1(366) 335-663508-25-2025 Evaluation note* Diagnosis Onset Date Resolution Status [...] mellitus with hyperglycemiaacute April 03, 2025 8:08am [facility] Work Phone: 1(652) 309-430406-27-2025 Evaluation note* Diagnosis Onset Date Resolution Status [...] with diabetic chronic kidney diseaseacuteAugust 2024 1:30pm [facility] Work Phone: 1([phone]) 675-898405-28-2025 Evaluation note* Diagnosis Onset Date Resolution Status [...] 2 diabetes mellitus with hyperglycemiaacuteJune 2024 8:04am [facility] Work Phone: 1([phone]) 326-327905-28-2025 Evaluation note* Diagnosis Onset Date Resolution Status [...] 2 diabetes mellitus with hyperglycemiaacuteJune 2024 8:04am [facility] Work Phone: 1(121) 898-139005-28-2025 Evaluation note* Diagnosis Onset Date Resolution Status [...] with diabetic chronic kidney diseaseacuteAugust 2024 1:30pm [facility] Work Phone: 1(722) 400-886405-15-2025 Hospital Discharge instructions Patient Education 10/16/2024 10:10:05 [...] Follow these instructions at home: Medicines Take fktk-ydo-paszhcx and prescription medicines only as told by [...] or the blood stops without treatment. Take uzbb-cpb-syricae and prescription medicines only as told by your health care provider. Drink enough fluid to keep your urine pale yellow. This information is not intended to replace advice given to you by your health care provider. Make sure you discuss any questions you have with your health care provider. Document Revised: 01/19/2021 Document Reviewed: 01/19/2021 [employer] Patient Education 2023 Engage. Follow Up Care 10/08/2024 16:20:15 With:[facility] Address: When: Unknown Comments:For procedure as scheduled. [facility] [place] 05-15-2025 NotePatient Education Urology Hematuria, Adult Hematuria [...] these instructions at home: Medicines ??? Take kwhx-rsj-yryiffq and prescription medicines only as told by [...] the blood stops without treatment. ??? Take otig-tfu-bxuiuyg and prescription medicines only as told by your health care provider. ??? Drink enough fluid to keep your urine pale yellow. This information is not intended to replace advice given to you by your health care provider. Make sure you discuss any questions you have with your health care provider. Document Revised: 01/19/2021 Document Reviewed: 01/19/2021 [employer] Patient Education ? 2023 Engage.[facility] 10-06-2024 NotePatient Education Urology Hematuria, Adult [...] these instructions at home: Medicines ??? Take gfbl-lxm-zqncgtl and prescription medicines only as told by [...] the blood stops without treatment. ??? Take yqxz-zvm-rgqmiiv and prescription medicines only as told by your health care provider. ??? Drink enough fluid to keep your urine pale yellow. This information is not intended to replace advice given to you by your health care provider. Make sure you discuss any questions you have with your health care provider. Document Revised: 01/19/2021 Document Reviewed: 01/19/2021 Elsevier Patient Education ? 2023 [employer] [facility] 05-05-2024 Evaluation note* Diagnosis Onset Date [...] with diabetic chronic kidney diseaseacuteFebruary 2024 2:34pm [facility] Work Phone: 1(910) 225-957312-02-2024 Evaluation note* Diagnosis Onset Date Resolution Status [...] 2 diabetes mellitus with hyperglycemiaacuteFebruary 2024 8:13am [facility] Work Phone: 1([phone]) 537-939611-11-2024 Hospital Discharge instructions Patient Education 04/14/2024 12:36:08 [...] treatment? Where to find more information [employer] [employer]: www.cancer.org [employer] [employer]: www.auanet.org Contact a health care [...] provider. Document Revised: 11/14/2021 Document Reviewed: 11/14/2021 [employer] Patient Education 2023 Engage. Follow Up Care 04/08/2024 11:27:26 With:JADE DOYLE, Jenaro Roberto, URL Address: [facility] [address] [place] [address]- [phone] When: Unknown Comments:6 mos w/ PSA [facility] [place] 11-11-2024 NoteUrology Office/Clinic Note Chief Complaint referral [...] Urology [address], [place] [address] [phone] Additional Instructions: 6 mos w/ PSA Patient [...] Oral, Daily Tradjenta, Oral, (more content not included)...[facility] Comment on above:Result Comment: Electronically Signed By: Jenaro HANSEN MD\.br\Date and Time Signed: 04/14/24 12:43 EST\.br\Electronically Co-Signed By: Rochelle Hightower\.br\Date and Time Co-Signed: 04/14/24 12:42 [id number] Note Patient Education Oncology Prostate Cancer Screening [...] Where to find more information ??? [employer] [place] [employer]: www.cancer.org ??? [employer]: www.auanet.org Contact a health care [...] men. The prostate gland (more content not included)...[facility]10-28-2024 Evaluation note* Diagnosis Onset Date Resolution [...] mellitus with diabetic chronic kidney diseaseacuteDece2023 2:29pm [facility] Work Phone: 1(279) 672-648410-18-2024 History of Present illness Narrative* Ashley Manzano, SITE LEADER-PERSONNEL TECHNICIAN - 03/21/2024 8:30 AM EDT Skin Check [...] Anterior (2), Right Forearm - Posterior, Right [place] Erythematous scaly papules Patient was counseled regarding [...] limited to risks of scarring, darker or prosthetics assistant pigmentary changes, recurrence, incomplete removal and infection. [...] Anterior (2), Right Forearm - Posterior, Right [place] 5. Capillary angioma (2) Left Arm, Right [...] 1 year, skin check documented in this encounterCarondelet [id number] Evaluation note* Encounter Date Diagnosis Assessment Notes Treatment Notes Treatment Clinical Notes Jun, Pernicious anemia (ICD-10 - D51. 0) [facility] Other 10-24-2023 Evaluation note* Encounter Date Diagnosis [...] index [BMI] 30.0-30.9, adult (ICD-10 - Z68.30) [facility] Other 09-29-2023 Evaluation note* Encounter Date Diagnosis [...] in public places for complete 10 days [facility] Other 09-05-2023 Evaluation note* Encounter Date Diagnosis Assessment Notes Treatment Notes Treatment Clinical Notes Feb, Pernicious anemia (ICD-10 - D51. 0) [facility] Other 07-31-2023 Evaluation note* Encounter Date Diagnosis Assessment Notes Treatment Notes Treatment Clinical Notes Dec, Pernicious anemia (ICD-10 - D51. 0) [facility] Other 06-26-2023 Evaluation note* Encounter Date Diagnosis Assessment Notes Treatment Notes Treatment Clinical Notes Nov, Pernicious anemia (ICD-10 - D51. 0) [facility] Other 03-27-2023 Evaluation note* Encounter Date Diagnosis Assessment Notes Treatment Notes Treatment Clinical Notes Aug, Pernicious anemia (ICD-10 - D51. 0) [facility] Other 02-23-2023 Evaluation note* Encounter Date Diagnosis Assessment Notes Treatment Notes Treatment Clinical Notes Jul, Pernicious anemia (ICD-10 - D51. 0) [facility] Other 01-23-2023 Evaluation note* Encounter Date Diagnosis Assessment Notes Treatment Notes Treatment Clinical Notes Jun, Pernicious anemia (ICD-10 - D51. 0) [facility] Other 10-31-2022 Hospital Discharge instructions Patient Education [...] including vitamins, herbs, eye drops, creams, and jelo-haf-lxfneup medicines. This also includes: ?Medicines to assist [...] 06/23/2005 Document Revised: 05/03/2018 Document Reviewed: 02/25/2018 [employer] Patient Education 2020 Engage. Follow Up Care 03/28/2021 16:51:27 With:JADE DOYLE, Jenaro R, URL Address: [facility] [address], [place] [address]- [phone] When: only if needed [facility] 10-10-2022 Miscellaneous Notes* Telephone Encounter - Irena Cabrera - 03/13/2022 2:48 PM EDT Per last note 03/2021 follow up with labs. Please add lab orders for Sunday03/22/22. Thanks. Irena Cabrera MA documented in this encounterTrihealth [facility]09-[facility]-2022 NoteHNO ID: [id number] Author: Iona Cabrera RN Service: ? Author Type: Registered Nurse Type: Progress Notes Filed: 02/28/2022 2:28 PM Note Text: Report of findings called to Trisha VIDAL at Dr. Jasso' office. She states she will let Dr. Reyes know. Elisabeth Cabrera [facility]The [facility]09-26-2022 NoteHNO ID: [id number] Author: Iona Cabrera RN Service: ? Author [...] Reyes as scheduled on 03/01/22. Elisabeth Cabrera RNThe [facility]09-26-2022 History of Present illness Narrative* Iona [...] 03/01/22. Elisabeth Cabrera RN documented in this encounterTrihealth Mcc[facility]09-23-2022 Miscellaneous Notes* Telephone Encounter - Yoly Boss PA-C - 02/24/2022 8:21 AM EDT Done Yoly Boss PA-C * Telephone Encounter - Eamon Biswas RN - 02/23/2022 4:40 PM EDT Patient of Dr Kidd who is scheduled for cath vernell 02/27/22 per prior phone encounter, can you please place orders. Thanks! Eamon Biswas RN documented in this encounterTrihealth Mccull[facility]09-20-2022 Miscellaneous Notes* Telephone Encounter - Allyssa Rueda - 02/21/2022 1:51 PM EDT Patient has been scheduled for activase on Sunday, 02/27. Called and spoke with regarding this appointment. Allyssa Rueda * Telephone Encounter - Aileen Fish [facility] - 02/21/2022 1:12 PM EDT Xray report scanned. * Telephone Encounter - Aileen Jenkins RN - 02/21/2022 12:24 PM EDT Spoke with and informed her that the orders were placed. NSG: states that it was accessed 2 days in a row at [facility] and there was swelling above port site. Dr. Reyes thought perhaps the nurse missed as they use a smaller port at [place] which is where he had it placed. Informed that if we have swelling while patient is here, we would not proceed. verbalized understanding. PSS: please call patient/ to schedule on infusion schedule for possible 2 doses of activase. Jamia: Can you get an xray that was taken of the port at [facility] recently. ( states they did [...] to the treatment schedule. documented in this encounterTrihealth Mccull[facility]06-08-2022 NotePROCEDURE: XR FOOT LT MIN 3 [...] Electronically authenticated by: ALONZO MADRIGAL Date: 2021-11-09 17:01[facility]10-20-2021 NoteHNO ID: [id number] Author: Kendall Honeycutt APRN.PERSONNEL TECHNICIAN Service: ? Author Type: Nurse Practitioner Type: Progress Notes Filed: 03/25/2021 12:42 PM Note Text: Patient: Eugenio Crews Location: [facility] : 1945 Attending Physician: Dr. Kings Jones [...] colonoscopy in September with Dr. Reyes in [place]. He denies fevers, chills, night sweats and [...] with any questions or concerns. Kendall Honeycutt APRN.PERSONNEL TECHNICIAN March 23, 2021 I spent a total of 30 minutes on the date of the service which included preparing to see the patient, gybd-rl-gesp patient care, completing clinical documentation, obtaining and/or reviewing separately obta (more content not included)...[facility]11-29-[facility] History of Past illness Narrative* ProblemNoted [...] planning if he tolerates GIS Small bowel yvluumbhctd31documented as of this encounter (statuses as of 02/21/2022) [facility]11-29-[facility] History of Past illness Narrative* ProblemNoted Date [...] planning if he tolerates GIS Small bowel ptwthtyzqcr87documented as of this encounter (statuses as of 02/27/2022) [facility]11-29-[facility] History of Past illness Narrative* ProblemNoted Date [...] planning if he tolerates GIS Small bowel speypuulptt09documented as of this encounter (statuses as of 03/02/2022) [facility]11-29-[facility] History of Past illness Narrative* ProblemNoted Date [...] planning if he tolerates GIS Small bowel qdoiohyyzyn81documented as of this encounter (statuses as of 03/13/2022) [facility] HospitalConsult note Author Arya Peña [facility] CampusNote Date/TimeOctober 2024 11:49am [place] [address] General Surgery Consult Note Signed Patient: Eugenio Crews MR#: [id number] : 1945 Acct:[id number] Age/Sex: 79 / M Adm Date: 5 Loc: 4N Room: [address] [place] [address] Type: ADM IN Attending Dr: Bryon Aguilar MD Copies to: MD Gerry Torres DO Fredric Itzkowitz, DO~ History of Present Illness Date of consult: 03/24/2025 Reason for consult: abdominal pain Requesting/Attending Provider: Bryon Aguilar MD History of present illness: Pt is a well appearing 79 year old male who presents to [facility] at 0300 this morning for abdominal cramping and pain from [facility] ED. At 5pm last night, pt [...] 4 years. When patient was transferred to [facility] at 0300, pt had a large emesis [...] 5,000 Unit/Ml Vial) 5,000 unit SUBCUT Q8HR [facility] Stop: 03/24/26 13:59 Last Admin: 03/24/25 15:13 Dose: 5,000 unit Hydromorphone HCl (Hydromorphone 0.5 Mg/0.5 Ml Syringe) 0.4 mg IV-PUSH Q2HR PRN PRN Reason: Pain Scale 8 - 10 Ceftriaxone Sodium (Rocephin) 1 gm in 50 mls @ 100 mls/hr IV Q24H [facility] Last Admin: 03/24/25 04:07 Dose: 100 mls/hr Sodium Bicarbonate 100 meq/ (Dextrose) 1,100 mls @ 100 mls/hr IV .Q11H [facility] Stop: 03/24/26 12:59 Last Admin: 03/24/25 15:13 Dose: 100 mls/hr Insulin Aspart (Insulin Aspart 300 Units/3 Ml) 0 units SUBCUT Q6HR [facility]; Protocol Stop: 03/24/26 05:59 Last Admin: 03/24/25 13:21 Dose: Not Given Insulin Glargine (Insulin Glargine 300 Units/3 Ml Insuln.Pen) 8 units SUBCUT Q24H [facility] Stop: 03/24/26 11:59 Last Admin: 03/24/25 15:13 Dose: 8 units Metoprolol Tartrate (Metoprolol Tartrate 5 Mg/5 Ml Vial) 2.5 mg IV-PUSH Q6H [facility] Stop: 03/24/26 11:45 Last Admin: 03/24/25 13:20 [...] to be resolving. He went to the [facility] emergency room where he was diagnosed with a bowel obstruction based on CT findings and physical exam. The the ER doc called and asked if we would accept Eugenio in transfer with surgical consultation for bowel obstruction. He was subsequently transferred to [facility]. An NG tube was placed and the [...] <Electronically signed by Arya Peña DO> 03/25/25 1147 [facility] Work Phone: Evaluation + Plan note No data available for this section [facility] evaluation + Plan note Future Appointments Appointment Date:10/06/2024 08:45:00 AM Scheduled Provider:Jenaro HANSEN MD Location:[facility] Appointment Type:URO Office Visit Diagnostic Tests Pending * PSA Total 04/14/24 [facility] evaluation + Plan note Future Appointments Appointment Date:04/20/2025 08:45:00 AM Scheduled Provider:[facility]EN [facility] Evaluation + Plan note Future Appointments Appointment Date:04/20/2025 08:45:00 AM Scheduled Provider:Jenaro HANSEN MD Location:[facility] Appointment Type:URO Office Visit Diagnostic Tests Pending * Creatinine 10/16/24 * BUN 10/16/24 [facility] evaluation + Plan note Future Appointments Appointment Date:04/20/2025 08:45:00 AM Scheduled Provider:Jenaro HANSEN MD Location:[facility] Appointment Type:URO Office Visit Diagnostic Tests Pending * Urine Cytology ([facility]) 10/16/24 [facility] Evaluation note* Diagnosis Obstruction of central line, initial encounter (HCC) documented in this encounter [facility] HospitalEval[facility] note* Diagnosis Obstruction of central line, initial encounter (HCC)- Primary Follicular lymphoma, unspecified follicular lymphoma type, unspecified body region (HCC) documented in this encounter [facility] note* Diagnosis Non-Hodgkin's lymphoma, unspecified body region, unspecified non-Hodgkin lymphoma type (HCC)- Primary documented in this encounter [facility]No [facility] Other evaluation note* Diagnosis Onset Date Resolution Status Chronic venous insufficiency acuteDiabetes mellitus with hyperglycemiaacuteHyperlipidemia, mixedacute Pernicious anemiaacutePrimary hypertensionacuteType 2 diabetes mellitus with diabetic polyneuropathyacute [facility] Work Phone: evaluation noteNo assessment information available [facility] Work Phone: evaluation note* Diagnosis Onset Date Resolution Status Herpes zoster acuteType 2 diabetes mellitus with hyperglycemiaacuteChronic venous insufficiencyacuteHyperlipidemia, mixedacutePernicious anemiaacutePrimary hypertensionacuteType 2 diabetes mellitus with diabetic polyneuropathyacuteType 2 diabetes mellitus with hyperglycemiaacute [facility] Work Phone: Evaluation note* Diagnosis Onset Date Resolution Status Chronic venous insufficiency acuteHyperlipidemia, mixedacutePernicious anemiaacutePrimary hypertensionacute Type 2 diabetes mellitus with diabetic polyneuropathyacuteType 2 diabetes mellitus with hyperglycemiaacute [facility] Work Phone: Evaluation note* Diagnosis Melanocytic nevus [...] diabetic polyneuropathyacuteType 2 diabetes mellitus with hyperglycemiaacute [facility] Work Phone: Evaluation note* Diagnosis Onset Date Resolution Status Admit Date Anemia of renal disease acuteMa2024 9:07amCKD (chronic kidney disease) stage 4, GFR 15-29 ml/min acuteMa2024 9:07amHyperlipidemia, mixedacuteMay 2024 9:07am Hypertensive chronic kidney disease with stage 1 through stage 4 chronic [place] May 2024 9:07amHypomagnesemiaacuteMay 2024 9:07amSecondary hyperparathyroidismacuteMa2024 9:07amThrombocytopeniaacutey 2024 9:07amType 2 diabetes mellitus with diabetic chronic kidney diseaseacuteMa2024 9:07am [facility] Work Phone: Evaluation note* Diagnosis Actinic keratosis Seborrheic keratosis Melanocytic nevus of right upper extremity Melanocytic nevus of left upper extremity Capillary angioma Nevus, non-neoplastic Lentigines History of SCC (squamous cell carcinoma) of skin Personal history of other malignant neoplasm of skin Neoplasm of unspecified behavior of bone, soft tissue, and skin documented in this encounter [facility] HealthcareHistory general Narrative - Reported* Type Description Date Surgical History Problem Title : COLONOSCOPY (92 378), Problem Status : Active, Surgical HistoryProblem Title : HAMMERTOE REPAIR (00169), Problem Comment : left 2nd toe, Problem Status : Active,Surgical HistoryProblem Title : Knee arthroscopy, Problem Comment : multiple 6080-4384, Problem Status : Inactive, Surgical HistoryProblem Title : OSTECTOMY OF TARSAL COALITION OF LEFT FOOT (62435), Problem Status : Active,Surgical HistoryProblem Title : [...] Foot Ulcer 09/2108, Problem Status : Active, [facility] Other History general Narrative - Reported* Type [...] carcinoma - skiSurgical HistoryProblem Title : COLONOSCOPY (80723), Problem Status : Active,Surgical HistoryProblem Title : HAMMERTOE REPAIR (20237), Problem Comment : left 2nd toe, Problem Status : Active,Surgical HistoryProblem Title : Knee arthroscopy, Problem Comment : multiple 8487-7327, Problem Status : Inactive,Surgical HistoryProblem Title : OSTECTOMY OF TARSAL COALITION OF LEFT FOOT (12108), Problem Status : Active,Surgical HistoryProblem Title : [...] Foot Ulcer 09/2108, Problem Status : Active, [facility] Other History general Narrative - Reported* Type [...] insufficiency Medical HistoryBasal cell carcinoma of noseSurgical NcukyuiVQJBKCQCZXS34/22/2021 Surgical HistoryHAMMERTOE REPAIR : left 2nd toeSurgical HistoryKnee arthroscopy 1983-2008Surgical HistoryOSTECTOMY OF TARSAL COALITION OF LEFT FOOTSurgical HistoryResection of Large BowelSurgical HistoryDebridement Left Foot Ulcer 09/2018Hospitalization Historysee surgical history [facility] Other Hospital Discharge instructions Additional Instructions 1. Sleep on 2 pillows 2. Small amount of Vaseline to sutures twice daily 3. You may shower late tomorrow afternoon, soap and water okay on wound 4. Tylenol or Motrin for discomfort 5 take antibiotic as prescribed 6. [facility] Dr[facility] Work [facility]: Hospital Discharge instructions No data available for this section [facility] Discharge instructionsAdditional Instructions Continue to monitor glucose levels as beforeKing[facility] Work Phone: Progress note No data available for this section [facility] progress note Author Arya Peña [facility] CampusNote Date/TimeOctober 2024 11:51am [address] [address] General Surgery Progress Note Signed Patient: Eugenio Crews MR#: [id number] : 1945 Acct:[id number] Age/Sex: 79 / M Adm Date: 5 Loc: 4N Room: 0V5034-8 Type: ADM IN Attending Dr: Bryon Aguilar [...] 5,000 Unit/Ml Vial) 5,000 unit SUBCUT Q8HR [facility] Stop: 03/24/26 13:59 Last Admin: 03/25/25 06:08 Dose: 5,000 unit Hydromorphone HCl (Hydromorphone 0.5 Mg/0.5 Ml Syringe) 0.4 mg IV-PUSH Q2HR PRN PRN Reason: Pain Scale 8 - 10 Ceftriaxone Sodium (Rocephin) 1 gm in 50 mls @ 100 mls/hr IV Q24H [facility] Last Admin: 03/25/25 04:31 Dose: 100 mls/hr Sodium Bicarbonate 100 meq/ (Dextrose) 1,100 mls @ 100 mls/hr IV .Q11H [facility] Stop: 03/24/26 12:59 Last Admin: 03/25/25 02:47 Dose: 100 mls/hr Insulin Aspart (Insulin Aspart 300 Units/3 Ml) 0 units SUBCUT Q6HR [facility]; Protocol Stop: 03/24/26 05:59 Last Admin: 03/25/25 06:08 Dose: Not Given Insulin Glargine (Insulin Glargine 300 Units/3 Ml Insuln.Pen) 8 units SUBCUT Q24H [facility] Stop: 03/24/26 11:59 Last Admin: 03/24/25 15:13 Dose: 8 units Metoprolol Tartrate (Metoprolol Tartrate 5 Mg/5 Ml Vial) 2.5 mg IV-PUSH Q6H [facility] Stop: 03/24/26 11:45 Last Admin: 03/25/25 08:38 [...] inpatient stay. Pt was originally transferred to [facility] for a suspected SBO. Patient has frequent [...] % (Auto) 76.6, Lymph % (Auto) 12.4, [place] % (Auto) 9.0, Eos % (Auto) 1.8, Baso % (Auto) 0.2, Nucleat RBC Rel Count 0.1, Neut # (Auto) 5.5, Lymph # (Auto) 0.9 L, [place] # (Auto) 0.6, Eos # (Auto) 0.1, [...] signed by Arya Peña, > 03/25/25 1151 [facility] Work Phone: Reason for referral (narrative)No reason for referral information availableMercy Health Work Phone: Advance Directives No Advanced Directives [...] Amb Documentation March 25, 2025 2 :18pm Wellness/[facility] f/u April 03, 2025 8 :08am Reason [...] prosecute any alcohol or drug abuse patient.[facility] HospitalIn the event this information is protected by the Federal Confidentiality of Alcohol and Drug Abuse Patient Records regulations: The Federal rules restrict any use of the information to criminally investigate or prosecute any alcohol or drug abuse patient.[facility] HospitalIn the event this information is protected by the Federal Confidentiality of Alcohol and Drug Abuse Patient Records regulations: The Federal rules restrict any use of the information to criminally investigate or prosecute any alcohol or drug abuse patient.[facility] HospitalIn the event this information is protected by the Federal Confidentiality of Alcohol and Drug Abuse Patient Records regulations: The Federal rules restrict any use of the information to criminally investigate or prosecute any alcohol or drug abuse patient.[facility] Reason for Visit (unrecogniz ed section [...] Provider Active Start: October 24, 2024 RANDI Cruz-[facility]tden[facility] ProviderActiveStart: October 24, 2024 Team Status: Inactive [...] DateEnd Date Gerry Chang, DO [address] [place] [address] PCP - General09/07/09Team MemberRelationshipSpecialtyStart DateEnd Date Gerry Chang, DO [address] [place] [address] PCP - General09/07/09Team MemberRelationshipSpecialtyStart DateEnd Date Gerry Chang, DO [address] [place] [address] PCP - General09/07/09Team MemberRelationshipSpecialtyStart DateEnd Date Gerry Chang, DO [address] [place] [address] PCP - General09/07/09 Team Status: Active Member [...] MD [address] [place] [address] Referring PhysicianDermatology10/31/23 Gerry Nelson DO [address] [place] [address] Otolaryngology10/31/23Team MemberRelationshipSpecialtyStart DateEnd Date Gerry Chang MD PCP - GeneralInternal Medicine08/04/23 Destiny Gant MD [address] [place] [address] Referring PhysicianDermatology10/31/23 Gerry Nelson, DO [address] [place] [address] Otolaryngology10/31/23 Team Status: Inactive Member Role Status [...] 2024 Team Status: Active Member Role Status Fredyd Chang DO Primary Care Provide r, Attending [...] Chagn DO Primary Care Provider Active Start: January [...] DateEnd Date Gerry Chang DO [address] [place] [id number] PCP - GeneralInternal Medicine08/04/23 Destiny Gant MD [address] [place] [address] Referring PhysicianDermatology10/31/23 Gerry Nelson DO [address] [place] [address] Otolaryngology10/31/23Team MemberRelationshipSpecialtyStart DateEnd Date Gerry Chang DO [address] [place] [address] PCP - GeneralInternal Medicine08/04/23 Destiny Gant MD [address] [place] [address] Referring PhysicianDermatology10/31/23 Gerry Nelson DO [address] [place] [address] Otolaryngology10/31/23 Team Status: Active Member Role/Relationship Status [...] section and content) DATE CREATED AUTHOR 03/05/2022 [facility] DATE CREATED AUTHOR AUTHOR'S ORGANIZ ATION 10/18/2022 [facility] DATE CREATED AUTHOR AUTHOR'S ORGANIZ ATION 11/14/2024 [facility] DATE CREATED AUTHOR AUTHOR'S ORGANIZ ATION 01/28/2025 [facility] DATE CREATED AUTHOR AUTHOR'S ORGANIZ ATION 01/29/2025 [facility] DATE CREATED AUTHOR AUTHOR'S ORGANIZ ATION 03/28/2025 [facility] DATE CREATED AUTHOR AUTHOR'S ORGANIZ ATION 04/03/2025 [facility] EPIC Goals (unrecognized section and [...] BE BASED ON THE PRIMARY CLINICAL RECORDS. [facility]. provides no warranty or guarantee of the accuracy or completeness of information in this document.
[2025-04-10 10:58] LABS: Prostate Specific Antigen Dx 3.90 ng/mL (<=4.00)
== END 2025-04-10 08:47 | disposition home or self-care (01) ==
LOC: LAB 08:51
PROVIDERS: PCP Internal Medicine; Visit Provider Urology
DX: R97.20 Elevated prostate specific antigen [PSA] (principal)
CPT/HCPCS: 36415; 84153

== ENCOUNTER 2025-04-16 07:11 | Outpatient (OUT) | payer MEDICARE, SELFPAY ==
--- OUTSIDE RECORDS SUMMARY | 2025-04-02 07:35 | XMS_ITS | Encounter Summary ---
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 Name Role Phone Gerry Barton DO Primary Care Provider [phone] Destiny Gant MD Unavailable [phone] Gerry Nelson DO Unavailable [phone] Reason for Visit * ReasonCommentsSkin Check Encounter Details DateTypeDepartmentCare Team (Latest Contact Info)Udmukykeaqo17/30/2025 8:35 AM EDTOffice Visit [facility] [address] [facility] [address] [place] [address] Melody Manzano APRN-CNP [address] [facility] [address] [place] [address] Actinic keratosis; Seborrheic keratosis; Melanocytic [...] InformationValueDate RecordedSex Assigned at BirthNot on fileLegal VbjNzdg8808/16/2022 7:34 PM EDTGender IdentityNot on file Sexual [...] limited to risks of scarring, darker or snow fence erector pigmentary changes, recurrence, incomplete removal and infection. [...] x 0.9 cm Left tip of Nose [place] papule - Lesion biopsy Type of biopsy: [...] Plan of Treatment DateTypeDepartmentCare Team (Latest Contact Info)Ihgzzzdjlcu77/12/2026 8:30 AM ESTOffice Visit [facility] [address] [place] [phone] Elvia Brush MD [address] [place] [address] 10/01/2025 8:35 AM EDTOffice Visit [facility] [address] [place] [phone] Natacha Melody Leon, SOAKER MEAT-BEAMING MACHINE OPERATOR [address] [place] [address] documented as of this encounter Procedures Procedure NamePriorityDate/TimeAssociated DiagnosisCommentsSKIN / NAIL BIOPSY Dyczlhf3204/02/2025 8:27 AM EDT Neoplasm of unspecified behavior of bone, soft tissue, and skin SKIN / NAIL VNHVDCHehgfmu87/30/2025 8:26 AM EDT Neoplasm of unspecified behavior of bone, soft tissue, and skin CRYOTHERAPY SKIN ENRCFAMtnltgq11/30/2025 8:25 AM EDT Actinic keratosis ZZDERMATOPATHOLOGY EXAM RMCNESZQYJJTwwsulu73/30/2025 12:00 AM EDT Actinic keratosis Neoplasm of unspecified behavior of bone, soft tissue, and skin DERMATOPATHOLOGY XUKEIwpxrow86/30/2025 12:00 AM EDT Neoplasm of unspecified behavior [...] cc Authorizing ProviderResult TypeResult StatusNatalie A Felter SOAKER MEAT-CNPDERM PROCEDURE ORDERABLESFinal Result * Lesion biopsy (04/02/2025 [...] cc Authorizing ProviderResult TypeResult StatusNatalie A Felter SOAKER MEAT-CNPDERM PROCEDURE ORDERABLESFinal Result * Cryotherapy, skin lesion (04/02/2025 8:25 AM EDT) Narrative Authorizing ProviderResult TypeResult StatusNatalie A Felter SOAKER MEAT-CNPDERM PROCEDURE ORDERABLESFinal Result * Dermatopathology exam (04/02/2025 12:00 AM EDT)ComponentValueRef RangeTest MethodAnalysis TimePerformed AtPathologist SignatureSPECIMEN TYPE SPECIMEN: MID PARIETAL SCALP VIVIENNE [id number] Code C44.42AURORA DIAGNOSTICSPROTOCOLFF - FLAT, FRAGMENTAURORA DIAGNOSTICSFinal DiagnosisSQUAMOUS CELL CARCINOMA, WELL DIFFERENTIATED, SUPERFICIAL ASPECTS (SEE COMMENT). COMMENT: The tumor is broadly transected across the base and a subjacent invasive component cannot be excluded. [employer] Text fragments ranging in size from largest to smallest; measuring 0.4x0.4x0.1cm to 0.1x0.1x0.1cm (eb/ni) (04/07/25) bx stuck in lid VIVIENNE DIAGNOSTICSMicroscopic DescriptionMicroscopic examination performed. VIVIENNE DIAGNOSTICSSPECIMEN TYPE SPECIMEN: LEFT TIP OF NOSE VIVIENNE [id number] CodeL57.0AURORA DIAGNOSTICSPROTOCOLF - FLATAURORA DIAGNOSTICSFinal DiagnosisACTINIC KERATOSIS.[employer] TextAURORA DIAGNOSTICSMicroscopic DescriptionMicroscopic examination performed.VIVIENNE [id number]*2AURORA DIAGNOSTICSSpecimen (Source)Anatomical Location / LateralityCollection Method / VolumeCollection TimeReceived TimeSkin (tissue) specimen (specimen)Topography unknown / Awohmue3704/02/2025 8:26 AM EDTComment: Differential Diagnosis: AK vs SCC Check Margins: No Size of lesion: 1.1 x 0.9 cm Skin (tissue) specimen (specimen)Topography unknown / Bbxrvig7304/02/2025 8:27 AM EDTComment:Differential Diagnosis: BCC vs SCC Check Margins: No Size of lesion: 0.4 x 0.4 cm Narrative Authorizing ProviderResult TypeResult StatusNatalie Edward Manzano APRN-[facility] PATHOLOGY ORDERABLESFinal ResultPerforming OrganizationAddressCity/State/ZIP CodePhone Number VIVIENNE [...] DateEnd Date Gerry Barton DO [address] [place] [address] PCP - GeneralInternal Medicine08/04/23 Destiny Gant MD [address] [facility] [address] [place] [address] Referring PhysicianDermatology10/31/23 Gerry Nelson DO [address] [place] [address] Otolaryngology10/31/23documented as of this encounter
--- OUTSIDE RECORDS SUMMARY | 2025-04-16 07:17 | XMS_ITS | Encounter Summary ---
Author Organization [facility] Address [address] [place] [address] Care Team Providers Care Recycling Or Rubbish Collector Name Role Phone Gerry Barton DO Primary Care Provider [phone] Destiny Gant MD Unavailable Gerry Nelson DO Unavailable [phone] Encounter Details DateTypeDepartmentCare Team (Latest Contact Info)Qwjmaohjnej41/30/2025amboo flowsheet [facility] [address] [place] [address] Melody Manzano, INTER COM SERVICER-EDITOR PUBLICATIONS [address] [place] [address] Social History Tobacco UseTypesPacks/DayYears UsedDateSmoking Tobacco: NeverSmokeless Tobacco: NeverAlcohol UseStandard Drinks/WeekCommentsYes0 (1 standard drink = 0.6 oz pure alcohol)Monthly or lessSex and Gender InformationValueDate RecordedSex Assigned at BirthNot on fileLegal OfcWixe0308/16/2022 7:34 PM EDTGender IdentityNot on file Sexual OrientationNot on filedocumented as of this encounter Plan of Treatment DateTypeDepartmentCare Team (Latest Contact Info)Ebqxogalizo67/12/2026 8:30 AM ESTOffice Visit [facility] [address] [place] [address] Elvia Brush MD [address] [place] [address] 10/01/2025 8:35 AM EDTOffice Visit [facility] [place] [facility] [address] [place] [address] Melody Manzano APRN-EDITOR PUBLICATIONS [address] [place] [address] documented as of this encounter Visit Diagnoses Not on filedocumented in this encounter Care Teams Team MemberRelationshipSpecialtyStart DateEnd Date Gerry Barton DO [address] [place] [place] [phone] PCP - GeneralInternal Medicine08/04/23 Destiny Gant MD [address] [place] [address] Referring PhysicianDermatology10/31/23 Gerry Nelson DO [address] [place] [address] Otolaryngology10/31/23documented as of this encounter
--- OUTSIDE RECORDS SUMMARY | 2025-04-16 07:17 | XMS_ITS | Clinical Summary ---
Author Organization [facility] Address [address] [facility] [place] [address] Care Team Providers Care Bead Forming Machine Operator Name Role Phone Unavailable Primary Care Provider Unavailabl e Source Comments The following information is NOT included in Care Everywhere downloads:Psychiatric notes, ECG results, Cardiac Rehab notes, Pulmonary Function notes, data from [employer] (includes but not limited toPregnancy data,audiograms, eye exams, pre-surgical evaluation notes, well-child exam data).[facility] Allergies Active AllergyReactionsCriticalityNoted DateCommentsPiperacillin-Tazobactam In Z4cKtnww28/21/2011 Medications No known medications Active Problems ProblemNoted DateDiagnosed DateHemorrhage of gastrointestinal tract, unspecified 11/24/2010 Social History Tobacco UseTypesPacks/DayYears UsedDateSmoking Tobacco: Never AssessedSex and Gender InformationValueDate RecordedSex Assigned at BirthNot on fileLegal Sex Male04/07/2012 1:16 PM ESTGender IdentityNot on fileSexual OrientationNot on file Last Filed Vital Signs Vital SignReadingTime TakenCommentsBlood Hdhnpcjx936/7506 11:40 AM EDT Ibdeh319411/24/2010 11:40 AM BMGRqczitxkoii27.8 ??C (98.2 ??F)11/24/2010 11:40 AM EDTRespiratory Hoch64211/24/2010 11:40 AM EDTOxygen Yoehcjypku70%11/24/2010 11:40 AM EDTInhaled Oxygen Concentration--Qpzzld539.8 kg (242 lb)11/22/2010 8:23 PM OUCReimyn904 cm (6' 2 )11/22/2010 8:23 PM EDTBody Mass Index31.0711/22/2010 8:23 PM EDT Plan of Treatment Health MaintenanceDue DateLast DoneCommentsHepatitis C Cdhmcrbx22/17/1966Tdap Semhzmy6806/20/1965Hepatitis A (HAV) Vaccine (optional start 19+ years)1966 Tetanus (Td or Tdap) Plhpqaw7106/20/1966Pneumococcal Vaccine(s) (50+ yrs) (1 of 1 - PCV)1997Shingles (RZV) Vaccine (1 of 2)1997Hepatitis B (HBV) Vaccine (optional start 60+ years)2007nnual Wellness Visit (G0438) 06/04/2011RSV vaccine (adult) (1 - 1-dose 75+ series)2022OVID-19 Vaccine (1 - 2024-26 season)2025Influenza Vaccine (#1)2025 [place] [address] Advance Directives * Full Code (Latest Code Status on File) Date ActivatedDate InactivatedComments11/22/2010 7:41 PM11/23/2010 7:01 PM
--- OUTSIDE RECORDS SUMMARY | 2025-04-16 07:17 | XMS_ITS | Encounter Summary ---
Author Organization [facility] Address [address] [place] [address] Care Team Providers Care Sales And Marketing Analyst Name Role Phone Gerry Barton DO Primary Care Provider [phone] Destiny Gant MD Unavailable [phone] Gerry Nelson DO Unavailable [phone] Encounter Details DateTypeDepartmentCare Team (Latest Contact Info)Nzrwzzxpzpz22/30/2025Travel Social History Tobacco UseTypesPacks/DayYears UsedDateSmoking Tobacco: NeverSmokeless Tobacco: NeverAlcohol UseStandard Drinks/WeekCommentsYes0 (1 standard drink = 0.6 oz pure alcohol)Monthly or lessSex and Gender InformationValueDate RecordedSex Assigned at BirthNot on fileLegal WglEivs7908/16/2022 7:34 PM EDTGender IdentityNot on file Sexual OrientationNot on filedocumented as of this encounter Plan of Treatment DateTypeDepartmentCare Team (Latest Contact Info)Glthwczkltl08/12/2026 8:30 AM ESTOffice Visit [facility] [address] [place] [address] Elvia Brush MD [address] [place] [address] 10/01/2025 8:35 AM EDTOffice Visit [facility] [place] [facility] [address] [place] [address] Melody Manzano, FLUME RIDE OPERATOR-CLOTHING EXAMINER [address] [place] [address] documented as of this encounter Visit Diagnoses Not on filedocumented in this encounter Care Teams Team MemberRelationshipSpecialtyStart DateEnd Date Gerry Barton DO [address] [facility] [place] [address] PCP - GeneralInternal Medicine08/04/23 Destiny Gant MD [address] [facility] [address] [place] [address] Referring PhysicianDermatology10/31/23 Gerry Nelson DO [address] [place] [address] Otolaryngology10/31/23documented as of this encounter
--- OUTSIDE RECORDS SUMMARY | 2025-04-16 07:17 | XMS_ITS | Clinical Summary ---
Author Organization [facility] Address [address] [place] [address] Care Team Providers Care Billing And Accounting Staff Assistant Name Role Phone Gerry Barton DO Primary Care Provider [phone] Allergies Active AllergyReactionsCriticalityNoted AoefJyexbjgfLflnnrfuiInpxeov26/22/2021 kidney killer Piperacillin-SrwnpfqqvuJivcHmqe74/13/2010 Pt developed severe rash after zosyn initiated [...] daily.Active Active Problems ProblemNoted DateDiagnosed DateCentral line hhuuqys64/20/2022Diabetes mellitus 05/02/2019 Overview (05/02/2019): A/p: -Q6 Accuchecks -ISS BPH (benign prostatic hyperplasia)09/21/20095310Unpfdequcvk98/06/2010Drug-induced ceyxfmrhlslk98/06/2010 Overview (09/07/2009): chemotherapy Fever09/07/2009NHL (non-Hodgkin's lymphoma)08/27/2009 Overview (09/22/2009): Day: Protocol(s): Preparative regimen: Bu/Cy/DEPUTY SHERIFF BUILDING GUARD Mobilization regimen: DEPUTY SHERIFF BUILDING GUARD/G Stem cell source: PSC CD34 cell dose [...] SCDs, SQH D/c planning: RNF Small bowel teavgxffjus03 Immunizations ImmunizationAdministration DatesNext Dueinfluenza (HD-IIV3) vaccine, age [...] drink = 0.6 oz pure alcohol)PHQ-2AnswerDate RecordedPHQ-2 cecmq8781Area Deprivation Index AnswerDate RecordedNational Score (1-100), lower number is lower risk74 2022State Score (1-10), lower number is lower riskNot on file2022 Data from: https://www.neighborhoodatlas.medicine.[facility].edu/. Last address used for [address]22Sex and Gender InformationValueDate RecordedSex Assigned at BirthNot on fileLegal MojNpwx45/02/2012 8:27 AM EST Gender IdentityNot on fileSexual OrientationNot on file Last Filed Vital Signs Vital SignReadingTime TakenCommentsBlood Wcqigttt946/5403/23/2021 1:05 PM EDT Ooxwd441103/23/2021 1:05 PM OOGSrejqjprnjl34.3 ??C (97.4 ??F)03/23/2021 1:05 PM EDTRespiratory Jgks5401 1:05 PM EDTOxygen Mzeyhmheyv93%03/23/2021 1:05 PM EDTInhaled Oxygen Concentration--Wrqsup154.9 kg (233 lb 6.4 oz)03/23/2021 1:05 PM OLMCbolpq415.4 cm (6' 0.99 )03/23/2021 1:05 PM EDTBody Mass Index30.8 03/23/2021 1:05 PM EDT Plan of Treatment Health MaintenanceDue DateLast DoneCommentsAnxiety Pkwlwuren89/17/1966Depression Smitxacqt98/17/1966Hepatitis C Mghuubmil43/17/1966DTaP,Tdap,Td Vaccine (1 - Tdap)1966Pneumococcal Vaccine: 50+ (1 of 1 - PCV)1997RSV Vaccine (1 - 1-dose 75+ series)3Diabetes Jufsnbuuv42/20/649096, 05/03/2019, 05/02/2019, Additional history existsAdvance Directive Discussion 5Covid-19 Vaccine ( season)5002/23/2022, 09/13/2021, 01/17/2021, Additional history existsInfluenza Vaccine (#1)509/, 02/25/2021, 02/05/2020, Additional history existsShingrix VaccineCompleted 08/17/2019, 06/01/2019, 04/10/20132755PtqoxcmjmshFelapzystuoy79/22/2021Colorectal Cancer ScreeningDiscontinuedFecal Occult MqsuhGkzxiodyuzgs23/20/2021T ColonographyDiscontinuedCologuard (FIT-DNA)DiscontinuedSigmoidoscopyDiscontinued Procedures Procedure NamePriorityDate/TimeAssociated DiagnosisCommentsIMMUNOCHEMICAL FECAL OCCULT BLOOD YEECBojrsoc2021 1:57 PM EDT Non-Hodgkin's lymphoma, unspecified body region, unspecified non-Hodgkin lymphoma type (HCC) Anemia, unspecified type COMPREHENSIVE METABOLIC IGAXWVwtmhyg65/20/2021 1:05 PM EDT Follicular lymphoma, unspecified follicular lymphoma type, unspecified body region (HCC) from Last 3 Months or Most Recently Relevant to Health Maintenance Results * FECAL OCCULT BLOOD TEST (03/23/2021 1:57 PM EDT)ComponentValueRef RangeTest MethodAnalysis TimePerformed AtPathologist SignatureOccult Blood, Stool PyolpywtBiadnjzh04/01/2021 2:57 PM EDTCKettering Health – Soin Medical Center LaboratoriesComment: This test was developed and its performance characteristics determined by [facility]'s [facility] and Laboratory Medicine [place] (RT PLMI). It has not been cleared or approved by the FDA. [facility]3] is regulated under CLIA as qualified to perform high complexity testing. This test is used for clinical purposes. It should not be regarded as investigational or for research. Specimen (Source)Anatomical Location / LateralityCollection Method / Volume Collection TimeReceived TimeStool RandomSTOOL SPECIMEN / Awjjves5503/23/2021 1:57 PM EDT106/04/2020 2:57 PM EDT Narrative Authorizing ProviderResult TypeResult StatusHolly Boni MESAN.CNPLABORATORY Final ResultPerforming OrganizationAddressCity/State/ZIP CodePhone Number [facility] [address] [place] [address] [facility] [address] [place] [address] * (ABNORMAL) COMP METABOLIC PANEL (03/23/2021 1:05 PM EDT)ComponentValueRef RangeTest MethodAnalysis TimePerformed AtPathologist SignatureProtein, Total 6.2(L)6.3 - 8.0 g/dL03/23/2021 1:42 PM EDTCACMC Healthcare System Cancer CareAlbumin3.93.9 - 4.9 g/dL03/23/2021 1:42 PM [facility] Cancer CareCalcium8.98.5 - 10.2 mg/dL03/23/2021 1:42 PM [facility] Cancer CareBilirubin, Total0.30.2 - 1.3 mg/dL03/23/2021 1:42 PM [facility] CareAlkaline Msybfdyzwot796(H)38 - 113 U/L1 1:42 PM [facility] Cancer LzvaSVO14(L)14 - 40 U/L1 1:42 PM [facility] Cancer EwnfSlkionn471 (H)74 - 99 mg/dL03/23/2021 1:42 PM [facility] Cancer Care Comment: The [place] Diabetes Association (ADA) provides guidance for cutoff [...] Standards of Medical Care in Diabetes 2016, [place] Diabetes Association. Diabetes Care. 2016.39(Suppl 1). BUN29(H)9 - 24 mg/dL03/23/2021 1:42 PM [facility] Cancer CareCreatinine2.54(H)0.73 - 1.22 mg/dL03/23/2021 1:42 PM [facility] Cancer VllfHmaqhk424(L)136 - 144 mmol/L1 1:42 PM T [facility] Cancer CarePotassium4.73.7 - 5.1 mmol/L1 1:42 PM [facility] Cancer XfwlLlnxdjnc016(H)97 - 105 mmol/L 03/23/2021 1:42 PM EDTCACMC Healthcare System Cancer IipbTZ439(L)22 - 30 mmol/L1 1:42 PM [facility] Cancer CareAnion Gap7 (L)9 - 18 mmol/L1 1:42 PM [facility] Cancer [facility] UZS9129 - 54 U/L1 1:42 PM [facility] Cancer [facility] eGFR- Esmdxndx8136/20/2021 1:42 PM [facility] Cancer CareeGFR-All Other Races25.03/23/2021 1:42 PM [facility] Cancer [facility] [place]Comment: eGFR (Estimated GFR) Units of measure: mL/min/1.73 [...] / Volume Collection TimeReceived TimeBloodBLOOD SPECIMEN / Jemiphk0703/23/2021 1:05 PM EDT 03/23/2021 1:06 PM EDT Narrative Authorizing ProviderResult TypeResult StatusPaulo Kidd MDLABORATORYFinal ResultPerforming OrganizationAddressCity/State/ZIP CodePhone Number [facility] [address] [place] [address] [facility] [address] [place], [place] from Last 3 Months or Most Recently Relevant to Health Maintenance Insurance Advance Directives TypeDate RecordedPatient RepresentativeExplanationAdvance Directive(s)09/10/2009 10:04 PM Care Teams Team MemberRelationshipSpecialtyStart DateEnd Date Gerry Barton DO [address] [place] [address] [facility]09/07/09
--- OUTSIDE RECORDS SUMMARY | 2025-04-16 07:17 | XMS_ITS | Clinical Summary ---
Author Organization [employer] [facility] tem Address [id number] [address] [place] [address] Care Team Providers Care Senior Marketing Specialist Name Role Phone Gerry Barton Primary Care Provider [phone] Allergies Active AllergyReactionsCriticalityNoted DateCommentsPiperacillin-TazobactamRash High09/14/2009 Pt states he turned purple then shed all his skin weeks later Pt developed severe rash after zosyn initiated Bztrxised10/22/2021 kidney killer Medications MedicationSigDispense QuantityRefillsLast FilledStart DateEnd [...] standard drink = 0.6 oz pure alcohol)ChildcareAnswerDate TmmrpydoSqsqypzaqFdpyieu56/12/2019EmploymentAnswer Date UjfhclbpZchzgjiffmOvkmctj31/12/2019Hunger ScreeningAnswerDate Recorded Within the past 12 months we worried whether our food would run out before we got money to buy more.Never True02/28/2023Food Insecurity - InabilityNot on file 02/28/2023urpose - LifeAnswerDate RecordedPurpose and direction in lifeUnknown 07/15/2020ex and Gender InformationValueDate RecordedSex Assigned at BirthNot on fileLegal JqbOhib1001/07/2015 11:21 AM EDTGender IdentityNot on fileSexual OrientationNot on file Last Filed Vital Signs Vital SignReadingTime TakenCommentsBlood Ovttybuq749/8102/28/2023 8:51 AM EDT Jqkmg470202/28/2023 8:51 AM HNMLtyrtqpzwpe24.2 ??C (97.1 ??F)04/21/2022 9:24 AM ESTRespiratory Phpv260306/11/2021 1:00 PM ESTOxygen Egtkoahwtd83%04/11/2022 1:00 PM ESTInhaled Oxygen Concentration--Uugswp759.1 kg (231 lb 9.6 oz)02/28/2023 8:51 AM GEIGfingg006 cm (6' 2 )02/28/2023 8:51 AM EDTBody Mass Index29.74 02/28/2023 8:51 AM EDT Plan of Treatment Health MaintenanceDue DateLast DoneCommentsDepression Ymohzokae19/17/1960Tobacco Dnzlywhrf92/17/1960DTaP,Tdap and Td Vaccines (1 - Tdap)1966Fall Risk Gjibsqsuu08/17/2013RSV ( or age 60+ yrs) (1 - 1-dose 75+ series) 3COVID-19 Vaccine ( season)509/, 09/13/2021, 01/17/2021, Additional history existsInfluenza Tvrfjjt86/01/431825/, 02/25/2021, 02/05/2020, Additional history existsZoster (Shingles) Vaccine Lqsolmduy24/15/2020, 06/01/2019, 04/10/2013 Medical Devices ImplantedTypeAreaManufacturerDevice IdentifierShelf Expiration DateModel / Serial / LotPort Powerport Mri Argd 8fr [address] [facility] [address] Intmd Kt Cecille Jostin - Sna - [id number] Implanted:Qty: 1 on 04/11/2022 by Radames Chacon [facility] HEALTHTPortN/A: ChestBard Peripheral Cqylzqdg85/31/[id number] / NA / [id number] Insurance Care Teams Team MemberRelationshipSpecialtyStart DateEnd Date Gerry Barton DO [address] [place] [address] PCP - GeneralInternal Zlwlezec85/17/22
--- OUTSIDE RECORDS SUMMARY | 2025-04-16 07:17 | XMS_ITS | Encounter Summary ---
Author Organization [facility] Address [address] [place] [address] Care Team Providers Care Mold Loft Worker Name Role Phone Mick Gerry Mann DO Primary Care Provider [phone] Destiny Gant MD Unavailable [phone] Gerry Nelson DO Unavailable [phone] Encounter Details DateTypeDepartmentCare Team (Latest Contact Info)Cwjgwfajhwe74/06/2025Results Follow-Up [facility] [address] [place] [address] Melody Manzano, SUPERVISING FILM OR VIDEOTAPE EDITOR-LINEMARKER [address] [place] [address] Dermatopathology exam Social History Tobacco UseTypesPacks/DayYears UsedDateSmoking Tobacco: NeverSmokeless Tobacco: NeverAlcohol UseStandard Drinks/WeekCommentsYes0 (1 standard drink = 0.6 oz pure alcohol)Monthly or lessSex and Gender InformationValueDate RecordedSex Assigned at BirthNot on fileLegal XzzHvxb5608/16/2022 7:34 PM EDTGender IdentityNot on file Sexual OrientationNot on filedocumented as of this encounter Plan of Treatment DateTypeDepartmentCare Team (Latest Contact Info)Goutwkokloe06/12/2026 8:30 AM ESTOffice Visit [facility] [address] [place] [address] Elvia Brush MD [address] [place] [address] 10/01/2025 8:35 AM EDTOffice Visit [facility] [place] [facility] [address] [place] [address] Melody Manzano, SUPERVISING FILM OR VIDEOTAPE EDITOR-LINEMARKER [address] [place], [place] [address] documented as of this encounter Visit Diagnoses Not on filedocumented in this encounter Care Teams Team MemberRelationshipSpecialtyStart DateEnd Date Gerry Barton, [address] [facility] [place] [address] PCP - GeneralInternal Medicine08/04/23 Destiny Gant MD [address] [place] [address] Referring PhysicianDermatology10/31/23 Gerry Nelson DO [address] [place] [address] Otolaryngology10/31/23documented as of this encounter
--- OUTSIDE RECORDS SUMMARY | 2025-04-16 07:17 | XMS_ITS | Clinical Summary ---
Author Organization [facility] Address [address] [facility], [address] [place] [address] Care Team Providers Care Electric Motor Winders Assembler Name Role Phone Gerry Barton DO Primary Care Provider [phone] Allergies Active AllergyReactionsCriticalityNoted DateCommentsPiperacillin Sod-Tazobactam SoOther (See [...] days.Active Active Problems ProblemNoted DateDiagnosed DateClaw toe, dikmlyvl73/13/2014 Overview (08/14/2013): Left great toe Ulcer of [...] Last Filed Vital Signs Vital SignReadingTime TakenCommentsBlood Zpxmnaei677/76009/25/2013 8:57 AM EDT Pybik255109/25/2013 8:57 AM JCKLmtjjffxlux45.7 ??C (96.3 ??F)09/25/2013 8:57 AM EDTRespiratory Cfxb832309/25/2013 8:57 AM EDTOxygen Ebxitzbpcb89%08/15/2013 8:45 AM EDTInhaled Oxygen Concentration--Xmkqqh461.5 kg (248 lb)09/25/2013 8:57 AM JOLBxpftw649 cm (6' 2 )09/25/2013 8:57 AM EDTBody Mass Index31.8409/25/2013 8:57 AM EDT Plan of Treatment Not on file Care Teams Team MemberRelationshipSpecialtyStart DateEnd Date Gerry Barton DO [address] [place] [phone] [facility] - Upqvsqw44/5/13
--- OUTSIDE RECORDS SUMMARY | 2025-04-16 07:17 | XMS_ITS | Clinical Summary ---
Author Organization [facility] Healthcare Address [address] [place] [address] Care Team Providers Care Stunt Performer Name Role Phone Gerry Barton DO Primary Care Provider [phone] Destiny Gant MD Unavailable [phone] Gerry Nelson DO Unavailable [phone] Allergies Active AllergyReactionsCriticalityNoted FufvYsqxsfzaJmaxgxtvxOmtkehq01/22/2021 kidney killer Ketorolac PuvudropbdrbMcpzzwp94/21/5256Mbroqipbslru28/20/2024 Other Reaction(s): Redness of Skin Piperacillin Sod-Tazobactam PnDtfps8204/10/2013 Other Reaction(s): TURNED PURPLE Skin turned purple and pealed off Piperacillin-Tazobactam In PevKhehAvxd04/13/2010 Pt states he turned purple then shed all his skin weeks later Pt developed severe rash after zosyn initiated Pt developed severe rash after zosyn initiated XckemhkfyeOqfxnbx62/20/2024 Medications MedicationSigDispense QuantityRefillsLast FilledStart DateEnd DateStatus aspirin [...] morning.Active Active Problems ProblemNoted DateDiagnosed DateAnkylosis, right nphkagee14/20/2024rthritis 08/22/2023symptomatic microscopic ewrraiuew37/20/2024leeding disorder 08/22/2023PH with urinary qrjtfxaedzy20/20/2024Elevated PSA08/22/2023Glucosuria 08/22/2023Hammertoe of left foot08/22/20235115Hcqywqhn16/20/2024Other chronic pain 08/22/2023ain in right mjdipppv17/20/2024resence of both artificial knee zxfwkz5708/22/2023rotein in urine08/22/2023Skin ulcer of toe of left foot with fat layer vllbwjq5508/22/2023Type 2 diabetes mellitus with neurological npbddclfhizjz86/20/2024entral line ijwqnmo03/20/2022Diabetes blvoizve99/29/2019 Overview (08/22/2023): A/p: -Q6 Accuchecks -ISS Claw toe, therwnyq17/13/2014 Overview (08/22/2023): Left great toe Hemorrhage of gastrointestinal tract11/24/2010PH (benign prostatic hyperplasia) 09/21/2009Drug-induced tpgqeofysarr20/06/2010 Overview (08/22/2023): chemotherapy Fever09/07/20095336Mbunibtlebb52/06/2010NHL (non-Hodgkin's lymphoma)08/27/2009 Overview (08/22/2023): Day: Protocol(s): Preparative regimen: Bu/Cy/DICTAPHONE TRANSCRIBER Mobilization regimen: DICTAPHONE TRANSCRIBER/G Stem cell source: PSC CD34 cell dose (x10e6/kg): 3.64 Date of transplant: 09/29/09 Resolved Problems ProblemNoted DateDiagnosed DateResolved DatePrimary ugyncgcmcldf68/03/2024 09/05/2023ernicious fgtlnm20Other obesity due to excess ddlylmyt72Hyperlipidemia, mixedody mass index (BMI) 30.0-30.9, adulthronic venous insufficiency Encounters DateTypeDepartmentCare OqswLvtpfbolffn81/06/2025Results Follow-Up [facility] [place] [facility] [address] [place] [address] Melody Manzano [employer] Dermatopathology exam04/02/2025 8:35 AM EDTOffice Visit [facility] [place] [facility] [address] [place] [address] Melody Manzano [employer] Actinic keratosis; Seborrheic keratosis; Melanocytic nevus of right upper extremity; Melanocytic nevus of left upper extremity; Capillary angioma; Lentigines; History of SCC (squamous cell carcinoma) of skin; Neoplasm of unspecified behavior of bone, soft tissue, and skin04/02/2025amboo flowsheet [facility] [address] [place] [address] Melody Manzano [employer] 04/02/20253605Vadqdi72/22/2025External Result Encounter [facility] External Department Unsolicited Arya Peña DO 03/24/2025External Result Encounter [facility] External [facility] Unsolicited Arya Peña DO from Last 3 Months Immunizations ImmunizationAdministration DatesNext DueDTaP, Izjlruodvyi20/15/2018,03/26/2002 Influenza, High Dose Seasonal, Preservative Free04/12/2017,03/15/2016,04/06/2015 Influenza, High-dose Seasonal, Quadrivalent, Preservative Free02/05/2020 Influenza, Seasonal, Quadrivalent, Zeqrmfiich95/10/2023,02/23/2022Influenza, Cceporqsjdn24/09/2019Influenza, trivalent, hpsgjoiuur52/24/2021,03/26/2018 Pneumococcal Conjugate PCV 13106/09/2014Pneumococcal Polysaccharide PPSV23 03/16/2014Td (adult), 5 Lf tetanus toxoid, preservative free, gmbzwiku86/13/2014 Zoster, Grhxffsdppm70/15/2020,06/01/2019Zoster, live04/10/2013 Family History Medical HistoryRelationNameCommentsCancerDaughterHeart diseaseDaughter HypertensionDaughterKidney diseaseDaughterKidney diseaseFatherDiabetesMother Heart diseaseMotherHypertensionMotherStrokeMotherRelationNameStatusComments DaughterFatherDeceasedMotherDeceased Social History Tobacco UseTypesPacks/DayYears UsedDateSmoking Tobacco: NeverSmokeless Tobacco: Never Tobacco Cessation:Counseling Given: Not Answered Alcohol UseStandard Drinks/WeekCommentsYes0 (1 standard drink = 0.6 oz pure alcohol)Monthly or lessSex and Gender InformationValueDate RecordedSex Assigned at BirthNot on fileLegal DugDaxa6508/16/2022 7:34 PM EDTGender IdentityNot on file Sexual OrientationNot on file Last Filed Vital Signs Vital SignReadingTime TakenCommentsBlood Dqhywoew476/8405/22/2023 9:37 AM EST Pulse--Temperature--Respiratory Rate--Oxygen Saturation--Inhaled Oxygen Concentration--Roctlp561 kg (230 lb)10/31/2023 3:20 PM VOCBxjckd326 cm (6' 2 ) 10/31/2023 3:20 PM EDTBody Mass Index29.53010/31/2023 3:20 PM EDT Plan of Treatment DateTypeDepartmentCare Team (Latest Contact Info)Tncibbanwxt73/12/2026 8:30 AM ESTOffice Visit [facility] [place] [facility] [address] [place] [address] Elvia Brush MD [address] [place] [address] 10/01/2025 8:35 AM EDTOffice Visit [facility] [place] [facility] [address] [place] [address] Melody Manzano, [employer] [address] [place] [address] Health MaintenanceDue DateLast DoneCommentsCOVID-19 Vaccine ( season) , 02/13/2024, 03/13/2023, Additional history exists Pneumococcal Vaccine: 65+ RbzhnPwsaosfrz21/06/2015, 03/16/2014Colorectal Cancer BkwhrfccdWvurdselbrdiOCIHiemymigwhwv75/20/2021Influenza VaccineCompleted 02/04/2025, 02/13/2024, 03/13/2023, Additional history existsCT Colonography DiscontinuedColonoscopyDiscontinuedFIT-DNADiscontinuedFOBTDiscontinued SigmoidoscopyDiscontinued Procedures Procedure NamePriorityDate/TimeAssociated DiagnosisCommentsSKIN / NAIL BIOPSY Upidkps3904/02/2025 8:27 AM EDT Neoplasm of unspecified behavior of bone, soft tissue, and skin SKIN / NAIL YWLEFSWpvrnud19/30/2025 8:26 AM EDT Neoplasm of unspecified behavior of bone, soft tissue, and skin CRYOTHERAPY SKIN CQAGCJFaysfwj40/30/2025 8:25 AM EDT Actinic keratosis ZZDERMATOPATHOLOGY EXAM DPLSMPESLVEXpeepcs42/30/2025 12:00 AM EDT Actinic keratosis Neoplasm of unspecified behavior of bone, soft tissue, and skin DERMATOPATHOLOGY CXSCQsyybvy17/30/2025 12:00 AM EDT Neoplasm of unspecified behavior [...] 0.5 cc Authorizing ProviderResult TypeResult StatusNatalie A Natacha [employer]ESSIONALS-CNPDERM PROCEDURE ORDERABLESFinal Result * Lesion biopsy (04/02/2025 [...] cc Authorizing ProviderResult TypeResult StatusNatalie A Felter [employer]-CNPDERM PROCEDURE ORDERABLESFinal Result * Cryotherapy, skin lesion (04/02/2025 8:25 AM EDT) Narrative Authorizing ProviderResult TypeResult StatusNatalie A Felter [employer]-CNPDERM PROCEDURE ORDERABLESFinal Result * Dermatopathology exam (04/02/2025 12:00 AM EDT)ComponentValueRef RangeTest MethodAnalysis TimePerformed AtPathologist SignatureSPECIMEN TYPE SPECIMEN: MID PARIETAL SCALP VIVIENNE PLVGWIEIULATLC75 Code C44.42AURORA DIAGNOSTICSPROTOCOLFF - FLAT, FRAGMENTAURORA DIAGNOSTICSFinal [...] TYPE SPECIMEN: LEFT TIP OF NOSE VIVIENNE SFOUQOJFJANVPT16 CodeL57.0AURORA DIAGNOSTICSPROTOCOLF - FLATAURORA DIAGNOSTICSFinal DiagnosisACTINIC KERATOSIS.VIVIENNE DIAGNOSTICSGross TextAURORA DIAGNOSTICSMicroscopic DescriptionMicroscopic examination performed.VIVIENNE PWJBZEHNZJRUWD77486*2AURORA DIAGNOSTICSSpecimen (Source)Anatomical Location / LateralityCollection Method / VolumeCollection TimeReceived TimeSkin (tissue) specimen (specimen)Topography unknown / Wmfwfit9004/02/2025 8:26 AM EDTComment: Differential Diagnosis: AK vs SCC Check Margins: No Size of lesion: 1.1 x 0.9 cm Skin (tissue) specimen (specimen)Topography unknown / Yjpjkgh2304/02/2025 8:27 AM EDTComment:Differential Diagnosis: BCC vs SCC Check Margins: No Size of lesion: 0.4 x 0.4 cm Narrative Authorizing ProviderResult TypeResult StatusNatalie Edward Manzano [employer] PATHOLOGY ORDERABLESFinal ResultPerforming OrganizationAddressCity/State/ZIP CodePhone [...] Location: RADIO-PC-16 ? Transcribed By: ? PWS ?03/25/25 0846 ? Dictated By: ?Martin,Guillermo S DO ?03/25/25 0845 ? Signed By: <Electronically signed by Guillermo Salazar, DO in OV> ? 03/25/25 0846 Narrative 03/25/2025 8:49 AM EDT [facility] ?[facility] [place] ?[address] ? [place] [address] ?XRay Report ? Signed ? Patient: Regalado,Emanuel L ?MR#: [id number] ?? [id number] ? : 1945 ?Acct:[id number] ? Age/Sex: 79 / M ?ADM Date: 03/24/25 ? Loc: 4N ?Room: ??1G3914-8 ?Type: ADM IN ?? Attending Dr: Bryon [...] ?? Procedure Note Radiology, Radiologist, - 03/25/2025 [facility] [place] [address] [place] [address] XRay Report Signed Patient: Emanuel Regalado LMR#: [id number] : 8Acct:[id number] Age/Sex: 79 / MADM Date: 03/24/25 Loc: Room: 6B4402-5Iias: ADM IN Attending Dr: Bryon Aguilar MD [...] Salazar M.D. 03/25/2025 8:46 AM Dictation Location: [place] [address] Transcribed By: [facility] 03/25/25 0846 Dictated By: Gulilermo Salazar DO 03/25/25 0845 Signed By: <Electronically signed by Guillermo Salazar DO in OV> 03/25/25 0846 Authorizing ProviderResult TypeResult StatusFredric H Mariana DOIMG XR PROCEDURESFinal Result from Last [address] [place] [address] [place] [address] [place] [address] Care Teams Team MemberRelationshipSpecialtyStart DateEnd Date Gerry Barton DO [address] [facility] [place] [address] PCP - GeneralInternal Medicine08/04/23 Destiny Gant MD [address] [facility] [address] [place] [address] Referring PhysicianDermatology10/31/23 Gerry Nelson DO [address] [facility] [place] [address] Otolaryngology10/31/23
--- OUTSIDE RECORDS SUMMARY | 2025-04-16 07:17 | XMS_ITS | CCD ---
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 Name Role Phone Gerry Chang DO Primary Care Provider MARYJO KIDD Referring Unavailable GERRY CHANG Primary Care Unavailable KENDALL HONEYCUTT Attending Unavailable KINGS JONES Referring Unavailable GERRY CHANG Primary Care Unavailable YOLY BOSS Referring Unavailable GERRY CHANG Primary Care Unavailable GERRY CHANG Primary Care Physician [phone] Bernardo, Gerry Unavailable BERNARDO, DR GARRETT Primary Care Unavailable BALL, DR GARRETT Consulting Unavailable BALL, DR GARRETT Admitting Unavailable BALL, DR GARRETT Attending Unavailable GRILLIS ., DR BLADIMIR Mann Attending Unavaila ble GRILLIS ., DR BLADIMIR Mnan Admitting Unavaila ble GRILLIS ., DR BLADIMIR Mann Consulting Unavaila ble BALL, DR GARRETT Primary Care Unavailable [place], DR ALONZO Hernandez Consulting Unavailable BALL, DR [...] DR GARRETT Primary Care Unavailable Ball, DO Gerry Primary Care Provider DO Gerry Nelson Attending Provider [phone] Gerry Chang MD Primary Care Provider Destiny Gant MD Unavailable [phone] Gerry Nelson DO Unavailable TIMOTEO DUKES Attending Unavailab TIMOTEO Mendoza Admitting Unavailab Jenaro Arboleda Admitting Unavailable Jenaro HANSEN Attending Unavailable Jenaro HANSEN Attending Unavailable TIMOTEO DUKES Attending Unavailab le Gerry Chang DO Primary Care Provider Jenaro Hansen MD Attending Provider Vaishali Howell MD Attending Provider [phone] Aileen Dukes PA-C E Attending Provider Bernardo DO, Gerry Attending Provider [phone] Bernardo , Gerry Primary Care Provider [phone] Jenaro Hansen MD Attending Provider Bernardo DO, Gerry Primary Care Provider Vaishali Howell MD Attending Provider Jenaro HANSEN Attending Unavailable Jenaro HANSEN Attending Unavailable GERRY CHANG Referring Unavailable Jenaro HANSEN Attending Unavailable Jenaro HANSEN Attending Unavailable Jenaro HANSEN Admitting Unavailable Bernardo DO, Gerry Primary Care Provider Vaishali Howell MD Attending Provider Bernardo DO, Gerry Primary Care Provider Bernardo TEJADA, Gerry Attending Provider Guillermo Masterson DO Attending Provider Moise Walker MD Admit Provider Arya Peña DO Other Provider Nathan Jones MD Other Provider Damaso Arellano DO Other Provider Bryon Aguilar MD Attending Provider [phone] Guillermo Masterson Attending Unavailable Guillermo Masterson Admitting Unavailable Moise Walker Admitting Unavailable Bryon Aguilar Attending Unavailable Arya Peña Consulting Unavailable Bernardo Gerry [facility] Unavailable Nathan Jones Consulting Unavailable Damaso Arellano Consulting Unavailable Bernardo TEJADA, Gerry E Primary Care Provider Bernardo TEJADA, Gerry Primary Care Provider [phone] Bernardo TEJADA, Gerry Attending Provider Cynthia Dasilva CMA Attending Provider UnavailASHLEY Moody Attending Unavailable Jenaro HANSEN Attending Unavailable Allergies Allergy ClassificationReported Allergen(s)Allergy TypeDate of OnsetReaction(s) Facility (20 sources)Ketorolac; Translations: [KETOROLAC]Drug Eetbuoj58-93-6655Tpknbyl, Unknown (qualifier value)[facility] (20 sources)Piperacillin / tazobactam; Translations: [PIPERACILLIN-TAZOBACTAM] Drug Cswkofp70-33-0100Eihd, Eruption of skin (disorder)[facility] (16 sources)Vorinostat; Translations: [vorinostat]Drug Voblqns95-62-1865Totwuku (qualifier value)[facility] (4 sources)Ketorolac; Translations: [Toradol]Drug AllergyThe [facility] (1 source)Piperacillin / tazobactamDrug Yvrotop88-22-6055Ojq [facility] Rep[facility] (4 sources)tazobactam; Translations: [tazobactam]Drug Kzqdzzj10-79-3965[facility]Ohio[facility] (3 sources)patient allergy list reviewed by nurse or physiciaPropensity to adverse tgkuooiul84-27-8829Awrkwge:[employer] Other (3 sources)Allergies ReconciledPropensity to adverse reactionsMineral Area Regional Medical Center [facility] Other (5 sources)KetorolacAllergy to ryesmsbom48-19-9269AmgosxlPLEB Healthcare Work Phone: (5 sources)Ketorolac trometamolAllergy to ubypopdmy99-61-6446WjojpydVNWF Healthcare (11 sources)PiperacillinDrug Iaikogw76-79-7426Fpvrukc of SkinNOMissouri [facility] Comment on above:turned purple (5 sources)Piperacillin / tazobactamDrug Jgvokxa14-96-5111YuxoYSQG Healthcare (5 sources)VorinostatDrug Tmodinz29-39-7670DvkjuqxROWV Healthcare Work Phone: (5 sources)Piperacillin Sod-Tazobactam SoDrug Idaoxgjtyxo64-00-5710EgkjhSWBL Healthcare (4 sources)tazobactam; Translations: [tazobactam]Drug Imzjfvd96-88-4064Xnlougn [facility] (1 source)KetorolacDrug Fsptuvl72-85-5549XnlstxqgmWilson Health Repository (1 source)PiperacillinDrug Berhlqt51-95-4278SxvfdyhdvWilson Health Repository Medications Current Medications MedicationDrug Class(es)DatesSig (Normalized)Sig (Original)Aspir-81 81 MG (14 sources)take 1 tablet by mouth three times weeklyAspir-81 81 MG 1 tablet Orally THREE TIMES A WEEK for 30 day(s) Activeaspirin 81 mg delayed release oral tablet (20 sources)Platelet Aggregation Inhibitor, Nonsteroidal Anti-inflammatory Drug Start: 03-59-4545nobr 1 tablet by mouth three times weeklyAspirin 81 mg tablet,delayed release (DR/EC) Active 81 MG PO 3 Times a week July 25, 2023 1:00am Complies with 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Start: 11-56-5215vlav 81 mg by mouth once dailyaspirin 81 mg, Oral, Daily, Refills(s) 0 Start Date: 11/27/19 Status: Ordered Medication Dispense Status: Completed Total Allowed Fills: 1 Fills Dispensed: 0Start: 94-94-8976mievnum Refills(s) 0 Start Date: 11/27/19 Status: Orderedtake [...] tablet (20 sources)HMG-CoA Reductase InhibitorStart: 10-17-2023 End: 21-33-2808crfz 1 tablet by mouth once daily in the eveningAtorvastatin 10 mg tablet Active 0 .ROUTE .COMPLEX 90 October 02, 2024 7:43am TAKE 1 TABLET BY MOUTHEVERY EVENING Complies with 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Start: 11-27-2019 End: 51-06-1745scvz 10 mg by mouth once dailyatorvastatin 10 mg, Oral, Daily, Refills(s) 0 Start Date: 11/27/19 Status: Ordered Medication Dispense Status: Completed Total Allowed Fills: 1 Fills Dispensed: 0Start: 51-67-3082msnaupyibpbl Oral, Daily, Refills(s) 0 Start Date: 11/27/19 Status: OrderedComment on above: Take 10 mg by mouth once daily.benazepril hydrochloride 10 mg oral tablet (5 sources)Angiotensin Converting Enzyme Inhibitortake 1 tablet by mouth in the morningbenazepril (Lotensin) 10 MG tablet Take 10 mg by mouth in the morning. Activecalcitriol 0.96489 mg oral capsule (20 sources)Vitamin D3 AnalogStart: 32-73-6209qvgs 1 capsule by mouth three times weeklyCalcitriol 0.25 mcg capsule Active 0.25 MCG PO 3 Times a week January 26, 2025 1:39pm Complies with 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Start: 12-29-2024 End: 82-83-7159Gfwicnzkjj 0.25 mcg capsule Discontinued 0 .ROUTE .COMPLEX 36 December 29, 2024 10:27am January 26, 2025 1:39pm TAKE 1 CAPSLUE 3 TIMES A WEEK. ADMINISTER AFTER DIALYSIS ON DIALYSIS DAYSStart: 12-70-8331ovdk 1 capsule by mouth once dailycalcitriol 0.25 mcg Cap 0.25 mcg = 1 cap(s), Oral, Daily Start Date: 10/06/24 Status: Ordered Medication Dispense Status: Completed Total Allowed Fills: 1 Fills Dispensed: 0Start: 07-21-2024 End: 46-02-8018eiab 1 capsule by mouth every weekCalcitriol 0.25 mcg capsule Discontinued 0.25 MCG PO 3 Times a week 40 July 21, 2024 1:00amJuly 2024 10:28am administer after dialysis on dialysis dayscalcium carbonate 1500 mg oral tablet (16 sources)Start: 64-09-9709qxpt 1 tablet by mouth once dailycalcium (as carbonate) 600 mg oral tablet 600 mg = 1 tab(s), Oral, Daily Start Date: 10/06/24 Status:Ordered Medication Dispense Status: Completed Total Allowed Fills: 1 Fills Dispensed: 0Start: 23-58-1717kebe 1 tablet by mouth once dailyCalcium Carbonate 600 mg calcium (1,500 mg) tablet Active 600 MG PO Daily May 05, 2024 1:00amComplies with 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carvedilol 6.25 mg oral tablet (20 sources)alpha-Adrenergic Shira, beta-Adrenergic BlockerStart: 11-15-2023 End: 26-66-6519ynpy 1 tablet by mouth twice dailyCarvedilol 6.25 mg tablet Discontinued 0 .ROUTE .COMPLEX 180 October 30, 2024 7:23am January 26, 2025 1:39pm TAKE 1 TABLET BY MOUTH TWICE A DAYStart: 98-90-8179swlcetkuhl Oral, Refills(s) 0 Start Date: 11/27/19 Status: OrderedStart: 06-15-2014 End: 72-08-3200lwza 1 tablet by mouth twice dailyCarvedilol 6.25 mg tablet Active 6.25 MG PO Twice daily January 26, 2025 1:37pm Complies with drugtherapy Comment on above:Take 6.25 mg by mouth twice [...] 100 mg oral capsule (20 sources)Anti-epileptic AgentStart: 41-38-6449cwgr 1 capsule by mouth once daily in the eveningGabapentin 100 mg capsule Active 0 .ROUTE .COMPLEX 30 5 February 08, 2025 8:37am TAKE 1 CAPSULE BY MOUTH EVERY EVENING Complies with 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Start: 07-30-2024 End: 18-52-2030ibgm 1 capsule by mouth once daily in the eveningGabapentin 100 mg capsule Discontinued 100 MG PO Daily 30 30 August 28, 2024 5:03pm February 08, 2025 8:37am Take in evening dailyglimepiride 4 mg oral tablet (20 sources)SulfonylureaStart: 11-19-2023 End: 43-55-2821tasf 2 tablets by mouth once daily in the morningGlimepiride 4 mg tablet Discontinued 0 .ROUTE .COMPLEX 180 3 November 23, 2024 5:12pm January 26, 2025 1:39pm TAKE 2 TABLETS BY MOUTH EVERY MORNING 30 MINUTES PRIOR TO BREAKFAST Start: 06-17-2338nzlp 4 mg by mouth once dailyGlimepiride Active 4 MG PO Daily July 25, 2023 12:00amStart: 84-34-5231jfzbseddctw Oral, Daily, Refills(s) 0 Start Date: 11/27/19 Status: OrderedStart: 06-19-2012 End: 03-59-8237oiuf 1 tablet by mouth twice dailyGlimepiride 4 mg tablet Active 4 MG PO Twice daily January 26, 2025 1:38pm Complies with 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 Glimepiride 4 MG TAKE 2 TABLETS BY MOUTH EVERY MORNING 30 MINUTES PRIOR TO BREAKFAST for 90 ActiveComment on above:Take 4 mg by mouth twice daily with meals.3 ml insulin glargine 100 unt/ml pen injector (16 sources)Insulin AnalogStart: 13-98-0744shtobh 8 [IU] by subcutaneous injection once dailyBasaglar KwikPen 100 units/mL subcutaneous solution 8 unit(s), SubCutaneous, Daily Start Date: 10/06/24 Status: Ordered Medication Dispense Status: Completed Total Allowed Fills: 1 Fills Dispensed: 0Start: 73-66-5363dvjluy 8 [IU] by subcutaneous injection once daily [...] 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Levemir FlexPen 100 UNIT/ML (2 sources)Start: 38-09-2485Tpippkd FlexPen 100 UNIT/ML 12 units Subcutaneous Once daily for 90 days Jul, Activelisinopril 2.5 mg oral tablet (20 sources)Angiotensin Converting Enzyme InhibitorStart: 09-18-2023 End: 04-59-0376affb 1 tablet by mouth once dailyLisinopril 2.5 mg tablet Discontinued 0 .ROUTE .COMPLEX 90 3 September 07, 2024 2:55pm January 26, 2025 1:39pm TAKE 1 TABLET BY MOUTH EVERY DAYStart: 11-27-2019 End: 51-66-4638zhsq 1 tablet by mouth once dailyLisinopril 2.5 mg tablet Active 2.5 MG PO Daily January 26, 2025 1:38pm Complies with 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Start: 53-60-9045xjhivtfqqh Oral, Daily, Refills(s) 0 Start Date: 11/27/19 Status: OrderedComment on above:Take 2.5 mg by mouth once daily.Magnesium Aspart,Citrate,Oxide 400 mg magnesium capsule (19 sources)Start: 34-26-3851abfp 1 capsule by mouth once dailyStart: 10-29-2024 take 1 capsule by mouth once dailyMagnesium Aspart,Citrate,Oxide 400 mg magnesium capsule Active 400 MG PO Daily October 29, 2024 9:15am Complies with 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Start: 92-01-9280iblf 1 capsule by mouth once dailyMagnesium Aspart,Citrate,Oxide 400 mg magnesium capsule Active 400 MG PO Daily October 29, 2024 9:15amStart: 07-30-2024 End: 32-43-9068Yevlmtmji Aspart,Citrate,Oxide 400 mg magnesium capsule Discontinued MG PO July 30, 2024 1:00am October 29, 2024 9:15amStart: 38-12-1319Szebsjgbc Aspart,Citrate,Oxide 400 mg magnesium capsule Active MG PO July 30, 2024 12:00ammagnesium oxide 400 mg oral tablet (4 sources)Start: 88-79-4458ndfi 1 tablet by mouth once dailymagnesium oxide 400 mg Tab 400 mg = 1 tab(s), Oral, Daily Start Date: 10/06/24 Status: Ordered Medication Dispense Status: Completed Total Allowed Fills: 1 Fills Dispensed: 0 Metformin & Diet Manage Prod 500 MG (11 sources)Metformin & Diet Manage Prod 500 MG as directed Orally TWICE DAILY Activemolnupiravir 200 MG Oral Capsule [Lagevrio] (2 sources)Start: 45-63-6105xsrs 4 capsules by mouth every twelve hours Molnupiravir 200 MG 4 capsules Orally every 12 hrs for 5 days Feb, ActiveSITagliptin 25 mg oral tablet (20 sources)Dipeptidyl Peptidase 4 InhibitorStart: 96-43-6900icqf 1 tablet by mouth once dailySitagliptin Phosphate (Januvia) 25 mg tablet Active 0 .ROUTE .COMPLEX 30 February 02, 2025 4:35pm TAKE 1 TABLET BY MOUTH EVERY DAY Complies with 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Start: 07-07-2024 End: 00-67-3949yive 1 tablet by mouth once dailyJanuvia 25 mg Tab 25 mg = 1 tab(s), Oral, Daily Start Date: 10/06/24 Status: Ordered Medication Dispense Status: Completed Total Allowed Fills: 1 Fills Dispensed: 0 Completed/Discontinued Medications MedicationDrug Class(es)DatesSig (Normalized)Sig (Original)B-12 - up to 1000 mcg (20 sources)Start: 33-74-6495I-12 - up to 1000 mcg Jun, 1000 mcgStart: 50-63-5524F-12 - up to 1000 mcg Mar, 1000 mcgStart: 15-29-1457D-12 - up to 1000 mcg Feb, 1000 mcgStart: 05-35-0079F-12 - up to 1000 mcg Dec, 1000 mcgStart: 84-26-8989B-12 - up to 1000 mcg Nov, 1000 mcgStart: 28-42-7689M-12 - up to 1000 mcg Aug, 1000 mcgStart: 27-85-3365E-12 - up to 1000 mcg Jul, 1000 mcgStart: 16-42-1528C-12 - up to 1000 mcg Jun, 1000 mcgciprofloxacin 500 mg oral tablet (3 sources)Quinolone AntimicrobialStart: 78-47-3639ijta 1 tablet by mouth once dailyCipro 500 mg Tab 500 mg = 1 tab(s), Oral, Daily, Take 1 tablet the day before the procedure and 1 tablet after the procedure, # 2 tab(s), Refills(s) 0, Pharmacy: [facility]/pharmacy #[id number], 187, cm, 258:21:00 EDT, Height/Length Dosing, 104.3, kg, 10/16/24 8:21:00 EDT, Weight Dosing Start Date: 10/16/24 Status: Ordered Medication Dispense Status: Completed Quantity: 2.0 Unit: tab(s) Total Allowed Fills: 1 Fills Dispensed: 03 ml insulin detemir 100 unt/ml pen injector (20 sources)Insulin AnalogStart: 08-22-2023 End: 70-86-1860Yubdpar Detemir U-100 (Levemir Flexpen) 100 unit/mL (3 mL) insulin pen Discontinued 12 UNIT SUBCUT Daily at bedtime August 22, 2023 12:00am March 31, 2024 10:04amStart: 99-94-1456Kqmwwmt FlexPen 100 UNIT/ML 12 units Subcutaneous Once daily Jul, ActiveStart: 23-61-1775Ltoeemz SubCutaneous, Refills(s) 0 Start Date: 11/27/19 Status: OrderedStart: 09-07-2015 LEVEMIR FLEXTOUCH 100 unit/mL (3 mL) inpn injection 12 Units. 0 09/07/2015 Activeinject 6 [IU] by subcutaneous injection at bedtimeinsulin detemir (Levemir) 100 UNIT/ML injection Inject 6 Units under the skin at bedtime Active Comment on above:12 Units. Insulin Detemir U-100 (Levemir Flexpen) 100 unit/mL (3 mL) insulin pen (12 sources)Start: 08-22-2023 End: 94-73-2257Gyrdzyy Detemir U-100 (Levemir Flexpen) 100 unit/mL (3 mL) insulin pen Discontinued 12 UNIT SUBCUT Daily at bedtime August 22, 2023 12:00am March 31, 2024 10:04amStart: 08-22-2023 End: 27-24-2691Qwpwdnd Detemir U-100 (Levemir Flexpen) 100 unit/mL (3 mL) insulin pen Discontinued 12 UNIT SUBCUT Daily at bedtime August 21, 2023 11:00pm March 31, 2024 9:04amStart: 62-29-7390Fhsjmsw Detemir U-100 (Levemir Flexpen) 100 unit/mL (3 mL) insulin pen Active 12 UNIT SUBCUT Daily at bedtime August 22, 2023 12:00amStart: 51-28-2847djljke 10 [IU] by subcutaneous injection once daily at bedtimeInsulin Detemir U-100 (Levemir Flexpen) 100 unit/mL (3 mL) insulin pen Active 10 UNIT SUBCUT Daily at bedtime August 22, 2023 12:00amlinagliptin 5 mg oral tablet (20 sources)Dipeptidyl Peptidase 4 InhibitorStart: 07-21-2024 End: 20-08-3531habn 1 tablet by mouth once dailyLinagliptin (Tradjenta) 5 mg tablet Discontinued 5 MG PO Daily July 21, 2024 1:00am July 27, 2024 4:40pmStart: 02-28-2024 End: 23-08-7394szkd 1 tablet by mouth once dailyLinagliptin (Tradjenta) 5 mg tablet Discontinued 0 .ROUTE .COMPLEX 30 March 11, 2024 5:20pm July 07, 2024 10:21am TAKE 1 TABLET BY MOUTH EVERY DAYStart: 58-80-3099eqyb 1 mg by mouth once dailyTradjenta mg, Oral, Daily, Refills(s) 0 Start Date: 11/27/19 Status: OrderedStart: 06-15-2013 End: 12-07-3791lcdl 1 tablet by mouth once daily in the morningLinagliptin (Tradjenta) 5 mg tablet Discontinued 5 MG PO Every morning July 25, 2023 1:00am February 28, 2024 2:23pmComment on above:5 mg once daily.traMADol hydrochloride 50 mg oral tablet (20 sources)Opioid AgonistStart: 11-22-2023 End: 66-48-1961pkty 1 tablet by mouth twice dailyTramadol 50 mg tablet Discontinued 50 MG PO Twice daily 28 14 0 November 23, 2023 4:25pm May 05, 2024 3:51pm Herpes zoster Zoster with other complicationsStart: 11-15-2023 End: 82-23-5985ujdh 1 tablet by mouth once daily at [...] Nucleoside Analog DNA Polymerase InhibitorStart: 11-02-2023 End: 29-74-0292Wuzfxjgzjpdc 1 gram tablet Discontinued 1000 MG PO Three times daily 21 7 0 November 02, 2023 12:00am November 28, 2023 8:54amStart: 11-02-2023 End: 75-65-9100raje 1000 mg by mouth three times dailyValacyclovir Discontinued 1000 MG PO Three times daily 21 7 November 02, 2023 12:00am November 28, 2023 8:54am Problems Active Problems Problem ClassificationProblemDateDocumented DateEpisodic/ChronicAcquired foot deformities (13 sources)Acquired hammer toe of left foot; Translations: [Other hammer toe(s) (acquired), left foot]Onset: 495048-10-1810RammkhyJgooc bronchitis (4 sources)Acute bronchitis; Translations: [Acute bronchitis, unspecified]Onset: 53-05-2399JgefvilbSrrgngs disorders (6 sources)Posttraumatic stress disorder; Translations: [Posttraumatic stress disorder]Onset: 99-73-7869NvaemkuVprxkngc of urinary tract (6 sources)Kidney stone; Translations: [Calculus of kidney]Onset: 04-14-2024 EpisodicChronic kidney disease (20 sources)Chronic kidney disease, unspecified; Translations: [Chronic kidney disease stage 3]Onset: 324887-24-7185XgpwtnfBzhlpic ulcer of skin (17 sources)Non-pressure chronic ulcer of unspecified part of right lower leg limited to breakdown of skin; Translations: [Chronic ulcer of foot]Onset: 09-09-2018 Resolved: 681033-28-1192CslaeaeQjualvtqobm and hemorrhagic disorders (13 sources)Blood coagulation disorder; Translations: [Thrombocytopenic disorder]19-85-8831SgtgxktLschoslujxsc of device; implant or graft (4 sources)Other specified complication of vascular prosthetic devices, implants and grafts, initial encounter; Translations: [OTH COMP VASC PROSTH DEV GRAFT INIT]Onset: 51-43-8818QnrvovaEtpxvrfxgw and other anemia (9 sources)Acquired pancytopenia; Translations: [Other drug-induced pancytopenia]Onset: 599332-52-2319ZinntvtNfuubrhnxa and other anemia (20 sources)Pernicious anemia; Translations: [Vitamin B12 deficiency anemia due to intrinsic factor deficiency]Onset: 09-05-2023 Resolved: 895428-69-0481WdacikxaZtwtsdsjhq and other anemia (19 sources)Vitamin B12 deficiency anemia due to intrinsic factor deficiency; Translations: [Pernicious anemia]EpisodicDeficiency and other anemia (5 sources)Anemia; Translations: [Anemia, unspecified] Resolved: 243900-77-9638DduiqdxoRqrwhliy mellitus with complications (20 sources)Type 2 diabetes mellitus with diabetic chronic kidney disease; Translations: [Hyperglycemia due to type 2 diabetes mellitus]Onset: 06-26-2016 ChronicDiabetes mellitus without complication (20 sources)Diabetes mellitus; Translations: [Type 2 diabetes mellitus without complications]Onset: 611232-71-5872CcdqzjiSjrumvxx mellitus without complication (11 sources)Glycosuria; Translations: [Glycosuria]Onset: EpisodicDiseases of white blood cells (16 sources)Neutropenia; Translations: [Neutropenia, unspecified]Onset: 506703-88-6541CwrhxqyHsrejmufm of lipid metabolism (20 sources)Mixed hyperlipidemia; Translations: [Hyperlipidemia, unspecified] Onset: 11-23-2021 Resolved: 45-75-9108IiywlsbCkbpxdvht hypertension (20 sources)Essential (primary) hypertension; Translations: [Essential hypertension]Onset: 11-23-2021 Resolved: 79-44-8996NougiqnMcdzo and electrolyte disorders (17 sources)Hyperkalemia; Translations: [Hyperkalemia]23-46-9199Srkyaxut Genitourinary symptoms and ill-defined conditions (20 sources)Proteinuria; Translations: [Asymptomatic microscopic hematuria] Onset: 818718-89-8790BhofaaapNenlgfyvcib of prostate (20 sources)Benign prostatic hyperplasia; Translations: [Benign prostatic hyperplasia without lower urinary tract symptoms]Onset: 50-12-5397Jefuaug Hypertension with complications and secondary hypertension (20 sources)Hypertensive chronic kidney disease with stage 1 through stage 4 chronic kidney disease, or unspecified chronic kidney disease; Translations: [Chronic kidney disease due to hypertension]Onset: 661927-92-5071Sdypagd Immunizations and screening for infectious disease (3 sources)Vaccination given; Translations: [Encounter for immunization]Episodic Intestinal obstruction without hernia (19 sources)Intestinal adhesions [bands], unspecified as to partial versus complete obstruction; Translations: [Intestinal adhesions [bands], with partial obstruction]Onset: 864377-04-3257YjntnnbfTldgiy and vomiting (9 sources)Nausea and vomiting; Translations: [Nausea & vomiting]Episodic Neoplasms of unspecified nature or uncertain behavior (4 sources)Neoplasm of uncertain behavior of skin; Translations: [Neoplasm of uncertain behavior of skin]Onset: 388546-17-8223VacliwwfZnplbcjat; nephrosis; renal sclerosis (1 source)Atrophy of kidney; 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)]Onset: 61-89-7217IrdxkmxOfj-Hodgkin`s lymphoma (20 sources)Non-Hodgkin's lymphoma (clinical); Translations: [Non-Hodgkin lymphoma, unspecified, unspecified site]Onset: 52-72-0965JyjbmtwRuiesztmkwfrqi (17 sources)Arthritis; Translations: [Osteoarthritis]Onset: ChronicOther aftercare (5 sources)Encounter for adjustment and management of vascular access device; Translations: [ENC ADJUSTMENT AND MANAGEMENT VAD]Onset: 62-37-6439CvksjcsvDypvu aftercare (2 sources)Other lobsterman (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; Translations: [OTH RAIL DIRECTOR CURRENT DRUG THERAPY]Onset: 87-00-8220XrvhwfwsWlgdu aftercare (3 sources)Long-term current use of 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; Translations: [Other lobsterman (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]EpisodicOther aftercare (4 sources)H/O: high risk medication; Translations: [Other snf (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]EpisodicOther and unspecified benign neoplasm (3 sources)Melanocytic nevus of right upper limb; Translations: [Melanocytic nevi of right upper limb, including shoulder]77-40-3642PqwqbvwzFcppv and unspecified benign neoplasm (3 sources)Melanocytic nevus of left upper limb; Translations: [Melanocytic nevi of left upper limb, includingshoulder]81-07-5239PbfpmaqtXzvip circulatory disease (3 sources)Spider nevus; Translations: [Nevus, non-neoplastic]21-36-9457Tnyoyhdh Other connective tissue disease (1 source)Presence of unspecified orthopedic joint implant; Translations: [Presence of unspecified orthopedicjoint implant]ChronicOther connective tissue disease (5 sources)Artificial knee joint present; Translations: [Presence of artificial knee joint, bilateral]Onset: 057439-39-1986GspqznrVtgxv connective tissue disease (3 sources)H/O: musculoskeletal disease; Translations: [Personal history of other diseases of the musculoskeletal system and connective tissue]EpisodicOther connective tissue disease (5 sources)History of osteomyelitis; Translations: [Personal history of other diseases of the musculoskeletal system and connective tissue]EpisodicOther diseases of kidney and ureters (20 sources)Secondary hyperparathyroidism; Translations: [Secondary hyperparathyroidism of renal origin]10-43-8879IpkcxliVgxre diseases of kidney and ureters (6 sources)Secondary hyperparathyroidism of renal origin; Translations: [Secondary hyperparathyroidism (of renal origin)]76-76-5569XmhjpfjVvrfh diseases of kidney and ureters (3 sources)Disorder of kidney and/or ureter; Translations: [Disorder of kidney and ureter, unspecified]EpisodicOther diseases of kidney and ureters (1 source)Acquired renal cyst without neoplastic change; Translations: [Cyst of kidney, acquired]Onset: 47-38-0151KbuuetopCxqzm diseases of kidney and ureters (5 sources)Cyst of msxare01-35-8185GnrxadfgHydse diseases of kidney and ureters (13 sources)Acquired renal cystic disease; Translations: [Cyst of kidney, acquired]46-01-9550BkgrstxzFgfjzxv on above:CT: 5.8cm renal cyst - 10/2024Other diseases of veins and lymphatics (3 sources)Venous ulcer of lower extremity due to chronic peripheral venous hypertension; Translations: [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]ChronicOther diseases of veins and lymphatics (20 sources)Peripheral venous insufficiency; Translations: [Venous insufficiency (chronic) (peripheral)]Onset: 09-05-2023 Resolved: 180083-01-1099AjknqlcfEicyv diseases of veins and lymphatics (12 sources)Venous insufficiency (chronic) (peripheral); Translations: [Venous (peripheral) insufficiency, unspecified]EpisodicOther injuries and conditions due to external causes (3 sources)History of fall; Translations: [History of falling]EpisodicOther nervous system disorders (5 sources)Chronic pain; Translations: [Other chronic pain]Onset: 08-22-2023 02-67-0880CmkkvgyYfvry non-epithelial cancer of skin (20 sources)Basal cell carcinoma of skin of other part of trunk; Translations: [Carcinoma in situ of skin of scalp and neck]Onset: 601618-06-6469Fiqqkqdy Other non-traumatic joint disorders (4 sources)Charcot's joint, left ankle and foot; Translations: [CHARCOTS JOINT LEFT ANKLE AND FO]Onset: 55-89-5312AlemmbeTppad non-traumatic joint disorders (11 sources)Arthropathy associated with a neurological disorder; Translations: [Charcot's joint, unspecified ankle and foot]ChronicOther non-traumatic joint disorders (5 sources)Joint ankylosis of the shoulder region; Translations: [Ankylosis, right shoulder]Onset: 530889-98-3279OfowsuaZhtph nutritional; endocrine; and metabolic disorders (3 sources)Obese class I; Translations: [Body mass index 33.0-33.9, adult]Onset: 38-14-6565FcjukrtWnitb nutritional; endocrine; and metabolic disorders (3 sources)Simple obesity ; Translations: [Other obesity due to excess calories] Onset: 46-71-8084KgsanukMmplg nutritional; endocrine; and metabolic disorders (20 sources)Obesity; Translations: [Obesity, unspecified]21-89-4803MwlqxpmUnuew nutritional; endocrine; and metabolic disorders (1 source)Other obesity due to excess caloriesChronicOther nutritional; endocrine; and metabolic disorders (1 source)Body mass index (BMI) 30.0-30.9, adultChronicOther nutritional; endocrine; and metabolic disorders (3 sources)Obesity, unspecified; Translations: [Obesity, unspecified]03-31-2024 ChronicOther nutritional; endocrine; and metabolic disorders (20 sources)Hypomagnesemia; Translations: [Hypomagnesemia]39-04-7998KpehotkThcww nutritional; endocrine; and metabolic disorders (3 sources)Hypomagnesemia; Translations: [Disorders of magnesium metabolism] 81-11-2130BztdxziRjjjy screening for suspected conditions (not mental disorders or infectious disease) (20 sources)Raised prostate specific antigen; Translations: [Elevated prostate specific antigen [PSA]]Onset: 38-28-0606HevkajcjRlokuqi on above:PSA: 2.93 - 02/2022, 2.64 - 03/2023, 5.63- SA: 2.93 - 02/2022, 2.64 - 03/2023, .63- 03/2024, 3.51 - 09/2024PSA: 2.93 - 02/2022, 2.64 - 03/2023, 5.63- 03/2024, .01 - 09/2024Other skin disorders (5 sources)Localized swelling, mass and lump, trunk; Translations: [LOCALIZD SWELLING MASS AND LUMP TRUNK]Onset: 81-65-4367TkwfiziyQjzks skin disorders (3 sources)Localized swelling, mass and lump, trunk; Translations: [Localized swelling, mass and lump, trunk]EpisodicOther skin disorders (4 sources)Chest swelling; Translations: [Localized swelling, mass and lump, trunk]EpisodicOther skin disorders (3 sources)Seborrheic keratosis; Translations: [Other seborrheic keratosis] 28-06-9815AreephbcKyzup skin disorders (3 sources)Actinic keratosis; Translations: [Actinic keratosis]03-21-2024 EpisodicOther skin disorders (1 source)Lentiginosis; Translations: [Other melanin hyperpigmentation] 35-64-7550OeofotydMbvylkjemh and visceral atherosclerosis (3 sources)Atherosclerosis of [place] arteries of the extremities; Translations: [Atherosclerosis of [place] arteries of the extremities, unspecified]Chronic Residual codes; unclassified (1 source)Other transplanted organ and tissue status; Translations: [OTH TRANSPLANTED ORGAN AND TISSUE STS]Onset: 03-17-3978FsthvpyMxzfepkk codes; unclassified (1 source)Bone marrow transplant status; Translations: [BONE MARROW TRANSPLANT STATUS]Onset: 57-91-6683AcmrvvzSgwkvtqc codes; unclassified (3 sources)Preventive procedure; Translations: [Encounter for other specified prophylactic measures]EpisodicUnclassified (6 sources)Asymptomatic microscopic hnpyorbwh31-95-9880Tbdacriqbkde (3 sources)Long-term current use of 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; Translations: [Long-term (current) use of other medications]Onset: 40-28-6133Lxsmvhtihjpi (5 sources)Atrophy of left bpnemv53-82-4321Orekollwueti (4 sources)Post discharge follow upUrinary tract infections (7 sources)Urinary tract infectious disease; Translations: [Urinary tract infection, site not specified]Onset: 201427-06-3399MlndblgiAgrwb infection (20 sources)Herpes zoster; Translations: [Zoster without complications] 50-96-4504Famqcuqz Past or Other Problems Problem ClassificationProblemDateDocumented DateEpisodic/ChronicAcquired foot deformities (8 sources)Talipes planus; Translations: [Flat 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), left foot]Onset: 049979-64-0640WpuenpfcNvqdefglkmr and hemorrhagic disorders (5 sources)Blood coagulation disorder; Translations: [Hemorrhagic condition, unspecified]Onset: 983207-25-1307MpcjflicXyoghufzgoje of device; implant or graft (11 sources)Blocked central line; Translations: [Other mechanical complication of infusion catheter, initial encounter]Onset: 89-31-1021IxgimhkqEwzsr of unknown origin (9 sources)Fever; Translations: [Fever, unspecified]Onset: EpisodicGastrointestinal hemorrhage (5 sources)Gastrointestinal hemorrhage; Translations: [Gastrointestinal hemorrhage, unspecified]Onset: 573670-50-2188AysuzcupCno-Xbzpmuo`s lymphoma (4 sources)Personal history of non-Hodgkin lymphomas; Translations: [History of malignant lymphoma]Onset: 74-46-0607OltqmvpeYbms wounds of head; neck; and trunk (3 sources)Laceration with foreign body of scalp, subsequent encounter; Translations: [Laceration with foreignbody of scalp, subsequent encounter]Onset: 14-03-8641GxfswwqqUjsnj aftercare (1 source)long term (current) use of oral hypoglycemic drugs; Translations: [RAIL DIRECTOR USE ORAL HYPOGLYCEMIC DX]Onset: 07-86-5024RgpwuqtzCfvjj connective tissue disease (3 sources)Pain in left foot; Translations: [Pain in left foot] Resolved: 19-88-9449SmjgaeohNoyvq connective tissue disease (3 sources)Tear of right rotator cuff; Translations: [Unspecified rotator cuff tear or rupture of right shoulder, not specified as traumatic]Onset: 02-20-2017 EpisodicOther eye disorders (3 sources)Vitreous degeneration; Translations: [Vitreous degeneration, unspecified eye] Resolved: 76-91-3821ZatuzjrLfgwr non-traumatic joint disorders (3 sources)Arthralgia of the ankle and/or foot; Translations: [Pain in left ankle and joints of left foot] Resolved: 50-95-0561TjypxwliCzxdc non-traumatic joint disorders (3 sources)Shoulder joint pain; Translations: [Pain in joint, shoulder region] Onset: 01-31-6221AxuggvpuNhkvu non-traumatic joint disorders (5 sources)Pain in right shoulder; Translations: [Pain in joint, shoulder region]Onset: 697946-86-5040JqvnqkvePeilf nutritional; endocrine; and metabolic disorders (20 sources)Body mass index 30+ - obesity; Translations: [Body mass index 30.0- 30.9, adult]Onset: 06-04-1957 Resolved: 015915-68-3323EfeudazAtosa nutritional; endocrine; and metabolic disorders (16 sources)Obesity caused by energy imbalance; Translations: [Other obesity due to excess calories]Onset: 09-05-2023 Resolved: 807595-10-5250MiyidqlMibdx skin disorders (3 sources)Disorder of the skin and subcutaneous tissue, unspecified; Translations: [DISORDER SKIN AND SUBQ TISSUE UNS]Onset: 10-75-9373IdqsikhvAapnc upper respiratory infections (3 sources)Acute sinusitis; Translations: [Acute sinusitis, unspecified]Onset: 41-06-7218RtkorxdeHridmjpm codes; unclassified (1 source)Acquired absence of other specified parts of digestive tract; Translations: [ACQ ABSENCE OTH PART DIGESTV TRACT]Onset: 84-10-7011QdcguoovHjtcr infection (5 sources)COVID-19; Translations: [COVID-19]Onset: 05-17-2022 Results Test NameValueInterpretationReference RangeFacilityCryotherapy, skin lesionon 50-33-2241BJCG HealthcareLesion biopsyon 53-18-9300Tbcb of biopsy: tangential Informed consent: discussed and [...] Photo taken Am[facility] of lidoc[facility]: 0.5 [facility]Type [facility] Informed consent: discussed and [...] Photo taken Amount of lidocaine used: 0.3 [facility] LenoirBasic Metabolic Panelon 66-41-6519Hyyduhhiqz Clr Calc Vtwveoxw95.06NormAdventHealth Altamonte Springs Physician GroupComment on above:Result Comment: PERFORMED BY: [place] [address] PATHOLOGIST [employer]MODULE ASSEMBLY SUPERVISOR HERMILO FOLEY M.D.Performed By: #### CUU #### [facility] [address] [place] [address] USAGFR/1.73 sq M.predicted MDRD (S/P/Bld) [Vol rate/Area] 21.338 mL/min/{1.73_m2}NormalThe [facility]park Physician GroupComment on above: Performed By: #### CUU #### [facility] [address] [place], [place] [address] USABasophils [#/volume] in Blood by Automated countOrdered By: Moise Walker on 47-25-6772Dzwlojxkl (Bld) [#/Vol]0.0 10*3/uL0.0-0.2 Wilson HealthComment on above:Result Comment: PERFORMED BY: [place] [address] PATHOLOGIST [employer]MODULE ASSEMBLY SUPERVISOR HERMILO FOLEY M.D.Performed By: #### CUU #### [facility] [address] [place] [address] USABasophils/100 leukocytes in Blood by Automated count Ordered By: Moise Walker on 87-20-0385Zuyvogpwm/100 WBC (Bld)0.2 %. Wilson HealthComment on above:Performed By: #### CUU #### [facility] [address] [place] [address] USACalcium [Mass/volume] in Serum or PlasmaOrdered By: Moise Walker on 73-50-1886Zvubwwk [Mass/Vol]8.3 mg/dLLow8.6-10.3FMcKitrick HospitalComment on above:Performed By: #### CUU #### [facility] [address] [place], [place] [address] USACapillary blood glucose measurement by glucometer (mass/volume)Ordered By: Bryon Aguilar on 35-59-7530Pooailk [Mass/Vol]217 mg/dL Wilson HealthComment on above:Random Glucose Reference Range is dependent [...] the diagnosis of Diabetes Mellitus. PERFORMED BY: [place] [address] PATHOLOGIST [employer]MODULE ASSEMBLY SUPERVISOR HERMILO FOLEY M.D.Performed By: #### GLULS #### Point of Care testing ,Carbon dioxide, total [Moles/volume] in Serum or PlasmaOrdered By: Moise Walker on 50-83-0553YL8 [Moles/Vol]26.4 mmol/L21.0-31.0Firelands Regional Medical CenterComment on above:Performed By: #### CUU #### [place] [address] USAChloride [Moles/volume] in Serum or PlasmaOrdered By: Moise Walker on 01-08-5679Ayhfrpsu [Moles/Vol]105 mmol/G27-525UehxdhufbWilson HealthComment on above:Performed By: #### CUU #### [place] [address] USAComplete Blood Count Auto Diffon 56-69-3874Drez Corpuscular HGB Conc35.0 g/sTTawmwl29.5-35.6The [facility] Physician GroupComment on above:Performed By: #### CUU #### [place] [address] USANRBC%0.1 /100{WBC}Normal0-0.5The [facility] Comment on above:Performed By: #### CUU #### [place] [address] USAWhite Blood Count7.1 [CFU]/mLNormal4.1-10.5The [facility] Physician Regency MeridianComment on above:Performed By: #### CUU #### [place] [address] USACreatinine [Mass/volume] in Serum or PlasmaOrdered By: Moise Walker on 84-69-3231Gqwettthyk [Mass/Vol]2.93 mg/dLHigh0.70-1.30 Wilson HealthComment on above:Performed By: #### CUU #### [place] [address] USAEosinophils [#/volume] in Blood by Automated countOrdered By: Moise Walker on 77-89-0919Cizjlvgkhrg (Bld) [#/Vol]0.1 10*3/uL0.0-0.45 Wilson HealthComment on above:Performed By: #### CUU #### [place] [address] USAEosinophils/100 leukocytes in Blood by Automated count Ordered By: Moise Walker on 69-67-1549Etebrkwcpbj/100 WBC (Bld)1.8 %. Wilson HealthComment on above:Performed By: #### CUU #### [facility] [address] [place] [address] USAErythrocyte distribution width [Ratio] by Automated count Ordered By: Moise Walker on 56-14-2663Ouahhnctfsr distribution width (RBC) [Ratio]12.8 %12.0-14.8Wilson HealthComment on above: Performed By: #### CUU #### [facility] [address] [place] [address] USAErythrocytes [#/volume] in Blood by Automated countOrdered By: Moise Walker on 42-25-9515JAY (Bld) [#/Vol]3.54 10*6/uLLow3.90-5.60 Wilson HealthComment on above:Performed By: #### CUU #### [facility] [address] [place] [id number] USAGlomerular filtration rate [Volume Rate/Area] in Serum, Plasma or Blood by CreatinineOrdered By: Moise Walker on 03-25-2025 Glomerular filtration rate [Volume Rate/Area] in Serum, Plasma or Blood by Wtncxtxjqn48.338 mL/MinWilson HealthGlucose Poct Glucometers on 28-40-8222Zlkwxfg [Mass/Vol]118 mg/dLNoECU Health Edgecombe Hospital Physician Group Comment on above:Result Comment: Random Glucose Reference Range is dependent on time and content of last meal. Glucose of more than 200 mg/dL in a nonstressed, ambulatory subject supports the diagnosis of Diabetes Mellitus. PERFORMED BY: [place] [address] PATHOLOGIST [employer]MODULE ASSEMBLY SUPERVISOR HERMILO FOLEY M.D.Performed By: #### CUU #### [place] [id number] USAGlucose [Mass/Vol]142 mg/dLNoECU Health Edgecombe Hospital Physician GroupComment on above:Result Comment: Random Glucose Reference Range is dependent on time and content of last meal. Glucose of more than 200 mg/dL in a nonstressed, ambulatory subject supports the diagnosis of Diabetes Mellitus. PERFORMED BY: [place] [address] PATHOLOGIST [employer] ASSEMBLY SUPERVISOR HERMILO FOLEY M.D.Performed By: #### GLULS #### Point of Care testing ,Glucose [Mass/volume] in Serum or PlasmaOrdered By: Moise Walker on 83-24-7391Lshwhsm [Mass/Vol]116 mg/mSJoii36-058JusvayatuWilson Health Comment on above:Delta: 216 on 03/24/25-0510ADA recommended [...] recommended reference rangePerformed By: #### CUU #### [facility] [address] [place] [address] USAHematocrit [Volume Fraction] of Blood by Automated count Ordered By: Moise Walker on 32-43-9501Ltecawijyr (Bld) [Volume fraction] 33.7 %Low38.8-50.0Wilson HealthComment on above:Performed By: #### CUU #### [facility] [address] [place] [address] USAHemoglobin [Mass/volume] in BloodOrdered By: Moise Walker on 35-12-9200Qhatpjdizo (Bld) [Mass/Vol]11.8 g/dLLow13.0-17.0 Wilson HealthComment on above:Performed By: #### CUU #### [facility] [address] [place] [address] USALeukocytes [#/volume] corrected for nucleated erythrocytes in Blood by Automated counOrdered By: Moise Walker on 82-66-8147ZYF corrected for nucl RBC Auto (Bld) [#/Vol]7.1 10*3/uL4.1-10.5FMcKitrick HospitalLeukocytes [#/volume] in Blood by Automated countOrdered By: Moise Walker on 45-49-6937YWN (Bld) [#/Vol]7.1 10*3/uL4.1-10.5FMcKitrick HospitalComment on above:Performed By: #### CUU #### [facility] [address] [place] [address] USALymphocytes [#/volume] in Blood by Automated countOrdered By: Moise Walker on 67-89-9242Pkzyxxvvxgo (Bld) [#/Vol]0.9 10*3/uLLow 1.00-4.8Wilson HealthComment on above:Performed By: #### CUU #### [facility] [address] [place] [address] USALymphocytes/100 leukocytes in Blood by Automated count Ordered By: Moise Walker on 29-65-1627Ktgtkvezywl/100 WBC (Bld)12.4 %. Wilson HealthComment on above:Performed By: #### CUU #### [facility] [address] [place] [address] [Entitic mass] by Automated countOrdered By: Moise Walker on 32-49-7835NUB (RBC) [Entitic mass]33.3 pg27.5-35.2FMcKitrick HospitalComment on above:Performed By: #### CUU #### [facility] [address] [place] [address] Auto (RBC) [Mass/Vol]Ordered By: Moise Walker on 87-62-2934JNUD (RBC) [Mass/Vol]35.0 g/dL32.5-35.6FMcKitrick HospitalMCV [Entitic volume] by Automated countOrdered By: Moise Walker on 62-08-2677TNC (RBC) [Entitic vol]95.0 fL83.5-101Wilson HealthComment on above:Performed By: #### CUU #### [facility] [address] [place] [address] USAMonocytes [#/volume] in Blood by Automated countOrdered By: Moise Walker on 70-92-1112Fhisrvhtx (Bld) [#/Vol]0.6 10*3/uL0.0-0.8 Wilson HealthComment on above:Performed By: #### CUU #### [facility] [address] [place] [address] USAMonocytes/100 leukocytes in Blood by Automated count Ordered By: Moise Walker on 04-80-0223Famqzxkhz/100 WBC (Bld)9.0 %. Wilson HealthComment on above:Performed By: #### CUU #### [place] [address] USANeutrophils [#/volume] in Blood by Automated countOrdered By: Moise Walker on 69-34-6041Uilbixnxcso (Bld) [#/Vol]5.5 10*3/uL1.8-7.7 Wilson HealthComment on above:Performed By: #### CUU #### [facility] [address] [place] [address] USANeutrophils/100 leukocytes in Blood by Automated count Ordered By: Moise Walker on 57-55-3794Dawnsekncen/100 WBC (Bld)76.6 %. Wilson HealthComment on above:Performed By: #### CUU #### [facility] [address] [place] [address] USANo Panel InformationOrdered By: Moise Walker on 79-58-3397Vcpxfoxb Creatinine Clearance (Chem27.06Wilson HealthNucleated erythrocytes [Presence] in Blood by Automated countOrdered By: Moise Walker on 77-34-0956Aggfdrlfl RBC Auto Ql (Bld)0.1 /100{WBC}0-0.5 Wilson HealthPlatelet mean volume [Entitic volume] in Blood by Automated countOrdered By: Moise Walker on 75-04-4411Xbqbbaml mean volume (Bld) [Entitic vol]7.1 fL6.6-10.1FMcKitrick HospitalComment on above:Performed By: #### CUU #### [facility] [address] [place] [address] USAPlatelets [#/volume] in Blood by Automated countOrdered By: Moise Walker on 80-63-0214Bpucseiva (Bld) [#/Vol]150 10*3/jM182-235 Wilson HealthComment on above:Performed By: #### CUU #### [place] [address] USAPotassium [Moles/volume] in Serum or PlasmaOrdered By: Moise Walker on 03-18-8818Mpwzlirrq [Moles/Vol]4.5 mmol/L3.5-5.1FMcKitrick HospitalComment on above:Performed By: #### CUU #### [facility] [address] [place] [address] USASerum or plasma anion gap determinationOrdered By: Moise Walker on 71-12-9524Pskom gap [Moles/Vol]10.1 mmol/L6.0-15.0Wilson HealthComment on above:Performed By: #### CUU #### [facility] [address] [place] [address] USASodium [Moles/volume] in Serum or PlasmaOrdered By: Moise Walker on 61-16-8887Ktmfjw [Moles/Vol]137 mmol/C606-624AgouhnqvcWilson HealthComment on above:Performed By: #### CUU #### [facility] [address] [place], [place] [address] USAUrea nitrogen [Mass/volume] in Serum or PlasmaOrdered By: Moise Walker on 37-89-8338Avry nitrogen [Mass/Vol]39 mg/dLHigh7-25Wilson HealthComment on above:Performed By: #### CUU #### [facility] [address] [place] [address] USAX-ray reportOrdered By: Guillermo Salazar on 17-51-5123Yyczf reportH[facility] Main [address] [address] XRay Report Signed Patient: Eugenio Crews MR#: [id number] : 1945 Acct:[id number] Age/Sex: 79 / M ADM Date: 5 Loc: 4N Room: [address] [place] [address] Type: ADM IN Attending Dr: Bryon Aguilar [...] Salazar M.D. 03/25/2025 8:46 AM Dictation Location: [place] [address] Transcribed By: [facility] 03/25/2546 Dictated By: Guillermo Salazar DO 03/25/25 0845 Signed By: 03/25/25 0846 Wilson HealthXR abdomen min 2Von 48-42-2292LA abdomen min 2V [facility] Main [address] [address] XRay Report Signed Patient: Eugenio Crews MR#: [id number] : 1945 Acct:[id number] Age/Sex: 79 / M ADM Date: 03/24/25 Loc: 4N Room: [address] [place] [address] Type: ADM IN Attending Dr: Bryon Aguilar [...] Salazar M.D. 03/25/2025 8:46 AM Dictation Location: [facility] Transcribed By: [facility] 03/25/25845 Dictated By: Guillermo Salazar DO 03/25/2545 Signed By: 03/25/2546[facility] Physician GroupBasic Metabolic Panelon 82-39-4133Boqckwdyuo Clr Calc Qwcldqty58.37NoECU Health Edge[facility] Physician Group Comment on above:Result Comment: PERFORMED BY: [place] [address] PATHOLOGIST [employer] ASSEMBLY SUPERVISOR HERMILO FOLEY M.D.Performed By: #### BMP #### [place] [address] USAGFR/1.73 sq M.predicted MDRD (S/P/Bld) [Vol rate/Area] 17.912 mL/min/{1.73_m2}NormalAscension Sacred Heart Hospital Emerald Coast Physician GroupComment on above: Performed By: #### BMP #### [place] [id number] USACalcium [Mass/volume] in Serum or PlasmaOrdered By: Moise Walker on 54-84-7385Krcfmzm [Mass/Vol]8.3 mg/dLLow8.6-10.3FMcKitrick HospitalComment on above:Performed By: #### BMP #### [facility] [address] [place] [address] USACapillary blood glucose measurement by glucometer (mass/volume)Ordered By: Bryon Aguilar on 81-82-4615Kgpszyu [Mass/Vol]204 mg/dL [facility] HospitalComment on above:Random Glucose Reference Range is dependent [...] the diagnosis of Diabetes Mellitus. PERFORMED BY: [place] [id number] PATHOLOGIST KEYMODULE ASSEMBLY SUPERVISOR HERMILO FOLEY M.D.Performed By: #### GLULS #### Point of Care testing ,Carbon dioxide, total [Moles/volume] in Serum or PlasmaOrdered By: Moise Walker on 47-92-4689AO7 [Moles/Vol]22.2 mmol/PQfwsln91.0-31.0Wilson HealthComment on above:Performed By: #### BMP #### [facility] [address] [place], [place] [address] USAChloride [Moles/volume] in Serum or PlasmaOrdered By: Moise Walker on 28-35-2200Tyhynyol [Moles/Vol]105 mmol/PCqutij59-473 Wilson HealthComment on above:Performed By: #### BMP #### [facility] [address] [place], [place] [address] USACreatinine [Mass/volume] in Serum or PlasmaOrdered By: Moise Walker on 77-10-8207Icfgokxjqw [Mass/Vol]3.39 mg/dLHigh0.70-1.30 Wilson HealthComment on above:Performed By: #### BMP #### [facility] [address] [place], [place] [address] USAGlomerular filtration rate [Volume Rate/Area] in Serum, Plasma or Blood by CreatinineOrdered By: Moise Walker on 03-24-2025 Glomerular filtration rate [Volume Rate/Area] in Serum, Plasma or Blood by Kejrgngckd79.912 mL/MinWilson HealthGlucose Poct Glucometers on 92-03-5276Slanfwo [Mass/Vol]157 mg/dLNoECU Health Edgecombe Hospital Physician Group Comment on above:Result Comment: Random Glucose Reference Range is dependent on time and content of last meal. Glucose of more than 200 mg/dL in a nonstressed, ambulatory subject supports the diagnosis of Diabetes Mellitus. PERFORMED BY: [address] [address] PATHOLOGIST KEYMODULE ASSEMBLY SUPERVISOR HERMILO FOLEY M.D.Performed By: #### GLULS #### Point of Care testing ,Glucose [Mass/Vol]136 mg/dLNemours Children's Hospital Physician GroupComment on above: Result Comment: Random Glucose Reference Range is dependent on time and content of last meal. Glucose of more than 200 mg/dL in a nonstressed, ambulatory subject supports the diagnosis of Diabetes Mellitus. PERFORMED BY: [address] [address] PATHOLOGIST KEYMODULE ASSEMBLY SUPERVISOR HERMILO FOLEY M.D.Performed By: #### GLULS #### Point of Care testing ,Glucose [Mass/Vol]178 mg/dLNemours Children's Hospital Physician GroupComment on above: Result Comment: Random Glucose Reference Range is dependent on time and content of last meal. Glucose of more than 200 mg/dL in a nonstressed, ambulatory subject supports the diagnosis of Diabetes Mellitus. PERFORMED BY: [address] [address] PATHOLOGIST KEYMODULE ASSEMBLY SUPERVISOR HERMILO FOLEY M.D.Performed By: #### GLULS #### Point of Care testing ,Glucose [Mass/Vol]223 mg/dLNemours Children's Hospital Physician GroupComment on above: Result Comment: Random Glucose Reference Range is dependent on time and content of last meal. Glucose of more than 200 mg/dL in a nonstressed, ambulatory subject supports the diagnosis of Diabetes Mellitus. PERFORMED BY: [address] [address] PATHOLOGIST [employer]MODULE ASSEMBLY SUPERVISOR HERMILO FOLEY M.D.Performed By: #### GLULS #### Point of Care testing ,Glucose [Mass/volume] in Serum or PlasmaOrdered By: Moise Walker on 29-35-9612Azlzdkd [Mass/Vol]216 mg/cZSkdo06-069Iqkkrbx[address] [place] [address] Comment on above:ADA recommended reference rangeRandom Glucose [...] recommended reference rangePerformed By: #### BMP #### [facility] [address] [place] [address] USANo Panel InformationOrdered By: Moise Walker on 22-30-0689Agbgzwam Creatinine Clearance (Chem23.37Wilson HealthPotassium [Moles/volume] in Serum or PlasmaOrdered By: Moise Walker on 75-38-0201Sqmutrfqb [Moles/Vol]5.8 mmol/LHigh3.5-5.1FMcKitrick HospitalComment on above:Performed By: #### BMP #### [place] [address] USASerum or plasma anion gap determinationOrdered By: Moise Walker on 82-13-6917Legks gap [Moles/Vol]12.6 mmol/LNormal6.0-15.0Wilson HealthComment on above:Performed By: #### BMP #### [facility] [address] [place] [id number] USASodium [Moles/volume] in Serum or PlasmaOrdered By: Moise Walker on 81-55-9488Bzassq [Moles/Vol]134 mmol/GGgc508-121DkdgjlqrwWilson HealthComment on above:Performed By: #### BMP #### [facility] [address] [place] [id number] USAUrea nitrogen [Mass/volume] in Serum or PlasmaOrdered By: Moise Walker on 44-57-2342Ealt nitrogen [Mass/Vol]43 mg/dLHigh7-25Wilson HealthComment on above:Performed By: #### BMP #### [address] [address] USAX-ray reportOrdered By: Alonzo Kennedy on 17-23-5207Azsjq reportH[facility] Main [address] [address] XRay Report Signed Patient: Eugenio Crews MR#: [id number] : 1945 Acct:[id number] Age/Sex: 79 / M ADM Date: 5 Loc: 4N Room: [address] [place] [address] Type: ADM IN Attending Dr: Bryon Aguilar [...] Kennedy M.D. 03/24/2025 11:25 AM Dictation Location: [place] [address] Transcribed By: [facility] 03/24/251124 Dictated By: Alonzo Kennedy II, MD 03/24/251123 Signed By: 03/24/25 1125 [facility] Work Phone: XR abdomen min 2Von 73-97-7423KE abdomen min 2V [facility] Main [address] [address] XRay Report Signed Patient: Eugenio Crews MR#: [id number] : 1945 Acct:[id number] Age/Sex: 79 / M ADM Date: 03/24/25 Loc: 4N Room: [address] [place] [address] Type: ADM IN Attending Dr: Bryon Aguilar MD Copies to: BryonMD Arya Wilson DO Ordering Provider: Arya Peña DO Date [...] Kennedy M.D. 03/24/2025 11:25 AM Dictation Location: [place] [address] Transcribed By: [facility] 03/24/25 1125 Dictated By: Alonzo Kennedy II, MD 03/24/25 1124 Signed By: 03/24/25 1125[facility] Physician GroupBasophils Auto (Bld) [#/Vol] Ordered By: Guillermo Masterson on 13-13-4212Apmjrkgas (Bld) [#/Vol]0.0 10 3/uL0.0-0.1 Wilson HealthBasophils/100 WBC Auto (Bld)Ordered By: Guillermo Masterson on 83-22-1415Rqgrntabx/100 WBC (Bld)0.3 %0.2-2.0Wilson HealthCoarse granular casts count in urine sediment by microscopy low power field (number/aOrdered By: Guillermo Masterson on 47-08-4156Nwnpod Granular Casts LM.LPF (Urine sed) [#/Area]FEWWilson Health Eosinophils/100 WBC Auto (Bld)Ordered By: Guillermo Masterson on 03-23-2025 Eosinophils/100 WBC (Bld)1.1 %0.9-7.0[facility] Erythrocyte distribution width Auto (RBC) [Ratio]Ordered By: Guillermo Masterson on 06-25-2574Jthxbpdwmkq distribution width (RBC) [Ratio]12.1 %11.0-15.0Wilson HealthGlobulin Calc (S) [Mass/Vol]Ordered By: Guillermo Masterson on 94-29-6526Ldvanqod (S) [Mass/Vol]3.4 g/dLWilson Health Glomerular filtration rate (GFR) estimation in non- AmericanOrdered By: Guillermo Masterson on 11-77-8397YWG/1.73 sq M.predicted among non-blacks MDRD (S/P/Bld) [Vol rate/Area]18 mL/min/{1.73_m2}Low>=60 mL/min/1.73m 2FMcKitrick HospitalHematocrit Auto (Bld) [Volume fraction]Ordered By: Guillermo Masterson on 66-36-6130Uojdsjmvyq (Bld) [Volume fraction]38.3 %Low42.0-54.0 Wilson HealthHemoglobin [Mass/volume] in BloodOrdered By: Guillermo Masterson on 74-74-5158Ofbhivcbtx (Bld) [Mass/Vol]13.3 g/dLLow14.0-18.0 Wilson HealthLaboratory - Chemistry and Chemistry - challengeOrdered By: Guillermo Masterson on 31-90-9227Qpztqrupq Ql (U)NegativeNEGATIVE Wilson HealthGlucose (U) [Mass/Vol]250 mg/dLAbnormalNEGATIVE Wilson HealthKetones Ql (U)TRACE mg/dLAbnormalNEGATIVE Wilson HealthpH (U)5.5 [pH]5.0-9.0[facility]'s Medical Centerpecific gravity (U) [Rel density]1.0201.005-1.025Wilson HealthUrobilinogen Qn (U)0.2 {Bisi'U}/dL0.2-1.0Wilson HealthAlbumin [Mass/Vol]4.1 g/dL3.4-5.0[facility] ALP [Catalytic activity/Vol]105 U/O55-200XguokobgfWilson HealthALT [Catalytic activity/Vol]21 U/K82-94YoscdztktWilson HealthAmylase [Catalytic activity/Vol]24 U/JImu57-248MxuqcdkmnWilson HealthAST [Catalytic activity/Vol]11 U/SZfw67-66SksdklezfWilson HealthBilirubin [Mass/Vol]0.6 mg/dL0.2-1.0Wilson HealthBilirubin.direct [Mass/Vol]0.1 mg/dL0.0-0.2FMcKitrick HospitalCalcium [Mass/Vol]9.2 mg/dL8.5-10.1FMcKitrick HospitalChloride [Moles/Vol]103 mmol/L 98-107Wilson HealthCO2 [Moles/Vol]19.1 mmol/LLow21.0-32.0 Wilson HealthCreatinine [Mass/Vol]3.39 mg/dLHigh0.70-1.30 Wilson HealthGFR/1.73 sq M.predicted MDRD (S/P/Bld) [Vol rate/Area]22 mL/min/{1.73_m2}Low>=60 mL/min/1.73m 2FMcKitrick HospitalGlucose [Mass/Vol]157 mg/tHCpfe72-837EifnslhwxWilson Health Lipase [Catalytic activity/Vol]18.0 U/L16.0-77.0Wilson HealthPotassium [Moles/Vol]4.9 mmol/L3.5-5.1FMcKitrick Hospital Protein [Mass/Vol]7.5 g/dL6.4-8.2FUK Healthcareodium [Moles/Vol]137 mmol/K963-019UultsbtmbWilson HealthUrea nitrogen [Mass/Vol]44.0 mg/dLHigh7.0-18.0Wilson HealthUrea nitrogen/Creatinine [Mass ratio]13.0 mg/mgWilson Health Laboratory - Hematology and Cell countsOrdered By: Guillermo Masterson on 03-23-2025 Immature granulocytes/100 WBC (Bld)0.5 %0.0-0.5FMcKitrick Hospital Laboratory - Specimen informationOrdered By: Guillermo Masterson on 03-23-2025 Appearance (U)CLEARCLEARFMcKitrick HospitalColor (U)LT. YELLOW YELLOWWilson HealthLaboratory - UrinalysisOrdered By: Guillermo Masterson on 28-80-0156Ucfevbaek esterase Test strip Ql (U)NegativeNEGATIVE Wilson HealthMucus Ql (Urine sed)NONE SEENNONE SEENWilson HealthNitrite Ql (U)NegativeNEGATIVEWilson HealthProtein Ql (U)100 mg/dLAbnormalNEG/TRACEWilson Health Leukocytes [#/volume] corrected for nucleated erythrocytes in Blood by Automated counOrdered By: Guillermo Masterson on 33-26-2607OIE corrected for nucl RBC Auto (Bld) [#/Vol]12.1 10 3/uLHigh4.0-11.0[facility] Lymphocytes Auto (Bld) [#/Vol]Ordered By: Guillermo Masterson on 28-07-2774Zniakgzgdys (Bld) [#/Vol]1.0 10 3/uLLow1.2-3.8[facility] Lymphocytes/100 WBC Auto (Bld)Ordered By: Guillermo Masterson on 03-23-2025 Lymphocytes/100 WBC (Bld)8.1 %Low20.5-60.0[facility] Auto (RBC) [Entitic mass]Ordered By: Guillermo Masterson on 20-34-7748CEQ (RBC) [Entitic mass]33.0 pg25.9-34.0Wilson HealthMCHC Auto (RBC) [Mass/Vol]Ordered By: Guillermo Masterson on 94-53-1602CTHA (RBC) [Mass/Vol]34.7 g/dL 29.9-35.2FMcKitrick HospitalMCV Auto (RBC) [Entitic vol]Ordered By: Guillermo Masterson on 26-03-5709LHY (RBC) [Entitic vol]95.0 lVGnml38.0-94.0 Wilson HealthMonocytes Auto (Bld) [#/Vol]Ordered By: Guillermo Masterson on 47-97-9970Juhprioiu (Bld) [#/Vol]0.8 10 3/uL0.3-0.8Wilson HealthMonocytes/100 WBC Auto (Bld)Ordered By: Guillermo Masterson on 57-90-0889Jnvidzqxb/100 WBC (Bld)6.5 %1.7-12.0[facility] Neutrophils Auto (Bld) [#/Vol]Ordered By: Guillermo Masterson on 62-38-7357Wvqlmuortim (Bld) [#/Vol]10.1 10 3/uLHigh1.4-6.5FMcKitrick Hospital Neutrophils/100 WBC Auto (Bld)Ordered By: Guillermo Masterson on 03-23-2025 Neutrophils/100 WBC (Bld)83.5 %High43.0-75.0Wilson HealthNo Panel InformationOrdered By: Guillermo Masterson on 12-97-5882Mvdwg BacteriaNONE SEEN #/HPFNONE [facility] HospitalUrine Culture ReflexedYES-[facility] HospitalUrine Occult BloodTRACE-INEGATIVEWilson HealthUrine Other CastsSEEN #/LPFAbnormalNONE [facility] HospitalUrine Other CrystalsNone Seen #/HPFNone [facility] GlenbeighUrine RBC0-2 #/HPF0-2FMcKitrick Hospital Urine Squamous Epithelial CellsNONE SEEN #/LPFNONE/RAREWilson HealthUrine Transitional Epithelial CellsRARE #/LPFAbnormalNONE SEEN Wilson HealthUrine WBC5-10 #/HPFAbnormalNONE [facility] HospitalEosinophils # (Auto)0.1 10 3/uL0.0-0.7FMcKitrick HospitalImmature Granulocyte # (Auto)0.06 10 3/uLHigh0.00-0.03Wilson HealthTroponin I High Fuubpthkdko93.8 pg/mL4.0-76.1FMcKitrick HospitalComment on above:CUT-OFF POINTS HAVE BEEN ESTABLISHED [...] (Bld) [Entitic vol]Ordered By: Guillermo Masterson on 39-11-5706Hvylcmmc mean volume (Bld) [Entitic vol]9.2 fLLow9.5-13.5FMcKitrick HospitalPlatelets Auto (Bld) [#/Vol]Ordered By: Guillermo Masterson on 03-23-2025 Platelets (Bld) [#/Vol]178 10 3/iF871-619FrizmmcjiWilson HealthRBC Auto (Bld) [#/Vol]Ordered By: Guillermo Masterson on 44-72-3390WMT (Bld) [#/Vol]4.03 10 6/uLLow4.70-6.10[facility] Rita's Medical Centererum or plasma albumin/globulin mass ratioOrdered By: Guillermo Masterson on 03-23-2025 Albumin/Globulin [Mass ratio]1.2 {ratio}[facility] Medical Centererum or plasma anion gap determinationOrdered By: Guillermo Masterson on 88-72-8804Rdztz gap [Moles/Vol]19.8 mmol/LFMcKitrick HospitalUrine Cultureon 31-89-0515Cygbjfyr identified Cx Nom (U)<9,000 colonies/ml mixed bacterial skin contaminants 2 Days PERFORMED BY: [place] [address] PATHOLOGIST [employer] SUPERVISOR HERMILO FOLEY M.D.NormalThe [facility] Southpark Physician GroupComment on above: Performed By: #### CUU #### [place] [address] USAUrine cultureOrdered By: Guillermo Masterson on 03-23-2025 Bacteria identified Cx Nom (U)2 DaysWilson HealthErythrocyte distribution width Auto (RBC) [Ratio]Ordered By: Vaishali Howell on 01-19-2025 Erythrocyte distribution width (RBC) [Ratio]12.6 %11.0-15.0Wilson HealthGlomerular filtration rate (GFR) estimation in non- AmericanOrdered By: Vaishali Howell on 96-59-3684OCZ/1.73 sq M.predicted among non- blacks MDRD (S/P/Bld) [Vol rate/Area]18 mL/min/{1.73_m2}Low>=60 mL/min/1.73m 2 Wilson HealthHematocrit Auto (Bld) [Volume fraction]Ordered By: Vaishali Howell on 06-30-2457Rgjijrgbde (Bld) [Volume fraction]32.9 %Low 42.0-54.0Wilson HealthHemoglobin [Mass/volume] in Blood Ordered By: Vaishali Howell on 02-09-0997Szrlkymrze (Bld) [Mass/Vol]11.5 g/dLLow 14.0-18.0Wilson HealthIron binding capacity [Mass/volume] in Serum or PlasmaOrdered By: Vaishali Howell on 99-74-3732Rvuc binding capacity [Mass/Vol]248.0 ug/jNUtd249.0-450.0Wilson HealthIron saturation [Mass Fraction] in Serum or PlasmaOrdered By: Vaishali Howell on 22-82-9578Huri saturation [Mass fraction]26.6 %[facility] Laboratory - Chemistry and Chemistry - challengeOrdered By: Vaishali Howell on 79-29-8701Acdlavqcc Ql (U)NegativeNEGATIVEWilson Health Glucose (U) [Mass/Vol]250 mg/dLAbnormalNEGSelect Medical Specialty Hospital - [facility] South Ketones Ql (U)TRACE mg/dLAbnormalNEGSelect Medical Specialty Hospital - Columbus SouthpH (U) 6.0 [pH]5.0-9.0[facility]'s Medical Centerpecific gravity (U) [Rel density]1.0251.005-1.025Wilson HealthUrobilinogen Qn (U)0.2 {Bisi'U}/dL0.2-1.0Wilson HealthAlbumin [Mass/Vol]3.7 g/dL 3.4-5.0Wilson HealthCalcium [Mass/Vol]8.3 mg/dLLow8.5-10.1 Wilson HealthChloride [Moles/Vol]108 mmol/QMwsz03-808 [facility] HealthCO2 [Moles/Vol]22.1 mmol/L21.0-32.0Wilson HealthCreatinine [Mass/Vol]3.38 mg/dLHigh0.70-1.30Wilson HealthFerritin [Mass/Vol]199.0 ng/mL26.0-388.0Wilson HealthGFR/1.73 sq M.predicted MDRD (S/P/Bld) [Vol rate/Area]22 mL/min/{1.73_m2}Low>=60 mL/min/1.73m 2FMcKitrick HospitalGlucose [Mass/Vol]131 mg/fUKjgz64-899AdozvhzsdWilson HealthIron [Mass/Vol] 66.0 ug/dL65.0-175.0Wilson HealthMagnesium [Mass/Vol]1.9 mg/dL1.8-2.4FMcKitrick HospitalPotassium [Moles/Vol]4.6 mmol/L 3.5-5.1FUK Healthcareodium [Moles/Vol]141 mmol/G738-681 Wilson HealthUrate [Mass/Vol]5.0 mg/dL3.5-7.2FMcKitrick HospitalUrea nitrogen [Mass/Vol]44.0 mg/dLHigh7.0-18.0Wilson HealthUrea nitrogen/Creatinine [Mass ratio]13.0 mg/mgWilson HealthLaboratory - Specimen informationOrdered By: Vaishali Howell on 48-12-6765Kilimtvaru (U)CLEARCLEARFMcKitrick HospitalColor (U) LT. YELLOWYELLOWWilson HealthLaboratory - UrinalysisOrdered By: Vaishali Howell on 86-41-7176Rdsumpark esterase Test strip Ql (U)TRACEAbnormal NEGATIVEWilson HealthMucus Ql (Urine sed)NONE SEENNONE SEEN Wilson HealthNitrite Ql (U)NegativeNEGATIVEWilson HealthProtein (U) [Mass/Vol]137.6 mg/dLHigh<=11.9Wilson HealthProtein Ql (U)100 mg/dLAbnormalNEG/TRACEWilson HealthLeukocytes [#/volume] corrected for nucleated erythrocytes in Blood by Automated counOrdered By: Vaishali Howell on 87-00-2521YIY corrected for nucl RBC Auto (Bld) [#/Vol]5.7 10 3/uL4.0-11.0[facility] HospitalH Auto (RBC) [Entitic mass]Ordered By: Vaishali Howell on 01-19-2025 MCH (RBC) [Entitic mass]33.4 pg25.9-34.0[facility] HospitalHC Auto (RBC) [Mass/Vol]Ordered By: Vaishali Howell on 87-80-7648LMZV (RBC) [Mass/Vol] 35.0 g/dL29.9-35.2FHocking Valley Community HospitalV Auto (RBC) [Entitic vol] Ordered By: Vaishali Howell on 16-00-9834VQN (RBC) [Entitic vol]95.6 nUJcuh91.0-94.0 [facility] HealthNo Panel InformationOrdered By: Vaishali Howell on 56-14-2312Racee BacteriaTRACE #/HPFAbnormalNONE [facility] HospitalUrine Occult BloodTRACE-INEGATIVEWilson HealthUrine Other CastsNONE SEEN #/LPFNONE [facility] HospitalUrine Other CrystalsNone Seen #/HPFNone [facility] GlenbeighUrine Random Stldunzzfn046.73 mg/dL20.00-300.00Wilson HealthUrine RBC0-2 #/HPF0-2FMcKitrick HospitalUrine Squamous Epithelial CellsFEW #/LPFAbnormalNONE/RAREWilson HealthUrine WBC2-5 #/HPF AbnormalNONE [facility]25-Hydroxy Vitamin D Total44.9 ng/mLWilson HealthComment on above:<20 ng/mL Vit D canwpjvoh38-<30 ng/mL Vit D tkmhgbvewevp88-533 ng/mL Vit D sufficient>100 ng/mL Potential ToxicityParathyroid Hormone (Intact)160 pg/yNBujeolrl42-40XjtriochzWilson HealthComment on above:Performed at: - LabcoOverlook Medical CenterRiomlf[address] [place], [place] [id number] Director: Karel Kaye PhD, Phone: [phone] Level3.6 mg/dL2.6-4.7FMcKitrick Hospital Platelet mean volume Auto (Bld) [Entitic vol]Ordered By: Vaishali Howell on 24-88-6929Vprajjye mean volume (Bld) [Entitic vol]8.7 fLLow9.5-13.5FMcKitrick HospitalPlatelets Auto (Bld) [#/Vol]Ordered By: Vaishali Howell on 37-21-4592Pgbegccmf (Bld) [#/Vol]128 10 3/gQClu805-400FfubuejnpWilson HealthRBC Auto (Bld) [#/Vol]Ordered By: Vaishali Lynda on 75-68-7955MIT (Bld) [#/Vol]3.44 10 6/uLLow4.70-6.10[facility] Medical Centererum or plasma anion gap determinationOrdered By: Vaishali Howell on 20-06-0637Nfilc gap [Moles/Vol]15.5 mmol/LFMcKitrick HospitalUrine protein/creatinine ratioOrdered By: Vaishali Howell on 07-06-3786Prfprju/Creatinine (U) [Ratio]0.85 Wilson HealthHbA1c HPLC (Bld) [Mass fraction]Ordered By: Gerry Chang on 40-86-8261HwP5u (Bld) [Mass fraction]7.2 %Wilson HealthEstimated glomerular filtration rate (GFR) non- Americanon 40-56-6930YFJ/1.73 sq M.predicted among non-blacks MDRD (S/P/Bld) [Vol rate/Area]Estimated glomerular filtration rate (GFR) non- AmericanLow>=60 mL/min/1.73m [address] [place], [place] [address]GFR/1.73 sq M.predicted among non-blacks MDRD (S/P/Bld) [Vol rate/Area]19 mL/min/{1.73_m2}Low>=60 mL/min/1.[address]m [address] [place], [place] [address]Laboratory - Chemistry and Chemistry - challengeon 21-25-5939Vywblhuxxy [Mass/Vol]3.25 mg/dLHigh0.70-1.30Wilson HealthGFR/1.73 sq M.predicted MDRD (S/P/Bld) [Vol rate/Area]23 mL/min/{1.73_m2}Low>=60 mL/min/1.[address]m [address] [place], [place] [address]Urea nitrogen [Mass/Vol]45.0 mg/dLHigh7.0-18.0Wilson HealthUrine Cytology ([facility])on 11-04-3513Hqtcpvpixht exam Cytology (U) [Interp]Diagnosis InfoInvalid Interpretation CodeUnc Health Blue Ridge - Morgantoner Johns Hopkins HospitalComment on above: Result Comment: A:Urine,Clean Catch:Bladder Wash Interpretation - Adequate cellularity for evaluation. CPT 10825 MicroScopic Description - Adequacy - Gross Description Site ID:A color Yellow fixative Alcohol Specimen designated Clean Catch received in alcohol preservative and labeled with the patient???s name, consists of 80ml slightly cloudy yellow fluid. Electronically signed by : on: 10/21/2024 13:22:38Performed By: #### [id number] #### [facility] [address] [place] [address]Hrmtikkbmfi distribution width Auto (RBC) [Ratio]on 10-20-2024 Erythrocyte distribution width (RBC) [Ratio]Erythrocyte distribution width [Ratio] by Automated count11.0-15.0Wilson HealthErythrocyte distribution width (RBC) [Ratio]12.1 %11.0-15.0[facility] Estimated glomerular filtration rate (GFR) non- Americanon 10-20-2024 GFR/1.73 sq M.predicted among non-blacks MDRD (S/P/Bld) [Vol rate/Area]Estimated glomerular filtration rate (GFR) non- AmericanLow>=60 mL/min/1.73m 2 Wilson HealthGFR/1.73 sq M.predicted among non-blacks MDRD (S/P/Bld) [Vol rate/Area]17 mL/min/{1.73_m2}Low>=60 mL/min/1.[address]m [address] [place], [place] [address]Hematocrit Auto (Bld) [Volume fraction]on 10-20-2024 Hematocrit (Bld) [Volume fraction]Hematocrit [Volume Fraction] of Blood by Automated nptunVgp66.0-54.0Wilson HealthHematocrit (Bld) [Volume fraction]34.7 %Low42.0-54.0Wilson HealthHemoglobin [Mass/volume] in Bloodon 19-20-6676Bstuzcqmbu (Bld) [Mass/Vol]Hemoglobin [Mass/volume] in SaolmBql08.0-18.0Wilson HealthHemoglobin (Bld) [Mass/Vol]11.9 g/dLLow14.0-18.0Wilson HealthIron binding capacity [Mass/volume] in Serum or Plasmaon 75-44-0482Rxta binding capacity [Mass/Vol]Iron binding capacity [Mass/volume] in Serum or Plasma 250.0-450.0Wilson HealthIron binding capacity [Mass/Vol] 257.0 ug/dL250.0-450.0Wilson HealthIron saturation [Mass Fraction] in Serum or Plasmaon 60-95-6554Syvf saturation [Mass fraction]Iron saturation [Mass Fraction] in Serum or PlasmaWilson Health Iron saturation [Mass fraction]22.6 %Wilson HealthLaboratory - Chemistry and Chemistry - challengeon 38-27-4993Rsqilgv [Mass/Vol]3.5 g/dL 3.4-5.0Wilson HealthCalcium [Mass/Vol]8.9 mg/dL8.5-10.1 Wilson HealthChloride [Moles/Vol]105 mmol/B17-267AzmremnshWilson HealthCO2 [Moles/Vol]24.1 mmol/L21.0-32.0Wilson HealthCreatinine [Mass/Vol]3.53 mg/dLHigh0.70-1.30Wilson HealthFerritin [Mass/Vol]195.0 ng/mL26.0-388.0Wilson HealthGFR/1.73 sq M.predicted MDRD (S/P/Bld) [Vol rate/Area]21 mL/min/{1.73_m2} Low>=60 mL/min/1.73m 2FMcKitrick HospitalGlucose [Mass/Vol]192 mg/qLMtqm00-625UbnndhoypWilson HealthIron [Mass/Vol]58.0 ug/dLLow 65.0-175.0Wilson HealthMagnesium [Mass/Vol]2.0 mg/dL1.8-2.4 Wilson HealthPotassium [Moles/Vol]5.5 mmol/LHigh3.5-5.[address] [facility] Medical Centerodium [Moles/Vol]138 mmol/H805-713PfpvjexwuWilson HealthUrate [Mass/Vol]5.2 mg/dL3.5-7.2FMcKitrick HospitalUrea nitrogen [Mass/Vol]47.0 mg/dLHigh7.0-18.0Wilson HealthUrea nitrogen/Creatinine [Mass ratio]13.3 mg/mgWilson HealthLaboratory - Urinalysison 54-72-5011Oimitvv (U) [Mass/Vol]124.3 mg/dLHigh<=11.9Wilson HealthLeukocytes [#/volume] corrected for nucleated erythrocytes in Blood by Automated counon 07-26-4726KRL corrected for nucl RBC Auto (Bld) [#/Vol]Leukocytes [#/volume] corrected for nucleated erythrocytes in Blood by Automated coun4.0-11.0[facility] WBC corrected for nucl RBC Auto (Bld) [#/Vol]10.9 10 3/uL4.0-11.0[facility] Auto (RBC) [Entitic mass]on 62-52-0217UOO (RBC) [Entitic mass]MCH [Entitic mass] by Automated count25.9-34.0[facility] (RBC) [Entitic mass]33.1 pg25.9-34.0Wilson HealthMCHC Auto (RBC) [Mass/Vol]on 42-45-5315NIAX (RBC) [Mass/Vol]MCHC [Mass/volume] by Automated count29.9-35.2FHocking Valley Community HospitalHC (RBC) [Mass/Vol]34.3 g/dL29.9-35.2FMcKitrick HospitalMCV Auto (RBC) [Entitic vol]on 69-40-5859VVG (RBC) [Entitic vol]MCV [Entitic volume] by Automated tbyapFdrg10.0-94.0[facility]iff[facility] HospitalV (RBC) [Entitic vol]96.4 lRXtte59.0-94.0Wilson HealthNo Panel Informationon 838606-Zjraplm Vitamin D Total43.4 ng/mLWilson Health Comment on above:<20 ng/mL Vit D qwuiddyiw47-<30 ng/mL Vit D xluvdquscdgp83-033 ng/mL Vit D sufficient>100 ng/mL Potential ToxicityParathyroid Hormone (Intact) 100 pg/oLTjejgvxu02-44GbvpxdubrWilson HealthComment on above: Performed at: [employer] [address] [id number] Director: Karel Kaye PhD, Phone: [phone] Level3.7 mg/dL 2.6-4.7FMcKitrick HospitalUrine Random Sahwzruyop948.43 mg/dL 20.00-300.00Wilson HealthPlatelet mean volume Auto (Bld) [Entitic vol]on 65-20-0851Eiworvwm mean volume (Bld) [Entitic vol]Platelet mean volume [Entitic volume] in Blood by Automated countLow9.5-13.5FMcKitrick HospitalPlatelet mean volume (Bld) [Entitic vol]8.9 fLLow9.5-13.5FMcKitrick HospitalPlatelets Auto (Bld) [#/Vol]on 32-18-7694Loefbjoxp (Bld) [#/Vol]Platelets [#/volume] in Blood by Automated gwila759-824NchftzyruWilson HealthPlatelets (Bld) [#/Vol]157 10 3/fS665-454MccjpnndxWilson HealthRBC Auto (Bld) [#/Vol]on 85-21-0436UKT (Bld) [#/Vol]Erythrocytes [#/volume] in Blood by Automated countLow4.70-6.10Wilson HealthRBC (Bld) [#/Vol]3.60 10 6/uLLow4.70-6.10[facility] Serum or plasma anion gap determinationon 35-04-2109Dodaw gap [Moles/Vol]Serum or plasma anion gap determinationWilson HealthAnion gap [Moles/Vol]14.4 mmol/LFMcKitrick HospitalUrine protein/creatinine ratioon 91-31-3832Miepele/Creatinine (U) [Ratio]Urine protein/creatinine ratio Wilson HealthProtein/Creatinine (U) [Ratio]1.04Wilson HealthUrine Cytology ([facility]4 [facility])on 84-39-6891HY Method of ExtractionBladder UrineNoGrand Lake Joint Township District Memorial HospitalComment on above: Performed By: #### [id number] #### [facility] [address] [place], [place] [id number] Number of Guir8Fdwlurl Interpretation UK HealthcareComment on above:Performed By: #### [id number] #### [facility] [address] [id number] SpecimenClean CatchNoGrand Lake Joint Township District Memorial HospitalComment on above:Performed By: #### [id number] #### [facility] [address] [id number] Type of ServiceTechnical OnlyKindred Hospital LimaComment on above:Performed By: #### [id number] #### [facility] [address] [place], [place] [address]Kfefrce Office/Clinic Noteon 08-04-9414Olezhqv Office/Clinic NoteUrology Office/Clinic Note Chief Complaint discuss [...] E&M of Est. Patient Moderate 30-39 Min 02982 Influenza immunization status assessed 1030F Medication list [...] Urnls Dip Stick Auto w/o Microscopy POC 08187 Orders: ciprofloxacin, 500 mg = 1 tab(s), Oral, Daily, Take 1 tablet the day before the procedure and 1 tablet after the procedure, # 2 tab(s), Refills(s) 0, Pharmacy: [facility]/pharmacy #[id number], 187, cm, 10/16/24 8:21:00 EDT, Height/Length Dosing, 104.3, kg, 10/16/24 8:21:00 EDT,... Follow-up With When Contact Information [facility] Additional Instructions: For procedure as [...] Heart disease: Mother an (more content not included)...[facility]red Hospital LimaComment on above:Result Comment: Electronically Signed By: AILEEN DUKES PA-C\Date and Time Signed: 10/16/2509:11 EDTNo Panel Information on 76-80-4311Yqxqfbwt Specific Antigen Total3.01 ng/mL<=4.00[facility] HealthAmbulatory Visit Summaryon [id number] Visit Summary Ambulatory Visit Summary EUGENIO CREWS [...] Schedule the Following Appointments Follow Up with Jenaro HANSEN MD, URL When: Where: [facility] [address] [place] [id number] [phone] Medications What How Much When Instructions Unchanged [...] instructions at home: Medi (more content not included)...NormalSy[facility] CenterURINALYSIS Ordered By: SYSTEM SYSTEM on [id number] Ql (U)NegativeNormal Negativemg/dLFT UA Auto SSClarity (U)Clear (10/06/24 10:41 AM)NormalClearFTMC UA Auto SSColor (U)Light-Yellow 1 (10/06/24 10:41 AM)NormalYellowFT UA Auto SSComment on above:Interpretive Data: Microscopic readings are only performed on those samples that meet specific criteria set forth by [facility].Epithelial cells.squamous Auto (Urine sed) [#/Area]0-2 graded/HPFInvalid Interpretation CodeFTMC UA Auto SSGlucose Ql (U)3+ mg/dLInvalid Interpretation Code Negativemg/dLFTMC UA Auto SSHemoglobin Auto test strip (U) [Mass/Vol]Trace mg/dL Invalid Interpretation CodeNegativemg/dLFTMC UA Auto SSKetones Auto test strip Ql (U)NegativeNormalNegativemg/dLFTMC UA Auto SSLeukocyte esterase Auto test strip Ql (U)NegativeNormalNegativeLeu/uLFTMC UA Auto SSMucus Auto Ql (U)Trace graded/LPFNormalNegativegraded/LPFFTMC UA Auto SSNitrite Auto test strip Ql (U) NegativeNormalNegativemg/dLFTMC UA Auto SSpH (U)6.0 *NA* (10/06/24 10:41 AM)Invalid Interpretation Code5.0 - 9.0FTMC UA Auto SSProtein Ql (U)1+ mg/dLInvalid Interpretation CodeNegativemg/dLBAILEY [facility] [place] Auto SSRBC Ql (U)4-20 graded/HPFInvalid Interpretation Code0-3graded/HPFBAILEY MEDICAL CENTER – [place] UA Auto SSSpecific gravity (U) [Rel density]1.017 *NA* (10/06/24 10:41 AM)Invalid Interpretation Code1.005 - 1.030[facility] [place] UA Auto SS Urobilinogen (U) [Mass/Vol]NegativeNormalNegativemg/dLBAILEY MEDICAL CENTER – [place] UA Auto SSWBC Auto (Urine sed) [#/Area]0-5 graded/HPFNormal0-5graded/HPFBAILEY MEDICAL CENTER – [place] UA Auto SSURINALYSIS Ordered By: Aileen Doa on 69-03-6300XS Spec DescRandom Urine (10/06/24 10:41 AM)NormalBAILEY MEDICAL [facility] – [place] UA Auto SSUrinalysis with Microon 10-06-2024 Bilirubin Ql (U)NegativeNormalNegativeSycamore Medical CenterComment on above:Performed By: #### [id number] #### [facility] [address], [place] [address]Ewpotpb (U)ClearNormalClearSycamore Medical CenterComment on above:Performed By: #### [id number] #### [facility] [address], [place] [address]Ejlix (U)Light-YellowNormalYellowSycamore Medical Center Comment on above:Result Comment: Microscopic readings are only performed on those samples that meet specific criteria set forth by [facility].Performed By: #### [id number] #### [facility] [address], [place] [address]Abhtjqyhkw cells.squamous Auto (Urine sed) [#/Area]0-2Invalid Interpretation CodeSycamore Medical CenterComment on above:Performed By: #### [id number] #### [facility] [address], [place] [address]Uvfgssg Ql (U)3+ mg/dLAbnormalNegativeSycamore Medical CenterComment on above:Performed By: #### [id number] #### [facility] [address], [place] [address]Bzodawdajc Auto test strip (U) [Mass/Vol]TraceAbnormalNegative [facility] Medical CenterComment on above:Performed By: #### [id number] #### [facility] [address] [place] [address]Lnaxqat Auto test strip Ql (U)NegativeNormalNegativeSycamore Medical CenterComment on above:Performed By: #### [id number] #### [facility] [address] [place] [address]Rzkqvijen esterase Auto test strip Ql (U)NegativeNormalNegative [facility] Medical CenterComment on above:Performed By: #### [id number] #### [facility] [address] [place] [address]Nbayy Auto Ql (U)TraceNormalNegativeSycamore Medical Center Comment on above:Performed By: #### [id number] #### [facility] [address] [place] [address]Bvoiuie Auto test strip Ql (U)NegativeNormalNegativeSycamore Medical CenterComment on above:Performed By: #### [id number] #### [facility] [address] [place] [address] 18493lQ (U)6.0 [pH]Invalid Interpretation Code5.0-9.0Sycamore Medical CenterComment on above:Performed By: #### [id number] #### [facility] [address], [place] [address]Zcfkmoz Ql (U)1+ mg/dLAbnormalNegativeSycamore Medical CenterComment on above:Performed By: #### [id number] #### [facility] [address], [place] [address]YDW Ql (U)0-42Jvuhzvvj8-4ShkqwmKnox Community HospitalComment on above:Performed By: #### [id number] #### [facility] [address], [place] [address]Xjhkeiey gravity (U) [Rel density]1.017Invalid Interpretation Code1.005-1.030Sy[facility]ore Medical CenterComment on above:Performed By: #### [id number] #### [facility] [address], [place] [address]Piamvlljsvxr (U) [Mass/Vol]NegativeNormalNegativeSycamore Medical CenterComment on above:Performed By: #### [id number] #### [facility] [address], [place] [address]RXT Auto (Urine sed) [#/Area]6-3Xsxksj3-5Rhqbtr Johns Hopkins HospitalComment on above:Performed By: #### [id number] #### [facility] [address] [place] [address]Cqts of Urine collection methodRandom UrineNormalSycamore Medical CenterComment on above:Performed By: #### [id number] #### [facility] [address], [place] [address]Knthsgt Office/Clinic Noteon 44-03-8780Wjzoicd Office/Clinic NoteUrology Office/Clinic Note Chief Complaint 6 [...] cyst (N28.1: Cyst of kidney, acquired) SHUKRI 11/08/24 [facility] - Large fluid-filled collection within R [...] When Contact Information JADE DOYLE, Jenaro Roberto, [facility] [address], [place] [phone] Additional Instructions: 6 mos w/ PSA and [...] Daily Allergies Toradol ( (more content not included)...NormalFisher Johns Hopkins HospitalComment on above:Result Comment: Electronically Signed By: Jenaro HANSEN MD\.br\Date and Time Signed: 10/06/24 09:17 EDT\.br\Electronically Co-Signed By: Rochelle Hightower\.br\Date and Time Co-Signed: 10/06/24 09:16 EDTNo Panel Informationon 97-05-7672Vlhszdia Specific Antigen Total3.51 ng/mL<=4.00Wilson HealthAlbumin [Mass/volume] in Serum or Plasmaon 07-21-2024 Albumin [Mass/Vol]Albumin [Mass/volume] in Serum or Plasma2.9-4.4FMcKitrick HospitalIgA [Mass/volume] in Serum or Plasmaon 49-03-8166VgW [Mass/Vol]IgA [Mass/volume] in Serum or Wotbit13-470RkfvllptcWilson HealthIgG [Mass/volume] in Serum or Plasmaon 64-46-9027RcL [Mass/Vol]IgG [Mass/volume] in Serum or Wuixrf706-6841YibfaylwhWilson HealthIgM [Mass/volume] in Serum or Plasmaon 10-09-0321WbD [Mass/Vol]IgM [Mass/volume] in Serum or Luisbb34-377DcbpvprotWilson HealthImmunoglobulin light chains.kappa.free [Mass/volume] in Serumon 24-92-6228Rymkxwcgosraio light chains.kappa.free (S) [Mass/Vol]Immunoglobulin light chains.kappa.free [Mass/volume] in SerumAbnormal3.3-19.4FMcKitrick Hospital Immunoglobulin light chains.kappa.free/Immunoglobulin light chains.lambda.free [Sean 97-60-3542Mjkhqfneyclzau light chains.kappa.free/Immunoglobulin light chains.lambda.free (S) [Mass ratio]Immunoglobulin light chains.kappa.free/Immunoglobulin light chains.lambda.free [Mass0.26-1.65 Wilson HealthComment on above:Performed at: [facility]oOver[facility] CenterGxrate[address] [place], [place] [id number] Director: Karel Kaye PhD, Phone: [phone] light chains.lambda.free [Mass/volume] in Serum or Plasmaon 74-78-0154Fdkzrrdvljdqrw light chains.lambda.free [Mass/Vol] Immunoglobulin light chains.lambda.free [Mass/volume] in Serum or PlasmaAbnormal 5.7-26.3FMcKitrick HospitalNo Panel Informationon 07-21-2024 Protein Electrophoresis M-SpikeNot Observed g/dLNot ObservedWilson HealthProtein Electrophoresis NoteComment.Wilson HealthComment on above:Protein electrophoresis scan will follow via computer,mail, or planning coordinator delivery.Protein [Mass/volume] in Serum or Plasmaon 52-19-2522Qijwbju [Mass/Vol]Protein [Mass/volume] in Serum or Plasma6.0-[address] [facility] Centererum globulin measurement (mass/volume)on 61-63-3034Dynvuvqh (S) [Mass/Vol]Serum globulin measurement (mass/volume)2.2-3.[address] [facility] Centererum or plasma albumin/globulin mass ratioon 87-69-2404Fhishwv/Globulin [Mass ratio]Serum or plasma albumin/globulin mass ratio0.7-1.7FUK Healthcareerum or plasma alpha 1 globulin measurement by electrophoresis (mass/volume)on 68-23-1421Nuihm 1 globulin Elph [Mass/Vol]Serum or plasma alpha 1 globulin measurement by electrophoresis (mass/volume)0.0-0.4FUK Healthcareerum or plasma alpha 2 globulin measurement by electrophoresis (mass/volume)on 34-47-7782Yqzdz 2 globulin Elph [Mass/Vol]Serum or plasma alpha 2 globulin measurement by electrophoresis (mass/volume)0.4-1.0[facility] Centererum or plasma beta globulin measurement by electrophoresis (mass/volume)on 07-21-2024 Beta globulin Elph [Mass/Vol]Serum or plasma beta globulin measurement by electrophoresis (mass/volume)0.7-1.3FUK Healthcareerum or plasma gamma globulin measurement by electrophoresis (mass/volume)on 07-21-2024 Gamma globulin Elph [Mass/Vol]Serum or plasma gamma globulin measurement by electrophoresis (mass/volume)0.4-1.8[facility] Centererum or plasma immunoelectrophoresis interpretationon 63-80-0108Mevrezhcogytyb IEP [Interp]Serum or plasma immunoelectrophoresis interpretation.Wilson HealthComment on above:Presence of monoclonal protein is unclear at this time. Suggestrepeat in 3 to 6 months if clinically indicated.Erythrocyte distribution width Auto (RBC) [Ratio]on 21-33-3312Hlyllefmjqj distribution width (RBC) [Ratio]Erythrocyte distribution width [Ratio] by Automated count11.0-15.0 Wilson HealthEstimated glomerular filtration rate (GFR) non- Americanon 78-50-9560RYU/1.73 sq M.predicted among non-blacks MDRD (S/P/Bld) [Vol rate/Area]Estimated glomerular filtration rate (GFR) non- AmericanLow>=60 mL/min/1.73m 2FMcKitrick HospitalHematocrit Auto (Bld) [Volume fraction]on 94-23-2609Arkwftlgtn (Bld) [Volume fraction]Hematocrit [Volume Fraction] of Blood by Automated vadomUnz67.0-54.0Wilson HealthHemoglobin [Mass/volume] in Bloodon 20-66-1813Baahmtcmtg (Bld) [Mass/Vol]Hemoglobin [Mass/volume] in OjnvzSgl34.0-18.0Wilson HealthIron binding capacity [Mass/volume] in Serum or Plasmaon 12-40-2329Nuyn binding capacity [Mass/Vol]Iron binding capacity [Mass/volume] in Serum or Ccjsgo668.0-450.0Wilson HealthIron saturation [Mass Fraction] in Serum or Plasmaon 92-73-2661Ztkf saturation [Mass fraction] Iron saturation [Mass Fraction] in Serum or PlasmaWilson HealthLaboratory - Chemistry and Chemistry - challengeon 34-78-8172Euqosmvhq Ql (U)NegativeNEGATIVEWilson HealthGlucose (U) [Mass/Vol]500 mg/dLAbnormalNEGATIVEWilson HealthKetones Ql (U)Negative NEGATIVEWilson HealthpH (U)6.0 [pH]5.0-9.0[facility] Medical Centerpecific gravity (U) [Rel density]1.0251.005-1.025Wilson HealthUrobilinogen Qn (U)0.2 {Bisi'U}/dL0.2-1.0Wilson HealthAlbumin [Mass/Vol]3.6 g/dL3.4-5.0Wilson HealthCalcium [Mass/Vol]8.4 mg/dLLow8.5-10.1FMcKitrick HospitalChloride [Moles/Vol]106 mmol/P89-645PmdwclnadWilson HealthCO2 [Moles/Vol]25.5 mmol/L21.0-32.0Wilson HealthCreatinine [Mass/Vol]3.27 mg/dLHigh0.70-1.30Wilson HealthFerritin [Mass/Vol]230.0 ng/mL26.0-388.0Wilson HealthGFR/1.73 sq M.predicted MDRD (S/P/Bld) [Vol rate/Area]22 mL/min/{1.73_m2}Low>=60 mL/min/1.73m 2FMcKitrick HospitalGlucose [Mass/Vol]141 mg/dLHigh 74-106Wilson HealthIron [Mass/Vol]82.0 ug/dL65.0-175.0 Wilson HealthMagnesium [Mass/Vol]1.7 mg/dLLow1.8-2.4 Wilson HealthPotassium [Moles/Vol]4.7 mmol/L3.5-5.1FUK Healthcareodium [Moles/Vol]142 mmol/A338-290QsntirhccWilson HealthUrate [Mass/Vol]5.4 mg/dL3.5-7.2FMcKitrick Hospital Urea nitrogen [Mass/Vol]46.0 mg/dLHigh7.0-18.0[facility] Urea nitrogen/Creatinine [Mass ratio]14.1 mg/mgWilson Health Laboratory - Specimen informationon 25-13-6944Oyjiwtrwsx (U)CLEARCLEARFMcKitrick HospitalColor (U)YELLOWYELLOWWilson Health Laboratory - Urinalysison 65-31-3924Vkyfqjpbk esterase Test strip Ql (U)Negative NEGATIVEWilson HealthMucus Ql (Urine sed)TRACEAbnormalNONE [facility] HospitalNitrite Ql (U)NegativeNEGATIVEWilson HealthProtein (U) [Mass/Vol]101.7 mg/dLHigh<=11.9Wilson HealthProtein Ql (U)100 mg/dLAbnormalNEG/TRACEWilson HealthLeukocytes [#/volume] corrected for nucleated erythrocytes in Blood by Automated counon 17-05-5900OCZ corrected for nucl RBC Auto (Bld) [#/Vol]Leukocytes [#/volume] corrected for nucleated erythrocytes in Blood by Automated coun4.0-11.0[facility] HospitalH Auto (RBC) [Entitic mass]on 50-21-1726NLI (RBC) [Entitic mass]MCH [Entitic mass] by Automated count25.9-34.0[facility] HospitalHC Auto (RBC) [Mass/Vol]on 77-53-0134PJKS (RBC) [Mass/Vol]MCHC [Mass/volume] by Automated count29.9-35.2FHocking Valley Community HospitalV Auto (RBC) [Entitic vol]on 09-48-2434OSL (RBC) [Entitic vol]MCV [Entitic volume] by Automated countHigh 80.0-94.0Wilson HealthNo Panel Informationon 45-55-8435Ijgfp BacteriaNONE SEEN #/HPFNONE [facility] HospitalUrine Occult BloodTRACE-INEGATIVEWilson HealthUrine Random Creatinine 129.70 mg/dL20.00-300.00Wilson HealthUrine RBC0-2 #/HPF0-2 Wilson HealthUrine Squamous Epithelial CellsFEW #/LPF AbnormalNONE/RAREWilson HealthUrine WBC0-2 #/HPFAbnormalNONE [facility]25-Hydroxy Vitamin D Total35.2 ng/mL Wilson HealthComment on above:<20 ng/mL Vit D cbahpdtgm84- <30 ng/mL Vit D jobdggkcbrnm65-710 ng/mL Vit D sufficient>100 ng/mL Potential ToxicityParathyroid Hormone (Intact)175 pg/sMNsinjdrm94-24RyquxpqmpWilson HealthComment on above:Performed at: [address] [id number] Director: Karel Kaye PhD, Phone: [phone] Phosphorus Level3.9 mg/dL2.6-4.7FMcKitrick HospitalPlatelet mean volume Auto (Bld) [Entitic vol]on 62-79-8647Nkjsttpn mean volume (Bld) [Entitic vol]Platelet mean volume [Entitic volume] in Blood by Automated countLow9.5-13.5 Wilson HealthPlatelets Auto (Bld) [#/Vol]on 07-14-2024 Platelets (Bld) [#/Vol]Platelets [#/volume] in Blood by Automated countLow 150-450Wilson HealthRBC Auto (Bld) [#/Vol]on 10-92-9928OYZ (Bld) [#/Vol]Erythrocytes [#/volume] in Blood by Automated countLow4.70-6.[address] [facility] Centererum or plasma anion gap determinationon 51-53-3107Rfxqs gap [Moles/Vol]Serum or plasma anion gap determinationWilson HealthUrine protein/creatinine ratioon 07-14-2024 Protein/Creatinine (U) [Ratio]Urine protein/creatinine ratioWilson HealthAlbumin [Mass/volume] in Serum or Plasmaon 23-47-1789Rfxymbd [Mass/Vol]Albumin [Mass/volume] in Serum or Plasma2.9-4.4FMcKitrick HospitalHepatitis B virus surface Ab [Presence] in Serumon 90-94-5679OAJ surface Ab Ql (S)Hepatitis B virus surface Ab [Presence] in SerumAbnormal Immunity>10Wilson HealthComment on above:Status of Immunity Anti-HBs Level Inconsistent with Immunity 0.0 - 10.0Consistent with Immunity >10.0Hepatitis B virus surface Ag [Presence] in Serum or Plasma by Immunoassayon 85-70-9717MHK surface Ag IA QlHepatitis B virus surface Ag [Presence] in Serum or Plasma by ImmunoassayNegativeWilson HealthIgA [Mass/volume] in Serum or Plasmaon 90-38-3933XtM [Mass/Vol]IgA [Mass/volume] in Serum or Ecayba45-011BanecfvthWilson HealthIgG [Mass/volume] in Serum or Plasmaon 43-08-0816HeM [Mass/Vol]IgG [Mass/volume] in Serum or Qxrhav513-8973EipvivlesWilson HealthIgM [Mass/volume] in Serum or Plasmaon 07-74-7610AeO [Mass/Vol]IgM [Mass/volume] in Serum or Mnpnsa23-720FovinwpojWilson HealthImmunoglobulin light chains.kappa.free [Mass/volume] in Serumon 41-33-9119Znznlunfftmmij light chains.kappa.free (S) [Mass/Vol]Immunoglobulin light chains.kappa.free [Mass/volume] in SerumAbnormal3.3-19.4FMcKitrick Hospital Immunoglobulin light chains.kappa.free/Immunoglobulin light chains.lambda.free [Sean 62-41-3982Wjebwkomthbvnr light chains.kappa.free/Immunoglobulin light chains.lambda.free (S) [Mass ratio]Immunoglobulin light chains.kappa.free/Immunoglobulin light chains.lambda.free [Mass0.26-1.65 Wilson HealthComment on above:Performed at: - [facility] [id number] Director: Karel Kaye PhD, Phone: [phone] light chains.lambda.free [Mass/volume] in Serum or Plasmaon 42-59-4084Klpuebzhxzhuin light chains.lambda.free [Mass/Vol] Immunoglobulin light chains.lambda.free [Mass/volume] in Serum or PlasmaAbnormal 5.7-26.3FMcKitrick HospitalLaboratory - Urinalysison 04-11-2024 Protein (U) [Mass/Vol]104.8 mg/dLHigh<=11.9Wilson HealthNo Panel Informationon 84-82-178597972547-Frmeavv Vitamin D Total36.9 ng/mLWilson HealthComment on above:<20 ng/mL Vit D mzvlherwq15-<30 ng/mL Vit D ymbwrrnektbp06-361 ng/mL Vit D sufficient>100 ng/mL Potential Toxicity Hepatitis B Core Total AntibodyNegativeNegativeWilson Health Comment on above:Performed at: - [facility] [id number] Director: Karel Kaye PhD, Phone: [phone] Electrophoresis M-SpikeNot Observed g/dLNot ObservedWilson HealthProtein Electrophoresis NoteComment.[facility] Comment on above:Protein electrophoresis scan will follow via computer,mail, or planning coordinator delivery.Urine Random Wqxihgxdxt339.54 mg/dL20.00-300.00Wilson HealthProtein [Mass/volume] in Serum or Plasmaon 04-11-2024 Protein [Mass/Vol]Protein [Mass/volume] in Serum or Plasma6.0-8.5FUK Healthcareerum globulin measurement (mass/volume)on 04-11-2024 Globulin (S) [Mass/Vol]Serum globulin measurement (mass/volume)2.2-3.9[facility] Centererum or plasma albumin/globulin mass ratioon 04-11-2024 Albumin/Globulin [Mass ratio]Serum or plasma albumin/globulin mass ratio0.7-1.[address] [facility] Centererum or plasma alpha 1 globulin measurement by electrophoresis (mass/volume)on 65-34-4861Fztcp 1 globulin Elph [Mass/Vol]Serum or plasma alpha 1 globulin measurement by electrophoresis (mass/volume)0.0-0.[address] [facility] Centererum or plasma alpha 2 globulin measurement by electrophoresis (mass/volume)on 99-16-6036Qypse 2 globulin Elph [Mass/Vol]Serum or plasma alpha 2 globulin measurement by electrophoresis (mass/volume)0.4-1.[address] [facility] Centererum or plasma beta globulin measurement by electrophoresis (mass/volume)on 30-54-6112Quln globulin Elph [Mass/Vol]Serum or plasma beta globulin measurement by electrophoresis (mass/volume)0.7-1.[address] [facility] Centererum or plasma gamma globulin measurement by electrophoresis (mass/volume)on 58-87-5459Dtrev globulin Elph [Mass/Vol]Serum or plasma gamma globulin measurement by electrophoresis (mass/volume)0.4-1.[address] [facility] Centererum or plasma immunoelectrophoresis interpretationon 85-66-2897Baitukdeyizcwm IEP [Interp]Serum or plasma immunoelectrophoresis interpretation.Wilson HealthComment on above:Presence of monoclonal protein is unclear at this time. Suggestrepeat in 3 to 6 months if clinically indicated.Urine protein/creatinine ratioon 46-03-8074Ewqgkpm/Creatinine (U) [Ratio]Urine protein/creatinine ratioWilson HealthBasophils Auto (Bld) [#/Vol]on 30-07-4930Osupuwile (Bld) [#/Vol]Automated basophil count0.0-0.1FMcKitrick Hospital Basophils/100 WBC Auto (Bld)on 58-74-6040Virvczxsl/100 WBC (Bld)Automated basophil %0.2-2.0Wilson HealthCholesterol in LDL Calc [Mass/Vol]on 73-38-0645Ejgbrqxpdtk in LDL [Mass/Vol]Cholesterol in LDL [Mass/volume] in Serum or Plasma by calculationWilson Health Comment on above:<100 mg/dl NJVGBNP551-490 mg/dl NEAR OR ABOVE ZNGTYSU378-903 mg/dl BORDERLINE LAGC164-796 mg/dl HIGH>190 mg/dl VERY HIGHCholesterol in VLDL Calc [Mass/Vol]on 86-23-2670Arlijicltst in VLDL [Mass/Vol]Cholesterol in VLDL [Mass/volume] in Serum or Plasma by calculationWilson Health Eosinophils/100 WBC Auto (Bld)on 97-20-8753Hcwdyejcgmp/100 WBC (Bld)Automated eosinophil %0.9-7.0Wilson HealthErythrocyte distribution width Auto (RBC) [Ratio]on 11-30-2290Hwcqfzsqzue distribution width (RBC) [Ratio]Erythrocyte distribution width [Ratio] by Automated count11.0-15.0 [facility] HealthEstimated glomerular filtration rate (GFR) non- Americanon 56-20-7205GHE/1.73 sq M.predicted among non-blacks MDRD (S/P/Bld) [Vol rate/Area]Estimated glomerular filtration rate (GFR) non- AmericanLow>=60 mL/min/1.73m 2FMcKitrick HospitalGlobulin Calc (S) [Mass/Vol]on 66-14-6280Gxgpwovx (S) [Mass/Vol]Serum globulin measurement by calculation (mass/volume)Wilson HealthHematocrit Auto (Bld) [Volume fraction]on 36-19-9851Revpetwqoj (Bld) [Volume fraction]Hematocrit [Volume Fraction] of Blood by Automated elocoJfn95.0-54.0Wilson HealthHemoglobin [Mass/volume] in Bloodon 49-95-3807Fqprcdgvdi (Bld) [Mass/Vol]Hemoglobin [Mass/volume] in RbflmKrb72.0-18.0Wilson HealthLaboratory - Chemistry and Chemistry - challengeon 04-01-2024 Albumin [Mass/Vol]3.2 g/dLLow3.4-5.0Wilson HealthALP [Catalytic activity/Vol]92 U/P96-811ToulmrvhpWilson HealthALT [Catalytic activity/Vol]14 U/PCok94-51ZwwxhxpasWilson HealthAST [Catalytic activity/Vol]12 U/RVhy77-34WlredjclxWilson HealthBilirubin [Mass/Vol]0.4 mg/dL0.2-1.0Wilson HealthCalcium [Mass/Vol]8.4 mg/dLLow8.5-10.1FMcKitrick HospitalChloride [Moles/Vol]109 mmol/L Mujh15-880IxzhbjvahWilson HealthCholesterol [Mass/Vol]103 mg/dL<=200 Wilson HealthCholesterol in HDL [Mass/Vol]36 mg/cEZmo33-23 Wilson HealthComment on above:> or =60 mg/dl - LOW CARDIOVASCULAR RISK<40 mg/dl - HIGH CARDIOVASCULAR RISKCO2 [Moles/Vol]21.1 mmol/L21.0-32.0Wilson HealthCreatinine [Mass/Vol]3.15 mg/dL High0.70-1.30Wilson HealthGFR/1.73 sq M.predicted MDRD (S/P/Bld) [Vol rate/Area]23 mL/min/{1.73_m2}Low>=60 mL/min/1.73m 2FMcKitrick HospitalGlucose [Mass/Vol]151 mg/mHRctn54-787HowbpqthjWilson HealthPotassium [Moles/Vol]4.9 mmol/L3.5-5.1FMcKitrick HospitalProtein [Mass/Vol]6.5 g/dL6.4-8.2FUK Healthcareodium [Moles/Vol]142 mmol/H929-807BrinjcjgcWilson HealthTriglyceride [Mass/Vol]170 mg/dLHigh<=150Wilson HealthUrea nitrogen [Mass/Vol]48.0 mg/dLHigh7.0-18.0Wilson HealthUrea nitrogen/Creatinine [Mass ratio]15.2 mg/mgWilson Health Laboratory - Hematology and Cell countson 51-66-1308Bhzwhjwk granulocytes/100 WBC (Bld)0.3 %0.0-0.5FMcKitrick HospitalLaboratory - Urinalysison 17-23-3610Cxkvngh (U) [Mass/Vol]94.1 mg/dLHigh<=11.9Wilson HealthLeukocytes [#/volume] corrected for nucleated erythrocytes in Blood by Automated counon 11-86-6930HFL corrected for nucl RBC Auto (Bld) [#/Vol] Leukocytes [#/volume] corrected for nucleated erythrocytes in Blood by Automated coun4.0-11.0Wilson HealthLymphocytes Auto (Bld) [#/Vol]on 39-36-3524Mjhxysfrorx (Bld) [#/Vol]Lymphocytes [#/volume] in Blood by Automated countLow1.2-3.8Wilson HealthLymphocytes/100 WBC Auto (Bld)on 11-97-2266Zkynaupmsfb/100 WBC (Bld)Lymphocytes/100 leukocytes in Blood by Automated bqbwyNav62.5-60.0Wilson HealthMCH Auto (RBC) [Entitic mass]on 73-98-1387DLD (RBC) [Entitic mass]MCH [Entitic mass] by Automated count25.9-34.0Wilson HealthMCHC Auto (RBC) [Mass/Vol]on 03-18-1532FHSK (RBC) [Mass/Vol]MCHC [Mass/volume] by Automated count29.9-35.2FMcKitrick HospitalMCV Auto (RBC) [Entitic vol]on 37-41-9212LYT (RBC) [Entitic vol]MCV [Entitic volume] by Automated countHigh 80.0-94.0Wilson HealthMonocytes Auto (Bld) [#/Vol]on 30-48-7107Ijufjbsdt (Bld) [#/Vol]Automated blood monocyte count0.3-0.8Wilson HealthMonocytes/100 WBC Auto (Bld)on 13-61-3683Mwszfdqlp/100 WBC (Bld)Automated monocyte %1.7-12.0[facility] Neutrophils Auto (Bld) [#/Vol]on 93-29-7156Kzbnrllgxav (Bld) [#/Vol]Neutrophils [#/volume] in Blood by Automated count1.4-6.5FMcKitrick Hospital Neutrophils/100 WBC Auto (Bld)on 43-15-2378Koakabbpsrt/100 WBC (Bld)Automated neutrophil %High43.0-75.0Wilson HealthNo Panel Informationon 15-84-6450Srpspizkkgz # (Auto)0.2 10 3/uL0.0-0.7FMcKitrick HospitalImmature Granulocyte # (Auto)0.02 10 3/uL0.00-0.03Wilson HealthProstate Specific Antigen Screen5.63 ng/mLHigh<=4.00Wilson HealthUrine Random Muavvjcwzj373.93 mg/dL20.00-300.00Wilson HealthPlatelet mean volume Auto (Bld) [Entitic vol]on 93-17-7570Mnhibqpa mean volume (Bld) [Entitic vol]Platelet mean volume [Entitic volume] in Blood by Automated countLow9.5-13.5FMcKitrick Hospital Platelets Auto (Bld) [#/Vol]on 93-33-9012Esnahfmuu (Bld) [#/Vol]Platelets [#/volume] in Blood by Automated xhbjdQnw945-786YrnohguhxWilson HealthRBC Auto (Bld) [#/Vol]on 20-44-6744CRZ (Bld) [#/Vol]Erythrocytes [#/volume] in Blood by Automated countLow4.70-6.10[facility] Centererum or plasma albumin/globulin mass ratioon 80-44-9253Iycguqx/Globulin [Mass ratio]Serum or plasma albumin/globulin mass ratioMercy Health St. Rita's Medical Centererum or plasma anion gap determinationon 48-86-1772Kwipy gap [Moles/Vol]Serum or plasma anion gap determinationMercy Health St. Rita's Medical Centererum or plasma total cholesterol/high density lipoprotein (HDL) cholesterol mass tawanna 38-39-1783Cacrdwfxdgv.total/Cholesterol in HDL [Mass ratio]Serum or plasma total cholesterol/high density lipoprotein (HDL) cholesterol mass ratWilson HealthComment on above:3.3 - 4.4 LOW RISK4.4 - 7.1 AVERAGE RISK7.1 - 11.0 MODERATE RISK>11.0 HIGH RISKUrine protein/creatinine ratioon 69-42-4935Aoocutp/Creatinine (U) [Ratio]Urine protein/creatinine ratioWilson HealthNo Panel Informationon 38-23-8000NXSC HealthcareGlucose mean value [Mass/volume] in Blood Estimated from glycated hemoglobinon 01-48-7155Rxjowbc glucose Estimated from glycated hemoglobin (Bld) [Mass/Vol]169 mg/dLWilson HealthLaboratory - Hematology and Cell countson 08-75-7740UrS3z (Bld) [Mass fraction]7.5 %High 4.5-6.2FMcKitrick HospitalComment on above:ADA RECOMMENDED LIMIT 4.0 - 6.0ADA THERAPEUTIC TARGET < 7.0ACTION SUGGESTED> 7.0Glucose Glucometer (BldC) [Mass/Vol]Ordered By: Gerry Nelson on 89-32-5522Bbbblnr [Mass/Vol]101 mg/dLWilson HealthComment on above:Random Glucose Reference Range is dependent on time and content of last meal. Glucose of more than 200 mg/dL in a nonstressed, ambulatory subject supports the diagnosis of Diabetes Mellitus.No Panel InformationOrdered By: Gerry Nelson on 98-38-9731Ysmpbmo Glucose CommentGlu2: cleaned meterWilson HealthBasophils Auto (Bld) [#/Vol]Ordered By: Gerry Nelson on 50-10-7811Ehcgmnldo (Bld) [#/Vol]0.0 10*3/uL0.0-0.2FMcKitrick HospitalBasophils/100 WBC Auto (Bld)Ordered By: Gerry Nelson on 76-54-3716Gpuyvzfcx/100 WBC (Bld)0.4 %. Wilson HealthCalcium [Mass/volume] in Serum or PlasmaOrdered By: Gerry Nelson on 69-03-7123Ejmihhh [Mass/Vol]8.7 mg/dL8.6-10.3FMcKitrick HospitalCarbon dioxide, total [Moles/volume] in Serum or Plasma Ordered By: Gerry Nelson on 20-86-6816BA3 [Moles/Vol]22.0 mmol/L21.0-31.0 Wilson HealthChloride [Moles/volume] in Serum or Plasma Ordered By: Gerry Nelson on 90-81-2722Miufoyxe [Moles/Vol]109 mmol/L98-107 Wilson HealthCreatinine [Mass/volume] in Serum or Plasma Ordered By: Gerry Nelson on 93-26-1531Cdlhdoxscf [Mass/Vol]2.90 mg/dL 0.70-1.30Wilson HealthEosinophils Auto (Bld) [#/Vol]Ordered By: Gerry Nelson on 31-81-2854Zsikyvozxrv (Bld) [#/Vol]0.1 10*3/uL0.0-0.45 Wilson HealthEosinophils/100 WBC Auto (Bld)Ordered By: Gerry Nelson on 19-41-5913Pbzffmnotft/100 WBC (Bld)2.4 %.Wilson HealthErythrocyte distribution width Auto (RBC) [Ratio]Ordered By: Gerry Nelson on 47-55-8582Entbdytxicw distribution width (RBC) [Ratio]12.7 % 12.0-14.8Wilson HealthGlucose [Mass/volume] in Serum or PlasmaOrdered By: Gerry Nelson on 22-20-7452Unbuqrq [Mass/Vol]227 mg/rJ60-570 Wilson HealthComment on above:ADA recommended reference rangeRandom Glucose Reference Range is dependent on time and content of last meal. Glucose of more than 200 mg/dL in a nonstressed, ambulatory subject supports the diagnosisof Diabetes Mellitus.Hematocrit Auto (Bld) [Volume fraction]Ordered By: Gerry Nelson on 69-04-7712Uhvbgsxqsv (Bld) [Volume fraction]33.6 %38.8-50.0Wilson HealthHemoglobin [Mass/volume] in BloodOrdered By: Gerry Nelson on 59-97-1906Ztqtkhsuce (Bld) [Mass/Vol]11.4 g/dL13.0-17.0Wilson HealthLeukocytes [#/volume] corrected for nucleated erythrocytes in Blood by Automated coun Ordered By: Gerry Nelson on 01-21-6880HKD corrected for nucl RBC Auto (Bld) [#/Vol]6.2 10*3/uL4.1-10.5FMcKitrick HospitalLymphocytes Auto (Bld) [#/Vol]Ordered By: Gerry Nelson on 56-44-9408Fylbpfvxdvh (Bld) [#/Vol] 0.9 10*3/uL1.00-4.8Wilson HealthLymphocytes/100 WBC Auto (Bld)Ordered By: Gerry Nelson on 96-96-3811Jztkmckcuuy/100 WBC (Bld)14.3 %. [facility] HospitalH Auto (RBC) [Entitic mass]Ordered By: Gerry Nelson on 40-32-9805QLG (RBC) [Entitic mass]32.7 pg27.5-35.2FMcKitrick HospitalMCHC Auto (RBC) [Mass/Vol]Ordered By: Gerry Nelson on 31-26-7073UUPP (RBC) [Mass/Vol]34.0 g/dL32.5-35.6FMcKitrick HospitalMCV Auto (RBC) [Entitic vol]Ordered By: Gerry Nelson on 70-06-9904PCQ (RBC) [Entitic vol]96.1 fL83.5-101Wilson HealthMonocytes Auto (Bld) [#/Vol]Ordered By: Gerry Nelson on 36-51-9807Vaojefqtk (Bld) [#/Vol]0.5 10*3/uL0.0-0.8Wilson HealthMonocytes/100 WBC Auto (Bld)Ordered By: Gerry Nelson on 78-08-7685Emkocybrh/100 WBC (Bld)7.4 %. Wilson HealthNeutrophils Auto (Bld) [#/Vol]Ordered By: Gerry Nelson on 96-79-9255Owogknxgblu (Bld) [#/Vol]4.7 10*3/uL1.8-7.7 Wilson HealthNeutrophils/100 WBC Auto (Bld)Ordered By: Gerry Nelson on 43-86-9732Neglafcoogz/100 WBC (Bld)75.5 %.Wilson HealthNo Panel InformationOrdered By: Gerry Nelson on 08-22-2023 Estimated GFR (CKD-EPI)21.738 mL/MinWilson HealthPharmacy Creatinine Clearance (ChemN/AFMcKitrick HospitalNucleated erythrocytes [Presence] in Blood by Automated countOrdered By: Gerry Nelson on 60-17-9825Qkvuspezz RBC Auto Ql (Bld)0.0 /100{WBC}0-0.5FMcKitrick HospitalPlatelet mean volume Auto (Bld) [Entitic vol]Ordered By: Gerry Nelson on 01-86-8279Lwqvynxn mean volume (Bld) [Entitic vol]7.2 fL6.6-10.1 Wilson HealthPlatelets Auto (Bld) [#/Vol]Ordered By: Gerry Nelson on 01-59-3170Smvwgwnoz (Bld) [#/Vol]165 10*3/bZ216-132WtfbwevizWilson HealthPotassium [Moles/volume] in Serum or PlasmaOrdered By: Gerry Nelson on 65-27-5723Ececzmjws [Moles/Vol]4.7 mmol/L3.5-5.1FMcKitrick HospitalRBC Auto (Bld) [#/Vol]Ordered By: Gerry Nelson on 16-21-2584GEQ (Bld) [#/Vol]3.50 10*6/uL3.90-5.60[facility] Medical Centererum or plasma anion gap determinationOrdered By: Gerry Nelson on 79-27-1684Frbwy gap [Moles/Vol]12.7 mmol/L6.0-15.0[facility]'s Medical Centerodium [Moles/volume] in Serum or PlasmaOrdered By: Gerry Nelson on 56-60-7819Mnedyg [Moles/Vol]139 mmol/B899-767ArppquogqWilson Health Urea nitrogen [Mass/volume] in Serum or PlasmaOrdered By: Gerry Nelson on 33-65-5600Zwsn nitrogen [Mass/Vol]43 mg/dL7-25[facility] WBC Auto (Bld) [#/Vol]Ordered By: Gerry Nelson on 52-03-0740NBY (Bld) [#/Vol] 6.2 10*3/uL4.1-10.5FMcKitrick HospitalGlucose mean value [Mass/volume] in Blood Estimated from glycated hemoglobinon 83-22-5467Mjrwsjj glucose Estimated from glycated hemoglobin (Bld) [Mass/Vol]163 mg/dLWilson HealthLaboratory - Hematology and Cell countson 12-76-2454YiR2m (Bld) [Mass fraction]7.3 %4.5-6.2FMcKitrick HospitalComment on above:ADA RECOMMENDED LIMIT 4.0 - 6.0ADA THERAPEUTIC TARGET < 7.0ACTION SUGGESTED> 7.0CBC AUTO DIFFon 12-71-5558KPYV #0.0 103/ulNormal0.0-0.1The [facility] SystemComment on above:Performed By: #### CBC #### [facility] [address] [address] [address] Dave DuffyBasophils/100 WBC (Bld)0.2 %Normal0.2-2.0The [facility] Comment on above:Performed By: #### CBC #### [facility] [address] [address] [address] Dave Reynolds #0.2 103/ulNormal0.0-0.7The [facility] SystemComment on above: Performed By: #### CBC #### [facility] [address] [address] [address] Dave Clancyosinophils/100 WBC (Bld)2.5 %Normal0.9-7.0The [facility] Comment on above:Performed By: #### CBC #### [facility] [address] [place] [address] Dr. Dave Clancyrythrocyte distribution width (RBC) [Ratio]12.3 %Sjtabh06.0-15.0 [facility] [facility] Hospitalment on above:Performed By: #### CBC #### [facility] [address] [place] [address] Dr. Dave DuffyHematocrit (Bld) [Volume fraction]32.8 %Critically low42.0-54.0 The [facility] SystemComment on above:Performed By: #### CBC #### [facility] [address] [place] [address] Dr. Dave DuffyHemoglobin (Bld) [Mass/Vol]11.4 g/dLCritically low14.0-18.0The [facility]'s Medical Centerment on above:Performed By: #### CBC #### [facility] [address] [place] [address] Dr. Dave Mccormick #0.03 10e3/ulNormal0.00-0.03The [facility] Rita's Medical Centerment on above:Performed By: #### CBC #### [facility] [address] [place] [address] Dr. Dave Mccormick %0.5 %Normal0.0-0.5The [facility]'s Medical Centerment on above: Performed By: #### CBC #### [facility] [address] [place] [address] Dr. Dave Lopez #1.2 103/ulNormal1.2-3.8The [facility] SystemComment on above:Performed By: #### CBC #### [facility] [address] [address] [address] Dave Casasmphocytes/100 WBC (Bld)18.9 %Critically low20.5-60.0The [facility] SystemComment on above:Performed By: #### CBC #### [facility] [address] [address] [address] Dave Quezada DIFF REQNONormalThe [facility] SystemComment on above: Performed By: #### CBC #### [facility] [address] [address] [address] Dave Marrero (RBC) [Entitic mass]32.8 qkGkglqq56.9-34.0The [facility] SystemComment on above:Performed By: #### CBC #### [facility] [address] [place] [address] Dr. Dave Marrero (RBC) [Mass/Vol]34.8 g/bOImyzkx73.9-35.2The [facility] SystemComment on above:Performed By: #### CBC #### [facility] [address] [address] [address] Dave Marrero (RBC) [Entitic vol]94.3 fLCritically high80.0-94.0The [facility] SystemComment on above:Performed By: #### CBC #### [facility] [address] [place] [address] Dr. Dave Estrada #0.5 103/ulNormal0.3-0.8The [facility] SystemComment on above:Performed By: #### CBC #### [facility] [address] [place] [address] Dr. Dave Mayberryocytes/100 WBC (Bld)8.9 %Normal1.7-12.0The [facility] Comment on above:Performed By: #### CBC #### [facility] [address] [place] [address] Dr. Dave Cochran #4.2 103/ulNormal1.4-6.5The [facility] SystemComment on above:Performed By: #### CBC #### [facility] [address] [address] [address] Dave Mcadamsutrophils/100 WBC (Bld)69.0 %Mtukah75.0-75.0The [facility] SystemComment on above:Performed By: #### CBC #### [facility] [address] [address] [address] Dave DuffyPlatelet mean volume (Bld) [Entitic vol]8.7 fLCritically low 9.5-13.5The [facility] SystemComment on above:Performed By: #### CBC #### [facility] [address] [place] [address] Dr. Dave DuffyPLT166 103/hnJcqpmv780-608Xss The [facility] SystemComment on above: Performed By: #### CBC #### [facility] [address] [place] [address] Dr. Dave DuffyRBC3.48 106/ulCritically low4.70-6.10The [facility] SystemComment on above:Performed By: #### CBC #### [facility] [address] [place] [address] Dr. Dave DuffyWBC6.1 103/ulNormal4.0-11.0The [facility] SystemComment on above: Performed By: #### CBC #### [facility] [address] [place] [address] Dr. Dave DuffyLIPID PROFILEon 71-66-7863JVBA-HDL RATIO NORMSEE [facility]de Memorial HospitalComment on above:Result Comment: 3.3 - 4.4 LOW RISK 4.4 - 7.1 AVERAGE RISK 7.1 - 11.0 MODERATE RISK >11.0 HIGH RISKPerformed By: #### CMP, LIPID #### [facility] [address] [place] [address] Dr. Dave DuffyCholesterol [Mass/Vol]106 mg/dLNormal<=200The [facility] Comment on above:Performed By: #### CMP, LIPID #### [facility] [address] [address] [address] Dave DuffyCholesterol in HDL [Mass/Vol]36 mg/dLCritically rfy93-35Qqb [facility] SystemComment on above:Performed By: #### CMP, LIPID #### [facility] [address] [address] [address] Dave DuffyCholesterol in LDL [Mass/Vol]43.4 mg/dLNoChildren's Hospital of ColumbusComment on above:Performed By: #### CMP, LIPID #### [facility] [address] [place] [address] Dr. Dave Sheffieldestertoni.total/Cholesterol in HDL [Mass ratio]2.9 {ratio} NormalThe [facility] SystemComment on above:Performed By: #### CMP, LIPID #### [facility] [address] [place] [address] Dr. Dave VermaL NORMAL> or = 60 mg/dl - LOW CARDIOVASCULAR RISK <40 mg/dl - HIGH CARDIOVASCULAR RISKNoChildren's Hospital of ColumbusComment on above:Performed By: #### CMP, LIPID #### [facility] [address] [place] [address] Dr. Dave Miranda CALC NORMALSEE BELOWUniversity Hospitals Conneaut Medical CenterComment on above:Result Comment: <100 mg/dl OPTIMAL 100 - 129 mg/dl NEAR OR ABOVE OPTIMAL 130 - 159 mg/dl BORDERLINE HIGH 160 - 189 mg/dl HIGH >190 mg/dl VERY HIGH Performed By: #### CMP, LIPID #### [facility] [address] [address] [address] Dave DuffyTriglyceride [Mass/Vol]133 mg/dLNormal<=150The [facility] Comment on above:Performed By: #### CMP, LIPID #### [facility] [address] [place] [address] Dr. Dave DuffyVLDL CALC26.6 mg/dLNoChildren's Hospital of ColumbusComment on above: Performed By: #### CMP, LIPID #### [facility] [address] [place] [address] Dr. Dave DuffyMICROALBUMIN, RAND URon 53-94-7553nBQG40.6 mg/LNormal<=30.0The [facility] SystemComment on above:Performed By: #### MALBR #### [facility] [address] [place] [address] Dr. Dave Arguelles 14(COMP METB)on 45-98-3198Mnganoc [Mass/Vol]3.6 g/dLNormal 3.4-5.0The [facility] SystemComment on above:Performed By: #### CMP, LIPID #### [facility] [address] [place] [address] Dr. Dave DuffyAlbumin/Globulin [Mass ratio]1.2 {ratio}NormalThe [facility] SystemComment on above:Performed By: #### CMP, LIPID #### [facility] [address] [place] [address] [Catalytic activity/Vol]102 U/YEhruhi48-400Jrb The [facility] SystemComment on above:Performed By: #### CMP, LIPID #### [facility] [address] [place] [address] Dr. Dave Hernandez [Catalytic activity/Vol]22 U/LBearil95-05Dba [facility] SystemComment on above:Performed By: #### CMP, LIPID #### [facility] [address] [place] [address] Dr. Dave Ng gap [Moles/Vol]10.8 mmol/LNormalThe [facility] Comment on above:Performed By: #### CMP, LIPID #### [facility] [address] [place] [address] Dr. Dave Armendariz [Catalytic activity/Vol]13 U/LCritically lww14-05Ikf [facility] Centerment on above:Performed By: #### CMP, LIPID #### [facility] [address] [place] [address] Dr. Dave DuffyBilirubin [Mass/Vol]0.5 mg/dLNormal0.2-1.0The [facility] Comment on above:Performed By: #### CMP, LIPID #### [facility] [address] [address] [address] Dave DuffyCalcium [Mass/Vol]8.6 mg/dLNormal8.5-10.1The [facility] Comment on above:Performed By: #### CMP, LIPID #### [facility] [address] [address] [address] Dave DuffyChloride [Moles/Vol]107 mmol/ZErusxb97-877Xla [facility] Comment on above:Performed By: #### CMP, LIPID #### [facility] [address] [place] [address] Dr. Dave DuffyCO2 [Moles/Vol]25.7 mmol/UNtqjhw06.0-32.0The [facility] Comment on above:Performed By: #### CMP, LIPID #### [facility] [address] [place] [address] Dr. Dave DuffyCreatinine [Mass/Vol]2.99 mg/dLCritically high0.70-1.30The [facility] SystemComment on above:Performed By: #### CMP, LIPID #### [facility] [address] [place] [address] Dr. Dave ClancyGFR-AF UGHXKSPK26 mL/min/1.65p2Uhdmacnlaf low>=60The [facility] SystemComment on above:Performed By: #### CMP, LIPID #### [facility] [address] [place] [address] Dr. Dave ClancyGFR-NON AF WJDSWYOB62 mL/min/1.15k3Gtvosglnrm low>=60The [facility] SystemComment on above:Performed By: #### CMP, LIPID #### [facility] [address] [place] [address] Dr. Dave DuffyGlobulin (S) [Mass/Vol]3.1 g/dLNormalThe [facility] SystemComment on above:Performed By: #### CMP, LIPID #### [facility] [address] [place] [address] Dr. Dave DuffyGlucose [Mass/Vol]106 mg/gPKvvvtr73-376Kfv [facility] Comment on above:Performed By: #### CMP, LIPID #### [facility] [address] [address] [address] Dave DuffyPotassium [Moles/Vol]4.5 mmol/LNormal3.5-5.1The [facility] Comment on above:Performed By: #### CMP, LIPID #### [facility] [address] [place] [address] Dr. Dave DuffyProtein [Mass/Vol]6.7 g/dLNormal6.4-8.2[facility] Comment on above:Performed By: #### CMP, LIPID #### [facility] [address] [place] [address] Dr. Dave DuffySodium [Moles/Vol]139 mmol/NUnkkkc118-295Brg [facility] Comment on above:Performed By: #### CMP, LIPID #### [facility] [address] [place] [address] Dr. Dave DuffyUrea nitrogen [Mass/Vol]43.0 mg/dLCritically high7.0-18.0[facility] Health CenterComment on above:Performed By: #### CMP, LIPID #### [facility] [address] [place] [address] Dr. Dave Lua nitrogen/Creatinine [Mass ratio]14.4 mg/mgNormalThe [facility] SystemComment on above:Performed By: #### CMP, LIPID #### [facility] [address] [place] [address] Dr. Dave DuffyXR FLUORO < 1 HRon 84-69-0311UW FLUORO < 1 HREXAMINATION: XR FLUORO < [...] Electronically authenticated by: ALONZO MADRIGAL Date: 2022-03-05 11:26[facility] Medical CenterCNPNon 15-54-4562BVTIPfsesptkm (HEMASA) MARSEUGENIO Cydney ([id number]) 1945 M TRN Date Time Provider Department [...] 02/21/2022 Encounter Status:Closed by ROSELYN PAGE on 02/24/22NoBethesda North Hospitalon [id number] (HEMTSA) EUGENIO CREWS ([id number]) 1945 M TRN Date Time Provider Department [...] 02/21/2022 Encounter Status:Closed by EAMON BISWAS on 03/02/22[facility] BeachwoodDejuan [id number] (HEMTSA) CREWSEUGENIO ([id number]) 1945 M TRN Date Time Provider Department [...] accessed 2 days in a row at [facility] and there was swelling above port site. Dr. Reyes thought perhaps the nurse missed as they use a smaller port at [place] which is where he had it placed. Informed that if we have swelling while patient is here, we would not proceed. verbalized understanding. PSS: please call patient/ to schedule on infusion schedule for possible 2 doses of activase. Jamia: Can you get an xray that was taken of the port at [facility] recently. ( states they did one) Aileen Fish [facility] 02/21/2022 1:12 PM Signed Xray report scanned. [...] Visit Diagnosis:Obstruction of central line, initial encounter ([facility]) [T82.594A] Prescriptions as of [...] 02/21/2022 Encounter Status:Closed by AILEEN JENKINS on 02/21/22NoalCVeterans Health AdministrationGLYCOHEMOGLOBIN A1Con 06-00-4031RZX RECOMMENDATIONSEE BELOWUniversity Hospitals Conneaut Medical CenterComment on above:Result Comment: ADA RECOMMENDED LIMIT 4.0 - 6.0 ADA THERAPEUTIC TARGET < 7.0 ACTION SUGGESTED > 7.0Performed By: #### DATA1C #### [facility] [address] [place] [address] Dr. Dave DuffyGlucose [Mass/Vol]166 mg/dLNormalThe [facility] HospitalComment on above:Performed By: #### DATA1C #### [facility] [address] [address] [address] Dave DuffyHbA1c (Bld) [Mass fraction]7.4 %Critically high4.5-6.2The [facility] SystemComment on above:Performed By: #### DATA1C #### [facility] [address] [place] [address] Dr. Dave DuffyXR CHEST 2 Von 42-19-5385KH CHEST 2 VEXAMINATION: XR CHEST 2 V [...] Electronically authenticated by: ALONZO MADRIGAL Date: 2022-02-07 12:00[facility] CenterPOINT OF [facility] GLUCOSEon 89-39-8998Vbdgrwx [Mass/Vol]163 mg/dL Critically smrf40-632Jxq [facility] SystemComment on above:Performed By: #### POCGLUC #### [facility] [address] [place] [address] Dr. Dave DuffyCNPNon 67-48-6464SNSKLtufhvkik (HEMASA) EUGENIO CREWS ([id number]) 1945 M TRN Date Time Provider Department 04/26/21 ELIA BAL During your visit today, we recorded the following information about you: Elia Bal RN 04/26/2021 2:52 PM Signed Received call from [facility] at Dr Chang's office stating they needed to know what pt's port is being flushed with. [facility] informed pt is getting 20cc NS followed by 5cc Heparin. [facility] verbalizes understanding and denies further needs at this time. Elia Bal RN Allergies As of Date: 04/26/2021 Noted Allergy Reaction PIPERACILLIN-TAZOBACTAM 09/14/2009 2 - Rash Comments: Pt developed severe rash after zosyn initiated KETOROLAC 09/23/2020 16 - Unknown Comments: kidney killer Date Reviewed: 03/25/2021 Reviewed by: Kendall Honeycutt APRN.[employer] - Fully Assessed Reason for Visit: Medication Question [0445] Prescriptions as of 04/26/2021 - atorvastatin (LIPITOR) [...] 05/05/2019 Encounter Status:Closed by ELIA BAL on 04/26/21[facility], BeachwoodCNOVSPon 65-38-3349DPFUCXTuwqf (SP) Office (HEMASA) EUGENIO CREWS ([id number]) 1945 M TRN Date Time Provider Department 03/23/21 1:30 PM KENDALL HONEYCUTT During your visit today, we recorded the following information about you: Temperature Pulse Respiration Blood pressure 97.4 degrees 81/minute 16/minute 141/54 Weight Height 105.9 kg 1.854 m Kendall Honeycutt APRN.[employer] 03/25/2021 12:42 PM Signed Patient: Eugenio Crews Location: [facility] : 1945 Attending Physician: Dr. Kings [...] colonoscopy in September with Dr. Reyes in [place]. He denies fevers, chills, night sweats and [...] patient. Please contact K (more content not included)...NormalChillicothe Hospital Metabolic Panelon 17-77-8056Yoannar [Mass/Vol]3.9 g/dLNormal3.9-4.9CPremier HealthvelandALP [Catalytic activity/Vol]126 U/HVeng68-950Gwldjkuqy Clinic ClevelandALT [Catalytic activity/Vol]13 U/TPbwpzw22-25SbhkcdpvzAkron Children'S Hospital Anion gap [Moles/Vol]7 mmol/LLow9-18[facility] Cleveland-FairhillvelandAST [Catalytic activity/Vol]12 U/QVtd72-13Gaskzfupu Clinic ClevelandBilirubin [Mass/Vol]0.3 mg/dLNormal0.2-1.3CUpper Valley Medical Center ClevelandCalcium [Mass/Vol]8.9 mg/dLNormal 8.5-10.2CUpper Valley Medical Center ClevelandChloride [Moles/Vol]107 mmol/HIbaq41-629 [facility] ClevelandCO2 [Moles/Vol]20 mmol/HUnu78-11Mfjcpvwto Clinic ClevelandCreatinine [Mass/Vol]2.54 mg/dLHigh0.73-1.22[facility] eGFR- Amer.30NormalCVeterans Health AdministrationeGFR-All Other Races25 . NormalAkron Children'S HospitalComment on above:Result Comment: eGFR (Estimated GFR) Units [...] not accurately reflect actual GFR.Glucose [Mass/Vol]169 mg/dLHigh 74-99[facility] on above:Result Comment: The [place] Diabetes Association (ADA) provides guidance for cutoff [...] Standards of Medical Care in Diabetes 2016, [place] Diabetes Association. Diabetes Care. 2016.39(Suppl 1).Potassium [Moles/Vol]4.7 mmol/L Normal3.7-5.1CVeterans Health AdministrationProtein [Mass/Vol]6.2 g/dLLow6.3-8.0 [facility]S HospitalSodium [Moles/Vol]134 mmol/XEen289-281HnnxtxetcAkron Children'S HospitalUrea nitrogen [Mass/Vol]29 mg/dLHigh9-24[facility] Children'S HospitalEPO on 26-10-7723JOE15.4 mIU/mLNormal2.6-18.5CMercy Health St. [facility] on above:Result Comment: Test analyzed by the [employer] DxI method.Performed By: #### EPO #### [facility] [address] [place], [place] [address] Wnvps Occult Bld Tston 89-13-5305Frwcfz FOBNegativeNormalNegative [facility] on above:Result Comment: This test was developed and its performance characteristics determined by [facility]'s [facility] (RT PLAL). It has not been cleared or approved by the FDA. [facility] is regulated under CLIA as qualified to perform high complexity testing. This test is used for clinical purposes. It should not be regarded as investigational or for research.Performed By: #### IFOBT #### [place] [address] Bhsbggunnu 19-88-1998Cqznenfk [Mass/Vol]294.0 ng/nFWtvfle30.3-565.7 [facility]'S HospitalComment on above:Performed By: #### EPO #### [address] [address] Arxxaz, Serumon 42-16-8940Scyyam [Mass/Vol]6.6 ng/mLNormal>4.7 [facility] Children'S HospitalComment on above:Performed By: #### EPO #### [place] [address] Whbm and TIBCon 85-90-7349Hqxz [Mass/Vol]70 ug/bRFizvzp01-004 [facility] HospitalComment on above:Performed By: #### EPO #### [address] [address] XIIL274 ug/bZOwp240-530RlwumbgdkAkron Children'S HospitalCommunson healthcare [facility] on above: Performed By: #### EPO #### [place] [address] Vtvxdwhsnad Tozxyydr14 %Kglazf25-41IzqjocwnsAkron Children'S HospitalCommunson healthcare [facility] on above:Performed By: #### EPO #### [place] [address] XPqn [id number] U/ZQvnuis309-513HlgwafvjqAkron Children'S Hospital Comment on above:Performed By: #### EPO #### [address] [place], [place] [address] Cyhklzt Electrophor.on 55-89-0493Yptcxam [Mass/Vol]3.24 g/dLLow 3.37-4.23[facility] on above:Performed By: #### FERR, B12, SEPG, IRON, TSH, TRANSF, SERFOL ####[facility], [place] [phone] 1 Globulin0.28 gm/dLNormal0.18-0.31 [facility] on above:Performed By: #### FERR, B12, SEPG, IRON, TSH, TRANSF, SERFOL ####[facility] [place], [place] [phone] 2 Globulin0.75 gm/dLNormal0.52-0.97 [facility] on above:Performed By: #### FERR, B12, SEPG, IRON, TSH, TRANSF, SERFOL ####[facility], [place] [phone] Globulin0.78 gm/dLLow0.84-1.36[facility] on above:Performed By: #### FERR, B12, SEPG, IRON, TSH, TRANSF, SERFOL ####[facility], [place] [phone] Globulin0.65 gm/dLLow0.70-1.44[facility] Comment on above:Performed By: #### FERR, B12, SEPG, IRON, TSH, TRANSF, SERFOL ####[facility], [place] [phone] InterpretationSEE COMMENTNormalCMercy Health [address] on above:Result Comment: No definitive M protein is identified on protein electrophoresis. Hypogammaglobulinemia is present, which can be seen in the setting of monoclonal gammopathy. If clinically indicated, monoclonal protein analysis and serum free light chain analysis are suggested to evaluate further for monoclonal gammopathy.Performed By: #### FERR, B12, SEPG, IRON, TSH, TRANSF, SERFOL ####[facility] [place] [phone] M Protein LocationN/ANormalClevelProvidence Hospital on above:Performed By: #### FERR, B12, SEPG, IRON, TSH, TRANSF, SERFOL ####[place] [address] [phone] Petar Concentratn 0.00 gm/dLNormal0.00[facility] on above:Performed By: #### FERR, B12, SEPG, IRON, TSH, TRANSF, SERFOL ####[place] [id number] [place] [phone] [Mass/Vol]5.7 g/dLLow6.3-8.0[facility] on above:Performed By: #### FERR, B12, SEPG, IRON, TSH, TRANSF, SERFOL ####[place] [id number] [place] [phone] Staff ReviewReviewed by Enrrique Chowdhury M.D., PhD ([id number])[facility] on above: Performed By: #### FERR, B12, SEPG, IRON, TSH, TRANSF, SERFOL ####[place] [id number] [place] [phone] CBCDIF (for [facility] use only)on 05-05-9770Yzy Baso<0.03Normal<0.11CVeterans Health AdministrationAbs Mono0.37 k/uLNormal<0.87[facility]S HospitalAbs Neut3.53 k/uL Normal1.45-7.50[facility] HospitalAbsolute nRBC<0.01Normal<0.01[facility] HospitalBasophils/100 WBC (Bld)0.4 %NormalAkron Children'S Hospital DTYPEAuto DiffNormalCleveland Clinic ClevelandEosinophils (Bld) [#/Vol]0.09 10*3/uLNormal<0.46CleOhioHealth Doctors HospitalEosinophils/100 WBC (Bld)1.7 %Normal [facility]S HospitalErythrocyte distribution width (RBC) [Ratio]13.4 % Tamdqu93.5-15.0[facility]'S HospitalHematocrit (Bld) [Volume fraction]29.3 %Low39.0-51.0[facility]S HospitalHemoglobin (Bld) [Mass/Vol]10.0 g/dLLow 13.0-17.0[facility]S HospitalLymphocytes (Bld) [#/Vol]1.17 10*3/uLNormal 1.00-4.00[facility]S HospitalLymphocytes/100 WBC (Bld)22.5 %Normal [facility] HospitalMCH31.7 cVQwvwbh25.0-34.0[facility] MCHC (RBC) [Mass/Vol]34.1 g/zRCnvgdt96.5-36.0[facility]S HospitalMCV (RBC) [Entitic vol]93.0 vPEmrckg34.0-100.0[facility] HospitalMonocytes/100 WBC (Bld)7.1 %NormalAkron Children'S HospitalNeutrophils/100 WBC (Bld)68.3 %Normal [facility]S HospitalNRBCs0.0 /100 VIKOghyci2QpgyxkbhmAkron Children'S Hospital Platelet mean volume (Bld) [Entitic vol]8.5 fLLow9.0-12.7CVeterans Health AdministrationPlatelets (Bld) [#/Vol]162 10*3/hBMuqlnc482-548Wmtnzgzyd Clinic Cleselect medical specialty hospital - columbusRBC (Bld) [#/Vol]3.15 10*6/uLLow4.20-6.00[facility]S HospitalWBC (Bld) [#/Vol]5.20 10*3/uLNormal3.70-11.00[facility]'S HospitalReticulocyte on 45-87-6506Kzs Retic0.044 M/uLNormal0.0180-0.1000[facility] Comment on above:Performed By: #### EPO #### [facility] [address] [place] [address] Nbkvh%1.4 %Normal0.4-2.0[facility]'S HospitalComment on above: Performed By: #### EPO #### [place] [address] [place] [address] EERdm 28-27-0542ZLG Qn2.350 m[IU]/LNormal0.270-4.200[facility]S HospitalComment on above:Performed By: #### EPO #### [place] [address] Cjbfiackfxnou 67-26-6472Zewcjubyptp [Mass/Vol]181 mg/iFYhq421-348 [facility] HospitalComment on above:Performed By: #### EPO #### [place] [address] Xvnltct B12on 31-31-8057Fsynjzgny (Vitamin B12) [Mass/Vol]654 pg/mL Bhdobi011-5058ZlyajozpzVeterans Health AdministrationComment on above:Performed By: #### EPO #### [place] [id number] Vital Signs Date TimeVital SignValuePerforming MbwvqzigaPjyzieau96-01-7632 08:040Body kryjgz912.96 cmBenjamin Ball DO Work Phone: [facility]10-31-2025 08:110400 Body mass index (BMI) [Ratio]29.2 kg/m2Zxwjpcng Ball DO Work Phone: [facility]10-31-2025 08:11040 Body eiuzwptnncn91.5 [degF]Gerry Ball DO Work Phone: [facility]10-31-2025 08:11040 Body qrbwfa329.41 kgBenjamin Ball DO Work Phone: 1(903)[address] [place], [place] 1430410-31-2025 08:11-0400 Diastolic blood mm[Hg]Gerry Ball DO Work Phone: [phone])[address] [place], [place] 1430410-31-2025 08:11-0400 Heart rate83 /minBenjamin Ball DO Work Phone: 1(419)[address] [place], [place] 1430410-31-2025 08:11-0400 Respiratory rate18 /minBenjamin Ball DO Work Phone: 1(419)[address] [place], [place] 1430410-31-2025 08:11-0400 SaO2% (BldA) [Mass fraction]96 %Gerry Ball DO Work Phone: [phone])[address] [place], [place] 1430410-31-2025 08:11-0400 Systolic blood wlccnujg281 mm[Hg]Gerry Ball DO Work Phone: [phone])[address] [place], [place] 1430410-22-2025 11:15-0400 Body oryaqtmrvwa64.6 [degF]Gerry Ball DO Work Phone: [phone])[address] [place], [place] 1430410-22-2025 11:15-0400 Diastolic blood gsbsuaxt98 mm[Hg]Gerry Ball DO Work Phone: 1(941)[address] [place], [place] 1430410-22-2025 11:15-0400 Heart rate76 /minBenjamin Ball DO Work Phone: [phone])[address] [place], [place] 1430410-22-2025 11:15-0400 Respiratory rate17 /minBenjamin Ball DO Work Phone: 1(419)[address] [place], [place] 1430410-22-2025 11:15-0400 SaO2% (BldA) [Mass fraction]98 %Gerry Ball DO Work Phone: [phone])[address] [place], [place] 1430410-22-2025 11:15-0400 Systolic blood mm[Hg]Gerry Ball DO Work Phone: 1419)[address] [place], [place] 1430410-22-2025 06:07-0400 Body wjfret984.2 kgBenjamin Ball DO Work Phone: 1(419)[address] [place], [place] 1430410-21-2025 20:18-0400 Body xctznzwtibv50.5 [degF]Gerry Ball DO Work Phone: [phone])[address] [place], [place] 1430410-21-2025 20:18-0400 Diastolic blood ubxhnsmc90 mm[Hg]Gerry Ball DO Work Phone: 1(419)[address] [place], [place] 1430410-21-2025 20:18-0400 Heart rate80 /minBenjamin Ball DO Work Phone: 1(419)[address] [place], [place] 1430410-21-2025 20:18-0400 Respiratory rate18 /minBenjamin Ball DO Work Phone: 1(419)[address] [place], [place] 1430410-21-2025 20:18-0400 SaO2% (BldA) [Mass fraction]99 %Gerry Ball DO Work Phone: [phone])[address] [place], [place] 1430410-21-2025 20:18-0400 Systolic blood mugvseur098 mm[Hg]Gerry Ball DO Work Phone: 1(419)[address] [place], [place] 1430410-21-2025 02:58-0400 Body zomnue003.96 cmBenjamin Ball DO Work Phone: 1(651)[address] [place], [place] 1430410-21-2025 02:58-0400 Body czhiht947.1 kgBenjamin Ball DO Work Phone: 1419)[address] [place], [place] 1430408-25-2025 13:35-0400 Body rjvbep440.96 cmBenjamin Ball DO Work Phone: 1(419)[address] [place], [place] 1430408-25-2025 13:35-0400 Body mass index (BMI) [Ratio]29.3 kg/e3Dqydsqpt Ball DO Work Phone: 1(419)[address] [place], [place] 1430408-25-2025 13:35-0400 Body ywbzfrefodn56.7 [degF]Gerry Ball DO Work Phone: 1(419)[address] [place], [place] 1430408-25-2025 13:35-0400 Body hepkro336.58 kgBenjamin Ball DO Work Phone: 1(419)[address] [place], [place] 1430408-25-2025 13:35-0400 Diastolic blood mbkmuqgf12 mm[Hg]Gerry Ball DO Work Phone: 1(419)[address] [place], [place] 1430408-25-2025 13:35-0400 Heart rate77 /minBenjamin Ball DO Work Phone: 1(419)[address] [place], [place] 1430408-25-2025 13:35-0400 Respiratory rate18 /minBenjamin Ball DO Work Phone: 1(419)[address] [place], [place] 1430408-25-2025 13:35-0400 SaO2% (BldA) [Mass fraction]100 %Gerry Ball DO Work Phone: 1(419)[address] [place], [place] 1430408-25-2025 13:35-0400 Systolic blood shaidfhx846 mm[Hg]Gerry Ball DO Work Phone: 1(419)[address] [place], [place] 1430406-27-2025 08:37-0400 Body mdcaam626.96 cmBenjamin Ball DO Work Phone: 1(419)[address] [place], [place] 1430406-27-2025 08:37-0400 Body mass index (BMI) [Ratio]28.9 kg/v2Kgwjvohu Ball DO Work Phone: 1(419)[address] [place], [place] 1430406-27-2025 08:37-0400 Body fswqil107.11 kgBenjamin Ball DO Work Phone: 1(419)[address] [place], [place] 1430406-27-2025 08:37-0400 Diastolic blood toumhazr40 mm[Hg]Gerry Ball DO Work Phone: 1(419)[address] [place], [place] 1430406-27-2025 08:37-0400 Heart rate73 /minBenjamin Ball DO Work Phone: 1(419)[address] [place], [place] 1430406-27-2025 08:37-0400 Respiratory rate12 /minBenjamin Ball DO Work Phone: 1(419)[address] [place], [place] 1430406-27-2025 08:37-0400 Systolic blood mxognhwo820 mm[Hg]Gerry Ball DO Work Phone: [phone])[address] [place] [address] Reprdm55-54-8449 09:130400 Body lvfwuj048.96 cmWilson [facility]05-28-2025 09:130400Body mass index (BMI) [Ratio]29.2 kg/u0DsxyyyavwWilson Health05-28-2025 09:0Body fajoph025.41 kgWilson [facility]05-28-2025 09:130400Diastolic blood fsvcwrwy55 mm[Hg][facility] 10-29-2024 09:0400Heart rate64 /[facility] 10-29-2024 09:0Respiratory rate16 /[facility] 10-29-2024 09:2564SpA3% (BldA) [Mass fraction]100 %[facility]05-28-2025 09:130400Systolic blood lspmglgo298 mm[Hg][facility]05-15-2025 08:23-0400Diastolic blood zkqbycnn65 mm[Hg]AILEEN MELISSA [facility]05-15-2025 08:23-0400Mean blood gyfczwvc371 mm[Hg]AILEEN MELISSA [facility]05-15-2025 08:23-0400Systolic blood wcqhwufg289 mm[Hg]AILEEN MELISSA [facility]05-15-2025 08:10-0400Blood Pressure LocationJENNIFER MELISSA [facility]05-15-2025 08:10-0400Body jjtajqtosve12.06 [degF]AILEEN MELISSA [facility]05-15-2025 08:10-0400Diastolic blood zcyzpwkl58 mm[Hg]AILEEN MELISSA [facility]05-15-2025 08:10-0400Heart rate74 /minJENNIFER MELISSA [facility]05-15-2025 08:10-0400Respiratory rate16 /minJENNIFER MELISSA [facility]05-15-2025 08:10-0400Systolic blood vzuvevpi006 mm[Hg]AILEEN DUKES [facility]02-26-2025 08:30-0500Body rbvlze707.96 cmWilson [facility]02-26-2025 08:30-0500Body mass index (BMI) [Ratio]29.1 kg/a0DmphugarhWilson Health02-26-2025 08:30-0500Body hxhadk630.96 kgWilson Health02-26-2025 08:30-0500Diastolic blood kxsaalwj59 mm[Hg] [facility]02-26-2025 08:30-0500Heart rate78 /[facility]02-26-2025 08:30-0500Respiratory rate12 /[facility]02-26-2025 08:30-0500Systolic blood mm[Hg] [facility]02-17-2025 14:37-0500Body uzurco267.96 cm [facility]02-17-2025 14:37-0500Body mass index (BMI) [Ratio]29.4 kg/z0KcdznusomWilson Health02-17-2025 14:37-0500Body dtuyul831.87 kgWilson Health02-17-2025 14:37-0500Diastolic blood oisabkpy71 mm[Hg][facility]02-17-2025 14:37-0500 Heart rate76 /[facility]02-17-2025 14:37-0500 Respiratory rate16 /[facility]02-17-2025 14:37-0500 SaO2% (BldA) [Mass fraction]98 %[facility]02-17-2025 14:37-0500Systolic blood kvnegxeu988 mm[Hg][facility] 05-05-2024 14:43-0500Body ifqmbl925.88 cmWilson [facility] 05-05-2024 14:43-0500Body mass index (BMI) [Ratio]30.4 kg/i2RuwxsezgwWilson Health12-02-2024 14:43-0500Body tuhyryxizow39.7 [degF][facility]12-02-2024 14:43-0500Body mbezct197.6 kgWilson Health12-02-2024 14:43-0500Diastolic blood syklmstu79 mm[Hg][facility]12-02-2024 14:43-0500Heart rate83 /[facility]12-02-2024 14:43-0500Respiratory rate16 /[facility]12-02-2024 14:43-4328PmO5% (BldA) [Mass fraction]100 %[facility]12-02-2024 14:43-0500Systolic blood mm[Hg] [facility]11-11-2024 11:48-0500Blood Pressure Location Jenaro HANSEN [facility]11-11-2024 11:48-0500Diastolic blood uifwmcbq71 mm[Hg]Jenaro HANSEN [facility]11-11-2024 11:48-0500Heart rate86 /Alona HANSEN [facility]11-11-2024 11:48-0500Respiratory rate16 /Sulemacarlos HANSEN [facility]11-11-2024 11:48-0500Systolic blood posbzylu733 mm[Hg]Jenaro HANSEN [facility]10-28-2024 08:30-0400Body summfg046.88 cmWilson Health10-28-2024 08:30-0400Body mass index (BMI) [Ratio]30.4 kg/l4ZfompzkxaWilson Health10-28-2024 08:30-0400Body atthun542.66 kgWilson Health10-28-2024 08:30-0400Diastolic blood ikcvtyaw55 mm[Hg] [facility]10-28-2024 08:30-0400Heart rate80 /[facility]10-28-2024 08:30-0400Respiratory rate12 /[facility]10-28-2024 08:30-0400Systolic blood gxzblylz357 mm[Hg] [facility]06-26-2024 08:37-0400Body mgdjre369.88 cm [facility]06-26-2024 08:37-0400Body mass index (BMI) [Ratio]29.6 kg/r1FdtddkvmsWilson Health06-26-2024 08:37-0400Body lsetvg14.05 [facility]06-26-2024 08:37-0400Diastolic blood lzisrrts53 mm[Hg][facility]06-26-2024 08:37-0400 Heart rate75 /[facility]06-26-2024 08:37-0400 Respiratory rate12 /[facility]06-26-2024 08:37-0400 Systolic blood hxeflvsa116 mm[Hg][facility]05-31-2024 11:53-0400Body .88 cmWilson [facility]05-31-2024 11:53-0400Body mass index (BMI) [Ratio]31.1 kg/d0LiwutjnfeWilson Health05-31-2024 11:53-0400Body .01 kgWilson [facility] 11-02-2023 11:53-0400Diastolic blood fnabutyk50 mm[Hg][facility]05-31-2024 11:53-0400Heart rate60 /[facility] 11-02-2023 11:53-0400Respiratory rate12 /[facility] 11-02-2023 11:53-0400Systolic blood strixdgk544 mm[Hg][facility]03-26-2024 15:35-0400Diastolic blood inmxjwzi56 mm[Hg]DO Gerry Ball Work Phone: 1(618)805-[address] [place], [place] 4872803-26-2024 15:35-0400 Heart rate61 /Lulu Garrett Ball Work Phone: 1(981)171-[address] [place], [place] 4872803-26-2024 15:35-0400 Respiratory rate14 /PatriciaO Gerry Ball Work Phone: 1(567)[address]03-26-2024 15:35-0400 SaO2% (BldA) [Mass fraction]97 %DO Gerry Ball Work Phone: 1(782)[address] [place], [place] 1430403-26-2024 15:35-0400 Systolic blood urciubwl696 mm[Hg]DO Gerry Ball Work Phone: 1(142)[address] [place], [place] 1430403-26-2024 14:48-0400 Body jmfytayjbnx09 [degF]DO Gerry Ball Work Phone: 1(358)[address] [place], [place] 1430403-26-2024 14:23-0400 Inhaled oxygen flow rate8 L/PatriciaO Gerry Ball Work Phone: 1(121)[address] [place], [place] 1430403-26-2024 13:02-0400 Body mass index (BMI) [Ratio]30.4 kg/m2DO Gerry Ball Work Phone: 1(984)[address]03-26-2024 12:21-0400 Body cohqyo153.96 cmDO Gerry Ball Work Phone: 1(212)[address]03-26-2024 12:21-0400 Body clelxm454.5 kgDO Gerry Ball Work Phone: 1(884)[address] [place], [place] 1430402-26-2024 08:30-0500 Body htffon868.42 cmWilson [facility]02-26-2024 08:30-0500Body mass index (BMI) [Ratio]31.6 kg/c5CvafcklnxWilson Health02-26-2024 08:30-0500Body .86 kgWilson [facility]02-26-2024 08:30-0500Diastolic blood xemughfh19 mm[Hg][facility] 07-30-2023 08:30-0500Heart rate80 /minWilson Health 07-30-2023 08:30-0500Respiratory rate16 /minWilson Health 07-30-2023 08:30-0500Systolic blood iqhwxode422 mm[Hg][facility]10-24-2023 08:30-0400Body bjhnme178.42 cmBenjamin Ball Other [employer] Other 10-24-2023 08:30-0400Body mass index (BMI) [Ratio] 30.13 kg/p4Sljsymua Ball Other [employer]The [employer] Other 10-24-2023 08:30-0400Body qeozej804.6 kgBenjamin Ball Other [employer] Other 10-24-2023 08:30-0400Diastolic blood kdbkeheq73 mm[Hg] Gerry Ball Other [employer] Other 10-24-2023 08:30-0400Respiratory rate12 /minBenjamin Ball Other [employer] Other 10-24-2023 08:30-0400Systolic blood mm[Hg] Gerry Ball Other [employer] Other 10-31-2022 12:40-0400Blood Pressure LocationBurnt Cabins JADE [facility]10-31-2022 12:40-0400Diastolic blood hjgyyexc03 mm[Hg]Jenaro HANSEN [facility]10-31-2022 12:40-0400Heart rate76 /minPatrick JADE [facility]10-31-2022 12:40-0400Respiratory rate16 /minPatrick JADE [facility]10-31-2022 12:40-0400Systolic blood evrllwok523 mm[Hg]Jenaro HANSEN [facility] Encounters Encounter DateEncounter TypeCare ProviderFacilityStart: 17-46-1674vjakqbyybv Jenaro HANSENFacility:EU HannaevueStart: 04-10-2025 End: 41-98-5436werhujtkumLncjfmm R WATERSFacility:EU [facility]ueStart: 04-10-2025 End: 51-43-1453Ynrudrw encounter procedureJenaro Roberto JADE [facility] start: 04-03-2025 End: 59-49-6269sjzukoiijlStlepstr Ball DO Work Phone: [facility]Start: 04-03-2025 End: 97-56-7069Paikaut encounter procedureBenjamin Ball DO-[facility] Work Phone: Start: 04-02-2025 End: 74-54-4403Fdkqpi flowsheetNatalie A Felter [employer] Work Phone: NOTN [facility] DermatologyStart: 04-02-2025 End: 10-87-9429Glrcpf flowsheetNatalie A Felter [employer] Work Phone: noms [facility] DermatologyStart: 04-02-2025 End: 22-86-2082Ruxrsu outpatient visit 15 minutesNatzaynab Manzano [employer] Work Phone: noms Carmen DermatologyComment on above:Actinic keratosis; Seborrheic keratosis; Melanocytic nevus of right upper extremity; Melanocytic nevus of left upper extremity; Capillary angioma; Lentigines; History of SCC (squamous cell carcinoma) of skin; Neoplasm of unspecified behavior of bone, soft tissue, and skinStart: 04-02-2025 End: 69-19-0552crfnofcsofZLCSHEW A ROCHELLEDAQUANNot AvailableStart: 94-42-7728Mir- patient / Non-visitCatherine Brown JOE-[facility] Work Phone: Start: 03-24-2025 End: 38-50-8198Cpcmyakxrk and management of inpatientAndmamei Jeff DOYLE-4 [facility] Work Phone: Start: 03-23-2025 End: 96-00-9498aboupyzwanNzfifald Bernardo DO Work Phone: -[facility]ospStart: 03-23-2025 End: 80-07-9679Ypznlvxu ReferredGuillermo Araya DO-[facility] Start: 11-54-5340Uhs-patient / Non-visitGuillermo Araya DO-[facility] Work Phone: Start: 03-20-2025 End: 23-53-9949vnsxkocmzuMukpmbeg Bernardo DO Work Phone: -[facility]Start: 03-20-2025 End: 62-68-6027Gaafuhu encounter procedureBenjamin Ball DO-[facility] Work Phone: Start: 02-05-2025 End: 87-75-8728jvzlaeeyjfBebgydph Ball DO Work Phone: [facility] Work Phone: Start: 02-05-2025 End: 54-12-6008Fskezzw encounter procedureBenjamin Ball DO-[facility] Work Phone: Start: 01-26-2025 End: 39-49-1992wlpqwoybawMytsarhr Ball DO Work Phone: [facility] Work Phone: Start: 01-26-2025 End: 55-48-7005Reezawz encounter procedureVaishali Howell MD-[facility] Work Phone: Start: 57-07-9364Iee-patient / Non-visitVaishali Howell MD -[facility] Work Phone: Start: 01-02-2025 End: 91-48-0054whnpuawquoKqqfxfui Ball DO Work Phone: [facility] Work Phone: Start: 01-02-2025 End: 70-61-8963Ummkqru encounter procedureBenjamin Ball DO-[facility] Work Phone: Start: 11-28-2024 End: 50-29-6808fklpturgpePphwcdut Ball DO Work Phone: [facility] Work Phone: Start: 11-28-2024 End: 16-23-0532Mrwxrjn encounter procedureBenjamin Ball DO-[facility] Work Phone: Start: 11-04-2024 End: 68-28-1029emyjkvwzirGppeakh R WATERSFacility:CD:[id number]: 10-29-2024 End: 07-25-6087uymanwxnqsTylrzblfnMorrow County Hospital Work Phone: Start: 10-29-2024 End: 96-98-1182Vdlzmft encounter procedureMargarita Physician [facility] Work Phone: Start: 72-43-7133Zpx-patient / Non-visitFirelands Physician GroupMulticare Health Professional Co Work Phone: Start: 26-50-9962Csi-patient / Non-visitFirelands Physician GroupMulticare Health Professional Co Work Phone: Start: 10-16-2024 End: 12-13-4418Qcb Drop offJENNIFER E MELISSA [facility] Start: 10-16-2024 End: 65-62-9091vjddqbwmrhMB-C AILEEN DUKESFacility:FTMCStart: 10-16-2024 End: 40-25-8291Vycuici encounter procedureJENAYELYIFER E MELISSA [facility] start: 25-96-1122Hzy-patient / Non-visitFirgreenfields Physician [facility] Work Phone: Start: 10-06-2024 End: 91-67-2613kgdvkcatyqWhstfpg R WATERSFacility:FTMCStart: 10-06-2024 End: 46-12-6872Fvx Drop offPatrick R HANSEN [facility] Start: 10-06-2024 End: 90-87-3190tnwsjyjjygIgmspgm R WATERSFacility:EU BellevueStart: 09-29-2024 Non-patient / Non-visitFirelands Physician [facility] Work Phone: Start: 07-30-2024 End: 18-60-5563hezaovfhmbTriivthauMorrow County Hospital Work Phone: Start: 07-30-2024 End: 44-40-8612Szmlieh encounter procedureFirjohnston memorial hospital Physician GroupK[facility] Work Phone: Start: 07-21-2024 End: 51-53-8684kfgcfllujbUupvxdvdfMorrow County Hospital Work Phone: Start: 07-21-2024 End: 02-09-8540Obizonq encounter procedureFirjohnston memorial hospital Physician Group-[facility] Work Phone: Start: 92-13-3697Fhu-patient / Non-visitFirelands Physician Group-[facility] Work Phone: Start: 06-13-2024 End: 65-20-4492kgmvnubezoXyokzwlgfMorrow County Hospital Work Phone: Start: 06-13-2024 End: 38-17-5066Fssgfsr encounter procedureFirgreenfields Physician Group-[facility] Work Phone: Start: 05-13-2024 End: 95-24-2413Bzpwhzq encounter procedureAt[facility] Work Phone: Start: 05-05-2024 End: 99-46-9404Owcbecg encounter procedureFirjohnston memorial hospital Physician Group-[facility] Work Phone: Start: 04-14-2024 End: 76-20-6297dqvzcmjwwdRWUHOHCM BALLFacility:EU BellevueStart: 04-14-2024 End: 37-52-5340Fkgwgox encounter procedurePacarlos HANSEN [facility] start: 92-75-1373Cim-patient / Non-visitFirelands Physician Group-[facility] Work Phone: Start: 34-46-8804Oju-patient / Non-visitFirelands Physician Group-[facility] Work Phone: Start: 02-65-8765Lqu-patient / Non-visitFirelands [facility]ician [facility] Work Phone: Start: 03-31-2024 End: 72-71-6748khozuoogyvLnfmtnheuMorrow County Hospital Work Phone: Start: 03-31-2024 End: 13-29-3807Btfsrel encounter procedureAt[facility] Work Phone: Start: 80-97-8214Zgpduix encounter [facility] 03-21[facility]2024 End: 54-84-8389Ypjbjy flowsheetNatalie A Felter [employer] Work Phone: noms SWS DERMStart: 03-21-2024 End: 21-28-0726Aiunay flowsheetNatalie A Felter [employer] Work Phone: noms [facility] DERMStart: 03-21-2024 End: 58-11-2275Ggxjhg outpatient visit 15 minutesNatalie A Felter [employer] Work Phone: noms [facility] DERMComment on above:Melanocytic nevus of right upper extremity; Melanocytic nevus of left upper extremity; Seborrheic keratosis; Actinic keratosis; Capillary angioma; History of SCC (squamous cell carcinoma) of skinStart: 02-05-2024 End: 35-86-9712bwpnsixfbaFysawswkwKettering Health [facility] Work Phone: Start: 02-05-2024 End: 59-09-4045Kwzlhbd encounter procedureAt[facility] Work Phone: Start: 12-31-2023 End: 45-35-8458xmnkrasleqOdtphoijvKettering Health [facility] Work Phone: Start: 12-31-2023 End: 16-32-5441Cdjqvry encounter procedureAt[facility] Work Phone: Start: 48-24-6397Rin-patient / Non-visitAtrium Health South[facility] Work Phone: Start: 11-28-2023 End: 06-04-4661qzibjjyddwDqimluhutKettering Health [facility] Work Phone: Start: 11-28-2023 End: 84-11-7906Tzfrlmu encounter procedureAt[facility] Work Phone: Start: 11-02-2023 End: 51-33-7478fsfmxlmltzWZ Gerry Chang Work Phone: [facility] Work Phone: Start: 11-02-2023 End: 46-16-0308Rxaylpm encounter procedureDO Gerry Chang Work Phone: [facility] Work Phone: Start: 09-12-2023 End: 80-28-4828olaxpmxdlgAE Gerry Chang Work Phone: [facility] Work Phone: start: 09-12-2023 End: 76-48-9671Jihmeys encounter procedureDO Gerry Chang Work Phone: [facility] Work Phone: Start: 08-28-2023 End: 35-63-6065Pfcqaoznu to same day surgery centerDO Gerry Chang Work Phone: [facility]Start: 08-28-2023 End: 89-66-6782fwpsnquotkCP Gerry Chang Work Phone: [facility] Work Phone: Start: 08-22-2023 End: 85-54-0172twrcsrmspeUD Gerry Chang Work Phone: [facility] Work Phone: Start: 08-22-2023 End: 13-28-7160Vxtqmdz encounter procedureDO Gerry Chang Work Phone: [facility] Work Phone: Start: 08-10-2023 End: 61-82-0635Ukrihcz encounter procedureDO Gerry Chang Work Phone: [facility] Work Phone: Start: 56-31-3463Vwf-patient / Non-visitDO Gerry Chang Work Phone: [facility] Work Phone: Start: 07-30-2023 End: 70-29-8543hueswgevltSlgnoolddMorrow County Hospital Work Phone: Start: 07-30-2023 End: 24-25-4743Llcipxz encounter procedureAt[facility] Work Phone: Start: 67-12-2329Wrs-patient / Non-visitAtrium Health Southpark [facility] Work Phone: Start: 07-03-2023 End: 78-74-9616gnhbdvgjjiJcodzaaa Ball Other [employer] Other Start: 65-00-2732Aanahzi evaluation of patient and reportBenkamini SwartzG [facility] ClinicStart: 03-29-2023 End: 63-53-8052zhgvwaubtkEhbluhny Ball Other [employer]The [employer] Other Start: 18-45-6684Hgdfhqhuw encounterBenjamin BallFPG [facility] ClinicStart: 03-27-2023 End: 06-32-5757hmicudtdkqIabjdzaq Ball Other [employer] Other Start: 21-71-8180Ltclmfg encounter procedureBenjamin BallFPG [facility] ClinicStart: 03-02-2023 End: 04-01-0069uymplwxkqdDzjprgbw Ball Other [employer] Other Start: 38-50-6534Vgkhki outpatient visit 15 minutes Gerry MaximeG [facility] ClinicStart: 40-90-5205Csidqvsfy encounterBenjamin BallFPG [facility] ClinicStart: 02-06-2023 End: 91-80-5783cmwxdreggaZrnzkfdo Ball Other [employer] Other Start: 56-96-0509Xonoams evaluation of patient and reportBenjamin BallFPG [facility] ClinicStart: 56-22-0909Qxqqpwjhd encounter Gerry BallFPG [facility] ClinicStart: 01-01-2023 End: 72-74-8784knotvzytjhDiqdrtzc Ball Other [employer] Other Start: 20-35-0802Ruqikod evaluation of patient and reportBenjamin BallFPG [facility] ClinicStart: 11-27-2022 End: 72-25-4148zmirwjoqljApntiqdp Ball Other [employer]The [employer] Other Start: 56-69-3425Yrfwekc evaluation of patient and reportBenjamin BallFPG [facility] ClinicStart: 10-18-2022 End: 98-00-4736snkrqbxfjkQT GERRY BALLFacility:B0Cjksi: 09-06-2022 End: 22-70-3590qrzhnmxldkQK GERRY BALLFacility:M9Hztak: 09-04-2022 End: 38-20-1874uhkxtehhpqVgbixxls Ball Other [employer] Other Start: 70-79-0666Wyqvmeczj encounterBenjamin BallFPG [facility] ClinicStart: 08-28-2022 End: 88-17-8689jdqqtaikrzMvdkdfpv Ball Other [employer]The [employer] Other Start: 42-96-6210Oshswgv evaluation of patient and reportBenjamin BallFPG [facility] ClinicStart: 07-27-2022 End: 94-04-9371nuscclkkxbMqoisbxk Ball Other [employer]The [employer] Other Start: 35-52-8748Poeyuzm evaluation of patient and reportGerry Chang Medical ClinicStart: 07-26-2022 End: 57-54-7103lbcovpueemYP GERRY BALLFacility:H8Iikbn: 07-07-2022 End: 45-04-6783agdnzypzqeYcwanuwd Ball Other [employer]The [employer] Other Start: 47-64-1461Rdmfynczl encounterBenkamini Chang Medical ClinicStart: 06-26-2022 End: 23-65-3285ocdqziuznwYovwsqfr Ball Other [employer] Other Start: 60-95-8599Efxvart evaluation of patient and reportGerry Chang Medical ClinicStart: 06-14-2022 End: 80-14-9440cgtxcsqpseXI GERRY BALLFacility:C1Orobs: 05-17-2022 End: 90-13-0576quxbjyqhhtOI GERRY BALLFacility:R3Srgki: 05-03-2022 End: 00-41-6526uhhbkggpctGF GERRY BALLFacility:J3Qgqln: 04-05-2022 End: 22-28-9449cnjdkjckswXF GERRY BALLFacility:R2Escvs: 04-03-2022 End: 94-01-3991Yvplduq encounter procedurePacarlos HANSEN [facility] start: 29-20-5810Itswh health examinationBehan Chang Other [employer]The [employer] Other Start: 29-44-8534Fqf-procedure evaluation check Gerry Chang Other [employer]The [employer] Other Start: 48-31-2353jftwfykpooWS GERRY BALLFacility:H1 Start: 51-56-9052Hzaqwqugs encounterHolly Boni [employer] P[employer]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 Phone: Hematology/OncologyComment on above:Lab OrdersStart: 03-03-2022 End: 61-15-1256ponjspmdvnOR MICHAEL E GRILLIS .Facility:F3Iarmj: 03-03-2022 End: 04-09-1990uwhtuxhiwoXA BENJAMIN BALLFacility:C5Avejl: 02-27-2022 End: 42-28-9607vfyweezrooNigfo Ivory Morales Work Phone: Hematology/OncologyComment on above:Obstruction of central line, initial encounter (HCC) (Primary Dx); Follicular lymphoma, unspecified follicular lymphoma type, unspecified body region (HCC)Start: 50-30-1254Wrcicgwhq encounterEamon Biswas recreation facilities supervisor/OncologyComment on above:Treatment PlanningStart: 05-97-4668Eukfyrfam encounterAileen Jenkins RNHematology/OncologyComment on above:port issuesStart: 02-07-2022 End: 09-38-6751asvhajqrctEJ BENJAMIN BALLFacility:P5Vghun: 02-07-2022 End: 94-53-1267cumhghwayoIN BENJAMIN BALLFacility:K6Zuixv: 12-27-2021 End: 79-65-9663lkgxyrihzmPN BENJAMIN BALLFacility:X6Qblng: 11-17-2021 End: 98-54-4143rgnhpzjioaEF BENJAMIN BALLFacility:H8Ajqgi: 11-16-2021 End: 86-81-6350jmstahuobcEQ MICHAEL E GRILLIS .Facility:V7Iurcc: 11-15-2021 End: 64-49-4753sjaltbyamhKX BENJAMIN BALLFacility:W3Debkc: 15-57-1353hufnvvqefv DR BLADIMIR REYES .Facility:N4Chvhb: 11-09-2021 End: 51-39-8696zljcwspgvrZL DAVID V WESTFacility:O8Hcbjv: 03-23-2021 End: 69-12-9002iuhebbaozyOUENO KARAMLOAccess Hospital Daytonveland Procedures DateProcedureProcedure DetailPerforming ClinicianStart: 04-02-2025 End: 81-20-3091SUDH / NAIL BIOPSYNatalie A Rochelleer [employer] TE[employer]ER Work Phone: Start: 44-59-5449WRRYUQCHNVY SKIN LESIONNatalie A Rochelleer [employer] TE[employer]ER Work Phone: Start: 80-38-7352Rxwvr X-ray abdomenBenjamin Ball DO Work Phone: Start: 91-57-6654Ekdpv X-ray abdomenBenjamin Ball DO Work Phone: Start: 26-83-3515Qtzfq cultureBenjamin Ball DO Work Phone: Start: 29-21-7090INCKXAMTWCZ SKIN LESIONNatalie A Rochelleer [employer] TE[employer]ER Work Phone: Start: 35-70-0335Zteyauxf of lesion of cheekDO Gerry Chang Work Phone: Start: 53-86-1927PUD screeningDR GERRY BERNARDOComment on above:Performed By: #### PSAD #### [facility] [address] [place] [address] Dr. Dave DuffyStart: 71-71-4992Mbxcz depression screening assessmentAileen Jenkins RNStart: 96-12-6081FbtvrqichsnHgodujfy Long RNStart: 29-21-0878Mezoiocngg Jenaro HANSEN Start: 35-39-2462Oylmsgnczu studiesPatrickindra HANSEN Start: 76-29-8996GalpmfbjvjNrkxpgh HANSEN Start: 01-04-9301VorrqsmypiejkkqFwzhxmx HANSEN ColonoscopyPatrick INcubes Depression screeningBenjamin Ball Other EsophagogastroduodenoscopyPatrick INcubes H/O: artificial jointBenjamin Ball Other H/O: artificial jointBenjamin Ball Other LaparoscopyPatrick HANSEN Partial resection of colonPatrick HANSEN Total knee replacementPatrick HANSEN Transurethral biopsy prostatePatrick HANSEN Transurethral prostatectomyPaferozk HANSEN Plan of Treatment DateCare ActivityDetailAuthorStart: 55-88-1066MUbA/Tdap/Td Vaccines (4 - Tdap) DTaP/Tdap/Td Vaccines (4 - Tdap)[facility] HealthcareStart: 10-01-2025 End: 25-92-4867Iyrqhxf encounter cjatgsnvj37/30/2026 8:35 AM EDT Office Visit [facility] [address] [place] [id number] Ashley Manzano, [employer]ER [address] [place] [address] ROBERTO Morales DermatologyStart: 32-47-5410HYFII-19 Vaccine ( season)COVID-19 Vaccine ( season)NOM HealthcareStart: 45-63-5702GsafvkhruMercy Health St. Rita's Medical Centertart: 04-02-2025 End: 90-42-7337Pbhcrkl encounter procedureNOMS SWS DERMComment on above:Arrived Start: 17-93-3114YxgybhepnMercy Health St. Rita's Medical Centertart: 26-29-0749MijrnazhvMarion Hospital CenterStart: 63-29-6490BpldbfonjMarion Hospital CenterStart: 13-70-9787PwtvqxmunMarion Hospital CenterStart: 58-23-3954HqokhwalsMarion Hospital CenterStart: 14-35-5978YfumbozxnMercy Health St. Rita's Medical Centertart: 06-22-5383OzcrdknfpMarion Hospital CenterStart: 13-33-9851VgerfbhouMarion Hospital CenterStart: 61-90-9649Cicqf X-ray abdomenXR abdomen min 2VMercy Health St. Rita's Medical Centertart: 03-25-2025 End: 18-09-6137OpkygvpqaMercy Health St. Rita's Medical Centertart: 78-65-2534Npttdlny admissionMercy Health St. Rita's Medical Centertart: 79-39-6294Ikegeyop to general surgeonMercy Health St. Rita's Medical Centertart: 55-64-8434LjkrjjbkiMercy Health St. Rita's Medical Centertart: 03-23-2025 End: 99-47-9785Xxejf cultureMercy Health St. Rita's Medical Centertart: 03-23-2025 Bacteria identified in Urine by CultureUrine CultureMercy Health St. Rita's Medical Centertart: 03-21-2024 End: 64-38-9835Gihwatn encounter dtjckzwoe10/18/2024 8:30 AM EDT Office Visit 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 Rita's Medical Centertart: 08-28-[address] [facility] Medical Centertart: 02-60-2300QCOIFRCHVH CANCER SCREENING COLORECTAL CANCER SCREENINGSt. Charles Hospitaltart: 50-03-9390CQNER OCCULT BLOOD FECAL OCCULT BLOODSt. Charles Hospitaltart: 03-13-2022 End: 96-58-8344XII W Auto Differential panel - BloodCBC + DIFF Lab Routine Non- Hodgkin's lymphoma, unspecified body region, unspecified non-Hodgkin lymphoma type (HCC) Expected: 03/13/2022, Expires: 05/13/2022[facility] Work Phone: Comment on above:Expected: 03/13/2022, Expires: 05/13/2022tart: 03-13-2022 End: 57-32-2281Bxekjtfwfiyyo metabolic 2000 panel - Serum or PlasmaCOMP METABOLIC PANEL Lab Routine Non-Hodgkin's lymphoma, unspecified body region, unspecified non-Hodgkin lymphoma type (HCC) Expected: 03/13/2022, Expires: 05/13/2022[facility] Work Phone: Comment on above:Expected: 03/13/2022, Expires: 05/13/2022tart: 03-13-2022 End: 69-02-4652Hnkoqca dehydrogenase [Enzymatic activity/volume] in Serum or PlasmaLD LACTATE DEHYDRO Lab Routine Non-Hodgkin's lymphoma, unspecified body region, unspecified non-Hodgkin lymphoma type (HCC) Expected: 03/13/2022, Expires: 05/13/2022[facility] Work Phone: Comment on above:Expected: 03/13/2022, Expires: 05/13/2022tart: 88-54-0397Yakwprcfl vaccinationINFLUENZA (#1)[facility] Start: 26-37-2177Vdkpk depression screening assessmentDEPRESSION SCREENING [facility] Hospitaltart: 16-83-4126FxbjytnjdeqJYSKVMPUIDCYpbkbcjrw ClinicStart: 24-30-7450ZPFRGMJ DIRECTIVE DISCUSSIONADVANCE DIRECTIVE DISCUSSIONSt. Charles Hospitaltart: 84-27-2976BWGNBJPUFB ASSESSMENTDEPRESSION ASSESSMENTSt. Charles Hospitaltart: 60-07-3124DIAFR-19 VACCINE (4 - Booster for Pfizer series)COVID-19 VACCINE (4 - Booster for Pfizer series)[facility]: 1992 COLOGUARD (FIT-DNA)COLOGUARD (FIT-DNA)[facility]: 03-25-0602WA COLONOGRAPHYCT COLONOGRAPHYSt. Charles Hospitaltart: 53-47-2988LUYGPCBCFORAA SIGMOIDOSCOPYSt. Charles Hospitaltart: 00-57-8344Xkqoj microalbumin profile DTAP,TDAP,TD (1 - Tdap)[facility]: 53-66-3192CQRNTW PCP TEAM CHRONIC DISEASE VISITANNUAL PCP TEAM CHRONIC DISEASE VISITSt. Charles Hospitaltart: 30-13-0709Simptmdcq B surface antibody levelLDL CHOLESTEROLAdena Pike Medical Center Start: 25-51-8294AUDVZNBNZ C SCREENINGHEPATITIS C SCREENINGAdena Pike Medical Center Start: comp foot exam completedDIABETIC FOOT EXAMAdena Pike Medical Center Start: 76-23-4126Vkqymooak C antibody, confirmatory testDILATED RETINAL EXAM [facility]: 05-80-7233VANFOASDPYHX: 65+ (1 - PCV)PNEUMOCOCCAL: 65+ (1 - PCV)[facility]: 54-79-3951Cuqeywkjkf A1c/Hemoglobin.total in Blood TDV1RObrmvmfavAdena Pike Medical CenterAnion gap measurementWilson Health Basophils [#/volume] in Blood by Automated [facility] CincinnatiBasophils/100 leukocytes in Blood by Automated [facility] CincinnatiComprehensive metabolic 2000 panel - Serum or PlasmaWilson HealthDermatopathology examDermatopathology exam Pathology and Cytology Timed Neoplasm of unspecified behavior of bone, soft tissue, and skin Release Upon Ordering for 1 Occurrences starting 04/02/2025NOH[employer] Mobile Work Phone: comment on above:Release Upon Ordering for 1 Occurrences starting 04/02/2025Eosinophils/100 leukocytes in Blood by Automated [facility] CincinnatiErythrocyte distribution width [Ratio] by Automated [facility] CincinnatiErythrocytes [#/volume] in Blood Wilson HealthGlomerular filtration rate [Volume Rate/Area] in Serum, Plasma or Blood by CreatinineWilson Health Hematocrit [Volume Fraction] of [facility] HospitalHemoglobin [Mass/volume] in [facility] HospitalLeukocytes [#/volume] corrected for nucleated erythrocytes in Blood by Automated [facility] SystemLeukocytes [#/volume] in BloodWilson HealthLymphocytes [#/volume] in Blood by Automated [facility] CincinnatiLymphocytes/100 leukocytes in Blood by Automated [facility] CincinnatiMCH [Entitic mass] by Automated [facility] CincinnatiMCHC [Mass/volume] by Automated [facility] CincinnatiMCV [Entitic volume] by Automated [facility] Monocytes [#/volume] in Blood by Automated [facility] CincinnatiMonocytes/100 leukocytes in Blood by Automated [facility] CincinnatiNeutrophils [#/volume] in Blood by Automated [facility] CincinnatiNeutrophils/100 leukocytes in Blood by Automated count Wilson HealthNucleated erythrocytes [Presence] in Blood by Automated [facility] CincinnatiPatient EducationKnow your Meds [facility] Work Phone: Patient referralMarion Hospital Ctr Work Phone: Platelet mean volume [Entitic volume] in Blood by Automated [facility] CincinnatiPlatelets [#/volume] in Blood Wilson HealthRenal function 1999 panel - Serum or Plasma Wilson HealthRenal function 1999 panel - Serum or Plasma Wilson HealthRenal function 1999 panel - Serum or Plasma Wilson HealthRenal function 1999 panel - Serum or Plasma [facility] Immunizations Immunization DateImmunizationNotesCare TcpdifydSdvzerya12-19-4221ryahstmmu virus vaccine, unspecified formulationNatalie Felter [employer]ER Work Phone: [facility]10-10-2023COVID-19 Vaccine Pfizer - Documentation Purposes OnlyBehan Chang Other [facility]10-10-2023influenza virus vaccine, unspecified formulationWilson Health 53-20-6610Ocwszluio, Seasonal, Quadrivalent, AdjuvantedNatalie Felter [employer] TEACHER Work Phone: [facility] HospitalFwmdznjguw49-92-8132bodgideoe, high dose seasonal, preservative-freeBenjaberna Chang Other [employer] Other [id number] virus vaccine, split virus (incl. purified surface antigen)Gerry Chang Other noThe [employer] Other [id number] virus vaccine, unspecified formulationWilson Health09-22-2022Influenza, Seasonal, Quadrivalent, AdjuvantedNatalie Felter [employer] COM[employer]ATION TEACHER Work Phone: [facility] HospitalIzpftpzyzc80-86-1429IDFZ-FuN-0 (COVID-19) mRNAMUL.ORD!s90986BwomdgiJenaro HANSEN [facility]04-12-2022SARS-CoV-2 mRNA (mwcbxkevrsn-iiga-vkjfvjh) vaccinePineville Community Hospitalkindra HANSEN [facility]09-24-2021influenza virus vaccine, split virus (incl. purified surface antigen)Gerry Chang Other [employer] Other [id number] virus vaccine, unspecified formulationWilson Health09-24-2021Seasonal trivalent influenza vaccine, adjuvanted, preservative Lei Jenkins RNAdena [facility]ike [facility] 48-42-1042CHIO-CoV-2 (COVID-19) mRNA BNT-162b2 vaxJenaro HANSEN [facility] SystemComment on above:Result Comment: 2024-04-14: [id number]-25 Vaccine Pfizer - Documentation Purposes OnlyGerry Chang Other Wilson HealthComment on above: Result Comment: 2024-04-14: YPW2323-13-8665PFOZG-33 Vaccine Pfizer - Documentation Purposes OnlyBenkamini Chang Other Wilson HealthComment on above: Result Comment: 2024-04-14: [id number] virus vaccine, unspecified formulationPineville Community Hospitalkindra HANSEN [facility]09-03-2020influenza, high-dose, quadrivalent vaccine (FLUZONE HIGH DOSE QUADRIVALENT)Aileen Jenkins RNAdena Pike Medical CenterUifhcx14-96-6747pwgwtn vaccine Vladimir Jenkins RNCleveland Ymmuth29-48-7339txkcrb vaccine recombinant Aileengris Jenkins [facility] JacksonBtrmba52-75-8290xadmztsco virus vaccine, split virus (incl. purified surface antigen)Gerry Chang Other [employer] Other [id number] virus vaccine, unspecified formulationWilson Health10-23-2018influenza virus vaccine, split virus (incl. purified surface antigen)Gerry Chang Other [employer] Other 10228633-98-0700zphhazgta virus vaccine, unspecified formulationWilson Health10-23-2018Seasonal trivalent influenza vaccine, adjuvanted, preservative freeAileen [facility] 52-79-9602zcazqvfkdy, tetanus toxoids and acellular pertussis vaccine, unspecified formulationBehan Chang Other [facility]11-09-2017influenza virus vaccine, split virus (incl. purified surface antigen)Gerry Chang Other [facility] [employer] Other 11798077-19-2686hjftlxwhr virus vaccine, unspecified formulationWilson Health11-09-2017influenza, high dose seasonal, preservative-freeRomannnifer [facility] CenterCxohmd24-82-3700rsvgbvpkh virus vaccine, split virus (incl. purified surface antigen)Gerry Chang Other [facility] [employer] Other 10343235-23-9469gottmuxjw virus vaccine, unspecified formulationWilson Health10-12-2016influenza, high dose seasonal, preservative-freeJennifer [facility]11-06-2015 pneumococcal conjugate vaccine, 13 valentBenkamini Chang Other [facility]11-03-2015influenza virus vaccine, split virus (incl. purified surface antigen)Gerry Chang Other [employer] Other 031841-14-5137vbkgqjzgu virus vaccine, unspecified formulationWilson Health11-03-2015influenza, high dose seasonal, preservative-freeAileen Jenkins [facility]10-13-2014 pneumococcal Conjugate, unspecified formulation; Translations: [Need for prophylactic vaccination against Streptococcus pneumoniae (pneumococcus)] Gerry Chang Other [employer] Other 842342-99-8472boyrvnhasyue polysaccharide vaccine, 23 valentBehan Chang Other [facility]10-13-2014tetanus and diphtheria toxoids, adsorbed, preservative free, for adult use (5 Lf of tetanus toxoid and 2 Lf of diphtheria toxoid)Gerry Chang Other [facility]11-07-2013zoster vaccine, liveAileen Jenkins [facility] – JacksonFeogik61-40-2417ejfcvxyhoc, tetanus toxoids and acellular pertussis vaccine, unspecified formulationGerry Chang Other [facility] Payers DatePayer CategoryPayerPolicy [id number] Health Insurance [id number] 2004Medicare [id number] [id number] 1960 Dgii-yvx9[id number] 2..840.1.126147.3.57[id number] 2..840.1.131819.3.57[id number] 2..840.1.403631.3.57[id number] 2.16.840.1.943664.3.57[id number] 2.16.840.1.369011.3.579.[id number] 2.16.840.1.001379.3.579.2.49974-01-8657Tbfceyq2632189 2.16840.1.552504.3.579.2.34791-74-0900Xokevkk2372471 2.840.1.207884.3.579.2.20416-43-2489Akkcgsa2496907 2.840.1.868924.3.57[id number] 2.840.1.921527.3.57[id number] 2.840.1.043994.3.57[id number] 2.840.1.609041.3.57[id number] 2.840.1.838580.3.57[id number] 2.840.1.646811.3.579.2.82922-04-1962Jfskxxu5029698 2.840.1.262433.3.579.2.18103-10-0962Hlfvkly8339698 2.840.1.284715.3.57[id number] 2.16840.1.009809.3.579.2.11290-07-7989Uwaewry2904122 2.840.1.348957.3.579.[id number] 2.0.1.156868.3.57[id number] 2.0.1.107175.3.57[id number] 2..1.663195.3.579.2.30938-20-1666Pzxurqf84837697 2..1.842953.3.579.2.85848-76-2912Zklfkej39699004 2..1.912024.3.57[id number] 2..1.033027.3.57[id number] 2..1.810537.3.579.2.79144-43-2425Yibmfzl81740559 2..1.912210.3.579.2.150664-44-7060Mglrrry26624370 2..1.863[id number] 7037jo0e-9n11-0jnl-40i9-51o1134x3f40RfzmoaiStephens County [id number] i6618n94-32bt-7mj1-gwi0-d0887ys4opp6Kzgiwiu5762092 2..1.742506.3.579.2.091Gwchwfeq221f0k2-z00f-7336-iv51-18uc38886532Owpypsv 50978389 [id number] Social History DateTypeDetailFacilityStart: 07-15-2012 End: 83-09-9200Kqcktef smoking status NHISNever smoked tobaccoAdena Pike Medical Center Start: 07-15-2012 End: 06-15-3474Ujyrduj use and exposureSmokeless tobacco non-userSt. Charles Hospitaltart: 57-72-2330Kjwiszj intakeCurrent non-drinker of alcohol (finding) [facility]: 89-83-6332Vxh Assigned At BirthNot on fileSt. Charles Hospitaltart: 02-11-2022 End: 48-82-5344Pxxziugb to SARS-CoV-2 (event)Not sureSt. Charles Hospitaltart: 10-31-2023 End: 63-07-9416Wlv [facility]: 60-42-2275Gla [facility]: 10-31-2023 End: 52-40-9622Yelhmoeuk beverage intakeCurrent drinker of alcohol (finding)[facility]Start: 10-31-2023 End: 29-07-2366Gghzfgx of Social functionNOMS HealthcareStart: 16-61-4617Jwsixnz CommentMonthly or lessNOMS HealthcareStart: 78-12-8309Qyttgtf smoking status NeverExecutive [facility]rology of [facility] BellevueStart: 09-15-2009 End: 63-68-9378YkqOhct (finding)[facility] Medical Equipment Procedure CodeEquipment CodeEquipment Original TextEquipment IdentifierDates1 each by Other route if neededBlood Sugar Diagnostic (Contour Next Test Strips) stripStart: 87-20-8480Mrfkv Sugar Diagnostic (Contour Next Test Strips) strip Start: 06-16-2024 End: 66-37-0478Jvvvd Sugar Diagnostic (Contour Next Test Strips) stripStart: 41-02-5167Oanpl Sugar Diagnostic (Contour Next Test Strips) stripStart: 06-16-2024 End: 67-03-0075Efqwt Sugar Diagnostic (Contour Next Test Strips) stripStart: 39-99-3623Elbeh Sugar Diagnostic (Contour Next Test Strips) stripStart: 06-16-2024 End: 49-76-6204Zqfur Sugar Diagnostic (Contour Next Test Strips) stripStart: 85-74-5051Mkmpv Sugar Diagnostic (Contour Next Test Strips) stripStart: 06-16-2024 End: 11-51-0163Pvlzl Sugar Diagnostic (Contour Next Test Strips) stripStart: 90-35-9285Pmxyb Sugar Diagnostic (Contour Next Test Strips) stripStart: 06-16-2024 End: 15-83-1478Ogvyp Sugar Diagnostic (Contour Next Test Strips) stripStart: 50-22-9796Fzdhr Sugar Diagnostic (Contour Next Test Strips) stripStart: 06-16-2024 End: 45-51-0316Rjrkl Sugar Diagnostic (Contour Next Test Strips) stripStart: 81-27-5121Siccx Sugar Diagnostic (Contour Next Test Strips) stripStart: 06-16-2024 End: 15-02-0472Livtq Sugar Diagnostic (Contour Next Test Strips) stripStart: 84-44-5717Zqzhj Sugar Diagnostic (Contour Next Test Strips) stripStart: 06-16-2024 End: 55-47-3526Fubrv Sugar Diagnostic (Contour Next Test Strips) stripStart: 06-16-2024 End: 14-55-6847Jprge Sugar Diagnostic (Contour Next Test Strips) stripStart: 27-68-7332Tthjn Sugar Diagnostic (Contour Next Test Strips) stripStart: 06-16-2024 End: 76-08-2629Slwtv Sugar Diagnostic (Contour Next Test Strips) stripStart: 06-16-2024 End: 72-57-3387Dpvmf Sugar Diagnostic (Contour Next Test Strips) stripStart: 47-52-2179Avwmc Sugar Diagnostic (Contour Next Test Strips) stripStart: 06-16-2024 End: 96-14-5543Ccath Sugar Diagnostic (Contour Next Test Strips) stripStart: 06-16-2024 End: 80-55-1321Mnaoy Sugar Diagnostic (Contour Next Test Strips) stripStart: 68-71-6610Wpnlc Sugar Diagnostic (Contour Next Test Strips) stripStart: 06-16-2024 End: 40-44-9866Ygnlm Sugar Diagnostic (Contour Next Test Strips) stripStart: 06-16-2024 End: 02-19-2025 Goals DatePatient GoalDesired Activity/State Functional Status RytvYicuxjbwzqBvvybnKsntsvpv18-71-6114Dnmvixwxzy statusPatient at Baseline [facility] Work Phone: [phone]) 114-617410-086666-14-9793Nnltgvoole statusPatient at Baseline [facility] Work Phone: 1(169) 512-957505818625-86-0967Ymgldruewc StatusN/AExec[facility]11-11-2024Functional StatusN/A[facility]10-31-2022Functional StatusN/A [facility] Mental Status UhdjLpdxyctdbwRpnfnmJjlabnbe20-24-1611Bfsarjacv functionCognitive Status Patient at BaselineSt[facility] Work Phone: [phone]) [phone]iupdawzk functionCognitive Status Patient at [facility] Work Phone: Clinical Notes 05-02-2019 to 04-02-2025 Note Date & DhzqYlxsYcxmwxxc75-64-0416 History of Present illness Narrative* Ashley Edward Manzano, IRON P[employer]IC BULLET [employer]KER[employer]ATION [employer] - 04/02/2025 8:35 AM EDT Images from [...] limited to risks of scarring, darker or 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 [...] x 0.9 cm Left tip of Nose [place] papule - Lesion biopsy Type of biopsy: [...] 6 months skin check documented in this encounterSaint Alexius HospitalNrwlnwfyab16-41-8703 [place] [address] General Surgery Progress Note Signed Patient: Eugenio Crews MR#: [id number] : 1945 Acct:[id number] Age/Sex: 79 / M Adm Date: 5 Loc: Room: [address] [place] [address] Type: ADM IN Attending Dr: Bryon Aguliar MD Copies to: ~ Date of Service: [...] 50 mls @ 100 mls/hr IV Q24H [facility] Last Admin: 03/25/25 04:31 Dose: 100 mls/hr Sodium Bicarbonate 100 meq/ (Dextrose) 1,100 mls @ 100 mls/hr IV .Q11H [facility] Stop: 03/24/26 12:59 Last Admin: 03/25/25 02:47 Dose: 100 mls/hr Insulin Aspart (Insulin Aspart 300 Units/3 Ml) 0 units SUBCUT Q6HR [facility]; Protocol Stop: 03/24/26 05:59 Last Admin: 03/25/25 06:08 Dose: Not Given Insulin Glargine (Insulin Glargine 300 Units/3 Ml Insuln.Pen) 8 units SUBCUT Q24H [facility] Stop: 03/24/26 11:59 Last Admin: 03/24/25 15:13 Dose: 8 units Metoprolol Tartrate (Metoprolol Tartrate 5 Mg/5 Ml Vial) 2.5 mg IV-PUSH Q6H [facility] Stop: 03/24/26 11:45 Last Admin: 03/25/25 [...] inpatient stay. Pt was originally transferred [place] [facility] [place] a suspected [place]. Patient has frequent [...] % (Auto) 76.6, Lymph % (Auto) 12.4, Dickey % (Auto) 9.0, Eos % (Auto) 1.8, Baso % (Auto) 0.2, Nucleat RBC Rel Count 0.1, Neut # (Auto) 5.5, Lymph # (Auto) 0.9 L, Dickey # (Auto) 0.6, Eos # (Auto) 0.1, Baso # (Auto) 0.0, PHA Creatinine Clear 27.06, Sodium 137, Potassium 4.5, Chloride 105, Carbon Dioxide 26.4, Anion Gap 10.1, BUN 39 H,Creatinine 2.93 H, Est GFR (CKD-EPI) 21.338, Glucose 116 H D, Calcium 8.3 L 03/25/25 00:56: POC Glucose 142 10/21/25 21:18: POC Glucose 204 03/24/25 17:23: POC [...] DO 03/25/25 11 36 Signed By: 03/25/[address] [place], [place] 4783710-22-2025 [place] [address] General Surgery Consult Note Signed Patient: Eugenio Crews MR#: [id number] : 1945 Acct:[id number] Age/Sex: 79 / M Adm Date: 5 Loc: 4N Room: [address] [place] [address] Type: ADM IN Attending Dr: Bryon Aguilar MD Copies to: MD Gerry Torres DO Fredric Itzkowitz, DO~ History of Present Illness Date of consult: 03/24/2025 Reason for consult: abdominal pain Requesting/Attending Provider: Bryon Aguilar MD History of present illness: Pt is a well appearing 79 year old male who presents to [facility] [place] [facility] this morning for abdominal cramping and pain from [facility] ED. At 5pm last night, pt presented [...] 4 years. When patient was transferred [place] [facility] [place] [facility], pt had a large emesis [...] 50 mls @ 100 mls/hr IV Q24H [facility] Last Admin: 03/24/25 04:07 Dose: 100 mls/hr Sodium Bicarbonate 100 meq/ (Dextrose) 1,100 mls @ 100 mls/hr IV .Q11H [facility] Stop: 03/24/26 12:59 Last Admin: 03/24/25 15:13 Dose: 100 mls/hr Insulin Aspart (Insulin Aspart 300 Units/3 Ml) 0 units SUBCUT Q6HR [facility]; Protocol Stop: 03/24/26 05:59 Last Admin: 03/24/25 13:21 Dose: Not Given Insulin Glargine (Insulin Glargine 300 Units/3 Ml Insuln.Pen) 8 units SUBCUT Q24H [facility] Stop: 03/24/26 11:59 Last Admin: 03/24/25 15:13 Dose: 8 units Metoprolol Tartrate (Metoprolol Tartrate 5 Mg/5 Ml Vial) 2.5 mg IV-PUSH Q6H [facility] Stop: 03/24/26 11:45 Last Admin: 03/24/25 [...] to be resolving. He went to the [facility] emergency room where he was diagnosed with a bowel obstruction based on CT findings and physical exam. The the ER doc called and asked if we would accept Eugenio in transfer with surgical consultation for bowel obstruction. He was subsequently transferred to [facility]. An NG tube was placed and the [...] Peña DO 03/24/25 17 16 Signed By: 03/25/25 1149 [facility]10-21-2025 Progress note Author Bryon Aguilar [facility] Date/TimeOctober 2024 3:11pm [place] [address] Hospitalist Progress Note Signed Patient: Eugenio Crews MR#: [id number] : 1945 Acct:[id number] Age/Sex: 79 / M Adm Date: 5 Loc: Room: [address] [place] [address] Type: ADM IN Attending Dr: Bryon Aguilar [...] 03/24/25 13:00 Dextrose IV 03/24/26 12:59 .Q11H [facility] Insulin Aspart 0 units 03/24/25 06:00 03/24/25 13:21 Insulin Aspart 300 Units/3 Ml SUBCUT 03/24/26 05:59 Not Given Q6HR [facility] Protocol Insulin Glargine 8 units 03/24/25 12:00 Insulin Glargine 300 Units/3 Ml Insuln.Pen SUBCUT 03/24/26 11:59 Q24H [facility] Metoprolol Tartrate 2.5 mg 03/24/25 11:50 03/24/25 13:20 Metoprolol Tartrate 5 Mg/5 Ml Vial IV-PUSH 03/24/26 11:45 Not Given Q6H [facility] Ondansetron HCl 4 mg 03/24/25 11:50 [...] type 2 Documented By: Bryon Aguilar MD 03/24/25 151 Signed By: <Electronically signed by Bryon Aguilar MD> 03/24/[address] [facility] Work Phone: 1(270) 106-817110-21-2025 [place] [address] Hospitalist Progress Note Signed Patient: Eugenio Crews MR#: [id number] : 1945 Acct:[id number] Age/Sex: 79 / M Adm Date: 5 Loc: Room: [address] [place] [address] Type: ADM IN Attending Dr: Bryon Aguilar [...] 03/24/25 13:00 Dextrose IV 03/24/26 12:59 .Q11H [facility] Insulin Aspart 0 units 03/24/25 06:00 03/24/25 13:21 Insulin Aspart 300 Units/3 Ml SUBCUT 03/24/26 05:59 Not Given Q6HR [facility] Protocol Insulin Glargine 8 units 03/24/25 12:00 Insulin Glargine 300 Units/3 Ml Insuln.Pen SUBCUT 03/24/26 11:59 Q24H [facility] Metoprolol Tartrate 2.5 mg 03/24/25 11:50 03/24/25 13:20 Metoprolol Tartrate 5 Mg/5 Ml Vial IV-PUSH 03/24/26 11:45 Not Given Q6H [facility] Ondansetron HCl 4 mg 03/24/25 11:50 [...] Aguilar MD 03/24/251509 Signed By: 03/24/25 1511 [facility]10-21-2025 History and physical note Author Moise Walker [facility] Date/TimeOctober 2024 3:36am [place] [address] Hospitalist H&P Signed Patient: Eugenio Crews MR#: [id number] : 1945 Acct:[id number] Age/Sex: 79 / M Adm Date: 5 Loc: 4N Room: [address] [place] [address] Type: ADM IN Attending Dr: Moise Walker MD Copies to: DO Moise Ruff MD~ [facility] DATE OF EXAMINATION: 03/24/25 CHIEF COMPLAINT: abdominal pain/distention, nausea/vomiting HISTORY OF PRESENT ILLNESS: 79 year old man with 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 / M Adm Date: 5 Loc: 4N Room: 0Q9011-0 Type: ADM IN Attending Dr: Bryon Aguilar [...] 5,000 Unit/Ml Vial) 5,000 unit SUBCUT Q8HR [facility] Stop: 03/24/26 13:59 Last Admin: 03/25/25 06:08 Dose: 5,000 unit Hydromorphone HCl (Hydromorphone 0.5 Mg/0.5 Ml Syringe) 0.4 mg IV-PUSH Q2HR PRN PRN Reason: Pain Scale 8 - 10 Ceftriaxone Sodium (Rocephin) 1 gm in 50 mls @ 100 mls/hr IV Q24H [facility] Last Admin: 03/25/25 04:31 Dose: 100 mls/hr Sodium Bicarbonate 100 meq/ (Dextrose) 1,100 mls @ 100 mls/hr IV .Q11H [facility] Stop: 03/24/26 12:59 Last Admin: 03/25/25 02:47 Dose: 100 mls/hr Insulin Aspart (Insulin Aspart 300 Units/3 Ml) 0 units SUBCUT Q6HR [facility]; Protocol Stop: 03/24/26 05:59 Last Admin: 03/25/25 06:08 Dose: Not Given Insulin Glargine (Insulin Glargine 300 Units/3 Ml Insuln.Pen) 8 units SUBCUT Q24H [facility] Stop: 03/24/26 11:59 Last Admin: 03/24/25 15:13 Dose: 8 units Metoprolol Tartrate (Metoprolol Tartrate 5 Mg/5 Ml Vial) 2.5 mg IV-PUSH Q6H [facility] Stop: 03/24/26 11:45 Last Admin: 03/25/25 [...] inpatient stay. Pt was originally transferred to [facility] for a suspected SBO. Patient has frequent [...] % (Auto) 76.6, Lymph % (Auto) 12.4, Dickey % (Auto) 9.0, Eos % (Auto) 1.8, Baso % (Auto) 0.2, Nucleat RBC Rel Count 0.1, Neut # (Auto) 5.5, Lymph # (Auto) 0.9 L, Dickey # (Auto) 0.6, Eos # (Auto) 0.1, [...] 36 Signed By: <Electronically signed by Arya Peña DO> 03/25/[address] [facility] Work Phone: Reason for referral (narrative)No reason for referral information availableKettering Health [facility]al [facility] Center Work Phone: Advance Directives TypeDate RecordedPatient RepresentativeExplanationAdvance Directive(s)09/10/2009 10:04 PM Advance [...] ml/min October 29, 2024 9:07am Hyperlipidemia, mixed May 28th, 2025 9:0 7am Hypertensive chronic kidney disease with [...] Amb Documentation March 25, 2025 2 :18pm Wellness/[facility] f/u April 03, 2025 8 :08am Reason [...] or prosecute any alcohol or drug abuse patient.[facility] CenterIn the event this information is protected by the Federal Confidentiality of Alcohol and Drug Abuse Patient Records regulations: The Federal rules restrict any use of the information to criminally investigate or prosecute any alcohol or drug abuse patient.[facility] CenterIn the event this information is protected by the Federal Confidentiality of Alcohol and Drug Abuse Patient Records regulations: The Federal rules restrict any use of the information to criminally investigate or prosecute any alcohol or drug abuse patient.[facility] CenterIn the event this information is protected by the Federal Confidentiality of Alcohol and Drug Abuse Patient Records regulations: The Federal rules restrict any use of the information to criminally investigate or prosecute any alcohol or drug abuse patient.[facility] Reason for Visit (unrecogniz ed section and content) ReasonCommentsport issuesReasonCommentsTreatment PlanningReasonCommentsLab OrdersReasonCommentsSkin Check Care Teams (unrecognized sec tion and content) Personnel Name: BERNARDO TEJADA GERRY Address: [address] [facility], [address] Telecom: Team Status: Active Member Role Status Freddy Chang DO Primary Care Provider Active Team Status: Inactive Member Role Status Freddy Chang DO Primary Care Provider Active Start: October 29, 2024 End: October 29bdAnyi Acevesending ProviderActiveStart: October 29, 2024 End: October 29, 2024 Team Status: Inactive Member Role Status Freddy Chang DO Primary Care Provider Active Start: November 28, 2024 End: November 28paco Chang DOAttvish ProviderActiveStart: November 28, 2024 End: November 28, 2024 Team Status: Inactive Member Role Status Freddy Chang DO Primary Care Provider Active Start: January 02, 2025 End: January 02enkamini Chang DOAttvish ProviderActiveStart: January 02, 2025 End: January 02, 2025 Team Status: Active Member Role Status Freddy Chang DO Primary Care Provider Active Start: January 19, 2025 Vaishalitomy Howell MDAttending ProviderActiveStart: January 19, 2025 Team Status: Inactive Member Role Status Freddy Chang DO Primary Care Provider Active Start: January 26, 2025 End: January 26bdtomy Howell MDAttending ProviderActiveStart: January 26, 2025 End: [...] Care Provider Active Start: October 20, 2024 Joseline Perez ProviderActiveStart: October 20, 2024 Team Status: Active Member Role Status Dates Gerry Chang DO Primary Care Provider Active Start: October 24, 2024 Hema Cruz ProviderActiveStart: October 24, 2024 Team Status: Inactive [...] DateEnd Date Gerry Chang, DO [address] [place] [address] PCP - General09/07/09Team MemberRelationshipSpecialtyStart DateEnd Date Gerry Chang, DO [address] [place] [place] [address] PCP - General09/07/09Team MemberRelationshipSpecialtyStart DateEnd Date Gerry Chang, DO [address] [place] [address] PCP - General09/07/09Team MemberRelationshipSpecialtyStart DateEnd Date Gerry Chang, DO [address] [place] [address] PCP - General09/07/09 Team Status: Active Member Role Status Dates [...] Active Start: August 22, 2023 End: August 21enkmaini Nelson , DOAttending ProviderActiveStart: August 22, 2023 End: August 22, 2023 Team Status: Inactive Member Role Status Dates Gerry Chang DO Primary Care Provider Active Start: August 28, 2023 End: August 27enkamini Nelson , DOAttending ProviderActiveStart: August 28, 2023 [...] GeneralInternal Medicine08/04/23 Destiny Gant MD [address] [address] [place] [address] Referring PhysicianDermatology10/31/23 Gerry Nelson DO [address] [place] [address] Otolaryngology10/31/23Team MemberRelationshipSpecialtyStart DateEnd Date Gerry Chang MD PCP - GeneralInternal Medicine08/04/23 Destiny Gant MD [address] [place] [address] Referring PhysicianDermatology10/31/23 Gerry Nelson DO [address] [place] [address] Otolaryngology10/31/23 Team Status: Inactive Member Role Status [...] Active Start: July 14, 2024 Vaishali Lynda , MDAttending ProviderActiveStart: July 14, 2024 Team Status: Inactive Member Role Status Dates Gerry Chang DO Primary Care Provider Active Start: July 21, 2024 End: July 21bdul Lynda , MDAttending ProviderActiveStart: July 21, 2024 End: July [...] January 02, 2025 End: January 02paco Chang , DOAttending ProviderActiveStart: January 02, 2025 End: [...] Active Start: March 23, 2025 Guillermo Masterson , DOAttending ProviderActiveStart: March 23, 2025 Team Status: Inactive Member Role/Relationship Status Dates Guillermo Masterson DO Attending Provider Active S tart: March 23, 2025 End: March 23, 2025 Team Status: Active Member Role/Relationship Status Dates Gerry Chang DO Primary Care Provider Active Start: March 24, 2025 Moise Walker , MDAdmit ProviderActiveStart: March 24, 2025 Arya Peña DOOther ProviderActiveStart: March 24, 2025 Danna Murphy ProviderActiveStart: March 24, 2025 Damaso Arellano DOOther ProviderActiveStart: March 24, 2025 Joseline Torres ProviderActiveStart: March 24, 2025 Team Status: Inactive Member Role/Relationship Status Dates Gerry Chang DO Primary Care Provider Active Start: March 24, 2025 End: March 25, 2025DaJoseph Albarado ProviderActiveStart: March 24, 2025 End: March 25ndJoseline Lowery ProviderActiveStart: March 24, 2025 End: March 25, 2025Team MemberRelationshipSpecialtyStart DateEnd Date Gerry Chang DO [address] [place] [id number] PCP - GeneralInternal Medicine08/04/23 Destiny Gant MD [address] [place] [address] Referring PhysicianDermatology10/31/23 Gerry Nelson DO [address] [place] [address] Otolaryngology10/31/23Team MemberRelationshipSpecialtyStart DateEnd Date Gerry Chang DO [address] [place] [id number] PCP - GeneralInternal Medicine08/04/23 Destiny Gant MD [address] [place] [address] Referring PhysicianDermatology10/31/23 Gerry Nelson DO [address] [place] [address] Otolaryngology10/31/23 Team Status: Active Member Role/Relationship Status [...] February 05, 2025 End: February 05paco Chang , DOAttending ProviderActiveStart: February 05, 2025 End: February 05, 2025 Team Status: Inactive Member Role/Relationship Status Dates eGrry Chang DO Primary Care Provider Active Start: [...] Start: March 24, 2025 End: March 25, 2025Moise Walker MDAdmhannah ProviderActiveStart: March 24, 2025 End: March 25ndhernan Aguilar MDAttending ProviderActiveStart: March 24, 2025 End: March 25, 2025 Team Status: Active Member Role/Relationship Status Dates Gerry Chang DO Primary Care Provider Active Start: March 25, 2025 Cynthia Dasilva CMAAttending ProviderActiveStart: March 25, 2025 Team Status: Inactive Member Role/Relationship Status Dates Gerry Chang DO Primary Care Provider Active Start: April 03, 2025 End: April 03catrachitoCesar Manning ProviderActiveStart: April 03, 2025 End: April 03, 2025 (unrecognized sect ion and content) No Status Records FoundNo Status Records FoundNo Status Records FoundNo Status Records FoundNo Status Records FoundNo Status Records FoundNo Status Records Found INFORMATION SOURCE (unrecogn ized section and content) DATE CREATED AUTHOR 03/05/2022 [facility] DATE CREATED AUTHOR AUTHOR'S ORGANIZ ATION 10/18/2022 [facility] DATE CREATED AUTHOR AUTHOR'S ORGANIZ ATION 11/14/2024 [facility] DATE CREATED AUTHOR AUTHOR'S ORGANIZ ATION 01/28/2025 [facility] DATE CREATED AUTHOR AUTHOR'S ORGANIZ ATION 03/28/2025 [facility] DATE CREATED AUTHOR AUTHOR'S ORGANIZ ATION 04/03/2025 [facility] DATE CREATED AUTHOR AUTHOR'S ORGANIZ ATION 04/12/2025 [facility] Goals (unrecognized section and content) Type Treatment [...] BE BASED ON THE PRIMARY CLINICAL RECORDS. [employer] [facility]. provides no warranty or guarantee of the accuracy or completeness of information in this document.
--- OUTSIDE RECORDS SUMMARY | 2025-04-16 07:17 | XMS_ITS ---
Author Organization [facility] Address [address] [place] [address] Care Team Providers Care Information Systems Planner Name Role Phone Gerry Barton DO Primary Care Provider [phone] Active Problems ProblemNoted DateDiagnosed DateCentral line iugjjsj76/20/2022Diabetes mellitus 05/02/2019 Overview (05/02/2019): A/p: -Q6 Accuchecks -ISS BPH (benign prostatic hyperplasia)09/21/20093344Lpeuingdcet03/06/2010Drug-induced xiqcutooyjar28/06/2010 Overview (09/07/2009): chemotherapy Fever09/07/2009NHL (non-Hodgkin's lymphoma)08/27/2009 Overview (09/22/2009): Day: Protocol(s): Preparative regimen: Bu/Cy/FISH HATCHERY INSPECTOR Mobilization regimen: FISH HATCHERY INSPECTOR/G Stem cell source: PSC CD34 cell dose [...] SCDs, SQH D/c planning: RNF Small bowel [id number]
[2025-04-16 07:45] LABS: Hematocrit 33.8 % (42.0-54.0); Hemoglobin 11.7 g/dL (14.0-18.0); Mean Corpuscular HGB Conc 34.6 g/dL (29.9-35.2); Mean Corpuscular Hemoglobin 33.3 pg (25.9-34.0); Mean Corpuscular Volume 96.3 fL (80.0-94.0); Platelet Count 145 10^3/uL (150-450); Red Blood Count 3.51 10^6/uL (4.70-6.10); White Blood Count 6.3 10^3/uL (4.0-11.0)
[2025-04-16 09:18] LABS: Albumin Level 3.7 g/dL (3.4-5.0); Anion Gap 12.3; Blood Urea Nitrogen 52.0 mg/dL (7.0-18.0); Calcium 8.8 mg/dL (8.5-10.1); Carbon Dioxide 23.8 mmol/L (21.0-32.0); Chloride 106 mmol/L (98-107); Estimated GFR (African America 23 (>=60 mL/min/1.73m^2); Estimated GFR (Non-African Ame 19 (>=60 mL/min/1.73m^2); Glucose 151 mg/dL (74-106); Magnesium 1.9 mg/dL (1.8-2.4); Potassium 5.1 mmol/L (3.5-5.1); Sodium 137 mmol/L (136-145); Uric Acid 5.0 mg/dL (3.5-7.2)
[2025-04-16 09:38] LABS: Iron 63.0 ug/dL (65.0-175.0); Percent Iron Saturation 24.3 %; Total Iron Binding Capacity 259.0 ug/dL (250.0-450.0)
[2025-04-16 10:13] LABS: Ferritin 209.0 ng/mL (26.0-388.0)
== END 2025-04-16 07:12 | disposition home or self-care (01) ==
PROVIDERS: PCP Internal Medicine; Visit Provider Internal Medicine
DX: N25.81 Secondary hyperparathyroidism of renal origin (principal); E87.5 Hyperkalemia; E83.42 Hypomagnesemia; N18.9 Chronic kidney disease, unspecified; D63.1 Anemia in chronic kidney disease; I12.9 Hypertensive chronic kidney disease with stage 1 through stage 4 chronic kidney disease, or unspecified chronic kidney disease
CPT/HCPCS: 36415; 80069; 82306; 82728; 83540; 83550; 83735; 83970; 84550; 85027